=== PATIENT | female | born 1965 | race American Indian/Alaskan Native ===

== ENCOUNTER → 2017-03-18 | Outpatient (CLI) | payer BC ==
[~2017-03-18] MED LIST: ALBU2.5V4 INH; ALBU8.5HRX INH; AMLO5TAB2 PO; ASPI325T32 PO; BUPR1FIL3 PO; CLOR15TA PO; CLOR7.5T3 PO; FAMO20TA5 PO; FLUT1DIS26 IH; FOLI1TAB24 PO; LISI1TAB8 PO; MAGN400T6 PO; METO100T2 PO; MULT-166 PO; ONDA4TAB8 PO; PANT40TA PO; POLY255P PO; RANI150C4 PO; SULF-222 PO; THIA100T12 PO; TIOT18CA2 INH; TRET40CR2 TP; TRETINOIN TOP
--- NOTE | 2017-03-18 13:51 | Diagnostic Imaging Report ---
PROCEDURE: US abdomen complete. TECHNIQUE: Multiple real-time grayscale images were obtained over the abdomen in various projections. INDICATION: Pelvic and peroneal pain. Constipation. FINDINGS: The pancreas is obscured by bowel gas. The liver is hyperechoic and is enlarged measuring approximately 27 cm in craniocaudal/diagonal dimension. There is hepatopetal flow in the portal vein demonstrated. No focal hepatic mass. The gallbladder demonstrates no stones or wall thickening. No pericholecystic fluid. The sonographic Webb sign is reportedly negative. The CBD is obscured. The spleen is 9.5 cm in length. The right kidney is 11.2 and the left kidney is 10.8 cm in length. No hydronephrosis or focal lesion. No fluid collection is seen. The IVC is obscured. IMPRESSION: Hepatomegaly. The increased echogenicity in the liver could correlate with fatty infiltration or hepatitis. Correlate clinically. Dictated by: Dictated on workstation # [id number]
== END ==
LOC: RAD 09:17
PROVIDERS: ATTEND Nurse Practitioner Family
DX: R10.2 Pelvic and perineal pain (principal); K59.00 Constipation, unspecified; R14.0 Abdominal distension (gaseous); R10.11 Right upper quadrant pain; R10.12 Left upper quadrant pain; R16.0 Hepatomegaly, not elsewhere classified
CPT/HCPCS: 76700

== ENCOUNTER → 2017-03-19 | Outpatient (CLI) | payer BC ==
--- NOTE | 2017-03-19 17:56 | Diagnostic Imaging Report ---
Transabdominal and transvaginal percent. Indication bloating. Pelvic pain. History of hysterectomy Findings: There urinary bladder appears unremarkable. There is a no solid mass or focal lesion identified. No free fluid seen. The ovaries are reportedly surgically removed. Impression: No definite abnormality. Dictated by: Dictated on workstation # [id number]
== END ==
LOC: RAD 10:59
PROVIDERS: ATTEND Nurse Practitioner Family
DX: R10.2 Pelvic and perineal pain (principal); K59.00 Constipation, unspecified; R14.0 Abdominal distension (gaseous); R10.11 Right upper quadrant pain; R10.12 Left upper quadrant pain
CPT/HCPCS: 76830; 76856

== ENCOUNTER → 2017-12-15 | Outpatient (CLI) | payer BC ==
[~2017-12-15] MED LIST changes: +CATHETER FLUSH 10 ML SYR IV PRN; +IOHEXOL 350 MG/ML 100 ML (OMNIPAQUE 350) VIAL IV ONE; +NS 100 ML (IVPB) BAG IV ONE
[2017-12-15 13:51] LABS: BUN/CREATININE RATIO 13; CREATININE SERUM 0.79 MG/DL (0.60-1.30); GFR ESTIMATED > 60
--- NOTE | 2017-12-15 15:52 | Diagnostic Imaging Report ---
PROCEDURE: CT abdomen with contrast only. TECHNIQUE: Multiple contiguous axial images were obtained through the abdomen after the administration of intravenous contrast. INDICATION: Left upper quadrant pain, abdominal bloating, tenderness, and nausea. COMPARISON: 06/24/2016. FINDINGS: The lung bases are clear. Fatty hepatomegaly is an unchanged finding without biliary dilatation or visualized stone. The nonfocal spleen is unremarkable. The stomach is nondilated. There is some air within the abdominal small and large bowel without significant luminal dilatation. There is no ascites, abscess, hematoma, pneumatosis, or free air. The unobstructed kidneys are nonacute. The adrenals and pancreas are negative. The atherosclerotic aorta is nonaneurysmal. IMPRESSION: Fatty liver at the upper limits of size. Stable negative spleen. No bowel obstruction, ascites, or fluid collection. No free air. Negative unobstructed kidneys. Dictated by: Dictated on workstation # [id number]
--- NOTE | 2017-12-15 18:57 | Diagnostic Imaging Report ---
PROCEDURE: US right lower extremity venous. TECHNIQUE: Multiple real-time grayscale images were obtained over the right lower extremity in various projections. Additional duplex Doppler and color Doppler images were also obtained. INDICATION: Leg pain. COMPARISON: There are no prior studies available for comparison. FINDINGS: There is generally good blood flow and compressibility at all levels. There is no evidence for deep venous thrombosis. IMPRESSION: There is no evidence for deep venous thrombosis of the right lower extremity. Dictated by: Dictated on workstation # [id number]
== END ==
LOC: RAD 13:08
PROVIDERS: ATTEND Nurse Practitioner Family
DX: K76.0 Fatty (change of) liver, not elsewhere classified (principal); R14.0 Abdominal distension (gaseous); R11.0 Nausea
CPT/HCPCS: 36415; 74160; 82565; 84520

== ENCOUNTER → 2018-02-11 | Outpatient (CLI) | payer BC ==
[~2018-02-11] MED LIST changes: -CATHETER FLUSH 10 ML SYR IV PRN; -IOHEXOL 350 MG/ML 100 ML (OMNIPAQUE 350) VIAL IV ONE; -NS 100 ML (IVPB) BAG IV ONE
--- NOTE | 2018-02-11 13:24 | Diagnostic Imaging Report ---
INDICATION: Left lower chest pain. EXAMINATION: PA and lateral chest. FINDINGS: Heart size and pulmonary vascularity are normal. Lungs are clear. There are no effusions or pneumothoraces. IMPRESSION: Negative chest. Dictated by: Dictated on workstation # [id number]
--- NOTE | 2018-02-11 13:59 | Diagnostic Imaging Report ---
INDICATION: Back pain. Thoracic spine. FINDINGS: AP and lateral views of the thoracic spine show normal vertebral body height and alignment. Disc spaces are well maintained. Pedicles appear normal. IMPRESSION: Negative thoracic spine. Dictated by: Dictated on workstation # [id number]
== END ==
LOC: RAD 12:56
PROVIDERS: ATTEND Nurse Practitioner Family
DX: R07.89 Other chest pain (principal); M47.24 Other spondylosis with radiculopathy, thoracic region
CPT/HCPCS: 71046; 72072

== ENCOUNTER 2018-09-07 12:38 | Day surgery (SDC) | payer BC ==
[2018-09-07] VITALS (10 sets, daily range): BP systolic 113–176; BP diastolic 66–99
[~2018-09-07] VITALS: Ht 165.1 cm; Wt 98.9 kg
[~2018-09-07 12:38] MED LIST changes: -AMLO5TAB2 PO; +AMLO5TAB7 PO
--- OUTSIDE RECORDS SUMMARY | 2018-09-07 12:42 | XMS REPORT | Continuity of Care Document ---
Author Author [facility] Address Unknown Phone Unavailable Allergies Active Description Code Type Severity Reaction Onset Reported/Identified Relationship to Patient Clinical Status Yes doxycycline Drug Allergy 11/28/2009 Yes NKANo Known Allergies NKA Miscellaneous Allergy Unknown N/A 06/05/2015 Medications There is no data. Problems Date Dx Coded Attending Type Code Diagnosis Diagnosed By 04/13/2008 REYES GODINEZ DO 296.90 UNSPECIFIED EPISODIC MOOD DISORDER 10/11/2008 REYES GODINEZ DO 729.1 MYALGIA AND MYOSITIS UNSPECIFIED 11/13/2008 REYES GODINEZ DO 338.4 PAIN CHRONIC SYNDROME 11/13/2008 REYES GODINEZ DO 465.9 UPPER RESPIRATORY INFECTION 05/09/2009 REYES GODINEZ DO 716.90 ARTHRITIS/ ARTHROPATHY, UNSPECIFIED 06/27/2009 REYES GODINEZ DO 842.00 SPRAIN/STRAIN WRIST 11/28/2009 REYES GODINEZ DO 466.0 ACUTE BRONCHITIS 03/01/2010 REYES GODINEZ DO 535.50 GASTRITIS UNSPEC 03/01/2010 REYES GODINEZ DO 729.5 PAIN IN LIMB 10/02/2012 REYES GODINEZ DO V65.42 COUNSELING - SMOKING CESSATION 04/19/2015 TARA GARY MD Ot 305.1 TOBACCO USE DISORDER 04/19/2015 TARA GARY MD Ot 401.9 HYPERTENSION NOS 04/19/2015 TARA GARY MD Ot 496 CHR AIRWAY OBSTRUCT NEC 04/19/2015 TARA GARY MD Ot 518.0 PULMONARY COLLAPSE 04/19/2015 TARA GARY MD Ot 786.50 CHEST PAIN NOS 04/19/2015 TARA GARY MD Ot 790.29 OTHER ABNORMAL GLUCOSE 04/19/2015 TARA GARY MD Ot V03.82 PROPHYLACTIC VACC AGAINST STREPTOCOCCUS 04/19/2015 TARA GARY MD Ot 305.1 04/19/2015 TARA GARY MD Ot 401.9 04/19/2015 COOKIE SUERO, TARA Cerda Ot 496 04/19/2015 COOKIE SUERO, TARA Cerda Ot 518.0 04/19/2015 COOKIE SUERO, TARA Cerda Ot 786.50 04/19/2015 COOKIE SUERO, TARA Cerda Ot 790.29 04/19/2015 TARA GARY MD Ot V03.82 06/01/2015 CUBA COSTAE A SAP MOBILITY ARCHITECT Ot 397.0 06/01/2015 CUBA COSTAE A SAP MOBILITY ARCHITECT Ot 424.0 06/01/2015 IGOR MEICHELLE A SAP MOBILITY ARCHITECT Ot 785.1 06/01/2015 LANE OCSTACHELLE A SAP MOBILITY ARCHITECT Ot 786.05 06/05/2015 CUBA COSTAE A SAP MOBILITY ARCHITECT Ot 397.0 06/05/2015 CUBA COSTAE A SAP MOBILITY ARCHITECT Ot 424.0 06/05/2015 CUBA COSTAE A SAP MOBILITY ARCHITECT Ot 785.1 06/05/2015 IGOR CUBAE A SAP MOBILITY ARCHITECT Ot 786.05 06/05/2015 TARA GARY MD Ot V72.84 06/05/2015 TARA GARY MD Ot 305.1 TOBACCO USE DISORDER 06/05/2015 TARA GARY MD Ot 535.51 UNSPEC GASTRITIS GASTRODUODENITIS, W/ 06/05/2015 TARA GARY MD Ot 553.3 DIAPHRAGMATIC HERNIA 06/05/2015 TARA GARY MD Ot E935.3 ADV EFF SALICYLATES 06/05/2015 TARA GARY MD Ot V76.51 SCREEN MAL NEOP-COLON 06/18/2015 IGOR CUBAE A SAP MOBILITY ARCHITECT Ot 397.0 06/18/2015 IGOR CUBAE A SAP MOBILITY ARCHITECT Ot 424.0 06/18/2015 IGOR CUBAE A SAP MOBILITY ARCHITECT Ot 785.1 06/18/2015 IGOR CUBAE A SAP MOBILITY ARCHITECT Ot 786.05 06/18/2015 TARA GARY MD Ot V72.84 07/30/2015 LISSET BUSBY Ot F10.239 ALCOHOL DEPENDENCE WITH WITHDRAWAL, UNSP 07/30/2015 LISSET BUSBY Ot F17.210 NICOTINE DEPENDENCE, CIGARETTES, UNCOMPL 07/30/2015 LISSET BUSBY Ot F41.0 PANIC DISORDER WITHOUT AGORAPHOBIA 07/30/2015 LISSET BUSBY Ot I10 ESSENTIAL (PRIMARY) HYPERTENSION 07/30/2015 LISSET BUSBY Ot R00.2 PALPITATIONS 07/30/2015 LISSET BUSBY Ot Z91.14 PATIENT'S OTHER NONCOMPLIANCE WITH MEDIC 06/23/2016 IGORSHANTELL SAP MOBILITY ARCHITECT Ot 397.0 TRICUSPID VALVE DISEASE 06/23/2016 SHANTELL COSTA SAP MOBILITY ARCHITECT Ot 424.0 MITRAL VALVE DISORDER 06/23/2016 IGORSHANTELL SAP MOBILITY ARCHITECT Ot 785.1 PALPITATIONS 06/23/2016 IGORSHANTELL SAP MOBILITY ARCHITECT Ot 786.05 SHORTNESS OF BREATH 06/23/2016 COOKIE SUERO, TARA Cerda Ot V72.84 EXAM PRE-OPERATIVE NOS 06/25/2016 AR DOBROOKE Ot R14.0 ABDOMINAL DISTENSION (GASEOUS) 06/25/2016 BROOKE JOYNER DO Ot Z12.31 ENCNTR SCREEN MAMMOGRAM FOR MALIGNANT NE 07/02/2016 BROOKE JOYNER DO Ot R14.0 ABDOMINAL DISTENSION (GASEOUS) 07/02/2016 BROOKE JOYNER DO Ot Z12.31 ENCNTR SCREEN MAMMOGRAM FOR MALIGNANT NE 07/02/2016 BROOKE JOYNER DO D Ot J98.11 ATELECTASIS 07/02/2016 AR DO BROOKE D Ot R14.0 ABDOMINAL DISTENSION (GASEOUS) 07/23/2016 AR DO BROOKE D Ot R92.8 OTH ABN AND INCONCLUSIVE FINDINGS ON DX 07/24/2016 AR DO BROOKE D Ot R92.8 OTH ABN AND INCONCLUSIVE FINDINGS ON DX 08/06/2016 PRAFULBERGER DO BROOKE D Ot R92.8 OTH ABN AND INCONCLUSIVE FINDINGS ON DX 03/17/2017 BROOKE JOYNER DO D Ot R14.0 ABDOMINAL DISTENSION (GASEOUS) 03/17/2017 BROOKE JOYNER DO Ot Z12.31 ENCNTR SCREEN MAMMOGRAM FOR MALIGNANT NE 03/17/2017 BROOKE JOYNER DO D Ot R92.8 OTH ABN AND INCONCLUSIVE FINDINGS ON DX 03/19/2017 HEIDI HARTLEY HIDE WORKER Ot K59.00 CONSTIPATION, UNSPECIFIED 03/19/2017 NAEEM, HEIDI N HIDE WORKER Ot R10.11 RIGHT UPPER QUADRANT PAIN 03/19/2017 NAEEM, HEIDI N HIDE WORKER Ot R10.12 LEFT UPPER QUADRANT PAIN 03/19/2017 NAEEM, HEIDI N HIDE WORKER Ot R10.2 PELVIC AND PERINEAL PAIN 03/19/2017 NAEEM, HEIDI N HIDE WORKER Ot R14.0 ABDOMINAL DISTENSION (GASEOUS) 03/19/2017 NAEEM, HEIDI N HIDE WORKER Ot R16.0 HEPATOMEGALY, NOT ELSEWHERE CLASSIFIED 03/21/2017 NAEEM, HEIDI N HIDE WORKER Ot K59.00 CONSTIPATION, UNSPECIFIED 03/21/2017 NAEEM, HEIDI N HIDE WORKER Ot R10.11 RIGHT UPPER QUADRANT PAIN 03/21/2017 NAEEM, HEIDI N HIDE WORKER Ot R10.12 LEFT UPPER QUADRANT PAIN 03/21/2017 NAEEM, HEIDI N HIDE WORKER Ot R10.2 PELVIC AND PERINEAL PAIN 03/21/2017 NAEEM, HEIDI N HIDE WORKER Ot R14.0 ABDOMINAL DISTENSION (GASEOUS) 03/25/2017 NAEEM, HEIDI N HIDE WORKER Ot K59.00 CONSTIPATION, UNSPECIFIED 03/25/2017 NAEEM, HEIDI N HIDE WORKER Ot R10.11 RIGHT UPPER QUADRANT PAIN 03/25/2017 NAEEM, HEIDI N HIDE WORKER Ot R10.12 LEFT UPPER QUADRANT PAIN 03/25/2017 NAEEM, HEIDI N HIDE WORKER Ot R10.2 PELVIC AND PERINEAL PAIN 03/25/2017 NAEEM, HEIDI N HIDE WORKER Ot R14.0 ABDOMINAL DISTENSION (GASEOUS) 03/25/2017 NAEEM, HEIDI N HIDE WORKER Ot R16.0 HEPATOMEGALY, NOT ELSEWHERE CLASSIFIED 03/25/2017 ANEEM, HEIDI N HIDE WORKER Ot K59.00 CONSTIPATION, UNSPECIFIED 03/25/2017 NAEEM, HEIDI N HIDE WORKER Ot R10.11 RIGHT UPPER QUADRANT PAIN 03/25/2017 NAEEM, HEIDI N HIDE WORKER Ot R10.12 LEFT UPPER QUADRANT PAIN 03/25/2017 NAEEM, HEIDI N HIDE WORKER Ot R10.2 PELVIC AND PERINEAL PAIN 03/25/2017 NAEEM, HEIDI N HIDE WORKER Ot R14.0 ABDOMINAL DISTENSION (GASEOUS) 03/25/2017 NAEEM, HEIDI N HIDE WORKER Ot K59.00 CONSTIPATION, UNSPECIFIED 03/25/2017 NAEEM, HEIDI N HIDE WORKER Ot R10.11 RIGHT UPPER QUADRANT PAIN 03/25/2017 NAEEM, HEIDI N HIDE WORKER Ot R10.12 LEFT UPPER QUADRANT PAIN 03/25/2017 NAEEM, HEIDI N HIDE WORKER Ot R10.2 PELVIC AND PERINEAL PAIN 03/25/2017 HEIDI HARTLEY Yuan HIDE WORKER Ot R14.0 ABDOMINAL DISTENSION (GASEOUS) 03/25/2017 NAEEM HEIDI Bolden HIDE WORKER Ot R16.0 HEPATOMEGALY, NOT ELSEWHERE CLASSIFIED 03/25/2017 HEIDI HARTLEY Yuan HIDE WORKER Ot K59.00 CONSTIPATION, UNSPECIFIED 03/25/2017 HEIDI HARTLEY Yuan HIDE WORKER Ot R10.11 RIGHT UPPER QUADRANT PAIN 03/25/2017 NAEEM HEIDI Bolden HIDE WORKER Ot R10.12 LEFT UPPER QUADRANT PAIN 03/25/2017 NAEEM HEIDI Bolden HIDE WORKER Ot R10.2 PELVIC AND PERINEAL PAIN 03/25/2017 NAEEM HEIDI Bolden HIDE WORKER Ot R14.0 ABDOMINAL DISTENSION (GASEOUS) 04/01/2017 HEIDI HARTLEY HIDE WORKER Ot K59.00 CONSTIPATION, UNSPECIFIED 04/01/2017 NAEEMHEIDI HIDE WORKER Ot R10.11 RIGHT UPPER QUADRANT PAIN 04/01/2017 NAEEM HEIDI Bolden HIDE WORKER Ot R10.12 LEFT UPPER QUADRANT PAIN 04/01/2017 HEIDI HARTLEY HIDE WORKER Ot R10.2 PELVIC AND PERINEAL PAIN 04/01/2017 NAEEMHEIDI HIDE WORKER Ot R14.0 ABDOMINAL DISTENSION (GASEOUS) 04/01/2017 HEIDI HARTLEY Yuan HIDE WORKER Ot R16.0 HEPATOMEGALY, NOT ELSEWHERE CLASSIFIED 04/01/2017 NAEEM HEIDI Bolden HIDE WORKER Ot K59.00 CONSTIPATION, UNSPECIFIED 04/01/2017 NAEEM HEIDI Yuan HIDE WORKER Ot R10.11 RIGHT UPPER QUADRANT PAIN 04/01/2017 HEIDI HARTLEY Yuan HIDE WORKER Ot R10.12 LEFT UPPER QUADRANT PAIN 04/01/2017 HEIDI HARTLEY HIDE WORKER Ot R10.2 PELVIC AND PERINEAL PAIN 04/01/2017 HEIDI HARTLEY HIDE WORKER Ot R14.0 ABDOMINAL DISTENSION (GASEOUS) 12/07/2017 BROOKE JOYNER DO Ot R14.0 ABDOMINAL DISTENSION (GASEOUS) 12/07/2017 BROOKE JOYNER DO Ot Z12.31 ENCNTR SCREEN MAMMOGRAM FOR MALIGNANT NE 12/07/2017 BROOKE JOYNER DO Ot R92.8 OTH ABN AND INCONCLUSIVE FINDINGS ON DX 12/07/2017 HEIDI HARTLEY HIDE WORKER Ot K59.00 CONSTIPATION, UNSPECIFIED 12/07/2017 HEIDI HARTLEY HIDE WORKER Ot R10.11 RIGHT UPPER QUADRANT PAIN 12/07/2017 NAEEM, HEIDI N HIDE WORKER Ot R10.12 LEFT UPPER QUADRANT PAIN 12/07/2017 NAEEM, HEIDI N HIDE WORKER Ot R10.2 PELVIC AND PERINEAL PAIN 12/07/2017 NAEEM, HEIDI N HIDE WORKER Ot R14.0 ABDOMINAL DISTENSION (GASEOUS) 12/07/2017 HEIDI HARTLEY N HIDE WORKER Ot R16.0 HEPATOMEGALY, NOT ELSEWHERE CLASSIFIED 12/07/2017 HEIDI HARTLEY N HIDE WORKER Ot K59.00 CONSTIPATION, UNSPECIFIED 12/07/2017 HEIDI HARTLEY N HIDE WORKER Ot R10.11 RIGHT UPPER QUADRANT PAIN 12/07/2017 HEIDI HARTLEY N HIDE WORKER Ot R10.12 LEFT UPPER QUADRANT PAIN 12/07/2017 NAEEM, HEIDI N HIDE WORKER Ot R10.2 PELVIC AND PERINEAL PAIN 12/07/2017 NAEEM HEIDI N HIDE WORKER Ot R14.0 ABDOMINAL DISTENSION (GASEOUS) 12/09/2017 BROOKE JOYNER DO Ot R14.0 ABDOMINAL DISTENSION (GASEOUS) 12/09/2017 BROOKE JOYNER DO Ot Z12.31 ENCNTR SCREEN MAMMOGRAM FOR MALIGNANT NE 12/09/2017 BROOKE JOYNER DO Ot R92.8 OTH ABN AND INCONCLUSIVE FINDINGS ON DX 12/09/2017 HEIDI HARTLEY Yuan HIDE WORKER Ot K59.00 CONSTIPATION, UNSPECIFIED 12/09/2017 HEIDI HARTLEY N HIDE WORKER Ot R10.11 RIGHT UPPER QUADRANT PAIN 12/09/2017 HEIDI HARTLEY N HIDE WORKER Ot R10.12 LEFT UPPER QUADRANT PAIN 12/09/2017 HEIDI HARTLEY Yuan HIDE WORKER Ot R10.2 PELVIC AND PERINEAL PAIN 12/09/2017 NAEEM HEIDI Yuan HIDE WORKER Ot R14.0 ABDOMINAL DISTENSION (GASEOUS) 12/09/2017 HEIDI HARTLEY Yuan HIDE WORKER Ot R16.0 HEPATOMEGALY, NOT ELSEWHERE CLASSIFIED 12/09/2017 HEIDI HARTLEY N HIDE WORKER Ot K59.00 CONSTIPATION, UNSPECIFIED 12/09/2017 HEIDI HARTLEY N HIDE WORKER Ot R10.11 RIGHT UPPER QUADRANT PAIN 12/09/2017 HEIDI HARTLEY N HIDE WORKER Ot R10.12 LEFT UPPER QUADRANT PAIN 12/09/2017 NAEEM, HEIDI N HIDE WORKER Ot R10.2 PELVIC AND PERINEAL PAIN 12/09/2017 HEIDI HARTLEY N HIDE WORKER Ot R14.0 ABDOMINAL DISTENSION (GASEOUS) 12/16/2017 NAEEM HEIDI N HIDE WORKER Ot K76.0 FATTY (CHANGE OF) LIVER, NOT ELSEWHERE C 12/16/2017 HEIDI HARTLEY Yuan HIDE WORKER Ot R11.0 NAUSEA 12/16/2017 HEIDI HARTLEY N HIDE WORKER Ot R14.0 ABDOMINAL DISTENSION (GASEOUS) 12/30/2017 HEIDI HARTLEY Yuan HIDE WORKER Ot K76.0 FATTY (CHANGE OF) LIVER, NOT ELSEWHERE C 12/30/2017 HEIDI HARTLEY N HIDE WORKER Ot R11.0 NAUSEA 12/30/2017 HEIDI HARTLEY Yuan HIDE WORKER Ot R14.0 ABDOMINAL DISTENSION (GASEOUS) 02/25/2018 HEIDI HARTLEY N HIDE WORKER Ot 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, TH 02/25/2018 HEIDI HARTLEY N HIDE WORKER Ot R07.89 OTHER CHEST PAIN 05/31/2018 BROOKE JOYNER DO Ot R14.0 ABDOMINAL DISTENSION (GASEOUS) 05/31/2018 BROOKE JOYNER DO Ot Z12.31 ENCNTR SCREEN MAMMOGRAM FOR MALIGNANT NE 05/31/2018 BROOKE JOYNER DO Ot R92.8 OTH ABN AND INCONCLUSIVE FINDINGS ON DX 05/31/2018 HEIDI HARTLEY Yuan HIDE WORKER Ot K59.00 CONSTIPATION, UNSPECIFIED 05/31/2018 HEIDI HARTLEY N HIDE WORKER Ot R10.11 RIGHT UPPER QUADRANT PAIN 05/31/2018 NAEEM HEIDI N HIDE WORKER Ot R10.12 LEFT UPPER QUADRANT PAIN 05/31/2018 NAEEM HEIDI N HIDE WORKER Ot R10.2 PELVIC AND PERINEAL PAIN 05/31/2018 HEIDI HARTLEY N HIDE WORKER Ot R14.0 ABDOMINAL DISTENSION (GASEOUS) 05/31/2018 NAEEM HEIDI Yuan HIDE WORKER Ot R16.0 HEPATOMEGALY, NOT ELSEWHERE CLASSIFIED 05/31/2018 HEIDI HARTLEY Yuan HIDE WORKER Ot K59.00 CONSTIPATION, UNSPECIFIED 05/31/2018 NAEEM HEIDI N HIDE WORKER Ot R10.11 RIGHT UPPER QUADRANT PAIN 05/31/2018 NAEEM HEIDI N HIDE WORKER Ot R10.12 LEFT UPPER QUADRANT PAIN 05/31/2018 NAEEM HEIDI N HIDE WORKER Ot R10.2 PELVIC AND PERINEAL PAIN 05/31/2018 NAEEM, HEIDI N HIDE WORKER Ot R14.0 ABDOMINAL DISTENSION (GASEOUS) 05/31/2018 HEIDI HARTLEY Yuan HIDE WORKER Ot K76.0 FATTY (CHANGE OF) LIVER, NOT ELSEWHERE C 05/31/2018 HEIDI HARTLEY N HIDE WORKER Ot R11.0 NAUSEA 05/31/2018 NAEEM HEIDI Bolden HIDE WORKER Ot R14.0 ABDOMINAL DISTENSION (GASEOUS) 05/31/2018 NAEEM HEIDI Bolden HIDE WORKER Ot 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, TH 05/31/2018 NAEEM HEIDI Bolden HIDE WORKER Ot R07.89 OTHER CHEST PAIN 06/04/2018 DEFFENBAUGH DO, KONG D Ot K57.30 DVRTCLOS OF LG INT W/O PERFORATION OR AB 06/04/2018 DEFFENBAUGH DO, OKNG D Ot K76.0 FATTY (CHANGE OF) LIVER, NOT ELSEWHERE C 06/04/2018 DEFFENBAUGH DO, KONG D Ot R14.0 ABDOMINAL DISTENSION (GASEOUS) 06/04/2018 DEFFENBAUGH DO, KONG D Ot R19.7 DIARRHEA, UNSPECIFIED 06/16/2018 DEFFENBAUGH DO, KONG D Ot D64.9 ANEMIA, UNSPECIFIED 06/16/2018 DEFFENBAUGH DO, KONG D Ot K76.9 LIVER DISEASE, UNSPECIFIED 06/16/2018 DEFFENBAUGH DO, KONG D Ot R16.0 HEPATOMEGALY, NOT ELSEWHERE CLASSIFIED 06/16/2018 DEFFENBAUGH DO, KONG D Ot R53.83 OTHER FATIGUE 06/16/2018 DEFFENBAUGH DO, KONG D Ot R68.2 DRY MOUTH, UNSPECIFIED 06/16/2018 DEFFENBAUGH DO, KONG D Ot R79.9 ABNORMAL FINDING OF BLOOD CHEMISTRY, UNS 06/16/2018 DEFFENBAUGH DO, KONG D Ot K57.30 DVRTCLOS OF LG INT W/O PERFORATION OR AB 06/16/2018 DEFFENBAUGH DO, KONG D Ot K76.0 FATTY (CHANGE OF) LIVER, NOT ELSEWHERE C 06/16/2018 DEFFENBAUGH DO, KONG D Ot R14.0 ABDOMINAL DISTENSION (GASEOUS) 06/16/2018 DEFFENBAUGH DO, KONG D Ot R19.7 DIARRHEA, UNSPECIFIED Procedures There is no data. Results Test Result Range [id number] - 06/24/16 11:05 Serum or plasma urea nitrogen measurement (mass/volume) 9 mg/dL 7-18 Serum or plasma creatinine measurement (mass/volume) 0.99 mg/dL 0.60-1.30 Serum or plasma urea nitrogen/creatinine mass ratio 9 NRG Serum or plasma creatinine measurement with calculation of estimated glomerular filtration rate 59 NRG [id number] - 12/15/17 13:26 Serum or plasma urea nitrogen measurement (mass/volume) 10 mg/dL 7-18 Serum or plasma creatinine measurement (mass/volume) 0.79 mg/dL 0.60-1.30 Serum or plasma urea nitrogen/creatinine mass ratio 13 NRG Serum or plasma creatinine measurement with calculation of estimated glomerular filtration rate > NRG Complete blood count (CBC) with automated white blood cell (WBC) differential - 05/31/18 16:20 Blood leukocytes automated count (number/volume) 7.2 10*3/uL 4.3-11.0 Blood erythrocytes automated count (number/volume) 4.45 10*6/uL 4.35-5.85 Venous blood hemoglobin measurement (mass/volume) 14.7 g/dL 11.5-16.0 Blood hematocrit (volume fraction) 44 % 35-52 Automated erythrocyte mean corpuscular volume 99 [foz_us] 80-99 Automated erythrocyte mean corpuscular hemoglobin (mass per erythrocyte) 33 pg 25-34 Automated erythrocyte mean corpuscular hemoglobin concentration measurement ( mass/volume) 34 g/dL 32-36 Automated erythrocyte distribution width ratio 13.5 % 10.0-14.5 Automated blood platelet count (count/volume) 247 10*3/uL 130-400 Automated blood platelet mean volume measurement 9.2 [foz_us] 7.4-10.4 Automated blood neutrophils/100 leukocytes 70 % 42-75 Automated blood lymphocytes/100 leukocytes 23 % 12-44 Blood monocytes/100 leukocytes 5 % 0-12 Automated blood eosinophils/100 leukocytes 2 % 0-10 Automated blood basophils/100 leukocytes 0 % 0-10 Blood neutrophils automated count (number/volume) 5.0 10*3 1.8-7.8 Blood lymphocytes automated count (number/volume) 1.6 10*3 1.0-4.0 Blood monocytes automated count (number/volume) 0.4 10*3 0.0-1.0 Automated eosinophil count 0.1 10*3/uL 0.0-0.3 Automated blood basophil count (count/volume) 0.0 10*3/uL 0.0-0.1 Comprehensive metabolic panel - 05/31/18 16:20 Serum or plasma sodium measurement (moles/volume) 139 mmol/L 135-145 Serum or plasma potassium measurement (moles/volume) 3.7 mmol/L 3.6-5.0 Serum or plasma chloride measurement (moles/volume) 97 mmol/L 98-107 Carbon dioxide 32 mmol/L 21-32 Serum or plasma anion gap determination (moles/volume) 10 mmol/L 5-14 Serum or plasma urea nitrogen measurement (mass/volume) 7 mg/dL 7-18 Serum or plasma creatinine measurement (mass/volume) 0.79 mg/dL 0.60-1.30 Serum or plasma urea nitrogen/creatinine mass ratio 9 NRG Serum or plasma creatinine measurement with calculation of estimated glomerular filtration rate > NRG Serum or plasma glucose measurement (mass/volume) 123 mg/dL 70-105 Serum or plasma calcium measurement (mass/volume) 9.6 mg/dL 8.5-10.1 Serum or plasma total bilirubin measurement (mass/volume) 0.7 mg/dL 0.1-1.0 Serum or plasma alkaline phosphatase measurement (enzymatic activity/volume) 126 U/L 40-136 Serum or plasma aspartate aminotransferase measurement (enzymatic activity/ volume) 81 U/L 5-34 Serum or plasma alanine aminotransferase measurement (enzymatic activity/volume ) 57 U/L 0-55 Serum or plasma protein measurement (mass/volume) 6.6 g/dL 6.4-8.2 Serum or plasma albumin measurement (mass/volume) 4.0 g/dL 3.2-4.5 CALCIUM CORRECTED 9.6 mg/dL 8.5-10.1 Serum or plasma C reactive protein measurement (mass/volume) - 05/31/18 16:20 Serum or plasma C reactive protein measurement (mass/volume) 2.33 mg /dL 0.00-0.50 Erythrocyte sedimentation rate by westergren method - 05/31/18 16:20 Erythrocyte sedimentation rate by westergren method 6 mm 0-30 Acute hepatitis panel - 05/31/18 16:20 Confirmatory quantitative serum or plasma hepatitis B virus surface antigen measurement Non-Reactive Non-Reactive Hepatitis A virus IgM antibody assay Non-Reactive Non- Reactive Hepatitis B virus core IgM antibody assay Non-Reactive Non-Reactive Serum hepatitis C virus antibody detection Non-Reactive Non-Reactive Scl-70 antibody assay - 05/31/18 16:20 [id number] Negative Negative Scl-70 ab < % 0.0-19.9 Serum or plasma porphyrins measurement (mass/volume) - 05/31/18 16:20 PORPHYRINS TOTAL SERUM <10 0-15 Interpretation of serum or plasma porphyrins measurement Negative NRG Encounters ACCT No. Visit Date/Time Discharge Status Pt. Type Provider Facility Loc./Unit Complaint [id number] 10/02/2012 09:30:00 10/02/2012 23:59:59 CLS Outpatient REYES GODINEZ DO [id number] 06/05/2015 08:36:13 ACT Document Registration [id number] 06/03/2018 08:59:00 06/03/2018 23:59:59 CLS Outpatient DEFFENBAKONG FERRELL DO [facility] RAD LEFT UPPER QUAD PAIN, LARGE LIVER,DIARRHEA [id number] 05/31/2018 15:51:00 05/31/2018 23:59:59 CLS Outpatient DEFFENKONG LANCE DO [facility] LAB LEFT UPPER QUADRANT PAIN [id number] 02/11/2018 12:56:00 02/11/2018 23:59:59 CLS Outpatient HEIDI HARTLEY HIDE WORKER [facility] RAD SPONDYLOSIS WITH RIDICULOPATHY [id number] 12/15/2017 13:08:00 12/15/2017 23:59:59 CLS Outpatient HEIDI HARTLEY HIDE WORKER [facility] RAD R10.12 LUQ PAIN [id number] 08/31/2017 08:29:00 08/31/2017 23:59:59 CLS Preadmit HEIDI HARTLEY HIDE WORKER [facility] RAD ACUTE EMBOLISM [id number] 07/23/2017 07:41:00 07/23/2017 23:59:59 CLS Preadmit HEIDI HARTLEY HIDE WORKER [facility] RAD SCREENING [id number] 03/19/2017 10:59:00 03/19/2017 23:59:59 CLS Outpatient HEIDI HARTLEY HIDE WORKER [facility] RAD PELVIC AND PERINEAL PAIN , CONSTIPATION [id number] 03/18/2017 09:17:00 03/18/2017 23:59:59 CLS Outpatient HEIDI HARTLEY HIDE WORKER [facility] RAD PELVIC AND PERINEAL PAIN , CONSTIPATION [id number] 07/23/2016 13:43:00 07/23/2016 23:59:59 CLS Outpatient BROOKE JOYNER DO Prashant [facility] RAD OTHER ABNORMAL FINDINGS ON DX [id number] 06/24/2016 11:02:00 06/24/2016 23:59:59 CLS Outpatient BROOKE JOYNER DO Prashant [facility] RAD ABDOMINAL DISTENSION [id number] 06/24/2016 10:52:00 06/24/2016 23:59:59 CLS Outpatient BROOKE JOYNER DO Prashant [facility] RAD SCREENING [id number] 07/30/2015 16:08:00 07/30/2015 19:46:00 DIS Emergency LISSET BUSBY [facility] ER HIGH BP/ALCOHOL WITHDRAWL [id number] 06/05/2015 08:35:00 06/05/2015 11:45:00 DIS Outpatient TARA GARY MD [facility] SDC SCREENING;GERD [id number] 06/01/2015 05:49:00 06/01/2015 23:59:59 CLS Outpatient TARA GARY MD [facility] PREOP SCREENING;GERD [id number] 04/18/2015 23:05:00 04/19/2015 17:45:00 DIS Inpatient TARA GARY MD [facility] CSD CHEST PAIN [id number] 12/27/2013 09:01:00 12/27/2013 23:59:59 CLS Outpatient SHANTELL COSTA [facility] CARD PALPITATIONS,SOB [id number] 06/18/2015 13:48:00 Document Registration [id number] 06/18/2015 13:48:00 Document Registration [id number] 06/18/2015 13:48:00 Document Registration
[2018-09-07] MEDS ORDERED: LIDOCAINE 1% INJ 20 ML 20 ML VIAL ONE (12:58)
[2018-09-07] MEDS ORDERED: NS IV 1000 ML 1,000 ML ONE (12:58)
[2018-09-07] MEDS ORDERED: HEParin (CATH LAB) 2,000 ML IV ONE (12:58)
[2018-09-07] MEDS ORDERED: NS IV 1000 ML 1,000 ML IV SCH ×2 (13:10→14:52)
[2018-09-07 13:23] LABS: HEMOGLOBIN 15.7 G/DL (11.5-16.0); MEAN PLATELET VOLUME 9.4 FL (7.4-10.4); RED BLOOD COUNT 4.76 10^6/uL (4.35-5.85); RED CELL DISTRIBUTION WIDTH 13.5 % (10.0-14.5); WHITE BLOOD COUNT 8.2 10^3/uL (4.3-11.0)
[2018-09-07] MEDS ORDERED: METO100T12 PO (13:38)
[2018-09-07 13:39] LABS: INR 0.9 (0.8-1.4); PROTHROMBIN TIME PATIENT 12.6 SEC (12.2-14.7)
[2018-09-07] MEDS ORDERED: LISI1TAB8 PO (13:39)
[2018-09-07] MEDS ORDERED: CLOR3.755 PO (13:40)
[2018-09-07 13:43] LABS: ALANINE AMINOTRANSFERASE 55 U/L (0-55); ALBUMIN 4.4 GM/DL (3.2-4.5); ALKALINE PHOSPHATASE 117 U/L (40-136); BILIRUBIN,TOTAL 1.1 MG/DL (0.1-1.0); BUN/CREATININE RATIO 11; CALCIUM 9.9 MG/DL (8.5-10.1); CARBON DIOXIDE 30 MMOL/L (21-32); CHLORIDE 96 MMOL/L (98-107); CHOLESTEROL 199 MG/DL (< 200); GFR ESTIMATED > 60; GLUCOSE 137 MG/DL (70-105); HDL CHOLESTEROL 42 MG/DL (40-60); POTASSIUM 3.7 MMOL/L (3.6-5.0); SODIUM 140 MMOL/L (135-145); TOTAL PROTEIN 7.3 GM/DL (6.4-8.2); TRIGLYCERIDES 267 MG/DL (<150); VLDL CHOLESTEROL 53 MG/DL (5-40)
[2018-09-07] MEDS ORDERED: FLU QUADRIvalent (5+ YOA) 2018-2019 (AFLURIA) 0.5 ML IM ONE (13:45)
[2018-09-07] MEDS ORDERED: fentaNYL INJECTION 100 MCG/2 ML AMP ONE (13:52)
[2018-09-07] MEDS ORDERED: MIDAZOLAM 5 MG/5 ML (VERSED) VIAL ONE (13:52)
--- NOTE | 2018-09-07 14:23 | Cardiac Procedure Note-CS/ASA ---
Pre-Procedure Note Pre-Op Procedure Note H&P Reviewed The H&P was reviewed, patient examined and no changes noted. Date H&P Reviewed: Sep 07, 2018 Time H&P Reviewed: 14:23 Conscious Sedation Pre-Proced Time 14:23 ASA Score 3 For ASA 3 and 4: Consider anesthesia and medical clearance. Also, for patients with a history of failed moderate sedation consider anesthesia. Airway Lungs Heart ASA score ASA 1: a normal healthy patient ASA 2: a patient with a mild systemic disease (mid diabetes, controlled hypertension, obesity ASA 3: a patient with a severe systemic disease that limits activity (angina , COPD, prior Myocardial infarction) ASA 4: a patient with an incapacitating disease that is a constant threat to life (CHF, renal failure) ASA 5: a moribund patient not expected to survive 24 hrs. (ruptured aneurysm) ASA 6: a declared brain patient whose organs are being harvested. For emergent operations, add the letter E after the classification Mallampati Classification Grade 2 Sedation Plan Analgesia, Amnesia, Plan communicated to team members, Discussed options with patient/fam, Discussed risks with patient/fam The patient is an appropriate candidate to undergo the planned procedure, sedation, and anesthesia. The patient immediately re-assessed prior to indication. JESS CONLEY MD FACP FAC CCDS Sep 07, 2018 14:23
[2018-09-07] MEDS ORDERED: ASPI-999 PO (14:56)
[2018-09-07] MEDS ORDERED: POTA-53 PO (14:56)
[2018-09-07] MEDS ORDERED: FURO40TA4 PO (14:56)
--- NOTE | 2018-09-07 14:56 | Discharge Inst-Cardiology ---
Discharge Inst-Cardiac Discharge Medications New Medications: Aspirin (Aspirin) 81 Mg Tab.chew 81 MG PO DAILY, #90 TAB 3 Refills Furosemide (Furosemide) 40 Mg Tablet 40 MG PO DAILY, #30 TAB 5 Refills Potassium Chloride (K-Tab ER) 20 Meq Tablet.er 20 MEQ PO DAILY, #30 TAB 5 Refills Continued Medications: Albuterol Sulfate (Rx-Proair) 8 Gm Hfa.aer.ad 1 PUFF INH BID PRN for SHORTNESS OF BREATH Buprenorphine Hcl/Naloxone Hcl (Suboxone 8 Mg-2 Mg Sl Film) 1 Each Film 1 FILM PO TID PRN for PAIN Clorazepate Dipotassium (Clorazepate Dipotassium) 3.75 Mg Tablet 3.75 MG PO TID PRN for AGITATION, TAB Fluticasone/Salmeterol (Advair 250 Mcg/50 Mcg 60's) 1 Disk Inhp 1 IH BID Lisinopril/Hydrochlorothiazide (Lisinopril-Hctz 20-12.5 mg Tab) 1 Each Tablet 1 EACH PO BID, TAB Magnesium Oxide (Magnesium Oxide) 400 Mg Tablet 400 MG PO BID, #6 TAB 0 Refills Metoprolol Tartrate (Metoprolol Tartrate) 100 Mg Tablet 150 MG PO BID, TAB Ondansetron (Zofran Odt) 4 Mg Tab.rapdis 4 MG PO Q4H PRN for NAUSEA/VOMITING, #10 TAB 1 Refill Tiotropium [place] (Spiriva) 1 Inh Aerp 1 CAP INH DAILY Orders-Post D/C & Referrals Pneu Vac Indicated: Yes JESS CONLEY MD FACP FAC CCDS Sep 07, 2018 14:56
--- NOTE | 2018-09-07 14:57 | Discharge Inst-Post CATH ---
Discharge Inst-CATH Post Cardiac Cath D/C Inst Follow Up/Plan F/u with Dr Aggarwal in 2 weeks CARDIAC CATH DISCHARGE INSTRUCTIONS *Hold Metformin for 48 hours post heart cath. ACTIVITY * Go Home directly and rest. * Limit activity of the leg (or wrist if it was used) for 7 days including aerobics, swimming, jogging, bicycling, etc. * Restrict stair-climbing for 7 days if possible, if not, climb up with your non -cath leg, then bring together on the same step. * Avoid lifting, pushing, pulling or excessive movement of the affected extremity for 7 days. * Customary sexual activity may be resumed after 2 days-use caution not to use a position that strains or causes pain to the affected extremity. * No driving for 24 hours. * NO SMOKING. * Avoid straining for bowel movements for 7 days. * Gentle walking on level ground is allowed. * Returning to work will depend on the type of procedure and the results. Your doctor will discuss this with you. CALL YOUR DOCTOR FOR ANY OF THE FOLLOWING: *If bleeding from the puncture site occurs- Apply gentle pressure to site with clean cloth and call your doctor or EMS. * If a knot or lump forms under the skin, increases in size, or causes pain. * If bruising appears to be worsening or moving further down your leg instead of disappearing. * Temperature above 101 F. CARE OF YOUR GROIN INCISION; * Bruising or purple discoloration of the skin near the puncture site is common. * You may shower only, no bathtub bathing for 5 days. Be careful to avoid slipping as your leg may feel stiff. * If a closure device was used on your femoral artery, please see the attached guide regarding care of the device and your leg. * Leave the dressing on, until removed by office staff. CARE OF YOUR WRIST INCISION; * Bruising or purple discoloration of the skin near the puncture site is common. * You may shower. * DO NOT submerge wrist. * Leave dressing on, until removed by office staff.. JESS AGGARWAL MD [facility] Sep 07, 2018 14:57
[2018-09-07] MEDS ORDERED: PATIENT MAY USE OWN MEDS, ALL PO SCH (15:00)
--- NOTE | 2018-09-07 18:02 | CARDIAC CATHETERIZATION ---
DATE OF SERVICE: 09/07/2018 CARDIAC CATHETERIZATION REPORT The patient is a 53-year-old lady with multiple coronary artery disease risk factors, who has been experiencing symptoms of chest discomfort and shortness of breath that are consistent with exertional angina. She also has palpitations. Cardiac catheterization was carried out today after having obtained an informed consent. PROCEDURE IN DETAIL: She was brought to the cardiac catheterization laboratory in a fasting state. Right groin was prepared and draped in the usual sterile fashion. Lidocaine 1% was used for local anesthesia. Modified Seldinger technique was used to advance a 5-Bengali sheath in the right femoral artery, a 5-Bengali JL4 catheter for left coronary angiography and 5-Bengali JR4 catheter for right coronary angiography and a 5-Bengali pigtail catheter was used for left heart catheterization and left ventricular angiography. Pigtail was pulled back to the aortic arch and the aortic arch angiography was performed. Pigtail was removed. Angiography of the right femoral artery had been carried out through the sheath at the time of sheath insertion. At the end of the procedure, Mynx was used to achieve hemostasis following sheath removal. She tolerated the procedure well. HEMODYNAMICS: Left ventricular end-diastolic pressure following coronary angiography was 32 mmHg. There is no significant pressure gradient on pullback across the aortic valve. Ascending aortic pressure was 148/90 with a mean of 114 mmHg. CORONARY ANGIOGRAPHY: Left main coronary artery is free of significant disease. Left anterior descending artery is free of significant disease. Left circumflex artery is free of significant disease. Right coronary artery has mild plaques, but no significant obstructive disease. Right coronary artery is dominant. LEFT VENTRICULAR ANGIOGRAPHY: Left ventricular angiography was carried out in the right anterior oblique projection. Global left ventricular systolic function is hyperdynamic. Left ventricular ejection fraction is approximately 70 to 75%. No significant mitral regurgitation is seen. AORTIC ARCH ANGIOGRAPHY: Aortic arch angiography did not indicate any significant thoracic aortic aneurysm or dissection. Neck arteries, to the extent seen, do not exhibit significant stenoses. CONCLUSIONS: 1. Angiographically minimal coronary artery disease. 2. Normal to hyperdynamic left ventricular systolic function with an ejection fraction of 70 to 75%. 3. Elevated left ventricular end-diastolic pressure. DISCUSSION AND RECOMMENDATIONS: Based on results of the study, it appears appropriate to continue a conservative approach. She has elevated left ventricular end-diastolic pressure that is consistent with diastolic dysfunction of left ventricle. We are initiating therapy with furosemide and supplemental potassium. Outpatient followup is advised. We have advised sleep study for evaluation of sleep apnea as a reason for diastolic dysfunction of the left ventricle. Risk factor modification has been reviewed. Job ID: [id number] DocumentID: [id number] Dictated Date: 09/07/2018 14:46:29 Patient Placement Coordinator Date: 09/07/2018 18:02:04 Dictated By: JESS CONLEY MD, MA, FACP, FACC, MTDD
== END 2018-09-07 18:15 | disposition home or self-care (01) ==
LOC: CATH 12:38 → SDC 15:04 → CATH 18:15
PROVIDERS: ATTEND Internal Medicine Cardiovascular Disease
DX: R07.9 Chest pain, unspecified (principal); I10 Essential (primary) hypertension; E78.5 Hyperlipidemia, unspecified; E78.1 Pure hyperglyceridemia; Z79.899 Other long term (current) drug therapy
CPT/HCPCS: 36221; 36415; 80053; 80061; 85027; 85610; 85730; 87081; 93458

== ENCOUNTER → 2019-04-28 | Outpatient (CLI) | payer BC ==
[~2019-04-28] MED LIST changes: -AMLO5TAB7 PO; +AMLO5TAB9 PO; +ASPI-999 PO; +BUPR1FIL3 SL; +CLOR3.755 PO; +FURO40TA4 PO; +METO100T12 PO; +POTA-53 PO; +RT-ALBUINH INH; +TIOT18CA2 IH
== END | disposition home or self-care (01) ==
LOC: PREOP 05:47
PROVIDERS: ATTEND Specialist
DX: Z01.818 Encounter for other preprocedural examination (principal)

== ENCOUNTER 2019-04-29 10:07 | Day surgery (SDC) | payer BC ==
[~2019-04-29] VITALS: Ht 165.1 cm; Wt 98.9 kg
[~2019-04-29 10:07] MED LIST changes: +PHENYLEPHRINE 10% OPHTH (NEO-SYN) 5 ML BTL ONE
[2019-04-29 10:15] VITALS: BP 112/65
[2019-04-29] MEDS ORDERED: LIDOCAINE PF 1% 2 ML AMP IR PRN (10:15)
[2019-04-29] MEDS ORDERED: POVIDONE (BETADINE) OPHTH SOLN 5% 30 ML OP ONE (10:15)
[2019-04-29] MEDS ORDERED: MOXIFLOXACIN OPHTH SOLN 5 MG/ML 0.3 ML SYRINGE OP ONE (10:15)
[2019-04-29] MEDS ORDERED: TIMOLOL MALEATE 0.5% 5 ML (TIMOPTIC) BTL OU PRN (10:15)
[2019-04-29] MEDS: TETRACAINE 0.5% OPHTH SOLN 4 ML BTL (SINGLE DOSE ONLY) OU PRN ×4 (10:23→10:47)
[2019-04-29] MEDS ORDERED: MIDAZOLAM 2 MG/2 ML (VERSED) VIAL ONE (10:25)
[2019-04-29] MEDS: CYCLOPENTOLATE 1% (CYCLOGYL) 2 ML DROPS OP SCH ×3 (10:33→10:47)
[2019-04-29] MEDS: PHENYLEPHRINE 10% OPHTH (NEO-SYN) 5 ML BTL OU SCH ×3 (10:34→10:47)
--- NOTE | 2019-04-29 11:07 | Ophthalmologist Pre-Op Note ---
Pre-Operative Progress Note H&P Reviewed The H&P was reviewed, patient examined and no changes noted. Date H&P Reviewed: Apr 29, 2019 Time H&P Reviewed: 11:06 Pre-Op Dx Cataract, Left Eye KRISTIE LLOYD MD Apr 29, 2019 11:07
[2019-04-29] MEDS ORDERED: acetaZOLAMIDE ER 500 MG CAP (DIAMOX SEQUELS) PO ONE (11:30)
--- NOTE | 2019-04-29 11:30 | Ophthalmology Operative Report ---
Cataract removal/placement IOL PREOPERATIVE DIAGNOSIS: Cataract Left Eye POSTOPERATIVE DIAGNOSIS: Cataract Left Eye PROCEDURE: Cataract removal and placement of posterior chamber implant, left eye SURGEON: Jd Lloyd ANESTHESIA: Topical with sedation COMPLICATIONS: None ESTIMATED BLOOD LOSS: Minimal DESCRIPTION OF PROCEDURE: After proper informed consent was obtained, the patient, a 54 female, was taken to the Operating Room and the left eye was anesthetized with tetracaine. The left eye was then prepped and draped in the usual manner. A wire lid speculum was placed. A paracentesis was made at the left hand position. Preservative free lidocaine was injected into the anterior chamber followed by viscoelastic. A clear corneal incision was made in the temporal position. A capsulorrhexis was preformed and the central nuclear and cortical material were removed. The posterior capsule was polished and an Prabhakar 22.5 AU00T0 was placed into the capsular bag. The residual viscoelastic was aspirated and balanced saline solution was injected into the anterior chamber. Moxifloxacin was injected into the anterior chamber. The wound was checked and found to be water tight. The patient tolerated the procedure well without complications. JD LLOYD MD Apr 29, 2019 11:30
[2019-04-29 11:39] VITALS: BP 111/66
== END 2019-04-29 11:40 | disposition home or self-care (01) ==
LOC: SDC 10:07
PROVIDERS: ATTEND Specialist
DX: H25.12 Age-related nuclear cataract, left eye (principal); I10 Essential (primary) hypertension; J44.9 Chronic obstructive pulmonary disease, unspecified; F17.210 Nicotine dependence, cigarettes, uncomplicated; Z79.899 Other long term (current) drug therapy; Z79.82 Long term (current) use of aspirin

== ENCOUNTER 2019-05-04 05:37 | Outpatient (CLI) | payer BC ==
[~2019-05-04] VITALS: Ht 165.1 cm; Wt 98.9 kg
[~2019-05-04 05:37] MED LIST changes: -PHENYLEPHRINE 10% OPHTH (NEO-SYN) 5 ML BTL ONE
== END 2019-05-04 13:54 | disposition home or self-care (01) ==
LOC: PREOP 05:37
PROVIDERS: ATTEND Specialist
DX: Z01.818 Encounter for other preprocedural examination (principal)

== ENCOUNTER 2019-05-06 10:21 | Day surgery (SDC) | payer BC ==
[~2019-05-06] VITALS: Ht 165.1 cm; Wt 98.9 kg
[2019-05-06 10:21] VITALS: BP 140/81
[2019-05-06] MEDS ORDERED: LIDOCAINE PF 1% 2 ML AMP IR PRN (10:30)
[2019-05-06] MEDS ORDERED: MOXIFLOXACIN OPHTH SOLN 5 MG/ML 0.3 ML SYRINGE OP ONE (10:30)
[2019-05-06] MEDS ORDERED: POVIDONE (BETADINE) OPHTH SOLN 5% 30 ML OP ONE (10:30)
[2019-05-06] MEDS ORDERED: TIMOLOL MALEATE 0.5% 5 ML (TIMOPTIC) BTL OU PRN (10:30)
[2019-05-06] MEDS: TETRACAINE 0.5% OPHTH SOLN 4 ML BTL (SINGLE DOSE ONLY) OU PRN ×4 (10:38→10:58)
[2019-05-06] MEDS: CYCLOPENTOLATE 1% (CYCLOGYL) 2 ML DROPS OP SCH ×3 (10:47→10:58)
[2019-05-06] MEDS: PHENYLEPHRINE 10% OPHTH (NEO-SYN) 5 ML BTL OU SCH ×3 (10:48→10:58)
--- NOTE | 2019-05-06 10:53 | Ophthalmologist Pre-Op Note ---
Pre-Operative Progress Note H&P Reviewed The H&P was reviewed, patient examined and no changes noted. Date H&P Reviewed: May 06, 2019 Time H&P Reviewed: 10:53 Pre-Op Dx Cataract, Right Eye KRISTIE LLOYD MD May 06, 2019 10:53
[2019-05-06] MEDS ORDERED: MIDAZOLAM 2 MG/2 ML (VERSED) VIAL ONE (11:19)
--- NOTE | 2019-05-06 11:43 | Ophthalmology Operative Report ---
Cataract removal/placement IOL PREOPERATIVE DIAGNOSIS: Cataract Right Eye POSTOPERATIVE DIAGNOSIS: Cataract Right Eye PROCEDURE: Cataract removal and placement of posterior chamber implant, right eye SURGEON: Jd Lloyd ANESTHESIA: Topical with sedation COMPLICATIONS: None ESTIMATED BLOOD LOSS: Minimal DESCRIPTION OF PROCEDURE: After proper informed consent was obtained, the patient, a 54 female, was taken to the Operating Room and the right eye was anesthetized with tetracaine. The right eye was then prepped and draped in the usual manner. A wire lid speculum was placed. A paracentesis was made at the left hand position. Preservative free lidocaine was injected into the anterior chamber followed by viscoelastic. A clear corneal incision was made in the temporal position. A capsulorrhexis was preformed and the central nuclear and cortical material were removed. The posterior capsule was polished and Prabhakar 23.0 AU00T0 IOL was placed into the capsular bag. The residual viscoelastic was aspirated and balanced saline solution was injected into the anterior chamber. Moxifloxacin was injected into the anterior chamber. The wound was checked and found to be water tight. The patient tolerated the procedure well without complications. JD LLOYD MD May 06, 2019 11:43
[2019-05-06 12:00] VITALS: BP 126/77
[2019-05-06] MEDS ORDERED: acetaZOLAMIDE ER 500 MG CAP (DIAMOX SEQUELS) PO ONE (12:00)
--- NOTE | 2019-05-06 13:53 | Anesthesia-General Post-Op ---
MAC Patient Condition Mental Status/LOC: Same as Preop Cardiovascular: Satisfactory Nausea/Vomiting: Absent Respiratory: Satisfactory Pain: Controlled Complications: Absent Post Op Complications Complications None Follow Up Care/Instructions Patient Instructions None needed. Anesthesiology Discharge Order Discharge Order Patient was seen after the procedure and she was doing well, no complaints, stable vital signs, no apparent adverse anesthesia problems. YISEL DAN DO May 06, 2019 13:53
== END 2019-05-06 12:00 | disposition home or self-care (01) ==
LOC: SDC 10:21
PROVIDERS: ATTEND Specialist
DX: H25.11 Age-related nuclear cataract, right eye (principal); F17.210 Nicotine dependence, cigarettes, uncomplicated; J44.9 Chronic obstructive pulmonary disease, unspecified; F10.21 Alcohol dependence, in remission; Z79.82 Long term (current) use of aspirin; Z79.899 Other long term (current) drug therapy; Z90.710 Acquired absence of both cervix and uterus; Z83.511 Family history of glaucoma; Z83.3 Family history of diabetes mellitus; Z82.49 Family history of ischemic heart disease and other diseases of the circulatory system; Z80.43 Family history of malignant neoplasm of testis

== ENCOUNTER 2019-09-19 14:47 | Inpatient (IN) | payer BC ==
[~2019-09-19] VITALS: Ht 162.6 cm; Wt 82.0 kg
[2019-09-19] VITALS (9 sets, daily range): BP systolic 95–124; BP diastolic 59–69
[~2019-09-19 14:47] MED LIST changes: +LIDOCAINE PF 1% 2 ML VIAL IJ ONE; +LISI1TAB25 PO; -MAGN400T6 PO; +MAGN400T8 PO
[2019-09-19] MEDS ORDERED: LACTATED RINGERS 1,000 ML IV ONE ×3 (15:04→16:35)
[2019-09-19 15:19] LABS: ABG BASE EXCESS 10.4 MMOL/L (-2.5-2.5); ABG OXYGEN SATURATION 89 % (94-100); ABG PCO2 57 MMHG (35-45); ABG PH 7.41 (7.37-7.43); ABG PO2 60 MMHG (79-93); ABG TCO2 37.1 MMOL/L (21.0-31.0); ALLENS TEST POSITIVE; INSPIRED O2 100%; PATIENT TEMP 38; VENTILATOR NO
--- NOTE | 2019-09-19 15:21 | ED General ---
General Chief Complaint: Altered Mental Status Stated Complaint: ALTERED MENTAL STATE Source of Information: Patient Exam Limitations: Physical Impairments History of Present Illness Date Seen by Provider: Sep 19, 2019 Time Seen by Provider: 14:58 Initial Comments Here by EMS with report of altered mental status. Apparently she was at home and there is concerns that she was drinking and so family left her home to rest. 2 days later she was found nearly unresponsive and smelled of foul-smelling urine. There is concern about potentially her taking narcotics although she has not prescribe those. Apparently her had and there were some narcotics left over from that. She does admit to smoking 3 packs of cigarettes a day. She has been incontinent of urine. Does arrive with a fever and hypoxic. Unsure she is normally on oxygen but is certainly requiring oxygen now and despite high flow O2 and she is only in the upper 80s. Patient does answer simple questions and follows simple commands but is not able to give any significant history. Timing/Duration: 2-3 Days, Getting Worse Severity: Severe Associated Systoms: Cough, Fever/Chills, Shortness of Air, Weakness Allergies and Home Medications Allergies Coded Allergies: No Known Drug Allergies (Unverified , 04/29/19) Home Medications Albuterol Sulfate 1 Puff Puff, 2 PUFF INH DAILY, (Reported) 1 PUFF = 90 MCG Aspirin 81 Mg Tab.chew, 81 MG PO DAILY Prescribed by: JESS AGGARWAL on 09/07/18 145 Buprenorphine HCl/Naloxone HCl 1 Each Film, 1 EACH SL TID, (Reported) Fluticasone/Salmeterol 1 Each Blst.w.dev, 2 EACH IH DAILY, (Reported) Furosemide 40 Mg Tablet, 40 MG PO DAILY Prescribed by: JESS AGGARWAL on 09/07/18 145 Lisinopril/Hydrochlorothiazide 1 Each Tablet, 1 EACH PO BID, (Reported) Metoprolol Tartrate 100 Mg Tablet, 150 MG PO BID, (Reported) Potassium Chloride 20 Meq Tablet.er, 20 MEQ PO DAILY Prescribed by: JESS AGGARWAL on 09/07/18 145 Tiotropium [place] 1 Inh Aerp, 2 INH IH DAILY, (Reported) Patient Home Medication List Home Medication List Reviewed: Yes Review of Systems Review of Systems Constitutional: see HPI, fever, weakness Respiratory: cough, short of breath Cardiovascular: No chest pain; edema Gastrointestinal: No abdominal pain, No nausea, No vomiting Genitourinary: incontinence Skin: change in color Psychiatric/Neurological: Weakness Unable to complete review of systems due to altered mental status Past Hhsxgmf-Oeqndy-Fnxikv Hx Past Med/Social Hx: Reviewed Nursing Past Med/Soc Hx Patient Social History Alcohol Use: Occasionally Uses Smoking Status: Current Everyday Smoker Type Used: Cigarettes Immunizations Up To Date Tetanus Booster (TDap): Unknown Past Medical History Surgeries: Yes Hysterectomy Respiratory: Yes Pneumonia, Chronic Bronchitis, COPD Cardiac: Yes Hypertension 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 Disorders: Yes Female 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 Disorders: Denies Sexually Transmitted Disease: No HIV/AIDS: No Gastrointestinal: Yes Gastroesophageal Reflux Psychosocial: Yes Bipolar Adverse Reaction/Blood Tranf: No Family Medical History Reviewed Nursing Family Hx Cerebrovascular accident (CVA) 19 FATHER, Onset:60 years & older FH: testicular cancer G8 BROTHER, Onset:30's - 40 Hypertension 19 FATHER, Onset:Unknown 19 MOTHER, Onset:Unknown G8 BROTHER, Onset:Unknown G8 BROTHER, Onset:Unknown Myocardial infarction 19 FATHER, Onset:40's - 50 Heart Disease, Hypertension Physical Exam-Suspected Sepsis Physical Exam Vital Signs Vital Signs - First Documented 09/19/19 09/19/19 14:49 14:53 Temp 38.0 Pulse 162 Resp 40 B/P (MAP) 117/75 (89) Pulse Ox 85 O2 Delivery OxyMask O2 Flow Rate 15.00 FiO2 100 Capillary Refill : Height, Weight, BMI Height: 5'5.00" Weight: 218lbs. 0.0oz. [id number]; 36.3 BMI Method:Stated General Appearance: WD/WN, Moderate Distress, Obese HEENT: PERRL/EOMI, Other (dry mucous membranes) Neck: Non Tender, Supple Respiratory: No Accessory Muscle Use, Decreased Breath Sounds Cardiovascular: No Murmur, Tachycardia Gastrointestinal: Non Tender, Soft Back: Normal Inspection, No CVA Tenderness, No Vertebral Tenderness Extremity: Other (edema right greater than left with erythema of both lower extremities) Neurologic/Psychiatric: Other (awake still verbal and answers a few simple questions. Follows some simple commands.) Skin: warm/dry, other (erythema noted to the right lower extremity anterior lesser extent the left lower extremity from the mid tibia to the foot.) Focused Exam Lactate Level 09/19/19 15:45: Lactic Acid Level 2.05*H 09/19/19 17:48: Lactic Acid Level 1.04 Lactic Acid Level Laboratory Tests Test 09/19/19 17:48 Lactic Acid Level 1.04 MMOL/L (0.50-2.00) Procedures/Interventions Lumen: triple Central Line Procedure: betadine prep, sterile drapes applied, sterile dressing applied Position: internal jugular (R) Post Position: sutured, good blood return, position confirmed w/ CXR Central line placed times one stick via ultrasound guidance to the right IJ without complications. Good flush and return. Tolerated procedure well with no complications. Position confirmed on chest x-ray without pneumothorax. Date of ETT Placement: Sep 19, 2019 Time of ETT Placement: 18:28 Intubation Method: orotracheal Tube Size: 7.5 Medications: Etomidate, Succinylcholine Positive End Tide CO2: Yes Breath Sounds after Intubation: bilateral-equal Intubation Complications: no complications Post Intubation Xray: Yes ET tube in good position Placed via video scope times one attempt without complications to 23 cm at the lip. No significant desaturation. Confirmed with end tidal CO2, bilateral breath sounds and chest x-ray. Progress/Results/Core Measures Suspected Sepsis SIRS Temperature: Pulse: Respiratory Rate: Laboratory Tests 09/19/19 15:00: White Blood Count 12.4H Blood Pressure / Mean: 09/19/19 15:45: Lactic Acid Level 2.05*H 09/19/19 17:48: Lactic Acid Level 1.04 Laboratory Tests 09/19/19 15:00: INR Comment 1.1, Platelet Count 213 09/19/19 15:45: Creatinine 1.53H, Total Bilirubin 0.8 Results/Orders Lab Results Laboratory Tests Test 09/19/19 15:00 09/19/19 15:04 09/19/19 15:07 09/19/19 15:45 Range/Units White Blood Count 12.4 H 4.3-11.0 10^3/uL Red Blood Count 3.89 L 4.35-5.85 10^6/uL Hemoglobin 12.5 11.5-16.0 G/DL Hematocrit 40 35-52 % Mean Corpuscular Volume 102 H 80-99 FL Mean Corpuscular Hemoglobin 32 25-34 PG Mean Corpuscular Hemoglobin Concent 32 32-36 G/DL Red Cell Distribution Width 15.5 H 10.0-14.5 % Platelet Count 213 130-400 10^3/uL Mean Platelet Volume 10.9 H 7.4-10.4 FL Neutrophils (%) (Auto) 83 H 42-75 % Lymphocytes (%) (Auto) 7 L 12-44 % Monocytes (%) (Auto) 9 0-12 % Eosinophils (%) (Auto) 0 0-10 % Basophils (%) (Auto) 0 0-10 % Neutrophils # (Auto) 10.3 H 1.8-7.8 X 10^3 Lymphocytes # (Auto) 0.9 L 1.0-4.0 X 10^3 Monocytes # (Auto) 1.2 H 0.0-1.0 X 10^3 Eosinophils # (Auto) 0.0 0.0-0.3 10^3/uL Basophils # (Auto) 0.0 0.0-0.1 10^3/uL Neutrophils % (Manual) 56 % Lymphocytes % (Manual) 16 % Monocytes % (Manual) 16 % Band Neutrophils 12 % Toxic Granulation 1+ Dohle Bodies SLIGHT Prothrombin Time 14.3 12.2-14.7 SEC INR Comment 1.1 0.8-1.4 Activated Partial Thromboplast Time 30 24-35 SEC Blood Gas Puncture Site RIGHT RADIAL Blood Gas Patient Temperature 38 Arterial Blood pH 7.41 7.37-7.43 Arterial Blood Partial Pressure CO2 57 H 35-45 MMHG Arterial Blood Partial Pressure O2 60 L 79-93 MMHG Arterial Blood HCO3 35 H 23-27 MMOL/L Arterial Blood Total CO2 37.1 H 21.0-31.0 MMOL/L Arterial Blood Oxygen Saturation 89 L 94-100 % Arterial Blood Base Excess 10.4 H -2.5-2.5 MMOL/L Jame Test POSITIVE Blood Gas Ventilator Setting NO Blood Gas Inspired Oxygen 100% Urine Color SANDRA H Urine Clarity SL CLOUDY Urine pH 5.5 5-9 Urine Specific [place] >=1.030 1.016-1.022 Urine Protein 2+ H NEGATIVE Urine Glucose (UA) NEGATIVE NEGATIVE Urine Ketones NEGATIVE NEGATIVE Urine Nitrite NEGATIVE NEGATIVE Urine Bilirubin 2+ H NEGATIVE Urine Urobilinogen 1.0 < = 1.0 MG/DL Urine Leukocyte Esterase NEGATIVE NEGATIVE Urine RBC (Auto) TRACE-I NEGATIVE Urine RBC NONE /HPF Urine WBC RARE /HPF Urine Crystals NONE /LPF Urine Bacteria LARGE H /HPF Urine Casts NONE /LPF Urine Mucus LARGE H /LPF Urine Culture Indicated NO Urine Opiates Screen NEGATIVE NEGATIVE Urine Oxycodone Screen NEGATIVE NEGATIVE Urine Methadone Screen NEGATIVE NEGATIVE Urine Propoxyphene Screen NEGATIVE NEGATIVE Urine Barbiturates Screen NEGATIVE NEGATIVE Ur Tricyclic Antidepressants Screen NEGATIVE NEGATIVE Urine Phencyclidine Screen NEGATIVE NEGATIVE Urine Amphetamines Screen NEGATIVE NEGATIVE Urine Methamphetamines Screen NEGATIVE NEGATIVE Urine Benzodiazepines Screen POSITIVE H NEGATIVE Urine Cocaine Screen NEGATIVE NEGATIVE Urine Cannabinoids Screen NEGATIVE NEGATIVE Sodium Level 139 135-145 MMOL/L Potassium Level 4.3 3.6-5.0 MMOL/L Chloride Level 94 L 98-107 MMOL/L Carbon Dioxide Level 33 H 21-32 MMOL/L Anion Gap 12 5-14 MMOL/L Blood Urea Nitrogen 46 H 7-18 MG/DL Creatinine 1.53 H 0.60-1.30 MG/DL Estimat Glomerular Filtration Rate 35 BUN/Creatinine Ratio 30 Glucose Level 217 H 70-105 MG/DL Lactic Acid Level 2.05 *H 0.50-2.00 MMOL/L Calcium Level 9.3 8.5-10.1 MG/DL Corrected Calcium 10.2 H 8.5-10.1 MG/DL Total Bilirubin 0.8 0.1-1.0 MG/DL Aspartate Amino Transf (AST/SGOT) 39 H 5-34 U/L Alanine Aminotransferase (ALT/SGPT) 30 0-55 U/L Alkaline Phosphatase 88 40-136 U/L Troponin I 0.252 H <0.028 NG/ML Total Protein 5.6 L 6.4-8.2 GM/DL Albumin 2.9 L 3.2-4.5 GM/DL Salicylates Level < 5.0 L 5.0-20.0 MG/DL Acetaminophen Level < 10 L 10-30 UG/ML Serum Alcohol < 10 <10 MG/DL Test 09/19/19 17:48 Range/Units Lactic Acid Level 1.04 0.50-2.00 MMOL/L Micro Results Microbiology 09/19/19 Influenza Types A,B Antigen (DEISY) - Final, Complete My Orders Orders - GENA ANGULO MD Ed Iv/Invasive Line Start (09/19/19 15:04) Lactated Ringers (Lr 1000 Ml Iv Solution (09/19/19 15:04) Cbc With Automated Diff (09/19/19 15:04) Comprehensive Metabolic Panel (09/19/19 15:04) Blood Culture (09/19/19 15:04) Sputum Culture (09/19/19 15:04) Urinalysis (09/19/19 15:04) Urine Culture (09/19/19 15:04) Protime With Inr (09/19/19 15:04) Partial Thromboplastin Time (09/19/19 15:04) Chest 1 View, Ap/Pa Only (09/19/19 15:04) Ed Iv/Invasive Line Start (09/19/19 15:04) Ed Iv/Invasive Line Start (09/19/19 15:04) Ekg Tracing (09/19/19 15:04) Vital Signs Adult Sepsis Patie Q15M (09/19/19 15:04) O2 (09/19/19 15:04) Remove Rings In Anticipation O (09/19/19 15:04) Lactic Acid Analyzer (09/19/19 15:04) Influenza A And B Antigens (09/19/19 15:04) Lactated Ringers (Lr 1000 Ml Iv Solution (09/19/19 15:04) Acetaminophen (09/19/19 15:10) Alcohol (09/19/19 15:10) Drug Screen Stat (Urine) (09/19/19 15:10) Salicylate (09/19/19 15:10) Arterial Blood Gas (09/19/19 15:14) Manual Differential (09/19/19 15:00) Troponin I (09/19/19 15:40) Ns (Ivpb) (Sodium C... W/Diltiazem Iv Fo (09/19/19 16:30) Diltiazem Injection (Cardizem Injection) (09/19/19 16:30) Ed Iv/Invasive Line Start (09/19/19 16:35) Lactated Ringers (Lr 1000 Ml Iv Solution (09/19/19 16:35) Digoxin Injection (Lanoxin Injection) (09/19/19 16:45) Piperacillin Sodium/Tazobactam (Zosyn Vi (09/19/19 17:15) Norepinephrine (Levophed) (09/19/19 18:14) Ns (Ivpb) (Sodium Chloride 0.9%) (09/19/19 18:15) Norepinephrine (Levophed) (09/19/19 18:15) Digoxin Injection (Lanoxin Injection) (12/16/19 18:45) Norepinephrine (Levophed) (09/19/19 18:45) Chest 1 View, Ap/Pa Only (09/19/19 19:00) Ns (Ivpb) (Sodium C... W/Midazolam Injec (09/19/19 19:15) Ns (Ivpb) (Sodium C... W/Fentanyl Injec (09/19/19 19:15) Midazolam Injection (Versed Injection) (09/19/19 19:30) Midazolam Injection (Versed Injection) (09/19/19 19:14) Pantoprazole Injection (Protonix Injecti (09/19/19 19:45) Albuterol/Ipra Inhalation Soln (Duoneb I (09/19/19 19:45) Svn Small Volume Nebulizer (09/19/19 19:36) Digoxin Injection (Lanoxin Injection) (09/19/19 19:45) Medications Given in ED Current Medications Medications Dose Ordered Sig/Chery Route Start Time Stop Time Status Last Admin Dose Admin Digoxin 0.25 mg ONCE ONCE IV 09/19/19 16:45 09/19/19 16:46 DC 09/19/19 16:45 0.25 MG Lactated Ringer's 1,000 ml @ 0 mls/hr Q0M ONCE IV 09/19/19 15:04 09/19/19 15:06 DC 09/19/19 15:16 0 MLS/HR Lactated Ringer's 1,000 ml @ 0 mls/hr Q0M ONCE IV 09/19/19 15:04 09/19/19 15:06 DC 09/19/19 15:23 0 MLS/HR Lactated Ringer's 1,000 ml @ 0 mls/hr Q0M ONCE IV 09/19/19 16:35 09/19/19 16:36 DC 09/19/19 16:45 0 MLS/HR Midazolam HCl 5 mg ONCE ONCE IVP 09/19/19 19:30 09/19/19 19:31 DC 09/19/19 19:21 5 MG Piperacillin Sod/ Tazobactam Sod 4.5 gm/Sodium Chloride 100 ml @ 200 mls/hr ONCE ONCE IV 09/19/19 17:15 09/19/19 17:44 DC 09/19/19 17:36 200 MLS/HR Vital Signs/I&O 09/19/19 09/19/19 09/19/19 09/19/19 14:49 14:53 15:03 15:27 Temp 38.0 Pulse 162 Resp 40 B/P (MAP) 117/75 (89) Pulse Ox 85 80 93 95 O2 Delivery OxyMask OxyMask Vapotherm Vapotherm O2 Flow Rate 15.00 40.00 40.00 FiO2 100 100 60 09/19/19 09/19/19 09/19/19 09/19/19 16:52 19:30 19:46 19:54 Pulse 160 120 116 Resp 18 B/P (MAP) 116/73 Pulse Ox 90 95 FiO2 90 100 Capillary Refill : Progress Note : Progress Note Seen and evaluated on arrival by EMS. EMS has an S1 liter bolus running currently and that will be completed. Second IV established. LR 2 L ordered. Sepsis workup initiated including labs, UA, UCG, chest x-ray, blood cultures and lactic acid. We will get drug screen as well as alcohol, Tylenol and salicylates. Patient initiated on Vapotherm to see if this would help with oxygenation. ABG has been ordered and is in progress. Monitor patient. 1730: I discussed the case with Dr. Chopra and she will except patient for admission. Patient has bilateral lower lobe pneumonia. Zosyn 4.5 g IV initiated. Patient does have slightly elevated lactic acid. She does have elevated heart rate and is in atrial fibrillation. We have initiated Cardizem drip. We are trying to decrease heart rate while keeping blood pressure elevated. Patient is on the low and abnormal for blood pressure and I hesitate to initiate norepinephrine due to it causing elevated heart rate. We will initiate third liter of LR at 250 mL an hour to help with blood pressure. 1828: Patient having increasing desaturation despite Vapotherm and intubation was elected and performed. She tolerated this procedure without difficulty. The patient was not tolerating Cardizem drip without significant drop in blood pressure and also had desaturations. Central line will be placed. Patient has much improved oxygen saturation saturations after intubation. 1900: Central line was placed without difficulty via ultrasoun d guidance. Repeat digoxin 0.125 mg IV was given. The patient had dose of rocuronium for paralysis as well as Versed 5 mg IV 2 and fentanyl 100 g IV. We have initiated norepinephrine drip at 0.1 mcg/kg/m with estimated weight of 80 kg. She has improved blood pressure and heart rate is now in the low 100s. Cardizem drip continues at 10 mg per hour. 1944: I have rediscussed the case with Dr. Escobar and he agrees with all of the above. We will initiate Precedex in the ICU if needed for continued sedation and will use Versed and fentanyl drip for postintubation sedation due to her current alcoholism. Family now reports the patient is on Suboxone. I do not believe she has had that for the last few days as she has been mostly unresponsive at home per family report. OG tube was placed and does show bloody return. We have considered anticoagulation in this patient but we will hold that for now due to concerns for upper GI bleed. Protonix 40 mg IV given. We will also hold DVT prophylaxis with anticoagulant for the same reason. This was discussed with Dr. Aggarwal who agrees. This can be reconsidered in the future. Patient's blood pressure is i mproved to the 110's systolic and heart rate 100-120 depending on sedation. Still an atrial fibrillation. Versed drip initiated at 7.5 mg/h and fentanyl 50 g per hour to be titrated for sedation. All findings and concerns were discussed with the patient's family who agree with plan. Admit ICU, critical condition. 2000: I attest a focused exam at this time ECG Initial ECG Impression Date: Sep 19, 2019 Initial ECG Impression Time: 15:25 Initial ECG Rate: 165 Initial ECG Rhythm: A Fib/Flutter Initial ECG Impression: Atrial Fibrillation w/RVR Comment Atrial flutter with rapid ventricular response. Rightward axis. No evidence of ST elevation OK. Discussed with caseworker protective services. Interpreted by me. Diagnostic Imaging Diagonstic Imaging: Xray Plain Films/CT/US/NM/MRI: chest Comments [facility]. POS [place], [place] POS NAME: ZEKE MEDELLIN [facility] REC#: [id number] PT STATUS: REG ER : 1965 PHYSICIAN: GENA ANGULO MD ADMIT DATE: 09/19/19/ER Signed POSDate of Exam:09/19/19 CHEST 1 VIEW, AP/PA ONLY INDICATION: Shortness of air. COMPARISON: February 11, 2018. TECHNIQUE: Single radiograph of the chest dated September 19, 2019. FINDINGS: The cardiac silhouette is mildly enlarged. Mild central pulmonary vascular congestion. Interval development of bibasilar pulmonary infiltrates, left greater than right. Trace pleural effusions are suspected. No pneumothorax. No acute osseous abnormality. IMPRESSION: Development of bibasilar infiltrate/atelectasis. Mild cardiomegaly with mild central pulmonary vascular congestion. Dictated by: Dictated on workstation # [id number] Dict: 09/19/19 1526 Trans: 09/19/19 1637 [id number] Interpreted by: ARMEN VEGAS MD Electronically signed by: ARMEN VEGAS MD 09/19/19 [id number] Diagonstic Imaging: Xray Plain Films/CT/US/NM/MRI: chest Comments [facility], [facility]. POS [place], [place] POS NAME: ZEKE MEDELLIN [facility] REC#: [id number] PT STATUS: REG ER : 1965 PHYSICIAN: GENA ANGULO MD ADMIT DATE: 09/19/19/ER Signed POSDate of Exam:09/19/19 CHEST 1 VIEW, AP/PA ONLY HISTORY: Central line placement. ET tube and OG tube. COMPARISON: 09/19/2019 TECHNIQUE: Single frontal view of the chest FINDINGS: Endotracheal tube is 3.8 cm from the jhon. An enteric tube projects over the stomach. The tip of the right central line projects over the low SVC. Lung volumes are mildly low. There are bibasilar airspace opacities which appears stable since the prior exam. There is cardiomegaly with central vascular congestion. There may be small bilateral pleural effusions. IMPRESSION: 1. Tubes and line in position as described above. 2. Cardiomegaly with central vascular congestion. 3. Stable bibasilar airspace opacities, possibly small bilateral pleural effusions. Dictated by: Dictated on workstation # [id number] Dict: 09/19/19 192 Trans: 09/19/19 1936 [facility] [id number] Interpreted by: SHAY MURRIETA MD Electronically signed by: SHAY MURRIETA MD 09/19/19 1936 Critical Care Note Critical Care Start Time: 14:58 Stop Time: 20:00 Total Time (minutes) 60 Departure Impression Primary Impression: Bilateral pneumonia Qualified Codes: J18.1 - Lobar pneumonia, unspecified organism Additional Impressions: Acute respiratory failure Qualified Codes: J96.01 - Acute respiratory failure with hypoxia Atrial fibrillation with rapid ventricular response Septic shock Disposition: ADMITTED INPATIENT Condition: Critical Departure-Patient Inst. Referrals: BROOKE JOYNER DO (PCP) Primary Care Physician HEIDI HARTLEY APRN (Family) Primary Care Physician GENA ANGULO MD Sep 19, 2019 15:21 POS
[2019-09-19 15:24] LABS: BASOPHILS % (AUTO) 0 % (0-10); EOSINOPHILS % (AUTO) 0 % (0-10); HEMATOCRIT 40 % (35-52); HEMOGLOBIN 12.5 G/DL (11.5-16.0); LYMPHOCYTES # (AUTO) 0.9 X 10^3 (1.0-4.0); LYMPHOCYTES % (AUTO) 7 % (12-44); MEAN CORPUSCULAR HEMOGLOBIN 32 PG (25-34); MEAN CORPUSCULAR HGB CONC 32 G/DL (32-36); MEAN CORPUSCULAR VOLUME 102 FL (80-99); MEAN PLATELET VOLUME 10.9 FL (7.4-10.4); MONOCYTES # (AUTO) 1.2 X 10^3 (0.0-1.0); MONOCYTES % (AUTO) 9 % (0-12); NEUTROPHILS # (AUTO) 10.3 X 10^3 (1.8-7.8); NEUTROPHILS % (AUTO) 83 % (42-75); PLATELET COUNT 213 10^3/uL (130-400); RED CELL DISTRIBUTION WIDTH 15.5 % (10.0-14.5); WHITE BLOOD COUNT 12.4 10^3/uL (4.3-11.0)
--- NOTE | 2019-09-19 15:29 | Diagnostic Imaging Report ---
INDICATION: Shortness of air. COMPARISON: February 11, 2018. TECHNIQUE: Single radiograph of the chest dated September 19, 2019. FINDINGS: The cardiac silhouette is mildly enlarged. Mild central pulmonary vascular congestion. Interval development of bibasilar pulmonary infiltrates, left greater than right. Trace pleural effusions are suspected. No pneumothorax. No acute osseous abnormality. IMPRESSION: Development of bibasilar infiltrate/atelectasis. Mild cardiomegaly with mild central pulmonary vascular congestion. Dictated by: Dictated on workstation # [id number]
[2019-09-19 15:36] LABS: BILIRUBIN,URINE 2+ (NEGATIVE); CLARITY,URINE SL CLOUDY; COLOR,URINE AMBER; GLUCOSE, URINE (UA) NEGATIVE (NEGATIVE); KETONES,URINE NEGATIVE (NEGATIVE); LEUKOCYTE ESTERASE ,URINE NEGATIVE (NEGATIVE); NITRITE,URINE NEGATIVE (NEGATIVE); PH,URINE 5.5 (5-9); PROTEIN,URINE 2+ (NEGATIVE)
[2019-09-19 15:40] LABS: INR 1.1 (0.8-1.4); PROTHROMBIN TIME PATIENT 14.3 SEC (12.2-14.7)
[2019-09-19 15:55] LABS: AMPHETAMINE SCREEN, URINE NEGATIVE (NEGATIVE); BARBITURATE SCREEN URINE NEGATIVE (NEGATIVE); BENZODIAZEPINES SCREEN URINE POSITIVE (NEGATIVE); CANNABINOID SCREEN, URINE NEGATIVE (NEGATIVE); COCAINE SCREEN URINE NEGATIVE (NEGATIVE); METHADONE STAT NEGATIVE (NEGATIVE); METHAMPHETAMINE SCREEN URINE S NEGATIVE (NEGATIVE); OPIATE SCREEN URINE NEGATIVE (NEGATIVE); OXYCODONE STAT NEGATIVE (NEGATIVE); PROPOXYPHENE STAT NEGATIVE (NEGATIVE); TRICYCLIC ANTIDEPRESSANTS SCRE NEGATIVE (NEGATIVE)
[2019-09-19 16:00] LABS: BACTERIA,URINE LARGE /HPF; WBC,URINE RARE /HPF
--- NOTE | 2019-09-19 16:00 | NUR ---
NS bolus initiated by CC ems, PROGRAM MANAGER complete (1000ml intake).
[2019-09-19 16:15] LABS: ALANINE AMINOTRANSFERASE 30 U/L (0-55); ALBUMIN 2.9 GM/DL (3.2-4.5); ALKALINE PHOSPHATASE 88 U/L (40-136); BILIRUBIN,TOTAL 0.8 MG/DL (0.1-1.0); BUN/CREATININE RATIO 30; CALCIUM 9.3 MG/DL (8.5-10.1); CARBON DIOXIDE 33 MMOL/L (21-32); CHLORIDE 94 MMOL/L (98-107); CREATININE SERUM 1.53 MG/DL (0.60-1.30); GFR ESTIMATED 35; GLUCOSE 217 MG/DL (70-105); POTASSIUM 4.3 MMOL/L (3.6-5.0); SALICYLATE < 5.0 MG/DL (5.0-20.0); SODIUM 139 MMOL/L (135-145); TOTAL PROTEIN 5.6 GM/DL (6.4-8.2)
[2019-09-19 16:16] LABS: ACETAMINOPHEN < 10 UG/ML (10-30)
[2019-09-19 16:17] LABS: BAND NEUTROPHILS 12 %; LYMPHOCYTES % (MANUAL) 16 %; MONOCYTES % (MANUAL) 16 %; NEUTROPHILS % (MANUAL) 56 %; TOXIC GRANULATION/VACUOLAZATIO 1+
[2019-09-19] MEDS ORDERED: DILTIAZEM IV FOR DRIP 125 MG in NS (IVPB) 100 ML IV SCH (16:30)
[2019-09-19] MEDS ORDERED: DILTIAZEM 25 MG/5 ML INJ (CARDIZEM) VIAL IVP ONE (16:30)
[2019-09-19] MEDS ORDERED: DIGOXIN 0.25 MG/ML (LANOXIN) 2 ML AMP IV ONE ×2 (16:45→19:45)
[2019-09-19] MEDS ORDERED: PIPERACILLIN SODIUM/TAZOBACTAM 4.5 GM in NS (IVPB) 100 ML IV ONE (17:15)
[2019-09-19] MEDS ORDERED: NOREPINEPHRINE 4 MG/4 ML (LEVOPHED) AMP IV ONE ×2 (18:14→18:15)
[2019-09-19] MEDS ORDERED: NS (IVPB) 250 ML ONE (18:15)
[2019-09-19] MEDS: NOREPINEPHRINE 4 MG in NS (IVPB) 250 ML IV SCH (18:44)
[2019-09-19] MEDS ORDERED: DIGOXIN 0.25 MG/ML (LANOXIN) 2 ML AMP IV SCH (18:45)
[2019-09-19] MEDS ORDERED: MIDAZOLAM 5 MG/5 ML (VERSED) VIAL ONE (19:14)
[2019-09-19] MEDS ORDERED: MIDAZOLAM INJECTION FOR DRIPS 50 MG in NS (IVPB) 90 ML IV SCH (19:15)
[2019-09-19] MEDS ORDERED: fentaNYL INJECTION 1,250 MCG in NS (IVPB) 250 ML IV SCH (19:15)
--- NOTE | 2019-09-19 19:29 | Diagnostic Imaging Report ---
HISTORY: Central line placement. ET tube and OG tube. COMPARISON: 09/19/2019 TECHNIQUE: Single frontal view of the chest FINDINGS: Endotracheal tube is 3.8 cm from the jhon. An enteric tube projects over the stomach. The tip of the right central line projects over the low SVC. Lung volumes are mildly low. There are bibasilar airspace opacities which appears stable since the prior exam. There is cardiomegaly with central vascular congestion. There may be small bilateral pleural effusions. IMPRESSION: 1. Tubes and line in position as described above. 2. Cardiomegaly with central vascular congestion. 3. Stable bibasilar airspace opacities, possibly small bilateral pleural effusions. Dictated by: Dictated on workstation # [id number]
[2019-09-19] MEDS ORDERED: MIDAZOLAM 5 MG/5 ML (VERSED) VIAL IVP ONE (19:30)
--- NOTE | 2019-09-19 19:38 | NUR ---
1825: 20mg etomidate 1826: 100 succinylcholine 1828: Intubated complete. + color change. 7.5 ET tube. 23 Lip. 1830: 16Fr OG (bloody drainage) 183: 50mcg fentanyl 5mg versed 1838: 50 Rocuronium 1838: Time out (central venous line to Rt IJ) 1840: 5mg versed 184: 50mcg fentanyl 1844: Levophed drip initiated (0.1mcg/kg/hr) 1900: Central line accessed to Rt IJ 1900: Levophed increased (0.13mcg/kg/hr) 1938: 50 Rocuronium
[2019-09-19] MEDS ORDERED: PANTOPRAZOLE 40 MG (PROTONIX) VIAL IV ONE (19:45)
[2019-09-19] MEDS ORDERED: RT-ALBUTEROL/IPRATROPIUM 3 ML (DUONEB) VIAL INH ONE (19:45)
[2019-09-19] MEDS ORDERED: ROCURONIUM 10 MG/ML 5 ML SYRINGE IV ONE (19:59)
[2019-09-19] MEDS ORDERED: ETOMIDATE IV SOLN 20 MG/10 ML VIAL IV ONE (19:59)
[2019-09-19] MEDS ORDERED: fentaNYL INJECTION 100 MCG/2 ML AMP INJ ONE (19:59)
[2019-09-19] MEDS ORDERED: MIDAZOLAM 5 MG/5 ML (VERSED) VIAL INJ ONE (19:59)
[2019-09-19] MEDS ORDERED: SUCCINYLCHOLINE INJ 100 MG/5 ML SYR INJ ONE (19:59)
[2019-09-19] MEDS: MIDAZOLAM DRIP 50 MG/NS 90 ML IV SCH ×2 (20:30)
[2019-09-19] MEDS: DILTIAZEM 125 MG/NS 100 ML IV SCH ×2 (20:30)
[2019-09-19] MEDS ORDERED: NS (IVPB) 50 ML ONE (20:54)
[2019-09-19 21:23] LABS: ABG OXYGEN SATURATION 96 % (94-100); ABG PCO2 65 MMHG (35-45); ABG PH 7.35 (7.37-7.43); ABG PO2 82 MMHG (79-93); ABG TCO2 36.9 MMOL/L (21.0-31.0); ALLENS TEST YES-POS; INSPIRED O2 100%; PATIENT TEMP 36.5; VENTILATOR YES
[2019-09-19] MEDS ORDERED: VANCOMYCIN 1500 MG/NS 500 ML IVPB IV ONE ×2 (21:45)
[2019-09-19] MEDS ORDERED: EPINEPHrine 1 MG INJECTION 2 MG in NS (IVPB) 250 ML IV SCH (21:45)
--- NOTE | 2019-09-19 21:50 | NUR ---
PEEP TO 10 PER ORDER Addendum: 09/19/19 at 2151 by MERVIN STAFFORD RT Amended: Links added.
[2019-09-19] MEDS: LACTATED RINGERS 1,000 ML IV SCH (22:15)
[2019-09-19] MEDS: VASOPRESSIN INJECTION 20 UNIT in NORMAL SALINE 100 ML IV SCH (22:41)
[2019-09-19] MEDS ORDERED: VANCOMYCIN 500 MG/VIAL IV ONE (22:42)
[2019-09-19] MEDS ORDERED: VANCOMYCIN 1000 MG/VIAL ONE (22:42)
[2019-09-19] MEDS ORDERED: NS IV 500 ML 500 ML ONE (22:45)
[2019-09-20] VITALS (29 sets, daily range): BP systolic 75–178; BP diastolic 42–95
[2019-09-20] MEDS ORDERED: NOREPINEPHRINE 4 MG in NS (IVPB) 250 ML IV SCH ×2
[2019-09-20 00:56] LABS: ABG BASE EXCESS 8.9 MMOL/L (-2.5-2.5); ABG OXYGEN SATURATION 93 % (94-100); ABG PCO2 55 MMHG (35-45); ABG PO2 68 MMHG (79-93); ABG TCO2 35.6 MMOL/L (21.0-31.0)
[2019-09-20 00:59] LABS: ALLENS TEST YES-POS; INSPIRED O2 100%; PATIENT TEMP 36.4; VENTILATOR YES
[2019-09-20] MEDS: inSUlin ASPART (NovoLOG) 1 UNIT/0.01 ML (CHARGE PER UNIT) SC SCH ×5 (01:14→23:20)
[2019-09-20] MEDS ORDERED: PIPERACILLIN/TAZO 4.5 GM VIAL (ZOSYN) IV ONE (01:25)
[2019-09-20] MEDS ORDERED: NS (IVPB) 100 ML ONE (01:26)
[2019-09-20] MEDS: PIPERACILLIN/TAZOBACTAM (BULK) 4.5 GM in NS (IVPB) 100 ML IV SCH ×4 (01:30→23:20)
[2019-09-20] MEDS ORDERED: NS 100 ML (IVPB) BAG IV ONE (02:00)
[2019-09-20] MEDS ORDERED: HOLD METFORMIN - RECEIVED CONTRAST 20 ML VIAL IV SCH (02:00)
[2019-09-20] MEDS ORDERED: RT-ALBUTEROL/IPRATROPIUM 3 ML (DUONEB) VIAL INH PRN (02:00)
[2019-09-20] MEDS ORDERED: IOHEXOL 350 MG/ML 100 ML (OMNIPAQUE 350) VIAL IV ONE (02:00)
[2019-09-20 02:02] LABS: BASOPHILS % (AUTO) 0 % (0-10); EOSINOPHILS % (AUTO) 0 % (0-10); HEMATOCRIT 38 % (35-52); HEMOGLOBIN 12.2 G/DL (11.5-16.0); LYMPHOCYTES # (AUTO) 1.2 X 10^3 (1.0-4.0); LYMPHOCYTES % (AUTO) 11 % (12-44); MEAN CORPUSCULAR HEMOGLOBIN 32 PG (25-34); MEAN CORPUSCULAR HGB CONC 32 G/DL (32-36); MEAN CORPUSCULAR VOLUME 100 FL (80-99); MEAN PLATELET VOLUME 10.3 FL (7.4-10.4); MONOCYTES # (AUTO) 0.5 X 10^3 (0.0-1.0); MONOCYTES % (AUTO) 5 % (0-12); NEUTROPHILS # (AUTO) 9.2 X 10^3 (1.8-7.8); NEUTROPHILS % (AUTO) 84 % (42-75); PLATELET COUNT 224 10^3/uL (130-400); RED CELL DISTRIBUTION WIDTH 15.8 % (10.0-14.5); WHITE BLOOD COUNT 10.9 10^3/uL (4.3-11.0)
[2019-09-20] MEDS: NOREPINEPHRINE 4 MG in NS (IVPB) 250 ML IV SCH (02:03)
[2019-09-20 02:21] LABS: ALBUMIN 2.6 GM/DL (3.2-4.5); BILIRUBIN,TOTAL 0.7 MG/DL (0.1-1.0); CALCIUM 8.8 MG/DL (8.5-10.1); CREATININE SERUM 1.17 MG/DL (0.60-1.30); MAGNESIUM 1.8 MG/DL (1.6-2.4); PHOSPHORUS 2.5 MG/DL (2.3-4.7); POTASSIUM 4.1 MMOL/L (3.6-5.0); TOTAL PROTEIN 5.1 GM/DL (6.4-8.2)
--- NOTE | 2019-09-20 02:47 | NUR ---
PATIENT TO CT WITH PORTABLE VENT, [id number] Addendum: 09/20/19 at 0247 by MERVIN STAFFORD RT Amended: Links added.
[2019-09-20] MEDS ORDERED: PROPOFOL DRIP (ICU) 100 ML IV ONE (03:44)
--- NOTE | 2019-09-20 04:10 | Pulmonary Consultation ---
History of Present Illness History of Present Illness Date Seen by Provider: Sep 20, 2019 Time Seen by Provider: 04:04 Date of Admission History of Present Illness 54yo with hx of chronic pain presented to ED secondary to MS changes she was dx with acute PNA with respiratory failure in the ED. While in the ED she continue to have progressive respiratory failure and was intubated. Through the night she has continued to have worsening respiratory failure and is now on high PEEP and FI02. I discussed with EICU doctor through the night. I am consulted for pulmonary/CC management. Allergies and Home Medications Allergies Coded Allergies: No Known Drug Allergies (Unverified , 04/29/19) Home Medications Albuterol Sulfate 1 Puff Puff, 2 PUFF INH DAILY, (Reported) 1 PUFF = 90 MCG Aspirin 81 Mg Tab.chew, 81 MG PO DAILY Prescribed by: JESS CONLEY on 09/07/18 145 Buprenorphine HCl/Naloxone HCl 1 Each Film, 1 EACH SL TID, (Reported) Fluticasone/Salmeterol 1 Each Blst.w.dev, 2 EACH IH DAILY, (Reported) Furosemide 40 Mg Tablet, 40 MG PO DAILY Prescribed by: JESS CONLEY on 09/07/18 145 Lisinopril/Hydrochlorothiazide 1 Each Tablet, 1 EACH PO BID, (Reported) Metoprolol Tartrate 100 Mg Tablet, 150 MG PO BID, (Reported) Potassium Chloride 20 Meq Tablet.er, 20 MEQ PO DAILY Prescribed by: JESS CONLEY on 09/07/18 145 Tiotropium [place] 1 Inh Aerp, 2 INH IH DAILY, (Reported) Past Hqgxohu-Lfmyqm-Qasgps Hx Past Med/Social Hx: Reviewed Nursing Past Med/Soc Hx Patient Social History Alcohol Use: Regular Use Number of Drinks Today: 0 Alcohol Beverage of Choice: Whiskey Recreational Drug Use: No Smoking Status: Current Everyday Smoker Type Used: Cigarettes 2nd Hand Smoke Exposure: Yes Recent Foreign Travel: No Contact w/Someone Who Travel: No Recent Infectious Disease Expo: No Recent Hopitalizations: Yes (PLANTAR FASCITIS) Physical Abuse: No Sexual Abuse: No Immunizations Up To Date Tetanus Booster (TDap): Unknown Past Medical History Surgeries: Yes Hysterectomy Respiratory: Yes Pneumonia, Chronic Bronchitis, COPD Cardiac: Yes Hypertension Neurological: No 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 Disorders: Yes Female 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 Disorders: Denies Sexually Transmitted Disease: No HIV/AIDS: No Gastrointestinal: Yes Gastroesophageal Reflux Musculoskeletal: No Endocrine: No Cancer: No Psychosocial: Yes Bipolar, Depression Blood Disorders: No Adverse Reaction/Blood Tranf: No Family Medical History Reviewed Nursing Family Hx Cerebrovascular accident (CVA) 19 FATHER, Onset:60 years & older FH: testicular cancer G8 BROTHER, Onset:30's - 40 Hypertension 19 FATHER, Onset:Unknown 19 MOTHER, Onset:Unknown G8 BROTHER, Onset:Unknown G8 BROTHER, Onset:Unknown Myocardial infarction 19 FATHER, Onset:40's - 50 Heart Disease, Hypertension Review of Systems Time Seen by Provider: 04:30 Sepsis Event Evaluation Height, Weight, BMI Height: 5'5.00" Weight: 218lbs. 0.0oz. 98.516225hr; 34.07 BMI Method:Stated Exam Exam Vital Signs Date Time Temp Pulse Resp B/P (MAP) Pulse Ox O2 Delivery O2 Flow Rate FiO2 09/20/19 02:58 89 18 91 100 09/20/19 02:00 90 90/67 (75) 84 Mechanical Ventilator 100.00 09/20/19 01:00 84 22 134/86 (102) 87 Mechanical Ventilator 100.00 09/20/19 01:00 88 09/20/19 00:00 87 127/76 (93) 88 Mechanical Ventilator 100.00 09/19/19 23:00 87 27 104/64 (77) 86 Mechanical Ventilator 100.00 09/19/19 22:00 87 17 96/62 (73) 88 Mechanical Ventilator 100.00 09/19/19 21:45 86 17 95/59 (71) 89 Mechanical Ventilator 100.00 09/19/19 21:30 96 17 110/62 (78) 90 Mechanical Ventilator 100.00 09/19/19 21:19 128 18 91 100 09/19/19 21:15 142 96/59 (71) 92 Mechanical Ventilator 100.00 09/19/19 21:00 128 112/65 (81) 94 Mechanical Ventilator 100.00 09/19/19 20:45 131 17 118/69 (85) 94 Mechanical Ventilator 100.00 09/19/19 20:31 134 09/19/19 20:30 130 09/19/19 20:30 130 09/19/19 20:30 133 124/66 (85) Mechanical Ventilator 100.00 09/19/19 20:15 37.7 138 18 100/65 92 Mechanical Ventilator 09/19/19 19:54 100 09/19/19 19:46 116 116/73 09/19/19 19:30 120 18 95 90 09/19/19 16:52 160 90 09/19/19 15:27 95 Vapotherm 40.00 60 09/19/19 15:03 93 Vapotherm 40.00 100 09/19/19 14:53 80 OxyMask 15.00 100 09/19/19 14:49 38.0 162 40 117/75 (89) 85 OxyMask I & O 09/20/19 07:00 Intake Total 3700 ml Balance 3700 ml Height & Weight Height: 5'5.00" Weight: 218lbs. 0.0oz. 98.850250mf; 34.07 BMI Method:Stated General Appearance: WD/WN, Obese, Other (sedated on vent) HEENT: PERRL/EOMI, Other (dry mucous membranes) Neck: Non Tender, Supple Respiratory: No Accessory Muscle Use, Decreased Breath Sounds Cardiovascular: No Murmur, Tachycardia Capillary Refill: Less Than 3 Seconds Extremity: Other (edema right greater than left with erythema of both lower extremities) Neurologic/Psychiatric: Other (awake still verbal and answers a few simple questions. Follows some simple commands.) Results Lab Laboratory Tests 09/19/19 15:00 09/19/19 15:45 09/20/19 01:54 Assessment/Plan Assessment/Plan Acute on chronic respiratory failure -Continue vent -Propofol, Fentanyl, Versed, propofol, precedex -Check bilateral dopplers Bilateral PNA - probable aspiration -will do bronchoscopy this AM -Continue Vanco/Zosyn -Influenza is negative -Thakkar cultures pending ARDS - Pa02/Fi02 =68 COPDAE -Duoneb -Steroids Septic shock -Currently on Levophed -Start SoluCortef Afib/Flutter RVR -Cardizem gtt -Cardiology following JACLYN SAVAGE DO Sep 20, 2019 04:09 POS
[2019-09-20] MEDS ORDERED: SODIUM PHOSPHATE INJ 15 MM in D5W 100 ML IVPB 100 ML IV ONE (04:30)
[2019-09-20] MEDS ORDERED: MAGNESIUM 1 GM/100 ML IVPB 100 ML IV ONE (04:30)
[2019-09-20] MEDS ORDERED: PROPOFOL DRIP IV SCH (04:30)
[2019-09-20] MEDS ORDERED: ENOXAPARIN 40 MG/0.4 ML (LOVENOX) SYR SC SCH (04:30)
[2019-09-20] MEDS: LACTATED RINGERS 1,000 ML IV SCH ×6 (05:10→18:53)
[2019-09-20] MEDS: MIDAZOLAM DRIP 50 MG/NS 90 ML IV SCH ×6 (05:11→23:46)
[2019-09-20] MEDS: VASOPRESSIN INJECTION 20 UNIT in NORMAL SALINE 100 ML IV SCH ×3 (05:59→21:56)
[2019-09-20 06:00] LABS: AMMONIA 31 UMOL/L (11-32); AMYLASE 46 U/L (25-125); LIPASE 54 U/L (8-78)
[2019-09-20] MEDS ORDERED: RT-ALBUTEROL/IPRATROPIUM 3 ML (DUONEB) VIAL INH SCH (06:00)
[2019-09-20] MEDS: MAGNESIUM 1 GM/100 ML IVPB 100 ML IV SCH (06:05)
[2019-09-20] MEDS: POTASSIUM CL 10MEQ/50ML IVPB 50 ML IV SCH (06:05)
[2019-09-20] MEDS: KCL 20 MEQ TAB (K-DUR) PO SCH (06:06)
[2019-09-20] MEDS: HYDROCORTISONE 100 MG/2 ML (Solu-CORTEF) VIAL IV SCH ×3 (06:36→22:18)
[2019-09-20] MEDS ORDERED: fentaNYL INJECTION 100 MCG/2 ML AMP ONE (06:43)
[2019-09-20] MEDS ORDERED: MIDAZOLAM 5 MG/5 ML (VERSED) VIAL ONE (06:43)
[2019-09-20] MEDS ORDERED: fentaNYL INJECTION 100 MCG/2 ML AMP IVP ONE (07:15)
[2019-09-20] MEDS ORDERED: MIDAZOLAM 5 MG/5 ML (VERSED) VIAL IVP ONE (07:15)
--- NOTE | 2019-09-20 07:26 | Pulmonary Procedures ---
Pulmonary Procedures Date of Procedure Date of Service: Sep 20, 2019 Bronch Bronchoscopy with bilateral bronchial washes. Preop DX respiratory failure aspiration pneumonia Postop DX: copious amounts of thick yellow sputum (pic taken) Complications: none After informed consent obtained and formal time out pt was sedated using Fentanyl propofol, and Versed. Bronchoscope was advanced through the nare and vocal cords. An anatomical tour was undertaken down to the segmental bronchi bilaterally. No endobronchial lesions noted. Bronchoscopy with bilateral bronchial washes were obtained. Pt tolerated procedure well. No complications noted. Stat CXR is pending. JACLYN SAVAGE DO Sep 20, 2019 07:26 POS
--- NOTE | 2019-09-20 07:49 | Consultation-Cardiology ---
HPI-Cardiology Cardiology Consultation: Date of Consultation 09/20/19 Time Seen by a Provider: 08:25 Date of Admission 09-19-19 Attending Physician Deepa Chopra MD Admitting Physician García Hicks DO Consulting Physician DELROY MUNOZ HPI: Chief Complaint: A-fib/flutter Ms. Medellin is a 54 year old female admitted to ICU 9 from the ED. She is currently intubated and sedated. Per review of ED reports she was found at home by family with AMS, concerns of heavy ETOH abuse and possible narcotic use following the passing of her spouse. She was brought to the ED and found to be hypoxic. She was also found to be in a-fib with uncontrolled rate. She was intubated. OG tube was placed with bloody return. No family is available at this time. Review of Systems-Cardiology Review of Systems Other comments D/t intubation and sedation no ROS was able to be obtained. Information per chart review is as per HPI AQO-Hkiglh-Qwrwlu Hx Patient Social History Alcohol Use: Regular Use Recreational Drug Use: No Smoking Status: Current Everyday Smoker Type Used: Cigarettes 2nd Hand Smoke Exposure: Yes Recent Foreign Travel: No Recent Infectious Disease Expo: No Hospitalization with Isolation: Denies Immunizations Up To Date Tetanus Booster (TDap): Unknown Past Medical History PMH As described under Assessment. Family Medical History Family Medical History: Unable to provide any h/o d/t intubation and sedation. Review of chart shows father had an [place], CVA and HTN. Mother with h/o HTN. Family History: Cerebrovascular accident (CVA) 19 FATHER, Onset:60 years & older FH: testicular cancer G8 BROTHER, Onset:30's - 40 Hypertension 19 FATHER, Onset:Unknown 19 MOTHER, Onset:Unknown G8 BROTHER, Onset:Unknown G8 BROTHER, Onset:Unknown Myocardial infarction 19 FATHER, Onset:40's - 50 Allergies and Home Medications Allergies Coded Allergies: No Known Drug Allergies (Unverified , 04/29/19) Home Medications Albuterol Sulfate 18 Gm Hfa.aer.ad, 2 PUFF INH Q4H PRN for SHORTNESS OF BREATH, (Reported) Aspirin 81 Mg Tab.chew, 81 MG PO DAILY, (Reported) LAST FILLED #36 07-29-19 Atorvastatin Calcium 40 Mg Tablet, 40 MG PO HS, (Reported) Buprenorphine HCl/Naloxone HCl 1 Each Film, 1 FILM SL TID, (Reported) Clorazepate Dipotassium 3.75 Mg Tablet, 3.75 MG PO TID PRN for ANXIETY, (Reported) Fluoxetine HCl 10 Mg Tablet, 10 MG PO DAILY, (Reported) LAST FILLED #30 07-18-19 Fluticasone/Salmeterol 1 Each Blst.w.dev, 1 PUFF IH BID, (Reported) LAST FILLED 07-30-19 #60 Furosemide 40 Mg Tablet, 40 MG PO DAILY, (Reported) LAST FILLED #30 04-29-19 Gabapentin 600 Mg Tablet, 600 MG PO TID, (Reported) Ipratropium/Albuterol Sulfate 3 Ml Ampul.neb, 3 ML NEB QID PRN for SHORTNESS OF BREATH, (Reported) Lisinopril/Hydrochlorothiazide 1 Each Tablet, 1 TAB PO BID, (Reported) LAST FILLED #60 07-08-19 Metolazone 2.5 Mg Tablet, 2.5 MG PO MoTh PRN for SWELLING, (Reported) Metoprolol Tartrate 100 Mg Tablet, 150 MG PO BID, (Reported) LAST FILLED #90 08-05-19 Ondansetron 4 Mg Tab.rapdis, 4 MG PO Q4H PRN for NAUSEA/VOMITING-1ST LINE, (Reported) Potassium Chloride 20 Meq Tablet.er, 20 MEQ PO DAILY, (Reported) Pregabalin 150 Mg Capsule, 150 MG PO BID, (Reported) Tiotropium [place] 4 Gm Mist.inhal, 1-2 PUFF INH DAILY, (Reported) Physical Exam-Cardiology Physical Exam Vital Signs/I&O 09/20/19 09/20/19 09/20/19 09/20/19 05:00 05:11 06:00 06:46 Pulse 91 89 93 91 Resp 18 17 B/P (MAP) 75/42 (53) 103/73 (83) Pulse Ox 80 88 O2 Delivery Mechanical Ventilator Mechanical Ventilator O2 Flow Rate 100.00 100.00 09/20/19 09/20/19 09/20/19 09/20/19 07:00 07:45 08:00 08:00 Temp 37.3 Pulse 92 Resp 20 20 B/P (MAP) 100/64 (76) 89/59 (69) Pulse Ox 90 95 O2 Delivery Mechanical Ventilator Mechanical Ventilator Mechanical Ventilator O2 Flow Rate 100.00 100.00 FiO2 100 12/17/19 12/17/19 12/17/19 12/17/19 08:59 09:00 09:29 10:00 Pulse 90 130 121 Resp 18 19 17 B/P (MAP) 132/82 (99) 138/76 125/75 (92) Pulse Ox 95 97 96 O2 Delivery Mechanical Ventilator Mechanical Ventilator O2 Flow Rate 100.00 100.00 FiO2 100 09/20/19 09/20/19 09/20/19 09/20/19 10:35 10:51 11:48 11:54 Pulse 120 161 Resp 18 B/P (MAP) 129/66 Pulse Ox 96 88 O2 Delivery Mechanical Ventilator O2 Flow Rate 80.00 FiO2 100 100 09/20/19 09/20/19 09/20/19 09/20/19 11:55 12:00 12:00 12:49 Temp 38.6 Pulse 126 Pulse Ox 92 O2 Delivery Mechanical Ventilator Mechanical Ventilator O2 Flow Rate 100.00 FiO2 100 09/20/19 09/20/19 14:39 14:47 Pulse 125 Resp 24 B/P (MAP) 117/75 Pulse Ox 96 FiO2 100 09/20/19 00:00 Intake Total 4300 ml Output Total 350 ml Balance 3950 ml Capillary Refill : Less Than 3 Seconds Constitutional: well-developed, well-nourished, other (intubated and sedated) Neck: No carotid bruit; carotid pulses are 2 + bilaterally Respiratory: No accessory muscle use, No respiratory distress; chest expansion is symmetric, other (fair air entry; intubated) Cardiovascular: irregularly irregular; No JVD; S1 and S2 Gastrointestinal: audible bowel sounds Extremities: other (mod bilat LE swelling) Skin: warm/dry Data Review Labs Laboratory Tests 09/19/19 17:48: Lactic Acid Level 1.04 09/19/19 21:07: Blood Gas Puncture Site RIGHT RADIAL, Blood Gas Patient Temperature 36.5, Arterial Blood pH 7.35L, Arterial Blood Partial Pressure CO2 65H, Arterial Blood Partial Pressure O2 82, Arterial Blood HCO3 35H, Arterial Blood Total CO2 36.9H, Arterial Blood Oxygen Saturation 96, Arterial Blood Base Excess 9.0H, Jame Test YES-POS, Blood Gas Ventilator Setting YES, Blood Gas Inspired Oxygen 100% 09/20/19 00:22: Glucometer 226H 09/20/19 00:50: Blood Gas Puncture Site LEFT RADIAL, Blood Gas Patient Temperature 36.4, Arterial Blood pH 7.40, Arterial Blood Partial Pressure CO2 55H, Arterial Blood Partial Pressure O2 68L, Arterial Blood HCO3 34H, Arterial Blood Total CO2 35.6H , Arterial Blood Oxygen Saturation 93L, Arterial Blood Base Excess 8.9H, Jame Test YES-POS, Blood Gas Ventilator Setting YES, Blood Gas Inspired Oxygen 100% 09/20/19 01:54: White Blood Count 10.9, Red Blood Count 3.80L, Hemoglobin 12.2, Hematocrit 38, Mean Corpuscular Volume 100H, Mean Corpuscular Hemoglobin 32, Mean Corpuscular Hemoglobin Concent 32, Red Cell Distribution Width 15.8H, Platelet Count 224, Mean Platelet Volume 10.3, Neutrophils (%) (Auto) 84H, Lymphocytes (%) (Auto) 11L, Monocytes (%) (Auto) 5, Eosinophils (%) (Auto) 0, Basophils (%) (Auto) 0, Neutrophils # (Auto) 9.2H, Lymphocytes # (Auto) 1.2, Monocytes # (Auto) 0.5, Eosinophils # (Auto) 0.0, Basophils # (Auto) 0.0, Sodium Level 140, Potassium Level 4.1, Chloride Level 98, Carbon Dioxide Level 29, Anion Gap 13, Blood Urea Nitrogen 43H, Creatinine 1.17, Estimat Glomerular Filtration Rate 48, BUN/Creatinine Ratio 37, Glucose Level 194H, Calcium Level 8.8, Corrected Calcium 9.9, Phosphorus Level 2.5, Magnesium Level 1.8, Total Bilirubin 0.7, Aspartate Amino Transf (AST/SGOT) 29, Alanine Aminotransferase (ALT/SGPT) 27, Alkaline Phosphatase 84, Total Protein 5.1L, Albumin 2.6L 09/20/19 05:31: Ammonia 31, Troponin I 0.130H, Amylase Level 46, Lipase 54 09/20/19 11:55: Glucometer 208H 09/20/19 15:39: Blood Gas Puncture Site LEFT RADIAL, Blood Gas Patient Temperature 38.1, Arterial Blood pH 7.23*L, Arterial Blood Partial Pressure CO2 78*H, Arterial Blood Partial Pressure O2 125H, Arterial Blood HCO3 31H, Arterial Blood Total CO2 33.0H, Arterial Blood Oxygen Saturation 98, Arterial Blood Base Excess 3.9H, Jame Test POSITIVE, Blood Gas Ventilator Setting YES, Blood Gas Inspired Oxygen 100% Microbiology 09/19/19 Gram Stain, Resulted Pending 09/19/19 Sputum Culture - Preliminary, Resulted Gram Negative [facility] NAME: ZEKE MEDELLIN [facility] REC#: [id number] PT STATUS: ADM IN : 1965 PHYSICIAN: SAMANTHA BUENO MD ADMIT DATE: 09/19/19/ICU Draft Date of Exam:09/20/19 CT ANGIO CHEST W PROCEDURE: CT angiography of the chest with contrast. TECHNIQUE: Multiple contiguous axial images were obtained through the chest after uneventful bolus administration of intravenous contrast. 3D reconstructed CTA MIP acquisitions were also performed. Auto Exposure Controls were utilized during the CT exam to meet ALARA standards for radiation dose reduction. DATE: September 20, 2019. COMPARISON: Chest September 20, 2019. INDICATION: 54-year-old female, decreasing oxygen saturations. Concern for pulmonary embolus. FINDINGS: There is a somewhat spiculated appearing right upper lobe pulmonary nodule measuring 10.5 mm in size on axial image 57. There is a wedge-shaped area of consolidation in the right middle lobe without homogeneous enhancement. There is some associated volume loss. There is extensive airspace consolidation in the right lower lobe which does not homogeneously enhance without prominent components of volume loss. There is additional tree-in-bud nodularity in the right lower lobe. There is nonspecific airspace consolidation in the inferior aspect of the left lower lobe and more extensive airspace consolidation which does not homogeneously enhance in the left lower lobe. There is no pneumothorax. There is no sizable pleural effusion. The endotracheal tube is below the thoracic inlet and above the jhon. There is no identified pulmonary embolus. The main pulmonary artery diameter is abnormally dilated at 3.5 cm which is suggestive of pulmonary artery hypertension. The heart is not enlarged. There is no pericardial effusion. There are AP window lymph nodes on axial image 47 measuring up to 11 mm in short axis. There is a precarinal lymph node which measures 10 mm in short axis. There is a trace amount of ascites. There is nonspecific bilateral perinephric stranding. There is an enteric tube present within the stomach. There are atherosclerotic calcifications. There is no identified acute bony abnormality. IMPRESSION: CT CHEST. 1. No identified pulmonary embolus. Dilated main pulmonary artery diameter suggesting pulmonary artery hypertension. 2. Extensive airspace consolidation in the right middle lobe, right lower lobe, left lower lobe, and left upper lobe which may relate to aspiration, pneumonia, or other alveolar consolidative process. The tree-in-bud nodularity in the right lower lobe is suggestive of a process spreading via endobronchial gisselle likely aspiration or an infectious bronchiolitis. 3. Somewhat spiculated appearing right upper lobe pulmonary nodule measuring 10.5 mm in size may relate to the alveolar consolidative process although this is not certain. Recommend short-term follow-up CT chest in one to 2 months to evaluate for potential resolution following treatment. 4. Trace amount of ascites. Dictated on workstation # [id number] Dict: 09/20/19 0623 Trans: 09/20/19 0825 [facility] [id number] Interpreted by: JUAN MIGUEL RIVERA MD Electronically signed by: A/P-Cardiology Assessment/Admission Diagnosis Acute resp failure requiring intubation Aspiration pneumonia PAF/flutter with uncontrolled rate Hypotension Suspected UGI bleed Elevated troponin - likely type 2 [place] d/t hypoxia Card cath of 09/07/18: minimal CAD, LVEF 70-75%, elevated LVEDP Echo of 01/05/19: LVEF 65-70%, mild to mod conc LVH. (Vague h/o MVP diagnosed when she was in her 20s. None seen on recent echo) Hypertension H/o opiate addiction ETOH abuse Chronic tobacco use Fam h/o early CAD Hyperlipidemia Borderline DM II (fasting blood glucose on 09/07/18) Carotid u/s on 01/05/19: no significant dz Discussion and Recomendations Complex management Currently in a-fib/flutter with uncontrolled rate - however, d/t hypotension she is unable to tyra CCB At time of OG tube placement bloody return, suspected UGI bleed - therefore anticoagulation had been held; Lovenox, low dose is being given; H/H is stable Management of pneumonia is per pulmonary services Give IV Dig to help control HR, which will not have an effect on blood pressure Monitor lab closely Further recs will be based on her hospital course Clinical Quality Measures DVT/VTE Risk/Contraindication: Risk Factor Score Per Nursin RFS Level Per Nursing on Admit: 4+=Very High DELROY TURNER Sep 20, 2019 07:49 POS
[2019-09-20] MEDS ORDERED: FLU QUADRIvalent (5+ YOA) 2019-2020 (AFLURIA) 0.5 ML IM ONE (08:00)
[2019-09-20] MEDS: RT-ALBUTEROL/IPRATROPIUM 3 ML (DUONEB) VIAL INH SCH ×5 (08:16→21:46)
--- NOTE | 2019-09-20 08:25 | Diagnostic Imaging Report ---
PROCEDURE: CT angiography of the chest with contrast. TECHNIQUE: Multiple contiguous axial images were obtained through the chest after uneventful bolus administration of intravenous contrast. 3D reconstructed CTA MIP acquisitions were also performed. Auto Exposure Controls were utilized during the CT exam to meet ALARA standards for radiation dose reduction. DATE: September 20, 2019. COMPARISON: Chest September 20, 2019. INDICATION: 54-year-old female, decreasing oxygen saturations. Concern for pulmonary embolus. FINDINGS: There is a somewhat spiculated appearing right upper lobe pulmonary nodule measuring 10.5 mm in size on axial image 57. There is a wedge-shaped area of consolidation in the right middle lobe without homogeneous enhancement. There is some associated volume loss. There is extensive airspace consolidation in the right lower lobe which does not homogeneously enhance without prominent components of volume loss. There is additional tree-in-bud nodularity in the right lower lobe. There is nonspecific airspace consolidation in the inferior aspect of the left lower lobe and more extensive airspace consolidation which does not homogeneously enhance in the left lower lobe. There is no pneumothorax. There is no sizable pleural effusion. The endotracheal tube is below the thoracic inlet and above the jhon. There is no identified pulmonary embolus. The main pulmonary artery diameter is abnormally dilated at 3.5 cm which is suggestive of pulmonary artery hypertension. The heart is not enlarged. There is no pericardial effusion. There are AP window lymph nodes on axial image 47 measuring up to 11 mm in short axis. There is a precarinal lymph node which measures 10 mm in short axis. There is a trace amount of ascites. There is nonspecific bilateral perinephric stranding. There is an enteric tube present within the stomach. There are atherosclerotic calcifications. There is no identified acute bony abnormality. IMPRESSION: CT CHEST. 1. No identified pulmonary embolus. Dilated main pulmonary artery diameter suggesting pulmonary artery hypertension. 2. Extensive airspace consolidation in the right middle lobe, right lower lobe, left lower lobe, and left upper lobe which may relate to aspiration, pneumonia, or other alveolar consolidative process. The tree-in-bud nodularity in the right lower lobe is suggestive of a process spreading via endobronchial gisselle likely aspiration or an infectious bronchiolitis. 3. Somewhat spiculated appearing right upper lobe pulmonary nodule measuring 10.5 mm in size may relate to the alveolar consolidative process although this is not certain. Recommend short-term follow-up CT chest in one to 2 months to evaluate for potential resolution following treatment. 4. Trace amount of ascites. Dictated by: Dictated on workstation # [id number]
--- NOTE | 2019-09-20 08:26 | Diagnostic Imaging Report ---
EXAMINATION: Chest radiograph, portable AP view. DATE: 09/20/2019 1:08 AM hours. INDICATION: 54-year-old female, decreasing oxygen saturations. COMPARISON: September 19, 2019. FINDINGS: The endotracheal tube is approximately 5.3 cm above the jhon. The nasogastric tube extends to the inferior margin of the field of view. Right internal jugular central venous line overlies the mid SVC. Heart size and mediastinal contours are unchanged. There is no identified pneumothorax. There is nonspecific bibasilar airspace consolidation. IMPRESSION: 1. Unchanged nonspecific bibasilar airspace consolidation with probable bilateral pleural effusions. 2. Support lines and tubes as above. Dictated by: Dictated on workstation # [id number]
--- NOTE | 2019-09-20 08:50 | Diagnostic Imaging Report ---
EXAMINATION: Chest radiograph, portable AP view. DATE: 09/20/2019 7:51 AM. INDICATION: 54-year-old female, status post bronchoscopy. COMPARISON: September 20, 2019. FINDINGS: The endotracheal tube is approximately 5.5 cm above the jhon. The nasogastric tube extends below the field of view. The right internal jugular central venous line overlies the mid SVC. Stable overall appearance of the cardiomediastinal silhouette. There is no identified pneumothorax. There is mid and lower lung zone consolidation bilaterally which is unchanged. IMPRESSION: 1. Unchanged mid and lower lung zone consolidation bilaterally with potential bilateral pleural effusions. 2. Support lines and tubes as above. Dictated by: Dictated on workstation # [id number]
[2019-09-20] MEDS ORDERED: DIGOXIN 0.25 MG/ML (LANOXIN) 2 ML AMP IV NR (09:00)
[2019-09-20] MEDS: fentaNYL 1,250 MCG/NS 250 ML DRIP IV SCH ×4 (09:28→14:11)
[2019-09-20] MEDS: DEXMEDETOMIDINE 1,000 MCG/NS 250 ML IV SCH ×4 (09:30→16:02)
[2019-09-20] MEDS: THIAMINE INJECTION 100 MG, FOLIC ACID INJECTION 1 MG, VITAMIN MULTI INJECTION 10 ML, MA... IV SCH ×5 (10:08)
[2019-09-20] MEDS: DIGOXIN 0.25 MG/ML (LANOXIN) 2 ML AMP IV SCH (10:08)
--- NOTE | 2019-09-20 10:13 | Physical Therapy Progress Note ---
Therapy Progress Note Patient is currently sedated and intubated. PT will continue to monitor patient medical status and begin when medically stable and able to actively participate with skilled therapy. MERVIN PETERSON PT Sep 20, 2019 10:13 POS
[2019-09-20] MEDS ORDERED: TIOT4MIS2 INH (10:26)
[2019-09-20] MEDS ORDERED: POTA-51 PO (10:26)
[2019-09-20] MEDS ORDERED: ONDA4TAB11 PO (10:26)
[2019-09-20] MEDS ORDERED: ALBU18HF2 INH (10:26)
[2019-09-20] MEDS ORDERED: GBPN600T PO (10:26)
[2019-09-20] MEDS ORDERED: CLOR3.755 PO (10:26)
[2019-09-20] MEDS ORDERED: METO2.5T PO (10:26)
[2019-09-20] MEDS ORDERED: IPRA3AMP31 NEB (10:26)
[2019-09-20] MEDS ORDERED: ATOR40TA70 PO (10:26)
[2019-09-20] MEDS ORDERED: PREG150C PO (10:26)
--- NOTE | 2019-09-20 10:44 | Diagnostic Imaging Report ---
Clinical indication: Patient with bilateral lower extremity edema. Comparison: None Procedure: Real-time bilateral lower extremity venous Doppler duplex evaluation is performed from the inguinal region through the popliteal fossa. The calf venous structures are also evaluated. Findings: The left lower extremity demonstrates normal compressibility and spontaneous Doppler flow and is augmentable with no evidence of deep venous thrombosis. The right lower extremity shows no compressibility of the proximal right superficial femoral vein. There is occlusive intravascular thrombus seen from the proximal right superficial femoral vein extending all the way through to the popliteal vein. There is no Doppler flow in the area of the peroneal vein and posterior tibial vein also concerning for occlusion. Impression: 1: There is the deep venous thrombosis involving the right lower extremity beginning in the proximal superficial femoral vein extending all the way through the calf veins, as described above. 2: There is no deep venous thrombosis involving the left lower extremity. Results of this report were discussed with Dr. Nathanael Escobar via the telephone on 09/20/2019 at 1035 hours. Dictated by: Dictated on workstation # [id number]
[2019-09-20] MEDS: VANCOMYCIN INJECTION 1,250 MG in NS (IVPB) 250 ML IV SCH ×2 (10:45→22:18)
--- NOTE | 2019-09-20 11:00 | NUR ---
Daughter Florinda and mother Doris took patient personal belongings including purse with them at this time.
--- NOTE | 2019-09-20 11:05 | Occ Therapy Progress Note ---
Therapy Progress Note Order received for OT eval and treat. Chart review completed. Patient is currently sedated and intubated. Will continue to monitor and initiate when pt able to actively participate with skilled therapy. YOKASTA PECK OT Sep 20, 2019 11:05 POS
[2019-09-20] MEDS ORDERED: FLUO10TA PO (11:11)
[2019-09-20] MEDS ORDERED: ASPI-999 PO (11:13)
[2019-09-20] MEDS ORDERED: FURO40TA4 PO (11:13)
--- NOTE | 2019-09-20 11:19 | NUR ---
UNABLE TO SPEAK WITH THE PATIENT ABOUT HER MEDICATIONS. FAMILY STATES SHE HANDLES HER OWN MEDS AT HOME AND ALL THEY KNOW IS SHE GOES TO [facility] AND SEES DR. JOYNER. I HAD A LIST FAXED OVER FROM DR. JOYNER'S OFFICE AND COMPARED IT WITH THE EXT MED HX SHOWING WHAT [facility] HAS FILLED. SOME OF THE MEDICATIONS ARE PAST DUE FOR REFILL, I NOTED THE DATES ON THE MED REC. THEY ARE FOLLOWS: 08-05-19 METOPROLOL TARTRATE 100MG 1 & 1/2 TAB BID #90 07-30-19 ADVAIR 250-50 1 PUFF BID #60 07-29-19 ASPIRIN 81MG CHEW DAILY #36 07-18-19 FLUOXETINE 10MG DAILY #30 07-08-19 LISINOPRIL HCTZ 20-12.5MG BID #60 04-29-19 FUROSEMIDE 40MG DAILY #30 IN ADDITION TO THE LIST FROM DR. JOYNER'S OFFICE SHE HAS FILLED POTASSIUM, ATORVASTATIN, AND ASPIRIN THAT ARE PRESCRIBED BY DR. CONLEY. I ADDED THEM TO THE MED REC NOW. THE LASIX PRESCRIBED BY DR. CONLEY IS ON THE LIST FROM DR. JOYNER'S OFFICE HOWEVER IT IS SIGNIFICANTLY PAST DUE.
--- NOTE | 2019-09-20 11:25 | NUR ---
Pastoral care visit, pt on vent, father at bedside. I sat with father for sometime and he shared much pf pts story, loss of her a year ago and some difficult dynamics involving pts children.
[2019-09-20] MEDS ORDERED: meTOprolol 5 MG/5 ML (LOPRESSOR) VIAL ONE (11:46)
[2019-09-20] MEDS ORDERED: meTOprolol 5 MG/5 ML (LOPRESSOR) VIAL IV ONE (12:00)
--- NOTE | 2019-09-20 12:13 | Consultation-Cardiology ---
HPI-Cardiology Cardiology Consultation: Date of Consultation 09/20/19 Time Seen by a Provider: 10:00 Date of Admission Attending Physician Deepa Chopra MD Admitting Physician García Hicks DO Consulting Physician JESS CONLEY MD, MA, FACP, FACC, FSCAI, CCDS HPI: Chief Complaint: Reason for consultation: A-fib/flutter HPI Ms. Hicks is a 54 year old female admitted to ICU 9 from the ED. She is currently intubated and sedated. Per review of ED reports she was found at home by family with AMS, concerns of heavy ETOH abuse and possible narcotic use following the passing of her spouse. She was brought to the ED and found to be hypoxic. She was also found to be in a-fib with uncontrolled rate. She was intubated. OG tube was placed with bloody return. No family is available at this time. Review of Systems-Cardiology Review of Systems Constitutional: other (she is intubated and on mech vent and not able to provide history ) YCU-Pygjia-Urksvw Hx Patient Social History Alcohol Use: Regular Use Recreational Drug Use: No Smoking Status: Current Everyday Smoker Type Used: Cigarettes 2nd Hand Smoke Exposure: Yes Recent Foreign Travel: No Recent Infectious Disease Expo: No Hospitalization with Isolation: Denies Immunizations Up To Date Tetanus Booster (TDap): Unknown Past Medical History PMH As described under Assessment. Family Medical History Family Medical History: Unable to provide any h/o d/t intubation and sedation. Review of chart shows father had an NH, CVA and HTN. Mother with h/o HTN. Family History: Cerebrovascular accident (CVA) 19 FATHER, Onset:60 years & older FH: testicular cancer G8 BROTHER, Onset:30's - 40 Hypertension 19 FATHER, Onset:Unknown 19 MOTHER, Onset:Unknown G8 BROTHER, Onset:Unknown G8 BROTHER, Onset:Unknown Myocardial infarction 19 FATHER, Onset:40's - 50 Allergies and Home Medications Allergies Coded Allergies: No Known Drug Allergies (Unverified , 04/29/19) Home Medications Albuterol Sulfate 18 Gm Hfa.aer.ad, 2 PUFF INH Q4H PRN for SHORTNESS OF BREATH, (Reported) Aspirin 81 Mg Tab.chew, 81 MG PO DAILY, (Reported) LAST FILLED #36 07-29-19 Atorvastatin Calcium 40 Mg Tablet, 40 MG PO HS, (Reported) Buprenorphine HCl/Naloxone HCl 1 Each Film, 1 FILM SL TID, (Reported) Clorazepate Dipotassium 3.75 Mg Tablet, 3.75 MG PO TID PRN for ANXIETY, (Reported) Fluoxetine HCl 10 Mg Tablet, 10 MG PO DAILY, (Reported) LAST FILLED #30 07-18-19 Fluticasone/Salmeterol 1 Each Blst.w.dev, 1 PUFF IH BID, (Reported) LAST FILLED 07-30-19 #60 Furosemide 40 Mg Tablet, 40 MG PO DAILY, (Reported) LAST FILLED #30 04-29-19 Gabapentin 600 Mg Tablet, 600 MG PO TID, (Reported) Ipratropium/Albuterol Sulfate 3 Ml Ampul.neb, 3 ML NEB QID PRN for SHORTNESS OF BREATH, (Reported) Lisinopril/Hydrochlorothiazide 1 Each Tablet, 1 TAB PO BID, (Reported) LAST FILLED #60 07-08-19 Metolazone 2.5 Mg Tablet, 2.5 MG PO MoTh PRN for SWELLING, (Reported) Metoprolol Tartrate 100 Mg Tablet, 150 MG PO BID, (Reported) LAST FILLED #90 08-05-19 Ondansetron 4 Mg Tab.rapdis, 4 MG PO Q4H PRN for NAUSEA/VOMITING-1ST LINE, (Reported) Potassium Chloride 20 Meq Tablet.er, 20 MEQ PO DAILY, (Reported) Pregabalin 150 Mg Capsule, 150 MG PO BID, (Reported) Tiotropium Renner 4 Gm Mist.inhal, 1-2 PUFF INH DAILY, (Reported) Patient Home Medication List Home Medication List Reviewed: Yes Physical Exam-Cardiology Physical Exam Vital Signs/I&O 09/20/19 09/20/19 09/20/19 09/20/19 01:00 01:00 02:00 02:58 Pulse 88 84 90 89 Resp 22 18 B/P (MAP) 134/86 (102) 90/67 (75) Pulse Ox 87 84 91 O2 Delivery Mechanical Ventilator Mechanical Ventilator O2 Flow Rate 100.00 100.00 FiO2 100 09/20/19 09/20/19 09/20/19 09/20/19 03:00 04:00 04:00 04:00 Temp 35.9 Pulse 89 83 Resp 17 20 B/P (MAP) 118/78 (91) 106/66 (79) Pulse Ox 91 85 O2 Delivery Mechanical Ventilator Mechanical Ventilator Mechanical Ventilator O2 Flow Rate 100.00 100.00 FiO2 100 09/20/19 09/20/19 09/20/19 09/20/19 05:00 05:11 06:00 07:45 Pulse 91 89 93 Resp 18 17 B/P (MAP) 75/42 (53) 103/73 (83) Pulse Ox 80 88 O2 Delivery Mechanical Ventilator Mechanical Ventilator Mechanical Ventilator O2 Flow Rate 100.00 100.00 FiO2 100 09/20/19 09/20/19 09/20/19 09/20/19 08:00 08:59 09:29 10:35 Temp 37.3 Pulse 90 Resp 18 B/P (MAP) 138/76 Pulse Ox 95 O2 Delivery Mechanical Ventilator O2 Flow Rate 80.00 FiO2 100 09/20/19 09/20/19 09/20/19 09/20/19 10:51 11:48 11:54 11:55 Pulse 120 161 Resp 18 B/P (MAP) 129/66 Pulse Ox 96 88 O2 Delivery Mechanical Ventilator O2 Flow Rate 100.00 FiO2 100 100 09/20/19 12:00 Pulse Ox 92 O2 Delivery Mechanical Ventilator FiO2 100 09/19/19 23:59 Intake Total 4300 ml Output Total 350 ml Balance 3950 ml Capillary Refill : Less Than 3 Seconds Constitutional: well-developed, well-nourished, other (intubated and sedated) Neck: No carotid bruit; carotid pulses are 2 + bilaterally Respiratory: No accessory muscle use, No respiratory distress; chest expansion is symmetric, other (fair air entry; intubated) Cardiovascular: irregularly irregular; No JVD; S1 and S2 Gastrointestinal: audible bowel sounds Extremities: other (mod bilat LE swelling) Skin: warm/dry Data Review Labs Laboratory Tests 09/19/19 15:00: White Blood Count 12.4H, Red Blood Count 3.89L, Hemoglobin 12.5, Hematocrit 40, Mean Corpuscular Volume 102H, Mean Corpuscular Hemoglobin 32, Mean Corpuscular Hemoglobin Concent 32, Red Cell Distribution Width 15.5H, Platelet Count 213, Mean Platelet Volume 10.9H, Neutrophils (%) (Auto) 83H, Lymphocytes (%) (Auto) 7L, Monocytes (%) (Auto) 9, Eosinophils (%) (Auto) 0, Basophils (%) (Auto) 0, Neutrophils # (Auto) 10.3H, Lymphocytes # (Auto) 0.9L, Monocytes # (Auto) 1.2H, Eosinophils # (Auto) 0.0, Basophils # (Auto) 0.0, Neutrophils % (Manual) 56, Lymphocytes % (Manual) 16, Monocytes % (Manual) 16, Band Neutrophils 12, Toxic Granulation 1+, Dohle Bodies SLIGHT, Prothrombin Time 14.3, INR Comment 1.1, Activated Partial Thromboplast Time 30 09/19/19 15:04: Blood Gas Puncture Site RIGHT RADIAL, Blood Gas Patient Temperature 38, Arterial Blood pH 7.41, Arterial Blood Partial Pressure CO2 57H, Arterial Blood Partial Pressure O2 60L, Arterial Blood HCO3 35H, Arterial Blood Total CO2 37.1H, Arterial Blood Oxygen Saturation 89L, Arterial Blood Base Excess 10.4H, Jame Test POSITIVE, Blood Gas Ventilator Setting NO, Blood Gas Inspired Oxygen 100% 09/19/19 15:07: Urine Color AMBERH, Urine Clarity SL CLOUDY, Urine pH 5.5, Urine Specific [place] >=1.030, Urine Protein 2+H, Urine Glucose (UA) NEGATIVE, Urine Ketones NEGATIVE, Urine Nitrite NEGATIVE, Urine Bilirubin 2+H, Urine Urobilinogen 1.0, Urine Leukocyte Esterase NEGATIVE, Urine RBC (Auto) TRACE-I, Urine RBC NONE, U rine WBC RARE, Urine Crystals NONE, Urine Bacteria LARGEH, Urine Casts NONE, Urine Mucus LARGEH, Urine Culture Indicated NO, Urine Opiates Screen NEGATIVE, Urine Oxycodone Screen NEGATIVE, Urine Methadone Screen NEGATIVE, Urine Propoxyphene Screen NEGATIVE, Urine Barbiturates Screen NEGATIVE, Ur Tricyclic Antidepressants Screen NEGATIVE, Urine Phencyclidine Screen NEGATIVE, Urine Amphetamines Screen NEGATIVE, Urine Methamphetamines Screen NEGATIVE, Urine Benzodiazepines Screen POSITIVEH, Urine Cocaine Screen NEGATIVE, Urine Cannabinoids Screen NEGATIVE 09/19/19 15:45: Sodium Level 139, Potassium Level 4.3, Chloride Level 94L, Carbon Dioxide Level 33H, Anion Gap 12, Blood Urea Nitrogen 46H, Creatinine 1.53H, Estimat Glomerular Filtration Rate 35, BUN/Creatinine Ratio 30, Glucose Level 217H, Lactic Acid Level 2.05*H, Calcium Level 9.3, Corrected Calcium 10.2H, Total Bilirubin 0.8, Aspartate Amino Transf (AST/SGOT) 39H, Alanine Aminotransferase (ALT/SGPT) 30, Alkaline Phosphatase 88, Troponin I 0.252H, Total Protein 5.6L, Albumin 2.9L, Salicylates Level < 5.0L, Acetaminophen Level < 10L, Serum Alcohol < 10 09/19/19 17:48: Lactic Acid Level 1.04 09/19/19 21:07: Blood Gas Puncture Site RIGHT RADIAL, Blood Gas Patient Temperature 36.5, Ar terial Blood pH 7.35L, Arterial Blood Partial Pressure CO2 65H, Arterial Blood Partial Pressure O2 82, Arterial Blood HCO3 35H, Arterial Blood Total CO2 36.9H, Arterial Blood Oxygen Saturation 96, Arterial Blood Base Excess 9.0H, Jame Test YES-POS, Blood Gas Ventilator Setting YES, Blood Gas Inspired Oxygen 100% 09/20/19 00:22: Glucometer 226H 09/20/19 00:50: Blood Gas Puncture Site LEFT RADIAL, Blood Gas Patient Temperature 36.4, Arterial Blood pH 7.40, Arterial Blood Partial Pressure CO2 55H, Arterial Blood Partial Pressure O2 68L, Arterial Blood HCO3 34H, Arterial Blood Total CO2 35.6H , Arterial Blood Oxygen Saturation 93L, Arterial Blood Base Excess 8.9H, Jame Test YES-POS, Blood Gas Ventilator Setting YES, Blood Gas Inspired Oxygen 100% 09/20/19 01:54: White Blood Count 10.9, Red Blood Count 3.80L, Hemoglobin 12.2, Hematocrit 38, Mean Corpuscular Volume 100H, Mean Corpuscular Hemoglobin 32, Mean Corpuscular Hemoglobin Concent 32, Red Cell Distribution Width 15.8H, Platelet Count 224, Mean Platelet Volume 10.3, Neutrophils (%) (Auto) 84H, Lymphocytes (%) (Auto) 11L, Monocytes (%) (Auto) 5, Eosinophils (%) (Auto) 0, Basophils (%) (Auto) 0, Neutrophils # (Auto) 9.2H, Lymphocytes # (Auto) 1.2, Monocytes # (Auto) 0.5, Eosinophils # (Auto) 0.0, Basophils # (Auto) 0.0, Sodium Level 140, Potassium Level 4.1, Chloride Level 98, Carbon Dioxide Level 29, Anion Gap 13, Blood Urea Nitrogen 43H, Creatinine 1.17, Estimat Glomerular Filtration Rate 48, BUN/Creatinine Ratio 37, Glucose Level 194H, Calcium Level 8.8, Corrected Calcium 9.9, Phosphorus Level 2.5, Magnesium Level 1.8, Total Bilirubin 0.7, Aspartate Amino Transf (AST/SGOT) 29, Alanine Aminotransferase (ALT/SGPT) 27, Alkaline Phosphatase 84, Total Protein 5.1L, Albumin 2.6L 09/20/19 05:31: Ammonia 31, Amylase Level 46, Lipase 54 09/20/19 11:55: Glucometer 208H Microbiology 09/19/19 Gram Stain, Resulted Pending 09/19/19 Sputum Culture - Preliminary, Resulted A/P-Cardiology Assessment/Admission Diagnosis Acute resp failure requiring intubation Aspiration pneumonia PAF/flutter with uncontrolled rate Hypotension Suspected UGI bleed Elevated troponin - likely type 2 NH d/t hypoxia Card cath of 09/07/18: minimal CAD, LVEF 70-75%, elevated LVEDP Echo of 01/05/19: LVEF 65-70%, mild to mod conc LVH. (Vague h/o MVP diagnosed when she was in her 20s. None seen on recent echo) Hypertension H/o opiate addiction ETOH abuse Chronic tobacco use Fam h/o early CAD Hyperlipidemia Borderline DM II (fasting blood glucose on 09/07/18) Carotid u/s on 01/05/19: no significant dz Discussion and Recomendations Complex management Currently in a-fib/flutter with uncontrolled rate - however, d/t hypotension she is unable to tolerate CCB At time of OG tube placement bloody return, suspected UGI bleed - therefore anticoagulation had been held; Lovenox, low dose is being given; H/H is stable Management of pneumonia is per pulmonary services Give IV Dig to help control HR, which will not have an effect on blood pressure Monitor lab closely Further recs will be based on her hospital course Clinical Quality Measures DVT/VTE Risk/Contraindication: Risk Factor Score Per Nursin RFS Level Per Nursing on Admit: 4+=Very High JESS CONLEY MD FACP FAC CCDS Sep 20, 2019 12:13 POS
--- NOTE | 2019-09-20 13:00 | NUR ---
Pastoral care visit with pts father and mother and daughters, had prayer at bedside.
--- NOTE | 2019-09-20 13:18 | History & Physical-Hospitalist ---
ANSELMO DE LA CRUZ [facility] 09/20/19 1318: History of Present Illness HPI/Chief Complaint Helene is a 54 y/o female that presented to via [facility] due to altered mental status. The following information was obtained from ER chart. Patient is currently intubated and sedated and has no family at the bedside at this time. She was brought in via EMS and was reportedly found at home after two days of no contact. She was unresponsive and was sitting in urine. There is concern of alcohol and narcotic use. She currently smokes 3 packs of cigarettes a day. She arrived to the ER with a fever and was hypoxic. The patient is requiring intubation and FiO2 of 100%. She received both chest CT and X-ray. Chest CT is showing extensive airspace consolidation with the right middle lobe, right lower lobe, left lower lobe possibly related to aspiration, pneumonia, or other alveolar consolidative processes.Chest X-ray showed nonspecific bibasilar airspace consolidation with probable bilateral pleural effusions. Date Seen 09/20/19 Attending Physician [place] Chopra MD, Ricky D DO Referring Physician Date of Admission Sep 19, 2019 at 19:36 Home Medications & Allergies Home Medications Reviewed patient Home Medication Reconciliation performed by pharmacy medication reconciliations senior qc technician and/or nursing. Patients Allergies have been reviewed. Allergies Allergies Coded Allergies No Known Drug Allergies (Unverified04/29/19) Past Jgblrfd-Yecyai-Tifcgk Hx Past Med/Social Hx: Reviewed Nursing Past Med/Soc Hx Patient Social History Alcohol Use: Regular Use Number of Drinks Today: 0 Alcohol Beverage of Choice: Whiskey Recreational Drug Use: No Smoking Status: Current Everyday Smoker Type Used: Cigarettes 2nd Hand Smoke Exposure: Yes Recent Foreign Travel: No Contact w/other who traveled: No Recent Hopitalizations: Yes ([employer] FASCITIS) Recent Infectious Disease Expo: No Immunizations Up To Date Tetanus Booster (TDap): Unknown Past Medical History Surgeries: Hysterectomy Cardiac: Hypertension 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: Yes Sexually Transmitted Disease: No HIV/AIDS: No Female 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 Disorders: Denies Gastrointestinal: Gastroesophageal Reflux Psychosocial: Bipolar, Depression History of Blood Disorders: No Adverse Reaction to Blood Andre: No Family History Reviewed Nursing Family Hx Cerebrovascular accident (CVA) 19 FATHER, Onset:60 years & older FH: testicular cancer G8 BROTHER, Onset:30's - 40 Hypertension 19 FATHER, Onset:Unknown 19 MOTHER, Onset:Unknown G8 BROTHER, Onset:Unknown G8 BROTHER, Onset:Unknown Myocardial infarction 19 FATHER, Onset:40's - 50 Heart Disease, Hypertension Review of Systems ROS-Unable to Obtain: Patient is intubated and sedated Physical Exam Physical Exam Vital Signs Vital Signs - First Documented 09/19/19 09/19/19 14:49 14:53 Temp 38.0 Pulse 162 Resp 40 B/P (MAP) 117/75 (89) Pulse Ox 85 O2 Delivery OxyMask O2 Flow Rate 15.00 FiO2 100 Capillary Refill : Less Than 3 Seconds Height, Weight, BMI Height: 5'5.00" Weight: 218lbs. 0.0oz. 98.464187na; 34.07 BMI Method:Stated General Appearance: Chronically ill Eyes: Bilateral Eye PERRL HEENT: Other (could only check pupillary response patient is intubated and sedated. ) Respiratory: No Accessory Muscle Use, Wheezing Cardiovascular: Regular Rate, Rhythm, Tachycardia Gastrointestinal: Soft, Distended Extremity: Normal Capillary Refill, Pedal Edema Neurologic/Psychiatric: No Alert, No Oriented x3, No Normal Mood/Affect, No water treatment operator II-XII Norm as Tested (could not complete ) Skin: Normal Color Lymphatic: No Adenopathy Results Results/Procedures Labs Laboratory Tests 09/19/19 15:00 09/19/19 15:45 09/20/19 01:54 Patient resulted labs reviewed. Assessment/Plan Admission Diagnosis Septic Shock - continue vasopressor and IV Fluids - Continue ABX regimen - Cultures pending Acute on Chronic Respiratory failure with potential ARDS - Ventilated - Continue pulmonary care - Bronchoscopy performed today - Influenza test negative COPD acute exacerbation - Continue Albuterol/Ipratropium and steroid regimen AFIB/Flutter with RVR - continue anticoagulation - cardio consulted - ECHO scheduled - F/U troponin DVT - SCDs - continue anticoagulation GIOVANNI - improving, continue to monitor - continue to monitor urinary output Alcohol abuse - continue withdrawal regimen with midazolam - will alcoholic counselor when appropriate Clinical Quality Measures DVT/VTE Risk/Contraindication: Risk Factor Score Per Nursin RFS Level Per Nursing on Admit: 4+=Very High BROOKLYN CHOPRA MD 09/20/19 6058: History of Present Illness Time Seen by a Provider: 07:15 Past Exulwxk-Niydbf-Dcelti Hx Family History Cerebrovascular accident (CVA) 19 FATHER, Onset:60 years & older FH: testicular cancer G8 BROTHER, Onset:30's - 40 Hypertension 19 FATHER, Onset:Unknown 19 MOTHER, Onset:Unknown G8 BROTHER, Onset:Unknown G8 BROTHER, Onset:Unknown Myocardial infarction 19 FATHER, Onset:40's - 50 Review of Systems Constitutional: see HPI Physical Exam Physical Exam HEENT: Other (could only check pupillary response patient is intubated and sedated. ) Results Results/Procedures Imaging: Reviewed Imaging Report Assessment/Plan Admission Diagnosis Pt was admitted with septic shock due to aspiration pneumonia. She progressed to respiratory failure in the ER and needed intubation. She has also required pressors overnight as well. She underwent bronchoscopy this morning with Dr Escobar. Bronch cultures and blood cultures are pending. We will continue on IV abx. Profoundly hypoxic and progressing towards ARDS. Will attempt to keep net negative I/Os as BP tolerates. Continues to be in a-fib with RVR but not tolerating cardizem gtt at this time. Cardiology consulted. Appreciate recs. Digoxin ordered. Patient on therapeutic lovenox for A-fib and right leg DVT. CTA negative for PE. Patient critically ill at this time and prognosis is guarded. Admission Status: Inpatient Order (span 2 midnights) Reason for Inpatient Admission: on vent and pressors Diagnosis/Problems Diagnosis/Problems (1) Atrial fibrillation with rapid ventricular response Status: Acute (2) Bilateral pneumonia Status: Acute Qualifiers: Pneumonia type: due to unspecified organism Lung location: lower lobe of lung Qualified Codes: J18.1 - Lobar pneumonia, unspecified organism (3) Septic shock Status: Acute (4) Acute respiratory failure Status: Acute Qualifiers: Respiratory failure complication: hypoxia Qualified Codes: J96.01 - Acute respiratory failure with hypoxia (5) Alcohol use Status: Acute Supervisory-Addendum Brief Verification & Attestation Participated in pt care: history, MDM, physical Personally performed: exam, history, MDM, supervision of care Care discussed with: Medical Student Procedures: n/a Results interpretation: Verified all documentation Verification and Attestation of Medical Student E/M Service A medical student performed and documented this service in my presence. I review ed and verified all information documented by the medical student and made modifications to such information, when appropriate. I personally performed the physical exam and medical decision making. [place] Chopra, Sep 21, 2019,14:36 ANSELMO DE LA CRUZ [facility] Sep 20, 2019 13:18 BROOKLYN CHOPRA MD Sep 20, 2019 16:28
--- NOTE | 2019-09-20 13:34 | NUR ---
"RD ASSESSMENT PMHx: COPD; HTN; GERD PT INTERACTION: Note pt is intubated and sedated at this time. Per RN, they may start weaning her off sometime 09/21 or 09/22. ABNORMAL NUTRITION-RELATED LAB VALUES LOW: Pro 5.1; alb 2.6 HIGH: BUN 43; glu 194 Est. kcal needs: 7384-4449 kcal | 15-20 kcal/kg Est. Pro needs: 74-93 g Pro | 0.8-1.0 g Pro/kg PES STATEMENT: Inadequate oral intake (NI-2.1) related to NPO status as evidenced by pt current intubated/sedated INTERVENTION: Pt may require enteral nutrition if intubated for longer than 3d. Would recommend the following TF: Glucerna 1.5 at goal rate of 40 ml/hr. Begin at 10 ml/hr and increase by 10 ml q6h as tolerated. At goal rate, provides 1440 kcal (16 kcal/kg); 79 g Pro (0.9 g Pro/kg); and 729 ml free water. Flush with 100 ml H2O q4h for hydration status. With flushes, provides 1329 ml free water. Will continue to follow and reassess as pt needs and status change. MONITOR/EVALUATE: PO Intake; Plan of Care; Hydration Status; Weight Status; Lab Values Pancho Rodriguez MS, RD, LD"
[2019-09-20 15:46] LABS: ABG BASE EXCESS 3.9 MMOL/L (-2.5-2.5); ABG OXYGEN SATURATION 98 % (94-100); ABG PO2 125 MMHG (79-93)
[2019-09-20 15:52] LABS: ABG PCO2 78 MMHG (35-45); ABG PH 7.23 (7.37-7.43); ALLENS TEST POSITIVE; INSPIRED O2 100%; PATIENT TEMP 38.1; VENTILATOR YES
[2019-09-20] MEDS: ENOXAPARIN 100 MG/1 ML (LOVENOX) SYR SC SCH (18:28)
[2019-09-20] MEDS: NOREPINEPHRINE 4 MG/NS 250 ML DRIP IV SCH ×2 (21:38)
[2019-09-20] MEDS: DILTIAZEM 125 MG/NS 100 ML IV SCH ×2 (21:56)
[2019-09-21] VITALS (30 sets, daily range): BP systolic 81–137; BP diastolic 49–91
[2019-09-21] MEDS: DEXMEDETOMIDINE 1,000 MCG/NS 250 ML IV SCH ×8 (00:01→22:50)
[2019-09-21] MEDS: DILTIAZEM 125 MG/NS 100 ML IV SCH ×2 (00:02)
[2019-09-21] MEDS: LACTATED RINGERS 1,000 ML IV SCH ×2 (01:02→14:51)
[2019-09-21] MEDS ORDERED: DIGOXIN 0.25 MG/ML (LANOXIN) 2 ML AMP IV ONE (01:55)
[2019-09-21] MEDS ORDERED: AMIODARONE (OMNICELL DRIP KIT) 150 MG/3 ML IV ONE ×3 (02:32→04:21)
[2019-09-21] MEDS ORDERED: D5W 100 ML IVPB 100 ML IV ONE (02:32)
[2019-09-21] MEDS ORDERED: AMIODARONE FOR BOLUS 150 MG in D5W 100 ML IVPB 100 ML IV ONE ×2 (02:40→04:27)
[2019-09-21] MEDS ORDERED: AMIODARONE 450 MG/9 ML (CORDARONE) VIAL IV ONE (02:41)
[2019-09-21] MEDS ORDERED: D5W IV SOLUTION (EXCEL) 250 ML IV ONE (02:42)
[2019-09-21] MEDS: AMIODARONE 450 MG/250 ML D5W EXCEL IV SCH ×4 (02:58→10:38)
[2019-09-21] MEDS ORDERED: VASOPRESSIN INJECTION 20 UNIT/ML VIAL ONE (04:23)
[2019-09-21] MEDS ORDERED: NS (IVPB) 100 ML ONE (04:23)
[2019-09-21] MEDS: VASOPRESSIN INJECTION 20 UNIT in NORMAL SALINE 100 ML IV SCH (04:33)
[2019-09-21 05:34] LABS: CALCIUM 8.5 MG/DL (8.5-10.1); CREATININE SERUM 1.53 MG/DL (0.60-1.30); MAGNESIUM 2.5 MG/DL (1.6-2.4); POTASSIUM 5.2 MMOL/L (3.6-5.0)
[2019-09-21 05:45] LABS: BASOPHILS % (AUTO) 0 % (0-10); EOSINOPHILS % (AUTO) 0 % (0-10); HEMATOCRIT 41 % (35-52); LYMPHOCYTES # (AUTO) 0.9 X 10^3 (1.0-4.0); LYMPHOCYTES % (AUTO) 8 % (12-44); MEAN CORPUSCULAR HEMOGLOBIN 32 PG (25-34); MEAN CORPUSCULAR HGB CONC 31 G/DL (32-36); MEAN CORPUSCULAR VOLUME 102 FL (80-99); MEAN PLATELET VOLUME 10.8 FL (7.4-10.4); MONOCYTES # (AUTO) 0.3 X 10^3 (0.0-1.0); MONOCYTES % (AUTO) 2 % (0-12); NEUTROPHILS # (AUTO) 10.4 X 10^3 (1.8-7.8); NEUTROPHILS % (AUTO) 90 % (42-75); PLATELET COUNT 282 10^3/uL (130-400); RED CELL DISTRIBUTION WIDTH 15.4 % (10.0-14.5); WHITE BLOOD COUNT 11.6 10^3/uL (4.3-11.0)
[2019-09-21 05:59] LABS: ABG BASE EXCESS 2.2 MMOL/L (-2.5-2.5); ABG OXYGEN SATURATION 94 % (94-100); ABG PCO2 58 MMHG (35-45); ABG PO2 75 MMHG (79-93); ABG TCO2 29.8 MMOL/L (21.0-31.0)
[2019-09-21 06:02] LABS: ALLENS TEST YES-POS; INSPIRED O2 70%; PATIENT TEMP 36.9; VENTILATOR YES
[2019-09-21] MEDS: ENOXAPARIN 100 MG/1 ML (LOVENOX) SYR SC SCH ×2 (06:09→17:08)
[2019-09-21] MEDS: HYDROCORTISONE 100 MG/2 ML (Solu-CORTEF) VIAL IV SCH ×3 (06:09→21:14)
[2019-09-21] MEDS: inSUlin ASPART (NovoLOG) 1 UNIT/0.01 ML (CHARGE PER UNIT) SC SCH ×4 (06:27→23:55)
--- NOTE | 2019-09-21 07:03 | Pulmonary Progress Note ---
Subjective Time Seen by a Provider: 08:04 Subjective/Events-last exam Sedated on vent Sepsis Event Evaluation Height, Weight, BMI Height: 5'5.00" Weight: 218lbs. 0.0oz. 98.002243ui; 34.07 BMI Method:Stated Focused Exam Lactate Level 09/19/19 15:45: Lactic Acid Level 2.05*H 09/19/19 17:48: Lactic Acid Level 1.04 Exam Exam Vital Signs Date Time Temp Pulse Resp B/P (MAP) Pulse Ox O2 Delivery O2 Flow Rate FiO2 09/21/19 06:00 98 28 137/72 (93) 93 Mechanical Ventilator 70.00 09/21/19 05:00 101 28 118/67 (84) 96 Mechanical Ventilator 70.00 09/21/19 04:00 135 27 97/66 (76) 92 Mechanical Ventilator 70.00 09/21/19 03:00 142 27 92/68 (76) 93 Mechanical Ventilator 70.00 09/21/19 02:15 147 27 98/69 (79) 95 Mechanical Ventilator 70.00 09/21/19 02:00 147 27 104/70 (81) 96 Mechanical Ventilator 85.00 09/21/19 01:15 36.9 09/21/19 01:00 134 09/21/19 01:00 144 27 101/62 (75) 95 Mechanical Ventilator 85.00 09/21/19 00:02 104/60 09/21/19 00:00 144 27 100/68 (79) 94 Mechanical Ventilator 85.00 09/21/19 00:00 94 09/21/19 00:00 95 Mechanical Ventilator 85 09/20/19 23:46 104/68 09/20/19 23:19 36.6 09/20/19 23:00 144 27 109/62 (78) 94 Mechanical Ventilator 85.00 09/20/19 22:00 135 27 101/68 (79) 99 Mechanical Ventilator 85.00 09/20/19 21:57 Mechanical Ventilator 85.00 09/20/19 21:46 121 28 100 100 09/20/19 21:00 128 27 116/68 (84) 100 Mechanical Ventilator 100.00 09/20/19 20:45 37.1 09/20/19 20:00 Mechanical Ventilator 100 09/20/19 20:00 141 27 109/68 (82) 99 Mechanical Ventilator 100.00 09/20/19 20:00 38.4 09/20/19 19:40 112/72 09/20/19 19:00 128 09/20/19 19:00 128 28 105/70 (82) 99 Mechanical Ventilator 100.00 09/20/19 18:00 129 28 98/69 (79) 98 Mechanical Ventilator 100.00 09/20/19 17:00 129 27 136/87 (103) 99 Mechanical Ventilator 100.00 09/20/19 16:07 124/73 09/20/19 16:00 116 24 124/73 (90) 96 Mechanical Ventilator 100.00 09/20/19 16:00 95 Mechanical Ventilator 100 09/20/19 16:00 38.4 09/20/19 15:00 122 24 122/72 (89) 96 Mechanical Ventilator 100.00 09/20/19 14:47 125 24 96 100 09/20/19 14:39 117/75 09/20/19 14:00 126 23 117/70 (86) 97 Mechanical Ventilator 100.00 09/20/19 13:00 133 24 114/68 (83) 96 Mechanical Ventilator 100.00 09/20/19 12:49 126 09/20/19 12:00 110 23 117/73 (88) 91 Mechanical Ventilator 100.00 09/20/19 12:00 92 Mechanical Ventilator 100 09/20/19 12:00 38.6 09/20/19 11:55 Mechanical Ventilator 100.00 09/20/19 11:54 129/66 09/20/19 11:48 161 88 100 09/20/19 11:00 118 18 130/84 (99) 95 Mechanical Ventilator 80.00 09/20/19 10:51 120 18 96 100 09/20/19 10:35 Mechanical Ventilator 80.00 09/20/19 10:00 121 17 125/75 (92) 96 Mechanical Ventilator 100.00 09/20/19 09:29 138/76 09/20/19 09:00 130 19 132/82 (99) 97 Mechanical Ventilator 100.00 09/20/19 08:59 90 18 95 100 09/20/19 08:00 92 20 89/59 (69) 95 Mechanical Ventilator 100.00 09/20/19 08:00 37.3 09/20/19 07:45 Mechanical Ventilator 100 09/20/19 07:00 20 100/64 (76) 90 Mechanical Ventilator 100.00 I & O 09/21/19 07:00 Intake Total 1075 ml Output Total 725 ml Balance 350 ml Height & Weight Height: 5'5.00" Weight: 218lbs. 0.0oz. 98.070239pk; 34.07 BMI Method:Stated General Appearance: Chronically ill HEENT: Other (could only check pupillary response patient is intubated and sedated. ) Neck: Non Tender, Supple Respiratory: No Accessory Muscle Use, Wheezing Cardiovascular: Regular Rate, Rhythm, Tachycardia Capillary Refill: Less Than 3 Seconds Extremity: Normal Capillary Refill, Pedal Edema Neurologic/Psychiatric: No Alert, No Oriented x3, No Normal Mood/Affect, No police patrol lieutenant II-XII Norm as Tested (could not complete ) Skin: Normal Color Lymphatic: No Adenopathy Results Lab Laboratory Tests 09/19/19 15:00 09/19/19 15:45 09/20/19 01:54 09/21/19 03:19 Assessment/Plan Assessment/Plan Acute on chronic respiratory failure -- ARDS - Pa02/Fi02 =107 -Continue vent -Propofol, Fentanyl, Versed, propofol, precedex -Check bilateral dopplers Aflutter -Cardizem gtt has been on hold secondary to hypotension -PT is on Ammio gtt -150mg IV bolus of Ammio ordered secondary to HR 150-160 Bilateral PNA - Sputum is showing Pseudomonus -- sensitivities are pending -will do bronchoscopy this AM -Continue Vanco/Zosyn -- Add Levaquin and wait for cultures -Influenza is negative -Thakkar cultures pending Hypotension -Add Vasopressin -Currently on Levophed COPDAE -Duoneb -Steroids Septic shock -Currently on Levophed -Start SoluCortef Afib/Flutter RVR -Cardizem gtt -Cardiology following JACLYN SAVAGE DO Sep 21, 2019 07:03
[2019-09-21] MEDS: POTASSIUM CL 10MEQ/50ML IVPB 50 ML IV SCH (07:49)
[2019-09-21] MEDS: MAGNESIUM 1 GM/100 ML IVPB 100 ML IV SCH (07:49)
[2019-09-21] MEDS: KCL 20 MEQ TAB (K-DUR) PO SCH (07:49)
[2019-09-21] MEDS: RT-ALBUTEROL/IPRATROPIUM 3 ML (DUONEB) VIAL INH SCH ×5 (07:56→23:46)
--- NOTE | 2019-09-21 08:03 | Diagnostic Imaging Report ---
Indication: Pneumonia, respiratory failure. Findings: Bilateral lower lobe airspace infiltrates presumed pneumonia have improved. Background COPD chronic. ET tube and remaining support apparatus stable. Impression: Improvements in bilateral lower lobe pneumonia, no adverse development. Dictated by: Dictated on workstation # [id number]
[2019-09-21] MEDS: PIPERACILLIN/TAZOBACTAM (BULK) 4.5 GM in NS (IVPB) 100 ML IV SCH ×3 (08:06→23:59)
--- NOTE | 2019-09-21 08:34 | Physical Therapy Progress Note ---
Therapy Progress Note Spoke with nursing this date. Pt remains sedated and on a ventilator. Will continue to follow patient. TY GRECO PT Sep 21, 2019 08:34
[2019-09-21] MEDS: NOREPINEPHRINE 4 MG/NS 250 ML DRIP IV SCH ×4 (08:52→21:16)
[2019-09-21] MEDS: DIGOXIN 0.25 MG/ML (LANOXIN) 2 ML AMP IV SCH (08:53)
[2019-09-21] MEDS ORDERED: LEVOFLOXACIN 750 MG/150 ML IV 150 ML IV SCH (09:00)
[2019-09-21] MEDS: THIAMINE INJECTION 100 MG, FOLIC ACID INJECTION 1 MG, VITAMIN MULTI INJECTION 10 ML, MA... IV SCH ×5 (09:20)
--- NOTE | 2019-09-21 09:35 | Progress Note - Cardiology ---
Cardiology SOAP Progress Note Subjective: Intubated and on mech vent, unable to provide any history Mother and a daughter by beside Objective: I&O/Vital Signs 09/20/19 09/20/19 09/20/19 09/20/19 21:46 21:57 22:00 23:00 Pulse 121 135 144 Resp 27 B/P (MAP) 101/68 (79) 109/62 (78) Pulse Ox 100 99 94 O2 Delivery Mechanical Ventilator Mechanical Ventilator Mechanical Ventilator O2 Flow Rate 85.00 85.00 85.00 FiO2 100 09/20/19 09/20/19 09/21/19 09/21/19 23:19 23:46 00:00 00:00 Temp 36.6 B/P (MAP) 104/68 Pulse Ox 95 94 O2 Delivery Mechanical Ventilator FiO2 85 09/21/19 09/21/19 09/21/19 09/21/19 00:00 00:02 01:00 01:00 Pulse 144 144 134 Resp B/P (MAP) 100/68 (79) 104/60 101/62 (75) Pulse Ox 94 95 O2 Delivery Mechanical Ventilator Mechanical Ventilator O2 Flow Rate 85.00 85.00 09/21/19 09/21/19 09/21/19 09/21/19 01:15 02:00 02:15 03:00 Temp 36.9 Pulse 147 147 142 Resp 27 B/P (MAP) 104/70 (81) 98/69 (79) 92/68 (76) Pulse Ox 96 95 93 O2 Delivery Mechanical Ventilator Mechanical Ventilator Mechanical Ventilator O2 Flow Rate 85.00 70.00 70.00 09/21/19 09/21/19 09/21/19 09/21/19 04:00 04:00 04:33 05:00 Pulse 135 84 101 Resp 28 B/P (MAP) 97/66 (76) 118/67 (84) Pulse Ox 95 92 96 O2 Delivery Mechanical Ventilator Mechanical Ventilator Mechanical Ventilator O2 Flow Rate 70.00 70.00 FiO2 85 09/21/19 09/21/19 09/21/19 09/21/19 06:00 07:15 07:18 08:00 Pulse 98 82 Resp 28 B/P (MAP) 137/72 (93) Pulse Ox 93 100 95 O2 Delivery Mechanical Ventilator Mechanical Ventilator Mechanical Ventilator O2 Flow Rate 70.00 80.00 FiO2 100 85 09/20/19 23:59 Intake Total 725 ml Output Total 550 ml Balance 175 ml Weight (Pounds): 218 Weight (Ounces): 0.0 Weight (Calculated Kilograms): 98.720615 Constitutional: well-developed, well-nourished, other (intubated and sedated) Respiratory: No accessory muscle use, No respiratory distress; chest expansion is symmetric, other (fair air entry; intubated) Cardiovascular: irregularly irregular; No JVD; S1 and S2 Gastrointestional: audible bowel sounds Extremities: other (mod bilat LE swelling) Skin: warm/dry Results/Procedures: Labs Laboratory Tests 09/20/19 11:55: Glucometer 208H 09/20/19 15:39: Blood Gas Puncture Site LEFT RADIAL, Blood Gas Patient Temperature 38.1, Arterial Blood pH 7.23*L, Arterial Blood Partial Pressure CO2 78*H, Arterial Blood Partial Pressure O2 125H, Arterial Blood HCO3 31H, Arterial Blood Total CO2 33.0H, Arterial Blood Oxygen Saturation 98, Arterial Blood Base Excess 3.9H, Jame Test POSITIVE, Blood Gas Ventilator Setting YES, Blood Gas Inspired Oxygen 100% 09/20/19 17:51: Glucometer 285H 09/20/19 23:13: Glucometer 242H 09/21/19 03:19: White Blood Count 11.6H, Red Blood Count 4.05L, Hemoglobin 13.0, Hematocrit 41, Mean Corpuscular Volume 102H, Mean Corpuscular Hemoglobin 32, Mean Corpuscular Hemoglobin Concent 31L, Red Cell Distribution Width 15.4H, Platelet Count 282, Mean Platelet Volume 10.8H, Neutrophils (%) (Auto) 90H, Lymphocytes (%) (Auto) 8L, Monocytes (%) (Auto) 2, Eosinophils (%) (Auto) 0, Basophils (%) (Auto) 0, Neutrophils # (Auto) 10.4H, Lymphocytes # (Auto) 0.9L, Monocytes # (Auto) 0.3, Eosinophils # (Auto) 0.0, Basophils # (Auto) 0.0, Sodium Level 140, Potassium Level 5.2H, Chloride Level 104, Carbon Dioxide Level 25, Anion Gap 11, Blood Urea Nitrogen 40H, Creatinine 1.53H, Estimat Glomerular Filtration Rate 35, BUN/Creatinine Ratio 26, Glucose Level 272H, Calcium Level 8.5, Phosphorus Level 3.0, Magnesium Level 2.5H, Digoxin Level 2.60*H 09/21/19 03:25: Blood Gas Puncture Site RIGHT RADIAL, Blood Gas Patient Temperature 36.9, Arterial Blood pH 7.30*L, Arterial Blood Partial Pressure CO2 58H, Arterial Blood Partial Pressure O2 75L, Arterial Blood HCO3 28H, Arterial Blood Total CO2 29.8, Arterial Blood Oxygen Saturation 94, Arterial Blood Base Excess 2.2, Jame Test YES-POS, Blood Gas Ventilator Setting YES, Blood Gas Inspired Oxygen 70% Microbiology 09/20/19 Gram Stain - Final, Resulted 09/20/19 Bronchial Culture - Preliminary, Resulted Gram Negative Leon 09/20/19 Fungal Culture 1 - Preliminary, Resulted Culture In Progress 09/19/19 Blood Culture - Preliminary, Resulted Probable Coag Negative Staph See Comments Laboratory Tests 09/19/19 15:00 09/19/19 15:45 09/20/19 01:54 09/21/19 03:19 A/P: Assessment: Acute resp failure, likely due to COPD exacerbated by aspiration pneumonia GIOVANNI - 2, likely ATN due to hypotension due to sepsis PAF/flutter, currently NSR Hypotension due to sepsis and propofol (post-intubation) Elevated troponin - likely type 2 MA d/t hypoxia Card cath of 09/07/18: minimal CAD, LVEF 70-75%, elevated LVEDP Echo of 09/20/19: LVEF 50-55%, RVSP 35 mmHg H/o opiate addiction ETOH abuse Chronic tobacco use Fam h/o early CAD Hyperlipidemia Borderline DM II (fasting blood glucose on 09/07/18) Carotid u/s on 01/05/19: no significant dz Plan: * Complex management due to multiple comorbidities * Started on iv amiodarone by EICU last night. Currently in NSR * Hold dig (level supra-therapeutic) * Management of ac resp failure and sepsis is with the Med and ICU services * Monitor lab closely * I spoke with her mother and a daughter and answered CV-related questions JESS CONLEY MD FACP [facility] Sep 21, 2019 09:35
[2019-09-21] MEDS: MIDAZOLAM DRIP 50 MG/NS 90 ML IV SCH ×4 (10:09→21:35)
--- NOTE | 2019-09-21 10:25 | Occ Therapy Progress Note ---
Therapy Progress Note Pt remains intubated and sedated. Will continue to monitor and initiate therapy when pt able to actively participate. YOKASTA PECK OT Sep 21, 2019 10:25
[2019-09-21] MEDS: VANCOMYCIN INJECTION 1,250 MG in NS (IVPB) 250 ML IV SCH ×2 (10:38→21:14)
[2019-09-21] MEDS: fentaNYL 1,250 MCG/NS 250 ML DRIP IV SCH ×2 (10:52)
--- NOTE | 2019-09-21 11:32 | Progress Note - Hospitalist ---
ANSELMO [facility] 09/21/19 1132: Subjective HPI/CC On Admission Date Seen by Provider: Sep 21, 2019 Time Seen by Provider: 09:50 Helene is a 54 y/o female that presented to via [facility] due to altered mental status. The following information was obtained from ER chart. Patient is currently intubated and sedated and has no family at the bedside at this time. She was brought in via EMS and was reportedly found at home after two days of no contact. She was unresponsive and was sitting in urine. There is concern of alcohol and narcotic use. She currently smokes 3 packs of cigarettes a day. She arrived to the ER with a fever and was hypoxic. The patient is requiring intubation and FiO2 of 100%. She received both chest CT and X-ray. Chest CT is showing extensive airspace consolidation with the right middle lobe, right lower lobe, left lower lobe possibly related to aspiration, pneumonia, or other alveo lar consolidative processes.Chest X-ray showed nonspecific bibasilar airspace consolidation with probable bilateral pleural effusions. Subjective/Events-last exam Patient is intubated and sedated. Family at bedside Unable to obtain ROS Spoke to the nurse and the patient has been improving. No longer in afib/aflutter and is keeping a sinus rhythm with a normal rate. Overall patient is improving and is at an FiO2 at 80 and stating >90%. Focused Exam Lactate Level 09/19/19 15:45: Lactic Acid Level 2.05*H 09/19/19 17:48: Lactic Acid Level 1.04 Objective Exam Vital Signs Vital Signs Date Time Temp Pulse Resp B/P (MAP) Pulse Ox O2 Delivery O2 Flow Rate FiO2 09/21/19 10:38 105/62 09/21/19 10:02 90 28 100 80 09/21/19 08:00 Mechanical Ventilator 09/21/19 07:18 80.00 09/21/19 01:15 36.9 Capillary Refill : Less Than 3 Seconds General Appearance: No Apparent Distress, Chronically ill Respiratory: Chest Non Tender, No Accessory Muscle Use, No Respiratory Distress, Other (Improved lung sounds) Cardiovascular: Regular Rate, Rhythm; No Friction Rub; Other (LE edema ) Gastrointestinal: Normal Bowel Sounds, Soft, Distended; No Rebound Extremity: Pedal Edema Neurologic/Psychiatric: No Alert, No Oriented x3 Skin: Normal Color, Warm/Dry Lymphatic: No Adenopathy Results/Procedures Lab Laboratory Tests 09/21/19 03:19 Patient resulted labs reviewed. Assessment/Plan Assessment and Plan Assess & Plan/Chief Complaint Septic Shock - continue vasopressor and IV Fluids - Continue ABX regimen, waiting for cultures and sensitivity. - BP is stable Acute on Chronic Respiratory failure with potential ARDS - Ventilated. Patient is currently at FiO2 of 80 and is stating >90%. Will co ntinue to work with pulmonary care. - Bronchoscopy performed - Influenza test negative - x-ray this morning is showing improvement of bilateral lower lobe pneumonia - Patient was positive for pseudomonas and sensitive to all abx. Currently receiving vancomycin at 1.25g, levofloxacin at 150ml at 100mls/hr and Pip/Tazo 4.5g. COPD acute exacerbation - Continue Albuterol/Ipratropium and steroid regimen AFIB/Flutter with RVR - continue anticoagulation - spoke to cardiology and the patient has improved from a cardio standpoint. ECHO showed 50-55% EF - Currently on amiodarone, afib/aflutter resolved patient is currently in sinus rhythm with normal rate Hyperkalemia - will continue to monitor DVT - SCDs - continue anticoagulation of Enoxaparin of 90mcg BID GIOVANNI - improving, continue to monitor - continue to monitor urinary output was .53ml/kg per hour Alcohol abuse - continue withdrawal regimen with midazolam - will school counselor when appropriate Constipation - will continue to monitor patient is yet to have a bowel movement Clinical Quality Measures DVT/VTE Risk/Contraindication: Risk Factor Score Per Nursin RFS Level Per Nursing on Admit: 4+=Very High BROOKLYN CHOPRA MD 09/21/19 1450: Assessment/Plan Assessment and Plan Assess & Plan/Chief Complaint Pt remains intubated and sedated. Will continue on current antibiotics having broaden spectrum for pseudomonas for dual converge until sensitivities are back. Was given amiodarone bolus this AM and now in sinus rhythm. Continue to monitor UOP as is marginal and goal is to keep on the dry side. She remains critically ill and prognosis is guarded. Diagnosis/Problems Diagnosis/Problems (1) Septic shock Status: Acute (2) Acute respiratory failure Status: Acute Qualifiers: Qualified Codes: J96.01 - Acute respiratory failure with hypoxia (3) Bilateral pneumonia Status: Acute Qualifiers: Qualified Codes: J18.1 - Lobar pneumonia, unspecified organism (4) Atrial fibrillation with rapid ventricular response Status: Acute (5) Alcohol use Status: Acute Supervisory-Addendum Brief Verification & Attestation Participated in pt care: history, MDM, physical Personally performed: exam, history, MDM, supervision of care Care discussed with: Medical Student Procedures: n/a Results interpretation: Verified all documentation Verification and Attestation of Medical Student E/M Service A medical student performed and documented this service in my presence. I reviewed and verified all information documented by the medical student and made modifications to such information, when appropriate. I personally performed the physical exam and medical decision making. Brooklyn Chopra, Sep 21, 2019,14:45 [facility]SEL[facility] Sep 21, 2019 11:32 BROOKLYN CHOPRA MD Sep 21, 2019 14:50
[2019-09-21] MEDS: VASOPRESSIN 20 UNITS/NS 100 ML DRIP IV SCH ×4 (14:52→22:32)
[2019-09-21] MEDS: FAMOTIDINE 20 MG (PEPCID) TABLET GT SCH (21:14)
[2019-09-22] VITALS (30 sets, daily range): BP systolic 85–128; BP diastolic 41–67
[2019-09-22 03:31] LABS: ABG BASE EXCESS -2.7 MMOL/L (-2.5-2.5); ABG OXYGEN SATURATION 99 % (94-100); ABG PCO2 57 MMHG (35-45); ABG PO2 171 MMHG (79-93); ABG TCO2 25.5 MMOL/L (21.0-31.0); BASOPHILS % (AUTO) 0 % (0-10); EOSINOPHILS % (AUTO) 0 % (0-10); HEMATOCRIT 37 % (35-52); HEMOGLOBIN 11.7 G/DL (11.5-16.0); LYMPHOCYTES # (AUTO) 1.2 X 10^3 (1.0-4.0); LYMPHOCYTES % (AUTO) 9 % (12-44); MEAN CORPUSCULAR HEMOGLOBIN 32 PG (25-34); MEAN CORPUSCULAR HGB CONC 32 G/DL (32-36); MEAN CORPUSCULAR VOLUME 100 FL (80-99); MEAN PLATELET VOLUME 10.9 FL (7.4-10.4); MONOCYTES # (AUTO) 0.5 X 10^3 (0.0-1.0); MONOCYTES % (AUTO) 4 % (0-12); NEUTROPHILS # (AUTO) 10.8 X 10^3 (1.8-7.8); NEUTROPHILS % (AUTO) 87 % (42-75); PLATELET COUNT 248 10^3/uL (130-400); RED CELL DISTRIBUTION WIDTH 15.2 % (10.0-14.5); WHITE BLOOD COUNT 12.5 10^3/uL (4.3-11.0)
[2019-09-22 03:32] LABS: ABG PH 7.24 (7.37-7.43); ALLENS TEST YES-POS
[2019-09-22 03:33] LABS: INSPIRED O2 90%; PATIENT TEMP 36.8; VENTILATOR YES
[2019-09-22] MEDS: RT-ALBUTEROL/IPRATROPIUM 3 ML (DUONEB) VIAL INH SCH ×6 (03:36→22:14)
[2019-09-22 03:48] LABS: CALCIUM 7.9 MG/DL (8.5-10.1); CREATININE SERUM 2.4 MG/DL (0.60-1.30); MAGNESIUM 2.6 MG/DL (1.6-2.4); PHOSPHORUS 5.4 MG/DL (2.3-4.7); POTASSIUM 5.3 MMOL/L (3.6-5.0)
[2019-09-22] MEDS: LACTATED RINGERS 1,000 ML IV SCH ×3 (04:19→23:49)
--- NOTE | 2019-09-22 05:28 | Pulmonary Progress Note ---
Subjective Time Seen by a Provider: 05:35 Subjective/Events-last exam Pt is still requiring 100% oxygen and 18 of PEEP Sepsis Event Evaluation Height, Weight, BMI Height: 5'5.00" Weight: 218lbs. 0.0oz. 98.420193qw; 34.07 BMI Method:Stated Focused Exam Lactate Level 09/19/19 15:45: Lactic Acid Level 2.05*H 09/19/19 17:48: Lactic Acid Level 1.04 Exam Exam Vital Signs Date Time Temp Pulse Resp B/P (MAP) Pulse Ox O2 Delivery O2 Flow Rate FiO2 09/22/19 04:23 Mechanical Ventilator 100.00 09/22/19 04:00 94 Mechanical Ventilator 100 09/22/19 03:49 Mechanical Ventilator 60.00 09/22/19 03:36 82 28 97 90 09/22/19 03:00 83 28 108/60 (76) 98 Mechanical Ventilator 90.00 09/22/19 02:00 84 27 102/59 (73) 95 Mechanical Ventilator 90.00 09/22/19 01:00 87 28 107/60 (76) 95 Mechanical Ventilator 90.00 09/22/19 01:00 90 09/22/19 00:55 107/62 09/22/19 00:00 96 Mechanical Ventilator 100 09/22/19 00:00 86 27 110/60 (77) 96 Mechanical Ventilator 90.00 09/21/19 23:56 36.6 09/21/19 23:50 Mechanical Ventilator 90.00 09/21/19 23:46 87 28 96 95 09/21/19 23:00 87 26 111/65 (80) 97 Mechanical Ventilator 100.00 09/21/19 22:00 98 28 100/55 (70) 97 Mechanical Ventilator 100.00 09/21/19 21:35 108/59 09/21/19 21:00 90 27 130/66 (87) 97 Mechanical Ventilator 100.00 09/21/19 20:00 95 27 123/66 (85) 98 Mechanical Ventilator 100.00 09/21/19 20:00 36.6 09/21/19 20:00 96 Mechanical Ventilator 100 09/21/19 19:22 81 28 89 100 09/21/19 19:00 90 09/21/19 19:00 86 27 125/64 (84) 90 Mechanical Ventilator 100.00 09/21/19 18:00 82 28 115/63 (80) 90 Mechanical Ventilator 100.00 09/21/19 17:13 112/58 09/21/19 17:00 87 28 112/58 (76) 92 Mechanical Ventilator 100.00 09/21/19 16:00 37.9 09/21/19 16:00 92 27 116/58 (77) 89 Mechanical Ventilator 100.00 09/21/19 16:00 93 Mechanical Ventilator 65 09/21/19 15:45 Mechanical Ventilator 100.00 09/21/19 15:00 96 27 92/50 (64) 94 Mechanical Ventilator 60.00 09/21/19 14:26 Mechanical Ventilator 60.00 09/21/19 14:22 96 28 98 80 09/21/19 14:00 96 28 92/51 (65) 99 Mechanical Ventilator 80.00 09/21/19 13:00 90 27 90/49 (63) 99 Mechanical Ventilator 80.00 09/21/19 12:46 90 09/21/19 12:00 36.9 09/21/19 12:00 89 28 108/61 (77) 97 Mechanical Ventilator 80.00 09/21/19 12:00 95 Mechanical Ventilator 85 09/21/19 11:00 89 27 101/64 (76) 100 Mechanical Ventilator 80.00 09/21/19 10:38 105/62 09/21/19 10:09 106/61 09/21/19 10:02 90 28 100 80 09/21/19 10:00 90 28 106/61 (76) 100 Mechanical Ventilator 80.00 09/21/19 09:00 91 27 101/59 (73) 95 Mechanical Ventilator 80.00 09/21/19 08:00 91 28 90/55 (67) 96 Mechanical Ventilator 80.00 09/21/19 08:00 95 Mechanical Ventilator 85 09/21/19 07:18 Mechanical Ventilator 80.00 09/21/19 07:15 82 28 100 100 09/21/19 07:00 89 28 101/59 (73) 100 Mechanical Ventilator 70.00 09/21/19 06:44 90 09/21/19 06:00 98 28 137/72 (93) 93 Mechanical Ventilator 70.00 I & O 09/22/19 07:00 Intake Total 1304.2 ml Output Total 745 ml Balance 559.2 ml Height & Weight Height: 5'5.00" Weight: 218lbs. 0.0oz. 98.795160ck; 34.07 BMI Method:Stated General Appearance: No Apparent Distress, Chronically ill HEENT: Other (could only check pupillary response patient is intubated and sedated. ) Neck: Non Tender, Supple Respiratory: Chest Non Tender, No Accessory Muscle Use, No Respiratory Distress, Other (Improved lung sounds) Cardiovascular: Regular Rate, Rhythm; No Friction Rub; Other (LE edema ) Capillary Refill: Less Than 3 Seconds Extremity: Pedal Edema Neurologic/Psychiatric: No Alert, No Oriented x3 Skin: Normal Color, Warm/Dry Lymphatic: No Adenopathy Results Lab Laboratory Tests 09/21/19 03:19 09/22/19 03:21 Assessment/Plan Assessment/Plan Acute on chronic respiratory failure -- ARDS - Pa02/Fi02 =107 -Continue vent -Propofol, Fentanyl, Versed, propofol, precedex -Check bilateral dopplers Aflutter - Ammio per cardiology Bilateral PNA - Sputum is showing Pseudomonus -- sensitivities are pending -Zosyn D/C Levaquin -D/C Vanco -Influenza is negative -Thakkar cultures pending Hypotension -Add Vasopressin -Currently on Levophed COPDAE -Duoneb -Steroids Septic shock -Currently on Levophed -SoluCortef Afib/Flutter RVR -Cardiology following Consider landmark transfer JACLYN SAVAGE DO Sep 22, 2019 05:28
[2019-09-22] MEDS ORDERED: SODIUM BICARB 8.4% 50 MEQ/50 ML VIAL IV ONE (05:30)
[2019-09-22] MEDS: POTASSIUM CL 10MEQ/50ML IVPB 50 ML IV SCH (06:08)
[2019-09-22] MEDS: KCL 20 MEQ TAB (K-DUR) PO SCH (06:09)
[2019-09-22] MEDS: MAGNESIUM 1 GM/100 ML IVPB 100 ML IV SCH (06:09)
[2019-09-22] MEDS: HYDROCORTISONE 100 MG/2 ML (Solu-CORTEF) VIAL IV SCH ×3 (06:09→21:23)
[2019-09-22] MEDS: inSUlin ASPART (NovoLOG) 1 UNIT/0.01 ML (CHARGE PER UNIT) SC SCH ×4 (06:09→23:21)
[2019-09-22] MEDS: ENOXAPARIN 100 MG/1 ML (LOVENOX) SYR SC SCH (06:10)
[2019-09-22] MEDS: DEXMEDETOMIDINE 1,000 MCG/NS 250 ML IV SCH ×2 (06:25)
[2019-09-22] MEDS: VASOPRESSIN 20 UNITS/NS 100 ML DRIP IV SCH ×4 (07:55→15:57)
--- NOTE | 2019-09-22 07:56 | Diagnostic Imaging Report ---
CLINICAL INDICATION: Patient with bilateral lower lobe pneumonia and respiratory failure and septic shock. EXAM: Portable chest x-ray upright view. COMPARISON: Chest X-ray dated 09/21/2019. FINDINGS: There is interval slight improved aeration of the left lung base region with mild residual infiltrate in the left lung base. There is interval development of mild right basilar atelectasis. The remainder of the lungs are clear. ET tube, right IJ central line and feeding tube are again seen in good position. Bones show no significant interval abnormality. IMPRESSION: 1: There is slight improved aeration of the left lung base with small amount of residual left lung base infiltrate. 2: There is interval development of mild right lung base atelectasis. 3: Lines and tubes are in good position, as described above. Dictated by: Dictated on workstation # [id number]
--- NOTE | 2019-09-22 08:07 | Physical Therapy Progress Note ---
Therapy Progress Note Patient is currently sedated and intubated. PT will continue to monitor patient medical status and initiate treatment when patient is able to actively participate with skilled therapy. MERVIN PETERSON PT Sep 22, 2019 08:07
--- NOTE | 2019-09-22 08:31 | Progress Note - Cardiology ---
Cardiology SOAP Progress Note Subjective: Remains intubated and sedated Objective: I&O/Vital Signs 09/25/19 09/25/19 09/25/19 09/25/19 21:00 22:00 22:57 23:00 Pulse 95 96 95 94 Resp 19 19 28 14 B/P (MAP) 145/79 (101) 152/83 (106) 134/75 (94) Pulse Ox 94 95 96 96 O2 Delivery Mechanical Ventilator Mechanical Ventilator Mechanical Ventilator O2 Flow Rate 70.00 70.00 70.00 FiO2 70 09/25/19 09/26/19 09/26/19 09/26/19 23:08 00:00 00:00 00:00 Temp 36.2 Pulse 90 Resp 15 B/P (MAP) 134/75 122/68 (86) Pulse Ox 96 96 O2 Delivery Mechanical Ventilator Mechanical Ventilator O2 Flow Rate 70.00 FiO2 70 09/26/19 09/26/19 09/26/19 09/26/19 01:00 01:00 01:18 01:42 Pulse 121 121 Resp 15 B/P (MAP) 120/73 (89) Pulse Ox 90 O2 Delivery Mechanical Ventilator Mechanical Ventilator Mechanical Ventilator O2 Flow Rate 70.00 75.00 80.00 09/26/19 09/26/19 09/26/19 09/26/19 02:00 02:02 02:42 03:00 Pulse 100 105 112 Resp 21 28 13 B/P (MAP) 122/67 (85) 122/67 158/82 (107) Pulse Ox 91 94 96 O2 Delivery Mechanical Ventilator Mechanical Ventilator O2 Flow Rate 80.00 80.00 FiO2 80 09/26/19 09/26/19 09/26/19 09/26/19 04:00 04:00 04:00 04:26 Temp 36.5 Pulse 108 Resp 23 B/P (MAP) 126/70 (88) Pulse Ox 96 94 O2 Delivery Mechanical Ventilator Mechanical Ventilator Mechanical Ventilator O2 Flow Rate 80.00 75.00 FiO2 80 09/26/19 09/26/19 09/26/19 09/26/19 04:53 05:00 06:00 07:00 Pulse 101 105 100 Resp 21 27 B/P (MAP) 122/65 134/72 (92) 164/81 (108) Pulse Ox 93 94 O2 Delivery Mechanical Ventilator Mechanical Ventilator O2 Flow Rate 75.00 75.00 09/26/19 09/26/19 09/26/19 09/26/19 07:00 07:04 07:13 07:35 Temp 36.2 Pulse 98 99 104 Resp 27 29 B/P (MAP) 129/71 (90) Pulse Ox 94 94 O2 Delivery Mechanical Ventilator O2 Flow Rate 75.00 FiO2 75 09/26/19 08:00 Pulse 100 Resp 28 B/P (MAP) 154/77 (102) Pulse Ox 94 O2 Delivery Mechanical Ventilator O2 Flow Rate 75.00 09/26/19 00:00 Intake Total 890 ml Output Total 2750 ml Balance -1860 ml Weight (Pounds): 218 Weight (Ounces): 0.0 Weight (Calculated Kilograms): 98.970206 Constitutional: well-developed, well-nourished, other (intubated and sedated) Respiratory: No accessory muscle use, No respiratory distress; chest expansion is symmetric, other (fair air entry; intubated) Cardiovascular: irregularly irregular; No JVD; S1 and S2 Gastrointestional: audible bowel sounds Extremities: other (mod bilat LE swelling) Skin: warm/dry Results/Procedures: Labs Laboratory Tests 09/25/19 11:19: Glucometer 180H 09/25/19 17:54: Glucometer 130H 09/26/19 00:45: Glucometer 133H 09/26/19 01:40: Blood Gas Puncture Site RIGHT RADIAL, Blood Gas Patient Temperature 36.5, Arterial Blood pH 7.40, Arterial Blood Partial Pressure CO2 46H, Arterial Blood Partial Pressure O2 63L, Arterial Blood HCO3 28H, Arterial Blood Total CO2 29.7, Arterial Blood Oxygen Saturation 90L, Arterial Blood Base Excess 3.7H, Jame Test POSITIVE, Blood Gas Ventilator Setting YES, Blood Gas Inspired Oxygen 80% 09/26/19 03:02: White Blood Count 16.5H, Red Blood Count 3.79L, Hemoglobin 12.0, Hematocrit 37, Mean Corpuscular Volume 98, Mean Corpuscular Hemoglobin 32, Mean Corpuscular Hemoglobin Concent 32, Red Cell Distribution Width 15.9H, Platelet Count 248, Mean Platelet Volume 10.3, Neutrophils (%) (Auto) 94H, Lymphocytes (%) (Auto) 4L , Monocytes (%) (Auto) 2, Eosinophils (%) (Auto) 0, Basophils (%) (Auto) 0, Neutrophils # (Auto) 15.5H, Lymphocytes # (Auto) 0.6L, Monocytes # (Auto) 0.3, Eosinophils # (Auto) 0.1, Basophils # (Auto) 0.0, Sodium Level 142, Potassium Level 3.8, Chloride Level 105, Carbon Dioxide Level 25, Anion Gap 12, Blood Urea Nitrogen 54H, Creatinine 1.79H, Estimat Glomerular Filtration Rate 30, BUN/Creatinine Ratio 30, Glucose Level 132H, Calcium Level 8.8, Phosphorus Level 4.6, Magnesium Level 2.1 09/26/19 05:45: White Blood Count 15.9H, Red Blood Count 3.66L, Hemoglobin 11.6, Hematocrit 36, Mean Corpuscular Volume 97, Mean Corpuscular Hemoglobin 32, Mean Corpuscular Hemoglobin Concent 33, Red Cell Distribution Width 15.8H, Platelet Count 228, Mean Platelet Volume 10.2, Neutrophils (%) (Auto) 93H, Lymphocytes (%) (Auto) 4L , Monocytes (%) (Auto) 2, Eosinophils (%) (Auto) 0, Basophils (%) (Auto) 0, Neutrophils # (Auto) 14.9H, Lymphocytes # (Auto) 0.7L, Monocytes # (Auto) 0.3, Eosinophils # (Auto) 0.1, Basophils # (Auto) 0.0, Neutrophils % (Manual) 93, Lymphocytes % (Manual) 2, Monocytes % (Manual) 3, Eosinophils % (Manual) 2, Lactic Acid Level 0.92 Microbiology 09/20/19 Mycobacterial Culture - Preliminary, Resulted 09/19/19 Blood Culture - Final, Complete Staphylococcus epidermidis Staphylococcus hominis Procedures NAME: ZEKE MEDELLIN [facility] REC#: [id number] PT STATUS: ADM IN : 1965 PHYSICIAN: JACLYN SAVAGE DO ADMIT DATE: 09/19/19/ICU Draft Date of Exam:09/22/19 CHEST 1 VIEW, AP/PA ONLY CLINICAL INDICATION: Patient with bilateral lower lobe pneumonia and respiratory failure and septic shock. EXAM: Portable chest x-ray upright view. COMPARISON: Chest X-ray dated 09/21/2019. FINDINGS: There is interval slight improved aeration of the left lung base region with mild residual infiltrate in the left lung base. There is interval development of mild right basilar atelectasis. The remainder of the lungs are clear. ET tube, right IJ central line and feeding tube are again seen in good position. Bones show no significant interval abnormality. IMPRESSION: 1: There is slight improved aeration of the left lung base with small amount of residual left lung base infiltrate. 2: There is interval development of mild right lung base atelectasis. 3: Lines and tubes are in good position, as described above. Dictated on workstation # [id number] Dict: 09/22/19 0729 Trans: 09/22/19 0756 QING [id number] Interpreted by: NATHALY MELENDEZ MD Electronically signed by: A/P: Assessment: Acute resp failure, likely due to COPD exacerbated by aspiration pneumonia GIOVANNI - 2, likely ATN due to hypotension due to sepsis - worsening Cr Hyperkalemia/hypermag likely secondary to renal insufficiency PAF/flutter, currently NSR Hypotension due to sepsis and propofol (post-intubation) Elevated troponin - likely type 2 [place] d/t hypoxia Card cath of 09/07/18: minimal CAD, LVEF 70-75%, elevated LVEDP Echo of 09/20/19: LVEF 50-55%, RVSP 35 mmHg H/o opiate addiction ETOH abuse Chronic tobacco use Fam h/o early CAD Hyperlipidemia Borderline DM II (fasting blood glucose on 09/07/18) Carotid u/s on 01/05/19: no significant dz Plan: * Complex management due to multiple comorbidities * Received IV Amiodarone - Currently in NSR * Continue to Hold dig (level supra-therapeutic) - repeat level in the morning * Worsening renal function * Management of ac resp failure and sepsis is with the Med and ICU services * Monitor lab closely DELROY TURNER Sep 22, 2019 08:31
--- NOTE | 2019-09-22 09:56 | Occ Therapy Progress Note ---
Therapy Progress Note Pt. continues on ventilator support. Will continue to monitor and address OT needs when extubated. [id number] YURI JOHNSON OT Sep 22, 2019 09:56
--- NOTE | 2019-09-22 10:26 | Progress Note - Hospitalist ---
ANSELMO DE LA CRUZ [facility] 09/22/19 1026: Subjective HPI/CC On Admission Date Seen by Provider: Sep 22, 2019 Time Seen by Provider: 08:00 Helene is a 54 y/o female that presented to via [facility], [place] due to altered mental status. The following information was obtained from ER chart. Patient is currently intubated and sedated and has no family at the bedside at this time. She was brought in via EMS and was reportedly found at home after two days of no contact. She was unresponsive and was sitting in urine. There is concern of alcohol and narcotic use. She currently smokes 3 packs of cigarettes a day. She arrived to the ER with a fever and was hypoxic. The patient is requiring intubation and FiO2 of 100%. She received both chest CT and X-ray. Chest CT is showing extensive airspace consolidation with the right middle lobe, right lower lobe, left lower lobe possibly related to aspiration, pneumonia, or other alveo lar consolidative processes.Chest X-ray showed nonspecific bibasilar airspace consolidation with probable bilateral pleural effusions. Subjective/Events-last exam Pt is not alert and family is at bedside Unable to obtain ROS Patient is back to requiring an FiO2 of 100% Osorio catheter in place and pt has not had a recorded bowel movement. Focused Exam Lactate Level 09/19/19 15:45: Lactic Acid Level 2.05*H 09/19/19 17:48: Lactic Acid Level 1.04 Objective Exam Vital Signs Vital Signs Date Time Temp Pulse Resp B/P (MAP) Pulse Ox O2 Delivery O2 Flow Rate FiO2 09/22/19 10:00 112 27 103/57 (72) 93 Mechanical Ventilator 100.00 09/22/19 07:01 90 09/21/19 23:56 36.6 Capillary Refill : Less Than 3 Seconds General Appearance: No Apparent Distress, Chronically ill Respiratory: Chest Non Tender, No Accessory Muscle Use, Other (lung sounds improving ) Cardiovascular: Regular Rate, Rhythm, Normal Peripheral Pulses (Radial 2/4 and Dorsal pedal 1/4 due to lower extremity edema) Gastrointestinal: Soft, Distended; No Guarding Extremity: Pedal Edema Neurologic/Psychiatric: No Alert, No Oriented x3 Results/Procedures Lab Laboratory Tests 09/22/19 03:21 Patient resulted labs reviewed. Imaging: Reviewed Imaging Report Assessment/Plan Assessment and Plan Assess & Plan/Chief Complaint Septic Shock - continue vasopressor and IV Fluids - Continue ABX regimen, blood cultures came back as pseudomonas and is sensitive to all abx. - BP is stable - order vanc troph Acute on Chronic Respiratory failure with potential ARDS - Ventilated. Patient is currently at FiO2 of 80 and is stating >90%. Will continue to work with pulmonary care. - Bronchoscopy performed - Influenza test negative - Patient was positive for pseudomonas and sensitive to all abx. Currently receiving vancomycin at 1.25g, levofloxacin at 150ml at 100mls/hr and Pip/Tazo 4.5g. COPD acute exacerbation - Continue Albuterol/Ipratropium and steroid regimen AFIB/Flutter with RVR - continue anticoagulation - spoke to cardiology and the patient has improved from a cardio standpoint. ECHO showed 50-55% EF - Currently on amiodarone, afib/aflutter resolved patient is currently in sinus rhythm. Rate has become tachy. Hyperkalemia - will continue to monitor DVT - SCDs - continue anticoagulation of Enoxaparin of 90mcg BID, will review if we need to change due to renal function. GIOVANNI - creatinine has risen to 2.4, will continue fluids - continue to monitor urinary output Alcohol abuse - continue withdrawal regimen with midazolam - will assistant counsel when appropriate Constipation - will continue to monitor patient is yet to have a bowel movement Spoke with the family about transferring patient to o a more suitable place for her respiratory issues. Clinical Quality Measures DVT/VTE Risk/Contraindication: Risk Factor Score Per Nursin RFS Level Per Nursing on Admit: 4+=Very High BROOKLYN CHOPRA MD 09/22/19 1437: Assessment/Plan Assessment and Plan Assess & Plan/Chief Complaint Patient remains critically ill. She remains on pressors but this is likely due to cardizem gtt and need for rate control but BP dropping with it. Discussed with Dr Aggarwal this morning. Unable to wean oxygen much this morning and PEEP remains at 18. Discussed with Dr Escobar and she will likely need residential vent with weaning and could benefit from LTACH. I will discuss with [facility] regarding transfer. I did discuss this with family who was agreeable to plan. Will continue antibiotics and all supportive measures. Diagnosis/Problems Diagnosis/Problems (1) Atrial fibrillation with rapid ventricular response Status: Acute (2) Bilateral pneumonia Status: Acute Qualifiers: Qualified Codes: J18.1 - Lobar pneumonia, unspecified organism (3) Septic shock Status: Acute (4) Acute respiratory failure Status: Acute Qualifiers: Qualified Codes: J96.01 - Acute respiratory failure with hypoxia (5) Alcohol use Status: Acute Supervisory-Addendum Brief Verification & Attestation Participated in pt care: history, MDM, physical Personally performed: exam, history, MDM, supervision of care Care discussed with: Medical Student Procedures: n/a Results interpretation: Verified all documentation Verification and Attestation of Medical Student E/M Service A medical student performed and documented this service in my presence. I reviewed and verified all information documented by the medical student and made modifications to such information, when appropriate. I personally performed the physical exam and medical decision making. Brooklyn Chopra, Sep 22, 2019,14:27 ANSELMO DE LA CRUZ [facility] Sep 22, 2019 10:26 BROOKLYN CHOPRA MD Sep 22, 2019 14:37
[2019-09-22] MEDS: PIPERACILLIN/TAZOBACTAM (BULK) 4.5 GM in NS (IVPB) 100 ML IV SCH ×3 (10:35→23:21)
[2019-09-22] MEDS: THIAMINE INJECTION 100 MG, FOLIC ACID INJECTION 1 MG, VITAMIN MULTI INJECTION 10 ML, MA... IV SCH ×5 (10:35)
--- NOTE | 2019-09-22 11:40 | NUR ---
Pastoral care visit.
--- NOTE | 2019-09-22 17:28 | Progress Note - Cardiology ---
Cardiology SOAP Progress Note Subjective: Intubated and on [facility] vent Unable to provide any history Objective: I&O/Vital Signs 09/22/19 09/22/19 09/22/19 09/22/19 06:00 07:00 07:00 07:01 Pulse 105 107 112 108 Resp 28 B/P (MAP) 122/67 (85) 108/60 (76) Pulse Ox 96 94 94 O2 Delivery Mechanical Ventilator Mechanical Ventilator O2 Flow Rate 100.00 100.00 FiO2 90 09/22/19 09/22/19 09/22/19 09/22/19 07:43 08:00 09:00 10:00 Temp 36.6 Pulse 114 111 112 Resp B/P (MAP) 112/61 (78) 100/52 (68) 103/57 (72) Pulse Ox 95 93 93 O2 Delivery Mechanical Ventilator Mechanical Ventilator Mechanical Ventilator O2 Flow Rate 100.00 100.00 100.00 09/22/19 09/22/19 09/22/19 09/22/19 10:46 11:00 12:00 12:08 Temp 36.4 Pulse 106 110 109 Resp 12 B/P (MAP) 120/57 (78) 102/52 (69) Pulse Ox 94 94 94 O2 Delivery Mechanical Ventilator Mechanical Ventilator O2 Flow Rate 100.00 100.00 FiO2 90 09/22/19 09/22/19 09/22/19 09/22/19 12:33 13:00 14:00 15:00 Pulse 111 106 101 105 Resp 15 B/P (MAP) 108/55 (72) 114/55 (74) 126/58 (80) Pulse Ox 94 95 94 O2 Delivery Mechanical Ventilator Mechanical Ventilator Mechanical Ventilator O2 Flow Rate 100.00 100.00 100.00 09/22/19 09/22/19 09/22/19 09/22/19 15:02 16:00 16:00 17:00 Temp 36.2 Pulse 106 108 103 Resp 28 B/P (MAP) 117/57 (77) 128/59 (82) Pulse Ox 94 94 95 O2 Delivery Mechanical Ventilator Mechanical Ventilator O2 Flow Rate 100.00 100.00 FiO2 90 09/22/19 00:00 Intake Total 1045.2 ml Output Total 425 ml Balance 620.2 ml Weight (Pounds): 218 Weight (Ounces): 0.0 Weight (Calculated Kilograms): 98.913326 Constitutional: well-developed, well-nourished, other (intubated and sedated) Respiratory: No accessory muscle use, No respiratory distress; chest expansion is symmetric, other (fair air entry; intubated) Cardiovascular: irregularly irregular; No JVD; S1 and S2 Gastrointestional: audible bowel sounds Extremities: other (mod bilat LE swelling) Skin: warm/dry Results/Procedures: Labs Laboratory Tests 09/21/19 17:35: Glucometer 367H 09/21/19 23:49: Glucometer 383H 09/22/19 03:21: White Blood Count 12.5H, Red Blood Count 3.68L, Hemoglobin 11.7, Hematocrit 37, Mean Corpuscular Volume 100H, Mean Corpuscular Hemoglobin 32, Mean Corpuscular Hemoglobin Concent 32, Red Cell Distribution Width 15.2H, Platelet Count 248, Mean Platelet Volume 10.9H, Neutrophils (%) (Auto) 87H, Lymphocytes (%) (Auto) 9L, Monocytes (%) (Auto) 4, Eosinophils (%) (Auto) 0, Basophils (%) (Auto) 0, Neutrophils # (Auto) 10.8H, Lymphocytes # (Auto) 1.2, Monocytes # (Auto) 0.5, Eosinophils # (Auto) 0.0, Basophils # (Auto) 0.0, Blood Gas Puncture Site LT RADIAL, Blood Gas Patient Temperature 36.8, Arterial Blood pH 7.24*L, Arterial Blood Partial Pressure CO2 57H, Arterial Blood Partial Pressure O2 171H, Arterial Blood HCO3 24, Arterial Blood Total CO2 25.5, Arterial Blood Oxygen Saturation 99, Arterial Blood Base Excess -2.7L, Jame Test YES-POS, Blood Gas Ventilator Setting YES, Blood Gas Inspired Oxygen 90%, Sodium Level 137, Potassi um Level 5.3H, Chloride Level 105, Carbon Dioxide Level 20L, Anion Gap 12, Blood Urea Nitrogen 53H, Creatinine 2.40H, Estimat Glomerular Filtration Rate 21, BUN/Creatinine Ratio 22, Glucose Level 365H, Calcium Level 7.9L, Phosphorus Level 5.4H, Magnesium Level 2.6H 09/22/19 12:56: Glucometer 368H Microbiology 09/20/19 Mycobacterial Culture - Preliminary, Resulted 09/19/19 Blood Culture - Preliminary, Resulted Staphylococcus epidermidis Staphylococcus hominis See Comments Laboratory Tests 09/21/19 03:19 09/22/19 03:21 A/P: Assessment: Acute resp failure, likely due to COPD exacerbated by aspiration pneumonia Acute renal failure, likely ATN due to hypotension due to sepsis - worsening Cr Hyperkalemia/hypermag likely secondary to renal failure PAF/flutter, currently NSR Hypotension due to sepsis and propofol (post-intubation) Elevated troponin - likely type 2 [place] d/t hypoxia Card cath of 09/07/18: minimal CAD, LVEF 70-75%, elevated LVEDP Echo of 09/20/19: LVEF 50-55%, RVSP 35 mmHg H/o opiate addiction ETOH abuse Chronic tobacco use Fam h/o early CAD Hyperlipidemia Borderline DM II (fasting blood glucose on 09/07/18) Carotid u/s on 01/05/19: no significant dz Plan: * Complex management due to multiple comorbidities * Prognosis guarded * Change amiodarone to via NGT * Continue to Hold dig (level supra-therapeutic) - repeat level in the morning * Management of ac resp failure and ac renal failure and sepsis is with the Med and ICU services * Consider transfer to tertiary care facility if renal function continues to wo rsen * Monitor lab closely * I discussed her case with her hospitalist Dr Chopra this am JESS CONLEY MD FACP FAC CCDS Sep 22, 2019 17:28
[2019-09-22] MEDS: FAMOTIDINE 20 MG (PEPCID) TABLET GT SCH (21:22)
[2019-09-22] MEDS: AMIODARONE 200 MG (CORDARONE) TAB NG SCH (21:23)
[2019-09-22] MEDS: fentaNYL 1,250 MCG/NS 250 ML DRIP IV SCH ×2 (22:15)
[2019-09-22] MEDS: DILTIAZEM 125 MG/NS 100 ML IV SCH ×2 (22:16)
[2019-09-22] MEDS: MIDAZOLAM DRIP 50 MG/NS 90 ML IV SCH ×2 (22:16)
[2019-09-23] VITALS (30 sets, daily range): BP systolic 94–170; BP diastolic 47–79
[2019-09-23] MEDS: RT-ALBUTEROL/IPRATROPIUM 3 ML (DUONEB) VIAL INH SCH ×6 (01:45→22:38)
[2019-09-23 03:15] LABS: ABG BASE EXCESS -0.1 MMOL/L (-2.5-2.5); ABG OXYGEN SATURATION 97 % (94-100); ABG PCO2 48 MMHG (35-45); ABG PO2 94 MMHG (79-93); ABG TCO2 26.8 MMOL/L (21.0-31.0); BASOPHILS % (AUTO) 0 % (0-10); EOSINOPHILS % (AUTO) 0 % (0-10); HEMATOCRIT 34 % (35-52); HEMOGLOBIN 10.9 G/DL (11.5-16.0); LYMPHOCYTES # (AUTO) 0.6 X 10^3 (1.0-4.0); LYMPHOCYTES % (AUTO) 7 % (12-44); MEAN CORPUSCULAR HEMOGLOBIN 32 PG (25-34); MEAN CORPUSCULAR HGB CONC 32 G/DL (32-36); MEAN CORPUSCULAR VOLUME 99 FL (80-99); MEAN PLATELET VOLUME 11.2 FL (7.4-10.4); MONOCYTES # (AUTO) 0.3 X 10^3 (0.0-1.0); MONOCYTES % (AUTO) 3 % (0-12); NEUTROPHILS # (AUTO) 7.9 X 10^3 (1.8-7.8); NEUTROPHILS % (AUTO) 90 % (42-75); PLATELET COUNT 207 10^3/uL (130-400); RED CELL DISTRIBUTION WIDTH 15.2 % (10.0-14.5); WHITE BLOOD COUNT 8.8 10^3/uL (4.3-11.0)
[2019-09-23 03:19] LABS: ABG PH 7.33 (7.37-7.43); ALLENS TEST POSITIVE; INSPIRED O2 90%; PATIENT TEMP 36.1; VENTILATOR NO
[2019-09-23 03:35] LABS: CALCIUM 8.6 MG/DL (8.5-10.1); CREATININE SERUM 2.38 MG/DL (0.60-1.30); PHOSPHORUS 4.9 MG/DL (2.3-4.7); POTASSIUM 4.5 MMOL/L (3.6-5.0)
[2019-09-23] MEDS: KCL 20 MEQ TAB (K-DUR) PO SCH (03:59)
[2019-09-23] MEDS: MAGNESIUM 1 GM/100 ML IVPB 100 ML IV SCH (03:59)
[2019-09-23] MEDS: POTASSIUM CL 10MEQ/50ML IVPB 50 ML IV SCH (03:59)
--- NOTE | 2019-09-23 05:26 | Pulmonary Progress Note ---
Subjective Time Seen by a Provider: 08:03 Subjective/Events-last exam sedated on vent Sepsis Event Evaluation Height, Weight, BMI Height: 5'5.00" Weight: 218lbs. 0.0oz. 98.405190va; 34.07 BMI Method:Stated Exam Exam Vital Signs Date Time Temp Pulse Resp B/P (MAP) Pulse Ox O2 Delivery O2 Flow Rate FiO2 09/23/19 04:00 36.1 09/23/19 04:00 94 Mechanical Ventilator 90 09/23/19 03:00 86 27 112/52 (72) 96 Mechanical Ventilator 90.00 09/23/19 02:00 86 28 127/58 (81) 95 Mechanical Ventilator 90.00 09/23/19 01:45 92 28 95 90 09/23/19 01:00 84 09/23/19 01:00 84 27 112/50 (70) 96 Mechanical Ventilator 90.00 09/23/19 00:00 87 27 143/62 (89) 96 Mechanical Ventilator 90.00 09/23/19 00:00 94 Mechanical Ventilator 90 09/22/19 23:00 107 27 85/41 (56) 94 Mechanical Ventilator 90.00 09/22/19 22:14 115 28 93 90 09/22/19 22:00 101 27 92/59 (70) 95 Mechanical Ventilator 90.00 09/22/19 21:00 110 27 110/59 (76) 95 Mechanical Ventilator 90.00 09/22/19 20:00 112 28 116/54 (74) 96 Mechanical Ventilator 90.00 09/22/19 20:00 36.2 09/22/19 20:00 94 Mechanical Ventilator 90 09/22/19 20:00 Mechanical Ventilator 90.00 09/22/19 19:00 111 09/22/19 19:00 111 27 110/55 (73) 95 Mechanical Ventilator 100.00 09/22/19 18:46 111 28 95 90 09/22/19 18:00 116 28 116/55 (75) 95 Mechanical Ventilator 100.00 09/22/19 17:00 103 28 128/59 (82) 95 Mechanical Ventilator 100.00 09/22/19 16:00 36.2 09/22/19 16:00 108 27 117/57 (77) 94 Mechanical Ventilator 100.00 09/22/19 15:50 94 Mechanical Ventilator 90 09/22/19 15:02 106 28 94 90 12/19/19 15:00 105 15 126/58 (80) 94 Mechanical Ventilator 100.00 09/22/19 14:00 101 27 114/55 (74) 95 Mechanical Ventilator 100.00 09/22/19 13:00 106 28 108/55 (72) 94 Mechanical Ventilator 100.00 09/22/19 12:33 111 09/22/19 12:08 36.4 09/22/19 12:00 109 12 102/52 (69) 94 Mechanical Ventilator 100.00 09/22/19 11:50 94 Mechanical Ventilator 90 09/22/19 11:00 110 33 120/57 (78) 94 Mechanical Ventilator 100.00 09/22/19 10:46 106 28 94 90 09/22/19 10:00 112 27 103/57 (72) 93 Mechanical Ventilator 100.00 09/22/19 09:00 111 27 100/52 (68) 93 Mechanical Ventilator 100.00 09/22/19 08:00 114 28 112/61 (78) 95 Mechanical Ventilator 100.00 09/22/19 07:45 94 Mechanical Ventilator 90 09/22/19 07:43 36.6 09/22/19 07:01 108 28 94 90 09/22/19 07:00 112 09/22/19 07:00 107 27 108/60 (76) 94 Mechanical Ventilator 100.00 09/22/19 06:00 105 27 122/67 (85) 96 Mechanical Ventilator 100.00 I & O 09/23/19 07:00 Intake Total 0 ml Output Total 620 ml Balance -620 ml Height & Weight Height: 5'5.00" Weight: 218lbs. 0.0oz. 98.288389ik; 34.07 BMI Method:Stated General Appearance: No Apparent Distress, Chronically ill HEENT: Other (could only check pupillary response patient is intubated and sedated. ) Neck: Non Tender, Supple Respiratory: Chest Non Tender, No Accessory Muscle Use, Other (lung sounds improving ) Cardiovascular: Regular Rate, Rhythm, Normal Peripheral Pulses (Radial 2/4 and Dorsal pedal 1/4 due to lower extremity edema) Capillary Refill: Less Than 3 Seconds Extremity: Pedal Edema Neurologic/Psychiatric: No Alert, No Oriented x3 Skin: Normal Color, Warm/Dry Lymphatic: No Adenopathy Results Lab Laboratory Tests 09/22/19 03:21 09/23/19 03:05 Assessment/Plan Assessment/Plan Acute on chronic respiratory failure -- ARDS - Pa02/Fi02 =104.4 -Continue vent -Sedation has been off since yesterday. Pt is waking up. I am going to restart Precedex and propofol RLL DVT -CTA was negative for PE -Lovenox therapeutic dosing Aflutter - Ammio per cardiology Bilateral PNA - Sputum is showing Pseudomonus -- sensitivities are pending -Zosyn D/C Levaquin -D/C Vanco -Influenza is negative -Thakkar cultures pending Hypotension -Vasopressin - is still going -Currently off Levophed COPDAE -Duoneb -Steroids Septic shock -Currently on Levophed -SoluCortef Afib/Flutter RVR -Cardiology following Consider [facility] transfer JACLYN SAVAGE DO Sep 23, 2019 05:26
[2019-09-23] MEDS: LACTATED RINGERS 1,000 ML IV SCH ×5 (05:49→23:30)
[2019-09-23] MEDS: HYDROCORTISONE 100 MG/2 ML (Solu-CORTEF) VIAL IV SCH ×3 (05:55→22:19)
[2019-09-23] MEDS: inSUlin ASPART (NovoLOG) 1 UNIT/0.01 ML (CHARGE PER UNIT) SC SCH ×3 (05:56→18:24)
[2019-09-23] MEDS: ENOXAPARIN 100 MG/1 ML (LOVENOX) SYR SC SCH (05:56)
--- NOTE | 2019-09-23 07:40 | Diagnostic Imaging Report ---
EXAMINATION: Portable erect AP chest at 331h. INDICATION: Respiratory distress The appearance of the chest has improved somewhat since the prior exam as the right lung base does seem better aerated. There is still a small amount of residual atelectasis/infiltrate and fluid present. The left lower lobe atelectasis/infiltrate and fluid seen previously is essentially no different. The upper lungs are clear. The heart is stable. The mediastinum is not widened. The osseous structures are intact. The supportive tubes and lines are unchanged in position. IMPRESSION: The appearance of the chest has improved as the right lung base does seem better aerated. There is still residual atelectasis/infiltrate and fluid involving both lower lobes. Dictated by: Dictated on workstation # [id number]
--- NOTE | 2019-09-23 07:59 | Physical Therapy Progress Note ---
Therapy Progress Note Patient currently sedated and on mechanical ventilator. PT will continue to monitor patient status and initiate PT when patient is medically stable and able to actively participate with skilled therapy. MERVIN PETERSON PT Sep 23, 2019 07:59
--- NOTE | 2019-09-23 08:00 | Progress Note - Cardiology ---
Cardiology SOAP Progress Note Subjective: [facility] Unable to provide any history Objective: I&O/Vital Signs 09/22/19 09/22/19 09/22/19 09/22/19 20:00 20:00 20:00 20:00 Temp 36.2 Pulse 112 Resp 28 B/P (MAP) 116/54 (74) Pulse Ox 94 96 O2 Delivery Mechanical Ventilator Mechanical Ventilator Mechanical Ventilator O2 Flow Rate 90.00 90.00 FiO2 90 09/22/19 09/22/19 09/22/19 09/22/19 21:00 22:00 22:14 23:00 Pulse 110 101 115 107 Resp 27 27 28 27 B/P (MAP) 110/59 (76) 92/59 (70) 85/41 (56) Pulse Ox 95 95 93 94 O2 Delivery Mechanical Ventilator Mechanical Ventilator Mechanical Ventilator O2 Flow Rate 90.00 90.00 90.00 FiO2 90 09/23/19 09/23/19 09/23/19 09/23/19 00:00 00:00 01:00 01:00 Pulse 87 84 84 Resp 27 27 B/P (MAP) 143/62 (89) 112/50 (70) Pulse Ox 94 96 96 O2 Delivery Mechanical Ventilator Mechanical Ventilator Mechanical Ventilator O2 Flow Rate 90.00 90.00 FiO2 90 09/23/19 09/23/19 09/23/19 09/23/19 01:45 02:00 03:00 04:00 Pulse 92 86 86 103 Resp 28 28 28 B/P (MAP) 127/58 (81) 112/52 (72) 103/59 (74) Pulse Ox 95 95 96 95 O2 Delivery Mechanical Ventilator Mechanical Ventilator Mechanical Ventilator O2 Flow Rate 90.00 90.00 90.00 FiO2 90 09/23/19 09/23/19 09/23/19 09/23/19 04:00 04:00 05:00 05:26 Temp 36.1 Pulse 100 98 Resp 28 B/P (MAP) 94/64 (74) 94/64 Pulse Ox 94 95 O2 Delivery Mechanical Ventilator Mechanical Ventilator O2 Flow Rate 90.00 FiO2 90 09/23/19 09/23/19 09/23/19 09/23/19 06:00 06:41 06:55 07:00 Pulse 86 86 87 Resp 28 B/P (MAP) 164/72 (102) Pulse Ox 98 98 O2 Delivery Mechanical Ventilator Mechanical Ventilator O2 Flow Rate 90.00 80.00 FiO2 80 09/23/19 07:00 Pulse 86 Resp 28 B/P (MAP) 148/66 (93) Pulse Ox 96 O2 Delivery Mechanical Ventilator O2 Flow Rate 80.00 09/23/19 00:00 Intake Total 0 ml Output Total 350 ml Balance -350 ml Weight (Pounds): 218 Weight (Ounces): 0.0 Weight (Calculated Kilograms): 98.430101 Constitutional: well-developed, well-nourished, other (intubated and sedated) Respiratory: No accessory muscle use, No respiratory distress; chest expansion is symmetric, other (fair air entry; intubated) Cardiovascular: irregularly irregular; No JVD; S1 and S2 Gastrointestional: audible bowel sounds Extremities: other (mod bilat LE swelling) Skin: warm/dry Results/Procedures: Labs Laboratory Tests 09/22/19 12:56: Glucometer 368H 09/22/19 18:14: Glucometer 366H 09/22/19 23:17: Glucometer 299H 09/23/19 03:05: White Blood Count 8.8, Red Blood Count 3.41L, Hemoglobin 10.9L, Hematocrit 34L, Mean Corpuscular Volume 99, Mean Corpuscular Hemoglobin 32, Mean Corpuscular Hemoglobin Concent 32, Red Cell Distribution Width 15.2H, Platelet Count 207, Mean Platelet Volume 11.2H, Neutrophils (%) (Auto) 90H, Lymphocytes (%) (Auto) 7L, Monocytes (%) (Auto) 3, Eosinophils (%) (Auto) 0, Basophils (%) (Auto) 0, Neutrophils # (Auto) 7.9H, Lymphocytes # (Auto) 0.6L, Monocytes # (Auto) 0.3, Eosinophils # (Auto) 0.0, Basophils # (Auto) 0.0, Blood Gas Puncture Site LEFT RADIAL, Blood Gas Patient Temperature 36.1, Arterial Blood pH 7.33*L, Arterial Blood Partial Pressure CO2 48H, Arterial Blood Partial Pressure O2 94H, Arterial Blood HCO3 25, Arterial Blood Total CO2 26.8, Arterial Blood Oxygen Saturation 97, Arterial Blood Base Excess -0.1, Jame Test POSITIVE, Blood Gas Ventilator Setting NO, Blood Gas Inspired Oxygen 90%, Sodium Level 138, Potassium Level 4.5, Chloride Level 105, Carbon Dioxide Level 22, Anion Gap 11, Blood Urea Nitrogen 62H, Creatinine 2.38H, Estimat Glomerular Filtration Rate 21, BUN/Creatinine Ratio 26, Glucose Level 284H, Calcium Level 8.6, Phosphorus Level 4.9H, Magnesium Level 3.0H 09/23/19 05:30: Ammonia 24 Microbiology 09/20/19 Mycobacterial Culture - Preliminary, Resulted 09/19/19 Blood Culture - Preliminary, Resulted Staphylococcus epidermidis Staphylococcus hominis See Comments Laboratory Tests 09/22/19 03:21 09/23/19 03:05 A/P: Assessment: Acute resp failure, likely due to COPD exacerbated by aspiration pneumonia Acute renal failure, likely ATN due to hypotension due to sepsis Hyperkalemia/hypermag likely secondary to renal failure PAF/flutter, currently NSR Hypotension due to sepsis and propofol (post-intubation) Elevated troponin - likely type 2 OR d/t hypoxia Card cath of 09/07/18: minimal CAD, LVEF 70-75%, elevated LVEDP Echo of 09/20/19: LVEF 50-55%, RVSP 35 mmHg H/o opiate addiction ETOH abuse Chronic tobacco use Fam h/o early CAD Hyperlipidemia Borderline DM II (fasting blood glucose on 09/07/18) Carotid u/s on 01/05/19: no significant dz Plan: * Prognosis guarded * D/c dig, continue amiodarone via NGT * Monitor lab closely JESS CONLEY MD FACP FAC CCDS Sep 23, 2019 08:00
--- NOTE | 2019-09-23 08:27 | NUR ---
TF Recommendations: Note pt has been NPO x4d. For pt to meet kcal needs, would recommend initiation of the following TF: Glucerna 1.5 at goal rate of 40 ml/hr. Begin at 10 ml/hr and increase by 10 ml q6h as tolerated. At goal rate, provides 1440 kcal (16 kcal/kg); 79 g Pro (0.9 g Pro/kg); and 729 ml free water. Flush with 100 ml H2O q4h for hydration status. With flushes, provides 1329 ml free water. Will continue to follow and reassess as pt needs and status change. Pancho Rodriguez, MS, RD, LD
[2019-09-23] MEDS: DEXMEDETOMIDINE 1,000 MCG/NS 250 ML IV SCH ×6 (08:28→18:26)
[2019-09-23] MEDS: PIPERACILLIN/TAZOBACTAM (BULK) 4.5 GM in NS (IVPB) 100 ML IV SCH ×2 (08:57→16:41)
[2019-09-23] MEDS: THIAMINE INJECTION 100 MG, FOLIC ACID INJECTION 1 MG, VITAMIN MULTI INJECTION 10 ML, MA... IV SCH ×5 (08:57)
[2019-09-23] MEDS: CALCIUM ACETATE 667 MG CAP (PHOSLO) PO SCH ×3 (08:57→18:23)
[2019-09-23] MEDS: AMIODARONE 200 MG (CORDARONE) TAB NG SCH ×2 (08:58→22:19)
--- NOTE | 2019-09-23 10:22 | Occ Therapy Progress Note ---
Therapy Progress Note Patient currently sedated and on mechanical ventilator. Will continue to monitor patient status and initiate OT when patient is medically stable and able to actively participate with skilled therapy YOKASTA PECK OT Sep 23, 2019 10:22
--- NOTE | 2019-09-23 11:42 | Progress Note - Hospitalist ---
ANSELMO DE LA CRUZ [facility] 09/23/19 1141: Subjective HPI/CC On Admission Date Seen by Provider: Sep 23, 2019 Time Seen by Provider: 11:30 Helene is a 54 y/o female that presented to via [facility] due to altered mental status. The following information was obtained from ER chart. Patient is currently intubated and sedated and has no family at the bedside at this time. She was brought in via EMS and was reportedly found at home after two days of no contact. She was unresponsive and was sitting in urine. There is concern of alcohol and narcotic use. She currently smokes 3 packs of cigarettes a day. She arrived to the ER with a fever and was hypoxic. The patient is requiring intubation and FiO2 of 100%. She received both chest CT and X-ray. Chest CT is showing extensive airspace consolidation with the right middle lobe, right lower lobe, left lower lobe possibly related to aspiration, pneumonia, or other alveo lar consolidative processes.Chest X-ray showed nonspecific bibasilar airspace consolidation with probable bilateral pleural effusions. Subjective/Events-last exam Pt is intubated and sedated. No family at bedside Unable to obtain ROS Osorio Catheter in place No bowel movement Sinus Rhythm with normal rate Objective Exam Vital Signs Vital Signs Date Time Temp Pulse Resp B/P (MAP) Pulse Ox O2 Delivery O2 Flow Rate FiO2 09/23/19 12:34 85 09/23/19 12:00 29 165/75 (105) 94 Mechanical Ventilator 80.00 09/23/19 09:47 80 09/23/19 08:00 36.2 Capillary Refill : Less Than 3 Seconds General Appearance: No Apparent Distress, Chronically ill Respiratory: No Accessory Muscle Use, No Respiratory Distress, Wheezing (Improved ) Cardiovascular: Regular Rate, Rhythm, Other (Anasarca Right leg>left) Gastrointestinal: Soft, Distended Extremity: Normal Capillary Refill, Pedal Edema Neurologic/Psychiatric: No Alert, No Oriented x3 Skin: Normal Color, Warm/Dry Lymphatic: No Adenopathy Results/Procedures Lab Laboratory Tests 09/23/19 03:05 Patient resulted labs reviewed. Imaging: Reviewed Imaging Report Assessment/Plan Assessment and Plan Assess & Plan/Chief Complaint Septic Shock - continue vasopressor and started on lactate ringer - Continue ABX regimen, blood cultures came back as pseudomonas and is sensitive to all abx. - BP is stable Acute on Chronic Respiratory failure with potential ARDS - Ventilated. Patient is currently at FiO2 of 80 and is stating >90%. Will continue to work with pulmonary care. Blood gases have improved. - Bronchoscopy performed - Influenza test negative - Patient was positive for pseudomonas and sensitive to all abx. Currently receiving Pip/Tazo 4.5g. D/C vancomycin at 1.25g, levofloxacin at 150ml at 100mls/hr and COPD acute exacerbation - Continue Albuterol/Ipratropium and steroid regimen AFIB/Flutter with RVR - continue anticoagulation, receiving 90mg QD, dose decreased due to renal function - spoke to cardiology and the patient has improved from a cardio standpoint. ECHO showed 50-55% EF - Currently on amiodarone, afib/aflutter resolved patient is currently in sinus rhythm. Hyperkalemia - resolved DVT - SCDs - continue anticoagulation of Enoxaparin of 90mg QD GIOVANNI - creatinine has risen to 2.38, will continue fluids - continue to monitor urinary output Alcohol abuse - continue withdrawal regimen with midazolam - will dormitory counselor when appropriate Constipation - will continue to monitor patient is yet to have a bowel movement Nutrition - will start nutrition supplementation through NG/OG tube Spoke with the family about transferring patient to o a more suitable place for her respiratory issues. Clinical Quality Measures DVT/VTE Risk/Contraindication: Risk Factor Score Per Nursin RFS Level Per Nursing on Admit: 4+=Very High BROOKLYN DUNLAP MD 09/23/19 0804: Assessment/Plan Assessment and Plan Assess & Plan/Chief Complaint Pt is relatively stable but remains critically ill. Will continue on abx and extend length at least over the weekend for pseudomonas. No family at bedside today but continue to pursue [place] transfer for vent weaning given severe ARDS. Lovenox dose decreased due to renal function and creatinine clearance. She is hyperglycemic without known history of DM. Will DC Banana Bag and monitor. If remains elevated may need Levemir or insulin gtt. Will start tube feeds as well for nutrition. Diagnosis/Problems Diagnosis/Problems (1) ARDS (adult respiratory distress syndrome) (2) Septic shock Status: Acute (3) Acute respiratory failure Status: Acute Qualifiers: Qualified Codes: J96.01 - Acute respiratory failure with hypoxia (4) Bilateral pneumonia Status: Acute Qualifiers: Qualified Codes: J18.1 - Lobar pneumonia, unspecified organism (5) Atrial fibrillation with rapid ventricular response Status: Acute (6) Alcohol use Status: Acute Supervisory-Addendum Brief Verification & Attestation Participated in pt care: history, MDM, physical Personally performed: exam, history, MDM, supervision of care Care discussed with: Medical Student Procedures: n/a Results interpretation: Verified all documentation Verification and Attestation of Medical Student E/M Service A medical student performed and documented this service in my presence. I reviewed and verified all information documented by the medical student and made modifications to such information, when appropriate. I personally performed the physical exam and medical decision making. Brooklyn Dunlap, Sep 23, 2019,14:32 [address] [facility] Sep 23, 2019 11:41 BROOKLYN DUNLAP MD Sep 23, 2019 14:44
[2019-09-23] MEDS: fentaNYL 1,250 MCG/NS 250 ML DRIP IV SCH ×2 (22:02)
[2019-09-23] MEDS: DILTIAZEM 125 MG/NS 100 ML IV SCH ×2 (22:02)
[2019-09-23] MEDS: MIDAZOLAM DRIP 50 MG/NS 90 ML IV SCH ×2 (22:02)
[2019-09-23] MEDS: FAMOTIDINE 20 MG (PEPCID) TABLET GT SCH (22:19)
[2019-09-24] VITALS (29 sets, daily range): BP systolic 144–190; BP diastolic 68–91
[2019-09-24] MEDS: inSUlin ASPART (NovoLOG) 1 UNIT/0.01 ML (CHARGE PER UNIT) SC SCH ×4 (00:20→17:42)
[2019-09-24] MEDS: PIPERACILLIN/TAZOBACTAM (BULK) 4.5 GM in NS (IVPB) 100 ML IV SCH ×3 (00:22→16:00)
[2019-09-24] MEDS: DEXMEDETOMIDINE 1,000 MCG/NS 250 ML IV SCH ×6 (01:58→16:01)
[2019-09-24] MEDS: RT-ALBUTEROL/IPRATROPIUM 3 ML (DUONEB) VIAL INH SCH ×6 (02:48→21:35)
[2019-09-24 03:13] LABS: ABG BASE EXCESS 0.6 MMOL/L (-2.5-2.5); ABG OXYGEN SATURATION 94 % (94-100); ABG PCO2 43 MMHG (35-45); ABG PH 7.38 (7.37-7.43); ABG PO2 67 MMHG (79-93); ABG TCO2 26.7 MMOL/L (21.0-31.0)
[2019-09-24 03:21] LABS: ALLENS TEST POSITIVE; INSPIRED O2 80%; PATIENT TEMP 35.7; VENTILATOR YES
[2019-09-24 03:22] LABS: BASOPHILS % (AUTO) 0 % (0-10); EOSINOPHILS % (AUTO) 0 % (0-10); HEMATOCRIT 36 % (35-52); HEMOGLOBIN 11.5 G/DL (11.5-16.0); LYMPHOCYTES # (AUTO) 0.3 X 10^3 (1.0-4.0); LYMPHOCYTES % (AUTO) 3 % (12-44); MEAN CORPUSCULAR HEMOGLOBIN 31 PG (25-34); MEAN CORPUSCULAR HGB CONC 32 G/DL (32-36); MEAN CORPUSCULAR VOLUME 97 FL (80-99); MEAN PLATELET VOLUME 11.1 FL (7.4-10.4); MONOCYTES # (AUTO) 0.3 X 10^3 (0.0-1.0); MONOCYTES % (AUTO) 3 % (0-12); NEUTROPHILS # (AUTO) 9.1 X 10^3 (1.8-7.8); NEUTROPHILS % (AUTO) 94 % (42-75); PLATELET COUNT 229 10^3/uL (130-400); RED CELL DISTRIBUTION WIDTH 15.4 % (10.0-14.5); WHITE BLOOD COUNT 9.7 10^3/uL (4.3-11.0)
[2019-09-24 03:43] LABS: CALCIUM 8.9 MG/DL (8.5-10.1); CREATININE SERUM 2.02 MG/DL (0.60-1.30); MAGNESIUM 3.1 MG/DL (1.6-2.4); PHOSPHORUS 4.1 MG/DL (2.3-4.7); POTASSIUM 4.6 MMOL/L (3.6-5.0)
[2019-09-24] MEDS ORDERED: BUMETANIDE 1 MG/4 ML (BUMEX) VIAL IV ONE (05:30)
--- NOTE | 2019-09-24 05:30 | Pulmonary Progress Note ---
Subjective Time Seen by a Provider: 05:30 Subjective/Events-last exam Sedated on vent Sepsis Event Evaluation Height, Weight, BMI Height: 5'5.00" Weight: 218lbs. 0.0oz. 98.278298uu; 34.07 BMI Method:Stated Exam Exam Vital Signs Date Time Temp Pulse Resp B/P (MAP) Pulse Ox O2 Delivery O2 Flow Rate FiO2 09/24/19 04:00 94 Mechanical Ventilator 80 09/24/19 04:00 35.0 09/24/19 04:00 95 18 156/80 (105) 94 Mechanical Ventilator 80.00 09/24/19 03:54 156/80 09/24/19 03:00 91 27 159/71 (100) 94 Mechanical Ventilator 80.00 09/24/19 02:48 72 27 95 80 09/24/19 02:00 75 27 162/72 (102) 93 Mechanical Ventilator 80.00 09/24/19 01:00 77 27 166/74 (104) 93 Mechanical Ventilator 80.00 09/24/19 01:00 77 09/24/19 00:00 79 27 169/74 (105) 94 Mechanical Ventilator 80.00 09/24/19 00:00 94 Mechanical Ventilator 80 09/24/19 00:00 35.8 09/23/19 23:00 80 28 156/71 (99) 94 Mechanical Ventilator 80.00 09/23/19 22:58 147/67 09/23/19 22:39 86 28 94 80 09/23/19 22:00 86 27 160/75 (103) 93 Mechanical Ventilator 80.00 09/23/19 21:00 82 27 166/77 (106) 92 Mechanical Ventilator 80.00 09/23/19 20:00 36.1 09/23/19 20:00 94 Mechanical Ventilator 80 09/23/19 20:00 88 27 163/75 (104) 90 Mechanical Ventilator 80.00 09/23/19 19:00 93 09/23/19 19:00 93 28 167/75 (105) 92 Mechanical Ventilator 80.00 09/23/19 18:44 76 27 95 80 09/23/19 18:26 77 170/89 09/23/19 18:00 78 28 170/69 (102) 95 Mechanical Ventilator 80.00 09/23/19 17:00 82 28 155/70 (98) 94 Mechanical Ventilator 80.00 09/23/19 16:00 36.3 09/23/19 16:00 84 27 154/73 (100) 95 Mechanical Ventilator 80.00 09/23/19 15:30 94 Mechanical Ventilator 80 09/23/19 15:25 89 28 94 80 09/23/19 15:00 89 27 156/72 (100) 93 Mechanical Ventilator 80.00 09/23/19 14:00 80 11 166/78 (107) 93 Mechanical Ventilator 80.00 09/23/19 13:00 81 29 169/77 (107) 94 Mechanical Ventilator 80.00 09/23/19 12:34 85 09/23/19 12:00 82 29 165/75 (105) 94 Mechanical Ventilator 80.00 09/23/19 12:00 36.0 09/23/19 11:30 94 Mechanical Ventilator 80 09/23/19 11:00 86 27 157/71 (99) 95 Mechanical Ventilator 80.00 09/23/19 10:26 89 165/77 09/23/19 10:00 95 27 166/76 (106) 95 Mechanical Ventilator 80.00 09/23/19 09:47 85 28 95 80 09/23/19 09:00 87 28 161/75 (103) 94 Mechanical Ventilator 80.00 09/23/19 08:00 92 148/66 (93) 97 Mechanical Ventilator 80.00 09/23/19 08:00 36.2 09/23/19 07:30 94 Mechanical Ventilator 80 09/23/19 07:00 86 28 148/66 (93) 96 Mechanical Ventilator 80.00 09/23/19 07:00 87 09/23/19 06:55 Mechanical Ventilator 80.00 09/23/19 06:41 86 28 98 80 09/23/19 06:00 86 28 164/72 (102) 98 Mechanical Ventilator 90.00 I & O 09/24/19 07:00 Intake Total 0 ml Output Total 950 ml Balance -950 ml Height & Weight Height: 5'5.00" Weight: 218lbs. 0.0oz. 98.666889zo; 34.07 BMI Method:Stated General Appearance: No Apparent Distress, Chronically ill HEENT: Other (could only check pupillary response patient is intubated and sedated. ) Neck: Non Tender, Supple Respiratory: No Accessory Muscle Use, No Respiratory Distress, Wheezing (Improved ) Cardiovascular: Regular Rate, Rhythm, Other (Anasarca Right leg>left) Capillary Refill: Less Than 3 Seconds Extremity: Normal Capillary Refill, Pedal Edema Neurologic/Psychiatric: No Alert, No Oriented x3 Skin: Normal Color, Warm/Dry Lymphatic: No Adenopathy Results Lab Laboratory Tests 09/23/19 03:05 09/24/19 02:56 Assessment/Plan Assessment/Plan Acute on chronic respiratory failure -- ARDS - Pa02/Fi02 =104.4 -Continue vent -Propofol, and precedex -Give 2mg of bumex x 1 Atelectasis -Monitor RLL DVT -CTA was negative for PE -Lovenox therapeutic dosing Aflutter - Ammio per cardiology Bilateral PNA - Sputum is showing Pseudomonus -- -Zosyn -Influenza is negative -Thakkar cultures pending Hypotension -Vasopressin - is still going -Currently off Levophed COPDAE -Duoneb -Steroids Septic shock -Currently on Levophed -SoluCortef Afib/Flutter RVR -Cardiology following Consider [facility] transfer JACLYN SAVAGE DO Sep 24, 2019 05:30
[2019-09-24] MEDS: ENOXAPARIN 100 MG/1 ML (LOVENOX) SYR SC SCH (06:51)
[2019-09-24] MEDS: HYDROCORTISONE 100 MG/2 ML (Solu-CORTEF) VIAL IV SCH ×3 (06:51→22:56)
[2019-09-24] MEDS: LACTATED RINGERS 1,000 ML IV SCH ×3 (06:58→23:25)
--- NOTE | 2019-09-24 07:17 | Diagnostic Imaging Report ---
INDICATION: Dyspnea, follow-up pneumonia. COMPARISON: 09/23/2019. DISCUSSION: Single portable upright view of the chest was obtained. Stable support lines and catheter. Stable normal heart size. Patchy consolidation within the lung bases is increased, likely worsening atelectasis and/or pneumonia. No pleural fluid or pneumothorax. No osseous abnormality. IMPRESSION: 1. Worsening bibasilar consolidation. Dictated by: Dictated on workstation # [id number]
[2019-09-24] MEDS: MAGNESIUM 1 GM/100 ML IVPB 100 ML IV SCH (07:38)
[2019-09-24] MEDS: KCL 20 MEQ TAB (K-DUR) PO SCH (07:38)
[2019-09-24] MEDS: POTASSIUM CL 10MEQ/50ML IVPB 50 ML IV SCH (07:38)
[2019-09-24] MEDS: AMIODARONE 200 MG (CORDARONE) TAB NG SCH ×2 (07:39→22:22)
[2019-09-24] MEDS: CALCIUM ACETATE 667 MG CAP (PHOSLO) PO SCH ×3 (07:39→17:42)
--- NOTE | 2019-09-24 09:44 | Progress Note - Hospitalist ---
ANSELMO DE LA CRUZ [facility] 09/24/19 9:44am: Subjective HPI/CC On Admission Date Seen by Provider: Sep 24, 2019 Time Seen by Provider: 09:35 Helene is a 54 y/o female that presented to via [facility] due to altered mental s tatus. The following information was obtained from ER chart. Patient is currently intubated and sedated and has no family at the bedside at this time. She was brought in via EMS and was reportedly found at home after two days of no contact. She was unresponsive and was sitting in urine. There is concern of alcohol and narcotic use. She currently smokes 3 packs of cigarettes a day. She arrived to the ER with a fever and was hypoxic. The patient is requiring intubation and FiO2 of 100%. She received both chest CT and X-ray. Chest CT is showing extensive airspace consolidation with the right middle lobe, right lower lobe, left lower lobe possibly related to aspiration, pneumonia, or other unique eolar consolidative processes.Chest X-ray showed nonspecific bibasilar airspace consolidation with probable bilateral pleural effusions. Subjective/Events-last exam Pt is intubated and sedated. Family at bedside Unable to obtain ROS Objective Exam Vital Signs Vital Signs Date Time Temp Pulse Resp B/P (MAP) Pulse Ox O2 Delivery O2 Flow Rate FiO2 09/24/19 11:04 73 186/83 09/24/19 11:00 27 92 Mechanical Ventilator 70.00 09/24/19 10:48 70 09/24/19 07:40 37.0 Capillary Refill : Less Than 3 Seconds General Appearance: Chronically ill Respiratory: No Accessory Muscle Use, No Respiratory Distress Cardiovascular: Regular Rate, Rhythm, Other (Radial pulse 2/4, LE edema in the right leg >left. Bilateral UE edema) Gastrointestinal: Distended; No Guarding Extremity: Pedal Edema Neurologic/Psychiatric: No Alert, No Oriented x3 Skin: Warm/Dry Lymphatic: No Adenopathy Results/Procedures Lab Laboratory Tests 09/24/19 02:56 Patient resulted labs reviewed. Imaging: Reviewed Imaging Report Assessment/Plan Assessment and Plan Assess & Plan/Chief Complaint Septic Shock - continue vasopressor and started on lactate ringer - Continue ABX regimen, blood cultures came back as pseudomonas and is sensitive to all abx. - BP is stable Acute on Chronic Respiratory failure with potential ARDS - Ventilated. Patient is currently at FiO2 of 70 and is stating >90%. Will continue to work with pulmonary care. Blood gases have improved. - Bronchoscopy performed - Influenza test negative - Patient was positive for pseudomonas and sensitive to all abx. Currently receiving Pip/Tazo 4.5g. D/C vancomycin at 1.25g, levofloxacin at 150ml at 100mls/hr - Dr. Escobar ordered one time dose of diuretic - blood gases have improved COPD acute exacerbation - Continue Albuterol/Ipratropium and steroid regimen AFIB/Flutter with RVR - continue anticoagulation, receiving 90mg QD, dose decreased due to renal function - spoke to cardiology and the patient has improved from a cardio standpoint. ECHO showed 50-55% EF - Currently on amiodarone, afib/aflutter resolved patient is currently in sinus rhythm with a normal rate - BNP 147.6 Hyperkalemia - resolved DVT - SCDs - continue anticoagulation of Enoxaparin of 90mg QD GIOVANNI - creatinine has come down from 2.38 to 2.02, will continue fluids - continue to monitor urinary output stable at .39ml/kg/hr Alcohol abuse - continue withdrawal regimen with midazolam - will high school guidance counselor when appropriate Constipation - will continue to monitor patient is yet to have a bowel movement. - still has not had a bowel movement, just started NG feedings will give s ometime to see if this gets things moving and will consider stool softeners. Nutrition - will start nutrition supplementation through NG/OG tube Hyperglycemic - started on 10units Levemir Spoke with the family about transferring patient to o a more suitable place for her respiratory issues. Clinical Quality Measures DVT/VTE Risk/Contraindication: Risk Factor Score Per Nursin RFS Level Per Nursing on Admit: 4+=Very High BROOKLYN CHOPRA MD 09/24/19 4:31pm: Assessment/Plan Assessment and Plan Assess & Plan/Chief Complaint Patient relatively stable. Will continue current regimen and await return call from [facility] for acceptance as she ramins on 18 PEEP and 70% FiO2. BS have been consistently elevated without dextrose running anymore so will add evening Levemir. Diagnosis/Problems Diagnosis/Problems (1) Alcohol use Status: Acute (2) ARDS (adult respiratory distress syndrome) (3) Atrial fibrillation with rapid ventricular response Status: Acute (4) Bilateral pneumonia Status: Acute Qualifiers: Qualified Codes: J18.1 - Lobar pneumonia, unspecified organism (5) Septic shock Status: Acute (6) Acute respiratory failure Status: Acute Qualifiers: Qualified Codes: J96.01 - Acute respiratory failure with hypoxia Supervisory-Addendum Brief Verification & Attestation Participated in pt care: history, MDM, physical Personally performed: exam, history, MDM, supervision of care Care discussed with: Medical Student Procedures: n/a Results interpretation: Verified all documentation Verification and Attestation of Medical Student E/M Service A medical student performed and documented this service in my presence. I reviewed and verified all information documented by the medical student and made modifications to such information, when appropriate. I personally performed the physical exam and medical decision making. Brooklyn Chopra, Sep 24, 2019,16:28 ANSELMO DE LA CRUZ [facility] Sep 24, 2019 9:44 am BROOKLYN CHOPRA MD Sep 24, 2019 4:31 pm
--- NOTE | 2019-09-24 10:24 | Physical Therapy Progress Note ---
Therapy Progress Note Pt remains on the ventilator at this time. Will continue to follow. TY GRECO PT Sep 24, 2019 10:24
[2019-09-24] MEDS ORDERED: amLODIPine 5 MG (NORVASC) TAB ONE (13:49)
[2019-09-24] MEDS ORDERED: amLODIPine 5 MG (NORVASC) TAB PO ONE (14:00)
--- NOTE | 2019-09-24 16:09 | Cardiology Progress Note ---
Cardiology SOAP Progress Note Subjective: On mechanical ventilation. Objective: I&O/Vital Signs 09/24/19 09/24/19 09/24/19 09/24/19 05:00 06:00 06:57 07:00 Pulse 78 79 93 Resp B/P (MAP) 156/77 (103) 162/75 (104) Pulse Ox 94 93 O2 Delivery Mechanical Ventilator Mechanical Ventilator Mechanical Ventilator O2 Flow Rate 80.00 80.00 70.00 09/24/19 09/24/19 09/24/19 09/24/19 07:00 07:12 07:40 07:40 Temp 37.0 Pulse 92 92 Resp B/P (MAP) 150/71 (97) Pulse Ox 94 94 94 O2 Delivery Mechanical Ventilator Mechanical Ventilator O2 Flow Rate 70.00 FiO2 70 70 09/24/19 09/24/19 09/24/19 09/24/19 08:00 08:29 09:00 10:00 Pulse 79 75 78 74 Resp B/P (MAP) 158/74 (102) 159/78 162/72 (102) 188/91 (123) Pulse Ox 95 92 91 O2 Delivery Mechanical Ventilator Mechanical Ventilator Mechanical Ventilator O2 Flow Rate 70.00 70.00 70.00 09/24/19 09/24/19 09/24/19 09/24/19 10:48 11:00 11:04 12:00 Pulse 92 73 73 74 Resp B/P (MAP) 186/83 (117) 186/83 186/79 (114) Pulse Ox 92 92 91 O2 Delivery Mechanical Ventilator Mechanical Ventilator O2 Flow Rate 70.00 70.00 FiO2 70 09/24/19 09/24/19 09/24/19 09/24/19 12:00 12:07 12:15 13:00 Temp 35.6 Pulse 73 Resp B/P (MAP) 190/83 (118) Pulse Ox 94 93 O2 Delivery Mechanical Ventilator Mechanical Ventilator Mechanical Ventilator O2 Flow Rate 75.00 75.00 FiO2 75 09/24/19 09/24/19 09/24/19 09/24/19 13:00 14:00 14:38 14:44 Pulse 74 76 90 94 Resp B/P (MAP) 183/82 (115) 152/72 Pulse Ox 94 94 O2 Delivery Mechanical Ventilator O2 Flow Rate 75.00 FiO2 75 09/24/19 09/24/19 15:00 16:01 Pulse 75 71 Resp 21 B/P (MAP) 153/72 (99) 158/74 Pulse Ox 94 O2 Delivery Mechanical Ventilator O2 Flow Rate 75.00 09/24/19 00:00 Intake Total 100 ml Output Total 650 ml Balance -550 ml Weight (Pounds): 218 Weight (Ounces): 0.0 Weight (Calculated Kilograms): 98.296997 Constitutional: well-developed, well-nourished, other (intubated and sedated) Respiratory: No accessory muscle use, No respiratory distress; chest expansion is symmetric, other (fair air entry; intubated) Cardiovascular: irregularly irregular; No JVD; S1 and S2 Gastrointestional: audible bowel sounds Extremities: other (mod bilat LE swelling) Neurologic/Psychiatric: other (intubated/ventilated) Skin: warm/dry Results/Procedures: Labs Laboratory Tests 09/23/19 18:04: Glucometer 285H 09/23/19 23:59: Glucometer 246H 09/24/19 02:56: White Blood Count 9.7, Red Blood Count 3.66L, Hemoglobin 11.5, Hematocrit 36, Mean Corpuscular Volume 97, Mean Corpuscular Hemoglobin 31, Mean Corpuscular Hemoglobin Concent 32, Red Cell Distribution Width 15.4H, Platelet Count 229, M vinod Platelet Volume 11.1H, Neutrophils (%) (Auto) 94H, Lymphocytes (%) (Auto) 3L , Monocytes (%) (Auto) 3, Eosinophils (%) (Auto) 0, Basophils (%) (Auto) 0, Neutrophils # (Auto) 9.1H, Lymphocytes # (Auto) 0.3L, Monocytes # (Auto) 0.3, Eosinophils # (Auto) 0.0, Basophils # (Auto) 0.0, Sodium Level 137, Potassium Level 4.6, Chloride Level 105, Carbon Dioxide Level 21, Anion Gap 11, Blood Urea Nitrogen 55H, Creatinine 2.02H, Estimat Glomerular Filtration Rate 26, BUN/Creatinine Ratio 27, Glucose Level 265H, Calcium Level 8.9, Phosphorus Level 4.1, Magnesium Level 3.1H, B-Type Natriuretic Peptide 147.6H 09/24/19 03:07: Blood Gas Puncture Site LEFT RADIAL, Blood Gas Patient Temperature 35.7, A rterial Blood pH 7.38, Arterial Blood Partial Pressure CO2 43, Arterial Blood Partial Pressure O2 67L, Arterial Blood HCO3 25, Arterial Blood Total CO2 26.7, Arterial Blood Oxygen Saturation 94, Arterial Blood Base Excess 0.6, Jame Test POSITIVE, Blood Gas Ventilator Setting YES, Blood Gas Inspired Oxygen 80% 09/24/19 05:50: Glucometer 248H 09/24/19 11:54: Glucometer 283H Microbiology 09/20/19 Mycobacterial Culture - Preliminary, Resulted 09/19/19 Blood Culture - Final, Complete Staphylococcus epidermidis Staphylococcus hominis A/P: Assessment/Dx: Acute resp failure, likely due to COPD exacerbated by aspiration pneumonia Acute renal failure, likely ATN due to hypotension due to sepsis Hyperkalemia/hypermag likely secondary to renal failure PAF/flutter, currently NSR Hypotension due to sepsis and propofol (post-intubation) Elevated troponin - likely type 2 MO d/t hypoxia Card cath of 09/07/18: minimal CAD, LVEF 70-75%, elevated LVEDP Echo of 09/20/19: LVEF 50-55%, RVSP 35 mmHg H/o opiate addiction ETOH abuse Chronic tobacco use Fam h/o early CAD Hyperlipidemia Borderline DM II (fasting blood glucose on 09/07/18) Carotid u/s on 01/05/19: no significant dz Plan: Plan: * Prognosis guarded * D/c dig, continue amiodarone via NGT * Monitor lab closely * Start blood pressure medication amlodipine 5 mg via OG tube. Thank you for your consultation. Please call me if you have any questions. Taz Velazco MD, FACP, FACC, FSCAI, FHRS, CCDS Interventional Cardiology Cardiac Electrophysiology Vascular Medicine and Endovascular Interventions Graciela VELAZCO MD Sep 24, 2019 16:09
[2019-09-24] MEDS: FAMOTIDINE 20 MG (PEPCID) TABLET GT SCH (22:21)
[2019-09-24] MEDS: DILTIAZEM 125 MG/NS 100 ML IV SCH ×2 (23:31)
[2019-09-24] MEDS: MIDAZOLAM DRIP 50 MG/NS 90 ML IV SCH ×2 (23:32)
[2019-09-24] MEDS: fentaNYL 1,250 MCG/NS 250 ML DRIP IV SCH ×2 (23:32)
[2019-09-25] VITALS (30 sets, daily range): BP systolic 134–179; BP diastolic 3–89
[2019-09-25] MEDS: PIPERACILLIN/TAZOBACTAM (BULK) 4.5 GM in NS (IVPB) 100 ML IV SCH ×3 (00:14→16:37)
[2019-09-25] MEDS: inSUlin ASPART (NovoLOG) 1 UNIT/0.01 ML (CHARGE PER UNIT) SC SCH ×4 (00:20→17:59)
[2019-09-25] MEDS: DEXMEDETOMIDINE 1,000 MCG/NS 250 ML IV SCH ×8 (01:19→20:07)
[2019-09-25] MEDS: RT-ALBUTEROL/IPRATROPIUM 3 ML (DUONEB) VIAL INH SCH ×6 (02:20→22:57)
[2019-09-25 03:51] LABS: ABG BASE EXCESS 0.8 MMOL/L (-2.5-2.5); ABG OXYGEN SATURATION 95 % (94-100); ABG PCO2 44 MMHG (35-45); ABG PH 7.37 (7.37-7.43); ABG PO2 79 MMHG (79-93); ABG TCO2 27.1 MMOL/L (21.0-31.0); BASOPHILS % (AUTO) 0 % (0-10); EOSINOPHILS % (AUTO) 0 % (0-10); HEMATOCRIT 36 % (35-52); HEMOGLOBIN 11.7 G/DL (11.5-16.0); LYMPHOCYTES # (AUTO) 0.3 X 10^3 (1.0-4.0); LYMPHOCYTES % (AUTO) 2 % (12-44); MEAN CORPUSCULAR HEMOGLOBIN 32 PG (25-34); MEAN CORPUSCULAR HGB CONC 33 G/DL (32-36); MEAN CORPUSCULAR VOLUME 98 FL (80-99); MEAN PLATELET VOLUME 10.9 FL (7.4-10.4); MONOCYTES # (AUTO) 0.3 X 10^3 (0.0-1.0); MONOCYTES % (AUTO) 2 % (0-12); NEUTROPHILS # (AUTO) 13.4 X 10^3 (1.8-7.8); NEUTROPHILS % (AUTO) 95 % (42-75); PLATELET COUNT 241 10^3/uL (130-400); RED CELL DISTRIBUTION WIDTH 15.4 % (10.0-14.5)
[2019-09-25 03:54] LABS: ALLENS TEST POSITIVE; INSPIRED O2 75%; PATIENT TEMP 35.7; VENTILATOR YES
[2019-09-25 04:10] LABS: CALCIUM 8.9 MG/DL (8.5-10.1); CREATININE SERUM 1.81 MG/DL (0.60-1.30); MAGNESIUM 2.6 MG/DL (1.6-2.4); PHOSPHORUS 4.4 MG/DL (2.3-4.7); POTASSIUM 4.4 MMOL/L (3.6-5.0)
[2019-09-25 05:33] LABS: LYMPHOCYTES % (MANUAL) 3 %; MONOCYTES % (MANUAL) 1 %; NEUTROPHILS % (MANUAL) 96 %
--- NOTE | 2019-09-25 06:20 | Pulmonary Progress Note ---
Subjective Time Seen by a Provider: 05:31 Subjective/Events-last exam Pt is sedated on vent. Sepsis Event Evaluation Height, Weight, BMI Height: 5'5.00" Weight: 218lbs. 0.0oz. 98.323219oj; 34.07 BMI Method:Stated Exam Exam Vital Signs Date Time Temp Pulse Resp B/P (MAP) Pulse Ox O2 Delivery O2 Flow Rate FiO2 09/25/19 06:00 73 22 170/85 (113) 96 Mechanical Ventilator 75.00 09/25/19 05:00 80 15 152/78 (102) 95 Mechanical Ventilator 75.00 09/25/19 04:51 163/84 09/25/19 04:00 81 22 152/78 (102) 94 Mechanical Ventilator 75.00 09/25/19 03:00 82 22 158/75 (102) 96 Mechanical Ventilator 75.00 09/25/19 02:20 70 28 95 75 09/25/19 02:00 66 16 170/76 (107) 94 Mechanical Ventilator 75.00 09/25/19 01:20 168/79 09/25/19 01:00 68 09/25/19 01:00 69 16 159/75 (103) 94 Mechanical Ventilator 75.00 09/25/19 00:00 35.8 09/25/19 00:00 76 19 154/71 (98) 96 Mechanical Ventilator 75.00 09/25/19 00:00 94 Mechanical Ventilator 75 09/24/19 22:22 156/68 09/24/19 22:00 71 18 156/68 (97) 94 Mechanical Ventilator 75.00 09/24/19 21:35 70 28 95 75 09/24/19 21:00 70 15 149/69 (95) 94 Mechanical Ventilator 75.00 09/24/19 20:00 94 Mechanical Ventilator 75 09/24/19 20:00 35.8 09/24/19 20:00 75 18 144/70 (94) 95 Mechanical Ventilator 75.00 09/24/19 19:33 89 159/76 09/24/19 19:00 68 09/24/19 19:00 68 25 171/80 (110) 95 Mechanical Ventilator 75.00 09/24/19 18:20 71 28 94 75 09/24/19 18:00 67 37 168/82 (110) 94 Mechanical Ventilator 75.00 09/24/19 17:00 77 39 165/79 (107) 94 Mechanical Ventilator 75.00 09/24/19 16:11 94 Mechanical Ventilator 75 09/24/19 16:01 71 158/74 09/24/19 16:00 71 27 158/74 (102) 93 Mechanical Ventilator 75.00 09/24/19 16:00 35.8 09/24/19 15:00 75 21 153/72 (99) 94 Mechanical Ventilator 75.00 09/24/19 14:44 94 28 94 75 09/24/19 14:38 90 152/72 09/24/19 14:00 76 27 183/82 (115) 94 Mechanical Ventilator 75.00 09/24/19 13:00 74 09/24/19 13:00 73 28 190/83 (118) 93 Mechanical Ventilator 75.00 09/24/19 12:15 94 Mechanical Ventilator 75 09/24/19 12:07 Mechanical Ventilator 75.00 09/24/19 12:00 35.6 09/24/19 12:00 74 28 186/79 (114) 91 Mechanical Ventilator 70.00 09/24/19 11:04 73 186/83 09/24/19 11:00 73 27 186/83 (117) 92 Mechanical Ventilator 70.00 09/24/19 10:48 92 28 92 70 09/24/19 10:00 74 12 188/91 (123) 91 Mechanical Ventilator 70.00 09/24/19 09:00 78 27 162/72 (102) 92 Mechanical Ventilator 70.00 09/24/19 08:29 75 159/78 09/24/19 08:00 79 27 158/74 (102) 95 Mechanical Ventilator 70.00 09/24/19 07:40 37.0 09/24/19 07:40 94 Mechanical Ventilator 70 09/24/19 07:12 92 28 94 70 09/24/19 07:00 92 23 150/71 (97) 94 Mechanical Ventilator 70.00 09/24/19 07:00 93 09/24/19 06:57 Mechanical Ventilator 70.00 I & O 09/25/19 07:00 Intake Total 3200 ml Output Total 2025 ml Balance 1175 ml Height & Weight Height: 5'5.00" Weight: 218lbs. 0.0oz. 98.356641eu; 34.07 BMI Method:Stated General Appearance: Chronically ill HEENT: Other (could only check pupillary response patient is intubated and sedated. ) Neck: Non Tender, Supple Respiratory: No Accessory Muscle Use, No Respiratory Distress Cardiovascular: Regular Rate, Rhythm, Other (Radial pulse 2/4, LE edema in the right leg >left. Bilateral UE edema) Capillary Refill: Less Than 3 Seconds Extremity: Pedal Edema Neurologic/Psychiatric: No Alert, No Oriented x3 Skin: Warm/Dry Lymphatic: No Adenopathy Results Lab Laboratory Tests 09/24/19 02:56 09/25/19 03:40 Assessment/Plan Assessment/Plan Acute on chronic respiratory failure -- ARDS - Pa02/Fi02 =78 -Intubated on 09/19 -Will attempt to transfer to [facility]. I will be out of town after today. -Pt does not tolerate turning secondary to desaturations. -WBC is going up. Solucortef was d/c'd yesterday -Repeat CBC - if WBC still higher then yesterday will add vancomycin -Repeat haddad cultures -Continue vent -Propofol, and precedex -Tolerating TF - -Continue Bumex -Continue to titrate Fi02 as tolerated Leukocytosis -Possibly secondary to steroids -d/c solucortef Atelectasis -Monitor RLL DVT -CTA was negative for PE -Lovenox therapeutic dosing Aflutter - Ammio per cardiology Bilateral PNA - Sputum is showing Pseudomonus -- -Zosyn -Influenza is negative Hypotension -- Now hypertensive -D/C Solucortef 09/25 COPDAE -Duoneb -Steroids Afib/Flutter RVR -Cardiology following JACLYN SAVAGE DO Sep 25, 2019 06:20
[2019-09-25] MEDS ORDERED: BUMETANIDE 1 MG/4 ML (BUMEX) VIAL IV ONE (06:30)
--- NOTE | 2019-09-25 06:39 | Diagnostic Imaging Report ---
Portable erect AP chest at 3:26. Indication: Respiratory distress. The heart size is within normal limits and stable when compared to 09/24/2019. Both lung bases do seem better aerated when compared to the prior study. There is still some residual atelectasis/infiltrate and fluid present however. The upper lungs remain clear. The mediastinum is not widened. The osseous structures are intact. The supportive tubes and lines are still in good position. Impression: The appearance of the chest has improved as both lung bases do seem better aerated. A followup study would be recommended for continued evaluation. Dictated by: Dictated on workstation # [id number]
[2019-09-25] MEDS: MAGNESIUM 1 GM/100 ML IVPB 100 ML IV SCH (06:50)
[2019-09-25] MEDS: KCL 20 MEQ TAB (K-DUR) PO SCH (06:50)
[2019-09-25] MEDS: POTASSIUM CL 10MEQ/50ML IVPB 50 ML IV SCH (06:50)
[2019-09-25] MEDS: BUMETANIDE 1 MG/4 ML (BUMEX) VIAL IV SCH ×3 (06:55→20:19)
[2019-09-25] MEDS: ENOXAPARIN 100 MG/1 ML (LOVENOX) SYR SC SCH (06:55)
[2019-09-25] MEDS: AMIODARONE 200 MG (CORDARONE) TAB NG SCH ×2 (08:20→20:07)
[2019-09-25] MEDS: CALCIUM ACETATE 667 MG CAP (PHOSLO) PO SCH ×3 (08:20→16:39)
--- NOTE | 2019-09-25 09:04 | Progress Note - Hospitalist ---
Subjective HPI/CC On Admission Date Seen by Provider: Sep 25, 2019 Time Seen by Provider: 08:56 Helene is a 54 y/o female that presented to via [facility] due to altered mental status. The following information was obtained from ER chart. Patient is currently intubated and sedated and has no family at the bedside at this time. She was brought in via EMS and was reportedly found at home after two days of no contact. She was unresponsive and was sitting in urine. There is concern of alcohol and narcotic use. She currently smokes 3 packs of cigarettes a day. She arrived to the ER with a fever and was hypoxic. The patient is requiring intubation and FiO2 of 100%. She received both chest CT and X-ray. Chest CT is showing extensive airspace consolidation with the right middle lobe, right lower lobe, left lower lobe possibly related to aspiration, pneumonia, or other alveolar consolidative processes.Chest X-ray showed nonspecific bibasilar airspace consolidation with probable bilateral pleural effusions. Subjective/Events-last exam Pt remains intubated and sedated. No ROS possible. Parents at bedside. All questions answered. Still hopeful to transfer to [facility] for vent weaning. Objective Exam Vital Signs Vital Signs Date Time Temp Pulse Resp B/P (MAP) Pulse Ox O2 Delivery O2 Flow Rate FiO2 09/25/19 08:20 100 146/81 09/25/19 07:07 28 93 70 09/25/19 06:00 Mechanical Ventilator 75.00 09/25/19 00:00 35.8 Capillary Refill : Less Than 3 Seconds General Appearance: Chronically ill, Obese, Other (intubated/sedated) HEENT: Other (OG in place, tube feeds running) Respiratory: Decreased Breath Sounds, Rhonci, Other (on vent- PEEP 18, FiO2 70%) Cardiovascular: Regular Rate, Rhythm, No Murmur Gastrointestinal: Normal Bowel Sounds, Soft Genital/Rectal: Other (zavala in place) Neurologic/Psychiatric: Other (sedated, appears comfortable, arouses to name) Results/Procedures Lab Laboratory Tests 09/25/19 03:40 Patient resulted labs reviewed. Imaging: Reviewed Imaging Report Assessment/Plan Assessment and Plan Assess & Plan/Chief Complaint Septic Shock - off pressors, - BP well controlled - Contnue Zosyn for pseudomonas Acute on Chronic Respiratory failure with ARDS - Pulm consulted appreciate recs - Attempt to maintain net negative I/Os, continue Bumex -s/p bronch, fluids sent grew pseudomonas - Influenza negative - [place] referral placed for vent weaning COPD acute exacerbation - Continue Albuterol/Ipratropium and steroid regimen AFIB/Flutter with RVR - Continue renally dosed Lovenox - Continue on amiodarone - Cardiology consulted, appreciate recs RLE DVT - Lovenox as above GIOVANNI - Improving, continue to monitor UOP, up yesterday - Balance fluids with need to be net negative for ARDS Alcohol abuse - continue withdrawal regimen with midazolam - will eap counselor when appropriate Nutrition - Tolerating tube feeds well Hyperglycemic - Continue Levemir, no known diagnosis of DM - SSI Critical Care Critically Ill Patient Diagnosis/Problems Diagnosis/Problems (1) Alcohol use Status: Acute (2) ARDS (adult respiratory distress syndrome) (3) Atrial fibrillation with rapid ventricular response Status: Acute (4) Bilateral pneumonia Status: Acute Qualifiers: Pneumonia type: due to unspecified organism Lung location: lower lobe of lung Qualified Codes: J18.1 - Lobar pneumonia, unspecified organism (5) Septic shock Status: Acute (6) Acute respiratory failure Status: Acute Qualifiers: Respiratory failure complication: hypoxia Qualified Codes: J96.01 - Acute respiratory failure with hypoxia Clinical Quality Measures DVT/VTE Risk/Contraindication: Risk Factor Score Per Nursin RFS Level Per Nursing on Admit: 4+=Very High BROOKLYN DUNLAP MD Sep 25, 2019 09:04
--- NOTE | 2019-09-25 11:16 | Cardiology Progress Note ---
Cardiology SOAP Progress Note Subjective: Intubated/ventilated Objective: I&O/Vital Signs 09/25/19 09/25/19 09/25/19 09/25/19 00:00 00:00 00:00 01:00 Temp 35.8 Pulse 76 69 Resp 19 16 B/P (MAP) 154/71 (98) 159/75 (103) Pulse Ox 94 96 94 O2 Delivery Mechanical Ventilator Mechanical Ventilator Mechanical Ventilator O2 Flow Rate 75.00 75.00 FiO2 75 09/25/19 09/25/19 09/25/19 09/25/19 01:00 01:20 02:00 02:20 Pulse 68 66 70 Resp 16 28 B/P (MAP) 168/79 170/76 (107) Pulse Ox 94 95 O2 Delivery Mechanical Ventilator O2 Flow Rate 75.00 FiO2 75 09/25/19 09/25/19 09/25/19 09/25/19 03:00 04:00 04:00 04:51 Pulse 82 81 Resp 22 B/P (MAP) 158/75 (102) 152/78 (102) 163/84 Pulse Ox 96 94 94 O2 Delivery Mechanical Ventilator Mechanical Ventilator Mechanical Ventilator O2 Flow Rate 75.00 75.00 FiO2 75 09/25/19 09/25/19 09/25/19 09/25/19 05:00 06:00 07:00 07:00 Pulse 80 73 80 80 Resp 15 22 28 B/P (MAP) 152/78 (102) 170/85 (113) 179/89 (119) Pulse Ox 95 96 97 O2 Delivery Mechanical Ventilator Mechanical Ventilator Mechanical Ventilator O2 Flow Rate 75.00 75.00 75.00 09/25/19 09/25/19 09/25/19 09/25/19 07:07 08:00 08:00 08:20 Pulse 84 99 100 Resp 28 17 B/P (MAP) 146/81 (102) 146/81 Pulse Ox 93 92 95 O2 Delivery Mechanical Ventilator Mechanical Ventilator O2 Flow Rate 75.00 FiO2 70 75 09/25/19 09/25/19 09/25/19 09:00 10:00 10:21 Pulse 94 87 87 Resp 13 15 30 B/P (MAP) 150/77 (101) 136/72 (93) Pulse Ox 93 94 94 O2 Delivery Mechanical Ventilator Mechanical Ventilator O2 Flow Rate 75.00 75.00 FiO2 70 09/25/19 00:00 Intake Total 2310 ml Output Total 850 ml Balance 1460 ml Weight (Pounds): 218 Weight (Ounces): 0.0 Weight (Calculated Kilograms): 98.517140 Constitutional: well-developed, well-nourished, other (intubated and sedated) Respiratory: No accessory muscle use, No respiratory distress; chest expansion is symmetric, other (fair air entry; intubated) Cardiovascular: irregularly irregular; No JVD; S1 and S2 Gastrointestional: audible bowel sounds Extremities: other (mod bilat LE swelling) Neurologic/Psychiatric: other (intubated/ventilated) Skin: warm/dry Results/Procedures: Labs Laboratory Tests 09/24/19 11:54: Glucometer 283H 09/24/19 17:29: Glucometer 279H 09/25/19 00:18: Glucometer 272H 09/25/19 03:40: White Blood Count 14.0H, Red Blood Count 3.65L, Hemoglobin 11.7, Hematocrit 36, Mean Corpuscular Volume 98, Mean Corpuscular Hemoglobin 32, Mean Corpuscular Hemoglobin Concent 33, Red Cell Distribution Width 15.4H, Platelet Count 241, Mean Platelet Volume 10.9H, Neutrophils (%) (Auto) 95H, Lymphocytes (%) (Auto) 2L, Monocytes (%) (Auto) 2, Eosinophils (%) (Auto) 0, Basophils (%) (Auto) 0, Neutrophils # (Auto) 13.4H, Lymphocytes # (Auto) 0.3L, Monocytes # (Auto) 0.3, Eosinophils # (Auto) 0.0, Basophils # (Auto) 0.0, Neutrophils % (Manual) 96, Lymphocytes % (Manual) 3, Monocytes % (Manual) 1, Blood Gas Puncture Site RIGHT RADIAL, Blood Gas Patient Temperature 35.7, Arterial Blood pH 7.37, Arterial Blood Partial Pressure CO2 44, Arterial Blood Partial Pressure O2 79, Arterial Blood HCO3 26, Arterial Blood Total CO2 27.1, Arterial Blood Oxygen Saturation 95, Arterial Blood Base Excess 0.8, Jame Test POSITIVE, Blood Gas Ventilator Setting YES, Blood Gas Inspired Oxygen 75%, Sodium Level 139, Potassium Level 4.4, Chloride Level 105, Carbon Dioxide Level 23, Anion Gap 11, Blood Urea Nitrogen 54H, Creatinine 1.81H, Estimat Glomerular Filtration Rate 29, BUN/Creatinine Ratio 30, Glucose Level 229H, Calcium Level 8.9, Phosphorus Level 4.4, Magnesium Level 2.6H 09/25/19 06:48: Glucometer 200H Microbiology 09/20/19 Mycobacterial Culture - Preliminary, Resulted 09/19/19 Blood Culture - Final, Complete Staphylococcus epidermidis Staphylococcus hominis A/P: Assessment/Dx: Acute resp failure, likely due to COPD exacerbated by aspiration pneumonia Acute renal failure, likely ATN due to hypotension due to sepsis Hyperkalemia/hypermag likely secondary to renal failure PAF/flutter, currently NSR Hypotension due to sepsis and propofol (post-intubation) Elevated troponin - likely type 2 [place] d/t hypoxia Card cath of 09/07/18: minimal CAD, LVEF 70-75%, elevated LVEDP Echo of 09/20/19: LVEF 50-55%, RVSP 35 mmHg H/o opiate addiction ETOH abuse Chronic tobacco use Fam h/o early CAD Hyperlipidemia Borderline DM II (fasting blood glucose on 09/07/18) Carotid u/s on 01/05/19: no significant dz Plan: Plan: * Prognosis guarded * D/c dig, continue amiodarone via NGT * Monitor lab closely * Start blood pressure medication amlodipine 5 mg via OG tube. Thank you for your consultation. Please call me if you have any questions. Taz Velazco MD, FACP, FACC, FSCAI, FHRS, CCDS Interventional Cardiology Cardiac Electrophysiology Vascular Medicine and Endovascular Interventions Graciela VELAZCO MD Sep 25, 2019 11:16
[2019-09-25] MEDS: FAMOTIDINE 20 MG (PEPCID) TABLET GT SCH (20:06)
[2019-09-25] MEDS: DILTIAZEM 125 MG/NS 100 ML IV SCH ×2 (22:56)
[2019-09-25] MEDS: MIDAZOLAM DRIP 50 MG/NS 90 ML IV SCH ×2 (23:00)
[2019-09-25] MEDS: fentaNYL 1,250 MCG/NS 250 ML DRIP IV SCH ×2 (23:00)
[2019-09-26] VITALS (30 sets, daily range): BP systolic 108–164; BP diastolic 61–82
[2019-09-26] MEDS: inSUlin ASPART (NovoLOG) 1 UNIT/0.01 ML (CHARGE PER UNIT) SC SCH ×4 (00:48→17:55)
[2019-09-26] MEDS: PIPERACILLIN/TAZOBACTAM (BULK) 4.5 GM in NS (IVPB) 100 ML IV SCH ×3 (00:53→16:23)
[2019-09-26 01:45] LABS: ABG BASE EXCESS 3.7 MMOL/L (-2.5-2.5); ABG OXYGEN SATURATION 90 % (94-100); ABG PCO2 46 MMHG (35-45); ABG PO2 63 MMHG (79-93); ABG TCO2 29.7 MMOL/L (21.0-31.0)
[2019-09-26 01:47] LABS: ALLENS TEST POSITIVE; INSPIRED O2 80%; PATIENT TEMP 36.5; VENTILATOR YES
[2019-09-26] MEDS ORDERED: NS (IVPB) 50 ML ONE (01:53)
[2019-09-26] MEDS: DEXMEDETOMIDINE 1,000 MCG/NS 250 ML IV SCH ×10 (02:02→22:26)
[2019-09-26] MEDS: RT-ALBUTEROL/IPRATROPIUM 3 ML (DUONEB) VIAL INH SCH ×6 (02:42→21:26)
[2019-09-26 03:12] LABS: BASOPHILS % (AUTO) 0 % (0-10); EOSINOPHILS # (AUTO) 0.1 10^3/uL (0.0-0.3); EOSINOPHILS % (AUTO) 0 % (0-10); HEMATOCRIT 37 % (35-52); LYMPHOCYTES # (AUTO) 0.6 X 10^3 (1.0-4.0); LYMPHOCYTES % (AUTO) 4 % (12-44); MEAN CORPUSCULAR HEMOGLOBIN 32 PG (25-34); MEAN CORPUSCULAR HGB CONC 32 G/DL (32-36); MEAN CORPUSCULAR VOLUME 98 FL (80-99); MEAN PLATELET VOLUME 10.3 FL (7.4-10.4); MONOCYTES # (AUTO) 0.3 X 10^3 (0.0-1.0); MONOCYTES % (AUTO) 2 % (0-12); NEUTROPHILS # (AUTO) 15.5 X 10^3 (1.8-7.8); NEUTROPHILS % (AUTO) 94 % (42-75); PLATELET COUNT 248 10^3/uL (130-400); RED CELL DISTRIBUTION WIDTH 15.9 % (10.0-14.5); WHITE BLOOD COUNT 16.5 10^3/uL (4.3-11.0)
[2019-09-26 03:28] LABS: CALCIUM 8.8 MG/DL (8.5-10.1); CREATININE SERUM 1.79 MG/DL (0.60-1.30); MAGNESIUM 2.1 MG/DL (1.6-2.4); PHOSPHORUS 4.6 MG/DL (2.3-4.7); POTASSIUM 3.8 MMOL/L (3.6-5.0)
[2019-09-26 05:56] LABS: BASOPHILS % (AUTO) 0 % (0-10); EOSINOPHILS # (AUTO) 0.1 10^3/uL (0.0-0.3); EOSINOPHILS % (AUTO) 0 % (0-10); HEMATOCRIT 36 % (35-52); HEMOGLOBIN 11.6 G/DL (11.5-16.0); LYMPHOCYTES # (AUTO) 0.7 X 10^3 (1.0-4.0); LYMPHOCYTES % (AUTO) 4 % (12-44); MEAN CORPUSCULAR HEMOGLOBIN 32 PG (25-34); MEAN CORPUSCULAR HGB CONC 33 G/DL (32-36); MEAN CORPUSCULAR VOLUME 97 FL (80-99); MEAN PLATELET VOLUME 10.2 FL (7.4-10.4); MONOCYTES # (AUTO) 0.3 X 10^3 (0.0-1.0); MONOCYTES % (AUTO) 2 % (0-12); NEUTROPHILS # (AUTO) 14.9 X 10^3 (1.8-7.8); NEUTROPHILS % (AUTO) 93 % (42-75); PLATELET COUNT 228 10^3/uL (130-400); RED CELL DISTRIBUTION WIDTH 15.8 % (10.0-14.5); WHITE BLOOD COUNT 15.9 10^3/uL (4.3-11.0)
[2019-09-26] MEDS: POTASSIUM CL 10MEQ/50ML IVPB 50 ML IV SCH (06:26)
[2019-09-26] MEDS: MAGNESIUM 1 GM/100 ML IVPB 100 ML IV SCH (06:26)
[2019-09-26] MEDS: KCL 20 MEQ TAB (K-DUR) PO SCH (06:26)
[2019-09-26] MEDS ORDERED: VANCOMYCIN INJECTION 0.1 MG in NS (IVPB) 250 ML IV SCH (06:30)
[2019-09-26] MEDS: ENOXAPARIN 100 MG/1 ML (LOVENOX) SYR SC SCH ×2 (06:35→17:48)
[2019-09-26 06:47] LABS: EOSINOPHILS % (MANUAL) 2 %; LYMPHOCYTES % (MANUAL) 2 %; MONOCYTES % (MANUAL) 3 %; NEUTROPHILS % (MANUAL) 93 %
[2019-09-26] MEDS ORDERED: VANCOMYCIN INJECTION 2,250 MG in NS IV 500 ML 500 ML IV NR (07:00)
--- NOTE | 2019-09-26 07:09 | NUR ---
VANCOMYCIN DOSING SCR 1.79; CRCL ~ 44; BOLUS VANC 20 MG/KG X 114 KG ~ 2250 MG THEN VANC 15 MG/KG ~ 1750 MG Q24H CHECK TROUGH 09/28 0600 HOLD DOSE AND CONTACT PHARMACY IF LEVEL IS GREATER THAN 20
[2019-09-26] MEDS: BUMETANIDE 1 MG/4 ML (BUMEX) VIAL IV SCH ×2 (07:36→20:18)
[2019-09-26] MEDS: AMIODARONE 200 MG (CORDARONE) TAB NG SCH ×2 (07:36→20:18)
[2019-09-26] MEDS: CALCIUM ACETATE 667 MG CAP (PHOSLO) PO SCH ×3 (07:36→17:48)
--- NOTE | 2019-09-26 07:59 | Diagnostic Imaging Report ---
INDICATION: Septic shock, pneumonia. COMPARISON: 09/25/2019 TECHNIQUE: Frontal view of the chest. FINDINGS: Airspace opacities in the lung bases appear increased, right greater than left. The cardiac silhouette is stable in size. The right-sided jugular line tip projects over the low SVC. The endotracheal tube appears to be in stable position. The enteric tube is not well seen distally. No significant pleural effusion is seen. IMPRESSION: 1. Airspace opacities in the lung bases, mildly increased since the prior study. Dictated by: Dictated on workstation # [id number]
--- NOTE | 2019-09-26 08:05 | Physical Therapy Progress Note ---
Therapy Progress Note Patient is currently sedated and intubated. PT will continue to monitor patient medical status and begin when medically stable and able to actively participate with skilled therapy. MERVIN PETERSON PT Sep 26, 2019 08:05
--- NOTE | 2019-09-26 08:27 | Occ Therapy Progress Note ---
Therapy Progress Note OT monitoring pt. Pt. continues on ventilator support and with sedation. Please send new orders when pt. is medically stable and ready for skilled OT treatment. [id number] YURI JOHNSON OT Sep 26, 2019 08:27
--- NOTE | 2019-09-26 10:30 | NUR ---
Pastoral care visit.
[2019-09-26 11:00] LABS: BILIRUBIN,URINE NEGATIVE (NEGATIVE); CLARITY,URINE CLEAR; COLOR,URINE YELLOW; GLUCOSE, URINE (UA) NEGATIVE (NEGATIVE); KETONES,URINE NEGATIVE (NEGATIVE); LEUKOCYTE ESTERASE ,URINE NEGATIVE (NEGATIVE); NITRITE,URINE NEGATIVE (NEGATIVE); PH,URINE 5.5 (5-9); PROTEIN,URINE NEGATIVE (NEGATIVE)
[2019-09-26 11:07] LABS: BACTERIA,URINE NEGATIVE /HPF
[2019-09-26 11:08] LABS: YEAST,URINE MODERATE /HPF
--- NOTE | 2019-09-26 20:08 | Cardiology Progress Note ---
Cardiology SOAP Progress Note Subjective: Intubated/ventilated Objective: I&O/Vital Signs 09/26/19 09/26/19 09/26/19 09/26/19 09:00 10:00 10:21 10:51 Pulse 92 89 100 99 Resp 29 28 B/P (MAP) 134/65 (88) 135/64 (87) Pulse Ox 93 94 94 O2 Delivery Mechanical Ventilator Mechanical Ventilator O2 Flow Rate 75.00 75.00 FiO2 65 09/26/19 09/26/19 09/26/19 09/26/19 10:55 11:00 11:29 12:00 Temp 36.8 Pulse 98 91 Resp B/P (MAP) 135/70 (91) 128/65 (86) Pulse Ox 93 92 O2 Delivery Mechanical Ventilator Mechanical Ventilator Mechanical Ventilator O2 Flow Rate 65.00 65.00 65.00 09/26/19 09/26/19 09/26/19 09/26/19 12:00 12:41 12:49 13:00 Pulse 91 91 90 Resp B/P (MAP) 135/66 (89) Pulse Ox 96 94 O2 Delivery Mechanical Ventilator Mechanical Ventilator O2 Flow Rate 65.00 FiO2 65 09/26/19 09/26/19 09/26/19 09/26/19 14:00 14:52 14:59 15:00 Pulse 87 90 90 90 Resp B/P (MAP) 135/63 (87) 125/61 (82) Pulse Ox 94 92 92 O2 Delivery Mechanical Ventilator Mechanical Ventilator O2 Flow Rate 65.00 65.00 FiO2 65 09/26/19 09/26/19 09/26/19 09/26/19 15:45 16:00 17:00 17:48 Temp 37.1 Pulse 98 90 98 Resp B/P (MAP) 145/73 (97) 133/65 (87) Pulse Ox 92 91 O2 Delivery Mechanical Ventilator Mechanical Ventilator O2 Flow Rate 65.00 65.00 09/26/19 09/26/19 18:00 18:32 Pulse 96 91 Resp B/P (MAP) 145/73 (97) Pulse Ox 92 92 O2 Delivery Mechanical Ventilator O2 Flow Rate 65.00 FiO2 65 09/26/19 00:00 Intake Total 890 ml Output Total 2750 ml Balance -1860 ml Weight (Pounds): 218 Weight (Ounces): 0.0 Weight (Calculated Kilograms): 98.899136 Constitutional: well-developed, well-nourished, other (intubated and sedated) Respiratory: No accessory muscle use, No respiratory distress; chest expansion is symmetric, other (fair air entry; intubated) Cardiovascular: regular rate-rhythm; No JVD; S1 and S2 Gastrointestional: audible bowel sounds Extremities: other (mod bilat LE swelling) Neurologic/Psychiatric: other (intubated/ventilated) Skin: warm/dry Results/Procedures: Labs Laboratory Tests 09/26/19 00:45: Glucometer 133H 09/26/19 01:40: Blood Gas Puncture Site RIGHT RADIAL, Blood Gas Patient Temperature 36.5, Arterial Blood pH 7.40, Arterial Blood Partial Pressure CO2 46H, Arterial Blood Partial Pressure O2 63L, Arterial Blood HCO3 28H, Arterial Blood Total CO2 29.7, Arterial Blood Oxygen Saturation 90L, Arterial Blood Base Excess 3.7H, Jame Test POSITIVE, Blood Gas Ventilator Setting YES, Blood Gas Inspired Oxygen 80% 09/26/19 03:02: White Blood Count 16.5H, Red Blood Count 3.79L, Hemoglobin 12.0, Hematocrit 37, Mean Corpuscular Volume 98, Mean Corpuscular Hemoglobin 32, Mean Corpuscular Hemoglobin Concent 32, Red Cell Distribution Width 15.9H, Platelet Count 248, Mean Platelet Volume 10.3, Neutrophils (%) (Auto) 94H, Lymphocytes (%) (Auto) 4L , Monocytes (%) (Auto) 2, Eosinophils (%) (Auto) 0, Basophils (%) (Auto) 0, Neutrophils # (Auto) 15.5H, Lymphocytes # (Auto) 0.6L, Monocytes # (Auto) 0.3, Eosinophils # (Auto) 0.1, Basophils # (Auto) 0.0, Sodium Level 142, Potassium Level 3.8, Chloride Level 105, Carbon Dioxide Level 25, Anion Gap 12, Blood Urea Nitrogen 54H, Creatinine 1.79H, Estimat Glomerular Filtration Rate 30, BUN/Creatinine Ratio 30, Glucose Level 132H, Calcium Level 8.8, Phosphorus Level 4.6, Magnesium Level 2.1 09/26/19 05:45: White Blood Count 15.9H, Red Blood Count 3.66L, Hemoglobin 11.6, Hematocrit 36, Mean Corpuscular Volume 97, Mean Corpuscular Hemoglobin 32, Mean Corpuscular Hemoglobin Concent 33, Red Cell Distribution Width 15.8H, Platelet Count 228, Mean Platelet Volume 10.2, Neutrophils (%) (Auto) 93H, Lymphocytes (%) (Auto) 4L , Monocytes (%) (Auto) 2, Eosinophils (%) (Auto) 0, Basophils (%) (Auto) 0, Neutrophils # (Auto) 14.9H, Lymphocytes # (Auto) 0.7L, Monocytes # (Auto) 0.3, Eosinophils # (Auto) 0.1, Basophils # (Auto) 0.0, Neutrophils % (Manual) 93, Lymphocytes % (Manual) 2, Monocytes % (Manual) 3, Eosinophils % (Manual) 2, Lactic Acid Level 0.92 09/26/19 09:55: Urine Color YELLOW, Urine Clarity CLEAR, Urine pH 5.5, Urine Specific [place] 1.020, Urine Protein NEGATIVE, Urine Glucose (UA) NEGATIVE, Urine Ketones NEGATIVE, Urine Nitrite NEGATIVE, Urine Bilirubin NEGATIVE, Urine Urobilinogen 0.2, Urine Leukocyte Esterase NEGATIVE, Urine RBC (Auto) NEGATIVE, Urine RBC 2- 5H, Urine WBC NONE, Urine Squamous Epithelial Cells NONE, Urine Crystals NONE, Urine Bacteria NEGATIVE, Urine Casts NONE, Urine Mucus NEGATIVE, Urine Yeast MODERATEH, Urine Culture Indicated NO 09/26/19 11:29: Glucometer 123H 09/26/19 17:52: Glucometer 133H Microbiology 09/20/19 Mycobacterial Culture - Preliminary, Resulted 09/19/19 Blood Culture - Final, Complete Staphylococcus epidermidis Staphylococcus hominis A/P: Assessment/Dx: Acute resp failure, likely due to COPD exacerbated by aspiration pneumonia Acute renal failure, likely ATN due to hypotension due to sepsis Hyperkalemia/hypermag likely secondary to renal failure PAF/flutter, currently NSR Hypotension due to sepsis and propofol (post-intubation) Elevated troponin - likely type 2 [place] d/t hypoxia Card cath of 09/07/18: minimal CAD, LVEF 70-75%, elevated LVEDP Echo of 09/20/19: LVEF 50-55%, RVSP 35 mmHg H/o opiate addiction ETOH abuse Chronic tobacco use Fam h/o early CAD Hyperlipidemia Borderline DM II (fasting blood glucose on 09/07/18) Carotid u/s on 01/05/19: no significant dz Plan: Plan: * Prognosis guarded * D/c dig, continue amiodarone via NGT * Monitor lab closely * Start blood pressure medication amlodipine 5 mg via OG tube. Thank you for your consultation. Please call me if you have any questions. Taz Velazco MD, FACP, FACC, FSCAI, FHRS, CCDS Interventional Cardiology Cardiac Electrophysiology Vascular Medicine and Endovascular Interventions Focused Exam Lactate Level 09/26/19 05:45: Lactic Acid Level 0.92 Graciela VELAZCO MD Sep 26, 2019 20:07
[2019-09-26] MEDS: FAMOTIDINE 20 MG (PEPCID) TABLET GT SCH (20:18)
[2019-09-26] MEDS: fentaNYL 1,250 MCG/NS 250 ML DRIP IV SCH ×2 (23:35)
[2019-09-26] MEDS: MIDAZOLAM DRIP 50 MG/NS 90 ML IV SCH ×2 (23:35)
[2019-09-26] MEDS: DILTIAZEM 125 MG/NS 100 ML IV SCH ×2 (23:35)
[2019-09-27] VITALS (31 sets, daily range): BP systolic 128–166; BP diastolic 61–83
[2019-09-27] MEDS: PIPERACILLIN/TAZOBACTAM (BULK) 4.5 GM in NS (IVPB) 100 ML IV SCH (00:29)
[2019-09-27] MEDS: inSUlin ASPART (NovoLOG) 1 UNIT/0.01 ML (CHARGE PER UNIT) SC SCH ×4 (00:30→17:20)
[2019-09-27] MEDS: RT-ALBUTEROL/IPRATROPIUM 3 ML (DUONEB) VIAL INH SCH ×6 (01:37→21:16)
[2019-09-27 03:31] LABS: ABG BASE EXCESS 4.2 MMOL/L (-2.5-2.5); ABG OXYGEN SATURATION 91 % (94-100); ABG PCO2 47 MMHG (35-45); ABG PO2 68 MMHG (79-93); ABG TCO2 30.2 MMOL/L (21.0-31.0); BASOPHILS % (AUTO) 0 % (0-10); EOSINOPHILS # (AUTO) 0.1 10^3/uL (0.0-0.3); EOSINOPHILS % (AUTO) 1 % (0-10); HEMATOCRIT 33 % (35-52); HEMOGLOBIN 10.9 G/DL (11.5-16.0); LYMPHOCYTES % (AUTO) 7 % (12-44); MEAN CORPUSCULAR HEMOGLOBIN 32 PG (25-34); MEAN CORPUSCULAR HGB CONC 33 G/DL (32-36); MEAN CORPUSCULAR VOLUME 98 FL (80-99); MEAN PLATELET VOLUME 10.3 FL (7.4-10.4); MONOCYTES # (AUTO) 0.4 X 10^3 (0.0-1.0); MONOCYTES % (AUTO) 2 % (0-12); NEUTROPHILS # (AUTO) 13.5 X 10^3 (1.8-7.8); NEUTROPHILS % (AUTO) 90 % (42-75); PLATELET COUNT 195 10^3/uL (130-400); RED CELL DISTRIBUTION WIDTH 15.8 % (10.0-14.5); WHITE BLOOD COUNT 14.9 10^3/uL (4.3-11.0)
[2019-09-27 03:41] LABS: ALLENS TEST POSITIVE; INSPIRED O2 60%; PATIENT TEMP 36.7; VENTILATOR YES
[2019-09-27 03:49] LABS: CREATININE SERUM 1.64 MG/DL (0.60-1.30); MAGNESIUM 2.1 MG/DL (1.6-2.4); PHOSPHORUS 4.2 MG/DL (2.3-4.7); POTASSIUM 3.6 MMOL/L (3.6-5.0)
[2019-09-27] MEDS: DEXMEDETOMIDINE 1,000 MCG/NS 250 ML IV SCH ×6 (05:28→23:00)
[2019-09-27] MEDS: ENOXAPARIN 100 MG/1 ML (LOVENOX) SYR SC SCH ×2 (06:42→17:20)
[2019-09-27] MEDS: KCL 20 MEQ TAB (K-DUR) PO SCH (06:51)
[2019-09-27] MEDS: POTASSIUM CL 10MEQ/50ML IVPB 50 ML IV SCH (06:51)
[2019-09-27] MEDS: MAGNESIUM 1 GM/100 ML IVPB 100 ML IV SCH ×3 (06:51→23:30)
--- NOTE | 2019-09-27 07:32 | Physical Therapy Progress Note ---
Therapy Progress Note Patient remains sedated and intubated. PT will continue to monitor patient's status. MERVIN PETERSON PT Sep 27, 2019 07:32
[2019-09-27] MEDS: CALCIUM ACETATE 667 MG CAP (PHOSLO) PO SCH ×3 (07:43→17:20)
[2019-09-27] MEDS: BUMETANIDE 1 MG/4 ML (BUMEX) VIAL IV SCH ×2 (07:43→22:35)
[2019-09-27] MEDS: AMIODARONE 200 MG (CORDARONE) TAB NG SCH ×2 (07:43→22:37)
[2019-09-27] MEDS: VANCOMYCIN 1,750 MG/NS 500 ML IVPB IV SCH ×2 (07:44)
--- NOTE | 2019-09-27 09:19 | Diagnostic Imaging Report ---
INDICATION: Pneumonia, septic shock COMPARISON: 09/26/2019 FINDINGS: Single view chest demonstrates cardiac enlargement with stable central vascular congestion. Small effusions are present bilaterally left greater than right. There is no pneumothorax. Support lines are stable. IMPRESSION: 1. Stable cardiac enlargement with central vascular congestion. 2. Stable small effusions. 3. Well positioned support lines. Dictated by: Dictated on workstation # [id number]
--- NOTE | 2019-09-27 09:23 | Progress Note - Hospitalist ---
Subjective HPI/CC On Admission Date Seen by Provider: Sep 27, 2019 Time Seen by Provider: 09:30 Helene is a 54 y/o female that presented to via [facility] due to altered mental status. The following information was obtained from ER chart. Patient is currently intubated and sedated and has no family at the bedside at this time. She was brought in via EMS and was reportedly found at home after two days of no contact. She was unresponsive and was sitting in urine. There is concern of alcohol and narcotic use. She currently smokes 3 packs of cigarettes a day. She arrived to the ER with a fever and was hypoxic. The patient is requiring intubation and FiO2 of 100%. She received both chest CT and X-ray. Chest CT is showing extensive airspace consolidation with the right middle lobe, right lower lobe, left lower lobe possibly related to aspiration, pneumonia, or other alveolar consolidative processes.Chest X-ray showed nonspecific bibasilar airspace consolidation with probable bilateral pleural effusions. Subjective/Events-last exam Patient remains on vent [facility] declined the patient transfer Reviewed case Poor prognosis Focused Exam Lactate Level 09/26/19 05:45: Lactic Acid Level 0.92 Objective Exam Vital Signs Vital Signs Date Time Temp Pulse Resp B/P (MAP) Pulse Ox O2 Delivery O2 Flow Rate FiO2 09/27/19 12:44 91 09/27/19 12:00 27 154/74 (100) 94 Mechanical Ventilator 60.00 09/27/19 12:00 60 09/27/19 07:45 36.6 Capillary Refill : Less Than 3 Seconds General Appearance: No Apparent Distress, WD/WN, Chronically ill, Other (sedated, intubated) Respiratory: Decreased Breath Sounds, Other (on vent) Results/Procedures Lab Laboratory Tests 09/27/19 03:23 Patient resulted labs reviewed. Imaging: Reviewed Imaging Report Assessment/Plan Assessment and Plan Assess & Plan/Chief Complaint Assessment: VDRF s/p Septic Shock with Pseudomonas on Cx on Zosyn Acute on Chronic Respiratory failure with ARDS COPD acute exacerbation AFIB/Flutter with RVR RLE DVT GIOVANNI Alcohol abuse Hyperglycemia Plan: [facility] declined to take the patient VDRF remains Poor prognosis Critical Care Critically Ill Patient Diagnosis/Problems Diagnosis/Problems (1) ARDS (adult respiratory distress syndrome) (2) Atrial fibrillation with rapid ventricular response Status: Acute (3) Bilateral pneumonia Status: Acute Qualifiers: Pneumonia type: due to unspecified organism Lung location: lower lobe of lung Qualified Codes: J18.1 - Lobar pneumonia, unspecified organism (4) Septic shock Status: Acute (5) Acute respiratory failure Status: Acute Qualifiers: Respiratory failure complication: hypoxia Qualified Codes: J96.01 - Acute respiratory failure with hypoxia (6) Alcohol use Status: Acute Clinical Quality Measures DVT/VTE Risk/Contraindication: Risk Factor Score Per Nursin RFS Level Per Nursing on Admit: 4+=Very High TAL YANEZ DO Sep 27, 2019 09:23
--- NOTE | 2019-09-27 13:37 | NUR ---
PTD VANCOMYCIN LABS: SCr 1.64, CrCl 49.3, VANCOMYCIN LEVEL 13 09/27 @1100 PRIOR TO THIRD DOSE PLAN: CONTINUE CURRENT DOSE OF VANCOMYCIN, CONTINUE TO MONITOR RENAL FUNCTION AND ADJUST DOSE IF RENAL FUNCTION CHANGES Addendum: 09/27/19 at 1339 by BALBINA MCCALL [facility] ENTERED ON WRONG PATIENT
--- NOTE | 2019-09-27 15:36 | Cardiology Progress Note ---
Cardiology SOAP Progress Note Subjective: Intubated/ventilated Objective: I&O/Vital Signs 09/27/19 09/27/19 09/27/19 09/27/19 03:39 03:58 04:00 04:00 Temp 36.7 Pulse 99 Resp B/P (MAP) 155/78 128/63 (84) Pulse Ox 91 91 O2 Delivery Mechanical Ventilator Mechanical Ventilator O2 Flow Rate 60.00 FiO2 60 09/27/19 09/27/19 09/27/19 09/27/19 05:00 06:00 06:56 07:00 Pulse 90 89 90 90 Resp 28 24 B/P (MAP) 141/72 (95) 154/75 (101) 148/74 (98) Pulse Ox 92 94 91 92 O2 Delivery Mechanical Ventilator Mechanical Ventilator Mechanical Ventilator O2 Flow Rate 60.00 60.00 60.00 FiO2 60 09/27/19 09/27/19 09/27/19 09/27/19 07:43 07:45 07:51 08:00 Temp 36.6 Pulse 98 88 97 Resp B/P (MAP) 160/82 (108) Pulse Ox 92 O2 Delivery Mechanical Ventilator O2 Flow Rate 60.00 09/27/19 09/27/19 09/27/19 09/27/19 08:00 09:00 10:00 11:00 Pulse 90 87 85 Resp 28 B/P (MAP) 161/80 (107) 156/74 (101) 154/75 (101) Pulse Ox 91 92 94 94 O2 Delivery Mechanical Ventilator Mechanical Ventilator Mechanical Ventilator Mechanical Ventilator O2 Flow Rate 60.00 60.00 60.00 FiO2 60 09/27/19 09/27/19 09/27/19 09/27/19 11:03 11:30 12:00 12:00 Temp 36.4 Pulse 85 89 Resp 27 B/P (MAP) 154/74 (100) Pulse Ox 94 91 94 O2 Delivery Mechanical Ventilator Mechanical Ventilator O2 Flow Rate 60.00 FiO2 60 60 09/27/19 09/27/19 09/27/19 09/27/19 12:44 13:00 13:00 14:00 Pulse 91 90 90 87 Resp B/P (MAP) 153/77 (102) 159/80 (106) Pulse Ox 94 94 O2 Delivery Mechanical Ventilator Mechanical Ventilator O2 Flow Rate 50.00 50.00 09/27/19 09/27/19 14:17 15:00 Pulse 89 86 Resp 28 28 B/P (MAP) 160/78 (105) Pulse Ox 95 94 O2 Delivery Mechanical Ventilator O2 Flow Rate 50.00 FiO2 60 09/27/19 00:00 Intake Total 1360 ml Output Total 1500 ml Balance -140 ml Weight (Pounds): 218 Weight (Ounces): 0.0 Weight (Calculated Kilograms): 98.464306 Constitutional: well-developed, well-nourished, other (intubated and sedated) Respiratory: No accessory muscle use, No respiratory distress; chest expansion is symmetric, other (fair air entry; intubated) Cardiovascular: regular rate-rhythm; No JVD; S1 and S2 Gastrointestional: audible bowel sounds Extremities: other (mod bilat LE swelling) Neurologic/Psychiatric: other (intubated/ventilated) Skin: warm/dry Results/Procedures: Labs Laboratory Tests 09/26/19 17:52: Glucometer 133H 09/27/19 00:21: Glucometer 100 09/27/19 03:23: White Blood Count 14.9H, Red Blood Count 3.40L, Hemoglobin 10.9L, Hematocrit 33L , Mean Corpuscular Volume 98, Mean Corpuscular Hemoglobin 32, Mean Corpuscular Hemoglobin Concent 33, Red Cell Distribution Width 15.8H, Platelet Count 195, Mean Platelet Volume 10.3, Neutrophils (%) (Auto) 90H, Lymphocytes (%) (Auto) 7L , Monocytes (%) (Auto) 2, Eosinophils (%) (Auto) 1, Basophils (%) (Auto) 0, Neutrophils # (Auto) 13.5H, Lymphocytes # (Auto) 1.0, Monocytes # (Auto) 0.4, Eosinophils # (Auto) 0.1, Basophils # (Auto) 0.0, Blood Gas Puncture Site RIGHT RADIAL, Blood Gas Patient Temperature 36.7, Arterial Blood pH 7.40, Arterial Blood Partial Pressure CO2 47H, Arterial Blood Partial Pressure O2 68L, Arterial Blood HCO3 29H, Arterial Blood Total CO2 30.2, Arterial Blood Oxygen Saturation 91L, Arterial Blood Base Excess 4.2H, Jame Test POSITIVE, Blood Gas Ventilator Setting YES, Blood Gas Inspired Oxygen 60%, Sodium Level 142, Potassium Level 3.6, Chloride Level 105, Carbon Dioxide Level 25, Anion Gap 12, Blood Urea Nitrogen 47H, Creatinine 1.64H, Estimat Glomerular Filtration Rate 33, BUN/Creatinine Ratio 29, Glucose Level 80, Calcium Level 9.0, Phosphorus Level 4.2, Magnesium Level 2.1 09/27/19 11:35: Glucometer 74 Microbiology 09/26/19 Blood Culture - Preliminary, Resulted No growth 09/20/19 Mycobacterial Culture - Preliminary, Resulted A/P: Assessment/Dx: Acute resp failure, likely due to COPD exacerbated by aspiration pneumonia Acute renal failure, likely ATN due to hypotension due to sepsis Hyperkalemia/hypermag likely secondary to renal failure PAF/flutter, currently NSR Hypotension due to sepsis and propofol (post-intubation) Elevated troponin - likely type 2 [place] d/t hypoxia Card cath of 09/07/18: minimal CAD, LVEF 70-75%, elevated LVEDP Echo of 09/20/19: LVEF 50-55%, RVSP 35 mmHg H/o opiate addiction ETOH abuse Chronic tobacco use Fam h/o early CAD Hyperlipidemia Borderline DM II (fasting blood glucose on 09/07/18) Carotid u/s on 01/05/19: no significant dz Plan: Plan: * Prognosis guarded * D/c dig, continue amiodarone via NGT * Monitor lab closely * Start blood pressure medication amlodipine 5 mg via OG tube. Thank you for your consultation. Please call me if you have any questions. Taz Velazco MD, FACP, FACC, FSCAI, FHRS, CCDS Interventional Cardiology Cardiac Electrophysiology Vascular Medicine and Endovascular Interventions Focused Exam Lactate Level 09/26/19 05:45: Lactic Acid Level 0.92 Graciela VELAZCO MD Sep 27, 2019 15:36
[2019-09-27] MEDS ORDERED: fentaNYL INJECTION 100 MCG/2 ML AMP ONE (17:13)
[2019-09-27] MEDS: fentaNYL INJECTION 100 MCG/2 ML AMP IVP PRN ×3 (17:19→22:36)
--- NOTE | 2019-09-27 20:28 | NUR ---
This RN called [facility] pt has 1mg Bumex due at 2100. Morning labs showed decrease in potassium. New orders received at this time for stat BMP and magnesium labs to be drawn.
[2019-09-27 21:37] LABS: CALCIUM 8.8 MG/DL (8.5-10.1); CREATININE SERUM 1.57 MG/DL (0.60-1.30); MAGNESIUM 1.9 MG/DL (1.6-2.4); POTASSIUM 3.5 MMOL/L (3.6-5.0)
[2019-09-27] MEDS ORDERED: KCL 20 MEQ POWDER FOR ORAL SOLUTION ONE (22:20)
[2019-09-27] MEDS ORDERED: KCL 20 MEQ POWDER FOR ORAL SOLUTION PO ONE (22:30)
[2019-09-27] MEDS: FAMOTIDINE 20 MG (PEPCID) TABLET GT SCH (22:37)
[2019-09-27] MEDS: fentaNYL 1,250 MCG/NS 250 ML DRIP IV SCH ×2 (23:07)
[2019-09-27] MEDS: DILTIAZEM 125 MG/NS 100 ML IV SCH ×2 (23:07)
[2019-09-27] MEDS: MIDAZOLAM DRIP 50 MG/NS 90 ML IV SCH ×2 (23:08)
[2019-09-28] VITALS (31 sets, daily range): BP systolic 132–194; BP diastolic 65–103
[2019-09-28] MEDS: inSUlin ASPART (NovoLOG) 1 UNIT/0.01 ML (CHARGE PER UNIT) SC SCH ×4 (00:40→18:12)
[2019-09-28] MEDS: RT-ALBUTEROL/IPRATROPIUM 3 ML (DUONEB) VIAL INH SCH ×6 (01:44→22:29)
[2019-09-28 02:25] LABS: ABG BASE EXCESS 4.7 MMOL/L (-2.5-2.5); ABG OXYGEN SATURATION 92 % (94-100); ABG PCO2 46 MMHG (35-45); ABG PH 7.41 (7.37-7.43); ABG PO2 68 MMHG (79-93); ABG TCO2 30.6 MMOL/L (21.0-31.0); ALLENS TEST POSITIVE; PATIENT TEMP 36.5; VENTILATOR YES
--- NOTE | 2019-09-28 03:00 | NUR ---
This RN called EICU to report audible adventitious breath sounds, Dr. Mc on bedside camera to assess. New orders received at this time.
[2019-09-28 03:17] LABS: BASOPHILS % (AUTO) 0 % (0-10); EOSINOPHILS # (AUTO) 0.1 10^3/uL (0.0-0.3); EOSINOPHILS % (AUTO) 1 % (0-10); HEMATOCRIT 34 % (35-52); HEMOGLOBIN 10.9 G/DL (11.5-16.0); LYMPHOCYTES # (AUTO) 0.9 X 10^3 (1.0-4.0); LYMPHOCYTES % (AUTO) 8 % (12-44); MEAN CORPUSCULAR HEMOGLOBIN 31 PG (25-34); MEAN CORPUSCULAR HGB CONC 32 G/DL (32-36); MEAN CORPUSCULAR VOLUME 98 FL (80-99); MEAN PLATELET VOLUME 10.4 FL (7.4-10.4); MONOCYTES # (AUTO) 0.4 X 10^3 (0.0-1.0); MONOCYTES % (AUTO) 3 % (0-12); NEUTROPHILS # (AUTO) 10.4 X 10^3 (1.8-7.8); NEUTROPHILS % (AUTO) 88 % (42-75); PLATELET COUNT 266 10^3/uL (130-400); RED CELL DISTRIBUTION WIDTH 15.9 % (10.0-14.5); WHITE BLOOD COUNT 11.9 10^3/uL (4.3-11.0)
[2019-09-28] MEDS ORDERED: RT-ALBUTEROL SULF 2.5 MG/3 ML PRE-MIX VIAL ONE (03:21)
[2019-09-28] MEDS: fentaNYL INJECTION 100 MCG/2 ML AMP IVP PRN ×4 (03:24→22:55)
[2019-09-28 03:34] LABS: CALCIUM 9.2 MG/DL (8.5-10.1); CREATININE SERUM 1.5 MG/DL (0.60-1.30); MAGNESIUM 2.2 MG/DL (1.6-2.4); PHOSPHORUS 3.9 MG/DL (2.3-4.7); POTASSIUM 3.7 MMOL/L (3.6-5.0)
[2019-09-28] MEDS: MAGNESIUM 1 GM/100 ML IVPB 100 ML IV SCH (04:44)
[2019-09-28] MEDS: POTASSIUM CL 10MEQ/50ML IVPB 50 ML IV SCH (04:44)
[2019-09-28] MEDS: KCL 20 MEQ TAB (K-DUR) PO SCH (04:44)
[2019-09-28 04:45] LABS: ABG BASE EXCESS 5.2 MMOL/L (-2.5-2.5); ABG OXYGEN SATURATION 92 % (94-100); ABG PCO2 45 MMHG (35-45); ABG PH 7.43 (7.37-7.43); ABG PO2 66 MMHG (79-93); ABG TCO2 30.9 MMOL/L (21.0-31.0); ALLENS TEST POSITIVE
[2019-09-28 04:46] LABS: INSPIRED O2 60%; PATIENT TEMP 36.4; VENTILATOR YES
[2019-09-28] MEDS ORDERED: TROUGH ORDER-PHARMACY XX NR (06:00)
--- NOTE | 2019-09-28 06:00 | NUR ---
This RN reported pt's elevated SBP, new orders received at this time.
[2019-09-28] MEDS: DEXMEDETOMIDINE 1,000 MCG/NS 250 ML IV SCH ×6 (06:08→20:02)
[2019-09-28] MEDS ORDERED: KCL 20 MEQ POWDER FOR ORAL SOLUTION PO ONE (06:15)
[2019-09-28] MEDS: ENOXAPARIN 100 MG/1 ML (LOVENOX) SYR SC SCH ×2 (06:18→18:12)
[2019-09-28] MEDS: CALCIUM ACETATE 667 MG CAP (PHOSLO) PO SCH ×3 (06:23→18:11)
[2019-09-28] MEDS: VANCOMYCIN 1,750 MG/NS 500 ML IVPB IV SCH ×2 (07:07)
--- NOTE | 2019-09-28 07:30 | Diagnostic Imaging Report ---
Indication: Dyspnea. Comparison: 09/27/2019. Discussion: Single portable upright view of the chest was obtained. Endotracheal tube, enteric tube, and right IJ central venous catheter is stable. Mild cardiomegaly stable. Possible infiltrate or effusion within the left lung base is stable. No new consolidation. No pneumothorax or osseous abnormality. Impression: 1. Stable chest. Dictated by: Dictated on workstation # [id number]
--- NOTE | 2019-09-28 07:45 | NUR ---
REPORT RECEIVED AND PT ASSESSED. PT REPOSITIONED IN BED. FAMILY ARRIVES AT BEDSIDE. NO CONCERNS AT THIS TIME. ORAL CARE PROVIDED. RESIDUAL FROM OGT IS 160, WILL MAINTAIN AT 20ML /HR UNTIL NEXT CHECK AND INCREASE IF RESIDUALS DOWN AT THAT TIME. WILL CONTINUE TO MONITOR CLOSELY.
[2019-09-28] MEDS: BUMETANIDE 1 MG/4 ML (BUMEX) VIAL IV SCH ×2 (08:57→20:03)
[2019-09-28] MEDS: AMIODARONE 200 MG (CORDARONE) TAB NG SCH ×2 (08:57→20:02)
[2019-09-28] MEDS ORDERED: PIPERACILLIN/TAZOBACTAM (BULK) 4.5 GM in NS (IVPB) 100 ML IV NR (10:00)
[2019-09-28 10:39] LABS: ABG BASE EXCESS 4.8 MMOL/L (-2.5-2.5); ABG OXYGEN SATURATION 95 % (94-100); ABG PCO2 41 MMHG (35-45); ABG PH 7.45 (7.37-7.43); ABG PO2 75 MMHG (79-93); ABG TCO2 30.2 MMOL/L (21.0-31.0)
[2019-09-28 10:40] LABS: ALLENS TEST YES-POS; INSPIRED O2 60%; VENTILATOR YES
--- NOTE | 2019-09-28 11:25 | NUR ---
PT REPOSITIONED AT 1045. PT HAD MEDIUM AMOUNT OF DARK BROWN STOOL. ALL LINENS CHANGED. PT DID NOT TOLERATE POSITION CHANGES WELL. SHE HAD DESATURATION OF 88-89% THAT DID NOT RETURN TO BASELINE POST REPOSITION. FIO2 INCREASED TO 70%. ALLEVYN REPLACED DUE TO SOILING. PT HAS THREE OPEN AREAS ON BUTTOCK. THESE ARE NOT RELATED TO A PRESSURE AREA. THEY APPEAR TO THIS RN TO BE FROM BROKEN BLISTERS/SHEAR INJURY.
[2019-09-28] MEDS: hydrALAZINE (APESOLINE) 20 MG/ML VIAL IV PRN ×2 (12:47→20:28)
[2019-09-28 12:49] LABS: CALCIUM 8.9 MG/DL (8.5-10.1); CREATININE SERUM 1.41 MG/DL (0.60-1.30); POTASSIUM 3.9 MMOL/L (3.6-5.0)
--- NOTE | 2019-09-28 13:24 | Progress Note - Hospitalist ---
Subjective HPI/CC On Admission Date Seen by Provider: Sep 28, 2019 Time Seen by Provider: 09:00 Helene is a 54 y/o female that presented to via [facility] due to altered mental status. The following information was obtained from ER chart. Patient is currently intubated and sedated and has no family at the bedside at this time. She was brought in via EMS and was reportedly found at home after two days of no contact. She was unresponsive and was sitting in urine. There is concern of alcohol and narcotic use. She currently smokes 3 packs of cigarettes a day. She arrived to the ER with a fever and was hypoxic. The patient is requiring intubation and FiO2 of 100%. She received both chest CT and X-ray. Chest CT is showing extensive airspace consolidation with the right middle lobe, right lower lobe, left lower lobe possibly related to aspiration, pneumonia, or other alveolar consolidative processes.Chest X-ray showed nonspecific bibasilar airspace consolidation with probable bilateral pleural effusions. Subjective/Events-last exam Patient the same Intubated Family at bedside Focused Exam Lactate Level 09/26/19 05:45: Lactic Acid Level 0.92 Objective Exam Vital Signs Vital Signs Date Time Temp Pulse Resp B/P (MAP) Pulse Ox O2 Delivery O2 Flow Rate FiO2 09/28/19 17:00 77 21 161/74 (103) 93 Mechanical Ventilator 70.00 09/28/19 16:02 70 09/28/19 16:00 36.0 Capillary Refill : Less Than 3 Seconds General Appearance: No Apparent Distress, WD/WN, Chronically ill, Other (sedated) Respiratory: Decreased Breath Sounds, Other (intubated) Results/Procedures Lab Laboratory Tests 09/27/19 21:10 09/28/19 03:10 09/28/19 12:25 Patient resulted labs reviewed. Imaging: Reviewed Imaging Report Assessment/Plan Assessment and Plan Assess & Plan/Chief Complaint Assessment: VDRF s/p Septic Shock with Pseudomonas on Cx on Zosyn Acute on Chronic Respiratory failure with ARDS COPD acute exacerbation AFIB/Flutter with RVR RLE DVT GIOVANNI Alcohol abuse Hyperglycemia Plan: [facility] declined to take the patient VDRF remains Poor prognosis Critical Care Critically Ill Patient Diagnosis/Problems Diagnosis/Problems (1) ARDS (adult respiratory distress syndrome) (2) Atrial fibrillation with rapid ventricular response Status: Acute (3) Bilateral pneumonia Status: Acute Qualifiers: Pneumonia type: due to unspecified organism Lung location: lower lobe of lung Qualified Codes: J18.1 - Lobar pneumonia, unspecified organism (4) Septic shock Status: Acute (5) Acute respiratory failure Status: Acute Qualifiers: Respiratory failure complication: hypoxia Qualified Codes: J96.01 - Acute respiratory failure with hypoxia (6) Alcohol use Status: Acute Clinical Quality Measures DVT/VTE Risk/Contraindication: Risk Factor Score Per Nursin RFS Level Per Nursing on Admit: 4+=Very High TAL YANEZ DO Sep 28, 2019 13:24
--- NOTE | 2019-09-28 14:00 | NUR ---
OGT RESIDUAL 140. TF INCREASED TO 30 ML/HR. WILL RECHECK IN 6 HRS.
--- NOTE | 2019-09-28 14:20 | Cardiology Progress Note ---
Cardiology SOAP Progress Note Subjective: Intubated/ventilated. Objective: I&O/Vital Signs 09/28/19 09/28/19 09/28/19 09/28/19 03:00 03:24 03:24 04:00 Pulse 103 105 Resp B/P (MAP) 194/100 (131) 192/101 Pulse Ox 91 92 92 O2 Delivery Mechanical Ventilator Mechanical Ventilator O2 Flow Rate 55.00 FiO2 60 45 09/28/19 09/28/19 09/28/19 09/28/19 04:00 05:00 06:00 06:07 Pulse 96 89 84 Resp 23 26 27 B/P (MAP) 191/103 (132) 175/92 (119) 162/87 (112) 162/87 Pulse Ox 91 91 92 O2 Delivery Mechanical Ventilator Mechanical Ventilator Mechanical Ventilator O2 Flow Rate 55.00 55.00 55.00 09/28/19 09/28/19 09/28/19 09/28/19 06:15 07:00 07:00 07:40 Pulse 82 82 81 Resp B/P (MAP) 160/89 (112) Pulse Ox 93 92 92 O2 Delivery Mechanical Ventilator Mechanical Ventilator O2 Flow Rate 55.00 FiO2 65 60 09/28/19 09/28/19 09/28/19 09/28/19 08:00 08:00 08:58 09:00 Temp 36.4 Pulse 81 78 78 Resp B/P (MAP) 167/92 (117) 130/69 132/68 (89) Pulse Ox 92 94 O2 Delivery Mechanical Ventilator Mechanical Ventilator O2 Flow Rate 55.00 55.00 09/28/19 09/28/19 09/28/19 09/28/19 10:00 10:16 11:00 11:16 Pulse 75 74 75 Resp 23 24 19 B/P (MAP) 143/72 (95) 149/80 (103) Pulse Ox 93 93 90 O2 Delivery Mechanical Ventilator Mechanical Ventilator Mechanical Ventilator O2 Flow Rate 55.00 55.00 70.00 FiO2 65 09/28/19 09/28/19 09/28/19 09/28/19 11:34 12:00 12:00 12:10 Temp 36.0 Pulse 79 75 Resp 23 B/P (MAP) 148/73 158/82 (107) Pulse Ox 93 92 O2 Delivery Mechanical Ventilator Mechanical Ventilator O2 Flow Rate 70.00 FiO2 70 09/28/19 09/28/19 09/28/19 13:00 14:05 14:07 Pulse 81 79 80 Resp 24 B/P (MAP) 160/77 Pulse Ox 91 FiO2 65 09/28/19 00:00 Intake Total 1540 ml Output Total 1500 ml Balance 40 ml Weight (Pounds): 218 Weight (Ounces): 0.0 Weight (Calculated Kilograms): 98.261696 Constitutional: well-developed, well-nourished, other (intubated and sedated) Respiratory: No accessory muscle use, No respiratory distress; chest expansion is symmetric, other (fair air entry; intubated) Cardiovascular: regular rate-rhythm; No JVD; S1 and S2 Gastrointestional: audible bowel sounds Extremities: other (mod bilat LE swelling) Neurologic/Psychiatric: other (intubated/ventilated) Skin: warm/dry Results/Procedures: Labs Laboratory Tests 09/27/19 17:17: Glucometer 83 09/27/19 21:10: Sodium Level 141, Potassium Level 3.5L, Chloride Level 104, Carbon Dioxide Level 23, Anion Gap 14, Blood Urea Nitrogen 42H, Creatinine 1.57H, Estimat Glomerular Filtration Rate 34, BUN/Creatinine Ratio 27, Glucose Level 89, Calcium Level 8.8, Magnesium Level 1.9 09/28/19 00:39: Glucometer 116H 09/28/19 02:15: Blood Gas Puncture Site RIGHT RADIAL, Blood Gas Patient Temperature 36.5, Arteri al Blood pH 7.41, Arterial Blood Partial Pressure CO2 46H, Arterial Blood Partial Pressure O2 68L, Arterial Blood HCO3 29H, Arterial Blood Total CO2 30.6, Arterial Blood Oxygen Saturation 92L, Arterial Blood Base Excess 4.7H, Jame Test POSITIVE, Blood Gas Ventilator Setting YES, Blood Gas Inspired Oxygen 55% 09/28/19 03:10: White Blood Count 11.9H, Red Blood Count 3.47L, Hemoglobin 10.9L, Hematocrit 34L , Mean Corpuscular Volume 98, Mean Corpuscular Hemoglobin 31, Mean Corpuscular Hemoglobin Concent 32, Red Cell Distribution Width 15.9H, Platelet Count 266, Mean Platelet Volume 10.4, Neutrophils (%) (Auto) 88H, Lymphocytes (%) (Auto) 8L , Monocytes (%) (Auto) 3, Eosinophils (%) (Auto) 1, Basophils (%) (Auto) 0, Neutrophils # (Auto) 10.4H, Lymphocytes # (Auto) 0.9L, Monocytes # (Auto) 0.4, Eosinophils # (Auto) 0.1, Basophils # (Auto) 0.0, Sodium Level 140, Potassium Level 3.7, Chloride Level 102, Carbon Dioxide Level 24, Anion Gap 14, Blood Urea Nitrogen 40H, Creatinine 1.50H, Estimat Glomerular Filtration Rate 36, BUN/Creatinine Ratio 27, Glucose Level 89, Calcium Level 9.2, Phosphorus Level 3.9, Magnesium Level 2.2 09/28/19 04:35: Blood Gas Puncture Site RIGHT RADIAL, Blood Gas Patient Temperature 36.4, Arterial Blood pH 7.43, Arterial Blood Partial Pressure CO2 45, Arterial Blood Partial Pressure O2 66L, Arterial Blood HCO3 30H, Arterial Blood Total CO2 30.9, Arterial Blood Oxygen Saturation 92L, Arterial Blood Base Excess 5.2H, Jame Test POSITIVE, Blood Gas Ventilator Setting YES, Blood Gas Inspired Oxygen 60% 09/28/19 06:00: Vancomycin Level Trough 27.4*H 09/28/19 10:20: Blood Gas Puncture Site RT RAD, Blood Gas Patient Temperature 36.0, Arterial Blood pH 7.45H, Arterial Blood Partial Pressure CO2 41, Arterial Blood Partial Pressure O2 75L, Arterial Blood HCO3 29H, Arterial Blood Total CO2 30.2, Arterial Blood Oxygen Saturation 95, Arterial Blood Base Excess 4.8H, Jame Test YES-POS, Blood Gas Ventilator Setting YES, Blood Gas Inspired Oxygen 60% 09/28/19 11:40: Glucometer 90 09/28/19 12:25: Sodium Level 141, Potassium Level 3.9, Chloride Level 102, Carbon Dioxide Level 25, Anion Gap 14, Blood Urea Nitrogen 38H, Creatinine 1.41H, Estimat Glomerular Filtration Rate 39, BUN/Creatinine Ratio 27, Glucose Level 74, Calcium Level 8.9 Microbiology 09/26/19 Blood Culture - Preliminary, Resulted No growth 09/20/19 Mycobacterial Culture - Preliminary, Resulted A/P: Assessment/Dx: Acute resp failure, ARDS, likely due to COPD exacerbated by aspiration pneumonia Acute renal failure, likely ATN due to hypotension due to sepsis Hyperkalemia/hypermag likely secondary to renal failure PAF/flutter, currently NSR Hypotension due to sepsis and propofol (post-intubation) Elevated troponin - likely type 2 MD d/t hypoxia Card cath of 09/07/18: minimal CAD, LVEF 70-75%, elevated LVEDP Echo of 09/20/19: LVEF 50-55%, RVSP 35 mmHg H/o opiate addiction ETOH abuse Chronic tobacco use Fam h/o early CAD Hyperlipidemia Borderline DM II (fasting blood glucose on 09/07/18) Carotid u/s on 01/05/19: no significant dz Plan: Plan: * Prognosis guarded * ARDS, requiring high PEEP and FiO2. * D/c dig, continue amiodarone via NGT * Monitor lab closely * amlodipine 5 mg via OG tube. Thank you for your consultation. Please call me if you have any questions. Taz Velazco MD, FACP, FACC, FSCAI, FHRS, CCDS Interventional Cardiology Cardiac Electrophysiology Vascular Medicine and Endovascular Interventions Focused Exam Lactate Level 09/26/19 05:45: Lactic Acid Level 0.92 Graciela VELAZCO MD Sep 28, 2019 14:19
[2019-09-28] MEDS: PIPERACILLIN/TAZOBACTAM (BULK) 4.5 GM in NS (IVPB) 100 ML IV SCH (15:43)
[2019-09-28 17:26] LABS: ABG BASE EXCESS 4.9 MMOL/L (-2.5-2.5); ABG OXYGEN SATURATION 95 % (94-100); ABG PCO2 42 MMHG (35-45); ABG PH 7.45 (7.37-7.43); ABG PO2 73 MMHG (79-93); ABG TCO2 30.3 MMOL/L (21.0-31.0)
[2019-09-28 17:27] LABS: ALLENS TEST POS
[2019-09-28 17:28] LABS: INSPIRED O2 70%; PATIENT TEMP 36; VENTILATOR YES
[2019-09-28] MEDS: methylPREDNISolone 125 MG (Solu-MEDROL) VIAL IV SCH (18:13)
[2019-09-28] MEDS: FAMOTIDINE 20 MG (PEPCID) TABLET GT SCH (20:03)
[2019-09-29] VITALS (30 sets, daily range): BP systolic 151–186; BP diastolic 63–88
[2019-09-29] MEDS: PIPERACILLIN/TAZOBACTAM (BULK) 4.5 GM in NS (IVPB) 100 ML IV SCH ×3 (00:45→16:37)
[2019-09-29] MEDS: RT-ALBUTEROL/IPRATROPIUM 3 ML (DUONEB) VIAL INH SCH ×6 (01:42→22:03)
[2019-09-29 03:58] LABS: BASOPHILS % (AUTO) 0 % (0-10); EOSINOPHILS % (AUTO) 0 % (0-10); HEMATOCRIT 33 % (35-52); HEMOGLOBIN 10.7 G/DL (11.5-16.0); LYMPHOCYTES # (AUTO) 0.3 X 10^3 (1.0-4.0); LYMPHOCYTES % (AUTO) 3 % (12-44); MEAN CORPUSCULAR HEMOGLOBIN 32 PG (25-34); MEAN CORPUSCULAR HGB CONC 32 G/DL (32-36); MEAN CORPUSCULAR VOLUME 98 FL (80-99); MONOCYTES # (AUTO) 0.1 X 10^3 (0.0-1.0); MONOCYTES % (AUTO) 1 % (0-12); NEUTROPHILS # (AUTO) 8.6 X 10^3 (1.8-7.8); NEUTROPHILS % (AUTO) 95 % (42-75); PLATELET COUNT 298 10^3/uL (130-400); RED CELL DISTRIBUTION WIDTH 15.3 % (10.0-14.5)
[2019-09-29 04:24] LABS: CALCIUM 9.3 MG/DL (8.5-10.1); CREATININE SERUM 1.39 MG/DL (0.60-1.30); PHOSPHORUS 5.1 MG/DL (2.3-4.7); POTASSIUM 4.5 MMOL/L (3.6-5.0)
[2019-09-29 04:38] LABS: ABG BASE EXCESS 4.6 MMOL/L (-2.5-2.5); ABG OXYGEN SATURATION 94 % (94-100); ABG PCO2 41 MMHG (35-45); ABG PH 7.45 (7.37-7.43); ABG PO2 69 MMHG (79-93)
[2019-09-29 04:41] LABS: ALLENS TEST YES-POS; INSPIRED O2 85%; PATIENT TEMP 36.1; VENTILATOR YES
[2019-09-29] MEDS: fentaNYL INJECTION 100 MCG/2 ML AMP IVP PRN (05:03)
[2019-09-29] MEDS: hydrALAZINE (APESOLINE) 20 MG/ML VIAL IV PRN ×2 (05:03→08:35)
[2019-09-29] MEDS: DILTIAZEM 125 MG/NS 100 ML IV SCH ×4 (05:05→21:27)
[2019-09-29] MEDS: inSUlin ASPART (NovoLOG) 1 UNIT/0.01 ML (CHARGE PER UNIT) SC SCH ×4 (05:06→19:29)
[2019-09-29] MEDS: fentaNYL 1,250 MCG/NS 250 ML DRIP IV SCH ×4 (05:06→21:27)
[2019-09-29] MEDS: MIDAZOLAM DRIP 50 MG/NS 90 ML IV SCH ×4 (05:06→21:31)
[2019-09-29] MEDS ORDERED: TROUGH ORDER-PHARMACY XX NR (06:00)
[2019-09-29] MEDS: ENOXAPARIN 100 MG/1 ML (LOVENOX) SYR SC SCH ×2 (06:32→18:59)
[2019-09-29] MEDS: POTASSIUM CL 10MEQ/50ML IVPB 50 ML IV SCH (06:34)
[2019-09-29] MEDS: KCL 20 MEQ TAB (K-DUR) PO SCH (06:34)
[2019-09-29] MEDS: MAGNESIUM 1 GM/100 ML IVPB 100 ML IV SCH (06:34)
--- NOTE | 2019-09-29 06:50 | Diagnostic Imaging Report ---
INDICATION: Respiratory failure Portable chest 3:33 AM There is an ET tube projecting over the trachea. NG tube enters the stomach. Right IJ central line tip projects over the SVC. There is some left perihilar and left basilar consolidation. Right lung is clear. IMPRESSION: Left lower lung consolidation suspicious for pneumonia. This is increased compared to the previous day. Dictated by: Dictated on workstation # [id number]
[2019-09-29] MEDS: CALCIUM ACETATE 667 MG CAP (PHOSLO) PO SCH ×3 (08:04→16:37)
[2019-09-29] MEDS: BUMETANIDE 1 MG/4 ML (BUMEX) VIAL IV SCH ×2 (09:10→21:00)
[2019-09-29] MEDS: AMIODARONE 200 MG (CORDARONE) TAB NG SCH ×2 (09:10→21:01)
--- NOTE | 2019-09-29 09:42 | Physical Therapy Progress Note ---
Therapy Progress Note Pt remains sedated and on a ventilator. Will continue to follow. TY GRECO PT Sep 29, 2019 09:42
[2019-09-29] MEDS: DEXMEDETOMIDINE 1,000 MCG/NS 250 ML IV SCH ×4 (09:51→16:37)
--- NOTE | 2019-09-29 10:34 | NUR ---
PALLIATIVE CARE RN in to see patient. Mother and father at bedside. Spoke with them briefly bout her illness and critical state of health. Will continue to follow and offer assist as needed.
--- NOTE | 2019-09-29 11:46 | NUR ---
PTD VANCOMYCIN LABS SCr 1.4, CrCl 57.7, VANCOMYCIN LEVEL 09/28 @0600 27.4, 09/29 @0349 18.3 PHARMACOKINETIC CALCULATIONS Kd ~ 0.0183, T 1/2 ~ 37.8 HR ASSESSMENT/PLAN - CHANGED VANCOMYCIN FREQUENCY TO Q48H STARTING 09/30 @ 1000
--- NOTE | 2019-09-29 13:33 | NUR ---
RECEIVED CALL FROM E-ICU PHYSICIAN AND ORDERS GIVEN TO TURN FI02 DOWN TO 70%. O2 SATS 88% WITHIN MINUTES. FI02 INCREASED TO 75% WITHOUT INCREASE IN SATS. INCREASED TO 80% AND NOW O2 SATS ARE 90%.
--- NOTE | 2019-09-29 13:43 | Progress Note - Hospitalist ---
Subjective HPI/CC On Admission Date Seen by Provider: Sep 29, 2019 Time Seen by Provider: 07:50 Helene is a 54 y/o female that presented to via [facility], [place] due to altered mental status. The following information was obtained from ER chart. Patient is currently intubated and sedated and has no family at the bedside at this time. She was brought in via EMS and was reportedly found at home after two days of no contact. She was unresponsive and was sitting in urine. There is concern of alcohol and narcotic use. She currently smokes 3 packs of cigarettes a day. She arrived to the ER with a fever and was hypoxic. The patient is requiring intubation and FiO2 of 100%. She received both chest CT and X-ray. Chest CT is showing extensive airspace consolidation with the right middle lobe, right lower lobe, left lower lobe possibly related to aspiration, pneumonia, or other alveolar consolidative processes.Chest X-ray showed nonspecific bibasilar airspace consolidation with probable bilateral pleural effusions. Subjective/Events-last exam She is intubated and sedated. There is no family at the bedside. Objective Exam Vital Signs Vital Signs Date Time Temp Pulse Resp B/P (MAP) Pulse Ox O2 Delivery O2 Flow Rate FiO2 09/29/19 12:06 86 168/74 09/29/19 12:00 36.0 09/29/19 11:00 20 90 Mechanical Ventilator 85.00 09/29/19 09:39 85 Capillary Refill : Less Than 3 Seconds General Appearance: No Apparent Distress, WD/WN, Other (Intubated and sedated) Neck: Normal Inspection, Supple Respiratory: No Respiratory Distress, Other (Coarse breath sounds, mechanically ventilated) Cardiovascular: Regular Rate, Rhythm, No Murmur Gastrointestinal: Normal Bowel Sounds, Soft Extremity: Normal Inspection, Non Tender, Pedal Edema Neurologic/Psychiatric: Other (Sedated) Skin: Normal Color, Warm/Dry Results/Procedures Lab Laboratory Tests 09/29/19 03:49 Patient resulted labs reviewed. Imaging: Reviewed Imaging Report Assessment/Plan Assessment and Plan Assess & Plan/Chief Complaint ARDS Acute respiratory failure with hypoxia Endotracheally intubated COPD with acute exacerbation EICU managing vent Attempted to transfer patient to [place] and , both declined Continue Bumex Broch culture grew Pseudomonas Continue Zosyn Continue steroids AFIB/Flutter with RVR Continue Lovenox, pharmacy dosing Continue amiodarone Cardiology consulted, appreciate recs RLE DVT Lovenox GIOVANNI Improved, continue to monitor Steroid-induced hyperglycemia - Continue Levemir, no known diagnosis of DM - SSI Alcohol abuse Clinically significant, in no acute management needs Critical Care Critically Ill Patient Diagnosis/Problems Diagnosis/Problems (1) ARDS (adult respiratory distress syndrome) Status: Acute Clinical Quality Measures DVT/VTE Risk/Contraindication: Risk Factor Score Per Nursin RFS Level Per Nursing on Admit: 4+=Very High ACE DIAMOND MD Sep 29, 2019 13:43
--- NOTE | 2019-09-29 15:01 | NUR ---
PT CENTRAL LINE TO RIGHT IJ HAS BEEN BLEEDING THIS SHIFT. PRESSURE HELD MULTIPLE TIMES WITHOUT RESOLUTION OF BLEEDING. BROWN PORT SLUGGISH TO FLUSH BUT OTHERWISE PATENT. GOOD BLOOD RETURN. DRESSING REMOVED AND REAPPLIED WITH STERILE 4X4 FOR PRESSURE. ICE PACK APPLIED AND BLEEDING HAS NOW RESOLVED. MONITORING IT CLOSELY.
--- NOTE | 2019-09-29 15:02 | NUR ---
"RD ASSESSMENT PMHx: COPD; HTN; GERD PT INTERACTION: Pt is currently intubated and sedated. Pt currently at goal rate for enteral nutrition. RN states pt is tolerating formula at goal rate. ABNORMAL NUTRITION-RELATED LAB VALUES LOW: HIGH: BUN 37; cr 1.39; glu 140; phos 5.1 Est. kcal needs: 4115-6617 kcal | 25-30 kcal/kg IBW Est. Pro needs: 55-65 g Pro | 1.0-1.2 g Pro/kg IBW PES STATEMENT: Inadequate oral intake (NI-2.1) related to NPO status as evidenced by pt intubated and sedated INTERVENTION: Continue with current TF recommendations - Glucerna 1.5 at goal rate of 40 ml/hr. At goal rate, provides 1440 kcal (26 kcal/kg IBW); 79 g Pro (1.4 g Pro/kg IBW); and 729 ml free water. Flush with 100 ml H2O q4h for hydration. With flushes, provides 1329 ml free water. Will continue to follow and reassess as pt needs and status change. MONITOR/EVALUATE: PO Intake; Plan of Care; Hydration Status; Weight Status; Lab Values Pancho Rodriguez, MS, RD, LD"
[2019-09-29] MEDS: methylPREDNISolone 125 MG (Solu-MEDROL) VIAL IV SCH (16:36)
[2019-09-29] MEDS: hydrALAZINE (APRESOLINE) 25 MG TAB PO SCH ×2 (16:37→21:01)
--- NOTE | 2019-09-29 17:09 | Cardiology Progress Note ---
Cardiology SOAP Progress Note Subjective: Intubated/ventilated. Objective: I&O/Vital Signs 09/29/19 09/29/19 09/29/19 09/29/19 06:00 06:23 06:32 07:00 Pulse 133 130 110 Resp 21 25 B/P (MAP) 185/87 (119) 185/89 Pulse Ox 91 91 O2 Delivery Mechanical Ventilator O2 Flow Rate 85.00 FiO2 90 09/29/19 09/29/19 09/29/19 09/29/19 07:00 08:00 08:00 09:00 Pulse 110 89 91 Resp 23 16 15 B/P (MAP) 162/70 (100) 179/78 (111) 151/63 (92) Pulse Ox 90 91 91 91 O2 Delivery Mechanical Ventilator Mechanical Ventilator Mechanical Ventilator Mechanical Ventilator O2 Flow Rate 85.00 85.00 85.00 FiO2 85 09/29/19 09/29/19 09/29/19 09/29/19 09:17 09:39 10:00 11:00 Pulse 101 101 99 109 Resp 24 19 20 B/P (MAP) 168/71 161/70 (100) 164/76 (105) Pulse Ox 91 90 90 O2 Delivery Mechanical Ventilator Mechanical Ventilator O2 Flow Rate 85.00 85.00 FiO2 85 09/29/19 09/29/19 09/29/19 09/29/19 12:00 12:00 12:00 12:06 Temp 36.0 Pulse 87 86 Resp 23 B/P (MAP) 168/74 (105) 168/74 Pulse Ox 90 91 O2 Delivery Mechanical Ventilator Mechanical Ventilator O2 Flow Rate 85.00 FiO2 85 09/29/19 09/29/19 09/29/19 09/29/19 13:00 13:00 14:00 14:34 Pulse 84 85 82 84 Resp 19 21 21 B/P (MAP) 172/78 (109) 168/76 (106) Pulse Ox 91 90 90 O2 Delivery Mechanical Ventilator Mechanical Ventilator O2 Flow Rate 85.00 70.00 FiO2 85 09/29/19 09/29/19 09/29/19 09/29/19 14:38 15:00 16:00 16:36 Pulse 83 82 81 80 Resp 23 22 B/P (MAP) 163/76 157/72 (100) 159/68 (98) 164/71 Pulse Ox 90 91 O2 Delivery Mechanical Ventilator Mechanical Ventilator O2 Flow Rate 70.00 70.00 09/29/19 00:00 Intake Total 970 ml Output Total 4000 ml Balance -3030 ml Weight (Pounds): 218 Weight (Ounces): 0.0 Weight (Calculated Kilograms): 98.919004 Constitutional: well-developed, well-nourished, other (intubated and sedated) Respiratory: No accessory muscle use, No respiratory distress; chest expansion is symmetric, other (fair air entry; intubated) Cardiovascular: regular rate-rhythm; No JVD; S1 and S2 Gastrointestional: audible bowel sounds Extremities: other (mod bilat LE swelling) Neurologic/Psychiatric: other (intubated/ventilated) Skin: warm/dry Results/Procedures: Labs Laboratory Tests 09/28/19 17:38: Glucometer 91 09/29/19 01:01: Glucometer 142H 09/29/19 03:49: White Blood Count 9.0, Red Blood Count 3.38L, Hemoglobin 10.7L, Hematocrit 33L, Mean Corpuscular Volume 98, Mean Corpuscular Hemoglobin 32, Mean Corpuscular Hemoglobin Concent 32, Red Cell Distribution Width 15.3H, Platelet Count 298, Mean Platelet Volume 10.0, Neutrophils (%) (Auto) 95H, Lymphocytes (%) (Auto) 3L , Monocytes (%) (Auto) 1, Eosinophils (%) (Auto) 0, Basophils (%) (Auto) 0, Neutrophils # (Auto) 8.6H, Lymphocytes # (Auto) 0.3L, Monocytes # (Auto) 0.1, Eosinophils # (Auto) 0.0, Basophils # (Auto) 0.0, Sodium Level 142, Potassium Level 4.5, Chloride Level 102, Carbon Dioxide Level 24, Anion Gap 16H, Blood Urea Nitrogen 37H, Creatinine 1.39H, Estimat Glomerular Filtration Rate 40, BUN/Creatinine Ratio 27, Glucose Level 140H, Calcium Level 9.3, Phosphorus Level 5.1H, Magnesium Level 2.0, Vancomycin Level Trough 18.3 09/29/19 04:33: Blood Gas Puncture Site R RAD, Blood Gas Patient Temperature 36.1, Arterial Blood pH 7.45H, Arterial Blood Partial Pressure CO2 41, Arterial Blood Partial Pressure O2 69L, Arterial Blood HCO3 29H, Arterial Blood Total CO2 30.0, Arterial Blood Oxygen Saturation 94, Arterial Blood Base Excess 4.6H, Jame Test YES-POS, Blood Gas Ventilator Setting YES, Blood Gas Inspired Oxygen 85% 09/29/19 11:32: Glucometer 176H Microbiology 09/26/19 Blood Culture - Preliminary, Resulted No growth 09/20/19 Mycobacterial Culture - Preliminary, Resulted A/P: Assessment/Dx: Acute resp failure, ARDS, likely due to COPD exacerbated by aspiration pneumonia Acute renal failure, likely ATN due to hypotension due to sepsis Hyperkalemia/hypermag likely secondary to renal failure PAF/flutter, currently NSR Hypotension due to sepsis and propofol (post-intubation) Elevated troponin - likely type 2 CT d/t hypoxia Card cath of 09/07/18: minimal CAD, LVEF 70-75%, elevated LVEDP Echo of 09/20/19: LVEF 50-55%, RVSP 35 mmHg H/o opiate addiction ETOH abuse Chronic tobacco use Fam h/o early CAD Hyperlipidemia Borderline DM II (fasting blood glucose on 09/07/18) Carotid u/s on 01/05/19: no significant dz Plan: Plan: * Prognosis guarded * ARDS, requiring high PEEP and FiO2. PEEP today 8 but FiO2 85%. * D/c dig, continue amiodarone via NGT * Monitor lab closely * amlodipine 5 mg via OG tube. Thank you for your consultation. Please call me if you have any questions. Taz Velazco MD, FACP, FACC, FSCAI, FHRS, CCDS Interventional Cardiology Cardiac Electrophysiology Vascular Medicine and Endovascular Interventions Graciela VELAZCO MD Sep 29, 2019 17:09
--- NOTE | 2019-09-29 18:00 | NUR ---
ATTEMPTS TO TITRATE DOWN OXYGEN MADE. PT NOW 70%. GOAL TO KEEP SATS ABOVE 88%, MONITORING CLOSELY. PT CENTRAL LINE BLEEDING AFTER THIS WAS STOPPED FOR SOME TIME. E-ICU NOTIFIED AND ORDER TO GIVE LOVENOX AND APPLY THROMBIN SPRAY RECEIVED.
[2019-09-29] MEDS ORDERED: THROMBIN 5,000 UNIT (RECOTHROM) VIAL TOP NR (19:30)
[2019-09-29] MEDS: FAMOTIDINE 20 MG (PEPCID) TABLET GT SCH (21:01)
[2019-09-30] VITALS (30 sets, daily range): BP systolic 130–169; BP diastolic 60–84
--- NOTE | 2019-09-30 00:06 | NUR ---
Patient's central line continues to bleed, dressing changed once so far. EICU notified and orders received. Will continue to monitor and change dressing as needed.
[2019-09-30] MEDS ORDERED: NS (IVPB) 100 ML ONE (00:26)
[2019-09-30] MEDS ORDERED: DESMOPRESSIN 4 MCG INJ ONE ×2 (00:26→00:43)
[2019-09-30 00:42] LABS: BASOPHILS % (AUTO) 0 % (0-10); EOSINOPHILS % (AUTO) 0 % (0-10); HEMATOCRIT 33 % (35-52); HEMOGLOBIN 10.7 G/DL (11.5-16.0); LYMPHOCYTES # (AUTO) 0.4 X 10^3 (1.0-4.0); LYMPHOCYTES % (AUTO) 5 % (12-44); MEAN CORPUSCULAR HEMOGLOBIN 32 PG (25-34); MEAN CORPUSCULAR HGB CONC 33 G/DL (32-36); MEAN CORPUSCULAR VOLUME 98 FL (80-99); MEAN PLATELET VOLUME 9.8 FL (7.4-10.4); MONOCYTES # (AUTO) 0.2 X 10^3 (0.0-1.0); MONOCYTES % (AUTO) 2 % (0-12); NEUTROPHILS % (AUTO) 93 % (42-75); PLATELET COUNT 355 10^3/uL (130-400); RED CELL DISTRIBUTION WIDTH 15.6 % (10.0-14.5); WHITE BLOOD COUNT 8.7 10^3/uL (4.3-11.0)
[2019-09-30] MEDS ORDERED: NS (IVPB) 50 ML ONE (00:44)
[2019-09-30] MEDS ORDERED: [UNRECOGNIZED DRUG - REMARK] IV ONE (00:45)
[2019-09-30] MEDS: PIPERACILLIN/TAZOBACTAM (BULK) 4.5 GM in NS (IVPB) 100 ML IV SCH ×3 (00:59→15:30)
[2019-09-30] MEDS ORDERED: [UNRECOGNIZED DRUG - REMARK] IV ONE (01:00)
[2019-09-30 01:06] LABS: ALBUMIN 2.6 GM/DL (3.2-4.5); BILIRUBIN,TOTAL 0.2 MG/DL (0.1-1.0); CALCIUM 9.4 MG/DL (8.5-10.1); CREATININE SERUM 1.35 MG/DL (0.60-1.30); POTASSIUM 4.2 MMOL/L (3.6-5.0); TOTAL PROTEIN 5.8 GM/DL (6.4-8.2)
[2019-09-30] MEDS: hydrALAZINE (APRESOLINE) 25 MG TAB PO SCH ×6 (01:16→21:39)
[2019-09-30] MEDS: inSUlin ASPART (NovoLOG) 1 UNIT/0.01 ML (CHARGE PER UNIT) SC SCH ×4 (01:19→18:47)
[2019-09-30 01:33] LABS: PARTIAL THROMBOPLASTIN TIME 41 SEC (24-35); PROTHROMBIN TIME PATIENT 13.5 SEC (12.2-14.7)
[2019-09-30 01:35] LABS: FIBRINOGEN > 1200 MG/DL (221-496)
[2019-09-30] MEDS: RT-ALBUTEROL/IPRATROPIUM 3 ML (DUONEB) VIAL INH SCH ×6 (02:02→22:52)
[2019-09-30 03:36] LABS: PHOSPHORUS 4.2 MG/DL (2.3-4.7)
[2019-09-30 04:36] LABS: ABG BASE EXCESS 6.5 MMOL/L (-2.5-2.5); ABG OXYGEN SATURATION 91 % (94-100); ABG PCO2 39 MMHG (35-45); ABG PO2 62 MMHG (79-93); ABG TCO2 31.4 MMOL/L (21.0-31.0)
[2019-09-30 04:37] LABS: ALLENS TEST YES-POS; VENTILATOR YES
--- NOTE | 2019-09-30 05:00 | NUR ---
Discussed various options with EICU on stopping the bleeding of central line. Placed surgifoam dressing on central line cite to help curb the bleeding. Will continue to monitor.
[2019-09-30] MEDS: DEXMEDETOMIDINE 1,000 MCG/NS 250 ML IV SCH ×6 (05:28→19:25)
[2019-09-30] MEDS: POTASSIUM CL 10MEQ/50ML IVPB 50 ML IV SCH (06:09)
[2019-09-30] MEDS: MAGNESIUM 1 GM/100 ML IVPB 100 ML IV SCH (06:10)
[2019-09-30] MEDS: KCL 20 MEQ TAB (K-DUR) PO SCH (06:10)
[2019-09-30] MEDS: ENOXAPARIN 100 MG/1 ML (LOVENOX) SYR SC SCH ×2 (06:29→17:14)
[2019-09-30] MEDS ORDERED: FUROSEMIDE 40 MG/4 ML INJ (LASIX) ONE (06:56)
[2019-09-30] MEDS ORDERED: FUROSEMIDE 40 MG/4 ML INJ (LASIX) IV ONE (07:30)
--- NOTE | 2019-09-30 07:39 | Diagnostic Imaging Report ---
INDICATION: Pneumonia. Comparison is made with prior examination of 09/29/2019. FINDINGS: There is cardiomegaly. There is venous congestion. There is a left basilar pneumonia. There is a small left pleural effusion. There is no pneumothorax. Lines and tubes are in satisfactory position. IMPRESSION: Left basilar infiltrate and left pleural effusion. Cardiomegaly and some central pulmonary venous congestion. Dictated by: Dictated on workstation # [id number]
[2019-09-30] MEDS: CALCIUM ACETATE 667 MG CAP (PHOSLO) PO SCH ×3 (09:14→17:14)
[2019-09-30] MEDS: AMIODARONE 200 MG (CORDARONE) TAB NG SCH ×2 (09:14→21:44)
[2019-09-30] MEDS: BUMETANIDE 1 MG/4 ML (BUMEX) VIAL IV SCH ×2 (09:14→21:39)
[2019-09-30] MEDS: aCETylcysteine 20% (MUCOMYST) 30ML SOLN VIAL INH SCH ×3 (14:46→22:52)
[2019-09-30] MEDS: guaiFENesin SYRUP 100 MG/5 ML 10 ML (ROBITUSSIN SF) PO SCH ×2 (15:30→23:29)
--- NOTE | 2019-09-30 15:58 | Physical Therapy Progress Note ---
Therapy Progress Note Patient remains sedated and on ventilator. Will continued to follow this patient and will begin skilled therapy intervention when off sedation and ready for mobility training. BRET CHERRY PT Sep 30, 2019 15:58
--- NOTE | 2019-09-30 16:44 | Progress Note - Hospitalist ---
Subjective HPI/CC On Admission Date Seen by Provider: Sep 30, 2019 Time Seen by Provider: 07:50 Helene is a 54 y/o female that presented to via [facility] due to altered mental status. The following information was obtained from ER chart. Patient is currently intubated and sedated and has no family at the bedside at this time. She was brought in via EMS and was reportedly found at home after two days of no contact. She was unresponsive and was sitting in urine. There is concern of alcohol and narcotic use. She currently smokes 3 packs of cigarettes a day. She arrived to the ER with a fever and was hypoxic. The patient is requiring intubation and FiO2 of 100%. She received both chest CT and X-ray. Chest CT is showing extensive airspace consolidation with the right middle lobe, right lower lobe, left lower lobe possibly related to aspiration, pneumonia, or other alveolar consolidative processes.Chest X-ray showed nonspecific bibasilar airspace consolidation with probable bilateral pleural effusions. Subjective/Events-last exam She is intubated and sedated. There is no family at the bedside. Focused Exam Lactate Level 09/30/19 00:34: Lactic Acid Level 0.60 Objective Exam Vital Signs Vital Signs Date Time Temp Pulse Resp B/P (MAP) Pulse Ox O2 Delivery O2 Flow Rate FiO2 09/30/19 16:00 35.4 09/30/19 15:53 Mechanical Ventilator 70 09/30/19 15:31 148/67 09/30/19 15:00 61 34 93 80.00 Capillary Refill : Less Than 3 Seconds General Appearance: No Apparent Distress, Obese, Other (Intubated and sedated) HEENT: Other Neck: Normal Inspection, Supple, Other (Bleeding at site of right IJ) Respiratory: No Accessory Muscle Use, No Respiratory Distress, Other (Coarse breath sounds) Cardiovascular: Regular Rate, Rhythm, No Edema, No Murmur Gastrointestinal: Normal Bowel Sounds, Soft; No Distended Extremity: Normal Inspection, Non Tender, Pedal Edema Neurologic/Psychiatric: Other (Sedated) Skin: Normal Color, Warm/Dry Results/Procedures Lab Laboratory Tests 09/30/19 00:34 Patient resulted labs reviewed. Imaging: Reviewed Imaging Report Assessment/Plan Assessment and Plan Assess & Plan/Chief Complaint ARDS Acute respiratory failure with hypoxia Endotracheally intubated COPD with acute exacerbation EICU managing vent Continue Bumex Broch culture grew Pseudomonas Continue Zosyn Continue steroids AFIB/Flutter with RVR Continue Lovenox, pharmacy dosing Continue amiodarone Cardiology consulted, appreciate recs RLE DVT Lovenox GIOVANNI Improved, continue to monitor Steroid-induced hyperglycemia - Continue Levemir, no known diagnosis of DM - SSI Alcohol abuse Clinically significant, in no acute management needs Morbid obesity Clinically significant, no acute management needs Critical Care Critically Ill Patient Diagnosis/Problems Diagnosis/Problems (1) ARDS (adult respiratory distress syndrome) Status: Acute Clinical Quality Measures DVT/VTE Risk/Contraindication: Risk Factor Score Per Nursin RFS Level Per Nursing on Admit: 4+=Very High ACE DIAMOND MD Sep 30, 2019 16:44
[2019-09-30] MEDS: methylPREDNISolone 125 MG (Solu-MEDROL) VIAL IV SCH (17:14)
--- NOTE | 2019-09-30 17:44 | Cardiology Progress Note ---
Cardiology SOAP Progress Note Subjective: Intubated/ventilated Objective: I&O/Vital Signs 09/30/19 09/30/19 09/30/19 09/30/19 06:00 06:07 06:09 06:39 Pulse 92 84 86 Resp 19 21 B/P (MAP) 133/67 (89) Pulse Ox 91 91 O2 Delivery Mechanical Ventilator Mechanical Ventilator O2 Flow Rate 55.00 80.00 FiO2 80 09/30/19 09/30/19 09/30/19 09/30/19 07:00 07:50 08:00 08:00 Pulse 77 73 Resp 19 21 B/P (MAP) 162/80 (107) 168/82 166/77 (106) Pulse Ox 93 93 O2 Delivery Mechanical Ventilator Mechanical Ventilator Mechanical Ventilator O2 Flow Rate 80.00 80.00 FiO2 80 09/30/19 09/30/19 09/30/19 09/30/19 09:00 10:00 10:02 10:28 Pulse 69 68 67 Resp 19 19 20 B/P (MAP) 169/83 (111) 162/78 (106) 162/78 Pulse Ox 93 93 92 O2 Delivery Mechanical Ventilator Mechanical Ventilator O2 Flow Rate 80.00 80.00 FiO2 80 09/30/19 09/30/19 09/30/19 09/30/19 10:40 11:00 12:00 12:00 Temp 35.9 Pulse 68 66 Resp 21 21 B/P (MAP) 155/77 (103) 150/72 (98) Pulse Ox 89 90 O2 Delivery Mechanical Ventilator Mechanical Ventilator Mechanical Ventilator O2 Flow Rate 70.00 80.00 80.00 09/30/19 09/30/19 09/30/19 09/30/19 12:00 12:09 12:43 13:00 Pulse 64 66 Resp 19 B/P (MAP) 150/72 166/79 (108) Pulse Ox 91 O2 Delivery Mechanical Ventilator Mechanical Ventilator O2 Flow Rate 80.00 FiO2 70 09/30/19 09/30/19 09/30/19 09/30/19 14:00 14:08 14:55 15:00 Pulse 60 61 Resp 15 18 B/P (MAP) 157/79 (105) 157/79 Pulse Ox 92 92 92 O2 Delivery Mechanical Ventilator Mechanical Ventilator O2 Flow Rate 80.00 FiO2 70 70 09/30/19 09/30/19 09/30/19 09/30/19 15:00 15:31 15:53 16:00 Temp 35.4 Pulse 61 Resp 34 B/P (MAP) 152/68 (96) 148/67 Pulse Ox 93 O2 Delivery Mechanical Ventilator Mechanical Ventilator O2 Flow Rate 80.00 FiO2 70 09/30/19 16:44 B/P (MAP) 143/68 09/30/19 00:00 Intake Total 1060 ml Output Total 3050 ml Balance -1990 ml Weight (Pounds): 218 Weight (Ounces): 0.0 Weight (Calculated Kilograms): 98.341705 Constitutional: well-developed, well-nourished, other (intubated and sedated) Respiratory: No accessory muscle use, No respiratory distress; chest expansion is symmetric, other (fair air entry; intubated) Cardiovascular: regular rate-rhythm; No JVD; S1 and S2 Gastrointestional: audible bowel sounds Extremities: other (mod bilat LE swelling) Neurologic/Psychiatric: other (intubated/ventilated) Skin: warm/dry Results/Procedures: Labs Laboratory Tests 09/29/19 19:05: Glucometer 190H 09/30/19 00:34: White Blood Count 8.7, Red Blood Count 3.33L, Hemoglobin 10.7L, Hematocrit 33L, Mean Corpuscular Volume 98, Mean Corpuscular Hemoglobin 32, Mean Corpuscular Hemoglobin Concent 33, Red Cell Distribution Width 15.6H, Platelet Count 355, Mean Platelet Volume 9.8, Neutrophils (%) (Auto) 93H, Lymphocytes (%) (Auto) 5L, Monocytes (%) (Auto) 2, Eosinophils (%) (Auto) 0, Basophils (%) (Auto) 0, Neutrophils # (Auto) 8.0H, Lymphocytes # (Auto) 0.4L, Monocytes # (Auto) 0.2, Eosinophils # (Auto) 0.0, Basophils # (Auto) 0.0, Prothrombin Time 13.5, INR Comment 1.0, Activated Partial Thromboplast Time 41H, Fibrinogen > 1200H, Sodium Level 140, Potassium Level 4.2, Chloride Level 100, Carbon Dioxide Level 23, Anion Gap 17H, Blood Urea Nitrogen 39H, Creatinine 1.35H, Estimat Glomerular Filtration Rate 41, BUN/Creatinine Ratio 29, Glucose Level 254H, Lactic Acid Level 0.60, Calcium Level 9.4, Corrected Calcium 10.5H, Phosphorus Level 4.2, Magnesium Level 2.0, Total Bilirubin 0.2, Aspartate Amino Transf (AST/SGOT) 70H, Alanine Aminotransferase (ALT/SGPT) 40, Alkaline Phosphatase 99, Troponin I 0.030H, Total Protein 5.8L, Albumin 2.6L 09/30/19 04:18: Blood Gas Puncture Site RIGHT RADIAL, Blood Gas Patient Temperature 36.0, Arteri al Blood pH 7.50H, Arterial Blood Partial Pressure CO2 39, Arterial Blood Partial Pressure O2 62L, Arterial Blood HCO3 30H, Arterial Blood Total CO2 31.4H , Arterial Blood Oxygen Saturation 91L, Arterial Blood Base Excess 6.5H, Jame Test YES-POS, Blood Gas Ventilator Setting YES, Blood Gas Inspired Oxygen 55% 09/30/19 06:28: Glucometer 220H 09/30/19 11:36: Glucometer 239H Microbiology 09/26/19 Blood Culture - Preliminary, Resulted No growth 09/20/19 Mycobacterial Culture - Preliminary, Resulted A/P: Assessment/Dx: Acute resp failure, ARDS, likely due to COPD exacerbated by aspiration pneumonia Acute renal failure, likely ATN due to hypotension due to sepsis Hyperkalemia/hypermag likely secondary to renal failure PAF/flutter, currently NSR Hypotension due to sepsis and propofol (post-intubation) Elevated troponin - likely type 2 [place] d/t hypoxia Card cath of 09/07/18: minimal CAD, LVEF 70-75%, elevated LVEDP Echo of 09/20/19: LVEF 50-55%, RVSP 35 mmHg H/o opiate addiction ETOH abuse Chronic tobacco use Fam h/o early CAD Hyperlipidemia Borderline DM II (fasting blood glucose on 09/07/18) Carotid u/s on 01/05/19: no significant dz Plan: Plan: * Prognosis guarded * ARDS, requiring high PEEP and FiO2. PEEP today 8 but FiO2 70%. * D/c dig, continue amiodarone via NGT * Monitor lab closely * amlodipine 5 mg via OG tube. Thank you for your consultation. Please call me if you have any questions. Taz Velazco MD, FACP, FACC, FSCAI, FHRS, CCDS Interventional Cardiology Cardiac Electrophysiology Vascular Medicine and Endovascular Interventions Focused Exam Lactate Level 09/30/19 00:34: Lactic Acid Level 0.60 Graciela VELAZCO MD Sep 30, 2019 17:44
[2019-09-30] MEDS ORDERED: guaiFENesin SYRUP 100 MG/5 ML 10 ML (ROBITUSSIN SF) PO SCH (21:00)
[2019-09-30] MEDS: FAMOTIDINE 20 MG (PEPCID) TABLET GT SCH (21:39)
[2019-09-30] MEDS: DILTIAZEM 125 MG/NS 100 ML IV SCH ×2 (23:29)
[2019-09-30] MEDS: MIDAZOLAM DRIP 50 MG/NS 90 ML IV SCH ×2 (23:30)
[2019-09-30] MEDS: fentaNYL 1,250 MCG/NS 250 ML DRIP IV SCH ×2 (23:30)
[2019-10-01] VITALS (30 sets, daily range): BP systolic 69–173; BP diastolic 62–86
[2019-10-01] MEDS: hydrALAZINE (APRESOLINE) 25 MG TAB PO SCH ×6 (00:43→21:12)
[2019-10-01] MEDS: PIPERACILLIN/TAZOBACTAM (BULK) 4.5 GM in NS (IVPB) 100 ML IV SCH ×3 (00:43→16:38)
[2019-10-01] MEDS: inSUlin ASPART (NovoLOG) 1 UNIT/0.01 ML (CHARGE PER UNIT) SC SCH ×4 (01:09→18:47)
[2019-10-01] MEDS: DEXMEDETOMIDINE 1,000 MCG/NS 250 ML IV SCH ×8 (01:11→21:26)
--- NOTE | 2019-10-01 03:00 | NUR ---
This RN notified EICU that patient's central line bled through pressure dressing that was applied on 09/30/19. New order received to consult surgery. Dr. Piña onsite and assessed patient's central line, which had ceased bleeding at this time. New dressing applied. Will continue to monitor.
[2019-10-01] MEDS: RT-ALBUTEROL/IPRATROPIUM 3 ML (DUONEB) VIAL INH SCH ×6 (03:10→23:03)
[2019-10-01 03:28] LABS: ABG BASE EXCESS 8.8 MMOL/L (-2.5-2.5); ABG OXYGEN SATURATION 98 % (94-100); ABG PCO2 45 MMHG (35-45); ABG PH 7.47 (7.37-7.43); ABG PO2 101 MMHG (79-93); ABG TCO2 34.4 MMOL/L (21.0-31.0)
[2019-10-01 03:28] LABS: BASOPHILS % (AUTO) 0 % (0-10); EOSINOPHILS % (AUTO) 0 % (0-10); HEMATOCRIT 29 % (35-52); HEMOGLOBIN 9.3 G/DL (11.5-16.0); LYMPHOCYTES # (AUTO) 0.5 X 10^3 (1.0-4.0); LYMPHOCYTES % (AUTO) 6 % (12-44); MEAN CORPUSCULAR HEMOGLOBIN 32 PG (25-34); MEAN CORPUSCULAR HGB CONC 33 G/DL (32-36); MEAN CORPUSCULAR VOLUME 99 FL (80-99); MEAN PLATELET VOLUME 9.7 FL (7.4-10.4); MONOCYTES # (AUTO) 0.3 X 10^3 (0.0-1.0); MONOCYTES % (AUTO) 3 % (0-12); NEUTROPHILS # (AUTO) 8.7 X 10^3 (1.8-7.8); NEUTROPHILS % (AUTO) 92 % (42-75); PLATELET COUNT 321 10^3/uL (130-400); RED CELL DISTRIBUTION WIDTH 15.2 % (10.0-14.5); WHITE BLOOD COUNT 9.5 10^3/uL (4.3-11.0)
[2019-10-01 03:36] LABS: ALLENS TEST YES-POS; INSPIRED O2 75%; PATIENT TEMP 36.2; VENTILATOR YES
[2019-10-01 03:44] LABS: CALCIUM 8.5 MG/DL (8.5-10.1); CREATININE SERUM 1.05 MG/DL (0.60-1.30); POTASSIUM 3.7 MMOL/L (3.6-5.0)
--- NOTE | 2019-10-01 03:52 | Consultation - Surgery ---
History of Present Illness History of Present Illness Patient Consulted On(rosmery/time) 10/01/19 03:46 Time Seen by Provider: 03:39 History of Present Illness Surgery asked to consult regarding bleeding around central line. HPI per IM: Helene is a 54 y/o female that presented to via [facility] due to altered mental status. The following information was obtained from ER chart. Patient is currently intubated and sedated and has no family at the bedside at this time. She was brought in via EMS and was reportedly found at home after two days of no contact. She was unresponsive and was sitting in urine. There is concern of alcohol and narcotic use. She currently smokes 3 packs of cigarettes a day. She arrived to the ER with a fever and was hypoxic. The patient is requiring intubation and FiO2 of 100%. She received both chest CT and X-ray. Chest CT is showing extensive airspace consolidation with the right middle lobe, right lower lobe, left lower lobe possibly related to aspiration, pneumonia, or other alveolar consolidative processes.Chest X-ray showed nonspecific bibasilar airspace consolidation with probable bilateral pleural effusions. Pt is intubated and sedated. According to the nurse her central line has continuously "oozed" for the past two day. They have tried pressure, bolstered with 4x4 and some type of powder to stop bleeding. The dressing held all day today, until tonight; when blood started leaking from under dressing and pooling in her neck. Allergies and Home Medications Allergies Coded Allergies: No Known Drug Allergies (Unverified , 04/29/19) Home Medications Albuterol Sulfate 18 Gm Hfa.aer.ad, 2 PUFF INH Q4H PRN for SHORTNESS OF BREATH, (Reported) Aspirin 81 Mg Tab.chew, 81 MG PO DAILY, (Reported) LAST FILLED #36 07-29-19 Atorvastatin Calcium 40 Mg Tablet, 40 MG PO HS, (Reported) Buprenorphine HCl/Naloxone HCl 1 Each Film, 1 FILM SL TID, (Reported) Clorazepate Dipotassium 3.75 Mg Tablet, 3.75 MG PO TID PRN for ANXIETY, (Reported) Fluoxetine HCl 10 Mg Tablet, 10 MG PO DAILY, (Reported) LAST FILLED #30 07-18-19 Fluticasone/Salmeterol 1 Each Blst.w.dev, 1 PUFF IH BID, (Reported) LAST FILLED 07-30-19 #60 Furosemide 40 Mg Tablet, 40 MG PO DAILY, (Reported) LAST FILLED #30 04-29-19 Gabapentin 600 Mg Tablet, 600 MG PO TID, (Reported) Ipratropium/Albuterol Sulfate 3 Ml Ampul.neb, 3 ML NEB QID PRN for SHORTNESS OF BREATH, (Reported) Lisinopril/Hydrochlorothiazide 1 Each Tablet, 1 TAB PO BID, (Reported) LAST FILLED #60 07-08-19 Metolazone 2.5 Mg Tablet, 2.5 MG PO MoTh PRN for SWELLING, (Reported) Metoprolol Tartrate 100 Mg Tablet, 150 MG PO BID, (Reported) LAST FILLED #90 08-05-19 Ondansetron 4 Mg Tab.rapdis, 4 MG PO Q4H PRN for NAUSEA/VOMITING-1ST LINE, (Reported) Potassium Chloride 20 Meq Tablet.er, 20 MEQ PO DAILY, (Reported) Pregabalin 150 Mg Capsule, 150 MG PO BID, (Reported) Tiotropium [place] 4 Gm Mist.inhal, 1-2 PUFF INH DAILY, (Reported) Patient Home Medication List Home Medication List Reviewed: Yes Past Nlijrjt-Ufjqsl-Kzoasg Hx Patient Social History Alcohol Use: Regular Use Number of Drinks Today: 0 Recreational Drug Use: No Smoking Status: Current Everyday Smoker Type Used: Cigarettes 2nd Hand Smoke Exposure: Yes Recent Foreign Travel: No Contact w/Someone Who Travel: No Recent Infectious Disease Expo: No Recent Hopitalizations: Yes (PLANTAR FASCITIS) Immunizations Up To Date Tetanus Booster (TDap): Unknown Surgeries History of Surgeries: Yes Surgeries: Hysterectomy Respiratory History of Respiratory Disorde: Yes Respiratory Disorders: Pneumonia, Chronic Bronchitis, COPD Cardiovascular History of Cardiac Disorders: Yes Cardiac Disorders: Hypertension Neurological History of Neurological Disord: No 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 System Hx 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 Disorders: Yes Sexually Transmitted Disease: No HIV/AIDS: No Female 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 Disorders: Denies Gastrointestinal History of Gastrointestinal Di: Yes Gastrointestinal Disorders: Gastroesophageal Reflux Musculoskeletal History of Musculoskeletal Dis: No Endocrine History of Endocrine Disorders: No Cancer History of Cancer: No Psychosocial History of Psychiatric Problem: Yes Behavioral Health Disorders: Bipolar, Depression Blood Transfusions History of Blood Disorders: No Adverse Reaction to a Blood Tr: No Family Medical History Significant Family History: Heart Disease, Hypertension Family Medial History: Cerebrovascular accident (CVA) 19 FATHER, Onset:60 years & older FH: testicular cancer G8 BROTHER, Onset:30's - 40 Hypertension 19 FATHER, Onset:Unknown 19 MOTHER, Onset:Unknown G8 BROTHER, Onset:Unknown G8 BROTHER, Onset:Unknown Myocardial infarction 19 FATHER, Onset:40's - 50 Review of Systems-General ROS-Unable to Obtain: pt sedated on vent Physical Exam-General Problems Physical Exam Vital Signs Vital Signs - First Documented 09/25/19 00:00 Temp 35.8 Pulse 76 Resp 19 B/P (MAP) 154/71 (98) Pulse Ox 94 O2 Delivery Mechanical Ventilator O2 Flow Rate 75.00 FiO2 75 Capillary Refill : Less Than 3 Seconds General Appearance: WD/WN HEENT: other (took down dressing and looked at central line, currently not bleeding) Respiratory: no respiratory distress, no accessory muscle use, decreased breath sounds, crackles Cardiovascular: regular rate, rhythm, no murmur Gastrointestinal: soft, no organomegaly, no pulsatile mass Skin: normal color, warm/dry Data Review Labs Laboratory Tests 09/30/19 04:18: Blood Gas Puncture Site RIGHT RADIAL, Blood Gas Patient Temperature 36.0, Arterial Blood pH 7.50H, Arterial Blood Partial Pressure CO2 39, Arterial Blood Partial Pressure O2 62L, Arterial Blood HCO3 30H, Arterial Blood Total CO2 31.4H , Arterial Blood Oxygen Saturation 91L, Arterial Blood Base Excess 6.5H, Jame Test YES-POS, Blood Gas Ventilator Setting YES, Blood Gas Inspired Oxygen 55% 09/30/19 06:28: Glucometer 220H 09/30/19 11:36: Glucometer 239H 09/30/19 18:02: Glucometer 174H 10/01/19 00:54: Glucometer 244H 10/01/19 03:15: Blood Gas Puncture Site RIGHT RADIAL, Blood Gas Patient Temperature 36.2, Arterial Blood pH 7.47H, Arterial Blood Partial Pressure CO2 45, Arterial Blood Partial Pressure O2 101H, Arterial Blood HCO3 33H, Arterial Blood Total CO2 34.4H, Arterial Blood Oxygen Saturation 98, Arterial Blood Base Excess 8.8H, Jame Test YES-POS, Blood Gas Ventilator Setting YES, Blood Gas Inspired Oxygen 75% 10/01/19 03:20: White Blood Count 9.5, Red Blood Count 2.89L, Hemoglobin 9.3L, Hematocrit 29L, Mean Corpuscular Volume 99, Mean Corpuscular Hemoglobin 32, Mean Corpuscular Hemoglobin Concent 33, Red Cell Distribution Width 15.2H, Platelet Count 321, Mean Platelet Volume 9.7, Neutrophils (%) (Auto) 92H, Lymphocytes (%) (Auto) 6L, Monocytes (%) (Auto) 3, Eosinophils (%) (Auto) 0, Basophils (%) (Auto) 0, Neutrophils # (Auto) 8.7H, Lymphocytes # (Auto) 0.5L, Monocytes # (Auto) 0.3, Eosinophils # (Auto) 0.0, Basophils # (Auto) 0.0, Sodium Level 141, Potassium Level 3.7, Chloride Level 100, Carbon Dioxide Level 26, Anion Gap 15H, Blood Urea Nitrogen 34H, Creatinine 1.05, Estimat Glomerular Filtration Rate 55, BUN/Creatinine Ratio 32, Glucose Level 216H, Calcium Level 8.5 Microbiology 09/26/19 Blood Culture - Preliminary, Resulted No growth 09/20/19 Mycobacterial Culture - Preliminary, Resulted Assessment/Plan Assessment/Plan Assessment/Plan Bleeding Central Line Respiratory Failure I was asked to look at central line, because it has not stopped bleeding for past 2 days. However, it was not bleeding when I took dressing down. I suggest pressure (manual and not sandbag) if it bleeds again; could also try suture if need be. Thank you for this consult. I can reconsult if anything changes. Clinical Quality Measures DVT/VTE Risk/Contraindication: Risk Factor Score Per Nursin RFS Level Per Nursing on Admit: 4+=Very High CARINE MARTIN DO Oct 01, 2019 03:52
[2019-10-01] MEDS: guaiFENesin SYRUP 100 MG/5 ML 10 ML (ROBITUSSIN SF) PO SCH ×3 (06:10→22:39)
[2019-10-01] MEDS ORDERED: KCL 20 MEQ POWDER FOR ORAL SOLUTION ONE (06:25)
[2019-10-01] MEDS: CALCIUM ACETATE 667 MG CAP (PHOSLO) PO SCH ×3 (06:32→16:38)
[2019-10-01] MEDS: ENOXAPARIN 100 MG/1 ML (LOVENOX) SYR SC SCH ×2 (06:33→18:47)
[2019-10-01] MEDS: POTASSIUM CL 10MEQ/50ML IVPB 50 ML IV SCH (06:34)
[2019-10-01] MEDS: MAGNESIUM 1 GM/100 ML IVPB 100 ML IV SCH ×3 (06:35→18:42)
[2019-10-01] MEDS: KCL 20 MEQ TAB (K-DUR) PO SCH (06:35)
[2019-10-01] MEDS: aCETylcysteine 20% (MUCOMYST) 30ML SOLN VIAL INH SCH ×5 (06:40→23:04)
[2019-10-01] MEDS ORDERED: KCL 20 MEQ POWDER FOR ORAL SOLUTION NG ONE (06:45)
--- NOTE | 2019-10-01 06:45 | NUR ---
This RN notified Dr. Piña that patient's central line dressing had saturated current dressing. Manual pressure applied for 5 minutes, per Dr. Piña. New pressure dressing applied. Will continue to monitor.
--- NOTE | 2019-10-01 07:30 | Diagnostic Imaging Report ---
EXAMINATION: Chest radiograph, portable AP view. DATE: 10/01/2019 1:58 AM hours. INDICATION: 54-year-old female, dyspnea. COMPARISON: September 30, 2019. FINDINGS: The endotracheal tube is approximately 4.4 cm above the jhon. The nasogastric tube overlies the stomach. Right internal jugular central venous line overlies the mid SVC. Stable overall appearance of the cardiomediastinal silhouette. There is no identified pneumothorax. There is unchanged predominantly mid and lower lung zone consolidation bilaterally. IMPRESSION: 1. Unchanged predominantly mid and lower lung zone consolidation bilaterally with possible bilateral pleural effusions. 2. Support lines and tubes as above. Dictated by: Dictated on workstation # [id number]
--- NOTE | 2019-10-01 08:25 | Physical Therapy Progress Note ---
Therapy Progress Note Pt remains intubated and sedated. PT will monitor and eval when indicated. YOSI SIMS DPPrabhakar Oct 01, 2019 08:25
[2019-10-01] MEDS: AMIODARONE 200 MG (CORDARONE) TAB NG SCH ×2 (09:23→21:12)
[2019-10-01] MEDS: BUMETANIDE 1 MG/4 ML (BUMEX) VIAL IV SCH ×2 (09:23→21:12)
[2019-10-01] MEDS ORDERED: VANCOMYCIN 1,750 MG/NS 500 ML IVPB IV SCH ×2 (10:00)
--- NOTE | 2019-10-01 12:35 | Progress Note - Hospitalist ---
Subjective HPI/CC On Admission Date Seen by Provider: Oct 01, 2019 Time Seen by Provider: 07:45 Helene is a 54 y/o female that presented to via [facility] due to altered mental status. The following information was obtained from ER chart. Patient is currently intubated and sedated and has no family at the bedside at this time. She was brought in via EMS and was reportedly found at home after two days of no contact. She was unresponsive and was sitting in urine. There is concern of alcohol and narcotic use. She currently smokes 3 packs of cigarettes a day. She arrived to the ER with a fever and was hypoxic. The patient is requiring intubation and FiO2 of 100%. She received both chest CT and X-ray. Chest CT is showing extensive airspace consolidation with the right middle lobe, right lower lobe, left lower lobe possibly related to aspiration, pneumonia, or other alveolar consolidative processes.Chest X-ray showed nonspecific bibasilar airspace consolidation with probable bilateral pleural effusions. Subjective/Events-last exam she remains intubated and sedated. There is no family at the bedside. Focused Exam Lactate Level 09/30/19 00:34: Lactic Acid Level 0.60 Objective Exam Vital Signs Vital Signs Date Time Temp Pulse Resp B/P (MAP) Pulse Ox O2 Delivery O2 Flow Rate FiO2 10/01/19 12:30 68 10/01/19 12:00 36.2 10/01/19 11:59 Mechanical Ventilator 70 10/01/19 11:36 18 95 10/01/19 11:00 160/72 (101) 75.00 Capillary Refill : Less Than 3 Seconds General Appearance: No Apparent Distress, WD/WN, Obese, Other (intubated and sedated) Respiratory: No Respiratory Distress, Other (coarse breath sounds, mechanically ventilated) Cardiovascular: Regular Rate, Rhythm, No Murmur Gastrointestinal: Normal Bowel Sounds, Soft; No Distended Extremity: Normal Inspection, Pedal Edema, Swelling Neurologic/Psychiatric: Other (sedated) Skin: Normal Color, Warm/Dry Results/Procedures Lab Laboratory Tests 10/01/19 03:20 Patient resulted labs reviewed. Imaging: Reviewed Imaging Report Assessment/Plan Assessment and Plan Assess & Plan/Chief Complaint ARDS Acute respiratory failure with hypoxia Endotracheally intubated COPD with acute exacerbation Poor prognosis EICU managing vent Continue Bumex Broch culture grew Pseudomonas Continue Zosyn Continue steroids AFIB/Flutter with RVR Continue Lovenox, pharmacy dosing Continue amiodarone Cardiology consulted, appreciate recs RLE DVT Lovenox GIOVANNI Improved, continue to monitor Steroid-induced hyperglycemia - Continue Levemir, no known diagnosis of DM - SSI Alcohol abuse Clinically significant, in no acute management needs Morbid obesity Clinically significant, no acute management needs Critical Care Critically Ill Patient Diagnosis/Problems Diagnosis/Problems (1) ARDS (adult respiratory distress syndrome) Status: Acute (2) Poor prognosis Status: Acute Clinical Quality Measures DVT/VTE Risk/Contraindication: Risk Factor Score Per Nursin RFS Level Per Nursing on Admit: 4+=Very High ACE DIAMOND MD Oct 01, 2019 12:35
--- NOTE | 2019-10-01 13:49 | Cardiology Progress Note ---
Cardiology SOAP Progress Note Subjective: Intubated/ventilated Objective: I&O/Vital Signs 10/01/19 10/01/19 10/01/19 10/01/19 02:00 03:00 03:11 03:14 Pulse 90 82 78 Resp 19 B/P (MAP) 143/62 (89) 150/69 (96) 150/69 Pulse Ox 95 96 97 O2 Delivery Mechanical Ventilator Mechanical Ventilator O2 Flow Rate 75.00 75.00 FiO2 75 10/01/19 10/01/19 10/01/19 10/01/19 04:00 04:00 04:00 05:00 Temp 36.2 Pulse 79 76 Resp 18 18 B/P (MAP) 155/74 (101) 158/78 (104) Pulse Ox 93 95 O2 Delivery Mechanical Ventilator Mechanical Ventilator Mechanical Ventilator O2 Flow Rate 75.00 75.00 FiO2 70 10/01/19 10/01/19 10/01/19 10/01/19 05:36 06:00 06:49 07:00 Pulse 70 64 65 Resp 14 18 B/P (MAP) 163/79 165/79 (107) Pulse Ox 96 95 O2 Delivery Mechanical Ventilator O2 Flow Rate 75.00 FiO2 70 10/01/19 10/01/19 10/01/19 10/01/19 07:00 08:00 08:00 09:00 Pulse 66 72 68 Resp 17 17 25 B/P (MAP) 165/75 (105) 161/82 (108) 159/80 (106) Pulse Ox 94 96 97 O2 Delivery Mechanical Ventilator Mechanical Ventilator Mechanical Ventilator Mechanical Ventilator O2 Flow Rate 75.00 75.00 75.00 FiO2 70 10/01/19 10/01/19 10/01/19 10/01/19 09:23 10:00 10:53 11:00 Pulse 69 65 Resp 34 B/P (MAP) 155/73 155/76 (102) 157/75 160/72 (101) Pulse Ox 95 94 O2 Delivery Mechanical Ventilator Mechanical Ventilator O2 Flow Rate 75.00 75.00 10/01/19 10/01/19 10/01/19 10/01/19 11:36 11:59 12:00 12:00 Temp 36.2 Pulse 67 69 Resp 18 B/P (MAP) 163/73 (103) Pulse Ox 95 94 O2 Delivery Mechanical Ventilator Mechanical Ventilator O2 Flow Rate 75.00 FiO2 70 70 10/01/19 10/01/19 10/01/19 12:30 13:00 13:31 Pulse 68 85 Resp 35 B/P (MAP) 153/69 (97) 153/70 Pulse Ox 93 O2 Delivery Mechanical Ventilator O2 Flow Rate 75.00 09/30/19 23:59 Intake Total 1350 ml Output Total 1550 ml Balance -200 ml Weight (Pounds): 218 Weight (Ounces): 0.0 Weight (Calculated Kilograms): 98.552726 Constitutional: well-developed, well-nourished, other (intubated and sedated) Respiratory: No accessory muscle use, No respiratory distress; chest expansion is symmetric, other (fair air entry; intubated) Cardiovascular: regular rate-rhythm; No JVD; S1 and S2 Gastrointestional: audible bowel sounds Extremities: other (mod bilat LE swelling) Neurologic/Psychiatric: other (intubated/ventilated) Skin: warm/dry Results/Procedures: Labs Laboratory Tests 09/30/19 18:02: Glucometer 174H 10/01/19 00:54: Glucometer 244H 10/01/19 03:15: Blood Gas Puncture Site RIGHT RADIAL, Blood Gas Patient Temperature 36.2, Arterial Blood pH 7.47H, Arterial Blood Partial Pressure CO2 45, Arterial Blood Partial Pressure O2 101H, Arterial Blood HCO3 33H, Arterial Blood Total CO2 34.4H, Arterial Blood Oxygen Saturation 98, Arterial Blood Base Excess 8.8H, Jame Test YES-POS, Blood Gas Ventilator Setting YES, Blood Gas Inspired Oxygen 75% 10/01/19 03:20: White Blood Count 9.5, Red Blood Count 2.89L, Hemoglobin 9.3L, Hematocrit 29L, Mean Corpuscular Volume 99, Mean Corpuscular Hemoglobin 32, Mean Corpuscular Hemoglobin Concent 33, Red Cell Distribution Width 15.2H, Platelet Count 321, Mean Platelet Volume 9.7, Neutrophils (%) (Auto) 92H, Lymphocytes (%) (Auto) 6L, Monocytes (%) (Auto) 3, Eosinophils (%) (Auto) 0, Basophils (%) (Auto) 0, Neutrophils # (Auto) 8.7H, Lymphocytes # (Auto) 0.5L, Monocytes # (Auto) 0.3, Eosinophils # (Auto) 0.0, Basophils # (Auto) 0.0, Sodium Level 141, Potassium Level 3.7, Chloride Level 100, Carbon Dioxide Level 26, Anion Gap 15H, Blood Urea Nitrogen 34H, Creatinine 1.05, Estimat Glomerular Filtration Rate 55, BUN/Creatinine Ratio 32, Glucose Level 216H, Calcium Level 8.5, Magnesium Level 1.8 10/01/19 11:32: Glucometer 131H Microbiology 09/30/19 Gram Stain - Final, Resulted 09/30/19 Sputum Culture - Preliminary, Resulted Pseudomonas aeruginosa 09/26/19 Blood Culture - Preliminary, Resulted No growth A/P: Assessment/Dx: Acute resp failure, ARDS, likely due to COPD exacerbated by aspiration pneumonia Acute renal failure, likely ATN due to hypotension due to sepsis Hyperkalemia/hypermag likely secondary to renal failure PAF/flutter, currently NSR Hypotension due to sepsis and propofol (post-intubation) Elevated troponin - likely type 2 [place] d/t hypoxia Card cath of 09/07/18: minimal CAD, LVEF 70-75%, elevated LVEDP Echo of 09/20/19: LVEF 50-55%, RVSP 35 mmHg H/o opiate addiction ETOH abuse Chronic tobacco use Fam h/o early CAD Hyperlipidemia Borderline DM II (fasting blood glucose on 09/07/18) Carotid u/s on 01/05/19: no significant dz Plan: Plan: * Prognosis guarded * ARDS, requiring high PEEP and FiO2. PEEP today 8 but FiO2 70%. * D/c dig, continue amiodarone via NGT * Monitor lab closely * amlodipine 5 mg via OG tube. Thank you for your consultation. Please call me if you have any questions. Taz Velazco MD, FACP, FACC, FSCAI, FHRS, CCDS Interventional Cardiology Cardiac Electrophysiology Vascular Medicine and Endovascular Interventions Focused Exam Lactate Level 09/30/19 00:34: Lactic Acid Level 0.60 Graciela VELAZCO MD Oct 01, 2019 13:49
[2019-10-01] MEDS ORDERED: MAGNESIUM 1 GM/100 ML IVPB 100 ML IV ONE (17:30)
[2019-10-01] MEDS: methylPREDNISolone 125 MG (Solu-MEDROL) VIAL IV SCH (17:41)
[2019-10-01] MEDS: FAMOTIDINE 20 MG (PEPCID) TABLET GT SCH (21:12)
[2019-10-01] MEDS: fentaNYL INJECTION 100 MCG/2 ML AMP IVP PRN (22:39)
[2019-10-02] VITALS (28 sets, daily range): BP systolic 134–180; BP diastolic 60–88
[2019-10-02] MEDS: hydrALAZINE (APRESOLINE) 25 MG TAB PO SCH ×6 (00:25→20:49)
[2019-10-02] MEDS: PIPERACILLIN/TAZOBACTAM (BULK) 4.5 GM in NS (IVPB) 100 ML IV SCH ×3 (00:26→15:48)
[2019-10-02] MEDS: inSUlin ASPART (NovoLOG) 1 UNIT/0.01 ML (CHARGE PER UNIT) SC SCH ×4 (00:26→18:25)
[2019-10-02] MEDS: RT-ALBUTEROL/IPRATROPIUM 3 ML (DUONEB) VIAL INH SCH ×6 (02:36→21:21)
[2019-10-02] MEDS: aCETylcysteine 20% (MUCOMYST) 30ML SOLN VIAL INH SCH ×6 (02:36→21:21)
[2019-10-02 03:47] LABS: ABG BASE EXCESS 8.8 MMOL/L (-2.5-2.5); ABG OXYGEN SATURATION 97 % (94-100); ABG PCO2 45 MMHG (35-45); ABG PH 7.48 (7.37-7.43); ABG PO2 85 MMHG (79-93); ABG TCO2 34.3 MMOL/L (21.0-31.0); ALLENS TEST YES-POS; INSPIRED O2 60%; VENTILATOR YES
[2019-10-02] MEDS: DEXMEDETOMIDINE 1,000 MCG/NS 250 ML IV SCH ×8 (03:47→22:08)
[2019-10-02 03:48] LABS: BASOPHILS % (AUTO) 0 % (0-10); EOSINOPHILS % (AUTO) 0 % (0-10); HEMATOCRIT 28 % (35-52); HEMOGLOBIN 9.1 G/DL (11.5-16.0); LYMPHOCYTES # (AUTO) 0.5 X 10^3 (1.0-4.0); LYMPHOCYTES % (AUTO) 5 % (12-44); MEAN CORPUSCULAR HEMOGLOBIN 32 PG (25-34); MEAN CORPUSCULAR HGB CONC 33 G/DL (32-36); MEAN CORPUSCULAR VOLUME 97 FL (80-99); MEAN PLATELET VOLUME 9.3 FL (7.4-10.4); MONOCYTES # (AUTO) 0.2 X 10^3 (0.0-1.0); MONOCYTES % (AUTO) 2 % (0-12); NEUTROPHILS % (AUTO) 93 % (42-75); PATIENT TEMP 36.4; PLATELET COUNT 338 10^3/uL (130-400); RED CELL DISTRIBUTION WIDTH 14.9 % (10.0-14.5); WHITE BLOOD COUNT 10.7 10^3/uL (4.3-11.0)
[2019-10-02 03:52] LABS: INR 0.9 (0.8-1.4); PROTHROMBIN TIME PATIENT 12.9 SEC (12.2-14.7)
[2019-10-02 04:02] LABS: CALCIUM 9.2 MG/DL (8.5-10.1); CREATININE SERUM 1.04 MG/DL (0.60-1.30); MAGNESIUM 2.2 MG/DL (1.6-2.4); PHOSPHORUS 4.6 MG/DL (2.3-4.7)
[2019-10-02] MEDS: KCL 20 MEQ TAB (K-DUR) PO SCH (04:54)
[2019-10-02] MEDS: POTASSIUM CL 10MEQ/50ML IVPB 50 ML IV SCH (04:54)
[2019-10-02] MEDS: guaiFENesin SYRUP 100 MG/5 ML 10 ML (ROBITUSSIN SF) PO SCH ×3 (05:15→20:40)
[2019-10-02] MEDS: ENOXAPARIN 100 MG/1 ML (LOVENOX) SYR SC SCH ×2 (05:30→18:06)
[2019-10-02] MEDS: CALCIUM ACETATE 667 MG CAP (PHOSLO) PO SCH ×3 (05:30→16:35)
--- NOTE | 2019-10-02 08:07 | Diagnostic Imaging Report ---
INDICATION: Dyspnea. Time of exam: 3:42 AM Correlation is made with prior chest from 1 day earlier. ET tube has tip above the jhon. NG tube passes below the diaphragm. There continues to be some consolidation in both bases, left greater. There appear to be bilateral effusions. There is central congestion. No pneumothorax is seen. IMPRESSION: Stable chest since one day earlier. Dictated by: Dictated on workstation # [id number]
[2019-10-02] MEDS: BUMETANIDE 1 MG/4 ML (BUMEX) VIAL IV SCH ×2 (09:02→20:49)
[2019-10-02] MEDS: AMIODARONE 200 MG (CORDARONE) TAB NG SCH ×2 (09:03→20:49)
--- NOTE | 2019-10-02 11:05 | Progress Note - Hospitalist ---
Subjective HPI/CC On Admission Date Seen by Provider: Oct 02, 2019 Time Seen by Provider: 07:00 Helene is a 54 y/o female that presented to via [facility] due to altered mental status. The following information was obtained from ER chart. Patient is currently intubated and sedated and has no family at the bedside at this time. She was brought in via EMS and was reportedly found at home after two days of no contact. She was unresponsive and was sitting in urine. There is concern of alcohol and narcotic use. She currently smokes 3 packs of cigarettes a day. She arrived to the ER with a fever and was hypoxic. The patient is requiring intubation and FiO2 of 100%. She received both chest CT and X-ray. Chest CT is showing extensive airspace consolidation with the right middle lobe, right lower lobe, left lower lobe possibly related to aspiration, pneumonia, or other alveolar consolidative processes.Chest X-ray showed nonspecific bibasilar airspace consolidation with probable bilateral pleural effusions. Subjective/Events-last exam She remains intubated and sedated. There is no family at bedside. Focused Exam Lactate Level 09/30/19 00:34: Lactic Acid Level 0.60 Objective Exam Vital Signs Vital Signs Date Time Temp Pulse Resp B/P (MAP) Pulse Ox O2 Delivery O2 Flow Rate FiO2 10/02/19 10:41 81 18 96 60 10/02/19 10:00 172/77 (108) Mechanical Ventilator 65.00 10/02/19 07:16 36.9 Capillary Refill : Less Than 3 Seconds General Appearance: No Apparent Distress, Other (Intubated and sedated) Respiratory: No Respiratory Distress, Other (Coarse breath sounds, mechanically ventilated) Cardiovascular: Regular Rate, Rhythm, No Murmur Gastrointestinal: Normal Bowel Sounds, Non Tender, Soft Extremity: Normal Inspection, Swelling Neurologic/Psychiatric: Other (And sedated) Skin: Warm/Dry, Pallor Results/Procedures Lab Laboratory Tests 10/02/19 03:24 Patient resulted labs reviewed. Imaging: Reviewed Imaging Report Assessment/Plan Assessment and Plan Assess & Plan/Chief Complaint ARDS Acute respiratory failure with hypoxia Endotracheally intubated COPD with acute exacerbation Poor prognosis EICU managing vent, weaning oxygen as able Continue Bumex Broch culture grew Pseudomonas Continue Zosyn Continue steroids AFIB/Flutter with RVR Continue Lovenox, pharmacy dosing Continue amiodarone Cardiology consulted, appreciate recs RLE DVT Lovenox Steroid-induced hyperglycemia Increase Levemir SSI Alcohol abuse Clinically significant, in no acute management needs Morbid obesity Clinically significant, no acute management needs GIOVANNI, resolved Critical Care Critically Ill Patient Diagnosis/Problems Diagnosis/Problems (1) ARDS (adult respiratory distress syndrome) Status: Acute (2) Poor prognosis Status: Acute Clinical Quality Measures DVT/VTE Risk/Contraindication: Risk Factor Score Per Nursin RFS Level Per Nursing on Admit: 4+=Very High ACE DIAMOND MD Oct 02, 2019 11:05
--- NOTE | 2019-10-02 13:18 | Progress Note - Surgery ---
Subjective Time Seen by a Provider: 12:24 Subjective/Events-last exam Pt seen and examined, sedated on vent. Review of Systems unable to obtain Focused Exam Lactate Level 09/30/19 00:34: Lactic Acid Level 0.60 Objective Exam Vital Signs Date Time Temp Pulse Resp B/P (MAP) Pulse Ox O2 Delivery O2 Flow Rate FiO2 10/02/19 12:10 93 10/02/19 12:00 88 21 168/78 (108) 95 Mechanical Ventilator 65.00 10/02/19 11:38 36.2 10/02/19 11:09 162/71 10/02/19 11:00 88 18 162/71 (101) 93 Mechanical Ventilator 65.00 10/02/19 10:41 81 18 96 60 10/02/19 10:00 81 18 172/77 (108) 96 Mechanical Ventilator 65.00 10/02/19 09:02 172/80 10/02/19 09:00 76 17 172/80 (110) 96 Mechanical Ventilator 65.00 10/02/19 08:00 77 35 173/78 (109) 95 Mechanical Ventilator 65.00 10/02/19 07:57 Mechanical Ventilator 60 10/02/19 07:16 36.9 10/02/19 07:00 77 173/79 (110) 95 Mechanical Ventilator 65.00 10/02/19 07:00 81 10/02/19 06:49 74 27 96 60 10/02/19 06:00 74 170/77 (108) 96 Mechanical Ventilator 65.00 10/02/19 05:15 160/74 10/02/19 05:00 76 17 160/74 (102) 96 Mechanical Ventilator 65.00 10/02/19 04:00 Mechanical Ventilator 60 10/02/19 04:00 86 19 155/73 (100) 93 Mechanical Ventilator 65.00 10/02/19 03:00 91 17 167/80 (109) 94 Mechanical Ventilator 65.00 10/02/19 02:57 166/79 10/02/19 02:36 89 18 95 60 10/02/19 02:00 90 18 167/78 (107) 95 Mechanical Ventilator 65.00 10/02/19 01:00 86 10/02/19 01:00 85 20 167/79 (108) 94 Mechanical Ventilator 65.00 10/02/19 00:25 36.2 10/02/19 00:21 166/79 10/02/19 00:00 87 17 164/78 (106) 95 Mechanical Ventilator 65.00 10/02/19 00:00 Mechanical Ventilator 65 10/01/19 23:18 Mechanical Ventilator 65.00 10/01/19 23:03 79 18 94 65 10/01/19 23:00 81 15 159/76 (103) 95 Mechanical Ventilator 70.00 10/01/19 22:00 87 18 166/84 (111) 93 Mechanical Ventilator 70.00 10/01/19 21:34 182/92 10/01/19 21:00 85 20 173/83 (113) 92 Mechanical Ventilator 70.00 10/01/19 20:00 87 23 171/82 (111) 91 Mechanical Ventilator 70.00 10/01/19 20:00 35.8 10/01/19 20:00 Mechanical Ventilator 70 10/01/19 19:00 80 27 159/73 (101) 92 Mechanical Ventilator 70.00 10/01/19 19:00 80 10/01/19 19:00 84 10/01/19 18:24 73 19 93 70 10/01/19 18:00 72 159/74 (102) 93 Mechanical Ventilator 75.00 10/01/19 17:00 80 25 152/72 (98) 93 Mechanical Ventilator 75.00 10/01/19 16:38 151/68 10/01/19 16:24 Mechanical Ventilator 70 10/01/19 16:00 89 18 142/63 (89) 90 Mechanical Ventilator 75.00 10/01/19 16:00 36.2 10/01/19 15:00 86 157/72 (100) 92 Mechanical Ventilator 75.00 10/01/19 14:39 78 19 92 70 10/01/19 14:00 80 33 152/71 (98) 92 Mechanical Ventilator 75.00 10/01/19 13:31 153/70 I & O 10/02/19 07:00 Intake Total 2450 ml Output Total 3600 ml Balance -1150 ml Capillary Refill : Less Than 3 Seconds General Appearance: No Apparent Distress, Other (Intubated and sedated) HEENT: Other Neck: Supple, Other (Bleeding at site of right IJ, very slow ooze) Respiratory: No Respiratory Distress, Other (Coarse breath sounds, mechanically ventilated) Cardiovascular: Regular Rate, Rhythm, No Murmur Gastrointestinal: soft, no organomegaly, no pulsatile mass Extremity: Swelling Neurologic/Psychiatric: Other (And sedated) Skin: Warm/Dry, Pallor Results Lab Laboratory Tests 10/01/19 17:16: Glucometer 153H 10/01/19 20:35: Glucometer 192H 10/01/19 23:40: Glucometer 218H 10/02/19 03:24: White Blood Count 10.7, Red Blood Count 2.88L, Hemoglobin 9.1L, Hematocrit 28L, Mean Corpuscular Volume 97, Mean Corpuscular Hemoglobin 32, Mean Corpuscular Hemoglobin Concent 33, Red Cell Distribution Width 14.9H, Platelet Count 338, Mean Platelet Volume 9.3, Neutrophils (%) (Auto) 93H, Lymphocytes (%) (Auto) 5L, Monocytes (%) (Auto) 2, Eosinophils (%) (Auto) 0, Basophils (%) (Auto) 0, Neutrophils # (Auto) 10.0H, Lymphocytes # (Auto) 0.5L, Monocytes # (Auto) 0.2, Eosinophils # (Auto) 0.0, Basophils # (Auto) 0.0, Prothrombin Time 12.9, INR Comment 0.9, Activated Partial Thromboplast Time 35, Blood Gas Puncture Site RIGHT RADIAL, Blood Gas Patient Temperature 36.4, Arterial Blood pH 7.48H, Arterial Blood Partial Pressure CO2 45, Arterial Blood Partial Pressure O2 85, Arterial Blood HCO3 33H, Arterial Blood Total CO2 34.3H, Arterial Blood Oxygen Saturation 97, Arterial Blood Base Excess 8.8H, Jame Test YES-POS, Blood Gas Ve ntilator Setting YES, Blood Gas Inspired Oxygen 60%, Sodium Level 135, Potassium Level 4.0, Chloride Level 94L, Carbon Dioxide Level 27, Anion Gap 14, Blood Urea Nitrogen 31H, Creatinine 1.04, Estimat Glomerular Filtration Rate 55, BUN/Creatinine Ratio 30, Glucose Level 157H, Calcium Level 9.2, Phosphorus Level 4.6, Magnesium Level 2.2, Triglycerides Level 629H 10/02/19 11:38: Glucometer 167H Microbiology 09/30/19 Gram Stain - Final, Resulted 09/30/19 Sputum Culture - Preliminary, Resulted Pseudomonas aeruginosa 09/26/19 Blood Culture - Final, Complete No growth Assessment/Plan Assessment/Plan Assessment/Plan Bleeding Central Line Respiratory Failure Central line continues to ooze a very small amount; helped with pressure dressing. Most likely this is because of her being on Lovenox; would continue to manage with pressure bandages. Clinical Quality Measures DVT/VTE Risk/Contraindication: Risk Factor Score Per Nursin RFS Level Per Nursing on Admit: 4+=Very High CARINE MARTIN DO Oct 02, 2019 13:18
[2019-10-02] MEDS: hydrALAZINE (APESOLINE) 20 MG/ML VIAL IV PRN ×2 (13:45→22:13)
[2019-10-02] MEDS: methylPREDNISolone 125 MG (Solu-MEDROL) VIAL IV SCH (16:36)
--- NOTE | 2019-10-02 17:35 | Cardiology Progress Note ---
Cardiology SOAP Progress Note Subjective: Intubated, ventilated Objective: I&O/Vital Signs 10/02/19 10/02/19 10/02/19 10/02/19 06:00 06:49 07:00 07:00 Pulse 74 74 81 77 Resp 27 B/P (MAP) 170/77 (108) 173/79 (110) Pulse Ox 96 96 95 O2 Delivery Mechanical Ventilator Mechanical Ventilator O2 Flow Rate 65.00 65.00 FiO2 60 10/02/19 10/02/19 10/02/19 10/02/19 07:16 07:57 08:00 09:00 Temp 36.9 Pulse 77 76 Resp 35 17 B/P (MAP) 173/78 (109) 172/80 (110) Pulse Ox 95 96 O2 Delivery Mechanical Ventilator Mechanical Ventilator Mechanical Ventilator O2 Flow Rate 65.00 65.00 FiO2 60 10/02/19 10/02/19 10/02/19 10/02/19 09:02 10:00 10:41 11:00 Pulse 81 81 88 Resp 18 18 18 B/P (MAP) 172/80 172/77 (108) 162/71 (101) Pulse Ox 96 96 93 O2 Delivery Mechanical Ventilator Mechanical Ventilator O2 Flow Rate 65.00 65.00 FiO2 60 10/02/19 10/02/19 10/02/19 10/02/19 11:09 11:38 12:00 12:10 Temp 36.2 Pulse 88 93 Resp 21 B/P (MAP) 162/71 168/78 (108) Pulse Ox 95 O2 Delivery Mechanical Ventilator O2 Flow Rate 65.00 10/02/19 10/02/19 10/02/19 10/02/19 13:00 13:42 14:00 15:00 Pulse 77 89 83 Resp 23 29 20 B/P (MAP) 167/77 (107) 167/76 140/64 (89) 139/60 (86) Pulse Ox 95 95 94 O2 Delivery Mechanical Ventilator Mechanical Ventilator Mechanical Ventilator O2 Flow Rate 65.00 65.00 65.00 10/02/19 10/02/19 10/02/19 10/02/19 15:24 16:00 16:33 16:36 Temp 35.7 Pulse 82 102 Resp 20 18 B/P (MAP) 134/71 (92) 135/65 Pulse Ox 94 92 O2 Delivery Mechanical Ventilator Mechanical Ventilator O2 Flow Rate 65.00 60.00 FiO2 60 10/02/19 00:00 Intake Total 1350 ml Output Total 1500 ml Balance -150 ml Weight (Pounds): 218 Weight (Ounces): 0.0 Weight (Calculated Kilograms): 98.835138 Constitutional: well-developed, well-nourished, other (intubated and sedated) Respiratory: No accessory muscle use, No respiratory distress; chest expansion is symmetric, other (fair air entry; intubated) Cardiovascular: regular rate-rhythm; No JVD; S1 and S2 Gastrointestional: audible bowel sounds Extremities: other (mod bilat LE swelling) Neurologic/Psychiatric: other (intubated/ventilated) Skin: warm/dry Results/Procedures: Labs Laboratory Tests 10/01/19 20:35: Glucometer 192H 10/01/19 23:40: Glucometer 218H 10/02/19 03:24: White Blood Count 10.7, Red Blood Count 2.88L, Hemoglobin 9.1L, Hematocrit 28L, Mean Corpuscular Volume 97, Mean Corpuscular Hemoglobin 32, Mean Corpuscular Hemoglobin Concent 33, Red Cell Distribution Width 14.9H, Platelet Count 338, Mean Platelet Volume 9.3, Neutrophils (%) (Auto) 93H, Lymphocytes (%) (Auto) 5L, Monocytes (%) (Auto) 2, Eosinophils (%) (Auto) 0, Basophils (%) (Auto) 0, Neutrophils # (Auto) 10.0H, Lymphocytes # (Auto) 0.5L, Monocytes # (Auto) 0.2, Eosinophils # (Auto) 0.0, Basophils # (Auto) 0.0, Prothrombin Time 12.9, INR Comment 0.9, Activated Partial Thromboplast Time 35, Blood Gas Puncture Site RIGHT RADIAL, Blood Gas Patient Temperature 36.4, Arterial Blood pH 7.48H, Arterial Blood Partial Pressure CO2 45, Arterial Blood Partial Pressure O2 85, Arterial Blood HCO3 33H, Arterial Blood Total CO2 34.3H, Arterial Blood Oxygen Saturation 97, Arterial Blood Base Excess 8.8H, Jame Test YES-POS, Blood Gas Ventilator Setting YES, Blood Gas Inspired Oxygen 60%, Sodium Level 135, Potassium Level 4.0, Chloride Level 94L, Carbon Dioxide Level 27, Anion Gap 14, Blood Urea Nitrogen 31H, Creatinine 1.04, Estimat Glomerular Filtration Rate 55, BUN/Creatinine Ratio 30, Glucose Level 157H, Calcium Level 9.2, Phosphorus Level 4.6, Magnesium Level 2.2, Triglycerides Level 629H 10/02/19 11:38: Glucometer 167H Microbiology 09/30/19 Gram Stain - Final, Resulted 09/30/19 Sputum Culture - Preliminary, Resulted Pseudomonas aeruginosa 09/26/19 Blood Culture - Final, Complete No growth A/P: Assessment/Dx: Acute resp failure, ARDS, likely due to COPD exacerbated by aspiration pneumonia Acute renal failure, likely ATN due to hypotension due to sepsis Hyperkalemia/hypermag likely secondary to renal failure PAF/flutter, currently NSR Hypotension due to sepsis and propofol (post-intubation) Elevated troponin - likely type 2 NM d/t hypoxia Card cath of 09/07/18: minimal CAD, LVEF 70-75%, elevated LVEDP Echo of 09/20/19: LVEF 50-55%, RVSP 35 mmHg H/o opiate addiction ETOH abuse Chronic tobacco use Fam h/o early CAD Hyperlipidemia Borderline DM II (fasting blood glucose on 09/07/18) Carotid u/s on 01/05/19: no significant dz Plan: Plan: * Prognosis guarded * ARDS, requiring high PEEP and FiO2. PEEP today 8 but FiO2 70%. * D/c dig, continue amiodarone via NGT * Monitor lab closely * amlodipine 5 mg via OG tube. Thank you for your consultation. Please call me if you have any questions. Taz Velazco MD, FACP, FACC, FSCAI, FHRS, CCDS Interventional Cardiology Cardiac Electrophysiology Vascular Medicine and Endovascular Interventions Focused Exam Lactate Level 09/30/19 00:34: Lactic Acid Level 0.60 Graciela VELAZCO MD Oct 02, 2019 17:35
[2019-10-02] MEDS: FAMOTIDINE 20 MG (PEPCID) TABLET GT SCH (20:49)
[2019-10-02] MEDS: fentaNYL INJECTION 100 MCG/2 ML AMP IVP PRN (22:04)
[2019-10-03] VITALS (29 sets, daily range): BP systolic 107–174; BP diastolic 57–85
[2019-10-03] MEDS: PIPERACILLIN/TAZOBACTAM (BULK) 4.5 GM in NS (IVPB) 100 ML IV SCH ×4 (00:50→23:35)
[2019-10-03] MEDS: hydrALAZINE (APRESOLINE) 25 MG TAB PO SCH ×7 (00:50→23:37)
[2019-10-03] MEDS: RT-ALBUTEROL/IPRATROPIUM 3 ML (DUONEB) VIAL INH SCH ×6 (01:41→21:22)
[2019-10-03] MEDS: aCETylcysteine 20% (MUCOMYST) 30ML SOLN VIAL INH SCH ×5 (01:42→21:22)
[2019-10-03] MEDS: inSUlin ASPART (NovoLOG) 1 UNIT/0.01 ML (CHARGE PER UNIT) SC SCH ×5 (03:00→23:30)
[2019-10-03 03:18] LABS: BASOPHILS % (AUTO) 0 % (0-10); EOSINOPHILS % (AUTO) 0 % (0-10); HEMATOCRIT 28 % (35-52); HEMOGLOBIN 9.3 G/DL (11.5-16.0); LYMPHOCYTES # (AUTO) 0.6 X 10^3 (1.0-4.0); LYMPHOCYTES % (AUTO) 5 % (12-44); MEAN CORPUSCULAR HEMOGLOBIN 32 PG (25-34); MEAN CORPUSCULAR HGB CONC 33 G/DL (32-36); MEAN CORPUSCULAR VOLUME 96 FL (80-99); MEAN PLATELET VOLUME 9.2 FL (7.4-10.4); MONOCYTES # (AUTO) 0.2 X 10^3 (0.0-1.0); MONOCYTES % (AUTO) 2 % (0-12); NEUTROPHILS # (AUTO) 10.4 X 10^3 (1.8-7.8); NEUTROPHILS % (AUTO) 93 % (42-75); PLATELET COUNT 352 10^3/uL (130-400); RED CELL DISTRIBUTION WIDTH 14.9 % (10.0-14.5); WHITE BLOOD COUNT 11.3 10^3/uL (4.3-11.0)
[2019-10-03 03:48] LABS: CREATININE SERUM 0.99 MG/DL (0.60-1.30); POTASSIUM 3.6 MMOL/L (3.6-5.0)
[2019-10-03 03:49] LABS: CALCIUM 8.8 MG/DL (8.5-10.1); PHOSPHORUS 3.7 MG/DL (2.3-4.7)
[2019-10-03 03:50] LABS: ABG BASE EXCESS 8.6 MMOL/L (-2.5-2.5); ABG OXYGEN SATURATION 95 % (94-100); ABG PCO2 42 MMHG (35-45); ABG PO2 75 MMHG (79-93); ABG TCO2 33.7 MMOL/L (21.0-31.0)
[2019-10-03 03:52] LABS: ALLENS TEST YES-POS; INSPIRED O2 40%; PATIENT TEMP 36.6; VENTILATOR YES
[2019-10-03] MEDS: hydrALAZINE (APESOLINE) 20 MG/ML VIAL IV PRN (03:57)
[2019-10-03] MEDS: DEXMEDETOMIDINE 1,000 MCG/NS 250 ML IV SCH ×8 (05:29→23:30)
[2019-10-03] MEDS: fentaNYL INJECTION 100 MCG/2 ML AMP IVP PRN ×4 (05:29→23:32)
[2019-10-03] MEDS: POTASSIUM CL 10MEQ/50ML IVPB 50 ML IV SCH (06:19)
[2019-10-03] MEDS: MAGNESIUM 1 GM/100 ML IVPB 100 ML IV SCH (06:19)
[2019-10-03] MEDS: KCL 20 MEQ TAB (K-DUR) PO SCH (06:20)
[2019-10-03] MEDS: ENOXAPARIN 100 MG/1 ML (LOVENOX) SYR SC SCH ×2 (06:36→17:48)
[2019-10-03] MEDS: guaiFENesin SYRUP 100 MG/5 ML 10 ML (ROBITUSSIN SF) PO SCH ×3 (06:36→23:31)
[2019-10-03] MEDS: CALCIUM ACETATE 667 MG CAP (PHOSLO) PO SCH ×3 (06:37→17:48)
--- NOTE | 2019-10-03 07:00 | Diagnostic Imaging Report ---
INDICATION: Dyspnea Semi-upright portable AP view of chest is obtained with comparison made to study of one day earlier. There is suboptimal inspiration. There is continued blunting of both costophrenic sulci. Basilar density may represent pneumonitis or pneumonia. Support tubes are in stable position. Monitoring leads overlie the chest. IMPRESSION: Continued basilar pneumonitis or pneumonia and mild to moderate bilateral pleural effusions. Dictated by: Dictated on workstation # [id number]
--- NOTE | 2019-10-03 08:18 | Physical Therapy Progress Note ---
Therapy Progress Note Patient remains sedated and intubated. PT will require new orders when patient is able to actively participate with skilled therapy. MERVIN PETERSON PT Oct 03, 2019 08:18
[2019-10-03] MEDS: BUMETANIDE 1 MG/4 ML (BUMEX) VIAL IV SCH ×2 (08:53→20:17)
[2019-10-03] MEDS: AMIODARONE 200 MG (CORDARONE) TAB NG SCH ×2 (08:54→20:16)
--- NOTE | 2019-10-03 09:35 | Progress Note - Hospitalist ---
[facility] 10/03/19 0935: Subjective HPI/CC On Admission Date Seen by Provider: Oct 03, 2019 Time Seen by Provider: 07:30 Helene is a 54 y/o female that presented to via [facility] due to altered mental status. The following information was obtained from ER chart. Patient is currently intubated and sedated and has no family at the bedside at this time. She was brought in via EMS and was reportedly found at home after two days of no contact. She was unresponsive and was sitting in urine. There is concern of alcohol and narcotic use. She currently smokes 3 packs of cigarettes a day. She arrived to the ER with a fever and was hypoxic. The patient is requiring intubation and FiO2 of 100%. She received both chest CT and X-ray. Chest CT is showing extensive airspace consolidation with the right middle lobe, right lower lobe, left lower lobe possibly related to aspiration, pneumonia, or other alveo lar consolidative processes.Chest X-ray showed nonspecific bibasilar airspace consolidation with probable bilateral pleural effusions. Subjective/Events-last exam Patient is intubated and sedated She is in no acute distress No family at bedside Unable to obtain ROS Osorio catheter in place and is draining without issue. Objective Exam Vital Signs Vital Signs Date Time Temp Pulse Resp B/P (MAP) Pulse Ox O2 Delivery O2 Flow Rate FiO2 10/03/19 08:53 98 140/69 10/03/19 08:10 97 Mechanical Ventilator 40 10/03/19 07:06 19 10/03/19 06:36 36.79946 40.00 Capillary Refill : Less Than 3 Seconds General Appearance: No Apparent Distress, Chronically ill Respiratory: Lungs Clear, No Accessory Muscle Use, No Respiratory Distress Cardiovascular: Tachycardia, Other (2/4 radial pulse, difficult to feal dorsal pedal pulse due to LE edema 1/4) Gastrointestinal: Normal Bowel Sounds, Distended; No Guarding Extremity: Pedal Edema, Other (Right calf increased in size compared to the left ) Neurologic/Psychiatric: No Alert, No Oriented x3 Skin: Normal Color, Warm/Dry Lymphatic: No Adenopathy Results/Procedures Lab Laboratory Tests 10/03/19 03:00 Patient resulted labs reviewed. Imaging: Reviewed Imaging Report Assessment/Plan Assessment and Plan Assess & Plan/Chief Complaint Acute on Chronic Respiratory failure with ARDS - Ventilated. Patient is currently at FiO2 of 40 and is stating >90%. Will continue to work with pulmonary care. Blood gases have improved. - Bronchoscopy performed - Influenza test negative - Patient was positive for pseudomonas and sensitive to all abx. Currently receiving Pip/Tazo 4.5g. COPD acute exacerbation - Continue Albuterol/Ipratropium and steroid regimen AFIB/Flutter with RVR - continue anticoagulation, receiving 90mg BID - spoke to cardiology and the patient has improved from a cardio standpoint. ECHO showed 50-55% EF - Currently on amiodarone, afib/aflutter resolved patient is currently in sinus rhythm but is tachycardic Hyperkalemia - resolved DVT - SCDs - continue anticoagulation of Enoxaparin of 90mg BID GIOVANNI - resolved Alcohol abuse - no medical management at this moment. Constipation - will continue to monitor, has been ahving bowel movments Nutrition - will start nutrition supplementation through NG/OG tube Hyperglycemic - started on 15units Levemir - steroid induced Clinical Quality Measures DVT/VTE Risk/Contraindication: Risk Factor Score Per Nursin RFS Level Per Nursing on Admit: 4+=Very High BROOKLYN DUNLAP MD 10/03/19 1638: Assessment/Plan Assessment and Plan Assess & Plan/Chief Complaint Patient remains on ventilator, managed by eICU. Much less oxygen needs and PEEP down to 5 which is markedly improved from the last time I saw patient. Discussed with family regarding long course ahead still as she will be quite debility still once off the ventilator. Continue current abx and await sensitivities on pseudomonas. Diagnosis/Problems Diagnosis/Problems (1) ARDS (adult respiratory distress syndrome) Status: Acute (2) Alcohol use Status: Acute (3) Atrial fibrillation with rapid ventricular response Status: Acute (4) Bilateral pneumonia Status: Acute Qualifiers: Qualified Codes: J18.1 - Lobar pneumonia, unspecified organism (5) Acute respiratory failure Status: Acute Qualifiers: Qualified Codes: J96.01 - Acute respiratory failure with hypoxia Supervisory-Addendum Brief Verification & Attestation Participated in pt care: history, MDM, physical Personally performed: exam, history, MDM, supervision of care Care discussed with: Medical Student Procedures: n/a Results interpretation: Verified all documentation Verification and Attestation of Medical Student E/M Service A medical student performed and documented this service in my presence. I reviewed and verified all information documented by the medical student and made modifications to such information, when appropriate. I personally performed the physical exam and medical decision making. Brooklyn Dunlap, Oct 03, 2019,16:36 [facility] Oct 03, 2019 09:35 BROOKLYN DUNLAP MD Oct 03, 2019 16:38
--- NOTE | 2019-10-03 10:15 | NUR ---
Pastoral care visit.
--- NOTE | 2019-10-03 12:48 | NUR ---
ORDER RECIEVED FROM E-ICU PHYSICIAN, DR. REHMAN TO DECREASE SEDATION, UNTIL ALERT THEN, PS 5 PEEP 5 X30 MINUTES, ABG AT THE END. CALL PROVIDER WITH RESULTS. PROPOFOL WAS TITRATED DOWN AND PATIENT AWOKE AND FOLLOWED SIMPLE COMMANDS. SHE IS EXTREMELY WEAK AND WAS ONLY ABLE TO HOLD ONE FINGER OUT, ATTEMPTED TO HOLD HEAD OFF OF BED. PT HR CLIMBED TO 146 AT HIGHEST WITH SEDATION OFF. NOTIFIED E-ICU AT 1453 AND ORDER RECIEVED TO TURN ON SEDATION AND WEANING ATTEMPTS WILL BE MADE TOMORROW. VENT SETTINGS HAD NOT BEEN CHANGED, NO ABG DRAWN.
--- NOTE | 2019-10-03 16:17 | NUR ---
NON ADMIN OF 1600 HYDRALAZINE DUE TO HOLDING TUBE FEEDS FOR POSSIBLE EXTUBATION. ATTEMPTS WERE NOT SUCCESSFUL SO TF RESUMED AND 1200 HYDRALAZINE ADMINISTERED.
[2019-10-03] MEDS: methylPREDNISolone 125 MG (Solu-MEDROL) VIAL IV SCH (17:48)
--- NOTE | 2019-10-03 18:07 | Cardiology Progress Note ---
Cardiology SOAP Progress Note Subjective: Intubated/ventilated Objective: I&O/Vital Signs 10/03/19 10/03/19 10/03/19 10/03/19 06:36 07:00 07:00 07:06 Temp 36.81648 Pulse 124 116 116 112 Resp 18 21 19 B/P (MAP) 139/77 144/76 (98) Pulse Ox 95 98 97 O2 Delivery Mechanical Ventilator Mechanical Ventilator O2 Flow Rate 40.00 40.00 FiO2 40 10/03/19 10/03/19 10/03/19 10/03/19 08:00 08:10 08:53 09:00 Pulse 121 98 98 Resp 19 32 B/P (MAP) 145/71 (95) 140/69 107/57 (74) Pulse Ox 98 97 94 O2 Delivery Mechanical Ventilator Mechanical Ventilator Mechanical Ventilator O2 Flow Rate 40.00 40.00 FiO2 40 10/03/19 10/03/19 10/03/19 10/03/19 09:58 10:00 10:23 11:00 Pulse 93 86 86 Resp 19 18 18 B/P (MAP) 127/60 (82) 136/62 (86) Pulse Ox 98 97 97 O2 Delivery Mechanical Ventilator Mechanical Ventilator Mechanical Ventilator O2 Flow Rate 35.00 35.00 35.00 FiO2 35 10/03/19 10/03/19 10/03/19 10/03/19 12:00 12:00 12:15 12:20 Temp 36.1 Pulse 137 128 Resp 18 B/P (MAP) 162/83 (109) Pulse Ox 95 94 O2 Delivery Mechanical Ventilator Mechanical Ventilator O2 Flow Rate 35.00 FiO2 35 10/03/19 10/03/19 10/03/19 10/03/19 13:00 13:00 14:00 14:32 Pulse 115 116 111 125 Resp 18 18 22 B/P (MAP) 145/69 (94) 148/75 (99) Pulse Ox 94 96 95 O2 Delivery Mechanical Ventilator Mechanical Ventilator O2 Flow Rate 35.00 35.00 FiO2 35 10/03/19 10/03/19 10/03/19 10/03/19 15:00 15:11 16:00 16:00 Temp 37.0 Pulse 140 133 125 Resp 22 23 22 B/P (MAP) 149/77 (101) 149/77 129/71 (90) Pulse Ox 95 94 O2 Delivery Mechanical Ventilator Mechanical Ventilator O2 Flow Rate 35.00 35.00 10/03/19 10/03/19 10/03/19 16:09 17:00 17:49 Pulse 121 118 Resp 22 B/P (MAP) 134/69 (90) Pulse Ox 94 96 O2 Delivery Mechanical Ventilator Mechanical Ventilator O2 Flow Rate 35.00 FiO2 35 10/03/19 00:00 Intake Total 1530 ml Output Total 2225 ml Balance -695 ml Weight (Pounds): 218 Weight (Ounces): 0.0 Weight (Calculated Kilograms): 98.182327 Constitutional: well-developed, well-nourished, other (intubated and sedated) Respiratory: No accessory muscle use, No respiratory distress; chest expansion is symmetric, other (fair air entry; intubated) Cardiovascular: regular rate-rhythm; No JVD; tachycardia, S1 and S2 Gastrointestional: audible bowel sounds Extremities: other (mod bilat LE swelling) Neurologic/Psychiatric: other (intubated/ventilated) Skin: warm/dry Results/Procedures: Labs Laboratory Tests 10/02/19 18:12: Glucometer 204H 10/02/19 20:45: Glucometer 193H 10/03/19 03:00: White Blood Count 11.3H, Red Blood Count 2.90L, Hemoglobin 9.3L, Hematocrit 28L, Mean Corpuscular Volume 96, Mean Corpuscular Hemoglobin 32, Mean Corpuscular Hemoglobin Concent 33, Red Cell Distribution Width 14.9H, Platelet Count 352, Mean Platelet Volume 9.2, Neutrophils (%) (Auto) 93H, Lymphocytes (%) (Auto) 5L, Monocytes (%) (Auto) 2, Eosinophils (%) (Auto) 0, Basophils (%) (Auto) 0, Neutrophils # (Auto) 10.4H, Lymphocytes # (Auto) 0.6L, Monocytes # (Auto) 0.2, Eosinophils # (Auto) 0.0, Basophils # (Auto) 0.0, Sodium Level 135, Potassium Level 3.6, Chloride Level 94L, Carbon Dioxide Level 25, Anion Gap 16H, Blood Urea Nitrogen 29H, Creatinine 0.99, Estimat Glomerular Filtration Rate 58, BUN/Creatinine Ratio 29, Glucose Level 196H, Calcium Level 8.8, Phosphorus Level 3.7, Magnesium Level 2.0 10/03/19 03:30: Blood Gas Puncture Site RIGHT RADIAL, Blood Gas Patient Temperature 36.6, Arterial Blood pH 7.50H, Arterial Blood Partial Pressure CO2 42, Arterial Blood Partial Pressure O2 75L, Arterial Blood HCO3 32H, Arterial Blood Total CO2 33.7H , Arterial Blood Oxygen Saturation 95, Arterial Blood Base Excess 8.6H, Jame Test YES-POS, Blood Gas Ventilator Setting YES, Blood Gas Inspired Oxygen 40% 10/03/19 11:14: Glucometer 153H 10/03/19 17:29: Glucometer 167H Microbiology 09/30/19 Gram Stain - Final, Complete 09/30/19 Sputum Culture - Final, Complete Pseudomonas aeruginosa Pseudomonas aeruginosa#2 09/26/19 Blood Culture - Final, Complete No growth A/P: Assessment/Dx: Acute resp failure, ARDS, likely due to COPD exacerbated by aspiration pneumonia Acute renal failure, likely ATN due to hypotension due to sepsis Hyperkalemia/hypermag likely secondary to renal failure PAF/flutter, currently sinus tachycardia. Hypotension due to sepsis and propofol (post-intubation) Elevated troponin - likely type 2 [place] d/t hypoxia Card cath of 09/07/18: minimal CAD, LVEF 70-75%, elevated LVEDP Echo of 09/20/19: LVEF 50-55%, RVSP 35 mmHg H/o opiate addiction ETOH abuse Chronic tobacco use Fam h/o early CAD Hyperlipidemia Borderline DM II (fasting blood glucose on 09/07/18) Carotid u/s on 01/05/19: no significant dz Plan: Plan: * Prognosis guarded * ARDS, better oxygen requirement today. * D/c dig, continue amiodarone via NGT * Monitor lab closely * amlodipine 5 mg via OG tube. Thank you for your consultation. Please call me if you have any questions. Taz Velazco MD, FACP, FACC, FSCAI, FHRS, CCDS Interventional Cardiology Cardiac Electrophysiology Vascular Medicine and Endovascular Interventions Graciela VELAZCO MD Oct 03, 2019 18:07
--- NOTE | 2019-10-03 18:58 | NUR ---
CONSULTED E-ICU REGARDING HR 120'S DESPITE INCREASE IN SEDATION AND FENTANYL POST WEANING TRIAL. NO NEW ORDERS RECEIVED AT THIS TIME.
[2019-10-03] MEDS: FAMOTIDINE 20 MG (PEPCID) TABLET GT SCH (20:16)
[2019-10-04] VITALS (28 sets, daily range): BP systolic 123–183; BP diastolic 56–108
[2019-10-04] MEDS: RT-ALBUTEROL/IPRATROPIUM 3 ML (DUONEB) VIAL INH SCH ×6 (01:44→23:23)
[2019-10-04] MEDS: fentaNYL INJECTION 100 MCG/2 ML AMP IVP PRN (03:26)
[2019-10-04 03:40] LABS: BASOPHILS % (AUTO) 0 % (0-10); EOSINOPHILS % (AUTO) 0 % (0-10); HEMATOCRIT 26 % (35-52); HEMOGLOBIN 8.5 G/DL (11.5-16.0); LYMPHOCYTES # (AUTO) 0.5 X 10^3 (1.0-4.0); LYMPHOCYTES % (AUTO) 4 % (12-44); MEAN CORPUSCULAR HEMOGLOBIN 31 PG (25-34); MEAN CORPUSCULAR HGB CONC 33 G/DL (32-36); MEAN CORPUSCULAR VOLUME 96 FL (80-99); MONOCYTES # (AUTO) 0.2 X 10^3 (0.0-1.0); MONOCYTES % (AUTO) 2 % (0-12); NEUTROPHILS # (AUTO) 12.1 X 10^3 (1.8-7.8); NEUTROPHILS % (AUTO) 94 % (42-75); PLATELET COUNT 381 10^3/uL (130-400); RED CELL DISTRIBUTION WIDTH 14.9 % (10.0-14.5); WHITE BLOOD COUNT 12.8 10^3/uL (4.3-11.0)
[2019-10-04 03:42] LABS: ABG BASE EXCESS 8.7 MMOL/L (-2.5-2.5); ABG OXYGEN SATURATION 94 % (94-100); ABG PCO2 42 MMHG (35-45); ABG PO2 67 MMHG (79-93); ABG TCO2 33.8 MMOL/L (21.0-31.0)
[2019-10-04 03:48] LABS: ALLENS TEST YES-POS; INSPIRED O2 35%; VENTILATOR YES
[2019-10-04 03:49] LABS: PATIENT TEMP 36.2
[2019-10-04 04:01] LABS: BUN/CREATININE RATIO 29; CALCIUM 8.6 MG/DL (8.5-10.1); CARBON DIOXIDE 25 MMOL/L (21-32); CHLORIDE 93 MMOL/L (98-107); CREATININE SERUM 0.91 MG/DL (0.60-1.30); GFR ESTIMATED > 60; GLUCOSE 186 MG/DL (70-105); PHOSPHORUS 3.9 MG/DL (2.3-4.7); POTASSIUM 3.6 MMOL/L (3.6-5.0); SODIUM 134 MMOL/L (135-145)
[2019-10-04 04:04] LABS: BAND NEUTROPHILS 5 %; LYMPHOCYTES % (MANUAL) 4 %; MONOCYTES % (MANUAL) 2 %; NEUTROPHILS % (MANUAL) 89 %; RBC MORPH NORMAL
[2019-10-04] MEDS: hydrALAZINE (APRESOLINE) 25 MG TAB PO SCH ×5 (04:17→22:28)
[2019-10-04] MEDS: POTASSIUM CL 10MEQ/50ML IVPB 50 ML IV SCH ×2 (04:21→04:34)
[2019-10-04] MEDS: MAGNESIUM 1 GM/100 ML IVPB 100 ML IV SCH (04:22)
[2019-10-04] MEDS: KCL 20 MEQ TAB (K-DUR) PO SCH (04:22)
[2019-10-04] MEDS: CALCIUM ACETATE 667 MG CAP (PHOSLO) PO SCH ×3 (06:16→17:05)
[2019-10-04] MEDS: ENOXAPARIN 100 MG/1 ML (LOVENOX) SYR SC SCH ×2 (06:16→17:40)
[2019-10-04] MEDS: inSUlin ASPART (NovoLOG) 1 UNIT/0.01 ML (CHARGE PER UNIT) SC SCH ×3 (06:16→18:08)
[2019-10-04] MEDS: guaiFENesin SYRUP 100 MG/5 ML 10 ML (ROBITUSSIN SF) PO SCH ×3 (06:16→22:27)
[2019-10-04] MEDS: aCETylcysteine 20% (MUCOMYST) 30ML SOLN VIAL INH SCH ×5 (06:55→23:23)
--- NOTE | 2019-10-04 08:20 | Diagnostic Imaging Report ---
Indication: Dyspnea. Comparison made with prior examination from 10/03/2019. FINDINGS: There are bibasilar infiltrates and small bilateral pleural effusions. There is cardiomegaly and venous congestion. Lines and tubes are in satisfactory position. There is no pneumothorax. IMPRESSION: Bibasal infiltrates and bilateral pleural effusions. Cardiomegaly and some central pulmonary venous congestion. Dictated by: Dictated on workstation # [id number]
[2019-10-04] MEDS: PIPERACILLIN/TAZOBACTAM (BULK) 4.5 GM in NS (IVPB) 100 ML IV SCH (09:02)
[2019-10-04] MEDS: AMIODARONE 200 MG (CORDARONE) TAB NG SCH ×2 (09:03→22:27)
[2019-10-04] MEDS: BUMETANIDE 1 MG/4 ML (BUMEX) VIAL IV SCH ×2 (09:03→21:27)
--- NOTE | 2019-10-04 10:22 | Progress Note - Hospitalist ---
[facility]MO [facility] 10/04/19 1022: Subjective HPI/CC On Admission Date Seen by Provider: Oct 04, 2019 Time Seen by Provider: 09:30 Helene is a 54 y/o female that presented to via [facility] due to altered mental status. The following information was obtained from ER chart. Patient is currently intubated and sedated and has no family at the bedside at this time. She was brought in via EMS and was reportedly found at home after two days of no contact. She was unresponsive and was sitting in urine. There is concern of alcohol and narcotic use. She currently smokes 3 packs of cigarettes a day. She arrived to the ER with a fever and was hypoxic. The patient is requiring intubation and FiO2 of 100%. She received both chest CT and X-ray. Chest CT is showing extensive airspace consolidation with the right middle lobe, right lower lobe, left lower lobe possibly related to aspiration, pneumonia, or other alveo lar consolidative processes.Chest X-ray showed nonspecific bibasilar airspace consolidation with probable bilateral pleural effusions. Subjective/Events-last exam Pt is intubated and sedated. Family at bedside There was two attempts to wean patient off of the vent yesterday and were unsuccessful. Unable to obtain ROS Osorio catheter in place and draining. Urine output is 1.01ml/kg/hr Receiving feedings via OG tubes Objective Exam Vital Signs Vital Signs Date Time Temp Pulse Resp B/P (MAP) Pulse Ox O2 Delivery O2 Flow Rate FiO2 10/04/19 09:23 155/74 10/04/19 08:00 36.4 10/04/19 07:00 85 10/04/19 06:55 19 97 35 10/04/19 06:00 Mechanical Ventilator 35.00 Capillary Refill : Less Than 3 Seconds General Appearance: No Apparent Distress, Chronically ill Respiratory: Lungs Clear, No Accessory Muscle Use, No Respiratory Distress Cardiovascular: Regular Rate, Rhythm, Other (Peripheral edema is improving) Gastrointestinal: Normal Bowel Sounds, Soft, Distended; No Guarding Extremity: Pedal Edema (R>L ) Neurologic/Psychiatric: No Alert, No Oriented x3 Skin: Warm/Dry Lymphatic: No Adenopathy Results/Procedures Lab Laboratory Tests 10/04/19 03:24 Patient resulted labs reviewed. Imaging: Reviewed Imaging Report Assessment/Plan Assessment and Plan Assess & Plan/Chief Complaint Acute on Chronic Respiratory failure with ARDS - Ventilated. Patient is currently at FiO2 of 35 and is stating >90%. Will continue to work with pulmonary care. Blood gases have improved. - Bronchoscopy performed - Influenza test negative - Patient has retested positive for pseudomonas and Organism 1 is sensitive to everything except Aztreonam and Organism 2 is sensitive to all abx. for sensitive to all abx. Currently receiving Pip/Tazo 4.5g. - continue to wean patient off of ventilation - Bumetanide 1mg BID COPD acute exacerbation - Continue Albuterol/Ipratropium and steroid regimen AFIB/Flutter with RVR - continue anticoagulation, receiving 90mg BID - spoke to cardiology and the patient has improved from a cardio standpoint. ECHO showed 50-55% EF - Currently on amiodarone 400mg BID, afib/aflutter resolved patient is currently in sinus rhythm Hyperkalemia - resolved DVT - SCDs - continue anticoagulation of Enoxaparin of 90mg BID GIOVANNI - resolved Alcohol abuse - no medical management at this moment. Constipation - will continue to monitor, has been having bowel movements Nutrition - will start nutrition supplementation through NG/OG tube Hyperglycemic - started on 15units Levemir - steroid induced Position change: patient should have position changes at least every two hours. Inspection for bed wounds. Clinical Quality Measures DVT/VTE Risk/Contraindication: Risk Factor Score Per Nursin RFS Level Per Nursing on Admit: 4+=Very High BROOKLYN DUNLAP MD 10/04/19 1519: Assessment/Plan Assessment and Plan Assess & Plan/Chief Complaint Patient remains quite ill. eICU managing vent. Hopeful for extuabtion soon as has had significant decrease in vent settings and tolerated well. Continue Levemir. Continue SSI. Diagnosis/Problems Diagnosis/Problems (1) ARDS (adult respiratory distress syndrome) Status: Acute (2) Alcohol use Status: Acute (3) Atrial fibrillation with rapid ventricular response Status: Acute (4) Bilateral pneumonia Status: Acute Qualifiers: Qualified Codes: J18.1 - Lobar pneumonia, unspecified organism (5) Acute respiratory failure Status: Acute Qualifiers: Qualified Codes: J96.01 - Acute respiratory failure with hypoxia Supervisory-Addendum Brief Verification & Attestation Participated in pt care: history, MDM, physical Personally performed: exam, history, MDM, supervision of care Care discussed with: Medical Student Procedures: n/a Results interpretation: Verified all documentation Verification and Attestation of Medical Student E/M Service A medical student performed and documented this service in my presence. I reviewed and verified all information documented by the medical student and made modifications to such information, when appropriate. I personally performed the physical exam and medical decision making. Brooklyn Dunlap, Oct 04, 2019,15:16 [facility] Oct 04, 2019 10:22 BROOKLYN DUNLAP MD Oct 04, 2019 15:19
[2019-10-04] MEDS: DEXMEDETOMIDINE 1,000 MCG/NS 250 ML IV SCH ×4 (12:23→18:30)
[2019-10-04 15:46] LABS: ABG BASE EXCESS 8.7 MMOL/L (-2.5-2.5); ABG OXYGEN SATURATION 91 % (94-100); ABG PCO2 42 MMHG (35-45); ABG PO2 58 MMHG (79-93); ABG TCO2 33.7 MMOL/L (21.0-31.0)
[2019-10-04 15:47] LABS: ALLENS TEST YES-POS; INSPIRED O2 35%; PATIENT TEMP 36.8; VENTILATOR YES
--- NOTE | 2019-10-04 16:07 | Cardiology Progress Note ---
Cardiology SOAP Progress Note Subjective: Intubated/ventilated. Objective: I&O/Vital Signs 10/04/19 10/04/19 10/04/19 10/04/19 04:13 04:18 05:00 06:00 Temp 36.2 Pulse 96 88 Resp 23 16 B/P (MAP) 128/64 141/69 (93) 156/76 (102) Pulse Ox 93 98 O2 Delivery Mechanical Ventilator Mechanical Ventilator O2 Flow Rate 35.00 35.00 10/04/19 10/04/19 10/04/19 10/04/19 06:51 06:55 07:00 07:00 Pulse 84 85 85 Resp 19 12 B/P (MAP) 154/79 Pulse Ox 97 97 O2 Delivery Mechanical Ventilator O2 Flow Rate 35.00 FiO2 35 10/04/19 10/04/19 10/04/19 10/04/19 08:00 08:00 08:00 09:00 Temp 36.4 Pulse 91 90 Resp 12 17 B/P (MAP) 156/75 (102) 155/74 (101) Pulse Ox 97 97 98 O2 Delivery Mechanical Ventilator Mechanical Ventilator Mechanical Ventilator O2 Flow Rate 35.00 35.00 FiO2 35 10/04/19 10/04/19 10/04/19 10/04/19 09:23 10:00 10:40 11:00 Pulse 90 84 95 Resp 18 19 17 B/P (MAP) 155/74 142/71 (94) 133/64 (87) Pulse Ox 96 94 94 O2 Delivery Mechanical Ventilator Mechanical Ventilator O2 Flow Rate 35.00 35.00 FiO2 35 10/04/19 10/04/19 10/04/19 10/04/19 12:00 12:00 12:24 13:00 Temp 36.1 Pulse 96 81 Resp 15 B/P (MAP) 125/59 (81) 125/59 Pulse Ox 94 O2 Delivery Mechanical Ventilator O2 Flow Rate 35.00 10/04/19 10/04/19 10/04/19 10/04/19 13:00 13:05 14:00 15:00 Pulse 88 86 82 98 Resp 17 19 17 17 B/P (MAP) 123/56 (78) 124/58 (80) 128/59 (82) Pulse Ox 98 98 98 97 O2 Delivery Mechanical Ventilator Mechanical Ventilator Mechanical Ventilator O2 Flow Rate 35.00 35.00 35.00 FiO2 35 10/04/19 15:04 Pulse 108 Resp 19 Pulse Ox 96 FiO2 35 10/04/19 00:00 Intake Total 1950 ml Output Total 1950 ml Balance 0 ml Weight (Pounds): 218 Weight (Ounces): 0.0 Weight (Calculated Kilograms): 98.426342 Constitutional: well-developed, well-nourished, other (intubated and sedated) Respiratory: No accessory muscle use, No respiratory distress; chest expansion is symmetric, other (fair air entry; intubated) Cardiovascular: regular rate-rhythm; No JVD; S1 and S2 Gastrointestional: audible bowel sounds Extremities: other (mod bilat LE swelling) Neurologic/Psychiatric: other (intubated/ventilated) Skin: warm/dry Results/Procedures: Labs Laboratory Tests 10/03/19 17:29: Glucometer 167H 10/03/19 19:56: Glucometer 193H 10/03/19 23:25: Glucometer 239H 10/04/19 03:24: White Blood Count 12.8H, Red Blood Count 2.71L, Hemoglobin 8.5L, Hematocrit 26L, Mean Corpuscular Volume 96, Mean Corpuscular Hemoglobin 31, Mean Corpuscular Hemoglobin Concent 33, Red Cell Distribution Width 14.9H, Platelet Count 381, Mean Platelet Volume 9.0, Neutrophils (%) (Auto) 94H, Lymphocytes (%) (Auto) 4L, Monocytes (%) (Auto) 2, Eosinophils (%) (Auto) 0, Basophils (%) (Auto) 0, Neutrophils # (Auto) 12.1H, Lymphocytes # (Auto) 0.5L, Monocytes # (Auto) 0.2, Eosinophils # (Auto) 0.0, Basophils # (Auto) 0.0, Neutrophils % (Manual) 89, Lymphocytes % (Manual) 4, Monocytes % (Manual) 2, Band Neutrophils 5, Blood Morphology Comment NORMAL, Sodium Level 134L, Potassium Level 3.6, Chloride Le debra 93L, Carbon Dioxide Level 25, Anion Gap 16H, Blood Urea Nitrogen 26H, Cr eatinine 0.91, Estimat Glomerular Filtration Rate > 60, BUN/Creatinine Ratio 29, Glucose Level 186H, Calcium Level 8.6, Phosphorus Level 3.9, Magnesium Level 2.0, Triglycerides Level 614H 10/04/19 03:32: Blood Gas Puncture Site RIGHT RADIAL, Blood Gas Patient Temperature 36.2, Arterial Blood pH 7.50H, Arterial Blood Partial Pressure CO2 42, Arterial Blood Partial Pressure O2 67L, Arterial Blood HCO3 33H, Arterial Blood Total CO2 33.8H , Arterial Blood Oxygen Saturation 94, Arterial Blood Base Excess 8.7H, Jame Test YES-POS, Blood Gas Ventilator Setting YES, Blood Gas Inspired Oxygen 35% 10/04/19 12:11: Glucometer 156H 10/04/19 15:35: Blood Gas Puncture Site L RAD, Blood Gas Patient Temperature 36.8, Arterial Blood pH 7.50H, Arterial Blood Partial Pressure CO2 42, Arterial Blood Partial Pressure O2 58L, Arterial Blood HCO3 32H, Arterial Blood Total CO2 33.7H, Arterial Blood Oxygen Saturation 91L, Arterial Blood Base Excess 8.7H, Jame Test YES-POS, Blood Gas Ventilator Setting YES, Blood Gas Inspired Oxygen 35% Microbiology 09/30/19 Gram Stain - Final, Complete 09/30/19 Sputum Culture - Final, Complete Pseudomonas aeruginosa Pseudomonas aeruginosa#2 09/26/19 Blood Culture - Final, Complete No growth A/P: Assessment/Dx: Acute resp failure, ARDS, likely due to COPD exacerbated by aspiration pneumonia Acute renal failure, likely ATN due to hypotension due to sepsis Hyperkalemia/hypermag likely secondary to renal failure PAF/flutter, currently sinus tachycardia. Hypotension due to sepsis and propofol (post-intubation) Elevated troponin - likely type 2 [place] d/t hypoxia Card cath of 09/07/18: minimal CAD, LVEF 70-75%, elevated LVEDP Echo of 09/20/19: LVEF 50-55%, RVSP 35 mmHg H/o opiate addiction ETOH abuse Chronic tobacco use Fam h/o early CAD Hyperlipidemia Borderline DM II (fasting blood glucose on 09/07/18) Carotid u/s on 01/05/19: no significant dz Plan: Plan: * Prognosis guarded * ARDS, better oxygen requirement today. FiO2 35 percent, PEEP 5 * Monitor lab closely * amlodipine 5 mg via OG tube. Thank you for your consultation. Please call me if you have any questions. Taz Velazco MD, FACP, FACC, FSCAI, FHRS, CCDS Interventional Cardiology Cardiac Electrophysiology Vascular Medicine and Endovascular Interventions Graciela VELAZCO MD Oct 04, 2019 16:07
[2019-10-04] MEDS: methylPREDNISolone 125 MG (Solu-MEDROL) VIAL IV SCH (17:39)
[2019-10-04] MEDS: hydrALAZINE (APESOLINE) 20 MG/ML VIAL IV PRN (18:57)
[2019-10-04] MEDS: FAMOTIDINE 20 MG (PEPCID) TABLET GT SCH (22:13)
[2019-10-04] MEDS: FAMOTIDINE 20MG/2ML IV (PEPCID) IVP SCH (22:28)
[2019-10-04] MEDS ORDERED: D5W IV SOLUTION (EXCEL) 250 ML IV ONE (22:34)
[2019-10-04] MEDS ORDERED: AMIODARONE 450 MG/9 ML (CORDARONE) VIAL IV ONE (22:35)
[2019-10-04] MEDS ORDERED: AMIODARONE INJECTION 450 MG in D5W IV SOLUTION (EXCEL) 250 ML IV SCH (22:45)
[2019-10-05] VITALS (24 sets, daily range): BP systolic 152–195; BP diastolic 84–118
[2019-10-05] MEDS ORDERED: hydrALAZINE (APESOLINE) 20 MG/ML VIAL IV SCH
[2019-10-05] MEDS ORDERED: meTOprolol 5 MG/5 ML (LOPRESSOR) VIAL IV ONE (00:15)
[2019-10-05] MEDS: hydrALAZINE (APRESOLINE) 25 MG TAB PO SCH ×8 (00:44→22:27)
[2019-10-05] MEDS: inSUlin ASPART (NovoLOG) 1 UNIT/0.01 ML (CHARGE PER UNIT) SC SCH ×4 (00:57→18:03)
[2019-10-05] MEDS: hydrALAZINE (APESOLINE) 20 MG/ML VIAL IV PRN ×2 (00:58→18:46)
[2019-10-05] MEDS: hydrALAZINE (APESOLINE) 20 MG/ML VIAL IV SCH ×6 (00:59→20:23)
[2019-10-05 03:55] LABS: BASOPHILS % (AUTO) 0 % (0-10); EOSINOPHILS % (AUTO) 0 % (0-10); HEMATOCRIT 34 % (35-52); HEMOGLOBIN 11.1 G/DL (11.5-16.0); LYMPHOCYTES # (AUTO) 0.6 X 10^3 (1.0-4.0); LYMPHOCYTES % (AUTO) 3 % (12-44); MEAN CORPUSCULAR HEMOGLOBIN 31 PG (25-34); MEAN CORPUSCULAR HGB CONC 33 G/DL (32-36); MEAN CORPUSCULAR VOLUME 94 FL (80-99); MEAN PLATELET VOLUME 9.1 FL (7.4-10.4); MONOCYTES # (AUTO) 0.2 X 10^3 (0.0-1.0); MONOCYTES % (AUTO) 2 % (0-12); NEUTROPHILS # (AUTO) 15.4 X 10^3 (1.8-7.8); NEUTROPHILS % (AUTO) 95 % (42-75); PLATELET COUNT 405 10^3/uL (130-400); RED CELL DISTRIBUTION WIDTH 14.9 % (10.0-14.5); WHITE BLOOD COUNT 16.2 10^3/uL (4.3-11.0)
[2019-10-05] MEDS: aCETylcysteine 20% (MUCOMYST) 30ML SOLN VIAL INH SCH ×6 (04:13→21:29)
[2019-10-05] MEDS: RT-ALBUTEROL/IPRATROPIUM 3 ML (DUONEB) VIAL INH SCH ×6 (04:13→21:29)
[2019-10-05 04:17] LABS: BUN/CREATININE RATIO 27; CALCIUM 9.2 MG/DL (8.5-10.1); CARBON DIOXIDE 25 MMOL/L (21-32); CHLORIDE 95 MMOL/L (98-107); CREATININE SERUM 0.82 MG/DL (0.60-1.30); GFR ESTIMATED > 60; GLUCOSE 175 MG/DL (70-105); MAGNESIUM 1.9 MG/DL (1.6-2.4); PHOSPHORUS 3.3 MG/DL (2.3-4.7); POTASSIUM 3.1 MMOL/L (3.6-5.0); SODIUM 137 MMOL/L (135-145)
[2019-10-05] MEDS: KCL 20 MEQ TAB (K-DUR) PO SCH (04:42)
[2019-10-05] MEDS: POTASSIUM CL 10MEQ/50ML IVPB 50 ML IV SCH ×5 (04:42→07:37)
[2019-10-05] MEDS: guaiFENesin SYRUP 100 MG/5 ML 10 ML (ROBITUSSIN SF) PO SCH ×3 (04:42→22:27)
[2019-10-05] MEDS: MAGNESIUM 1 GM/100 ML IVPB 100 ML IV SCH (04:43)
[2019-10-05] MEDS: meTOprolol 5 MG/5 ML (LOPRESSOR) VIAL IV SCH ×3 (05:01→17:38)
[2019-10-05] MEDS: ENOXAPARIN 100 MG/1 ML (LOVENOX) SYR SC SCH ×2 (05:30→17:38)
[2019-10-05] MEDS: CALCIUM ACETATE 667 MG CAP (PHOSLO) PO SCH ×3 (05:31→16:32)
[2019-10-05] MEDS: DEXMEDETOMIDINE 1,000 MCG/NS 250 ML IV SCH ×4 (07:30→13:52)
[2019-10-05] MEDS: FAMOTIDINE 20MG/2ML IV (PEPCID) IVP SCH ×2 (08:07→20:24)
[2019-10-05] MEDS: BUMETANIDE 1 MG/4 ML (BUMEX) VIAL IV SCH ×2 (08:07→20:25)
--- NOTE | 2019-10-05 08:15 | Diagnostic Imaging Report ---
INDICATION: Dyspnea. TECHNIQUE: Single view chest 3:30 AM. CORRELATION STUDY: 10/04/2019 FINDINGS: Interval extubation and removal of gastric tube. Right IJ line remain in place. Combination of effusion with consolidation of both lung bases persist and overall slightly increased on the right, stable to slightly improved on the left. Heart size, mediastinum, and vasculature demonstrate overall less vascular congestion. IMPRESSION: 1. Combination of effusion along with infiltrate at both lung bases persisting, slightly increased on the right and perhaps slightly improved on the left. 2. Interval extubation. Dictated by: Dictated on workstation # [id number]
[2019-10-05] MEDS ORDERED: FAMOTIDINE 20MG/2ML IV (PEPCID) IVP SCH ×2 (09:00)
[2019-10-05] MEDS: AMIODARONE 200 MG (CORDARONE) TAB NG SCH ×2 (09:00→20:26)
--- NOTE | 2019-10-05 09:27 | Progress Note - Hospitalist ---
Subjective HPI/CC On Admission Date Seen by Provider: Oct 05, 2019 Time Seen by Provider: 09:23 Helene is a 54 y/o female that presented to via [facility] due to altered mental status. The following information was obtained from ER chart. Patient is currently intubated and sedated and has no family at the bedside at this time. She was brought in via EMS and was reportedly found at home after two days of no contact. She was unresponsive and was sitting in urine. There is concern of alcohol and narcotic use. She currently smokes 3 packs of cigarettes a day. She arrived to the ER with a fever and was hypoxic. The patient is requiring intubation and FiO2 of 100%. She received both chest CT and X-ray. Chest CT is showing extensive airspace consolidation with the right middle lobe, right lower lobe, left lower lobe possibly related to aspiration, pneumonia, or other alveolar consolidative processes.Chest X-ray showed nonspecific bibasilar airspace consolidation with probable bilateral pleural effusions. Subjective/Events-last exam Pt is now extubated. No complaints. Would like to eat. Somewhat groggy still. Objective Exam Vital Signs Vital Signs Date Time Temp Pulse Resp B/P (MAP) Pulse Ox O2 Delivery O2 Flow Rate FiO2 10/05/19 08:00 98 Nasal Cannula 3.00 10/05/19 07:14 37.1 10/05/19 07:00 121 10/05/19 06:00 16 164/93 (116) 10/05/19 04:00 35 Capillary Refill : Less Than 3 Seconds General Appearance: No Apparent Distress, Chronically ill Respiratory: Lungs Clear, No Respiratory Distress Cardiovascular: No Murmur, Tachycardia Gastrointestinal: Normal Bowel Sounds, Non Tender, Soft Neurologic/Psychiatric: Alert, Oriented x3 Results/Procedures Lab Laboratory Tests 10/05/19 03:36 Patient resulted labs reviewed. Imaging: Reviewed Imaging Report Assessment/Plan Assessment and Plan Assess & Plan/Chief Complaint ARDS Acute respiratory failure with hypoxia Endotracheally intubated COPD with acute exacerbation - Extubated 10/04 Continue Bumex Continue Zosyn per sensitivities for pseudomonas Continue steroids - Will need speech therapy evaluation prior to oral intake AFIB/Flutter with RVR Continue Lovenox, pharmacy dosing for renal function Continue amiodarone gtt Cardiology consulted, appreciate recs RLE DVT Lovenox Steroid-induced hyperglycemia Continue Levemir SSI Alcohol abuse Morbid obesity Critical Care Critically Ill Patient Diagnosis/Problems Diagnosis/Problems (1) ARDS (adult respiratory distress syndrome) Status: Acute (2) Alcohol use Status: Acute (3) Atrial fibrillation with rapid ventricular response Status: Acute (4) Bilateral pneumonia Status: Acute Qualifiers: Pneumonia type: due to unspecified organism Lung location: lower lobe of lung Qualified Codes: J18.1 - Lobar pneumonia, unspecified organism (5) Acute respiratory failure Status: Acute Qualifiers: Respiratory failure complication: hypoxia Qualified Codes: J96.01 - Acute respiratory failure with hypoxia Clinical Quality Measures DVT/VTE Risk/Contraindication: Risk Factor Score Per Nursin RFS Level Per Nursing on Admit: 4+=Very High BROOKLYN DUNLAP MD Oct 05, 2019 09:27
--- NOTE | 2019-10-05 10:44 | Physical Therapy Evaluation ---
PT Evaluation-General Medical Diagnosis Admission Date Sep 19, 2019 at 19:36 Medical Diagnosis: Acute respiratory failure with hypoxia Onset Date: Oct 20, 2019 Therapy Diagnosis Therapy Diagnosis: impaired mobility, strength, endurance Height/Weight Height (Feet): 5 Height (Inches): 5.00 Weight (Pounds): 218 Weight (Ounces): 0.0 Precautions Precautions/Isolations: Fall Prevention, Standard Precautions Weight Bear Status Right Lower Extremity: Right Weight Bearing/Tolerated Left Lower Extremity: Left Weight Bearing/Tolerated Referral Physician: Nav Reason for Referral: Evaluation/Treatment Medical History Additional Medical History Past Medical History Surgeries: Yes Hysterectomy Respiratory: Yes Pneumonia, Chronic Bronchitis, COPD Cardiac: Yes Hypertension 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 Disorders: Yes Female 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 Disorders: Denies Sexually Transmitted Disease: No HIV/AIDS: No Gastrointestinal: Yes Gastroesophageal Reflux Psychosocial: Yes Bipolar Social History unknown, patient mumbles and you cannot understand her Prior Prior Level of Function SCALE: Activities may be completed with or without assistive devices. 4-Grhwodwvtm-sqwdqps completes the activity by him/herself with no assistance from a helper. 5-Set-up or Clean-up Assistance-helper sets up or cleans up; patient completes activity. [place] assists only prior to or following the activity. 4-Supervision or Touching Assistance-helper provides verbal cues and/or touching/steadying and/or contact guard assistance as patient completes activity. Assistance may be provided throughout the activity or intermittently. 3-Partial/Moderate Assistance-helper does LESS THAN HALF the effort. [place] lifts, holds or supports trunk or limbs, but provides less than half the effort. 2-Substantial/Maximal Assistance-helper does MORE THAN HALF the effort. [place] lifts or holds trunk or limbs and provides more than half the effort. 9-Fcyjmuabv-zarezm does ALL the effort. Patient does none of the effort to complete the activity. Or, the assistance of 2 or more helpers is required for the patient to complete the activity. If activity was not attempted, code reason: 7-Patient Refused. 9-Not Applicable-not attempted and the patient did not perform the activity before the current illness, exacerbation or injury. 10-Not Attempted due to Environmental Limitations-(lack of equipment, weather restraints, etc.). 88-Not Attempted due to Medical Conditions or Safety Concerns. unknown PT Evaluation-Current Subjective Patient in bed pre tx, agrees to PT, has no complaints of pain. Nurse states she can participate in therapy in bed but doesn't want her to sit up or get out of bed yet, patient was extubated yesterday. Pt/Family Goals none stated Objective Patient Orientation: Person, Unable to Assess Attachments: SCD's (only on left side), Oxygen, Osorio Catheter, IV ROM/Strength ROM Lower Extremities limited generally due to BLE edema Strength Lower Extremities 1/5 gross BLE Sensory Hearing: Functional Sensation Right Lower Extremit: Intact Sensation Left Lower Extremity: Intact Treatment APx10 each side, PROM to BLE in all planes. Patient has severe edema in both legs that limits her ROM, she doesn't seem to be able to perform any LE exercises other than ankle pumps. Assessment/Needs Patient has severe edema in both legs that limits her ROM, she doesn't seem to be able to perform any LE exercises other than ankle pumps. Rehab Potential: Guarded PT Snf Goals Almond Blancher Hand Goals PT Almond Blancher Hand Goals Time Frame: Oct 12, 2019 Roll Left & Right (QC): 2 Sit to Lying (QC): 2 Lying-Sitting on Side/Bed(QC): 2 PT Plan Problem List Problem List: Activity Tolerance, Functional Strength, Safety, Balance, Gait, Transfer, Bed Mobility, ROM Treatment/Plan Treatment Plan: Continue Plan of Care Treatment Plan: Bed Mobility, Concurrent Therapy, Education, Functional Activity Lyn, Functional Strength, Gait, Safety, Therapeutic Exercise, Transfers Treatment Duration: Oct 12, 2019 Frequency: 6 times per week Estimated Hrs Per Day: .25 hour per day Patient and/or Family Agrees t: Yes Safety Risks/Education Patient Education: Correct Positioning, Safety Issues Teaching Recipient: Patient Teaching Methods: Demonstration, Discussion Response to Teaching: Reinforcement Needed Discharge Recommendations Plan Patient will perform bed mobility and transfer training, balance and endurance training, functional strengthening, gait training, and education, to improve functional mobility and independence at home. Therapy Discharge Recommendati: Other, See Comments (NH) Time/GCodes Time In: 1022 Time Out: 1032 Total Billed Treatment Time: 10 Total Billed Treatment 1 visit [facility] GLENNA CUMMINS PT Oct 05, 2019 10:44
[2019-10-05] MEDS: AMIODARONE 450 MG/250 ML D5W EXCEL IV SCH ×2 (12:04)
--- NOTE | 2019-10-05 13:09 | Occupational Therapy Eval ---
OT Evaluation-General/PLF Medical Diagnosis Admission Date Sep 19, 2019 at 19:36 Medical Diagnosis: Acute respiratory failure with hypoxia Onset Date: Oct 20, 2019 Therapy Diagnosis Therapy Diagnosis: impaired strength/self care skills Height/Weight Height (Feet): 5 Height (Inches): 5.00 Weight (Pounds): 218 Weight (Ounces): 0.0 Precautions Precautions/Isolations: Fall Prevention, Standard Precautions Safety Interventions: None Referral Physician: Nav Medical History Pertinent Medical History: GERD, HTN Additional Medical History Bipolar, depression, COPD Current History Pt presented to hospital with AMS. Pt had respiratory failure and was intubated. Pt was extubated yesterday. Reviewed History: Yes ADL-Prior Level of Function SCALE: Activities may be completed with or without assistive devices. 2-Vfqkfauaww-qsqktqu completes the activity by him/herself with no assistance from a helper. 5-Set-up or Clean-up Assistance-helper sets up or cleans up; patient completes activity. [place] assists only prior to or following the activity. 4-Supervision or Touching Assistance-helper provides verbal cues and/or touching/steadying and/or contact guard assistance as patient completes activity. Assistance may be provided throughout the activity or intermittently. 3-Partial/Moderate Assistance-helper does LESS THAN HALF the effort. [place] lifts, holds or supports trunk or limbs, but provides less than half the effort. 2-Substantial/Maximal Assistance-helper does MORE THAN HALF the effort. [place] lifts or holds trunk or limbs and provides more than half the effort. 4-Fsqmouxot-pguovm does ALL the effort. Patient does none of the effort to complete the activity. Or, the assistance of 2 or more helpers is required for the patient to complete the activity. If activity was not attempted, code reason: 7-Patient Refused. 9-Not Applicable-not attempted and the patient did not perform the activity before the current illness, exacerbation or injury. 10-Not Attempted due to Environmental Limitations-(lack of equipment, weather restraints, etc.). 88-Not Attempted due to Medical Conditions or Safety Concerns. ADL PLOF Comments Pt unable to provide information regarding PLOF OT Current Status Subjective Spoke with RN who reports pt is okay to participate in therapy as tolerated. Pt resting in bed, agrees to therapy. No reports of pain. Mental Status/Objective Patient Orientation: Person Attachments: Osorio Catheter, IV, Oxygen Current Hand Dominance: Left Upper Extremity ROM Pt has impaired AROM bilateral UE. Pt able to tolerate PROM without c/o pain. Upper Extremity Coordination impaired bilaterally Upper Extremity Strength impaired bilaterally Edema: Pt has edema in bilateral UE ADL-Treatment ADL-Current Pt dependent for ADL tasks at this time secondary to weakness and edema in bilateral UE. Education OT Patient Education: Rehab process Teaching Recipient: Patient Teaching Methods: Discussion Response to Teaching: Reinforcement Needed OT Telephone Exchange Operator Goals Telephone Exchange Operator Goals Time Frame: Oct 19, 2019 Eating (QC): 3 (when cleared for oral intake) Oral Hygiene (QC): 3 Shower/Bathe Self (QC): 2 Upper Body Dressing (QC): 2 Additional Goals: 1-Demonstrate ADL Tasks, 2-Verbalize Understanding, 3- ImproveStrength/Lyn 1=Demonstrate adherence to instructed precautions during ADL tasks. 2=Patient will verbalize/demonstrate understanding of assistive d evices/modifications for ADL. 3=Patient will improve strength/tolerance for activity to enable patient to perform ADL's. OT Education/Plan Problem List/Assessment Assessment: Decreased Activ Tolerance, Decreased UE Strength, Dependent Transfers, Edema, Impaired Bed Mobility, Impaired Coordination, Impaired Funct Balance, Impaired I ADL's, Impaired Self-Care Skills, Restricted Funct UE ROM Pt currently demonstrates impaired strength, mobility, and ADL functioning. Pt to benefit from skilled OT intervention for ADL training, strengthening, and mobility to increase level of independence and allow safe discharge plan. Discharge Recommendations Plan/Recommendations: Continue POC Treatment Plan/Plan of Care Treatment,Training & Education: Yes Patient would benefit from OT for education, treatment and training to promote independence in ADL's, mobility, safety and/or upper extremity function for ADL's. Plan of Care: ADL Retraining, Functional Mobility, UE Funct Exercise/Act Treatment Duration: Oct 19, 2019 Frequency: 5 times per week Estimated Hrs Per Day: .25 hour per day Rehab Potential: Guarded Time/GCodes Start Time: 12:41 Stop Time: 12:53 Total Time Billed (hr/min): 12 Billed Treatment Time 1 visit, EV(12minutes) YOKASTA PECK OT Oct 05, 2019 13:09
--- NOTE | 2019-10-05 15:55 | Cardiology Progress Note ---
Cardiology SOAP Progress Note Subjective: Extubated on 10/05/2019. Objective: I&O/Vital Signs 10/05/19 10/05/19 10/05/19 10/05/19 04:00 04:00 05:00 06:00 Pulse 134 116 120 Resp 20 18 16 B/P (MAP) 180/107 (131) 169/100 (123) 164/93 (116) Pulse Ox 100 97 100 100 O2 Delivery High Flow N/C Mechanical Ventilator High Flow N/C High Flow N/C O2 Flow Rate 3.00 3.00 3.00 FiO2 35 10/05/19 10/05/19 10/05/19 10/05/19 06:55 07:00 07:00 07:14 Temp 37.1 Pulse 120 121 Resp 15 B/P (MAP) 155/93 (113) Pulse Ox 98 100 O2 Delivery High Flow N/C High Flow N/C O2 Flow Rate 2.50 3.00 10/05/19 10/05/19 10/05/19 10/05/19 08:00 08:00 09:00 10:00 Pulse 129 126 131 Resp 18 17 18 B/P (MAP) 176/110 (132) 175/107 (129) 188/118 (141) Pulse Ox 98 100 100 98 O2 Delivery Nasal Cannula High Flow N/C High Flow N/C High Flow N/C O2 Flow Rate 3.00 3.00 3.00 3.00 10/05/19 10/05/19 10/05/19 10/05/19 10:09 11:00 11:26 12:00 Temp 36.2 Pulse 109 104 Resp 16 15 B/P (MAP) 152/88 (109) 158/84 (108) Pulse Ox 98 100 100 O2 Delivery High Flow N/C High Flow N/C High Flow N/C O2 Flow Rate 2.50 3.00 3.00 10/05/19 10/05/19 10/05/19 10/05/19 12:35 13:00 13:00 14:00 Pulse 111 111 115 Resp 19 17 B/P (MAP) 167/87 (113) 173/91 (118) Pulse Ox 98 100 97 O2 Delivery Nasal Cannula High Flow N/C High Flow N/C O2 Flow Rate 3.00 3.00 3.00 10/05/19 10/05/19 14:05 15:00 Pulse 112 Resp 14 B/P (MAP) 169/95 (119) Pulse Ox 98 98 O2 Delivery High Flow N/C High Flow N/C O2 Flow Rate 2.50 3.00 10/05/19 00:00 Intake Total 500 ml Output Total 1600 ml Balance -1100 ml Weight (Pounds): 218 Weight (Ounces): 0.0 Weight (Calculated Kilograms): 98.187368 Constitutional: well-developed, well-nourished Respiratory: No accessory muscle use, No respiratory distress; chest expansion is symmetric, lungs clear to auscultation Cardiovascular: regular rate-rhythm; No JVD; S1 and S2 Gastrointestional: audible bowel sounds Extremities: other (mod bilat LE swelling) Neurologic/Psychiatric: no motor/sensory deficits, alert, normal mood/affect Skin: warm/dry Results/Procedures: Labs Laboratory Tests 10/04/19 17:29: Glucometer 169H 10/04/19 20:54: Glucometer 195H 10/05/19 00:54: Glucometer 206H 10/05/19 03:36: White Blood Count 16.2H, Red Blood Count 3.56L, Hemoglobin 11.1#L, Hematocrit 34L, Mean Corpuscular Volume 94, Mean Corpuscular Hemoglobin 31, Mean Corpuscular Hemoglobin Concent 33, Red Cell Distribution Width 14.9H, Platelet Count 405H, Mean Platelet Volume 9.1, Neutrophils (%) (Auto) 95H, Lymphocytes (%) (Auto) 3L, Monocytes (%) (Auto) 2, Eosinophils (%) (Auto) 0, Basophils (%) (Auto) 0, Neutrophils # (Auto) 15.4H, Lymphocytes # (Auto) 0.6L, Monocytes # (Auto) 0.2, Eosinophils # (Auto) 0.0, Basophils # (Auto) 0.0, Sodium Level 137, Potassium Level 3.1L, Chloride Level 95L, Carbon Dioxide Level 25, Anion Gap 17H , Blood Urea Nitrogen 22H, Creatinine 0.82, Estimat Glomerular Filtration Rate > 60, BUN/Creatinine Ratio 27, Glucose Level 175H, Calcium Level 9.2, Phosphorus Level 3.3, Magnesium Level 1.9 10/05/19 05:26: Glucometer 174H 10/05/19 11:28: Glucometer 147H Microbiology 12/27/19 Gram Stain - Final, Complete 09/30/19 Sputum Culture - Final, Complete Pseudomonas aeruginosa Pseudomonas aeruginosa#2 09/26/19 Blood Culture - Final, Complete No growth A/P: Assessment/Dx: Acute resp failure, ARDS, likely due to COPD exacerbated by aspiration pneumonia Acute renal failure, likely ATN due to hypotension due to sepsis Hyperkalemia/hypermag likely secondary to renal failure PAF/flutter, currently sinus tachycardia. Hypotension due to sepsis and propofol (post-intubation) Elevated troponin - likely type 2 SC d/t hypoxia Card cath of 09/07/18: minimal CAD, LVEF 70-75%, elevated LVEDP Echo of 09/20/19: LVEF 50-55%, RVSP 35 mmHg H/o opiate addiction ETOH abuse Chronic tobacco use Fam h/o early CAD Hyperlipidemia Borderline DM II (fasting blood glucose on 09/07/18) Carotid u/s on 01/05/19: no significant dz Plan: Plan: * Prognosis guarded * ARDS, extubated today. * Monitor lab closely * IV hydralazine for blood pressure control. Thank you for your consultation. Please call me if you have any questions. Taz Velazco MD, FACP, FACC, FSCAI, FHRS, CCDS Interventional Cardiology Cardiac Electrophysiology Vascular Medicine and Endovascular Interventions Graciela VELAZCO MD Oct 05, 2019 15:55
[2019-10-05] MEDS: methylPREDNISolone 125 MG (Solu-MEDROL) VIAL IV SCH (16:32)
[2019-10-05] MEDS: PIPERACILLIN/TAZOBACTAM (BULK) 4.5 GM in NS (IVPB) 100 ML IV SCH (16:38)
--- NOTE | 2019-10-05 17:05 | NUR ---
PT C/O OF " UPSET STOMACH" PT REQUESTING NAUSEA MEDICATION. DR DUNLAP NOTIFIED AND NEW ORDERS RECEIVED FOR ZOFRAN 4MG IV EVERY 4 HRS PRN.
[2019-10-05] MEDS: ONDANSETRON 4 MG/2 ML (SDV) Z0FRAN IVP PRN (17:38)
--- NOTE | 2019-10-05 19:50 | NUR ---
FAMILY NOTIFIED THIS RN OF PT HAVING A SEIZURE. SEIZURE BEGAN AT 1944 AND LASTED UNTIL 1947 WITH NO APPARENT INJURIES OCCURRING. DR. DUNLAP NOTIFIED AND GAVE NEW ORDERS AT THIS TIME FOR 500 MG KEPPRA IV BID AND 2MG IV ATIVAN PRN SEIZURE ACTIVITY.
[2019-10-05] MEDS ORDERED: LEVETIRACETAM 500 MG/5 ML (KEPPRA) VIAL IV ONE (20:04)
[2019-10-05] MEDS ORDERED: NS (IVPB) 100 ML ONE (20:14)
[2019-10-05] MEDS ORDERED: LORazepam INJ 2 MG/ML (ATIVAN) VIAL IVP PRN (20:15)
[2019-10-05] MEDS: FAMOTIDINE 20 MG (PEPCID) TABLET GT SCH (20:25)
[2019-10-05] MEDS: LEVETIRACETAM INJECTION 500 MG in NS (IVPB) 100 ML IV SCH (20:25)
[2019-10-06] VITALS (27 sets, daily range): BP systolic 121–179; BP diastolic 67–104
[2019-10-06] MEDS: hydrALAZINE (APESOLINE) 20 MG/ML VIAL IV SCH ×6 (00:23→20:50)
[2019-10-06] MEDS: meTOprolol 5 MG/5 ML (LOPRESSOR) VIAL IV SCH ×4 (00:24→18:09)
[2019-10-06] MEDS: PIPERACILLIN/TAZOBACTAM (BULK) 4.5 GM in NS (IVPB) 100 ML IV SCH ×3 (00:24→15:48)
[2019-10-06] MEDS: RT-ALBUTEROL/IPRATROPIUM 3 ML (DUONEB) VIAL INH SCH ×7 (01:11→22:57)
[2019-10-06] MEDS: aCETylcysteine 20% (MUCOMYST) 30ML SOLN VIAL INH SCH ×7 (01:11→22:57)
--- NOTE | 2019-10-06 01:13 | NUR ---
PT DE-SATING IN HIGH 80'S ON HIGH-FLOW NC AT 5L. LUNGS SOUNDS ARE COURSE AND WET. RT NOTIFIED FOR BREATHING TX AND E-ICU NOTIFIED OF CHANGE IN PT's OXYGEN STATUS. ORDER RECEIVED AT THIS TIME FOR BIPAP.
--- NOTE | 2019-10-06 01:16 | NUR ---
RECEIVED ORDERS FROM DR. YUNG FOR METOPROLOL 10 MG IV ONCE NOW AND HYDRALAZINE 20 MG IV ONCE NOW. THIS RN CALLED E-ICU TO CLARIFY THIS ORDER TOPROL AND HYDRALAZINE WERE ADMINISTERED AT APPROX 0045. THIS RN WILL HOLD THESE ORDERS AND CONTINUE TO MONITOR PT's BLOOD PRESSURE AND NOTIFY E-ICU IN 30 MINS FOR FURTHER ORDERS REQUESTED BY E-ICU.
[2019-10-06] MEDS: inSUlin ASPART (NovoLOG) 1 UNIT/0.01 ML (CHARGE PER UNIT) SC SCH ×4 (01:23→18:10)
--- NOTE | 2019-10-06 01:35 | NUR ---
E-ICU NOTIFIED OF CONTINUED HYPERTENSION- 160's SYSTOLIC. METOPROLOL AND HYDRALAZINE GIVEN PER DR. YUNG's ORDER
[2019-10-06] MEDS ORDERED: hydrALAZINE (APESOLINE) 20 MG/ML VIAL IV ONE (01:45)
[2019-10-06] MEDS ORDERED: meTOprolol 5 MG/5 ML (LOPRESSOR) VIAL IV ONE (01:45)
[2019-10-06] MEDS: DEXMEDETOMIDINE 1,000 MCG/NS 250 ML IV SCH ×4 (01:48→18:13)
[2019-10-06 03:15] LABS: BASOPHILS % (AUTO) 0 % (0-10); EOSINOPHILS % (AUTO) 0 % (0-10); HEMATOCRIT 30 % (35-52); HEMOGLOBIN 9.7 G/DL (11.5-16.0); LYMPHOCYTES # (AUTO) 0.5 X 10^3 (1.0-4.0); LYMPHOCYTES % (AUTO) 5 % (12-44); MEAN CORPUSCULAR HEMOGLOBIN 31 PG (25-34); MEAN CORPUSCULAR HGB CONC 33 G/DL (32-36); MEAN CORPUSCULAR VOLUME 96 FL (80-99); MEAN PLATELET VOLUME 8.7 FL (7.4-10.4); MONOCYTES # (AUTO) 0.2 X 10^3 (0.0-1.0); MONOCYTES % (AUTO) 2 % (0-12); NEUTROPHILS # (AUTO) 9.9 X 10^3 (1.8-7.8); NEUTROPHILS % (AUTO) 93 % (42-75); PLATELET COUNT 377 10^3/uL (130-400); WHITE BLOOD COUNT 10.6 10^3/uL (4.3-11.0)
[2019-10-06 03:41] LABS: ABG BASE EXCESS 9.5 MMOL/L (-2.5-2.5); ABG OXYGEN SATURATION 99 % (94-100); ABG PCO2 44 MMHG (35-45); ABG PO2 103 MMHG (79-93); ABG TCO2 34.9 MMOL/L (21.0-31.0); ALLENS TEST YES-POS; INSPIRED O2 50; VENTILATOR NO
[2019-10-06 03:42] LABS: PATIENT TEMP 36.2
[2019-10-06 04:01] LABS: BUN/CREATININE RATIO 29; CALCIUM 8.8 MG/DL (8.5-10.1); CARBON DIOXIDE 27 MMOL/L (21-32); CHLORIDE 97 MMOL/L (98-107); CREATININE SERUM 0.77 MG/DL (0.60-1.30); GFR ESTIMATED > 60; GLUCOSE 155 MG/DL (70-105); MAGNESIUM 1.8 MG/DL (1.6-2.4); PHOSPHORUS 3.7 MG/DL (2.3-4.7); SODIUM 138 MMOL/L (135-145)
[2019-10-06] MEDS: KCL 20 MEQ TAB (K-DUR) PO SCH (04:12)
[2019-10-06] MEDS: POTASSIUM CL 10MEQ/50ML IVPB 50 ML IV SCH ×11 (04:12→21:34)
[2019-10-06] MEDS: MAGNESIUM 1 GM/100 ML IVPB 100 ML IV SCH (04:12)
[2019-10-06] MEDS: hydrALAZINE (APRESOLINE) 25 MG TAB PO SCH ×5 (04:13→21:34)
[2019-10-06] MEDS: AMIODARONE 450 MG/250 ML D5W EXCEL IV SCH ×4 (04:27→21:31)
[2019-10-06] MEDS: guaiFENesin SYRUP 100 MG/5 ML 10 ML (ROBITUSSIN SF) PO SCH ×3 (04:34→22:34)
[2019-10-06] MEDS: CALCIUM ACETATE 667 MG CAP (PHOSLO) PO SCH ×3 (04:35→18:08)
[2019-10-06] MEDS: ENOXAPARIN 100 MG/1 ML (LOVENOX) SYR SC SCH ×2 (05:11→18:09)
[2019-10-06] MEDS ORDERED: POTASSIUM CL 10MEQ/50ML IVPB 50 ML IV ONE (06:00)
--- NOTE | 2019-10-06 07:13 | Pulmonary Progress Note ---
Subjective Time Seen by a Provider: 08:02 Sepsis Event Evaluation Height, Weight, BMI Height: 5'5.00" Weight: 218lbs. 0.0oz. 98.282885me; 34.07 BMI Method:Stated Exam Exam Vital Signs Date Time Temp Pulse Resp B/P (MAP) Pulse Ox O2 Delivery O2 Flow Rate FiO2 10/06/19 06:00 89 16 138/70 (92) 97 NIV Bilevel 50.00 10/06/19 05:25 NIV Bilevel 50.00 10/06/19 05:00 106 17 155/85 (108) 96 NIV Bilevel 100.00 10/06/19 04:40 NIV Bilevel 100.00 10/06/19 04:10 36.2 10/06/19 04:00 97 15 153/80 (104) 96 NIV Bilevel 50.00 10/06/19 04:00 96 NIV Bilevel 50 10/06/19 03:00 98 14 156/76 (102) 96 NIV Bilevel 50.00 10/06/19 02:00 91 13 151/77 (101) 96 NIV Bilevel 50.00 10/06/19 01:46 113 95 50.00 113 50.00 10/06/19 01:05 NIV Bilevel 50.00 10/06/19 01:01 113 95 60.00 113 50.00 10/06/19 01:00 114 19 169/89 (115) 88 NIV Bilevel 100.00 10/06/19 01:00 114 10/06/19 00:41 High Flow N/C 5.00 10/06/19 00:00 92 High Flow N/C 3.00 10/06/19 00:00 112 14 173/98 (123) 94 High Flow N/C 3.00 10/05/19 23:00 120 16 176/102 (126) 93 High Flow N/C 3.00 10/05/19 22:00 126 23 171/100 (123) 91 High Flow N/C 3.00 10/05/19 21:29 93 High Flow N/C 4.00 10/05/19 21:00 124 24 184/107 (132) 95 High Flow N/C 3.00 10/05/19 20:00 36.5 10/05/19 20:00 94 Nasal Cannula 3.00 10/05/19 20:00 112 17 187/102 (130) 92 High Flow N/C 3.00 10/05/19 19:00 120 21 195/107 (136) 90 High Flow N/C 3.00 10/05/19 19:00 120 10/05/19 18:46 94 High Flow N/C 1.50 10/05/19 18:00 106 23 176/93 (120) 97 High Flow N/C 3.00 10/05/19 17:00 125 20 175/101 (125) 93 High Flow N/C 3.00 10/05/19 16:45 98 Nasal Cannula 3.00 10/05/19 16:00 115 17 178/101 (126) 91 High Flow N/C 3.00 10/05/19 15:31 36.7 10/05/19 15:00 112 14 169/95 (119) 98 High Flow N/C 3.00 10/05/19 14:05 98 High Flow N/C 2.50 10/05/19 14:00 115 17 173/91 (118) 97 High Flow N/C 3.00 10/05/19 13:00 111 19 167/87 (113) 100 High Flow N/C 3.00 10/05/19 13:00 111 10/05/19 12:35 98 Nasal Cannula 3.00 10/05/19 12:00 104 15 158/84 (108) 100 High Flow N/C 3.00 10/05/19 11:26 36.2 10/05/19 11:00 109 16 152/88 (109) 100 High Flow N/C 3.00 10/05/19 10:09 98 High Flow N/C 2.50 10/05/19 10:00 131 18 188/118 (141) 98 High Flow N/C 3.00 10/05/19 09:00 126 17 175/107 (129) 100 High Flow N/C 3.00 10/05/19 08:00 129 18 176/110 (132) 100 High Flow N/C 3.00 10/05/19 08:00 98 Nasal Cannula 3.00 10/05/19 07:14 37.1 I & O 10/06/19 07:00 Intake Total 1275 ml Output Total 2765 ml Balance -1490 ml Height & Weight Height: 5'5.00" Weight: 218lbs. 0.0oz. 98.997235we; 34.07 BMI Method:Stated General Appearance: No Apparent Distress, Chronically ill HEENT: Other Neck: Supple, Other (Bleeding at site of right IJ, very slow ooze) Respiratory: Lungs Clear, No Respiratory Distress Cardiovascular: No Murmur, Tachycardia Capillary Refill: Less Than 3 Seconds Gastrointestinal: soft, no organomegaly, no pulsatile mass Extremity: Pedal Edema (R>L ) Neurologic/Psychiatric: Alert, Oriented x3 Skin: Warm/Dry Lymphatic: No Adenopathy Results Lab Laboratory Tests 10/05/19 03:36 10/06/19 03:05 Assessment/Plan Assessment/Plan Acute on chronic respiratory failure -- ARDS - -Intubated on 09/19 -Will attempt to transfer to [facility]. I will be out of town after today. -Pt does not tolerate turning secondary to desaturations. -WBC is going up. Solucortef was d/c'd yesterday -Repeat CBC - if WBC still higher then yesterday will add vancomycin -Repeat haddad cultures -Continue vent -Propofol, and precedex -Tolerating TF - -Continue Bumex -Continue to titrate Fi02 as tolerated Leukocytosis -Possibly secondary to steroids -d/c solucortef Atelectasis -Monitor RLL DVT -CTA was negative for PE -Lovenox therapeutic dosing Aflutter - Ammio per cardiology Bilateral PNA - Sputum is showing Pseudomonus -- -Zosyn -Influenza is negative Hypotension -- Now hypertensive -D/C Solucortef 09/25 COPDAE -Duoneb -Steroids Afib/Flutter RVR -Cardiology following JACLYN SAVAGE DO Oct 06, 2019 07:13
[2019-10-06] MEDS ORDERED: ENALAPRILAT 2.5 MG/2 ML (VASOTEC) VIAL IV PRN (07:15)
--- NOTE | 2019-10-06 07:30 | Diagnostic Imaging Report ---
INDICATION: Dyspnea. COMPARISON: 10/05/2019 FINDINGS: Single frontal radiograph view of the chest was obtained and demonstrates persistent borderline, mild cardiomegaly. Pulmonary vasculature however is within normal limits. Lungs continue to show bibasilar effusions, right greater than left. Overall, aeration is stable. There is no pneumothorax. Right internal jugular central venous catheter is present with tip in the SVC. IMPRESSION: 1. Stable exam of chest showing mild cardiomegaly and bibasilar effusions. Dictated by: Dictated on workstation # [id number]
[2019-10-06] MEDS: LEVETIRACETAM INJECTION 500 MG in NS (IVPB) 100 ML IV SCH ×2 (07:57→20:51)
[2019-10-06] MEDS: FAMOTIDINE 20MG/2ML IV (PEPCID) IVP SCH ×2 (07:57→20:50)
[2019-10-06] MEDS: BUMETANIDE 1 MG/4 ML (BUMEX) VIAL IV SCH ×2 (07:57→20:51)
[2019-10-06] MEDS: AMIODARONE 200 MG (CORDARONE) TAB NG SCH ×2 (08:04→21:34)
--- NOTE | 2019-10-06 08:16 | Progress Note - Hospitalist ---
Subjective HPI/CC On Admission Date Seen by Provider: Oct 06, 2019 Time Seen by Provider: 08:12 Helene is a 54 y/o female that presented to via [facility] due to altered mental status. The following information was obtained from ER chart. Patient is currently intubated and sedated and has no family at the bedside at this time. She was brought in via EMS and was reportedly found at home after two days of no contact. She was unresponsive and was sitting in urine. There is concern of alcohol and narcotic use. She currently smokes 3 packs of cigarettes a day. She arrived to the ER with a fever and was hypoxic. The patient is requiring intubation and FiO2 of 100%. She received both chest CT and X-ray. Chest CT is showing extensive airspace consolidation with the right middle lobe, right lower lobe, left lower lobe possibly related to aspiration, pneumonia, or other alveolar consolidative processes.Chest X-ray showed nonspecific bibasilar airspace consolidation with probable bilateral pleural effusions. Subjective/Events-last exam Pt is somewhat drowsy. Denies any complaints. Reviewed events from last night. Objective Exam Vital Signs Vital Signs Date Time Temp Pulse Resp B/P (MAP) Pulse Ox O2 Delivery O2 Flow Rate FiO2 10/06/19 08:00 98 21 172/103 (126) 95 NIV Bilevel 80.00 10/06/19 04:10 36.2 10/06/19 04:00 50 Capillary Refill : Less Than 3 Seconds General Appearance: Chronically ill, Other (drowsy) Respiratory: Decreased Breath Sounds, Other (on BiPAP) Cardiovascular: Regular Rate, Rhythm, No Murmur Gastrointestinal: Normal Bowel Sounds, Non Tender, Soft Neurologic/Psychiatric: Alert, Other (drowsy and on precedex) Results/Procedures Lab Laboratory Tests 10/06/19 03:05 Patient resulted labs reviewed. Imaging: Reviewed Imaging Report Assessment/Plan Assessment and Plan Assess & Plan/Chief Complaint ARDS Acute respiratory failure with hypoxia Endotracheally intubated COPD with acute exacerbation - Extubated 10/04 - Pulm consulted, appreciate recs Continue Bumex Continue Zosyn per sensitivities for pseudomonas - Repeat culture to make sure they have cleared Continue steroids - Will need speech therapy evaluation prior to oral intake AFIB/Flutter with RVR HTN Continue Lovenox, pharmacy dosing for renal function Continue amiodarone gtt - Metoprolol scheduled Cardiology consulted, appreciate recs - Vasotec added Seizure like activity - Continue Keppra - ?withdrawal from benzos - mag normal RLE DVT Lovenox Steroid-induced hyperglycemia Continue Levemir SSI Alcohol abuse Morbid obesity Critical Care Critically Ill Patient Diagnosis/Problems Diagnosis/Problems (1) ARDS (adult respiratory distress syndrome) Status: Acute (2) Alcohol use Status: Acute (3) Atrial fibrillation with rapid ventricular response Status: Acute (4) Bilateral pneumonia Status: Acute Qualifiers: Pneumonia type: due to unspecified organism Lung location: lower lobe of lung Qualified Codes: J18.1 - Lobar pneumonia, unspecified organism (5) Acute respiratory failure Status: Acute Qualifiers: Respiratory failure complication: hypoxia Qualified Codes: J96.01 - Acute respiratory failure with hypoxia Clinical Quality Measures DVT/VTE Risk/Contraindication: Risk Factor Score Per Nursin RFS Level Per Nursing on Admit: 4+=Very High BROOKLYN DUNLAP MD Oct 06, 2019 08:16
--- NOTE | 2019-10-06 08:21 | Speech Therapy Progress Note ---
Therapy Progress Note ST attempted to evaluate. Patient is on BiPap and resting at this time. ST to follow up later today. BRIAN CORTES Oct 06, 2019 08:21
[2019-10-06] MEDS: ENALAPRILAT 1.25 MG/1 ML (VASOTEC) 1 ML VIAL IV PRN (09:52)
--- NOTE | 2019-10-06 10:28 | Physical Therapy Daily Note ---
PT Daily Note-Current Subjective Patient in bed pre tx, has bipap on now, will open eyes occasionally but very lethargic, nurse states she had a seizure last night. Appearance Patient in bed post tx with nurse call, phone, tray, all needs met. Mental Status Patient Orientation: Unresponsive Attachments: Oxygen, Osorio Catheter, IV Transfers SCALE: Activities may be completed with or without assistive devices. 4-Gjxtlrmmdj-jhngrpf completes the activity by him/herself with no assistance from a helper. 5-Set-up or Clean-up Assistance-helper sets up or cleans up; patient completes activity. Latimer assists only prior to or following the activity. 4-Supervision or Touching Assistance-helper provides verbal cues and/or touching/steadying and/or contact guard assistance as patient completes activity. Assistance may be provided throughout the activity or intermittently. 3-Partial/Moderate Assistance-helper does LESS THAN HALF the effort. Latimer lifts, holds or supports trunk or limbs, but provides less than half the effort. 2-Substantial/Maximal Assistance-helper does MORE THAN HALF the effort. Latimer lifts or holds trunk or limbs and provides more than half the effort. 0-Prvprkkxj-kmacud does ALL the effort. Patient does none of the effort to complete the activity. Or, the assistance of 2 or more helpers is required for the patient to complete the activity. If activity was not attempted, code reason: 7-Patient Refused. 9-Not Applicable-not attempted and the patient did not perform the activity before the current illness, exacerbation or injury. 10-Not Attempted due to Environmental Limitations-(lack of equipment, weather restraints, etc.). 88-Not Attempted due to Medical Conditions or Safety Concerns. Weight Bearing Right Lower Extremity: Right Weight Bearing/Tolerated Left Lower Extremity: Left Weight Bearing/Tolerated Treatments BLE PROM in all planes, patient encouraged to participate for AAROM but she oleary sn't. Assessment Current Status: Poor Progress no patient participation PT Foreign Broadcast Specialist Goals [facility] Goals PT Foreign Broadcast Specialist Goals Time Frame: Oct 12, 2019 Roll Left & Right (QC): 2 Sit to Lying (QC): 2 Lying-Sitting on Side/Bed(QC): 2 PT Plan Problem List Problem List: Activity Tolerance, Functional Strength, Safety, Balance, Gait, Transfer, Bed Mobility, ROM Treatment/Plan Treatment Plan: Continue Plan of Care Treatment Plan: Bed Mobility, Concurrent Therapy, Education, Functional Activity Lyn, Functional Strength, Gait, Safety, Therapeutic Exercise, Transfers Treatment Duration: Oct 12, 2019 Frequency: 6 times per week Estimated Hrs Per Day: .25 hour per day Patient and/or Family Agrees t: Yes Safety Risks/Education Patient Education: Correct Positioning, Safety Issues Teaching Recipient: Patient Teaching Methods: Demonstration, Discussion Response to Teaching: Reinforcement Needed Time/GCodes Time In: 0950 Time Out: 1000 Total Billed Treatment Time: 10 Total Billed Treatment 1 visit EX GLENNA CUMMINS PT Oct 06, 2019 10:28
[2019-10-06] MEDS: hydrALAZINE (APESOLINE) 20 MG/ML VIAL IV PRN (10:38)
[2019-10-06] MEDS: fentaNYL INJECTION 100 MCG/2 ML AMP IVP PRN (11:28)
--- NOTE | 2019-10-06 12:50 | NUR ---
Pastoral care visit.
--- NOTE | 2019-10-06 12:58 | Speech Therapy Progress Note ---
Therapy Progress Note ST attempted to complete Bedside Dysphagia Evaluation, however patient is still on BiPap and is unable to participate at this time. ST to follow up tomorrow. BRIAN CORTES Oct 06, 2019 12:58
--- NOTE | 2019-10-06 13:18 | Occ Therapy Progress Note ---
Therapy Progress Note OT attempted tx at this time. Pt lethargic and has difficulty keeping eyes open. Pt opens eyes to her name but closes eyes shortly after. OT encouraged pt to participate in AAROM exercises but pt closed her eyes and did not activate any muscles for movements. OT asked pt questions and she did not verbalize a response. Pt is lethargic and unable to participate in skilled therapy on this date. OT will attempt again tomorrow. 1, visit. REECE MOISE OT Oct 06, 2019 13:18
[2019-10-06 14:57] LABS: BUN/CREATININE RATIO 28; CALCIUM 9.1 MG/DL (8.5-10.1); CARBON DIOXIDE 28 MMOL/L (21-32); CHLORIDE 98 MMOL/L (98-107); CREATININE SERUM 0.78 MG/DL (0.60-1.30); GFR ESTIMATED > 60; GLUCOSE 139 MG/DL (70-105); MAGNESIUM 1.8 MG/DL (1.6-2.4); PHOSPHORUS 3.5 MG/DL (2.3-4.7); POTASSIUM 3.2 MMOL/L (3.6-5.0); SODIUM 140 MMOL/L (135-145)
--- NOTE | 2019-10-06 15:58 | NUR ---
DR SAVAGE NOTIFIED OF LAB RESULTS NEW ORDERS RECEIVED TO GIVE 60 MEQ POTASSIUM IV. ORDERS ENTERED.
--- NOTE | 2019-10-06 16:58 | Cardiology Progress Note ---
Cardiology SOAP Progress Note Subjective: No significant cardiac complaints. Objective: I&O/Vital Signs 10/06/19 10/06/19 10/06/19 10/06/19 05:00 05:25 06:00 07:00 Pulse 106 89 94 Resp 17 16 24 B/P (MAP) 155/85 (108) 138/70 (92) 162/90 (114) Pulse Ox 96 97 97 O2 Delivery NIV Bilevel NIV Bilevel NIV Bilevel NIV Bilevel O2 Flow Rate 100.00 50.00 50.00 80.00 10/06/19 10/06/19 10/06/19 10/06/19 07:00 08:00 08:15 09:00 Pulse 96 98 104 Resp 21 24 B/P (MAP) 172/103 (126) 175/100 (125) Pulse Ox 95 95 92 O2 Delivery NIV Bilevel NIV Bilevel Vapotherm O2 Flow Rate 80.00 50.00 40.00 100.00 FiO2 60 10/06/19 10/06/19 10/06/19 10/06/19 09:06 09:48 10:00 10:48 Pulse 115 112 113 Resp 19 B/P (MAP) 179/104 (129) Pulse Ox 90 94 95 O2 Delivery Vapotherm NIV Bilevel NIV Bilevel O2 Flow Rate 40.00 80.00 80.00 100.00 FiO2 100 10/06/19 10/06/19 10/06/19 10/06/19 11:00 12:00 12:00 12:27 Temp 35.9 Pulse 115 118 Resp 18 23 B/P (MAP) 168/95 (119) 160/89 (112) Pulse Ox 94 90 95 O2 Delivery NIV Bilevel NIV Bilevel NIV Bilevel O2 Flow Rate 80.00 80.00 50.00 FiO2 60 10/06/19 10/06/19 10/06/19 10/06/19 12:29 13:00 14:00 14:20 Pulse 117 100 115 112 Resp 18 23 19 B/P (MAP) 146/88 (107) 163/97 (119) Pulse Ox 94 91 91 O2 Delivery NIV Bilevel NIV Bilevel O2 Flow Rate 80.00 80.00 100.00 10/06/19 10/06/19 10/06/19 10/06/19 15:00 16:00 16:00 16:48 Temp 35.6 Pulse 111 109 Resp 18 19 B/P (MAP) 121/71 (88) 126/67 (86) Pulse Ox 92 94 95 O2 Delivery NIV Bilevel NIV Bilevel NIV Bilevel O2 Flow Rate 80.00 80.00 50.00 FiO2 60 10/06/19 00:00 Intake Total 225 ml Output Total 1050 ml Balance -825 ml Weight (Pounds): 218 Weight (Ounces): 0.0 Weight (Calculated Kilograms): 98.669898 Constitutional: well-developed, well-nourished Respiratory: No accessory muscle use, No respiratory distress; chest expansion is symmetric, lungs clear to auscultation Cardiovascular: regular rate-rhythm; No JVD; S1 and S2 Gastrointestional: audible bowel sounds Extremities: other (mod bilat LE swelling) Neurologic/Psychiatric: no motor/sensory deficits, alert, normal mood/affect Skin: warm/dry Results/Procedures: Labs Laboratory Tests 10/05/19 17:45: Glucometer 131H 10/06/19 01:07: Glucometer 172H 10/06/19 03:05: White Blood Count 10.6, Red Blood Count 3.10L, Hemoglobin 9.7L, Hematocrit 30L, Mean Corpuscular Volume 96, Mean Corpuscular Hemoglobin 31, Mean Corpuscular Hemoglobin Concent 33, Red Cell Distribution Width 15.0H, Platelet Count 377, Mean Platelet Volume 8.7, Neutrophils (%) (Auto) 93H, Lymphocytes (%) (Auto) 5L, Monocytes (%) (Auto) 2, Eosinophils (%) (Auto) 0, Basophils (%) (Auto) 0, Neutrophils # (Auto) 9.9H, Lymphocytes # (Auto) 0.5L, Monocytes # (Auto) 0.2, Eosinophils # (Auto) 0.0, Basophils # (Auto) 0.0, Sodium Level 138, Potassium Level 3.0L, Chloride Level 97L, Carbon Dioxide Level 27, Anion Gap 14, Blood Urea Nitrogen 22H, Creatinine 0.77, Estimat Glomerular Filtration Rate > 60, BUN/Creatinine Ratio 29, Glucose Level 155H, Calcium Level 8.8, Phosphorus Level 3.7, Magnesium Level 1.8, Triglycerides Level 362H 10/06/19 03:35: Blood Gas Puncture Site R RAD, Blood Gas Patient Temperature 36.2, Arterial Blood pH 7.50H, Arterial Blood Partial Pressure CO2 44, Arterial Blood Partial Pressure O2 103H, Arterial Blood HCO3 34H, Arterial Blood Total CO2 34.9H, Arterial Blood Oxygen Saturation 99, Arterial Blood Base Excess 9.5H, Jame Test YES-POS, Blood Gas Ventilator Setting NO, Blood Gas Inspired Oxygen 50 10/06/19 11:12: Glucometer 123H 10/06/19 14:30: Sodium Level 140, Potassium Level 3.2L, Chloride Level 98, Carbon Dioxide Level 28, Anion Gap 14, Blood Urea Nitrogen 22H, Creatinine 0.78, Estimat Glomerular Filtration Rate > 60, BUN/Creatinine Ratio 28, Glucose Level 139H, Calcium Level 9.1, Phosphorus Level 3.5, Magnesium Level 1.8 Microbiology 09/30/19 Gram Stain - Final, Complete 09/30/19 Sputum Culture - Final, Complete Pseudomonas aeruginosa Pseudomonas aeruginosa#2 09/26/19 Blood Culture - Final, Complete No growth A/P: Assessment/Dx: Acute resp failure, ARDS, likely due to COPD exacerbated by aspiration pneumonia, extubated. Acute renal failure, likely ATN due to hypotension due to sepsis Hyperkalemia/hypermag likely secondary to renal failure PAF/flutter, currently sinus tachycardia. Elevated troponin - likely type 2 DC d/t hypoxia Card cath of 09/07/18: minimal CAD, LVEF 70-75%, elevated LVEDP Echo of 09/20/19: LVEF 50-55%, RVSP 35 mmHg H/o opiate addiction ETOH abuse Chronic tobacco use Fam h/o early CAD Hyperlipidemia Borderline DM II (fasting blood glucose on 09/07/18) Carotid u/s on 01/05/19: no significant dz Plan: Plan: * Prognosis reasonable. * ARDS, extubated. * Monitor lab closely * IV hydralazine for blood pressure control. Thank you for your consultation. Please call me if you have any questions. Taz Velazco MD, FACP, FACC, FSCAI, FHRS, CCDS Interventional Cardiology Cardiac Electrophysiology Vascular Medicine and Endovascular Interventions Graciela VELAZCO MD Oct 06, 2019 16:58
[2019-10-06] MEDS: methylPREDNISolone 125 MG (Solu-MEDROL) VIAL IV SCH (18:08)
--- NOTE | 2019-10-06 20:04 | NUR ---
1929 DR SAVAGE NOTIFIED OF PT'S SA02 SATURATIONS AND BIPAP SETTINGS, 1939 ORDERS RECEIVED TO OBTAIN ABG
[2019-10-06 20:09] LABS: ABG BASE EXCESS 8.7 MMOL/L (-2.5-2.5); ABG OXYGEN SATURATION 89 % (94-100); ABG PCO2 55 MMHG (35-45); ABG PO2 62 MMHG (79-93); ABG TCO2 35.4 MMOL/L (21.0-31.0)
[2019-10-06 20:10] LABS: ALLENS TEST POSITIVE; INSPIRED O2 100%; PATIENT TEMP 36.8; VENTILATOR NO
[2019-10-06 23:24] LABS: ABG OXYGEN SATURATION 84 % (94-100); ABG PCO2 56 MMHG (35-45); ABG PH 7.36 (7.37-7.43); ABG PO2 58 MMHG (79-93); ABG TCO2 33.1 MMOL/L (21.0-31.0)
[2019-10-06 23:25] LABS: ALLENS TEST POS
[2019-10-06 23:26] LABS: INSPIRED O2 80%; PATIENT TEMP 36.6; VENTILATOR NO
[2019-10-07] VITALS (31 sets, daily range): BP systolic 99–173; BP diastolic 42–96
[2019-10-07] MEDS: hydrALAZINE (APRESOLINE) 25 MG TAB PO SCH ×6 (00:03→21:32)
[2019-10-07] MEDS: inSUlin ASPART (NovoLOG) 1 UNIT/0.01 ML (CHARGE PER UNIT) SC SCH ×4 (00:03→18:27)
[2019-10-07] MEDS: hydrALAZINE (APESOLINE) 20 MG/ML VIAL IV SCH ×6 (00:08→21:32)
[2019-10-07] MEDS: meTOprolol 5 MG/5 ML (LOPRESSOR) VIAL IV SCH ×4 (00:08→18:26)
[2019-10-07] MEDS: PIPERACILLIN/TAZOBACTAM (BULK) 4.5 GM in NS (IVPB) 100 ML IV SCH ×2 (00:08→09:23)
[2019-10-07] MEDS ORDERED: NS IV 1000 ML 1,000 ML ONE (00:47)
[2019-10-07] MEDS ORDERED: NOREPINEPHRINE 4 MG/4 ML (LEVOPHED) AMP IV ONE (01:20)
[2019-10-07] MEDS: RT-ALBUTEROL/IPRATROPIUM 3 ML (DUONEB) VIAL INH SCH ×6 (01:20→22:06)
[2019-10-07] MEDS: aCETylcysteine 20% (MUCOMYST) 30ML SOLN VIAL INH SCH ×6 (01:20→22:07)
[2019-10-07] MEDS ORDERED: NS (IVPB) 250 ML ONE (01:20)
--- NOTE | 2019-10-07 01:50 | Anesthesia-Procedure Note ---
Procedures/Interventions Procedure Start/Stop/Diagnosis Date of Procedure: Oct 07, 2019 Start Time: 01:00 Stop Time: 01:45 Intubation RSI: Yes 100% pre-Ox, [id number]: Yes Intubation Method: orotracheal Videoscope used: Yes Grade View: 2 Medications: Propofol (150), Rocuronium (50), Succinylcholine (80) Mask Ventilation: positive Positive End Tide CO2: Yes Breath Sounds after Intubation: bilateral-equal ETT Securred @ (cm): 22 Intubated with ease: Yes Intubation Complications: vomited, apparent aspiration, O2 saturation decreased Post Intubation Xray-done: Yes Post Procedure vomitted bile contents noted during intubation. suctioned airway and rapidly intubated. lungs suctioned. albuterol given. post intubation bronchospasm suspected and treated with 150 mcg iv epinephrine with sats returning to 90% which was baseline. EICU managing currently. Arterial Line Arterial Line Catheter: 20G Type: Radial Location: Right Procedure: prepped, draped in sterile fashion, good wave-form was obtained, patient tolerated procedure well, no immediate complications, post procedure area cleaned, post procedure dressing applied MICAH SEPULVEDA CRNA Oct 07, 2019 01:50
[2019-10-07] MEDS ORDERED: fentaNYL INJECTION 100 MCG/2 ML AMP IV ONE (02:00)
[2019-10-07] MEDS ORDERED: SODIUM BICARB 8.4% 50 MEQ/50 ML (ABBOTT) SYR IV ONE (02:00)
[2019-10-07] MEDS ORDERED: BUMETANIDE 1 MG/4 ML (BUMEX) VIAL IV ONE (02:45)
[2019-10-07] MEDS ORDERED: NS IV 500 ML 500 ML IV SCH (02:45)
[2019-10-07] MEDS ORDERED: NOREPINEPHRINE 4 MG/NS 250 ML DRIP IV SCH ×2 (02:45)
[2019-10-07 04:03] LABS: ABG BASE EXCESS 8.5 MMOL/L (-2.5-2.5); ABG OXYGEN SATURATION 98 % (94-100); ABG PCO2 66 MMHG (35-45); ABG PO2 105 MMHG (79-93); ABG TCO2 36.7 MMOL/L (21.0-31.0)
[2019-10-07 04:04] LABS: BASOPHILS % (AUTO) 0 % (0-10); EOSINOPHILS % (AUTO) 0 % (0-10); HEMATOCRIT 31 % (35-52); HEMOGLOBIN 9.7 G/DL (11.5-16.0); LYMPHOCYTES # (AUTO) 0.2 X 10^3 (1.0-4.0); LYMPHOCYTES % (AUTO) 2 % (12-44); MEAN CORPUSCULAR HEMOGLOBIN 31 PG (25-34); MEAN CORPUSCULAR HGB CONC 32 G/DL (32-36); MEAN CORPUSCULAR VOLUME 99 FL (80-99); MEAN PLATELET VOLUME 8.7 FL (7.4-10.4); MONOCYTES # (AUTO) 0.3 X 10^3 (0.0-1.0); MONOCYTES % (AUTO) 2 % (0-12); NEUTROPHILS # (AUTO) 13.2 X 10^3 (1.8-7.8); NEUTROPHILS % (AUTO) 96 % (42-75); PLATELET COUNT 362 10^3/uL (130-400); RED CELL DISTRIBUTION WIDTH 15.2 % (10.0-14.5); WHITE BLOOD COUNT 13.7 10^3/uL (4.3-11.0)
[2019-10-07 04:20] LABS: ABG PH 7.33 (7.37-7.43); ALLENS TEST POSITIVE; INSPIRED O2 100%; VENTILATOR YES
[2019-10-07 04:33] LABS: BUN/CREATININE RATIO 31; CALCIUM 8.8 MG/DL (8.5-10.1); CARBON DIOXIDE 26 MMOL/L (21-32); CHLORIDE 99 MMOL/L (98-107); CREATININE SERUM 0.84 MG/DL (0.60-1.30); GFR ESTIMATED > 60; GLUCOSE 185 MG/DL (70-105); MAGNESIUM 1.8 MG/DL (1.6-2.4); PHOSPHORUS 4.8 MG/DL (2.3-4.7); POTASSIUM 3.7 MMOL/L (3.6-5.0); SODIUM 142 MMOL/L (135-145)
[2019-10-07] MEDS: POTASSIUM CL 10MEQ/50ML IVPB 50 ML IV SCH (05:22)
[2019-10-07] MEDS: MAGNESIUM 1 GM/100 ML IVPB 100 ML IV SCH (05:22)
[2019-10-07] MEDS: KCL 20 MEQ TAB (K-DUR) PO SCH (05:23)
[2019-10-07] MEDS: guaiFENesin SYRUP 100 MG/5 ML 10 ML (ROBITUSSIN SF) PO SCH ×3 (06:01→22:22)
[2019-10-07] MEDS: ENOXAPARIN 100 MG/1 ML (LOVENOX) SYR SC SCH ×2 (06:01→18:25)
--- NOTE | 2019-10-07 06:31 | NUR ---
TIMELINE: 1999--Pt lethargic, o2 sats upper 80's on 100% bipap 2004--ABG obtained, no critical results, E-ICU notified 2234--Pt increasingly lethargic, o2 sats declining throughout shift (mid to low 80's at this point), E-ICU notified, ABG obtained 2342--Orders received for bipap changes from E-ICU 2342--This RN attempted to contact Florinda (daughter from contact list), no answer, left message to return call 14--Pt opens eyes to deep pain, no other response at this time, multiple attempts throughout this RN's shift to reposition pt, awaken pt, etc with no success, pt's o2 sat 77% at this time 19--This RN contacted pt's mother, informed mother of situation, mother consented to have pt reintubated, if necessary, Fermín Steve, RN, as second witness 19--E-ICU contacted, updated on pt condition, orders to intubate pt 24--RT notified, at bedside, unit supervisor notified, contacted anesthesia for intubation 003--D/t decreased o2 sats, RT bagging pt, oral airway inserted r/t difficulty in bagging pt, airway suctioned, large amount of secretions noted 010--Anesthesia at bedside, 2 Versed + 150 propofol given per anesthesia 010--80 Succs given per anesthesia 010--Successful intubation by anesthesia, 8.0 ET tube, 23 @ lip, color change achieved, bilateral breath sounds auscultated, equal chest rise and fall, tube secured, E-ICU per camera, vent settings ordered 80% Fio2, PEEP 5, TV 430, RR 18 0108--Pt sats continuing to decline, upper 70's, low 80's, Fio2 increased to 100% 010--OG placed, CXR called for placement check on vent and OG 011--Pt continuing to decline in O2 sats, E-ICU contacted again 111--E-ICU dr per camera 011--Right radial artline placed per anesthesia 0114--PEEP increased to 12 0115--ROCC administered by anesthesia 0116--Propofol and Precedex initiated, see IV spreadsheet 0122--PEEP increased to 16 0126--2 amps bicarb given 0127--Pt's sats in low 40's, 150 mcg epi given per anesthesia r/t bronchospasms 0131--2 mg IV Bumex given 0200--Pt improving, see interventions 0350--Dr Escobar at bedside, o2 sats declining into upper 80's, PEEP to 18 0403--Dr Escobar changed vent settings, PEEP down to 16 0450--This RN contacted pt's mother, no answer, left message 0500--Pt's mother returned phone call, this RN updated mother on pt condition and need to intubate pt
--- NOTE | 2019-10-07 07:11 | Pulmonary Progress Note ---
Subjective Time Seen by a Provider: 08:01 Subjective/Events-last exam sedated on vent Sepsis Event Evaluation Height, Weight, BMI Height: 5'5.00" Weight: 218lbs. 0.0oz. 98.604044qp; 34.07 BMI Method:Stated Exam Exam Vital Signs Date Time Temp Pulse Resp B/P (MAP) Pulse Ox O2 Delivery O2 Flow Rate FiO2 10/07/19 06:00 106 27 115/61 (79) 100 Mechanical Ventilator 100.00 10/07/19 05:00 111 28 115/60 (78) 99 Mechanical Ventilator 100.00 10/07/19 04:00 Mechanical Ventilator 100 10/07/19 04:00 117 28 128/64 (85) 99 Mechanical Ventilator 100.00 10/07/19 03:50 36.0 10/07/19 03:00 117 18 123/61 (81) 87 Mechanical Ventilator 100.00 10/07/19 02:45 116 18 95 95 10/07/19 02:00 120 17 111/58 (75) 96 Mechanical Ventilator 100.00 10/07/19 01:20 125 18 90 100 10/07/19 01:16 Mechanical Ventilator 10/07/19 01:13 10/07/19 01:08 Mechanical Ventilator 100.00 10/07/19 01:04 Mechanical Ventilator 80.00 10/07/19 01:00 121 17 118/61 (80) 95 NIV Bilevel 100.00 10/07/19 01:00 NIV Bilevel 100.00 10/07/19 01:00 127 10/07/19 00:00 NIV Bilevel 100 10/07/19 00:00 104 29 173/96 (121) 86 NIV Bilevel 100.00 10/06/19 23:30 36.6 NIV Bilevel 100.00 10/06/19 23:00 128 25 172/97 (122) 88 NIV Bilevel 100.00 10/06/19 22:57 129 34 88 100.00 10/06/19 22:00 114 24 166/99 (121) 94 NIV Bilevel 100.00 10/06/19 21:00 118 22 172/97 (122) 91 NIV Bilevel 100.00 10/06/19 20:00 NIV Bilevel 100 10/06/19 20:00 36.8 10/06/19 20:00 115 24 163/96 (118) 92 NIV Bilevel 100.00 10/06/19 19:00 113 10/06/19 19:00 NIV Bilevel 100.00 10/06/19 19:00 113 17 166/96 (119) 90 NIV Bilevel 100.00 10/06/19 18:45 108 21 89 100.00 10/06/19 18:00 114 19 125/75 (92) 93 NIV Bilevel 80.00 10/06/19 17:00 121 23 151/88 (109) 93 NIV Bilevel 80.00 10/06/19 16:48 95 NIV Bilevel 50.00 60 10/06/19 16:00 35.6 10/06/19 16:00 109 19 126/67 (86) 94 NIV Bilevel 80.00 10/06/19 15:00 111 18 121/71 (88) 92 NIV Bilevel 80.00 10/06/19 14:20 112 19 91 100.00 10/06/19 14:00 115 23 163/97 (119) 91 NIV Bilevel 80.00 10/06/19 13:00 100 18 146/88 (107) 94 NIV Bilevel 80.00 10/06/19 12:29 117 10/06/19 12:27 95 NIV Bilevel 50.00 60 10/06/19 12:00 35.9 10/06/19 12:00 118 23 160/89 (112) 90 NIV Bilevel 80.00 10/06/19 11:00 115 18 168/95 (119) 94 NIV Bilevel 80.00 10/06/19 10:48 112 95 100.00 113 10/06/19 10:00 115 19 179/104 (129) 94 NIV Bilevel 80.00 10/06/19 09:48 NIV Bilevel 80.00 10/06/19 09:06 90 Vapotherm 40.00 100 10/06/19 09:00 104 24 175/100 (125) 92 Vapotherm 40.00 100.00 10/06/19 08:15 95 NIV Bilevel 50.00 60 10/06/19 08:00 98 21 172/103 (126) 95 NIV Bilevel 80.00 I & O 10/07/19 07:00 Intake Total 1234 ml Output Total 2675 ml Balance -1441 ml Height & Weight Height: 5'5.00" Weight: 218lbs. 0.0oz. 98.592017yu; 34.07 BMI Method:Stated General Appearance: No Apparent Distress, Chronically ill HEENT: Other Neck: Supple, Other (Bleeding at site of right IJ, very slow ooze) Respiratory: Lungs Clear, No Respiratory Distress Cardiovascular: No Murmur, Tachycardia Capillary Refill: Less Than 3 Seconds Gastrointestinal: soft, no organomegaly, no pulsatile mass Extremity: Pedal Edema (R>L ) Neurologic/Psychiatric: Alert, Oriented x3 Skin: Warm/Dry Lymphatic: No Adenopathy Results Lab Laboratory Tests 10/06/19 03:05 10/06/19 14:30 10/07/19 03:30 Assessment/Plan Assessment/Plan Acute respiratory failure with hypoxia -pt was intubated early this AM 09/06 -Pt was previously extubated 10/04 -Continue Bumex Pseudomonus PNA -Continue Zosyn -Repeat cultures pending COPDAE -Solumedrol Afib/flutter RLE DVT -Lovenox Alcohol abuse Morbid obesity JACLYN SAVAGE DO Oct 07, 2019 07:11
[2019-10-07] MEDS: CALCIUM ACETATE 667 MG CAP (PHOSLO) PO SCH ×3 (07:54→16:47)
--- NOTE | 2019-10-07 08:04 | Diagnostic Imaging Report ---
INDICATION: Dyspnea. COMPARISON: 10/06/2019. TECHNIQUE: 2 radiographs of the chest dated 10/07/2019. FINDINGS: Interval placement of an endotracheal tube with the distal tip overlying the tracheal air column above the level of the jhon. Interval placement of an enteric catheter which extends into the stomach. Stable right IJ central venous catheter. The cardiac silhouette is stable. Moderate sized right basilar pleural-parenchymal opacity is present, significantly increased since the prior examination. Slightly increasing small left basilar pleural-parenchymal opacity is also noted. No pneumothorax. Osseous structures are stable. IMPRESSION: Interval placement of endotracheal tube and enteric catheters above. Increasing moderate right and small left bibasilar pleural-parenchymal opacities, related to a combination of pleural fluid with adjacent atelectasis and/or infiltrate. Dictated by: Dictated on workstation # [id number]
--- NOTE | 2019-10-07 08:18 | Physical Therapy Progress Note ---
Therapy Progress Note Patient reintubated and sedated on this date due to declined in medical status. PT on Hold on this date due to previous statement. Will continue to monitor patient status and resume when medically stable and able to actively participate with skilled therapy. MERVIN PETERSON PT Oct 07, 2019 08:18
[2019-10-07] MEDS: BUMETANIDE 1 MG/4 ML (BUMEX) VIAL IV SCH ×2 (09:22→21:31)
[2019-10-07] MEDS: FAMOTIDINE 20MG/2ML IV (PEPCID) IVP SCH ×2 (09:23→21:31)
[2019-10-07] MEDS: LEVETIRACETAM INJECTION 500 MG in NS (IVPB) 100 ML IV SCH ×2 (09:23→21:31)
[2019-10-07] MEDS: AMIODARONE 200 MG (CORDARONE) TAB NG SCH ×2 (09:24→21:31)
[2019-10-07] MEDS: CHLORHEXIDINE 0.12% SOLN 15 ML (PERIDEX) UDC PO SCH ×2 (09:24→21:32)
--- NOTE | 2019-10-07 09:56 | Occ Therapy Progress Note ---
Therapy Progress Note Pt reintubated and sedated earlier this date due to decline in medical status. OT will continue to monitor pt status and resume when medically stable and when pt is able to actively participate in skilled therapy. OT on hold due to being intubated and sedated, and due to pt being unable to actively participate in skilled therapy at this time. REECE ROSA OT Oct 07, 2019 09:56
[2019-10-07] MEDS ORDERED: MIDAZOLAM 5 MG/5 ML (VERSED) VIAL INJ ONE (10:18)
[2019-10-07] MEDS ORDERED: SUCCINYLCHOLINE INJ 100 MG/5 ML SYR INJ ONE (10:18)
[2019-10-07] MEDS ORDERED: fentaNYL INJECTION 100 MCG/2 ML AMP INJ ONE (10:18)
[2019-10-07] MEDS ORDERED: ROCURONIUM 10 MG/ML 5 ML SYRINGE IV ONE (10:18)
[2019-10-07] MEDS ORDERED: EPINEPHrine 0.1 MG/ML 10 ML (HOSPIRA) SYR INJ ONE (10:38)
[2019-10-07] MEDS ORDERED: SODIUM BICARB 8.4% 50 MEQ/50 ML VIAL IV ONE (10:38)
--- NOTE | 2019-10-07 12:58 | Cardiology Progress Note ---
Cardiology SOAP Progress Note Subjective: Intubated/ventilated. Objective: I&O/Vital Signs 10/08/19 10/08/19 10/08/19 10/08/19 05:00 05:32 06:00 07:00 Pulse 88 87 83 Resp 16 14 B/P (MAP) 132/54 (80) 134/55 (81) Pulse Ox 97 97 O2 Delivery Mechanical Ventilator Mechanical Ventilator Mechanical Ventilator O2 Flow Rate 40.00 40.00 10/08/19 10/08/19 10/08/19 10/08/19 07:00 08:00 08:00 08:00 Temp 36.2 Pulse 83 78 Resp 14 19 B/P (MAP) 117/49 (71) 136/58 (84) Pulse Ox 94 95 O2 Delivery Mechanical Ventilator Mechanical Ventilator Mechanical Ventilator O2 Flow Rate 40.00 40.00 FiO2 40 10/08/19 10/08/19 10/08/19 10/08/19 09:00 09:32 09:44 10:00 Pulse 82 85 85 Resp 25 16 26 B/P (MAP) 120/49 (72) 130/52 134/53 (80) Pulse Ox 94 94 94 O2 Delivery Mechanical Ventilator Mechanical Ventilator O2 Flow Rate 40.00 40.00 FiO2 40 10/08/19 10/08/19 10/08/19 10/08/19 11:00 12:00 12:00 12:00 Temp 36.4 Pulse 81 80 Resp 13 13 B/P (MAP) 140/58 (85) 129/51 (77) Pulse Ox 96 96 O2 Delivery Mechanical Ventilator Mechanical Ventilator Mechanical Ventilator O2 Flow Rate 40.00 40.00 FiO2 40 10/08/19 10/08/19 10/08/19 10/08/19 13:00 13:00 13:43 14:00 Pulse 90 89 85 Resp 19 13 B/P (MAP) 125/46 (72) 132/51 128/49 (75) Pulse Ox 94 96 O2 Delivery Mechanical Ventilator Mechanical Ventilator O2 Flow Rate 40.00 40.00 10/08/19 10/08/19 10/08/19 10/08/19 15:00 15:25 16:00 16:00 Pulse 85 82 86 Resp 16 16 13 B/P (MAP) 140/54 (82) 135/52 (79) Pulse Ox 97 97 97 O2 Delivery Mechanical Ventilator Mechanical Ventilator Mechanical Ventilator O2 Flow Rate 40.00 40.00 FiO2 40 40 10/08/19 00:00 Intake Total 1055 ml Output Total 925 ml Balance 130 ml Weight (Pounds): 218 Weight (Ounces): 0.0 Weight (Calculated Kilograms): 98.719507 Constitutional: well-developed, well-nourished, other ( intubated/ventilated.) Respiratory: No accessory muscle use, No respiratory distress; chest expansion is symmetric, lungs clear to auscultation, other (intubated/ventilated.) Cardiovascular: regular rate-rhythm; No JVD; S1 and S2 Gastrointestional: audible bowel sounds Extremities: other (mod bilat LE swelling) Neurologic/Psychiatric: other (intermitted/ventilated.) Skin: warm/dry Results/Procedures: Labs Laboratory Tests 10/07/19 18:23: Glucometer 80 10/07/19 21:41: Glucometer 110 10/07/19 23:28: Stool Occult Blood Immunoassay NEGATIVE 10/08/19 03:25: White Blood Count 6.7, Red Blood Count 2.41L, Hemoglobin 7.5#L, Hematocrit 24L, Mean Corpuscular Volume 99, Mean Corpuscular Hemoglobin 31, Mean Corpuscular Hemoglobin Concent 31L, Red Cell Distribution Width 15.2H, Platelet Count 205, M vinod Platelet Volume 8.8, Neutrophils (%) (Auto) 95H, Lymphocytes (%) (Auto) 4L, Monocytes (%) (Auto) 2, Eosinophils (%) (Auto) 0, Basophils (%) (Auto) 0, Neutrophils # (Auto) 6.4, Lymphocytes # (Auto) 0.3L, Monocytes # (Auto) 0.1, Eosinophils # (Auto) 0.0, Basophils # (Auto) 0.0, Blood Gas Puncture Site RIGHT RADIAL ARTLINE, Blood Gas Patient Temperature 36.1, Arterial Blood pH 7.46H, Arterial Blood Partial Pressure CO2 49H, Arterial Blood Partial Pressure O2 114H , Arterial Blood HCO3 35H, Arterial Blood Total CO2 36.6H, Arterial Blood Oxygen Saturation 99, Arterial Blood Base Excess 10.5H, Jame Test POSITIVE, Blood Gas Ventilator Setting YES, Blood Gas Inspired Oxygen 40%, Sodium Level 144, Potassium Level 3.5L, Chloride Level 100, Carbon Dioxide Level 28, Anion Gap 16H , Blood Urea Nitrogen 24H, Creatinine 0.77, Estimat Glomerular Filtration Rate > 60, BUN/Creatinine Ratio 31, Glucose Level 138H, Calcium Level 8.7, Phosphorus Level 4.0, Magnesium Level 1.8 10/08/19 08:20: Blood Gas Puncture Site R RAD, Blood Gas Patient Temperature 36.2, Arterial Blood pH 7.46H, Arterial Blood Partial Pressure CO2 50H, Arterial Blood Partial Pressure O2 84, Arterial Blood HCO3 35H, Arterial Blood Total CO2 36.5H, Arterial Blood Oxygen Saturation 97, Arterial Blood Base Excess 10.4H, Jame Test ARTLINE, Blood Gas Ventilator Setting YES, Blood Gas Inspired Oxygen 40% 10/08/19 12:25: Glucometer 146H 10/08/19 12:45: White Blood Count 6.1, Red Blood Count 2.43L, Hemoglobin 7.6L, Hematocrit 24L, Mean Corpuscular Volume 100H, Mean Corpuscular Hemoglobin 31, Mean Corpuscular Hemoglobin Concent 31L, Red Cell Distribution Width 15.0H, Platelet Count 213, Mean Platelet Volume 9.0, Neutrophils (%) (Auto) 92H, Lymphocytes (%) (Auto) 6L, Monocytes (%) (Auto) 2, Eosinophils (%) (Auto) 0, Basophils (%) (Auto) 0, Neutrophils # (Auto) 5.6, Lymphocytes # (Auto) 0.4L, Monocytes # (Auto) 0.1, Eosinophils # (Auto) 0.0, Basophils # (Auto) 0.0 Microbiology 10/07/19 C. difficile GDH Antigen & Toxins - Final, Resulted 10/07/19 Stool Culture - Preliminary, Resulted 10/07/19 Gram Stain - Final, Resulted 10/07/19 Sputum Culture - Preliminary, Resulted Pseudomonas aeruginosa 09/26/19 Blood Culture - Final, Complete No growth A/P: Assessment/Dx: Acute resp failure, ARDS, likely due to COPD exacerbated by aspiration pneumonia, reintubated. Acute renal failure, likely ATN due to hypotension due to sepsis Hyperkalemia/hypermag likely secondary to renal failure PAF/flutter, currently sinus tachycardia. Elevated troponin - likely type 2 IA d/t hypoxia Card cath of 09/07/18: minimal CAD, LVEF 70-75%, elevated LVEDP Echo of 09/20/19: LVEF 50-55%, RVSP 35 mmHg H/o opiate addiction ETOH abuse Chronic tobacco use Fam h/o early CAD Hyperlipidemia Borderline DM II (fasting blood glucose on 09/07/18) Carotid u/s on 01/05/19: no significant dz Plan: Plan: * Prognosis reasonable. * ARDS, be intubated. Bronchoscopy today. * Monitor lab closely * IV hydralazine for blood pressure control. Thank you for your consultation. Please call me if you have any questions. Taz Velazco MD, FACP, FACC, FSCAI, FHRS, CCDS Interventional Cardiology Cardiac Electrophysiology Vascular Medicine and Endovascular Interventions Graciela VELAZCO MD Oct 07, 2019 12:58
[2019-10-07] MEDS ORDERED: NS 100 ML (IVPB) BAG IV ONE (13:00)
[2019-10-07] MEDS ORDERED: HOLD METFORMIN - RECEIVED CONTRAST 20 ML VIAL IV SCH (13:00)
[2019-10-07] MEDS ORDERED: IOHEXOL 350 MG/ML 100 ML (OMNIPAQUE 350) VIAL IV ONE (13:00)
[2019-10-07] MEDS: MEROPENEM 500 MG/SWFI 10 ML IV PUSH IV SCH ×6 (14:07→22:22)
--- NOTE | 2019-10-07 14:14 | Speech Therapy Progress Note ---
Therapy Progress Note Patient sedated and intubated due to a decline in health. Patient is unable to participate in dysphagia or speech evaluation at this time. ST will continue to monitor patient status for evaluation completion. BRIAN CORTES Oct 07, 2019 14:14
--- NOTE | 2019-10-07 14:14 | Diagnostic Imaging Report ---
PROCEDURE: CT angiography of the chest with contrast. TECHNIQUE: Multiple contiguous axial images were obtained through the chest after uneventful bolus administration of intravenous contrast. 3D reconstructed CTA MIP acquisitions were also performed. Auto Exposure Controls were utilized during the CT exam to meet ALARA standards for radiation dose reduction. INDICATION: Respiratory failure. COMPARISON: Comparison is made with prior CT chest from 09/20/2019. FINDINGS: Endotracheal tube has tip above the jhon. A nasogastric tube passes into the stomach. The pulmonary arterial system is without evidence of thromboembolism. No definite filling defect is seen within central, lobar, or segmental branches. The thoracic aorta is normal caliber. No dissection is seen. There is no pericardial fluid. There is a small right pleural effusion. There is also a small amount of left pleural fluid. Prominent lymph nodes in the prevascular and right paratracheal location appear stable. Increasing patchy airspace infiltrates in right upper lobe are noted since prior exam. These obscure the density noted near the major fissure on prior exam. There is continued significant consolidation with air bronchograms in the left lower lobe; however, the degree of consolidation has improved since prior CT. There is also significant consolidation with air bronchograms in the right lower lobe. This is similar to prior exam. There are some nodular densities in the left upper lobe which appear slightly more prominent than prior. Upper abdomen demonstrates perihepatic and perisplenic ascites. IMPRESSION: 1. No evidence of pulmonary embolism or thoracic aortic dissection. 2. Development of bilateral pleural effusions. 3. Continued extensive bilateral pulmonary infiltrates with significant consolidation in the right and left lower lobes. Degree of consolidation is slightly improved in the left lower lobe since prior. There are new airspace infiltrates in bilateral upper lobes with increasing nodularity in the left upper lobe since prior CT. Findings remain most likely on an infectious/inflammatory basis. Upper abdominal ascites. Dictated by: Dictated on workstation # [id number]
[2019-10-07] MEDS: DEXMEDETOMIDINE 1,000 MCG/NS 250 ML IV SCH ×2 (14:51)
[2019-10-07] MEDS: methylPREDNISolone 125 MG (Solu-MEDROL) VIAL IV SCH (18:25)
[2019-10-08] VITALS (28 sets, daily range): BP systolic 117–163; BP diastolic 46–95
[2019-10-08] MEDS: meTOprolol 5 MG/5 ML (LOPRESSOR) VIAL IV SCH ×4 (00:28→18:18)
[2019-10-08] MEDS: hydrALAZINE (APRESOLINE) 25 MG TAB PO SCH ×4 (00:28→13:21)
[2019-10-08] MEDS: hydrALAZINE (APESOLINE) 20 MG/ML VIAL IV SCH ×6 (00:29→19:52)
[2019-10-08] MEDS: inSUlin ASPART (NovoLOG) 1 UNIT/0.01 ML (CHARGE PER UNIT) SC SCH ×4 (00:29→18:19)
[2019-10-08] MEDS: DEXMEDETOMIDINE 1,000 MCG/NS 250 ML IV SCH ×6 (01:20→21:00)
[2019-10-08] MEDS: RT-ALBUTEROL/IPRATROPIUM 3 ML (DUONEB) VIAL INH SCH ×6 (02:32→23:52)
[2019-10-08] MEDS: aCETylcysteine 20% (MUCOMYST) 30ML SOLN VIAL INH SCH ×6 (02:33→23:53)
[2019-10-08] MEDS: MEROPENEM 500 MG/SWFI 10 ML IV PUSH IV SCH ×8 (03:16→21:14)
[2019-10-08 03:31] LABS: ABG BASE EXCESS 10.5 MMOL/L (-2.5-2.5); ABG OXYGEN SATURATION 99 % (94-100); ABG PCO2 49 MMHG (35-45); ABG PH 7.46 (7.37-7.43); ABG PO2 114 MMHG (79-93); ABG TCO2 36.6 MMOL/L (21.0-31.0); BASOPHILS % (AUTO) 0 % (0-10); EOSINOPHILS % (AUTO) 0 % (0-10); HEMATOCRIT 24 % (35-52); LYMPHOCYTES # (AUTO) 0.3 X 10^3 (1.0-4.0); LYMPHOCYTES % (AUTO) 4 % (12-44); MEAN CORPUSCULAR HEMOGLOBIN 31 PG (25-34); MEAN CORPUSCULAR HGB CONC 31 G/DL (32-36); MEAN CORPUSCULAR VOLUME 99 FL (80-99); MEAN PLATELET VOLUME 8.8 FL (7.4-10.4); MONOCYTES # (AUTO) 0.1 X 10^3 (0.0-1.0); MONOCYTES % (AUTO) 2 % (0-12); NEUTROPHILS # (AUTO) 6.4 X 10^3 (1.8-7.8); NEUTROPHILS % (AUTO) 95 % (42-75); PLATELET COUNT 205 10^3/uL (130-400); RED CELL DISTRIBUTION WIDTH 15.2 % (10.0-14.5); WHITE BLOOD COUNT 6.7 10^3/uL (4.3-11.0)
[2019-10-08 03:35] LABS: ALLENS TEST POSITIVE; INSPIRED O2 40%; PATIENT TEMP 36.1; VENTILATOR YES
[2019-10-08 03:40] LABS: HEMOGLOBIN 7.5 G/DL (11.5-16.0)
[2019-10-08 03:49] LABS: BUN/CREATININE RATIO 31; CALCIUM 8.7 MG/DL (8.5-10.1); CARBON DIOXIDE 28 MMOL/L (21-32); CHLORIDE 100 MMOL/L (98-107); CREATININE SERUM 0.77 MG/DL (0.60-1.30); GFR ESTIMATED > 60; GLUCOSE 138 MG/DL (70-105); MAGNESIUM 1.8 MG/DL (1.6-2.4); POTASSIUM 3.5 MMOL/L (3.6-5.0); SODIUM 144 MMOL/L (135-145)
--- NOTE | 2019-10-08 04:27 | Pulmonary Progress Note ---
Subjective Time Seen by a Provider: 04:42 Subjective/Events-last exam Pt is sedated on vent. Sepsis Event Evaluation Height, Weight, BMI Height: 5'5.00" Weight: 218lbs. 0.0oz. 98.455365ki; 34.07 BMI Method:Stated Exam Exam Vital Signs Date Time Temp Pulse Resp B/P (MAP) Pulse Ox O2 Delivery O2 Flow Rate FiO2 10/08/19 04:00 Mechanical Ventilator 40 10/08/19 03:15 36.1 10/08/19 03:00 92 17 135/53 (80) 96 Mechanical Ventilator 40.00 10/08/19 02:33 92 19 96 40 10/08/19 02:00 92 17 136/53 (80) 96 Mechanical Ventilator 40.00 10/08/19 01:20 Mechanical Ventilator 10/08/19 01:00 93 10/08/19 01:00 93 23 135/52 (79) 96 Mechanical Ventilator 40.00 10/08/19 00:18 36.2 10/08/19 00:00 112 18 144/56 (85) 93 Mechanical Ventilator 40.00 10/08/19 00:00 Mechanical Ventilator 40 10/07/19 23:00 101 18 134/44 (74) 94 Mechanical Ventilator 40.00 10/07/19 22:07 95 19 95 40 10/07/19 22:00 95 19 136/48 (77) 95 Mechanical Ventilator 40.00 10/07/19 21:31 Mechanical Ventilator 10/07/19 21:00 88 20 139/46 (77) 91 Mechanical Ventilator 40.00 10/07/19 20:00 Mechanical Ventilator 40 10/07/19 20:00 85 17 134/45 (74) 93 Mechanical Ventilator 40.00 10/07/19 19:00 79 18 136/46 (76) 92 Mechanical Ventilator 40.00 10/07/19 19:00 36.8 Mechanical Ventilator 40.00 10/07/19 19:00 79 10/07/19 18:22 85 19 100 40 10/07/19 18:00 89 20 141/49 (79) 100 Mechanical Ventilator 100.00 10/07/19 17:05 111/43 10/07/19 17:00 100 21 112/42 (65) 100 Mechanical Ventilator 100.00 10/07/19 16:00 Mechanical Ventilator 60 10/07/19 16:00 86 18 120/42 (68) 100 Mechanical Ventilator 100.00 10/07/19 15:00 78 17 123/45 (71) 100 Mechanical Ventilator 100.00 10/07/19 14:32 76 18 100 60 10/07/19 14:00 93 17 143/54 (83) 100 Mechanical Ventilator 100.00 10/07/19 13:00 96 21 99/51 (67) 99 Mechanical Ventilator 100.00 10/07/19 12:53 136/59 10/07/19 12:34 94 10/07/19 12:04 36.4 10/07/19 12:00 Mechanical Ventilator 60 10/07/19 12:00 92 20 119/53 (75) 99 Mechanical Ventilator 100.00 10/07/19 11:00 96 25 113/56 (75) 100 Mechanical Ventilator 100.00 10/07/19 10:25 96 19 100 100 10/07/19 10:00 98 22 115/57 (76) 100 Mechanical Ventilator 100.00 10/07/19 09:00 96 21 110/55 (73) 100 Mechanical Ventilator 100.00 10/07/19 08:00 Mechanical Ventilator 100 10/07/19 08:00 94 18 123/62 (82) 100 Mechanical Ventilator 100.00 10/07/19 07:47 96 20 100 100 10/07/19 07:15 129/60 10/07/19 07:00 89 21 118/58 (78) 100 Mechanical Ventilator 100.00 10/07/19 07:00 82 10/07/19 06:00 106 27 115/61 (79) 100 Mechanical Ventilator 100.00 10/07/19 05:00 111 28 115/60 (78) 99 Mechanical Ventilator 100.00 I & O 10/08/19 07:00 Intake Total 1255 ml Output Total 2600 ml Balance -1345 ml Height & Weight Height: 5'5.00" Weight: 218lbs. 0.0oz. 98.588185zj; 34.07 BMI Method:Stated General Appearance: No Apparent Distress, Chronically ill, Other HEENT: Other Neck: Supple, Other (Bleeding at site of right IJ, very slow ooze) Respiratory: Lungs Clear, No Respiratory Distress Cardiovascular: No Murmur, Tachycardia Capillary Refill: Less Than 3 Seconds Gastrointestinal: soft, no organomegaly, no pulsatile mass Extremity: Pedal Edema (R>L ) Neurologic/Psychiatric: Alert, Oriented x3 Skin: Warm/Dry Lymphatic: No Adenopathy Results Lab Laboratory Tests 10/06/19 14:30 10/07/19 03:30 10/08/19 03:25 Assessment/Plan Assessment/Plan Acute respiratory failure with hypoxia - reintubated probably secondary to mucous plugging vs aspiration. -pt was intubated early this AM 09/06 -Pt was previously extubated 10/04 -Will do bronchoscopy today. and start weaning vent tomorrow -Increase Solumedrol to 40 Q 6 -Continue Bumex -CT of chest reviewed Seizure prior to reintubation -Raeann. Pseudomonus PNA -Continue Merrem changed from Zosyn 10/07 -Repeat cultures pending COPDAE -Solumedrol -SVNS q 4 Afib/flutter RLE DVT -Lovenox Alcohol abuse Morbid obesity JACLYN SAVAGE DO Oct 08, 2019 04:27
[2019-10-08] MEDS ORDERED: MAGNESIUM 1 GM/100 ML IVPB 100 ML IV ONE (04:30)
[2019-10-08] MEDS: MAGNESIUM 1 GM/100 ML IVPB 100 ML IV SCH (05:29)
[2019-10-08] MEDS: POTASSIUM CL 10MEQ/50ML IVPB 50 ML IV SCH ×5 (05:29→08:09)
[2019-10-08] MEDS: KCL 20 MEQ TAB (K-DUR) PO SCH (05:30)
[2019-10-08] MEDS: methylPREDNISolone 125 MG (Solu-MEDROL) VIAL IV SCH ×2 (05:40→12:26)
[2019-10-08] MEDS ORDERED: MIDAZOLAM 5 MG/5 ML (VERSED) VIAL ONE (06:09)
[2019-10-08] MEDS: fentaNYL INJECTION 100 MCG/2 ML AMP IVP PRN ×2 (06:19→06:24)
--- NOTE | 2019-10-08 06:20 | NUR ---
Dr Escobar, RT, and this RN at bedside for bronchoscopy. Time out performed, pt tolerated well.
[2019-10-08] MEDS: ENOXAPARIN 100 MG/1 ML (LOVENOX) SYR SC SCH ×2 (06:27→18:18)
--- NOTE | 2019-10-08 06:30 | Pulmonary Procedures ---
Pulmonary Procedures Date of Procedure Date of Service: Oct 08, 2019 Bronch Bronchoscopy with bilateral bronchial washes. Preop DX bilateral PNA with mucous plugging Postop DX: same Complications: none After informed consent obtained and formal time out pt was sedated using Fentanyl and Versed. Bronchoscope was advanced through the nare and vocal cords. An anatomical tour was undertaken down to the segmental bronchi bilaterally. No endobronchial lesions noted. Bronchoscopy with bilateral bronchial washes were obtained. Pt did have bilateral mucous plugs that were levaged out. Pictures taken. Pt tolerated procedure well. No complications noted. Stat CXR is pending. JACLYN SAVAGE DO Oct 08, 2019 06:30
[2019-10-08] MEDS: guaiFENesin SYRUP 100 MG/5 ML 10 ML (ROBITUSSIN SF) PO SCH ×3 (06:38→21:13)
[2019-10-08] MEDS: KCL 20 MEQ POWDER FOR ORAL SOLUTION PO SCH ×2 (08:00→21:13)
[2019-10-08] MEDS: CALCIUM ACETATE 667 MG CAP (PHOSLO) PO SCH ×3 (08:10→15:54)
[2019-10-08 08:25] LABS: ABG BASE EXCESS 10.4 MMOL/L (-2.5-2.5); ABG OXYGEN SATURATION 97 % (94-100); ABG PCO2 50 MMHG (35-45); ABG PH 7.46 (7.37-7.43); ABG PO2 84 MMHG (79-93); ABG TCO2 36.5 MMOL/L (21.0-31.0)
[2019-10-08 08:26] LABS: ALLENS TEST ARTLINE; INSPIRED O2 40%; PATIENT TEMP 36.2; VENTILATOR YES
[2019-10-08] MEDS: AMIODARONE 200 MG (CORDARONE) TAB NG SCH ×2 (08:26→21:12)
[2019-10-08] MEDS: BUMETANIDE 1 MG/4 ML (BUMEX) VIAL IV SCH ×2 (08:26→21:13)
[2019-10-08] MEDS: CHLORHEXIDINE 0.12% SOLN 15 ML (PERIDEX) UDC PO SCH ×2 (08:26→21:14)
[2019-10-08] MEDS: FAMOTIDINE 20MG/2ML IV (PEPCID) IVP SCH ×2 (08:26→21:25)
[2019-10-08] MEDS: LEVETIRACETAM INJECTION 500 MG in NS (IVPB) 100 ML IV SCH ×2 (08:53→21:12)
--- NOTE | 2019-10-08 08:54 | Progress Note - Hospitalist ---
Subjective HPI/CC On Admission Date Seen by Provider: Oct 08, 2019 Time Seen by Provider: 08:51 Subjective/Events-last exam LATE ENTRY NOTE FOR 10/07/2019 Pt reintubated overnight. Discussed with Dr Escobar. plan for bronch tomorrow. No family at bedside. Objective Exam Vital Signs Vital Signs Date Time Temp Pulse Resp B/P (MAP) Pulse Ox O2 Delivery O2 Flow Rate FiO2 10/08/19 08:00 36.2 10/08/19 07:00 83 10/08/19 06:00 14 134/55 (81) 97 Mechanical Ventilator 40.00 10/08/19 04:00 40 Capillary Refill : Less Than 3 Seconds General Appearance: Chronically ill, Obese, Other (on vent) Respiratory: No Accessory Muscle Use, Decreased Breath Sounds, Other (on vent) Cardiovascular: Regular Rate, Rhythm, No Murmur Gastrointestinal: Normal Bowel Sounds, Non Tender, Soft Extremity: Pedal Edema, Swelling (pitting to knees bilaterally) Neurologic/Psychiatric: Other (sedated, appears comfortable) Skin: Pallor Results/Procedures Lab Laboratory Tests 10/08/19 03:25 Patient resulted labs reviewed. Imaging: Reviewed Imaging Report Assessment/Plan Assessment and Plan Assess & Plan/Chief Complaint ARDS Acute respiratory failure with hypoxia Endotracheally intubated COPD with acute exacerbation - Reintubated 10/07 due to lethargy and hypoxia - Pulm consulted, appreciate recs, plan for bronch tomorrow Continue Bumex Continue Zosyn per sensitivities for pseudomonas - Repeat culture to make sure they have cleared Continue steroids AFIB/Flutter with RVR HTN Continue Lovenox, pharmacy dosing for renal function - Metoprolol, Vasotec Cardiology consulted, appreciate recs Seizure like activity - Continue Keppra - ?withdrawal from benzos - mag normal RLE DVT Lovenox Steroid-induced hyperglycemia Continue Levemir SSI Alcohol abuse Morbid obesity Critical Care Critically Ill Patient Diagnosis/Problems Diagnosis/Problems (1) ARDS (adult respiratory distress syndrome) Status: Acute (2) Alcohol use Status: Acute (3) Atrial fibrillation with rapid ventricular response Status: Acute (4) Bilateral pneumonia Status: Acute Qualifiers: Pneumonia type: due to unspecified organism Lung location: lower lobe of lung Qualified Codes: J18.1 - Lobar pneumonia, unspecified organism (5) Acute respiratory failure Status: Acute Qualifiers: Respiratory failure complication: hypoxia Qualified Codes: J96.01 - Acute respiratory failure with hypoxia Clinical Quality Measures DVT/VTE Risk/Contraindication: Risk Factor Score Per Nursin RFS Level Per Nursing on Admit: 4+=Very High BROOKLYN DUNLAP MD Oct 08, 2019 08:54
--- NOTE | 2019-10-08 09:00 | Progress Note - Hospitalist ---
Subjective HPI/CC On Admission Date Seen by Provider: Oct 08, 2019 Time Seen by Provider: 08:57 Subjective/Events-last exam Pt remains intubated. Underwent bronch this AM. Family at bedside. All questions answered. Objective Exam Vital Signs Vital Signs Date Time Temp Pulse Resp B/P (MAP) Pulse Ox O2 Delivery O2 Flow Rate FiO2 10/08/19 08:00 36.2 10/08/19 07:00 83 10/08/19 06:00 14 134/55 (81) 97 Mechanical Ventilator 40.00 10/08/19 04:00 40 Capillary Refill : Less Than 3 Seconds General Appearance: Chronically ill, Obese, Other (on vent) Respiratory: No Accessory Muscle Use, Decreased Breath Sounds, Other (on vent) Cardiovascular: Regular Rate, Rhythm, No Murmur Gastrointestinal: Normal Bowel Sounds, Soft Genital/Rectal: Other (zavala) Neurologic/Psychiatric: Other (sedated, appears comfortable) Skin: Pallor Results/Procedures Lab Laboratory Tests 10/08/19 03:25 Patient resulted labs reviewed. Imaging: Reviewed Imaging Report Assessment/Plan Assessment and Plan Assess & Plan/Chief Complaint ARDS Acute respiratory failure with hypoxia Endotracheally intubated COPD with acute exacerbation - Reintubated 10/07 due to lethargy and hypoxia - Pulm consulted, appreciate recs - s/p bronch 10/08 that showed mucus plugging- sent for cultures Continue Bumex Continue Zosyn per sensitivities for pseudomonas- awaiting repeat sputum culture Continue steroids Indeterminant C Diff - Started on oral vanc - Await confirmatory testing AFIB/Flutter with RVR HTN Continue Lovenox, pharmacy dosing for renal function - Metoprolol, Vasotec Cardiology consulted, appreciate recs Seizure like activity - Continue Keppra - ?withdrawal from benzos - mag normal RLE DVT Lovenox Steroid-induced hyperglycemia Continue Levemir SSI Alcohol abuse Morbid obesity Critical Care Critically Ill Patient Diagnosis/Problems Diagnosis/Problems (1) ARDS (adult respiratory distress syndrome) Status: Acute (2) Alcohol use Status: Acute (3) Atrial fibrillation with rapid ventricular response Status: Acute (4) Bilateral pneumonia Status: Acute Qualifiers: Pneumonia type: due to unspecified organism Lung location: lower lobe of lung Qualified Codes: J18.1 - Lobar pneumonia, unspecified organism (5) Acute respiratory failure Status: Acute Qualifiers: Respiratory failure complication: hypoxia Qualified Codes: J96.01 - Acute respiratory failure with hypoxia Clinical Quality Measures DVT/VTE Risk/Contraindication: Risk Factor Score Per Nursin RFS Level Per Nursing on Admit: 4+=Very High BROOKLYN DUNLAP MD Oct 08, 2019 09:00
[2019-10-08] MEDS: VANCOMYCIN 50 MG/ML ORAL SOLN 150 ML PO SCH ×3 (10:31→21:10)
--- NOTE | 2019-10-08 11:12 | Diagnostic Imaging Report ---
INDICATION: Dyspnea COMPARISON: 10/07/2019 TECHNIQUE: Single radiograph of the chest dated 10/08/2019. FINDINGS: Endotracheal tube, enteric catheter, and right IJ central venous catheter are again identified and stable. The cardiac silhouette is stable. Small right basilar pleural-parenchymal opacity is present, significantly improved since the prior examination. Small left basilar pleural-parenchymal opacity is present, relatively stable from the prior examination. Upper lungs appear clear. No pneumothorax. No acute osseous abnormality. IMPRESSION: Improved though persistent small right basilar pleural-parenchymal opacity, felt related to a combination of pleural fluid with adjacent atelectasis and/or infiltrate. Persistent small left basilar pleural-parenchymal opacity. Unchanged lines and tubes. Dictated by: Dictated on workstation # [id number]
[2019-10-08 12:57] LABS: BASOPHILS % (AUTO) 0 % (0-10); EOSINOPHILS % (AUTO) 0 % (0-10); HEMATOCRIT 24 % (35-52); HEMOGLOBIN 7.6 G/DL (11.5-16.0); LYMPHOCYTES # (AUTO) 0.4 X 10^3 (1.0-4.0); LYMPHOCYTES % (AUTO) 6 % (12-44); MEAN CORPUSCULAR HEMOGLOBIN 31 PG (25-34); MEAN CORPUSCULAR HGB CONC 31 G/DL (32-36); MEAN CORPUSCULAR VOLUME 100 FL (80-99); MONOCYTES # (AUTO) 0.1 X 10^3 (0.0-1.0); MONOCYTES % (AUTO) 2 % (0-12); NEUTROPHILS # (AUTO) 5.6 X 10^3 (1.8-7.8); NEUTROPHILS % (AUTO) 92 % (42-75); PLATELET COUNT 213 10^3/uL (130-400); WHITE BLOOD COUNT 6.1 10^3/uL (4.3-11.0)
--- NOTE | 2019-10-08 13:57 | Physical Therapy Daily Note ---
PT Daily Note-Current Subjective spoke to family. Pt in and out of consciousness. Family asked for LE ROM exercises. Mental Status Patient Orientation: Unresponsive Transfers SCALE: Activities may be completed with or without assistive devices. 0-Gdbbalrcvp-frrhjun completes the activity by him/herself with no assistance from a helper. 5-Set-up or Clean-up Assistance-helper sets up or cleans up; patient completes activity. [place] assists only prior to or following the activity. 4-Supervision or Touching Assistance-helper provides verbal cues and/or touching/steadying and/or contact guard assistance as patient completes activity. Assistance may be provided throughout the activity or intermittently. 3-Partial/Moderate Assistance-helper does LESS THAN HALF the effort. [place] lifts, holds or supports trunk or limbs, but provides less than half the effort. 2-Substantial/Maximal Assistance-helper does MORE THAN HALF the effort. [place] lifts or holds trunk or limbs and provides more than half the effort. 5-Loaizljla-tashfo does ALL the effort. Patient does none of the effort to complete the activity. Or, the assistance of 2 or more helpers is required for the patient to complete the activity. If activity was not attempted, code reason: 7-Patient Refused. 9-Not Applicable-not attempted and the patient did not perform the activity before the current illness, exacerbation or injury. 10-Not Attempted due to Environmental Limitations-(lack of equipment, weather restraints, etc.). 88-Not Attempted due to Medical Conditions or Safety Concerns. Weight Bearing Right Lower Extremity: Right Weight Bearing/Tolerated Left Lower Extremity: Left Weight Bearing/Tolerated Exercises Performed (B) LE PROM for hips, knees, and ankles x 10-15 reps. Assessment Pt has LE edema. There is tension at end range of all joints. Pt will benefit from PT as she begins to awake from sedation. PT Group Home Goals Group Home Goals PT Group Home Goals Time Frame: Oct 12, 2019 Roll Left & Right (QC): 2 Sit to Lying (QC): 2 Lying-Sitting on Side/Bed(QC): 2 PT Plan Problem List Problem List: Activity Tolerance, Functional Strength Treatment/Plan Treatment Plan: Continue Plan of Care Treatment Plan: Bed Mobility, Concurrent Therapy, Education, Functional Activity Lyn, Functional Strength, Gait, Safety, Therapeutic Exercise, Transfers Treatment Duration: Oct 12, 2019 Frequency: 6 times per week Estimated Hrs Per Day: .25 hour per day Patient and/or Family Agrees t: Yes Time/GCodes Time In: 1100 Time Out: 1110 Total Billed Treatment Time: 10 Total Billed Treatment visit, ther ex 10 min BRET CHERRY PT Oct 08, 2019 13:57
--- NOTE | 2019-10-08 16:59 | Cardiology Progress Note ---
Cardiology SOAP Progress Note Subjective: Intubated/ventilated. Objective: I&O/Vital Signs 10/08/19 10/08/19 10/08/19 10/08/19 05:00 05:32 06:00 07:00 Pulse 88 87 83 Resp 16 14 B/P (MAP) 132/54 (80) 134/55 (81) Pulse Ox 97 97 O2 Delivery Mechanical Ventilator Mechanical Ventilator Mechanical Ventilator O2 Flow Rate 40.00 40.00 10/08/19 10/08/19 10/08/19 10/08/19 07:00 08:00 08:00 08:00 Temp 36.2 Pulse 83 78 Resp 14 19 B/P (MAP) 117/49 (71) 136/58 (84) Pulse Ox 94 95 O2 Delivery Mechanical Ventilator Mechanical Ventilator Mechanical Ventilator O2 Flow Rate 40.00 40.00 FiO2 40 10/08/19 10/08/19 10/08/19 10/08/19 09:00 09:32 09:44 10:00 Pulse 82 85 85 Resp 25 16 26 B/P (MAP) 120/49 (72) 130/52 134/53 (80) Pulse Ox 94 94 94 O2 Delivery Mechanical Ventilator Mechanical Ventilator O2 Flow Rate 40.00 40.00 FiO2 40 10/08/19 10/08/19 10/08/19 10/08/19 11:00 12:00 12:00 12:00 Temp 36.4 Pulse 81 80 Resp 13 13 B/P (MAP) 140/58 (85) 129/51 (77) Pulse Ox 96 96 O2 Delivery Mechanical Ventilator Mechanical Ventilator Mechanical Ventilator O2 Flow Rate 40.00 40.00 FiO2 40 10/08/19 10/08/19 10/08/19 10/08/19 13:00 13:00 13:43 14:00 Pulse 90 89 85 Resp 19 13 B/P (MAP) 125/46 (72) 132/51 128/49 (75) Pulse Ox 94 96 O2 Delivery Mechanical Ventilator Mechanical Ventilator O2 Flow Rate 40.00 40.00 10/08/19 10/08/19 10/08/19 10/08/19 15:00 15:25 16:00 16:00 Pulse 85 82 86 Resp 16 16 13 B/P (MAP) 140/54 (82) 135/52 (79) Pulse Ox 97 97 97 O2 Delivery Mechanical Ventilator Mechanical Ventilator Mechanical Ventilator O2 Flow Rate 40.00 40.00 FiO2 40 40 10/08/19 00:00 Intake Total 1055 ml Output Total 925 ml Balance 130 ml Weight (Pounds): 218 Weight (Ounces): 0.0 Weight (Calculated Kilograms): 98.339311 Constitutional: well-developed, well-nourished, other ( intubated/ventilated.) Respiratory: No accessory muscle use, No respiratory distress; chest expansion is symmetric, lungs clear to auscultation, other (intubated/ventilated.) Cardiovascular: regular rate-rhythm; No JVD; S1 and S2 Gastrointestional: audible bowel sounds Extremities: other (mod bilat LE swelling) Neurologic/Psychiatric: other (intermitted/ventilated.) Skin: warm/dry Results/Procedures: Labs Laboratory Tests 10/07/19 18:23: Glucometer 80 10/07/19 21:41: Glucometer 110 10/07/19 23:28: Stool Occult Blood Immunoassay NEGATIVE 10/08/19 03:25: White Blood Count 6.7, Red Blood Count 2.41L, Hemoglobin 7.5#L, Hematocrit 24L, Mean Corpuscular Volume 99, Mean Corpuscular Hemoglobin 31, Mean Corpuscular Hemoglobin Concent 31L, Red Cell Distribution Width 15.2H, Platelet Count 205, M vinod Platelet Volume 8.8, Neutrophils (%) (Auto) 95H, Lymphocytes (%) (Auto) 4L, Monocytes (%) (Auto) 2, Eosinophils (%) (Auto) 0, Basophils (%) (Auto) 0, Neutrophils # (Auto) 6.4, Lymphocytes # (Auto) 0.3L, Monocytes # (Auto) 0.1, Eosinophils # (Auto) 0.0, Basophils # (Auto) 0.0, Blood Gas Puncture Site RIGHT RADIAL ARTLINE, Blood Gas Patient Temperature 36.1, Arterial Blood pH 7.46H, Arterial Blood Partial Pressure CO2 49H, Arterial Blood Partial Pressure O2 114H , Arterial Blood HCO3 35H, Arterial Blood Total CO2 36.6H, Arterial Blood Oxygen Saturation 99, Arterial Blood Base Excess 10.5H, Jame Test POSITIVE, Blood Gas Ventilator Setting YES, Blood Gas Inspired Oxygen 40%, Sodium Level 144, Potassium Level 3.5L, Chloride Level 100, Carbon Dioxide Level 28, Anion Gap 16H , Blood Urea Nitrogen 24H, Creatinine 0.77, Estimat Glomerular Filtration Rate > 60, BUN/Creatinine Ratio 31, Glucose Level 138H, Calcium Level 8.7, Phosphorus Level 4.0, Magnesium Level 1.8 10/08/19 08:20: Blood Gas Puncture Site R RAD, Blood Gas Patient Temperature 36.2, Arterial Blood pH 7.46H, Arterial Blood Partial Pressure CO2 50H, Arterial Blood Partial Pressure O2 84, Arterial Blood HCO3 35H, Arterial Blood Total CO2 36.5H, Arterial Blood Oxygen Saturation 97, Arterial Blood Base Excess 10.4H, Jame Test ARTLINE, Blood Gas Ventilator Setting YES, Blood Gas Inspired Oxygen 40% 10/08/19 12:25: Glucometer 146H 10/08/19 12:45: White Blood Count 6.1, Red Blood Count 2.43L, Hemoglobin 7.6L, Hematocrit 24L, Mean Corpuscular Volume 100H, Mean Corpuscular Hemoglobin 31, Mean Corpuscular Hemoglobin Concent 31L, Red Cell Distribution Width 15.0H, Platelet Count 213, Mean Platelet Volume 9.0, Neutrophils (%) (Auto) 92H, Lymphocytes (%) (Auto) 6L, Monocytes (%) (Auto) 2, Eosinophils (%) (Auto) 0, Basophils (%) (Auto) 0, Neutrophils # (Auto) 5.6, Lymphocytes # (Auto) 0.4L, Monocytes # (Auto) 0.1, Eosinophils # (Auto) 0.0, Basophils # (Auto) 0.0 Microbiology 10/07/19 C. difficile GDH Antigen & Toxins - Final, Resulted 10/07/19 Stool Culture - Preliminary, Resulted 10/07/19 Gram Stain - Final, Resulted 10/07/19 Sputum Culture - Preliminary, Resulted Pseudomonas aeruginosa 09/26/19 Blood Culture - Final, Complete No growth A/P: Assessment/Dx: Acute resp failure, ARDS, likely due to COPD exacerbated by aspiration pneumonia, reintubated. Bronchoscopy done with significant mucous plugs removed. Acute renal failure, likely ATN due to hypotension due to sepsis. Resolved. PAF/flutter, currently sinus rhythm. Elevated troponin - likely type 2 [place] d/t hypoxia Card cath of 09/07/18: minimal CAD, LVEF 70-75%, elevated LVEDP Echo of 09/20/19: LVEF 50-55%, RVSP 35 mmHg H/o opiate addiction ETOH abuse Chronic tobacco use Fam h/o early CAD Hyperlipidemia Borderline DM II (fasting blood glucose on 09/07/18) Carotid u/s on 01/05/19: no significant dz Plan: Plan: * Prognosis reasonable. * ARDS, be intubated. Bronchoscopy today. * Monitor lab closely * IV hydralazine for blood pressure control. Thank you for your consultation. Please call me if you have any questions. Taz Velazco MD, FACP, FACC, FSCAI, FHRS, CCDS Interventional Cardiology Cardiac Electrophysiology Vascular Medicine and Endovascular Interventions Graciela VELAZCO MD Oct 08, 2019 16:59
[2019-10-08] MEDS: methylPREDNISolone 40 MG/ML (Solu-MEDROL) VIAL IV SCH (18:18)
[2019-10-09] VITALS (27 sets, daily range): BP systolic 146–170; BP diastolic 52–95
[2019-10-09] MEDS: methylPREDNISolone 40 MG/ML (Solu-MEDROL) VIAL IV SCH ×5 (00:38→23:20)
[2019-10-09] MEDS: hydrALAZINE (APESOLINE) 20 MG/ML VIAL IV SCH ×7 (00:38→23:21)
[2019-10-09] MEDS: meTOprolol 5 MG/5 ML (LOPRESSOR) VIAL IV SCH ×5 (00:38→23:21)
[2019-10-09] MEDS: inSUlin ASPART (NovoLOG) 1 UNIT/0.01 ML (CHARGE PER UNIT) SC SCH ×5 (00:39→23:21)
[2019-10-09] MEDS: RT-ALBUTEROL/IPRATROPIUM 3 ML (DUONEB) VIAL INH SCH ×6 (03:01→22:52)
[2019-10-09] MEDS: DEXMEDETOMIDINE 1,000 MCG/NS 250 ML IV SCH ×8 (03:24→22:13)
[2019-10-09 03:39] LABS: ABG BASE EXCESS 9.4 MMOL/L (-2.5-2.5); ABG OXYGEN SATURATION 99 % (94-100); ABG PCO2 50 MMHG (35-45); ABG PH 7.45 (7.37-7.43); ABG PO2 105 MMHG (79-93); ABG TCO2 35.6 MMOL/L (21.0-31.0); BASOPHILS % (AUTO) 0 % (0-10); EOSINOPHILS % (AUTO) 0 % (0-10); HEMATOCRIT 25 % (35-52); LYMPHOCYTES # (AUTO) 0.3 X 10^3 (1.0-4.0); LYMPHOCYTES % (AUTO) 6 % (12-44); MEAN CORPUSCULAR HEMOGLOBIN 32 PG (25-34); MEAN CORPUSCULAR HGB CONC 32 G/DL (32-36); MEAN CORPUSCULAR VOLUME 99 FL (80-99); MEAN PLATELET VOLUME 9.1 FL (7.4-10.4); MONOCYTES # (AUTO) 0.2 X 10^3 (0.0-1.0); MONOCYTES % (AUTO) 3 % (0-12); NEUTROPHILS # (AUTO) 4.7 X 10^3 (1.8-7.8); NEUTROPHILS % (AUTO) 91 % (42-75); PLATELET COUNT 234 10^3/uL (130-400); RED CELL DISTRIBUTION WIDTH 14.8 % (10.0-14.5); WHITE BLOOD COUNT 5.2 10^3/uL (4.3-11.0)
[2019-10-09 03:43] LABS: ALLENS TEST ARTLINE; INSPIRED O2 40%; PATIENT TEMP 36.3; VENTILATOR YES
[2019-10-09 03:57] LABS: BUN/CREATININE RATIO 31; CALCIUM 9.3 MG/DL (8.5-10.1); CARBON DIOXIDE 29 MMOL/L (21-32); CHLORIDE 101 MMOL/L (98-107); CREATININE SERUM 0.77 MG/DL (0.60-1.30); GFR ESTIMATED > 60; GLUCOSE 155 MG/DL (70-105); PHOSPHORUS 3.2 MG/DL (2.3-4.7); POTASSIUM 3.6 MMOL/L (3.6-5.0); SODIUM 144 MMOL/L (135-145)
[2019-10-09] MEDS: VANCOMYCIN 50 MG/ML ORAL SOLN 150 ML PO SCH ×4 (04:10→21:08)
[2019-10-09] MEDS: MEROPENEM 500 MG/SWFI 10 ML IV PUSH IV SCH ×8 (04:13→21:45)
--- NOTE | 2019-10-09 04:59 | Pulmonary Progress Note ---
Subjective Time Seen by a Provider: 04:58 Subjective/Events-last exam Pt is sedated on vent. Sepsis Event Evaluation Height, Weight, BMI Height: 5'5.00" Weight: 218lbs. 0.0oz. 98.122091ge; 34.07 BMI Method:Stated Exam Exam Vital Signs Date Time Temp Pulse Resp B/P (MAP) Pulse Ox O2 Delivery O2 Flow Rate FiO2 10/09/19 04:00 87 15 150/61 (90) 95 Mechanical Ventilator 40.00 10/09/19 04:00 Mechanical Ventilator 40 10/09/19 03:29 36.3 10/09/19 03:23 156/63 10/09/19 03:02 79 14 96 40 10/09/19 03:00 79 18 163/67 (99) 97 Mechanical Ventilator 40.00 10/09/19 02:00 79 13 158/66 (96) 97 Mechanical Ventilator 40.00 10/09/19 01:00 82 16 154/65 (94) 98 Mechanical Ventilator 40.00 10/09/19 01:00 85 10/09/19 00:13 152/63 10/09/19 00:00 Mechanical Ventilator 40 10/09/19 00:00 90 15 146/60 (88) 97 Mechanical Ventilator 40.00 10/09/19 00:00 36.4 10/08/19 23:00 92 15 158/64 (95) 96 Mechanical Ventilator 40.00 10/08/19 22:00 102 22 144/58 (86) 91 Mechanical Ventilator 40.00 10/08/19 21:00 96 14 149/59 (89) 94 Mechanical Ventilator 40.00 10/08/19 21:00 147/58 10/08/19 20:00 36.2 10/08/19 20:00 Mechanical Ventilator 40 10/08/19 20:00 92 19 140/54 (82) 93 Mechanical Ventilator 40.00 10/08/19 19:00 97 16 135/51 (79) 90 Mechanical Ventilator 40.00 10/08/19 19:00 95 10/08/19 18:51 82 16 91 40 10/08/19 18:00 82 16 144/57 (86) 96 Mechanical Ventilator 40.00 10/08/19 17:41 163/95 10/08/19 17:00 17 134/55 (81) 97 Mechanical Ventilator 40.00 10/08/19 16:00 Mechanical Ventilator 40 10/08/19 16:00 36.5 10/08/19 16:00 86 13 135/52 (79) 97 Mechanical Ventilator 40.00 10/08/19 15:25 82 16 97 40 10/08/19 15:00 85 16 140/54 (82) 97 Mechanical Ventilator 40.00 10/08/19 14:00 85 13 128/49 (75) 96 Mechanical Ventilator 40.00 10/08/19 13:43 132/51 10/08/19 13:00 89 19 125/46 (72) 94 Mechanical Ventilator 40.00 10/08/19 13:00 90 10/08/19 12:00 Mechanical Ventilator 40 10/08/19 12:00 36.4 10/08/19 12:00 80 13 129/51 (77) 96 Mechanical Ventilator 40.00 10/08/19 11:00 81 13 140/58 (85) 96 Mechanical Ventilator 40.00 10/08/19 10:00 85 26 134/53 (80) 94 Mechanical Ventilator 40.00 10/08/19 09:44 85 16 94 40 10/08/19 09:32 130/52 10/08/19 09:00 82 25 120/49 (72) 94 Mechanical Ventilator 40.00 10/08/19 08:00 78 19 136/58 (84) 95 Mechanical Ventilator 40.00 10/08/19 08:00 36.2 10/08/19 08:00 Mechanical Ventilator 40 10/08/19 07:00 83 14 117/49 (71) 94 Mechanical Ventilator 40.00 10/08/19 07:00 83 10/08/19 06:00 87 14 134/55 (81) 97 Mechanical Ventilator 40.00 10/08/19 05:32 Mechanical Ventilator 10/08/19 05:00 88 16 132/54 (80) 97 Mechanical Ventilator 40.00 I & O 10/09/19 07:00 Intake Total 890 ml Output Total 3000 ml Balance -2110 ml Height & Weight Height: 5'5.00" Weight: 218lbs. 0.0oz. 98.222802ts; 34.07 BMI Method:Stated General Appearance: Chronically ill, Obese, Other (on vent) HEENT: Other Neck: Supple, Other (Bleeding at site of right IJ, very slow ooze) Respiratory: No Accessory Muscle Use, Decreased Breath Sounds, Other (on vent) Cardiovascular: Regular Rate, Rhythm, No Murmur Capillary Refill: Less Than 3 Seconds Gastrointestinal: soft, no organomegaly, no pulsatile mass Extremity: Pedal Edema, Swelling (pitting to knees bilaterally) Neurologic/Psychiatric: Other (sedated, appears comfortable) Skin: Normal Color, Warm/Dry, Pallor Lymphatic: No Adenopathy Results Lab Laboratory Tests 10/08/19 03:25 10/08/19 12:45 10/09/19 03:28 Assessment/Plan Assessment/Plan Acute respiratory failure with hypoxia - reintubated probably secondary to mucous plugging vs aspiration. -s/p bronchoscopy -Will wean vent today -Solumedrol to 40 Q 6 -Continue Bumex -CT of chest reviewed Seizure prior to reintubation -Raeann. Pseudomonus PNA -Continue Merrem changed from Zosyn 10/07 -Repeat cultures pending COPDAE -Solumedrol -SVNS q 4 Afib/flutter RLE DVT -Lovenox Alcohol abuse Morbid obesity JACLYN SAVAGE DO Oct 09, 2019 04:59
[2019-10-09] MEDS ORDERED: BUMETANIDE 1 MG/4 ML (BUMEX) VIAL IV ONE (05:00)
[2019-10-09 05:31] LABS: LYMPHOCYTES % (MANUAL) 2 %; MONOCYTES % (MANUAL) 1 %; NEUTROPHILS % (MANUAL) 97 %
[2019-10-09] MEDS: MAGNESIUM 1 GM/100 ML IVPB 100 ML IV SCH (05:50)
[2019-10-09] MEDS: KCL 20 MEQ TAB (K-DUR) PO SCH (05:50)
[2019-10-09] MEDS: POTASSIUM CL 10MEQ/50ML IVPB 50 ML IV SCH ×5 (05:50→08:22)
[2019-10-09] MEDS: guaiFENesin SYRUP 100 MG/5 ML 10 ML (ROBITUSSIN SF) PO SCH ×3 (05:51→22:05)
[2019-10-09] MEDS: CALCIUM ACETATE 667 MG CAP (PHOSLO) PO SCH ×3 (05:51→17:17)
[2019-10-09] MEDS: ENOXAPARIN 100 MG/1 ML (LOVENOX) SYR SC SCH ×2 (05:57→17:42)
[2019-10-09] MEDS: aCETylcysteine 20% (MUCOMYST) 30ML SOLN VIAL INH SCH ×5 (06:13→22:52)
[2019-10-09] MEDS: BUMETANIDE 1 MG/4 ML (BUMEX) VIAL IV SCH ×2 (06:19→21:04)
--- NOTE | 2019-10-09 08:15 | Diagnostic Imaging Report ---
INDICATION: Sepsis and renal failure. Comparison made with prior examination from 10/08/19. FINDINGS: Heart size is normal. There are bibasal infiltrates. There are small bilateral pleural effusions. There is no pneumothorax. Mediastinum is unremarkable. Lines and tubes are in satisfactory position. IMPRESSION: Patchy bibasilar pulmonary infiltrates and small bilateral pleural effusions. Dictated by: Dictated on workstation # [id number]
[2019-10-09] MEDS: KCL 20 MEQ POWDER FOR ORAL SOLUTION PO SCH ×2 (08:21→21:08)
[2019-10-09] MEDS: LEVETIRACETAM INJECTION 500 MG in NS (IVPB) 100 ML IV SCH ×2 (08:21→20:42)
[2019-10-09] MEDS: AMIODARONE 200 MG (CORDARONE) TAB NG SCH ×2 (08:21→21:08)
[2019-10-09] MEDS: FAMOTIDINE 20MG/2ML IV (PEPCID) IVP SCH ×2 (08:22→20:48)
[2019-10-09] MEDS: CHLORHEXIDINE 0.12% SOLN 15 ML (PERIDEX) UDC PO SCH ×2 (08:22→20:43)
[2019-10-09 09:05] LABS: ABG BASE EXCESS 10.4 MMOL/L (-2.5-2.5); ABG OXYGEN SATURATION 95 % (94-100); ABG PCO2 44 MMHG (35-45); ABG PO2 75 MMHG (79-93); ABG TCO2 35.8 MMOL/L (21.0-31.0)
[2019-10-09 09:06] LABS: INSPIRED O2 35%; PATIENT TEMP 36.3; VENTILATOR YES
--- NOTE | 2019-10-09 09:22 | Progress Note - Hospitalist ---
Subjective HPI/CC On Admission Date Seen by Provider: Oct 09, 2019 Time Seen by Provider: 09:14 Subjective/Events-last exam Pt is currently on weaning trial. Able to open eyes and is quite alert. Nods head vigorously when told we can hopefully extubate today or tomorrow. Objective Exam Vital Signs Vital Signs Date Time Temp Pulse Resp B/P (MAP) Pulse Ox O2 Delivery O2 Flow Rate FiO2 10/09/19 08:15 Mechanical Ventilator 35.00 10/09/19 08:13 70 15 95 35 10/09/19 08:00 168/65 (99) 10/09/19 03:29 36.3 Capillary Refill : Less Than 3 Seconds General Appearance: Chronically ill, Obese Respiratory: Decreased Breath Sounds, Other (on vent) Cardiovascular: Regular Rate, Rhythm, No Murmur Gastrointestinal: Normal Bowel Sounds, Non Tender, Soft Extremity: Pedal Edema, Swelling Neurologic/Psychiatric: Alert Results/Procedures Lab Laboratory Tests 10/08/19 12:45 10/09/19 03:28 Patient resulted labs reviewed. Imaging: Reviewed Imaging Report Assessment/Plan Assessment and Plan Assess & Plan/Chief Complaint ARDS Acute respiratory failure with hypoxia Endotracheally intubated COPD with acute exacerbation - Reintubated 10/07 due to lethargy and hypoxia - Pulm consulted, appreciate recs - s/p bronch 10/08 that showed mucus plugging- sent for cultures Continue Bumex Continue Merrem per sensitivities for pseudomonas- repeat sputum again shows pseudomonas - Consider tobramycin breathing treatments is pseudomonas still on bronch cultures Continue steroids Indeterminant C Diff -Continue oral vanc - Await confirmatory testing AFIB/Flutter with RVR HTN Continue Lovenox, pharmacy dosing for renal function - Metoprolol, Vasotec Cardiology consulted, appreciate recs Seizure like activity - Continue Keppra - ?withdrawal from benzos - mag normal RLE DVT Lovenox Steroid-induced hyperglycemia Continue Levemir SSI Debility -PT/OT Alcohol abuse Morbid obesity Critical Care Critically Ill Patient Diagnosis/Problems Diagnosis/Problems (1) ARDS (adult respiratory distress syndrome) Status: Acute (2) Alcohol use Status: Acute (3) Atrial fibrillation with rapid ventricular response Status: Acute (4) Bilateral pneumonia Status: Acute Qualifiers: Pneumonia type: due to unspecified organism Lung location: lower lobe of lung Qualified Codes: J18.1 - Lobar pneumonia, unspecified organism (5) Acute respiratory failure Status: Acute Qualifiers: Respiratory failure complication: hypoxia Qualified Codes: J96.01 - Acute respiratory failure with hypoxia Clinical Quality Measures DVT/VTE Risk/Contraindication: Risk Factor Score Per Nursin RFS Level Per Nursing on Admit: 4+=Very High BROOKLYN DUNLAP MD Oct 09, 2019 09:22
--- NOTE | 2019-10-09 15:29 | Cardiology Progress Note ---
Cardiology SOAP Progress Note Subjective: No significant cardiac complaints. Objective: I&O/Vital Signs 10/09/19 10/09/19 10/09/19 10/09/19 03:29 04:00 04:00 05:00 Temp 36.3 Pulse 87 77 Resp 15 14 B/P (MAP) 150/61 (90) 161/66 (97) Pulse Ox 95 96 O2 Delivery Mechanical Ventilator Mechanical Ventilator Mechanical Ventilator O2 Flow Rate 40.00 40.00 FiO2 40 10/09/19 10/09/19 10/09/19 10/09/19 06:00 06:13 07:00 07:00 Pulse 75 71 72 71 Resp 14 14 13 B/P (MAP) 168/67 (100) 161/64 (96) Pulse Ox 97 96 94 O2 Delivery Mechanical Ventilator Mechanical Ventilator O2 Flow Rate 40.00 40.00 FiO2 40 10/09/19 10/09/19 10/09/19 10/09/19 08:00 08:00 08:00 08:13 Temp 36.6 Pulse 73 70 Resp 13 15 B/P (MAP) 168/65 (99) Pulse Ox 93 95 O2 Delivery Mechanical Ventilator Mechanical Ventilator O2 Flow Rate 40.00 FiO2 35 35 10/09/19 10/09/19 10/09/19 10/09/19 08:15 09:00 09:50 09:54 Pulse 73 Resp 12 B/P (MAP) 153/60 (91) Pulse Ox 93 93 O2 Delivery Mechanical Ventilator Mechanical Ventilator High Flow N/C High Flow N/C O2 Flow Rate 35.00 35.00 3.00 3.00 10/09/19 10/09/19 10/09/19 10/09/19 10:00 11:00 12:00 12:00 Temp 36.2 Pulse 82 81 80 Resp 13 15 15 B/P (MAP) 165/63 (97) 161/62 (95) 159/61 (93) Pulse Ox 91 94 94 O2 Delivery High Flow N/C High Flow N/C High Flow N/C O2 Flow Rate 3.00 3.00 3.00 10/09/19 10/09/19 10/09/19 10/09/19 12:05 13:00 14:14 15:08 Pulse 80 Pulse Ox 93 O2 Delivery Nasal Cannula High Flow N/C Vapotherm O2 Flow Rate 3.00 3.50 25.00 40.00 1/5/20 00:00 Intake Total 320 ml Output Total 2350 ml Balance -2030 ml Weight (Pounds): 218 Weight (Ounces): 0.0 Weight (Calculated Kilograms): 98.281016 Constitutional: well-developed, well-nourished Respiratory: No accessory muscle use, No respiratory distress; chest expansion is symmetric, lungs clear to auscultation Cardiovascular: regular rate-rhythm; No JVD; S1 and S2 Gastrointestional: audible bowel sounds Extremities: other (mod bilat LE swelling) Neurologic/Psychiatric: no motor/sensory deficits, alert, normal mood/affect, oriented x 3 Skin: warm/dry Results/Procedures: Labs Laboratory Tests 10/08/19 17:37: Glucometer 150H 10/08/19 20:03: Glucometer 182H 10/09/19 00:10: Glucometer 190H 10/09/19 03:28: White Blood Count 5.2, Red Blood Count 2.50L, Hemoglobin 8.0L, Hematocrit 25L, Mean Corpuscular Volume 99, Mean Corpuscular Hemoglobin 32, Mean Corpuscular Hemoglobin Concent 32, Red Cell Distribution Width 14.8H, Platelet Count 234, Mean Platelet Volume 9.1, Neutrophils (%) (Auto) 91H, Lymphocytes (%) (Auto) 6L, Monocytes (%) (Auto) 3, Eosinophils (%) (Auto) 0, Basophils (%) (Auto) 0, Neutrophils # (Auto) 4.7, Lymphocytes # (Auto) 0.3L, Monocytes # (Auto) 0.2, Eosinophils # (Auto) 0.0, Basophils # (Auto) 0.0, Neutrophils % (Manual) 97, Lymphocytes % (Manual) 2, Monocytes % (Manual) 1, Blood Gas Puncture Site RIGHT RADIAL ARTLINE, Blood Gas Patient Temperature 36.3, Arterial Blood pH 7.45H, Arterial Blood Partial Pressure CO2 50H, Arterial Blood Partial Pressure O2 105H , Arterial Blood HCO3 34H, Arterial Blood Total CO2 35.6H, Arterial Blood Oxygen Saturation 99, Arterial Blood Base Excess 9.4H, Jame Test ARTLINE, Blood Gas Ventilator Setting YES, Blood Gas Inspired Oxygen 40%, Sodium Level 144, Potassium Level 3.6, Chloride Level 101, Carbon Dioxide Level 29, Anion Gap 14, Blood Urea Nitrogen 24H, Creatinine 0.77, Estimat Glomerular Filtration Rate > 60, BUN/Creatinine Ratio 31, Glucose Level 155H, Calcium Level 9.3, Phosphorus Level 3.2, Magnesium Level 2.0 10/09/19 08:48: Blood Gas Puncture Site NA, Blood Gas Patient Temperature 36.3, Arterial Blood pH 7.50H, Arterial Blood Partial Pressure CO2 44, Arterial Blood Partial Pressur e O2 75L, Arterial Blood HCO3 34H, Arterial Blood Total CO2 35.8H, Arterial Blood Oxygen Saturation 95, Arterial Blood Base Excess 10.4H, Jame Test NA, Blood Gas Ventilator Setting YES, Blood Gas Inspired Oxygen 35% 10/09/19 11:26: Glucometer 153H Microbiology 10/07/19 C. difficile GDH Antigen & Toxins - Final, Resulted 10/07/19 Stool Culture - Preliminary, Resulted Presumptive Usual Martha Culture In Progress 10/07/19 Gram Stain - Final, Resulted 10/07/19 Sputum Culture - Preliminary, Resulted Pseudomonas aeruginosa 09/26/19 Blood Culture - Final, Complete No growth A/P: Assessment/Dx: Acute resp failure, ARDS, likely due to COPD exacerbated by aspiration pneumonia, extubated again. Acute renal failure, likely ATN due to hypotension due to sepsis. Resolved. PAF/flutter, currently sinus rhythm. Elevated troponin - likely type 2 [place] d/t hypoxia Card cath of 09/07/18: minimal CAD, LVEF 70-75%, elevated LVEDP Echo of 09/20/19: LVEF 50-55%, RVSP 35 mmHg H/o opiate addiction ETOH abuse Chronic tobacco use Fam h/o early CAD Hyperlipidemia Borderline DM II (fasting blood glucose on 09/07/18) Carotid u/s on 01/05/19: no significant dz Plan: Plan: * Continue blood pressure control with metoprolol and hydralazine. * Sinus rhythm with no significant tachycardia. Thank you for your consultation. Please call me if you have any questions. Taz Velazco MD, FACP, FACC, FSCAI, FHRS, CCDS Interventional Cardiology Cardiac Electrophysiology Vascular Medicine and Endovascular Interventions Graciela VELAZCO MD Oct 09, 2019 15:29
[2019-10-09] MEDS: fentaNYL INJECTION 100 MCG/2 ML AMP IVP PRN (21:05)
[2019-10-10] VITALS (28 sets, daily range): BP systolic 150–192; BP diastolic 55–86
[2019-10-10] MEDS: RT-ALBUTEROL/IPRATROPIUM 3 ML (DUONEB) VIAL INH SCH ×6 (03:01→22:14)
[2019-10-10] MEDS: aCETylcysteine 20% (MUCOMYST) 30ML SOLN VIAL INH SCH ×6 (03:02→22:15)
[2019-10-10] MEDS: hydrALAZINE (APESOLINE) 20 MG/ML VIAL IV SCH (03:25)
[2019-10-10] MEDS: VANCOMYCIN 50 MG/ML ORAL SOLN 150 ML PO SCH ×4 (03:26→20:07)
[2019-10-10] MEDS: MEROPENEM 500 MG/SWFI 10 ML IV PUSH IV SCH ×8 (03:26→21:55)
[2019-10-10 03:37] LABS: BASOPHILS % (AUTO) 0 % (0-10); EOSINOPHILS % (AUTO) 0 % (0-10); HEMATOCRIT 28 % (35-52); HEMOGLOBIN 8.7 G/DL (11.5-16.0); LYMPHOCYTES # (AUTO) 0.5 X 10^3 (1.0-4.0); LYMPHOCYTES % (AUTO) 8 % (12-44); MEAN CORPUSCULAR HEMOGLOBIN 31 PG (25-34); MEAN CORPUSCULAR HGB CONC 31 G/DL (32-36); MEAN CORPUSCULAR VOLUME 99 FL (80-99); MEAN PLATELET VOLUME 8.6 FL (7.4-10.4); MONOCYTES # (AUTO) 0.3 X 10^3 (0.0-1.0); MONOCYTES % (AUTO) 4 % (0-12); NEUTROPHILS # (AUTO) 4.9 X 10^3 (1.8-7.8); NEUTROPHILS % (AUTO) 87 % (42-75); PLATELET COUNT 294 10^3/uL (130-400); RED CELL DISTRIBUTION WIDTH 15.1 % (10.0-14.5); WHITE BLOOD COUNT 5.7 10^3/uL (4.3-11.0)
[2019-10-10] MEDS: fentaNYL INJECTION 100 MCG/2 ML AMP IVP PRN (03:43)
[2019-10-10 03:58] LABS: BUN/CREATININE RATIO 38; CALCIUM 9.3 MG/DL (8.5-10.1); CARBON DIOXIDE 29 MMOL/L (21-32); CHLORIDE 101 MMOL/L (98-107); GFR ESTIMATED > 60; GLUCOSE 148 MG/DL (70-105); PHOSPHORUS 2.9 MG/DL (2.3-4.7); POTASSIUM 3.5 MMOL/L (3.6-5.0); SODIUM 145 MMOL/L (135-145)
[2019-10-10] MEDS ORDERED: hydrALAZINE (APESOLINE) 20 MG/ML VIAL IV PRN (05:00)
[2019-10-10] MEDS: ENOXAPARIN 100 MG/1 ML (LOVENOX) SYR SC SCH ×2 (05:24→17:28)
[2019-10-10] MEDS: DEXMEDETOMIDINE 1,000 MCG/NS 250 ML IV SCH ×6 (05:25→19:12)
[2019-10-10] MEDS: POTASSIUM CL 10MEQ/50ML IVPB 50 ML IV SCH ×5 (05:53→06:58)
[2019-10-10] MEDS: methylPREDNISolone 40 MG/ML (Solu-MEDROL) VIAL IV SCH ×3 (05:54→17:28)
[2019-10-10] MEDS: MAGNESIUM 1 GM/100 ML IVPB 100 ML IV SCH (05:54)
[2019-10-10] MEDS: KCL 20 MEQ TAB (K-DUR) PO SCH (05:54)
[2019-10-10] MEDS: guaiFENesin SYRUP 100 MG/5 ML 10 ML (ROBITUSSIN SF) PO SCH ×3 (05:55→21:58)
[2019-10-10] MEDS: inSUlin ASPART (NovoLOG) 1 UNIT/0.01 ML (CHARGE PER UNIT) SC SCH ×3 (05:55→17:37)
[2019-10-10 06:45] LABS: ABG BASE EXCESS 9.6 MMOL/L (-2.5-2.5); ABG OXYGEN SATURATION 94 % (94-100); ABG PCO2 42 MMHG (35-45); ABG PH 7.51 (7.37-7.43); ABG PO2 68 MMHG (79-93); ABG TCO2 34.6 MMOL/L (21.0-31.0)
[2019-10-10 06:46] LABS: ALLENS TEST POSITIVE; INSPIRED O2 50%; PATIENT TEMP 36.8; VENTILATOR NO
[2019-10-10] MEDS ORDERED: BUMETANIDE 2.5 MG/10 ML (BUMEX) VIAL ONE (07:24)
[2019-10-10] MEDS ORDERED: BUMETANIDE 1 MG/4 ML (BUMEX) VIAL IV ONE (07:30)
[2019-10-10 07:32] LABS: ABG BASE EXCESS 9.9 MMOL/L (-2.5-2.5); ABG OXYGEN SATURATION 85 % (94-100); ABG PCO2 40 MMHG (35-45); ABG PH 7.53 (7.37-7.43); ABG PO2 51 MMHG (79-93); ABG TCO2 34.9 MMOL/L (21.0-31.0)
--- NOTE | 2019-10-10 07:33 | Diagnostic Imaging Report ---
EXAMINATION: Chest radiograph, portable AP view. DATE: 10/10/2019 4:21 AM hours. INDICATION: 54-year-old female, renal failure, sepsis. COMPARISON: October 09, 2019. FINDINGS: The right internal jugular central venous line overlies the lower SVC. There is redemonstrated nonspecific bibasilar airspace consolidation with probable bilateral pleural effusions. There is no identified pneumothorax. Stable overall appearance of the cardiomediastinal silhouette. The previously noted endotracheal tube and nasogastric tube have been removed. IMPRESSION: 1. Unchanged nonspecific bibasilar airspace consolidation with bilateral pleural effusions. 2. Interval removal of the previously noted endotracheal tube and nasogastric tube. Dictated by: Dictated on workstation # [id number]
[2019-10-10 07:34] LABS: INSPIRED O2 40 L; PATIENT TEMP 36; VENTILATOR NO
--- NOTE | 2019-10-10 08:11 | Pulmonary Progress Note ---
Subjective Time Seen by a Provider: 04:30 Subjective/Events-last exam PT is doing well off vent and currently on Vapotherm Sepsis Event Evaluation Height, Weight, BMI Height: 5'5.00" Weight: 218lbs. 0.0oz. 98.154598jw; 34.07 BMI Method:Stated Exam Exam Vital Signs Date Time Temp Pulse Resp B/P (MAP) Pulse Ox O2 Delivery O2 Flow Rate FiO2 10/10/19 06:00 120 17 165/64 (97) 91 Vapotherm 25.00 50.00 10/10/19 05:00 114 15 160/59 (92) 91 Vapotherm 25.00 50.00 10/10/19 04:00 Vapotherm 40 10/10/19 04:00 36.9 10/10/19 04:00 121 15 159/62 (94) 90 Vapotherm 25.00 50.00 10/10/19 03:02 91 Vapotherm 25.00 50 10/10/19 03:00 103 16 164/61 (95) 92 Vapotherm 25.00 50.00 10/10/19 02:00 101 15 160/59 (92) 91 Vapotherm 25.00 50.00 10/10/19 01:00 105 16 158/58 (91) 90 Vapotherm 25.00 50.00 10/10/19 00:35 107 10/10/19 00:31 Vapotherm 25.00 50.00 10/10/19 00:00 99 18 152/55 (87) 90 Vapotherm 25.00 45.00 10/10/19 00:00 Vapotherm 40 10/10/19 00:00 36.6 10/09/19 23:00 104 17 153/56 (88) 91 Vapotherm 25.00 45.00 10/09/19 22:53 91 Vapotherm 25.00 40 10/09/19 22:00 107 22 154/58 (90) 90 Vapotherm 25.00 45.00 10/09/19 21:00 97 14 152/61 (91) 91 Vapotherm 25.00 45.00 10/09/19 20:00 Vapotherm 40 10/09/19 20:00 36.6 10/09/19 20:00 91 17 150/53 (85) 90 Vapotherm 25.00 45.00 10/09/19 19:04 92 Vapotherm 25.00 40 10/09/19 19:00 81 10/09/19 19:00 81 15 151/54 (86) 92 Vapotherm 25.00 45.00 10/09/19 18:00 84 16 146/52 (83) 90 Vapotherm 25.00 45.00 10/09/19 17:00 89 16 154/54 (87) 91 Vapotherm 25.00 40.00 10/09/19 16:00 93 15 162/59 (93) 92 Vapotherm 25.00 40.00 10/09/19 16:00 Vapotherm 40 10/09/19 16:00 36.4 10/09/19 15:08 Vapotherm 25.00 40.00 10/09/19 15:05 93 Vapotherm 25.00 40 10/09/19 15:00 85 17 157/59 (91) 93 High Flow N/C 3.00 10/09/19 14:14 93 High Flow N/C 3.50 10/09/19 14:00 93 18 150/57 (88) 90 High Flow N/C 3.00 10/09/19 13:00 80 10/09/19 13:00 78 29 165/64 (97) 94 High Flow N/C 3.00 10/09/19 12:05 Nasal Cannula 3.00 10/09/19 12:00 36.2 10/09/19 12:00 80 15 159/61 (93) 94 High Flow N/C 3.00 10/09/19 11:00 81 15 161/62 (95) 94 High Flow N/C 3.00 10/09/19 10:00 82 13 165/63 (97) 91 High Flow N/C 3.00 10/09/19 09:54 93 High Flow N/C 3.00 10/09/19 09:50 High Flow N/C 3.00 10/09/19 09:00 73 12 153/60 (91) 93 Mechanical Ventilator 35.00 10/09/19 08:15 Mechanical Ventilator 35.00 10/09/19 08:13 70 15 95 35 I & O 10/10/19 07:00 Intake Total 810 ml Output Total 3550 ml Balance -2740 ml Height & Weight Height: 5'5.00" Weight: 218lbs. 0.0oz. 98.182210og; 34.07 BMI Method:Stated General Appearance: Anxious, Chronically ill, Mild Distress Neck: Non Tender, Supple Respiratory: No Accessory Muscle Use, Decreased Breath Sounds, Wheezing Cardiovascular: Regular Rate, Rhythm, Tachycardia Capillary Refill: Less Than 3 Seconds Gastrointestinal: soft, no organomegaly, no pulsatile mass Extremity: Normal Capillary Refill, Pedal Edema Neurologic/Psychiatric: Alert, Oriented x3, Normal Mood/Affect Skin: Normal Color Lymphatic: No Adenopathy Results Lab Laboratory Tests 10/08/19 12:45 10/09/19 03:28 10/10/19 03:30 Assessment/Plan Assessment/Plan Acute respiratory failure with hypoxia - reintubated probably secondary to mucous plugging vs aspiration. -s/p bronchoscopy -extubated yesterday -Solumedrol to 40 Q 6 -Continue Bumex -CT of chest reviewed Seizure prior to reintubation -Keppra. Pseudomonus PNA -Continue Merrem changed from Zosyn 10/07 -Repeat cultures pending COPDAE -Solumedrol -SVNS q 4 Afib/flutter RLE DVT -Lovenox Alcohol abuse Morbid obesity 0800 UPDATE: Called to bedside secondary to acute worsening respiratory distress. PT was increased to 100% on Vapotherm. RT is setting up BiPAP. PT states she does not want to be reintubated. Pt also states she does not want chest compressions. I called Pt's daughter and updated her on pt's current status and her wishes to be a DNR. Daughter states she will be here after work. I will place DNR order on chart since pt is A&O and clearly states her wishes of being a full DNR. total time spent with pt is 60min. Critical Care: Critically Ill Patient Time spent with patient (mins): 60 JACLYN SAVAGE DO Oct 10, 2019 08:11
[2019-10-10 08:55] LABS: ABG BASE EXCESS 9.9 MMOL/L (-2.5-2.5); ABG OXYGEN SATURATION 96 % (94-100); ABG PCO2 42 MMHG (35-45); ABG PH 7.51 (7.37-7.43); ABG PO2 74 MMHG (79-93); ABG TCO2 35.1 MMOL/L (21.0-31.0)
[2019-10-10 08:57] LABS: INSPIRED O2 50% FLOW RATE; PATIENT TEMP 36.3; VENTILATOR YES
[2019-10-10] MEDS ORDERED: meTOprolol TARTRATE 50 MG (LOPRESSOR) TAB PO SCH (09:00)
--- NOTE | 2019-10-10 09:00 | ST Dysphagia Evaluation ---
Speech Evaluation-General Medical Diagnosis Acute respiratory failure with hypoxia Onset Date: Oct 20, 2019 Therapy Diagnosis Therapy Diagnosis: Oropharyngeal Dysphagia Precautions Precautions: Aspiration Precautions/Isolations: Aspiration Referral Referring Physician: Dr. Escobar Medical History Pertinent Medical History: GERD, HTN Reviewed History: Yes Social History Current Living Status: Alone Speech PLF/Current-Dysphagia Prior Level of Function Patient lived alone and was independent for her daily needs. Subjective Patient was pleasant and cooperative with the Bedside Dysphagia Evaluation. Cognitive Status Patient Orientation: Person, Place, Situation Oral Motor Skills Dentition: Edentalous Denture Type: Full- Upper & Lower Ability to Follow Directions: Good Patient was NPO pending BDE. Oral Expression Ability: No Impairment Voice Voice Phonatory-Based Quality: Breathy Voice Pitch: Normal Voice Loudness: Mildly Soft/Quiet Face Facial Symmetry: Symmetrical Oral-Facial Assessment Oral-Facial Dentition: Normal Labial Seal Description: Normal Lingual Protrusion: Normal Lingual ROM: Normal Lingual Strength: Normal Pharynx Velopharyngeal Move.: Normal Volitional Dry Swallow: Yes Voluntary Cough: Yes Can Clear Throat Volitionally: Yes Dysphagia Evaluation Consistencies Presented: Thin Liquid, Pureed Oral phase within normal function for consistencies trialed. Dietary Recommendations: Mechanical Soft Liquid Recommendations: Thin Swallowing Precautions: Alternate Liquids/Solids, Double Swallow, Decreased Bolus 1/2 Tsp, Liquids from Straw, Liquids from Spoon, Small Bites and Sips, Sitting Upright 90 Degrees, Sitting 90 Degrees 30 Post Intake Dysphagia Evaluation Summary Patient was admitted to the hospital via ED and was intubated at that time. She was diagnosed with sepsis and has been intubated twice. She continues to be on CPaP at this time. Patient states her daughter will be bringing her dentures for oral intake. She was able to complete BDE without incident. Patient was given thin liquids via 1/2 tsp x2 and small sip via straw x2 without difficulty. Patient was presented puree via 1/2 tsp x2 and mechanical soft x2 without difficulty. No s/s of aspiration were noted. Patient is recommended for a Dysphagia II diet level with thin. Patient will receive skilled ST for dysphagia and ongoing diet assessment. Barriers to Learning Patient's medical status Speech Short Term Goals Short Term Goals Short Term Goals 1) Patient will tolerate least restrictive diet level without s/s of aspiration at 90% or greater. 2) Patient/caregiver will utilize compensatory strategies as trained at 90% or greater with minimal cues. Speech Accounting Analyst Goals Residential Goals Patient will maintain adequate nutrition/hydration via safe, effective swallow function. Speech-Plan Patient/Family Goals Patient/Family Goals: Patient's plan upon discharge is unknown at this time. Treatment Plan Speech Therapy Treatment Plan: Continue Plan of Care Patient will receive skilled ST services for dysphagia. Treatment Duration: Oct 19, 2019 Frequency: 3 times per week Estimated Hrs Per Day: .25 hour per day Rehab Potential: Guarded Barriers to Learning: Patient's medical status Pt/Family Agrees to Plan: Yes Safety Risks/Education Teaching Recipient: Patient Teaching Methods: Discussion Response to Teaching: Verbalize Understanding Education Topics Provided: Safety of oral intake and diet level Time Speech Therapy Time In: 08:10 Speech Therapy Time Out: 08:25 Total Billed Time: 15 Billed Treatment Time JUAN CARLOS White [facility] [facility] Oct 10, 2019 09:00
[2019-10-10] MEDS: FAMOTIDINE 20MG/2ML IV (PEPCID) IVP SCH ×2 (10:12→20:03)
[2019-10-10] MEDS: LEVETIRACETAM INJECTION 500 MG in NS (IVPB) 100 ML IV SCH ×2 (10:12→20:02)
[2019-10-10] MEDS: AMIODARONE 200 MG (CORDARONE) TAB NG SCH ×2 (10:12→20:02)
[2019-10-10] MEDS: lisINopril 10 MG (PRINIVIL) TABLET PO SCH (10:21)
[2019-10-10] MEDS: KCL 20 MEQ POWDER FOR ORAL SOLUTION PO SCH ×2 (10:22→20:02)
[2019-10-10] MEDS: BUMETANIDE 1 MG/4 ML (BUMEX) VIAL IV SCH ×2 (10:23→20:04)
--- NOTE | 2019-10-10 10:35 | NUR ---
PALLIATIVE CARE RN in to see patient. She has been extubated and has progressed from NC to Vapotherm and was on BiPAP upon my arrival to room. Parents and eldest daughter is present for discussion about GOALS OF CARE. Patient confirmed that she does not want to be reintubated if necessary, nor does she want chest compressions if her heart should stop. She would like to get better but understands that she may not and may need hospice once she is no longer acutely improving. Her had [facility] and this is who they would like to utilized when the time is right. She understands that she possibly will need [facility] facility or INPT REHAB to get stronger. We are not at the point of knowing which direction this hospitalization will turn. Will continue to follow as able.
--- NOTE | 2019-10-10 10:38 | Progress Note - Cardiology ---
Cardiology SOAP Progress Note Subjective: No cp or palp or syncope No shortness of breath at rest Gen weakness Notes anxiety, requests Ativan Objective: I&O/Vital Signs 10/09/19 10/09/19 10/10/19 10/10/19 22:53 23:00 00:00 00:00 Temp 36.6 Pulse 104 Resp 17 B/P (MAP) 153/56 (88) Pulse Ox 91 91 O2 Delivery Vapotherm Vapotherm Vapotherm O2 Flow Rate 25.00 25.00 45.00 FiO2 40 40 10/10/19 10/10/19 10/10/19 10/10/19 00:00 00:31 00:35 01:00 Pulse 99 107 105 Resp 18 16 B/P (MAP) 152/55 (87) 158/58 (91) Pulse Ox 90 90 O2 Delivery Vapotherm Vapotherm Vapotherm O2 Flow Rate 25.00 25.00 25.00 45.00 50.00 50.00 10/10/19 10/10/19 10/10/19 10/10/19 02:00 03:00 03:02 04:00 Pulse 101 103 121 Resp 15 16 15 B/P (MAP) 160/59 (92) 164/61 (95) 159/62 (94) Pulse Ox 91 92 91 90 O2 Delivery Vapotherm Vapotherm Vapotherm Vapotherm O2 Flow Rate 25.00 25.00 25.00 25.00 50.00 50.00 50.00 FiO2 50 10/10/19 10/10/19 10/10/19 10/10/19 04:00 04:00 05:00 06:00 Temp 36.9 Pulse 114 120 Resp 15 17 B/P (MAP) 160/59 (92) 165/64 (97) Pulse Ox 91 91 O2 Delivery Vapotherm Vapotherm Vapotherm O2 Flow Rate 25.00 25.00 50.00 50.00 FiO2 40 10/10/19 10/10/19 10/10/19 10/10/19 07:00 07:00 07:20 07:25 Temp 36.8 Pulse 116 105 105 Resp 16 42 B/P (MAP) 164/61 (95) Pulse Ox 89 95 O2 Delivery Vapotherm O2 Flow Rate 30.00 50.00 60.00 10/10/19 10/10/19 10/10/1910/10/20 07:35 07:40 08:00 09:00 Pulse 110 107 Resp 22 25 B/P (MAP) 164/61 (95) 192/86 (121) Pulse Ox 98 95 O2 Delivery NIV Bilevel NIV Bilevel NIV Bilevel NIV Bilevel O2 Flow Rate 100.00 70.00 70.00 70.00 10/10/19 10:00 Pulse 91 Resp 14 B/P (MAP) 176/78 (110) Pulse Ox 97 O2 Delivery NIV Bilevel O2 Flow Rate 70.00 10/10/19 00:00 Intake Total 810 ml Output Total 1100 ml Balance -290 ml Weight (Pounds): 218 Weight (Ounces): 0.0 Weight (Calculated Kilograms): 98.727953 Constitutional: AAO x 3, well-developed, well-nourished Respiratory: No accessory muscle use, No respiratory distress; chest expansion is symmetric, other (scattered rhonchi and coarse crackles over large airways, fair to good air entry that is diminished at the bases) Cardiovascular: regular rate-rhythm; No JVD; S1 and S2, systolic murmur (soft MARIE at card base) Gastrointestional: No tender, No soft, No guarding, No rebound; audible bowel sounds Extremities: other (mod bilat LE swelling); No clubbing, No cyanosis Neurologic/Psychiatric: oriented x 3, other (moves all limbs equally) Skin: warm/dry; No rash on exposed areas, No ulcerations on exposed areas Results/Procedures: Labs Laboratory Tests 10/09/19 11:26: Glucometer 153H 10/09/19 17:24: Glucometer 157H 10/09/19 20:21: Glucometer 166H 10/09/19 23:03: Glucometer 170H 10/10/19 03:30: White Blood Count 5.7, Red Blood Count 2.80L, Hemoglobin 8.7L, Hematocrit 28L, Mean Corpuscular Volume 99, Mean Corpuscular Hemoglobin 31, Mean Corpuscular Hemoglobin Concent 31L, Red Cell Distribution Width 15.1H, Platelet Count 294, Mean Platelet Volume 8.6, Neutrophils (%) (Auto) 87H, Lymphocytes (%) (Auto) 8L, Monocytes (%) (Auto) 4, Eosinophils (%) (Auto) 0, Basophils (%) (Auto) 0, Neutrophils # (Auto) 4.9, Lymphocytes # (Auto) 0.5L, Monocytes # (Auto) 0.3, Eosinophils # (Auto) 0.0, Basophils # (Auto) 0.0, Sodium Level 145, Potassium Level 3.5L, Chloride Level 101, Carbon Dioxide Level 29, Anion Gap 15H, Blood Urea Nitrogen 30H, Creatinine 0.80, Estimat Glomerular Filtration Rate > 60, BUN/Creatinine Ratio 38, Glucose Level 148H, Calcium Level 9.3, Phosphorus Level 2.9, Magnesium Level 2.0, B-Type Natriuretic Peptide 873.5H 10/10/19 06:30: Blood Gas Puncture Site RIGHT RADIAL ARTLINE, Blood Gas Patient Temperature 36.8, Arterial Blood pH 7.51H, Arterial Blood Partial Pressure CO2 42, Arterial Blood Partial Pressure O2 68L, Arterial Blood HCO3 33H, Arterial Blood Total CO2 34.6H, Arterial Blood Oxygen Saturation 94, Arterial Blood Base Excess 9.6H, Jame Test POSITIVE, Blood Gas Ventilator Setting NO, Blood Gas Inspired Oxygen 50% 10/10/19 07:25: Blood Gas Puncture Site RIGHT RADIAL ART DANIEL, Blood Gas Patient Temperature 36, Arterial Blood pH 7.53H, Arterial Blood Partial Pressure CO2 40, Arterial Blood Partial Pressure O2 51L, Arterial Blood HCO3 34H, Arterial Blood Total CO2 34.9H , Arterial Blood Oxygen Saturation 85L, Arterial Blood Base Excess 9.9H, Jame Test N/A, Blood Gas Ventilator Setting NO, Blood Gas Inspired Oxygen 40 L 10/10/19 08:48: Blood Gas Puncture Site UNK, Blood Gas Patient Temperature 36.3, Arterial Blood pH 7.51H, Arterial Blood Partial Pressure CO2 42, Arterial Blood Partial Press ure O2 74L, Arterial Blood HCO3 34H, Arterial Blood Total CO2 35.1H, Arterial Blood Oxygen Saturation 96, Arterial Blood Base Excess 9.9H, Jame Test UNK, Blood Gas Ventilator Setting YES, Blood Gas Inspired Oxygen 50% FLOW RATE Microbiology 10/08/19 Gram Stain, Resulted Pending 10/08/19 Bronchial Culture - Preliminary, Resulted 10/08/19 Fungal Culture 1 - Preliminary, Resulted 10/07/19 C. difficile GDH Antigen & Toxins - Final, Resulted 10/07/19 Stool Culture - Preliminary, Resulted Presumptive Usual Martha Culture In Progress 09/26/19 Blood Culture - Final, Complete No growth Laboratory Tests 10/08/19 12:45 10/09/19 03:28 10/10/19 03:30 A/P: Assessment: Acute resp failure, likely due to COPD exacerbated by aspiration pneumonia Acute renal failure, likely ATN due to hypotension due to sepsis Uncontrolled hypertension PAF/flutter, currently NSR Elevated troponin - likely type 2 LA d/t hypoxia Card cath of 09/07/18: minimal CAD, LVEF 70-75%, elevated LVEDP Echo of 09/20/19: LVEF 50-55%, RVSP 35 mmHg H/o opiate addiction ETOH abuse Chronic tobacco use Fam h/o early CAD Hyperlipidemia Borderline DM II (fasting blood glucose on 09/07/18) Carotid u/s on 01/05/19: no significant dz Plan: * I interviewed and examined her and reviewed her hosp course * Exhibiting hypertension and sinus tach: increase beta-sheba * Replenish lytes * Monitor labs * Prognosis remains guarded JESS CONLEY MD FACP FAC CCDS Oct 10, 2019 10:38
--- NOTE | 2019-10-10 10:42 | Physical Therapy Daily Note ---
PT Daily Note-Current Subjective Patient is currently on BiPap. Agrees to PT. Mother present. Pain Numeric Pain Scale: 5-Moderate Pain Location: Right, Left Location Body Site: Face Pain Description: Ache Comment: FLACC Mental Status Patient Orientation: Listless Attachments: Oxygen (BiPap), Osorio Catheter, IV Transfers SCALE: Activities may be completed with or without assistive devices. 6-Hxqyghzyrq-wpufiap completes the activity by him/herself with no assistance from a helper. 5-Set-up or Clean-up Assistance-helper sets up or cleans up; patient completes activity. [place] assists only prior to or following the activity. 4-Supervision or Touching Assistance-helper provides verbal cues and/or touching/steadying and/or contact guard assistance as patient completes activity. Assistance may be provided throughout the activity or intermittently. 3-Partial/Moderate Assistance-helper does LESS THAN HALF the effort. [place] lifts, holds or supports trunk or limbs, but provides less than half the effort. 2-Substantial/Maximal Assistance-helper does MORE THAN HALF the effort. [place] lifts or holds trunk or limbs and provides more than half the effort. 7-Wzfjjhdcz-qtcnjr does ALL the effort. Patient does none of the effort to complete the activity. Or, the assistance of 2 or more helpers is required for the patient to complete the activity. If activity was not attempted, code reason: 7-Patient Refused. 9-Not Applicable-not attempted and the patient did not perform the activity before the current illness, exacerbation or injury. 10-Not Attempted due to Environmental Limitations-(lack of equipment, weather restraints, etc.). 88-Not Attempted due to Medical Conditions or Safety Concerns. Weight Bearing Right Lower Extremity: Right Weight Bearing/Tolerated Left Lower Extremity: Left Weight Bearing/Tolerated Exercises Supine Ex: Ankle pumps, Heel Slides, Straight leg raise, Hip abd/add Supine Reps: 15 (2 sets PROM) Assessment Patient tolerates minimal activity due to severe weakness due to prolonged intubation x 3 weeks. PT to increase activity as tolerated by patient. PT [employer] Goals Prison Goals PT [employer] Goals Time Frame: Oct 12, 2019 Roll Left & Right (QC): 2 Sit to Lying (QC): 2 Lying-Sitting on Side/Bed(QC): 2 PT Plan Problem List Problem List: Activity Tolerance, Functional Strength, Safety, Transfer, Bed Mobility Treatment/Plan Treatment Plan: Continue Plan of Care Treatment Plan: Bed Mobility, Concurrent Therapy, Education, Functional Activity Lyn, Functional Strength, Gait, Safety, Therapeutic Exercise, Transf ers Treatment Duration: Oct 12, 2019 Frequency: 6 times per week Estimated Hrs Per Day: .25 hour per day Patient and/or Family Agrees t: Yes Time/GCodes Time In: 858 Time Out: 907 Total Billed Treatment Time: 9 Total Billed Treatment 1 visit EX 9 min MERVIN PETERSON PT Oct 10, 2019 10:42
--- NOTE | 2019-10-10 10:50 | NUR ---
Pastoral care visit.
--- NOTE | 2019-10-10 14:37 | Occ Therapy Progress Note ---
Therapy Progress Note New order received, chart reviewed. Attempted to see pt. twice this date. At 1030 pt. had multiple family members in room. Came back at 1405 and pt. being assessed and treated by 3 nurses. Will attempt back later in p.m. , , visit 1030, 1405 YURI JOHNSON OT Oct 10, 2019 14:37
--- NOTE | 2019-10-10 14:52 | Progress Note - Hospitalist ---
Subjective HPI/CC On Admission Date Seen by Provider: Oct 10, 2019 Time Seen by Provider: 07:10 Shortness of breath Subjective/Events-last exam She has been extubated this morning. She denies any shortness of breath. She denies any pain. She is still a bit groggy. She has no other complaints or concerns. Objective Exam Vital Signs Vital Signs Date Time Temp Pulse Resp B/P (MAP) Pulse Ox O2 Delivery O2 Flow Rate FiO2 10/10/19 14:00 86 21 179/83 (115) 98 NIV Bilevel 70.00 10/10/19 12:00 35.9 10/10/19 12:00 50 Capillary Refill : Less Than 3 Seconds General Appearance: No Apparent Distress, WD/WN, Obese HEENT: PERRL/EOMI, Pharynx Normal Neck: Normal Inspection, Supple Respiratory: No Accessory Muscle Use, No Respiratory Distress, Decreased Breath Sounds (Right-sided) Cardiovascular: No Murmur, Tachycardia (Regular rhythm) Gastrointestinal: Normal Bowel Sounds, Non Tender, Soft Extremity: Normal Inspection, Non Tender, Pedal Edema Neurologic/Psychiatric: Alert, No Motor/Sensory Deficits, Normal Mood/Affect, Disoriented Skin: Normal Color, Warm/Dry Results/Procedures Lab Laboratory Tests 10/10/19 03:30 Patient resulted labs reviewed. Imaging: Reviewed Imaging Report Assessment/Plan Assessment and Plan Assess & Plan/Chief Complaint ARDS Acute respiratory failure with hypoxia COPD with acute exacerbation - Reintubated 1 due to lethargy and hypoxia - Extubated this morning - Pulm consulted, appreciate recs - s/p bronch 10/08 that showed mucus plugging- sent for cultures - Continue Bumex - Continue Merrem - Continue steroids Indeterminant C Diff - Continue oral vanc - Await confirmatory testing AFIB/Flutter with RVR HTN - Continue Lovenox, pharmacy dosing for renal function - Metoprolol, Vasotec - Cardiology consulted, appreciate recs Seizure like activity - Continue Keppra RLE DVT - Lovenox Steroid-induced hyperglycemia - Continue Levemir - SSI Debility - PT/OT Alcohol abuse Morbid obesity - Clinically significant, no acute management needs Critical Care Critically Ill Patient Diagnosis/Problems Diagnosis/Problems (1) ARDS (adult respiratory distress syndrome) Status: Acute (2) Poor prognosis Status: Acute Clinical Quality Measures DVT/VTE Risk/Contraindication: Risk Factor Score Per Nursin RFS Level Per Nursing on Admit: 4+=Very High ACE DIAMOND MD Oct 10, 2019 14:52
--- NOTE | 2019-10-10 15:11 | Occupational Therapy Eval ---
OT Evaluation-General/PLF Medical Diagnosis Admission Date Sep 19, 2019 at 19:36 Medical Diagnosis: Acute respiratory failure with hypoxia Onset Date: Sep 19, 2019 Therapy Diagnosis Therapy Diagnosis: impaired ADLs/weakness Height/Weight Height (Feet): 5 Height (Inches): 5.00 Weight (Pounds): 218 Weight (Ounces): 0.0 Precautions Precautions/Isolations: Aspiration Safety Interventions: None Referral Physician: Nav Medical History Pertinent Medical History: GERD, HTN Additional Medical History Bipolar, depression, COPD Current History Pt presented to the hospital with AMS, she had respiratory failure and was intubated. She was extubated on 10/04/19 and then had therapy services. Pt had a decline in medical function and was reintubated on 10/07/2019, extubated yesterday. ADL-Prior Level of Function SCALE: Activities may be completed with or without assistive devices. 3-Rfwmxwrfnu-tgjlvhq completes the activity by him/herself with no assistance from a helper. 5-Set-up or Clean-up Assistance-helper sets up or cleans up; patient completes activity. [place] assists only prior to or following the activity. 4-Supervision or Touching Assistance-helper provides verbal cues and/or touching/steadying and/or contact guard assistance as patient completes activity. Assistance may be provided throughout the activity or intermittently. 3-Partial/Moderate Assistance-helper does LESS THAN HALF the effort. [place] lifts, holds or supports trunk or limbs, but provides less than half the effort. 2-Substantial/Maximal Assistance-helper does MORE THAN HALF the effort. [place] lifts or holds trunk or limbs and provides more than half the effort. 7-Qhxziuaib-izvjnp does ALL the effort. Patient does none of the effort to complete the activity. Or, the assistance of 2 or more helpers is required for the patient to complete the activity. If activity was not attempted, code reason: 7-Patient Refused. 9-Not Applicable-not attempted and the patient did not perform the activity before the current illness, exacerbation or injury. 10-Not Attempted due to Environmental Limitations-(lack of equipment, weather restraints, etc.). 88-Not Attempted due to Medical Conditions or Safety Concerns. ADL PLOF Comments Pt was unable to provide information about PLOF on this date. PLOF is currently unknown Self Care: Unknown Functional Cognition: Unknown OT Current Status Subjective Pt laying in bed with nursing and family present. Pt agreeable to OT tx. Mental Status/Objective Attachments: Osorio Catheter, IV, Oxygen (BiPAP) Current Hand Dominance: Left Upper Extremity ROM impaired AROM, she tolerated PROM on this date with slight grimacing towards end ROM Upper Extremity Coordination impaired bilaterally Upper Extremity Sensation unable to assess on this date, further testing required Upper Extremity Strength impaired strength Edema: Pt has edema in bilateral UE ADL-Treatment ADL-Current Pt currently requires total assistance with ADLs due to weakness and edema BUEs. Other Treatments Pt laying in bed, pt unable to provide information about PLOF and family did not provide any information. OT then performed PROM x10 reps at BUE wrists and elbows, pt grimaced towards end ROM. OT educated pt on the benefits of OT and the purpose of ROM. Post OT session, pt laying in bed, call light in reach and all needs met with famiily present. OT Fdc Goals Unit Clerk Goals Time Frame: Oct 28, 2019 Eating (QC): 3 Oral Hygiene (QC): 3 Shower/Bathe Self (QC): 2 Upper Body Dressing (QC): 2 Additional Goals: 1-Demonstrate ADL Tasks, 2-Verbalize Understanding, 3- ImproveStrength/Lyn 1=Demonstrate adherence to instructed precautions during ADL tasks. 2=Patient will verbalize/demonstrate understanding of assistive devices/modifications for ADL. 3=Patient will improve strength/tolerance for activity to enable patient to perform ADL's. OT Education/Plan Problem List/Assessment Assessment: Decreased Activ Tolerance, Decreased UE Strength, Dependent Transfers, Impaired Bed Mobility, Impaired Coordination, Impaired Funct Balance, Impaired I ADL's, Impaired Self-Care Skills, Restricted Funct UE ROM Pt currently demonstrates impaired strength, mobility, and ADL functioning. Pt to benefit from skilled OT intervention for ADL training, strengthening, and mobility to increase level of independence and allow safe discharge plan. Discharge Recommendations Plan/Recommendations: Continue POC Treatment Plan/Plan of Care Treatment,Training & Education: Yes Patient would benefit from OT for education, treatment and training to promote independence in ADL's, mobility, safety and/or upper extremity function for ADL's. Plan of Care: ADL Retraining, Functional Mobility, UE Funct Exercise/Act Treatment Duration: Oct 28, 2019 Frequency: 5 times per week Estimated Hrs Per Day: .25 hour per day Rehab Potential: Guarded Time/GCodes Start Time: 14:40 Stop Time: 14:50 Total Time Billed (hr/min): 10 Billed Treatment Time 1, REECE GOFF OT Oct 10, 2019 15:11
[2019-10-10] MEDS: ONDANSETRON 4 MG/2 ML (SDV) Z0FRAN IVP PRN (19:14)
[2019-10-10] MEDS: meTOprolol TARTRATE 50 MG (LOPRESSOR) TAB PO SCH (20:03)
[2019-10-10] MEDS: morphine INJ 4 MG/ML 1 ML (VIAL/SYRINGE) IVP PRN (20:04)
[2019-10-10] MEDS: ALPRAZolam 0.5 MG (XANAX) TAB PO PRN (22:01)
[2019-10-11] VITALS (23 sets, daily range): BP systolic 145–197; BP diastolic 57–104
[2019-10-11] MEDS: methylPREDNISolone 40 MG/ML (Solu-MEDROL) VIAL IV SCH ×4 (00:15→17:36)
[2019-10-11] MEDS: DEXMEDETOMIDINE 1,000 MCG/NS 250 ML IV SCH ×2 (00:15)
[2019-10-11] MEDS: inSUlin ASPART (NovoLOG) 1 UNIT/0.01 ML (CHARGE PER UNIT) SC SCH ×5 (00:18→20:27)
[2019-10-11] MEDS: RT-ALBUTEROL/IPRATROPIUM 3 ML (DUONEB) VIAL INH SCH ×6 (01:55→21:35)
[2019-10-11] MEDS: aCETylcysteine 20% (MUCOMYST) 30ML SOLN VIAL INH SCH ×6 (01:55→21:35)
[2019-10-11] MEDS: VANCOMYCIN 50 MG/ML ORAL SOLN 150 ML PO SCH ×2 (03:02→08:10)
[2019-10-11 03:40] LABS: BASOPHILS % (AUTO) 0 % (0-10); EOSINOPHILS % (AUTO) 0 % (0-10); HEMATOCRIT 26 % (35-52); HEMOGLOBIN 8.1 G/DL (11.5-16.0); LYMPHOCYTES # (AUTO) 0.4 X 10^3 (1.0-4.0); LYMPHOCYTES % (AUTO) 9 % (12-44); MEAN CORPUSCULAR HEMOGLOBIN 31 PG (25-34); MEAN CORPUSCULAR HGB CONC 31 G/DL (32-36); MEAN CORPUSCULAR VOLUME 100 FL (80-99); MONOCYTES # (AUTO) 0.3 X 10^3 (0.0-1.0); MONOCYTES % (AUTO) 6 % (0-12); NEUTROPHILS # (AUTO) 3.6 X 10^3 (1.8-7.8); NEUTROPHILS % (AUTO) 84 % (42-75); PLATELET COUNT 232 10^3/uL (130-400); RED CELL DISTRIBUTION WIDTH 14.5 % (10.0-14.5); WHITE BLOOD COUNT 4.3 10^3/uL (4.3-11.0)
[2019-10-11 03:55] LABS: ABG BASE EXCESS 12.4 MMOL/L (-2.5-2.5); ABG OXYGEN SATURATION 94 % (94-100); ABG PCO2 51 MMHG (35-45); ABG PH 7.47 (7.37-7.43); ABG PO2 70 MMHG (79-93); ABG TCO2 38.7 MMOL/L (21.0-31.0)
[2019-10-11 03:57] LABS: ALLENS TEST POSITIVE; INSPIRED O2 30%; VENTILATOR NO
[2019-10-11 03:59] LABS: BUN/CREATININE RATIO 45; CALCIUM 9.4 MG/DL (8.5-10.1); CARBON DIOXIDE 32 MMOL/L (21-32); CHLORIDE 101 MMOL/L (98-107); CREATININE SERUM 0.82 MG/DL (0.60-1.30); GFR ESTIMATED > 60; GLUCOSE 172 MG/DL (70-105); PHOSPHORUS 3.8 MG/DL (2.3-4.7); POTASSIUM 4.5 MMOL/L (3.6-5.0); SODIUM 143 MMOL/L (135-145)
[2019-10-11] MEDS: MEROPENEM 500 MG/SWFI 10 ML IV PUSH IV SCH ×8 (04:03→22:16)
--- NOTE | 2019-10-11 05:30 | Pulmonary Progress Note ---
Subjective Time Seen by a Provider: 05:29 Subjective/Events-last exam Pt is doing better today. Family at bedside. Sepsis Event Evaluation Height, Weight, BMI Height: 5'5.00" Weight: 218lbs. 0.0oz. 98.067051wo; 34.07 BMI Method:Stated Exam Exam Vital Signs Date Time Temp Pulse Resp B/P (MAP) Pulse Ox O2 Delivery O2 Flow Rate FiO2 10/11/19 04:00 36.2 10/11/19 04:00 NIV Bilevel 40 10/11/19 03:00 55 13 153/61 (91) 95 NIV Bilevel 30.00 10/11/19 02:02 NIV Bilevel 30.00 10/11/19 02:00 53 12 156/63 (94) 95 NIV Bilevel 35.00 10/11/19 01:55 51 22 96 30.00 10/11/19 01:00 56 13 152/59 (90) 96 NIV Bilevel 35.00 10/11/19 00:49 62 10/11/19 00:00 56 14 145/57 (86) 96 NIV Bilevel 35.00 10/11/19 00:00 NIV Bilevel 40 10/10/19 23:59 36.0 10/10/19 23:00 58 12 150/59 (89) 95 NIV Bilevel 35.00 10/10/19 22:14 NIV Bilevel 35.00 10/10/19 22:14 58 15 99 35.00 10/10/19 22:00 67 17 167/67 (100) 100 Vapotherm 35.00 50.00 10/10/19 21:00 79 18 161/67 (98) 96 Vapotherm 35.00 50.00 10/10/19 20:00 85 16 151/61 (91) 95 Vapotherm 35.00 50.00 10/10/19 20:00 NIV Bilevel 40 10/10/19 20:00 36.6 10/10/19 19:13 Vapotherm 35.00 50.00 10/10/19 19:00 80 14 163/63 (96) 94 NIV Bilevel 50.00 10/10/19 18:58 96 Vapotherm 40.00 50 10/10/19 18:38 84 10/10/19 18:00 91 22 155/63 (93) 95 NIV Bilevel 50.00 10/10/19 17:00 80 17 154/61 (92) 96 NIV Bilevel 50.00 10/10/19 16:00 74 20 151/60 (90) 100 NIV Bilevel 50.00 10/10/19 16:00 35.9 10/10/19 16:00 NIV Bilevel 40 10/10/19 15:30 NIV Bilevel 50.00 10/10/19 15:00 74 20 163/66 (98) 100 NIV Bilevel 70.00 10/10/19 14:57 78 18 98 50.00 10/10/19 14:00 86 21 179/83 (115) 98 NIV Bilevel 70.00 10/10/19 13:00 93 21 177/78 (111) 96 NIV Bilevel 70.00 10/10/19 12:28 100 10/10/19 12:00 35.9 10/10/19 12:00 90 27 162/71 (101) 99 NIV Bilevel 70.00 10/10/19 12:00 NIV Bilevel 50 10/10/19 11:00 96 22 183/81 (115) 100 NIV Bilevel 70.00 10/10/19 10:45 95 23 100 50.00 10/10/19 10:00 91 14 176/78 (110) 97 NIV Bilevel 70.00 10/10/19 09:00 107 25 192/86 (121) 95 NIV Bilevel 70.00 10/10/19 08:00 NIV Bilevel 50 10/10/19 08:00 110 22 164/61 (95) 98 NIV Bilevel 70.00 10/10/19 07:40 NIV Bilevel 70.00 10/10/19 07:35 NIV Bilevel 100.00 10/10/19 07:25 36.8 10/10/19 07:20 105 42 95 50.00 10/10/19 07:00 105 16 164/61 (95) 89 Vapotherm 30.00 60.00 10/10/19 07:00 116 10/10/19 06:00 120 17 165/64 (97) 91 Vapotherm 25.00 50.00 I & O 10/11/19 07:00 Intake Total 1805 ml Output Total 4200 ml Balance -2395 ml Height & Weight Height: 5'5.00" Weight: 218lbs. 0.0oz. 98.905716xw; 34.07 BMI Method:Stated General Appearance: No Apparent Distress, WD/WN, Obese HEENT: PERRL/EOMI, Pharynx Normal Neck: Normal Inspection, Supple Respiratory: No Accessory Muscle Use, No Respiratory Distress, Decreased Breath Sounds (Right-sided) Cardiovascular: No Murmur, Tachycardia (Regular rhythm) Capillary Refill: Less Than 3 Seconds Gastrointestinal: soft, no organomegaly, no pulsatile mass Extremity: Normal Inspection, Non Tender, Pedal Edema Neurologic/Psychiatric: Alert, No Motor/Sensory Deficits, Normal Mood/Affect, Disoriented Skin: Normal Color, Warm/Dry Lymphatic: No Adenopathy Results Lab Laboratory Tests 10/10/19 03:30 10/11/19 03:30 Assessment/Plan Assessment/Plan Acute respiratory failure with hypoxia - reintubated probably secondary to mucous plugging vs aspiration. -s/p bronchoscopy -Currently on BiPAP will trial to NC. Continue BiPAP QHS -Solumedrol to 40 Q 6 -Continue Bumex -CT of chest reviewed Seizure prior to reintubation -Raeann. Pseudomonus PNA -Continue Merrem changed from Zosyn 10/07 -Repeat cultures pending COPDAE -Solumedrol -SVNS q 4 Afib/flutter RLE DVT -Lovenox Alcohol abuse Morbid obesity JACLYN SAVAGE DO Oct 11, 2019 05:30
[2019-10-11] MEDS: POTASSIUM CL 10MEQ/50ML IVPB 50 ML IV SCH (05:52)
[2019-10-11] MEDS: MAGNESIUM 1 GM/100 ML IVPB 100 ML IV SCH (05:53)
[2019-10-11] MEDS: KCL 20 MEQ TAB (K-DUR) PO SCH (05:53)
[2019-10-11] MEDS: guaiFENesin SYRUP 100 MG/5 ML 10 ML (ROBITUSSIN SF) PO SCH ×4 (06:02→22:38)
[2019-10-11] MEDS: ENOXAPARIN 100 MG/1 ML (LOVENOX) SYR SC SCH (06:03)
--- NOTE | 2019-10-11 07:55 | Diagnostic Imaging Report ---
CHEST 1 VIEW, AP/PA ONLY Indication: Respiratory failure, pneumonia Comparison: 10/10/2019 Findings: Stable right IJ central venous catheter. Unchanged small bilateral pleural effusions and associated basilar pulmonary opacities. Stable cardiomediastinal silhouette. No pneumothorax. Impression: 1. Stable support devices. 2. No adverse development or interval improvement. Dictated by: Dictated on workstation # [id number]
[2019-10-11] MEDS: FAMOTIDINE 20MG/2ML IV (PEPCID) IVP SCH (08:09)
[2019-10-11] MEDS: meTOprolol TARTRATE 50 MG (LOPRESSOR) TAB PO SCH ×2 (08:09→20:27)
[2019-10-11] MEDS: LEVETIRACETAM INJECTION 500 MG in NS (IVPB) 100 ML IV SCH (08:09)
[2019-10-11] MEDS: BUMETANIDE 1 MG/4 ML (BUMEX) VIAL IV SCH ×2 (08:09→20:26)
[2019-10-11] MEDS: lisINopril 10 MG (PRINIVIL) TABLET PO SCH (08:09)
[2019-10-11] MEDS: KCL 20 MEQ POWDER FOR ORAL SOLUTION PO SCH ×2 (08:10→20:27)
[2019-10-11] MEDS: AMIODARONE 200 MG (CORDARONE) TAB NG SCH (08:10)
--- NOTE | 2019-10-11 08:49 | Occupational Ther Daily Note ---
OT Current Status-Daily Note Subjective Nursing okayed pt to be seen by OT this date. Pt laying in bed at start of session with daughter present. Pt agreeable to OT tx, when given the option of arm exercises or a sponge bath pt chose arm exercises. ADL-Treatment Therapy Code Descriptions/Definitions Functional [place] Measure: 0=Not Assessed/NA 4=Minimal Assistance 1=Total Assistance 5=Supervision or Setup 2=Maximal Assistance 6=Modified [place] 3=Moderate Assistance 7=Complete IndependenceSCALE: Activities may be completed with or without assistive devices. 8-Lhdxlxljmq-wuaypur completes the activity by him/herself with no assistance from a helper. 5-Set-up or Clean-up Assistance-helper sets up or cleans up; patient completes activity. [place] assists only prior to or following the activity. 4-Supervision or Touching Assistance-helper provides verbal cues and/or touching/steadying and/or contact guard assistance as patient completes activity. Assistance may be provided throughout the activity or intermittently. 3-Partial/Moderate Assistance-helper does LESS THAN HALF the effort. [place] lifts, holds or supports trunk or limbs, but provides less than half the effort. 2-Substantial/Maximal Assistance-helper does MORE THAN HALF the effort. [place] lifts or holds trunk or limbs and provides more than half the effort. 5-Pyqrqlynb-ozgmfe does ALL the effort. Patient does none of the effort to complete the activity. Or, the assistance of 2 or more helpers is required for the patient to complete the activity. If activity was not attempted, code reason: 7-Patient Refused. 9-Not Applicable-not attempted and the patient did not perform the activity before the current illness, exacerbation or injury. 10-Not Attempted due to Environmental Limitations-(lack of equipment, weather restraints, etc.). 88-Not Attempted due to Medical Conditions or Safety Concerns. Eating (QC): 1 (Per pt report, she is unable to lift her arms requiring total assist for eating. Her daughter helped her eat applesauce and oatmeal this AM.) Other Treatment Pt laying in bed, talking with daughter. Pt reports she lives at home with 2 of her children. Pt told OT that her daughter helped her eat breakfast this morning, pt unable to do task herself due to weakness BUEs. Pt agreable to BUE exercises, in order to increase BUE ROM and decrease edema, OT performed x10 reps each PROM finger flexion/extension, wrist flexion/extension, and elbow flexion extension. Pt demo'd ability to shrug shoulders, OT educated pt to complete reps throughout the day in order to increase muscle strength. Post OT session, pt laying in bed with call light in reach and needs met. Education OT Patient Education: Correct positioning, Energy conservation, Exercise program, Progress toward Goal/Update tx plan, Purpose of tx/functional activities Teaching Recipient: Patient Teaching Methods: Discussion Response to Teaching: Verbalize Understanding OT Nursing Home Goals Party Planner Goals Time Frame: Oct 28, 2019 Eating (QC): 3 Oral Hygiene (QC): 3 Shower/Bathe Self (QC): 2 Upper Body Dressing (QC): 2 Additional Goals: 1-Demonstrate ADL Tasks, 2-Verbalize Understanding, 3- ImproveStrength/Lyn 1=Demonstrate adherence to instructed precautions during ADL tasks. 2=Patient will verbalize/demonstrate understanding of assistive devices/modifications for ADL. 3=Patient will improve strength/tolerance for activity to enable patient to perform ADL's. OT Education/Plan Problem List/Assessment Assessment: Decreased Activ Tolerance, Decreased UE Strength, Edema, Impaired I ADL's, Impaired Self-Care Skills, Restricted Funct UE ROM Pt currently demonstrates impaired strength, mobility, and ADL functioning. Pt to benefit from skilled OT intervention for ADL training, strengthening, and mobility to increase level of independence and allow safe discharge plan. Discharge Recommendations Plan/Recommendations: Continue POC Treatment Plan/Plan of Care Treatment,Training & Education: Yes Patient would benefit from OT for education, treatment and training to promote independence in ADL's, mobility, safety and/or upper extremity function for ADL's. Plan of Care: ADL Retraining, Functional Mobility, UE Funct Exercise/Act Treatment Duration: Oct 28, 2019 Frequency: 5 times per week Estimated Hrs Per Day: .25 hour per day Rehab Potential: Guarded Time/GCodes Start Time: 08:20 Stop Time: 08:38 Total Time Billed (hr/min): 18 Billed Treatment Time 1, ADL REECE ROSA OT Oct 11, 2019 08:49
--- NOTE | 2019-10-11 09:27 | Progress Note - Cardiology ---
Cardiology SOAP Progress Note Objective: I&O/Vital Signs 10/11/19 10/11/19 10/11/19 10/11/19 01:55 02:00 02:02 03:00 Pulse 51 53 55 Resp 22 12 13 B/P (MAP) 156/63 (94) 153/61 (91) Pulse Ox 96 95 95 O2 Delivery NIV Bilevel NIV Bilevel NIV Bilevel O2 Flow Rate 30.00 35.00 30.00 30.00 10/11/19 10/11/19 10/11/19 10/11/19 04:00 04:00 04:00 05:00 Temp 36.2 Pulse 56 49 Resp 12 13 B/P (MAP) 152/61 (91) 149/60 (89) Pulse Ox 96 96 O2 Delivery NIV Bilevel NIV Bilevel NIV Bilevel O2 Flow Rate 30.00 30.00 FiO2 40 10/11/19 10/11/19 10/11/19 10/11/19 06:00 07:00 07:00 07:28 Pulse 51 68 61 Resp 18 19 B/P (MAP) 147/58 (87) 161/63 (95) Pulse Ox 94 94 97 O2 Delivery NIV Bilevel NIV Bilevel Nasal Cannula O2 Flow Rate 30.00 30.00 5.00 10/11/19 10/11/19 10/11/19 10/11/19 07:33 08:00 08:00 09:00 Temp 35.6 Pulse 82 98 Resp 16 21 B/P (MAP) 179/75 (109) 172/71 (104) Pulse Ox 93 95 93 O2 Delivery NIV Bilevel NIV Bilevel NIV Bilevel O2 Flow Rate 5.00 30.00 30.00 10/11/19 10/11/19 10/11/19 10/11/19 10:00 11:00 11:07 12:00 Temp 36.5 Pulse 78 77 Resp 23 23 B/P (MAP) 186/88 (120) 179/79 (112) Pulse Ox 97 96 96 O2 Delivery NIV Bilevel NIV Bilevel Nasal Cannula O2 Flow Rate 30.00 30.00 5.00 10/11/19 10/11/19 10/11/19 12:00 12:54 13:00 Pulse 86 77 81 Resp 19 16 B/P (MAP) 197/92 (127) 184/75 (111) Pulse Ox 97 93 O2 Delivery NIV Bilevel NIV Bilevel O2 Flow Rate 30.00 30.00 10/11/19 00:00 Intake Total 1355 ml Output Total 1850 ml Balance -495 ml Weight (Pounds): 218 Weight (Ounces): 0.0 Weight (Calculated Kilograms): 98.732951 Constitutional: AAO x 3, well-developed, well-nourished Respiratory: No accessory muscle use, No respiratory distress; chest expansion is symmetric, other (scattered rhonchi and coarse crackles over large airways, fair to good air entry that is diminished at the bases) Cardiovascular: regular rate-rhythm; No JVD; S1 and S2, systolic murmur (soft MARIE at card base) Gastrointestional: No tender, No soft, No guarding, No rebound; audible bowel sounds Extremities: other (mod bilat LE swelling); No clubbing, No cyanosis Neurologic/Psychiatric: oriented x 3, other (moves all limbs equally) Skin: warm/dry; No rash on exposed areas, No ulcerations on exposed areas Results/Procedures: Labs Laboratory Tests 10/10/19 17:27: Glucometer 200H 10/10/19 20:30: Glucometer 230H 10/10/19 22:52: Glucometer 230H 10/11/19 03:30: White Blood Count 4.3, Red Blood Count 2.59L, Hemoglobin 8.1L, Hematocrit 26L, Mean Corpuscular Volume 100H, Mean Corpuscular Hemoglobin 31, Mean Corpuscular Hemoglobin Concent 31L, Red Cell Distribution Width 14.5, Platelet Count 232, Mean Platelet Volume 9.0, Neutrophils (%) (Auto) 84H, Lymphocytes (%) (Auto) 9L, Monocytes (%) (Auto) 6, Eosinophils (%) (Auto) 0, Basophils (%) (Auto) 0, Neutr ophils # (Auto) 3.6, Lymphocytes # (Auto) 0.4L, Monocytes # (Auto) 0.3, Eosinophils # (Auto) 0.0, Basophils # (Auto) 0.0, Sodium Level 143, Potassium Level 4.5, Chloride Level 101, Carbon Dioxide Level 32, Anion Gap 10, Blood Urea Nitrogen 37H, Creatinine 0.82, Estimat Glomerular Filtration Rate > 60, BUN/Creatinine Ratio 45, Glucose Level 172H, Calcium Level 9.4, Phosphorus Level 3.8, Magnesium Level 2.0 10/11/19 03:45: Blood Gas Puncture Site RIGHT RADIAL ARTLINE, Blood Gas Patient Temperature 36.0, Arterial Blood pH 7.47H, Arterial Blood Partial Pressure CO2 51H, Arterial Blood Partial Pressure O2 70L, Arterial Blood HCO3 37H, Arterial Blood Total CO2 38.7H, Arterial Blood Oxygen Saturation 94, Arterial Blood Base Excess 12.4H, Jame Test POSITIVE, Blood Gas Ventilator Setting NO, Blood Gas Inspired Oxygen 30% 10/11/19 11:04: Glucometer 183H Microbiology 10/08/19 Gram Stain - Final, Resulted 10/08/19 Bronchial Culture - Preliminary, Resulted Probable Pseudomonas 10/08/19 Fungal Culture 1 - Preliminary, Resulted 10/07/19 C. difficile DNA Amplification - Final, Complete 09/26/19 Blood Culture - Final, Complete No growth Procedures NAME: EZKE MEDELLIN [facility] REC#: [id number] PT STATUS: ADM IN : 1965 PHYSICIAN: JACLYN SAVAGE DO ADMIT DATE: 09/19/19/ICU Signed Date of Exam:10/11/19 CHEST 1 VIEW, AP/PA ONLY CHEST 1 VIEW, AP/PA ONLY Indication: Respiratory failure, pneumonia Comparison: 10/10/2019 Findings: Stable right IJ central venous catheter. Unchanged small bilateral pleural effusions and associated basilar pulmonary opacities. Stable cardiomediastinal silhouette. No pneumothorax. Impression: 1. Stable support devices. 2. No adverse development or interval improvement. Dictated by: Dictated on workstation # [id number] Dict: 10/11/19 0745 Trans: 10/11/1903 [facility] [id number] Interpreted by: CHIKI GARCIA MD Electronically signed by: CHIKI GARCIA MD 10/11/19 0903 A/P: Assessment: Acute resp failure, likely due to COPD exacerbated by aspiration pneumonia Acute renal failure, likely ATN due to hypotension due to sepsis Uncontrolled hypertension PAF/flutter, currently NSR Elevated troponin - likely type 2 [place] d/t hypoxia Card cath of 09/07/18: minimal CAD, LVEF 70-75%, elevated LVEDP Echo of 09/20/19: LVEF 50-55%, RVSP 35 mmHg H/o opiate addiction ETOH abuse Chronic tobacco use Fam h/o early CAD Hyperlipidemia Borderline DM II (fasting blood glucose on 09/07/18) Carotid u/s on 01/05/19: no significant dz Plan: * BP and HR improved with increased dose of BB * BP not ideal - add Norvasc * Has been on Amiodarone 400mg BID since 09-22-19 - consider decreasing dose to 400mg daily * Replenish lytes * Monitor labs * Prognosis remains guarded DELROY TURNER Oct 11, 2019 09:27
[2019-10-11] MEDS ORDERED: amLODIPine 5 MG (NORVASC) TAB PO ONE (09:45)
--- NOTE | 2019-10-11 10:09 | Physical Therapy Daily Note ---
PT Daily Note-Current Subjective Patient more alert and on vapotherm. Patient is actively participating with all care. Mental Status Patient Orientation: Confused Attachments: SCD's, Oxygen, Osorio Catheter, IV Transfers SCALE: Activities may be completed with or without assistive devices. 1-Cgutjaisyn-edazkip completes the activity by him/herself with no assistance from a helper. 5-Set-up or Clean-up Assistance-helper sets up or cleans up; patient completes activity. [place] assists only prior to or following the activity. 4-Supervision or Touching Assistance-helper provides verbal cues and/or touching/steadying and/or contact guard assistance as patient completes activity. Assistance may be provided throughout the activity or intermittently. 3-Partial/Moderate Assistance-helper does LESS THAN HALF the effort. [place] lifts, holds or supports trunk or limbs, but provides less than half the effort. 2-Substantial/Maximal Assistance-helper does MORE THAN HALF the effort. [place] lifts or holds trunk or limbs and provides more than half the effort. 6-Ewesygnny-gqlltm does ALL the effort. Patient does none of the effort to complete the activity. Or, the assistance of 2 or more helpers is required for the patient to complete the activity. If activity was not attempted, code reason: 7-Patient Refused. 9-Not Applicable-not attempted and the patient did not perform the activity befo re the current illness, exacerbation or injury. 10-Not Attempted due to Environmental Limitations-(lack of equipment, weather re straints, etc.). 88-Not Attempted due to Medical Conditions or Safety Concerns. Roll Left & Right (QC): 1 Sit to Lying (QC): 1 Lying to Sitting/Side of Bed(Q: 1 patient sat EOB x 9 min with mod assist to maintain EOB with patient performing bilateral LE exercises and cervical rotation Weight Bearing Right Lower Extremity: Right Weight Bearing/Tolerated Left Lower Extremity: Left Weight Bearing/Tolerated Exercises Supine Ex: Ankle pumps, Heel Slides Supine Reps: 10 (PROM to AAROM bilaterally) Assessment Patient fatigues with minimal activity, however, is slowly improving with treatment plan. Patient SAO2 maintained >90% with activity on this date. Patient is severely deconditioned. From a PT standpoint, patient may benefit from ARU when able to tolerated intensive therapies. PT Stamp Analyst Goals Stamp Analyst Goals PT Stamp Analyst Goals Time Frame: Oct 12, 2019 Roll Left & Right (QC): 2 Sit to Lying (QC): 2 Lying-Sitting on Side/Bed(QC): 2 PT Plan Treatment/Plan Treatment Plan: Continue Plan of Care Treatment Plan: Bed Mobility, Concurrent Therapy, Education, Functional Activity Lyn, Functional Strength, Gait, Safety, Therapeutic Exercise, Andre sfers Treatment Duration: Oct 12, 2019 Frequency: 6 times per week Estimated Hrs Per Day: .25 hour per day Patient and/or Family Agrees t: Yes Time/GCodes Time In: 855 Time Out: 910 Total Billed Treatment Time: 15 Total Billed Treatment 1 visit FA 15 min MERVIN PETERSON PT Oct 11, 2019 10:09
[2019-10-11] MEDS: ALPRAZolam 0.5 MG (XANAX) TAB PO PRN (11:03)
[2019-10-11] MEDS: morphine INJ 4 MG/ML 1 ML (VIAL/SYRINGE) IVP PRN (11:03)
--- NOTE | 2019-10-11 11:43 | Progress Note - Cardiology ---
Cardiology SOAP Progress Note Subjective: No new symptoms Tires with minimal activity Short of breath with mild activity No cp No palp or syncope Objective: I&O/Vital Signs 10/10/19 10/11/19 10/11/19 10/11/19 23:59 00:00 00:00 00:49 Temp 36.0 Pulse 56 62 Resp 14 B/P (MAP) 145/57 (86) Pulse Ox 96 O2 Delivery NIV Bilevel NIV Bilevel O2 Flow Rate 35.00 FiO2 40 10/11/19 10/11/19 10/11/19 10/11/19 01:00 01:55 02:00 02:02 Pulse 56 51 53 Resp 13 22 12 B/P (MAP) 152/59 (90) 156/63 (94) Pulse Ox 96 96 95 O2 Delivery NIV Bilevel NIV Bilevel NIV Bilevel O2 Flow Rate 35.00 30.00 35.00 30.00 10/11/19 10/11/19 10/11/19 10/11/19 03:00 04:00 04:00 04:00 Temp 36.2 Pulse 55 56 Resp 13 12 B/P (MAP) 153/61 (91) 152/61 (91) Pulse Ox 95 96 O2 Delivery NIV Bilevel NIV Bilevel NIV Bilevel O2 Flow Rate 30.00 30.00 FiO2 40 10/11/19 10/11/19 10/11/19 10/11/19 05:00 06:00 07:00 07:00 Pulse 49 51 68 61 Resp 13 18 19 B/P (MAP) 149/60 (89) 147/58 (87) 161/63 (95) Pulse Ox 96 94 94 O2 Delivery NIV Bilevel NIV Bilevel NIV Bilevel O2 Flow Rate 30.00 30.00 30.00 10/11/19 10/11/19 10/11/19 10/11/19 07:28 07:33 08:00 08:00 Temp 35.6 Pulse 82 Resp 16 B/P (MAP) 179/75 (109) Pulse Ox 97 93 95 O2 Delivery Nasal Cannula NIV Bilevel NIV Bilevel O2 Flow Rate 5.00 5.00 30.00 10/11/19 10/11/19 10/11/19 10/11/19 09:00 10:00 11:00 11:07 Pulse 98 78 77 Resp 21 23 23 B/P (MAP) 172/71 (104) 186/88 (120) 179/79 (112) Pulse Ox 93 97 96 96 O2 Delivery NIV Bilevel NIV Bilevel NIV Bilevel Nasal Cannula O2 Flow Rate 30.00 30.00 30.00 5.00 10/10/19 23:59 Intake Total 1355 ml Output Total 1850 ml Balance -495 ml Weight (Pounds): 218 Weight (Ounces): 0.0 Weight (Calculated Kilograms): 98.453123 Constitutional: AAO x 3, well-developed, well-nourished Respiratory: No accessory muscle use, No respiratory distress; chest expansion is symmetric, other (scattered rhonchi and coarse crackles over large airways, fair to good air entry that is diminished at the bases) Cardiovascular: regular rate-rhythm; No JVD; S1 and S2, systolic murmur (soft MARIE at card base) Gastrointestional: No tender, No soft, No guarding, No rebound; audible bowel sounds Extremities: other (mod bilat LE swelling); No clubbing, No cyanosis Neurologic/Psychiatric: oriented x 3, other (moves all limbs equally) Skin: warm/dry; No rash on exposed areas, No ulcerations on exposed areas Results/Procedures: Labs Laboratory Tests 10/10/19 17:27: Glucometer 200H 10/10/19 20:30: Glucometer 230H 10/10/19 22:52: Glucometer 230H 10/11/19 03:30: White Blood Count 4.3, Red Blood Count 2.59L, Hemoglobin 8.1L, Hematocrit 26L, Mean Corpuscular Volume 100H, Mean Corpuscular Hemoglobin 31, Mean Corpuscular Hemoglobin Concent 31L, Red Cell Distribution Width 14.5, Platelet Count 232, Me an Platelet Volume 9.0, Neutrophils (%) (Auto) 84H, Lymphocytes (%) (Auto) 9L, Monocytes (%) (Auto) 6, Eosinophils (%) (Auto) 0, Basophils (%) (Auto) 0, Neutr ophils # (Auto) 3.6, Lymphocytes # (Auto) 0.4L, Monocytes # (Auto) 0.3, Eosinop hils # (Auto) 0.0, Basophils # (Auto) 0.0, Sodium Level 143, Potassium Level 4.5, Chloride Level 101, Carbon Dioxide Level 32, Anion Gap 10, Blood Urea Nitrogen 37H, Creatinine 0.82, Estimat Glomerular Filtration Rate > 60, BUN/Creatinine Ratio 45, Glucose Level 172H, Calcium Level 9.4, Phosphorus Level 3.8, Magnesium Level 2.0 10/11/19 03:45: Blood Gas Puncture Site RIGHT RADIAL ARTLINE, Blood Gas Patient Temperature 36.0, Arterial Blood pH 7.47H, Arterial Blood Partial Pressure CO2 51H, Arterial Blood Partial Pressure O2 70L, Arterial Blood HCO3 37H, Arterial Blood Total CO2 38.7H, Arterial Blood Oxygen Saturation 94, Arterial Blood Base Excess 12.4H, Jame Test POSITIVE, Blood Gas Ventilator Setting NO, Blood Gas Inspired Oxygen 30% 10/11/19 11:04: Glucometer 183H Microbiology 10/08/19 Gram Stain - Final, Resulted 10/08/19 Bronchial Culture - Preliminary, Resulted Probable Pseudomonas 10/08/19 Fungal Culture 1 - Preliminary, Resulted 10/07/19 C. difficile DNA Amplification - Final, Complete 09/26/19 Blood Culture - Final, Complete No growth Laboratory Tests 10/10/19 03:30 10/11/19 03:30 A/P: Assessment: Acute resp failure, likely due to COPD exacerbated by aspiration pneumonia Acute renal failure, likely ATN due to hypotension due to sepsis, resolved Uncontrolled hypertension PAF/flutter, currently NSR Elevated troponin - likely type 2 [place] d/t hypoxia Card cath of 09/07/18: minimal CAD, LVEF 70-75%, elevated LVEDP Echo of 09/20/19: LVEF 50-55%, RVSP 35 mmHg H/o opiate addiction ETOH abuse Chronic tobacco use Fam h/o early CAD Hyperlipidemia Borderline DM II (fasting blood glucose on 09/07/18) Carotid u/s on 01/05/19: no significant dz Plan: * Complex management due to multiple comorbidities that are outlined above * BP not ideal - add Norvasc * Has been on Amiodarone 400mg BID since 09-22-19 - reduce to 400mg daily * Replenish lytes as needed * Monitor labs * I spoke with her and her mother and answered CV-related questions JESS CONLEY MD FACP FAC CCDS Oct 11, 2019 11:43
--- NOTE | 2019-10-11 13:56 | Progress Note - Hospitalist ---
Subjective HPI/CC On Admission Date Seen by Provider: Oct 11, 2019 Time Seen by Provider: 07:25 Shortness of breath Subjective/Events-last exam She is awake and alert. She denies any trouble breathing. She denies fevers or chills. She denies chest pain. She denies abdominal pain, nausea, or vomiting. Objective Exam Vital Signs Vital Signs Date Time Temp Pulse Resp B/P (MAP) Pulse Ox O2 Delivery O2 Flow Rate FiO2 10/11/19 13:00 81 16 184/75 (111) 93 NIV Bilevel 30.00 10/11/19 12:00 36.5 10/11/19 04:00 40 Capillary Refill : Less Than 3 Seconds General Appearance: No Apparent Distress, Obese HEENT: PERRL/EOMI, Pharynx Normal Neck: Normal Inspection, Supple Respiratory: Lungs Clear, Normal Breath Sounds, No Respiratory Distress Cardiovascular: Regular Rate, Rhythm, No Edema, No Murmur Gastrointestinal: Normal Bowel Sounds, Non Tender, Soft Extremity: Normal Inspection, Non Tender, Pedal Edema Neurologic/Psychiatric: Alert, No Motor/Sensory Deficits, Normal Mood/Affect Skin: Normal Color, Warm/Dry Results/Procedures Lab Laboratory Tests 10/11/19 03:30 Patient resulted labs reviewed. Imaging: Reviewed Imaging Report Assessment/Plan Assessment and Plan Assess & Plan/Chief Complaint ARDS Acute respiratory failure with hypoxia COPD with acute exacerbation - Prolonged intubation, including reintubation, now extubated - Pulm consulted, appreciate recs - s/p bronch 10/08 with cultures growing Pseudomonas - Continue Bumex - Continue Merrem - Continue steroids Indeterminant C Diff - Confirmatory testing negative - Stop oral vancomycin AFIB/Flutter with RVR HTN - Metoprolol, Vasotec - Cardiology consulted, appreciate recs - Transition to Xarelto Seizure like activity - Continue Keppra RLE DVT - Transition to Xarelto Steroid-induced hyperglycemia - Continue Levemir - SSI Debility - PT/OT Alcohol abuse Morbid obesity - Clinically significant, no acute management needs Critical Care Critically Ill Patient Diagnosis/Problems Diagnosis/Problems (1) ARDS (adult respiratory distress syndrome) Status: Acute (2) Pseudomonas infection (3) VAP (ventilator-associated pneumonia) Status: Acute Clinical Quality Measures DVT/VTE Risk/Contraindication: Risk Factor Score Per Nursin RFS Level Per Nursing on Admit: 4+=Very High ACE DIAMOND MD Oct 11, 2019 13:56
[2019-10-11] MEDS: RIVAROXABAN 20 MG TABLET (XARELTO) PO SCH (16:29)
[2019-10-11] MEDS: ENALAPRILAT 1.25 MG/1 ML (VASOTEC) 1 ML VIAL IV PRN (18:41)
[2019-10-11] MEDS: FAMOTIDINE 20 MG (PEPCID) TABLET PO SCH (20:26)
[2019-10-11] MEDS: AMIODARONE 200 MG (CORDARONE) TAB PO SCH (20:26)
[2019-10-11] MEDS: LEVETIRACETAM 500 MG (KEPPRA) TAB PO SCH (20:27)
[2019-10-12] VITALS (26 sets, daily range): BP systolic 144–177; BP diastolic 74–99
[2019-10-12] MEDS: methylPREDNISolone 40 MG/ML (Solu-MEDROL) VIAL IV SCH ×2 (00:12→17:05)
[2019-10-12] MEDS: RT-ALBUTEROL/IPRATROPIUM 3 ML (DUONEB) VIAL INH SCH ×6 (01:31→21:19)
[2019-10-12 03:04] LABS: BASOPHILS % (AUTO) 0 % (0-10); EOSINOPHILS % (AUTO) 0 % (0-10); HEMATOCRIT 30 % (35-52); HEMOGLOBIN 9.5 G/DL (11.5-16.0); LYMPHOCYTES # (AUTO) 0.6 X 10^3 (1.0-4.0); LYMPHOCYTES % (AUTO) 6 % (12-44); MEAN CORPUSCULAR HEMOGLOBIN 31 PG (25-34); MEAN CORPUSCULAR HGB CONC 32 G/DL (32-36); MEAN CORPUSCULAR VOLUME 98 FL (80-99); MEAN PLATELET VOLUME 8.5 FL (7.4-10.4); MONOCYTES # (AUTO) 0.6 X 10^3 (0.0-1.0); MONOCYTES % (AUTO) 6 % (0-12); NEUTROPHILS # (AUTO) 8.8 X 10^3 (1.8-7.8); NEUTROPHILS % (AUTO) 87 % (42-75); PLATELET COUNT 396 10^3/uL (130-400); RED CELL DISTRIBUTION WIDTH 14.7 % (10.0-14.5); WHITE BLOOD COUNT 10.1 10^3/uL (4.3-11.0)
[2019-10-12 03:25] LABS: BUN/CREATININE RATIO 49; CALCIUM 9.6 MG/DL (8.5-10.1); CARBON DIOXIDE 31 MMOL/L (21-32); CHLORIDE 99 MMOL/L (98-107); CREATININE SERUM 0.81 MG/DL (0.60-1.30); GFR ESTIMATED > 60; GLUCOSE 122 MG/DL (70-105); PHOSPHORUS 3.3 MG/DL (2.3-4.7); POTASSIUM 3.9 MMOL/L (3.6-5.0); SODIUM 145 MMOL/L (135-145)
[2019-10-12 03:35] LABS: LYMPHOCYTES % (MANUAL) 5 %; MONOCYTES % (MANUAL) 6 %; NEUTROPHILS % (MANUAL) 89 %
[2019-10-12] MEDS: MEROPENEM 500 MG/SWFI 10 ML IV PUSH IV SCH ×8 (04:40→22:05)
[2019-10-12] MEDS: POTASSIUM CL 10MEQ/50ML IVPB 50 ML IV SCH (04:53)
[2019-10-12] MEDS: MAGNESIUM 1 GM/100 ML IVPB 100 ML IV SCH (04:54)
[2019-10-12] MEDS: KCL 20 MEQ TAB (K-DUR) PO SCH (04:54)
[2019-10-12] MEDS: guaiFENesin SYRUP 100 MG/5 ML 10 ML (ROBITUSSIN SF) PO SCH ×3 (06:05→20:44)
[2019-10-12] MEDS: inSUlin ASPART (NovoLOG) 1 UNIT/0.01 ML (CHARGE PER UNIT) SC SCH ×3 (06:05→18:44)
[2019-10-12] MEDS ORDERED: predniSONE 20 MG TAB PO SCH (07:00)
[2019-10-12] MEDS: aCETylcysteine 20% (MUCOMYST) 30ML SOLN VIAL INH SCH ×4 (07:18→21:19)
--- NOTE | 2019-10-12 07:48 | Pulmonary Progress Note ---
Subjective Time Seen by a Provider: 10:37 Subjective/Events-last exam Currently on BiPAP. Sepsis Event Evaluation Height, Weight, BMI Height: 5'5.00" Weight: 218lbs. 0.0oz. [id number]; 34.07 BMI Method:Stated Exam Exam Vital Signs Date Time Temp Pulse Resp B/P (MAP) Pulse Ox O2 Delivery O2 Flow Rate FiO2 10/12/19 07:18 93 Vapotherm 7.00 10/12/19 07:00 110 10/12/19 06:38 NIV Bilevel 80.00 10/12/19 06:20 Nasal Cannula 6.00 10/12/19 06:00 98 17 158/91 (113) 93 NIV Bilevel 50.00 10/12/19 05:00 101 26 151/90 (110) 93 NIV Bilevel 50.00 10/12/19 04:00 98 18 156/86 (109) 92 NIV Bilevel 50.00 10/12/19 04:00 37.2 10/12/19 03:28 NIV Bilevel 50 10/12/19 03:00 89 14 155/84 (107) 93 NIV Bilevel 50.00 10/12/19 02:00 93 16 153/81 (105) 93 NIV Bilevel 50.00 10/12/19 01:34 NIV Bilevel 50.00 10/12/19 01:32 88 19 95 50.00 10/12/19 01:00 94 20 156/83 (107) 95 NIV Bilevel 70.00 10/12/19 01:00 93 10/12/19 00:57 NIV Bilevel 70.00 10/12/19 00:38 Nasal Cannula 5.00 10/12/19 00:00 87 15 149/82 (104) 94 Nasal Cannula 6.00 10/11/19 23:59 37.0 10/11/19 23:00 85 18 161/84 (109) 94 Nasal Cannula 6.00 10/11/19 22:00 87 21 154/90 (111) 93 Nasal Cannula 6.00 10/11/19 21:36 93 Nasal Cannula 7.00 10/11/19 21:00 89 13 156/104 (121) 96 Nasal Cannula 6.00 10/11/19 20:00 Nasal Cannula 5.00 10/11/19 20:00 105 14 171/98 (122) 90 Nasal Cannula 6.00 10/11/19 20:00 36.7 10/11/19 19:00 102 10/11/19 19:00 102 13 170/94 (119) 90 Nasal Cannula 6.00 10/11/19 18:28 91 Nasal Cannula 7.00 10/11/19 18:00 100 13 169/91 (117) 91 Nasal Cannula 6.00 10/11/19 17:00 99 15 92 Nasal Cannula 6.00 10/11/19 16:35 93 Nasal Cannula 5.00 10/11/19 16:00 36.3 10/11/19 16:00 78 11 170/103 (125) Nasal Cannula 6.00 10/11/19 15:00 80 20 Nasal Cannula 6.00 10/11/19 14:48 90 Nasal Cannula 7.00 10/11/19 14:14 Nasal Cannula 6.00 10/11/19 14:00 82 12 190/78 (115) Nasal Cannula 5.00 10/11/19 13:00 81 16 184/75 (111) 93 Nasal Cannula 5.00 10/11/19 12:54 77 10/11/19 12:35 94 Nasal Cannula 5.00 10/11/19 12:00 86 19 197/92 (127) 97 Nasal Cannula 5.00 10/11/19 12:00 36.5 10/11/19 11:07 96 Nasal Cannula 5.00 10/11/19 11:00 77 23 179/79 (112) 96 Nasal Cannula 5.00 10/11/19 10:00 78 23 186/88 (120) 97 Nasal Cannula 5.00 10/11/19 09:00 98 21 172/71 (104) 93 Nasal Cannula 5.00 10/11/19 08:00 82 16 179/75 (109) 95 Nasal Cannula 5.00 10/11/19 08:00 93 NIV Bilevel 5.00 I & O 10/12/19 07:00 Intake Total 1600 ml Output Total 2075 ml Balance -475 ml Height & Weight Height: 5'5.00" Weight: 218lbs. 0.0oz. 98.114412jd; 34.07 BMI Method:Stated General Appearance: Mild Distress, Obese HEENT: PERRL/EOMI, Pharynx Normal Neck: Normal Inspection, Supple Respiratory: Lungs Clear, Normal Breath Sounds, No Respiratory Distress Cardiovascular: Regular Rate, Rhythm, No Edema, No Murmur Capillary Refill: Less Than 3 Seconds Gastrointestinal: soft, no organomegaly, no pulsatile mass Extremity: Normal Inspection, Non Tender, Pedal Edema Neurologic/Psychiatric: Alert, No Motor/Sensory Deficits, Normal Mood/Affect Skin: Normal Color, Warm/Dry Lymphatic: No Adenopathy Results Lab Laboratory Tests 10/11/19 03:30 10/12/19 02:57 Assessment/Plan Assessment/Plan Acute respiratory failure with hypoxia - reintubated probably secondary to muc ous plugging vs aspiration. -s/p bronchoscopy -Currently on BiPAP will trial back to [place]. Continue BiPAP QHS -PT is DNR now -Solumedrol to 40 Q 6 -- change to prednisone - Bumex -CT of chest reviewed Seizures -Raeann. Pseudomonus PNA -Continue Merrem changed from Zosyn 10/07 -Repeat cultures pending -Add Levaquin secondary to resistant pseudomonus and worsening respiratory status and leukocytosis -Will d/w pharmacy about stating Deniz SVNs COPDAE -solumedrol -SVNS q 4 Afib/flutter RLE DVT -Lovenox Alcohol abuse Morbid obesity JACLYN SAVAGE DO Oct 12, 2019 07:48
--- NOTE | 2019-10-12 08:47 | Diagnostic Imaging Report ---
EXAMINATION: Chest 1 view HISTORY: Renal failure and sepsis, pneumonia COMPARISON: 10/11/2019 FINDINGS: Right internal jugular central venous catheter tip terminates in the superior vena cava. Bibasilar airspace opacities concerning for pneumonia and appears similar to prior exam. There are small bilateral pleural effusions. No pneumothorax. No edema. Heart size is normal. IMPRESSION: 1. Stable bibasilar airspace opacities concerning for pneumonia with small bilateral pleural effusions. Dictated by: Dictated on workstation # [id number]
[2019-10-12] MEDS: BUMETANIDE 1 MG/4 ML (BUMEX) VIAL IV SCH ×2 (09:04→20:05)
[2019-10-12] MEDS: KCL 20 MEQ POWDER FOR ORAL SOLUTION PO SCH ×2 (09:05→20:44)
[2019-10-12] MEDS: LEVETIRACETAM 500 MG (KEPPRA) TAB PO SCH ×2 (09:05→20:43)
[2019-10-12] MEDS: lisINopril 10 MG (PRINIVIL) TABLET PO SCH (09:05)
[2019-10-12] MEDS: AMIODARONE 200 MG (CORDARONE) TAB PO SCH ×2 (09:05→20:44)
[2019-10-12] MEDS: meTOprolol TARTRATE 50 MG (LOPRESSOR) TAB PO SCH ×2 (09:05→20:43)
[2019-10-12] MEDS: FAMOTIDINE 20 MG (PEPCID) TABLET PO SCH ×2 (09:05→20:44)
--- NOTE | 2019-10-12 09:30 | NUR ---
Patients family is at bedside. Patient took morning medications well and sat up to side of bed with PT with x2 assist. Patient has been on vapotherm since around 709 and has gradually been advanced from 40% o2 on vapotherm to 100% o2 on vapotherm d/t decreased o2 sat, RT and this nurse monitoring pt closely. 929 Patient lethargic, left pupil is 5mm and non-reactive, right pupil 3mm reactive, placed on bipap by RT d/t o2 sat in mid to upper 80%'s. This nurse and and Annamaria RT at bedside, Deysi BALTAZAR, [place] captain, at bedside as well. This nurse notified , he came to bedside immediately. Orders received for an ABG and STAT head CT scan and to transfer patient to ICU status. Zavala catheter inserted by this nurse, sterile technique used. Maricel BALTAZAR assisting with zavala catheter insertion. 1115 This nurse updated of patients change in status. 1130 Orders received from to change mucomyst to Q4H, CPT, mucinex 600mg BID, and to give 1mg bumex now and 125mg solumedrol now. This nurse notified RT of mucomyst schedule changes and of CPT order. Will continue to closely monitor patient.
--- NOTE | 2019-10-12 09:34 | Physical Therapy Daily Note ---
PT Daily Note-Current Subjective Patient in bed pre tx, agrees to PT, voices no complaints of pain, patient seems very lethargic, has a hard time communicating. Appearance Patient in bed post tx with nurse call, phone, tray, laying on left side with pillow support. Mental Status Patient Orientation: Person, Confused Attachments: Oxygen, Osorio Catheter (purewick), IV Transfers SCALE: Activities may be completed with or without assistive devices. 7-[place]-ibronew completes the activity by him/herself with no assistance from a helper. 5-Set-up or Clean-up Assistance-helper sets up or cleans up; patient completes activity. [place] assists only prior to or following the activity. 4-Supervision or Touching Assistance-helper provides verbal cues and/or touching/steadying and/or contact guard assistance as patient completes activity. Assistance may be provided throughout the activity or intermittently. 3-Partial/Moderate Assistance-helper does LESS THAN HALF the effort. [place] lifts, holds or supports trunk or limbs, but provides less than half the effort. 2-Substantial/Maximal Assistance-helper does MORE THAN HALF the effort. [place] lifts or holds trunk or limbs and provides more than half the effort. 0-Yzcvtfxgc-pitzsn does ALL the effort. Patient does none of the effort to complete the activity. Or, the assistance of 2 or more helpers is required for the patient to complete the activity. If activity was not attempted, code reason: 7-Patient Refused. 9-Not Applicable-not attempted and the patient did not perform the activity before the current illness, exacerbation or injury. 10-Not Attempted due to Environmental Limitations-(lack of equipment, weather restraints, etc.). 88-Not Attempted due to Medical Conditions or Safety Concerns. Roll Left & Right (QC): 1 Sit to Lying (QC): 1 Lying to Sitting/Side of Bed(Q: 1 Patient sat on the side of the bed, dependent, for about 10 min, performed LE exercises, O2 stated at 92%, HR was about 130bpm. Weight Bearing Right Lower Extremity: Right Weight Bearing/Tolerated Left Lower Extremity: Left Weight Bearing/Tolerated Exercises Seated Therapy Exercises: Ankle pumps, Long arc quads Seated Reps: 15 (AAROM) Treatments sitting, bed mobility, LE exercise Assessment Current Status: Poor Progress Patient very weak, cannot participate much, lethargic, has a lot of LE edema PT Care Home Goals Care Home Goals PT It Infrastructure Architect Goals Time Frame: Oct 12, 2019 Roll Left & Right (QC): 2 Sit to Lying (QC): 2 Lying-Sitting on Side/Bed(QC): 2 PT Plan Problem List Problem List: Activity Tolerance, Functional Strength, Safety, Balance, Gait, Transfer, Bed Mobility, ROM Treatment/Plan Treatment Plan: Continue Plan of Care Treatment Plan: Bed Mobility, Concurrent Therapy, Education, Functional Activity Lyn, Functional Strength, Gait, Safety, Therapeutic Exercise, Transfers Treatment Duration: Oct 12, 2019 Frequency: 6 times per week Estimated Hrs Per Day: .25 hour per day Patient and/or Family Agrees t: Yes Safety Risks/Education Patient Education: Correct Positioning, Safety Issues Teaching Recipient: Patient Teaching Methods: Demonstration, Discussion Response to Teaching: Reinforcement Needed Time/GCodes Time In: 904 Time Out: 924 Total Billed Treatment Time: 20 Total Billed Treatment 1 visit FA 20' GLENNA PRADHAN PT Oct 12, 2019 09:34
[2019-10-12 09:55] LABS: ABG BASE EXCESS 12.7 MMOL/L (-2.5-2.5); ABG OXYGEN SATURATION 96 % (94-100); ABG PCO2 53 MMHG (35-45); ABG PH 7.46 (7.37-7.43); ABG PO2 86 MMHG (79-93); ABG TCO2 38.8 MMOL/L (21.0-31.0)
[2019-10-12 09:57] LABS: ALLENS TEST POSITIVE; INSPIRED O2 60%; PATIENT TEMP 37.4; VENTILATOR NO
--- NOTE | 2019-10-12 10:48 | Diagnostic Imaging Report ---
INDICATION: Nonreactive left pupil. Noncontrast brain CT is performed and compared to 06/11/2007. TECHNIQUE: Multiple contiguous axial images were obtained through the brain without the use of intravenous contrast. Auto Exposure Controls were utilized during the CT exam to meet ALARA standards for radiation dose reduction. FINDINGS: There are no extra-axial fluid collections. No acute intracranial hemorrhage. No mass effect or midline shift. There is mild ventricular prominence which has increased compared to the prior study. This may be secondary to volume loss. Calvarial windows appear normal. There is no intraorbital lesion. IMPRESSION: No acute intracranial hemorrhage, mass effect, or focal intraparenchymal abnormality. There is slightly increased prominence of the lateral ventricles compared to the prior study which may be due to volume loss. There is no other abnormal finding. Dictated by: Dictated on workstation # [id number]
[2019-10-12] MEDS ORDERED: methylPREDNISolone 125 MG (Solu-MEDROL) VIAL IVP NR (11:45)
[2019-10-12] MEDS ORDERED: BUMETANIDE 1 MG/4 ML (BUMEX) VIAL IV NR ×2 (11:50→20:30)
--- NOTE | 2019-10-12 11:54 | Occupational Ther Daily Note ---
OT Current Status-Daily Note Subjective Spoke with RN and RT prior to treatment. Both state pt is okay for UE activity, but no OOB activity at this time. Pt resting in bed with eyes open, nods in response to therapist ADL-Treatment Therapy Code Descriptions/Definitions Functional [place] Measure: 0=Not Assessed/NA 4=Minimal Assistance 1=Total Assistance 5=Supervision or Setup 2=Maximal Assistance 6=Modified [place] 3=Moderate Assistance 7=Complete IndependenceSCALE: Activities may be completed with or without assistive devices. 7-Jkvalnamfm-udolxxw completes the activity by him/herself with no assistance f rom a helper. 5-Set-up or Clean-up Assistance-helper sets up or cleans up; patient completes activity. [place] assists only prior to or following the activity. 4-Supervision or Touching Assistance-helper provides verbal cues and/or touching/steadying and/or contact guard assistance as patient completes activity. Assistance may be provided throughout the activity or intermittently. 3-Partial/Moderate Assistance-helper does LESS THAN HALF the effort. [place] lifts, holds or supports trunk or limbs, but provides less than half the effort. 2-Substantial/Maximal Assistance-helper does MORE THAN HALF the effort. [place] lifts or holds trunk or limbs and provides more than half the effort. 2-Arlnruvaa-zsxhbo does ALL the effort. Patient does none of the effort to complete the activity. Or, the assistance of 2 or more helpers is required for the patient to complete the activity. If activity was not attempted, code reason: 7-Patient Refused. 9-Not Applicable-not attempted and the patient did not perform the activity before the current illness, exacerbation or injury. 10-Not Attempted due to Environmental Limitations-(lack of equipment, weather restraints, etc.). 88-Not Attempted due to Medical Conditions or Safety Concerns. Other Treatment PROM was completed bilateral UE x10 reps. No indication of pain during ROM. Pt demonstrated ability to perform shoulder shrug and able to assist minimally with elbow ROM. Pt on Bi-pap with sats 96% throughout treatment. Pt resting in bed with family present after session. OT Usp Goals Usp Goals Time Frame: Oct 28, 2019 Eating (QC): 3 Oral Hygiene (QC): 3 Shower/Bathe Self (QC): 2 Upper Body Dressing (QC): 2 Additional Goals: 1-Demonstrate ADL Tasks, 2-Verbalize Understanding, 3- ImproveStrength/Lyn 1=Demonstrate adherence to instructed precautions during ADL tasks. 2=Patient will verbalize/demonstrate understanding of assistive devices/modifications for ADL. 3=Patient will improve strength/tolerance for activity to enable patient to perform ADL's. OT Education/Plan Problem List/Assessment Pt currently demonstrates impaired strength, mobility, and ADL functioning. Pt to benefit from skilled OT intervention for ADL training, strengthening, and mobility to increase level of independence and allow safe discharge plan. Discharge Recommendations Plan/Recommendations: Continue POC Treatment Plan/Plan of Care Patient would benefit from OT for education, treatment and training to promote independence in ADL's, mobility, safety and/or upper extremity function for ADL's. Plan of Care: ADL Retraining, Functional Mobility, UE Funct Exercise/Act Treatment Duration: Oct 28, 2019 Frequency: 5 times per week Estimated Hrs Per Day: .25 hour per day Rehab Potential: Guarded Time/GCodes Start Time: 11:30 Stop Time: 11:40 Total Time Billed (hr/min): 10 Billed Treatment Time 1 visit, EX(10minutes) YOKASTA PECK OT Oct 12, 2019 11:54
--- NOTE | 2019-10-12 11:55 | Diagnostic Imaging Report ---
INDICATION: Shortness of breath. Frontal chest obtained at 11:45 a.m. and compared to same day at 3:45 a.m. FINDINGS: Right IJ catheter is unchanged with tip overlying the upper SVC. The heart is mildly enlarged. There is no change in bilateral basilar infiltrates and bilateral pleural effusions. There is no pneumothorax. IMPRESSION: No change in bilateral basilar infiltrates and bilateral pleural effusions with underlying cardiomegaly. There is no new finding compared with earlier today. Dictated by: Dictated on workstation # [id number]
[2019-10-12] MEDS ORDERED: aCETylcysteine 20% (MUCOMYST) 30ML SOLN VIAL INH SCH (12:00)
[2019-10-12] MEDS ORDERED: methylPREDNISolone 125 MG (Solu-MEDROL) VIAL IVP ONE (12:00)
[2019-10-12] MEDS: amLODIPine 5 MG (NORVASC) TAB PO SCH (12:07)
--- NOTE | 2019-10-12 13:12 | Progress Note - Cardiology ---
Cardiology SOAP Progress Note Subjective: Notes gen malaise and weakness, worse than yesterday No cp Short of breath with mild activity No palp or syncope Objective: I&O/Vital Signs 10/12/19 10/12/19 10/12/19 10/12/19 01:32 01:34 02:00 03:00 Pulse 88 93 89 Resp 19 16 14 B/P (MAP) 153/81 (105) 155/84 (107) Pulse Ox 95 93 93 O2 Delivery NIV Bilevel NIV Bilevel NIV Bilevel O2 Flow Rate 50.00 50.00 50.00 50.00 10/12/19 10/12/19 10/12/19 10/12/19 03:28 04:00 04:00 05:00 Temp 37.2 Pulse 98 101 Resp 18 26 B/P (MAP) 156/86 (109) 151/90 (110) Pulse Ox 92 93 O2 Delivery NIV Bilevel NIV Bilevel NIV Bilevel O2 Flow Rate 50.00 50.00 FiO2 50 10/12/19 10/12/19 10/12/19 10/12/19 06:00 06:20 06:38 07:00 Pulse 98 110 Resp 17 B/P (MAP) 158/91 (113) Pulse Ox 93 O2 Delivery NIV Bilevel Nasal Cannula NIV Bilevel O2 Flow Rate 50.00 6.00 80.00 10/12/19 10/12/19 10/12/19 10/12/19 07:00 07:18 07:30 08:00 Pulse 106 115 Resp 18 B/P (MAP) 161/94 (116) 161/91 (114) Pulse Ox 96 93 88 O2 Delivery NIV Bilevel Vapotherm Vapotherm Vapotherm O2 Flow Rate 80.00 7.00 40.00 40.00 50.00 60.00 10/12/19 10/12/19 10/12/19 10/12/19 08:00 08:00 09:00 09:30 Pulse 113 Resp 10 B/P (MAP) 163/93 (116) Pulse Ox 90 O2 Delivery Vapotherm Vapotherm Vapotherm NIV Bilevel O2 Flow Rate 40.00 40.00 80.00 60.00 60.00 FiO2 90 10/12/19 10/12/19 10/12/19 10/12/19 10:00 11:00 11:03 11:34 Pulse 89 85 88 Resp 24 19 45 B/P (MAP) 164/93 (116) Pulse Ox 96 95 86 O2 Delivery NIV Bilevel NIV Bilevel NIV Bilevel O2 Flow Rate 80.00 80.00 60.00 90.00 10/12/19 10/12/19 10/12/19 10/12/19 12:00 12:00 12:25 12:38 Temp 36.4 Pulse 90 Resp 20 B/P (MAP) Pulse Ox 96 O2 Delivery NIV Bilevel NIV Bilevel NIV Bilevel O2 Flow Rate 90.00 80.00 FiO2 90 10/12/19 00:00 Intake Total 725 ml Output Total 1350 ml Balance -625 ml Weight (Pounds): 218 Weight (Ounces): 0.0 Weight (Calculated Kilograms): 98.669192 Constitutional: AAO x 3, well-developed, well-nourished Respiratory: No accessory muscle use, No respiratory distress; chest expansion is symmetric, other (scattered rhonchi and coarse crackles over large airways, fair to good air entry that is diminished at the bases) Cardiovascular: regular rate-rhythm; No JVD; S1 and S2, systolic murmur (soft MARIE at card base) Gastrointestional: No tender, No soft, No guarding, No rebound; audible bowel sounds Extremities: other (mod bilat LE swelling); No clubbing, No cyanosis Neurologic/Psychiatric: oriented x 3, other (moves all limbs equally) Skin: warm/dry; No rash on exposed areas, No ulcerations on exposed areas Results/Procedures: Labs Laboratory Tests 10/11/19 15:32: Glucometer 170H 10/11/19 20:01: Glucometer 209H 10/12/19 00:35: Glucometer 120H 10/12/19 02:57: White Blood Count 10.1, Red Blood Count 3.02L, Hemoglobin 9.5L, Hematocrit 30L, Mean Corpuscular Volume 98, Mean Corpuscular Hemoglobin 31, Mean Corpuscular Hemoglobin Concent 32, Red Cell Distribution Width 14.7H, Platelet Count 396, Mean Platelet Volume 8.5, Neutrophils (%) (Auto) 87H, Lymphocytes (%) (Auto) 6L, Monocytes (%) (Auto) 6, Eosinophils (%) (Auto) 0, Basophils (%) (Auto) 0, Neutrophils # (Auto) 8.8H, Lymphocytes # (Auto) 0.6L, Monocytes # (Auto) 0.6, Eosinophils # (Auto) 0.0, Basophils # (Auto) 0.0, Neutrophils % (Manual) 89, Lymphocytes % (Manual) 5, Monocytes % (Manual) 6, Sodium Level 145, Potassium Level 3.9, Chloride Level 99, Carbon Dioxide Level 31, Anion Gap 15H, Blood Urea Nitrogen 40H, Creatinine 0.81, Estimat Glomerular Filtration Rate > 60, BUN/Creatinine Ratio 49, Glucose Level 122H, Calcium Level 9.6, Phosphorus Level 3.3, Magnesium Level 2.0 10/12/19 09:45: Blood Gas Puncture Site LEFT RADIAL, Blood Gas Patient Temperature 37.4, Arterial Blood pH 7.46H, Arterial Blood Partial Pressure CO2 53H, Arterial Blood Partial Pressure O2 86, Arterial Blood HCO3 37H, Arterial Blood Total CO2 38.8H, Arterial Blood Oxygen Saturation 96, Arterial Blood Base Excess 12.7H, Jame Test POSITIVE, Blood Gas Ventilator Setting NO, Blood Gas Inspired Oxygen 60% 10/12/19 12:24: Glucometer 152H Microbiology 10/08/19 Mycobacterial Culture - Preliminary, Resulted 10/07/19 C. difficile DNA Amplification - Final, Complete 09/26/19 Blood Culture - Final, Complete No growth A/P: Assessment: Acute resp failure, likely due to COPD exacerbated by aspiration pneumonia Acute renal failure, likely ATN due to hypotension due to sepsis, resolved Uncontrolled hypertension PAF/flutter, currently NSR Elevated troponin - likely type 2 [place] d/t hypoxia Card cath of 09/07/18: minimal CAD, LVEF 70-75%, elevated LVEDP Echo of 09/20/19: LVEF 50-55%, RVSP 35 mmHg H/o opiate addiction ETOH abuse Chronic tobacco use Fam h/o early CAD Hyperlipidemia Borderline DM II (fasting blood glucose on 09/07/18) Carotid u/s on 01/05/19: no significant dz Plan: * Complex management due to multiple comorbidities that are outlined above * Replenish lytes as needed * Monitor labs JESS CONLEY MD FACP FAC CCDS Oct 12, 2019 13:12
--- NOTE | 2019-10-12 14:40 | NUR ---
1432 Pt back on vapotherm, 30L at 80%, VSS. O2 sat 92%. Pt tolerating. Patient is not responding verbally but nods her head to questions occasionally. Pupils remain unequal, left pupil is 5mm and is slightly reactive but is sluggish, right is 3mm and reactive. updated on above at 1436. EICU called this nurse at 1440, this nurse updated EICU on patients status. No new orders received
--- NOTE | 2019-10-12 15:49 | NUR ---
"RD ASSESSMENT PMHx: COPD; GERD; HTN PT INTERACTION: Pt was awake and pleasant during nutrition assessment. Note pt was wearing BiPAP during assessment and pt father present at bedside. Father stated pt's current appetite was pretty poor. Note avg PO intake of 66% x2d, per chart review. Father states pt has been having episodes of nausea recently. Note last BM on 10/10, and pt not currently on bowel regimen per chart review. Note unable to determine recent wt hx, per chart review. ABNORMAL NUTRITION-RELATED LAB VALUES LOW: HIGH: BUN 40; glu 122 Est. kcal needs: 3863-4308 kcal | 15-20 kcal/kg Est. Pro needs: 77-97 g Pro | 0.8-1.0 g Pro/kg PES STATEMENT: Inadequate oral intake (NI-2.1) related to loss of appetite | nausea as evidenced by pt (father) interview | avg PO intake 66% x2d INTERVENTION: Continue with current diet order of DYS2 Mechanically Altered diet. Pt may benefit from nutrition supplementation if PO intake declines. Will continue to follow and reassess as pt needs and status change. MONITOR/EVALUATE: PO Intake; Plan of Care; Hydration Status; Weight Status; Lab Values Pancho Rodriguez, MS, RD, LD"
--- NOTE | 2019-10-12 16:16 | Progress Note - Hospitalist ---
Subjective HPI/CC On Admission Date Seen by Provider: Oct 12, 2019 Time Seen by Provider: 08:25 Shortness of breath Subjective/Events-last exam She is awake. She is wearing BiPAP. She is lethargic. She does follow commands when asked to wiggle her toes. Objective Exam Vital Signs Vital Signs Date Time Temp Pulse Resp B/P (MAP) Pulse Ox O2 Delivery O2 Flow Rate FiO2 10/12/19 15:00 102 20 153/87 (109) 91 NIV Bilevel 80.00 10/12/19 14:30 80 10/12/19 12:25 36.4 Capillary Refill : Less Than 3 Seconds General Appearance: Moderate Distress, Obese HEENT: Other (Left pupil nonreactive, right pupil round and reactive to light) Neck: Normal Inspection, Supple Respiratory: Respiratory Distress, Other (Wearing BiPAP, coarse breath sounds) Cardiovascular: No Murmur, Tachycardia (Regular rhythm) Gastrointestinal: Normal Bowel Sounds, Soft Extremity: Pedal Edema, Swelling Neurologic/Psychiatric: Motor Weakness, Other (Lethargic) Skin: Normal Color, Warm/Dry Results/Procedures Lab Laboratory Tests 10/12/19 02:57 Patient resulted labs reviewed. Imaging: Reviewed Imaging Report Assessment/Plan Assessment and Plan Assess & Plan/Chief Complaint ARDS Acute respiratory failure with hypoxia COPD with acute exacerbation - Prolonged intubation, including reintubation, now extubated - Pulm consulted, appreciate recs - s/p bronch 10/08 with cultures growing Pseudomonas - Continue Bumex - Continue Merrem - Continue steroids - Currently on BiPAP Anisocoria - CT head without abnormality AFIB/Flutter with RVR HTN - Metoprolol, Vasotec - Cardiology consulted, appreciate recs - Continue Xarelto Seizure like activity - Continue Keppra RLE DVT - Continue Xarelto Steroid-induced hyperglycemia - Continue Levemir - SSI Debility - PT/OT Alcohol abuse Morbid obesity - Clinically significant, no acute management needs Critical Care Critically Ill Patient Diagnosis/Problems Diagnosis/Problems (1) ARDS (adult respiratory distress syndrome) Status: Acute (2) Pseudomonas infection Status: Acute (3) VAP (ventilator-associated pneumonia) Status: Acute Clinical Quality Measures DVT/VTE Risk/Contraindication: Risk Factor Score Per Nursin RFS Level Per Nursing on Admit: 4+=Very High ACE DIAMOND MD Oct 12, 2019 16:16
[2019-10-12] MEDS: RIVAROXABAN 20 MG TABLET (XARELTO) PO SCH (17:05)
[2019-10-12] MEDS: morphine INJ 4 MG/ML 1 ML (VIAL/SYRINGE) IVP PRN (17:11)
[2019-10-12 19:57] LABS: ABG BASE EXCESS 13.4 MMOL/L (-2.5-2.5); ABG OXYGEN SATURATION 77 % (94-100); ABG PCO2 56 MMHG (35-45); ABG PH 7.44 (7.37-7.43); ABG PO2 48 MMHG (79-93); ABG TCO2 40.2 MMOL/L (21.0-31.0); ALLENS TEST YES-POS; INSPIRED O2 75%; PATIENT TEMP 36.2; VENTILATOR NO
[2019-10-12] MEDS ORDERED: meTOprolol 5 MG/5 ML (LOPRESSOR) VIAL ONE (20:09)
[2019-10-12] MEDS ORDERED: hydrALAZINE (APESOLINE) 20 MG/ML VIAL IV NR (20:30)
[2019-10-12] MEDS ORDERED: BUMETANIDE 1 MG/4 ML (BUMEX) VIAL IV ONE (20:30)
[2019-10-12] MEDS ORDERED: hydrALAZINE (APESOLINE) 20 MG/ML VIAL IV ONE (20:30)
[2019-10-12] MEDS ORDERED: meTOprolol 5 MG/5 ML (LOPRESSOR) VIAL IV ONE (20:30)
[2019-10-12] MEDS ORDERED: meTOprolol 5 MG/5 ML (LOPRESSOR) VIAL IV NR (20:30)
[2019-10-12] MEDS: guaiFENesin (MUCINEX) 600 MG TAB PO SCH (20:55)
[2019-10-12] MEDS ORDERED: guaiFENesin (MUCINEX) 600 MG TAB PO SCH (21:00)
[2019-10-13] VITALS (30 sets, daily range): BP systolic 111–177; BP diastolic 74–97
[2019-10-13] MEDS: methylPREDNISolone 40 MG/ML (Solu-MEDROL) VIAL IV SCH ×4 (00:09→17:45)
[2019-10-13] MEDS: inSUlin ASPART (NovoLOG) 1 UNIT/0.01 ML (CHARGE PER UNIT) SC SCH ×4 (00:09→17:45)
[2019-10-13] MEDS: aCETylcysteine 20% (MUCOMYST) 30ML SOLN VIAL INH SCH ×6 (01:54→22:01)
[2019-10-13] MEDS: RT-ALBUTEROL/IPRATROPIUM 3 ML (DUONEB) VIAL INH SCH ×6 (01:54→22:00)
[2019-10-13 04:06] LABS: BASOPHILS % (AUTO) 0 % (0-10); EOSINOPHILS % (AUTO) 0 % (0-10); HEMATOCRIT 33 % (35-52); HEMOGLOBIN 10.3 G/DL (11.5-16.0); LYMPHOCYTES # (AUTO) 0.5 X 10^3 (1.0-4.0); LYMPHOCYTES % (AUTO) 4 % (12-44); MEAN CORPUSCULAR HEMOGLOBIN 31 PG (25-34); MEAN CORPUSCULAR HGB CONC 32 G/DL (32-36); MEAN CORPUSCULAR VOLUME 99 FL (80-99); MONOCYTES # (AUTO) 0.7 X 10^3 (0.0-1.0); MONOCYTES % (AUTO) 5 % (0-12); NEUTROPHILS # (AUTO) 13.2 X 10^3 (1.8-7.8); NEUTROPHILS % (AUTO) 92 % (42-75); PLATELET COUNT 297 10^3/uL (130-400); RED CELL DISTRIBUTION WIDTH 14.9 % (10.0-14.5); WHITE BLOOD COUNT 14.4 10^3/uL (4.3-11.0)
[2019-10-13 04:28] LABS: BUN/CREATININE RATIO 49; CALCIUM 9.8 MG/DL (8.5-10.1); CARBON DIOXIDE 33 MMOL/L (21-32); CHLORIDE 97 MMOL/L (98-107); CREATININE SERUM 0.86 MG/DL (0.60-1.30); GFR ESTIMATED > 60; GLUCOSE 176 MG/DL (70-105); PHOSPHORUS 3.8 MG/DL (2.3-4.7); POTASSIUM 4.1 MMOL/L (3.6-5.0); SODIUM 145 MMOL/L (135-145)
[2019-10-13 04:44] LABS: ABG BASE EXCESS 14.9 MMOL/L (-2.5-2.5); ABG OXYGEN SATURATION 99 % (94-100); ABG PCO2 50 MMHG (35-45); ABG PO2 122 MMHG (79-93)
[2019-10-13 04:46] LABS: ALLENS TEST YES-POS; INSPIRED O2 80%; PATIENT TEMP 36.6; VENTILATOR YES
[2019-10-13] MEDS: MEROPENEM 500 MG/SWFI 10 ML IV PUSH IV SCH ×8 (05:35→23:27)
[2019-10-13] MEDS: guaiFENesin SYRUP 100 MG/5 ML 10 ML (ROBITUSSIN SF) PO SCH ×3 (05:35→22:23)
--- NOTE | 2019-10-13 07:23 | NUR ---
REPORT RECEIVED. PATIENT CONFUSED BUT FOLLOWS COMMANDS. FAMILY AT THE BEDSIDE. VSS. AFEBRILE. ON BIPAP THE WHOLE NIGHT SAT>95% ALL QUESTIONS ANSWERED. DENIES NEEDS. REPORT GIVEN TO INCOMING RN.
[2019-10-13] MEDS: BUMETANIDE 1 MG/4 ML (BUMEX) VIAL IV SCH ×2 (08:13→20:45)
[2019-10-13] MEDS: LEVOFLOXACIN 750 MG/150 ML IV 150 ML IV SCH (08:14)
[2019-10-13] MEDS: AMIODARONE 200 MG (CORDARONE) TAB PO SCH ×2 (08:14→20:46)
[2019-10-13] MEDS: lisINopril 10 MG (PRINIVIL) TABLET PO SCH (08:15)
[2019-10-13] MEDS: meTOprolol TARTRATE 50 MG (LOPRESSOR) TAB PO SCH ×2 (08:15→20:46)
[2019-10-13] MEDS: amLODIPine 5 MG (NORVASC) TAB PO SCH (08:15)
[2019-10-13] MEDS: LEVETIRACETAM 500 MG (KEPPRA) TAB PO SCH ×2 (08:15→20:46)
[2019-10-13] MEDS: guaiFENesin (MUCINEX) 600 MG TAB PO SCH ×2 (08:15→20:47)
[2019-10-13] MEDS: ACETAMINOPHEN 325 MG TABLET PO PRN ×2 (08:16→20:46)
[2019-10-13] MEDS: KCL 20 MEQ POWDER FOR ORAL SOLUTION PO SCH ×2 (08:17→20:46)
[2019-10-13] MEDS: FAMOTIDINE 20 MG (PEPCID) TABLET PO SCH ×2 (08:17→20:46)
--- NOTE | 2019-10-13 08:51 | Progress Note - Cardiology ---
Cardiology SOAP Progress Note Objective: I&O/Vital Signs 10/16/19 10/16/19 10/17/19 10/17/19 22:32 22:38 00:00 00:35 Temp 36.7 Pulse 78 76 Resp 18 B/P (MAP) 133/65 (87) Pulse Ox 97 95 95 O2 Delivery Vapotherm Vapotherm Vapotherm O2 Flow Rate 25.00 20.00 25.00 40.00 FiO2 40 40 10/17/19 10/17/19 10/17/19 02:29 04:00 07:00 Temp 36.9 Pulse 83 83 Resp 20 B/P (MAP) 136/70 (92) Pulse Ox 95 92 O2 Delivery Vapotherm Vapotherm O2 Flow Rate 20.00 25.00 40.00 FiO2 40 10/17/19 00:00 Intake Total 1155 ml Output Total 1975 ml Balance -820 ml Weight (Pounds): 218 Weight (Ounces): 0.0 Weight (Calculated Kilograms): 98.068719 Constitutional: AAO x 3, well-developed, well-nourished Respiratory: No accessory muscle use, No respiratory distress; chest expansion is symmetric, other (scattered rhonchi and coarse crackles over large airways, fair to good air entry that is diminished at the bases) Cardiovascular: regular rate-rhythm; No JVD; S1 and S2, systolic murmur (soft MARIE at card base) Gastrointestional: No tender, No soft, No guarding, No rebound; audible bowel sounds Extremities: other (mod bilat LE swelling); No clubbing, No cyanosis Neurologic/Psychiatric: oriented x 3, other (moves all limbs equally) Skin: warm/dry; No rash on exposed areas, No ulcerations on exposed areas Results/Procedures: Labs Laboratory Tests 10/16/19 11:45: Glucometer 219H 10/16/19 15:58: Glucometer 127H 10/16/19 16:34: Glucometer 141H 10/16/19 16:48: Blood Gas Puncture Site LEFT RADIAL, Blood Gas Patient Temperature 36.8, Evi rial Blood pH 7.55H, Arterial Blood Partial Pressure CO2 43, Arterial Blood Partial Pressure O2 69L, Arterial Blood HCO3 37H, Arterial Blood Total CO2 38.4H , Arterial Blood Oxygen Saturation 95, Arterial Blood Base Excess 13.2H, Jame Test POSITIVE, Blood Gas Ventilator Setting NO, Blood Gas Inspired Oxygen 40% 25L 10/16/19 20:00: Glucometer 209H 10/17/19 05:15: White Blood Count 10.8, Red Blood Count 2.80L, Hemoglobin 8.7L, Hematocrit 27L, Mean Corpuscular Volume 98, Mean Corpuscular Hemoglobin 31, Mean Corpuscular Hemoglobin Concent 32, Red Cell Distribution Width 14.0, Platelet Count 236, Mean Platelet Volume 9.9, Neutrophils (%) (Auto) 94H, Lymphocytes (%) (Auto) 3L, Monocytes (%) (Auto) 3, Eosinophils (%) (Auto) 0, Basophils (%) (Auto) 0, Neutrophils # (Auto) 10.1H, Lymphocytes # (Auto) 0.3L, Monocytes # (Auto) 0.3, Eosinophils # (Auto) 0.0, Basophils # (Auto) 0.0, Sodium Level 147H, Potassium Level 3.6, Chloride Level 103, Carbon Dioxide Level 31, Anion Gap 13, Blood Urea Nitrogen 39H, Creatinine 0.74, Estimat Glomerular Filtration Rate > 60, BUN/Creatinine Ratio 53, Glucose Level 104, Calcium Level 9.6, Phosphorus Level 3.0, Magnesium Level 2.1 10/17/19 05:45: Glucometer 121H Microbiology 10/08/19 Mycobacterial Culture - Preliminary, Resulted 10/07/19 C. difficile DNA Amplification - Final, Complete 09/26/19 Blood Culture - Final, Complete No growth A/P: Assessment: Acute resp failure, likely due to COPD exacerbated by aspiration pneumonia Acute renal failure, likely ATN due to hypotension due to sepsis, resolved Uncontrolled hypertension PAF/flutter, currently NSR Elevated troponin - likely type 2 [place] d/t hypoxia Card cath of 09/07/18: minimal CAD, LVEF 70-75%, elevated LVEDP Echo of 09/20/19: LVEF 50-55%, RVSP 35 mmHg H/o opiate addiction ETOH abuse Chronic tobacco use Fam h/o early CAD Hyperlipidemia Borderline DM II (fasting blood glucose on 09/07/18) Carotid u/s on 01/05/19: no significant dz Plan: * Complex management due to multiple comorbidities that are outlined above * Replenish lytes as needed * Monitor labs DELROY TURNER Oct 13, 2019 08:51
--- NOTE | 2019-10-13 09:44 | Diagnostic Imaging Report ---
INDICATION: Pneumonia COMPARISON: 05/05/2020 FINDINGS: Single view chest demonstrates increasing basilar atelectasis, effusion or infiltrate on the right. There is increasing volume loss of right hemithorax. There is some improvement in aeration of the left lung base. The heart is prominent with slight central vascular congestion. There is no pneumothorax. The right IJ catheter is stable. IMPRESSION: Increasing atelectasis, effusion and infiltrate right base. Follow-up recommended. Dictated by: Dictated on workstation # [id number]
--- NOTE | 2019-10-13 10:02 | Physical Therapy Daily Note ---
PT Daily Note-Current Subjective Patient is lethargic and unable to communicate. Mental Status Patient Orientation: Eyes Open Attachments: Oxygen, Osorio Catheter Transfers SCALE: Activities may be completed with or without assistive devices. 7-Uopqumglyi-kyudkrt completes the activity by him/herself with no assistance from a helper. 5-Set-up or Clean-up Assistance-helper sets up or cleans up; patient completes activity. [place] assists only prior to or following the activity. 4-Supervision or Touching Assistance-helper provides verbal cues and/or touching/steadying and/or contact guard assistance as patient completes activity. Assistance may be provided throughout the activity or intermittently. 3-Partial/Moderate Assistance-helper does LESS THAN HALF the effort. [place] lifts, holds or supports trunk or limbs, but provides less than half the effort. 2-Substantial/Maximal Assistance-helper does MORE THAN HALF the effort. [place] lifts or holds trunk or limbs and provides more than half the effort. 8-Pblwidhvz-rcgpoj does ALL the effort. Patient does none of the effort to complete the activity. Or, the assistance of 2 or more helpers is required for the patient to complete the activity. If activity was not attempted, code reason: 7-Patient Refused. 9-Not Applicable-not attempted and the patient did not perform the activity before the current illness, exacerbation or injury. 10-Not Attempted due to Environmental Limitations-(lack of equipment, weather restraints, etc.). 88-Not Attempted due to Medical Conditions or Safety Concerns. Weight Bearing Right Lower Extremity: Right Weight Bearing/Tolerated Left Lower Extremity: Left Weight Bearing/Tolerated Gait Training Does the Patient Walk?: No and Walking Goal NOT indicated Exercises Supine Ex: Ankle pumps (PROM bilateral), Heel Slides (PROM bilateral), Knee to chest (PROM bilateral) Treatments PROM Assessment Patient was unable to communicate but had eyes open and appeared to understand what was being said to her at times. PROM was performed on knees, hips, and feet. PT Care Home Goals Oracle Fusion Consultant Goals PT Oracle Fusion Consultant Goals Time Frame: Oct 12, 2019 Roll Left & Right (QC): 2 Sit to Lying (QC): 2 Lying-Sitting on Side/Bed(QC): 2 PT Plan Problem List Problem List: Activity Tolerance, Functional Strength, Safety, Balance, Gait, Transfer, Bed Mobility, ROM Treatment/Plan Treatment Plan: Continue Plan of Care Treatment Plan: Bed Mobility, Concurrent Therapy, Education, Functional Activity Lyn, Functional Strength, Gait, Safety, Therapeutic Exercise, Transfers Treatment Duration: Oct 12, 2019 Frequency: 6 times per week Estimated Hrs Per Day: .25 hour per day Patient and/or Family Agrees t: Yes Time/GCodes Time In: 840 Time Out: 850 Total Billed Treatment Time: 10 Total Billed Treatment 1 visit EX (10 minutes) MERVIN PETERSON PT Oct 13, 2019 10:01
--- NOTE | 2019-10-13 10:44 | Progress Note - Cardiology ---
Cardiology SOAP Progress Note Subjective: On BiPAP Does not report cp or palp Breathing better after transfer back to ICU status and intensive breathing treatments Gen malaise and weakness Parents by bedside Objective: I&O/Vital Signs 10/12/19 10/13/19 10/13/19 10/13/19 23:00 00:00 00:00 00:00 Temp 36.2 Pulse 116 116 Resp 23 23 B/P (MAP) 158/90 (112) 143/91 (108) Pulse Ox 94 94 O2 Delivery NIV Bilevel NIV Bilevel NIV Bilevel O2 Flow Rate 100.00 100.00 FiO2 90 10/13/19 10/13/19 10/13/19 10/13/19 01:00 01:00 01:56 02:00 Pulse 109 108 88 114 Resp 20 45 24 B/P (MAP) 128/77 (94) 150/87 (108) Pulse Ox 94 86 95 O2 Delivery NIV Bilevel NIV Bilevel O2 Flow Rate 100.00 100.00 100.00 10/13/19 10/13/19 10/13/19 10/13/19 03:00 04:00 04:00 04:00 Temp 36.6 Pulse 118 116 Resp 20 23 B/P (MAP) 154/85 (108) 135/84 (101) Pulse Ox 94 96 O2 Delivery NIV Bilevel NIV Bilevel NIV Bilevel O2 Flow Rate 100.00 100.00 FiO2 90 10/13/19 10/13/19 10/13/19 10/13/19 05:00 06:00 07:00 07:00 Pulse 113 113 112 112 Resp 23 21 21 B/P (MAP) 152/93 (112) 162/93 (116) 161/97 (118) Pulse Ox 96 95 95 O2 Delivery NIV Bilevel NIV Bilevel NIV Bilevel O2 Flow Rate 100.00 100.00 100.00 10/13/19 10/13/19 10/13/19 10/13/19 07:12 07:12 08:00 08:13 Temp 37.8 Pulse 112 115 Resp 26 20 B/P (MAP) 160/94 (116) Pulse Ox 95 94 O2 Delivery NIV Bilevel NIV Bilevel O2 Flow Rate 70.00 80.00 70.00 10/13/19 10/13/19 10/13/19 10/13/19 08:15 08:16 08:50 09:00 Temp 37.8 37.4 Pulse 112 Resp 21 B/P (MAP) 143/92 (109) Pulse Ox 95 95 O2 Delivery NIV Bilevel NIV Bilevel O2 Flow Rate 30.00 70.00 FiO2 60 10/13/19 00:00 Intake Total 100 ml Output Total 2750 ml Balance -2650 ml Weight (Pounds): 218 Weight (Ounces): 0.0 Weight (Calculated Kilograms): 98.953857 Constitutional: AAO x 3, well-developed, well-nourished Respiratory: No accessory muscle use, No respiratory distress; chest expansion is symmetric, other (scattered rhonchi and coarse crackles over large airways, f air to good air entry that is diminished at the bases) Cardiovascular: regular rate-rhythm; No JVD; S1 and S2, systolic murmur (soft MARIE at card base) Gastrointestional: No tender, No soft, No guarding, No rebound; audible bowel sounds Extremities: other (mod bilat LE swelling); No clubbing, No cyanosis Neurologic/Psychiatric: oriented x 3, other (moves all limbs equally) Skin: warm/dry; No rash on exposed areas, No ulcerations on exposed areas Results/Procedures: Labs Laboratory Tests 10/12/19 12:24: Glucometer 152H 10/12/19 19:50: Blood Gas Puncture Site LEFT RADIAL, Blood Gas Patient Temperature 36.2, Arterial Blood pH 7.44H, Arterial Blood Partial Pressure CO2 56H, Arterial Blood Partial Pressure O2 48L, Arterial Blood HCO3 38H, Arterial Blood Total CO2 40.2H , Arterial Blood Oxygen Saturation 77L, Arterial Blood Base Excess 13.4H, Jame Test YES-POS, Blood Gas Ventilator Setting NO, Blood Gas Inspired Oxygen 75% 10/13/19 00:03: Glucometer 174H 10/13/19 03:45: White Blood Count 14.4H, Red Blood Count 3.31L, Hemoglobin 10.3L, Hematocrit 33L , Mean Corpuscular Volume 99, Mean Corpuscular Hemoglobin 31, Mean Corpuscular Hemoglobin Concent 32, Red Cell Distribution Width 14.9H, Platelet Count 297, Mean Platelet Volume 9.0, Neutrophils (%) (Auto) 92H, Lymphocytes (%) (Auto) 4L, Monocytes (%) (Auto) 5, Eosinophils (%) (Auto) 0, Basophils (%) (Auto) 0, Neutrophils # (Auto) 13.2H, Lymphocytes # (Auto) 0.5L, Monocytes # (Auto) 0.7, Eosinophils # (Auto) 0.0, Basophils # (Auto) 0.0, Sodium Level 145, Potassium Level 4.1, Chloride Level 97L, Carbon Dioxide Level 33H, Anion Gap 15H, Blood Urea Nitrogen 42H, Creatinine 0.86, Estimat Glomerular Filtration Rate > 60, BUN/Creatinine Ratio 49, Glucose Level 176H, Calcium Level 9.8, Phosphorus Level 3.8, Magnesium Level 2.0 10/13/19 04:00: Blood Gas Puncture Site R RAD, Blood Gas Patient Temperature 36.6, Arterial Blood pH 7.50H, Arterial Blood Partial Pressure CO2 50H, Arterial Blood Partial Pressure O2 122H, Arterial Blood HCO3 39H, Arterial Blood Total CO2 41.0H, Arterial Blood Oxygen Saturation 99, Arterial Blood Base Excess 14.9H, Jame Test YES-POS, Blood Gas Ventilator Setting YES, Blood Gas Inspired Oxygen 80% Microbiology 10/08/19 Mycobacterial Culture - Preliminary, Resulted 10/07/19 C. difficile DNA Amplification - Final, Complete 09/26/19 Blood Culture - Final, Complete No growth Laboratory Tests 10/12/19 02:57 10/13/19 03:45 A/P: Assessment: Acute resp failure, likely due to COPD exacerbated by aspiration pneumonia Acute renal failure, likely ATN due to hypotension due to sepsis, resolved. Now appears to have some degree of pre-renal azotemia Uncontrolled hypertension PAF/flutter, currently NSR Elevated troponin at presentation - likely type 2 [place] d/t hypoxia Card cath of 09/07/18: minimal CAD, LVEF 70-75%, elevated LVEDP Echo of 09/20/19: LVEF 50-55%, RVSP 35 mmHg H/o opiate addiction ETOH abuse Chronic tobacco use Fam h/o early CAD Hyperlipidemia Borderline DM II (fasting blood glucose on 09/07/18) Carotid u/s on 01/05/19: no significant dz Plan: * Complex management due to multiple comorbidities that are outlined above * Replenish lytes as needed * Monitor labs * Dr Piper covering me until Thursday JESS CONLEY MD FACP FAC CCDS Oct 13, 2019 10:44
--- NOTE | 2019-10-13 11:00 | Progress Note - Hospitalist ---
Subjective HPI/CC On Admission Date Seen by Provider: Oct 13, 2019 Time Seen by Provider: 08:00 Shortness of breath Subjective/Events-last exam She is wearing BiPAP this morning. She is lethargic. She is able to respond to questions. She denies being in any pain. She denies having any trouble breathing. She has no complaints. Objective Exam Vital Signs Vital Signs Date Time Temp Pulse Resp B/P (MAP) Pulse Ox O2 Delivery O2 Flow Rate FiO2 10/13/19 10:00 95 13 139/92 (108) 96 NIV Bilevel 70.00 10/13/19 08:50 37.4 10/13/19 08:15 60 Capillary Refill : Less Than 3 Seconds General Appearance: Mild Distress, Obese HEENT: PERRL/EOMI, Other (wearing BiPAP) Neck: Normal Inspection, Supple Respiratory: Other (coarse breath sounds, wearing BiPAP) Cardiovascular: Tachycardia (regular rhythm) Gastrointestinal: Non Tender, Soft, Abnormal Bowel Sounds (hypoactive) Extremity: Normal Inspection, Non Tender, Pedal Edema, Swelling Neurologic/Psychiatric: Other (lethargic, following commands) Skin: Normal Color, Warm/Dry Results/Procedures Lab Laboratory Tests 10/13/19 03:45 Patient resulted labs reviewed. Imaging: Reviewed Imaging Report Assessment/Plan Assessment and Plan Assess & Plan/Chief Complaint ARDS Acute respiratory failure with hypoxia COPD with acute exacerbation VAP - Prolonged intubation, including reintubation, now extubated - Pulm consulted, appreciate recs - Sputum and bronchial cultures consistently growing Pseudomonas - chest x-ray with increasing right base infiltrate - Continue Bumex - Continue Merrem - Levaquin added today - Consider adding MRSA coverage - Continue steroids - Currently on BiPAP Anisocoria - CT head without abnormality AFIB/Flutter with RVR HTN - Metoprolol, Vasotec - Cardiology consulted, appreciate recs - Continue Xarelto Seizure like activity - Continue Keppra RLE DVT - Continue Xarelto Steroid-induced hyperglycemia - Continue Levemir - SSI Debility - PT/OT Alcohol abuse Morbid obesity - Clinically significant, no acute management needs Critical Care Critically Ill Patient Diagnosis/Problems Diagnosis/Problems (1) ARDS (adult respiratory distress syndrome) Status: Acute (2) Pseudomonas infection Status: Acute (3) VAP (ventilator-associated pneumonia) Status: Acute Clinical Quality Measures DVT/VTE Risk/Contraindication: Risk Factor Score Per Nursin RFS Level Per Nursing on Admit: 4+=Very High ACE DIAMOND MD Oct 13, 2019 11:00
--- NOTE | 2019-10-13 11:45 | Occupational Ther Daily Note ---
OT Current Status-Daily Note Subjective Pt lethargic, lying in bed. Pt opened eyes when name spoken then immediately closed eyes. Pt did not verbally respond to questions though would look at KING's face. Respiratory in room also adjusting vapotherm and giving breathing treatment. Mental Status/Objective Patient Orientation: Person, Place, Time, Situation Attachments: Osorio Catheter, IV, Oxygen, Telemetry ADL-Treatment Therapy Code Descriptions/Definitions Functional [place] Measure: 0=Not Assessed/NA 4=Minimal Assistance 1=Total Assistance 5=Supervision or Setup 2=Maximal Assistance 6=Modified [place] 3=Moderate Assistance 7=Complete IndependenceSCALE: Activities may be completed with or without assistive devices. 8-Yqskhiqjmv-wrxdmua completes the activity by him/herself with no assistance from a helper. 5-Set-up or Clean-up Assistance-helper sets up or cleans up; patient completes activity. [place] assists only prior to or following the activity. 4-Supervision or Touching Assistance-helper provides verbal cues and/or touching/steadying and/or contact guard assistance as patient completes activity. Assistance may be provided throughout the activity or intermittently. 3-Partial/Moderate Assistance-helper does LESS THAN HALF the effort. [place] lifts, holds or supports trunk or limbs, but provides less than half the effort. 2-Substantial/Maximal Assistance-helper does MORE THAN HALF the effort. [place] lifts or holds trunk or limbs and provides more than half the effort. 4-Rhufiwxta-wdlliz does ALL the effort. Patient does none of the effort to complete the activity. Or, the assistance of 2 or more helpers is required for the patient to complete the activity. If activity was not attempted, code reason: 7-Patient Refused. 9-Not Applicable-not attempted and the patient did not perform the activity before the current illness, exacerbation or injury. 10-Not Attempted due to Environmental Limitations-(lack of equipment, weather restraints, etc.). 88-Not Attempted due to Medical Conditions or Safety Concerns. Other Treatment Completed PROM in all planes to B UE's. Attempted to get pt to interact and move UE's, no interaction or attempting to move UE's. Edema noted in hands, edema massage and movement to decrease. After therapy, pt lying in bed with call light/phone in reach. Respiratory in room. All needs met in room. OT Halfway Goals Filtrose Crusher Goals Time Frame: Oct 28, 2019 Eating (QC): 3 Oral Hygiene (QC): 3 Shower/Bathe Self (QC): 2 Upper Body Dressing (QC): 2 Additional Goals: 1-Demonstrate ADL Tasks, 2-Verbalize Understanding, 3- ImproveStrength/Lyn 1=Demonstrate adherence to instructed precautions during ADL tasks. 2=Patient will verbalize/demonstrate understanding of assistive devices/modifications for ADL. 3=Patient will improve strength/tolerance for activity to enable patient to perform ADL's. OT Education/Plan Problem List/Assessment Assessment: Decreased Activ Tolerance, Decreased Safety Aware, Decreased UE Strength, Dependent Transfers, Edema, Impaired Bed Mobility, Impaired Cognition, Impaired Coordination, Impaired Funct Balance, Impaired I ADL's, Impaired Self- Care Skills, Restricted Funct UE ROM Pt currently demonstrates impaired strength, mobility, and ADL functioning. Pt to benefit from skilled OT intervention for ADL training, strengthening, and mobility to increase level of independence and allow safe discharge plan. Discharge Recommendations Plan/Recommendations: Continue POC Treatment Plan/Plan of Care Patient would benefit from OT for education, treatment and training to promote independence in ADL's, mobility, safety and/or upper extremity function for ADL's. Plan of Care: ADL Retraining, Functional Mobility, UE Funct Exercise/Act Treatment Duration: Oct 28, 2019 Frequency: 5 times per week Estimated Hrs Per Day: .25 hour per day Rehab Potential: Guarded Time/GCodes Start Time: 11:22 Stop Time: 11:34 Total Time Billed (hr/min): 12 Billed Treatment Time 1 visit-EX 1 (12 min) TY REAGAN Oct 13, 2019 11:44
[2019-10-13] MEDS: RIVAROXABAN 20 MG TABLET (XARELTO) PO SCH (17:08)
--- NOTE | 2019-10-13 22:11 | NUR ---
DECREASED FIO2 TO 45%, LION WITH RN Addendum: 10/13/19 at 2212 by MERVIN STAFFORD RT Amended: Links added.
[2019-10-14] VITALS (16 sets, daily range): BP systolic 124–152; BP diastolic 67–92
[2019-10-14] MEDS: inSUlin ASPART (NovoLOG) 1 UNIT/0.01 ML (CHARGE PER UNIT) SC SCH ×5 (01:02→23:42)
[2019-10-14] MEDS: methylPREDNISolone 40 MG/ML (Solu-MEDROL) VIAL IV SCH ×5 (01:02→23:41)
[2019-10-14] MEDS: RT-ALBUTEROL/IPRATROPIUM 3 ML (DUONEB) VIAL INH SCH ×6 (02:02→21:16)
[2019-10-14] MEDS: aCETylcysteine 20% (MUCOMYST) 30ML SOLN VIAL INH SCH ×6 (02:02→21:16)
[2019-10-14 03:27] LABS: BASOPHILS % (AUTO) 0 % (0-10); EOSINOPHILS % (AUTO) 0 % (0-10); HEMATOCRIT 29 % (35-52); HEMOGLOBIN 8.9 G/DL (11.5-16.0); LYMPHOCYTES # (AUTO) 0.5 X 10^3 (1.0-4.0); LYMPHOCYTES % (AUTO) 5 % (12-44); MEAN CORPUSCULAR HEMOGLOBIN 30 PG (25-34); MEAN CORPUSCULAR HGB CONC 31 G/DL (32-36); MEAN CORPUSCULAR VOLUME 99 FL (80-99); MEAN PLATELET VOLUME 9.1 FL (7.4-10.4); MONOCYTES # (AUTO) 0.3 X 10^3 (0.0-1.0); MONOCYTES % (AUTO) 3 % (0-12); NEUTROPHILS # (AUTO) 9.3 X 10^3 (1.8-7.8); NEUTROPHILS % (AUTO) 92 % (42-75); PLATELET COUNT 248 10^3/uL (130-400); RED CELL DISTRIBUTION WIDTH 14.6 % (10.0-14.5)
[2019-10-14 03:46] LABS: BUN/CREATININE RATIO 52; CALCIUM 9.9 MG/DL (8.5-10.1); CARBON DIOXIDE 34 MMOL/L (21-32); CHLORIDE 97 MMOL/L (98-107); CREATININE SERUM 0.83 MG/DL (0.60-1.30); GFR ESTIMATED > 60; GLUCOSE 151 MG/DL (70-105); MAGNESIUM 2.1 MG/DL (1.6-2.4); PHOSPHORUS 3.2 MG/DL (2.3-4.7); POTASSIUM 3.6 MMOL/L (3.6-5.0); SODIUM 146 MMOL/L (135-145)
--- NOTE | 2019-10-14 04:38 | Pulmonary Progress Note ---
Subjective Time Seen by a Provider: 04:34 Subjective/Events-last exam Pt is still requiring BiPAP . Sepsis Event Evaluation Height, Weight, BMI Height: 5'5.00" Weight: 218lbs. 0.0oz. 98.386685qp; 34.07 BMI Method:Stated Exam Exam Vital Signs Date Time Temp Pulse Resp B/P (MAP) Pulse Ox O2 Delivery O2 Flow Rate FiO2 10/14/19 03:00 99 26 146/89 (108) 95 NIV Bilevel 50.00 10/14/19 02:04 93 31 96 40.00 10/14/19 02:00 92 19 124/73 (90) 97 NIV Bilevel 50.00 10/14/19 01:23 36.6 10/14/19 01:00 97 18 143/89 (107) 96 NIV Bilevel 50.00 10/14/19 01:00 100 10/14/19 00:00 98 19 148/92 (110) 96 NIV Bilevel 50.00 10/14/19 00:00 95 NIV Bilevel 50 10/13/19 23:00 100 19 138/85 (102) 96 NIV Bilevel 50.00 10/13/19 22:01 98 16 96 50.00 10/13/19 22:00 99 13 128/79 (95) 96 NIV Bilevel 50.00 10/13/19 21:00 114 22 150/95 (113) 95 NIV Bilevel 50.00 10/13/19 20:00 96 NIV Bilevel 50 10/13/19 20:00 112 17 155/92 (113) 96 NIV Bilevel 50.00 10/13/19 19:35 36.0 10/13/19 19:00 111 20 151/95 (113) 97 NIV Bilevel 50.00 10/13/19 19:00 111 10/13/19 18:22 111 17 95 50.00 10/13/19 18:00 106 17 144/91 (108) 96 NIV Bilevel 50.00 10/13/19 17:00 109 19 136/97 (110) 95 NIV Bilevel 50.00 10/13/19 16:30 95 NIV Bilevel 30.00 60 10/13/19 16:00 111 23 151/96 (114) 95 NIV Bilevel 50.00 10/13/19 15:00 102 18 146/92 (110) 93 NIV Bilevel 50.00 10/13/19 14:53 NIV Bilevel 50.00 10/13/19 14:53 103 20 94 60.00 10/13/19 14:00 100 17 148/92 (110) 95 NIV Bilevel 60.00 10/13/19 13:00 98 16 148/92 (110) 95 NIV Bilevel 60.00 10/13/19 13:00 97 10/13/19 12:48 95 NIV Bilevel 30.00 60 10/13/19 12:00 94 20 150/91 (110) 97 NIV Bilevel 60.00 10/13/19 11:37 36.1 10/13/19 11:37 NIV Bilevel 60.00 10/13/19 11:29 91 17 98 70.00 10/13/19 11:00 90 14 152/83 (106) 95 NIV Bilevel 70.00 10/13/19 10:00 95 13 139/92 (108) 96 NIV Bilevel 70.00 10/13/19 09:00 112 21 143/92 (109) 95 NIV Bilevel 70.00 10/13/19 08:50 37.4 10/13/19 08:16 37.8 10/13/19 08:15 95 NIV Bilevel 30.00 60 10/13/19 08:13 37.8 10/13/19 08:00 115 20 160/94 (116) 94 NIV Bilevel 70.00 10/13/19 07:12 112 26 95 80.00 10/13/19 07:12 NIV Bilevel 70.00 10/13/19 07:00 112 10/13/19 07:00 112 21 161/97 (118) 95 NIV Bilevel 100.00 10/13/19 06:00 113 21 162/93 (116) 95 NIV Bilevel 100.00 10/13/19 05:00 113 23 152/93 (112) 96 NIV Bilevel 100.00 I & O 10/14/19 07:00 Intake Total 340 ml Output Total 1825 ml Balance -1485 ml Height & Weight Height: 5'5.00" Weight: 218lbs. 0.0oz. 98.489476dz; 34.07 BMI Method:Stated General Appearance: Mild Distress, Obese HEENT: PERRL/EOMI, Other (wearing BiPAP) Neck: Normal Inspection, Supple Respiratory: Other (coarse breath sounds, wearing BiPAP) Cardiovascular: Tachycardia (regular rhythm) Capillary Refill: Less Than 3 Seconds Gastrointestinal: soft, no organomegaly, no pulsatile mass Extremity: Normal Inspection, Non Tender, Pedal Edema, Swelling Neurologic/Psychiatric: Other (lethargic, following commands) Skin: Normal Color, Warm/Dry Lymphatic: No Adenopathy Results Lab Laboratory Tests 10/13/19 03:45 10/14/19 03:15 Assessment/Plan Assessment/Plan Acute respiratory failure with hypoxia - reintubated probably secondary to mucous plugging vs aspiration. -s/p bronchoscopy -Currently on BiPAP will trial back to [place]. Continue BiPAP QHS -PT is DNR now -Solumedrol to 40 Q 6 -- change to prednisone - Bumex -CT of chest reviewed Seizures -Raeann. Pseudomonus PNA -Continue Merrem changed from Zosyn 10/07 -Repeat cultures pending -Add Levaquin secondary to resistant pseudomonus and worsening respiratory status and leukocytosis -Will d/w pharmacy about stating Deniz SVNs COPDAE -solumedrol -SVNS q 4 Afib/flutter RLE DVT -Lovenox Alcohol abuse Morbid obesity JACLYN SAVAGE DO Oct 14, 2019 04:37
[2019-10-14] MEDS: MEROPENEM 500 MG/SWFI 10 ML IV PUSH IV SCH ×2 (05:52)
[2019-10-14] MEDS: BUMETANIDE 1 MG/4 ML (BUMEX) VIAL IV SCH ×2 (05:53→06:02)
[2019-10-14] MEDS: guaiFENesin SYRUP 100 MG/5 ML 10 ML (ROBITUSSIN SF) PO SCH ×3 (06:02→21:37)
--- NOTE | 2019-10-14 08:03 | Diagnostic Imaging Report ---
CHEST 1 VIEW, AP/PA ONLY Indication: Dyspnea Comparison: 10/13/2019 Findings: Stable right IJ central venous catheter. Stable small right pleural effusion. Basilar pulmonary opacities are unchanged. No pneumothorax. Stable cardiomediastinal silhouette. Impression: 1. Stable right pleural effusion and basilar opacities, potentially due to pneumonia or atelectasis. Dictated by: Dictated on workstation # [id number]
[2019-10-14] MEDS: amLODIPine 5 MG (NORVASC) TAB PO SCH (08:29)
[2019-10-14] MEDS: LEVETIRACETAM 500 MG (KEPPRA) TAB PO SCH ×2 (08:29→19:47)
[2019-10-14] MEDS: guaiFENesin (MUCINEX) 600 MG TAB PO SCH ×2 (08:29→19:47)
[2019-10-14] MEDS: MEROPENEM 500 MG in WATER (STERILE) FOR INJECTION 10 ML IV SCH ×4 (08:29→23:41)
[2019-10-14] MEDS: LEVOFLOXACIN 750 MG/150 ML IV 150 ML IV SCH (08:29)
[2019-10-14] MEDS: meTOprolol TARTRATE 50 MG (LOPRESSOR) TAB PO SCH ×2 (08:29→19:48)
[2019-10-14] MEDS: AMIODARONE 200 MG (CORDARONE) TAB PO SCH ×2 (08:30→19:47)
[2019-10-14] MEDS: lisINopril 10 MG (PRINIVIL) TABLET PO SCH (08:30)
[2019-10-14] MEDS: FAMOTIDINE 20 MG (PEPCID) TABLET PO SCH ×2 (08:30→19:50)
[2019-10-14] MEDS: KCL 20 MEQ POWDER FOR ORAL SOLUTION PO SCH ×2 (09:04→19:48)
[2019-10-14] MEDS: morphine INJ 4 MG/ML 1 ML (VIAL/SYRINGE) IVP PRN ×2 (09:04→13:17)
--- NOTE | 2019-10-14 09:44 | Cardiology Progress Note ---
Subjective Date Seen by Provider: Oct 14, 2019 Time Seen by Provider: 09:40 Subjective/Events-last exam patient is laying down in bed, lethargic, having dyspnea. Denied any chest pain. I visited with her and her family, all questions were answered. Review of Systems General: No Chills, No Night Sweats; Fatigue, Malaise; No Appetite, No Other HEENT: No Head Aches, No Visual Changes, No Eye Pain, No Ear Pain, No Dysphasia, No Sinus Congestion, No Post Nasal Drip, No Sore Throat, No Other Pulmonary: Dyspnea; No Cough, No Pleuritic Chest Pain, No Other Cardiovascular: Edema; No: Chest Pain, Palpitations, Orthopnea, Paroxysmal Noc. Dyspnea, Lt Headedness, Other Objective-Cardiology Exam Last Set of Vital Signs Vital Signs 10/14/19 10/14/19 10/14/19 10/14/19 10/14/19 06:00 06:55 07:30 08:13 08:20 Temp 36.2 Pulse 104 Resp 17 B/P (MAP) 148/82 (104) Pulse Ox 98 O2 Delivery NIV Bilevel O2 Flow Rate 35.00 50.00 FiO2 40 Capillary Refill : Less Than 3 Seconds I&O l Intake and Output 10/14/19 00:00 Intake Total 340 ml Output Total 2225 ml Balance -1885 ml Intake Oral 170 ml IV Total 170 ml Output Urine Total 2225 ml General: Alert, Oriented X3, Cooperative, Moderate Distress HEENT: Atraumatic, PERRLA Neck: Supple, No JVD, No Thyromegaly Lungs: Normal Air Movement, Other (bilateral rhonchi) Heart: Regular Rate, Normal S1, Normal S2, No Murmurs Abdomen: Normal Bowel Sounds, Soft, No Tenderness, No Hepatosplenomegaly, No Masses Extremities: No Clubbing, No Cyanosis, Normal Pulses, No Tenderness/Swelling, Other (trace edema) Skin: No Rashes, No Breakdown, No Significant Lesion Neuro: Normal Speech, Normal Tone, Sensation Intact, Other (lethargic) Psych/Mental Status: Mental Status NL, Mood NL Results Lab Laboratory Tests 10/14/19 03:15 A/P-Cardiology Admission Diagnosis Acute respiratory failure Type II myocardial infarction Hypertension Acute renal failure Assessment/Plan Acute respiratory failure, status post recent extubation. Currently on Vapotherm, still lethargic, had an mucous plugs and appeared to be improving slowly. Managed by production sanitizer. Pneumonia, Pseudomonas, receiving coverage with antibiotics and managed by primary care team. Anemia, worsening H&H. Continue to monitor closely Acute renal failure secondary to acute tubular necrosis and hypotension. Sepsis, improving, continue to monitor output and renal function. Type II myocardial infarction, mild elevation in troponin probably due to hypoxemia and hypotension. Better at this time. Continue to monitor Mild coronary artery disease by cardiac catheterization in September 2018. Normal LV function. Continue to monitor History of paroxysmal atrial fibrillation/flutter, currently in sinus rhythm, continue to monitor History of uncontrolled hypertension, blood pressure is better controlled. Continue to monitor blood pressure Seizure disorder, maintained on Keppra History of EtOH abuse, chronic tobacco use, opiate addiction. Family history of atherosclerotic disease. Clinical Quality Measures DVT/VTE Risk/Contraindication: Risk Factor Score Per Nursin RFS Level Per Nursing on Admit: 4+=Very High KELLY DUGAN MD Oct 14, 2019 09:44
--- NOTE | 2019-10-14 09:53 | Physical Therapy Daily Note ---
PT Daily Note-Current Subjective Patient is alert today. During therapy patient was taken off Bipap and placed on vapotherm. Mental Status Patient Orientation: Eyes Open, Mumbles Attachments: Oxygen, Osorio Catheter, IV Transfers SCALE: Activities may be completed with or without assistive devices. 3-Xntvubtyws-juoshgg completes the activity by him/herself with no assistance from a helper. 5-Set-up or Clean-up Assistance-helper sets up or cleans up; patient completes activity. [place] assists only prior to or following the activity. 4-Supervision or Touching Assistance-helper provides verbal cues and/or touching/steadying and/or contact guard assistance as patient completes activity. Assistance may be provided throughout the activity or intermittently. 3-Partial/Moderate Assistance-helper does LESS THAN HALF the effort. [place] lifts, holds or supports trunk or limbs, but provides less than half the effort. 2-Substantial/Maximal Assistance-helper does MORE THAN HALF the effort. [place] lifts or holds trunk or limbs and provides more than half the effort. 3-Yauenbhdg-zptift does ALL the effort. Patient does none of the effort to co mplete the activity. Or, the assistance of 2 or more helpers is required for the patient to complete the activity. If activity was not attempted, code reason: 7-Patient Refused. 9-Not Applicable-not attempted and the patient did not perform the activity before the current illness, exacerbation or injury. 10-Not Attempted due to Environmental Limitations-(lack of equipment, weather restraints, etc.). 88-Not Attempted due to Medical Conditions or Safety Concerns. Roll Left & Right (QC): 1 Weight Bearing Right Lower Extremity: Right Weight Bearing/Tolerated Left Lower Extremity: Left Weight Bearing/Tolerated Gait Training Does the Patient Walk?: No and Walking Goal NOT indicated Wheelchair Training Does the Pt Use a Wheelchair?: No Exercises Supine Ex: Ankle pumps, Heel Slides, Knee to chest, Straight leg raise Supine Reps: 10 PROM performed on patient. Patient was able to move bilateral ankle with cueing. Treatments PROM Assessment Patient is able to communicate more today with mumbles and patient attempting to communicate. Patient is able to participate more in therapy today as she was able to move her ankle when asked. Patient stated she will try to help with moving her bilateral lower extremities but she is unable to at this time. Patient left leg is more stiff than her right lower extremity. PT Correction Goals Correction Goals PT Correction Goals Time Frame: Oct 12, 2019 Roll Left & Right (QC): 2 Sit to Lying (QC): 2 Lying-Sitting on Side/Bed(QC): 2 PT Plan Problem List Problem List: Activity Tolerance, Functional Strength, Safety, Balance, Gait, Transfer, Bed Mobility, ROM Treatment/Plan Treatment Plan: Continue Plan of Care Treatment Plan: Bed Mobility, Concurrent Therapy, Education, Functional Activity Lyn, Functional Strength, Gait, Safety, Therapeutic Exercise, Transfers Treatment Duration: Oct 12, 2019 Frequency: 6 times per week Estimated Hrs Per Day: .25 hour per day Patient and/or Family Agrees t: Yes Time/GCodes Time In: 808 Time Out: 822 Total Billed Treatment Time: 14 Total Billed Treatment 1 visit EX (14 minutes) MERVIN PETERSON PT Oct 14, 2019 09:53
--- NOTE | 2019-10-14 11:38 | NUR ---
PT'S MOM CALLED THIS RN TO ROOM PT NOTED TO HAVE A LARGE KNOT IN RIGHT UPPER ARM. PT C/O OF PAIN WITH MOVEMENT OF THAT EXTREMITY. DR DIAMOND NOTIFIED NEW ORDERS RECEIVED TO OBTAIN ULTRASOUND OF THAT EXTREMITY. OT WORKING WITH PT AND NOTIFIED.
--- NOTE | 2019-10-14 11:54 | Occupational Ther Daily Note ---
OT Current Status-Daily Note Subjective Pt alert, lying in bed. Pt's parents in room. Nrsg stated that pt has lump on R UE and will need to do an ultrasound, not to move R UE. Mental Status/Objective Patient Orientation: Person Attachments: Osorio Catheter, IV, Oxygen (vapotherm), Telemetry ADL-Treatment Therapy Code Descriptions/Definitions Functional [place] Measure: 0=Not Assessed/NA 4=Minimal Assistance 1=Total Assistance 5=Supervision or Setup 2=Maximal Assistance 6=Modified [place] 3=Moderate Assistance 7=Complete IndependenceSCALE: Activities may be completed with or without assistive devices. 2-Urzrruwcau-kwdqvnf completes the activity by him/herself with no assistance from a helper. 5-Set-up or Clean-up Assistance-helper sets up or cleans up; patient completes activity. [place] assists only prior to or following the activity. 4-Supervision or Touching Assistance-helper provides verbal cues and/or touching/steadying and/or contact guard assistance as patient completes activity. Assistance may be provided throughout the activity or intermittently. 3-Partial/Moderate Assistance-helper does LESS THAN HALF the effort. [place] lifts, holds or supports trunk or limbs, but provides less than half the effort. 2-Substantial/Maximal Assistance-helper does MORE THAN HALF the effort. [place] lifts or holds trunk or limbs and provides more than half the effort. 4-Iyssqloex-wkjkpx does ALL the effort. Patient does none of the effort to complete the activity. Or, the assistance of 2 or more helpers is required for the patient to complete the activity. If activity was not attempted, code reason: 7-Patient Refused. 9-Not Applicable-not attempted and the patient did not perform the activity before the current illness, exacerbation or injury. 10-Not Attempted due to Environmental Limitations-(lack of equipment, weather restraints, etc.). 88-Not Attempted due to Medical Conditions or Safety Concerns. Other Treatment AAROM completed with L UE. Pt demonstrated slight movement throughout L UE. Stiffness in joint, pt verbalized pain with movement. Edema present, slightly decreased from yesterday. After therapy, pt lying in bed with call light/phone in reach. All needs met in room. OT Senior Living Goals Senior Living Goals Time Frame: Oct 28, 2019 Eating (QC): 3 Oral Hygiene (QC): 3 Shower/Bathe Self (QC): 2 Upper Body Dressing (QC): 2 Additional Goals: 1-Demonstrate ADL Tasks, 2-Verbalize Understanding, 3- ImproveStrength/Lyn 1=Demonstrate adherence to instructed precautions during ADL tasks. 2=Patient will verbalize/demonstrate understanding of assistive devices/modifications for ADL. 3=Patient will improve strength/tolerance for activity to enable patient to perform ADL's. OT Education/Plan Problem List/Assessment Assessment: Decreased Activ Tolerance, Decreased Safety Aware, Decreased UE Strength, Dependent Transfers, Edema, Impaired Bed Mobility, Impaired Cognition, Impaired Coordination, Impaired Funct Balance, Impaired I ADL's, Impaired Self- Care Skills, Restricted Funct UE ROM Pt currently demonstrates impaired strength, mobility, and ADL functioning. Pt to benefit from skilled OT intervention for ADL training, strengthening, and mobility to increase level of independence and allow safe discharge plan. Discharge Recommendations Plan/Recommendations: Continue POC Treatment Plan/Plan of Care Patient would benefit from OT for education, treatment and training to promote independence in ADL's, mobility, safety and/or upper extremity function for ADL's. Plan of Care: ADL Retraining, Functional Mobility, UE Funct Exercise/Act Treatment Duration: Oct 28, 2019 Frequency: 5 times per week Estimated Hrs Per Day: .25 hour per day Rehab Potential: Guarded Time/GCodes Start Time: 11:30 Stop Time: 11:40 Total Time Billed (hr/min): 10 Billed Treatment Time 1 visit-EX 1 (10 min) TY REAGAN Oct 14, 2019 11:54
[2019-10-14] MEDS: ACETAMINOPHEN 325 MG TABLET PO PRN (11:58)
--- NOTE | 2019-10-14 13:05 | Diagnostic Imaging Report ---
INDICATION: Right arm pain and swelling. Grayscale, color flow duplex Doppler evaluation right upper extremity deep venous system was performed. Right internal jugular vein could be evaluated due to a right IJ line with the overlying bandage. The right subclavian vein and right axillary vein are patent. The brachial vein is patent. The basilic and cephalic veins are patent. The radial vein is patent. There is thrombus within the right ulnar vein throughout the forearm. No fluid collection is seen. IMPRESSION: Ulnar vein thrombosis. No other significant abnormality is seen. Dictated by: Dictated on workstation # [id number]
--- NOTE | 2019-10-14 13:23 | Progress Note - Hospitalist ---
Subjective HPI/CC On Admission Date Seen by Provider: Oct 14, 2019 Time Seen by Provider: 08:10 Shortness of breath Subjective/Events-last exam She is awake and alert. She is off of her BiPAP. She is wearing nasal cannula. She has no complaints or concerns. She denies any fevers or chills. She denies any shortness of breath or cough. She denies any pain complaints. Objective Exam Vital Signs Vital Signs Date Time Temp Pulse Resp B/P (MAP) Pulse Ox O2 Delivery O2 Flow Rate FiO2 10/14/19 11:32 37.2 10/14/19 10:41 Vapotherm 25.00 50.00 10/14/19 10:28 93 50 10/14/19 06:55 104 17 10/14/19 06:00 148/82 (104) Capillary Refill : Less Than 3 Seconds General Appearance: No Apparent Distress, WD/WN Neck: Normal Inspection, Supple Respiratory: Lungs Clear, Normal Breath Sounds, No Respiratory Distress, Other (wearing nasal cannula) Cardiovascular: No Murmur, Tachycardia (regular rhythm) Gastrointestinal: Normal Bowel Sounds, Non Tender, Soft Extremity: Normal Inspection, Non Tender, No Pedal Edema Neurologic/Psychiatric: Alert, Motor Weakness Skin: Normal Color, Warm/Dry Results/Procedures Lab Laboratory Tests 10/14/19 03:15 Patient resulted labs reviewed. Imaging: Reviewed Imaging Report Assessment/Plan Assessment and Plan Assess & Plan/Chief Complaint ARDS Acute respiratory failure with hypoxia COPD with acute exacerbation VAP - Prolonged intubation, including reintubation, now extubated - Pulm consulted, appreciate recs - Sputum and bronchial cultures consistently growing Pseudomonas - chest x-ray stable - Continue Bumex - Continue Merrem and Levaquin - Continue steroids - Currently on nasal cannula AFIB/Flutter with RVR HTN - Metoprolol, Vasotec - Cardiology consulted, appreciate recs - Continue Xarelto Seizure like activity - Continue Keppra RLE DVT right upper extremity DVT - Continue Xarelto Steroid-induced hyperglycemia - Continue Levemir - SSI Debility - PT/OT Alcohol abuse Morbid obesity - Clinically significant, no acute management needs Critical Care Critically Ill Patient Diagnosis/Problems Diagnosis/Problems (1) ARDS (adult respiratory distress syndrome) Status: Acute (2) Pseudomonas infection Status: Acute (3) VAP (ventilator-associated pneumonia) Status: Acute (4) DVT (deep venous thrombosis) Status: Acute Qualifiers: DVT location: upper extremity Affected thrombotic vein of extremity: ulnar Chronicity: acute Laterality: right Qualified Codes: I82.621 - Acute embolism and thrombosis of deep veins of right upper extremity Clinical Quality Measures DVT/VTE Risk/Contraindication: Risk Factor Score Per Nursin RFS Level Per Nursing on Admit: 4+=Very High ACE DIAMOND MD Oct 14, 2019 13:23
[2019-10-14] MEDS: TOBRAMYCIN (NEBCIN) 80 MG/2 ML VIAL IH SCH ×2 (14:30→21:15)
--- NOTE | 2019-10-14 15:58 | NUR ---
Recd referral to see pt, pt expressed to me her history of drug abuse and having been "clean" for 10 years, pt shared that she was concerned how this hospital stay would affect her given all the medications. I listened and encouraged her that she would only be given what she needed and that the staff would be very careful and cognizant of this. I also encouraged her that reactions are different when there is a need for medications vs using them recreationally. I encouraged her to follow up with her nurses and Drs as needed. Pt also shared her feelings through her health crisis. I had payer with Pt. Pt expressed relief at sharing.
[2019-10-14] MEDS: RIVAROXABAN 20 MG TABLET (XARELTO) PO SCH (17:24)
[2019-10-15 01:09] VITALS: BP 138/75
[2019-10-15] MEDS: RT-ALBUTEROL/IPRATROPIUM 3 ML (DUONEB) VIAL INH SCH ×6 (01:09→21:11)
[2019-10-15] MEDS: aCETylcysteine 20% (MUCOMYST) 30ML SOLN VIAL INH SCH ×6 (01:09→21:35)
[2019-10-15 02:42] LABS: BASOPHILS % (AUTO) 0 % (0-10); EOSINOPHILS % (AUTO) 0 % (0-10); HEMATOCRIT 27 % (35-52); HEMOGLOBIN 8.4 G/DL (11.5-16.0); LYMPHOCYTES # (AUTO) 0.4 X 10^3 (1.0-4.0); LYMPHOCYTES % (AUTO) 4 % (12-44); MEAN CORPUSCULAR HEMOGLOBIN 31 PG (25-34); MEAN CORPUSCULAR HGB CONC 32 G/DL (32-36); MEAN CORPUSCULAR VOLUME 99 FL (80-99); MEAN PLATELET VOLUME 9.5 FL (7.4-10.4); MONOCYTES # (AUTO) 0.2 X 10^3 (0.0-1.0); MONOCYTES % (AUTO) 2 % (0-12); NEUTROPHILS # (AUTO) 9.1 X 10^3 (1.8-7.8); NEUTROPHILS % (AUTO) 94 % (42-75); PLATELET COUNT 208 10^3/uL (130-400); RED CELL DISTRIBUTION WIDTH 14.1 % (10.0-14.5); WHITE BLOOD COUNT 9.7 10^3/uL (4.3-11.0)
[2019-10-15 02:54] LABS: BUN/CREATININE RATIO 53; CALCIUM 9.6 MG/DL (8.5-10.1); CARBON DIOXIDE 35 MMOL/L (21-32); CHLORIDE 97 MMOL/L (98-107); CREATININE SERUM 0.81 MG/DL (0.60-1.30); GFR ESTIMATED > 60; GLUCOSE 140 MG/DL (70-105); PHOSPHORUS 2.9 MG/DL (2.3-4.7); POTASSIUM 3.5 MMOL/L (3.6-5.0); SODIUM 145 MMOL/L (135-145)
--- NOTE | 2019-10-15 05:41 | Pulmonary Progress Note ---
Subjective Time Seen by a Provider: 13:55 Subjective/Events-last exam Pt appears to be doing better. Sepsis Event Evaluation Height, Weight, BMI Height: 5'5.00" Weight: 218lbs. 0.0oz. 98.509215mj; 34.07 BMI Method:Stated Exam Exam Vital Signs Date Time Temp Pulse Resp B/P (MAP) Pulse Ox O2 Delivery O2 Flow Rate FiO2 10/15/19 03:13 35.8 10/15/19 01:09 76 15 94 40.00 10/15/19 01:00 71 10/15/19 00:00 36.0 10/14/19 21:19 Vapotherm 30.00 50.00 10/14/19 21:16 95 Vapotherm 30.00 50 10/14/19 20:00 36.8 10/14/19 20:00 98 19 137/75 (95) 92 Vapotherm 30.00 55.00 10/14/19 20:00 98 Vapotherm 55.00 30 10/14/19 19:00 100 10/14/19 18:47 92 Vapotherm 30.00 55 10/14/19 17:39 Vapotherm 30.00 55.00 10/14/19 16:05 36.4 96 20 132/67 (88) 91 Vapotherm 25.00 25.00 10/14/19 14:30 91 Vapotherm 25.00 50 10/14/19 12:41 93 10/14/19 12:00 102 20 131/74 (93) 93 Vapotherm 25.00 50.00 10/14/19 11:32 37.2 10/14/19 11:00 94 14 138/75 (96) 93 Vapotherm 25.00 50.00 10/14/19 10:41 Vapotherm 25.00 50.00 10/14/19 10:28 93 Vapotherm 35.00 50 10/14/19 10:00 96 15 149/82 (104) 92 Vapotherm 35.00 50.00 10/14/19 09:00 112 16 140/76 (97) 95 Vapotherm 35.00 50.00 10/14/19 08:20 98 NIV Bilevel 40 10/14/19 08:13 Vapotherm 35.00 50.00 10/14/19 08:00 111 19 144/80 (101) 95 NIV Bilevel 50.00 10/14/19 07:30 36.2 10/14/19 07:00 106 17 94 NIV Bilevel 50.00 10/14/19 06:55 104 17 94 40.00 10/14/19 06:46 105 10/14/19 06:00 101 17 148/82 (104) 95 NIV Bilevel 50.00 I & O 10/15/19 07:00 Intake Total 1130 ml Output Total 1925 ml Balance -795 ml Height & Weight Height: 5'5.00" Weight: 218lbs. 0.0oz. 98.210540jx; 34.07 BMI Method:Stated General Appearance: No Apparent Distress, WD/WN HEENT: PERRL/EOMI, Other (wearing BiPAP) Neck: Normal Inspection, Supple Respiratory: Lungs Clear, Normal Breath Sounds, No Respiratory Distress, Other (wearing nasal cannula) Cardiovascular: No Murmur, Tachycardia (regular rhythm) Capillary Refill: Less Than 3 Seconds Gastrointestinal: soft, no organomegaly, no pulsatile mass Extremity: Normal Inspection, Non Tender, No Pedal Edema Neurologic/Psychiatric: Alert, Motor Weakness Skin: Normal Color, Warm/Dry Lymphatic: No Adenopathy Results Lab Laboratory Tests 10/14/19 03:15 10/15/19 02:29 Assessment/Plan Assessment/Plan Acute respiratory failure with hypoxia - reintubated probably secondary to mucous plugging vs aspiration. -s/p bronchoscopy -Currently on BiPAP will trial back to [place]. Continue BiPAP QHS -PT is DNR now -Solumedrol to 40 Q 6 - Bumex -CT of chest reviewed Edgar Vickers. Pseudomonus PNA -Continue Merrem, and Deniz SVNS -- -Repeat cultures pending COPDAE -SVNS q 4 Afib/flutter RLE DVT -Lovenox Alcohol abuse Morbid obesity JACLYN SAVAGE DO Oct 15, 2019 05:41
[2019-10-15] MEDS: BUMETANIDE 1 MG/4 ML (BUMEX) VIAL IV SCH (06:19)
[2019-10-15] MEDS: MEROPENEM 500 MG in WATER (STERILE) FOR INJECTION 10 ML IV SCH ×4 (06:19→23:39)
[2019-10-15] MEDS: methylPREDNISolone 40 MG/ML (Solu-MEDROL) VIAL IV SCH ×4 (06:19→23:39)
[2019-10-15] MEDS: inSUlin ASPART (NovoLOG) 1 UNIT/0.01 ML (CHARGE PER UNIT) SC SCH ×4 (06:20→23:38)
[2019-10-15] MEDS: guaiFENesin SYRUP 100 MG/5 ML 10 ML (ROBITUSSIN SF) PO SCH ×3 (06:20→23:25)
[2019-10-15] MEDS: POTASSIUM CL 10MEQ/50ML IVPB 50 ML IV SCH ×2 (06:20→07:59)
[2019-10-15 08:00] VITALS: BP 148/94
[2019-10-15] MEDS: KCL 20 MEQ POWDER FOR ORAL SOLUTION PO SCH ×2 (08:15→23:24)
[2019-10-15] MEDS: LEVOFLOXACIN 750 MG/150 ML IV 150 ML IV SCH (08:16)
[2019-10-15] MEDS: amLODIPine 5 MG (NORVASC) TAB PO SCH (08:16)
[2019-10-15] MEDS: guaiFENesin (MUCINEX) 600 MG TAB PO SCH ×2 (08:16→23:23)
[2019-10-15] MEDS: AMIODARONE 200 MG (CORDARONE) TAB PO SCH ×2 (08:16→23:24)
[2019-10-15] MEDS: FAMOTIDINE 20 MG (PEPCID) TABLET PO SCH ×2 (08:17→23:25)
[2019-10-15] MEDS: lisINopril 10 MG (PRINIVIL) TABLET PO SCH (08:17)
[2019-10-15] MEDS: LEVETIRACETAM 500 MG (KEPPRA) TAB PO SCH ×2 (08:17→23:23)
[2019-10-15] MEDS: meTOprolol TARTRATE 50 MG (LOPRESSOR) TAB PO SCH ×2 (08:17→23:25)
--- NOTE | 2019-10-15 08:33 | Diagnostic Imaging Report ---
INDICATION: Shortness of breath. Portable chest 4:53 AM FINDINGS: Right IJ central line tip projects over the SVC. There are small bilateral pleural effusions. IMPRESSION: Small pleural effusions with probable associated basilar atelectasis. No appreciable change compared to the previous day. Dictated by: Dictated on workstation # [id number]
[2019-10-15] MEDS: morphine INJ 4 MG/ML 1 ML (VIAL/SYRINGE) IVP PRN ×3 (08:44→23:39)
--- NOTE | 2019-10-15 09:55 | Progress Note - Hospitalist ---
Subjective HPI/CC On Admission Date Seen by Provider: Oct 15, 2019 Time Seen by Provider: 09:53 Shortness of breath Subjective/Events-last exam Pt reports doing well. Having some pain in her arm. Would like another warm pack. Family at bedside. Objective Exam Vital Signs Vital Signs Date Time Temp Pulse Resp B/P (MAP) Pulse Ox O2 Delivery O2 Flow Rate FiO2 10/15/19 08:00 35.7 93 20 148/94 (112) 93 Vapotherm 30.00 50.00 10/15/19 08:00 50 Capillary Refill : Less Than 3 Seconds General Appearance: No Apparent Distress, Chronically ill Respiratory: Lungs Clear, Other (on vapotherm) Cardiovascular: Regular Rate, Rhythm, No Murmur Gastrointestinal: Normal Bowel Sounds, Non Tender, Soft Extremity: Swelling Neurologic/Psychiatric: Alert, Oriented x3 Results/Procedures Lab Laboratory Tests 10/15/19 02:29 Patient resulted labs reviewed. Imaging: Reviewed Imaging Report Assessment/Plan Assessment and Plan Assess & Plan/Chief Complaint ARDS Acute respiratory failure with hypoxia COPD with acute exacerbation VAP - Prolonged intubation, including reintubation, now extubated on Vapotherm - Pulm consulted, appreciate recs - Sputum and bronchial cultures consistently growing Pseudomonas - Continue Bumex - Continue Merrem and Levaquin - Continue steroids - Currently on nasal cannula AFIB/Flutter with RVR HTN - Metoprolol, Vasotec - Cardiology consulted, appreciate recs - Continue Xarelto Seizure like activity - Continue Keppra RLE DVT right upper extremity DVT - Continue Xarelto Steroid-induced hyperglycemia - Continue Levemir - SSI Debility - PT/OT Alcohol abuse Morbid obesity - Clinically significant, no acute management needs Critical Care Critically Ill Patient Diagnosis/Problems Diagnosis/Problems (1) ARDS (adult respiratory distress syndrome) Status: Acute (2) Alcohol use Status: Acute (3) Atrial fibrillation with rapid ventricular response Status: Acute (4) Bilateral pneumonia Status: Acute Qualifiers: Pneumonia type: due to unspecified organism Lung location: lower lobe of lung Qualified Codes: J18.1 - Lobar pneumonia, unspecified organism (5) Acute respiratory failure Status: Acute Qualifiers: Respiratory failure complication: hypoxia Qualified Codes: J96.01 - Acute respiratory failure with hypoxia Clinical Quality Measures DVT/VTE Risk/Contraindication: Risk Factor Score Per Nursin RFS Level Per Nursing on Admit: 4+=Very High BROOKLYN DUNLAP MD Oct 15, 2019 09:55
--- NOTE | 2019-10-15 10:48 | Cardiology Progress Note ---
Subjective Date Seen by Provider: Oct 15, 2019 Time Seen by Provider: 10:47 Subjective/Events-last exam Patient is laying down in bed, feeling better. No new complaint Review of Systems General: No Chills, No Night Sweats, No Fatigue, No Malaise, No Appetite, No Other HEENT: No Head Aches, No Visual Changes, No Eye Pain, No Ear Pain, No Dysphasia, No Sinus Congestion, No Post Nasal Drip, No Sore Throat, No Other Pulmonary: Dyspnea; No Cough, No Pleuritic Chest Pain, No Other Cardiovascular: No: Chest Pain, Palpitations, Orthopnea, Paroxysmal Noc. Dyspnea, Edema, Lt Headedness, Other Objective-Cardiology Exam Last Set of Vital Signs Vital Signs 10/15/19 08:00 Temp 35.7 Pulse 93 Resp 20 B/P (MAP) 148/94 (112) Pulse Ox 93 O2 Delivery Vapotherm O2 Flow Rate 30.00 50.00 FiO2 50 Capillary Refill : Less Than 3 Seconds I&O Intake and Output 10/15/19 00:00 Intake Total 1130 ml Output Total 2225 ml Balance -1095 ml Intake Oral 960 ml IV Total 170 ml Output Urine Total 2225 ml General: Alert, Oriented X3, Cooperative, Moderate Distress HEENT: Atraumatic, PERRLA Neck: Supple, No JVD, No Thyromegaly Lungs: Normal Air Movement, Other (bilateral rhonchi) Heart: Regular Rate, Normal S1, Normal S2, No Murmurs Abdomen: Normal Bowel Sounds, Soft, No Tenderness, No Hepatosplenomegaly, No Masses Extremities: No Clubbing, No Cyanosis, Normal Pulses, No Tenderness/Swelling, Other (trace edema) Skin: No Rashes, No Breakdown, No Significant Lesion Neuro: Normal Speech, Normal Tone, Sensation Intact, Other (lethargic) Psych/Mental Status: Mental Status NL, Mood NL Results Lab Laboratory Tests 10/15/19 02:29 A/P-Cardiology Admission Diagnosis Acute respiratory failure Type II myocardial infarction Hypertension Acute renal failure Assessment/Plan Acute respiratory failure, status post recent extubation. Currently on Vapotherm, still lethargic, had an mucous plugs and appeared to be improving slowly. Managed by soda room operator. Pneumonia, Pseudomonas, receiving coverage with antibiotics and managed by primary care team. Anemia, worsening H&H. Followed and managed by primary care physician Acute renal failure secondary to acute tubular necrosis and hypotension. Sepsis, improving, continue to monitor output and renal function. Type II myocardial infarction, mild elevation in troponin probably due to hypoxemia and hypotension. Better at this time. Continue to monitor Mild coronary artery disease by cardiac catheterization in September 2018. Normal LV function. Continue to monitor History of paroxysmal atrial fibrillation/flutter, currently in sinus rhythm, continue to monitor History of uncontrolled hypertension, blood pressure is better controlled. Continue to monitor blood pressure Seizure disorder, maintained on Keppra History of EtOH abuse, chronic tobacco use, opiate addiction. Family history of atherosclerotic disease. Clinical Quality Measures DVT/VTE Risk/Contraindication: Risk Factor Score Per Nursin RFS Level Per Nursing on Admit: 4+=Very High KELLY DUGAN MD Oct 15, 2019 10:48
[2019-10-15 12:00] VITALS: BP 145/87
--- NOTE | 2019-10-15 13:24 | NUR ---
THIS RN ASSUMING CARE AFTER RECEIVING REPORT FROM MIKE BALTAZAR SECONDARY TO STAFFING. PT DENIES ANY NEEDS AT THIS TIME.
[2019-10-15 16:00] VITALS: BP 133/79
[2019-10-15] MEDS: RIVAROXABAN 20 MG TABLET (XARELTO) PO SCH (18:58)
[2019-10-15 20:00] VITALS: BP 129/79
[2019-10-15] MEDS: TOBRAMYCIN (NEBCIN) 80 MG/2 ML VIAL IH SCH (22:10)
[2019-10-16] VITALS (7 sets, daily range): BP systolic 130–165; BP diastolic 60–91
[2019-10-16] MEDS: RT-ALBUTEROL/IPRATROPIUM 3 ML (DUONEB) VIAL INH SCH ×6 (02:17→22:26)
[2019-10-16] MEDS: aCETylcysteine 20% (MUCOMYST) 30ML SOLN VIAL INH SCH (02:20)
[2019-10-16 03:45] LABS: BASOPHILS % (AUTO) 0 % (0-10); EOSINOPHILS % (AUTO) 0 % (0-10); HEMATOCRIT 26 % (35-52); HEMOGLOBIN 8.3 G/DL (11.5-16.0); LYMPHOCYTES # (AUTO) 0.3 X 10^3 (1.0-4.0); LYMPHOCYTES % (AUTO) 2 % (12-44); MEAN CORPUSCULAR HEMOGLOBIN 32 PG (25-34); MEAN CORPUSCULAR HGB CONC 32 G/DL (32-36); MEAN CORPUSCULAR VOLUME 99 FL (80-99); MEAN PLATELET VOLUME 9.5 FL (7.4-10.4); MONOCYTES # (AUTO) 0.4 X 10^3 (0.0-1.0); MONOCYTES % (AUTO) 4 % (0-12); NEUTROPHILS # (AUTO) 10.6 X 10^3 (1.8-7.8); NEUTROPHILS % (AUTO) 94 % (42-75); PLATELET COUNT 219 10^3/uL (130-400); RED CELL DISTRIBUTION WIDTH 14.2 % (10.0-14.5); WHITE BLOOD COUNT 11.3 10^3/uL (4.3-11.0)
[2019-10-16 04:01] LABS: BUN/CREATININE RATIO 50; CALCIUM 9.7 MG/DL (8.5-10.1); CARBON DIOXIDE 31 MMOL/L (21-32); CHLORIDE 102 MMOL/L (98-107); CREATININE SERUM 0.78 MG/DL (0.60-1.30); GFR ESTIMATED > 60; GLUCOSE 162 MG/DL (70-105); MAGNESIUM 2.1 MG/DL (1.6-2.4); PHOSPHORUS 2.7 MG/DL (2.3-4.7); SODIUM 147 MMOL/L (135-145)
[2019-10-16] MEDS: inSUlin ASPART (NovoLOG) 1 UNIT/0.01 ML (CHARGE PER UNIT) SC SCH ×4 (05:28→22:13)
[2019-10-16] MEDS: BUMETANIDE 1 MG/4 ML (BUMEX) VIAL IV SCH (06:10)
[2019-10-16] MEDS: guaiFENesin SYRUP 100 MG/5 ML 10 ML (ROBITUSSIN SF) PO SCH ×3 (06:10→22:14)
[2019-10-16] MEDS: MEROPENEM 500 MG in WATER (STERILE) FOR INJECTION 10 ML IV SCH ×6 (06:10→23:42)
[2019-10-16] MEDS: methylPREDNISolone 40 MG/ML (Solu-MEDROL) VIAL IV SCH ×4 (06:10→23:42)
--- NOTE | 2019-10-16 07:55 | Diagnostic Imaging Report ---
INDICATION: Dyspnea. TECHNIQUE: Single view chest 2:56 AM. CORRELATION STUDY: 10/15/2019 FINDINGS: Bilateral pleural effusions are present, generally stable. Likely associated atelectasis or infiltrate both lung bases. Heart size somewhat obscured but appears generally stable. Vasculature appears to be within normal limits. Right IJ central line tip over the low SVC, stable. IMPRESSION: 1. Generally stable appearance but small to moderate bilateral pleural effusions associated consolidation at the lung bases. Dictated by: Dictated on workstation # [id number]
[2019-10-16] MEDS: meTOprolol TARTRATE 50 MG (LOPRESSOR) TAB PO SCH ×2 (09:05→20:02)
[2019-10-16] MEDS: amLODIPine 5 MG (NORVASC) TAB PO SCH (09:05)
[2019-10-16] MEDS: FAMOTIDINE 20 MG (PEPCID) TABLET PO SCH ×2 (09:06→20:01)
[2019-10-16] MEDS: LEVETIRACETAM 500 MG (KEPPRA) TAB PO SCH ×2 (09:06→20:01)
[2019-10-16] MEDS: guaiFENesin (MUCINEX) 600 MG TAB PO SCH ×2 (09:06→20:01)
[2019-10-16] MEDS: lisINopril 10 MG (PRINIVIL) TABLET PO SCH (09:06)
[2019-10-16] MEDS: KCL 20 MEQ POWDER FOR ORAL SOLUTION PO SCH ×2 (09:06→20:02)
--- NOTE | 2019-10-16 09:06 | Progress Note - Hospitalist ---
Subjective HPI/CC On Admission Date Seen by Provider: Oct 16, 2019 Time Seen by Provider: 09:04 Shortness of breath Subjective/Events-last exam Pt reports feeling well. Family at bedside. No complaints or concerns. Plan to transfer to 4th floor today. Objective Exam Vital Signs Vital Signs Date Time Temp Pulse Resp B/P (MAP) Pulse Ox O2 Delivery O2 Flow Rate FiO2 10/16/19 08:00 98 18 144/86 (105) 94 Vapotherm 30.00 50.00 10/16/19 04:00 36.2 10/16/19 03:02 50 Capillary Refill : Less Than 3 Seconds General Appearance: No Apparent Distress, Chronically ill Respiratory: Lungs Clear, No Accessory Muscle Use, No Respiratory Distress Cardiovascular: Regular Rate, Rhythm, No Murmur Gastrointestinal: Normal Bowel Sounds, Non Tender, Soft Neurologic/Psychiatric: Alert, Oriented x3 Results/Procedures Lab Laboratory Tests 10/16/19 03:29 Patient resulted labs reviewed. Imaging: Reviewed Imaging Report Assessment/Plan Assessment and Plan Assess & Plan/Chief Complaint ARDS Acute respiratory failure with hypoxia COPD with acute exacerbation VAP - Prolonged intubation, including reintubation, now extubated on Vapotherm - Pulm consulted, appreciate recs - Sputum and bronchial cultures consistently growing Pseudomonas - Repeat sputum as has had persistent growth despite abx - Continue Bumex - Continue Merrem and Levaquin - Continue steroids AFIB/Flutter with RVR HTN - Metoprolol, Vasotec - Cardiology consulted, appreciate recs - Continue Xarelto Seizure like activity - Continue Keppra RLE DVT right upper extremity DVT - Continue Xarelto Steroid-induced hyperglycemia - Continue Levemir - SSI Debility - PT/OT - IRU consult Alcohol abuse Morbid obesity - Clinically significant, no acute management needs Critical Care Critically Ill Patient Diagnosis/Problems Diagnosis/Problems (1) ARDS (adult respiratory distress syndrome) Status: Acute (2) Alcohol use Status: Acute (3) Atrial fibrillation with rapid ventricular response Status: Acute (4) Bilateral pneumonia Status: Acute Qualifiers: Pneumonia type: due to unspecified organism Lung location: lower lobe of lung Qualified Codes: J18.1 - Lobar pneumonia, unspecified organism (5) Acute respiratory failure Status: Acute Qualifiers: Respiratory failure complication: hypoxia Qualified Codes: J96.01 - Acute respiratory failure with hypoxia Clinical Quality Measures DVT/VTE Risk/Contraindication: Risk Factor Score Per Nursin RFS Level Per Nursing on Admit: 4+=Very High BROOKLYN DUNLAP MD Oct 16, 2019 09:06
[2019-10-16] MEDS: LEVOFLOXACIN 750 MG/150 ML IV 150 ML IV SCH (09:07)
--- NOTE | 2019-10-16 09:23 | Cardiology Progress Note ---
Subjective Date Seen by Provider: Oct 16, 2019 Time Seen by Provider: 09:22 Subjective/Events-last exam Patient is laying down in bed, still on Vapotherm. Feeling better. Review of Systems General: No Chills, No Night Sweats; Fatigue, Malaise; No Appetite, No Other HEENT: No Head Aches, No Visual Changes, No Eye Pain, No Ear Pain, No Dysphasia, No Sinus Congestion, No Post Nasal Drip, No Sore Throat, No Other Pulmonary: Dyspnea; No Cough, No Pleuritic Chest Pain, No Other Cardiovascular: No: Chest Pain, Palpitations, Orthopnea, Paroxysmal Noc. Dyspnea, Edema, Lt Headedness, Other Objective-Cardiology Exam Last Set of Vital Signs Vital Signs 10/16/19 10/16/19 10/16/19 03:02 04:00 08:00 Temp 36.2 Pulse 98 Resp 18 B/P (MAP) 144/86 (105) Pulse Ox 94 O2 Delivery Vapotherm O2 Flow Rate 30.00 50.00 FiO2 50 Capillary Refill : Less Than 3 Seconds I&O Intake and Output 10/16/19 00:00 Intake Total 860 ml Output Total 2025 ml Balance -1165 ml Intake Oral 860 ml Output Urine Total 2025 ml General: Alert, Oriented X3, Cooperative, Moderate Distress HEENT: Atraumatic, PERRLA Neck: Supple, No JVD, No Thyromegaly Lungs: Normal Air Movement, Other (bilateral rhonchi) Heart: Regular Rate, Normal S1, Normal S2, No Murmurs Abdomen: Normal Bowel Sounds, Soft, No Tenderness, No Hepatosplenomegaly, No Masses Extremities: No Clubbing, No Cyanosis, Normal Pulses, No Tenderness/Swelling, Other (trace edema) Skin: No Rashes, No Breakdown, No Significant Lesion Neuro: Normal Speech, Normal Tone, Sensation Intact, Other (lethargic) Psych/Mental Status: Mental Status NL, Mood NL Results Lab Laboratory Tests 10/16/19 03:29 A/P-Cardiology Admission Diagnosis Acute respiratory failure Type II myocardial infarction Hypertension Acute renal failure Assessment/Plan Acute respiratory failure, status post recent extubation. Currently on Vapotherm, still lethargic, had an mucous plugs and appeared to be improving slowly. Managed by environmental studies professor. Pneumonia, Pseudomonas, receiving coverage with antibiotics and managed by primary care team. Anemia, worsening H&H. Followed and managed by primary care physician Acute renal failure secondary to acute tubular necrosis and hypotension. Sepsis, improving, continue to monitor output and renal function. Type II myocardial infarction, mild elevation in troponin probably due to hypoxemia and hypotension. Better at this time. Continue to monitor Mild coronary artery disease by cardiac catheterization in September 2018. Normal LV function. Continue to monitor History of paroxysmal atrial fibrillation/flutter, currently in sinus rhythm, continue to monitor History of uncontrolled hypertension, blood pressure is better controlled. Continue to monitor blood pressure Seizure disorder, maintained on Keppra History of EtOH abuse, chronic tobacco use, opiate addiction. Family history of atherosclerotic disease. Clinical Quality Measures DVT/VTE Risk/Contraindication: Risk Factor Score Per Nursin RFS Level Per Nursing on Admit: 4+=Very High KELLY DUGAN MD Oct 16, 2019 09:23
[2019-10-16] MEDS: TOBRAMYCIN (NEBCIN) 80 MG/2 ML VIAL IH SCH ×2 (09:39→22:27)
--- NOTE | 2019-10-16 09:55 | NUR ---
REPORT GIVEN TO GIOVANNY MASTERS AND PT TRANSPORTED TO ROOM 421. PT TRANSPORTED WITH OXYMASK AT 10LPM WITH SATS MAINTAINING 95%. RT SET UP WITH VAPOTHERM AND BIPAP IN ROOM 421. ALL PERSONAL BELONGINGS TAKEN WITH PATIENT. FAMILY MEMBERS X2 PRESENT DURING TRANSFER. PT VOICES NO COMPLAINTS AND TRANSFERRED WITHOUT COMPLICATIONS VIA BED.
[2019-10-16] MEDS: AMIODARONE 200 MG (CORDARONE) TAB PO SCH ×2 (14:06→20:01)
[2019-10-16 16:55] LABS: ABG BASE EXCESS 13.2 MMOL/L (-2.5-2.5); ABG OXYGEN SATURATION 95 % (94-100); ABG PCO2 43 MMHG (35-45); ABG PH 7.55 (7.37-7.43); ABG PO2 69 MMHG (79-93); ABG TCO2 38.4 MMOL/L (21.0-31.0)
[2019-10-16 16:59] LABS: ALLENS TEST POSITIVE; INSPIRED O2 40% 25L; PATIENT TEMP 36.8; VENTILATOR NO
[2019-10-16] MEDS: RIVAROXABAN 20 MG TABLET (XARELTO) PO SCH (18:01)
--- NOTE | 2019-10-16 18:11 | Diagnostic Imaging Report ---
INDICATION: Altered mental status. Confusion. TECHNIQUE: Routine non contrast-enhanced axial images were obtained from the skull base to the vertex. Auto Exposure Controls were utilized during the CT exam to meet ALARA standards for radiation dose reduction COMPARISON: None. FINDINGS: The ventricles and cortical sulci are diffusely prominent, compatible with age-related volume loss. There are confluent areas of abnormal, low attenuation in the periventricular white matter. This is consistent with chronic small vessel ischemic changes. There is no midline shift or mass-effect. No acute intra-axial hemorrhage is seen. There are no abnormal areas of increased or decreased density to suggest acute hemorrhage or edema. No extra-axial masses or collections are present. The bony calvarium is intact. The visualized paranasal sinuses are unremarkable. The mastoid air cells are partially opacified on the left. IMPRESSION: 1. No acute intracranial abnormality. No CT evidence of mass, acute infarct or intracranial hemorrhage. 2. Chronic small vessel ischemic changes in the deep white matter. Report was called to patient's nurse in the [place] [facility] at 6:01 p.m., by pebbles. Dictated by: Dictated on workstation # [id number]
--- NOTE | 2019-10-16 18:50 | NUR ---
At approximately 1625, Patient was reported to have AMS to this nurse by RT. Patient is unable to tell where she is at and is unable to recall daughters name. Patient stares off into space, then will re-focus and say "whoo" or "wee". Dr. Chopra notified. ABG's and blood sugar orders. Lab results reported to Dr. Chopra. Stat CT w/o contrast to rule out stroke ordered. Results sent to Dr. Chopra. After patient returns from CT, seems to be able to recall details better, but still having a hard time finding words at times. No further orders at this time, will continue to monitor.
[2019-10-17] VITALS: BP 133/65
[2019-10-17] MEDS: RT-ALBUTEROL/IPRATROPIUM 3 ML (DUONEB) VIAL INH SCH ×6 (02:26→21:49)
[2019-10-17 04:00] VITALS: BP 136/70
[2019-10-17] MEDS: BUMETANIDE 1 MG/4 ML (BUMEX) VIAL IV SCH (05:07)
[2019-10-17] MEDS: MEROPENEM 500 MG in WATER (STERILE) FOR INJECTION 10 ML IV SCH ×4 (05:07→23:57)
[2019-10-17] MEDS: methylPREDNISolone 40 MG/ML (Solu-MEDROL) VIAL IV SCH (05:07)
[2019-10-17] MEDS: guaiFENesin SYRUP 100 MG/5 ML 10 ML (ROBITUSSIN SF) PO SCH ×3 (05:20→21:51)
[2019-10-17 05:35] LABS: BASOPHILS % (AUTO) 0 % (0-10); EOSINOPHILS % (AUTO) 0 % (0-10); HEMATOCRIT 27 % (35-52); HEMOGLOBIN 8.7 G/DL (11.5-16.0); LYMPHOCYTES # (AUTO) 0.3 X 10^3 (1.0-4.0); LYMPHOCYTES % (AUTO) 3 % (12-44); MEAN CORPUSCULAR HEMOGLOBIN 31 PG (25-34); MEAN CORPUSCULAR HGB CONC 32 G/DL (32-36); MEAN CORPUSCULAR VOLUME 98 FL (80-99); MEAN PLATELET VOLUME 9.9 FL (7.4-10.4); MONOCYTES # (AUTO) 0.3 X 10^3 (0.0-1.0); MONOCYTES % (AUTO) 3 % (0-12); NEUTROPHILS # (AUTO) 10.1 X 10^3 (1.8-7.8); NEUTROPHILS % (AUTO) 94 % (42-75); PLATELET COUNT 236 10^3/uL (130-400); WHITE BLOOD COUNT 10.8 10^3/uL (4.3-11.0)
[2019-10-17 05:57] LABS: BUN/CREATININE RATIO 53; CALCIUM 9.6 MG/DL (8.5-10.1); CARBON DIOXIDE 31 MMOL/L (21-32); CHLORIDE 103 MMOL/L (98-107); CREATININE SERUM 0.74 MG/DL (0.60-1.30); GFR ESTIMATED > 60; GLUCOSE 104 MG/DL (70-105); MAGNESIUM 2.1 MG/DL (1.6-2.4); POTASSIUM 3.6 MMOL/L (3.6-5.0); SODIUM 147 MMOL/L (135-145)
[2019-10-17] MEDS: inSUlin ASPART (NovoLOG) 1 UNIT/0.01 ML (CHARGE PER UNIT) SC SCH ×4 (06:23→21:52)
--- NOTE | 2019-10-17 07:56 | Diagnostic Imaging Report ---
INDICATION: Dyspnea. Upright portable AP view of the chest is obtained with comparison made study of 10/16/2019. FINDINGS: There is blunting of both costophrenic sulci compatible with mild bilateral pleural fluid. There is also mild bilateral basilar atelectasis. No pneumothorax or consolidation is identified. Right jugular central venous catheter remains in place with tip projecting over the mid superior vena cava. IMPRESSION: Stable mild bilateral basilar atelectasis and pleural fluid. Dictated by: Dictated on workstation # [id number]
[2019-10-17 08:00] VITALS: BP 132/64
[2019-10-17] MEDS: lisINopril 10 MG (PRINIVIL) TABLET PO SCH (08:31)
[2019-10-17] MEDS: FAMOTIDINE 20 MG (PEPCID) TABLET PO SCH ×2 (08:31→21:52)
[2019-10-17] MEDS: meTOprolol TARTRATE 50 MG (LOPRESSOR) TAB PO SCH ×2 (08:31→21:52)
[2019-10-17] MEDS: KCL 20 MEQ POWDER FOR ORAL SOLUTION PO SCH ×2 (08:31→21:52)
[2019-10-17] MEDS: LEVOFLOXACIN 750 MG/150 ML IV 150 ML IV SCH (08:31)
[2019-10-17] MEDS: guaiFENesin (MUCINEX) 600 MG TAB PO SCH ×2 (08:31→21:52)
[2019-10-17] MEDS: amLODIPine 5 MG (NORVASC) TAB PO SCH (08:31)
[2019-10-17] MEDS: AMIODARONE 200 MG (CORDARONE) TAB PO SCH ×2 (08:31→21:52)
[2019-10-17] MEDS: LEVETIRACETAM 500 MG (KEPPRA) TAB PO SCH ×2 (08:37→21:52)
--- NOTE | 2019-10-17 08:45 | Progress Note - Cardiology ---
Cardiology SOAP Progress Note Objective: I&O/Vital Signs 10/18/19 10/18/19 10/18/19 10/18/19 00:05 00:56 01:41 04:15 Temp 37.2 36.8 Pulse 87 90 97 Resp 16 16 B/P (MAP) 127/61 (83) 132/63 (86) Pulse Ox 92 92 92 O2 Delivery Vapotherm Vapotherm Vapotherm O2 Flow Rate 18.00 18.00 18.00 40.00 40.00 FiO2 40 10/18/19 10/18/19 10/18/19 07:00 08:00 08:00 Temp 37.1 Pulse 96 103 Resp 18 B/P (MAP) 149/78 (101) Pulse Ox 94 94 O2 Delivery Vapotherm Vapotherm O2 Flow Rate 18.00 18.00 40.00 FiO2 40 10/18/19 00:00 Intake Total 760 ml Output Total 1350 ml Balance -590 ml Weight (Pounds): 218 Weight (Ounces): 0.0 Weight (Calculated Kilograms): 98.034536 Constitutional: AAO x 3, well-developed, well-nourished Respiratory: No accessory muscle use, No respiratory distress; chest expansion is symmetric, chest is bilaterally symmetric (good air entry), other Cardiovascular: regular rate-rhythm; No JVD; S1 and S2, systolic murmur (soft MARIE at card base) Gastrointestional: No tender, No soft, No guarding, No rebound; audible bowel sounds Extremities: other (mod bilat LE swelling); No clubbing, No cyanosis Neurologic/Psychiatric: oriented x 3, other (moves all limbs equally) Skin: warm/dry; No rash on exposed areas, No ulcerations on exposed areas Results/Procedures: Labs Laboratory Tests 10/17/19 11:34: Glucometer 213H 10/17/19 16:07: Glucometer 136H 10/17/19 20:26: Glucometer 183H 10/18/19 05:18: White Blood Count 11.6H, Red Blood Count 2.88L, Hemoglobin 8.9L, Hematocrit 28L, Mean Corpuscular Volume 98, Mean Corpuscular Hemoglobin 31, Mean Corpuscular Hemoglobin Concent 31L, Red Cell Distribution Width 14.3, Platelet Count 248, Mean Platelet Volume 9.7, Neutrophils (%) (Auto) 94H, Lymphocytes (%) (Auto) 3L, Monocytes (%) (Auto) 3, Eosinophils (%) (Auto) 0, Basophils (%) (Auto) 0, Neutrophils # (Auto) 10.9H, Lymphocytes # (Auto) 0.3L, Monocytes # (Auto) 0.4, Eosinophils # (Auto) 0.0, Basophils # (Auto) 0.0, Sodium Level 143, Potassium Level 4.3, Chloride Level 102, Carbon Dioxide Level 29, Anion Gap 12, Blood Urea Nitrogen 35H, Creatinine 0.72, Estimat Glomerular Filtration Rate > 60, BUN/Creatinine Ratio 49, Glucose Level 171H, Calcium Level 9.6, Phosphorus Level 2.9, Magnesium Level 2.1 Microbiology 10/08/19 Mycobacterial Culture - Preliminary, Resulted 10/07/19 C. difficile DNA Amplification - Final, Complete 09/26/19 Blood Culture - Final, Complete No growth Procedures NAME: ZE[facility] REC#: [id number] PT STATUS: ADM IN : 1965 PHYSICIAN: JACLYN SAVAGE DO ADMIT DATE: 09/19/19 Signed Date of Exam:10/17/19 CHEST 1 VIEW, AP/PA ONLY INDICATION: Dyspnea. Upright portable AP view of the chest is obtained with comparison made study of 10/16/2019. FINDINGS: There is blunting of both costophrenic sulci compatible with mild bilateral pleural fluid. There is also mild bilateral basilar atelectasis. No pneumothorax or consolidation is identified. Right jugular central venous catheter remains in place with tip projecting over the mid superior vena cava. IMPRESSION: Stable mild bilateral basilar atelectasis and pleural fluid. Dictated by: Dictated on workstation # [id number] Dict: 10/17/19 0753 Trans: 10/17/19 0757 [id number] Interpreted by: TOBY MARTIN MD Electronically signed by: TOBY MARTIN MD 10/17/19 0757 A/P: Assessment: Acute resp failure, likely due to COPD exacerbated by aspiration pneumonia Acute renal failure, likely ATN due to hypotension due to sepsis, resolved. Now appears to have some degree of pre-renal azotemia HTN - improved PAF/flutter, currently NSR Elevated troponin at presentation - likely type 2 MA d/t hypoxia Card cath of 09/07/18: minimal CAD, LVEF 70-75%, elevated LVEDP Echo of 09/20/19: LVEF 50-55%, RVSP 35 mmHg H/o opiate addiction ETOH abuse Chronic tobacco use Fam h/o early CAD Hyperlipidemia Borderline DM II (fasting blood glucose on 09/07/18) Carotid u/s on 01/05/19: no significant dz Plan: * Complex management due to multiple comorbidities that are outlined above * Replenish lytes as needed * Monitor labs * BP improved - continue current regimen * Mild anemia - management per medical services DELROY TURNER Oct 17, 2019 08:45
--- NOTE | 2019-10-17 08:49 | Physical Therapy Daily Note ---
PT Daily Note-Current Subjective Pt agreeable to PT session. States she is afraid of being an invalid for the rest of her life as she has been so Independent and active most of her life. Pain Numeric Pain Scale: 10-Worst Possible Pain Location: Right Location Body Site: Arm Comment: RUE constant, joints with movement, nsg aware and giving pain meds Appearance Pt in bed awake and alert upon arrival and at end of session, call light, phone and bedside table within reach, nurse present Mental Status Patient Orientation: Person, Place, Time (required cuing as pt thought it was evening), Eyes Open, Situation Attachments: SCD's, Oxygen (vapotherm), Osorio Catheter, IV Transfers SCALE: Activities may be completed with or without assistive devices. 8-Vxokyuoxes-slulnyk completes the activity by him/herself with no assistance from a helper. 5-Set-up or Clean-up Assistance-helper sets up or cleans up; patient completes activity. [place] assists only prior to or following the activity. 4-Supervision or Touching Assistance-helper provides verbal cues and/or touching/steadying and/or contact guard assistance as patient completes ac tivity. Assistance may be provided throughout the activity or intermittently. 3-Partial/Moderate Assistance-helper does LESS THAN HALF the effort. [place] lifts, holds or supports trunk or limbs, but provides less than half the effort. 2-Substantial/Maximal Assistance-helper does MORE THAN HALF the effort. [place] lifts or holds trunk or limbs and provides more than half the effort. 9-Cnujzpvtz-qfzwtn does ALL the effort. Patient does none of the effort to complete the activity. Or, the assistance of 2 or more helpers is required for the patient to complete the activity. If activity was not attempted, code reason: 7-Patient Refused. 9-Not Applicable-not attempted and the patient did not perform the activity before the current illness, exacerbation or injury. 10-Not Attempted due to Environmental Limitations-(lack of equipment, weather restraints, etc.). 88-Not Attempted due to Medical Conditions or Safety Concerns. Weight Bearing Right Lower Extremity: Right Weight Bearing/Tolerated Left Lower Extremity: Left Weight Bearing/Tolerated Exercises Supine Ex: Ankle pumps (and toe curls), Quad Set, Glut sets, Heel Slides, Resisted flex/ext, Straight leg raise, Hip abd/add Supine Reps: 10 (PROM to AAROM) Treatments education, safety, ROM, strength, activity tolerance Assessment Pain in joints and mm's in LE's with all movements, constant in RUE PT Cabinet Worker Goals Mcc Goals PT Cabinet Worker Goals Time Frame: Oct 12, 2019 Roll Left & Right (QC): 2 Sit to Lying (QC): 2 Lying-Sitting on Side/Bed(QC): 2 PT Plan Treatment/Plan Treatment Plan: Continue Plan of Care Treatment Plan: Bed Mobility, Concurrent Therapy, Education, Functional Activity Lyn, Functional Strength, Gait, Safety, Therapeutic Exercise, Transfers Treatment Duration: Oct 12, 2019 Frequency: 6 times per week Estimated Hrs Per Day: .25 hour per day Patient and/or Family Agrees t: Yes Safety Risks/Education Patient Education: Safety Issues Teaching Recipient: Patient Teaching Methods: Discussion Response to Teaching: Verbalize Understanding inst in performing LE ex's, even if LE's don't move, just getting mm contractions, throughout the day Time/GCodes Time In: 829 Time Out: 851 Total Billed Treatment Time: 22 Total Billed Treatment 1 visit, EX x22 min KARI PERRY BODY PRESSER Oct 17, 2019 08:48
[2019-10-17] MEDS: TOBRAMYCIN (NEBCIN) 80 MG/2 ML VIAL IH SCH (09:27)
--- NOTE | 2019-10-17 11:35 | Occupational Ther Daily Note ---
OT Current Status-Daily Note Subjective Pt is alert, lying in bed. Daughter in room. Pt agrees to therapy. No c/o pain lying still, with PROM of UE's increased pain. Mental Status/Objective Patient Orientation: Person, Place, Time, Situation Attachments: Osorio Catheter, IV, Oxygen ADL-Treatment Therapy Code Descriptions/Definitions Functional [place] Measure: 0=Not Assessed/NA 4=Minimal Assistance 1=Total Assistance 5=Supervision or Setup 2=Maximal Assistance 6=Modified [place] 3=Moderate Assistance 7=Complete IndependenceSCALE: Activities may be completed with or without assistive devices. 1-Kxeivczems-obteqbm completes the activity by him/herself with no assistance from a helper. 5-Set-up or Clean-up Assistance-helper sets up or cleans up; patient completes activity. [place] assists only prior to or following the activity. 4-Supervision or Touching Assistance-helper provides verbal cues and/or touching/steadying and/or contact guard assistance as patient completes activity. Assistance may be provided throughout the activity or intermittently. 3-Partial/Moderate Assistance-helper does LESS THAN HALF the effort. [place] lifts, holds or supports trunk or limbs, but provides less than half the effort. 2-Substantial/Maximal Assistance-helper does MORE THAN HALF the effort. [place] lifts or holds trunk or limbs and provides more than half the effort. 1-Mpzvjleyb-vimhom does ALL the effort. Patient does none of the effort to complete the activity. Or, the assistance of 2 or more helpers is required for the patient to complete the activity. If activity was not attempted, code reason: 7-Patient Refused. 9-Not Applicable-not attempted and the patient did not perform the activity before the current illness, exacerbation or injury. 10-Not Attempted due to Environmental Limitations-(lack of equipment, weather restraints, etc.). 88-Not Attempted due to Medical Conditions or Safety Concerns. Other Treatment Edema still present in hands, PROM and retrograde message to decrease swelling. When attempting to get pt to move UE's, pt will try then start talking about how she can't move them. Encouragement to stay focused on moving UE's. Pt is demonstrating trace muscle contractions for moving B hands and wrists. APROM with elbow flexion and AAROM for elbow extension. PROM for B shldr movement. Pt able to complete shldr elevation without difficulty. Pt states that she is being fed, pt unable to grasp or bring items to mouth. After therapy, pt lying in bed with call light/phone in reach. All needs met in room. OT Chief Dietitian Goals Usp Goals Time Frame: Oct 28, 2019 Eating (QC): 3 Oral Hygiene (QC): 3 Shower/Bathe Self (QC): 2 Upper Body Dressing (QC): 2 Additional Goals: 1-Demonstrate ADL Tasks, 2-Verbalize Understanding, 3- ImproveStrength/Lyn 1=Demonstrate adherence to instructed precautions during ADL tasks. 2=Patient will verbalize/demonstrate understanding of assistive devices/modifications for ADL. 3=Patient will improve strength/tolerance for activity to enable patient to perform ADL's. OT Education/Plan Problem List/Assessment Assessment: Decreased Activ Tolerance, Decreased UE Strength, Dependent Transfers, Edema, Impaired Bed Mobility, Impaired Cognition, Impaired Coordination, Impaired Funct Balance, Impaired I ADL's, Impaired Self-Care Skills, Restricted Funct UE ROM Pt currently demonstrates impaired strength, mobility, and ADL functioning. Pt to benefit from skilled OT intervention for ADL training, strengthening, and mobility to increase level of independence and allow safe discharge plan. Discharge Recommendations Plan/Recommendations: Continue POC Treatment Plan/Plan of Care Patient would benefit from OT for education, treatment and training to promote independence in ADL's, mobility, safety and/or upper extremity function for ADL's. Plan of Care: ADL Retraining, Functional Mobility, UE Funct Exercise/Act Treatment Duration: Oct 28, 2019 Frequency: 5 times per week Estimated Hrs Per Day: .25 hour per day Rehab Potential: Guarded Time/GCodes Start Time: 10:45 Stop Time: 11:09 Total Time Billed (hr/min): 24 Billed Treatment Time 1 visit-NM 2 (24 min) TY REAGAN Oct 17, 2019 11:35
--- NOTE | 2019-10-17 11:58 | Progress Note - Hospitalist ---
Subjective HPI/CC On Admission Date Seen by Provider: Oct 17, 2019 Time Seen by Provider: 11:53 Shortness of breath Subjective/Events-last exam Pt reports feeling well. No complaints today. Reviewed events from last night. Objective Exam Vital Signs Vital Signs Date Time Temp Pulse Resp B/P (MAP) Pulse Ox O2 Delivery O2 Flow Rate FiO2 10/17/19 09:15 90 Vapotherm 18.00 40 10/17/19 08:00 36.7 92 16 132/64 (86) Capillary Refill : Less Than 3 Seconds General Appearance: No Apparent Distress, WD/WN, Chronically ill Cardiovascular: Regular Rate, Rhythm, No JVD Neurologic/Psychiatric: Alert, Oriented x3 Results/Procedures Lab Laboratory Tests 10/17/19 05:15 Patient resulted labs reviewed. Imaging: Reviewed Imaging Report Assessment/Plan Assessment and Plan Assess & Plan/Chief Complaint ARDS Acute respiratory failure with hypoxia COPD with acute exacerbation VAP - Prolonged intubation, including reintubation, now extubated on Vapotherm - Pulm consulted, appreciate recs - Sputum and bronchial cultures consistently growing Pseudomonas - Repeat sputum as has had persistent growth despite abx-awaiting results - Continue Bumex - Continue Merrem and Levaquin - Continue steroids AFIB/Flutter with RVR HTN - Metoprolol, Vasotec - Cardiology consulted, appreciate recs - Continue Xarelto Seizure like activity - Continue Raeann Had episode of confusion yesterday and staff concerned about postictal period- disucssed with patient and seems more like delirium RLE DVT right upper extremity DVT - Continue Xarelto Steroid-induced hyperglycemia - Continue Levemir - SSI Debility - PT/OT - IRU consult Alcohol abuse Morbid obesity - Clinically significant, no acute management needs Critical Care Critically Ill Patient Diagnosis/Problems Diagnosis/Problems (1) ARDS (adult respiratory distress syndrome) Status: Acute (2) Alcohol use Status: Acute (3) Atrial fibrillation with rapid ventricular response Status: Acute (4) Bilateral pneumonia Status: Acute Qualifiers: Pneumonia type: due to unspecified organism Lung location: lower lobe of lung Qualified Codes: J18.1 - Lobar pneumonia, unspecified organism (5) Acute respiratory failure Status: Acute Qualifiers: Respiratory failure complication: hypoxia Qualified Codes: J96.01 - Acute respiratory failure with hypoxia Clinical Quality Measures DVT/VTE Risk/Contraindication: Risk Factor Score Per Nursin RFS Level Per Nursing on Admit: 4+=Very High BROOKLYN DUNLAP MD Oct 17, 2019 11:58
[2019-10-17 12:00] VITALS: BP 129/65
--- NOTE | 2019-10-17 13:04 | Progress Note - Cardiology ---
Cardiology SOAP Progress Note Subjective: Gen weakness and poor stamina Exertional shortness of breath present No cp or palp or syncope Objective: I&O/Vital Signs 10/17/19 10/17/19 10/17/19 10/17/19 02:29 04:00 07:00 08:00 Temp 36.9 Pulse 83 83 Resp 20 B/P (MAP) 136/70 (92) Pulse Ox 95 92 O2 Delivery Vapotherm Vapotherm Vapotherm O2 Flow Rate 20.00 25.00 18.00 40.00 FiO2 40 40 10/17/19 10/17/19 10/17/19 10/17/19 08:00 09:11 09:15 12:00 Temp 36.7 36.8 Pulse 92 80 Resp 16 18 B/P (MAP) 132/64 (86) 129/65 (86) Pulse Ox 90 89 90 92 O2 Delivery Vapotherm Vapotherm Vapotherm Vapotherm O2 Flow Rate 18.00 18.00 18.00 18.00 40.00 40.00 FiO2 40 40 10/17/19 00:00 Intake Total 1155 ml Output Total 1975 ml Balance -820 ml Weight (Pounds): 218 Weight (Ounces): 0.0 Weight (Calculated Kilograms): 98.359021 Constitutional: AAO x 3, well-developed, well-nourished Respiratory: No accessory muscle use, No respiratory distress; chest expansion is symmetric, chest is bilaterally symmetric (good air entry), other Cardiovascular: regular rate-rhythm; No JVD; S1 and S2, systolic murmur (soft MARIE at card base) Gastrointestional: No tender, No soft, No guarding, No rebound; audible bowel sounds Extremities: other (mod bilat LE swelling); No clubbing, No cyanosis Neurologic/Psychiatric: oriented x 3, other (moves all limbs equally) Skin: warm/dry; No rash on exposed areas, No ulcerations on exposed areas Results/Procedures: Labs Laboratory Tests 10/16/19 15:58: Glucometer 127H 10/16/19 16:34: Glucometer 141H 10/16/19 16:48: Blood Gas Puncture Site LEFT RADIAL, Blood Gas Patient Temperature 36.8, Arterial Blood pH 7.55H, Arterial Blood Partial Pressure CO2 43, Arterial Blood Partial Pressure O2 69L, Arterial Blood HCO3 37H, Arterial Blood Total CO2 38.4H , Arterial Blood Oxygen Saturation 95, Arterial Blood Base Excess 13.2H, Jame Test POSITIVE, Blood Gas Ventilator Setting NO, Blood Gas Inspired Oxygen 40% 25L 10/16/19 20:00: Glucometer 209H 10/17/19 05:15: White Blood Count 10.8, Red Blood Count 2.80L, Hemoglobin 8.7L, Hematocrit 27L, Mean Corpuscular Volume 98, Mean Corpuscular Hemoglobin 31, Mean Corpuscular Hemoglobin Concent 32, Red Cell Distribution Width 14.0, Platelet Count 236, Mean Platelet Volume 9.9, Neutrophils (%) (Auto) 94H, Lymphocytes (%) (Auto) 3L, Monocytes (%) (Auto) 3, Eosinophils (%) (Auto) 0, Basophils (%) (Auto) 0, Neutrophils # (Auto) 10.1H, Lymphocytes # (Auto) 0.3L, Monocytes # (Auto) 0.3, Eosinophils # (Auto) 0.0, Basophils # (Auto) 0.0, Sodium Level 147H, Potassium Level 3.6, Chloride Level 103, Carbon Dioxide Level 31, Anion Gap 13, Blood Urea Nitrogen 39H, Creatinine 0.74, Estimat Glomerular Filtration Rate > 60, BUN/Creatinine Ratio 53, Glucose Level 104, Calcium Level 9.6, Phosphorus Level 3.0, Magnesium Level 2.1 10/17/19 05:45: Glucometer 121H 10/17/19 11:34: Glucometer 213H Microbiology 10/08/19 Mycobacterial Culture - Preliminary, Resulted 10/07/19 C. difficile DNA Amplification - Final, Complete 09/26/19 Blood Culture - Final, Complete No growth Laboratory Tests 10/16/19 03:29 10/17/19 05:15 A/P: Assessment: Acute resp failure, likely due to COPD exacerbated by aspiration pneumonia Acute renal failure, likely ATN due to hypotension due to sepsis, resolved. Now appears to have some degree of pre-renal azotemia HTN - improved PAF/flutter, currently NSR Elevated troponin at presentation - likely type 2 [place] d/t hypoxia Card cath of 09/07/18: minimal CAD, LVEF 70-75%, elevated LVEDP Echo of 09/20/19: LVEF 50-55%, RVSP 35 mmHg H/o opiate addiction ETOH abuse Chronic tobacco use Fam h/o early CAD Hyperlipidemia Borderline DM II (fasting blood glucose on 09/07/18) Carotid u/s on 01/05/19: no significant dz Plan: * Complex management due to multiple comorbidities that are outlined above * Replenish lytes as needed * Monitor labs * BP improved - continue current regimen * Mild anemia - management per Medical Services * I spoke with her and her daughter and answered CV-related questions JESS CONLEY MD FACP FACC CCDS Oct 17, 2019 13:04
[2019-10-17 16:00] VITALS: BP 127/70
[2019-10-17] MEDS: ONDANSETRON 4 MG/2 ML (SDV) Z0FRAN IVP PRN (18:13)
[2019-10-17] MEDS: RIVAROXABAN 20 MG TABLET (XARELTO) PO SCH (18:13)
[2019-10-17 19:52] VITALS: BP 130/58
[2019-10-17] MEDS ORDERED: methylPREDNISolone 40 MG/ML (Solu-MEDROL) VIAL IV SCH (21:00)
[2019-10-18] VITALS (7 sets, daily range): BP systolic 127–149; BP diastolic 61–81
[2019-10-18] MEDS: guaiFENesin SYRUP 100 MG/5 ML 10 ML (ROBITUSSIN SF) PO SCH ×4 (00:08→22:39)
[2019-10-18] MEDS: TOBRAMYCIN (NEBCIN) 80 MG/2 ML VIAL IH SCH ×3 (01:06→18:10)
[2019-10-18] MEDS: RT-ALBUTEROL/IPRATROPIUM 3 ML (DUONEB) VIAL INH SCH ×6 (01:41→21:37)
[2019-10-18 05:36] LABS: BASOPHILS % (AUTO) 0 % (0-10); EOSINOPHILS % (AUTO) 0 % (0-10); HEMATOCRIT 28 % (35-52); HEMOGLOBIN 8.9 G/DL (11.5-16.0); LYMPHOCYTES # (AUTO) 0.3 X 10^3 (1.0-4.0); LYMPHOCYTES % (AUTO) 3 % (12-44); MEAN CORPUSCULAR HEMOGLOBIN 31 PG (25-34); MEAN CORPUSCULAR HGB CONC 31 G/DL (32-36); MEAN CORPUSCULAR VOLUME 98 FL (80-99); MEAN PLATELET VOLUME 9.7 FL (7.4-10.4); MONOCYTES # (AUTO) 0.4 X 10^3 (0.0-1.0); MONOCYTES % (AUTO) 3 % (0-12); NEUTROPHILS # (AUTO) 10.9 X 10^3 (1.8-7.8); NEUTROPHILS % (AUTO) 94 % (42-75); PLATELET COUNT 248 10^3/uL (130-400); RED CELL DISTRIBUTION WIDTH 14.3 % (10.0-14.5); WHITE BLOOD COUNT 11.6 10^3/uL (4.3-11.0)
[2019-10-18] MEDS: MEROPENEM 500 MG in WATER (STERILE) FOR INJECTION 10 ML IV SCH ×3 (05:43→18:03)
[2019-10-18] MEDS: BUMETANIDE 1 MG/4 ML (BUMEX) VIAL IV SCH (05:43)
[2019-10-18 05:56] LABS: BUN/CREATININE RATIO 49; CALCIUM 9.6 MG/DL (8.5-10.1); CARBON DIOXIDE 29 MMOL/L (21-32); CHLORIDE 102 MMOL/L (98-107); CREATININE SERUM 0.72 MG/DL (0.60-1.30); GFR ESTIMATED > 60; GLUCOSE 171 MG/DL (70-105); MAGNESIUM 2.1 MG/DL (1.6-2.4); PHOSPHORUS 2.9 MG/DL (2.3-4.7); POTASSIUM 4.3 MMOL/L (3.6-5.0); SODIUM 143 MMOL/L (135-145)
[2019-10-18] MEDS: inSUlin ASPART (NovoLOG) 1 UNIT/0.01 ML (CHARGE PER UNIT) SC SCH ×4 (06:01→21:28)
[2019-10-18] MEDS: predniSONE 20 MG TAB PO SCH (06:06)
--- NOTE | 2019-10-18 08:26 | Diagnostic Imaging Report ---
CHEST 1 VIEW, AP/PA ONLY Indication: Dyspnea Comparison: 10/17/2019 Findings: Stable right IJ central venous catheter. Small bilateral pleural effusions are unchanged. Basilar pulmonary opacities are similar. No pneumothorax. Stable cardiac silhouette. Impression: 1. Stable exam without adverse development or improvement. Dictated by: Dictated on workstation # [id number]
[2019-10-18] MEDS: LEVETIRACETAM 500 MG (KEPPRA) TAB PO SCH ×2 (08:43→22:39)
[2019-10-18] MEDS: KCL 20 MEQ POWDER FOR ORAL SOLUTION PO SCH ×2 (08:43→22:39)
[2019-10-18] MEDS: guaiFENesin (MUCINEX) 600 MG TAB PO SCH ×2 (08:43→22:38)
[2019-10-18] MEDS: meTOprolol TARTRATE 50 MG (LOPRESSOR) TAB PO SCH ×2 (08:43→22:39)
[2019-10-18] MEDS: AMIODARONE 200 MG (CORDARONE) TAB PO SCH ×2 (08:43→22:39)
[2019-10-18] MEDS: amLODIPine 5 MG (NORVASC) TAB PO SCH (08:44)
[2019-10-18] MEDS: lisINopril 10 MG (PRINIVIL) TABLET PO SCH (08:44)
[2019-10-18] MEDS: FAMOTIDINE 20 MG (PEPCID) TABLET PO SCH ×2 (08:44→22:38)
[2019-10-18] MEDS: ONDANSETRON 4 MG/2 ML (SDV) Z0FRAN IVP PRN ×2 (09:20→18:03)
--- NOTE | 2019-10-18 10:27 | NUR ---
Palliative Care RN in to see patient. Have not seen her in 1 week and she had made remarkable gain in this time. She is alert and oriented. SHe indicated feeling well. She is currently on Vapotherm at 12 L but will transition to NC 10 L today. She is being evaluated for INPT Rehab at this time. Patient has crusty lips, offered her a warm wash cloth and was able to remove some dried on debris...then applied [place] wax. She is appreciative and has not voiced needs at end of visit.
--- NOTE | 2019-10-18 10:29 | Progress Note - Cardiology ---
Cardiology SOAP Progress Note Subjective: C/O generalized weakness. No c/o CP. Feels SOB is improving. Objective: I&O/Vital Signs 10/19/19 10/19/19 10/20/19 10/20/19 22:40 23:30 01:00 02:58 Temp 36.2 Pulse 77 80 Resp 20 B/P (MAP) 108/68 (81) Pulse Ox 96 96 96 O2 Delivery Nasal Cannula High Flow N/C Nasal Cannula O2 Flow Rate 1.00 2.00 1.00 10/20/19 10/20/19 10/20/19 04:20 05:00 07:00 Temp 35.6 36.3 Pulse 77 84 Resp 16 B/P (MAP) 118/75 (89) Pulse Ox 93 O2 Delivery High Flow N/C O2 Flow Rate 0.50 10/20/19 00:00 Intake Total 1440 ml Output Total 1600 ml Balance -160 ml Weight (Pounds): 218 Weight (Ounces): 0.0 Weight (Calculated Kilograms): 98.460704 Constitutional: AAO x 3, well-developed, well-nourished Respiratory: No accessory muscle use, No respiratory distress; chest expansion is symmetric, chest is bilaterally symmetric (good air entry) Cardiovascular: regular rate-rhythm; No JVD; S1 and S2, systolic murmur (soft MARIE at card base) Gastrointestional: No tender, No soft, No guarding, No rebound; audible bowel sounds Extremities: other (mod bilat LE swelling); No clubbing, No cyanosis Neurologic/Psychiatric: oriented x 3, other (moves all limbs equally) Skin: warm/dry; No rash on exposed areas, No ulcerations on exposed areas Results/Procedures: Labs Laboratory Tests 10/19/19 11:06: Glucometer 150H 10/19/19 15:54: Glucometer 171H 10/19/19 20:46: Glucometer 172H 10/20/19 06:07: Glucometer 143H 10/20/19 06:35: White Blood Count 10.1, Red Blood Count 3.00L, Hemoglobin 9.5L, Hematocrit 30L, Mean Corpuscular Volume 98, Mean Corpuscular Hemoglobin 32, Mean Corpuscular Hemoglobin Concent 32, Red Cell Distribution Width 14.6H, Platelet Count 258, Mean Platelet Volume 9.8, Neutrophils (%) (Auto) 89H, Lymphocytes (%) (Auto) 7L, Monocytes (%) (Auto) 4, Eosinophils (%) (Auto) 0, Basophils (%) (Auto) 0, Neutrophils # (Auto) 8.9H, Lymphocytes # (Auto) 0.7L, Monocytes # (Auto) 0.4, Eosinophils # (Auto) 0.0, Basophils # (Auto) 0.0, Neutrophils % (Manual) 94, Lymphocytes % (Manual) 3, Monocytes % (Manual) 2, Eosinophils % (Manual) 0, Basophils % (Manual) 0, Band Neutrophils 1, Toxic Granulation 1+, Anisocytosis SLIGHT, Sodium Level 144, Potassium Level 3.5L, Chloride Level 103, Carbon Dioxide Level 29, Anion Gap 12, Blood Urea Nitrogen 33H, Creatinine 0.67, Estimat Glomerular Filtration Rate > 60, BUN/Creatinine Ratio 49, Glucose Level 135H, Calcium Level 9.3, Phosphorus Level 2.5, Magnesium Level 2.0 Microbiology 10/08/19 Mycobacterial Culture - Preliminary, Resulted 10/07/19 C. difficile DNA Amplification - Final, Complete 09/26/19 Blood Culture - Final, Complete No growth A/P: Assessment: Acute resp failure, likely due to COPD exacerbated by aspiration pneumonia Acute renal failure, likely ATN due to hypotension due to sepsis, resolved HTN - improved PAF/flutter, currently NSR Elevated troponin at presentation - likely type 2 [place] d/t hypoxia Card cath of 09/07/18: minimal CAD, LVEF 70-75%, elevated LVEDP Echo of 09/20/19: LVEF 50-55%, RVSP 35 mmHg H/o opiate addiction ETOH abuse Chronic tobacco use Fam h/o early CAD Hyperlipidemia Borderline DM II (fasting blood glucose on 09/07/18) Carotid u/s on 01/05/19: no significant dz Plan: * Complex management due to multiple comorbidities that are outlined above * Replenish lytes as needed * Monitor labs * Change IV diuretic over to oral * Mild anemia - management per Medical Services * I spoke with her and her daughter and answered CV-related questions DELROY TURNER Oct 18, 2019 10:29
--- NOTE | 2019-10-18 11:20 | Occupational Ther Daily Note ---
OT Current Status-Daily Note Subjective Pt awake though eyes closed, lying in bed. Pt agrees to therapy. Pt's daughter present in room. No c/o pain except with movement of joints. Mental Status/Objective Patient Orientation: Person, Place, Time, Situation Attachments: Central Line, Osorio Catheter, Oxygen (vapotherm 40%), Telemetry ADL-Treatment Therapy Code Descriptions/Definitions Functional [place] Measure: 0=Not Assessed/NA 4=Minimal Assistance 1=Total Assistance 5=Supervision or Setup 2=Maximal Assistance 6=Modified [place] 3=Moderate Assistance 7=Complete IndependenceSCALE: Activities may be completed with or without assistive devices. 6-Ncshdrpyqd-aisjhpo completes the activity by him/herself with no assistance from a helper. 5-Set-up or Clean-up Assistance-helper sets up or cleans up; patient completes activity. [place] assists only prior to or following the activity. 4-Supervision or Touching Assistance-helper provides verbal cues and/or touching/steadying and/or contact guard assistance as patient completes activity. Assistance may be provided throughout the activity or intermittently. 3-Partial/Moderate Assistance-helper does LESS THAN HALF the effort. [place] lifts, holds or supports trunk or limbs, but provides less than half the effort. 2-Substantial/Maximal Assistance-helper does MORE THAN HALF the effort. [place] lifts or holds trunk or limbs and provides more than half the effort. 6-Xlzhcposs-dlmbln does ALL the effort. Patient does none of the effort to complete the activity. Or, the assistance of 2 or more helpers is required for the patient to complete the activity. If activity was not attempted, code reason: 7-Patient Refused. 9-Not Applicable-not attempted and the patient did not perform the activity before the current illness, exacerbation or injury. 10-Not Attempted due to Environmental Limitations-(lack of equipment, weather restraints, etc.). 88-Not Attempted due to Medical Conditions or Safety Concerns. Other Treatment Co-treat with [id number], individual [id number]. Skills of 2 clinicians required due to pt's immobility, decreased activity tolerance, pt's decreased ability to follow directions. Pt requires verbal/physical cues for any movement. Assist x3 for bed mobility. Jacob lift transfer from bed to recliner. Pt demonstrated initial movement in shldrs with shldr flexion then to complete full flexion requires APROM. Trace movement noted in tricep and poor muscle tone during bicep. No trace movement for wrist or fingers noted. Swelling has decreased. DVT L upper arm being treated. After therapy, pt sitting in recliner with feet elevated. Daughter present in room. Call light/phone in reach. All needs met in room. OT Lead Furnace Operator Goals Lead Furnace Operator Goals Time Frame: Oct 28, 2019 Eating (QC): 3 Oral Hygiene (QC): 3 Shower/Bathe Self (QC): 2 Upper Body Dressing (QC): 2 Additional Goals: 1-Demonstrate ADL Tasks, 2-Verbalize Understanding, 3- ImproveStrength/Lyn 1=Demonstrate adherence to instructed precautions during ADL tasks. 2=Patient will verbalize/demonstrate understanding of assistive devices/modifications for ADL. 3=Patient will improve strength/tolerance for activity to enable patient to perform ADL's. OT Education/Plan Problem List/Assessment Assessment: Decreased Activ Tolerance, Decreased Safety Aware, Decreased UE Strength, Dependent Transfers, Impaired Bed Mobility, Impaired Cognition, Impaired Coordination, Impaired Funct Balance, Impaired I ADL's, Impaired Self- Care Skills, Restricted Funct UE ROM Pt currently demonstrates impaired strength, mobility, and ADL functioning. Pt to benefit from skilled OT intervention for ADL training, strengthening, and mobility to increase level of independence and allow safe discharge plan. Discharge Recommendations Plan/Recommendations: Continue POC Treatment Plan/Plan of Care Patient would benefit from OT for education, treatment and training to promote independence in ADL's, mobility, safety and/or upper extremity function for ADL's. Plan of Care: ADL Retraining, Functional Mobility, UE Funct Exercise/Act Treatment Duration: Oct 28, 2019 Frequency: 5 times per week Estimated Hrs Per Day: .25 hour per day Rehab Potential: Guarded Time/GCodes Start Time: 10:38 Stop Time: 11:01 Total Time Billed (hr/min): 23 Billed Treatment Time 1 visit-FA 1 (10 min) NM 1 (13 min) TY REAGAN Oct 18, 2019 11:20
--- NOTE | 2019-10-18 11:22 | Physical Therapy Daily Note ---
PT Daily Note-Current Subjective Patient and family agreeable to therapy. Patient family states that she has been talking about getting up in recliner all morning. Mental Status Patient Orientation: Confused Attachments: Oxygen (vapotherm), Osorio Catheter Transfers SCALE: Activities may be completed with or without assistive devices. 7-Rwoxtqgiuv-bmkqazp completes the activity by him/herself with no assistance from a helper. 5-Set-up or Clean-up Assistance-helper sets up or cleans up; patient completes activity. [place] assists only prior to or following the activity. 4-Supervision or Touching Assistance-helper provides verbal cues and/or touching/steadying and/or contact guard assistance as patient completes activity. Assistance may be provided throughout the activity or intermittently. 3-Partial/Moderate Assistance-helper does LESS THAN HALF the effort. [place] lifts, holds or supports trunk or limbs, but provides less than half the effort. 2-Substantial/Maximal Assistance-helper does MORE THAN HALF the effort. [place] lifts or holds trunk or limbs and provides more than half the effort. 8-Npccmmcds-pzvqfn does ALL the effort. Patient does none of the effort to complete the activity. Or, the assistance of 2 or more helpers is required for the patient to complete the activity. If activity was not attempted, code reason: 7-Patient Refused. 9-Not Applicable-not attempted and the patient did not perform the activity before the current illness, exacerbation or injury. 10-Not Attempted due to Environmental Limitations-(lack of equipment, weather restraints, etc.). 88-Not Attempted due to Medical Conditions or Safety Concerns. Roll Left & Right (QC): 1 Lying to Sitting/Side of Bed(Q: 1 Chair/Cbn-ir-Xlrnf Xfer(QC): 1 (in-room ajay lift used to transfer bed to chair) Weight Bearing Right Lower Extremity: Right Weight Bearing/Tolerated Left Lower Extremity: Left Weight Bearing/Tolerated Gait Training Does the Patient Walk?: No and Walking Goal NOT indicated Wheelchair Training Does the Pt Use a Wheelchair?: No Exercises Seated Therapy Exercises: Ankle pumps, Long arc quads, Hip flexion Seated Reps: 10 BLE exercises were PROM to AAROM. Patient has little self activation of muscles. Assessment PT and OT cotreat due to patient inability to tolerate extensive therapy on an independent status. PT addressed bed mobility, bilateral LE exercises and positioning while OT address ADL's and bilateral UE exercises. Patient is able to move her ankle a little and she is also able to move her knee in a limited mo tion IND bilaterally. To get full range of motion patient needs assistance. Patient currently tolerates minimal activity due to severely deconditioned. PT Bridge Rigger Goals Correction Goals PT Correction Goals Time Frame: Oct 29, 2019 Roll Left & Right (QC): 2 Sit to Lying (QC): 2 Lying-Sitting on Side/Bed(QC): 2 PT Plan Problem List Problem List: Activity Tolerance, Functional Strength, Safety, Balance, Gait, Transfer, Bed Mobility, ROM Treatment/Plan Treatment Plan: Continue Plan of Care Treatment Plan: Bed Mobility, Concurrent Therapy, Education, Functional Activity Lyn, Functional Strength, Gait, Safety, Therapeutic Exercise, Transfers Treatment Duration: Oct 29, 2019 Frequency: 6 times per week Estimated Hrs Per Day: .25 hour per day (to .5) Patient and/or Family Agrees t: Yes Time/GCodes Time In: 1038 Time Out: 1053 Total Billed Treatment Time: 15 Total Billed Treatment 1 visit FA (15 minutes) EX 8 min MERVIN PETERSON PT Oct 18, 2019 11:22
--- NOTE | 2019-10-18 12:50 | Progress Note - Cardiology ---
Cardiology SOAP Progress Note Subjective: Gen weakness and malaise Shortness of breath with mild activity No palp or syncope Objective: I&O/Vital Signs 10/18/19 10/18/19 10/18/19 10/18/19 00:56 01:41 04:15 07:00 Temp 36.8 Pulse 90 97 96 Resp 16 B/P (MAP) 132/63 (86) Pulse Ox 92 92 O2 Delivery Vapotherm Vapotherm O2 Flow Rate 18.00 18.00 40.00 FiO2 40 10/18/19 10/18/19 10/18/19 10/18/19 08:00 08:00 08:00 11:34 Temp 37.1 Pulse 103 Resp 18 B/P (MAP) 149/78 (101) Pulse Ox 94 94 98 O2 Delivery Vapotherm Vapotherm Vapotherm Vapotherm O2 Flow Rate 18.00 18.00 18.00 12.00 40.00 FiO2 40 40 40 10/18/19 00:00 Intake Total 760 ml Output Total 1350 ml Balance -590 ml Weight (Pounds): 218 Weight (Ounces): 0.0 Weight (Calculated Kilograms): 98.655508 Constitutional: AAO x 3, well-developed, well-nourished Respiratory: No accessory muscle use, No respiratory distress; chest expansion is symmetric, chest is bilaterally symmetric (good air entry) Cardiovascular: regular rate-rhythm; No JVD; S1 and S2, systolic murmur (soft MARIE at card base) Gastrointestional: No tender, No soft, No guarding, No rebound; audible bowel sounds Extremities: other (mod bilat LE swelling); No clubbing, No cyanosis Neurologic/Psychiatric: oriented x 3, other (moves all limbs equally) Skin: warm/dry; No rash on exposed areas, No ulcerations on exposed areas Results/Procedures: Labs Laboratory Tests 10/17/19 16:07: Glucometer 136H 10/17/19 20:26: Glucometer 183H 10/18/19 05:18: White Blood Count 11.6H, Red Blood Count 2.88L, Hemoglobin 8.9L, Hematocrit 28L, Mean Corpuscular Volume 98, Mean Corpuscular Hemoglobin 31, Mean Corpuscular Hemoglobin Concent 31L, Red Cell Distribution Width 14.3, Platelet Count 248, Mean Platelet Volume 9.7, Neutrophils (%) (Auto) 94H, Lymphocytes (%) (Auto) 3L, Monocytes (%) (Auto) 3, Eosinophils (%) (Auto) 0, Basophils (%) (Auto) 0, Neutrophils # (Auto) 10.9H, Lymphocytes # (Auto) 0.3L, Monocytes # (Auto) 0.4, Eosinophils # (Auto) 0.0, Basophils # (Auto) 0.0, Sodium Level 143, Potassium Level 4.3, Chloride Level 102, Carbon Dioxide Level 29, Anion Gap 12, Blood Urea Nitrogen 35H, Creatinine 0.72, Estimat Glomerular Filtration Rate > 60, BUN/Creatinine Ratio 49, Glucose Level 171H, Calcium Level 9.6, Phosphorus Level 2.9, Magnesium Level 2.1 10/18/19 11:11: Glucometer 210H Microbiology 10/08/19 Mycobacterial Culture - Preliminary, Resulted 10/07/19 C. difficile DNA Amplification - Final, Complete 09/26/19 Blood Culture - Final, Complete No growth Laboratory Tests 10/17/19 05:15 10/18/19 05:18 A/P: Assessment: Acute resp failure, likely due to COPD exacerbated by aspiration pneumonia Acute renal failure, likely ATN due to hypotension due to sepsis, resolved HTN - improved PAF/flutter, currently NSR Elevated troponin at presentation - likely type 2 [place] d/t hypoxia Card cath of 09/07/18: minimal CAD, LVEF 70-75%, elevated LVEDP Echo of 09/20/19: LVEF 50-55%, RVSP 35 mmHg H/o opiate addiction ETOH abuse Chronic tobacco use Fam h/o early CAD Hyperlipidemia Borderline DM II (fasting blood glucose on 09/07/18) Carotid u/s on 01/05/19: no significant dz Plan: * Complex management due to multiple comorbidities that are outlined above * Diuretics changed to oral * Replenish lytes as needed * Monitor labs * Mild anemia - management per Medical Services JESS CONLEY MD FACP FAC CCDS Oct 18, 2019 12:50
--- NOTE | 2019-10-18 14:13 | NUR ---
IRF Evaluation Order received to evaluate patient for the ARU. Chart review complete and findings discussed with Dr. Virk - patient denied. This denial is due to patient being severely deconditioned and unable to tolerate intensive therapies. CM/SS notified. Thank you for this referral.
--- NOTE | 2019-10-18 16:39 | Progress Note - Hospitalist ---
Subjective HPI/CC On Admission Date Seen by Provider: Oct 18, 2019 Time Seen by Provider: 11:45 Shortness of breath Subjective/Events-last exam Pt up in chair. No complaints. Reports doing well. Just worked with PT. Objective Exam Vital Signs Vital Signs Date Time Temp Pulse Resp B/P (MAP) Pulse Ox O2 Delivery O2 Flow Rate FiO2 10/18/19 15:01 96 Nasal Cannula 6.00 10/18/19 13:00 89 10/18/19 12:00 37.1 18 129/75 (93) 10/18/19 11:34 40 Capillary Refill : Less Than 3 Seconds General Appearance: No Apparent Distress, Chronically ill Respiratory: Lungs Clear, No Accessory Muscle Use, No Respiratory Distress Cardiovascular: Regular Rate, Rhythm, No Murmur Results/Procedures Lab Laboratory Tests 10/18/19 05:18 Patient resulted labs reviewed. Imaging: Reviewed Imaging Report Assessment/Plan Assessment and Plan Assess & Plan/Chief Complaint ARDS Acute respiratory failure with hypoxia COPD with acute exacerbation VAP - Prolonged intubation, including reintubation, now extubated on Vapotherm - Pulm consulted, appreciate recs - Sputum and bronchial cultures consistently growing Pseudomonas - Repeat sputum as has had persistent growth despite abx-awaiting results still - Continue Bumex - Continue Merrem and Levaquin - Continue steroids AFIB/Flutter with RVR HTN - Metoprolol, Vasotec - Cardiology consulted, appreciate recs - Continue Xarelto Seizure like activity - Continue Keppra RLE DVT right upper extremity DVT - Continue Xarelto Steroid-induced hyperglycemia - Continue Levemir - SSI Debility - PT/OT - IRU consult, currently denied but they want to watch progress Alcohol abuse Morbid obesity - Clinically significant, no acute management needs Critical Care Critically Ill Patient Diagnosis/Problems Diagnosis/Problems (1) ARDS (adult respiratory distress syndrome) Status: Acute (2) Alcohol use Status: Acute (3) Atrial fibrillation with rapid ventricular response Status: Acute (4) Bilateral pneumonia Status: Acute Qualifiers: Pneumonia type: due to unspecified organism Lung location: lower lobe of lung Qualified Codes: J18.1 - Lobar pneumonia, unspecified organism (5) Acute respiratory failure Status: Acute Qualifiers: Respiratory failure complication: hypoxia Qualified Codes: J96.01 - Acute respiratory failure with hypoxia Clinical Quality Measures DVT/VTE Risk/Contraindication: Risk Factor Score Per Nursin RFS Level Per Nursing on Admit: 4+=Very High BROOKLYN DUNLAP MD Oct 18, 2019 16:39
[2019-10-18] MEDS: RIVAROXABAN 20 MG TABLET (XARELTO) PO SCH (18:03)
[2019-10-19] VITALS (7 sets, daily range): BP systolic 108–141; BP diastolic 58–76
[2019-10-19] MEDS: MEROPENEM 500 MG in WATER (STERILE) FOR INJECTION 10 ML IV SCH ×2 (00:56→06:46)
[2019-10-19] MEDS: RT-ALBUTEROL/IPRATROPIUM 3 ML (DUONEB) VIAL INH SCH ×6 (02:00→22:40)
[2019-10-19 02:27] LABS: BASOPHILS % (AUTO) 0 % (0-10); EOSINOPHILS % (AUTO) 0 % (0-10); HEMATOCRIT 30 % (35-52); HEMOGLOBIN 9.7 G/DL (11.5-16.0); LYMPHOCYTES # (AUTO) 0.6 X 10^3 (1.0-4.0); LYMPHOCYTES % (AUTO) 6 % (12-44); MEAN CORPUSCULAR HEMOGLOBIN 31 PG (25-34); MEAN CORPUSCULAR HGB CONC 32 G/DL (32-36); MEAN CORPUSCULAR VOLUME 97 FL (80-99); MEAN PLATELET VOLUME 9.7 FL (7.4-10.4); MONOCYTES # (AUTO) 0.7 X 10^3 (0.0-1.0); MONOCYTES % (AUTO) 7 % (0-12); NEUTROPHILS # (AUTO) 8.4 X 10^3 (1.8-7.8); NEUTROPHILS % (AUTO) 86 % (42-75); PLATELET COUNT 251 10^3/uL (130-400); RED CELL DISTRIBUTION WIDTH 14.4 % (10.0-14.5); WHITE BLOOD COUNT 9.7 10^3/uL (4.3-11.0)
[2019-10-19 02:46] LABS: ALANINE AMINOTRANSFERASE 32 U/L (0-55); ALBUMIN 3.2 GM/DL (3.2-4.5); ALKALINE PHOSPHATASE 104 U/L (40-136); BILIRUBIN,TOTAL 0.9 MG/DL (0.1-1.0); BUN/CREATININE RATIO 47; CALCIUM 9.3 MG/DL (8.5-10.1); CARBON DIOXIDE 31 MMOL/L (21-32); CHLORIDE 103 MMOL/L (98-107); GFR ESTIMATED > 60; GLUCOSE 92 MG/DL (70-105); MAGNESIUM 2.1 MG/DL (1.6-2.4); PHOSPHORUS 2.6 MG/DL (2.3-4.7); POTASSIUM 3.5 MMOL/L (3.6-5.0); SODIUM 145 MMOL/L (135-145); TOTAL PROTEIN 5.3 GM/DL (6.4-8.2)
[2019-10-19] MEDS: morphine INJ 4 MG/ML 1 ML (VIAL/SYRINGE) IVP PRN (04:27)
[2019-10-19] MEDS: inSUlin ASPART (NovoLOG) 1 UNIT/0.01 ML (CHARGE PER UNIT) SC SCH ×4 (06:20→20:47)
[2019-10-19] MEDS: guaiFENesin SYRUP 100 MG/5 ML 10 ML (ROBITUSSIN SF) PO SCH ×3 (06:46→22:54)
[2019-10-19] MEDS: predniSONE 20 MG TAB PO SCH (06:46)
[2019-10-19] MEDS: TOBRAMYCIN (NEBCIN) 80 MG/2 ML VIAL IH SCH ×2 (07:20→19:11)
--- NOTE | 2019-10-19 07:20 | Diagnostic Imaging Report ---
CT ABDOMEN/PELVIS W PROCEDURE: CT abdomen and pelvis with contrast. TECHNIQUE: Multiple contiguous axial images were obtained through the abdomen and pelvis after administration of intravenous contrast. INDICATION: Increasing abdominal distention and pain Comparison is made to study of 06/03/2018. There has been development of atelectasis and possible consolidation in the lower lobes, bilaterally. There is mild low-density in the liver which is improved when compared to previous study. Several small low-density foci are seen within the right hepatic lobe which may represent hepatic cysts. No gallbladder, pancreatic or splenic lesion is detected. There is no evidence of adrenal gland abnormality. 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 There is no evidence of hydronephrosis or hydroureter. Mild pelvic free fluid is noted. The bladder is decompressed around a Osorio catheter balloon. There is diffuse gaseous distention of stomach, small bowel and colon with moderate amount of colonic fluid present as well. No organized fluid collection is identified. There is mild presacral edema and/or inflammation. IMPRESSION: Distention of bowel with gas and fluid could be related to diffuse ileus. No site of obstruction is identified. Basilar atelectasis and possible pneumonitis versus developing pneumonia and clinical correlation would be useful. Dictated by: Dictated on workstation # [id number]
--- NOTE | 2019-10-19 07:38 | NUR ---
0057-PT VOICE ABD PAIN UPON THIS RN EXAMINING PT, PT ABD APPEARED TO BE INCREASING IN SIZE & FIRMNESS PRN PAIN MEDICATION GIVEN TO PT 0150-THIS RN CALLED DR. BREEN TO INFORM HER OF PT CONDITION ORDERS RECEIVED 0240-DR. BREEN CALLED THIS RN TO CHECK ON PT 0600-DR. BREEN CALLED TO CHECK ON THIS PT, THIS RN READ THE CT REPORT TO HER, NO NEW ORDERS AT THIS TIME.
--- NOTE | 2019-10-19 07:58 | Diagnostic Imaging Report ---
INDICATION: Dyspnea. FINDINGS: Semiupright portable AP view of the chest is obtained. Since the examination of one day earlier, there is continued bilateral basilar atelectasis. There is no evidence of pneumothorax or focal consolidation. Right jugular central venous catheter is in stable position. IMPRESSION: Continued mild bilateral basilar atelectasis and/or pneumonitis without other evidence of acute abnormality. Dictated by: Dictated on workstation # [id number]
--- NOTE | 2019-10-19 08:25 | NUR ---
DR. DUNLAP NOTIFIED OF CENTRAL LINE INSERTION SITE BEING PINK
--- NOTE | 2019-10-19 08:26 | Progress Note ---
Progress Note Called overnight by nurse; patient c/o increased abdominal pain. Vital were normal but nurse noted diffusely tender abdomen with increasing abdominal girth and bruising. Pt. reportedly had bowel sounds but hypoactive. Pt. had a large BM earlier in the day. Recently transitioned to Xarelto for DVT. Labs obtained were largely unremarkable. CT abd/pelvis showed stool with large amount of gas in a non-obstructive pattern. No change in management done. Pain improved with Morph ine shot. Communicated to Dr. Blackwell this am. CYRUS BREEN MD Oct 19, 2019 08:26
[2019-10-19] MEDS: LEVETIRACETAM 500 MG (KEPPRA) TAB PO SCH ×2 (08:30→20:44)
[2019-10-19] MEDS: guaiFENesin (MUCINEX) 600 MG TAB PO SCH ×2 (08:30→20:44)
[2019-10-19] MEDS: amLODIPine 5 MG (NORVASC) TAB PO SCH (08:30)
[2019-10-19] MEDS: BUMETANIDE 1 MG (BUMEX) TAB PO SCH (08:30)
[2019-10-19] MEDS: FAMOTIDINE 20 MG (PEPCID) TABLET PO SCH ×2 (08:30→20:43)
--- NOTE | 2019-10-19 08:30 | NUR ---
this RN attempted to give patient morning medication. patient successfully took a few medications but was very lethargic and kept falling asleep during administration. this RN made patient spit out remaining medication. due to patient not wanting to swallow. Nurses aide had trouble with feeding patient this morning as well. patient kept stuffing food in her cheeks, refusing to swallow. this RN told the ASSISTANT EXECUTIVE HOUSEKEEPER it was okay to stop trying to feed the patient for right now
[2019-10-19] MEDS: AMIODARONE 200 MG (CORDARONE) TAB PO SCH ×2 (08:31→20:43)
[2019-10-19] MEDS: KCL 20 MEQ POWDER FOR ORAL SOLUTION PO SCH ×2 (08:31→20:44)
[2019-10-19] MEDS: lisINopril 10 MG (PRINIVIL) TABLET PO SCH (08:31)
[2019-10-19] MEDS: meTOprolol TARTRATE 50 MG (LOPRESSOR) TAB PO SCH ×2 (08:31→20:44)
--- NOTE | 2019-10-19 11:50 | Progress Note - Hospitalist ---
Subjective HPI/CC On Admission Date Seen by Provider: Oct 19, 2019 Time Seen by Provider: 11:47 Shortness of breath Subjective/Events-last exam Pt reports feeling well. States she has already worked [facility] PT. No complaints or concerns. Reviewed events from last night. Now no abd pain. Objective Exam Vital Signs Vital Signs Date Time Temp Pulse Resp B/P (MAP) Pulse Ox O2 Delivery O2 Flow Rate FiO2 10/19/19 08:00 37.3 96 16 116/58 (77) 94 High Flow N/C 4.00 10/18/19 11:34 40 Capillary Refill : Less Than 3 SecondsLess Than 3 Seconds General Appearance: No Apparent Distress, Chronically ill Respiratory: Lungs Clear Cardiovascular: Regular Rate, Rhythm Gastrointestinal: Normal Bowel Sounds, Non Tender, Soft Neurologic/Psychiatric: Alert, Oriented x3 Results/Procedures Lab Laboratory Tests 10/19/19 02:18 Patient resulted labs reviewed. Imaging: Reviewed Imaging Report Assessment/Plan Assessment and Plan Assess & Plan/Chief Complaint ARDS Acute respiratory failure with hypoxia COPD with acute exacerbation VAP - Prolonged intubation, including reintubation, now extubated on Vapotherm - Pulm consulted, appreciate recs - Sputum and bronchial cultures consistently growing Pseudomonas - Repeat sputum as has had persistent growth despite abx-awaiting collection - Continue Bumex - Abx completed today - Contain Inhaler Tobramycin - Continue steroids orally now AFIB/Flutter with RVR HTN - Metoprolol, Vasotec - Cardiology consulted, appreciate recs - Continue Xarelto Seizure like activity - Continue Keppra RLE DVT right upper extremity DVT - Continue Xarelto Steroid-induced hyperglycemia - Continue Levemir - SSI Debility - PT/OT - IRU consult, currently denied but they want to watch progress with therapy Alcohol abuse Morbid obesity - Clinically significant, no acute management needs Critical Care Critically Ill Patient Diagnosis/Problems Diagnosis/Problems (1) ARDS (adult respiratory distress syndrome) Status: Acute (2) Alcohol use Status: Acute (3) Atrial fibrillation with rapid ventricular response Status: Acute (4) Bilateral pneumonia Status: Acute Qualifiers: Pneumonia type: due to unspecified organism Lung location: lower lobe of lung Qualified Codes: J18.1 - Lobar pneumonia, unspecified organism (5) Acute respiratory failure Status: Acute Qualifiers: Respiratory failure complication: hypoxia Qualified Codes: J96.01 - Acute respiratory failure with hypoxia Clinical Quality Measures DVT/VTE Risk/Contraindication: Risk Factor Score Per Nursin RFS Level Per Nursing on Admit: 4+=Very High BROOKLYN DUNLAP MD Oct 19, 2019 11:50
--- NOTE | 2019-10-19 11:59 | Occupational Ther Daily Note ---
OT Current Status-Daily Note Subjective Pt lying in bed with eyes closed. Attempted to get pt to wake, would open eyes for a few seconds then fall back to sleep. Nrsg came in and took vital signs and blood sugar, all WNL. Mental Status/Objective Patient Orientation: Person (opened eyes to name) Attachments: Central Line, Osorio Catheter, Oxygen ADL-Treatment Therapy Code Descriptions/Definitions Functional [place] Measure: 0=Not Assessed/NA 4=Minimal Assistance 1=Total Assistance 5=Supervision or Setup 2=Maximal Assistance 6=Modified [place] 3=Moderate Assistance 7=Complete IndependenceSCALE: Activities may be completed with or without assistive devices. 4-Czvbdysgve-htlrnfc completes the activity by him/herself with no assistance from a helper. 5-Set-up or Clean-up Assistance-helper sets up or cleans up; patient completes activity. [place] assists only prior to or following the activity. 4-Supervision or Touching Assistance-helper provides verbal cues and/or touching/steadying and/or contact guard assistance as patient completes activity. Assistance may be provided throughout the activity or intermittently. 3-Partial/Moderate Assistance-helper does LESS THAN HALF the effort. [place] lifts, holds or supports trunk or limbs, but provides less than half the effort. 2-Substantial/Maximal Assistance-helper does MORE THAN HALF the effort. [place] lifts or holds trunk or limbs and provides more than half the effort. 0-Ttgofxzsr-vyncfn does ALL the effort. Patient does none of the effort to complete the activity. Or, the assistance of 2 or more helpers is required for the patient to complete the activity. If activity was not attempted, code reason: 7-Patient Refused. 9-Not Applicable-not attempted and the patient did not perform the activity before the current illness, exacerbation or injury. 10-Not Attempted due to Environmental Limitations-(lack of equipment, weather restraints, etc.). 88-Not Attempted due to Medical Conditions or Safety Concerns. Upper Body Dressing (QC): 2 Toileting Hygiene (QC): 1 Other Treatment Pt dependent with rolling side to side. Pt opened eyes then fell back asleep. Dependent for cleansing self. Pt transferred with ajay lift to recliner. PROM B UE due to pt's lethargy. Pt not as alert as yesterday. After therapy, pt in recliner with feet elevated and call light in reach. Reported to nrsg pt up in chair. All needs met in room. OT Assisted Goals Assisted Goals Time Frame: Oct 28, 2019 Eating (QC): 3 Oral Hygiene (QC): 3 Shower/Bathe Self (QC): 2 Upper Body Dressing (QC): 2 Additional Goals: 1-Demonstrate ADL Tasks, 2-Verbalize Understanding, 3-I mproveStrength/Lyn 1=Demonstrate adherence to instructed precautions during ADL tasks. 2=Patient will verbalize/demonstrate understanding of assistive devices/modifications for ADL. 3=Patient will improve strength/tolerance for activity to enable patient to perform ADL's. OT Education/Plan Problem List/Assessment Assessment: Decreased Activ Tolerance, Decreased Safety Aware, Decreased UE Strength, Dependent Transfers, Edema, Impaired Bed Mobility, Impaired Cognition, Impaired Coordination, Impaired Funct Balance, Impaired I ADL's, Impaired Self- Care Skills, Restricted Funct UE ROM Pt currently demonstrates impaired strength, mobility, and ADL functioning. Pt to benefit from skilled OT intervention for ADL training, strengthening, and mobility to increase level of independence and allow safe discharge plan. Discharge Recommendations Plan/Recommendations: Continue POC Treatment Plan/Plan of Care Patient would benefit from OT for education, treatment and training to promote independence in ADL's, mobility, safety and/or upper extremity function for ADL's. Plan of Care: ADL Retraining, Functional Mobility, UE Funct Exercise/Act Treatment Duration: Oct 28, 2019 Frequency: 5 times per week Estimated Hrs Per Day: .25 hour per day Rehab Potential: Guarded Time/GCodes Start Time: 11:00 Stop Time: 11:30 Total Time Billed (hr/min): 30 Billed Treatment Time 1 visit-FA 2 (30 min) TY REAGAN Oct 19, 2019 11:59
--- NOTE | 2019-10-19 13:08 | Progress Note - Cardiology ---
Cardiology SOAP Progress Note Subjective: Marked gen weakness Short of breath with activity No cp or palp or syncope Objective: I&O/Vital Signs 10/19/19 10/19/19 10/19/19 10/19/19 02:00 04:11 06:42 07:21 Temp 37.0 Pulse 85 105 Resp 18 B/P (MAP) 127/61 (83) Pulse Ox 96 95 96 O2 Delivery Nasal Cannula High Flow N/C Nasal Cannula O2 Flow Rate 4.00 4.00 4.00 10/19/19 10/19/19 10/19/19 07:26 08:00 11:58 Temp 37.3 Pulse 96 Resp 16 B/P (MAP) 116/58 (77) Pulse Ox 97 94 95 O2 Delivery Nasal Cannula High Flow N/C Nasal Cannula O2 Flow Rate 4.00 4.00 3.00 10/19/19 00:00 Intake Total 10 ml Output Total 1750 ml Balance -1740 ml Weight (Pounds): 218 Weight (Ounces): 0.0 Weight (Calculated Kilograms): 98.486616 Constitutional: AAO x 3, well-developed, well-nourished Respiratory: No accessory muscle use, No respiratory distress; chest expansion is symmetric, chest is bilaterally symmetric (good air entry) Cardiovascular: regular rate-rhythm; No JVD; S1 and S2, systolic murmur (soft MARIE at card base) Gastrointestional: No tender, No soft, No guarding, No rebound; audible bowel sounds Extremities: other (mod bilat LE swelling); No clubbing, No cyanosis Neurologic/Psychiatric: oriented x 3, other (moves all limbs equally) Skin: warm/dry; No rash on exposed areas, No ulcerations on exposed areas Results/Procedures: Labs Laboratory Tests 10/18/19 16:16: Glucometer 133H 10/18/19 20:12: Glucometer 158H 10/19/19 02:18: White Blood Count 9.7, Red Blood Count 3.11L, Hemoglobin 9.7L, Hematocrit 30L, Mean Corpuscular Volume 97, Mean Corpuscular Hemoglobin 31, Mean Corpuscular Hemoglobin Concent 32, Red Cell Distribution Width 14.4, Platelet Count 251, Mean Platelet Volume 9.7, Neutrophils (%) (Auto) 86H, Lymphocytes (%) (Auto) 6L, Monocytes (%) (Auto) 7, Eosinophils (%) (Auto) 0, Basophils (%) (Auto) 0, Neutrophils # (Auto) 8.4H, Lymphocytes # (Auto) 0.6L, Monocytes # (Auto) 0.7, Eosinophils # (Auto) 0.0, Basophils # (Auto) 0.0, Sodium Level 145, Potassium Level 3.5L, Chloride Level 103, Carbon Dioxide Level 31, Anion Gap 11, Blood Urea Nitrogen 33H, Creatinine 0.70, Estimat Glomerular Filtration Rate > 60, BUN/Creatinine Ratio 47, Glucose Level 92, Calcium Level 9.3, Corrected Calcium 9.9, Phosphorus Level 2.6, Magnesium Level 2.1, Total Bilirubin 0.9, Aspartate Amino Transf (AST/SGOT) 25, Alanine Aminotransferase (ALT/SGPT) 32, Alkaline Phosphatase 104, Total Protein 5.3L, Albumin 3.2 10/19/19 05:37: Glucometer 98 10/19/19 11:06: Glucometer 150H Microbiology 10/08/19 Mycobacterial Culture - Preliminary, Resulted 10/07/19 C. difficile DNA Amplification - Final, Complete 09/26/19 Blood Culture - Final, Complete No growth Laboratory Tests 10/18/19 05:18 10/19/19 02:18 A/P: Assessment: Acute resp failure, likely due to COPD exacerbated by aspiration pneumonia Acute renal failure, likely ATN due to hypotension due to sepsis, resolved HTN - improved PAF/flutter, currently NSR Elevated troponin at presentation - likely type 2 [place] d/t hypoxia Card cath of 09/07/18: minimal CAD, LVEF 70-75%, elevated LVEDP Echo of 09/20/19: LVEF 50-55%, RVSP 35 mmHg H/o opiate addiction ETOH abuse Chronic tobacco use Fam h/o early CAD Hyperlipidemia Borderline DM II (fasting blood glucose on 09/07/18) Carotid u/s on 01/05/19: no significant dz Plan: * Complex management due to multiple comorbidities that are outlined above * Replenish lytes * Monitor labs JESS CONLEY MD FACP FAC CCDS Oct 19, 2019 13:08
--- NOTE | 2019-10-19 14:01 | NUR ---
Attempted to see pt twice today for follow-up, but pt was very asleep at each attempt. Will attempt to follow-up tomorrow. Pancho Rodriguez, MS, RD, LD
--- NOTE | 2019-10-19 15:09 | Physical Therapy Daily Note ---
PT Daily Note-Current Subjective Pt. up in recliner wit lift sling under her. Pt. is difficult to awaken, responds occas by opening eyes and speaks very low volume single words. Pt. moans when right leg is moved but does not rate or expound on pain Appearance eyes closed , no volitional movement, very warm to touch Mental Status Patient Orientation: [place], Listless Attachments: Oxygen, Osorio Catheter Transfers SCALE: Activities may be completed with or without assistive devices. 6-Lsifucykmi-khrkkxx completes the activity by him/herself with no assistance from a helper. 5-Set-up or Clean-up Assistance-helper sets up or cleans up; patient completes activity. [place] assists only prior to or following the activity. 4-Supervision or Touching Assistance-helper provides verbal cues and/or touching/steadying and/or contact guard assistance as patient completes act ivity. Assistance may be provided throughout the activity or intermittently. 3-Partial/Moderate Assistance-helper does LESS THAN HALF the effort. [place] lifts, holds or supports trunk or limbs, but provides less than half the effort. 2-Substantial/Maximal Assistance-helper does MORE THAN HALF the effort. [place] lifts or holds trunk or limbs and provides more than half the effort. 2-Hxxuzrloh-femikj does ALL the effort. Patient does none of the effort to complete the activity. Or, the assistance of 2 or more helpers is required for the patient to complete the activity. If activity was not attempted, code reason: 7-Patient Refused. 9-Not Applicable-not attempted and the patient did not perform the activity before the current illness, exacerbation or injury. 10-Not Attempted due to Environmental Limitations-(lack of equipment, weather restraints, etc.). 88-Not Attempted due to Medical Conditions or Safety Concerns. TRF Jacob sling overhead room dual lift system requiring assist of 2 for safety and coordination of lift components Weight Bearing Right Lower Extremity: Right Weight Bearing/Tolerated Left Lower Extremity: Left Weight Bearing/Tolerated Exercises Supine Ex: Ankle pumps, Heel Slides, Hip abd/add Supine Reps: 20 Treatments rolling in bed to doff sling required max assist of 2, Assessment Current Status: Poor Progress dependent for all , listless, unable to utilize nurse wall controls, warm and dry to touch, very debilitated status PT Verify Rep Goals Verify Rep Goals PT Prison Goals Time Frame: Oct 29, 2019 Roll Left & Right (QC): 2 Sit to Lying (QC): 2 Lying-Sitting on Side/Bed(QC): 2 PT Plan Treatment/Plan Treatment Plan: Continue Plan of Care Treatment Plan: Bed Mobility, Concurrent Therapy, Education, Functional Activity Lyn, Functional Strength, Gait, Safety, Therapeutic Exercise, Transfers Treatment Duration: Oct 29, 2019 Frequency: 6 times per week Estimated Hrs Per Day: .25 hour per day (to .5) Patient and/or Family Agrees t: Yes Safety Risks/Education Patient Education: Transfer Techniques, Disease Process, Safety Issues (skin protction) Teaching Recipient: Patient Response to Teaching: Unable to Return Demonstration, Unable to Comprehend Time/GCodes Time In: 1437 Time Out: 1500 Total Billed Treatment Time: 23 Total Billed Treatment 1,FA12m,EX11m KEVIN LEWIS FINISHING WIRE SAWYER Oct 19, 2019 15:09
--- NOTE | 2019-10-19 15:26 | Pulmonary Progress Note ---
Subjective Time Seen by a Provider: 15:24 Sepsis Event Evaluation Height, Weight, BMI Height: 5'5.00" Weight: 218lbs. 0.0oz. 98.761943iw; 34.07 BMI Method:Stated Exam Exam Vital Signs Date Time Temp Pulse Resp B/P (MAP) Pulse Ox O2 Delivery O2 Flow Rate FiO2 10/19/19 15:05 94 Nasal Cannula 2.00 10/19/19 12:00 37.4 88 16 124/60 (81) 95 High Flow N/C 4.00 10/19/19 11:58 95 Nasal Cannula 3.00 10/19/19 08:00 37.3 96 16 116/58 (77) 94 High Flow N/C 4.00 10/19/19 07:26 97 Nasal Cannula 4.00 10/19/19 07:21 96 Nasal Cannula 4.00 10/19/19 06:42 105 10/19/19 04:11 37.0 85 18 127/61 (83) 95 High Flow N/C 4.00 10/19/19 02:00 96 Nasal Cannula 4.00 10/19/19 01:00 100 10/19/19 00:47 37.0 97 18 141/76 (97) 99 High Flow N/C 4.00 10/18/19 22:44 96 136/68 (90) 10/18/19 21:37 100 Nasal Cannula 4.00 10/18/19 20:30 37.0 97 18 149/72 (97) 96 High Flow N/C 4.00 10/18/19 20:00 High Flow N/C 4.00 10/18/19 19:00 100 10/18/19 18:11 97 Nasal Cannula 4.00 10/18/19 16:00 36.8 91 18 148/81 (103) 97 High Flow N/C 4.00 I & O 10/19/19 07:00 Intake Total 80 ml Output Total 2100 ml Balance -2020 ml Height & Weight Height: 5'5.00" Weight: 218lbs. 0.0oz. 98.677867zd; 34.07 BMI Method:Stated General Appearance: No Apparent Distress, Chronically ill HEENT: PERRL/EOMI, Other (wearing BiPAP) Neck: Normal Inspection, Supple Respiratory: Lungs Clear Cardiovascular: Regular Rate, Rhythm Capillary Refill: Less Than 3 Seconds Gastrointestinal: soft, no organomegaly, no pulsatile mass Extremity: Normal Inspection, Non Tender, No Pedal Edema Neurologic/Psychiatric: Alert, Oriented x3 Skin: Normal Color, Warm/Dry Lymphatic: No Adenopathy Results Lab Laboratory Tests 10/18/19 05:18 10/19/19 02:18 Assessment/Plan Assessment/Plan Acute respiratory failure with hypoxia - reintubated probably secondary to mucous plugging vs aspiration. -s/p bronchoscopy -Currently on BiPAP will trial back to [place]. Continue BiPAP QHS Seizures -Keppra. Pseudomonus PNA -Continue Merrem, and Deniz SVNS -- -Repeat cultures pending Anemia -Monitor COPDAE -SVNS q 4 -Prednisone Afib/flutter RLE DVT -Lovenox Alcohol abuse Morbid obesity JACLYN SAVAGE DO Oct 19, 2019 15:26
[2019-10-19] MEDS: RIVAROXABAN 20 MG TABLET (XARELTO) PO SCH (16:56)
[2019-10-20] MEDS: RT-ALBUTEROL/IPRATROPIUM 3 ML (DUONEB) VIAL INH SCH ×4 (02:58→23:10)
--- NOTE | 2019-10-20 03:33 | NUR ---
pt oxygen sat 89-90% on RA pt was placed back on 1L nc-sating 92%
[2019-10-20 04:20] VITALS: BP 118/75
[2019-10-20] MEDS: inSUlin ASPART (NovoLOG) 1 UNIT/0.01 ML (CHARGE PER UNIT) SC SCH ×4 (06:18→21:42)
[2019-10-20] MEDS: predniSONE 20 MG TAB PO SCH (06:20)
[2019-10-20] MEDS: ACETAMINOPHEN 325 MG TABLET PO PRN ×2 (06:21→17:10)
[2019-10-20] MEDS: guaiFENesin SYRUP 100 MG/5 ML 10 ML (ROBITUSSIN SF) PO SCH ×4 (06:21→21:51)
[2019-10-20] MEDS: ONDANSETRON 4 MG/2 ML (SDV) Z0FRAN IVP PRN (06:29)
--- NOTE | 2019-10-20 06:29 | NUR ---
pt reports abd pain & nausea pt requested prn tylenol & zofran-medications given see mar
[2019-10-20 06:45] LABS: BASOPHILS % (AUTO) 0 % (0-10); EOSINOPHILS % (AUTO) 0 % (0-10); HEMATOCRIT 30 % (35-52); HEMOGLOBIN 9.5 G/DL (11.5-16.0); LYMPHOCYTES # (AUTO) 0.7 X 10^3 (1.0-4.0); LYMPHOCYTES % (AUTO) 7 % (12-44); MEAN CORPUSCULAR HEMOGLOBIN 32 PG (25-34); MEAN CORPUSCULAR HGB CONC 32 G/DL (32-36); MEAN CORPUSCULAR VOLUME 98 FL (80-99); MEAN PLATELET VOLUME 9.8 FL (7.4-10.4); MONOCYTES # (AUTO) 0.4 X 10^3 (0.0-1.0); MONOCYTES % (AUTO) 4 % (0-12); NEUTROPHILS # (AUTO) 8.9 X 10^3 (1.8-7.8); NEUTROPHILS % (AUTO) 89 % (42-75); PLATELET COUNT 258 10^3/uL (130-400); RED CELL DISTRIBUTION WIDTH 14.6 % (10.0-14.5); WHITE BLOOD COUNT 10.1 10^3/uL (4.3-11.0)
--- NOTE | 2019-10-20 06:48 | Diagnostic Imaging Report ---
INDICATION: Shortness of breath, pleural effusion. COMPARISON: 10/19/2019. FINDINGS: Single view of the chest demonstrates stable basilar atelectasis and infiltrate. Trace effusions are present. The heart is slightly enlarged without pulmonary edema. There is no pneumothorax. The right IJ catheter is stable. IMPRESSION: Unchanged aeration lungs. Dictated by: Dictated on workstation # [id number]
[2019-10-20 06:58] LABS: BAND NEUTROPHILS 1 %; BASOPHILS % (MANUAL) 0 %; EOSINOPHILS % (MANUAL) 0 %; LYMPHOCYTES % (MANUAL) 3 %; MONOCYTES % (MANUAL) 2 %; NEUTROPHILS % (MANUAL) 94 %
[2019-10-20 06:59] LABS: ANISOCYTOSIS SLIGHT; TOXIC GRANULATION/VACUOLAZATIO 1+
[2019-10-20 07:20] LABS: BUN/CREATININE RATIO 49; CALCIUM 9.3 MG/DL (8.5-10.1); CARBON DIOXIDE 29 MMOL/L (21-32); CHLORIDE 103 MMOL/L (98-107); CREATININE SERUM 0.67 MG/DL (0.60-1.30); GFR ESTIMATED > 60; GLUCOSE 135 MG/DL (70-105); PHOSPHORUS 2.5 MG/DL (2.3-4.7); POTASSIUM 3.5 MMOL/L (3.6-5.0); SODIUM 144 MMOL/L (135-145)
[2019-10-20] MEDS: KCL 20 MEQ POWDER FOR ORAL SOLUTION PO SCH ×2 (08:32→21:42)
[2019-10-20] MEDS: amLODIPine 5 MG (NORVASC) TAB PO SCH (08:32)
[2019-10-20] MEDS: BUMETANIDE 1 MG (BUMEX) TAB PO SCH (08:32)
[2019-10-20] MEDS: LEVETIRACETAM 500 MG (KEPPRA) TAB PO SCH ×2 (08:32→21:41)
[2019-10-20] MEDS: AMIODARONE 200 MG (CORDARONE) TAB PO SCH ×2 (08:32→21:41)
[2019-10-20] MEDS: lisINopril 10 MG (PRINIVIL) TABLET PO SCH (08:32)
[2019-10-20] MEDS: guaiFENesin (MUCINEX) 600 MG TAB PO SCH ×2 (08:32→21:41)
[2019-10-20] MEDS: meTOprolol TARTRATE 50 MG (LOPRESSOR) TAB PO SCH ×2 (08:33→21:43)
[2019-10-20] MEDS: FAMOTIDINE 20 MG (PEPCID) TABLET PO SCH ×2 (08:33→21:41)
[2019-10-20 08:50] VITALS: BP 113/67
--- NOTE | 2019-10-20 08:58 | Progress Note - Cardiology ---
Cardiology SOAP Progress Note Objective: I&O/Vital Signs 10/20/19 10/21/19 10/21/19 10/21/19 20:33 00:35 01:00 02:09 Temp 35.4 Pulse 81 66 76 Resp 16 B/P (MAP) 108/67 (81) Pulse Ox 93 90 O2 Delivery Room Air Room Air 10/21/19 10/21/19 10/21/19 10/21/19 03:40 07:00 07:28 07:29 Temp 35.8 Pulse 73 78 Resp 18 B/P (MAP) 108/68 (81) Pulse Ox 94 91 91 O2 Delivery Room Air Room Air Room Air 10/21/19 00:00 Intake Total 1590 ml Output Total 1300 ml Balance 290 ml Weight (Pounds): 218 Weight (Ounces): 0.0 Weight (Calculated Kilograms): 98.004839 Constitutional: AAO x 3, well-developed, well-nourished Respiratory: No accessory muscle use, No respiratory distress; chest expansion is symmetric, chest is bilaterally symmetric (good air entry) Cardiovascular: regular rate-rhythm; No JVD; S1 and S2, systolic murmur (soft MARIE at card base) Gastrointestional: No tender, No soft, No guarding, No rebound; audible bowel sounds Extremities: other (mod bilat LE swelling); No clubbing, No cyanosis Neurologic/Psychiatric: oriented x 3, other (moves all limbs equally) Skin: warm/dry; No rash on exposed areas, No ulcerations on exposed areas Results/Procedures: Labs Laboratory Tests 10/20/19 11:29: Glucometer 170H 10/20/19 16:17: Glucometer 208H 10/20/19 21:12: Glucometer 110 10/20/19 23:42: Glucometer 88 10/21/19 05:19: White Blood Count 10.4, Red Blood Count 2.85L, Hemoglobin 8.9L, Hematocrit 27L, Mean Corpuscular Volume 96, Mean Corpuscular Hemoglobin 31, Mean Corpuscular Hemoglobin Concent 33, Red Cell Distribution Width 14.4, Platelet Count 242, Mean Platelet Volume 9.7, Neutrophils (%) (Auto) 89H, Lymphocytes (%) (Auto) 6L, Monocytes (%) (Auto) 4, Eosinophils (%) (Auto) 0, Basophils (%) (Auto) 0, Neutrophils # (Auto) 9.3H, Lymphocytes # (Auto) 0.7L, Monocytes # (Auto) 0.4, Eosinophils # (Auto) 0.0, Basophils # (Auto) 0.0, Sodium Level 141, Potassium Level 3.2L, Chloride Level 101, Carbon Dioxide Level 30, Anion Gap 10, Blood Urea Nitrogen 29H, Creatinine 0.60, Estimat Glomerular Filtration Rate > 60, BUN/Creatinine Ratio 48, Glucose Level 88, Calcium Level 8.9, Phosphorus Level 2.3, Magnesium Level 2.0 10/21/19 05:29: Glucometer 110 Microbiology 10/08/19 Mycobacterial Culture - Preliminary, Resulted 10/07/19 C. difficile DNA Amplification - Final, Complete 09/26/19 Blood Culture - Final, Complete No growth Procedures NAME: [facility] REC#: [id number] PT STATUS: ADM IN : 1965 PHYSICIAN: JACLYN SAVAGE DO ADMIT DATE: 09/19/19 Signed Date of Exam:10/20/19 CHEST 1 VIEW, AP/PA ONLY INDICATION: Shortness of breath, pleural effusion. COMPARISON: 10/19/2019. FINDINGS: Single view of the chest demonstrates stable basilar atelectasis and infiltrate. Trace effusions are present. The heart is slightly enlarged without pulmonary edema. There is no pneumothorax. The right IJ catheter is stable. IMPRESSION: Unchanged aeration lungs. Dictated by: Dictated on workstation # [id number] Dict: 10/20/19 0634 Trans: 10/20/1938 [id number] Interpreted by: KATELYN BARRERA Electronically signed by: KATELYN BARRERA 10/20/19 0838 A/P: Assessment: Acute resp failure, likely due to COPD exacerbated by aspiration pneumonia Acute renal failure, likely ATN due to hypotension due to sepsis, resolved HTN - improved PAF/flutter, currently NSR Elevated troponin at presentation - likely type 2 [place] d/t hypoxia Card cath of 09/07/18: minimal CAD, LVEF 70-75%, elevated LVEDP Echo of 09/20/19: LVEF 50-55%, RVSP 35 mmHg H/o opiate addiction ETOH abuse Chronic tobacco use Fam h/o early CAD Hyperlipidemia Borderline DM II (fasting blood glucose on 09/07/18) Carotid u/s on 01/05/19: no significant dz Plan: * Complex management due to multiple comorbidities that are outlined above * Replenish lytes * Monitor labs DELROY TURNER Oct 20, 2019 08:58
--- NOTE | 2019-10-20 09:25 | Occupational Ther Daily Note ---
OT Current Status-Daily Note Subjective Pt lying in bed, eyes open and daughter in room when OT/PT walked into room. Pt would answer with one word. Pt would moan or cuss when moved. Mental Status/Objective Patient Orientation: Person Attachments: Central Line, Osorio Catheter, Telemetry ADL-Treatment Therapy Code Descriptions/Definitions Functional [place] Measure: 0=Not Assessed/NA 4=Minimal Assistance 1=Total Assistance 5=Supervision or Setup 2=Maximal Assistance 6=Modified [place] 3=Moderate Assistance 7=Complete IndependenceSCALE: Activities may be completed with or without assistive devices. 9-Rjipzxupbk-cckfkiu completes the activity by him/herself with no assistance fr om a helper. 5-Set-up or Clean-up Assistance-helper sets up or cleans up; patient completes activity. [place] assists only prior to or following the activity. 4-Supervision or Touching Assistance-helper provides verbal cues and/or touching/steadying and/or contact guard assistance as patient completes activity. Assistance may be provided throughout the activity or intermittently. 3-Partial/Moderate Assistance-helper does LESS THAN HALF the effort. Canby lifts, holds or supports trunk or limbs, but provides less than half the effort. 2-Substantial/Maximal Assistance-helper does MORE THAN HALF the effort. [place] lifts or holds trunk or limbs and provides more than half the effort. 4-Brinprhmi-anfbrg does ALL the effort. Patient does none of the effort to complete the activity. Or, the assistance of 2 or more helpers is required for the patient to complete the activity. If activity was not attempted, code reason: 7-Patient Refused. 9-Not Applicable-not attempted and the patient did not perform the activity before the current illness, exacerbation or injury. 10-Not Attempted due to Environmental Limitations-(lack of equipment, weather restraints, etc.). 88-Not Attempted due to Medical Conditions or Safety Concerns. Eating (QC): 1 Oral Hygiene (QC): 1 Shower/Bathe Self (QC): 1 Upper Body Dressing (QC): 1 Lower Body Dressing (QC): 1 On/Off Footwear: 1 Toileting Hygiene (QC): 1 Toilet Transfer (QC): 1 Other Treatment Co-treat with PT [id number]. Skills of 2 clinicians required due to pt's immobility, decreased activity tolerance, pt's decreased ability to follow directions. Pt requires verbal/physical cues for any movement. Assist x2 for bed mobility. Jacob lift transfer from bed to recliner. Pt demonstrated initial movement in shldrs with shldr flexion then to complete full flexion requires APROM. Trace movement noted in tricep and poor muscle tone during bicep. No trace movement for wrist or fingers noted. Swelling has decreased. DVT L upper arm being treated. Pt is more alert than yesterday. Pt answers with one word and eyes stay open longer. When asked to complete a movement, pt would start shaking head no before attempting then when attempting pt would do 2-3 and then stop. After therapy, pt sitting in recliner with feet elevated. Daughter present in room. Call light/phone in reach. All needs met in room. OT [facility] Goals [facility] Goals Time Frame: Oct 28, 2019 Eating (QC): 3 Oral Hygiene (QC): 3 Shower/Bathe Self (QC): 2 Upper Body Dressing (QC): 2 Additional Goals: 1-Demonstrate ADL Tasks, 2-Verbalize Understanding, 3- ImproveStrength/Lyn 1=Demonstrate adherence to instructed precautions during ADL tasks. 2=Patient will verbalize/demonstrate understanding of assistive devices/modifications for ADL. 3=Patient will improve strength/tolerance for activity to enable patient to perform ADL's. OT Education/Plan Problem List/Assessment Assessment: Decreased Activ Tolerance, Decreased Safety Aware, Decreased UE Strength, Dependent Transfers, Edema, Impaired Bed Mobility, Impaired Cognition, Impaired Coordination, Impaired Funct Balance, Impaired I ADL's, Impaired Self- Care Skills, Restricted Funct UE ROM Pt currently demonstrates impaired strength, mobility, and ADL functioning. Pt to benefit from skilled OT intervention for ADL training, strengthening, and mobility to increase level of independence and allow safe discharge plan. Discharge Recommendations Plan/Recommendations: Continue POC Treatment Plan/Plan of Care Patient would benefit from OT for education, treatment and training to promote independence in ADL's, mobility, safety and/or upper extremity function for ADL's. Plan of Care: ADL Retraining, Functional Mobility, UE Funct Exercise/Act Treatment Duration: Oct 28, 2019 Frequency: 5 times per week Estimated Hrs Per Day: .25 hour per day Rehab Potential: Guarded Time/GCodes Start Time: 09:02 Stop Time: 09:19 Total Time Billed (hr/min): 17 Billed Treatment Time 1 visit-FA 1 (17 min) TY REAGAN Oct 20, 2019 09:25
--- NOTE | 2019-10-20 09:26 | Physical Therapy Daily Note ---
PT Daily Note-Current Subjective Patient in bed pre tx, agrees to PT, will be co-treating with OT due to poor patient mobility, strength, endurance, poor sitting balance, the inability to move on her own, the need to coordinate UE and LE during activity. Appearance Patient in recliner post tx with nurse call, tray, legs elevated and arms on pillow support, family in the room. Mental Status Patient Orientation: Person, [place] Attachments: Oxygen, Osorio Catheter Transfers SCALE: Activities may be completed with or without assistive devices. 8-Aiscdraaxm-uiyhdll completes the activity by him/herself with no assistance from a helper. 5-Set-up or Clean-up Assistance-helper sets up or cleans up; patient completes activity. [place] assists only prior to or following the activity. 4-Supervision or Touching Assistance-helper provides verbal cues and/or touching/steadying and/or contact guard assistance as patient completes activity. Assistance may be provided throughout the activity or intermittently. 3-Partial/Moderate Assistance-helper does LESS THAN HALF the effort. Butler lifts, holds or supports trunk or limbs, but provides less than half the effort. 2-Substantial/Maximal Assistance-helper does MORE THAN HALF the effort. Butler lifts or holds trunk or limbs and provides more than half the effort. 1-Jfvhiwfvs-teuosf does ALL the effort. Patient does none of the effort to complete the activity. Or, the assistance of 2 or more helpers is required for the patient to complete the activity. If activity was not attempted, code reason: 7-Patient Refused. 9-Not Applicable-not attempted and the patient did not perform the activity before the current illness, exacerbation or injury. 10-Not Attempted due to Environmental Limitations-(lack of equipment, weather restraints, etc.). 88-Not Attempted due to Medical Conditions or Safety Concerns. Roll Left & Right (QC): 1 Chair/Avu-ve-Yhsoe Xfer(QC): 1 Patient rolled several times to get cream on bottom and ajay sling under her and transferred to recliner via ajay. Patient did not participate in rolling, it was dependent. Weight Bearing Right Lower Extremity: Right Weight Bearing/Tolerated Left Lower Extremity: Left Weight Bearing/Tolerated Exercises Supine Ex: Ankle pumps, Quad Set, Glut sets Patient performed the exercises reclined, she performed the ankle pumps with AAROM but only performed a few QS and GS before saying that was enough and not participating anymore. Treatments rolling, transfer, LE exercise Assessment Current Status: Poor Progress poor motivation and strength PT Skilled Nursing Goals Personal Computer Specialist Goals PT Personal Computer Specialist Goals Time Frame: Oct 29, 2019 Roll Left & Right (QC): 2 Sit to Lying (QC): 2 Lying-Sitting on Side/Bed(QC): 2 PT Plan Problem List Problem List: Activity Tolerance, Functional Strength, Safety, Balance, Gait, Transfer, Bed Mobility, ROM Treatment/Plan Treatment Plan: Continue Plan of Care Treatment Plan: Bed Mobility, Concurrent Therapy, Education, Functional Activity Lyn, Functional Strength, Gait, Safety, Therapeutic Exercise, Transfers Treatment Duration: Oct 29, 2019 Frequency: 6 times per week Estimated Hrs Per Day: .25 hour per day (to .5) Patient and/or Family Agrees t: Yes Safety Risks/Education Patient Education: Transfer Techniques, Correct Positioning, Safety Issues Teaching Recipient: Patient Teaching Methods: Demonstration, Discussion Response to Teaching: Reinforcement Needed Time/GCodes Time In: 901 Time Out: 917 Total Billed Treatment Time: 16 Total Billed Treatment 1 visit FA GLENNA VILLATORO PT Oct 20, 2019 09:26
--- NOTE | 2019-10-20 11:05 | NUR ---
PALLIATIVE CARE RN in to see patient at the request o . Patient is sitting up in the chair head hanging forward and teeth falling out of her mouth. She awakens to verbal stimuli and corrects her teeth. When engaged she does communicated verbally and with head shakes. We discussed her extreme weakness, she voices fear of having another seizure and her desire to have a bowel movement. Patient assisted with eating a popsicle...she is unable to move her fingers b/l. I discussed hospice either at the SNF or her home with her daughters. She indicates that she would like to talk to her parents first. Will continue to assist as needed.
[2019-10-20] MEDS ORDERED: FLEET ENEMA ADULT 1 EA BTL PR PRN (11:15)
[2019-10-20] MEDS ORDERED: SENNA W/DOCUSATE (SENOKOT S) TABLET PO PRN (11:15)
[2019-10-20 11:26] VITALS: BP 103/67
[2019-10-20] MEDS ORDERED: FLEET ENEMA ADULT 1 EA BTL PR NR (11:33)
--- NOTE | 2019-10-20 12:03 | Progress Note - Hospitalist ---
Subjective HPI/CC On Admission Date Seen by Provider: Oct 20, 2019 Time Seen by Provider: 10:30 Shortness of breath Subjective/Events-last exam Pt is sitting up in chair. Seems more lethargic today. Denies any pain or needs. Objective Exam Vital Signs Vital Signs Date Time Temp Pulse Resp B/P (MAP) Pulse Ox O2 Delivery O2 Flow Rate FiO2 10/20/19 11:26 35.9 64 16 103/67 (79) 97 High Flow N/C 1.00 10/20/19 08:00 60 Capillary Refill : Less Than 3 SecondsLess Than 3 Seconds General Appearance: Chronically ill, Obese, Other (lethargic) Respiratory: Lungs Clear, No Respiratory Distress Cardiovascular: Regular Rate, Rhythm, No Murmur Gastrointestinal: Normal Bowel Sounds, Soft Extremity: Swelling Results/Procedures Lab Laboratory Tests 10/20/19 06:35 Patient resulted labs reviewed. Imaging: Reviewed Imaging Report Assessment/Plan Assessment and Plan Assess & Plan/Chief Complaint ARDS Acute respiratory failure with hypoxia COPD with acute exacerbation VAP - Prolonged intubation, including reintubation, now extubated on Vapotherm - Pulm consulted, appreciate recs - Sputum and bronchial cultures consistently growing Pseudomonas - Continue Bumex - Abx completed today - Contain Inhaled Tobramycin - Continue steroids orally now - Will need slow taper AFIB/Flutter with RVR HTN - Metoprolol, Vasotec - Cardiology consulted, appreciate recs - Continue Xarelto Seizure like activity - Continue Keppra RLE DVT right upper extremity DVT - Continue Xarelto Steroid-induced hyperglycemia - Continue Levemir - SSI Debility - PT/OT - IRU consult, currently denied - 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 - Consider hospice care with placement even, palliative care consulted, appreciate recs Alcohol abuse Morbid obesity - Clinically significant, no acute management needs Critical Care Critically Ill Patient Diagnosis/Problems Diagnosis/Problems (1) ARDS (adult respiratory distress syndrome) Status: Acute (2) Alcohol use Status: Acute (3) Atrial fibrillation with rapid ventricular response Status: Acute (4) Bilateral pneumonia Status: Acute Qualifiers: Pneumonia type: due to unspecified organism Lung location: lower lobe of lung Qualified Codes: J18.1 - Lobar pneumonia, unspecified organism (5) Acute respiratory failure Status: Acute Qualifiers: Respiratory failure complication: hypoxia Qualified Codes: J96.01 - Acute respiratory failure with hypoxia Clinical Quality Measures DVT/VTE Risk/Contraindication: Risk Factor Score Per Nursin RFS Level Per Nursing on Admit: 4+=Very High BROOKLYN DUNLAP MD Oct 20, 2019 12:03
--- NOTE | 2019-10-20 12:56 | Progress Note - Cardiology ---
Cardiology SOAP Progress Note Subjective: Gen weakness and malaise Poor appetite. No N/V No cp or palp or syncope Short of breath with mild exertion Objective: I&O/Vital Signs 10/20/19 10/20/19 10/20/19 10/20/19 01:00 02:58 04:20 05:00 Temp 35.6 36.3 Pulse 80 77 Resp 16 B/P (MAP) 118/75 (89) Pulse Ox 96 93 O2 Delivery Nasal Cannula High Flow N/C O2 Flow Rate 1.00 0.50 10/20/19 10/20/19 10/20/19 10/20/19 07:00 08:00 08:50 11:26 Temp 36.4 35.9 Pulse 84 67 64 Resp 16 16 B/P (MAP) 113/67 (82) 103/67 (79) Pulse Ox 93 93 97 O2 Delivery High Flow N/C High Flow N/C High Flow N/C O2 Flow Rate 1.00 1.00 1.00 FiO2 60 10/20/19 00:00 Intake Total 1440 ml Output Total 1600 ml Balance -160 ml Weight (Pounds): 218 Weight (Ounces): 0.0 Weight (Calculated Kilograms): 98.884203 Constitutional: AAO x 3, well-developed, well-nourished Respiratory: No accessory muscle use, No respiratory distress; chest expansion is symmetric, chest is bilaterally symmetric (good air entry) Cardiovascular: regular rate-rhythm; No JVD; S1 and S2, systolic murmur (soft MARIE at card base) Gastrointestional: No tender, No soft, No guarding, No rebound; audible bowel sounds Extremities: other (mod bilat LE swelling); No clubbing, No cyanosis Neurologic/Psychiatric: oriented x 3, other (moves all limbs equally) Skin: warm/dry; No rash on exposed areas, No ulcerations on exposed areas Results/Procedures: Labs Laboratory Tests 10/19/19 15:54: Glucometer 171H 10/19/19 20:46: Glucometer 172H 10/20/19 06:07: Glucometer 143H 10/20/19 06:35: White Blood Count 10.1, Red Blood Count 3.00L, Hemoglobin 9.5L, Hematocrit 30L, Mean Corpuscular Volume 98, Mean Corpuscular Hemoglobin 32, Mean Corpuscular Hemoglobin Concent 32, Red Cell Distribution Width 14.6H, Platelet Count 258, Mean Platelet Volume 9.8, Neutrophils (%) (Auto) 89H, Lymphocytes (%) (Auto) 7L, Monocytes (%) (Auto) 4, Eosinophils (%) (Auto) 0, Basophils (%) (Auto) 0, Neutrophils # (Auto) 8.9H, Lymphocytes # (Auto) 0.7L, Monocytes # (Auto) 0.4, Eosinophils # (Auto) 0.0, Basophils # (Auto) 0.0, Neutrophils % (Manual) 94, Lymphocytes % (Manual) 3, Monocytes % (Manual) 2, Eosinophils % (Manual) 0, Basophils % (Manual) 0, Band Neutrophils 1, Toxic Granulation 1+, Anisocytosis SLIGHT, Sodium Level 144, Potassium Level 3.5L, Chloride Level 103, Carbon Dioxide Level 29, Anion Gap 12, Blood Urea Nitrogen 33H, Creatinine 0.67, Estimat Glomerular Filtration Rate > 60, BUN/Creatinine Ratio 49, Glucose Level 135H, Calcium Level 9.3, Phosphorus Level 2.5, Magnesium Level 2.0 10/20/19 11:29: Glucometer 170H Microbiology 10/08/19 Mycobacterial Culture - Preliminary, Resulted 10/07/19 C. difficile DNA Amplification - Final, Complete 09/26/19 Blood Culture - Final, Complete No growth Laboratory Tests 10/19/19 02:18 10/20/19 06:35 A/P: Assessment: Gen weakness after long illness Acute resp failure, likely due to COPD exacerbated by aspiration pneumonia Acute renal failure, likely ATN due to hypotension due to sepsis, resolved HTN - improved PAF/flutter, currently NSR Elevated troponin at presentation - likely type 2 [place] d/t hypoxia Card cath of 09/07/18: minimal CAD, LVEF 70-75%, elevated LVEDP Echo of 09/20/19: LVEF 50-55%, RVSP 35 mmHg H/o opiate addiction ETOH abuse Chronic tobacco use Fam h/o early CAD Hyperlipidemia Borderline DM II (fasting blood glucose on 09/07/18) Carotid u/s on 01/05/19: no significant dz Plan: * Complex management due to multiple comorbidities that are outlined above * Replenish lytes * Monitor labs JESS CONLEY MD FACP FAC CCDS Oct 20, 2019 12:56
--- NOTE | 2019-10-20 14:29 | NUR ---
"RD ASSESSMENT PMHx: COPD; GERD; HTN; hx of ETOH use/abuse PT INTERACTION: Pt was semi-awake and pleasant during nutrition follow-up. Note family present at bedside. Pt states current appetite is poor and has been for some time. Note avg PO intake <25% x4d, per chart review. Family states recent episodes of n/v/c since last assessment. Note last BM was 10/18 and pt not currently on bowel regimen, per chart review. Family states pt is not tolerating her current diet order of DYS2 Mechanically Altered diet, stating she will look at the food and say she isn't going to eat it. Note recent 16# wt loss x1mon per chart review. This wt lost appears to be fluid loss as pt has had recent avg urine output of 2L/d, per chart review. ABNORMAL NUTRITION-RELATED LAB VALUES LOW: K 3.5 HIGH: BUN 33; glu 135 Est. kcal needs: 9128-0206 kcal | 15-20 kcal/kg Est. Pro needs: 66-83 g Pro | 0.8-1.0 g Pro/kg PES STATEMENT: Inadequate oral intake (NI-2.1) related to loss of appetite | nausea | vomiting | constipation as evidenced by pt (family) interview | avg PO intake <25% x4d INTERVENTION: Continue with current diet order of DYS2 Mechanically Altered diet. Pt may benefit from swallow evaluation to advance diet for tolerance. Add Ensure Enlive (vary) to meals TID for increased kcal intake. Provides 350 kcal and 13 g Pro per serving. Will continue to follow and reassess as pt needs and status change. MONITOR/EVALUATE: PO Intake; Plan of Care; Hydration Status; Weight Status; Lab Values Pancho Rodriguez, MS, RD, LD"
--- NOTE | 2019-10-20 15:31 | NUR ---
SPOKE WITH RESPIRATORY ABOUT ART GAS DRAW AND TOBAMYCIN NOT DONE YET. SALOMÓN SAID SHE WOULD CHECK AND GET BACK TO ME
[2019-10-20 16:00] VITALS: BP 111/66
[2019-10-20] MEDS: RIVAROXABAN 20 MG TABLET (XARELTO) PO SCH (17:09)
[2019-10-20] MEDS: TOBRAMYCIN (NEBCIN) 80 MG/2 ML VIAL IH SCH ×2 (19:00→23:07)
[2019-10-20 19:34] VITALS: BP 105/63
[2019-10-21 00:35] VITALS: BP 108/67
[2019-10-21] MEDS: RT-ALBUTEROL/IPRATROPIUM 3 ML (DUONEB) VIAL INH SCH ×6 (02:09→21:50)
[2019-10-21] MEDS: ACETAMINOPHEN 325 MG TABLET PO PRN ×2 (02:37→16:56)
[2019-10-21 03:40] VITALS: BP 108/68
[2019-10-21 05:25] LABS: BASOPHILS % (AUTO) 0 % (0-10); EOSINOPHILS % (AUTO) 0 % (0-10); HEMATOCRIT 27 % (35-52); HEMOGLOBIN 8.9 G/DL (11.5-16.0); LYMPHOCYTES # (AUTO) 0.7 X 10^3 (1.0-4.0); LYMPHOCYTES % (AUTO) 6 % (12-44); MEAN CORPUSCULAR HEMOGLOBIN 31 PG (25-34); MEAN CORPUSCULAR HGB CONC 33 G/DL (32-36); MEAN CORPUSCULAR VOLUME 96 FL (80-99); MEAN PLATELET VOLUME 9.7 FL (7.4-10.4); MONOCYTES # (AUTO) 0.4 X 10^3 (0.0-1.0); MONOCYTES % (AUTO) 4 % (0-12); NEUTROPHILS # (AUTO) 9.3 X 10^3 (1.8-7.8); NEUTROPHILS % (AUTO) 89 % (42-75); PLATELET COUNT 242 10^3/uL (130-400); RED CELL DISTRIBUTION WIDTH 14.4 % (10.0-14.5); WHITE BLOOD COUNT 10.4 10^3/uL (4.3-11.0)
[2019-10-21 05:42] LABS: BUN/CREATININE RATIO 48; CALCIUM 8.9 MG/DL (8.5-10.1); CARBON DIOXIDE 30 MMOL/L (21-32); CHLORIDE 101 MMOL/L (98-107); GFR ESTIMATED > 60; GLUCOSE 88 MG/DL (70-105); PHOSPHORUS 2.3 MG/DL (2.3-4.7); POTASSIUM 3.2 MMOL/L (3.6-5.0); SODIUM 141 MMOL/L (135-145)
[2019-10-21] MEDS: inSUlin ASPART (NovoLOG) 1 UNIT/0.01 ML (CHARGE PER UNIT) SC SCH ×4 (06:11→20:48)
[2019-10-21] MEDS: predniSONE 20 MG TAB PO SCH (06:12)
[2019-10-21] MEDS: guaiFENesin SYRUP 100 MG/5 ML 10 ML (ROBITUSSIN SF) PO SCH ×4 (06:12→21:32)
--- NOTE | 2019-10-21 06:38 | Diagnostic Imaging Report ---
INDICATION: Shortness of breath Portable chest 3:57 AM Right IJ central line tip projects over the SVC. There is minimal basilar atelectasis. There are no effusions or pneumothoraces. IMPRESSION: Minimal basilar atelectasis is unchanged from the previous day. Dictated by: Dictated on workstation # [id number]
[2019-10-21] MEDS: TOBRAMYCIN (NEBCIN) 80 MG/2 ML VIAL IH SCH ×2 (07:27→18:54)
[2019-10-21 08:00] VITALS: BP 109/63
--- NOTE | 2019-10-21 08:26 | Progress Note - Cardiology ---
Cardiology SOAP Progress Note Subjective: Generalized weakness. States she is feeling better today. Feels breathing is much better. No c/o CP or palpitations. Objective: I&O/Vital Signs 10/25/19 00:00 Intake Total 600 ml Balance 600 ml Weight (Pounds): 218 Weight (Ounces): 0.0 Weight (Calculated Kilograms): 98.412030 Constitutional: AAO x 3, well-developed, well-nourished Respiratory: No accessory muscle use, No respiratory distress; chest expansion is symmetric, chest is bilaterally symmetric (good air entry) Cardiovascular: regular rate-rhythm; No JVD; S1 and S2, systolic murmur (soft MARIE at card base) Gastrointestional: No tender, No soft, No guarding, No rebound; audible bowel sounds Extremities: other (mod bilat LE swelling); No clubbing, No cyanosis Neurologic/Psychiatric: oriented x 3, other (moves all limbs equally) Skin: warm/dry; No rash on exposed areas, No ulcerations on exposed areas Results/Procedures: Labs Laboratory Tests 10/24/19 11:14: Glucometer 168H Microbiology 10/08/19 Mycobacterial Culture - Preliminary, Resulted 10/07/19 C. difficile DNA Amplification - Final, Complete 09/26/19 Blood Culture - Final, Complete No growth Procedures NAME: ZEKE MEDELLIN [facility] REC#: [id number] PT STATUS: ADM IN : 1965 PHYSICIAN: JACLYN SAVAGE DO ADMIT DATE: 09/19/19 Draft Date of Exam:10/21/19 CHEST 1 VIEW, AP/PA ONLY INDICATION: Shortness of breath Portable chest 3:57 AM Right IJ central line tip projects over the SVC. There is minimal basilar atelectasis. There are no effusions or pneumothoraces. IMPRESSION: Minimal basilar atelectasis is unchanged from the previous day. Dictated on workstation # [id number] Dict: 10/21/19 0635 Trans: 10/21/19 0638 JOHN [id number] Interpreted by: GENA POWELL MD Electronically signed by: A/P: Assessment: Gen weakness after long illness Acute resp failure, likely due to COPD exacerbated by aspiration pneumonia Acute renal failure, likely ATN due to hypotension due to sepsis, resolved HTN - improved PAF/flutter, currently NSR Elevated troponin at presentation - likely type 2 DC d/t hypoxia Card cath of 09/07/18: minimal CAD, LVEF 70-75%, elevated LVEDP Echo of 09/20/19: LVEF 50-55%, RVSP 35 mmHg H/o opiate addiction ETOH abuse Chronic tobacco use Fam h/o early CAD Hyperlipidemia Borderline DM II (fasting blood glucose on 09/07/18) Carotid u/s on 01/05/19: no significant dz Plan: * Complex management due to multiple comorbidities that are outlined above * Replenish lytes * Monitor labs DELROY TURNER Oct 21, 2019 08:26
[2019-10-21] MEDS ORDERED: KCL 20 MEQ TAB (K-DUR) PO NR ×2 (08:30→12:00)
--- NOTE | 2019-10-21 08:41 | Pulmonary Progress Note ---
Subjective Time Seen by a Provider: 08:40 Sepsis Event Evaluation Height, Weight, BMI Height: 5'5.00" Weight: 218lbs. 0.0oz. 98.654391sj; 34.07 BMI Method:Stated Exam Exam Vital Signs Date Time Temp Pulse Resp B/P (MAP) Pulse Ox O2 Delivery O2 Flow Rate FiO2 10/21/19 07:29 91 Room Air 10/21/19 07:28 91 Room Air 10/21/19 07:00 78 10/21/19 03:40 35.8 73 18 108/68 (81) 94 Room Air 10/21/19 02:09 90 Room Air 10/21/19 01:00 76 10/21/19 00:35 35.4 66 16 108/67 (81) 93 Room Air 10/20/19 20:33 81 10/20/19 20:00 Room Air 10/20/19 19:34 36.0 78 20 105/63 (77) 93 Room Air 10/20/19 18:51 98 Nasal Cannula 1.00 10/20/19 16:00 35.8 81 20 111/66 (81) 94 High Flow N/C 1.00 10/20/19 14:50 96 Nasal Cannula 1.00 10/20/19 11:26 35.9 64 16 103/67 (79) 97 High Flow N/C 1.00 10/20/19 08:50 36.4 67 16 113/67 (82) 93 High Flow N/C 1.00 I & O 10/21/19 07:00 Intake Total 2790 ml Output Total 1575 ml Balance 1215 ml Height & Weight Height: 5'5.00" Weight: 218lbs. 0.0oz. 98.611838le; 34.07 BMI Method:Stated General Appearance: Chronically ill, Obese HEENT: PERRL/EOMI Neck: Normal Inspection, Supple Respiratory: No Respiratory Distress, Crackles, Decreased Breath Sounds Cardiovascular: Regular Rate, Rhythm, No Murmur Capillary Refill: Less Than 3 Seconds Gastrointestinal: soft, no organomegaly, no pulsatile mass Extremity: Swelling Neurologic/Psychiatric: Alert, Oriented x3 Skin: Normal Color, Warm/Dry Lymphatic: No Adenopathy Results Lab Laboratory Tests 10/20/19 06:35 10/21/19 05:19 Assessment/Plan Assessment/Plan Pseudomonus PNA -S/p Merrem, -ContinueTobi SVNS -- -CXR reviewed Atelectasis -Increase activity -IS Seizures -Keppra. Anemia -Monitor COPDAE -SVNS q 4 -Prednisone Afib/flutter RLE DVT -Lovenox Alcohol abuse Morbid obesity JACLYN SAVAGE DO Oct 21, 2019 08:41
--- NOTE | 2019-10-21 08:41 | Progress Note - Hospitalist ---
Subjective HPI/CC On Admission Date Seen by Provider: Oct 21, 2019 Time Seen by Provider: 08:39 Shortness of breath Subjective/Events-last exam Pt looks much better today. more alert. no complaints. Off oxygen. Objective Exam Vital Signs Vital Signs Date Time Temp Pulse Resp B/P (MAP) Pulse Ox O2 Delivery O2 Flow Rate FiO2 10/21/19 07:29 91 Room Air 10/21/19 07:00 78 10/21/19 03:40 35.8 18 108/68 (81) 10/20/19 18:51 1.00 10/20/19 08:00 60 Capillary Refill : Less Than 3 SecondsLess Than 3 Seconds General Appearance: No Apparent Distress, Chronically ill Respiratory: Lungs Clear, No Respiratory Distress Cardiovascular: Regular Rate, Rhythm, No Murmur Neurologic/Psychiatric: Alert, Oriented x3 Results/Procedures Lab Laboratory Tests 10/21/19 05:19 Patient resulted labs reviewed. Imaging: Reviewed Imaging Report Assessment/Plan Assessment and Plan Assess & Plan/Chief Complaint ARDS Acute respiratory failure with hypoxia COPD with acute exacerbation VAP - Prolonged intubation, including reintubation, now extubated on room air - Pulm consulted, appreciate recs - Sputum and bronchial cultures consistently growing Pseudomonas - Continue Bumex - Abx completed today - Continue Inhaled Tobramycin - Continue steroids orally now - Will need slow taper AFIB/Flutter with RVR HTN - Metoprolol, Vasotec - Cardiology consulted, appreciate recs - Continue Xarelto Seizure like activity - Continue Keppra RLE DVT right upper extremity DVT - Continue Xarelto Steroid-induced hyperglycemia - Continue Levemir - SSI Debility - PT/OT - IRU consult, currently denied - Will likely need NH placement for fci care- patient agreeable to NH placement - Consider hospice care with placement even, palliative care consulted, appreciate recs Alcohol abuse Morbid obesity - Clinically significant, no acute management needs Critical Care Critically Ill Patient Diagnosis/Problems Diagnosis/Problems (1) ARDS (adult respiratory distress syndrome) Status: Acute (2) Alcohol use Status: Acute (3) Atrial fibrillation with rapid ventricular response Status: Acute (4) Bilateral pneumonia Status: Acute Qualifiers: Pneumonia type: due to unspecified organism Lung location: lower lobe of lung Qualified Codes: J18.1 - Lobar pneumonia, unspecified organism (5) Acute respiratory failure Status: Acute Qualifiers: Respiratory failure complication: hypoxia Qualified Codes: J96.01 - Acute respiratory failure with hypoxia Clinical Quality Measures DVT/VTE Risk/Contraindication: Risk Factor Score Per Nursin RFS Level Per Nursing on Admit: 4+=Very High BROOKLYN DUNLAP MD Oct 21, 2019 08:41
[2019-10-21] MEDS: FAMOTIDINE 20 MG (PEPCID) TABLET PO SCH ×2 (09:36→20:58)
--- NOTE | 2019-10-21 09:36 | Occupational Ther Daily Note ---
OT Current Status-Daily Note Subjective Pt more alert, today. Pt agrees to therapy. Pt talking more. Pt on room air, sat level 90%. Mental Status/Objective Patient Orientation: Person, Place, Time, Situation Attachments: Central Line, Osorio Catheter ADL-Treatment Pt dependent for bed mobility, transfers and ADLs. PT/OT co-treat [id number]. Skills of 2 clinicians required due to pt's dependent mobility, functional movement and transfers. Assist x2 for cleansing after incontinent BM in bed. Assist x2 for bed mobility. Assist x2 to transfer with ajay lift. Pt did demonstrate trace movement in L thumb and AAROM in B elbow and B shldr. Edema still present in B hands. After therapy, pt sitting in recliner with call light/phone in reach. All needs met in room. Therapy Code Descriptions/Definitions Functional Eddy Measure: 0=Not Assessed/NA 4=Minimal Assistance 1=Total Assistance 5=Supervision or Setup 2=Maximal Assistance 6=Modified Eddy 3=Moderate Assistance 7=Complete IndependenceSCALE: Activities may be completed with or without assistive devices. 9-Sizfxxaahi-uxhtvkd completes the activity by him/herself with no assistance from a helper. 5-Set-up or Clean-up Assistance-helper sets up or cleans up; patient completes activity. [place] assists only prior to or following the activity. 4-Supervision or Touching Assistance-helper provides verbal cues and/or touching/steadying and/or contact guard assistance as patient completes activity. Assistance may be provided throughout the activity or intermittently. 3-Partial/Moderate Assistance-helper does LESS THAN HALF the effort. [place] lifts, holds or supports trunk or limbs, but provides less than half the effort. 2-Substantial/Maximal Assistance-helper does MORE THAN HALF the effort. [place] lifts or holds trunk or limbs and provides more than half the effort. 5-Hfclmagau-xsytzz does ALL the effort. Patient does none of the effort to complete the activity. Or, the assistance of 2 or more helpers is required for the patient to complete the activity. If activity was not attempted, code reason: 7-Patient Refused. 9-Not Applicable-not attempted and the patient did not perform the activity before the current illness, exacerbation or injury. 10-Not Attempted due to Environmental Limitations-(lack of equipment, weather restraints, etc.). 88-Not Attempted due to Medical Conditions or Safety Concerns. Toileting Hygiene (QC): 1 Toilet Transfer (QC): 1 OT Floor Coverer Goals [facility] Goals Time Frame: Oct 28, 2019 Eating (QC): 3 Oral Hygiene (QC): 3 Shower/Bathe Self (QC): 2 Upper Body Dressing (QC): 2 Additional Goals: 1-Demonstrate ADL Tasks, 2-Verbalize Understanding, 3- ImproveStrength/Lyn 1=Demonstrate adherence to instructed precautions during ADL tasks. 2=Patient will verbalize/demonstrate understanding of assistive devices/modifications for ADL. 3=Patient will improve strength/tolerance for activity to enable patient to perform ADL's. OT Education/Plan Problem List/Assessment Assessment: Decreased Activ Tolerance, Decreased Safety Aware, Decreased UE Strength, Dependent Transfers, Edema, Impaired Bed Mobility, Impaired Cognition, Impaired Coordination, Impaired Funct Balance, Impaired I ADL's, Impaired Self- Care Skills, Restricted Funct UE ROM Pt currently demonstrates impaired strength, mobility, and ADL functioning. Pt to benefit from skilled OT intervention for ADL training, strengthening, and mobility to increase level of independence and allow safe discharge plan. Discharge Recommendations Plan/Recommendations: Continue POC Treatment Plan/Plan of Care Patient would benefit from OT for education, treatment and training to promote independence in ADL's, mobility, safety and/or upper extremity function for ADL's. Plan of Care: ADL Retraining, Functional Mobility, UE Funct Exercise/Act Treatment Duration: Oct 28, 2019 Frequency: 5 times per week Estimated Hrs Per Day: .25 hour per day Rehab Potential: Guarded Time/GCodes Start Time: 09:07 Stop Time: 09:30 Total Time Billed (hr/min): 23 Billed Treatment Time 1 visit-ADL 1 (13 min) NM 1 (10 min) TY REAGAN Oct 21, 2019 09:36
[2019-10-21] MEDS: guaiFENesin (MUCINEX) 600 MG TAB PO SCH ×2 (09:37→20:58)
[2019-10-21] MEDS: lisINopril 10 MG (PRINIVIL) TABLET PO SCH (09:37)
[2019-10-21] MEDS: KCL 20 MEQ POWDER FOR ORAL SOLUTION PO SCH (09:37)
[2019-10-21] MEDS: amLODIPine 5 MG (NORVASC) TAB PO SCH (09:37)
[2019-10-21] MEDS: BUMETANIDE 1 MG (BUMEX) TAB PO SCH (09:37)
[2019-10-21] MEDS: AMIODARONE 200 MG (CORDARONE) TAB PO SCH ×2 (09:37→20:58)
[2019-10-21] MEDS: meTOprolol TARTRATE 50 MG (LOPRESSOR) TAB PO SCH ×2 (09:37→21:02)
[2019-10-21] MEDS: LEVETIRACETAM 500 MG (KEPPRA) TAB PO SCH ×2 (09:38→20:58)
--- NOTE | 2019-10-21 09:38 | NUR ---
CM DISCHARGE PLANNING: Referral sent to [facility] yesterday for skilled therapies. It appears that the patient does not have any skilled benefit coverage under her insurance however [facility] is partnering with [facility] of [place] to see if there will be any covered days for this patient. [facility] will also not have a bed available until sometime next week so we did discuss going to their sister facility of [facility] until a bed becomes available at [facility]. This was all discussed with Helene et she is in agreement with this POC. Helene is also aware that she likely does not have coverage for skilled under her insurance et there will be an out of pocket cost. If the patient does not have any coverage for skilled then the approximate amount per day will be $170.00 that will be the patients responsibility. When this is confirmed I will discuss with the patient.
--- NOTE | 2019-10-21 09:57 | Physical Therapy Daily Note ---
PT Daily Note-Current Subjective Patient in bed pre tx, agrees to PT, will be co-treating with OT due to poor patient mobility, strength, endurance, sitting balance, inability to move extremities, the need to coordinate UE and LE during activity. Patient is less lethargic, more talkative, more interactive. Appearance Patient in recliner post tx with legs elevated and on pillow, arms with pillow support, has nurse call, tray, all needs met. Mental Status Patient Orientation: Person, Place, Situation Attachments: Osorio Catheter Transfers SCALE: Activities may be completed with or without assistive devices. 7-Avqddggswt-oyerjsx completes the activity by him/herself with no assistance from a helper. 5-Set-up or Clean-up Assistance-helper sets up or cleans up; patient completes activity. [place] assists only prior to or following the activity. 4-Supervision or Touching Assistance-helper provides verbal cues and/or touching/steadying and/or contact guard assistance as patient completes activi ty. Assistance may be provided throughout the activity or intermittently. 3-Partial/Moderate Assistance-helper does LESS THAN HALF the effort. [place] lifts, holds or supports trunk or limbs, but provides less than half the effort. 2-Substantial/Maximal Assistance-helper does MORE THAN HALF the effort. [place] lifts or holds trunk or limbs and provides more than half the effort. 5-Dqigyapsl-kbyggt does ALL the effort. Patient does none of the effort to complete the activity. Or, the assistance of 2 or more helpers is required for the patient to complete the activity. If activity was not attempted, code reason: 7-Patient Refused. 9-Not Applicable-not attempted and the patient did not perform the activity before the current illness, exacerbation or injury. 10-Not Attempted due to Environmental Limitations-(lack of equipment, weather restraints, etc.). 88-Not Attempted due to Medical Conditions or Safety Concerns. Roll Left & Right (QC): 1 Chair/Huv-by-Mlujd Xfer(QC): 1 Patient had to try to assist to roll several times for cleaning a BM and getting ajay sling under her, dependent for this. Patient hoyered to recliner. Weight Bearing Right Lower Extremity: Right Weight Bearing/Tolerated Left Lower Extremity: Left Weight Bearing/Tolerated Exercises Supine Ex: Ankle pumps (AAROM), Quad Set, Glut sets Supine Reps: 10 supine exercises performed in recliner with legs elevated Treatments transfers, LE exercise Assessment Current Status: Poor Progress no improvement in mobility PT Catering Service Manager Goals Mcfp Goals PT Catering Service Manager Goals Time Frame: Oct 29, 2019 Roll Left & Right (QC): 2 Sit to Lying (QC): 2 Lying-Sitting on Side/Bed(QC): 2 PT Plan Problem List Problem List: Activity Tolerance, Functional Strength, Safety, Balance, Gait, Transfer, Bed Mobility, ROM Treatment/Plan Treatment Plan: Continue Plan of Care Treatment Plan: Bed Mobility, Concurrent Therapy, Education, Functional Activity Lyn, Functional Strength, Gait, Safety, Therapeutic Exercise, Transfers Treatment Duration: Oct 29, 2019 Frequency: 6 times per week Estimated Hrs Per Day: .25 hour per day (to .5) Patient and/or Family Agrees t: Yes Safety Risks/Education Patient Education: Correct Positioning, Safety Issues Teaching Recipient: Patient Teaching Methods: Demonstration, Discussion Response to Teaching: Reinforcement Needed Time/GCodes Time In: 0907 Time Out: 0930 Total Billed Treatment Time: 23 Total Billed Treatment 1 visit FA 23' GLENNA PRADHAN PT Oct 21, 2019 09:57
[2019-10-21 11:49] VITALS: BP 110/64
--- NOTE | 2019-10-21 15:38 | NUR ---
CM DISCHARGE PLANNING: [facility] Ela contacted this nurse to let me know that the patient does not have insurance coverage for skilled et that room et board would be her responsibility. Ela reports that the cost would be $200.00 per day. Patient is in agreement to pay what she needs to pay to receive the rehabilitation that she needs. Communicated this to Ela et she asked that I send the referral to [facility] so that they can take the patient. Faxed referral to [facility]. I contacted [facility] et spoke with Erika as [facility] are out of the building. Erika indicates that they will be able to review on Thursday to see if they can accept the patient. Updated primary care physician et she reports agreement with this plan of discharging on Thursday if patient is medically stable for discharge and we have an accepting facility.
--- NOTE | 2019-10-21 16:00 | NUR ---
REPORT RECEIVED FROM GIOVANNY MACHADO. ASSUMED CARE OF THE PATIENT AT THIS TIME. PATIENT IS RESTING COMFORTABLY IN BED WATCHING TELEVISION. WILL CONTINUE TO MONITOR.
[2019-10-21 16:14] VITALS: BP 110/70
[2019-10-21] MEDS: RIVAROXABAN 20 MG TABLET (XARELTO) PO SCH (16:57)
[2019-10-21 19:25] VITALS: BP 111/72
--- NOTE | 2019-10-21 20:41 | NUR ---
PT REQUESTED TO HAVE POTASSIUM POWDER SWITCHED TO "PILL FORM BECAUSE THE TASTE IS SO NASTY." THIS RN CONTACTED DR. DUNLAP. NEW ORDERS OBTAINED, SEE ORDER HX.
[2019-10-21] MEDS: ALPRAZolam 0.5 MG (XANAX) TAB PO PRN (20:58)
[2019-10-21] MEDS: KCL 20 MEQ TAB (K-DUR) PO SCH (21:31)
--- NOTE | 2019-10-21 22:51 | NUR ---
THIS RN NOTIFIED DR. DUNLAP OF PT FLAGGING A SEPSIS RISK. NO ORDERS OBTAINED AT THIS TIME.
[2019-10-22] VITALS: BP 106/67
[2019-10-22] MEDS: RT-ALBUTEROL/IPRATROPIUM 3 ML (DUONEB) VIAL INH SCH ×6 (02:39→21:52)
[2019-10-22 04:07] VITALS: BP 110/60
[2019-10-22 05:24] LABS: BASOPHILS % (AUTO) 0 % (0-10); EOSINOPHILS % (AUTO) 0 % (0-10); HEMATOCRIT 27 % (35-52); HEMOGLOBIN 8.9 G/DL (11.5-16.0); LYMPHOCYTES # (AUTO) 0.8 X 10^3 (1.0-4.0); LYMPHOCYTES % (AUTO) 7 % (12-44); MEAN CORPUSCULAR HEMOGLOBIN 31 PG (25-34); MEAN CORPUSCULAR HGB CONC 33 G/DL (32-36); MEAN CORPUSCULAR VOLUME 97 FL (80-99); MEAN PLATELET VOLUME 9.6 FL (7.4-10.4); MONOCYTES # (AUTO) 0.5 X 10^3 (0.0-1.0); MONOCYTES % (AUTO) 4 % (0-12); NEUTROPHILS # (AUTO) 10.8 X 10^3 (1.8-7.8); NEUTROPHILS % (AUTO) 89 % (42-75); PLATELET COUNT 280 10^3/uL (130-400); RED CELL DISTRIBUTION WIDTH 14.8 % (10.0-14.5); WHITE BLOOD COUNT 12.2 10^3/uL (4.3-11.0)
[2019-10-22 05:44] LABS: BUN/CREATININE RATIO 43; CALCIUM 8.8 MG/DL (8.5-10.1); CARBON DIOXIDE 28 MMOL/L (21-32); CHLORIDE 103 MMOL/L (98-107); CREATININE SERUM 0.61 MG/DL (0.60-1.30); GFR ESTIMATED > 60; MAGNESIUM 1.8 MG/DL (1.6-2.4); POTASSIUM 3.8 MMOL/L (3.6-5.0); SODIUM 142 MMOL/L (135-145)
[2019-10-22] MEDS: guaiFENesin SYRUP 100 MG/5 ML 10 ML (ROBITUSSIN SF) PO SCH ×3 (05:51→20:58)
[2019-10-22 05:55] LABS: GLUCOSE 55 MG/DL (70-105)
[2019-10-22] MEDS: inSUlin ASPART (NovoLOG) 1 UNIT/0.01 ML (CHARGE PER UNIT) SC SCH ×4 (06:10→21:00)
[2019-10-22] MEDS: TOBRAMYCIN (NEBCIN) 80 MG/2 ML VIAL IH SCH ×2 (06:18→18:24)
--- NOTE | 2019-10-22 06:18 | NUR ---
TIMELINE NOTE BELOW: 10/22/2019 AT 0555: THIS RN NOTIFIED BY CARIE IN LAB OF CRITICAL GLUCOSE OF 55. 10/22/2019 AT 0602: ORANGE JUICE WITH EXTRA SUGAR PACKETS AND CHOCOLATE MILK GIVEN TO PT. 10/22/2019 AT 0618: FINGERSTICK BLOOD SUGAR TAKEN - 117. WILL CONTINUE TO MONITOR.
[2019-10-22] MEDS: predniSONE 20 MG TAB PO SCH (06:32)
--- NOTE | 2019-10-22 07:13 | Diagnostic Imaging Report ---
INDICATION: Pleural effusion Portable upright AP view of chest is obtained. Comparison is made with study one day earlier. Right jugular central venous catheter is in stable position. There is mild bilateral basilar atelectasis. There is also mild bilateral pleural fluid. There is no evidence of pneumothorax or new infiltrates. IMPRESSION: Mild basilar atelectasis and small amount of bilateral pleural fluid without evidence of significant change. Dictated by: Dictated on workstation # [id number]
--- NOTE | 2019-10-22 07:21 | Pulmonary Progress Note ---
Subjective Time Seen by a Provider: 07:20 Sepsis Event Evaluation Height, Weight, BMI Height: 5'5.00" Weight: 218lbs. 0.0oz. 98.598554of; 34.07 BMI Method:Stated Exam Exam Vital Signs Date Time Temp Pulse Resp B/P (MAP) Pulse Ox O2 Delivery O2 Flow Rate FiO2 10/22/19 06:18 92 Room Air 10/22/19 04:07 37.0 78 21 110/60 (77) 97 Room Air 10/22/19 01:00 88 10/22/19 00:00 37.2 88 20 106/67 (80) 94 Room Air 10/21/19 20:00 Nasal Cannula 10/21/19 19:25 35.8 92 16 111/72 (85) 94 Room Air 10/21/19 19:00 92 10/21/19 18:55 94 Room Air 10/21/19 16:14 36.3 88 16 110/70 (83) 93 Room Air 10/21/19 15:01 94 Room Air 10/21/19 12:19 78 10/21/19 11:49 36.8 74 16 110/64 (79) 94 Room Air 10/21/19 10:53 93 Room Air 10/21/19 08:00 95 Room Air 10/21/19 08:00 35.6 80 20 109/63 (78) 95 Room Air 10/21/19 07:29 91 Room Air 10/21/19 07:28 91 Room Air I & O 10/22/19 07:00 Intake Total 4000 ml Output Total 2025 ml Balance 1975 ml Height & Weight Height: 5'5.00" Weight: 218lbs. 0.0oz. 98.747797vz; 34.07 BMI Method:Stated General Appearance: Chronically ill, Obese HEENT: PERRL/EOMI Neck: Normal Inspection, Supple Respiratory: No Respiratory Distress, Crackles, Decreased Breath Sounds Cardiovascular: Regular Rate, Rhythm, No Murmur Capillary Refill: Less Than 3 Seconds Gastrointestinal: soft, no organomegaly, no pulsatile mass Extremity: Swelling Neurologic/Psychiatric: Alert, Oriented x3 Skin: Normal Color, Warm/Dry Lymphatic: No Adenopathy Results Lab Laboratory Tests 10/21/19 05:19 10/22/19 05:15 Assessment/Plan Assessment/Plan Pseudomonus PNA -S/p Merrem, -ContinueTobi SVNS -- -CXR reviewed -Pt is currently on RA Atelectasis -Increase activity -IS Seizures -Keppra. Anemia -Monitor COPDAE -SVNS q 4 -Prednisone Afib/flutter RLE DVT -Lovenox Alcohol abuse Morbid obesity JACLYN SAVAGE DO Oct 22, 2019 07:21
[2019-10-22 08:00] VITALS: BP 96/53
[2019-10-22] MEDS: guaiFENesin (MUCINEX) 600 MG TAB PO SCH ×2 (09:21→21:00)
[2019-10-22] MEDS: KCL 20 MEQ TAB (K-DUR) PO SCH ×2 (09:21→21:00)
[2019-10-22] MEDS: LEVETIRACETAM 500 MG (KEPPRA) TAB PO SCH ×2 (09:21→20:59)
[2019-10-22] MEDS: BUMETANIDE 1 MG (BUMEX) TAB PO SCH (09:21)
[2019-10-22] MEDS: meTOprolol TARTRATE 50 MG (LOPRESSOR) TAB PO SCH ×2 (09:22→21:00)
[2019-10-22] MEDS: FAMOTIDINE 20 MG (PEPCID) TABLET PO SCH ×2 (09:22→21:00)
[2019-10-22] MEDS: amLODIPine 5 MG (NORVASC) TAB PO SCH (09:22)
[2019-10-22] MEDS: lisINopril 10 MG (PRINIVIL) TABLET PO SCH (09:22)
[2019-10-22] MEDS: AMIODARONE 200 MG (CORDARONE) TAB PO SCH ×2 (09:22→20:59)
[2019-10-22 12:00] VITALS: BP 104/64
--- NOTE | 2019-10-22 12:15 | Progress Note - Hospitalist ---
Subjective HPI/CC On Admission Date Seen by Provider: Oct 22, 2019 Time Seen by Provider: 10:00 Shortness of breath Subjective/Events-last exam she has no complaints or concerns this morning. She says that she is breathing well. She denies any fevers or chills. She has some pain when they move her. She feels like she is getting a bit stronger. Objective Exam Vital Signs Vital Signs Date Time Temp Pulse Resp B/P (MAP) Pulse Ox O2 Delivery O2 Flow Rate FiO2 10/22/19 08:00 92 Room Air 1.00 60 10/22/19 07:00 86 10/22/19 04:07 37.0 21 110/60 (77) Capillary Refill : Less Than 3 SecondsLess Than 3 Seconds General Appearance: No Apparent Distress, WD/WN HEENT: PERRL/EOMI, Pharynx Normal Neck: Normal Inspection, Supple Respiratory: Lungs Clear, Normal Breath Sounds, No Respiratory Distress Cardiovascular: Regular Rate, Rhythm, No Edema, No Murmur Gastrointestinal: Normal Bowel Sounds, Non Tender, Soft Extremity: Normal Inspection, Non Tender, Pedal Edema Neurologic/Psychiatric: Alert, Oriented x3, Normal Mood/Affect, Motor Weakness Skin: Normal Color, Warm/Dry Results/Procedures Lab Laboratory Tests 10/22/19 05:15 Patient resulted labs reviewed. Imaging: Reviewed Imaging Report Assessment/Plan Assessment and Plan Assess & Plan/Chief Complaint ARDS Acute respiratory failure with hypoxia COPD with acute exacerbation VAP - Prolonged intubation, including reintubation, now extubated on room air - Pulm consulted, appreciate recs - Sputum and bronchial cultures consistently growing Pseudomonas - Continue Bumex - Abx completed - Continue Inhaled Tobramycin - Continue steroids orally now, tapering AFIB/Flutter with RVR HTN - Metoprolol, Vasotec - Cardiology consulted, appreciate recs - Continue Xarelto Seizure like activity - Continue Keppra RLE DVT RUE DVT - Continue Xarelto Steroid-induced hyperglycemia - Continue Levemir - SSI Debility - PT/OT - IRF consult, currently denied - Will likely need NH placement for termite exterminator helper care, patient agreeable - Consider hospice care with placement, palliative care consulted, appreciate recs Alcohol abuse Morbid obesity - Clinically significant, no acute management needs Critical Care Critically Ill Patient Diagnosis/Problems Diagnosis/Problems (1) ARDS (adult respiratory distress syndrome) Status: Acute (2) Pseudomonas infection Status: Acute (3) VAP (ventilator-associated pneumonia) Status: Acute (4) DVT (deep venous thrombosis) Status: Acute Qualifiers: DVT location: upper extremity Affected thrombotic vein of extremity: ulnar Chronicity: acute Laterality: right Qualified Codes: I82.621 - Acute embolism and thrombosis of deep veins of right upper extremity Clinical Quality Measures DVT/VTE Risk/Contraindication: Risk Factor Score Per Nursin RFS Level Per Nursing on Admit: 4+=Very High ACE DIAMOND MD Oct 22, 2019 12:15
[2019-10-22] MEDS: ALPRAZolam 0.5 MG (XANAX) TAB PO PRN ×2 (13:37→21:00)
[2019-10-22 15:48] VITALS: BP 108/66
--- NOTE | 2019-10-22 16:17 | Cardiology Progress Note ---
Cardiology SOAP Progress Note Subjective: No cardiac complaints. Objective: I&O/Vital Signs 10/22/19 10/22/19 10/22/19 10/22/19 06:18 07:00 08:00 08:00 Temp 36.5 Pulse 86 79 Resp 16 B/P (MAP) 96/53 (67) Pulse Ox 92 92 92 O2 Delivery Room Air Room Air Room Air O2 Flow Rate 1.00 FiO2 60 10/22/19 10/22/19 10/22/19 12:00 13:00 13:39 Temp 36.0 Pulse 72 79 Resp 18 B/P (MAP) 104/64 (77) Pulse Ox 95 94 O2 Delivery Room Air Room Air 10/22/19 00:00 Intake Total 2050 ml Output Total 1775 ml Balance 275 ml Weight (Pounds): 218 Weight (Ounces): 0.0 Weight (Calculated Kilograms): 98.517854 Constitutional: AAO x 3, well-developed, well-nourished Respiratory: No accessory muscle use, No respiratory distress; chest expansion is symmetric, chest is bilaterally symmetric (good air entry) Cardiovascular: regular rate-rhythm; No JVD; S1 and S2, systolic murmur (soft MARIE at card base) Gastrointestional: No tender, No soft, No guarding, No rebound; audible bowel sounds Extremities: other (mod bilat LE swelling); No clubbing, No cyanosis Neurologic/Psychiatric: oriented x 3, other (moves all limbs equally) Skin: warm/dry; No rash on exposed areas, No ulcerations on exposed areas Results/Procedures: Labs Laboratory Tests 10/21/19 20:40: Glucometer 169H 10/22/19 05:15: White Blood Count 12.2H, Red Blood Count 2.84L, Hemoglobin 8.9L, Hematocrit 27L, Mean Corpuscular Volume 97, Mean Corpuscular Hemoglobin 31, Mean Corpuscular Hemoglobin Concent 33, Red Cell Distribution Width 14.8H, Platelet Count 280, Mean Platelet Volume 9.6, Neutrophils (%) (Auto) 89H, Lymphocytes (%) (Auto) 7L, Monocytes (%) (Auto) 4, Eosinophils (%) (Auto) 0, Basophils (%) (Auto) 0, Neutrophils # (Auto) 10.8H, Lymphocytes # (Auto) 0.8L, Monocytes # (Auto) 0.5, Eosinophils # (Auto) 0.0, Basophils # (Auto) 0.0, Sodium Level 142, Potassium Level 3.8, Chloride Level 103, Carbon Dioxide Level 28, Anion Gap 11, Blood Urea Nitrogen 26H, Creatinine 0.61, Estimat Glomerular Filtration Rate > 60, BUN/Creatinine Ratio 43, Glucose Level 55*L, Calcium Level 8.8, Phosphorus Level 2.0L, Magnesium Level 1.8 10/22/19 06:18: Glucometer 117H 10/22/19 11:21: Glucometer 144H 10/22/19 15:50: Glucometer 206H Microbiology 10/08/19 Mycobacterial Culture - Preliminary, Resulted 10/07/19 C. difficile DNA Amplification - Final, Complete 09/26/19 Blood Culture - Final, Complete No growth A/P: Assessment/Dx: Gen weakness after long illness Acute resp failure, likely due to COPD exacerbated by aspiration pneumonia Acute renal failure, likely ATN due to hypotension due to sepsis, resolved HTN - improved PAF/flutter, currently NSR Elevated troponin at presentation - likely type 2 [place] d/t hypoxia Card cath of 09/07/18: minimal CAD, LVEF 70-75%, elevated LVEDP Echo of 09/20/19: LVEF 50-55%, RVSP 35 mmHg H/o opiate addiction ETOH abuse Chronic tobacco use Fam h/o early CAD Hyperlipidemia Borderline DM II (fasting blood glucose on 09/07/18) Carotid u/s on 01/05/19: no significant dz Plan: Plan: * Complex management due to multiple comorbidities that are outlined above * Replenish lytes * Monitor labs Thank you for your consultation. Please call me if you have any questions. Taz Velazco MD, FACP, FACC, FSCAI, FHRS, CCDS Interventional Cardiology Cardiac Electrophysiology Vascular Medicine and Endovascular Interventions Graciela VELAZCO MD Oct 22, 2019 16:17
[2019-10-22] MEDS: RIVAROXABAN 20 MG TABLET (XARELTO) PO SCH (16:38)
[2019-10-22] MEDS: morphine INJ 4 MG/ML 1 ML (VIAL/SYRINGE) IVP PRN (17:45)
[2019-10-22 19:19] VITALS: BP 106/63
[2019-10-23] VITALS: BP 94/48
[2019-10-23] MEDS: RT-ALBUTEROL/IPRATROPIUM 3 ML (DUONEB) VIAL INH SCH ×6 (02:27→22:53)
[2019-10-23 04:00] VITALS: BP 99/58
[2019-10-23] MEDS: guaiFENesin SYRUP 100 MG/5 ML 10 ML (ROBITUSSIN SF) PO SCH ×3 (05:17→20:29)
[2019-10-23] MEDS: predniSONE 20 MG TAB PO SCH (05:17)
[2019-10-23] MEDS: inSUlin ASPART (NovoLOG) 1 UNIT/0.01 ML (CHARGE PER UNIT) SC SCH ×4 (05:18→20:29)
[2019-10-23 05:39] LABS: BASOPHILS % (AUTO) 0 % (0-10); EOSINOPHILS % (AUTO) 0 % (0-10); HEMATOCRIT 26 % (35-52); HEMOGLOBIN 8.3 G/DL (11.5-16.0); LYMPHOCYTES # (AUTO) 0.9 X 10^3 (1.0-4.0); LYMPHOCYTES % (AUTO) 10 % (12-44); MEAN CORPUSCULAR HEMOGLOBIN 31 PG (25-34); MEAN CORPUSCULAR HGB CONC 32 G/DL (32-36); MEAN CORPUSCULAR VOLUME 97 FL (80-99); MONOCYTES # (AUTO) 0.5 X 10^3 (0.0-1.0); MONOCYTES % (AUTO) 5 % (0-12); NEUTROPHILS # (AUTO) 8.3 X 10^3 (1.8-7.8); NEUTROPHILS % (AUTO) 85 % (42-75); PLATELET COUNT 250 10^3/uL (130-400); RED CELL DISTRIBUTION WIDTH 14.9 % (10.0-14.5); WHITE BLOOD COUNT 9.7 10^3/uL (4.3-11.0)
[2019-10-23 05:54] LABS: BUN/CREATININE RATIO 39; CALCIUM 8.5 MG/DL (8.5-10.1); CARBON DIOXIDE 28 MMOL/L (21-32); CHLORIDE 105 MMOL/L (98-107); CREATININE SERUM 0.57 MG/DL (0.60-1.30); GFR ESTIMATED > 60; MAGNESIUM 1.8 MG/DL (1.6-2.4); PHOSPHORUS 2.2 MG/DL (2.3-4.7); POTASSIUM 4.1 MMOL/L (3.6-5.0); SODIUM 141 MMOL/L (135-145)
[2019-10-23 05:55] LABS: GLUCOSE 56 MG/DL (70-105)
--- NOTE | 2019-10-23 07:41 | Diagnostic Imaging Report ---
Indication: Dyspnea. Comparison: 10/22/2019. Discussion: Single portable upright view of the chest was obtained. Small bilateral pleural effusions are stable. Stable normal heart size. Right IJ central venous catheter is stable. No pneumothorax or osseous abnormality. Impression: 1. Stable small bilateral pleural effusions. Dictated by: Dictated on workstation # [id number]
[2019-10-23 08:00] VITALS: BP 101/61
[2019-10-23] MEDS: guaiFENesin (MUCINEX) 600 MG TAB PO SCH ×2 (08:07→20:25)
[2019-10-23] MEDS: LEVETIRACETAM 500 MG (KEPPRA) TAB PO SCH ×2 (08:07→20:24)
[2019-10-23] MEDS: FAMOTIDINE 20 MG (PEPCID) TABLET PO SCH ×2 (08:07→20:26)
[2019-10-23] MEDS: BUMETANIDE 1 MG (BUMEX) TAB PO SCH (08:07)
[2019-10-23] MEDS: meTOprolol TARTRATE 50 MG (LOPRESSOR) TAB PO SCH ×2 (08:07→20:26)
[2019-10-23] MEDS: lisINopril 10 MG (PRINIVIL) TABLET PO SCH (08:07)
[2019-10-23] MEDS: AMIODARONE 200 MG (CORDARONE) TAB PO SCH ×2 (08:07→20:24)
[2019-10-23] MEDS: KCL 20 MEQ TAB (K-DUR) PO SCH ×2 (08:07→20:23)
[2019-10-23] MEDS: amLODIPine 5 MG (NORVASC) TAB PO SCH (08:08)
[2019-10-23] MEDS: TOBRAMYCIN (NEBCIN) 80 MG/2 ML VIAL IH SCH ×2 (10:01→18:46)
--- NOTE | 2019-10-23 10:15 | Progress Note - Hospitalist ---
Subjective HPI/CC On Admission Date Seen by Provider: Oct 23, 2019 Time Seen by Provider: 09:25 Shortness of breath Subjective/Events-last exam She is very talkative this morning. She is saying that her brother wants to buy her tickets to a concert with the [employer] and [employer]. She is craving barbecue and talks about [employer] in [place]. She has no complaints or concerns today. She denies any trouble breathing or chest pain. She denies any abdominal pain, nausea, vomiting, or diarrhea. Objective Exam Vital Signs Vital Signs Date Time Temp Pulse Resp B/P (MAP) Pulse Ox O2 Delivery O2 Flow Rate FiO2 10/23/19 08:00 99 Room Air 1.00 60 10/23/19 08:00 35.9 74 16 101/61 (74) Capillary Refill : Less Than 3 SecondsLess Than 3 Seconds General Appearance: No Apparent Distress, WD/WN HEENT: PERRL/EOMI, Pharynx Normal Neck: Normal Inspection, Supple Respiratory: Lungs Clear, Normal Breath Sounds, No Respiratory Distress Cardiovascular: Regular Rate, Rhythm, No Murmur Gastrointestinal: Normal Bowel Sounds, Non Tender, Soft Extremity: Normal Inspection, Non Tender, Pedal Edema Neurologic/Psychiatric: Alert, Oriented x3, Normal Mood/Affect, Motor Weakness Skin: Normal Color, Warm/Dry Results/Procedures Lab Laboratory Tests 10/23/19 05:20 Patient resulted labs reviewed. Imaging: Reviewed Imaging Report Assessment/Plan Assessment and Plan Assess & Plan/Chief Complaint ARDS Acute respiratory failure with hypoxia COPD with acute exacerbation VAP - Prolonged intubation, including reintubation, now extubated on room air - Pulm consulted, appreciate assistance - Sputum and bronchial cultures consistently growing Pseudomonas - Continue Bumex - Abx completed - Continue Inhaled Tobramycin - Continue steroids orally now, tapering AFIB/Flutter with RVR HTN - Metoprolol, Vasotec - Cardiology consulted, appreciate recs - Continue Xarelto Seizure like activity - Continue Keppra RLE DVT RUE DVT - Continue Xarelto Steroid-induced hyperglycemia - Continue Levemir, decrease - SSI Debility - PT/OT - IRF consult, currently denied - Will likely need NH placement for half-way care, patient agreeable - Consider hospice care with placement, palliative care consulted, appreciate recs Alcohol abuse Morbid obesity - Clinically significant, no acute management needs Diagnosis/Problems Diagnosis/Problems (1) ARDS (adult respiratory distress syndrome) Status: Resolved Resolution Date/Time: 10/23/19 @ 10:15 (2) Pseudomonas infection Status: Acute (3) VAP (ventilator-associated pneumonia) Status: Resolved Resolution Date/Time: 10/23/19 @ 10:15 (4) DVT (deep venous thrombosis) Status: Acute Qualifiers: DVT location: upper extremity Affected thrombotic vein of extremity: ulnar Chronicity: acute Laterality: right Qualified Codes: I82.621 - Acute embolism and thrombosis of deep veins of right upper extremity Clinical Quality Measures DVT/VTE Risk/Contraindication: Risk Factor Score Per Nursin RFS Level Per Nursing on Admit: 4+=Very High ACE DIAMOND MD Oct 23, 2019 10:15
[2019-10-23 12:00] VITALS: BP 103/61
--- NOTE | 2019-10-23 13:54 | Cardiology Progress Note ---
Cardiology SOAP Progress Note Subjective: No cardiac complaint. Feeling much better. Objective: I&O/Vital Signs 10/23/19 10/23/19 10/23/19 10/23/19 02:28 04:00 05:18 05:57 Temp 35.8 35.9 35.9 Pulse 76 Resp 18 B/P (MAP) 99/58 (72) Pulse Ox 83 95 O2 Delivery Room Air Room Air 10/23/19 10/23/19 10/23/19 10/23/19 07:00 08:00 08:00 10:28 Temp 35.9 Pulse 75 74 Resp 16 B/P (MAP) 101/61 (74) Pulse Ox 99 99 93 O2 Delivery Room Air Room Air Room Air O2 Flow Rate 1.00 FiO2 60 10/23/19 10/23/19 10/23/19 10:37 12:00 13:00 Temp 35.6 Pulse 72 82 Resp 18 B/P (MAP) 103/61 (75) Pulse Ox 93 96 O2 Delivery Room Air Room Air 10/23/19 00:00 Intake Total 1960 ml Output Total 1350 ml Balance 610 ml Weight (Pounds): 218 Weight (Ounces): 0.0 Weight (Calculated Kilograms): 98.396949 Constitutional: AAO x 3, well-developed, well-nourished Respiratory: No accessory muscle use, No respiratory distress; chest expansion is symmetric, chest is bilaterally symmetric (good air entry) Cardiovascular: regular rate-rhythm; No JVD; S1 and S2, systolic murmur (soft MARIE at card base) Gastrointestional: No tender, No soft, No guarding, No rebound; audible bowel sounds Extremities: other (mod bilat LE swelling); No clubbing, No cyanosis Neurologic/Psychiatric: oriented x 3, other (moves all limbs equally) Skin: warm/dry; No rash on exposed areas, No ulcerations on exposed areas Results/Procedures: Labs Laboratory Tests 10/22/19 15:50: Glucometer 206H 10/22/19 20:42: Glucometer 151H 10/23/19 05:09: Glucometer 74 10/23/19 05:20: White Blood Count 9.7, Red Blood Count 2.70L, Hemoglobin 8.3L, Hematocrit 26L, Mean Corpuscular Volume 97, Mean Corpuscular Hemoglobin 31, Mean Corpuscular Hemoglobin Concent 32, Red Cell Distribution Width 14.9H, Platelet Count 250, Mean Platelet Volume 10.0, Neutrophils (%) (Auto) 85H, Lymphocytes (%) (Auto) 10L, Monocytes (%) (Auto) 5, Eosinophils (%) (Auto) 0, Basophils (%) (Auto) 0, Neutrophils # (Auto) 8.3H, Lymphocytes # (Auto) 0.9L, Monocytes # (Auto) 0.5, Eosinophils # (Auto) 0.0, Basophils # (Auto) 0.0, Sodium Level 141, Potassium Level 4.1, Chloride Level 105, Carbon Dioxide Level 28, Anion Gap 8, Blood Urea Nitrogen 22H, Creatinine 0.57L, Estimat Glomerular Filtration Rate > 60, BUN/Creatinine Ratio 39, Glucose Level 56*L, Calcium Level 8.5, Phosphorus Level 2.2L, Magnesium Level 1.8 10/23/19 11:17: Glucometer 169H Microbiology 10/08/19 Mycobacterial Culture - Preliminary, Resulted 10/07/19 C. difficile DNA Amplification - Final, Complete 09/26/19 Blood Culture - Final, Complete No growth A/P: Assessment/Dx: Gen weakness after long illness Acute resp failure, likely due to COPD exacerbated by aspiration pneumonia Acute renal failure, likely ATN due to hypotension due to sepsis, resolved HTN - improved PAF/flutter, currently NSR Elevated troponin at presentation - likely type 2 [place] d/t hypoxia Card cath of 09/07/18: minimal CAD, LVEF 70-75%, elevated LVEDP Echo of 09/20/19: LVEF 50-55%, RVSP 35 mmHg H/o opiate addiction ETOH abuse Chronic tobacco use Fam h/o early CAD Hyperlipidemia Borderline DM II (fasting blood glucose on 09/07/18) Carotid u/s on 01/05/19: no significant dz Plan: Plan: * Complex management due to multiple comorbidities that are outlined above * Patient has improved significantly during a prolonged hospitalization course. * Replenish lytes * Monitor labs Thank you for your consultation. Please call me if you have any questions. Taz Velazco MD, FACP, FACC, FSCAI, FHRS, CCDS Interventional Cardiology Cardiac Electrophysiology Vascular Medicine and Endovascular Interventions Graciela VELAZCO MD Oct 23, 2019 13:54
[2019-10-23 16:34] VITALS: BP 106/61
[2019-10-23] MEDS: RIVAROXABAN 20 MG TABLET (XARELTO) PO SCH (16:37)
[2019-10-23] MEDS: ALPRAZolam 0.5 MG (XANAX) TAB PO PRN (20:24)
[2019-10-23 20:56] VITALS: BP 99/52
[2019-10-24] VITALS: BP 104/52
[2019-10-24] MEDS: RT-ALBUTEROL/IPRATROPIUM 3 ML (DUONEB) VIAL INH SCH ×3 (03:10→10:20)
[2019-10-24 04:00] VITALS: BP 103/57
[2019-10-24] MEDS: guaiFENesin SYRUP 100 MG/5 ML 10 ML (ROBITUSSIN SF) PO SCH (06:28)
[2019-10-24] MEDS: predniSONE 20 MG TAB PO SCH (06:29)
[2019-10-24] MEDS: inSUlin ASPART (NovoLOG) 1 UNIT/0.01 ML (CHARGE PER UNIT) SC SCH ×2 (06:29→11:27)
[2019-10-24] MEDS: TOBRAMYCIN (NEBCIN) 80 MG/2 ML VIAL IH SCH (07:02)
[2019-10-24 08:00] VITALS: BP 100/58
--- NOTE | 2019-10-24 08:11 | Progress Note - Cardiology ---
Cardiology SOAP Progress Note Objective: I&O/Vital Signs 10/25/19 00:00 Intake Total 600 ml Balance 600 ml Weight (Pounds): 218 Weight (Ounces): 0.0 Weight (Calculated Kilograms): 98.966477 Constitutional: AAO x 3, well-developed, well-nourished Respiratory: No accessory muscle use, No respiratory distress; chest expansion is symmetric, chest is bilaterally symmetric (good air entry) Cardiovascular: regular rate-rhythm; No JVD; S1 and S2, systolic murmur (soft MARIE at card base) Gastrointestional: No tender, No soft, No guarding, No rebound; audible bowel sounds Extremities: other (mod bilat LE swelling); No clubbing, No cyanosis Neurologic/Psychiatric: oriented x 3, other (moves all limbs equally) Skin: warm/dry; No rash on exposed areas, No ulcerations on exposed areas Results/Procedures: Labs Laboratory Tests 10/24/19 11:14: Glucometer 168H Microbiology 10/08/19 Mycobacterial Culture - Preliminary, Resulted 10/07/19 C. difficile DNA Amplification - Final, Complete 09/26/19 Blood Culture - Final, Complete No growth Procedures NAME: ZEKE MEDELLIN [facility] REC#: [id number] PT STATUS: ADM IN : 1965 PHYSICIAN: JACLYN SAVAGE DO ADMIT DATE: 09/19/19 Signed Date of Exam:10/23/19 CHEST 1 VIEW, AP/PA ONLY Indication: Dyspnea. Comparison: 10/22/2019. Discussion: Single portable upright view of the chest was obtained. Small bilateral pleural effusions are stable. Stable normal heart size. Right IJ central venous catheter is stable. No pneumothorax or osseous abnormality. Impression: 1. Stable small bilateral pleural effusions. Dictated by: Dictated on workstation # [id number] Dict: 10/23/19 0736 Trans: 10/23/19 140 [facility] [id number] Interpreted by: MARYCRUZ BARRETT MD Electronically signed by: MARYCRUZ BARRETT MD 10/23/19 1404 A/P: Assessment: Gen weakness after long illness Acute resp failure, likely due to COPD exacerbated by aspiration pneumonia Acute renal failure, likely ATN due to hypotension due to sepsis, resolved HTN - improved PAF/flutter, currently NSR Elevated troponin at presentation - likely type 2 [place] d/t hypoxia Card cath of 09/07/18: minimal CAD, LVEF 70-75%, elevated LVEDP Echo of 09/20/19: LVEF 50-55%, RVSP 35 mmHg H/o opiate addiction ETOH abuse Chronic tobacco use Fam h/o early CAD Hyperlipidemia Borderline DM II (fasting blood glucose on 09/07/18) Carotid u/s on 01/05/19: no significant dz Plan: * Complex management due to multiple comorbidities that are outlined above * Replenish lytes * Monitor labs DELROY TURNER Oct 24, 2019 08:11
[2019-10-24] MEDS: FAMOTIDINE 20 MG (PEPCID) TABLET PO SCH (09:16)
[2019-10-24] MEDS: BUMETANIDE 1 MG (BUMEX) TAB PO SCH (09:16)
[2019-10-24] MEDS: AMIODARONE 200 MG (CORDARONE) TAB PO SCH (09:16)
[2019-10-24] MEDS: LEVETIRACETAM 500 MG (KEPPRA) TAB PO SCH (09:16)
[2019-10-24] MEDS: KCL 20 MEQ TAB (K-DUR) PO SCH (09:16)
[2019-10-24] MEDS: guaiFENesin (MUCINEX) 600 MG TAB PO SCH (09:16)
[2019-10-24] MEDS: meTOprolol TARTRATE 50 MG (LOPRESSOR) TAB PO SCH (09:16)
[2019-10-24] MEDS: amLODIPine 5 MG (NORVASC) TAB PO SCH (09:17)
[2019-10-24] MEDS: lisINopril 10 MG (PRINIVIL) TABLET PO SCH (09:17)
[2019-10-24] MEDS ORDERED: LISI10TA2 PO (10:35)
[2019-10-24] MEDS ORDERED: METO50TA15 PO (10:35)
[2019-10-24] MEDS ORDERED: SENN-20 PO (10:35)
[2019-10-24] MEDS ORDERED: RIVA20TA2 PO (10:35)
[2019-10-24] MEDS ORDERED: LEVE500T6 PO (10:35)
[2019-10-24] MEDS ORDERED: FAMO20TA5 PO (10:35)
[2019-10-24] MEDS ORDERED: INSU100V5 SQ (10:35)
[2019-10-24] MEDS ORDERED: AMIO200T4 PO (10:35)
[2019-10-24] MEDS ORDERED: PRED10TA22 PO (10:35)
--- NOTE | 2019-10-24 10:36 | Discharge Inst-Skilled Nursing ---
Discharge Inst-Skilled NF Reconcile Patient Problems Problems Reviewed?: Yes Consult/Follow Up/Orders Follow Up Appt.: next long-term rounds Skilled NF Admit to: [facility] Certification (SNF) I certify that SNF services are required to be given on an inpatient basis because of the above named patient's need for care home care on a continuing basis for the conditions(s) for which he/she was receiving inpatient hospital services prior to his/her transfer to the SNF. [facility] Facility Order: Nursing Services, Statement Clerks Supervisor-Evaluate & Treat, Physical Therapy-Evaluate & Treat Oxygen Delivery Method: Room Air Discharge Diet: No Restrictions Daily Activity as Tolerated: Yes Resuscitation Status: Do Not Resuscitate New & Resume Previous Orders Sapphire Diamond Oct 24, 2019 10:35 SAPPHIRE DIAMOND MD Oct 24, 2019 10:36
--- NOTE | 2019-10-24 11:25 | Physical Therapy Daily Note ---
PT Daily Note-Current Subjective Patient to transfer to alf on this date. PT to assess transport need. Pain Numeric Pain Scale: 10-Worst Possible Pain Location: Soft Tissue Location Body Site: Generalized Pain Description: Ache Mental Status Patient Orientation: Confused Attachments: Oxygen, Osorio Catheter Transfers SCALE: Activities may be completed with or without assistive devices. 6-Ztacywwdri-dcijkbt completes the activity by him/herself with no assistance from a helper. 5-Set-up or Clean-up Assistance-helper sets up or cleans up; patient completes activity. Chandler assists only prior to or following the activity. 4-Supervision or Touching Assistance-helper provides verbal cues and/or touching/steadying and/or contact guard assistance as patient completes activity. Assistance may be provided throughout the activity or intermittently. 3-Partial/Moderate Assistance-helper does LESS THAN HALF the effort. Chandler lifts, holds or supports trunk or limbs, but provides less than half the effort. 2-Substantial/Maximal Assistance-helper does MORE THAN HALF the effort. Chandler lifts or holds trunk or limbs and provides more than half the effort. 8-Qfgqdvhqe-soksev does ALL the effort. Patient does none of the effort to complete the activity. Or, the assistance of 2 or more helpers is required for the patient to complete the activity. If activity was not attempted, code reason: 7-Patient Refused. 9-Not Applicable-not attempted and the patient did not perform the activity before the current illness, exacerbation or injury. 10-Not Attempted due to Environmental Limitations-(lack of equipment, weather restraints, etc.). 88-Not Attempted due to Medical Conditions or Safety Concerns. Roll Left & Right (QC): 1 Sit to Lying (QC): 1 Lying to Sitting/Side of Bed(Q: 1 patient required dependent assist x 2 with all mobility and is unable to maintain sitting EOB without assistance. Noted no core strength. Weight Bearing Right Lower Extremity: Right Weight Bearing/Tolerated Left Lower Extremity: Left Weight Bearing/Tolerated Assessment Patient will require EMS transport due to inability to maintain seated position due to no core strength or safety awareness. SS notified. PT Group Home Goals Group Home Goals PT Group Home Goals Time Frame: Oct 29, 2019 Roll Left & Right (QC): 2 Sit to Lying (QC): 2 Lying-Sitting on Side/Bed(QC): 2 PT Plan Treatment/Plan Treatment Plan: Continue Plan of Care Treatment Plan: Bed Mobility, Concurrent Therapy, Education, Functional Activity Lyn, Functional Strength, Gait, Safety, Therapeutic Exercise, Transfers Treatment Duration: Oct 29, 2019 Frequency: 6 times per week Estimated Hrs Per Day: .25 hour per day (to .5) Patient and/or Family Agrees t: Yes Time/GCodes Time In: 1058 Time Out: 1108 Total Billed Treatment Time: 10 Total Billed Treatment 1 visit FA 10 min MERVIN PETERSON PT Oct 24, 2019 11:25
--- NOTE | 2019-10-24 11:59 | NUR ---
CM FINALIZED DISCHARGE PLAN: Patient is dismissing to [facility] today for skilled therapies. She does not have skilled coverage under her BCBS insurance plan et so this will be a private pay situation. Patient is agreeable to this plan et will work with the facility for payment. She currently can not hold herself upright to transport in a wheel chair d/t significant weakness. She will need EMS transport et this has been faxed to [facility]. EMS will be called at 1p.m. by [employer] [facility] for non-emergent transport; confirmed with [facility] staff et primary care nurse Malka to set up for EMS/time. Patient Helene et parents in room given update on time to call for transport et they voice agreement with this plan.
[2019-10-24 12:00] VITALS: BP 102/62
--- NOTE | 2019-10-24 13:00 | Progress Note - Cardiology ---
Cardiology SOAP Progress Note Subjective: Feels stronger than before Tires easily Moderate exertional shortness of breath No cp No palp or syncope Does not report N/V/D Wishes to go home Objective: I&O/Vital Signs 10/24/19 10/24/19 10/24/19 10/24/19 03:10 04:00 07:00 07:02 Temp 36.0 Pulse 93 76 Resp 20 B/P (MAP) 103/57 (72) Pulse Ox 90 78 90 O2 Delivery Room Air Room Air Room Air 10/24/19 10/24/19 10/24/19 10/24/19 08:00 10:20 12:00 12:15 Temp 35.6 36.0 Pulse 86 84 68 Resp 18 18 B/P (MAP) 100/58 (72) 102/62 (75) Pulse Ox 90 90 91 O2 Delivery Room Air Room Air Room Air 10/24/19 00:00 Intake Total 3380 ml Output Total 1575 ml Balance 1805 ml Weight (Pounds): 218 Weight (Ounces): 0.0 Weight (Calculated Kilograms): 98.703193 Constitutional: AAO x 3, well-developed, well-nourished Respiratory: No accessory muscle use, No respiratory distress; chest expansion is symmetric, chest is bilaterally symmetric (good air entry) Cardiovascular: regular rate-rhythm; No JVD; S1 and S2, systolic murmur (soft MARIE at card base) Gastrointestional: No tender, No soft, No guarding, No rebound; audible bowel sounds Extremities: other (mod bilat LE swelling); No clubbing, No cyanosis Neurologic/Psychiatric: oriented x 3, other (moves all limbs equally) Skin: warm/dry; No rash on exposed areas, No ulcerations on exposed areas Results/Procedures: Labs Laboratory Tests 10/23/19 15:57: Glucometer 302H 10/23/19 19:48: Glucometer 170H 10/24/19 05:57: Glucometer 77 10/24/19 11:14: Glucometer 168H Microbiology 10/08/19 Mycobacterial Culture - Preliminary, Resulted 10/07/19 C. difficile DNA Amplification - Final, Complete 09/26/19 Blood Culture - Final, Complete No growth Laboratory Tests 10/23/19 05:20 A/P: Assessment: Gen weakness after long illness Acute resp failure, likely due to COPD exacerbated by aspiration pneumonia Acute renal failure, likely ATN due to hypotension due to sepsis, resolved HTN - improved PAF/flutter, currently NSR Elevated troponin at presentation - likely type 2 [place] d/t hypoxia Card cath of 09/07/18: minimal CAD, LVEF 70-75%, elevated LVEDP Echo of 09/20/19: LVEF 50-55%, RVSP 35 mmHg H/o opiate addiction ETOH abuse Chronic tobacco use Fam h/o early CAD Hyperlipidemia Borderline DM II (fasting blood glucose on 09/07/18) Carotid u/s on 01/05/19: no significant dz Plan: * Complex management due to multiple comorbidities that are outlined above * Monitor labs * Oupt cardiac f/u advised JESS CONLEY MD FACP FAC CCDS Oct 24, 2019 13:00
[2019-10-24] MEDS ORDERED: FLU QUADRIvalent (5+ YOA) 2019-2020 (AFLURIA) 0.5 ML IM ONE (14:13)
--- NOTE | 2019-10-24 15:43 | Discharge Summary ---
Discharge Summary Hospital Course Was the Problem List Reviewed?: Yes Problems/Dx: (1) ARDS (adult respiratory distress syndrome) Status: Resolved (2) Pseudomonas infection Status: Resolved (3) VAP (ventilator-associated pneumonia) Status: Resolved (4) DVT (deep venous thrombosis) Status: Acute Qualifiers: Qualified Codes: I82.621 - Acute embolism and thrombosis of deep veins of right upper extremity Hospital Course Date of Admission: Sep 19, 2019 at 19:36 Admission Diagnosis : acute respiratory failure with hypoxia Family Physician/Provider: Pedro Yap Security Officer Date of Discharge: 10/24/19 Discharge Diagnosis: acute respiratory failure with hypoxia, ARDS Hospital Course: Helene Hicks is a 54-year-old female who presented after being found down with acute hypoxic respiratory failure. She was presumed to have had an aspiration event involving some combination of drugs and alcohol. She was intubated for respiratory failure. She had a very complicated hospital course. Her respiratory status declined and she went into adult respiratory distress syndrome. She was eventually able to be weaned off the ventilator. She was also treated for exacerbation of COPD with steroids and she will be on an ongoing steroid taper as an outpatient. She was also treated for a ventilator associated pneumonia. She received a prolonged course of antibiotics. Her cultures persistently grew Pseudomonas. She he was also found to have both an upper and lower right extremity DVT. She was started on anticoagulation and will be continued on Xarelto. 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 She will require ongoing therapies and was thus discharged to [facility] and rehabilitation. Labs and Pending Lab Test: Laboratory Tests 10/23/19 15:57: Glucometer 302H 10/23/19 19:48: Glucometer 170H 10/24/19 05:57: Glucometer 77 10/24/19 11:14: Glucometer 168H Microbiology 10/08/19 Mycobacterial Culture - Preliminary, Resulted 10/07/19 C. difficile DNA Amplification - Final, Complete 09/26/19 Blood Culture - Final, Complete No growth Home Meds Active Prednisone 10 Mg Tab.ds.pk 10 Mg PO DAILY Take 6 tabs(60mg)daily,decrease by 1 tab(10mg)every other day. Senna-Time S Tablet (Sennosides/Docusate Sodium) 1 Each Tablet 1 Ea PO BID PRN 30 Days Famotidine 20 Mg Tablet 20 Mg PO BID 30 Days Levemir (Insulin Determir) 1,000 Units/10 Ml Soln 5 Unit SQ HS 30 Days Levetiracetam 500 Mg Tablet 500 Mg PO BID 90 Days Metoprolol Tartrate 50 Mg Tablet 100 Mg PO BID 90 Days Lisinopril 10 Mg Tablet 20 Mg PO DAILY 90 Days Amiodarone HCl 200 Mg Tablet 200 Mg PO DAILY 30 Days Xarelto Tablet (Rivaroxaban) 20 Mg Tablet 20 Mg PO DAILY@1700 90 Days Reported Furosemide 40 Mg Tablet 40 Mg PO DAILY LAST FILLED #30 04-29-19 Fluoxetine HCl 10 Mg Tablet 10 Mg PO DAILY LAST FILLED #30 07-18-19 Ondansetron Odt (Ondansetron) 4 Mg Tab.rapdis 4 Mg PO Q4H PRN Iprat-Albut 0.5-3(2.5) mg/3 ml (Ipratropium/Albuterol Sulfate) 3 Ml Ampul.neb 3 Ml NEB QID PRN Potassium Chloride 20 Meq Tablet.er 20 Meq PO DAILY Spiriva Respimat 2.5MCG/ACTUATION (Tiotropium Paulina) 4 Gm Mist.inhal 1-2 Puff INH DAILY Ventolin Hfa (Albuterol Sulfate) 18 Gm Hfa.aer.ad 2 Puff INH Q4H PRN Atorvastatin Calcium 40 Mg Tablet 40 Mg PO HS Advair 250-50 Diskus (Fluticasone/Salmeterol) 1 Each Blst.w.dev 1 Puff IH BID LAST FILLED 07-30-19 #60 Suboxone 8 mg-2 mg Sl Film (Buprenorphine HCl/Naloxone HCl) 1 Each Film 1 Film SL TID Assessment/Pt Instructions Take medications as prescribed. Follow up on next [facility] rounds. Return with worsening shortness of breath, fevers, or if you feel like you're getting worse. Discharge Planning: >30 minutes discharge planning Discharge Instructions Discharge Diet: No Restrictions Activity as Tolerated: Yes Consultations cardiology, pulmonology Discharge Physical Examination Vital Signs Vital Signs Date Time Temp Pulse Resp B/P (MAP) Pulse Ox O2 Delivery O2 Flow Rate FiO2 10/24/19 14:15 10/24/19 12:15 68 10/24/19 12:00 36.0 18 91 Room Air 10/24/19 08:00 1.00 60 General Appearance: No Apparent Distress, WD/WN HEENT: PERRL/EOMI, Pharynx Normal Respiratory: Lungs Clear, Normal Breath Sounds, No Respiratory Distress Cardiovascular: Regular Rate, Rhythm, No Murmur Gastrointestinal: Normal Bowel Sounds, Non Tender, Soft Extremity: Normal Inspection, Non Tender, Pedal Edema Skin: Normal Color, Warm/Dry Neurologic/Psychiatric: Alert, Oriented x3, Normal Mood/Affect, Motor Weakness Allergies: Coded Allergies: No Known Drug Allergies (Unverified , 04/29/19) Discharge Summary Date of Admission Sep 19, 2019 at 19:36 Date of Discharge Discharge Date: Oct 24, 2019 Discharge Time: 12:00 Admission Diagnosis acute respiratory failure with hypoxia Consults/Procedures Consulations pulmonology, cardiology Discharge Diagnosis Acute respiratory failure with hypoxia, ARDS, COPD with acute exacerbation, VAP (1) ARDS (adult respiratory distress syndrome) Status: Resolved (2) Pseudomonas infection Status: Resolved (3) VAP (ventilator-associated pneumonia) Status: Resolved (4) DVT (deep venous thrombosis) Status: Acute Qualifiers: Qualified Codes: I82.621 - Acute embolism and thrombosis of deep veins of right upper extremity Clinical Quality Measures DVT/VTE Risk/Contraindication: Risk Factor Score Per Nursin RFS Level Per Nursing on Admit: 4+=Very High ACE DIAMOND MD Oct 24, 2019 15:43
== END 2019-10-24 15:00 | DRG 870 ==
LOC: EDUNIT# 14:47 → ER 14:49 → ICU 19:36 → 4TH 10-16 10:00
PROVIDERS: ADMIT Family Medicine; ATTEND Family Medicine
PROC: 5A1955Z Respiratory Ventilation, Greater than 96 Consecutive Hours (ICD-10-PCS; principal; 2019-09-19)
PROC: 0BH17EZ Insertion of Endotracheal Airway into Trachea, Via Natural or Artificial Opening (ICD-10-PCS; 2019-09-19)
PROC: 0B938ZX Drainage of Right Main Bronchus, Via Natural or Artificial Opening Endoscopic, Diagnostic (ICD-10-PCS; 2019-09-20)
PROC: 0B978ZX Drainage of Left Main Bronchus, Via Natural or Artificial Opening Endoscopic, Diagnostic (ICD-10-PCS; 2019-09-20)
PROC: 5A1945Z Respiratory Ventilation, 24-96 Consecutive Hours (ICD-10-PCS; 2019-10-07)
PROC: 0BC38ZZ Extirpation of Matter from Right Main Bronchus, Via Natural or Artificial Opening Endoscopic (ICD-10-PCS; 2019-10-08)
PROC: 0BC78ZZ Extirpation of Matter from Left Main Bronchus, Via Natural or Artificial Opening Endoscopic (ICD-10-PCS; 2019-10-08)
DX: A41.9 Sepsis, unspecified organism (principal); R65.21 Severe sepsis with septic shock; J96.01 Acute respiratory failure with hypoxia; J69.0 Pneumonitis due to inhalation of food and vomit; J15.1 Pneumonia due to Pseudomonas; J80 Acute respiratory distress syndrome; I21.A1 Myocardial infarction type 2; N17.0 Acute kidney failure with tubular necrosis; Z66 Do not resuscitate; I48.92 Unspecified atrial flutter; J95.851 Ventilator associated pneumonia; J44.1 Chronic obstructive pulmonary disease with (acute) exacerbation; K92.2 Gastrointestinal hemorrhage, unspecified; I82.621 Acute embolism and thrombosis of deep veins of right upper extremity; I82.4Z1 Acute embolism and thrombosis of unspecified deep veins of right distal lower extremity; G72.81 Critical illness myopathy; T17.990A Other foreign object in respiratory tract, part unspecified in causing asphyxiation, initial encounter; I48.0 Paroxysmal atrial fibrillation; I25.10 Atherosclerotic heart disease of native coronary artery without angina pectoris; I10 Essential (primary) hypertension; F17.210 Nicotine dependence, cigarettes, uncomplicated; I95.9 Hypotension, unspecified; F10.10 Alcohol abuse, uncomplicated; R73.03 Prediabetes; K21.9 Gastro-esophageal reflux disease without esophagitis; F31.9 Bipolar disorder, unspecified; E66.2 Morbid (severe) obesity with alveolar hypoventilation; R32 Unspecified urinary incontinence; K59.00 Constipation, unspecified; Z23 Encounter for immunization
CPT/HCPCS: 31500; 36415; 36600; 51702; 70450; 71045; 71275; 74177; 80048; 80053; 80162; 80202; 80306; 80320; 80329; 81000; 82140; 82150; 82274; 82805; 82962; 83605; 83690; 83735; 83880; 84100; 84478; 84484; 85007; 85025; 85027; 85384; 85610; 85730; 87015; 87040; 87045; 87046; 87070; 87077; 87081; 87101; 87106; 87116; 87186; 87205; 87206; 87324; 87449; 87493; 87804; 87899; 93005; 93306; 93970; 94002; 94003; 94640; 94660; 94664; 94668; 94760; 94799; 96361; 96365; 96367; 96375; 96376; 99291; 99292

== ENCOUNTER → 2019-11-15 | Emergency (ER) | payer BC ==
[~2019-11-15] VITALS: Ht 165.1 cm; Wt 97.7 kg
[~2019-11-15] MED LIST changes: +ALBU18HF2 INH; +AMIO200T4 PO; +ATOR40TA70 PO; +FLUO10TA PO; +GBPN600T PO; +INSU100V5 SQ; +IPRA3AMP31 NEB; +LEVE500T6 PO; -LIDOCAINE PF 1% 2 ML VIAL IJ ONE; +LISI10TA2 PO; +METO2.5T PO; +METO50TA15 PO; +ONDA4TAB11 PO; +POTA-51 PO; +PRED10TA22 PO; +PREG150C PO; +RIVA20TA2 PO; +SENN-20 PO; +TIOT4MIS2 INH
--- NOTE | 2019-11-15 19:34 | ED Back Pain ---
General Chief Complaint: Back Problems Stated Complaint: BACK PAIN Nursing Triage Note: Pt to ED by EMS. Pt reports being in ajay lift at home on Thursday and heard a loud pop in back. Pt reports constant pain since then. Pt denies fall. Pt reports history of blood clot in R arm. Nursing Sepsis Screen: No Definite Risk Source of Information: Patient, Family Exam Limitations: No Limitations (ALMA JUNG [email or web address]) History of Present Illness Date Seen by Provider: Nov 15, 2019 Time Seen by Provider: 18:30 Initial Comments This is a 54 y/o WF who presents to the ED w/ lower back pain x4days. Pain onset Last Thursday (11/12/2019) while she was being lifted in her ajay lift. Her three adult daughters were helping her off the bed and on to the ajay lift but underestimated her weight and how weak she is, so they buckled and rolled on to the floor instead, pt denies being dropped. States once they managed to secure her on the lift and she began being moved she heard a "loud pop" and started having "crushing pain" in her low back that went down to her bilat LE. Pt denies new pain anywhere else in her body, or any other trauma. Denies fall from ajay lift. Pt had a complicated lengthy stay at the ICU back in 10/20/2019 with AMS and respiratory failure. Pt has had diffuse weakness, decreased sensation, and paresthesias to her bilat UE and LE. Pt denies any new neurologic sx, sensation deficits, or weakness since the fall. Denies bowel or bladder incontinence. Pt has hx of hysterectomy with salpingo-oophorectomy back in her 40s, denies hormone replacement or vitamin D supplement. Location: Lumbar Spine Timing/Duration: 3-4 Days Severity: Moderate Pain/Injury Location: None Method of Injury: Other (muscle strain while on ajay lift) Modifying Factors: Improves With Immobilization; Worse With Movement Associated Symptoms: denies symptoms; No loss of bladder control, No loss of bowel control (ALMA JUNG [email or web address]) Allergies and Home Medications Allergies Coded Allergies: No Known Drug Allergies (Unverified , 04/29/19) Home Medications Albuterol Sulfate 18 Gm Hfa.aer.ad, 2 PUFF INH Q4H PRN for SHORTNESS OF BREATH, (Reported) Amiodarone HCl 200 Mg Tablet, 200 MG PO DAILY Prescribed by: ACE DIAMOND on 10/24/19 1035 Atorvastatin Calcium 40 Mg Tablet, 40 MG PO HS, (Reported) Buprenorphine HCl/Naloxone HCl 1 Each Film, 1 FILM SL TID, (Reported) Famotidine 20 Mg Tablet, 20 MG PO BID Prescribed by: ACE DIAMOND on 10/24/19 103 Fluoxetine HCl 10 Mg Tablet, 10 MG PO DAILY, (Reported) LAST FILLED #30 07-18-19 Fluticasone/Salmeterol 1 Each Blst.w.dev, 1 PUFF IH BID, (Reported) LAST FILLED 07-30-19 #60 Furosemide 40 Mg Tablet, 40 MG PO DAILY, (Reported) LAST FILLED #30 04-29-19 Insulin Determir 1,000 Units/10 Ml Soln, 5 UNIT SQ HS Prescribed by: ACE DIAMOND on 10/24/19 103 Ipratropium/Albuterol Sulfate 3 Ml Ampul.neb, 3 ML NEB QID PRN for SHORTNESS OF BREATH, (Reported) Levetiracetam 500 Mg Tablet, 500 MG PO BID Prescribed by: ACE DIAMOND on 10/24/19 103 Lisinopril 10 Mg Tablet, 20 MG PO DAILY Prescribed by: ACE DIAMOND on 10/24/19 103 Metoprolol Tartrate 50 Mg Tablet, 100 MG PO BID Prescribed by: ACE DIAMOND on 10/24/19 103 Ondansetron 4 Mg Tab.rapdis, 4 MG PO Q4H PRN for NAUSEA/VOMITING-1ST LINE, (Reported) Potassium Chloride 20 Meq Tablet.er, 20 MEQ PO DAILY, (Reported) Prednisone 10 Mg Tab.ds.pk, 10 MG PO DAILY Take 6 tabs(60mg)daily,decrease by 1 tab(10mg)every other day. Prescribed by: ACE DIAMOND on 10/24/19 103 Rivaroxaban 20 Mg Tablet, 20 MG PO DAILY@1700 Prescribed by: ACE DIAMOND on 10/24/19 1035 Sennosides/Docusate Sodium 1 Each Tablet, 1 EA PO BID PRN for CONSTIPATION-1ST LINE Prescribed by: ACE DIAMOND on 10/24/19 1035 Tiotropium Par[place]lee 4 Gm Mist.inhal, 1-2 PUFF INH DAILY, (Reported) Patient Home Medication List Home Medication List Reviewed: Yes (GENA ANGULO MD) Review of Systems Constitutional: No fever; weakness (chronic); No weight loss EENTM: no symptoms reported Respiratory: no symptoms reported Cardiovascular: no symptoms reported Gastrointestinal: No abdominal pain; constipation; No nausea, No vomiting Genitourinary: No dysuria, No incontinence Musculoskeletal: back pain, muscle weakness (chronic) Skin: no symptoms reported Psychiatric/Neurological: Numbness (chronic), Paresthesia (chronic ), Tingling (chronic), Weakness (chronic) (ALMA JUNG) Skin: change in color, lesions (GENA ANGULO MD) All Other Systems Reviewed Negative Unless Noted: Yes (GENA ANGULO MD) Past Blwmhar-Qiqtyq-Zlykef Hx Past Med/Social Hx: Reviewed Nursing Past Med/Soc Hx (GENA ANGULO MD) Patient Social History Alcohol Use: Past History Number of Drinks Today: GG Alcohol Beverage of Choice: Whiskey Recreational Drug Use: No Smoking Status: Former Smoker Type Used: Cigarettes 2nd Hand Smoke Exposure: Yes Recent Foreign Travel: No Contact w/Someone Who Travel: No Recent Infectious Disease Expo: No Recent Hopitalizations: No (ALMA JUNG [facility]) Immunizations Up To Date Tetanus Booster (TDap): Unknown (ALMA JUNG [facility]) Past Medical History Surgeries: Yes Hysterectomy Respiratory: Yes Pneumonia, Chronic Bronchitis, COPD Cardiac: Yes Hypertension Neurological: No 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 Disorders: Yes Female 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 Disorders: Denies Sexually Transmitted Disease: No HIV/AIDS: No Gastrointestinal: Yes Gastroesophageal Reflux Musculoskeletal: Yes (pt reports being a quad) Endocrine: No Cancer: No Psychosocial: Yes Bipolar, Depression Blood Disorders: No Adverse Reaction/Blood Tranf: No (ALMA JUNG [facility]) Family Medical History Reviewed Nursing Family Hx (GENA ANGULO MD) Cerebrovascular accident (CVA) 19 FATHER, Onset:60 years & older FH: testicular cancer G8 BROTHER, Onset:30's - 40 Hypertension 19 FATHER, Onset:Unknown 19 MOTHER, Onset:Unknown G8 BROTHER, Onset:Unknown G8 BROTHER, Onset:Unknown Myocardial infarction 19 FATHER, Onset:40's - 50 Heart Disease, Hypertension (ALMA JUNG [facility]) Physical Exam Vital Signs Vital Signs - First Documented 11/15/19 17:49 Temp 37.2 Pulse 98 Resp 23 B/P (MAP) 126/85 (99) Pulse Ox 95 O2 Delivery Room Air (GENA ANGULO MD) Vital Signs Capillary Refill : Less Than 3 Seconds (ALMA JUNG [facility]) Height, Weight, BMI Height: 5'5.00" Weight: 218lbs. 0.0oz. 98.724487wn; 35.00 BMI Method:Stated General Appearance: No Apparent Distress, WD/WN HEENT: PERRL/EOMI, TMs Normal Neck: Full Range of Motion, Normal Inspection, Non Tender, Supple Cardiovascular: Regular Rate, Rhythm, No Edema, No Gallop, No JVD, No Murmur, Normal Peripheral Pulses Respiratory: Chest Non Tender, Lungs Clear, Normal Breath Sounds, No Accessory Muscle Use, No Respiratory Distress Gastrointestinal: No Organomegaly, No Pulsatile Mass, Non Tender, Soft; No Distended, No Guarding; Other (increased bowel sounds) Genital/Rectal: Other (several superficial lesions to bilat buttocks and around vulvar region, likely 2/2 pressure from prolonged immobilization) Back: Normal Inspection, No CVA Tenderness, No Vertebral Tenderness Extremity: Normal Capillary Refill, No Pedal Edema, Other (muscular atrophy to bilat LE and UE) Neurologic/Psychiatric: Alert, Oriented x3, Normal Mood/Affect, Motor Weakness (chronic since ICE stay, LLE worse than RLE, equally to bilat UE; ), Sensory Deficit (2 point discrimination and dermatomal sensation decreased bilaterally but worse on LLE than RLE) Skin: Normal Color, Warm/Dry Lymphatic: No Adenopathy (ALMA JUNG [facility]) Cardiovascular: Regular Rate, Rhythm, No Murmur Respiratory: Lungs Clear, No Respiratory Distress Gastrointestinal: Non Tender, Soft, Abnormal Bowel Sounds (active to hyperactive bowel sounds) Neurologic/Psychiatric: Alert, Oriented x3 Skin: Warm/Dry, Other (does have mild skin breakdown to the area of the buttocks left greater than right near the angela-area. This is currently under therapy.) (GENA ANGULO MD) Procedures/Interventions Date of ETT Placement: Oct 07, 2019 Time of ETT Placement: 010 (ALMA JUNG [facility]) Progress/Results/Core Measures Results/Orders My Orders Orders - GENA ANGULO MD Ct Lumbar Spine Wo (11/15/19 19:01) (GENA ANGULO MD) Vital Signs/I&O 11/15/19 17:49 Temp 37.2 Pulse 98 Resp 23 B/P (MAP) 126/85 (99) Pulse Ox 95 O2 Delivery Room Air (GENA ANGULO MD) Blood Pressure Mean: 99 Progress Progress Note : Time: 18:30 Progress Note Seen and evaluated. Presentation concerning for muscle strain and lumbar fracture. will order lumbar CT scan. @193: CT of lumbar shows questionable L2 compression fracture. CT of abd and pelvis shows considerable fecal matter in large bowel and moderate amount of gas. Will perform lymphatic Osteopathic manipulative treatment to help with her constipation. Will also do paraspinal inhibition to decrease sympathetic facilitation to the region, will perform sacral rocking to increase parasympathetic stimulation to help with BM. ([facility]MA JUNG [facility]) Progress Note : Progress Note I have seen and evaluated the patient and agree with above except as indicated. I have directed the plan of care. Patient is here with report of low back pain. This occurred after injury while lifting the patient and her bed with hydraulic lift. She states that she felt a pop. Pain has occurred since. She has global weakness and DVT in the right upper and lower leg after having severe illness requiring ventilation. She was discharged to assisted but ultimately is at home now with physical therapy and home health nursing. She is concerned about significant fracture or other injury and wanted to be checked out. Plan is for CT lumbar spine as well as CT abdomen and pelvis due to report of left sided abdominal pain. 2031: Discussed results of CT with the patient and family. Question of mild L2 compression fracture and certainly the constipation. OMT performed by med students. Patient states that actually feels better. She will be transported home by EMS as she has no other way to get home currently. Discharged home with return precautions. Patient and family verbalize understanding instructions and agreement with plan. (GENA ANGULO MD) Diagnostic Imaging Comments [facility] [place], [place] NAME: ZEKE MEDELLIN [facility] REC#: [id number] PT STATUS: REG ER : 1965 PHYSICIAN: GENA ANGULO MD ADMIT DATE: 11/15/19/ER Date of Exam:11/15/19 CT LUMBAR SPINE WO PROCEDURE: CT lumbar spine without contrast. TECHNIQUE: Multiple contiguous axial images were obtained through the lumbar spine without the use of intravenous contrast. Sagittal and coronal reformations were then performed. Auto Exposure Controls were utilized during the CT exam to meet ALARA standards for radiation dose reduction. INDICATION: Back injury with pain Comparison is made to previous CT scan of the abdomen and pelvis dated 10/19/2019 Lumbar spinal curvature and alignment are unremarkable. There is slight concavity to the superior endplate of L1. This does represent a change when compared to previous study and could represent minimal compression fracture. No significant paraspinous hematoma is identified. No other fracture or malalignment is seen. IMPRESSION: Slight concavity to the superior endplate of L2 may represent minimal compression fracture deformity. MRI may be of value for marrow assessment. Dictated on workstation # [id number] Dict: 11/15/191935 Trans: 11/15/19 1940 JOHN [id number] Interpreted by: TOBY MARTIN MD Electronically signed by: [facility] [place], [place] NAME: ZEKE MEDELLIN [facility] REC#: [id number] PT STATUS: REG ER : 1965 PHYSICIAN: SAL BONILLA APRN ADMIT DATE: 11/15/19/ER Draft Date of Exam:11/15/19 CT ABDOMEN/PELVIS WO PROCEDURE: CT abdomen and pelvis without contrast. TECHNIQUE: Multiple contiguous axial images were obtained through the abdomen and pelvis without the use of intravenous contrast. Auto Exposure Controls were utilized during the CT exam to meet ALARA standards for radiation dose reduction. INDICATION: Left abdominal pain. COMPARISON is made to study of 10/19/2019 There has been mild further increase in basilar atelectasis and probable pneumonitis, greater in the right lower lobe. There are several low-density foci in the right lobe of the liver, likely representing hepatic cysts. Otherwise, unenhanced images of the liver, gallbladder, pancreas, adrenal glands and spleen are unremarkable. Tiny fat containing nodule in the anterior left kidney is stable. There is a nonobstructing punctate calcification in the lower pole of the right kidney. There is no evidence of ureteric stone or dilatation. There is a large amount of stool within the rectum with mild to moderate amounts of stool and gas throughout the colon elsewhere. There is no evidence of free fluid within the abdomen or pelvis. No organized fluid collection is identified. There is mild aortoiliac atherosclerotic calcification. IMPRESSION: There has been an increase in stool at the level of the rectum. The possibility of fecal impaction is not excluded. Mild increase in basilar atelectasis and/or pneumonitis, greater on the right. Dictated on workstation # [id number] Dict: 11/15/191928 Trans: 11/15/191938 [facility] [id number] Interpreted by: TOBY MARTIN MD Electronically signed by: (ALMA JUNG [facility]) Departure Impression Primary Impression: Compression fracture of L2 Qualified Codes: S32.020A - Wedge compression fracture of second lumbar vertebra, initial encounter for closed fracture Additional Impression: Constipation Qualified Codes: K59.00 - Constipation, unspecified Disposition: 01 HOME, SELF-CARE Condition: Stable Departure-Patient Inst. Decision time for Depature: 20:39 (GENA ANGULO MD) Referrals: BROOKE JOYNER DO (PCP) Primary Care Physician HEIDI HARTLEY APRN (Family) Primary Care Physician Patient Instructions: Constipation, Adult (DC), Vertebral Compression Fracture (DC) Add. Discharge Instructions: All discharge instructions reviewed with patient and/or family. Voiced understanding. You may use Tylenol and/or ibuprofen for pain per package directions. Follow up your doctor for recheck and further evaluation and for consideration of lumbar spine MRI to further evaluate the possibility of compression fracture. For the constipation, you may take MiraLAX or the generic, one capful twice daily for the next 3 days and then one half capful twice daily thereafter as needed to keep stools soft. You may increase or decrease to keep stools in normal range. You may try a Dulcolax suppository to assist with the first bowel movement if needed. Drink plenty of fluids. Return for worse pain, weakness, breathing problems, fever or other concerns as needed. ALMA JUNG MED STUD Nov 15, 2019 19:34 GENA ANGULO MD Nov 15, 2019 20:15
--- NOTE | 2019-11-15 19:39 | Diagnostic Imaging Report ---
PROCEDURE: CT abdomen and pelvis without contrast. TECHNIQUE: Multiple contiguous axial images were obtained through the abdomen and pelvis without the use of intravenous contrast. Auto Exposure Controls were utilized during the CT exam to meet ALARA standards for radiation dose reduction. INDICATION: Left abdominal pain. COMPARISON is made to study of 10/19/2019 There has been mild further increase in basilar atelectasis and probable pneumonitis, greater in the right lower lobe. There are several low-density foci in the right lobe of the liver, likely representing hepatic cysts. Otherwise, unenhanced images of the liver, gallbladder, pancreas, adrenal glands and spleen are unremarkable. Tiny fat containing nodule in the anterior left kidney is stable. There is a nonobstructing punctate calcification in the lower pole of the right kidney. There is no evidence of ureteric stone or dilatation. There is a large amount of stool within the rectum with mild to moderate amounts of stool and gas throughout the colon elsewhere. There is no evidence of free fluid within the abdomen or pelvis. No organized fluid collection is identified. There is mild aortoiliac atherosclerotic calcification. IMPRESSION: There has been an increase in stool at the level of the rectum. The possibility of fecal impaction is not excluded. Mild increase in basilar atelectasis and/or pneumonitis, greater on the right. Dictated by: Dictated on workstation # [id number]
--- NOTE | 2019-11-15 19:41 | Diagnostic Imaging Report ---
PROCEDURE: CT lumbar spine without contrast. TECHNIQUE: Multiple contiguous axial images were obtained through the lumbar spine without the use of intravenous contrast. Sagittal and coronal reformations were then performed. Auto Exposure Controls were utilized during the CT exam to meet ALARA standards for radiation dose reduction. INDICATION: Back injury with pain Comparison is made to previous CT scan of the abdomen and pelvis dated 10/19/2019 Lumbar spinal curvature and alignment are unremarkable. There is slight concavity to the superior endplate of L1. This does represent a change when compared to previous study and could represent minimal compression fracture. No significant paraspinous hematoma is identified. No other fracture or malalignment is seen. IMPRESSION: Slight concavity to the superior endplate of L2 may represent minimal compression fracture deformity. MRI may be of value for marrow assessment. Dictated by: Dictated on workstation # [id number]
--- NOTE | 2019-11-15 20:43 | NUR ---
Dispatch called for EMS transport back to pt's home per Dr. Molina.
[2019-11-15 21:20] VITALS: BP 126/85
--- OUTSIDE RECORDS SUMMARY | 2019-11-25 15:43 | XMS REPORT ---
Author Author Helene Solomon Doctor Organization [facility] Address Unknown Phone Unavailable Care Team Providers Care Carton Forming Machine Tender Name Role Phone Migration, Doctor Unavailable Unavailable PROBLEMS Type Condition ICD9-CM Code [id number] Code Onset Dates Condition S tatus SNOMED Code Problem Counseling on substance use and abuse V65.42 Active [id number] ALLERGIES No Information ENCOUNTERS Encounter Location Date Diagnosis [facility] [address] [id number] [address] [place] [phone] Jan, [facility] [address] [id number] [address] [place] [phone] Jan, [facility] [address] [id number] [address] [place] [phone] Jan, [facility] [address] [id number] [address] [place] [phone] Sep, [facility] [address] [id number] [address] [place] [phone] Sep, [facility] [address] [facility] [id number] [address] [place] [phone] Sep, [facility] [address] [id number] [address] [place] [phone] Aug, [facility] [address] [id number] [address] [place] [phone] Aug, [facility] [address] [id number] [address] [place] [phone] Aug, [facility] [address] [facility] [id number] [address] [place] [phone] Dec, [facility] [address] [facility] [id number] [address] [place] [phone] Sep, [facility] [address] [facility] [id number] [address] [address] Sep, [facility] [address] [facility] [id number] [address] [place] [phone] Aug, [facility] [address] [facility] [id number] [address] [place] [phone] Jul, IMMUNIZATIONS No Known Immunizations SOCIAL HISTORY Never Assessed [place] V[place]IT [place] [place] VITAL SIGNS MEDICATIONS Unknown Medications RESULTS No Results PROCEDURES No Known procedures INSTRUCTIONS MEDICATIONS ADMINISTERED No Known Medications
--- OUTSIDE RECORDS SUMMARY | 2019-11-25 15:43 | XMS REPORT ---
Author Author Helene Solomon Doctor Organization [facility] Address Unknown Phone Unavailable Care Team Providers Care Hand Rigger Name Role Phone Migration, Doctor Unavailable Unavailable PROBLEMS Type Condition ICD9-CM Code [id number] Code Onset Dates Condition S tatus SNOMED Code Problem Counseling on substance use and abuse V65.42 Active [id number] ALLERGIES No Information ENCOUNTERS Encounter Location Date Diagnosis [facility] [address] [id number] [address] [place] [phone] Jan, [facility] [address] [id number] [address] [place] [phone] Jan, [facility] [address] [id number] [address] [place] [phone] Jan, [facility] [address] [id number] [address] [place] [phone] Sep, [facility] [address] [id number] [address] [place] [phone] Sep, [facility] [address] [facility] [id number] [address] [place] [phone] Sep, [facility] [address] [id number] [address] [place] [phone] Aug, [facility] [address] [id number] [address] [place] [phone] Aug, [facility] [address] [id number] [address] [place] [phone] Aug, [facility] [address] [facility] [id number] [address] [place] [phone] Dec, [facility] [address] [facility] [id number] [address] [place] [phone] Sep, [facility] [address] [facility] [id number] [address] [place] [address] Sep, [facility] [address] [facility] [id number] [address] [place] [phone] Aug, [facility] [address] [facility] [id number] [address] [place] [phone] Jul, IMMUNIZATIONS No Known Immunizations SOCIAL HISTORY Never Assessed [place] FOR [place]IT [place] [place] VITAL SIGNS MEDICATIONS Medication Instructions Dosage Frequency Start Date End Date Duration S tatus MethylPREDNISolone 4 mg 4 mg by Oral rou te 1 time per dayas directed; february sub 5mg prednisone for cost Sep, Acti ve Albuterol Sulfate 90 mcg/actuation 2 puf fs by Inhalation route every 4-6 hours as neededPRNcough or wheezing Sep, Active Symbicort by Inhalation route Sep, Active Lisinopril-Hydrochlorothiazide by Oral route20/12.5mg daily Sep, Active Zithromax Z-Waqas 250 mg 2 tablet by Oral route 1 time per dayon day 1 then take 1 tab daily on days 2-5 Sep, Acti ve RESULTS No Results PROCEDURES No Known procedures INSTRUCTIONS MEDICATIONS ADMINISTERED No Known Medications
== END ==
LOC: ER 17:49 → EDUNIT# 17:49
DX: S32.020A Wedge compression fracture of second lumbar vertebra, initial encounter for closed fracture (principal); K59.00 Constipation, unspecified; J44.9 Chronic obstructive pulmonary disease, unspecified; I10 Essential (primary) hypertension; K21.9 Gastro-esophageal reflux disease without esophagitis; F31.9 Bipolar disorder, unspecified; Z79.51 Long term (current) use of inhaled steroids; Z79.4 Long term (current) use of insulin; Z77.22 Contact with and (suspected) exposure to environmental tobacco smoke (acute) (chronic); Z87.891 Personal history of nicotine dependence; Z82.49 Family history of ischemic heart disease and other diseases of the circulatory system; Z80.43 Family history of malignant neoplasm of testis; X50.1XXA Overexertion from prolonged static or awkward postures, initial encounter
CPT/HCPCS: 72131; 74176

== ENCOUNTER → 2020-01-17 | Outpatient (CLI) | payer BC ==
--- NOTE | 2020-01-17 13:42 | Diagnostic Imaging Report ---
PROCEDURE: MR imaging of the brain without contrast. TECHNIQUE: Multiplanar, multisequence MR imaging of the brain was performed without contrast. INDICATION: Right hand numbness and foot drop. No prior MRI brain studies available for comparison. Ventricular size and sulcal pattern are normal. There is fairly significant periventricular and subcortical white matter signal abnormality. This is much more prominent than typical for a patient this age. This likely on the basis of chronic microvascular ischemia. The normal expected flow-voids within the carotid siphons are seen. No diffusion restriction is identified to suggest acute ischemia. No acute intra-axial or extra-axial hemorrhage is detected. Corpus callosum is unremarkable. The sella and parasellar structures are unremarkable. IMPRESSION: Changes of chronic microvascular ischemia, much more prominent than typical for a patient of this age. No acute intracranial process is detected. Dictated by: Dictated on workstation # [id number]
== END ==
LOC: RAD 11:57
PROVIDERS: ATTEND Emergency Medicine
DX: G82.50 Quadriplegia, unspecified (principal)
CPT/HCPCS: 70551

== ENCOUNTER 2020-01-22 05:57 | Inpatient (IN) | payer BC ==
[~2020-01-22] VITALS: Ht 165 cm; Wt 88.5 kg
[2020-01-22] VITALS (27 sets, daily range): BP systolic 106–167; BP diastolic 60–115
--- OUTSIDE RECORDS SUMMARY | 2020-01-22 06:03 | XMS REPORT ---
Author Author Helene Solomon Doctor Organization [facility] Address Unknown Phone Unavailable Care Team Providers Care Rn Corrections Name Role Phone Migration, Doctor Unavailable Unavailable PROBLEMS Type Condition ICD9-CM Code MHF49-GM Code Onset Dates Condition S tatus SNOMED Code Problem Counseling on substance use and abuse V65.42 Active [id number] ALLERGIES No Information ENCOUNTERS Encounter Location Date Diagnosis [facility] [address] [id number] [address] [place] [phone] Jan, [facility] [address] [id number] [address] [place] [phone] Jan, [facility] [address] [id number] [address] [place] [phone] Jan, [facility] [address] [id number] [address] [place] [phone] Sep, [facility] [address] [id number] [address] [place] [phone] Sep, [facility] [address] [id number] [address] [place] [phone] Sep, [facility] [address] [id number] [address] [place] [phone] Aug, [facility] [address] [id number] [address] [place] [phone] Aug, [facility] [address] [id number] [address] [place] [phone] Aug, [facility] [address] [id number] [address] [place] [phone] Dec, [facility] [address] [id number] [address] [place] [phone] Sep, [facility] [address] [facility] [id number] [address] [place] [phone] Sep, [facility] [address] [facility] [id number] [address] [place] [phone] Aug, [facility] [address] [facility] [id number] [address] [place] [phone] Jul, IMMUNIZATIONS No Known Immunizations SOCIAL HISTORY Never Assessed REASON FOR VISIT PLAN OF CARE VITAL SIGNS MEDICATIONS Unknown Medications RESULTS No Results PROCEDURES No Known procedures INSTRUCTIONS MEDICATIONS ADMINISTERED No Known Medications
--- OUTSIDE RECORDS SUMMARY | 2020-01-22 06:03 | XMS REPORT ---
Author Author [employer]. Organization [facility] Address [address] [address] Care Team Providers Care Hotel Front Desk Agent Name Role Phone BROOKE JOYNER Unavailable BROOKE JOYNER DO Unavailable Unavailable HEIDI HARTLEY PLANOGRAMMER Unavailable Unavailable BROOKE JOYNER Unavailable Migration, Doctor Unavailable Unavailable Migration, Doctor Unavailable Unavailable PREMA SUERO, KRISTIE Stark Unavailable Unavailable HEIDI HARTLEY PLANOGRAMMER Unavailable Unavailable BROOKE JOYNER DO Unavailable Unavailable KEV SUERO, GENA Cerda Unavailable Unavailable FABI SUERO, BROOKLYN Owens Unavailable Unavailable FABI SUERO, BROOKLYN Owens Unavailable Unavailable KONG ARTEAGA DO Unavailable Unavailable JASEN SUERO FACC, JESS FACP CCDS Unavailable Unavailguero HUNG MD, WU Aaron Unavailable Unavailable Migration, Doctor Unavailable Unavailable Allergies Normalized Allergy Reported Date of Reaction(s) Care Provider Facility Allergy Type classification allergen Allergy Onset MA (14 Unclassified NKANo Known 06-05-2015 - no information KANE CKY Not Available sources.) Allergies [place] (61561) DO DA (7 Unclassified No Known Drug 04-29-2019 - no information [facility] Via sources.) Allergies AR [facility] (59231) Medications Current Medications Medication Ingredient Drug Dose Dates Status Sig Sig Care Class(es) (Normalized) (Original) Provid er albuterol Albuterol / Anticholine Active no Ipratropiu m/ no 0.833 mg/ml Ipratropium rgic, information Albuterol name / beta2-Adren Sulfate (no ipratropium ergic Active 3 NOT phone) bromide Agonist APPLICABLE 0.167 mg/ml Four Times inhalant Daily as solution (2 needed for sources.) Shortness Of Breath amiodarone Amiodarone Antiarrhyth 10-24-19 Active no Amiodar one no hydrochlori karime 20 information Hcl Active name de 200 mg 200 ORAL (no oral tablet Daily 30 30 phone) (2 October sources.) 2019 10:35am atorvastati atorvastati HMG-CoA Active no Atorvastatin no n 40 mg n Reductase information Calcium name oral tablet Inhibitor Active 40 (no (2 ORAL Bedtime phone) sources.) docusate Docusate / no 10-24-19 Active no Sennosides/D n o sodium 50 sennosides, information 20 information ocusate name mg / PRISON Sodium (no sennosides, Active 1 phone) long term 8.6 mg ORAL Twice A oral tablet Day as (2 needed for sources.) Constipation -1ST Line 30 October 24, 2019 10:35am FLUoxetine FLUoxetine Serotonin Active no Fluoxetine no 10 mg oral Reuptake information Hcl Active name tablet (2 Inhibitor 10 ORAL (no sources.) Daily LAST phone) FILLED #30 07-18-19 60 actuat fluticasone Corticoster 04-28-20 Active no Flutica sone/ no fluticasone / oid, 19 information Salmeterol n dave propionate salmeterol beta2-Adren Active 1 (no 0.25 ergic RESPIRATORY phone) mg/actuat / Agonist (INHALATION) salmeterol Twice A Day 0.05 LAST FILLED mg/actuat 07-30-19 #60 dry powder inhaler (4 sources.) insulin insulin Insulin 10-24-19 Active no Insulin no detemir 100 detemir Analog 20 information Determir nam e unt/ml Active 5 (no injectable SUBCUTANEOUS phone) solution (2 Bedtime 3 30 sources.) October 24, 2019 10:35am levETIRAcet levETIRAcet no 10-24-19 Active no Levetiracet a no am 500 mg am information 20 information m Active 50 0 name oral tablet ORAL Twice A (no (2 Day 180 90 phone) sources.) October 24, 2019 10:35am lisinopril Lisinopril Angiotensin 10-24-19 Active no Lisinop ril no 10 mg oral Converting 20 information Active 20 name tablet (2 Enzyme ORAL Daily (no sources.) Inhibitor 90 90 phone) October 24, 2019 10:35am Prednisone predniSONE no 10-24-19 Active take 6 Prednisone n o (2 information 20 tablets by Active 10 name sources.) mouth once ORAL Daily (no daily, then October phone) take 1 2019 tablet by 10:35am Take mouth every 6 other day tabs(60mg)da carloz,decrease by 1 tab(10mg)ozzie ry other day. rivaroxaban rivaroxaban Factor Xa 10-24-19 Active no Rivarox aban no 20 mg oral Inhibitor 20 information Active 20 name tablet (2 ORAL (no sources.) Daily@1700 phone) 90 90 October 24, 2019 10:35am Completed/Discontinued Medications Medication Ingredient Drug Dose Dates Status Sig Sig Care Class(es) (Normalized) (Original) Provid er no Albuterol no 1 Complete take 1 Albuterol (no information Sulfate information puff(s d puff(s) by Sulfate phone) (1 source.) (Rx-Proair) ) inhalation (Rx-Proair) 8 Gm twice daily 8 Gm Hfa.aer.ad as needed Hfa.aer.ad 1 Puff RESPIRATORY (INHALATION) Twice A Day as needed for Shortness Of Breath furosemide Furosemide Loop 40 mg 09-07-20 Complete take 1 Fur osemide Ali 40 mg oral Diuretic 18 d tablet by 40 Mg Tablet Facp tablet (3 mouth once 40 Mg ORAL Ccds sources.) daily Daily 30 Tab Jasen 09/07/18 (no phone) gabapentin gabapentin Anti-epilep 10-24-19 Complete no Gabap entin no 600 mg oral tic Agent 20 d information Discontinu ed name tablet (2 600 ORAL (no sources.) Three Times phone) A Day October 24, 2019 metOLazone metOLazone Thiazide-li 10-24-19 Complete no Metol azone no 2.5 mg oral ke Diuretic 20 d information Disconti nued name tablet (2 2.5 ORAL (no sources.) Every Thursday phone) And as needed for Swelling October 24, 2019 no Multivitami no 07-30-20 Complete no Multivitamin no information n With information 15 - d information With name (2 Minerals 09-07-20 Minerals (no sources.) 18 Discontinued phone) 1 ORAL Daily July 30, 2015 7:30pm September 07, 2018 no Multivitami no 07-30-20 Complete no Multivitamin Gretch information n With information 15 - d information With en L (1 source.) Minerals 09-07-20 Minerals Seth (Multivitam 18 (Multivitami (no ins With ns With phone) Minerals) 1 Minerals) 1 Each Each Tablet, Tablet, 1 1 Each Oral Each Oral Daily 07/30/15 Discontinued no Pantoprazol no 40 mg 07-30-20 Complete take 1 Pantop razole (no information e Sodium 40 information 15 d tablet by Sodgus um 40 Mg phone) (1 source.) Mg mouth once Tablet.dr, Tablet.dr, daily, then 40 Mg Oral 40 Mg Oral take 1 Daily tablet by Discontinued mouth potassium Potassium no 20 mEq 09-07-20 Complete take 1 Potas sium Ali chloride 20 Chloride information 18 d tablet by Chlorid e Facp meq Translation mouth once (K-Tab Er) Ccds extended s: [ daily, then 20 Meq Jasen release Potassium take 20 Tablet.er 20 (no oral tablet Chloride] tablets by Meq ORAL phone) (3 mouth Daily 30 Tab sources.) 09/07/18 pregabalin pregabalin no 10-24-19 Complete no Pregabalin no 150 mg oral information 20 d information Disconti nued name capsule (2 150 ORAL (no sources.) Twice A Day phone) October 24, 2019 no Salmeterol no Complete no Salmeterol (no information Xinafoate/F information d information Xinaf oate/Fl phone) (1 source.) luticasone uticasone (Advair 250 (Advair 250 Mcg/50 Mcg Mcg/50 Mcg 60's) 1 60's) 1 Disk Disk Inhp Inhp 1 RESPIRATORY (INHALATION) Twice A Day no Tretinoin/E no 06-05-20 Complete no Tretinoin/Em no information mollient information 15 d information allen nt name (2 Discontinued (no sources.) TOPICAL phone) Daily June 05, 2015 no Tretinoin/E no 06-05-20 Complete no Tretinoin/Em (no information mollient information 15 d information allen nt phone) (1 source.) (Tretinoin (Tretinoin 0.05% 0.05% Emollient Emollient Crm) 40 Gm Crm) 40 Gm Cream.gm., Cream.gm., Topical Topical Daily Discontinued no Trimethopri no 06-05-20 Complete no Trimethoprim no information m/Sulfameth information 15 d information /S ulfamethox name (2 oxazole azole (no sources.) Discontinued phone) 1 ORAL Twice A Day 20 Falguni 1st, 2015 Problems Active Problems Problem Normalized Date of Normalized Normalized Provider Fac ility Classification Problem(s) Problem Problem Problem Sta tus Onset/Resoluti Duration on Other Abdominal Episodic Active BROOKE Not Availabl e gastrointestin distension [place] , (80819) al disorders (gaseous) DO (21 sources.) Residual Acquired Episodic Active KRISTIE ANLIKER [facility] Via codes; absence of , MD [facility] unclassified both cervix Hospital - (2 sources.) and uterus [place] ([address]112) Respiratory Acute and Chronic Active BROOKLYN DUNLAP [facility] V ia failure; chronic MD [facility] insufficiency; respiratory Hospital - arrest (adult) failure with [place] (20 sources.) hypoxia (61363) Phlebitis; Acute embolism Episodic Active [facility] DUNLAP [facility] Via thrombophlebit and thrombosis MD [facility] is and of deep veins Hospital - thromboembolis of right upper [facility] ([place] (10 extremity (40582) sources.) Translations: [ AC EMBLSM AND THOMBOS UNSP DEEP VEINS OF, Deep vein thrombosis (DVT)] Acute and Acute kidney Episodic Active [facility] DUNLAP [facility] Via unspecified failure with MD [facility] renal failure tubular Hospital - (20 sources.) necrosis [place] (28567) Respiratory Acute Episodic Active [facility] DUNLAP [facility] Vi a failure; respiratory MD [facility] insufficiency; distress Hospital - arrest (adult) syndrome [place] (20 sources.) Translations: (33496) [ ACUTE RESPIRATORY FAILURE WITH HYPOXIA, Acute respiratory distress syndrome in adult, Acute respiratory failure] Cataract (7 Age-related Chronic Active KRISTIE ANLIKER [facility] Via sources.) nuclear , MD [facility] cataract, left Hospital - eye [place] Translations: (87352) [ AGE-RELATED NUCLEAR CATARACT, RIGHT EYE, Age-related cataract] Deficiency and Anemia, Episodic Active KONG [facility] Via other anemia unspecified Petra ARTEAGA (2 sources.) DO Hospital [facility] (76839) Coronary Atheroscleroti Chronic Active [facility]N DUNLAP [facility] Via atherosclerosi c heart MD Petra mosley and other disease of Hospital - heart disease [place] (20 sources.) coronary (15863) artery without angina pectoris Bacterial Bacterial Episodic Active no name [place] [facility] a infection; infection due Pet[place] unspecified to Pseudomonas Hospital site (2 (17462) sources.) Mood disorders Bipolar 02-17-2020 - Chronic Active BROOK[facility]N ROSARIO , [facility] Via (20 sources.) disorder, MD [facility] unspecified Hospital - [place] (85289) Other Body mass Chronic Active BROOKLYN DUNLAP , [facility] Via nutritional; index (BMI) MD [facility] endocrine; and 36.0-36.9, Hospital - metabolic adult [place] disorders (20 (46351) sources.) Phlebitis; Chronic Chronic Active [facility] DUNLAP [facility] Via thrombophlebit embolism and MD [facility] is and thrombosis of Hospital - thromboembolis unspecified [place] m (20 deep veins of (83785) sources.) right distal lower extremity Chronic Chronic 11-21-2019 - Chronic Active KRISTIE LENNYNICOLASA [facility] Via obstructive obstructive , MD [facility] pulmonary pulmonary Hospital - disease and disease, [place] bronchiectasis unspecified (59834) (25 sources.) Translations: [ CHRONIC OBSTRUCTIVE PULMONARY DISEASE W ] Other Compression Episodic Active no name [place] Via fractures (1 fracture of L2 [facility] source.) Hospital (51026) Other Constipation Episodic Active no name [place] [facility] gastrointestin Petra al disorders Hospital (1 source.) (37738) Other Constipation, 11-21-2019 - Episodic Active HEIDI NAEEM Not Available gastrointestin unspecified (49423) al disorders (36 sources.) Residual Contact with 11-21-2019 - Episodic Active GENA [facility] Via codes; and MD [place] ANGULO unclassified (suspected) Hospital - (6 sources.) exposure to [place] environmental (24691) tobacco smoke (acute) (chronic) Other nervous Critical Chronic Active [facility] DUNL[facility] Via system illness MD [facility] disorders (4 myopathy Hospital - sources.) [place] (95281) Residual Current Episodic Active no name [place] Via codes; drinker Petra unclassified Hospital (2 sources.) (87348) Diverticulosis Diverticulosis Chronic Active KONG [facility] Via and of large [place]ra ARTEAGA diverticulitis intestine DO Hospital - (3 sources.) without [place] perforation or (35800) abscess without bleeding Residual Do not Episodic Active [facility] DUNLAP [facility] Via codes; resuscitate MD [facility] unclassified Hospital - (4 sources.) [place] (81341) Diseases of Dry mouth, Episodic Active KONG [facility] Via mouth; unspecified [place] ARTEAGA excluding DO Hospital - dental (2 [place] sources.) (10840) Other lower Dyspnea Episodic Active no name [place] [facility] ia respiratory [place] disease (2 Hospital sources.) (49125) Immunizations Encounter for Episodic Active [facility]N FABI , [facility] Via and screening immunization MD [facility] for infectious Hospital - disease (4 [place] sources.) (96805) Essential Essential 11-21-2019 - Chronic Active KRISTIE ANLIKER [facility] Via hypertension (primary) , MD [facility] (24 sources.) hypertension Hospital - [place] (63487) Residual Family history Episodic Active KRISTIE ANLIKER [facility] Via codes; of diabetes , MD [facility] unclassified mellitus Hospital - (2 sources.) [place] (36512) Residual Family history Episodic Active KRISTIE ANLIKER [facility] Via codes; of glaucoma , MD [facility] unclassaletha Hospital - (2 sources.) [place] (12952) Residual Family history 11-21-2019 - Episodic Active KRISTIE ANL EMERITA [facility] Via codes; of ischemic , MD [facility] unclassified heart disease Hospital - (22 sources.) and other [place] diseases of (99841) the circulatory system Residual Family history 11-21-2019 - Episodic Active KRISTIE ANL EMERITA [facility] Via codes; of malignant , MD [facility] unclassified neoplasm of Hospital - (8 sources.) testis [place] (48229) Other liver Fatty (change Chronic Active HEIDI NAEEM [facility] V ia diseases (7 of) liver, not Petra sources.) elsewhere Hospital - classified [place] (24691) Esophageal Gastro-esophag 11-21-2019 - Chronic Active BROOKLYN FABI , [facility] Via disorders (20 eal reflux MD [facility] sources.) disease Hospital - without [place] esophagitis (56585) Gastrointestin Gastrointestin Episodic Active [facility]N FABI , [facility] Via al hemorrhage al hemorrhage, MD [facility] (20 sources.) unspecified Hospital - [place] (49466) Other liver Hepatomegaly, Episodic Active HEIDI NAEEM Not A vailable diseases (10 not elsewhere (69606) sources.) classified Fluid and Hyperkalemia Episodic Active BR[facility]N FABI , [facility] Via electrolyte MD [facility] disorders (20 Hospital - sources.) [place] (41531) Disorders of Hyperlipidemia Chronic Active ALI JASEN , [facility] Via lipid , unspecified MD YAHIR [facility] metabolism (3 Translations: Hospital - sources.) [ PURE [place] HYPERGLYCERIDE (64010) BRO, PURE HYPERGLYCERIDE BRO] Other Hypotension, Episodic Active BROOKLYN DUNLAP , [facility] Via circulatory unspecified MD [facility] disease (20 Hospital - sources.) [place] (52754) Other liver Liver disease, Chronic Active KONG [facility] V ia diseases (2 unspecified Pet[place] ARTEAGA sources.) DO Hospital - [place] (12299) Other senior care Episodic Active KRISTIE ANLIKER [facility] Via aftercare (5 (current) use , MD [place] sources.) of aspirin [facility] (73354) Other intermediate designer 11-21-2019 - Episodic Active GENA [facility] Via aftercare (6 (current) use MD Petra ANGULO sources.) of inhaled [facility] steroids [place] (14286) Other senior care 11-21-2019 - Episodic Active GENA [facility] Via aftercare (6 (current) use MD [place] ANGULO sources.) of insulin [facility] (74135) Spondylosis; Low back pain 11-21-2019 - Episodic Active TIMOTH Y [facility] Via intervertebral MD [place] ANGULO disc Hospital - disorders; [place] other back (00221) problems (6 sources.) Other Morbid Chronic Active [facility] DUNLAP [facility] Via nutritional; (severe) MD [place] endocrine; and obesity with Hospital - metabolic alveolar [place] disorders (4 hypoventilatio (55875) sources.) n Acute Myocardial Chronic Active [facility] DUNLAP [facility] Vi a myocardial infarction MD [facility] infarction (20 type 2 Hospital - sources.) [place] () Substance-rela Nicotine Chronic Active KRISTIE ANLIKER [facility] Via vivian disorders dependence, , MD [facility] (25 sources.) cigarettes, Hospital - uncomplicated [place] (84506) Other Obesity, Chronic Active BROOKLYN DUNLAP , [facility] Via nutritional; unspecified MD [facility] endocrine; and Hospital - metabolic [place] disorders (20 (70728) sources.) Other Other abnormal Episodic Active [facility]KE [facility] Via screening for and Petra JOYNER suspected inconclusive DO Hospital - conditions findings on [place] (not mental diagnostic (18174) disorders or imaging of infectious breast disease) (12 Translations: sources.) [ ENCNTR SCREEN MAMMOGRAM FOR MALIGNANT NE, ABNORMAL FINDING OF BLOOD CHEMISTRY, UNS] Malaise and Other fatigue Episodic Active KONG [facility] Vi a fatigue (2 DEFFENBAPetra FERRELL sources.) DO Hospital - [place] () Other injuries Other foreign Episodic Active [facility] DUNLAP [facility] Via and conditions object in MD [facility] due to respiratory Hospital - external tract, part [place] causes (4 unspecified in (12896) sources.) causing asphyxiation, initial encounter Other Other long Episodic Active JESS CONLEY [facility] Via aftercare (7 term (current) MD YAHIR [facility] sources.) drug therapy [facility] (23906) Spondylosis; Other Chronic Active HEIDI NAEEM [facility] Via intervertebral spondylosis [place] disc with Hospital - disorders; radiculopathy, [place] other back thoracic () problems (3 region sources.) External cause Overexertion 11-21-2019 - Episodic Active CINDYOT HY [facility] Via codes: from prolonged MD Petra ANGULO Natural/enviro static or Hospital - nment (6 awkward [place] sources.) postures, (23077) initial encounter Abdominal pain Pelvic and Episodic Active HEIDI HARTLEY Not A vailable (30 sources.) perineal pain (45502) Translations: [ RIGHT UPPER QUADRANT PAIN, LEFT UPPER QUADRANT PAIN, RIGHT UPPER QUADRANT PAIN, LEFT UPPER QUADRANT PAIN] Screening and Personal 11-21-2019 - Episodic Active GENA [facility] Via history of history of MD Petra ANGULO mental health nicotine Hospital - and substance dependence [place] abuse codes (6 (15528) sources.) Pneumonia Pneumonia due Episodic Active HERON LINTON Via (except that to Pseudomonas MD [facility] caused by Translations: Hospital - tuberculosis [ Bilateral [place] or sexually pneumonia] (64221) transmitted disease) (6 sources.) Aspiration Pneumonitis Episodic Active HERON LINTON Via pneumonitis; due to MD [facility] food/vomitus inhalation of Hospital - (20 sources.) food and vomit [place] (42650) Diabetes Prediabetes Episodic Active HERON LINTON V ia mellitus MD [facility] without Hospital - complication [place] (20 sources.) (89295) Unclassified Prognosis bad no information Active no name [place] Via (2 sources.) [facility] (78280) Septicemia Sepsis, Episodic Active BROOKLYN FABI , [facility] Via (except in unspecified MD [facility] labor) (20 organism Hospital - sources.) [place] (89767) Shock (20 Severe sepsis Episodic Active BR[facility]LYN DUNLAP , [facility] Via sources.) with septic [facility] shock Hospital - Translations: [place] [ Septic (24270) shock] Other lower Shortness of Episodic Active [facility] respiratory breath [place] [facility] disease (1 33061 Hospital source.) (16353) Cardiac Unspecified Chronic Active [facility] DUNLAP [facility] V ia dysrhythmias atrial flutter MD [facility] (20 sources.) Translations: Hospital - [ PAROXYSMAL [place] ATRIAL (30495) FIBRILLATION, Atrial fibrillation with rapid ventricular response] Genitourinary Unspecified Chronic Active BROOKLYN DUNLAP , [facility] Via symptoms and urinary MD [facility] ill-defined incontinence Hospital - conditions (20 [place] sources.) (97931) Complications Ventilator Episodic Active BR[facility]N DUNLAP , [facility] Via of surgical associated MD [facility] procedures or pneumonia Hospital - medical care Translations: [place] (6 sources.) [ (03623) Ventilator-acq uired pneumonia] Other Wedge 11-21-2019 - Episodic Active GENA [facility] V ia fractures (6 compression [place] , MD [facility] sources.) fracture of Hospital - second lumbar [place] vertebra, (42413) initial encounter for closed fracture Past or Other Problems Problem Normalized Date of Normalized Normalized Provider Fac ility Classification Problem(s) Problem Problem Problem Sta tus Onset/Resoluti Duration on Other Diarrhea, Episodic Completed KONG [facility] Via gastrointestin unspecified Petra ARTEAGA al disorders DO Hospital - (3 sources.) [place] (19557) Nausea and Nausea Episodic Completed HEIDI HARTLEY [facility] Via vomiting (4 Petra sources.) [facility] (60638) Procedures Procedure Normalized Procedure Procedure Result Performer Facility Date 09-20-2019 DRAINAGE OF LEFT MAIN no information no name (no ph one) [facility] Via [place] BRONCHUS, ENDO, DI [facility] ([id number]) 09-20-2019 DRAINAGE OF RIGHT MAIN no information no name (no p mellissa) [facility] Via [place] BRONCHUS, ENDO, D [facility] (47399) 10-08-2019 EXTIRPATION OF MATTER no information no name (no ph one) [facility] Via Pet[place] FROM LEFT MAIN BRO [facility] (28298) 10-08-2019 EXTIRPATION OF MATTER no information no name (no ph one) [facility] Via [place] FROM RIGHT MAIN BR [facility] (30592) 09-19-2019 INSERTION OF no information no name (no phone) [facility] Via [place] ENDOTRACHEAL AIRWAY [facility] INTO TR (12109) 10-07-2019 RESPIRATORY no information no name (no phone) [facility] Via [place] VENTILATION, [facility] CONSECUTI (02364) 09-19-2019 RESPIRATORY no information no name (no phone) [facility] Via [place] VENTILATION, [address] [facility] CONSECUTI (44269) 09-19-2019 RESPIRATORY no information no name (no phone) [facility] Via [place] VENTILATION, [facility] THAN (43288) Immunizations Normalized Immunization Date Notes Care Provider Facili ty Immunization influenza, 10-24-2019 - no information no name [facility] Via Ch risti injectable,quadrival 10-24-2019 [facility] urg ent, preservative (23544) free, pediatric vaccine no information BROOKE JOYNER [place] V ia Translations: [ [address] [facility] vaccine] (95702) Results Test Name Value Interpretation Reference Range Date Time Fa cility (Normalized) (Normalized) (Medline Reference) venous blood hemoglobin measurement (mass/volume) on 2018-09-07 Hemoglobin mass 15.7 g/dL (no code) 12.1 - 17.2 g/dL [facility] (Bld[facility] (84718) serum or plasma urea nitrogen/creatin ine mass ratio on 2018-09-07 Urea 11 mg/mg (no code) 6 - 22 mg/mg [place] Vi a nitrogen/Creatin [facility] ine mass ratio (12469) serum or plasma urea nitrogen measurement (mass/volume) on 2018-09-07 Urea nitrogen 9 mg/dL (no code) 7 - 20 mg/dL [place] Via mass [facility] (34057) serum or plasma triglyceride measurement (mass/volume) on 2018-09-07 Triglyceride 267 mg/dL (H) 0 - 150 mg/dL [place] Via [facility] (41157) serum or plasma total bilirubin measurement (mass/volume) on 2018-09-07 Bilirubin mass 1.1 mg/dL (H) 0.1 - 1.2 mg/dL [facility] (75183) serum or plasma sodium measurement (moles/volume) on 2018-09-07 Sodium molar 140 mmol/L (no code) 135 - 145 mmol/L [facility] (24615) serum or plasma protein measurement (mass/volume) on 2018-09-07 Protein mass 7.3 g/dL (no code) 6.4 - 8.3 g/dL [place] Via [facility] (24917) serum or plasma potassium measurement (moles/volume) on 2018-09-07 Potassium molar 3.7 mmol/L (no code) 3.7 - 5.2 mmol/L [facility] (26093) serum or plasma glucose measurement (mass/volume) on 2018-09-07 Glucose mass 137 mg/dL (H) 60 - 125 mg/dL [place] Via [facility] (58070) serum or plasma creatinine measurement with calculation of estimated glomerular filtration rate on 2018-09-07 GFR/1.73 sq M no information (no code) [place] Via [facility] non-blacks MDRD (81469) vol rate/area (S/P/Bld) serum or plasma creatinine measurement (mass/volume) on 2018-09-07 Creatinine mass 0.80 mg/dL (no code) [place] Via [facility] (01716) serum or plasma cholesterol measurement (mass/volume) on 2018-09-07 Cholesterol mass 199 mg/dL (no code) 180 - 200 mg/dL [facility] (31751) serum or plasma cholesterol in vldl measurement (mass/volume) on 2018-09-07 Cholesterol in 53 mg/dL (H) [place] Via VLDL mass [facility] (85674) serum or plasma cholesterol in hdl measurement (mass/volume) on 2018-09-07 Cholesterol in 42 mg/dL (no code) [place] [facility] HDL mass [facility] ([id number]) serum or plasma chloride measurement (moles/volume) on 2018-09-07 Chloride molar 96 mmol/L (L) 95 - 106 mmol/L [facility] ([id number]) serum or plasma calcium measurement (mass/volume) on 2018-09-07 Calcium mass 9.9 mg/dL (no code) 8.5 - 10.2 mg/dL [facility] ([id number]) serum or plasma aspartate aminotransferase measurement (enzymatic activity/volume) on 2018-09-07 AST enzyme 68 U/L (H) 10 - 34 U/L [place] [facility] ([id number]) serum or plasma anion gap determination (moles/volume) on 2018-09-07 Anion gap 3 14 mmol/L (no code) 3 - 11 mmol/L [place] [facility] molar [facility] ([id number]) serum or plasma alkaline phosphatase measurement (enzymatic activity/volume) on 2018-09-07 ALP enzyme 117 U/L (no code) 44 - 147 U/L [place] [facility] ([id number]) serum or plasma albumin measurement (mass/volume) on 2018-09-07 Albumin mass 4.4 g/dL (no code) 3.4 - 5.4 g/dL [place] [facility] ([id number]) serum or plasma alanine aminotransferase measurement (enzymatic activity/volume) on 2018-09-07 ALT enzyme 55 U/L (no code) 4 - 40 U/L [place] [facility] ([id number]) prothrombin time (pt) in platelet poor plasma by coagulation assay on 2018-09-07 Prothrombin time 12.6 s (no code) 9.4 - 12.5 s [facility] (PT) Coag time [facility] (PPP) ([id number]) inr in platelet poor plasma or blood by coagulation assay on 2018-09-07 INR Coag RelTime 0.9 (no code) [place] [facility] (Platelet poor [facility] plasma or blood) ([id number]) cholesterol in ldl [mass/volume] in serum or plasma by direct assay on 2018-09-07 Cholesterol in 123 mg/dL (no code) 0 - 100 mg/dL [facility] LDL mass [facility] ([id number]) carbon dioxide on 2018-09-07 CO2 molar conc 30 mmol/L (no code) 23 - 29 mmol/L [facility] ([id number]) calcium measurement corrected for albumin on 2018-09-07 Albumin mass 9.6 g/dL (no code) 3.4 - 5.4 g/dL [place] [facility] ([id number]) blood leukocytes automated count (number/volume) on 2018-09-07 WBC Auto #/vol 8.2 10*3/uL (no code) 3.5 - 10.5 [place] [facility] (Bld) 10*3/uL [facility] ([id number]) blood hematocrit (volume fraction) on 2018-09-07 Hematocrit Auto 47 % (no code) 36.1 - 50.3 % [facility] Volume Fraction [facility] (d) ([id number]) blood erythrocytes automated count (number/volume) on 2018-09-07 RBC Auto #/vol 4.76 10*6/uL (no code) 4.2 - 6.1 [place] [facility] (Bld) 10*6/uL [facility] ([id number]) automated erythrocyte mean corpuscular volume on 2018-09-07 MCV Auto Entitic 98 fL (no code) 80 - 100 fL [facility] volume (RBC) [facility] ([id number]) automated erythrocyte mean corpuscular hemoglobin concentration measurement (mass/volume) on 2018-09-07 MCHC Auto mass 34 g/dL (no code) 32 - 36 g/dL [place] [facility] conc (RBC) [facility] ([id number]) automated erythrocyte mean corpuscular hemoglobin (mass per erythrocyte) on 2018-09-07 MCH Auto Entitic 33 pg (no code) 27 - 31 pg [place] [facility] mass (RBC) [facility] ([id number]) automated erythrocyte distribution width ratio on 2018-09-07 Erythrocyte 13.5 % (no code) 11.6 - 14.6 % [place] [facility] distribution [facility] width Auto Ratio ([id number]) (RBC) automated blood platelet mean volume measurement on 2018-09-07 Platelet mean 9.4 fL (no code) 7.2 - 11.7 fL [place] [facility] volume Auto [facility] Entitic volume ([id number]) (Bld) automated blood platelet count (count/volume) on 2018-09-07 Platelets Auto 260 10*3/uL (no code) 150 - 450 [place] [facility] #/vol (Bld) 10*3/uL [facility] ([id number]) activated partial thromboplastin time (aptt) in platelet poor plasma bycoagulation assay on 2018-09-07 aPTT Coag time 28 s (no code) 25 - 35 s [place] [facility] (Bld) [facility] ([id number]) Vital Signs The data below is from unstructured sources Vital Response Date/Time Temperature (Fahrenheit) 98.2 degree s F (97.6 - 99.5) 07/30/2015 4:30pm Temperature (Calculated Celsius) 36. 05665 degrees C (36.4 - 37.5) 07/30/2015 4:30pm Temperature Source Temporal 07/30/2015 4:30pm Pulse Rate (adult) 81 bpm (60 - 90) 07/30/2015 4:30pm Respiratory Rate 18 bpm (12 - 24) 07/30/2015 4:30pm O2 Sat by Pulse Oximetry 94 % (88 - 100) 07/30/2015 4:30pm Blood Pressure 189/111 mm Hg 07/30/2015 4:30pm Blood Pressure Mean 137 mm Hg 07/30/2015 4:30pm Pain Pain Intensity 9 2014 6:33pm Height (Feet) 5 feet 4:30pm Height (Inches) 5 inches 07/30/2015 4:30pm Height (Calculated Centimeters) 165. 503634 cm 07/30/2015 4:30pm Weight (Pounds) 192 pounds 07/30/2015 4:30pm Weight (Calculated Kilograms) 87.089 736 kilograms 07/30/2015 4:30pm Calculated BMI 31.95 4:30pm Vital Response Date/Time Temperature (Fahrenheit) 97.0 degree s F (97.6 - 99.5) 06/05/2015 11:45am Temperature (Calculated Celsius) 36. 27181 degrees C (36.4 - 37.5) 06/05/2015 11:45am Temperature Source Tympanic 06/05/2015 11:45am Pulse Rate (adult) 75 bpm (60 - 90) 06/05/2015 11:45am Respiratory Rate 16 bpm (12 - 24) 06/05/2015 11:45am O2 Sat by Pulse Oximetry 90 % (88 - 100) 06/05/2015 11:45am Blood Pressure 140/87 mm Hg 06/05/2015 11:45am Pain Pain Intensity 0 2014 11:45am Height (Feet) 5 feet 10/2014 8:45am Height (Inches) 5.00 inches 06/05/2015 8:45am Height (Calculated Centimeters) 165. 273886 cm 06/05/2015 8:45am Weight (Pounds) 184 pounds 06/05/2015 8:45am Weight (Ounces) 2.0 oz 0 06/05/2015 8:45am Weight (Calculated Grams) 90139.997 gm 06/05/2015 8:45am Weight (Calculated Kilograms) 83.460 997 kilograms 06/05/2015 8:45am Calculated BMI 30.62 10/2014 8:45am Vital Response Date/Time Temperature (Fahrenheit) 97.8 degree s F (97.6 - 99.5) 09/07/2018 6:15pm Temperature (Calculated Celsius) 36. 97241 degrees C (36.4 - 37.5) 09/07/2018 3:14pm Temperature Source Temporal 09/07/2018 6:15pm Pulse Rate (adult) 97 bpm (60 - 90) 09/07/2018 6:15pm Respiratory Rate 18 bpm (12 - 24) 09/07/2018 6:15pm O2 Sat by Pulse Oximetry 90 % (88 - 100) 09/07/2018 6:15pm Blood Pressure 117/99 mm Hg 09/07/2018 6:15pm Blood Pressure Mean 105 mm Hg (65 - 110) 09/07/2018 6:00pm Pain Numeric Pain Scale 0-No Pain 09/07/2018 6:15pm Height (Feet) 5 feet 01/2018 1:12pm Height (Inches) 5.00 inches 09/07/2018 1:12pm Height (Calculated Centimeters) 165. 909797 cm 09/07/2018 1:12pm Weight (Pounds) 218 pounds 09/07/2018 1:12pm Weight (Ounces) 0.0 oz 1 11/08/2017 1:12pm Weight (Calculated Grams) 46422.14 gm 09/07/2018 1:12pm Weight (Calculated Kilograms) 98.883 138 kilograms 09/07/2018 1:12pm Calculated BMI 36.3 01/2018 1:12pm Capillary Refill Capillary Refill Less Than 3 Seconds 09/07/2018 6:00pm No vital signs result information available. Interventions No Information Plan of Treatment Normalized Care Care Detail Care Activity Date Care Provider F acility Activity Bacteria identified no information no information no name [place] [facility] Cx Nom (Sput) [facility] ([id number]) Bacteria identified no information no information no name [place] [facility] Cx Nom (U) [facility] ([id number]) Microscopic no information no information no name [facility] observation Gram [facility] stain Nom (Sput) ([id number]) Microscopic no information no information no name [facility] observation Gram [facility] stain Nom (Unsp ([id number]) spec) Patient Education no information no information no name [facility] ([id number]) Patient referral no information no information no name [facility] ([id number]) Goals Patient Goal Desired Goal no information no information Social History Normalized Code Original Code Date Value Tobacco smoking status Tobacco smoking status no information Smokes tobacco daily [facility] (finding) no information no information 07-30-2015 Occasionally Us es no information no information 07-30-2015 N - PREVIOUS HX PRESCRIPTION DRUG ABUSE no information no information 01-15-2007 No no information no information 09-19-2019 Denies no information no information 09-19-2019 Current Everyda y Smoker no information no information 09-19-2019 Cigarettes no information no information 09-19-2019 Y - [employer] F[employer] [place] Sex Assigned At Sex Assigned At 1965 - Female Tobacco smoking status Tobacco smoking status no information Ex-smoker (finding) [facility] no information no information 11-15-2019 Former Smoker Functional Status The data below is from unstructured sourcesNo functional status results.No functional status results.No functional status results.No functional status results.No functional status results.No functional status information available.No functional status information available.No Functional Status information availableNo Functional Status information availableNo Fu nctional Status information availableNo Functional Status information available Mental Status The data below is from unstructured sourcesNo Mental Status Information AvailableNo Mental Status Information AvailableNo Mental Status Information Available Encounters Encounter Normalized Encounter Encounter Diagnosis Care Provi sujit Organization Date Type 09-07-2018 Admission to day no information [facility]I FACP [facility]S H[facility] D no organization name - surgery Work Phone: (no phone) 09-07-2018 11-15-2019 Emergency department no information WU HUNG MD (no [facility] patient visit phone) GENA Cerda [facility] KEV SUERO (no phone) (no phone) GENA ANGULO MD (no phone) GENA ANGULO MD (no phone) 09-19-2019 Emergency department no information no name (no pilar ne) no organization name patient visit (no phone) 09-19-2019 Evaluation and no information no name (no phone) n o organization name - management of (no phone) 10-24-2019 inpatient 06-03-2018 Patient encounter no information no name (no phone) no organization name (no phone) 05-31-2018 Patient encounter no information no name (no phone) no organization name (no phone) 02-11-2018 Patient encounter no information no name (no phone) no organization name (no phone) 12-15-2017 Patient encounter no information no name (no phone) no organization name (no phone) 03-19-2017 Patient encounter no information no name (no phone) no organization name (no phone) 03-18-2017 Patient encounter no information no name (no phone) no organization name (no phone) 07-23-2016 Patient encounter no information no name (no phone) no organization name (no phone) 06-24-2016 Patient encounter no information no name (no phone) no organization name (no phone) 11-15-2019 Patient encounter no information GENA ANGULO MD [facility] procedure (no phone) [facility] (no phone) 09-19-2019 Patient encounter no information no name (no phone) no organization name - procedure (no phone) 10-24-2019 05-06-2019 Patient encounter no information no name (no phone) no organization name procedure (no phone) 05-06-2019 Patient encounter no information no name (no phone) no organization name - procedure (no phone) 05-06-2019 05-04-2019 Patient encounter no information no name (no phone) no organization name procedure (no phone) 05-04-2019 Patient encounter no information no name (no phone) no organization name - procedure (no phone) 05-04-2019 04-29-2019 Patient encounter no information no name (no phone) no organization name - procedure (no phone) 04-29-2019 04-29-2019 Patient encounter no information no name (no phone) no organization name - procedure (no phone) 04-29-2019 04-28-2019 Patient encounter no information no name (no phone) no organization name procedure (no phone) 04-28-2019 Patient encounter no information no name (no phone) no organization name procedure (no phone) 09-07-2018 Patient encounter no information no name (no phone) no organization name - procedure (no phone) 09-07-2018 09-07-2018 Patient encounter no information no name (no phone) no organization name - procedure (no phone) 09-07-2018 06-03-2018 Patient encounter no information no name (no phone) no organization name procedure (no phone) 05-31-2018 Patient encounter no information no name (no phone) no organization name procedure (no phone) 02-11-2018 Patient encounter no information no name (no phone) no organization name procedure (no phone) 12-15-2017 Patient encounter no information no name (no phone) no organization name procedure (no phone) 06-24-2016 Patient encounter no information no name (no phone) no organization name procedure (no phone) Patient encounter no information no name (no phone) no organ ization name procedure (no phone) no information Encounter for other no name (no phone) no org anization name preprocedural (no phone) examination Medical Equipment The data below is from unstructured sourcesNo Medical Equipment Information availableNo Medical Equipment Information availableNo Medical Equipment Information available Payers Normalized Payer Value [facility] [id number] ([id number]) [facility] no information ([id number]) Evaluation note Note Type Note Facility Evaluation No Assessments Information Available [facility] ([id number]) Advance Directives Directive Response Recor ded Date/Time Advance Directives No 4:30pm Health Care Power of Gastroenterology Nurse No 07/30/15 4:30pm Organ Donor No 07/30/15 4:30pm Resuscitation Status Full Code 07/30/15 4:30pm Directive Response Recor ded Date/Time Advance Directives No 8:45am Health Care Power of Gastroenterology Nurse No 06/05/15 8:45am Organ Donor No 06/05/15 8:45am Resuscitation Status Full Code 06/05/15 8:45am Directive Response Recor ded Date/Time Advance Directives No 1:02pm Health Care Power of Gastroenterology Nurse No 09/07/18 1:02pm Organ Donor No 09/07/18 1:02pm Resuscitation Status Full Code 09/07/18 1:02pm Advance Directive Response Recorded Date/Time Advance Directives No Zamoraber 2018 3:45pm Health Care Power of Gastroenterology Nurse No September 19, 2019 3:45pm Organ Donor No September 19, 2019 3:45pm Resuscitation Status Full Code September 19, 2019 3:45pm Resuscitation Status Do Not Resuscitate October 24, 2019 10:36am Advance Directive Response Recorded Date/Time Advance Directives No Tracie mae 2019 5:49pm Health Care Power of Gastroenterology Nurse No November 15, 2019 5:49pm Organ Donor No November 15, 2019 5:49pm Resuscitation Status Full Code November 15, 2019 5:49pm Discharge Instructions No hospital discharge instructions.No hospital discharge instructions.No hospital discharge instructions.No hospital discharge instruction information available. Additional Source Comments This clinical document has been generated using [employer] software that has been certified by the Office of the National Coordinator for Health Information Technology (ONC 15.99.04.3023.Diam.31.00.0.355612) and the National Committee for [employer] (NCQA, as an eMeasure certified technology). FOR RECORDS PERTAINING TO PATIENTS WHO ARE OR HAVE BEEN ENROLLED IN A CHEMICAL D EPENDENCY/SUBSTANCE ABUSE PROGRAM, SOME INFORMATION MAY BE OMITTED. This clinica l summary was aggregated from multiple sources. Caution should be exercised in using it in the provision of clinical care. This summary normalizes information from multiple sources, and as a consequence, information in this document may ma terially change the coding, format and clinical context of patient data. In lulu tion, data may be omitted in some cases. CLINICAL DECISIONS SHOULD BE BASED ON T HE PRIMARY CLINICAL RECORDS. [employer] provides no warranty or guara ntee of the accuracy or completeness of information in this document.The followi ng information is based on time limited clinical information UNRECOGNIZED CONTENT PROVIDED BELOW FOR UNRECOGNIZED SECTION REASON FOR VISIT [id number]
[2020-01-22] MEDS ORDERED: RT-ALBUTEROL SULF 2.5 MG/3 ML PRE-MIX VIAL INH STA (06:17)
[2020-01-22] MEDS ORDERED: methylPREDNISolone 125 MG (Solu-MEDROL) VIAL IVP ONE (06:30)
[2020-01-22] MEDS ORDERED: RT-ALBUTEROL/IPRATROPIUM 3 ML (DUONEB) VIAL INH ONE ×2 (06:30→12:15)
[2020-01-22 06:42] LABS: BASOPHILS % (AUTO) 0 % (0-10); EOSINOPHILS # (AUTO) 0.2 10^3/uL (0.0-0.3); EOSINOPHILS % (AUTO) 3 % (0-10); HEMATOCRIT 31 % (35-52); HEMOGLOBIN 9.6 G/DL (11.5-16.0); LYMPHOCYTES # (AUTO) 1.9 X 10^3 (1.0-4.0); LYMPHOCYTES % (AUTO) 27 % (12-44); MEAN CORPUSCULAR HEMOGLOBIN 31 PG (25-34); MEAN CORPUSCULAR HGB CONC 31 G/DL (32-36); MEAN CORPUSCULAR VOLUME 100 FL (80-99); MEAN PLATELET VOLUME 9.2 FL (7.4-10.4); MONOCYTES # (AUTO) 0.4 X 10^3 (0.0-1.0); MONOCYTES % (AUTO) 6 % (0-12); NEUTROPHILS # (AUTO) 4.4 X 10^3 (1.8-7.8); NEUTROPHILS % (AUTO) 64 % (42-75); PLATELET COUNT 271 10^3/uL (130-400); RED CELL DISTRIBUTION WIDTH 13.5 % (10.0-14.5); WHITE BLOOD COUNT 6.9 10^3/uL (4.3-11.0)
[2020-01-22 06:52] LABS: ALBUMIN 3.5 GM/DL (3.2-4.5); POTASSIUM 4.5 MMOL/L (3.6-5.0)
--- NOTE | 2020-01-22 06:52 | ED Respiratory ---
General Chief Complaint: Respiratory Problems Stated Complaint: SOB Nursing Triage Note: [facility] Source: patient, EMS, old records Exam Limitations: no limitations History of Present Illness Date Seen by Provider: Jan 22, 2020 Time Seen by Provider: 06:00 Initial Comments This 54-year-old woman presents to the emergency room with shortness of breath, hypoxia, and wheezing. She arrives via EMS from her home. She reports gathering with friends yesterday and resuming smoking despite the [id number] orders and having significant COPD. She had previously quit smoking after being discharged from the hospital in September when she was intubated for respiratory failure and pneumonia. She reports her oxygen saturation at home this morning was 79 percent. Saturation on arrival was 85 percent on 6 L nasal cannula. She was still diffusely wheezing despite DuoNeb treatment by EMS. She denies any chest pain, fever, new cough, travel, or exposure to COVID or individuals under investigation for COVID. Review of her chart notes a cardiac catheterization in 2017 demonstrating normal coronary arteries and normal ejection fraction. She is in sinus rhythm on the monitors. Patient reports she does not use oxygen continuously at home but does have it for use as needed. Allergies and Home Medications Allergies Coded Allergies: No Known Drug Allergies (Unverified , 04/29/19) Home Medications Albuterol Sulfate 18 Gm Hfa.aer.ad, 2 PUFF INH Q4H PRN for SHORTNESS OF BREATH, (Reported) Amiodarone HCl 200 Mg Tablet, 200 MG PO DAILY Prescribed by: ACE DIAMOND on 10/24/19 1035 Atorvastatin Calcium 40 Mg Tablet, 40 MG PO HS, (Reported) Buprenorphine HCl/Naloxone HCl 1 Each Film, 1 FILM SL TID, (Reported) Famotidine 20 Mg Tablet, 20 MG PO BID Prescribed by: ACE DIAMOND on 10/24/19 1035 Fluoxetine HCl 10 Mg Tablet, 10 MG PO DAILY, (Reported) LAST FILLED #30 07-18-19 Fluticasone/Salmeterol 1 Each Blst.w.dev, 1 PUFF IH BID, (Reported) LAST FILLED 07-30-19 #60 Furosemide 40 Mg Tablet, 40 MG PO DAILY, (Reported) LAST FILLED #30 04-29-19 Insulin Determir 1,000 Units/10 Ml Soln, 5 UNIT SQ HS Prescribed by: ACE DIAMOND on 10/24/19 1035 Ipratropium/Albuterol Sulfate 3 Ml Ampul.neb, 3 ML NEB QID PRN for SHORTNESS OF BREATH, (Reported) Levetiracetam 500 Mg Tablet, 500 MG PO BID Prescribed by: ACE DIAMOND on 10/24/19 1035 Lisinopril 10 Mg Tablet, 20 MG PO DAILY Prescribed by: ACE DIAMOND on 10/24/19 1035 Metoprolol Tartrate 50 Mg Tablet, 100 MG PO BID Prescribed by: ACE DIAMOND on 10/24/19 1035 Ondansetron 4 Mg Tab.rapdis, 4 MG PO Q4H PRN for NAUSEA/VOMITING-1ST LINE, (Reported) Potassium Chloride 20 Meq Tablet.er, 20 MEQ PO DAILY, (Reported) Prednisone 10 Mg Tab.ds.pk, 10 MG PO DAILY Take 6 tabs(60mg)daily,decrease by 1 tab(10mg)every other day. Prescribed by: ACE DIAMOND on 10/24/19 103 Rivaroxaban 20 Mg Tablet, 20 MG PO DAILY@1700 Prescribed by: ACE DIAMOND on 10/24/19 1035 Sennosides/Docusate Sodium 1 Each Tablet, 1 EA PO BID PRN for CONSTIPATION-1ST LINE Prescribed by: ACE DIAMOND on 10/24/19 1035 Tiotropium [place] 4 Gm Mist.inhal, 1-2 PUFF INH DAILY, (Reported) Patient Home Medication List Home Medication List Reviewed: Yes Review of Systems Review of Systems Constitutional: no symptoms reported EENTM: no symptoms reported Respiratory: see HPI Cardiovascular: no symptoms reported Gastrointestinal: no symptoms reported Genitourinary: no symptoms reported : No Musculoskeletal: no symptoms reported Skin: no symptoms reported Psychiatric/Neurological: No Symptoms Reported Hematologic/Lymphatic: No Symptoms Reported Immunological/Allergic: no symptoms reported Past Ybwhsel-Eaibkt-Qqchdt Hx Past Med/Social Hx: Reviewed Nursing Past Med/Soc Hx Patient Social History Alcohol Use: Denies Use Number of Drinks Today: GG Alcohol Beverage of Choice: Whiskey Recreational Drug Use: No Smoking Status: Current Someday Smoker Type Used: Cigarettes 2nd Hand Smoke Exposure: Yes Recent Foreign Travel: No Contact w/Someone Who Travel: No Recent Infectious Disease Expo: No Recent Hopitalizations: No Physical Abuse: No Sexual Abuse: No Mistreated: No Fear: No Immunizations Up To Date Tetanus Booster (TDap): Unknown Seasonal Allergies Seasonal Allergies: Yes Past Medical History Surgeries: Yes Hysterectomy Respiratory: Yes Pneumonia, Chronic Bronchitis, COPD Cardiac: Yes Atrial Fibrillation, Hypertension Neurological: Yes Paralysis (Partial paraplegia after intubation September 2019 with right arm weakness and left foot drop) : No 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 Disorders: Yes 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 FINANCIAL History: Menopausal Sexually Transmitted Disease: No HIV/AIDS: No Genitourinary: Yes UTI-Chronic Gastrointestinal: Yes Gastroesophageal Reflux Musculoskeletal: Yes Endocrine: Yes Diabetes, Insulin dep HEENT: No Cancer: No Psychosocial: Yes Bipolar, Depression Integumentary: No Blood Disorders: No Adverse Reaction/Blood Tranf: No Family Medical History Reviewed Nursing Family Hx Cerebrovascular accident (CVA) 19 FATHER, Onset:60 years & older FH: testicular cancer G8 BROTHER, Onset:30's - 40 Hypertension 19 FATHER, Onset:Unknown 19 MOTHER, Onset:Unknown G8 BROTHER, Onset:Unknown G8 BROTHER, Onset:Unknown Myocardial infarction 19 FATHER, Onset:40's - 50 Heart Disease, Hypertension Physical Exam Vital Signs - First Documented Capillary Refill : Less Than 3 Seconds Height: 5'5.00" Weight: 218lbs. 0.0oz. 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, alert, normal mood/affect, oriented x 3, motor weakness (Chronic weakness of the left lower extremity and right upper extremity) Skin: normal color, warm/dry Focused Exam Lactate Level 01/22/20 06:20: Lactic Acid Level 0.78 Lactic Acid Level Laboratory Tests Test 01/22/20 06:20 Lactic Acid Level 0.78 MMOL/L (0.50-2.00) Procedures/Interventions Date of ETT Placement: Oct 07, 2019 Time of ETT Placement: 0100 Progress/Results/Core Measures Suspected Sepsis Recent Fever Within 48 Hours: No Infection Criteria Present: None New/Unexplained Altered Menta: No Sepsis Screen: No Definite Risk SIRS Temperature: Pulse: 97 Respiratory Rate: 27 Laboratory Tests 01/22/20 06:20: White Blood Count 6.9 Blood Pressure 191 /105 Mean: 133 01/22/20 06:20: Lactic Acid Level 0.78 Laboratory Tests 01/22/20 06:20: Creatinine 0.97, INR Comment 1.9H, Platelet Count 271, Total Bilirubin 0.3 Results/Orders Lab Results Laboratory Tests Test 01/22/20 06:20 01/22/20 07:15 Range/Units White Blood Count 6.9 4.3-11.0 10^3/uL Red Blood Count 3.09 L 4.35-5.85 10^6/uL Hemoglobin 9.6 L 11.5-16.0 G/DL Hematocrit 31 L 35-52 % Mean Corpuscular Volume 100 H 80-99 FL Mean Corpuscular Hemoglobin 31 25-34 PG Mean Corpuscular Hemoglobin Concent 31 L 32-36 G/DL Red Cell Distribution Width 13.5 10.0-14.5 % Platelet Count 271 130-400 10^3/uL Mean Platelet Volume 9.2 7.4-10.4 FL Neutrophils (%) (Auto) 64 42-75 % Lymphocytes (%) (Auto) 27 12-44 % Monocytes (%) (Auto) 6 0-12 % Eosinophils (%) (Auto) 3 0-10 % Basophils (%) (Auto) 0 0-10 % Neutrophils # (Auto) 4.4 1.8-7.8 X 10^3 Lymphocytes # (Auto) 1.9 1.0-4.0 X 10^3 Monocytes # (Auto) 0.4 0.0-1.0 X 10^3 Eosinophils # (Auto) 0.2 0.0-0.3 10^3/uL Basophils # (Auto) 0.0 0.0-0.1 10^3/uL Erythrocyte Sedimentation Rate 67 H 0-30 MM/HR Prothrombin Time 22.7 H 12.2-14.7 SEC INR Comment 1.9 H 0.8-1.4 Activated Partial Thromboplast Time 49 H 24-35 SEC D-Dimer 0.62 H 0.00-0.49 UG/ML Sodium Level 143 135-145 MMOL/L Potassium Level 4.5 3.6-5.0 MMOL/L Chloride Level 105 98-107 MMOL/L Carbon Dioxide Level 27 21-32 MMOL/L Anion Gap 11 5-14 MMOL/L Blood Urea Nitrogen 12 7-18 MG/DL Creatinine 0.97 0.60-1.30 MG/DL Estimat Glomerular Filtration Rate 60 BUN/Creatinine Ratio 12 Glucose Level 120 H 70-105 MG/DL Lactic Acid Level 0.78 0.50-2.00 MMOL/L Calcium Level 9.3 8.5-10.1 MG/DL Corrected Calcium 9.7 8.5-10.1 MG/DL Magnesium Level 2.0 1.6-2.4 MG/DL Total Bilirubin 0.3 0.1-1.0 MG/DL Aspartate Amino Transf (AST/SGOT) 57 H 5-34 U/L Alanine Aminotransferase (ALT/SGPT) 25 0-55 U/L Alkaline Phosphatase 95 40-136 U/L Lactate Dehydrogenase 300 H 125-220 U/L C-Reactive Protein High Sensitivity 1.26 H 0.00-0.50 MG/DL B-Type Natriuretic Peptide 950.3 H <100.0 PG/ML Total Protein 6.3 L 6.4-8.2 GM/DL Albumin 3.5 3.2-4.5 GM/DL Procalcitonin 0.06 <0.10 NG/ML Micro Results Microbiology 01/22/20 Influenza Types A,B Antigen (DEISY) - Final, Complete My Orders Orders - HOUSTON ALMAZAN MD Cbc With Automated Diff (01/22/20 06:17) Comprehensive Metabolic Panel (01/22/20 06:17) Blood Culture (01/22/20 06:17) Sputum Culture (01/22/20 06:17) Urinalysis (01/22/20 06:17) Urine Culture (01/22/20 06:17) Protime With Inr (01/22/20 06:17) Partial Thromboplastin Time (01/22/20 06:17) Chest 1 View, Ap/Pa Only (01/22/20 06:17) Ed Iv/Invasive Line Start (01/22/20 06:17) Ed Iv/Invasive Line Start (01/22/20 06:17) Vital Signs Adult Sepsis Patie Q15M (01/22/20 06:17) O2 (01/22/20 06:17) Remove Rings In Anticipation O (01/22/20 06:17) Lactic Acid Analyzer (01/22/20 06:17) Influenza A And B Antigens (01/22/20 06:17) BNP (01/22/20 06:17) Hs C Reactive Protein (01/22/20 06:17) Magnesium (01/22/20 06:17) Fibrin Degradation Products (01/22/20 06:17) Procalcitonin (Pct) (01/22/20 06:17) Erythrocyte Sedimentation Rate (01/22/20 06:17) LDH (01/22/20 06:17) Methylprednisolone Sod Succ (Solu-Medrol (01/22/20 06:30) Albuterol Pre-Mix Nebs (Rt) (Proventil (01/22/20 06:17) Albuterol/Ipra Inhalation Soln (Duoneb I (01/22/20 06:30) Svn Small Volume Nebulizer (01/22/20 06:17) Svn Small Volume Nebulizer (01/22/20 06:17) Piperacillin Sodium/Tazobactam (Zosyn Vi (01/22/20 07:30) Piperacillin Sodium/Tazobactam (Zosyn Vi (01/22/20 07:17) Medications Given in ED Current Medications Medications Dose Ordered Sig/Chery Route Start Time Stop Time Status Last Admin Dose Admin Albuterol/ Ipratropium 3 ml ONCE ONCE INH 01/22/20 06:30 01/22/20 06:31 DC 01/22/20 06:20 3 ML Methylprednisolone Sodium Succinate 125 mg ONCE ONCE IVP 01/22/20 06:30 01/22/20 06:31 DC 01/22/20 06:35 125 MG Piperacillin Sod/ Tazobactam Sod 4.5 gm/Sodium Chloride 100 ml @ 200 mls/hr ONCE ONCE IV 01/22/20 07:30 01/22/20 08:00 DC 01/22/20 07:34 200 MLS/HR Vital Signs/I&O 01/22/20 01/22/20 01/22/20 01/22/20 06:05 06:05 06:15 06:30 Temp 36.9 Pulse 97 97 91 Resp 27 26 18 B/P (MAP) 191/105 (133) 166/115 (132) 166/87 (113) Pulse Ox 89 89 89 90 O2 Delivery Nasal Cannula Nasal Cannula Nasal Cannula Nasal Cannula O2 Flow Rate 6.00 6.00 6.00 6.00 01/22/20 01/22/20 01/22/20 01/22/20 06:45 06:51 07:00 07:15 Pulse 86 86 93 Resp 13 14 14 B/P (MAP) 149/91 (110) 154/82 (106) 167/86 (113) Pulse Ox 89 84 90 90 O2 Delivery Nasal Cannula Nasal Cannula Nasal Cannula Nasal Cannula O2 Flow Rate 6.00 7.00 6.00 6.00 01/22/20 07:30 Pulse 105 Resp 14 B/P (MAP) 153/95 (114) Pulse Ox 94 O2 Delivery Non Rebreather O2 Flow Rate 9.00 Capillary Refill : Less Than 3 Seconds Blood Pressure Mean: 133 Progress Note #1: Time: 06:53 Progress Note Patient was seen and examined and the respiratory ER upon arrival. She was hypoxic with oxygen saturations at 85 percent on 6 L nasal cannula. She was still tight and wheezy with decreased air movement despite using MDI at home and receiving a DuoNeb treatment by EMS. She is now receiving an hour-long nebuliz er treatment. Septic workup is underway. She has received Solu-Medrol 125 mg IV. Progress Note #2: Time: 07:40 Progress Note Patient is nearly complete with an hour-long nebulizer treatment. Despite steroids and nebulizer therapies, she became hypoxic on 6 L nasal cannula with oxygen saturations in the mid 80s. Oxygen therapy was changed to the nebulizer mask and a flow of 10 L/m. Oxygen saturation improved to the lower 90s. X-ray revealed bilateral lower lobe infiltrates. This was discussed with Dr. Escobar. Labs were also reviewed. Given the results of workup and her clinical presentation, he requested she be screened for COVID. The COVID panel was sent after collection. Based on normal lactic acid, normal WBC, low CRP, and lack of fever, patient was not felt to be septic from bacterial infection. Her hypoxia is rather due to COPD exacerbation. Given her risk factors and recent discharge from the hospital 3 months ago, Dr. Escobar would like her started on broad- spectrum antibiotics including Zosyn and azithromycin which I agree with completely. Heart rate and blood pressure are stable at this time. We will therefore keep her dryer, especially with the mildly elevated BNP. Maintenance fluids were ordered but no boluses were given. Patient will be admitted to the ICU. Diagnostic Imaging Diagonstic Imaging: Xray Plain Films/CT/US/NM/MRI: chest Comments Chest x-ray viewed by me. Report not yet available. New bilateral lower lobe infiltrates when compared with prior Departure Communication (Admissions) Time/Spoke to Admitting Phy: 07:30 Dr. Diamond Time/Spoke to Consulting Phy: 07:10 Dr. Escobar Impression Primary Impression: Respiratory failure Qualified Codes: J96.01 - Acute respiratory failure with hypoxia Additional Impressions: COPD with exacerbation Bilateral pulmonary infiltrates on chest x-ray Disposition: ADMITTED INPATIENT Condition: Stable Admissions Decision to Admit Reason: Admit from ER (General) Decision to Admit/Date: Jan 22, 2020 Time/Decision to Admit Time: 06:15 Departure-Patient Inst. Referrals: BROOKE JOYNER DO (PCP/Family) Primary Care Physician HOUSTON ALMAZAN MD Jan 22, 2020 06:52
[2020-01-22 06:53] LABS: CALCIUM 9.3 MG/DL (8.5-10.1)
[2020-01-22 06:55] LABS: FIBRIN DEGRADATION PRODUCTS 0.62 UG/ML (0.00-0.49); INR 1.9 (0.8-1.4); PROTHROMBIN TIME PATIENT 22.7 SEC (12.2-14.7); TOTAL PROTEIN 6.3 GM/DL (6.4-8.2)
[2020-01-22 06:56] LABS: BILIRUBIN,TOTAL 0.3 MG/DL (0.1-1.0)
[2020-01-22 06:58] LABS: CREATININE SERUM 0.97 MG/DL (0.60-1.30)
[2020-01-22 07:15] LABS: ERYTHROCYTE SEDIMENTATION RATE 67 MM/HR (0-30)
[2020-01-22] MEDS ORDERED: PIPERACILLIN/TAZO 4.5 GM VIAL (ZOSYN) IV ONE (07:17)
[2020-01-22] MEDS ORDERED: PIPERACILLIN SODIUM/TAZOBACTAM 4.5 GM in NS (IVPB) 100 ML IV ONE (07:30)
--- OUTSIDE RECORDS SUMMARY | 2020-01-22 08:02 | XMS REPORT ---
Author Author [employer]. Organization [facility] Address [address] [address] Care Team Providers Care Auxiliary Equipment Tender Name Role Phone BROOKE JOYNER Unavailable BROOKE JOYNER DO Unavailable Unavailable HEIDI HARTLEY PROCESS ENGINEERING TECHNICIAN Unavailable Unavailable BROOKE JOYNER Unavailable Migration, Doctor Unavailable Unavailable Migration, Doctor Unavailable Unavailable PREMA SUERO, KRISTIE Stark Unavailable Unavailable HEIDI HARTLEY PROCESS ENGINEERING TECHNICIAN Unavailable Unavailable BROOKE JOYNER DO Unavailable Unavailable [...] KANE CKY Not Available sources.) Allergies AR (53581) DO DA (7 Unclassified No Known Drug 04-29-2019 - no information BROOKE [facility] Via sources.) Allergies AR [facility] (40704) Medications Current Medications Medication Ingredient Drug Dose [...] information 20 information ocusate name mg / NURSING HOME Sodium (no sennosides, Active 1 phone) residential 8.6 mg ORAL Twice A oral tablet [...] phone) 1 ORAL Twice A Day 20 [place] 1st, 2015 Problems Active Problems Problem Normalized Date of Normalized Normalized Provider Fac ility Classification Problem(s) Problem Problem Problem Sta tus Onset/Resoluti Duration on Other Abdominal Episodic Active BROOKE Not Availabl e gastrointestin distension AR , (17183) al disorders (gaseous) DO (21 sources.) Residual Acquired Episodic Active KRISTIE ANLIKER [facility] Via codes; absence of , MD [place] unclassified both cervix Hospital - (2 sources.) and uterus [place] (40594) Respiratory Acute and Chronic Active BROOKLYN DUNLAP [facility] V ia failure; chronic MD [facility] insufficiency; respiratory Hospital - arrest (adult) failure with [place] (20 sources.) hypoxia (08413) Phlebitis; Acute embolism Episodic Active [facility]N DUNLAP [facility] Via thrombophlebit and thrombosis MD [facility] is and of deep veins Hospital - thromboembolis of right upper [facility], operated by [facility] (10 extremity (69952) sources.) Translations: [ AC EMBLSM AND THOMBOS UNSP DEEP VEINS OF, Deep vein thrombosis (DVT)] Acute and Acute kidney Episodic Active [facility] DUNLAP [facility] Via unspecified failure with MD [facility] renal failure tubular Hospital - (20 sources.) necrosis [place] (79322) Respiratory Acute Episodic Active [facility]N DUNLAP [facility] Vi a failure; respiratory MD [facility] insufficiency; distress Hospital - arrest (adult) syndrome [place] (20 sources.) Translations: (74328) [ ACUTE RESPIRATORY FAILURE WITH HYPOXIA, Acute respiratory distress syndrome in adult, Acute respiratory failure] Cataract (7 Age-related Chronic Active KRISTIE ANLIKER [facility] Via sources.) nuclear , MD [facility] cataract, left Hospital - eye [place] Translations: (30404) [ AGE-RELATED NUCLEAR CATARACT, RIGHT EYE, Age-related cataract] Deficiency and Anemia, Episodic Active KONG [facility] Via other anemia unspecified Petra ARTEAGA (2 sources.) DO Hospital [facility] (03195) Coronary Atheroscleroti Chronic Active [facility]N DUNLAP [facility] Via atherosclerosi c heart MD Petra mosley and other disease of Hospital - heart disease [place] (20 sources.) coronary (77411) artery without angina pectoris Bacterial Bacterial Episodic Active no name [place] Vi a infection; infection due [place]ra unspecified to Pseudomonas Hospital site (2 (10825) sources.) Mood disorders Bipolar 02-17-2020 - Chronic Active BROOK[facility]N ROSARIO , [facility] Via (20 sources.) disorder, MD [facility] unspecified Hospital - [place] (57877) Other Body mass Chronic Active BROOKLYN DUNLAP , [facility] Via nutritional; index (BMI) MD [facility] endocrine; and 36.0-36.9, Hospital - metabolic adult [place] disorders (20 (03702) sources.) Phlebitis; Chronic Chronic Active [facility] DUNLAP [facility] Via thrombophlebit embolism and MD [facility] is and thrombosis of Hospital - thromboembolis unspecified [place] m (20 deep veins of (91338) sources.) right distal lower extremity Chronic Chronic 11-21-2019 - Chronic Active KRISTIE LENNYNICOLASA [facility] Via obstructive obstructive , MD [facility] pulmonary pulmonary Hospital - disease and disease, [place] bronchiectasis unspecified (55191) (25 sources.) Translations: [ CHRONIC OBSTRUCTIVE PULMONARY DISEASE W ] Other Compression Episodic Active no name [place] Via fractures (1 fracture of L2 [facility] source.) Hospital (49825) Other Constipation Episodic Active no name [place] Via gastrointestin Petra al disorders Hospital (1 source.) (75970) Other Constipation, 11-21-2019 - Episodic Active HEIDI NAEEM Not Available gastrointestin unspecified (07946) al disorders (36 sources.) Residual Contact with 11-21-2019 - Episodic Active GENA [facility] Via codes; and MD Petra ANGULO unclassified (suspected) Hospital - (6 sources.) exposure to [place] environmental (21032) tobacco smoke (acute) (chronic) Other nervous Critical Chronic Active [facility] DUNLAP [facility] Via system illness MD [facility] disorders (4 myopathy Hospital - sources.) [place] (71064) Residual Current Episodic Active no name [place] Via codes; drinker Petra unclassified Hospital (2 sources.) (62521) Diverticulosis Diverticulosis Chronic Active KONG [facility] Via and of large Petra ARTEAGA diverticulitis intestine DO Hospital - (3 sources.) without [place] perforation or (53056) abscess without bleeding Residual Do not Episodic Active [facility] DUNLAP [facility] Via codes; resuscitate MD [facility] unclassified Hospital - (4 sources.) [place] (12768) Diseases of Dry mouth, Episodic Active KONG [facility] Via mouth; unspecified Ptera ARTEAGA excluding DO Hospital - dental (2 [place] sources.) (44317) Other lower Dyspnea Episodic Active no name [place] V ia respiratory [place] disease (2 Hospital sources.) (90287) Immunizations Encounter for Episodic Active BROOK[facility]N FABI , [facility] Via and screening immunization MD [facility] for infectious Hospital - disease (4 [place] sources.) (78327) Essential Essential 11-21-2019 - Chronic Active KRISTIE ANLIKER [facility] Via hypertension (primary) , MD [facility] (24 sources.) hypertension Hospital - [place] (90458) Residual Family history Episodic Active KRISTIE ANLIKER [facility] Via codes; of diabetes , MD [facility] unclassified mellitus Hospital - (2 sources.) [place] (23104) Residual Family history Episodic Active KRISTIE ANLIKER [facility] Via codes; of glaucoma , MD [facility] unclassaletha Hospital - (2 sources.) [place] (21510) Residual Family history 11-21-2019 - Episodic Active KRISTIE ANL EMERITA [facility] Via codes; of ischemic , MD [facility] unclassified heart disease Hospital - (22 sources.) and other [place] diseases of (82466) the circulatory system Residual Family history 11-21-2019 - Episodic Active KRISTIE ANL EMERITA [facility] Via codes; of malignant , MD [facility] unclassified neoplasm of Hospital - (8 sources.) testis [place] (99962) Other liver Fatty (change Chronic Active HEIDI NAEEM [facility] V ia diseases (7 of) liver, not Petra sources.) elsewhere Hospital - classified [place] (06730) Esophageal Gastro-esophag 11-21-2019 - Chronic Active BROOKLYN FABI , [facility] Via disorders (20 eal reflux MD [facility] sources.) disease Hospital - without [place] esophagitis (09752) Gastrointestin Gastrointestin Episodic Active BR[facility]N FABI , [facility] Via al hemorrhage al hemorrhage, MD [facility] (20 sources.) unspecified Hospital - [place] (70595) Other liver Hepatomegaly, Episodic Active HEIDI NAEEM Not A vailable diseases (10 not elsewhere (87683) sources.) classified Fluid and Hyperkalemia Episodic Active BR[facility]N FABI , [facility] Via electrolyte MD [facility] disorders (20 Hospital - sources.) [place] (01341) Disorders of Hyperlipidemia Chronic Active ALI JASEN , [facility] Via lipid , unspecified MD YAHIR [facility] metabolism (3 Translations: Hospital - sources.) [ PURE [place] HYPERGLYCERIDE (24599) BRO, PURE HYPERGLYCERIDE BRO] Other Hypotension, Episodic Active BROOK[facility]N DUNLAP , [facility] Via circulatory unspecified MD [facility] disease (20 Hospital - sources.) [place] (81237) Other liver Liver disease, Chronic Active KONG [facility] V ia diseases (2 unspecified Petra ARTEAGA sources.) DO Hospital - [place] (49775) Other CHCF Episodic Active KRISTIE ANLIKER [facility] Via aftercare (5 (current) use , MD [place] sources.) of aspirin [facility] (30197) 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 11-21-2019 - Episodic Active GENA [facility] Via aftercare (6 (current) use MD Petra ANGULO sources.) of inhaled [facility] steroids [place] (62041) Other [facility] 11-21-2019 - Episodic Active GENA [facility] Via aftercare (6 (current) use MD Petra ANGULO sources.) of insulin [facility] (91999) Spondylosis; Low back pain 11-21-2019 - Episodic Active TIMOTH Y [facility] Via intervertebral MD Petra ANGULO disc Hospital - disorders; [place] other back (21868) problems (6 sources.) Other Morbid Chronic Active [facility] DUNLAP [facility] Via nutritional; (severe) MD [place] endocrine; and obesity with Hospital - metabolic alveolar [place] disorders (4 hypoventilatio (94588) sources.) n Acute Myocardial Chronic Active [facility] DUNLAP [facility] Vi a myocardial infarction MD [facility] infarction (20 type 2 Hospital - sources.) [place] () Substance-rela Nicotine Chronic Active KRISTIE ANLIKER [facility] Via vivian disorders dependence, , MD [facility] (25 sources.) cigarettes, Hospital - uncomplicated [place] (95207) Other Obesity, Chronic Active BROOK[facility]N DUNLAP , [facility] Via nutritional; unspecified MD [facility] endocrine; and Hospital - metabolic [place] disorders (20 (41502) sources.) Other Other abnormal Episodic Active BROOKE [facility] Via screening for and Petra JOYNER suspected inconclusive DO Hospital - conditions findings on [place] (not mental diagnostic (79533) disorders or imaging of infectious breast disease) (12 Translations: sources.) [ ENCNTR SCREEN MAMMOGRAM FOR MALIGNANT NE, ABNORMAL FINDING OF BLOOD CHEMISTRY, UNS] Malaise and Other fatigue Episodic Active KONG [facility] Vi a fatigue (2 DEFFENBAPetra FERRELL sources.) DO Hospital - [place] () Other injuries Other foreign Episodic Active [facility]N DUNLAP [facility] Via and conditions object in MD [facility] due to respiratory Hospital - external tract, part [place] causes (4 unspecified in (44845) sources.) causing asphyxiation, initial encounter Other Other long Episodic Active JESS CONLEY [facility] Via aftercare (7 term (current) MD YAHIR [facility] sources.) drug therapy [facility] (66254) Spondylosis; Other Chronic Active HEIDI NAEEM [facility] Via intervertebral spondylosis Petra disc with Hospital - disorders; radiculopathy, [place] other back thoracic () problems (3 region sources.) External cause Overexertion 11-21-2019 - Episodic Active CINDYOT HY [facility] Via codes: from prolonged MD Petra ANGULO Natural/enviro static or Hospital - nment (6 awkward [place] sources.) postures, (90881) initial encounter Abdominal pain Pelvic and Episodic Active HEIDI HARTLEY Not A vailable (30 sources.) perineal pain (73667) Translations: [ RIGHT UPPER QUADRANT PAIN, LEFT UPPER QUADRANT PAIN, RIGHT UPPER QUADRANT PAIN, LEFT UPPER QUADRANT PAIN] Screening and Personal 11-21-2019 - Episodic Active GENA [facility] Via history of history of MD Petra ANGULO mental health nicotine Hospital - and substance dependence [place] abuse codes (6 (04770) sources.) Pneumonia Pneumonia due Episodic Active HERON LINTON Via (except that to Pseudomonas MD [facility] caused by Translations: Hospital - tuberculosis [ Bilateral [place] or sexually pneumonia] (54101) transmitted disease) (6 sources.) Aspiration Pneumonitis Episodic Active HERON LINTON Via pneumonitis; due to MD [facility] food/vomitus inhalation of Hospital - (20 sources.) food and vomit [place] (73539) Diabetes Prediabetes Episodic Active HERON LINTON V ia mellitus MD [facility] without Hospital - complication [place] (20 sources.) (71948) Unclassified Prognosis bad no information Active no name [place] Via (2 sources.) [facility] (24919) Septicemia Sepsis, Episodic Active BROOKLYN FABI , [facility] Via (except in unspecified MD [facility] labor) (20 organism Hospital - sources.) [place] (97512) Shock (20 Severe sepsis Episodic Active BR[facility]N DUNLAP , [facility] Via sources.) with septic MD [facility] shock Hospital - Translations: [place] [ Septic (36205) shock] Other lower Shortness of Episodic Active [facility] respiratory breath AR [facility] disease (1 61455 Hospital source.) (07681) Cardiac Unspecified Chronic Active [facility] DUNLAP [facility] V ia dysrhythmias atrial flutter MD [facility] (20 sources.) Translations: Hospital - [ PAROXYSMAL [place] ATRIAL (41562) FIBRILLATION, Atrial fibrillation with rapid ventricular response] Genitourinary Unspecified Chronic Active BROOKLYN DUNLAP , [facility] Via symptoms and urinary MD [facility] ill-defined incontinence Hospital - conditions (20 [place] sources.) (63246) Complications Ventilator Episodic Active BR[facility]LYN DUNLAP , [facility] Via of surgical associated MD [facility] procedures or pneumonia Hospital - medical care Translations: [place] (6 sources.) [ (90572) Ventilator-acq uired pneumonia] Other Wedge 11-21-2019 - Episodic Active GENA [facility] V ia fractures (6 compression [place] , MD [facility] sources.) fracture of Hospital - second lumbar [place] vertebra, (38582) initial encounter for closed fracture Past or Other Problems Problem Normalized Date of Normalized Normalized Provider Fac ility Classification Problem(s) Problem Problem Problem Sta tus Onset/Resoluti Duration on Other Diarrhea, Episodic Completed KONG [facility] Via gastrointestin unspecified Petra ARTEAGA al disorders DO Hospital - (3 sources.) [place] (23542) Nausea and Nausea Episodic Completed HEIDI HARTLEY [facility] Via vomiting (4 Petra sources.) [facility] (47951) Procedures Procedure Normalized Procedure Procedure Result Performer Facility Date 09-20-2019 DRAINAGE OF LEFT MAIN no information no name (no ph one) [facility] Via [place] BRONCHUS, ENDO, DI [facility] (14324) 09-20-2019 DRAINAGE OF RIGHT MAIN no information no name (no p mellissa) [facility] Via [place] BRONCHUS, ENDO, D [facility] (67725) 10-08-2019 EXTIRPATION OF MATTER no information no name (no ph one) [facility] Via Petra FROM LEFT MAIN BRO [facility] (57864) 10-08-2019 EXTIRPATION OF MATTER no information no name (no ph one) [facility] Via [place] FROM RIGHT MAIN BR [facility] (72666) 09-19-2019 INSERTION OF no information no name (no phone) [facility] Via [place] ENDOTRACHEAL AIRWAY [facility] INTO TR (37426) 10-07-2019 RESPIRATORY no information no name (no phone) [facility] Via [place] VENTILATION, [facility] CONSECUTI (04058) 09-19-2019 RESPIRATORY no information no name (no phone) [facility] Via [place] VENTILATION, [address] [facility] CONSECUTI (57762) 09-19-2019 RESPIRATORY no information no name (no phone) [facility] Via [place] VENTILATION, [facility] THAN (74822) Immunizations Normalized Immunization Date Notes Care Provider Facili ty Immunization influenza, 10-24-2019 - no information no name [facility] Via Ch risti injectable,quadrival 10-24-2019 [facility] urg ent, preservative (41439) free, pediatric vaccine no information BROOKE JOYNER [place] V ia Translations: [ 63439 [facility] vaccine] (46888) Results Test Name Value Interpretation Reference Range Date Time Fa cility (Normalized) (Normalized) (Medline Reference) venous blood hemoglobin measurement (mass/volume) on 2018-09-07 Hemoglobin mass 15.7 g/dL (no code) 12.1 - 17.2 g/dL Asce nsion Via [facility] (Bld) [facility] (00926) serum or plasma urea nitrogen/creatin ine mass ratio on 2018-09-07 Urea 11 mg/mg (no code) 6 - 22 mg/mg [place] Vi a nitrogen/Creatin [facility] ine mass ratio (72367) serum or plasma urea nitrogen measurement (mass/volume) on 2018-09-07 Urea nitrogen 9 mg/dL (no code) 7 - 20 mg/dL [place] Via mass [facility] (93637) serum or plasma triglyceride measurement (mass/volume) on 2018-09-07 Triglyceride 267 mg/dL (H) 0 - 150 mg/dL [place] Via [facility] (94151) serum or plasma total bilirubin measurement (mass/volume) on 2018-09-07 Bilirubin mass 1.1 mg/dL (H) 0.1 - 1.2 mg/dL [facility] (80346) serum or plasma sodium measurement (moles/volume) on 2018-09-07 Sodium molar 140 mmol/L (no code) 135 - 145 mmol/L [facility] (76457) serum or plasma protein measurement (mass/volume) on 2018-09-07 Protein mass 7.3 g/dL (no code) 6.4 - 8.3 g/dL [place] Via [facility] (57381) serum or plasma potassium measurement (moles/volume) on 2018-09-07 Potassium molar 3.7 mmol/L (no code) 3.7 - 5.2 mmol/L [facility] Via [facility] (83806) serum or plasma glucose measurement (mass/volume) on 2018-09-07 Glucose mass 137 mg/dL (H) 60 - 125 mg/dL [place] Via [facility] (54415) serum or plasma creatinine measurement with calculation of estimated glomerular filtration rate on 2018-09-07 GFR/1.73 sq M no information (no code) [place] Via [facility] non-blacks MDRD (55735) vol rate/area (S/P/Bld) serum or plasma creatinine measurement (mass/volume) on 2018-09-07 Creatinine mass 0.80 mg/dL (no code) [place] Via [facility] (84211) serum or plasma cholesterol measurement (mass/volume) on 2018-09-07 Cholesterol mass 199 mg/dL (no code) 180 - 200 mg/dL [facility] Via [facility] (20986) serum or plasma cholesterol in vldl measurement (mass/volume) on 2018-09-07 Cholesterol in 53 mg/dL (H) [place] Via VLDL mass [facility] (25380) serum or plasma cholesterol in hdl measurement (mass/volume) on 2018-09-07 Cholesterol in 42 mg/dL (no code) [place] Via HDL mass [facility] (17411) serum or plasma chloride measurement (moles/volume) on 2018-09-07 Chloride molar 96 mmol/L (L) 95 - 106 mmol/L [facility] (76473) serum or plasma calcium measurement (mass/volume) on 2018-09-07 Calcium mass 9.9 mg/dL (no code) 8.5 - 10.2 mg/dL [facility] (37298) serum or plasma aspartate aminotransferase measurement (enzymatic activity/volume) on 2018-09-07 AST enzyme 68 U/L (H) 10 - 34 U/L [place] Via [facility] (26965) serum or plasma anion gap determination (moles/volume) on 2018-09-07 Anion gap 3 14 mmol/L (no code) 3 - 11 mmol/L [place] V ia molar [facility] (99920) serum or plasma alkaline phosphatase measurement (enzymatic activity/volume) on 2018-09-07 ALP enzyme 117 U/L (no code) 44 - 147 U/L [place] Vi a [facility] (87319) serum or plasma albumin measurement (mass/volume) on 2018-09-07 Albumin mass 4.4 g/dL (no code) 3.4 - 5.4 g/dL [place] Via [facility] (50052) serum or plasma alanine aminotransferase measurement (enzymatic activity/volume) on 2018-09-07 ALT enzyme 55 U/L (no code) 4 - 40 U/L [place] Via [facility] (68961) prothrombin time (pt) in platelet poor plasma by coagulation assay on 2018-09-07 Prothrombin time 12.6 s (no code) 9.4 - 12.5 s [facility] (PT) Coag time [facility] (PPP) (96864) inr in platelet poor plasma or blood by coagulation assay on 2018-09-07 INR Coag RelTime 0.9 (no code) [place] Via (Platelet poor [facility] plasma or blood) (89510) cholesterol in ldl [mass/volume] in serum or plasma by direct assay on 2018-09-07 Cholesterol in 123 mg/dL (no code) 0 - 100 mg/dL [facility] LDL mass [facility] (90027) carbon dioxide on 2018-09-07 CO2 molar conc 30 mmol/L (no code) 23 - 29 mmol/L [facility] (47171) calcium measurement corrected for albumin on 2018-09-07 Albumin mass 9.6 g/dL (no code) 3.4 - 5.4 g/dL [place] Via [facility] (78552) blood leukocytes automated count (number/volume) on 2018-09-07 WBC Auto #/vol 8.2 10*3/uL (no code) 3.5 - 10.5 [place] V ia (Bld) 10*3/uL [facility] (86927) blood hematocrit (volume fraction) on 2018-09-07 Hematocrit Auto 47 % (no code) 36.1 - 50.3 % [facility] Volume Fraction [facility] (d) (13199) blood erythrocytes automated count (number/volume) on 2018-09-07 RBC Auto #/vol 4.76 10*6/uL (no code) 4.2 - 6.1 [place] Via (Bld) 10*6/uL [facility] (24353) automated erythrocyte mean corpuscular volume on 2018-09-07 MCV Auto Entitic 98 fL (no code) 80 - 100 fL [facility] volume (RBC) [facility] (81209) automated erythrocyte mean corpuscular hemoglobin concentration measurement (mass/volume) on 2018-09-07 MCHC Auto mass 34 g/dL (no code) 32 - 36 g/dL [place] Via conc (RBC) [facility] (80245) automated erythrocyte mean corpuscular hemoglobin (mass per erythrocyte) on 2018-09-07 MCH Auto Entitic 33 pg (no code) 27 - 31 pg [place] Via mass (RBC) [facility] (54218) automated erythrocyte distribution width ratio on 2018-09-07 Erythrocyte 13.5 % (no code) 11.6 - 14.6 % [place] V ia distribution [facility] width Auto Ratio (36587) (RBC) automated blood platelet mean volume measurement on 2018-09-07 Platelet mean 9.4 fL (no code) 7.2 - 11.7 fL [place] Via volume Auto [facility] Entitic volume (36444) (Bld) automated blood platelet count (count/volume) on 2018-09-07 Platelets Auto 260 10*3/uL (no code) 150 - 450 [place] V ia #/vol (Bld) 10*3/uL [facility] (31146) activated partial thromboplastin time (aptt) in platelet poor plasma bycoagulation assay on 2018-09-07 aPTT Coag time 28 s (no code) 25 - 35 s [place] V ia (Bld) [facility] (01719) Vital Signs The data below is from unstructured sources Vital Response Date/Time Temperature (Fahrenheit) 98.2 degree s F (97.6 - 99.5) 07/30/2015 4:30pm Temperature (Calculated Celsius) 36. 97020 degrees C (36.4 - 37.5) 07/30/2015 4:30pm [...] inches 07/30/2015 4:30pm Height (Calculated Centimeters) 165. 237606 cm 07/30/2015 4:30pm Weight (Pounds) 192 pounds 07/30/2015 4:30pm Weight (Calculated Kilograms) 87.089 736 kilograms 07/30/2015 4:30pm Calculated BMI 31.95 4:30pm Vital Response Date/Time Temperature (Fahrenheit) 97.0 degree s F (97.6 - 99.5) 06/05/2015 11:45am Temperature (Calculated Celsius) 36. 60418 degrees C (36.4 - 37.5) 06/05/2015 11:45am [...] inches 06/05/2015 8:45am Height (Calculated Centimeters) 165. 712358 cm 06/05/2015 8:45am Weight (Pounds) 184 pounds 06/05/2015 8:45am Weight (Ounces) 2.0 oz 0 06/05/2015 8:45am Weight (Calculated Grams) 49329.997 gm 06/05/2015 8:45am Weight (Calculated Kilograms) 83.460 997 kilograms 06/05/2015 8:45am Calculated BMI 30.62 10/2014 8:45am Vital Response Date/Time Temperature (Fahrenheit) 97.8 degree s F (97.6 - 99.5) 09/07/2018 6:15pm Temperature (Calculated Celsius) 36. 82428 degrees C (36.4 - 37.5) 09/07/2018 3:14pm [...] inches 09/07/2018 1:12pm Height (Calculated Centimeters) 165. 441835 cm 09/07/2018 1:12pm Weight (Pounds) 218 pounds 09/07/2018 1:12pm Weight (Ounces) 0.0 oz 1 11/08/2017 1:12pm Weight (Calculated Grams) 77235.14 gm 09/07/2018 1:12pm Weight (Calculated Kilograms) 98.883 138 kilograms 09/07/2018 1:12pm Calculated BMI 36.3 01/2018 1:12pm Capillary Refill Capillary Refill Less Than 3 Seconds 09/07/2018 6:00pm No vital signs result information available. Interventions No Information Plan of Treatment Normalized Care Care Detail Care Activity Date Care Provider F acility Activity Bacteria identified no information no information no name [place] Via Cx Nom (Sput) [facility] (40197) Bacteria identified no information no information no name [place] Via Cx Nom (U) [facility] (92080) Microscopic no information no information no name [facility] stain Nom (Sput) ([id number]) Microscopic no information no information no name [facility] stain Nom (Unsp ([id number]) spec) Patient Education no information no information no name [facility] ([id number]) Patient referral no information no information no name [facility] ([id number]) Goals Patient Goal Desired Goal no information no information Social History Normalized Code Original Code Date Value Tobacco smoking status Tobacco smoking status no information Smokes tobacco daily [facility] (finding) no information no information [...] Tobacco smoking status no information Ex-smoker (finding) [facility] no information no information 11-15-2019 [...] [facility] patient visit phone) GENA Cerda [facility] KEV SUERO (no phone) (no phone) GENA [...] MD VC [facility] procedure (no phone) [facility] (no phone) 09-19-2019 Patient encounter no information [...] Equipment Information available Payers Normalized Payer Value [facility] [id number] ([id number]) [facility] no information ([id number]) Evaluation note Note Type Note Facility Evaluation No Assessments Information Available A scension note [facility] ([id number]) Advance Directives Directive Response Recor ded Date/Time Advance Directives No 4:30pm Health Care Power of Glass Driller No 07/30/15 4:30pm Organ Donor No 07/30/15 4:30pm Resuscitation Status Full Code 07/30/15 4:30pm Directive Response Recor ded Date/Time Advance Directives No 8:45am Health Care Power of Glass Driller No 06/05/15 8:45am Organ Donor No 06/05/15 8:45am Resuscitation Status Full Code 06/05/15 8:45am Directive Response Recor ded Date/Time Advance Directives No 1:02pm Health Care Power of Glass Driller No 09/07/18 1:02pm Organ Donor No 09/07/18 1:02pm Resuscitation Status Full Code 09/07/18 1:02pm Advance Directive Response Recorded Date/Time Advance Directives No Zamoraber 2018 3:45pm Health Care Power of Glass Driller No September 19, 2019 3:45pm Organ Donor No September 19, 2019 3:45pm Resuscitation Status Full Code September 19, 2019 3:45pm Resuscitation Status Do Not Resuscitate October 24, 2019 10:36am Advance Directive Response Recorded Date/Time Advance Directives No Tracie mae 2019 5:49pm Health Care Power of Glass Driller No November 15, 2019 5:49pm Organ Donor No November 15, 2019 5:49pm Resuscitation Status Full Code November 15, 2019 5:49pm Discharge Instructions No hospital discharge instructions.No hospital discharge instructions.No hospital discharge instructions.No hospital discharge instruction information available. Additional Source Comments This clinical document has been generated using Moz software that has been certified by the Office of the National Coordinator for Health Information Technology (ONC 15.99.04.3023.Diam.31.00.0.220297) and the National Committee for Physical Education Professor (NCQA, as an eMeasure certified technology). FOR [...] BASED ON T HE PRIMARY CLINICAL RECORDS. [employer]. provides no warranty or guara ntee of the accuracy or completeness of information in this document.The followi ng information is based on time limited clinical information UNRECOGNIZED CONTENT PROVIDED BELOW FOR UNRECOGNIZED SECTION REASON FOR VISIT [id number]
--- NOTE | 2020-01-22 08:23 | Diagnostic Imaging Report ---
INDICATION: Shortness of air. Time of exam 6:54 AM Correlation is made with prior chest from 10/23/2019. Heart size is stable. There are infiltrates or atelectasis in both bases. Interstitial markings are prominent throughout both lungs. No effusion or pneumothorax is seen. IMPRESSION: Bilateral interstitial infiltrates as well as bibasilar infiltrates or atelectasis. Dictated by: Dictated on workstation # [id number]
[2020-01-22] MEDS ORDERED: LACTATED RINGERS 1,000 ML IV SCH (08:30)
[2020-01-22] MEDS: AZITHROMYCIN 500 MG/NS 250 ML IVPB IV SCH ×2 (10:18)
[2020-01-22] MEDS ORDERED: ONDANSETRON 4 MG (ZOFRAN) ORAL DISSOLVE TAB PO PRN (11:15)
[2020-01-22] MEDS ORDERED: MELATONIN 3 MG TABLET PO PRN (11:15)
[2020-01-22] MEDS ORDERED: CALCIUM CARBONATE 500 MG (TUMS) TAB.CHEW PO PRN (11:15)
[2020-01-22] MEDS ORDERED: polyethylene glycoL POWDER 17 GM (MIRALAX) PACK PO PRN (11:15)
[2020-01-22] MEDS ORDERED: ONDANSETRON 4 MG/2 ML (SDV) Z0FRAN IV PRN (11:15)
[2020-01-22] MEDS ORDERED: diphenhydrAMINE 25 MG TAB (BENADRYL) PO PRN (11:15)
[2020-01-22 11:21] LABS: ABG BASE EXCESS 2.1 MMOL/L (-2.5-2.5); ABG OXYGEN SATURATION 93 % (94-100); ABG PCO2 53 MMHG (35-45); ABG PO2 66 MMHG (79-93)
[2020-01-22 11:23] LABS: ABG PH 7.33 (7.37-7.43); ALLENS TEST YES-POS; INSPIRED O2 6; PATIENT TEMP 36.8; VENTILATOR NO
--- NOTE | 2020-01-22 11:29 | History & Physical-Hospitalist ---
History of Present Illness HPI/Chief Complaint Helene Hicks is a 54-year-old female with past medical history of hypertension, COPD, atrial fibrillation on Xarelto, DVT, who presented with shortness of breath. She had a prolonged hospitalization in September requiring intubation for acute respiratory distress syndrome. She was discharged to a rehabilitation facility and has since gone home. Since that time she says she has been doing well and not requiring any oxygen. Yesterday she was with her daughters and decided to try smoking cigarettes again. After that she became very short of breath. There were also having a cookout and she had a lot salty foods. She reports having a headache. She denies any neck stiffness. She denies having any cough or sputum production. She denies any fevers or chills. She denies any chest pain. She denies any abdominal pain, nausea, vomiting, or diarrhea. She has not had any sick contacts. She has had no recent travel. She denies any alcohol use. She denies any illicit drug use. Source: patient Exam Limitations: no limitations Date Seen 01/22/20 Time Seen by a Provider: 10:15 Attending Physician Sapphire Diamond MD PCP García Hicks DO Referring Physician Date of Admission Jan 22, 2020 at 07:30 Home Medications & Allergies Home Medications Reviewed patient Home Medication Reconciliation performed by pharmacy medication reconciliations costume technician and/or nursing. Patients Allergies have been reviewed. Allergies Allergies Coded Allergies No Known Drug Allergies (Unverified04/29/19) Past Yttqzyg-Sehirm-Wjrnvv Hx Past Med/Social Hx: Reviewed Nursing Past Med/Soc Hx Patient Social History Alcohol Use: Denies Use Number of Drinks Today: GG Alcohol Beverage of Choice: Whiskey Recreational Drug Use: No Smoking Status: Current Someday Smoker Type Used: Cigarettes 2nd Hand Smoke Exposure: Yes Recent Foreign Travel: No Contact w/other who traveled: No Recent Hopitalizations: No Recent Infectious Disease Expo: No Immunizations Up To Date Tetanus Booster (TDap): Unknown Seasonal Allergies Seasonal Allergies: Yes Past Medical History Surgeries: Hysterectomy Cardiac: Atrial Fibrillation, Hypertension Neurological: Paralysis (Partial paraplegia after intubation September 2019 with right arm weakness and left foot drop) : No 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: Yes Sexually Transmitted Disease: No HIV/AIDS: No Female 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 Disorders: Denies Menopausal Genitourinary: UTI-Chronic Gastrointestinal: Gastroesophageal Reflux Endocrine: Diabetes, Insulin dep Psychosocial: Bipolar, Depression History of Blood Disorders: No Adverse Reaction to Blood Andre: No Family History Reviewed Nursing Family Hx Cerebrovascular accident (CVA) 19 FATHER, Onset:60 years & older FH: testicular cancer G8 BROTHER, Onset:30's - 40 Hypertension 19 FATHER, Onset:Unknown 19 MOTHER, Onset:Unknown G8 BROTHER, Onset:Unknown G8 BROTHER, Onset:Unknown Myocardial infarction 19 FATHER, Onset:40's - 50 Heart Disease, Hypertension Review of Systems Constitutional: no symptoms reported EENTM: no symptoms reported Respiratory: short of breath Cardiovascular: no symptoms reported Gastrointestinal: no symptoms reported Genitourinary: no symptoms reported Musculoskeletal: no symptoms reported Skin: no symptoms reported Psychiatric/Neurological: No Symptoms Reported Physical Exam Physical Exam Vital Signs Vital Signs - First Documented Capillary Refill : Less Than 3 Seconds Height, Weight, BMI Height: 5'5.00" Weight: 218lbs. 0.0oz. 98.398206xq; 35.00 BMI Method:Stated General Appearance: No Apparent Distress, Chronically ill, Obese HEENT: PERRL/EOMI, Pharynx Normal Neck: Normal Inspection, Supple Respiratory: Lungs Clear, Normal Breath Sounds, No Respiratory Distress, Other (Wearing 6 L nasal cannula) Cardiovascular: Regular Rate, Rhythm, No Edema, No Murmur Gastrointestinal: Normal Bowel Sounds, Non Tender, Soft Extremity: Normal Inspection, Non Tender, No Pedal Edema Neurologic/Psychiatric: Alert, Oriented x3, No Motor/Sensory Deficits, Normal Mood/Affect Skin: Normal Color, Warm/Dry Results Results/Procedures Labs Laboratory Tests 01/22/20 06:20 Patient resulted labs reviewed. Imaging: Reviewed Imaging Report Assessment/Plan Admission Diagnosis Acute respiratory failure with hypoxemia and hypercapnia Admission Status: Inpatient Order (span 2 midnights) Reason for Inpatient Admission: Respiratory failure requiring further evaluation and treatment Assessment and Plan Acute respiratory failure with hypoxemia and hypercapnia COPD exacerbation Pneumonia Possible CHF exacerbation Not sepsis Not using any oxygen at home Requiring 6 L at this time ABG with pH 7.33 and CO2 54 BiPAP for acute hypercapnia Solu-Medrol ordered Chest x-ray with bibasilar infiltrates and diffuse interstitial markings Procalcitonin normal BNP elevated at 900 Give one dose of Lasix and reassess Started on Zosyn and azithromycin for pneumonia Flu negative Respiratory viral panel pending COVID pending UA and UDS pending Check troponin Obtain echocardiogram Consult cardiology Consult pulmonology Consult TeleICU Essential hypertension Paroxysmal atrial fibrillation Continue metoprolol and Xarelto DVT prophylaxis: Already receiving therapeutic anticoagulation Diagnosis/Problems Diagnosis/Problems (1) Acute respiratory failure with hypoxia and hypercapnia Status: Acute (2) Pneumonia Status: Acute (3) CHF (congestive heart failure) Status: Acute Qualifiers: Heart failure type: unspecified Heart failure chronicity: unspecified Qualified Codes: I50.9 - Heart failure, unspecified (4) HTN (hypertension) Status: Chronic Qualifiers: Hypertension type: essential hypertension Qualified Codes: I10 - Essential (primary) hypertension (5) Paroxysmal A-fib Status: Chronic (6) COPD with exacerbation Status: Acute (7) DVT (deep venous thrombosis) Status: Chronic (8) Tobacco abuse Status: Chronic SAPPHIRE DIAMOND MD Jan 22, 2020 11:29
[2020-01-22] MEDS ORDERED: FUROSEMIDE 40 MG/4 ML INJ (LASIX) IVP ONE (11:30)
[2020-01-22] MEDS ORDERED: meTOprolol TARTRATE 50 MG (LOPRESSOR) TAB PO ONE (11:45)
[2020-01-22] MEDS: SENNOSIDES 8.6 MG (SENOKOT) TAB PO SCH ×2 (12:45→21:06)
[2020-01-22] MEDS: DOCUSATE SODIUM 100 MG (COLACE) CAP PO SCH ×2 (12:45→21:06)
[2020-01-22] MEDS: PIPERACILLIN/TAZO 4.5 GM/NS 100 ML IV SCH ×4 (13:00→21:53)
[2020-01-22] MEDS: methylPREDNISolone 40 MG/ML (Solu-MEDROL) VIAL IV SCH ×3 (13:01→23:16)
[2020-01-22] MEDS: RT-ALBUTEROL/IPRATROPIUM 3 ML (DUONEB) VIAL INH SCH (14:12)
[2020-01-22 14:45] LABS: BILIRUBIN,URINE NEGATIVE (NEGATIVE); CLARITY,URINE CLEAR; COLOR,URINE YELLOW; GLUCOSE, URINE (UA) NEGATIVE (NEGATIVE); KETONES,URINE NEGATIVE (NEGATIVE); LEUKOCYTE ESTERASE ,URINE NEGATIVE (NEGATIVE); NITRITE,URINE POSITIVE (NEGATIVE); PROTEIN,URINE NEGATIVE (NEGATIVE)
[2020-01-22 14:57] LABS: AMPHETAMINE SCREEN, URINE NEGATIVE (NEGATIVE); BACTERIA,URINE MODERATE /HPF; BARBITURATE SCREEN URINE NEGATIVE (NEGATIVE); BENZODIAZEPINES SCREEN URINE POSITIVE (NEGATIVE); CANNABINOID SCREEN, URINE NEGATIVE (NEGATIVE); COCAINE SCREEN URINE NEGATIVE (NEGATIVE); METHADONE STAT NEGATIVE (NEGATIVE); METHAMPHETAMINE SCREEN URINE S NEGATIVE (NEGATIVE); OPIATE SCREEN URINE NEGATIVE (NEGATIVE); OXYCODONE STAT NEGATIVE (NEGATIVE); PROPOXYPHENE STAT NEGATIVE (NEGATIVE); TRICYCLIC ANTIDEPRESSANTS SCRE NEGATIVE (NEGATIVE); WBC,URINE 0-2 /HPF
[2020-01-22 14:58] LABS: AMORPHOUS SEDIMENT,UR MOD AMOR URATES /LPF; URIC ACID CRYSTALS,URINE MODERATE /LPF
[2020-01-22] MEDS: inSUlin ASPART (NovoLOG) 1 UNIT/0.01 ML (CHARGE PER UNIT) SC SCH ×2 (16:56→21:06)
[2020-01-22] MEDS: RIVAROXABAN 20 MG TABLET (XARELTO) PO SCH (16:56)
[2020-01-22] MEDS ORDERED: RT-ALBUTEROL/IPRATROPIUM 3 ML (DUONEB) VIAL IH SCH (19:00)
[2020-01-22] MEDS: meTOprolol TARTRATE 50 MG (LOPRESSOR) TAB PO SCH (21:04)
[2020-01-23] VITALS (15 sets, daily range): BP systolic 129–165; BP diastolic 71–81
--- NOTE | 2020-01-23 00:20 | NUR ---
AGRICULTURAL LOAN OFFICER, HARITHA, VERIFIED WITH LAB THAT PATIENT'S COVID RESULTS WERE NEGATIVE. PATIENT REMOVED FROM DROPLET AND CONTACT PRECAUTIONS
[2020-01-23] MEDS: RT-ALBUTEROL/IPRATROPIUM 3 ML (DUONEB) VIAL INH SCH ×7 (02:25→21:05)
[2020-01-23 03:37] LABS: BASOPHILS % (AUTO) 0 % (0-10); EOSINOPHILS % (AUTO) 0 % (0-10); HEMATOCRIT 28 % (35-52); HEMOGLOBIN 8.7 G/DL (11.5-16.0); LYMPHOCYTES # (AUTO) 0.9 X 10^3 (1.0-4.0); LYMPHOCYTES % (AUTO) 16 % (12-44); MEAN CORPUSCULAR HEMOGLOBIN 31 PG (25-34); MEAN CORPUSCULAR HGB CONC 31 G/DL (32-36); MEAN CORPUSCULAR VOLUME 99 FL (80-99); MEAN PLATELET VOLUME 9.6 FL (7.4-10.4); MONOCYTES # (AUTO) 0.1 X 10^3 (0.0-1.0); MONOCYTES % (AUTO) 2 % (0-12); NEUTROPHILS # (AUTO) 4.5 X 10^3 (1.8-7.8); NEUTROPHILS % (AUTO) 83 % (42-75); PLATELET COUNT 239 10^3/uL (130-400); WHITE BLOOD COUNT 5.5 10^3/uL (4.3-11.0)
[2020-01-23 04:02] LABS: BUN/CREATININE RATIO 15; CARBON DIOXIDE 29 MMOL/L (21-32); CHLORIDE 99 MMOL/L (98-107); CREATININE SERUM 0.89 MG/DL (0.60-1.30); GFR ESTIMATED > 60; GLUCOSE 207 MG/DL (70-105); MAGNESIUM 1.8 MG/DL (1.6-2.4); PHOSPHORUS 3.7 MG/DL (2.3-4.7); POTASSIUM 3.8 MMOL/L (3.6-5.0); SODIUM 139 MMOL/L (135-145)
[2020-01-23] MEDS: PIPERACILLIN/TAZO 4.5 GM/NS 100 ML IV SCH ×6 (05:05→21:25)
[2020-01-23] MEDS: inSUlin ASPART (NovoLOG) 1 UNIT/0.01 ML (CHARGE PER UNIT) SC SCH ×4 (05:06→20:45)
[2020-01-23] MEDS: methylPREDNISolone 40 MG/ML (Solu-MEDROL) VIAL IV SCH (05:06)
[2020-01-23] MEDS ORDERED: MAGNESIUM 1 GM/100 ML IVPB 100 ML IV SCH (06:00)
[2020-01-23] MEDS ORDERED: POTASSIUM CL 10MEQ/50ML IVPB 50 ML IV SCH (06:00)
[2020-01-23] MEDS ORDERED: KCL 20 MEQ TAB (K-DUR) PO SCH (06:00)
--- NOTE | 2020-01-23 06:32 | Pulmonary Consultation ---
History of Present Illness History of Present Illness Date Seen by Provider: Jan 23, 2020 Time Seen by Provider: 06:28 Date of Admission Allergies and Home Medications Allergies Coded Allergies: No Known Drug Allergies (Unverified , 04/29/19) Home Medications Albuterol Sulfate 18 Gm Hfa.aer.ad, 2 PUFF INH Q4H PRN for SHORTNESS OF BREATH, (Reported) Amiodarone HCl 200 Mg Tablet, 200 MG PO DAILY Prescribed by: ACE DIAMOND on 10/24/19 1035 Atorvastatin Calcium 40 Mg Tablet, 40 MG PO HS, (Reported) Buprenorphine HCl/Naloxone HCl 1 Each Film, 1 FILM SL TID, (Reported) Famotidine 20 Mg Tablet, 20 MG PO BID Prescribed by: ACE DIAMOND on 10/24/19 1035 Fluoxetine HCl 10 Mg Tablet, 10 MG PO DAILY, (Reported) LAST FILLED #30 07-18-19 Fluticasone/Salmeterol 1 Each Blst.w.dev, 1 PUFF IH BID, (Reported) LAST FILLED 07-30-19 #60 Furosemide 40 Mg Tablet, 40 MG PO DAILY, (Reported) LAST FILLED #30 04-29-19 Insulin Determir 1,000 Units/10 Ml Soln, 5 UNIT SQ HS Prescribed by: ACE DIAMOND on 10/24/19 1035 Ipratropium/Albuterol Sulfate 3 Ml Ampul.neb, 3 ML NEB QID PRN for SHORTNESS OF BREATH, (Reported) Levetiracetam 500 Mg Tablet, 500 MG PO BID Prescribed by: ACE DIAMOND on 10/24/19 1035 Lisinopril 10 Mg Tablet, 20 MG PO DAILY Prescribed by: ACE DIAMOND on 10/24/19 1035 Metoprolol Tartrate 50 Mg Tablet, 100 MG PO BID Prescribed by: ACE DIAMOND on 10/24/19 1035 Ondansetron 4 Mg Tab.rapdis, 4 MG PO Q4H PRN for NAUSEA/VOMITING-1ST LINE, (Reported) Potassium Chloride 20 Meq Tablet.er, 20 MEQ PO DAILY, (Reported) Prednisone 10 Mg Tab.ds.pk, 10 MG PO DAILY Take 6 tabs(60mg)daily,decrease by 1 tab(10mg)every other day. Prescribed by: ACE DIAMOND on 10/24/19 1035 Rivaroxaban 20 Mg Tablet, 20 MG PO DAILY@1700 Prescribed by: ACE DIAMOND on 10/24/19 1035 Sennosides/Docusate Sodium 1 Each Tablet, 1 EA PO BID PRN for CONSTIPATION-1ST LINE Prescribed by: ACE DIAMOND on 10/24/19 1035 Tiotropium Alexander 4 Gm Mist.inhal, 1-2 PUFF INH DAILY, (Reported) Past Tbkegik-Trrbuu-Wzimya Hx Past Med/Social Hx: Reviewed Nursing Past Med/Soc Hx Patient Social History Alcohol Use: Denies Use Number of Drinks Today: GG Alcohol Beverage of Choice: Whiskey Recreational Drug Use: No Smoking Status: Current Someday Smoker Type Used: Cigarettes 2nd Hand Smoke Exposure: Yes Recent Foreign Travel: No Contact w/Someone Who Travel: No Recent Infectious Disease Expo: No Recent Hopitalizations: No Physical Abuse: No Sexual Abuse: No Mistreated: No Fear: No Immunizations Up To Date Tetanus Booster (TDap): Unknown Seasonal Allergies Seasonal Allergies: Yes Past Medical History Surgeries: Yes Hysterectomy Respiratory: Yes Pneumonia, Chronic Bronchitis, COPD Cardiac: Yes Atrial Fibrillation, Hypertension Neurological: Yes Paralysis (Partial paraplegia after intubation September 2019 with right arm weakness and left foot drop) : No 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 Disorders: Yes Female 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 Disorders: Denies 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 Sexually Transmitted Disease: No HIV/AIDS: No Genitourinary: Yes UTI-Chronic Gastrointestinal: Yes Gastroesophageal Reflux Musculoskeletal: Yes Endocrine: Yes Diabetes, Insulin dep HEENT: No Cancer: No Psychosocial: Yes Bipolar, Depression Integumentary: No Blood Disorders: No Adverse Reaction/Blood Tranf: No Family Medical History Reviewed Nursing Family Hx Cerebrovascular accident (CVA) 19 FATHER, Onset:60 years & older FH: testicular cancer G8 BROTHER, Onset:30's - 40 Hypertension 19 FATHER, Onset:Unknown 19 MOTHER, Onset:Unknown G8 BROTHER, Onset:Unknown G8 BROTHER, Onset:Unknown Myocardial infarction 19 FATHER, Onset:40's - 50 Heart Disease, Hypertension Sepsis Event Evaluation Height, Weight, BMI Height: 5'5.00" Weight: 218lbs. 0.0oz. 98.689522oz; 35.00 BMI Method:Stated Exam Exam Vital Signs Date Time Temp Pulse Resp B/P (MAP) Pulse Ox O2 Delivery O2 Flow Rate FiO2 01/23/20 06:00 78 14 142/73 (96) 95 Nasal Cannula 1.00 01/23/20 05:00 70 9 139/76 (97) 96 Nasal Cannula 1.00 01/23/20 04:00 37.1 01/23/20 04:00 84 11 133/74 (93) 95 Nasal Cannula 1.00 01/23/20 04:00 96 Nasal Cannula 1.00 01/23/20 03:00 85 10 134/71 (92) 91 Nasal Cannula 1.00 01/23/20 02:25 96 Nasal Cannula 1.00 01/23/20 02:00 73 12 138/81 (100) 95 Nasal Cannula 1.00 01/23/20 01:00 75 12 135/74 (94) 95 Nasal Cannula 1.00 01/23/20 01:00 78 01/23/20 00:00 94 Nasal Cannula 1.00 01/23/20 00:00 79 24 129/74 (92) 94 Nasal Cannula 1.00 01/23/20 00:00 36.7 01/22/20 23:00 86 18 130/72 (91) 96 Nasal Cannula 1.00 01/22/20 22:59 Nasal Cannula 1.00 01/22/20 22:53 98 Nasal Cannula 1.00 01/22/20 22:00 86 12 128/72 (90) 97 Nasal Cannula 2.00 01/22/20 21:00 87 13 133/70 (91) 99 Nasal Cannula 2.00 01/22/20 20:00 89 14 139/66 (90) 99 Nasal Cannula 2.00 01/22/20 20:00 95 Nasal Cannula 2.00 01/22/20 19:00 90 01/22/20 19:00 90 9 126/63 (84) 99 Nasal Cannula 2.00 01/22/20 18:33 99 High Flow N/C 3.00 01/22/20 18:00 96 11 136/71 (92) 99 OxyMask 6.00 01/22/20 17:00 91 10 130/84 (99) 93 OxyMask 6.00 01/22/20 16:24 NIV Bilevel 01/22/20 16:00 36.8 01/22/20 16:00 92 11 106/61 (76) 92 OxyMask 6.00 01/22/20 15:00 94 12 109/60 (76) 91 OxyMask 6.00 01/22/20 14:12 93 90 35.00 01/22/20 14:00 92 13 117/61 (79) 91 OxyMask 6.00 01/22/20 13:00 96 12 119/65 (83) 93 OxyMask 6.00 01/22/20 12:22 84 01/22/20 12:19 92 93 35.00 01/22/20 12:00 36.6 01/22/20 12:00 OxyMask 01/22/20 12:00 93 12 121/62 (81) 92 OxyMask 6.00 01/22/20 11:52 36.9 101 91 01/22/20 11:00 101 22 127/91 (103) 91 OxyMask 6.00 01/22/20 10:13 OxyMask 6.00 01/22/20 10:00 95 10 126/68 (87) 89 Nasal Cannula 6.00 01/22/20 09:00 98 8 149/76 (100) 91 Nasal Cannula 6.00 01/22/20 09:00 OxyMask 01/22/20 08:50 36.7 01/22/20 08:45 104 154/85 (108) 96 Nasal Cannula 6.00 01/22/20 08:45 104 01/22/20 08:30 36.9 100 18 142/89 95 Non Rebreather 9.00 01/22/20 08:00 100 16 148/81 (103) 95 Non Rebreather 9.00 01/22/20 07:45 101 14 141/81 (101) 94 Non Rebreather 9.00 01/22/20 07:30 105 14 153/95 (114) 94 Non Rebreather 9.00 01/22/20 07:15 93 14 167/86 (113) 90 Nasal Cannula 6.00 01/22/20 07:00 86 14 154/82 (106) 90 Nasal Cannula 6.00 01/22/20 06:51 84 Nasal Cannula 7.00 01/22/20 06:45 86 13 149/91 (110) 89 Nasal Cannula 6.00 01/22/20 06:30 91 18 166/87 (113) 90 Nasal Cannula 6.00 I & O 01/23/20 07:00 Intake Total 1540 ml Output Total 3450 ml Balance -1910 ml Height & Weight Height: 5'5.00" Weight: 218lbs. 0.0oz. 98.169651po; 35.00 BMI Method:Stated General Appearance: No Apparent Distress, Chronically ill, Obese HEENT: PERRL/EOMI, Pharynx Normal Neck: Normal Inspection, Supple Respiratory: Lungs Clear, Normal Breath Sounds, No Respiratory Distress, Other (Wearing 6 L nasal cannula) Cardiovascular: Regular Rate, Rhythm, No Edema, No Murmur Capillary Refill: Less Than 3 Seconds Gastrointestinal: non tender, soft Extremity: Normal Inspection, Non Tender, No Pedal Edema Neurologic/Psychiatric: Alert, Oriented x3, No Motor/Sensory Deficits, Normal Mood/Affect Skin: Normal Color, Warm/Dry Results Lab Laboratory Tests 01/22/20 06:20 01/23/20 03:12 Assessment/Plan Assessment/Plan Acute respiratory failure - improved -BiPAP PRN CHF AE -Improving with lasix COPDAE -SVNS -Solumedrol PNA -Continue azithromycin and Zosyn for now -Thakkar cultures pending -COVID is negative JACLYN SAVAGE DO Jan 23, 2020 06:32
--- NOTE | 2020-01-23 06:49 | Diagnostic Imaging Report ---
CHEST 1 VIEW, AP/PA ONLY Indication: Shortness of breath Comparison: 01/22/2020 Findings: Right basilar opacities have slightly improved but persist. Stable left basilar subsegmental atelectasis. No pleural effusion or pneumothorax. Stable cardiomediastinal silhouette. Impression: 1. Improving but persistent bibasilar opacities, likely on the basis of resolving pneumonia and/or atelectasis. Dictated by: Dictated on workstation # [id number]
[2020-01-23] MEDS: AZITHROMYCIN 500 MG/NS 250 ML IVPB IV SCH ×2 (08:49)
[2020-01-23] MEDS: meTOprolol TARTRATE 50 MG (LOPRESSOR) TAB PO SCH ×2 (08:49→20:25)
[2020-01-23] MEDS: DOCUSATE SODIUM 100 MG (COLACE) CAP PO SCH ×2 (08:49→20:25)
[2020-01-23] MEDS: SENNOSIDES 8.6 MG (SENOKOT) TAB PO SCH ×2 (08:49→20:25)
--- NOTE | 2020-01-23 08:56 | Progress Note - Hospitalist ---
Subjective HPI/CC On Admission Date Seen by Provider: Jan 23, 2020 Time Seen by Provider: 08:51 Helene Hicks is a 54-year-old female with past medical history of hypertension, COPD, atrial fibrillation on Xarelto, DVT, who presented with shortness of breath. She had a prolonged hospitalization in September requiring intubation for acute respiratory distress syndrome. She was discharged to a rehabilitation facility and has since gone home. Since that time she says she has been doing well and not requiring any oxygen. Yesterday she was with her daughters and decided to try smoking cigarettes again. After that she became very short of breath. There were also having a cookout and she had a lot salty foods. She reports having a headache. She denies any neck stiffness. She denies having any cough or sputum production. She denies any fevers or chills. She denies any chest pain. She denies any abdominal pain, nausea, vomiting, or diarrhea. She has not had any sick contacts. She has had no recent travel. She denies any alcohol use. She denies any illicit drug use. Subjective/Events-last exam Pt reports doing well. Breathing improved. Down to one liter of oxygen. Focused Exam Lactate Level 01/22/20 06:20: Lactic Acid Level 0.78 Objective Exam Vital Signs Vital Signs Date Time Temp Pulse Resp B/P (MAP) Pulse Ox O2 Delivery O2 Flow Rate FiO2 01/23/20 08:00 37.0 79 14 138/74 (95) 97 Nasal Cannula 1.00 Capillary Refill : Less Than 3 Seconds General Appearance: No Apparent Distress, Chronically ill Respiratory: Lungs Clear, No Respiratory Distress Cardiovascular: Regular Rate, Rhythm, No Murmur Gastrointestinal: Normal Bowel Sounds, Non Tender, Soft Neurologic/Psychiatric: Alert, Oriented x3 Results/Procedures Lab Laboratory Tests 01/23/20 03:12 Patient resulted labs reviewed. Imaging: Reviewed Imaging Report Assessment/Plan Assessment and Plan Assess & Plan/Chief Complaint Acute respiratory failure with hypoxemia and hypercapnia COPD exacerbation Pneumonia Possible CHF exacerbation Not using any oxygen at home Down to 1lpm NC currently- will need home oxygen study Transition to oral steroids Chest x-ray with bibasilar infiltrates and diffuse interstitial markings Procalcitonin normal BNP elevated at 900, received Lasix yesterday Continue Zosyn and azithromycin for pneumonia Flu negative Respiratory viral panel pending COVID negative Negative troponin Echocardiogram ordered Consult cardiology Consult pulmonology - Transfer to the 4th floor Essential hypertension Paroxysmal atrial fibrillation Continue metoprolol and Xarelto - Rate controlled Hyperglycemia - Likely due to steroids - Continue SSI DVT prophylaxis: Already receiving therapeutic anticoagulation Diagnosis/Problems Diagnosis/Problems (1) Acute respiratory failure with hypoxia and hypercapnia Status: Acute (2) Paroxysmal A-fib Status: Chronic (3) HTN (hypertension) Status: Chronic Qualifiers: Hypertension type: essential hypertension Qualified Codes: I10 - Essential (primary) hypertension (4) Tobacco abuse Status: Chronic (5) COPD with exacerbation Status: Acute Clinical Quality Measures DVT/VTE Risk/Contraindication: Risk Factor Score Per Nursin RFS Level Per Nursing on Admit: 2=Moderate BROOKLYN DUNLAP MD Jan 23, 2020 08:56
[2020-01-23] MEDS ORDERED: ACETAMINOPHEN 325 MG TABLET PO ONE (09:15)
[2020-01-23] MEDS: MUPIROCIN 2% OINT 22 GM (BACTROBAN) TUBE TOP SCH ×2 (09:59→20:45)
[2020-01-23] MEDS: ADVAIR HFA 115/21 MCG INHALER 8 GM IH SCH ×2 (10:51→18:07)
--- NOTE | 2020-01-23 11:05 | NUR ---
Pastoral care visit.
[2020-01-23] MEDS ORDERED: GBPN600T PO (11:14)
[2020-01-23] MEDS ORDERED: RIVA20TA2 PO (11:14)
[2020-01-23] MEDS ORDERED: BUPR1TAB45 SL (11:14)
[2020-01-23] MEDS ORDERED: METO100T12 PO (11:26)
--- NOTE | 2020-01-23 11:30 | NUR ---
SBAR report called to Malka 4th floor RN. Patient going to room 406. Patient transferred via bed, telemetry is on. [place] GRAY transferring patient to room.
[2020-01-23] MEDS ORDERED: LISI10TA2 PO (11:31)
--- NOTE | 2020-01-23 11:31 | NUR ---
Report received from GIOVANNY Andujar. I agree with previous RN's assessment and care of patient assumed at this time.
--- NOTE | 2020-01-23 11:33 | Physical Therapy Evaluation ---
PT Evaluation-General Medical Diagnosis Admission Date Jan 22, 2020 at 07:30 Medical Diagnosis: respiratory failure/COPD exacerbation Onset Date: Jan 22, 2020 Therapy Diagnosis Therapy Diagnosis: debility Height/Weight Height (Feet): 5 Height (Inches): 5.00 Weight (Pounds): 218 Weight (Ounces): 0.0 Precautions Precautions/Isolations: Fall Prevention, Standard Precautions Weight Bear Status Right Lower Extremity: Right Weight Bearing/Tolerated Left Lower Extremity: Left Weight Bearing/Tolerated Referral Physician: Nav Reason for Referral: Evaluation/Treatment Medical History Pertinent Medical History: Atrial Fib, COPD, GERD, Heart Failure, HTN, Smoking Additional Medical History partial paraplegia after intubation in September 2019 with right UE weakness and left foot drop with AFO Current History EMS secondary to SOA Reviewed History: Yes Social History Home: Single Level Current Living Status: Other Family Entry Into Home: Ramp Prior Prior Level of Function SCALE: Activities may be completed with or without assistive devices. 3-Zbnnlyexoz-bddrnpu completes the activity by him/herself with no assistance from a helper. 5-Set-up or Clean-up Assistance-helper sets up or cleans up; patient completes activity. [place] assists only prior to or following the activity. 4-Supervision or Touching Assistance-helper provides verbal cues and/or touching/steadying and/or contact guard assistance as patient completes activity. Assistance may be provided throughout the activity or intermittently. 3-Partial/Moderate Assistance-helper does LESS THAN HALF the effort. [place] lifts, holds or supports trunk or limbs, but provides less than half the effort. 2-Substantial/Maximal Assistance-helper does MORE THAN HALF the effort. [place] lifts or holds trunk or limbs and provides more than half the effort. 2-Vfjlkwira-wqphdr does ALL the effort. Patient does none of the effort to complete the activity. Or, the assistance of 2 or more helpers is required for the patient to complete the activity. If activity was not attempted, code reason: 7-Patient Refused. 9-Not Applicable-not attempted and the patient did not perform the activity before the current illness, exacerbation or injury. 10-Not Attempted due to Environmental Limitations-(lack of equipment, weather restraints, etc.). 88-Not Attempted due to Medical Conditions or Safety Concerns. Bed Mobility: 5 Transfers (B,C,W/C): 5 Gait: 5 Indoor Mobility (Ambulation): Independent Stairs: Not Applicalbe Prior Devices Use: Walker PT Evaluation-Current Subjective Patient agrees to PT. Pain Numeric Pain Scale: 0-No Pain Location: No Pain Reported Objective Patient Orientation: Normal For Age Attachments: Osorio Catheter ROM/Strength ROM Lower Extremities bilateral LE WFL Strength Lower Extremities left LE 4/5 with left drop foot with AFO/right LE 4/5 grossly Integumentary/Posture Integumentary refer to nursing notes Bowel Incontinence: No Bladder Incontinence: Osorio Cath Posture WFL Neuromuscular (Tone, Coordination, Reflexes) left drop foot Sensory Vision: Functional Hearing: Functional Sensation Right Lower Extremit: Impaired Sensation Left Lower Extremity: Impaired Transfers Roll Left to Right (QC): 5 Lying to Sitting/Side of Bed(Q: 5 Sit to Stand (QC): 5 Gait Does the Patient Walk?: Yes Mode of Locomotion: Walk Anticipated Mode of Locomotion: Walk Walk 10 feet (QC): 4 Walk 50 ft with 2 Turns(QC): 4 Walk 150 ft (QC): 4 Distance: 225' Gait Assistive Device: FWW Comments/Gait Description safe and functional Balance Sitting Static: Normal Sitting Dynamic: Normal Standing Static: Normal Standing Dynamic: Normal Assessment/Needs 54 y.o. female, will be seen short term by skilled PT to address functional mobility to ensure safe return to home with parents at maximum LOF. Rehab Potential: Fair Post Rehab Potential-Barriers: compliance PT It Business Analyst Goals It Business Analyst Goals PT Correction Goals Time Frame: Jan 28, 2020 Roll Left & Right (QC): 5 Sit to Lying (QC): 5 Lying-Sitting on Side/Bed(QC): 5 Sit to Stand (QC): 5 Chair/Jku-ff-Dorlj Xfer(QC): 5 Toilet Transfer (QC): 5 Does the Patient Walk: Yes Walk 10 feet (QC): 5 Walk 50ft with 2 Turns (QC): 5 Walk 150 ft (QC): 5 PT Plan Treatment/Plan Treatment Plan: Continue Plan of Care Treatment Plan: Bed Mobility, Education, Functional Activity Lyn, Functional Strength, Gait, Safety, Therapeutic Exercise, Transfers Treatment Duration: Jan 28, 2020 Frequency: 5 times per week Estimated Hrs Per Day: .25 hour per day Patient and/or Family Agrees t: Yes Discharge Recommendations Therapy Discharge Recommendati: Post Acute PT (outpatient continued) Time/GCodes Time In: 1100 Time Out: 1123 Total Billed Treatment Time: 23 Total Billed Treatment 1 visit EVModC 23 min MERVIN PETERSON PT Jan 23, 2020 11:33
--- NOTE | 2020-01-23 11:34 | NUR ---
SPOKE WITH THE PT, WENT THRU THE EXT MED HISTORY AND CALLED CHAPIN AND HER PARENTS (THEY HELP PT W/ HER MEDS) TO COMPLETE THE MED REC GABAPENTIN 600MG: THE DIRECTIONS ARE 1 TAB TID HOWEVER THE PT SAYS SHE TAKES 2 TABS HS LISINOPRIL 10MG: DIRECTIONS SHOW 2 TABS DAILY HOWEVER THE PT IS TAKING 1 TAB BID 01-06-2020 METOPROLOL TART 100MG 1 & TABS BID (THIS IS NOT SHOWING ON THE EXT MED HISTORY- CHAPIN GAVE #45 BUT WHEN I WAS ON THE PHONE WITH THE [facility] HE REALIZED IT WAS DISPENSED/ BILLED INCORRECTLY AND HE WAS GOING TO FIX IT)
--- NOTE | 2020-01-23 14:22 | Occupational Therapy Eval ---
OT Evaluation-General/PLF Medical Diagnosis Admission Date Jan 22, 2020 at 07:30 Medical Diagnosis: respiratory failure/COPD exacerbation Onset Date: Jan 22, 2020 Therapy Diagnosis Therapy Diagnosis: Decreased ADL status Height/Weight Height (Feet): 5 Height (Inches): 5.00 Weight (Pounds): 218 Weight (Ounces): 0.0 Precautions Precautions/Isolations: Fall Prevention, Standard Precautions Safety Interventions: Reorient-PRN Weight Bear Status Weight Bearing Restriction: Weight Bearing/Tolerated Referral Physician: Nav Referral Reason: Activity Tolerance, Self Care, Evaluation/Treatment, Strengthening/ROM Medical History Pertinent Medical History: Atrial Fib, COPD, GERD, Heart Failure, HTN, Smoking Social History Home: Single Level Current Living Status: Other Family Entry Into Home: Ramp ADL-Prior Level of Function SCALE: Activities may be completed with or without assistive devices. 1-Rkqeitsogo-exiwvhp completes the activity by him/herself with no assistance from a helper. 5-Set-up or Clean-up Assistance-helper sets up or cleans up; patient completes activity. [place] assists only prior to or following the activity. 4-Supervision or Touching Assistance-helper provides verbal cues and/or touching/steadying and/or contact guard assistance as patient completes activity. Assistance may be provided throughout the activity or intermittently. 3-Partial/Moderate Assistance-helper does LESS THAN HALF the effort. [place] lifts, holds or supports trunk or limbs, but provides less than half the effort. 2-Substantial/Maximal Assistance-helper does MORE THAN HALF the effort. [place] lifts or holds trunk or limbs and provides more than half the effort. 8-Pwuyiosqj-igtypy does ALL the effort. Patient does none of the effort to complete the activity. Or, the assistance of 2 or more helpers is required for the patient to complete the activity. If activity was not attempted, code reason: 7-Patient Refused. 9-Not Applicable-not attempted and the patient did not perform the activity before the current illness, exacerbation or injury. 10-Not Attempted due to Environmental Limitations-(lack of equipment, weather restraints, etc.). 88-Not Attempted due to Medical Conditions or Safety Concerns. ADL PLOF Comments Pt states requires min A with ADLs since previous intubation in Sep 2019. Pt experienced R UE and LLE weakness post-intubation. Self Care: Needed Some Help Functional Cognition: Independent DME/Equipment: Bath Chair, Bedside Commode, Grab Bars, Shower DME/Equipment Comments walker, w/c Occupation: unemployed Drive Self: No OT Current Status Subjective Pt seen in bed, eating lunch. Pt agreeable to OT eval/ treat. Pt states no pain at this time. Mental Status/Objective Patient Orientation: Person, Place, Situation, Normal For Age Attachments: Osorio Catheter Current Glasses/Contacts: Yes Hearing Aids: No Dentures/Partials: No Hand Dominance: Left Upper Extremity ROM WFL LUE Decreased RUE Upper Extremity Coordination WFL LUE Decreased RUE- inability to oppose Upper Extremity Strength WFL LUE Decreased RUE (4-/5 shoulder flexion, 3+/5 elbow flexion, 3/5 wrist flexion) Edema: noted R UE (hand) ADL-Treatment Eating (QC): 6 Oral Hygiene (QC): 6 (per pt.) Pt states mom assists with LB dressing/ UB dressing at times, pt requires assist with sock donning has shoe horn for shoe donning. Other Treatments Pt completes bed mob with SBA, completes AROM/ MMT EOB. Pt's R hand edematous, educated pt on UE movement and stretches for edema management. Pt educated on brain plasticity, pt educated on movement of all joints and forced movement for brain rewiring. Pt sit to stand from EOB to walker with CGA. Pt adjusts back of shirt with L hand, pt requires CGA during this task. Pt sits on commode with SBA, sit to stand from commode with CGA. pt sits in recliner chair, all needs met, call light in reach. Pt expresses desire to continue therapy with OT for UE strength and ADL tasks/ AE. Education OT Patient Education: Correct positioning, Home exercise program, Purpose of tx/functional activities, Safety issues Teaching Recipient: Patient Teaching Methods: Demonstration, Discussion Response to Teaching: Verbalize Understanding, Return Demonstration OT Halfway Goals Halfway Goals Time Frame: Jan 30, 2020 Oral Hygiene (QC): 6 Toileting Hygiene (QC): 6 Shower/Bathe Self (QC): 5 Upper Body Dressing (QC): 6 Lower Body Dressing (QC): 5 On/Off Footwear (QC): 5 Additional Goals: 1-Demonstrate ADL Tasks, 2-Verbalize Understanding, 3- ImproveStrength/Lyn 1=Demonstrate adherence to instructed precautions during ADL tasks. 2=Patient will verbalize/demonstrate understanding of assistive devices/modifications for ADL. 3=Patient will improve strength/tolerance for activity to enable patient to perform ADL's. OT Education/Plan Problem List/Assessment Assessment: Decreased Activ Tolerance, Decreased UE Strength, Edema, Impaired Coordination, Impaired Funct Balance, Impaired I ADL's, Impaired Self-Care Skills Discharge Recommendations Plan/Recommendations: Continue POC Therapy Discharge Recommendati: Home & Family, Post Acute OT Equpiment Recommendations-D/C: Sock Aide Treatment Plan/Plan of Care Treatment,Training & Education: Yes Patient would benefit from OT for education, treatment and training to promote independence in ADL's, mobility, safety and/or upper extremity function for ADL's. Plan of Care: ADL Retraining, Functional Mobility, UE Funct Exercise/Act, UE Neuromus Re-Ed/Coord Treatment Duration: Jan 30, 2020 Frequency: 5 times per week Estimated Hrs Per Day: .25 hour per day Agreement: Yes Rehab Potential: Fair Time/GCodes Start Time: 12:55 Stop Time: 13:20 Total Time Billed (hr/min): 25 Billed Treatment Time 1, EVL, ADL (25) MICHEL TRIMBLE OTR Jan 23, 2020 14:22
[2020-01-23] MEDS: ACETAMINOPHEN 325 MG TABLET PO PRN ×2 (14:27→20:44)
--- NOTE | 2020-01-23 14:32 | NUR ---
"RD ASSESSMENT PMHx: afib; HTN; chronic UTI; DM; COPD PT INTERACTION: Pt was awake and pleasant during nutrition assessment. Pt states current appetite is pretty good. Note avg PO intake 75% x2meal, per chart review. Pt states trying to follow a low-Na diet at home, and has no issues with chewing/swallowing food. Pt states no recent issues with n/v/c/d at this time, and that her last BM was 01/19. Note pt currently on bowel regimen of Colace BID; and Senna BID, per chart review. Pt states no recent wt changes and that her UBW is 194#. Note recent 20# wt loss (-10%) x2mon, per chart review. Pt states current DM management is pretty good. Note unable to determine recent HbA1c, per chart review. Pt did have questions regarding ketogenic diet and DM. ABNORMAL NUTRITION-RELATED LAB VALUES LOW: HIGH: glu 207 Est. kcal needs: 7764-7684 kcal | 15-20 kcal/kg Est. Pro needs: 71-88 g Pro | 0.8-1.0 g Pro/kg PES STATEMENT: Food- and nutrition-related knowledge deficit (NB-1.1) related to prior exposure to incorrect information (ketogenic diet) as evidenced by verbalizes inaccurate information INTERVENTION: Continue with current diet order of CHO 60g/m 1snack diet. Discussed with pt an overview of the ketogenic diet and negative health concerns that may result from DM patients following the diet. Pt verbalized understanding of the diet and its effects. Discussed with pt consistent CHO diet and balanced food options for DM patients. Discussed smartphone applications and how they can assist in CHO counting throughout the day. Provided contact information should pt have any questions upon discharge. Will continue to follow and reassess as pt needs, intake, and status change. MONITOR/EVALUATE: PO Intake; Plan of Care; Hydration Status; Weight Status; Lab Values Pancho Rodriguez, MS, RD, LD"
[2020-01-23 16:20] LABS: RSV PCR TEST Not Detected (Not Detected)
[2020-01-23] MEDS: RIVAROXABAN 20 MG TABLET (XARELTO) PO SCH (16:48)
--- NOTE | 2020-01-23 17:45 | Consultation-Cardiology ---
HPI-Cardiology Cardiology Consultation: Date of Consultation 01/23/20 Date of Admission Attending Physician Ace Diamond MD Admitting Physician García Hicks DO Consulting Physician Graciela BOX MD HPI: Time Seen by a Provider: 17:00 Chief Complaint: Shortness of breath This is a 54-year-old lady who presented to the ER with shortness of breath and hypoxia. She has history of significant COPD, atrial fibrillation, DVT. She had recent hospitalization in September 2019 for acute respiratory failure and pneumonia. She is an active smoker. She had coronary angiography in 2018 which showed normal coronary arteries and normal ejection fraction. No pertinent family history. She was hypoxic in the ER and diffusely wheezing. Review of Systems-Cardiology Review of Systems Constitutional: As described under HPI; No As described under HPI, No no symptoms reported, No chills, No fever, No lightheadedness Eyes: No As described under HPI, No no symptoms reported, No blindness, No blurred vision, No contact lenses, No drainage, No decreased acuity, No foreign body sensation, No pain, No vision change Ears/Nose/Throat: No As described under HPI, No no symptoms reported, No chronic hearing loss, No ear discharge, No ear pain, No nasal drainage, No u lcerations Respiratory: No no symptoms reported; As described under HPI; No As described under HPI, No cough, No orthopnea; shortness of breath; No SOB with excertion Cardiovascular: No no symptoms reported; As described under HPI; No As described under HPI, No chest pain, No edema, No irregular heart rate, No lightheadedness, No palpitations Gastrointestinal: No no symptoms reported, No As described under HPI, No abdomen distended, No abdominal pain, No blood streaked bowels, No constipation, No diarrhea, No nausea, No vomiting, No stool coloration changes Genitourinary: No As described under HPI, No burning, No dysuria, No discharge, No frequency, No flank pain, No hematuria, No urgency : No Skin: No rash, No skin related problems, No ulcerations Psychiatric/Neurological: No anxiety, No depression, No seizure, No focal weakness, No syncope Hematologic: No bleeding abnormalities WYQ-Jajxdi-Ocjnvc Hx Patient Social History Alcohol Use: Denies Use Recreational Drug Use: No Smoking Status: Current Someday Smoker Type Used: Cigarettes 2nd Hand Smoke Exposure: Yes Recent Foreign Travel: No Recent Infectious Disease Expo: No Hospitalization with Isolation: Denies Immunizations Up To Date Tetanus Booster (TDap): Unknown Past Medical History PMH As described under Assessment. Family Medical History Family Medical History: Unable to provide any h/o d/t intubation and sedation. Review of chart shows father had an AL, CVA and HTN. Mother with h/o HTN. Family History: Cerebrovascular accident (CVA) 19 FATHER, Onset:60 years & older FH: testicular cancer G8 BROTHER, Onset:30's - 40 Hypertension 19 FATHER, Onset:Unknown 19 MOTHER, Onset:Unknown G8 BROTHER, Onset:Unknown G8 BROTHER, Onset:Unknown Myocardial infarction 19 FATHER, Onset:40's - 50 Allergies and Home Medications Allergies Coded Allergies: No Known Drug Allergies (Unverified , 04/29/19) Home Medications Albuterol Sulfate 18 Gm Hfa.aer.ad, 2 PUFF INH Q4H PRN for SHORTNESS OF BREATH, (Reported) Amoxicillin/Potassium Clav 1 Each Tablet, 1 EACH PO BID Prescribed by: BROOKLYN DUNLAP on 01/24/20 1056 Atorvastatin Calcium 40 Mg Tablet, 40 MG PO HS, (Reported) Azithromycin 250 Mg Tablet, 250 MG PO DAILY Prescribed by: BROOKLYN DUNLAP on 01/24/20 1056 Buprenorphine HCl/Naloxone HCl 1 Each Tab.subl, 1 EACH SL BID, (Reported) Fluoxetine HCl 10 Mg Tablet, 10 MG PO DAILY, (Reported) Fluticasone/Salmeterol 12 Gm Hfa.aer.ad, 0 PUFF IH RTBID Prescribed by: BROOKLYN DUNLAP on 01/24/20 1056 Furosemide 40 Mg Tablet, 40 MG PO DAILY, (Reported) Gabapentin 600 Mg Tablet, 1,200 MG PO HS, (Reported) Insulin Determir 1,000 Units/10 Ml Soln, 5 UNIT SQ HS Prescribed by: ACE DIAMOND on 10/24/19 1035 Ipratropium/Albuterol Sulfate 3 Ml Ampul.neb, 3 ML NEB QID PRN for SHORTNESS OF BREATH, (Reported) Lisinopril 10 Mg Tablet, 10 MG PO BID, (Reported) Metoprolol Tartrate 100 Mg Tablet, 150 MG PO BID, (Reported) TAKES 1 & (100MG)TABS TWICE DAILY Ondansetron 4 Mg Tab.rapdis, 4 MG PO Q4H PRN for NAUSEA/VOMITING-1ST LINE, (Reported) Potassium Chloride 20 Meq Tablet.er, 20 MEQ PO DAILY, (Reported) Prednisone 20 Mg Tab, 40 MG PO DAILY@0700 Prescribed by: BROOKLYN DUNLAP on 01/24/20 1056 Rivaroxaban 20 Mg Tablet, 20 MG PO HS, (Reported) Sennosides/Docusate Sodium 1 Each Tablet, 1 EA PO BID PRN for CONSTIPATION-1ST LINE Prescribed by: ACE DIAMOND on 10/24/19 1035 Tiotropium [place] 4 Gm Mist.inhal, 1-2 PUFF INH DAILY, (Reported) Patient Home Medication List Home Medication List Reviewed: Yes Physical Exam-Cardiology Physical Exam Vital Signs/I&O 01/24/20 01/24/20 01/24/20 01/24/20 01:40 04:00 07:00 07:17 Temp 36.6 Pulse 68 68 Resp 21 B/P (MAP) 158/71 (100) Pulse Ox 92 92 92 O2 Delivery Room Air Room Air Room Air 01/24/20 01/24/20 01/24/20 01/24/20 08:00 09:00 10:38 11:17 Temp 37.1 Pulse 97 Resp 18 B/P (MAP) 120/78 (92) Pulse Ox 93 93 92 92 O2 Delivery Room Air Room Air Nasal Cannula O2 Flow Rate 1.00 1.00 1.00 01/24/20 00:00 Intake Total 610 ml Output Total 550 ml Balance 60 ml Capillary Refill : Less Than 3 Seconds Constitutional: appears stated age; No apparent distress; well-developed, well- nourished HEENT: PERRL; No discharge; hearing is well preserved, oral hygience is good; No ulceration, No xanthelasmas are seen Neck: No carotid bruit; carotid pulses are 2 + bilaterally Respiratory: chest is bilaterally symmetric, lungs clear to auscultation, wheezing Cardiovascular: regular rate-rhythm, S1 and S2 Gastrointestinal: soft, audible bowel sounds; No spleenomegaly Rectal: deferred Extremities: normal range of motion, non-tender, normal inspection, pedal edema; No clubbing, No cyanosis, No significant edema Neurologic/Psychiatric: no motor/sensory deficits, alert, normal mood/affect, oriented x 3, power is 5/5 both on sides Skin: normal color; No rash, No ulcerations Data Review Labs Laboratory Tests 01/23/20 15:33: Glucometer 217H 01/23/20 20:26: Glucometer 273H 01/24/20 04:22: White Blood Count 8.3, Red Blood Count 2.84L, Hemoglobin 8.6L, Hematocrit 28L, Mean Corpuscular Volume 100H, Mean Corpuscular Hemoglobin 30, Mean Corpuscular Hemoglobin Concent 30L, Red Cell Distribution Width 13.4, Platelet Count 280, Mean Platelet Volume 9.5, Neutrophils (%) (Auto) 77H, Lymphocytes (%) (Auto) 17, Monocytes (%) (Auto) 6, Eosinophils (%) (Auto) 0, Basophils (%) (Auto) 0, Neutrophils # (Auto) 6.4, Lymphocytes # (Auto) 1.4, Monocytes # (Auto) 0.5, Eosinophils # (Auto) 0.0, Basophils # (Auto) 0.0, Sodium Level 138, Potassium Level 3.2L, Chloride Level 100, Carbon Dioxide Level 27, Anion Gap 11, Blood Urea Nitrogen 18, Creatinine 0.94, Estimat Glomerular Filtration Rate > 60, BUN/Creatinine Ratio 19, Glucose Level 143H, Calcium Level 9.0, Phosphorus Level 2.8, Magnesium Level 1.9 01/24/20 05:52: Glucometer 158H 01/24/20 10:11: Glucometer 173H Microbiology 01/22/20 Urine Culture - Final, Complete Escherichia coli 01/22/20 MRSA Screen - Final, Complete 01/22/20 Blood Culture - Preliminary, Resulted No growth A/P-Cardiology Assessment/Admission Diagnosis COPD exacerbation, Acute respiratory failure, Acute on chronic diastolic congestive heart failure, Active smoking, Atrial fibrillation, History of DVT, On oral anticoagulation Plan COPD exacerbation, acute respiratory failure, defer to the primary team. Likely multifactorial including contribution from congestive heart failure. Acute on chronic diastolic congestive heart failure, echocardiogram done 01/23/2020 shows normal LV function with moderate diastolic dysfunction. Significant improvement with Lasix. BNP significantly elevated on admission. Active smoking, strongly recommended to quit. Atrial fibrillation, continue oral anticoagulation. History of DVT, on Xarelto. On oral anticoagulation Thank you for your consultation. Please call me if you have any questions. Taz Box MD, FACP, FACC, FSCAI, FHRS, CCDS Interventional Cardiology Cardiac Electrophysiology Vascular Medicine and Endovascular Interventions Clinical Quality Measures DVT/VTE Risk/Contraindication: Risk Factor Score Per Nursin RFS Level Per Nursing on Admit: 2=Moderate Graciela BOX MD Jan 23, 2020 17:45
[2020-01-24 00:18] VITALS: BP 156/78
[2020-01-24] MEDS: RT-ALBUTEROL/IPRATROPIUM 3 ML (DUONEB) VIAL INH SCH ×4 (01:40→14:19)
[2020-01-24 04:00] VITALS: BP 158/71
[2020-01-24 05:02] LABS: BASOPHILS % (AUTO) 0 % (0-10); EOSINOPHILS % (AUTO) 0 % (0-10); HEMATOCRIT 28 % (35-52); HEMOGLOBIN 8.6 G/DL (11.5-16.0); LYMPHOCYTES # (AUTO) 1.4 X 10^3 (1.0-4.0); LYMPHOCYTES % (AUTO) 17 % (12-44); MEAN CORPUSCULAR HEMOGLOBIN 30 PG (25-34); MEAN CORPUSCULAR HGB CONC 30 G/DL (32-36); MEAN CORPUSCULAR VOLUME 100 FL (80-99); MEAN PLATELET VOLUME 9.5 FL (7.4-10.4); MONOCYTES # (AUTO) 0.5 X 10^3 (0.0-1.0); MONOCYTES % (AUTO) 6 % (0-12); NEUTROPHILS # (AUTO) 6.4 X 10^3 (1.8-7.8); NEUTROPHILS % (AUTO) 77 % (42-75); PLATELET COUNT 280 10^3/uL (130-400); RED CELL DISTRIBUTION WIDTH 13.4 % (10.0-14.5); WHITE BLOOD COUNT 8.3 10^3/uL (4.3-11.0)
[2020-01-24 05:13] LABS: CHLORIDE 100 MMOL/L (98-107); POTASSIUM 3.2 MMOL/L (3.6-5.0); SODIUM 138 MMOL/L (135-145)
[2020-01-24 05:14] LABS: GLUCOSE 143 MG/DL (70-105)
[2020-01-24 05:16] LABS: CARBON DIOXIDE 27 MMOL/L (21-32)
[2020-01-24 05:18] LABS: CREATININE SERUM 0.94 MG/DL (0.60-1.30); GFR ESTIMATED > 60; PHOSPHORUS 2.8 MG/DL (2.3-4.7)
[2020-01-24 05:19] LABS: BUN/CREATININE RATIO 19
[2020-01-24 05:21] LABS: MAGNESIUM 1.9 MG/DL (1.6-2.4)
[2020-01-24] MEDS: inSUlin ASPART (NovoLOG) 1 UNIT/0.01 ML (CHARGE PER UNIT) SC SCH ×2 (06:41→10:31)
[2020-01-24] MEDS ORDERED: predniSONE 20 MG TAB PO SCH (07:00)
[2020-01-24] MEDS: PIPERACILLIN/TAZO 4.5 GM/NS 100 ML IV SCH ×2 (07:05)
[2020-01-24] MEDS: ADVAIR HFA 115/21 MCG INHALER 8 GM IH SCH (07:13)
[2020-01-24 08:00] VITALS: BP 120/78
[2020-01-24] MEDS: DOCUSATE SODIUM 100 MG (COLACE) CAP PO SCH (08:05)
[2020-01-24] MEDS: SENNOSIDES 8.6 MG (SENOKOT) TAB PO SCH (08:05)
[2020-01-24] MEDS: meTOprolol TARTRATE 50 MG (LOPRESSOR) TAB PO SCH (08:06)
[2020-01-24] MEDS: MUPIROCIN 2% OINT 22 GM (BACTROBAN) TUBE TOP SCH (08:06)
--- NOTE | 2020-01-24 09:10 | Discharge Summary ---
Diagnosis/Chief Complaint Date of Admission Jan 22, 2020 at 07:30 Date of Discharge Admission Diagnosis Acute respiratory failure with hypoxemia and hypercapnia Primary Care García Hicks DO Discharge Diagnosis (1) Acute respiratory failure with hypoxia and hypercapnia Status: Acute (2) Paroxysmal A-fib Status: Chronic (3) HTN (hypertension) Status: Chronic (4) Tobacco abuse Status: Chronic (5) COPD with exacerbation Status: Acute Discharge Summary Discharge Physical Exam Allergies: Coded Allergies: No Known Drug Allergies (Unverified , 04/29/19) Vitals & I&Os Vital Signs Date Time Temp Pulse Resp B/P (MAP) Pulse Ox O2 Delivery O2 Flow Rate FiO2 01/24/20 08:00 37.1 97 18 120/78 (92) 93 Room Air 01/23/20 11:00 1.00 Hospital Course Labs (last 24 hrs) Laboratory Tests 01/23/20 10:49: Glucometer 241H 01/23/20 15:33: Glucometer 217H 01/23/20 20:26: Glucometer 273H 01/24/20 04:22: White Blood Count 8.3, Red Blood Count 2.84L, Hemoglobin 8.6L, Hematocrit 28L, Mean Corpuscular Volume 100H, Mean Corpuscular Hemoglobin 30, Mean Corpuscular Hemoglobin Concent 30L, Red Cell Distribution Width 13.4, Platelet Count 280, Mean Platelet Volume 9.5, Neutrophils (%) (Auto) 77H, Lymphocytes (%) (Auto) 17, Monocytes (%) (Auto) 6, Eosinophils (%) (Auto) 0, Basophils (%) (Auto) 0, Neutrophils # (Auto) 6.4, Lymphocytes # (Auto) 1.4, Monocytes # (Auto) 0.5, Eosinophils # (Auto) 0.0, Basophils # (Auto) 0.0, Sodium Level 138, Potassium Level 3.2L, Chloride Level 100, Carbon Dioxide Level 27, Anion Gap 11, Blood Urea Nitrogen 18, Creatinine 0.94, Estimat Glomerular Filtration Rate > 60, BUN/Creatinine Ratio 19, Glucose Level 143H, Calcium Level 9.0, Phosphorus Level 2.8, Magnesium Level 1.9 01/24/20 05:52: Glucometer 158H Microbiology 01/22/20 Urine Culture - Preliminary, Resulted Escherichia coli 01/22/20 MRSA Screen - Final, Complete 01/22/20 Blood Culture - Preliminary, Resulted No growth Patient resulted labs reviewed. Pending Labs Laboratory Tests 01/24/20 04:22: White Blood Count 8.3, Red Blood Count 2.84, Hemoglobin 8.6, Hematocrit 28, Mean Corpuscular Volume 100, Mean Corpuscular Hemoglobin 30, Mean Corpuscular Hemoglobin Concent 30, Red Cell Distribution Width 13.4, Platelet Count 280, Mean Platelet Volume 9.5, Neutrophils (%) (Auto) 77, Lymphocytes (%) (Auto) 17, Monocytes (%) (Auto) 6, Eosinophils (%) (Auto) 0, Basophils (%) (Auto) 0, Neut rophils # (Auto) 6.4, Lymphocytes # (Auto) 1.4, Monocytes # (Auto) 0.5, Eosinophils # (Auto) 0.0, Basophils # (Auto) 0.0, Sodium Level 138, Potassium Level 3.2, Chloride Level 100, Carbon Dioxide Level 27, Anion Gap 11, Blood Urea Nitrogen 18, Creatinine 0.94, Estimat Glomerular Filtration Rate > 60, BUN/Creatinine Ratio 19, Glucose Level 143, Calcium Level 9.0, Phosphorus Level 2.8, Magnesium Level 1.9 01/24/20 05:52: Glucometer 158 Imaging: Reviewed Imaging Report Discharge Home Medications: Active Scripts Active Senna-Time S Tablet (Sennosides/Docusate Sodium) 1 Each Tablet 1 Ea PO BID PRN 30 Days Levemir (Insulin Determir) 1,000 Units/10 Ml Soln 5 Unit SQ HS 30 Days Reported Lisinopril 10 Mg Tablet 10 Mg PO BID Metoprolol Tartrate 100 Mg Tablet 150 Mg PO BID TAKES 1 & (100MG)TABS TWICE DAILY Buprenorphin-Naloxon 8-2 mg Sl (Buprenorphine HCl/Naloxone HCl) 1 Each Tab.subl 1 Each SL BID Gabapentin 600 Mg Tablet 1,200 Mg PO HS Xarelto Tablet (Rivaroxaban) 20 Mg Tablet 20 Mg PO HS Furosemide 40 Mg Tablet 40 Mg PO DAILY Fluoxetine HCl 10 Mg Tablet 10 Mg PO DAILY Ondansetron Odt (Ondansetron) 4 Mg Tab.rapdis 4 Mg PO Q4H PRN Iprat-Albut 0.5-3(2.5) mg/3 ml (Ipratropium/Albuterol Sulfate) 3 Ml Ampul.neb 3 Ml NEB QID PRN Potassium Chloride 20 Meq Tablet.er 20 Meq PO DAILY Spiriva Respimat 2.5MCG/ACTUATION (Tiotropium [place]) 4 Gm Mist.inhal 1-2 Puff INH DAILY Ventolin Hfa (Albuterol Sulfate) 18 Gm Hfa.aer.ad 2 Puff INH Q4H PRN Atorvastatin Calcium 40 Mg Tablet 40 Mg PO HS Instructions to patient/family Please see electronic discharge instructions given to patient. Clinical Quality Measures DVT/VTE Risk/Contraindication: Risk Factor Score Per Nursin RFS Level Per Nursing on Admit: 2=Moderate Problem Qualifiers (1) HTN (hypertension): Hypertension type: essential hypertension Qualified Codes: I10 - Essential (primary) hypertension BROOKLYN DUNLAP MD Jan 24, 2020 09:10
--- NOTE | 2020-01-24 09:20 | Physical Therapy Daily Note ---
PT Daily Note-Current Subjective Patient agrees to PT. Patient reports she desires to go home today. Pain Numeric Pain Scale: 0-No Pain Location: No Pain Reported Mental Status Patient Orientation: Normal For Age Attachments: IV Transfers SCALE: Activities may be completed with or without assistive devices. 5-Kfidpgbgxi-evbhtpq completes the activity by him/herself with no assistance from a helper. 5-Set-up or Clean-up Assistance-helper sets up or cleans up; patient completes activity. [place] assists only prior to or following the activity. 4-Supervision or Touching Assistance-helper provides verbal cues and/or touching/steadying and/or contact guard assistance as patient completes ac tivity. Assistance may be provided throughout the activity or intermittently. 3-Partial/Moderate Assistance-helper does LESS THAN HALF the effort. [place] lifts, holds or supports trunk or limbs, but provides less than half the effort. 2-Substantial/Maximal Assistance-helper does MORE THAN HALF the effort. [place] lifts or holds trunk or limbs and provides more than half the effort. 6-Mpggqbbrd-rrveaw does ALL the effort. Patient does none of the effort to complete the activity. Or, the assistance of 2 or more helpers is required for the patient to complete the activity. If activity was not attempted, code reason: 7-Patient Refused. 9-Not Applicable-not attempted and the patient did not perform the activity before the current illness, exacerbation or injury. 10-Not Attempted due to Environmental Limitations-(lack of equipment, weather restraints, etc.). 88-Not Attempted due to Medical Conditions or Safety Concerns. Roll Left & Right (QC): 6 Lying to Sitting/Side of Bed(Q: 6 Sit to Stand (QC): 5 Chair/Vaa-ce-Givlz Xfer(QC): 5 Toilet Transfer (QC): 5 Weight Bearing Right Lower Extremity: Right Weight Bearing/Tolerated Left Lower Extremity: Left Weight Bearing/Tolerated Gait Training Does the Patient Walk?: Yes Distance: 100' x 2/600' Walk 10 feet (QC): 6 Walk 50 ft with 2 Turns(QC): 6 Gait Assistive Device: FWW assist to don bilateral LEESA hose, AFO left foot and shoes/safe and functional gait sequence Treatments SAO2 RA upon arrival 89%. SAO2 decreased to 85% after 100' ambulation, O2 2L NC place with SAO2 increasing to 92% Assessment Dr. Chopra notified of SAO2 findings. Patient tolerated treatment well and is up in recliner with O2 2L NC in place. 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 Goals Assisted Goals 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 Goals Time Frame: Jan 28, 2020 Roll Left & Right (QC): 5 Sit to Lying (QC): 5 Lying-Sitting on Side/Bed(QC): 5 Sit to Stand (QC): 5 Chair/Dqg-ue-Xwoqp Xfer(QC): 5 Toilet Transfer (QC): 5 Does the Patient Walk: Yes Walk 10 feet (QC): 5 Walk 50ft with 2 Turns (QC): 5 Walk 150 ft (QC): 5 PT Plan Treatment/Plan Treatment Plan: Continue Plan of Care Treatment Plan: Bed Mobility, Education, Functional Activity Lyn, Functional Strength, Gait, Safety, Therapeutic Exercise, Transfers Treatment Duration: Jan 28, 2020 Frequency: 5 times per week Estimated Hrs Per Day: .25 hour per day Patient and/or Family Agrees t: Yes Time/GCodes Time In: 820 Time Out: 845 Total Billed Treatment Time: 25 Total Billed Treatment 1 visit FA x 2 25 min MERVIN PETERSON PT Jan 24, 2020 09:20
--- NOTE | 2020-01-24 09:30 | NUR ---
IRF Evaluation Order received to evaluate patient for the ARU. Chart review complete and it appears patient is ambulating (100x2/600ft, FWW) and completing bed mobility with independence, as well as set-up for transfers; therefore, patient does not require intensive therapies, at this time. This information was discussed with Dr. Chopra. Thank you for this referral.
[2020-01-24] MEDS: AZITHROMYCIN 500 MG/NS 250 ML IVPB IV SCH ×2 (09:50)
--- NOTE | 2020-01-24 10:38 | NUR ---
SPO2 DROPPED TO 87% ON ROOM AIR @ REST. REPLACED O2 @ 1 LPM. SPO2 INCREASED TO 91%. Addendum: 01/24/20 at 1127 by TEJAS LADD RT Amended: Links added.
[2020-01-24] MEDS ORDERED: AZIT250T12 PO (10:56)
[2020-01-24] MEDS ORDERED: PRD20T PO (10:56)
[2020-01-24] MEDS ORDERED: FLUT12AE4 IH (10:56)
[2020-01-24] MEDS ORDERED: AMOX-358 PO (10:56)
--- NOTE | 2020-01-24 10:58 | Discharge Inst-Simple/Standard ---
Discharge Inst-Standard Discharge Medications New, Converted or Re-Newed RX: Transmitted to Pharmacy Patient Instructions/Follow Up Plan of Care/Instructions/FU: Please continue to take your medications as written. Please follow up with your primary care doctor in the next week to follow up this hospital stay. Activity as Tolerated: Yes Discharge Diet: ADA Diet Return to The Hospital For: Shortness of breath, chest pain, swelling, fever, confusion, if you feel you are getting worse. BROOKLYN DUNLAP MD Jan 24, 2020 10:58
--- NOTE | 2020-01-24 11:23 | Occupational Ther Daily Note ---
OT Current Status-Daily Note Subjective Pt to discharge today, per pt. Pt agrees to therapy. No c/o pain. Mental Status/Objective Patient Orientation: Person, Place, Time, Situation Attachments: Oxygen ADL-Treatment Therapy Code Descriptions/Definitions Functional [place] Measure: 0=Not Assessed/NA 4=Minimal Assistance 1=Total Assistance 5=Supervision or Setup 2=Maximal Assistance 6=Modified [place] 3=Moderate Assistance 7=Complete IndependenceSCALE: Activities may be completed with or without assistive devices. 9-Vkcntrusnr-ktxihvp completes the activity by him/herself with no assistance from a helper. 5-Set-up or Clean-up Assistance-helper sets up or cleans up; patient completes activity. [place] assists only prior to or following the activity. 4-Supervision or Touching Assistance-helper provides verbal cues and/or touching/steadying and/or contact guard assistance as patient completes activity. Assistance may be provided throughout the activity or intermittently. 3-Partial/Moderate Assistance-helper does LESS THAN HALF the effort. [place] lifts, holds or supports trunk or limbs, but provides less than half the effort. 2-Substantial/Maximal Assistance-helper does MORE THAN HALF the effort. [place] lifts or holds trunk or limbs and provides more than half the effort. 4-Zhrzujltb-hnsryk does ALL the effort. Patient does none of the effort to complete the activity. Or, the assistance of 2 or more helpers is required for the patient to complete the activity. If activity was not attempted, code reason: 7-Patient Refused. 9-Not Applicable-not attempted and the patient did not perform the activity before the current illness, exacerbation or injury. 10-Not Attempted due to Environmental Limitations-(lack of equipment, weather restraints, etc.). 88-Not Attempted due to Medical Conditions or Safety Concerns. Other Treatment Pt voiced no concerns about going home and completing ADLs in home environment. Pt educated on retrograde massage to R fingers and hand. After session, pt sitting in recliner with call light/phone in reach. All needs met in room. Nrsg in room. Education OT Patient Education: Other (retrograde massage) Teaching Recipient: Patient Teaching Methods: Demonstration, Discussion Response to Teaching: Verbalize Understanding, Return Demonstration OT Senior Living Goals Senior Living Goals Time Frame: Jan 30, 2020 Oral Hygiene (QC): 6 Toileting Hygiene (QC): 6 Shower/Bathe Self (QC): 5 Upper Body Dressing (QC): 6 Lower Body Dressing (QC): 5 On/Off Footwear (QC): 5 Additional Goals: 1-Demonstrate ADL Tasks, 2-Verbalize Understanding, 3- ImproveStrength/Lyn 1=Demonstrate adherence to instructed precautions during ADL tasks. 2=Patient will verbalize/demonstrate understanding of assistive devices/modifications for ADL. 3=Patient will improve strength/tolerance for activity to enable patient to perform ADL's. OT Education/Plan Problem List/Assessment Assessment: Edema Discharge Recommendations Plan/Recommendations: Continue POC Treatment Plan/Plan of Care Patient would benefit from OT for education, treatment and training to promote independence in ADL's, mobility, safety and/or upper extremity function for ADL's. Plan of Care: ADL Retraining, Functional Mobility, UE Funct Exercise/Act, UE Neuromus Re-Ed/Coord Treatment Duration: Jan 30, 2020 Frequency: 5 times per week Estimated Hrs Per Day: .25 hour per day Agreement: Yes Rehab Potential: Fair Time/GCodes Start Time: 11:10 Stop Time: 11:18 Total Time Billed (hr/min): 8 Billed Treatment Time 1 visit-FA 1 (8 min) TY REAGAN Jan 24, 2020 11:23
[2020-01-24 12:00] VITALS: BP 174/88
--- NOTE | 2020-01-24 12:28 | NUR ---
CM/SS visited with the patient for oxygen needs. Plan: The patient will return home to her parents house with the address of [address] [place] [address]. The patient reports her parents will be her transportation home. DME: The patient is currently a patient of [facility] in [place]. CM/SS contacted DME and spoke with Gely about needing portable oxygen delivered to the hospital upon discharge. She verbalized understanding. CM/SS faxed the patients facesheet, H&P, O2 qualifiers (1L Continuous), and script. No other needs at this time.
--- NOTE | 2020-01-24 13:08 | Cardiology Progress Note ---
Cardiology SOAP Progress Note Subjective: Significantly improved shortness of breath. Objective: I&O/Vital Signs 01/24/20 01/24/20 01/24/20 01/24/20 01:40 04:00 07:00 07:17 Temp 36.6 Pulse 68 68 Resp 21 B/P (MAP) 158/71 (100) Pulse Ox 92 92 92 O2 Delivery Room Air Room Air Room Air 01/24/20 01/24/20 01/24/20 01/24/20 08:00 09:00 10:38 11:17 Temp 37.1 Pulse 97 Resp 18 B/P (MAP) 120/78 (92) Pulse Ox 93 93 92 92 O2 Delivery Room Air Room Air Nasal Cannula O2 Flow Rate 1.00 1.00 1.00 01/24/20 00:00 Intake Total 610 ml Output Total 550 ml Balance 60 ml Weight (Pounds): 218 Weight (Ounces): 0.0 Weight (Calculated Kilograms): 98.647152 Constitutional: appears stated age; No apparent distress; well-developed, well- nourished Respiratory: chest is bilaterally symmetric, lungs clear to auscultation, wheezing Cardiovascular: regular rate-rhythm, S1 and S2 Gastrointestional: soft, audible bowel sounds; No spleenomegaly Extremities: normal range of motion, non-tender, normal inspection, pedal edema; No clubbing, No cyanosis, No significant edema Neurologic/Psychiatric: no motor/sensory deficits, alert, normal mood/affect, oriented x 3, power is 5/5 both on sides Skin: normal color; No rash, No ulcerations Results/Procedures: Labs Laboratory Tests 01/23/20 15:33: Glucometer 217H 01/23/20 20:26: Glucometer 273H 01/24/20 04:22: White Blood Count 8.3, Red Blood Count 2.84L, Hemoglobin 8.6L, Hematocrit 28L, Mean Corpuscular Volume 100H, Mean Corpuscular Hemoglobin 30, Mean Corpuscular Hemoglobin Concent 30L, Red Cell Distribution Width 13.4, Platelet Count 280, Mean Platelet Volume 9.5, Neutrophils (%) (Auto) 77H, Lymphocytes (%) (Auto) 17, Monocytes (%) (Auto) 6, Eosinophils (%) (Auto) 0, Basophils (%) (Auto) 0, Neutrophils # (Auto) 6.4, Lymphocytes # (Auto) 1.4, Monocytes # (Auto) 0.5, Eosinophils # (Auto) 0.0, Basophils # (Auto) 0.0, Sodium Level 138, Potassium Level 3.2L, Chloride Level 100, Carbon Dioxide Level 27, Anion Gap 11, Blood Urea Nitrogen 18, Creatinine 0.94, Estimat Glomerular Filtration Rate > 60, BUN/Creatinine Ratio 19, Glucose Level 143H, Calcium Level 9.0, Phosphorus Level 2.8, Magnesium Level 1.9 01/24/20 05:52: Glucometer 158H 01/24/20 10:11: Glucometer 173H Microbiology 01/22/20 Urine Culture - Final, Complete Escherichia coli 01/22/20 MRSA Screen - Final, Complete 01/22/20 Blood Culture - Preliminary, Resulted No growth A/P: Assessment/Dx: COPD exacerbation, Acute respiratory failure, Acute on chronic diastolic congestive heart failure, Active smoking, Atrial fibrillation, History of DVT, On oral anticoagulation Plan: COPD exacerbation, acute respiratory failure, defer to the primary team. Likely multifactorial including contribution from congestive heart failure. Significantly improved shortness of breath. Acute on chronic diastolic congestive heart failure, echocardiogram done 01/23/2020 shows normal LV function with moderate diastolic dysfunction. Significant improvement with Lasix. BNP significantly elevated on admission. Active smoking, strongly recommended to quit. Atrial fibrillation, continue oral anticoagulation. History of DVT, on Xarelto. On oral anticoagulation. Patient follows with Dr. Aggarwal. Thank you for your consultation. Please call me if you have any questions. Taz Velazco MD, FACP, FACC, FSCAI, FHRS, CCDS Interventional Cardiology Cardiac Electrophysiology Vascular Medicine and Endovascular Interventions Focused Exam Lactate Level 01/22/20 06:20: Lactic Acid Level 0.78 Graciela VELAZCO MD Jan 24, 2020 13:08
== END 2020-01-24 14:48 | disposition home or self-care (01) | DRG 189 ==
LOC: EDUNIT# 05:57 → ER 05:59 → ICU 07:30 → 4TH 01-23 11:30
PROVIDERS: ADMIT Internal Medicine; ATTEND Internal Medicine
DX: J96.01 Acute respiratory failure with hypoxia (principal); J96.02 Acute respiratory failure with hypercapnia; J44.1 Chronic obstructive pulmonary disease with (acute) exacerbation; J18.9 Pneumonia, unspecified organism; J44.0 Chronic obstructive pulmonary disease with (acute) lower respiratory infection; I11.0 Hypertensive heart disease with heart failure; I50.33 Acute on chronic diastolic (congestive) heart failure; E11.65 Type 2 diabetes mellitus with hyperglycemia; T38.0X5A Adverse effect of glucocorticoids and synthetic analogues, initial encounter; I48.0 Paroxysmal atrial fibrillation; F17.210 Nicotine dependence, cigarettes, uncomplicated; E66.9 Obesity, unspecified; K21.9 Gastro-esophageal reflux disease without esophagitis; F31.9 Bipolar disorder, unspecified; G83.21 Monoplegia of upper limb affecting right dominant side; M21.372 Foot drop, left foot; Z79.4 Long term (current) use of insulin; Z86.718 Personal history of other venous thrombosis and embolism; Z79.01 Long term (current) use of anticoagulants; Z68.35 Body mass index [BMI] 35.0-35.9, adult
CPT/HCPCS: 36415; 36600; 71045; 80048; 80053; 80306; 81000; 82728; 82805; 82962; 83605; 83615; 83735; 83880; 84100; 84145; 84484; 85025; 85379; 85610; 85652; 85730; 86141; 87040; 87077; 87081; 87088; 87186; 87631; 87635; 87804; 93306; 94640; 94660; 94760; 94761

== ENCOUNTER 2020-02-29 15:07 | Outpatient (RCR) | payer BC ==
[~2020-02-29 15:07] MED LIST changes: +AMOX-358 PO; +AZIT250T12 PO; +BUPR1TAB45 SL; +FLUT12AE4 IH; +PRD20T PO
== END 2020-04-16 | disposition home or self-care (01) ==
PROVIDERS: ATTEND Emergency Medicine
DX: G82.50 Quadriplegia, unspecified (principal); E11.9 Type 2 diabetes mellitus without complications; I48.91 Unspecified atrial fibrillation; I10 Essential (primary) hypertension

== ENCOUNTER 2020-07-27 15:16 | Emergency (ER) | payer BC ==
[~2020-07-27] VITALS: Ht 165 cm; Wt 88.4 kg
[~2020-07-27 15:16] MED LIST changes: -LISI1TAB25 PO; +LISI1TAB46 PO
[2020-07-27 15:59] LABS: ABG BASE EXCESS 3.8 MMOL/L (-2.5-2.5); ABG OXYGEN SATURATION 96 % (94-100); ABG PCO2 54 MMHG (35-45); ABG PH 7.35 (7.37-7.43); ABG PO2 82 MMHG (79-93); ABG TCO2 30.5 MMOL/L (21.0-31.0); ALLENS TEST POSITIVE; PATIENT TEMP 37.6; VENTILATOR NO
[2020-07-27] MEDS ORDERED: methylPREDNISolone 125 MG (Solu-MEDROL) VIAL IV STA (16:01)
[2020-07-27] MEDS ORDERED: NS IV 1000 ML 1,000 ML IV SCH (16:01)
--- NOTE | 2020-07-27 16:13 | ED Respiratory ---
General Chief Complaint: Cough/Cold/Flu Symptoms Stated Complaint: COUGH/SOB Source: patient Exam Limitations: no limitations History of Present Illness Date Seen by Provider: Jul 27, 2020 Time Seen by Provider: 15:39 Initial Comments Patient presents to the ER by private conveyance from home with chief complaint of 5 days worsening shortness of breath cough orthopnea and sometimes phlegm. She doesn't history of COPD dependent on oxygen sleep at 2 L however recently she's been using it during the day as well sometimes upwards of 4 L/m. She's been using her DuoNeb inhaler 4 times a day as well as her Advair, Spiriva etc. She is known to Dr. JOYNER for primary care. She then denies any fever, vomiting, diarrhea, loss a since of taste or smell. She's not been on antibiotics, steroids recently. She's not had any recent hospitalization the last 90 days. The patient states she has been taking her breathing treatment with good success for about an hour or 2 and then her wheezing and shortness of air comes back. Allergies and Home Medications Allergies Coded Allergies: No Known Drug Allergies (Unverified , 04/29/19) Home Medications Albuterol Sulfate 18 Gm Hfa.aer.ad, 2 PUFF INH Q4H PRN for SHORTNESS OF BREATH, (Reported) Amoxicillin/Potassium Clav 1 Each Tablet, 1 EACH PO BID Prescribed by: BROOKLYN DUNLAP on 01/24/20 1056 Atorvastatin Calcium 40 Mg Tablet, 40 MG PO HS, (Reported) Azithromycin 250 Mg Tablet, 250 MG PO DAILY Prescribed by: BROOKLYN DUNLAP on 01/24/20 1056 Buprenorphine HCl/Naloxone HCl 1 Each Tab.subl, 1 EACH SL BID, (Reported) Fluoxetine HCl 10 Mg Tablet, 10 MG PO DAILY, (Reported) Fluticasone/Salmeterol 12 Gm Hfa.aer.ad, 0 PUFF IH RTBID Prescribed by: BROOKLYN DUNLAP on 01/24/20 1056 Furosemide 40 Mg Tablet, 40 MG PO DAILY, (Reported) Gabapentin 600 Mg Tablet, 1,200 MG PO HS, (Reported) Insulin Determir 1,000 Units/10 Ml Soln, 5 UNIT SQ HS Prescribed by: ACE DIAMOND on 10/24/19 1035 Ipratropium/Albuterol Sulfate 3 Ml Ampul.neb, 3 ML NEB QID PRN for SHORTNESS OF BREATH, (Reported) Lisinopril 10 Mg Tablet, 10 MG PO BID, (Reported) Metoprolol Tartrate 100 Mg Tablet, 150 MG PO BID, (Reported) TAKES 1 & (100MG)TABS TWICE DAILY Ondansetron 4 Mg Tab.rapdis, 4 MG PO Q4H PRN for NAUSEA/VOMITING-1ST LINE, (Reported) Potassium Chloride 20 Meq Tablet.er, 20 MEQ PO DAILY, (Reported) Prednisone 20 Mg Tab, 40 MG PO DAILY@0700 Prescribed by: BROOKLYN DUNLAP on 01/24/20 1056 Rivaroxaban 20 Mg Tablet, 20 MG PO HS, (Reported) Sennosides/Docusate Sodium 1 Each Tablet, 1 EA PO BID PRN for CONSTIPATION-1ST LINE Prescribed by: ACE DIAMOND on 10/24/19 1035 Tiotropium [place] 4 Gm Mist.inhal, 1-2 PUFF INH DAILY, (Reported) Patient Home Medication List Home Medication List Reviewed: Yes Review of Systems Review of Systems Constitutional: No chills, No fever; malaise EENTM: No ear discharge, No ear pain Respiratory: cough, phlegm, short of breath, wheezing Cardiovascular: No chest pain, No palpitations Gastrointestinal: No abdominal pain; nausea; No vomiting Genitourinary: No dysuria, No frequency Musculoskeletal: No back pain, No joint pain Skin: No pruritus, No rash Psychiatric/Neurological: Denies Anxiety, Denies Depressed, Denies Headache All Other Systems Reviewed Negative Unless Noted: Yes Past Kzwbbml-Uznrtj-Iydutb Hx Patient Social History Alcohol Use: Occasionally Uses Alcohol Beverage of Choice: Whiskey Recreational Drug Use: No Smoking Status: Current Everyday Smoker Type Used: Cigarettes 2nd Hand Smoke Exposure: Yes Recent Hopitalizations: No Immunizations Up To Date Tetanus Booster (TDap): Unknown Seasonal Allergies Seasonal Allergies: Yes Past Medical History Surgeries: Yes Hysterectomy Respiratory: Yes Pneumonia, Chronic Bronchitis, COPD Cardiac: Yes Atrial Fibrillation, Hypertension Neurological: Yes Paralysis 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 Disorders: Yes Female 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 Disorders: Denies HEALTH WORKERS History: Menopausal Sexually Transmitted Disease: No HIV/AIDS: No Genitourinary: Yes UTI-Chronic Gastrointestinal: Yes Gastroesophageal Reflux Musculoskeletal: Yes Endocrine: Yes Diabetes, Insulin dep HEENT: No Cancer: No Psychosocial: Yes Bipolar, Depression Integumentary: No Blood Disorders: No Adverse Reaction/Blood Tranf: No Family Medical History Cerebrovascular accident (CVA) 19 FATHER, Onset:60 years & older FH: testicular cancer G8 BROTHER, Onset:30's - 40 Hypertension 19 FATHER, Onset:Unknown 19 MOTHER, Onset:Unknown G8 BROTHER, Onset:Unknown G8 BROTHER, Onset:Unknown Myocardial infarction 19 FATHER, Onset:40's - 50 Heart Disease, Hypertension Physical Exam Vital Signs - First Documented 07/27/20 07/27/20 15:39 17:02 Temp 37.2 Pulse 89 Resp 20 B/P (MAP) 196/111 (139) Pulse Ox 95 O2 Delivery Nasal Cannula O2 Flow Rate 2.00 Capillary Refill : Height: 5'5.00" Weight: 218lbs. 0.0oz. 98.783588mv; 35.00 BMI Method:Stated General Appearance: WD/WN, mild distress Eyes: Bilateral Eye Normal Inspection, Bilateral Eye PERRL, Bilateral Eye EOMI HEENT: PERRL/EOMI, TMs normal, pharynx normal Neck: full range of motion, normal inspection Respiratory: no accessory muscle use, respiratory distress (mild with oxygen sats 88% on room air and she is dependent on 2 L at baseline. She was able to walk in under her own power.), wheezing Cardiovascular: normal peripheral pulses, regular rate, rhythm (88) Gastrointestinal: normal bowel sounds, non tender, soft Extremities: normal range of motion, non-tender, normal inspection, normal capillary refill Neurologic/Psychiatric: alert, normal mood/affect, oriented x 3 Skin: normal color, warm/dry Focused Exam Lactate Level 07/27/20 16:10: Lactic Acid Level 1.63 Lactic Acid Level Laboratory Tests Test 07/27/20 16:10 Lactic Acid Level 1.63 MMOL/L (0.50-2.00) Procedures/Interventions Date of ETT Placement: Oct 07, 2019 Time of ETT Placement: 0100 Progress/Results/Core Measures Suspected Sepsis SIRS Temperature: Pulse: Respiratory Rate: Laboratory Tests 07/27/20 16:10: White Blood Count 6.8 Blood Pressure / Mean: 07/27/20 16:10: Lactic Acid Level 1.63 Laboratory Tests 07/27/20 16:10: Creatinine 1.00, INR Comment 2.2H, Platelet Count 291, Total Bilirubin 0.5 Results/Orders Lab Results Laboratory Tests Test 07/27/20 15:49 07/27/20 16:02 07/27/20 16:10 Range/Units Blood Gas Puncture Site LEFT RADIAL Blood Gas Patient Temperature 37.6 Arterial Blood pH 7.35 L 7.37-7.43 Arterial Blood Partial Pressure CO2 54 H 35-45 MMHG Arterial Blood Partial Pressure O2 82 79-93 MMHG Arterial Blood HCO3 29 H 23-27 MMOL/L Arterial Blood Total CO2 30.5 21.0-31.0 MMOL/L Arterial Blood Oxygen Saturation 96 94-100 % Arterial Blood Base Excess 3.8 H -2.5-2.5 MMOL/L Jame Test POSITIVE Blood Gas Ventilator Setting NO Blood Gas Inspired Oxygen N/A Coronavirus 2018 (DHARA) Negative Negative White Blood Count 6.8 4.3-11.0 10^3/uL Red Blood Count 3.80 3.80-5.11 10^6/uL Hemoglobin 10.7 L 11.5-16.0 g/dL Hematocrit 35 35-52 % Mean Corpuscular Volume 93 80-99 fL Mean Corpuscular Hemoglobin 28 25-34 pg Mean Corpuscular Hemoglobin Concent 30 L 32-36 g/dL Red Cell Distribution Width 16.4 H 10.0-14.5 % Platelet Count 291 130-400 10^3/uL Mean Platelet Volume 9.1 9.0-12.2 fL Immature Granulocyte % (Auto) 0 % Neutrophils (%) (Auto) 68 42-75 % Lymphocytes (%) (Auto) 24 12-44 % Monocytes (%) (Auto) 5 0-12 % Eosinophils (%) (Auto) 2 0-10 % Basophils (%) (Auto) 1 0-10 % Neutrophils # (Auto) 4.7 1.8-7.8 10^3/uL Lymphocytes # (Auto) 1.6 1.0-4.0 10^3/uL Monocytes # (Auto) 0.3 0.0-1.0 10^3/uL Eosinophils # (Auto) 0.1 0.0-0.3 10^3/uL Basophils # (Auto) 0.0 0.0-0.1 10^3/uL Immature Granulocyte # (Auto) 0.0 0.0-0.1 10^3/uL Prothrombin Time 24.9 H 12.2-14.7 SEC INR Comment 2.2 H 0.8-1.4 Activated Partial Thromboplast Time 41 H 24-35 SEC Sodium Level 141 135-145 MMOL/L Potassium Level 4.1 3.6-5.0 MMOL/L Chloride Level 101 98-107 MMOL/L Carbon Dioxide Level 27 21-32 MMOL/L Anion Gap 13 5-14 MMOL/L Blood Urea Nitrogen 16 7-18 MG/DL Creatinine 1.00 0.60-1.30 MG/DL Estimat Glomerular Filtration Rate 58 BUN/Creatinine Ratio 16 Glucose Level 104 70-105 MG/DL Lactic Acid Level 1.63 0.50-2.00 MMOL/L Calcium Level 9.0 8.5-10.1 MG/DL Corrected Calcium 9.0 8.5-10.1 MG/DL Total Bilirubin 0.5 0.1-1.0 MG/DL Aspartate Amino Transf (AST/SGOT) 84 H 5-34 U/L Alanine Aminotransferase (ALT/SGPT) 46 0-55 U/L Alkaline Phosphatase 164 H 40-136 U/L C-Reactive Protein High Sensitivity 1.87 H 0.00-0.50 MG/DL B-Type Natriuretic Peptide 229.6 H <100.0 PG/ML Total Protein 7.1 6.4-8.2 GM/DL Albumin 4.0 3.2-4.5 GM/DL Micro Results Microbiology 07/27/20 Influenza Types A,B Antigen (DEISY) - Final, Complete My Orders Orders - WU HUNG Arterial Blood Gas (07/27/20 15:51) Ed Iv/Invasive Line Start (07/27/20 16:01) Ns Iv 1000 Ml (Sodium Chloride 0.9%) (07/27/20 16:01) Albuterol/Ipra Inhalation Soln (Duoneb I (07/27/20 16:15) Methylprednisolone Sod Succ (Solu-Medrol (07/27/20 16:01) Svn Small Volume Nebulizer (07/27/20 16:01) Cbc With Automated Diff (07/27/20 16:01) Comprehensive Metabolic Panel (07/27/20 16:01) Blood Culture (07/27/20 16:01) Sputum Culture (07/27/20 16:01) Urinalysis (07/27/20 16:01) Urine Culture (07/27/20 16:01) Protime With Inr (07/27/20 16:01) Partial Thromboplastin Time (07/27/20 16:01) Chest 1 View, Ap/Pa Only (07/27/20 16:01) Ed Iv/Invasive Line Start (07/27/20 16:01) Ed Iv/Invasive Line Start (07/27/20 16:01) Vital Signs Adult Sepsis Patie Q15M (07/27/20 16:01) Ondansetron Injection (Zofran Injectio (07/27/20 16:15) O2 (07/27/20 16:01) Remove Rings In Anticipation O (07/27/20 16:01) Lactic Acid Analyzer (07/27/20 16:01) Influenza A And B Antigens (07/27/20 16:01) Ceftriaxone For Iv Use (Rocephin For I (07/27/20 16:15) Azithromycin Injection (Zithromax Inject (07/27/20 16:15) Procalcitonin (Pct) (07/27/20 16:01) Hs C Reactive Protein (07/27/20 16:01) Covid 19 Inhouse Test (07/27/20 16:01) BNP (07/27/20 16:13) Medications Given in ED Current Medications Medications Dose Ordered Sig/Chery Route Start Time Stop Time Status Last Admin Dose Admin Albuterol/ Ipratropium 3 ml ONCE ONCE INH 07/27/20 16:15 07/27/20 16:16 DC 07/27/20 16:22 3 ML Ondansetron HCl 4 mg PRN PRN IV 07/27/20 16:15 07/27/20 16:31 DC 07/27/20 16:27 4 MG Vital Signs/I&O 07/27/20 07/27/20 07/27/20 15:39 17:02 17:03 Temp 37.2 37.2 Pulse 89 85 Resp 20 B/P (MAP) 196/111 (139) 169/86 Pulse Ox 95 94 94 O2 Delivery Nasal Cannula Nasal Cannula Nasal Cannula O2 Flow Rate 2.00 2.00 Capillary Refill : Progress Note : Time: 16:21 Progress Note Give her a DuoNeb and some steroids for her obvious COPD exacerbation with some mild CO2 retention of 54 and borderline acidemia on ABG. We will do some labs and nasal swabs to rule out bacterial and viral pneumonias. When cover with broad-spectrum antibiotics as she does have tachypnea K she has an elevated white count. We'll give her some steroids and Rocephin/azithromycin. She's not 100% certain she wants to stay in the hospital and if we can rule out pneumonia as it may be reasonable for her to attempt treatment at home on steroids and increased breathing treatments. She does have oxygen available to her at home. She's only requiring 2 L to stay 94-98%. Diagnostic Imaging Diagonstic Imaging: Xray Plain Films/CT/US/NM/MRI: chest Comments [facility] [place], [place] NAME: ZEKE MEDELLIN [facility] REC#: [id number] PT STATUS: REG ER : 1965 PHYSICIAN: WU HUNG MD ADMIT DATE: 07/27/20/ER Signed Date of Exam:07/27/20 CHEST 1 VIEW, AP/PA ONLY INDICATION: Cough and shortness of breath, influenza A. TECHNIQUE: Frontal chest obtained at 04:33 p.m. and compared to 01/23/2020. FINDINGS: There is cardiomegaly. There is central vascular congestion which appears chronic. There is no pneumothorax or pleural fluid. There are chronic-appearing increased basilar markings but no definite acute infiltrate. IMPRESSION: Cardiomegaly and chronic central vascular congestion. Chronic-appearing increased basilar markings with no definite acute infiltrate. Dictated by: Dictated on workstation # [id number] Dict: 07/27/201644 Trans: 07/27/201648 [id number] Interpreted by: ALLI BARRERA MD Electronically signed by: ALLI BARRERA MD 07/27/209 Reviewed: Reviewed by Me Departure Impression Primary Impression: Influenza A Additional Impression: COPD with exacerbation Disposition: HOME, SELF-CARE Condition: Improved Departure-Patient Inst. Decision time for Depature: 17:00 Referrals: BROOKE JOYNER DO (PCP/Family) Primary Care Physician Patient Instructions: Exacerbation of COPD, Flu, Adult (DC) Add. Discharge Instructions: You're outside of the window for Tamiflu to be very helpful. Influenza A usually last 1-2 weeks. Steroids 20 mg daily starting tomorrow for the next 5 days. Azithromycin if your symptoms worsen 2 tablets on the first day followed by one tablet daily for 5 days. Ondansetron one tablet under the tongue every 6 hours as necessary for nausea or vomiting. Return to the nearest ER promptly if you experience shortness of air, chest pain or other worrisome symptoms. Follow-up with your primary care team in the next 2-4 weeks. Tylenol 1000 mg every 8 hours as necessary for fever and/or body aches. All discharge instructions reviewed with patient and/or family. Voiced understanding. Scripts Azithromycin (Azithromycin) 250 Mg Tablet 250 MG PO UD, #6 TAB 0 Refills TAKE 2 TABLETS ON DAY ONE THEN TAKE 1 TABLET DAILY FOR FOUR MORE DAYS Prov: WU HUNG 07/27/20 Ondansetron (Ondansetron Odt) 4 Mg Tab.rapdis 4 MG PO Q6H PRN for NAUSEA/VOMITING, #8 TAB 0 Refills Prov: WU HUNG 07/27/20 Prednisone (Prednisone) 20 Mg Tab 40 MG PO DAILY for 5 Days, #10 TAB 0 Refills Prov: WU HUNG 07/27/20 WU HUNG Jul 27, 2020 16:13
[2020-07-27] MEDS ORDERED: AZITHROMYCIN INJECTION 500 MG in NS (IVPB) 250 ML IV ONE (16:15)
[2020-07-27] MEDS ORDERED: cefTRIAXone FOR IV USE 1,000 MG in WATER (STERILE) FOR INJECTION 10 ML IV ONE (16:15)
[2020-07-27] MEDS ORDERED: RT-ALBUTEROL/IPRATROPIUM 3 ML (DUONEB) VIAL INH ONE (16:15)
[2020-07-27] MEDS ORDERED: ONDANSETRON 4 MG/2 ML (SDV) Z0FRAN IV PRN (16:15)
[2020-07-27 16:30] LABS: BASOPHILS % (AUTO) 1 % (0-10); EOSINOPHILS # (AUTO) 0.1 10^3/uL (0.0-0.3); EOSINOPHILS % (AUTO) 2 % (0-10); HEMATOCRIT 35 % (35-52); HEMOGLOBIN 10.7 g/dL (11.5-16.0); LYMPHOCYTES # (AUTO) 1.6 10^3/uL (1.0-4.0); LYMPHOCYTES % (AUTO) 24 % (12-44); MEAN CORPUSCULAR HEMOGLOBIN 28 pg (25-34); MEAN CORPUSCULAR HGB CONC 30 g/dL (32-36); MEAN CORPUSCULAR VOLUME 93 fL (80-99); MEAN PLATELET VOLUME 9.1 fL (9.0-12.2); MONOCYTES # (AUTO) 0.3 10^3/uL (0.0-1.0); MONOCYTES % (AUTO) 5 % (0-12); NEUTROPHILS # (AUTO) 4.7 10^3/uL (1.8-7.8); NEUTROPHILS % (AUTO) 68 % (42-75); PLATELET COUNT 291 10^3/uL (130-400); WHITE BLOOD COUNT 6.8 10^3/uL (4.3-11.0)
[2020-07-27 16:40] LABS: POTASSIUM 4.1 MMOL/L (3.6-5.0)
[2020-07-27 16:43] LABS: TOTAL PROTEIN 7.1 GM/DL (6.4-8.2)
[2020-07-27 16:44] LABS: BILIRUBIN,TOTAL 0.5 MG/DL (0.1-1.0)
--- NOTE | 2020-07-27 16:48 | Diagnostic Imaging Report ---
INDICATION: Cough and shortness of breath, influenza A. TECHNIQUE: Frontal chest obtained at 04:33 p.m. and compared to 01/23/2020. FINDINGS: There is cardiomegaly. There is central vascular congestion which appears chronic. There is no pneumothorax or pleural fluid. There are chronic-appearing increased basilar markings but no definite acute infiltrate. IMPRESSION: Cardiomegaly and chronic central vascular congestion. Chronic-appearing increased basilar markings with no definite acute infiltrate. Dictated by: Dictated on workstation # [id number]
[2020-07-27 17:02] LABS: PROTHROMBIN TIME PATIENT 24.9 SEC (12.2-14.7)
[2020-07-27 17:03] LABS: INR 2.2 (0.8-1.4)
[2020-07-27] MEDS ORDERED: PRD20T PO (17:20)
[2020-07-27] MEDS ORDERED: ONDA4TAB11 PO (17:20)
[2020-07-27] MEDS ORDERED: AZIT250T12 PO (17:20)
[2020-07-27 17:37] VITALS: BP 170/92
== END 2020-07-27 17:37 | disposition home or self-care (01) ==
LOC: EDUNIT# 15:16 → ER 15:17
DX: J10.1 Influenza due to other identified influenza virus with other respiratory manifestations (principal); J44.1 Chronic obstructive pulmonary disease with (acute) exacerbation; I10 Essential (primary) hypertension; F32.9 Major depressive disorder, single episode, unspecified; E11.9 Type 2 diabetes mellitus without complications; Z20.828 Contact with and (suspected) exposure to other viral communicable diseases; Z82.49 Family history of ischemic heart disease and other diseases of the circulatory system; Z80.43 Family history of malignant neoplasm of testis; F17.210 Nicotine dependence, cigarettes, uncomplicated; Z79.52 Long term (current) use of systemic steroids; Z79.4 Long term (current) use of insulin; Z79.01 Long term (current) use of anticoagulants
CPT/HCPCS: 71045; 80053; 82805; 83605; 83880; 84145; 85025; 85610; 85730; 86141; 87040; 87804; 99285; U0002; 36415; 87635

== ENCOUNTER 2020-08-29 20:44 | Emergency (ER) | payer BC ==
[~2020-08-29] VITALS: Ht 165 cm; Wt 98.8 kg
[~2020-08-29 20:44] MED LIST changes: -AMIO200T4 PO; +AMIO200T6 PO; +AMLO-250 PO; -AMLO5TAB9 PO
[2020-08-29 21:27] LABS: BASOPHILS % (AUTO) 0 % (0-10); EOSINOPHILS # (AUTO) 0.1 10^3/uL (0.0-0.3); EOSINOPHILS % (AUTO) 1 % (0-10); HEMATOCRIT 37 % (35-52); HEMOGLOBIN 10.1 g/dL (11.5-16.0); LYMPHOCYTES # (AUTO) 2.1 10^3/uL (1.0-4.0); LYMPHOCYTES % (AUTO) 19 % (12-44); MEAN CORPUSCULAR HEMOGLOBIN 26 pg (25-34); MEAN CORPUSCULAR HGB CONC 28 g/dL (32-36); MEAN CORPUSCULAR VOLUME 96 fL (80-99); MEAN PLATELET VOLUME 9.6 fL (9.0-12.2); MONOCYTES # (AUTO) 0.6 10^3/uL (0.0-1.0); MONOCYTES % (AUTO) 6 % (0-12); NEUTROPHILS # (AUTO) 8.4 10^3/uL (1.8-7.8); NEUTROPHILS % (AUTO) 74 % (42-75); PLATELET COUNT 319 10^3/uL (130-400); WHITE BLOOD COUNT 11.3 10^3/uL (4.3-11.0)
--- NOTE | 2020-08-29 21:32 | ED Respiratory ---
General Chief Complaint: Respiratory Problems Stated Complaint: HEADACHE/BODYACHES/SOA/FEVER Source: patient Exam Limitations: no limitations History of Present Illness Date Seen by Provider: Aug 29, 2020 Time Seen by Provider: 21:31 Initial Comments To ER with headache and body aches. This been ongoing since she had influenza A back in July. She comes in tonight because of some swelling of both lower extremity that has caused the right lower extremity to weep. She is on Eliquis. She is dependent on supplemental oxygen at 2 L per nasal cannula at home [id number]. Timing/Duration: just prior to arrival Severity: moderate Associated Symptoms: cough, shortness of breath, wheezing Allergies and Home Medications Allergies Coded Allergies: No Known Drug Allergies (Unverified , 04/29/19) Home Medications Albuterol Sulfate 18 Gm Hfa.aer.ad, 2 PUFF INH Q4H PRN for SHORTNESS OF BREATH, (Reported) Amoxicillin/Potassium Clav 1 Each Tablet, 1 EACH PO BID Prescribed by: BROOKLYN DUNLAP on 01/24/20 1056 Atorvastatin Calcium 40 Mg Tablet, 40 MG PO HS, (Reported) Azithromycin 250 Mg Tablet, 250 MG PO DAILY Prescribed by: BROOKLYN DUNLAP on 01/24/20 1056 Azithromycin 250 Mg Tablet, 250 MG PO UD TAKE 2 TABLETS ON DAY ONE THEN TAKE 1 TABLET DAILY FOR FOUR MORE DAYS Prescribed by: WU HUNG on 07/27/20 1720 Buprenorphine HCl/Naloxone HCl 1 Each Tab.subl, 1 EACH SL BID, (Reported) Fluoxetine HCl 10 Mg Tablet, 10 MG PO DAILY, (Reported) Fluticasone/Salmeterol 12 Gm Hfa.aer.ad, 0 PUFF IH RTBID Prescribed by: BROOKLYN DUNLAP on 01/24/20 1056 Furosemide 40 Mg Tablet, 40 MG PO DAILY, (Reported) Gabapentin 600 Mg Tablet, 1,200 MG PO HS, (Reported) Insulin Determir 1,000 Units/10 Ml Soln, 5 UNIT SQ HS Prescribed by: ACE DIAMOND on 10/24/19 1035 Ipratropium/Albuterol Sulfate 3 Ml Ampul.neb, 3 ML NEB QID PRN for SHORTNESS OF BREATH, (Reported) Lisinopril 10 Mg Tablet, 10 MG PO BID, (Reported) Metoprolol Tartrate 100 Mg Tablet, 150 MG PO BID, (Reported) TAKES 1 & (100MG)TABS TWICE DAILY Ondansetron 4 Mg Tab.rapdis, 4 MG PO Q4H PRN for NAUSEA/VOMITING-1ST LINE, (Reported) Ondansetron 4 Mg Tab.rapdis, 4 MG PO Q6H PRN for NAUSEA/VOMITING Prescribed by: WU HUNG on 07/27/20 1720 Potassium Chloride 20 Meq Tablet.er, 20 MEQ PO DAILY, (Reported) Prednisone 20 Mg Tab, 40 MG PO DAILY@0700 Prescribed by: BROOKLYN DUNLAP on 01/24/20 1056 Prednisone 20 Mg Tab, 40 MG PO DAILY Prescribed by: WU HUNG on 07/27/20 1720 Rivaroxaban 20 Mg Tablet, 20 MG PO HS, (Reported) Sennosides/Docusate Sodium 1 Each Tablet, 1 EA PO BID PRN for CONSTIPATION-1ST LINE Prescribed by: ACE DIAMOND on 10/24/19 1035 Tiotropium [place] 4 Gm Mist.inhal, 1-2 PUFF INH DAILY, (Reported) Patient Home Medication List Home Medication List Reviewed: Yes Review of Systems Review of Systems Constitutional: see HPI; No chills, No fever EENTM: see HPI Respiratory: no symptoms reported, see HPI, cough Cardiovascular: no symptoms reported Genitourinary: no symptoms reported Musculoskeletal: no symptoms reported Skin: no symptoms reported Psychiatric/Neurological: No Symptoms Reported Hematologic/Lymphatic: No Symptoms Reported Past Tqpytxi-Kiyxzr-Rnodss Hx Patient Social History Alcohol Beverage of Choice: Whiskey Type Used: Cigarettes 2nd Hand Smoke Exposure: Yes Recent Foreign Travel: No Contact w/Someone Who Travel: No Recent Hopitalizations: No Immunizations Up To Date Tetanus Booster (TDap): Unknown Seasonal Allergies Seasonal Allergies: Yes Past Medical History Surgeries: Yes Hysterectomy Respiratory: Yes Pneumonia, Chronic Bronchitis, COPD Cardiac: Yes Atrial Fibrillation, Hypertension Neurological: Yes Paralysis 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 Disorders: Yes Female 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 Sexually Transmitted Disease: No HIV/AIDS: No Genitourinary: Yes UTI-Chronic Gastrointestinal: Yes Gastroesophageal Reflux Musculoskeletal: Yes Endocrine: Yes Diabetes, Insulin dep HEENT: No Cancer: No Psychosocial: Yes Bipolar, Depression Integumentary: No Blood Disorders: No Adverse Reaction/Blood Tranf: No Family Medical History Cerebrovascular accident (CVA) 19 FATHER, Onset:60 years & older FH: testicular cancer G8 BROTHER, Onset:30's - 40 Hypertension 19 FATHER, Onset:Unknown 19 MOTHER, Onset:Unknown G8 BROTHER, Onset:Unknown G8 BROTHER, Onset:Unknown Myocardial infarction 19 FATHER, Onset:40's - 50 Heart Disease, Hypertension Physical Exam Capillary Refill : Height: 5'5.00" Weight: 218lbs. 0.0oz. 98.423321cf; 32.00 BMI Method:Stated General Appearance: WD/WN, no apparent distress, other (91% on her baseline 2 L.) Eyes: Bilateral Eye Normal Inspection, Bilateral Eye PERRL, Bilateral Eye EOMI HEENT: PERRL/EOMI, normal ENT inspection Neck: non-tender, full range of motion Respiratory: lungs clear, normal breath sounds, no respiratory distress, no accessory muscle use Cardiovascular: regular rate, rhythm, no murmur Gastrointestinal: normal bowel sounds, non tender, soft Extremities: normal range of motion Neurologic/Psychiatric: alert, normal mood/affect, oriented x 3 Skin: normal color, warm/dry Procedures/Interventions Date of ETT Placement: Oct 07, 2019 Time of ETT Placement: 99 Progress/Results/Core Measures Suspected Sepsis SIRS Temperature: Pulse: Respiratory Rate: Laboratory Tests 08/29/20 21:18: White Blood Count 11.3H Blood Pressure / Mean: Laboratory Tests 08/29/20 21:18: Creatinine 0.94, Platelet Count 319, Total Bilirubin 0.6 Results/Orders Lab Results Laboratory Tests Test 08/29/20 21:18 08/29/20 21:24 Range/Units White Blood Count 11.3 H 4.3-11.0 10^3/uL Red Blood Count 3.83 3.80-5.11 10^6/uL Hemoglobin 10.1 L 11.5-16.0 g/dL Hematocrit 37 35-52 % Mean Corpuscular Volume 96 80-99 fL Mean Corpuscular Hemoglobin 26 25-34 pg Mean Corpuscular Hemoglobin Concent 28 L 32-36 g/dL Red Cell Distribution Width 18.2 H 10.0-14.5 % Platelet Count 319 130-400 10^3/uL Mean Platelet Volume 9.6 9.0-12.2 fL Immature Granulocyte % (Auto) 1 % Neutrophils (%) (Auto) 74 42-75 % Lymphocytes (%) (Auto) 19 12-44 % Monocytes (%) (Auto) 6 0-12 % Eosinophils (%) (Auto) 1 0-10 % Basophils (%) (Auto) 0 0-10 % Neutrophils # (Auto) 8.4 H 1.8-7.8 10^3/uL Lymphocytes # (Auto) 2.1 1.0-4.0 10^3/uL Monocytes # (Auto) 0.6 0.0-1.0 10^3/uL Eosinophils # (Auto) 0.1 0.0-0.3 10^3/uL Basophils # (Auto) 0.0 0.0-0.1 10^3/uL Immature Granulocyte # (Auto) 0.1 0.0-0.1 10^3/uL Sodium Level 140 135-145 MMOL/L Potassium Level 3.3 L 3.6-5.0 MMOL/L Chloride Level 102 98-107 MMOL/L Carbon Dioxide Level 23 21-32 MMOL/L Anion Gap 15 H 5-14 MMOL/L Blood Urea Nitrogen 12 7-18 MG/DL Creatinine 0.94 0.60-1.30 MG/DL Estimat Glomerular Filtration Rate > 60 BUN/Creatinine Ratio 13 Glucose Level 124 H 70-105 MG/DL Calcium Level 9.0 8.5-10.1 MG/DL Corrected Calcium 9.1 8.5-10.1 MG/DL Total Bilirubin 0.6 0.1-1.0 MG/DL Aspartate Amino Transf (AST/SGOT) 34 5-34 U/L Alanine Aminotransferase (ALT/SGPT) 63 H 0-55 U/L Alkaline Phosphatase 177 H 40-136 U/L C-Reactive Protein High Sensitivity 3.32 H 0.00-0.50 MG/DL B-Type Natriuretic Peptide 434.1 H <100.0 PG/ML Total Protein 6.9 6.4-8.2 GM/DL Albumin 3.9 3.2-4.5 GM/DL Blood Gas Puncture Site RGHT RAD Blood Gas Patient Temperature 97.6 Arterial Blood pH 7.37 7.37-7.43 Arterial Blood Partial Pressure CO2 47 H 35-45 MMHG Arterial Blood Partial Pressure O2 54 L 79-93 MMHG Arterial Blood HCO3 27 23-27 MMOL/L Arterial Blood Total CO2 28.1 21.0-31.0 MMOL/L Arterial Blood Oxygen Saturation 87 L 94-100 % Arterial Blood Base Excess 1.7 -2.5-2.5 MMOL/L Jame Test POS Blood Gas Ventilator Setting NO Blood Gas Inspired Oxygen 2L My Orders Orders - SAL BONILLA APRN Cbc With Automated Diff (08/29/20 20:55) Comprehensive Metabolic Panel (08/29/20 20:55) Hs C Reactive Protein (08/29/20 20:55) Ed Iv/Invasive Line Start (08/29/20 20:55) Procalcitonin (Pct) (08/29/20 20:55) Chest 1 View, Ap/Pa Only (08/29/20 20:55) BNP (08/29/20 21:21) Thyroid Stimulating Hormone (08/29/20 21:21) Free T4 (Free Thyroxine) (08/29/20 21:21) Ekg Tracing (08/29/20 21:21) Covid 19 Inhouse Test (08/29/20 21:21) Arterial Blood Gas (08/29/20 21:24) Potassium Chloride (Tablet) (Klor Con Ta (08/29/20 22:45) Rocephin 1 Gm Iv (1x Dose) (08/29/20 22:45) Vital Signs/I&O Capillary Refill : Diagnostic Imaging Diagonstic Imaging: Xray Plain Films/CT/US/NM/MRI: chest Comments NAME: ZEKE MEDELLIN [facility] REC#: [id number] PT STATUS: REG ER : 1965 PHYSICIAN: SAL BONILLA APRN ADMIT DATE: 08/29/20/ER Draft Date of Exam:08/29/20 CHEST 1 VIEW, AP/PA ONLY INDICATION: Cough. EXAMINATION: Portable erect AP chest at 9:22 p.m. FINDINGS: The cardiomegaly and the coarse perihilar markings, seen on the prior exam of 07/27/2020, are again evident and not significantly changed. There is still no new area of increased density to suggest acute pneumonia. There is no evidence for acute pulmonary edema either. The mediastinum is not widened. The osseous structures are intact. IMPRESSION: There is cardiomegaly and chronic pulmonary disease but there is no acute cardiopulmonary abnormality identified. Dictated on workstation # [id number] Dict: 08/29/[id number] Trans: 08/29/202201 [facility] [id number] Interpreted by: EMY BUI MD Electronically signed by: Departure Communication (Admissions) Because of the slight erythema of both lower committees I will add an antibiotic as well as something that will cover for COPD exacerbation. Treatment with some steroids, discharged home, follow-up next week. Impression Primary Impression: COPD with exacerbation Disposition: HOME, SELF-CARE Condition: Stable Departure-Patient Inst. Decision time for Depature: 22:33 Referrals: BROOKE JOYNER DO (PCP/Family) Primary Care Physician Patient Instructions: Exacerbation of COPD Add. Discharge Instructions: 1. Take an extra dose of your Lasix when you get home. 40 mg. Take the steroid and antibiotics as directed. Return to ER for any worsening. Follow-up with your doctor next week for recheck. All discharge instructions reviewed with patient and/or family. Voiced under standing. Scripts Prednisone (Prednisone) 20 Mg Tab 40 MG PO DAILY, #6 TAB 0 Refills Prov: SAL BONILLA APRN 08/29/20 Amoxicillin/Potassium Clav (Augmentin 875-125 Tablet) 1 Each Tablet 1 EACH PO BID, #14 TAB 0 Refills Prov: SAL BONILLA APRN 08/29/20 SAL BONILLA APRN Aug 29, 2020 21:32
[2020-08-29 21:45] LABS: ABG BASE EXCESS 1.7 MMOL/L (-2.5-2.5); ABG OXYGEN SATURATION 87 % (94-100); ABG PCO2 47 MMHG (35-45); ABG PH 7.37 (7.37-7.43); ABG PO2 54 MMHG (79-93); ABG TCO2 28.1 MMOL/L (21.0-31.0)
--- NOTE | 2020-08-29 22:02 | Diagnostic Imaging Report ---
INDICATION: Cough. EXAMINATION: Portable erect AP chest at 9:22 p.m. FINDINGS: The cardiomegaly and the coarse perihilar markings, seen on the prior exam of 07/27/2020, are again evident and not significantly changed. There is still no new area of increased density to suggest acute pneumonia. There is no evidence for acute pulmonary edema either. The mediastinum is not widened. The osseous structures are intact. IMPRESSION: There is cardiomegaly and chronic pulmonary disease but there is no acute cardiopulmonary abnormality identified. Dictated by: Dictated on workstation # [id number]
[2020-08-29 22:06] LABS: ALLENS TEST POS; INSPIRED O2 2L; PATIENT TEMP 97.6; VENTILATOR NO
[2020-08-29 22:21] LABS: ALANINE AMINOTRANSFERASE 63 U/L (0-55); ALBUMIN 3.9 GM/DL (3.2-4.5); ALKALINE PHOSPHATASE 177 U/L (40-136); BILIRUBIN,TOTAL 0.6 MG/DL (0.1-1.0); BUN/CREATININE RATIO 13; CARBON DIOXIDE 23 MMOL/L (21-32); CHLORIDE 102 MMOL/L (98-107); CREATININE SERUM 0.94 MG/DL (0.60-1.30); GFR ESTIMATED > 60; GLUCOSE 124 MG/DL (70-105); POTASSIUM 3.3 MMOL/L (3.6-5.0); SODIUM 140 MMOL/L (135-145); TOTAL PROTEIN 6.9 GM/DL (6.4-8.2)
[2020-08-29] MEDS ORDERED: PRD20T PO (22:35)
[2020-08-29] MEDS ORDERED: AMOX-358 PO (22:35)
[2020-08-29 22:44] LABS: FREE T4 (FREE THYROXINE) 1.33 NG/DL (0.70-1.48)
[2020-08-29] MEDS ORDERED: KCL 10 MEQ TAB (MICRO K) PO ONE (22:45)
[2020-08-29] MEDS ORDERED: predniSONE 20 MG TAB PO ONE (22:45)
[2020-08-29] MEDS ORDERED: cefTRIAXone FOR IV USE 1,000 MG in WATER (STERILE) FOR INJECTION 10 ML IV ONE ×4 (22:45)
[2020-08-29 23:17] VITALS: BP 113/96
== END 2020-08-29 23:17 | disposition home or self-care (01) ==
LOC: EDUNIT# 20:44 → ER 20:46
DX: J44.1 Chronic obstructive pulmonary disease with (acute) exacerbation (principal); I48.91 Unspecified atrial fibrillation; E11.9 Type 2 diabetes mellitus without complications; I10 Essential (primary) hypertension; F32.9 Major depressive disorder, single episode, unspecified; Z20.828 Contact with and (suspected) exposure to other viral communicable diseases; Z82.49 Family history of ischemic heart disease and other diseases of the circulatory system; Z80.43 Family history of malignant neoplasm of testis; Z77.22 Contact with and (suspected) exposure to environmental tobacco smoke (acute) (chronic); Z79.01 Long term (current) use of anticoagulants; Z79.52 Long term (current) use of systemic steroids; Z79.4 Long term (current) use of insulin
CPT/HCPCS: 71045; 80053; 82805; 83880; 84145; 84439; 84443; 85025; 86141; 99285; U0002; 36415; 87635

== ENCOUNTER 2020-09-14 19:44 | Emergency (ER) | payer BC ==
[~2020-09-14] VITALS: Ht 165 cm; Wt 98.8 kg
[2020-09-14 20:15] LABS: BASOPHILS # (AUTO) 0.1 10^3/uL (0.0-0.1); BASOPHILS % (AUTO) 0 % (0-10); EOSINOPHILS # (AUTO) 0.2 10^3/uL (0.0-0.3); EOSINOPHILS % (AUTO) 2 % (0-10); HEMATOCRIT 35 % (35-52); HEMOGLOBIN 9.9 g/dL (11.5-16.0); LYMPHOCYTES # (AUTO) 2.6 10^3/uL (1.0-4.0); LYMPHOCYTES % (AUTO) 23 % (12-44); MEAN CORPUSCULAR HEMOGLOBIN 25 pg (25-34); MEAN CORPUSCULAR HGB CONC 28 g/dL (32-36); MEAN CORPUSCULAR VOLUME 89 fL (80-99); MEAN PLATELET VOLUME 9.8 fL (9.0-12.2); MONOCYTES # (AUTO) 0.6 10^3/uL (0.0-1.0); MONOCYTES % (AUTO) 5 % (0-12); NEUTROPHILS # (AUTO) 8.1 10^3/uL (1.8-7.8); NEUTROPHILS % (AUTO) 70 % (42-75); PLATELET COUNT 424 10^3/uL (130-400); WHITE BLOOD COUNT 11.6 10^3/uL (4.3-11.0)
--- NOTE | 2020-09-14 20:21 | ED Lower Extremity ---
General Chief Complaint: Lower Extremity Stated Complaint: BI LAT LEG SWOLLEN, LEAKING FLUID Nursing Triage Note: bilateral leg swelling/redness/weeping x2 weeks. worse x1 week. Nursing Sepsis Screen: No Definite Risk Source: patient Exam Limitations: no limitations History of Present Illness Date Seen by Provider: Sep 14, 2020 Time Seen by Provider: 20:18 Initial Comments To ER with bilateral lower extremity redness swelling and edema as well as leakage of fluids for 3 weeks. No fevers or chills. She is on Xarelto, metolazone, Lasix. She wears oxygen at 2 L per nasal cannula at home Onset: other Severity: moderate Pain/Injury Location: bilateral leg Modifying Factors: Worse With Movement Allergies and Home Medications Allergies Coded Allergies: No Known Drug Allergies (Unverified , 04/29/19) Home Medications Albuterol Sulfate 18 Gm Hfa.aer.ad, 2 PUFF INH Q4H PRN for SHORTNESS OF BREATH, (Reported) Amoxicillin/Potassium Clav 1 Each Tablet, 1 EACH PO BID Prescribed by: BROOKLYN DUNLAP on 01/24/20 1056 Amoxicillin/Potassium Clav 1 Each Tablet, 1 EACH PO BID Prescribed by: SAL BONILLA on 08/29/20 2235 Atorvastatin Calcium 40 Mg Tablet, 40 MG PO HS, (Reported) Azithromycin 250 Mg Tablet, 250 MG PO DAILY Prescribed by: BROOKLYN DUNLAP on 01/24/20 1056 Azithromycin 250 Mg Tablet, 250 MG PO UD TAKE 2 TABLETS ON DAY ONE THEN TAKE 1 TABLET DAILY FOR FOUR MORE DAYS Prescribed by: WU HUNG on 07/27/20 1720 Buprenorphine HCl/Naloxone HCl 1 Each Tab.subl, 1 EACH SL BID, (Reported) Fluoxetine HCl 10 Mg Tablet, 10 MG PO DAILY, (Reported) Fluticasone/Salmeterol 12 Gm Hfa.aer.ad, 0 PUFF IH RTBID Prescribed by: BROOKLYN DUNLAP on 01/24/20 1056 Furosemide 40 Mg Tablet, 40 MG PO DAILY, (Reported) Gabapentin 600 Mg Tablet, 1,200 MG PO HS, (Reported) Insulin Determir 1,000 Units/10 Ml Soln, 5 UNIT SQ HS Prescribed by: ACE DIAMOND on 10/24/19 1035 Ipratropium/Albuterol Sulfate 3 Ml Ampul.neb, 3 ML NEB QID PRN for SHORTNESS OF BREATH, (Reported) Lisinopril 10 Mg Tablet, 10 MG PO BID, (Reported) Metoprolol Tartrate 100 Mg Tablet, 150 MG PO BID, (Reported) TAKES 1 & (100MG)TABS TWICE DAILY Ondansetron 4 Mg Tab.rapdis, 4 MG PO Q4H PRN for NAUSEA/VOMITING-1ST LINE, (Reported) Ondansetron 4 Mg Tab.rapdis, 4 MG PO Q6H PRN for NAUSEA/VOMITING Prescribed by: WU HUNG on 07/27/20 1720 Potassium Chloride 20 Meq Tablet.er, 20 MEQ PO DAILY, (Reported) Prednisone 20 Mg Tab, 40 MG PO DAILY@0700 Prescribed by: BROOKLYN DUNLAP on 01/24/20 1056 Prednisone 20 Mg Tab, 40 MG PO DAILY Prescribed by: WU HUNG on 07/27/20 1720 Prednisone 20 Mg Tab, 40 MG PO DAILY Prescribed by: SAL BONILLA on 08/29/20 2235 Rivaroxaban 20 Mg Tablet, 20 MG PO HS, (Reported) Sennosides/Docusate Sodium 1 Each Tablet, 1 EA PO BID PRN for CONSTIPATION-1ST LINE Prescribed by: ACE DIAMOND on 10/24/19 1035 Tiotropium [place] 4 Gm Mist.inhal, 1-2 PUFF INH DAILY, (Reported) Patient Home Medication List Home Medication List Reviewed: Yes Review of Systems Constitutional: see HPI EENTM: see HPI Respiratory: no symptoms reported Cardiovascular: no symptoms reported Musculoskeletal: no symptoms reported Skin: no symptoms reported Psychiatric/Neurological: No Symptoms Reported Past Ksxgzhs-Vxggdc-Hudosy Hx Patient Social History Alcohol Use: Denies Use Number of Drinks Today: GG Alcohol Beverage of Choice: Whiskey Recreational Drug Use: No Smoking Status: Current Everyday Smoker Type Used: Cigarettes 2nd Hand Smoke Exposure: Yes Recent Foreign Travel: No Contact w/Someone Who Travel: No Recent Infectious Disease Expo: No Recent Hopitalizations: No Immunizations Up To Date Tetanus Booster (TDap): Unknown Seasonal Allergies Seasonal Allergies: Yes Past Medical History Surgeries: Yes Hysterectomy Respiratory: Yes Pneumonia, Chronic Bronchitis, COPD Cardiac: Yes Atrial Fibrillation, Hypertension Neurological: Yes Paralysis : No 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 Disorders: Yes Female 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 Disorders: 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 Sexually Transmitted Disease: No HIV/AIDS: No Genitourinary: Yes UTI-Chronic Gastrointestinal: Yes Gastroesophageal Reflux Musculoskeletal: Yes Endocrine: Yes Diabetes, Insulin dep HEENT: No Cancer: No Psychosocial: Yes Bipolar, Depression Integumentary: No Blood Disorders: No Adverse Reaction/Blood Tranf: No Family Medical History Cerebrovascular accident (CVA) 19 FATHER, Onset:60 years & older FH: testicular cancer G8 BROTHER, Onset:30's - 40 Hypertension 19 FATHER, Onset:Unknown 19 MOTHER, Onset:Unknown G8 BROTHER, Onset:Unknown G8 BROTHER, Onset:Unknown Myocardial infarction 19 FATHER, Onset:40's - 50 Heart Disease, Hypertension Physical Exam Vital Signs Vital Signs - First Documented 09/14/20 19:51 Temp 36.3 Pulse 93 Resp 18 B/P (MAP) 123/82 (96) Pulse Ox 96 O2 Delivery Nasal Cannula O2 Flow Rate 2.00 Capillary Refill : Less Than 3 Seconds Height, Weight, BMI Height: 5'5.00" Weight: 218lbs. 0.0oz. 98.680998pe; 36.00 BMI Method:Stated General Appearance: WD/WN, no apparent distress, other ( oxygen saturation 72% with good waveform on arrival on room air but mentating well.) Neck: non-tender, full range of motion Respiratory: no respiratory distress, no accessory muscle use Hips: bilateral hip non-tender, bilateral hip normal inspection, bilateral hip normal range of motion Legs: bilateral leg pain, bilateral leg soft tissue tenderness, bilateral leg swelling, bilateral leg other (Circumferential erythema and swelling to both lower extremities. Both lower extremities are swollen 4+ up to the knee. There is some weeping of serous fluid from the right lower extremity.) Knees: bilateral knee non-tender, bilateral knee normal inspection, bilateral knee normal range of motion Ankles: bilateral ankle pain, bilateral ankle swelling Feet: bilateral foot pain, bilateral foot swelling Neurologic/Psychiatric: alert Procedures/Interventions Date of ETT Placement: Oct 07, 2019 Time of ETT Placement: 0100 Progress/Results/Core Measures Results/Orders Lab Results Laboratory Tests Test 09/14/20 20:00 09/14/20 20:25 Range/Units White Blood Count 11.6 H 4.3-11.0 10^3/uL Red Blood Count 3.97 3.80-5.11 10^6/uL Hemoglobin 9.9 L 11.5-16.0 g/dL Hematocrit 35 35-52 % Mean Corpuscular Volume 89 80-99 fL Mean Corpuscular Hemoglobin 25 25-34 pg Mean Corpuscular Hemoglobin Concent 28 L 32-36 g/dL Red Cell Distribution Width 18.3 H 10.0-14.5 % Platelet Count 424 H 130-400 10^3/uL Mean Platelet Volume 9.8 9.0-12.2 fL Immature Granulocyte % (Auto) 0 % Neutrophils (%) (Auto) 70 42-75 % Lymphocytes (%) (Auto) 23 12-44 % Monocytes (%) (Auto) 5 0-12 % Eosinophils (%) (Auto) 2 0-10 % Basophils (%) (Auto) 0 0-10 % Neutrophils # (Auto) 8.1 H 1.8-7.8 10^3/uL Lymphocytes # (Auto) 2.6 1.0-4.0 10^3/uL Monocytes # (Auto) 0.6 0.0-1.0 10^3/uL Eosinophils # (Auto) 0.2 0.0-0.3 10^3/uL Basophils # (Auto) 0.1 0.0-0.1 10^3/uL Immature Granulocyte # (Auto) 0.1 0.0-0.1 10^3/uL Sodium Level 139 135-145 MMOL/L Potassium Level 3.0 L 3.6-5.0 MMOL/L Chloride Level 95 L 98-107 MMOL/L Carbon Dioxide Level 29 21-32 MMOL/L Anion Gap 15 H 5-14 MMOL/L Blood Urea Nitrogen 17 7-18 MG/DL Creatinine 1.27 0.60-1.30 MG/DL Estimat Glomerular Filtration Rate 44 BUN/Creatinine Ratio 13 Glucose Level 176 H 70-105 MG/DL Lactic Acid Level 4.07 *H 0.50-2.00 MMOL/L Calcium Level 9.1 8.5-10.1 MG/DL Corrected Calcium 9.0 8.5-10.1 MG/DL Total Bilirubin 0.8 0.1-1.0 MG/DL Aspartate Amino Transf (AST/SGOT) 15 5-34 U/L Alanine Aminotransferase (ALT/SGPT) 18 0-55 U/L Alkaline Phosphatase 122 40-136 U/L B-Type Natriuretic Peptide 585.6 H <100.0 PG/ML Total Protein 7.0 6.4-8.2 GM/DL Albumin 4.1 3.2-4.5 GM/DL Serum Alcohol 148 H <10 MG/DL Blood Gas Puncture Site LEFT RADIAL Blood Gas Patient Temperature 36.3 Arterial Blood pH 7.37 7.37-7.43 Arterial Blood Partial Pressure CO2 55 H 35-45 MMHG Arterial Blood Partial Pressure O2 61 L 79-93 MMHG Arterial Blood HCO3 32 H 23-27 MMOL/L Arterial Blood Total CO2 33.5 H 21.0-31.0 MMOL/L Arterial Blood Oxygen Saturation 90 L 94-100 % Arterial Blood Base Excess 6.5 H -2.5-2.5 MMOL/L Jame Test POSITIVE Blood Gas Ventilator Setting NO Blood Gas Inspired Oxygen 2 My Orders Orders - SAL BONILLA APRN Cbc With Automated Diff (09/14/20 19:58) Comprehensive Metabolic Panel (09/14/20 19:58) Ed Iv/Invasive Line Start (09/14/20 19:58) Blood Culture (09/14/20 19:58) Lactic Acid Analyzer (09/14/20 19:58) Albuterol Inhaler (Ventolin Hfa) (09/14/20 22:00) Chest 1 View, Ap/Pa Only (09/14/20 20:22) BNP (09/14/20 20:22) Arterial Blood Gas (09/14/20 20:23) Alcohol (09/14/20 20:35) Potassium Chloride (Tablet) (Klor Con Ta (09/14/20 21:15) Vital Signs/I&O 09/14/20 19:51 Temp 36.3 Pulse 93 Resp 18 B/P (MAP) 123/82 (96) Pulse Ox 96 O2 Delivery Nasal Cannula O2 Flow Rate 2.00 Blood Pressure Mean: 96 Diagnostic Imaging Diagonstic Imaging: Xray Comments NAME: ZEKE MEDELLIN [facility] REC#: [id number] PT STATUS: REG ER : 1965 PHYSICIAN: SAL BONILLA APRN ADMIT DATE: 09/14/20/ER Draft Date of Exam:09/14/20 CHEST 1 VIEW, AP/PA ONLY INDICATION: DYSPNEA COMPARISON: 08/29/2020 FINDINGS: Single frontal view of the chest demonstrates stable mild cardiomegaly. Pulmonary vasculature is within normal limits. The lungs are well aerated and clear. No large pleural effusion or pneumothorax is seen. The visualized osseous structures show no acute abnormalities. IMPRESSION: 1. Mild cardiomegaly, but no evidence of failure or focal infiltrate. Dictated on workstation # [id number] Dict: 09/14/[id number] Trans: 09/14/202052 JOHN [id number] Interpreted by: AYUSH BAILEY MD Electronically signed by: Departure Communication (Admissions) The bilateral pedal edema is most likely from venous stasis dermatitis rather than infection or cellulitis because it is bilateral and symmetrical. Her white count is unimpressive, her lactic acid is elevated likely from her chronic alcoholism. She is without tachycardia. Impression Primary Impression: Venous stasis dermatitis of both lower extremities Additional Impressions: Pedal edema Alcohol intoxication Disposition: 01 HOME, SELF-CARE Condition: Stable Departure-Patient Inst. Decision time for Depature: 21:11 Referrals: BROOKE JOYNER DO (PCP/Family) Primary Care Physician Patient Instructions: Alcohol Intoxication ED, Dependent Edema (DC) Add. Discharge Instructions: You absolutely must elevate your legs. This will help significantly with reducing the swelling. Follow-up with your doctor next week. Return to ER for any concerns. Take the antibiotics as directed. All discharge instructions reviewed with patient and/or family. Voiced understanding. Scripts Cephalexin (Keflex) 500 Mg Capsule 500 MG PO TID, #21 CAP Prov: SAL BONILLA APRN 09/14/20 Copy Copies To 1: BROOKE JONYER PETER J APRN Sep 14, 2020 20:21
[2020-09-14 20:25] LABS: ALBUMIN 4.1 GM/DL (3.2-4.5)
[2020-09-14 20:27] LABS: CALCIUM 9.1 MG/DL (8.5-10.1)
[2020-09-14 20:30] LABS: BILIRUBIN,TOTAL 0.8 MG/DL (0.1-1.0)
[2020-09-14 20:31] LABS: ABG BASE EXCESS 6.5 MMOL/L (-2.5-2.5); ABG OXYGEN SATURATION 90 % (94-100); ABG PCO2 55 MMHG (35-45); ABG PH 7.37 (7.37-7.43); ABG PO2 61 MMHG (79-93); ABG TCO2 33.5 MMOL/L (21.0-31.0)
[2020-09-14 20:32] LABS: CREATININE SERUM 1.27 MG/DL (0.60-1.30)
[2020-09-14 20:34] LABS: ALLENS TEST POSITIVE; INSPIRED O2 2; PATIENT TEMP 36.3; VENTILATOR NO
--- NOTE | 2020-09-14 20:53 | Diagnostic Imaging Report ---
INDICATION: DYSPNEA COMPARISON: 08/29/2020 FINDINGS: Single frontal view of the chest demonstrates stable mild cardiomegaly. Pulmonary vasculature is within normal limits. The lungs are well aerated and clear. No large pleural effusion or pneumothorax is seen. The visualized osseous structures show no acute abnormalities. IMPRESSION: 1. Mild cardiomegaly, but no evidence of failure or focal infiltrate. Dictated by: Dictated on workstation # [id number]
[2020-09-14] MEDS ORDERED: KCL 10 MEQ TAB (MICRO K) PO ONE (21:15)
[2020-09-14] MEDS ORDERED: CEPH-507 PO (21:15)
[2020-09-14 21:28] VITALS: BP 112/71
[2020-09-14] MEDS ORDERED: cefTRIAXone FOR IV USE 1,000 MG in WATER (STERILE) FOR INJECTION 10 ML IV ONE (21:30)
[2020-09-14] MEDS ORDERED: RT-ALBUTEROL INHALER HFA (VENTOLIN HFA) 18 GM IH SCH (22:00)
== END 2020-09-14 21:32 | disposition home or self-care (01) ==
LOC: EDUNIT# 19:44 → ER 19:46
DX: I83.12 Varicose veins of left lower extremity with inflammation (principal); I83.11 Varicose veins of right lower extremity with inflammation; R60.0 Localized edema; J44.9 Chronic obstructive pulmonary disease, unspecified; I48.91 Unspecified atrial fibrillation; E11.9 Type 2 diabetes mellitus without complications; I10 Essential (primary) hypertension; F32.9 Major depressive disorder, single episode, unspecified; F10.129 Alcohol abuse with intoxication, unspecified; F17.210 Nicotine dependence, cigarettes, uncomplicated; Z82.49 Family history of ischemic heart disease and other diseases of the circulatory system; Z80.43 Family history of malignant neoplasm of testis; Z79.52 Long term (current) use of systemic steroids; Z79.01 Long term (current) use of anticoagulants; Z79.4 Long term (current) use of insulin
CPT/HCPCS: 71045; 80053; 82805; 83605; 83880; 85025; 87040; 99285; G0480; 36415; 80320

== ENCOUNTER → 2020-10-08 | Outpatient (CLI) | payer BC ==
[~2020-10-08] MED LIST changes: +CEPH-507 PO
[2020-10-08 15:04] LABS: CALCIUM 10.1 MG/DL (8.5-10.1); CREATININE SERUM 2.07 MG/DL (0.60-1.30); MAGNESIUM 2.3 MG/DL (1.6-2.4); POTASSIUM 5.7 MMOL/L (3.6-5.0)
== END ==
LOC: CARD 14:30
PROVIDERS: ATTEND Nurse Practitioner Family
DX: I50.33 Acute on chronic diastolic (congestive) heart failure (principal); I48.0 Paroxysmal atrial fibrillation
CPT/HCPCS: 36415; 80048; 83735; 93225; 93226

== ENCOUNTER → 2020-10-23 | Outpatient (CLI) | payer BC ==
[~2020-10-23] MED LIST changes: -FOLI1TAB24 PO; +FOLI1TAB33 PO
[2020-10-23 15:06] LABS: CALCIUM 9.6 MG/DL (8.5-10.1); CREATININE SERUM 2.35 MG/DL (0.60-1.30); POTASSIUM 3.6 MMOL/L (3.6-5.0)
== END ==
LOC: LAB 14:26
PROVIDERS: ATTEND Internal Medicine Cardiovascular Disease
DX: I50.33 Acute on chronic diastolic (congestive) heart failure (principal)
CPT/HCPCS: 36415; 80048

== ENCOUNTER 2020-12-14 20:37 | Emergency (ER) | payer BC ==
[~2020-12-14] VITALS: Ht 165.1 cm; Wt 88.5 kg
[~2020-12-14 20:37] MED LIST changes: -LISI10TA2 PO; +LISI10TA25 PO
[2020-12-14 21:08] LABS: BASOPHILS # (AUTO) 0.1 10^3/uL (0.0-0.1); BASOPHILS % (AUTO) 0 % (0-10); EOSINOPHILS # (AUTO) 0.1 10^3/uL (0.0-0.3); EOSINOPHILS % (AUTO) 1 % (0-10); HEMATOCRIT 37 % (35-52); HEMOGLOBIN 11.1 g/dL (11.5-16.0); LYMPHOCYTES # (AUTO) 0.8 10^3/uL (1.0-4.0); LYMPHOCYTES % (AUTO) 6 % (12-44); MEAN CORPUSCULAR HEMOGLOBIN 25 pg (25-34); MEAN CORPUSCULAR HGB CONC 30 g/dL (32-36); MEAN CORPUSCULAR VOLUME 82 fL (80-99); MEAN PLATELET VOLUME 9.3 fL (9.0-12.2); MONOCYTES # (AUTO) 0.7 10^3/uL (0.0-1.0); MONOCYTES % (AUTO) 5 % (0-12); NEUTROPHILS # (AUTO) 12.5 10^3/uL (1.8-7.8); NEUTROPHILS % (AUTO) 88 % (42-75); PLATELET COUNT 554 10^3/uL (130-400); WHITE BLOOD COUNT 14.2 10^3/uL (4.3-11.0)
[2020-12-14 21:13] LABS: INR 1.1 (0.8-1.4); PROTHROMBIN TIME PATIENT 14.4 SEC (12.2-14.7)
[2020-12-14 21:29] LABS: ANISOCYTOSIS MODERATE; BAND NEUTROPHILS 1 %; BASOPHILS % (MANUAL) 0 %; ELLIPT/OVALOCYTES SLIGHT; EOSINOPHILS % (MANUAL) 0 %; HYPOCHROMASIA SLIGHT; LYMPHOCYTES % (MANUAL) 4 %; MICROCYTOSIS SLIGHT; MONOCYTES % (MANUAL) 3 %; NEUTROPHILS % (MANUAL) 92 %; ROULEAUX SLIGHT
[2020-12-14 21:32] LABS: ALBUMIN 3.9 GM/DL (3.2-4.5); BILIRUBIN,TOTAL 0.3 MG/DL (0.1-1.0); CALCIUM 9.8 MG/DL (8.5-10.1); CREATININE SERUM 8.01 MG/DL (0.60-1.30); MAGNESIUM 2.8 MG/DL (1.6-2.4); TOTAL PROTEIN 7.7 GM/DL (6.4-8.2)
--- NOTE | 2020-12-14 21:32 | ED Cardiac General ---
History of Present Illness General Chief Complaint: Chest Pain Stated Complaint: EDEMA / CP Nursing Triage Note: PRESENTS VIA [facility] CART FROM HOME WITH C/O INTERMITTENT CHEST DISCOMFORT ET PERIPHERAL EDEMA. PRIOR TO ARRIVAL EMS ACCESSED 20G IV TO L AC ET ADM. 324MG ASA. REPORTS ON THE EVENING OF 12/13/20 SHE BEGAN TO EXPEREINCE L SIDED CHEST DISCOMFORT RADIATING TO HER L JAW. REPORTS SINCE ONSET, SHE HAS EXPERIENCED INTERMITTENT EPISODES LASTING APPROX X1 MINUTE EACH. CURRENT DENIES CHEST PAIN OR DISCOMFORT AT THIS TIME. ARRIVES WITH DRSG TO BILAT LOWER EXTREMITIES. REPORTS BILAT LOWER EXTREMITY EDEMA BEGINNING AUGUST 2020. A&OX4. Source: patient Exam Limitations: no limitations (ROCHELLE BANEGAS,MED STUDENT) History of Present Illness Date Seen by Provider: Dec 14, 2020 Time Seen by Provider: 20:56 Initial Comments Patient in ED via EMS from home with complaint of intermittent chest pain and increased lower extremity swelling. Chest pain began 2 days ago and is intermittent lasting 1 min each episode. It is left sided and "squeezing" in nature, pain radiates to left jaw. She was given 324mg ASA by EMS. Last chest pain episode was while being transported via EMS and resolved after 1 min. She denies SOA , fever, chills at this time. Bilateral lower extremity swelling has increased in the last 3-4 days with weeping and increase in pain. She has been wrapping them applying nystatin powder and bactroban. Currently anticoagulated with xarelto. Recent hospital admissions in Jul and Aug for COPD exacerbations. History of severe COPD, on 2L O2 at baseline, atrial fibrillation, DVT. Hospitalization and intubation for 1 month in Sep 2019 for bilateral pneumonia and ARDS. She is a current smoker 1 PPD. Echo in 2014 showed EF of 65% Cardiac catheterization 2018 demonstrated normal coronary arteries and normal EF. PCP Dr. 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 (324MG ASA ([facility] )) (ROCHELLE BANEGAS,MED STUDENT) Allergies and Home Medications Allergies Coded Allergies: No Known Drug Allergies (Unverified , 04/29/19) Home Medications Albuterol Sulfate 18 Gm Hfa.aer.ad, 2 PUFF INH Q4H PRN for SHORTNESS OF BREATH, (Reported) Amoxicillin/Potassium Clav 1 Each Tablet, 1 EACH PO BID Prescribed by: BROOKLYN DUNLAP on 01/24/20 1056 Amoxicillin/Potassium Clav 1 Each Tablet, 1 EACH PO BID Prescribed by: SAL BONILLA on 08/29/202234 Atorvastatin Calcium 40 Mg Tablet, 40 MG PO HS, (Reported) Azithromycin 250 Mg Tablet, 250 MG PO DAILY Prescribed by: BROOKLYN DUNLAP on 01/24/20 105 Azithromycin 250 Mg Tablet, 250 MG PO UD TAKE 2 TABLETS ON DAY ONE THEN TAKE 1 TABLET DAILY FOR FOUR MORE DAYS Prescribed by: WU HUNG on 07/27/20 172 Buprenorphine HCl/Naloxone HCl 1 Each Tab.subl, 1 EACH SL BID, (Reported) Cephalexin 500 Mg Capsule, 500 MG PO TID Prescribed by: SAL BONILLA on 09/14/202114 Fluoxetine HCl 10 Mg Tablet, 10 MG PO DAILY, (Reported) Fluticasone/Salmeterol 12 Gm Hfa.aer.ad, 0 PUFF IH RTBID Prescribed by: BROOKLYN DUNLAP on 01/24/20 105 Furosemide 40 Mg Tablet, 40 MG PO DAILY, (Reported) Gabapentin 600 Mg Tablet, 1,200 MG PO HS, (Reported) Insulin Determir 1,000 Units/10 Ml Soln, 5 UNIT SQ HS Prescribed by: ACE DIAMOND on 10/24/19 1035 Ipratropium/Albuterol Sulfate 3 Ml Ampul.neb, 3 ML NEB QID PRN for SHORTNESS OF BREATH, (Reported) Lisinopril 10 Mg Tablet, 10 MG PO BID, (Reported) Metoprolol Tartrate 100 Mg Tablet, 150 MG PO BID, (Reported) TAKES 1 & (100MG)TABS TWICE DAILY Ondansetron 4 Mg Tab.rapdis, 4 MG PO Q4H PRN for NAUSEA/VOMITING-1ST LINE, (Reported) Ondansetron 4 Mg Tab.rapdis, 4 MG PO Q6H PRN for NAUSEA/VOMITING Prescribed by: WU HUNG on 07/27/201719 Potassium Chloride 20 Meq Tablet.er, 20 MEQ PO DAILY, (Reported) Prednisone 20 Mg Tab, 40 MG PO DAILY@0700 Prescribed by: BROOKLYN DUNLAP on 01/24/20 105 Prednisone 20 Mg Tab, 40 MG PO DAILY Prescribed by: WU HUNG on 07/27/201719 Prednisone 20 Mg Tab, 40 MG PO DAILY Prescribed by: SAL BONILLA on 11/25/20 2235 Rivaroxaban 20 Mg Tablet, 20 MG PO HS, (Reported) Sennosides/Docusate Sodium 1 Each Tablet, 1 EA PO BID PRN for CONSTIPATION-1ST LINE Prescribed by: ACE DIAMOND on 10/24/19 1035 Tiotropium Brandon 4 Gm Mist.inhal, 1-2 PUFF INH DAILY, (Reported) Patient Home Medication List Home Medication List Reviewed: Yes (ROCHELLE BANEGAS MED STUDENT) Review of Systems Review of Systems Constitutional: No chills, No fever EENTM: No Blurred Vision Respiratory: Cough (chronic, productive); Denies Shortness of Air Cardiovascular: Chest Pain; Denies Palpitations Gastrointestinal: Abdominal Pain (mild RUQ); Denies Constipated, Denies Diarrhea, Denies Nausea Genitourinary: No Symptoms Reported Skin: other (Bilateral LE swelling) Psychiatric/Neurological: Denies Headache; Weakness (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) (ROCHELLE BANEGAS MED STUDENT) Past Bazjjmc-Mnszaz-Mlbkbl Hx Patient Social History Alcohol Use: Denies Use Number of Drinks Today: GG Alcohol Beverage of Choice: Whiskey Smoking Status: Current Everyday Smoker Type Used: Cigarettes 2nd Hand Smoke Exposure: Yes Recent Infectious Disease Expo: No Recent Hopitalizations: No (ROCHELLE BANEGAS MED STUDENT) Immunizations Up To Date Tetanus Booster (TDap): Unknown (ROCHELLE BANEAGS MED STUDENT) Seasonal Allergies Seasonal Allergies: Yes (ROCHELLE BANEGAS MED STUDENT) Past Medical History Surgeries: Yes Hysterectomy Respiratory: Yes Pneumonia, Chronic Bronchitis, COPD Cardiac: Yes Atrial Fibrillation, Hypertension Neurological: Yes Paralysis 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 Disorders: Yes Female 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 Disorders: Denies 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 History: Menopausal Sexually Transmitted Disease: No HIV/AIDS: No Genitourinary: Yes UTI-Chronic Gastrointestinal: Yes Gastroesophageal Reflux Musculoskeletal: Yes Endocrine: Yes Diabetes, Insulin dep HEENT: No Cancer: No Psychosocial: Yes Bipolar, Depression Integumentary: No Blood Disorders: No Adverse Reaction/Blood Tranf: No (ROCHELLE BANEGAS MED STUDENT) Family Medical History Cerebrovascular accident (CVA) 19 FATHER, Onset:60 years & older FH: testicular cancer G8 BROTHER, Onset:30's - 40 Hypertension 19 FATHER, Onset:Unknown 19 MOTHER, Onset:Unknown G8 BROTHER, Onset:Unknown G8 BROTHER, Onset:Unknown Myocardial infarction 19 FATHER, Onset:40's - 50 Heart Disease, Hypertension (ROCHELLE BANEGAS,LAURA STUDENT) Physical Exam Vital Signs Vital Signs - First Documented 12/14/20 20:39 Temp 36.3 Pulse 106 Resp 22 B/P (MAP) 98/61 (73) Pulse Ox 98 O2 Delivery Nasal Cannula O2 Flow Rate 2.0 (HOUSTON ALMAZAN MD) Vital Signs Capillary Refill : Greater Than 3 Seconds (ROCHELLE BANEGAS,LAURA STUDENT) Height, Weight, BMI Height: 5'5.00" Weight: 218lbs. 0.0oz. [id number]; 32.00 BMI Method:Stated General Appearance: No Apparent Distress, WD/WN, Obese Neck: Non Tender, Supple Respiratory: Chest Non Tender, No Accessory Muscle Use, No Respiratory Distress, Crackles (bilateral bases) Cardiovascular: No Murmur, Tachycardia Gastrointestinal: Soft; No Abnormal Bowel Sounds, No Distended, No Guarding; T enderness (moderate RUQ) Neurologic/Psychiatric: Alert, Oriented x3, Normal Mood/Affect, Motor Weakness (chronic LLE and RUE weakness) Skin: Rash (punctate rash to anterior thighs and forearms with excoriations ), Other (2+ LE edema bilaterally, erythema to proximal tibia, skin sloughing) (ROCHELLE BANEGAS,LAURA STUDENT) Focused Exam Lactate Level 12/14/20 20:43: Lactic Acid Level 0.86 (HOUSTON ALMAZAN MD) Lactic Acid Level Laboratory Tests Test 12/14/20 20:43 Lactic Acid Level 0.86 MMOL/L (0.50-2.00) (HOUSTON ALMAZAN MD) Procedures/Interventions Date of ETT Placement: Oct 07, 2019 Time of ETT Placement: 010 (ROCHELLE BANEGAS,MED STUDENT) Progress/Results/Core Measures Results/Orders Lab Results Laboratory Tests Test 12/14/20 20:43 12/14/20 22:43 12/15/20 00:28 12/15/20 01:56 Range/Units White Blood Count 14.2 H 4.3-11.0 10^3/uL Red Blood Count 4.46 3.80-5.11 10^6/uL Hemoglobin 11.1 L 11.5-16.0 g/dL Hematocrit 37 35-52 % Mean Corpuscular Volume 82 80-99 fL Mean Corpuscular Hemoglobin 25 25-34 pg Mean Corpuscular Hemoglobin Concent 30 L 32-36 g/dL Red Cell Distribution Width 18.4 H 10.0-14.5 % Platelet Count 554 H 130-400 10^3/uL Mean Platelet Volume 9.3 9.0-12.2 fL Immature Granulocyte % (Auto) 0 % Neutrophils (%) (Auto) 88 H 42-75 % Lymphocytes (%) (Auto) 6 L 12-44 % Monocytes (%) (Auto) 5 0-12 % Eosinophils (%) (Auto) 1 0-10 % Basophils (%) (Auto) 0 0-10 % Neutrophils # (Auto) 12.5 H 1.8-7.8 10^3/uL Lymphocytes # (Auto) 0.8 L 1.0-4.0 10^3/uL Monocytes # (Auto) 0.7 0.0-1.0 10^3/uL Eosinophils # (Auto) 0.1 0.0-0.3 10^3/uL Basophils # (Auto) 0.1 0.0-0.1 10^3/uL Immature Granulocyte # (Auto) 0.1 0.0-0.1 10^3/uL Neutrophils % (Manual) 92 % Lymphocytes % (Manual) 4 % Monocytes % (Manual) 3 % Eosinophils % (Manual) 0 % Basophils % (Manual) 0 % Band Neutrophils 1 % Hypochromasia SLIGHT Anisocytosis MODERATE Microcytosis SLIGHT Macrocytosis SLIGHT Elliptocytes SLIGHT Rouleau SLIGHT Prothrombin Time 14.4 12.2-14.7 SEC INR Comment 1.1 0.8-1.4 Activated Partial Thromboplast Time 39 H 24-35 SEC Sodium Level 129 L 135-145 MMOL/L Potassium Level 7.3 *H 3.6-5.0 MMOL/L Chloride Level 92 L 98-107 MMOL/L Carbon Dioxide Level 15 L 21-32 MMOL/L Anion Gap 22 H 5-14 MMOL/L Blood Urea Nitrogen 130 *H 7-18 MG/DL Creatinine 8.01 H 0.60-1.30 MG/DL Estimat Glomerular Filtration Rate 5 BUN/Creatinine Ratio 16 Glucose Level 89 70-105 MG/DL Lactic Acid Level 0.86 0.50-2.00 MMOL/L Calcium Level 9.8 8.5-10.1 MG/DL Corrected Calcium 9.9 8.5-10.1 MG/DL Magnesium Level 2.8 H 1.6-2.4 MG/DL Total Bilirubin 0.3 0.1-1.0 MG/DL Aspartate Amino Transf (AST/SGOT) 15 5-34 U/L Alanine Aminotransferase (ALT/SGPT) 11 0-55 U/L Alkaline Phosphatase 142 H 40-136 U/L Myoglobin 186.0 H 10.0-92.0 NG/ML Troponin I < 0.028 <0.028 NG/ML C-Reactive Protein High Sensitivity 25.35 H 0.00-0.50 MG/DL B-Type Natriuretic Peptide 10.1 <100.0 PG/ML Total Protein 7.7 6.4-8.2 GM/DL Albumin 3.9 3.2-4.5 GM/DL Triglycerides Level 154 H <150 MG/DL Cholesterol Level 169 < 200 MG/DL LDL Cholesterol Direct 96 1-129 MG/DL VLDL Cholesterol 31 5-40 MG/DL HDL Cholesterol 48 40-60 MG/DL Coronavirus 2019 (DHARA) Negative Negative Glucometer 70 96 70-110 MG/DL Test 12/15/20 02:11 Range/Units Urine Color YELLOW Urine Clarity CLEAR Urine pH 5.0 5-9 Urine Specific Butler 1.020 1.016-1.022 Urine Protein NEGATIVE NEGATIVE Urine Glucose (UA) NEGATIVE NEGATIVE Urine Ketones NEGATIVE NEGATIVE Urine Nitrite NEGATIVE NEGATIVE Urine Bilirubin NEGATIVE NEGATIVE Urine Urobilinogen 0.2 < = 1.0 MG/DL Urine Leukocyte Esterase NEGATIVE NEGATIVE Urine RBC (Auto) NEGATIVE NEGATIVE Urine RBC NONE /HPF Urine WBC NONE /HPF Urine Squamous Epithelial Cells NONE /HPF Urine Crystals NONE /LPF Urine Amorphous Sediment FEW FORTINO URATES H /LPF Urine Bacteria NEGATIVE /HPF Urine Casts NONE /LPF Urine Mucus NEGATIVE /LPF Urine Culture Indicated CULTURE PENDING (HOUSTON ALMAZAN MD) My Orders Orders - HOUSTON ALMAZAN MD Cbc With Automated Diff (12/14/20 21:01) Magnesium (12/14/20 21:01) Chest 1 View, Ap/Pa Only (12/14/20 21:01) Ekg Tracing (12/14/20 21:01) Comprehensive Metabolic Panel (12/14/20 21:) Myoglobin Serum (12/14/20 21:) Protime With Inr (12/14/20:) Partial Thromboplastin Time (12/14/20:) O2 (12/14/20:) Monitor-Rhythm Ecg Trace Only (12/14/20:) Lipid Panel (12/15/20 06:00) Ed Iv/Invasive Line Start (12/14/20 21:) Troponin I (12/14/20:) BNP (12/14/20 21:03) Hs C Reactive Protein (12/14/20 21:06) Manual Differential (12/14/20 20:43) Blood Culture (12/14/20 22:13) Sputum Culture (12/14/20:) Urinalysis (12/14/20:) Urine Culture (12/14/20:) Vital Signs Adult Sepsis Patie Q15M (12/14/20 22:13) Remove Rings In Anticipation O (12/14/20:13) Lactic Acid Analyzer (12/14/20:13) Ceftriaxone For Iv Use (Rocephin For I (12/14/20 22:15) Hydrocodone/Apap 5/325 Tablet (Lortab 5 (12/14/20 22:15) Diphenhydramine Tablet (Benadryl Tablet) (12/14/20 22:15) Ns Iv 1000 Ml (Sodium Chloride 0.9%) (12/14/20 22:15) Ns Iv 1000 Ml (Sodium Chloride 0.9%) (12/14/20 22:30) Insulin (Regular) Human (Novolin R (Per (12/14/20 22:30) Calcium Gluconate 10% Inj (Calcium Glu (12/14/20 22:30) D50w (Emergency) Syringe (Dextrose 50% 5 (12/14/20 22:30) Sodium Polystyrene Sulfonate (Kayexalate (12/14/20 22:30) Covid 19 Inhouse Test (12/14/20 22:37) Fentanyl Injection (Sublimaze Injection (12/15/20 00:00) Accucheck Stat ONCE (12/15/20 00:26) Accucheck Stat ONCE (12/15/20 00:27) D50w (Emergency) Syringe (Dextrose 50% 5 (12/15/20 00:45) Sodium Bicarbonate 8.4% Vial (Sodium Bic (12/15/20 01:15) Norepinephrine 8 Mg/250 Ml (Norepinephri (12/15/20 01:15) Norepinephrine 8 Mg/250 Ml (Norepinephri (12/15/20 01:11) Ekg Tracing (12/15/20 01:49) (HOUSTON ALMAZAN MD) Medications Given in ED Current Medications Medications Dose Ordered Sig/Chery Route Start Time Stop Time Status Last Admin Dose Admin Acetaminophen/ Hydrocodone Bitart 1 ea ONCE ONCE PO 12/14/20 22:15 12/14/20 22:17 DC 12/14/20 22:40 1 EA Calcium Gluconate 4.65 meq ONCE ONCE IV 12/14/20 22:30 12/14/20 22:31 DC 12/14/20 23:37 4.65 MEQ Ceftriaxone Sodium 1000 mg/ Sterile Water 10 ml @ 200 mls/hr ONCE ONCE IV 12/14/20 22:15 12/14/20 22:17 DC 12/14/20 22:39 200 MLS/HR Dextrose 25 ml ONCE ONCE IV 12/14/20 22:30 12/14/20 22:31 DC 12/14/20 23:32 25 ML Dextrose 50 ml ONCE ONCE IV 12/15/20 00:45 12/15/20 00:46 DC 12/15/20 00:44 50 ML Diphenhydramine HCl 50 mg ONCE ONCE PO 12/14/20 22:15 12/14/20 22:17 DC 12/14/20 22:40 50 MG Fentanyl Citrate 50 mcg ONCE ONCE IVP 12/15/20 00:00 12/15/20 00:02 DC 12/15/20 00:12 50 MCG Insulin Human Regular 5 unit ONCE ONCE IV 12/14/20 22:30 12/14/20 22:31 DC 12/14/20 23:37 5 UNIT Sodium Polystyrene Sulfonate 15 gm ONCE ONCE PO 12/14/20 22:30 12/14/20 22:31 DC 12/14/20 23:53 15 GM Sodium Bicarbonate 50 meq ONCE ONCE IV 12/15/20 01:15 12/15/20 01:16 DC 12/15/20 01:50 50 MEQ (HOUSTON ALMAZAN MD) Vital Signs/I&O 12/14/20 12/14/20 12/14/20 12/15/20 20:39 20:39 20:39 01:20 Temp 36.3 Pulse 106 97 Resp 22 B/P (MAP) 98/61 (73) 74/58 Pulse Ox 98 98 O2 Delivery Nasal Cannula Room Air Room Air O2 Flow Rate 2.0 2.00 12/15/20 12/15/20 12/15/20 01:43 01:44 02:45 Temp 36.6 Pulse 97 98 93 Resp 20 B/P (MAP) 74/58 74/54 102/62 (61) Pulse Ox 94 O2 Delivery Nasal Cannula O2 Flow Rate 2.00 (HOUSTON ALMAZAN MD) Blood Pressure Mean: 73 Progress Progress Note #1: Time: 22:03 Progress Note Patient meets sepsis criteria with tachycardia and leukocytosis. Plan to admit for IV abx. Discussed outpatient would care with wound center after admission. Progress Note #2: Time: 22:23 Progress Note Reviewed lab results and discussed transfer with patient due to kidney function. She admits to urinating today although states it is slightly decreased. (ROCHELLE BANEGAS,MED STUDENT) Progress Note #1: Time: 00:05 Progress Note I have seen and examined this patient personally. Patient was found to be in severe acute kidney failure. I discussed the case with Dr. Woodson (hospitalist) and Dr. Morgan (stave grader) at [facility]. I have received tentative acceptance but Dr. Morgan was hesitant because she could not receive dialysis there until about 08:00. He recommended trying alternative locations to expedite dialysis. [facility] did not believe they could accomplish dialysis any faster. I am checking with [facility] and am awaiting a call back. Unfortunately, whether is prohibiting flying by helicopter and fixed wing will take too long based on report from [employer] and [employer]. In the meantime, we are treating her hyperkalemia with 2 L IV normal saline bolus, Kayexalate, insulin with D50, and calcium gluconate. Rocephin was given for treatment of the cellulitis after blood cultures and lactic acid were drawn. We are treating pain with hydrocodone and fentanyl. Progress Note #2: Time: 01:32 Progress Note Patient has been persistently hypotensive for about the past hour. She has now completed 2 L of IV fluids. Levophed drip is being initiated. Patient now seems to be developing septic shock. Placement continues to be a problem. Helicopter flight is not possible due to weather. Ground transportation is problematic due to time. [facility] is on general diversion and [facility] is now on dialysis diversion. I discussed the situation with them multiple times. It seems now the best opportunity is [facility] since they seem to be the closest facility. I have discussed with the nurse practitioner for the ICU again. He is excepting the patient on behalf of the attending Dr. Santana Diego. Last fingerstick blood sugar was 70. An amp of D50 was administered. Patient also has been given an amp of sodium bicarb. Progress Note #3: Time: 01:58 Progress Note Fingerstick blood sugar is now 96. Vital signs are improved after starting Levophed drip. Heart rate is 91. Blood pressure is 113/53. Dispatch has been notified of emergent transfer. Progress Note #4: Progress Note Levophed was titrated to response. Patient was treated with fentanyl for better control of her pain before transfer. (HOUSTON ALMAZAN MD) Initial ECG Impression Date: Dec 14, 2020 Initial ECG Impression Time: 20:42 Initial ECG Rate: 108 Initial ECG Rhythm: S.Tach Comment Sinus tachycardia with no ST elevation or depression. Subtle T wave narrowing. No abnormal intervals or axis deviation. EKG : EKG Time: 01:52 Rate: 93 Rhythm: S.Tach Intervals: [place] (Prolonged) ECG Impression: Normal Comment Normal sinus rhythm with no ST elevation or depression. Subtle peaking of T waves has improved. (HOUSTON ALMAZAN MD) Diagnostic Imaging Diagonstic Imaging: Xray Plain Films/CT/US/NM/MRI: chest Comments NAME: ZEKE MEDELLIN MED REC#: [id number] PT STATUS: REG ER : 1965 PHYSICIAN: HOUSTON ALMAZAN MD ADMIT DATE: 12/14/20/ER Draft Date of Exam:12/14/20 CHEST 1 VIEW, AP/PA ONLY EXAMINATION: Chest radiograph, portable AP view. DATE: 12/14/2020 9:26 PM INDICATION: 55-year-old female, chest pain. COMPARISON: September 14, 2020. FINDINGS: Heart size and mediastinal contours are unchanged. There is no identified pneumothorax. There is no large pleural effusion. There is no identified interval focal airspace consolidation. IMPRESSION: No identified acute cardiopulmonary abnormality. Dictated on workstation # [id number] Dict: 12/14/202126 Trans: 12/14/202129 [facility] [id number] Interpreted by: JUAN MIGUEL RIVERA MD Electronically signed by: (ROCHELLE BANEGAS,LAURA STUDENT) Critical Care Note Critical Care Start Time: 01:05 Stop Time: 02:40 (HOUSTON ALMAZAN MD) Departure Impression Primary Impression: Septic shock Additional Impressions: Acute kidney failure Qualified Codes: N17.9 - Acute kidney failure, unspecified Hyperkalemia Lower extremity cellulitis Qualified Codes: L03.119 - Cellulitis of unspecified part of limb Disposition: 02 XFER SHT-TRM HOSP Condition: Stable Transfer Transfer Reason: Exceeds level of care Time Spoke to Accepting Phy: 01:25 Transfer Progress Notes Patient was accepted to the service of Dr. Santana Diego to the ICU at [facility]. Transfer Facility: [facility] Method of Transfer: EMS (HOUSTON ALMAZAN MD) Departure-Patient Inst. Referrals: BROOKE HICKS DO (PCP/Family) Primary Care Physician Medical Student Attestation and Attending Note: I have personally interviewed and examined this patient along with Rochelle Banegas, MS 4. I have reviewed student documentation including history, physical, and assessments. I agree with the documentation except where otherwise noted. Exam: General: Alert, oriented, no acute distress, well developed HEENT: Normocephalic and atraumatic, mucous membranes somewhat dry Heart: Tachycardic with rhythm without murmur Lungs: Clear to auscultation bilaterally with normal effort Abdomen: Soft, nontender, nondistended, normal bowel sounds Neuropsych: Alert, oriented, no focal deficits Extremities: Lower extremities with moist erythema below the knees bilaterally with scattered excoriations. Tender to the touch. Normal capillary refill. (HOUSTON ALMAZAN MD) Copy Copies To 1: BROOKE HICKS [place],MED STUDENT Dec 14, 2020 21:32 HOUSTON ALMAZAN MD Dec 15, 2020 00:12
[2020-12-14 22:06] LABS: POTASSIUM 7.3 MMOL/L (3.6-5.0)
[2020-12-14] MEDS ORDERED: cefTRIAXone FOR IV USE 1,000 MG in WATER (STERILE) FOR INJECTION 10 ML IV ONE (22:15)
[2020-12-14] MEDS ORDERED: HYDROcodone/APAP 5 MG/325 MG (LORTAB) TAB PO ONE (22:15)
[2020-12-14] MEDS ORDERED: diphenhydrAMINE 25 MG TAB (BENADRYL) PO ONE (22:15)
[2020-12-14] MEDS ORDERED: NS IV 1000 ML 1,000 ML IV SCH ×2 (22:15→22:30)
[2020-12-14] MEDS ORDERED: CALCIUM GLUC. 10% 4.65 MEQ/10 ML VIAL IV ONE (22:30)
[2020-12-14] MEDS ORDERED: DEXTROSE 50% 50 ML (IMS) SYR IV ONE (22:30)
[2020-12-14] MEDS ORDERED: SOD POLYSTERENE 15 GM/60 ML (KAYEXALATE) UNIT DOSE PO ONE (22:30)
[2020-12-14] MEDS ORDERED: inSUlin (REGULAR) HUMAN 1 UNIT/0.01 ML (CHARGE PER UNIT) IV ONE (22:30)
[2020-12-15] MEDS ORDERED: fentaNYL INJECTION 100 MCG/2 ML AMP IVP ONE
[2020-12-15 00:40] LABS: TRIGLYCERIDES 154 MG/DL (<150); VLDL CHOLESTEROL 31 MG/DL (5-40)
[2020-12-15 00:45] LABS: CHOLESTEROL 169 MG/DL (< 200)
[2020-12-15] MEDS ORDERED: DEXTROSE 50% 50 ML (IMS) SYR IV ONE (00:45)
[2020-12-15 00:46] LABS: HDL CHOLESTEROL 48 MG/DL (40-60)
[2020-12-15] MEDS ORDERED: NOREPINEPHRINE 8 MG/250 ML 250 ML IV ONE (01:11)
[2020-12-15] MEDS ORDERED: SODIUM BICARB 8.4% 50 MEQ/50 ML VIAL IV ONE (01:15)
[2020-12-15] MEDS ORDERED: NOREPINEPHRINE 8 MG/250 ML 250 ML IV SCH (01:15)
[2020-12-15 02:34] LABS: BILIRUBIN,URINE NEGATIVE (NEGATIVE); CLARITY,URINE CLEAR; COLOR,URINE YELLOW; GLUCOSE, URINE (UA) NEGATIVE (NEGATIVE); KETONES,URINE NEGATIVE (NEGATIVE); LEUKOCYTE ESTERASE ,URINE NEGATIVE (NEGATIVE); NITRITE,URINE NEGATIVE (NEGATIVE); PROTEIN,URINE NEGATIVE (NEGATIVE)
[2020-12-15 02:40] LABS: BACTERIA,URINE NEGATIVE /HPF
[2020-12-15 02:41] LABS: AMORPHOUS SEDIMENT,UR FEW AMOR URATES /LPF
[2020-12-15 02:45] VITALS: BP 102/62
[2020-12-15] MEDS ORDERED: NS IV 1000 ML 1,000 ML ONE (05:59)
== END 2020-12-15 02:40 | disposition short-term general hospital (02) ==
LOC: EDUNIT# 20:37 → ER 20:39
DX: N17.9 Acute kidney failure, unspecified (principal); R65.21 Severe sepsis with septic shock; E87.5 Hyperkalemia; L03.116 Cellulitis of left lower limb; L03.115 Cellulitis of right lower limb; E66.9 Obesity, unspecified; J44.9 Chronic obstructive pulmonary disease, unspecified; I10 Essential (primary) hypertension; I48.91 Unspecified atrial fibrillation; E11.9 Type 2 diabetes mellitus without complications; F32.9 Major depressive disorder, single episode, unspecified; Z68.32 Body mass index [BMI] 32.0-32.9, adult; Z80.43 Family history of malignant neoplasm of testis; F17.210 Nicotine dependence, cigarettes, uncomplicated; Z20.822 Contact with and (suspected) exposure to COVID-19; Z79.01 Long term (current) use of anticoagulants; Z79.52 Long term (current) use of systemic steroids; Z79.4 Long term (current) use of insulin
CPT/HCPCS: 51702; 71045; 80053; 80061; 81000; 82962; 83605; 83735; 83874; 83880; 84484; 85007; 85027; 85610; 85730; 86141; 87040; 87088; 99285; U0002; 36415; 87635; 93005

== ENCOUNTER 2021-02-03 06:12 | Emergency (ER) | payer BC ==
[~2021-02-03] VITALS: Ht 165.1 cm; Wt 79.8 kg
[2021-02-03 07:39] LABS: BASOPHILS % (AUTO) 0 % (0-10); EOSINOPHILS # (AUTO) 0.2 10^3/uL (0.0-0.3); EOSINOPHILS % (AUTO) 2 % (0-10); HEMATOCRIT 30 % (35-52); HEMOGLOBIN 8.7 g/dL (11.5-16.0); LYMPHOCYTES # (AUTO) 1.1 10^3/uL (1.0-4.0); LYMPHOCYTES % (AUTO) 9 % (12-44); MEAN CORPUSCULAR HEMOGLOBIN 25 pg (25-34); MEAN CORPUSCULAR HGB CONC 29 g/dL (32-36); MEAN CORPUSCULAR VOLUME 87 fL (80-99); MEAN PLATELET VOLUME 8.7 fL (9.0-12.2); MONOCYTES # (AUTO) 0.5 10^3/uL (0.0-1.0); MONOCYTES % (AUTO) 4 % (0-12); NEUTROPHILS # (AUTO) 10.3 10^3/uL (1.8-7.8); NEUTROPHILS % (AUTO) 84 % (42-75); PLATELET COUNT 554 10^3/uL (130-400); WHITE BLOOD COUNT 12.3 10^3/uL (4.3-11.0)
[2021-02-03 07:46] LABS: ALBUMIN 3.2 GM/DL (3.2-4.5); POTASSIUM 5.7 MMOL/L (3.6-5.0)
[2021-02-03 07:47] LABS: CALCIUM 8.7 MG/DL (8.5-10.1)
[2021-02-03 07:48] LABS: PROTHROMBIN TIME PATIENT 13.5 SEC (12.2-14.7)
[2021-02-03 07:49] LABS: TOTAL PROTEIN 6.5 GM/DL (6.4-8.2)
--- NOTE | 2021-02-03 07:49 | Diagnostic Imaging Report ---
INDICATION: sepsis COMPARISON: 12/14/2020 FINDINGS: Single frontal view of the chest demonstrates normal heart size and pulmonary vascularity. The lungs are well aerated and clear. No large pleural effusion or pneumothorax is seen. The visualized osseous structures show no acute abnormalities. IMPRESSION: 1. No acute cardiopulmonary process. Dictated by: Dictated on workstation # [id number]
[2021-02-03 07:50] LABS: BILIRUBIN,TOTAL 0.4 MG/DL (0.1-1.0)
[2021-02-03 07:52] LABS: CREATININE SERUM 6.05 MG/DL (0.60-1.30)
--- NOTE | 2021-02-03 07:52 | ED General ---
General Chief Complaint: General Problems/Pain Stated Complaint: NOT FEELING WELL, OPEN WOUNDS Nursing Triage Note: PATIENT STATES THAT SHE WAS DISCHARGED FROM [facility] IN DECEMBER. SHE CONTINUED TO TAKE HER ANTIBIOTICS UNTIL THEY WERE FINISHED A COUPLE OF WEEKS AGO. SHE HAD BEEN TREATED FOR SEPSIS AT THE TIME. SHE STATES THAT SHE "FEELS THAT WAY NOW AGAIN". SHE ALSO HAS BILAT LOWER EXTREM WRAPS AND WOUNDS. Nursing Sepsis Screen: No Definite Risk Source of Information: Patient Exam Limitations: No Limitations History of Present Illness Date Seen by Provider: February 03, 2021 Time Seen by Provider: 06:15 Initial Comments This 55-year-old woman presents to the emergency room via EMS with primary complaints of bilateral lower extremity edema and erythema. She also feels chilled and weak. She is a bit shaky. She also complains of generalized itching. She has recent history of septic shock and severe acute kidney injury for which she was transferred to [facility]. She reports completing antibiotics that were prescribed on discharge. At the time of transfer she was thought to need emergent dialysis. However, patient reports that her labs had improved by the time she arrived and need for dialysis was averted. Patient is afebrile at present. She is however tachycardic. Allergies and Home Medications Allergies Coded Allergies: No Known Drug Allergies (Unverified , 04/29/19) Home Medications Albuterol Sulfate 18 Gm Hfa.aer.ad, 2 PUFF INH Q4H PRN for SHORTNESS OF BREATH, (Reported) Amoxicillin/Potassium Clav 1 Each Tablet, 1 EACH PO BID Prescribed by: BROOKLYN DUNLAP on 01/24/20 1056 Amoxicillin/Potassium Clav 1 Each Tablet, 1 EACH PO BID Prescribed by: SAL BONILLA on 08/29/20 2235 Atorvastatin Calcium 40 Mg Tablet, 40 MG PO HS, (Reported) Azithromycin 250 Mg Tablet, 250 MG PO DAILY Prescribed by: BROOKLYN DUNLAP on 01/24/20 1056 Azithromycin 250 Mg Tablet, 250 MG PO UD TAKE 2 TABLETS ON DAY ONE THEN TAKE 1 TABLET DAILY FOR FOUR MORE DAYS Prescribed by: WU HUNG on 07/27/20 1720 Buprenorphine HCl/Naloxone HCl 1 Each Tab.subl, 1 EACH SL BID, (Reported) Cephalexin 500 Mg Capsule, 500 MG PO TID Prescribed by: SAL BONILLA on 09/14/20 2115 Fluoxetine HCl 10 Mg Tablet, 10 MG PO DAILY, (Reported) Fluticasone/Salmeterol 12 Gm Hfa.aer.ad, 0 PUFF IH RTBID Prescribed by: BROOKLYN DUNLAP on 01/24/20 1056 Furosemide 40 Mg Tablet, 40 MG PO DAILY, (Reported) Gabapentin 600 Mg Tablet, 1,200 MG PO HS, (Reported) Insulin Determir 1,000 Units/10 Ml Soln, 5 UNIT SQ HS Prescribed by: ACE DIAMOND on 10/24/19 1035 Ipratropium/Albuterol Sulfate 3 Ml Ampul.neb, 3 ML NEB QID PRN for SHORTNESS OF BREATH, (Reported) Lisinopril 10 Mg Tablet, 10 MG PO BID, (Reported) Metoprolol Tartrate 100 Mg Tablet, 150 MG PO BID, (Reported) TAKES 1 & (100MG)TABS TWICE DAILY Ondansetron 4 Mg Tab.rapdis, 4 MG PO Q4H PRN for NAUSEA/VOMITING-1ST LINE, (Reported) Ondansetron 4 Mg Tab.rapdis, 4 MG PO Q6H PRN for NAUSEA/VOMITING Prescribed by: WU HUNG on 07/27/20 1720 Potassium Chloride 20 Meq Tablet.er, 20 MEQ PO DAILY, (Reported) Prednisone 20 Mg Tab, 40 MG PO DAILY@0700 Prescribed by: BROOKLYN DUNLAP on 01/24/20 1056 Prednisone 20 Mg Tab, 40 MG PO DAILY Prescribed by: WU HUNG on 07/27/20 1720 Prednisone 20 Mg Tab, 40 MG PO DAILY Prescribed by: SAL BONILLA on 08/29/20 2235 Rivaroxaban 20 Mg Tablet, 20 MG PO HS, (Reported) Sennosides/Docusate Sodium 1 Each Tablet, 1 EA PO BID PRN for CONSTIPATION-1ST LINE Prescribed by: ACE DIAMOND on 10/24/19 1035 Tiotropium Mcdonough 4 Gm Mist.inhal, 1-2 PUFF INH DAILY, (Reported) Patient Home Medication List Home Medication List Reviewed: Yes Review of Systems Review of Systems Constitutional: see HPI EENTM: no symptoms reported Respiratory: no symptoms reported Cardiovascular: see HPI Gastrointestinal: no symptoms reported Genitourinary: no symptoms reported : No Musculoskeletal: see HPI Skin: see HPI Psychiatric/Neurological: No Symptoms Reported Hematologic/Lymphatic: No Symptoms Reported Immunological/Allergic: no symptoms reported Past Qsrxlon-Gxjlqi-Ghvlmg Hx Past Med/Social Hx: Reviewed Nursing Past Med/Soc Hx Patient Social History Alcohol Use: Occasionally Uses Number of Drinks Today: 0 Alcohol Beverage of Choice: Whiskey Smoking Status: Current Everyday Smoker Type Used: Cigarettes 2nd Hand Smoke Exposure: Yes Recent Infectious Disease Expo: No Recent Hopitalizations: No Immunizations Up To Date Tetanus Booster (TDap): Unknown Seasonal Allergies Seasonal Allergies: Yes Past Medical History Surgeries: Yes Hysterectomy Respiratory: Yes Pneumonia, Chronic Bronchitis, COPD Cardiac: Yes Atrial Fibrillation, Hypertension Neurological: Yes Paralysis 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 Disorders: Yes Female 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 Disorders: 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 Sexually Transmitted Disease: No HIV/AIDS: No Genitourinary: Yes Renal Failure, UTI-Chronic Gastrointestinal: Yes Gastroesophageal Reflux Musculoskeletal: Yes Endocrine: Yes Diabetes, Insulin dep HEENT: No Cancer: No Psychosocial: Yes Bipolar, Depression Integumentary: No Blood Disorders: No Adverse Reaction/Blood Tranf: No Family Medical History Cerebrovascular accident (CVA) 19 FATHER, Onset:60 years & older FH: testicular cancer G8 BROTHER, Onset:30's - 40 Hypertension 19 FATHER, Onset:Unknown 19 MOTHER, Onset:Unknown G8 BROTHER, Onset:Unknown G8 BROTHER, Onset:Unknown Myocardial infarction 19 FATHER, Onset:40's - 50 Heart Disease, Hypertension Physical Exam Vital Signs Vital Signs - First Documented 02/03/21 06:15 Temp 36.1 Pulse 127 Resp 20 B/P (MAP) 107/52 (70) Pulse Ox 92 O2 Delivery Nasal Cannula O2 Flow Rate 3.00 Capillary Refill : Less Than 3 Seconds Height, Weight, BMI Height: 5'5.00" Weight: 218lbs. 0.0oz. 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 Skin: Normal Color, Warm/Dry Focused Exam Lactate Level 02/03/21 07:23: Lactic Acid Level 1.36 Lactic Acid Level Laboratory Tests Test 02/03/21 07:23 Lactic Acid Level 1.36 MMOL/L (0.50-2.00) Procedures/Interventions Date of ETT Placement: Oct 07, 2019 Time of ETT Placement: 0100 Progress/Results/Core Measures Suspected Sepsis Recent Fever Within 48 Hours: No Infection Criteria Present: Suspected New Infection New/Unexplained Altered Menta: No Sepsis Screen: No Definite Risk SIRS Temperature: Pulse: 127 Respiratory Rate: 20 Laboratory Tests 02/03/21 07:23: White Blood Count 12.3H Blood Pressure 107 /52 Mean: 70 02/03/21 07:23: Lactic Acid Level 1.36 Laboratory Tests 02/03/21 07:23: Creatinine 6.05H, INR Comment 1.0, Platelet Count 554H, Total Bilirubin 0.4 Results/Orders Lab Results Laboratory Tests Test 02/03/21 07:23 02/03/21 07:49 Range/Units White Blood Count 12.3 H 4.3-11.0 10^3/uL Red Blood Count 3.50 L 3.80-5.11 10^6/uL Hemoglobin 8.7 L 11.5-16.0 g/dL Hematocrit 30 L 35-52 % Mean Corpuscular Volume 87 80-99 fL Mean Corpuscular Hemoglobin 25 25-34 pg Mean Corpuscular Hemoglobin Concent 29 L 32-36 g/dL Red Cell Distribution Width 19.6 H 10.0-14.5 % Platelet Count 554 H 130-400 10^3/uL Mean Platelet Volume 8.7 L 9.0-12.2 fL Immature Granulocyte % (Auto) 0 % Neutrophils (%) (Auto) 84 H 42-75 % Lymphocytes (%) (Auto) 9 L 12-44 % Monocytes (%) (Auto) 4 0-12 % Eosinophils (%) (Auto) 2 0-10 % Basophils (%) (Auto) 0 0-10 % Neutrophils # (Auto) 10.3 H 1.8-7.8 10^3/uL Lymphocytes # (Auto) 1.1 1.0-4.0 10^3/uL Monocytes # (Auto) 0.5 0.0-1.0 10^3/uL Eosinophils # (Auto) 0.2 0.0-0.3 10^3/uL Basophils # (Auto) 0.0 0.0-0.1 10^3/uL Immature Granulocyte # (Auto) 0.1 0.0-0.1 10^3/uL Prothrombin Time 13.5 12.2-14.7 SEC INR Comment 1.0 0.8-1.4 Activated Partial Thromboplast Time 29 24-35 SEC Sodium Level 132 L 135-145 MMOL/L Potassium Level 5.7 H 3.6-5.0 MMOL/L Chloride Level 101 98-107 MMOL/L Carbon Dioxide Level 15 L 21-32 MMOL/L Anion Gap 16 H 5-14 MMOL/L Blood Urea Nitrogen 78 H 7-18 MG/DL Creatinine 6.05 H 0.60-1.30 MG/DL Estimat Glomerular Filtration Rate 7 BUN/Creatinine Ratio 13 Glucose Level 97 70-105 MG/DL Lactic Acid Level 1.36 0.50-2.00 MMOL/L Calcium Level 8.7 8.5-10.1 MG/DL Corrected Calcium 9.3 8.5-10.1 MG/DL Total Bilirubin 0.4 0.1-1.0 MG/DL Aspartate Amino Transf (AST/SGOT) 9 5-34 U/L Alanine Aminotransferase (ALT/SGPT) 7 0-55 U/L Alkaline Phosphatase 156 H 40-136 U/L C-Reactive Protein High Sensitivity 6.83 H 0.00-0.50 MG/DL B-Type Natriuretic Peptide 10.2 <100.0 PG/ML Total Protein 6.5 6.4-8.2 GM/DL Albumin 3.2 3.2-4.5 GM/DL Urine Color YELLOW Urine Clarity CLEAR Urine pH 5.0 5-9 Urine Specific [place] >=1.030 1.016-1.022 Urine Protein NEGATIVE NEGATIVE Urine Glucose (UA) NEGATIVE NEGATIVE Urine Ketones NEGATIVE NEGATIVE Urine Nitrite NEGATIVE NEGATIVE Urine Bilirubin NEGATIVE NEGATIVE Urine Urobilinogen 0.2 < = 1.0 MG/DL Urine Leukocyte Esterase NEGATIVE NEGATIVE Urine RBC (Auto) NEGATIVE NEGATIVE Urine RBC NONE /HPF Urine WBC 0-2 /HPF Urine Squamous Epithelial Cells 5-10 /HPF Urine Crystals NONE /LPF Urine Bacteria TRACE /HPF Urine Casts NONE /LPF Urine Mucus NEGATIVE /LPF Urine Yeast MODERATE H /HPF Urine Culture Indicated YES My Orders Orders - HOUSTON ALMAZAN MD Cbc With Automated Diff (02/03/21 06:30) Comprehensive Metabolic Panel (02/03/21 06:30) Blood Culture (02/03/21 06:30) Sputum Culture (02/03/21 06:30) Urinalysis (02/03/21 06:30) Urine Culture (02/03/21 06:30) Protime With Inr (02/03/21 06:30) Partial Thromboplastin Time (02/03/21 06:30) Chest 1 View, Ap/Pa Only (02/03/21 06:30) Ed Iv/Invasive Line Start (02/03/21 06:30) Ed Iv/Invasive Line Start (02/03/21 06:30) Vital Signs Adult Sepsis Patie Q15M (02/03/21 06:30) O2 (02/03/21 06:30) Remove Rings In Anticipation O (02/03/21 06:30) Lactic Acid Analyzer (02/03/21 06:30) BNP (02/03/21 06:30) Hs C Reactive Protein (02/03/21 06:30) Ns Iv 1000 Ml (Sodium Chloride 0.9%) (02/03/21 08:00) Cefepime Injection (Maxipime Injection) (02/03/21 08:30) Ns Iv 1000 Ml (Sodium Chloride 0.9%) (02/03/21 09:45) Medications Given in ED Current Medications Medications Dose Ordered Sig/Chery Route Start Time Stop Time Status Last Admin Dose Admin Cefepime HCl 2000 mg/Sterile Water 20 ml @ 240 mls/hr ONCE ONCE IV 02/03/21 08:30 02/03/21 08:34 DC 02/03/21 08:34 240 MLS/HR Vital Signs/I&O 02/03/21 02/03/21 06:15 07:20 Temp 36.1 Pulse 127 Resp 20 B/P (MAP) 107/52 (70) Pulse Ox 92 94 O2 Delivery Nasal Cannula Nasal Cannula O2 Flow Rate 3.00 2.00 Capillary Refill : Less Than 3 Seconds Blood Pressure Mean: 70 Progress Note #1: Time: 08:15 Progress Note Patient was seen and examined upon arrival. Septic work-up is underway. IV fluids are infusing. IV access has been problematic the 2 small bore IVs have been established. Progress Note #2: Time: 08:37 Progress Note Patient meets septic criteria with leukocytosis and tachycardia with lower extremity cellulitis as the source. Patient will need admission at a facility with nephrology and dialysis services due to GFR of 7 and a prior history of more severe renal failure. Electrolytes are stable at this time. Initial antibiotic therapy is being started with cefepime 2 g IV. Transfer to [facility] has been accepted by Dr. Woodson. Progress Note #3: Time: 09:41 Progress Note Patient is being transferred at this time. A second liter of IV fluid is being started to infuse in route. Diagnostic Imaging Diagonstic Imaging: Xray Plain Films/CT/US/NM/MRI: chest Comments Chest x-ray viewed by me and report reviewed. See report below: NAME: ZEKE MEDELLIN [facility] REC#: [id number] PT STATUS: REG ER : 1965 PHYSICIAN: HOUSTON ALMAZAN MD ADMIT DATE: 02/03/21/ER Draft Date of Exam:02/03/21 CHEST 1 VIEW, AP/PA ONLY INDICATION: sepsis COMPARISON: 12/14/2020 FINDINGS: Single frontal view of the chest demonstrates normal heart size and pulmonary vascularity. The lungs are well aerated and clear. No large pleural effusion or pneumothorax is seen. The visualized osseous structures show no acute abnormalities. IMPRESSION: 1. No acute cardiopulmonary process. Dictated on workstation # [id number] Dict: 02/03/21 0746 Trans: 02/03/21 0749 [facility] [id number] Interpreted by: AYUSH BAILEY MD Departure Impression Primary Impression: Sepsis Qualified Codes: A41.9 - Sepsis, unspecified organism Additional Impressions: Renal failure Qualified Codes: N17.9 - Acute kidney failure, unspecified; N18.9 - Chronic kidney disease, unspecified Cellulitis of lower leg Disposition: XFER SHT-TRM HOSP Condition: Stable Transfer Transfer Reason: Exceeds level of care Time Spoke to Accepting Phy: 08:25 Transfer Progress Notes Transfer accepted by Dr. Woodson at [facility] in [place]. Transfer Time: 09:34 Transfer Facility: [facility] Method of Transfer: EMS Departure-Patient Inst. Referrals: BROOKE JOYNER DO (PCP/Family) Primary Care Physician Copy Copies To 1: BROOKE JOYNER JOSHUA T MD February 03, 2021 07:52
[2021-02-03 08:00] LABS: BILIRUBIN,URINE NEGATIVE (NEGATIVE); CLARITY,URINE CLEAR; COLOR,URINE YELLOW; GLUCOSE, URINE (UA) NEGATIVE (NEGATIVE); KETONES,URINE NEGATIVE (NEGATIVE); LEUKOCYTE ESTERASE ,URINE NEGATIVE (NEGATIVE); NITRITE,URINE NEGATIVE (NEGATIVE); PROTEIN,URINE NEGATIVE (NEGATIVE)
[2021-02-03] MEDS ORDERED: NS IV 1000 ML 1,000 ML IV SCH ×2 (08:00→09:45)
[2021-02-03 08:09] LABS: BACTERIA,URINE TRACE /HPF; WBC,URINE 0-2 /HPF
[2021-02-03 08:10] LABS: YEAST,URINE MODERATE /HPF
[2021-02-03] MEDS ORDERED: CEFEPIME INJECTION 2,000 MG in WATER (STERILE) FOR INJECTION 20 ML IV ONE (08:30)
[2021-02-03 09:39] VITALS: BP 102/73
== END 2021-02-03 09:40 | disposition short-term general hospital (02) ==
LOC: EDUNIT# 06:12 → ER 06:13
DX: A41.9 Sepsis, unspecified organism (principal); N19 Unspecified kidney failure; L03.116 Cellulitis of left lower limb; L03.115 Cellulitis of right lower limb; J44.9 Chronic obstructive pulmonary disease, unspecified; I48.91 Unspecified atrial fibrillation; I10 Essential (primary) hypertension; F32.9 Major depressive disorder, single episode, unspecified; E11.9 Type 2 diabetes mellitus without complications; F17.210 Nicotine dependence, cigarettes, uncomplicated; Z79.01 Long term (current) use of anticoagulants; Z79.52 Long term (current) use of systemic steroids; Z79.4 Long term (current) use of insulin; Z79.899 Other long term (current) drug therapy
CPT/HCPCS: 36415; 71045; 80053; 81000; 83605; 83880; 85025; 85610; 85730; 86141; 87040; 87088

== ENCOUNTER 2021-03-11 04:00 | Inpatient (IN) | payer BC ==
[~2021-03-11] VITALS: Ht 165.1 cm; Wt 86.6 kg
[2021-03-11] MEDS ORDERED: ASPIRIN 81 MG CHEW (CHILDREN'S ASA) PO ONE (04:30)
[2021-03-11 04:31] LABS: BASOPHILS % (AUTO) 0 % (0-10); EOSINOPHILS # (AUTO) 0.4 10^3/uL (0.0-0.3); EOSINOPHILS % (AUTO) 3 % (0-10); HEMATOCRIT 32 % (35-52); HEMOGLOBIN 9.7 g/dL (11.5-16.0); LYMPHOCYTES # (AUTO) 1.1 10^3/uL (1.0-4.0); LYMPHOCYTES % (AUTO) 10 % (12-44); MEAN CORPUSCULAR HEMOGLOBIN 27 pg (25-34); MEAN CORPUSCULAR HGB CONC 31 g/dL (32-36); MEAN CORPUSCULAR VOLUME 89 fL (80-99); MEAN PLATELET VOLUME 9.1 fL (9.0-12.2); MONOCYTES # (AUTO) 0.6 10^3/uL (0.0-1.0); MONOCYTES % (AUTO) 6 % (0-12); NEUTROPHILS # (AUTO) 8.7 10^3/uL (1.8-7.8); NEUTROPHILS % (AUTO) 80 % (42-75); PLATELET COUNT 248 10^3/uL (130-400); WHITE BLOOD COUNT 10.9 10^3/uL (4.3-11.0)
[2021-03-11 04:40] LABS: ALBUMIN 3.7 GM/DL (3.2-4.5); CHLORIDE 91 MMOL/L (98-107); POTASSIUM 6.1 MMOL/L (3.6-5.0); SODIUM 134 MMOL/L (135-145)
[2021-03-11 04:42] LABS: CALCIUM 9.3 MG/DL (8.5-10.1)
[2021-03-11 04:43] LABS: GLUCOSE 119 MG/DL (70-105); TOTAL PROTEIN 7.6 GM/DL (6.4-8.2)
[2021-03-11 04:44] LABS: CARBON DIOXIDE 29 MMOL/L (21-32)
[2021-03-11 04:45] LABS: BILIRUBIN,TOTAL 0.6 MG/DL (0.1-1.0)
[2021-03-11 04:46] LABS: ALKALINE PHOSPHATASE 164 U/L (40-136)
[2021-03-11 04:47] LABS: CREATININE SERUM 1.34 MG/DL (0.60-1.30); GFR ESTIMATED 41
[2021-03-11 04:48] LABS: BUN/CREATININE RATIO 14
[2021-03-11 04:49] LABS: ALANINE AMINOTRANSFERASE 10 U/L (0-55); MAGNESIUM 1.7 MG/DL (1.6-2.4)
[2021-03-11] MEDS ORDERED: SOD POLYSTERENE 15 GM/60 ML (KAYEXALATE) UNIT DOSE PO ONE (05:00)
[2021-03-11] MEDS ORDERED: inSUlin (REGULAR) HUMAN 1 UNIT/0.01 ML (CHARGE PER UNIT) IV ONE (05:00)
[2021-03-11] MEDS ORDERED: DEXTROSE 50% 50 ML (IMS) SYR IV ONE (05:00)
[2021-03-11] MEDS ORDERED: CALCIUM GLUC. 10% 4.65 MEQ/10 ML VIAL IV ONE (05:00)
[2021-03-11 05:07] LABS: PROTHROMBIN TIME PATIENT 13.2 SEC (12.2-14.7)
[2021-03-11 05:15] LABS: BILIRUBIN,URINE NEGATIVE (NEGATIVE); CLARITY,URINE CLEAR; COLOR,URINE YELLOW; GLUCOSE, URINE (UA) NEGATIVE (NEGATIVE); KETONES,URINE NEGATIVE (NEGATIVE); LEUKOCYTE ESTERASE ,URINE NEGATIVE (NEGATIVE); NITRITE,URINE NEGATIVE (NEGATIVE); PROTEIN,URINE NEGATIVE (NEGATIVE)
--- NOTE | 2021-03-11 05:26 | ED General ---
General Stated Complaint: CP Source of Information: Patient, Old Records History of Present Illness Date Seen by Provider: Mar 11, 2021 Time Seen by Provider: 04:01 Initial Comments PT ARRIVES VIA EMS FROM HOME PT STATES SHE HAD CHEST PAIN AROUND 2200 TONIGHT--STATES IT LASTED ABOUT A MINUTE AND WAS "SQUEEZING" TYPE PAIN AND HER HEART WAS RACING STATES "I WASN'T TOO WORRIED ABOUT IT" "IT REALLY DIDN'T BOTHER ME" NO SHORTNESS OF BREATH NO FEVER NO COUGH OR URI SYMPTOMS NO HEADACHE OR BODY ACHES HAS NOT RECEIVED COVID-19 VACCINE--STATES "THEY TOLD ME AT [place] THAT I HAD COVID ANTIBODIES IN BY BLOOD" AND THAT SHE MUST HAVE HAD COVID-19 INFECTION AT SOME TIME, BUT PT WAS NEVER ILL AND WAS UNAWARE THAT SHE HAD IT. STATES SHE CALLED EMS TONIGHT, "BECAUSE I GOT TO WORRYING ABOUT MY KIDNEYS" PT STATES SHE HAS NOT URINATED SINCE 0815 YESTERDAY MORNING. STATES NORMALLY SHE URINATES 4-5 TIMES A DAY, AND NORMALLY DRINKS ALOT OF WATER EVERY DAY, BUT STATES SHE HAS NOT HAD ANYTHING TO DRINK TODAY BECAUSE SHE "JUST WASN'T THIRSTY" PT HAS BEEN UP ALL NIGHT WATCHING MOVIES ON THE COMPUTER PT WAS HERE 12/14/20 AND DX WITH SEPTIC SHOCK AND RENAL FAILURE ( BUN 120, CR 8 ) AND TRANSFERRED TO [facility]. SHE DID NOT HAVE DIALYSIS PT HERE ON 02/03/21 AND DX WITH SEPSIS AND RENAL FAILURE ( CR 7 AT THAT TIME) AND TRANSFERRED TO [place]. SHE DID NOT HAVE DIALYSIS AT THAT ADMIT EITHER BOTH OF THOSE ADMITS WERE DUE TO INFECTION IN HER LEGS PT WITH CHRONIC LEG EDEMA AND CHRONIC OPEN/ WEEPING WOUNDS TO HER LEGS PT STATES HER LEGS ARE NOT ANY DIFFERENT THAN NORMAL PT'S PCP IS DR. JOYNER IN [place] STATES SHE HAS NOT SEEN HIM SINCE LAST ADMIT. PT HAS NEVER BEEN TO WOUND CARE FOR HER CHRONIC LEG WOUNDS' PT HAS NEVER SEEN A UX SPECIALIST--HAS COPD PT HAS NEVER SEEN A COMMUNITY PLANNING TECHNICIAN--HAS HISTORY OF ATRIAL FIBRILLATION AND DVT'S IN ARM AND LEG AND IS ON COUMADIN PT STATES SHE HAS SEEN SPECIALISTS WHEN SHE HAS BEEN HOSPITALIZED, BUT STATES SHE HAS NEVER SEEN ONE IN OFFICE FOR FOLLOW UP APPOINTMENTS PT STATES SHE WAS SWITCHED FROM XAREL[facility] TO COUMADIN A COUPLE OF MONTHS AGO BECAUSE SHE CANNOT AFFORD IT SHE ALSO STATES SHE HAS STOPPED TAKING MANY/ MOST OF HER PREVIOUS MEDICATIONS BECAUSE SHE CANNOT AFFORD THEM PT LISTS THE FOLLOWING THE ONLY MEDICATIONS SHE IS TAKING NOW: -METOPROLOL 100 MG BID -LISINOPRIL 10 MG 1 BID -KCL EXTENDED RELEASE 10 MEQ 1 DAILY -FUROSEMIDE 40 MG 1 DAILY -COUMADIN 10 MG DAILY -BREZTRI INHALER ONCE DAILY -PULMICORT INHALER TWICE A DAY -ALBUTEROL/IPRATROPIUM NEBULIZER TREATMENTS EVERY 4-6 HOURS DAILY PT IS ON HOME O2 AT 2L/NC CONTINOUSLY PT CONTINUES TO SMOKE 2 PPD PCP: DANIEL GREEN Allergies and Home Medications Allergies Coded Allergies: No Known Drug Allergies (Unverified , 04/29/19) Home Medications Albuterol Sulfate 18 Gm Hfa.aer.ad, 2 PUFF INH Q4H PRN for SHORTNESS OF BREATH, (Reported) Amoxicillin/Potassium Clav 1 Each Tablet, 1 EACH PO BID Prescribed by: BROOKLYN DUNLAP on 01/24/20 1056 Amoxicillin/Potassium Clav 1 Each Tablet, 1 EACH PO BID Prescribed by: SAL BONILLA on 08/29/20 2235 Atorvastatin Calcium 40 Mg Tablet, 40 MG PO HS, (Reported) Azithromycin 250 Mg Tablet, 250 MG PO DAILY Prescribed by: BROOKLYN DUNLAP on 01/24/20 1056 Azithromycin 250 Mg Tablet, 250 MG PO UD TAKE 2 TABLETS ON DAY ONE THEN TAKE 1 TABLET DAILY FOR FOUR MORE DAYS Prescribed by: WU HUNG on 07/27/20 1720 Buprenorphine HCl/Naloxone HCl 1 Each Tab.subl, 1 EACH SL BID, (Reported) Cephalexin 500 Mg Capsule, 500 MG PO TID Prescribed by: SAL BONILLA on 09/14/20 2115 Fluoxetine HCl 10 Mg Tablet, 10 MG PO DAILY, (Reported) Fluticasone/Salmeterol 12 Gm Hfa.aer.ad, 0 PUFF IH RTBID Prescribed by: BROOKLYN DUNLAP on 01/24/20 1056 Furosemide 40 Mg Tablet, 40 MG PO DAILY, (Reported) Gabapentin 600 Mg Tablet, 1,200 MG PO HS, (Reported) Insulin Determir 1,000 Units/10 Ml Soln, 5 UNIT SQ HS Prescribed by: ACE DIAMOND on 10/24/19 1035 Ipratropium/Albuterol Sulfate 3 Ml Ampul.neb, 3 ML NEB QID PRN for SHORTNESS OF BREATH, (Reported) Lisinopril 10 Mg Tablet, 10 MG PO BID, (Reported) Metoprolol Tartrate 100 Mg Tablet, 150 MG PO BID, (Reported) TAKES 1 & (100MG)TABS TWICE DAILY Ondansetron 4 Mg Tab.rapdis, 4 MG PO Q4H PRN for NAUSEA/VOMITING-1ST LINE, (Reported) Ondansetron 4 Mg Tab.rapdis, 4 MG PO Q6H PRN for NAUSEA/VOMITING Prescribed by: WU HUNG on 07/27/20 1720 Potassium Chloride 20 Meq Tablet.er, 20 MEQ PO DAILY, (Reported) Prednisone 20 Mg Tab, 40 MG PO DAILY@0700 Prescribed by: BROOKLYN DUNLAP on 01/24/20 1056 Prednisone 20 Mg Tab, 40 MG PO DAILY Prescribed by: WU HUNG on 07/27/20 1720 Prednisone 20 Mg Tab, 40 MG PO DAILY Prescribed by: SAL BONILLA on 08/29/20 2235 Rivaroxaban 20 Mg Tablet, 20 MG PO HS, (Reported) Sennosides/Docusate Sodium 1 Each Tablet, 1 EA PO BID PRN for CONSTIPATION-1ST LINE Prescribed by: ACE DIAMOND on 10/24/19 1035 Tiotropium [place] 4 Gm Mist.inhal, 1-2 PUFF INH DAILY, (Reported) Patient Home Medication List Home Medication List Reviewed: Yes Review of Systems Review of Systems Constitutional: no symptoms reported; No fever EENTM: no symptoms reported Respiratory: no symptoms reported; No cough, No short of breath Cardiovascular: see HPI, chest pain, edema Gastrointestinal: no symptoms reported; No abdominal pain, No constipation, No nausea, No vomiting Genitourinary: see HPI, decreased output Musculoskeletal: see HPI, other (LEG EDEMA) Skin: see HPI, other Psychiatric/Neurological: No Symptoms Reported Hematologic/Lymphatic: No Symptoms Reported Immunological/Allergic: no symptoms reported Past Fwmovhv-Owoxlj-Owntjt Hx Past Med/Social Hx: Reviewed and Corrections made Patient Social History Alcohol Use: Regular Use Alcohol Beverage of Choice: Whiskey Drug of Choice: OPIATE ABUSE Smoking Status: Current Everyday Smoker (2 PPD) Type Used: Cigarettes 2nd Hand Smoke Exposure: Yes Recent Hopitalizations: No Substance type: Opiates/Opioids Immunizations Up To Date Tetanus Booster (TDap): Unknown Seasonal Allergies Seasonal Allergies: Yes Past Medical History Surgeries: Yes (CARDIAC CATH 2018) Hysterectomy Respiratory: Yes (O2 AT 2L/NC CONTINUOUS;INTUBATED WITH ARDS/PNEUMONIAL 09/2019) Pneumonia, Chronic Bronchitis, COPD Cardiac: Yes (DVT ARM AND LEG; CARDIAC CATH 2018-NORMAL) Atrial Fibrillation, Deep Vein Thrombosis, High Cholesterol, Hypertension Neurological: Yes Paralysis 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 Disorders: Yes Female 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 Disorders: Denies 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 MANAGER History: Menopausal Sexually Transmitted Disease: No HIV/AIDS: No Genitourinary: Yes (NO DIALYSIS) Renal Failure, UTI-Chronic Gastrointestinal: Yes Gastroesophageal Reflux Musculoskeletal: Yes (CHRONIC GENERALIZED PAIN ) Endocrine: Yes (HAS BEEN ON INSULIN WHEN SHE HAS HAD STEROIDS-STATES SHE IS NOT DIABETIC) HEENT: No Cancer: No Psychosocial: Yes (OPIATE ABUSE, ALCOHOL ABUSE) Bipolar, Depression Integumentary: Yes (CHRONIC LEG WOUNDS/CELLULITIS) Blood Disorders: No Adverse Reaction/Blood Tranf: No Family Medical History Cerebrovascular accident (CVA) 19 FATHER, Onset:60 years & older FH: testicular cancer G8 BROTHER, Onset:30's - 40 Hypertension 19 FATHER, Onset:Unknown 19 MOTHER, Onset:Unknown G8 BROTHER, Onset:Unknown G8 BROTHER, Onset:Unknown Myocardial infarction 19 FATHER, Onset:40's - 50 Heart Disease, Hypertension SOCIAL HISTORY: -ETOH --ABUSE/REGULAR USE -DRUGS--LONG HISTORY OF OPIATE ABUSE -SMOKES 2 PPD ADDITIONAL PMH: -12/14/2020-TRANSFERRED TO [facility] FOR SEPTIC SHOCK WITH ACUTE RENAL FAILURE DUE TO CELLULITIS OF LEGS. -02/03/21-TRANSFERRED TO [place] FOR SEPSIS WITH ACUTE RENAL FAILURE, ALSO DUE TO CELLULITIS OF LEGS. -ADMITTED AND INTUBATED X 1 MONTH IN SEPTEMBER 2019 FOR BILATERAL PNEUMONIA AND ARDS. HISTORY OF OPIATE ABUSE/ADDICTION--HAS BEEN ON SUBOXONE, BUT STATES SHE CANNOT AFFORD IT AND IS NO LONGER TAKING IT OF 03/11/21 Physical Exam Vital Signs Vital Signs - First Documented Capillary Refill : Height, Weight, BMI Height: 5'5.00" Weight: 218lbs. 0.0oz. [id number]; 29.00 BMI Method:Stated General Appearance: No Apparent Distress, WD/WN, Other (REEKS OF CIGARETTES, DESPITE WEARING N95 + REGULAR MASK. PT DOES NOT APPEAR ILL OR TO BE IN ANY DISCOMFORT OR DISTRESS) Neck: Normal Inspection Respiratory: Normal Breath Sounds, No Accessory Muscle Use, No Respiratory Distress Cardiovascular: Regular Rate, Rhythm, No JVD, No Murmur Gastrointestinal: Soft, Tenderness (MILD SUPRAPUBIC TENDERNESS) Back: No CVA Tenderness Extremity: Pedal Edema (4+ EDEMA TO LOWER LEGS BILATERALLY, WITH MULTIPLE OPEN WOUNDS AND WEEPING, AND DIFFUSE ERYTHEMA TO BILATERAL LOWER LEGS, AND CHRONIC VENOUS STASIS CHANGES BILATERALLY. LEGS WRAPPED LOOSELY WITH DRESSINGS, WHICH HAVE AREAS THAT ARE SOAKED THROUGH WITH DRAINAGE. ) Neurologic/Psychiatric: Alert, Oriented x3, No Motor/Sensory Deficits, Normal Mood/Affect, clinical rn manager II-XII Norm as Tested Skin: Normal Color, Warm/Dry, Other (LEGS NOTED ABOVE. EXTENSIVE SCARS TO CHEST, ARMS, UPPER BACK--APPEARANCE OF SCARS FROM PREVIOUS "PICKING". ALSO WITH MULTIPLE EXCORIATIONS TO BILATERAL FOREARMS. ) Procedures/Interventions Date of ETT Placement: Oct 07, 2019 Time of ETT Placement: 0100 Progress/Results/Core Measures Suspected Sepsis SIRS Temperature: Pulse: Respiratory Rate: Laboratory Tests 03/11/21 04:25: White Blood Count 10.9 Blood Pressure / Mean: Laboratory Tests 03/11/21 04:25: Creatinine 1.34H, Platelet Count 248, Total Bilirubin 0.6 03/11/21 04:46: INR Comment 1.0 Results/Orders Lab Results Laboratory Tests Test 03/11/21 04:25 03/11/21 04:46 03/11/21 05:07 Range/Units White Blood Count 10.9 4.3-11.0 10^3/uL Red Blood Count 3.58 L 3.80-5.11 10^6/uL Hemoglobin 9.7 L 11.5-16.0 g/dL Hematocrit 32 L 35-52 % Mean Corpuscular Volume 89 80-99 fL Mean Corpuscular Hemoglobin 27 25-34 pg Mean Corpuscular Hemoglobin Concent 31 L 32-36 g/dL Red Cell Distribution Width 20.5 H 10.0-14.5 % Platelet Count 248 130-400 10^3/uL Mean Platelet Volume 9.1 9.0-12.2 fL Immature Granulocyte % (Auto) 1 % Neutrophils (%) (Auto) 80 H 42-75 % Lymphocytes (%) (Auto) 10 L 12-44 % Monocytes (%) (Auto) 6 0-12 % Eosinophils (%) (Auto) 3 0-10 % Basophils (%) (Auto) 0 0-10 % Neutrophils # (Auto) 8.7 H 1.8-7.8 10^3/uL Lymphocytes # (Auto) 1.1 1.0-4.0 10^3/uL Monocytes # (Auto) 0.6 0.0-1.0 10^3/uL Eosinophils # (Auto) 0.4 H 0.0-0.3 10^3/uL Basophils # (Auto) 0.0 0.0-0.1 10^3/uL Immature Granulocyte # (Auto) 0.1 0.0-0.1 10^3/uL Sodium Level 134 L 135-145 MMOL/L Potassium Level 6.1 H 3.6-5.0 MMOL/L Chloride Level 91 L 98-107 MMOL/L Carbon Dioxide Level 29 21-32 MMOL/L Anion Gap 14 5-14 MMOL/L Blood Urea Nitrogen 19 H 7-18 MG/DL Creatinine 1.34 H 0.60-1.30 MG/DL Estimat Glomerular Filtration Rate 41 BUN/Creatinine Ratio 14 Glucose Level 119 H 70-105 MG/DL Calcium Level 9.3 8.5-10.1 MG/DL Corrected Calcium 9.5 8.5-10.1 MG/DL Magnesium Level 1.7 1.6-2.4 MG/DL Total Bilirubin 0.6 0.1-1.0 MG/DL Aspartate Amino Transf (AST/SGOT) 35 H 5-34 U/L Alanine Aminotransferase (ALT/SGPT) 10 0-55 U/L Alkaline Phosphatase 164 H 40-136 U/L Troponin I < 0.028 <0.028 NG/ML B-Type Natriuretic Peptide 85.3 <100.0 PG/ML Total Protein 7.6 6.4-8.2 GM/DL Albumin 3.7 3.2-4.5 GM/DL Serum Alcohol < 10 <10 MG/DL Prothrombin Time 13.2 12.2-14.7 SEC INR Comment 1.0 0.8-1.4 Activated Partial Thromboplast Time 25 24-35 SEC Urine Color YELLOW Urine Clarity CLEAR Urine pH 6.0 5-9 Urine Specific [place] 1.010 L 1.016-1.022 Urine Protein NEGATIVE NEGATIVE Urine Glucose (UA) NEGATIVE NEGATIVE Urine Ketones NEGATIVE NEGATIVE Urine Nitrite NEGATIVE NEGATIVE Urine Bilirubin NEGATIVE NEGATIVE Urine Urobilinogen 0.2 < = 1.0 MG/DL Urine Leukocyte Esterase NEGATIVE NEGATIVE Urine RBC (Auto) NEGATIVE NEGATIVE Urine RBC NONE /HPF Urine WBC RARE /HPF Urine Squamous Epithelial Cells 0-2 /HPF Urine Crystals NONE /LPF Urine Bacteria NEGATIVE /HPF Urine Casts NONE /LPF Urine Mucus NEGATIVE /LPF Urine Culture Indicated NO Urine Opiates Screen POSITIVE H NEGATIVE Urine Oxycodone Screen NEGATIVE NEGATIVE Urine Methadone Screen NEGATIVE NEGATIVE Urine Propoxyphene Screen NEGATIVE NEGATIVE Urine Barbiturates Screen NEGATIVE NEGATIVE Ur Tricyclic Antidepressants Screen NEGATIVE NEGATIVE Urine Phencyclidine Screen NEGATIVE NEGATIVE Urine Amphetamines Screen NEGATIVE NEGATIVE Urine Methamphetamines Screen NEGATIVE NEGATIVE Urine Benzodiazepines Screen NEGATIVE NEGATIVE Urine Cocaine Screen NEGATIVE NEGATIVE Urine Cannabinoids Screen NEGATIVE NEGATIVE My Orders Orders - ERENDIRA NUNEZ DO Ed Iv/Invasive Line Start (03/11/21 04:06) Ekg Tracing (03/11/21 04:06) O2 (03/11/21 04:06) Monitor-Rhythm Ecg Trace Only (03/11/21 04:06) Cbc With Automated Diff (03/11/21 04:06) Comprehensive Metabolic Panel (03/11/21 04:06) Magnesium (03/11/21 04:06) Troponin I (03/11/21 04:06) Chest 1 View, Ap/Pa Only (03/11/21 04:06) Aspirin Chewable Tablet (Baby Aspirin Ch (03/11/21 04:30) Protime With Inr (03/11/21 04:29) Partial Thromboplastin Time (03/11/21 04:29) Catheter(Urinary) Insert & Ass 03,15 (03/11/21 04:29) Sodium Polystyrene Sulfonate (Kayexalate (03/11/21 05:00) Calcium Gluconate 10% Inj (Calcium Glu (03/11/21 05:00) D50w (Emergency) Syringe (Dextrose 50% 5 (03/11/21 05:00) Insulin (Regular) Human (Novolin R (Per (03/11/21 05:00) Drug Screen Stat (Urine) (03/11/21 05:00) Ua Culture If Indicated (03/11/21 05:00) Alcohol (03/11/21 05:07) BNP (03/11/21 05:27) Furosemide Injection (Lasix Injection) (03/11/21 06:00) Medications Given in ED Current Medications Medications Dose Ordered Sig/Chery Route Start Time Stop Time Status Last Admin Dose Admin Aspirin 324 mg ONCE ONCE PO 03/11/21 04:30 03/11/21 04:31 DC 03/11/21 04:38 324 MG Calcium Gluconate 4.65 meq ONCE ONCE IV 03/11/21 05:00 03/11/21 05:01 DC 03/11/21 05:21 4.65 MEQ Dextrose 50 ml ONCE ONCE IV 03/11/21 05:00 03/11/21 05:01 DC 03/11/21 05:20 50 ML Insulin Human Regular 10 unit ONCE ONCE IV 03/11/21 05:00 03/11/21 05:01 DC 03/11/21 05:21 10 UNIT Sodium Polystyrene Sulfonate 15 gm ONCE ONCE PO 03/11/21 05:00 03/11/21 05:01 DC 03/11/21 05:21 15 GM Vital Signs/I&O 03/11/21 03/11/21 04:00 04:00 Temp 36.1 Pulse 101 Resp 20 B/P (MAP) 149/82 (104) Pulse Ox 94 94 O2 Delivery Nasal Cannula Nasal Cannula O2 Flow Rate 2.00 2.00 Capillary Refill : Progress Note : Progress Note PT HAS NO COMPLAINTS OF ANY KIND FOR ENTIRE ER STAY 0455--PT ADVISED THAT SHE WOULD NEED A CATHETER TO MONITOR URINE OUTPUT, SHE DECLINES AND NOW SUDDENLY NEEDS TO URINATE. PT VOIDED 110 ML DENIES OPIATE USE, BUT UDS IS + FOR OPIATES--LONG HX OF OPIATE ABUSE ECG Initial ECG Impression Date: Mar 11, 2021 Initial ECG Impression Time: 04:09 Initial ECG Rate: 97 Initial ECG Rhythm: Normal Sinus Diagnostic Imaging Comments CXR--NO ACUTE PROCESS, PENDING RADIOLOGIST REVIEW Reviewed: Reviewed by Me Departure Communication (Admissions) [id number]--SPOKE WITH DR. DUNLAP, ACCEPTS PT FOR ADMIT Impression Primary Impression: Chest pain Additional Impressions: CHRONIC LEG EDEMA CHRONIC WOUNDS OF LOWER LEGS CHRONIC CELLULITIS OF LOWER LEGS Hyperkalemia COPD (chronic obstructive pulmonary disease) Very heavy cigarette smoker (40 or more per day) Chronic renal insufficiency Chronic anemia OPIATE ABUSE Disposition: ADMITTED INPATIENT Condition: Stable Admissions Decision to Admit Reason: Admit from ER (General) Decision to Admit/Date: Mar 11, 2021 Time/Decision to Admit Time: 05:40 Departure-Patient Inst. Referrals: BROOKE JOYNER DO (PCP/Family) Primary Care Physician ERENDIRA NUNEZ DO Mar 11, 2021 05:25
[2021-03-11 05:28] LABS: AMPHETAMINE SCREEN, URINE NEGATIVE (NEGATIVE); BARBITURATE SCREEN URINE NEGATIVE (NEGATIVE); BENZODIAZEPINES SCREEN URINE NEGATIVE (NEGATIVE); CANNABINOID SCREEN, URINE NEGATIVE (NEGATIVE); COCAINE SCREEN URINE NEGATIVE (NEGATIVE); METHADONE STAT NEGATIVE (NEGATIVE); METHAMPHETAMINE SCREEN URINE S NEGATIVE (NEGATIVE); OPIATE SCREEN URINE POSITIVE (NEGATIVE); OXYCODONE STAT NEGATIVE (NEGATIVE); PROPOXYPHENE STAT NEGATIVE (NEGATIVE); TRICYCLIC ANTIDEPRESSANTS SCRE NEGATIVE (NEGATIVE)
[2021-03-11 05:37] LABS: BACTERIA,URINE NEGATIVE /HPF; SQUAMOUS EPITHELIAL CELL,UR 0-2 /HPF; WBC,URINE RARE /HPF
[2021-03-11] MEDS ORDERED: FUROSEMIDE 40 MG/4 ML INJ (LASIX) IVP ONE (06:00)
[2021-03-11 06:54] VITALS: BP 127/69
[2021-03-11 07:00] VITALS: BP 127/69
[2021-03-11] MEDS ORDERED: ONDANSETRON 4 MG/2 ML (SDV) Z0FRAN IVP PRN (07:00)
[2021-03-11] MEDS ORDERED: NITROGLYCERIN 0.4 MG SL TABS BTL 25'S SL PRN (07:00)
--- NOTE | 2021-03-11 07:25 | Diagnostic Imaging Report ---
EXAM: CHEST 1 VIEW, AP/PA ONLY INDICATION: Chest pain. COMPARISON: Chest radiograph 02/03/2021. FINDINGS: Normal heart size and central pulmonary vascularity. No focal pulmonary opacity, pleural effusion or pneumothorax. No acute osseous findings. No significant change. IMPRESSION: No acute cardiopulmonary findings. Dictated by: Dictated on workstation # [id number]
[2021-03-11] MEDS: ASPIRIN E.C. 81 MG (ECOTRIN) TAB PO SCH (08:11)
[2021-03-11 10:21] LABS: CALCIUM 9.8 MG/DL (8.5-10.1); CREATININE SERUM 1.3 MG/DL (0.60-1.30); POTASSIUM 4.4 MMOL/L (3.6-5.0)
--- NOTE | 2021-03-11 13:06 | Consultation-Cardiology ---
HPI-Cardiology Cardiology Consultation: Date of Consultation 03/11/21 Time Seen by a Provider: 13:10 Date of Admission 03-10-21 Attending Physician Deepa Chopra MD Admitting Physician García Hicks DO Consulting Physician Delphine Aggarwal MD HPI: Chief Complaint: CHF Ms. Medellin is a 56 yr old female admitted to [facility] from the ED with c/o LE swelling, SOB and hyperkalemia. She is sitting on the bedside. She reports she has had bilat LE swelling which has progressively been getting worse. She reports redness, blistering and open wounds to her legs bilat which she has been seeing her PCP, but has not seen him recently. She reports she was transferred in December 2020 to [place] d/t renal failure, but did not receive dialysis. She reports she was transferred to [facility] last month again for renal failure, but did not receive dialysis. She states she has not been compliant with her medications d/t not being able to afford them. She reports she was previously taking Xarelto, but stopped it d/t cost. She states she was started on warfarin by her PCP, but has not started it yet. She reports she noticed her HR has been high and blood pressure has been fluctuating a lot at home. She states she has been taking Metoprolol and Lisinopril, which had been stopped, to treat her HR. She does not report any c/o CP, syncope or near syncope. No c/o n/v/d. No c/o fever or chills. Review of Systems-Cardiology Review of Systems Constitutional: No chills, No fever; malaise Eyes: No vision change Ears/Nose/Throat: epistaxis; No recent hearing loss Respiratory: As described under HPI Cardiovascular: As described under HPI Gastrointestinal: No constipation, No diarrhea, No nausea, No vomiting Genitourinary: No dysuria, No hematuria Musculoskeletal: no symptoms reported Skin: other, skin related problems, ulcerations Psychiatric/Neurological: anxiety; No depression, No seizure, No focal weakness, No syncope Hematologic: No bleeding abnormalities AXW-Ehhgfi-Xqwqfh Hx Patient Social History Smoking Status: Current Everyday Smoker 2nd Hand Smoke Exposure: Yes Have you traveled recently?: No Alcohol Use?: Yes Substance type: Opiates/Opioids, Misuse of prescript meds Pt feels they are or have been: No Tobacco type used: Cigarettes Immunizations Up To Date Tetanus Booster (TDap): Unknown Date of Influenza Vaccine: Jul 11, 2020 Past Medical History PMH As described under Assessment. Family Medical History Family Medical History: Reproted h/o father had an [place], CVA and HTN. Mother with h/o HTN. Family History: Cerebrovascular accident (CVA) 19 FATHER, Onset:60 years & older FH: testicular cancer G8 BROTHER, Onset:30's - 40 Hypertension 19 FATHER, Onset:Unknown 19 MOTHER, Onset:Unknown G8 BROTHER, Onset:Unknown G8 BROTHER, Onset:Unknown Myocardial infarction 19 FATHER, Onset:40's - 50 Allergies and Home Medications Allergies Coded Allergies: No Known Drug Allergies (Unverified , 04/29/19) Home Medications Aspirin 81 Mg Tab.chew, 81 MG PO DAILY, (Reported) Last Action: Reviewed Bumetanide 1 Mg Tablet, 1 MG PO 0800,1500, (Reported) Last Action: Held Fluoxetine HCl 10 Mg Tablet, 10 MG PO DAILY, (Reported) LAST FILLED 12-31-2020 #30/30 DAY SUPPLY Last Action: Continued Gabapentin 600 Mg Tablet, 600 MG PO TID, (Reported) Last Action: Continued Potassium Chloride 10 Meq Tablet.er, 10 MEQ PO DAILY, (Reported) Last Action: Held Triamcinolone Acet 15 Gm Cr, 1 APPLIC TOP BID PRN for RASH, (Reported) Last Action: Held Warfarin Sodium 2 Mg Tablet, 2 MG PO DAILY, (Reported) Last Action: Held Physical Exam-Cardiology Physical Exam Vital Signs/I&O 03/11/21 03/11/21 03/12/21 03/12/21 20:37 23:00 00:04 01:00 Temp 36.2 Pulse 110 101 Resp 18 B/P (MAP) 116/56 (76) Pulse Ox 91 91 O2 Delivery Nasal Cannula Nasal Cannula Nasal Cannula O2 Flow Rate 2.00 2.00 2.00 03/12/21 03/12/21 03/12/21 02:26 04:45 07:23 Temp 36.4 36.5 Pulse 102 95 Resp 16 20 B/P (MAP) 131/75 (93) 127/75 (92) Pulse Ox 93 92 91 O2 Delivery Nasal Cannula Nasal Cannula Nasal Cannula O2 Flow Rate 2.00 2.00 3.00 03/12/21 00:00 Intake Total 1940 ml Balance 1940 ml Capillary Refill : Less Than 3 Seconds Constitutional: AAO x 3, well-developed, well-nourished HEENT: PERRL, hearing is well preserved; No oral hygience is good Neck: No carotid bruit; carotid pulses are 2 + bilaterally Respiratory: No accessory muscle use, No respiratory distress; chest expansion is symmetric, chest is bilaterally symmetric, rhonchi (scattered), other (diminished lower lobes bilat) Cardiovascular: No JVD; tachycardia, S1 and S2 Gastrointestinal: No tender; soft, audible bowel sounds Extremities: other (bilat LE pitting edema ) Neurologic/Psychiatric: grossly intact (moves all extremities) Skin: other (dressings in place to LE bilat; D&I; redness noted to the upper calves bilat that can be visualized) Data Review Labs Laboratory Tests 03/11/21 09:50: Sodium Level 138, Potassium Level 4.4, Chloride Level 93L, Carbon Dioxide Level 34H, Anion Gap 11, Blood Urea Nitrogen 18, Creatinine 1.30, Estimat Glomerular Filtration Rate 42, BUN/Creatinine Ratio 14, Glucose Level 114H, Calcium Level 9.8 03/12/21 05:15: Sodium Level 142, Potassium Level 3.7, Chloride Level 98, Carbon Dioxide Level 34H, Anion Gap 10, Blood Urea Nitrogen 20H, Creatinine 1.30, Estimat Glomerular Filtration Rate 42, BUN/Creatinine Ratio 15, Glucose Level 124H, Calcium Level 9.1, White Blood Count 6.5, Red Blood Count 3.20L, Hemoglobin 8.6L, Hematocrit 29L, Mean Corpuscular Volume 92, Mean Corpuscular Hemoglobin 27, Mean Corpuscular Hemoglobin Concent 29L, Red Cell Distribution Width 20.5H, Platelet Count 273, Mean Platelet Volume 8.8L, Immature Granulocyte % (Auto) 1, Neutrophils (%) (Auto) 66, Lymphocytes (%) (Auto) 22, Monocytes (%) (Auto) 7, Eosinophils (%) (Auto) 4, Basophils (%) (Auto) 0, Neutrophils # (Auto) 4.2, Lymphocytes # (Auto) 1.4, Monocytes # (Auto) 0.5, Eosinophils # (Auto) 0.3, Basophils # (Auto) 0.0, Immature Granulocyte # (Auto) 0.1, Corrected Calcium 9.7, Total Bilirubin 0.3, Aspartate Amino Transf (AST/SGOT) 16, Alanine Aminotransferase (ALT/SGPT) 9, Alkaline Phosphatase 132, Total Protein 5.7L, Albumin 3.2 Radiology NAME: ZEKE MEDELLIN [facility] REC#: [id number] PT STATUS: ADM IN : 1965 PHYSICIAN: ERENDIRA NUNEZ DO ADMIT DATE: 03/11/21/[facility] Signed Date of Exam:03/11/21 CHEST 1 VIEW, AP/PA ONLY EXAM: CHEST 1 VIEW, AP/PA ONLY INDICATION: Chest pain. COMPARISON: Chest radiograph 02/03/2021. FINDINGS: Normal heart size and central pulmonary vascularity. No focal pulmonary opacity, pleural effusion or pneumothorax. No acute osseous findings. No significant change. IMPRESSION: No acute cardiopulmonary findings. Dictated by: Dictated on workstation # [id number] Dict: 03/11/21 0722 Trans: 03/11/21 1055 CVB [id number] Interpreted by: YEYO AMBRIZ MD Electronically signed by: YEYO AMBRIZ MD 03/11/21 1055 ECG Impression ECG Initial ECG Rhythm: Normal Sinus A/P-Cardiology Assessment/Admission Diagnosis Chronic diastolic CHF - clinically compensated Bilateral leg swelling: likely secondary to venous insufficiency with probable cellulitis PAF, first diagnosed on a hospitalization of Sep 2019 during hospitalization with acute respiratory failure and pneumonia - currently SR per EKG of Jul 26, 2020 - Previously on OAC with Xarelto, stopped because she could not afford - changed to warfarin by her PCP, but has not been taking it COPD Chest discomfort, chronic, non-cardiac (based on card cath of 09/17/18). No chest discomfort currently - Card cath of 09/07/18: minimal CAD, LVEF 70-75%, elevated LVEDP Echo of 01/23/20 (Dr Velazco): LVEF 55-65%, grade 2 quesada dysfunction, mild to mod left atrial enlargement. PASP 35-40 mmHg H/o hypertension H/o opiate addiction; clean for several years Chronic tobacco use - cessation advised Fam h/o early CAD Hyperlipidemia Borderline DM II (fasting blood glucose on 09/07/18) Carotid u/s on 01/05/19: no significant dz H/o L leg and R arm DVT in late 2017 / early 2018, treated with rivaroxaban Non-compliance with medications, follow up and instructions Discussion and Recomendations Complex management with multiple co-morbidities as noted above Acute hyperkalemia likely secondary to BLANCA (-), has improved following cessation and kayexalate Bilat LE wounds and swelling suspected cellulitis - management per medical services Chronic diastolic CHF - clinically compensated (normal BNP) Change diuretics to oral Start OAC wtih Xarelto d/t known h/o PAF Start BB tx Monitor lab closely Further recs will be based on her hospital course We would like to thank medical services for this consult Social service consult Advise consult to Dr. Bejarano for wound care DELROY TURNER Mar 11, 2021 13:06
[2021-03-11 13:16] VITALS: BP 125/73
[2021-03-11] MEDS ORDERED: WARF-47 PO (14:05)
[2021-03-11] MEDS ORDERED: TR1C15 TOP (14:05)
[2021-03-11] MEDS ORDERED: POTA10TA6 PO (14:05)
[2021-03-11] MEDS ORDERED: ASPI-999 PO (14:05)
[2021-03-11] MEDS ORDERED: BUME1TAB8 PO (14:05)
--- NOTE | 2021-03-11 15:39 | History & Physical-Hospitalist ---
History of Present Illness Date Seen 03/11/21 Attending Physician Deepa Chopra MD PCP García Hicks DO Referring Physician Date of Admission Mar 11, 2021 at 05:40 Home Medications & Allergies Home Medications Reviewed patient Home Medication Reconciliation performed by pharmacy medication reconciliations hazardous materials waste technician and/or nursing. Patients Allergies have been reviewed. Allergies Allergies Coded Allergies No Known Drug Allergies (Unverified04/29/19) Past Ejqvwci-Weffio-Ygamqt Hx Patient Social History Tobacco Use?: Yes Tobacco type used: Cigarettes Smoking Status: Current Everyday Smoker Smokeless Tobacco Frequency: Never a User Use of E-Cig and/or Vaping dev: Yes E-Cig or Vaping type used: Nicotine Use of E-Cig and/or Vaping Salvatore: Light User Substance use?: No Substance type: Opiates/Opioids, Misuse of prescript meds Additional substance use comme: stated use was 10+ years ago Substance frequency: Rarely Alcohol Use?: Yes Alcohol type: Hard Liquor Alcohol Frequency: Once in a while Pt feels they are or have been: No Immunizations Up To Date Date of Influenza Vaccine: Jul 11, 2020 Tetanus Booster (TDap): Unknown Seasonal Allergies Seasonal Allergies: Yes Current Status status: No status: No Advance Directives: No Communicates: Verbally Primary Language: Kittitian Preferred Spoken Language: Kittitian Is interpretation needed?: No Sensory deficits: Vision impairment Implanted or Applied Medical D: None Past Medical History Surgeries: Hysterectomy Pneumonia, Chronic Bronchitis, COPD Atrial Fibrillation, Deep Vein Thrombosis, High Cholesterol, Hypertension Paralysis 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 Sexually Transmitted Disease: No HIV/AIDS: No Renal Failure, UTI-Chronic Gastroesophageal Reflux Bipolar, Depression Blood Disorders: No Adverse Reaction/Blood Tranf: No Family Medical History Cerebrovascular accident (CVA) 19 FATHER, Onset:60 years & older FH: testicular cancer G8 BROTHER, Onset:30's - 40 Hypertension 19 FATHER, Onset:Unknown 19 MOTHER, Onset:Unknown G8 BROTHER, Onset:Unknown G8 BROTHER, Onset:Unknown Myocardial infarction 19 FATHER, Onset:40's - 50 Heart Disease, Hypertension SOCIAL HISTORY: -ETOH --ABUSE/REGULAR USE -DRUGS--LONG HISTORY OF OPIATE ABUSE -SMOKES 2 PPD ADDITIONAL PMH: -12/14/2020-TRANSFERRED TO [facility] FOR SEPTIC SHOCK WITH ACUTE RENAL FAILURE DUE TO CELLULITIS OF LEGS. -02/03/21-TRANSFERRED TO [place] FOR SEPSIS WITH ACUTE RENAL FAILURE, ALSO DUE TO CELLULITIS OF LEGS. -ADMITTED AND INTUBATED X 1 MONTH IN SEPTEMBER 2019 FOR BILATERAL PNEUMONIA AND ARDS. HISTORY OF OPIATE ABUSE/ADDICTION--HAS BEEN ON SUBOXONE, BUT STATES SHE CANNOT AFFORD IT AND IS NO LONGER TAKING IT OF 03/11/21 Physical Exam Physical Exam Vital Signs Vital Signs - First Documented Capillary Refill : Less Than 3 Seconds Height, Weight, BMI Height: 5'5.00" Weight: 218lbs. 0.0oz. 98.288440sv; 31.22 BMI Method:Stated Results Results/Procedures Labs Laboratory Tests 03/11/21 04:25 03/11/21 09:50 Patient resulted labs reviewed. ACE DIAMOND MD Mar 11, 2021 15:39
[2021-03-11 16:00] VITALS: BP 102/76
[2021-03-11] MEDS ORDERED: RIVAROXABAN 20 MG TABLET (XARELTO) PO SCH (17:00)
--- NOTE | 2021-03-11 17:08 | Consultation-Cardiology ---
HPI-Cardiology Cardiology Consultation: Date of Consultation 03/11/21 Time Seen by a Provider: 17:00 Date of Admission Attending Physician Sapphire Tolliver MD Admitting Physician García Hicks DO Consulting Physician JESS CONLEY MD, MA, FACP, FACC, FSCAI, CCDS HPI: Chief Complaint: Reason for consultation: Chest discomfort, palpitations, chest discomfort, swelling and redness of legs HPI Ms. Hicks is a 56 yr old female admitted to [facility] from the ED with c/o LE swelling, SOB and hyperkalemia. She is sitting on the bedside. She reports she has had bilat LE swelling which has progressively been getting worse. She reports redness, blistering and open wounds to her legs bilat which she has been seeing her PCP, but has not seen him recently. She reports she was transferred in December 2020 to [place] d/t renal failure, but did not receive dialysis. She reports she was transferred to [facility] last month again for renal failure, but did not receive dialysis. She states she has not been compliant with her medications d/t not being able to afford them. She reports she was previously taking Xarelto, but stopped it d/t cost. She states she was started on warfarin by her PCP, but has not started it yet. She reports she noticed her HR has been high and blood pressure has been fluctuating a lot at home. She states she has been taking Metoprolol and Lisinopril, which had been stopped, to treat her HR. She does not report any c/o CP, syncope or near syncope. No c/o n/v/d. No c/o fever or chills. Review of Systems-Cardiology Review of Systems Constitutional: No chills, No fever; malaise Eyes: No vision change Ears/Nose/Throat: epistaxis; No recent hearing loss Respiratory: As described under HPI Cardiovascular: As described under HPI Gastrointestinal: No constipation, No diarrhea, No nausea, No vomiting Genitourinary: No dysuria, No hematuria Musculoskeletal: no symptoms reported Skin: other (swelling and redness of skin of lower legs), skin related problems, ulcerations Psychiatric/Neurological: anxiety; No depression, No seizure, No focal weakness, No syncope Hematologic: No bleeding abnormalities RZQ-Myxonk-Ofbokv Hx Patient Social History Smoking Status: Current Everyday Smoker 2nd Hand Smoke Exposure: Yes Have you traveled recently?: No Alcohol Use?: Yes Substance type: Opiates/Opioids, Misuse of prescript meds Pt feels they are or have been: No Tobacco type used: Cigarettes Immunizations Up To Date Tetanus Booster (TDap): Unknown Date of Influenza Vaccine: Jul 11, 2020 Past Medical History PMH As described under Assessment. Family Medical History Family Medical History: Reproted h/o father had an [place], CVA and HTN. Mother with h/o HTN. Family History: Cerebrovascular accident (CVA) 19 FATHER, Onset:60 years & older FH: testicular cancer G8 BROTHER, Onset:30's - 40 Hypertension 19 FATHER, Onset:Unknown 19 MOTHER, Onset:Unknown G8 BROTHER, Onset:Unknown G8 BROTHER, Onset:Unknown Myocardial infarction 19 FATHER, Onset:40's - 50 Allergies and Home Medications Allergies Coded Allergies: No Known Drug Allergies (Unverified , 04/29/19) Home Medications Aspirin 81 Mg Tab.chew, 81 MG PO DAILY, (Reported) Last Action: Reviewed Bumetanide 1 Mg Tablet, 1 MG PO 0800,1500, (Reported) Last Action: Reviewed Fluoxetine HCl 10 Mg Tablet, 10 MG PO DAILY, (Reported) LAST FILLED 12-31-2020 #30 DAY SUPPLY Last Action: Reviewed Gabapentin 600 Mg Tablet, 600 MG PO TID, (Reported) Last Action: Reviewed Potassium Chloride 10 Meq Tablet.er, 10 MEQ PO DAILY, (Reported) Last Action: Reviewed Triamcinolone Acet 15 Gm Cr, 1 APPLIC TOP BID PRN for RASH, (Reported) Last Action: Reviewed Warfarin Sodium 2 Mg Tablet, 2 MG PO DAILY, (Reported) Last Action: Reviewed Patient Home Medication List Home Medication List Reviewed: Yes Physical Exam-Cardiology Physical Exam Vital Signs/I&O 03/11/21 03/11/21 03/11/21 03/11/21 06:38 06:54 06:58 07:00 Temp 35.2 35.14374 Pulse 93 88 93 88 Resp 18 20 20 B/P (MAP) 110/59 127/69 (88) 127/69 Pulse Ox 95 92 92 O2 Delivery Nasal Cannula Nasal Cannula O2 Flow Rate 2.00 2.00 2.00 03/11/21 03/11/21 03/11/21 03/11/21 07:59 08:00 12:00 12:43 Pulse 114 O2 Delivery Nasal Cannula Nasal Cannula Nasal Cannula O2 Flow Rate 2.00 3.00 3.00 03/11/21 03/11/21 03/11/21 13:16 16:00 16:00 Temp 37.0 37.6 Pulse 107 93 Resp 20 18 B/P (MAP) 125/73 (90) 102/76 (85) Pulse Ox 93 91 O2 Delivery Nasal Cannula Nasal Cannula Nasal Cannula O2 Flow Rate 2.00 3.00 2.00 Capillary Refill : Less Than 3 Seconds Constitutional: AAO x 3, well-developed, well-nourished HEENT: PERRL, hearing is well preserved; No oral hygience is good Neck: No carotid bruit; carotid pulses are 2 + bilaterally Respiratory: No accessory muscle use, No respiratory distress; chest expansion is symmetric, chest is bilaterally symmetric, rhonchi (scattered), other (diminished lower lobes bilat) Cardiovascular: No JVD; tachycardia, S1 and S2 Gastrointestinal: No tender; soft, audible bowel sounds Extremities: other (bilat LE pitting edema; redness and elevated temp of skin of the legs) Neurologic/Psychiatric: grossly intact (moves all extremities) Skin: other (dressings in place to LE bilat; D&I; redness noted to the upper calves bilat that can be visualized) Data Review Labs Laboratory Tests 03/11/21 04:25: White Blood Count 10.9, Red Blood Count 3.58L, Hemoglobin 9.7L, Hematocrit 32L, Mean Corpuscular Volume 89, Mean Corpuscular Hemoglobin 27, Mean Corpuscular Hemoglobin Concent 31L, Red Cell Distribution Width 20.5H, Platelet Count 248, Mean Platelet Volume 9.1, Immature Granulocyte % (Auto) 1, Neutrophils (%) (Auto) 80H, Lymphocytes (%) (Auto) 10L, Monocytes (%) (Auto) 6, Eosinophils (%) (Auto) 3, Basophils (%) (Auto) 0, Neutrophils # (Auto) 8.7H, Lymphocytes # (Auto) 1.1, Monocytes # (Auto) 0.6, Eosinophils # (Auto) 0.4H, Basophils # (Auto) 0.0, Immature Granulocyte # (Auto) 0.1, Sodium Level 134L, Potassium Level 6.1H, Chloride Level 91L, Carbon Dioxide Level 29, Anion Gap 14, Blood Urea Nitrogen 19H, Creatinine 1.34H, Estimat Glomerular Filtration Rate 41, BUN/Creatinine Ratio 14, Glucose Level 119H, Calcium Level 9.3, Corrected Calcium 9.5, Magnesium Level 1.7, Total Bilirubin 0.6, Aspartate Amino Transf (AST/SGOT) 35H, Alanine Aminotransferase (ALT/SGPT) 10, Alkaline Phosphatase 164H, Troponin I < 0.028, B-Type Natriuretic Peptide 85.3, Total Protein 7.6, Albumin 3.7, Serum Alcohol < 10 03/11/21 04:46: Prothrombin Time 13.2, INR Comment 1.0, Activated Partial Thromboplast Time 25 03/11/21 05:07: Urine Color YELLOW, Urine Clarity CLEAR, Urine pH 6.0, Urine Specific [place] 1.010L, Urine Protein NEGATIVE, Urine Glucose (UA) NEGATIVE, Urine Ketones NEGATIVE, Urine Nitrite NEGATIVE, Urine Bilirubin NEGATIVE, Urine Urobilinogen 0.2, Urine Leukocyte Esterase NEGATIVE, Urine RBC (Auto) NEGATIVE, Urine RBC NONE, Urine WBC RARE, Urine Squamous Epithelial Cells 0-2, Urine Crystals NONE, Urine Bacteria NEGATIVE, Urine Casts NONE, Urine Mucus NEGATIVE, Urine Culture Indicated NO, Urine Opiates Screen POSITIVEH, Urine Oxycodone Screen NEGATIVE, Urine Methadone Screen NEGATIVE, Urine Propoxyphene Screen NEGATIVE, Urine B arbiturates Screen NEGATIVE, Ur Tricyclic Antidepressants Screen NEGATIVE, Urine Phencyclidine Screen NEGATIVE, Urine Amphetamines Screen NEGATIVE, Urine Methamphetamines Screen NEGATIVE, Urine Benzodiazepines Screen NEGATIVE, Urine Cocaine Screen NEGATIVE, Urine Cannabinoids Screen NEGATIVE 03/11/21 09:50: Sodium Level 138, Potassium Level 4.4, Chloride Level 93L, Carbon Dioxide Level 34H, Anion Gap 11, Blood Urea Nitrogen 18, Creatinine 1.30, Estimat Glomerular Filtration Rate 42, BUN/Creatinine Ratio 14, Glucose Level 114H, Calcium Level 9.8 Laboratory Tests 03/11/21 04:25 03/11/21 09:50 A/P-Cardiology Assessment/Admission Diagnosis Bilateral leg cellulitis and venous insufficiency CKD-4 H/o chronic diastolic CHF - clinically compensated (normal BNP) PAF, first diagnosed on a hospitalization of Sep 2019 during hospitalization with acute respiratory failure and pneumonia - currently SR per EKG of Jul 26, 2020 - Previously on OAC with Xarelto, stopped because she could not afford - changed to warfarin by her PCP, but has not been taking it COPD Chest discomfort, chronic, non-cardiac (based on card cath of 09/17/18). No chest discomfort currently - Card cath of 09/07/18: minimal CAD, LVEF 70-75%, elevated LVEDP Echo of 01/23/20 (Dr Velazco): LVEF 55-65%, grade 2 quesada dysfunction, mild to mod left atrial enlargement. PASP 35-40 mmHg H/o hypertension H/o opiate addiction; clean for several years Chronic tobacco use - cessation advised Fam h/o early CAD Hyperlipidemia Borderline DM II (fasting blood glucose on 09/07/18) Carotid u/s on 01/05/19: no significant dz H/o L leg and R arm DVT in late 2017 / early 2018, treated with rivaroxaban Non-compliance with medications, follow up and instructions Discussion and Recomendations Treat cellulitis, management is by the Hospitalist svce Wound care consult recommended Acute hyperkalemia likely secondary to BLANCA (-), has improved following cessation and kayexalate Bilat LE wounds and swelling suspected cellulitis - management per medical services Chronic diastolic CHF - clinically compensated (normal BNP) Change diuretics to oral Start OAC wtih Xarelto d/t known h/o PAF Start BB tx Monitor lab closely Further recs will be based on her hospital course Social service consult JESS CONLEY MD FACP FAC CCDS Mar 11, 2021 17:08
[2021-03-11] MEDS ORDERED: MELATONIN 3 MG TABLET PO PRN (19:00)
[2021-03-11] MEDS ORDERED: polyethylene glycoL POWDER 17 GM (MIRALAX) PACK PO PRN (19:00)
[2021-03-11] MEDS ORDERED: ACETAMINOPHEN 325 MG TABLET PO PRN (19:00)
[2021-03-11] MEDS ORDERED: ANTACID SUSP 30 ML UDC (MYLANTA) PO PRN (19:00)
[2021-03-11] MEDS ORDERED: diphenhydrAMINE 25 MG TAB (BENADRYL) PO PRN (19:00)
[2021-03-11 19:51] VITALS: BP 123/73
[2021-03-11] MEDS: DOCUSATE SODIUM 100 MG (COLACE) CAP PO SCH (20:32)
[2021-03-11] MEDS: SENNOSIDES 8.6 MG (SENOKOT) TAB PO SCH (20:32)
[2021-03-11] MEDS: GABAPENTIN 600 MG (NEURONTIN) TAB PO SCH (20:37)
[2021-03-12 00:04] VITALS: BP 116/56
[2021-03-12 04:45] VITALS: BP 131/75
[2021-03-12 05:31] LABS: BASOPHILS % (AUTO) 0 % (0-10); EOSINOPHILS # (AUTO) 0.3 10^3/uL (0.0-0.3); EOSINOPHILS % (AUTO) 4 % (0-10); HEMATOCRIT 29 % (35-52); HEMOGLOBIN 8.6 g/dL (11.5-16.0); LYMPHOCYTES # (AUTO) 1.4 10^3/uL (1.0-4.0); LYMPHOCYTES % (AUTO) 22 % (12-44); MEAN CORPUSCULAR HEMOGLOBIN 27 pg (25-34); MEAN CORPUSCULAR HGB CONC 29 g/dL (32-36); MEAN CORPUSCULAR VOLUME 92 fL (80-99); MEAN PLATELET VOLUME 8.8 fL (9.0-12.2); MONOCYTES # (AUTO) 0.5 10^3/uL (0.0-1.0); MONOCYTES % (AUTO) 7 % (0-12); NEUTROPHILS # (AUTO) 4.2 10^3/uL (1.8-7.8); NEUTROPHILS % (AUTO) 66 % (42-75); PLATELET COUNT 273 10^3/uL (130-400); WHITE BLOOD COUNT 6.5 10^3/uL (4.3-11.0)
[2021-03-12 05:47] LABS: ALBUMIN 3.2 GM/DL (3.2-4.5); BILIRUBIN,TOTAL 0.3 MG/DL (0.1-1.0); CALCIUM 9.1 MG/DL (8.5-10.1); CREATININE SERUM 1.3 MG/DL (0.60-1.30); POTASSIUM 3.7 MMOL/L (3.6-5.0); TOTAL PROTEIN 5.7 GM/DL (6.4-8.2)
[2021-03-12 07:23] VITALS: BP 127/75
[2021-03-12] MEDS: GABAPENTIN 600 MG (NEURONTIN) TAB PO SCH (08:18)
[2021-03-12] MEDS: ASPIRIN E.C. 81 MG (ECOTRIN) TAB PO SCH (08:18)
[2021-03-12] MEDS: DOCUSATE SODIUM 100 MG (COLACE) CAP PO SCH (08:19)
[2021-03-12] MEDS: SENNOSIDES 8.6 MG (SENOKOT) TAB PO SCH (08:19)
--- NOTE | 2021-03-12 08:43 | Progress Note - Cardiology ---
Cardiology SOAP Progress Note Subjective: Sitting up in bed States she feels good this morning No c/o SOB or CP LE swelling has improved Dressings in place Objective: I&O/Vital Signs 03/11/21 03/11/21 03/12/21 03/12/21 20:37 23:00 00:04 01:00 Temp 36.2 Pulse 110 101 Resp 18 B/P (MAP) 116/56 (76) Pulse Ox 91 91 O2 Delivery Nasal Cannula Nasal Cannula Nasal Cannula O2 Flow Rate 2.00 2.00 2.00 03/12/21 03/12/21 03/12/21 02:26 04:45 07:23 Temp 36.4 36.5 Pulse 102 95 Resp 16 20 B/P (MAP) 131/75 (93) 127/75 (92) Pulse Ox 93 92 91 O2 Delivery Nasal Cannula Nasal Cannula Nasal Cannula O2 Flow Rate 2.00 2.00 3.00 03/12/21 00:00 Intake Total 1940 ml Balance 1940 ml Weight (Pounds): 218 Weight (Ounces): 0.0 Weight (Calculated Kilograms): 98.473586 Constitutional: AAO x 3, well-developed, well-nourished Respiratory: No accessory muscle use, No respiratory distress; chest expansion is symmetric, chest is bilaterally symmetric, rhonchi (scattered), other (diminished lower lobes bilat) Cardiovascular: No JVD; tachycardia, S1 and S2 Gastrointestional: No tender; soft, audible bowel sounds Extremities: other (bilat LE pitting edema; redness and elevated temp of skin of the legs) Neurologic/Psychiatric: grossly intact (moves all extremities) Skin: other (dressings in place to LE bilat; D&I; redness noted to the upper calves bilat that can be visualized) Results/Procedures: Labs Laboratory Tests 03/11/21 09:50: Sodium Level 138, Potassium Level 4.4, Chloride Level 93L, Carbon Dioxide Level 34H, Anion Gap 11, Blood Urea Nitrogen 18, Creatinine 1.30, Estimat Glomerular Filtration Rate 42, BUN/Creatinine Ratio 14, Glucose Level 114H, Calcium Level 9.8 03/12/21 05:15: Sodium Level 142, Potassium Level 3.7, Chloride Level 98, Carbon Dioxide Level 34H, Anion Gap 10, Blood Urea Nitrogen 20H, Creatinine 1.30, Estimat Glomerular Filtration Rate 42, BUN/Creatinine Ratio 15, Glucose Level 124H, Calcium Level 9.1, White Blood Count 6.5, Red Blood Count 3.20L, Hemoglobin 8.6L, Hematocrit 29L, Mean Corpuscular Volume 92, Mean Corpuscular Hemoglobin 27, Mean Corpuscular Hemoglobin Concent 29L, Red Cell Distribution Width 20.5H, Platelet Count 273, Mean Platelet Volume 8.8L, Immature Granulocyte % (Auto) 1, Neutrophils (%) (Auto) 66, Lymphocytes (%) (Auto) 22, Monocytes (%) (Auto) 7, Eosinophils (%) (Auto) 4, Basophils (%) (Auto) 0, Neutrophils # (Auto) 4.2, Lymphocytes # (Auto) 1.4, Monocytes # (Auto) 0.5, Eosinophils # (Auto) 0.3, Basophils # (Auto) 0.0, Immature Granulocyte # (Auto) 0.1, Corrected Calcium 9.7, Total Bilirubin 0.3, Aspartate Amino Transf (AST/SGOT) 16, Alanine Aminotransferase (ALT/SGPT) 9, Alkaline Phosphatase 132, Total Protein 5.7L, Albumin 3.2 Laboratory Tests 03/11/21 04:25 03/11/21 09:50 03/12/21 05:15 A/P: Assessment: Bilateral leg cellulitis and venous insufficiency CKD-4 H/o chronic diastolic CHF - clinically compensated (normal BNP) PAF, first diagnosed on a hospitalization of Sep 2019 during hospitalization with acute respiratory failure and pneumonia - currently SR per EKG of Jul 26, 2020 - Previously on OAC with Xarelto, stopped because she could not afford - changed to warfarin by her PCP, but has not been taking it COPD Chest discomfort, chronic, non-cardiac (based on card cath of 09/17/18). No chest discomfort currently - Card cath of 09/07/18: minimal CAD, LVEF 70-75%, elevated LVEDP Echo of 01/23/20 (Dr Velazco): LVEF 55-65%, grade 2 quesada dysfunction, mild to mod left atrial enlargement. PASP 35-40 mmHg Anemia of undetermined etiology - medical services managing H/o hypertension H/o opiate addiction; clean for several years Chronic tobacco use - cessation advised Fam h/o early CAD Hyperlipidemia Borderline DM II (fasting blood glucose on 09/07/18) Carotid u/s on 01/05/19: no significant dz H/o L leg and R arm DVT in late 2017 / early 2018, treated with rivaroxaban Non-compliance with medications, follow up and instructions Plan: Treat cellulitis, management is by the Hospitalist svce Wound care consult recommended Chronic diastolic CHF - clinically compensated (normal BNP) Start OAC wtih Xarelto d/t known h/o PAF Continue current medication regimen Management of anemia per medical services Social service consult DELROY TURNER Mar 12, 2021 08:43
[2021-03-12] MEDS ORDERED: FUROSEMIDE 40 MG (LASIX) TAB PO SCH (09:00)
[2021-03-12] MEDS ORDERED: FLUoxetine HCL 10 MG (PROzac) CAPSULE/TABLET PO SCH (09:00)
[2021-03-12] MEDS ORDERED: RIVA20TA2 PO (09:56)
[2021-03-12] MEDS ORDERED: CEPH500T PO (09:57)
[2021-03-12] MEDS ORDERED: CEPHALEXIN 250 MG (KEFLEX) CAP PO ONE (10:00)
--- NOTE | 2021-03-12 10:46 | Discharge Summary ---
Discharge Summary Reconcile Patient Problems Problems Reviewed?: Yes Instructions for Patient Via [facility], Assessment/Instructions Take medications as prescribed. Complete your course of antibiotics even if you are feeling better. Follow-up with your primary care physician. Return with worsening symptoms. Physician to follow Patient: Rositajeannie Discharge Diet for Home: Low Sodium Diet Hospital Course Date of Admission: Mar 11, 2021 at 05:40 Admission Diagnosis : Chest pain Family Physician/Provider: García Hicks DO Date of Discharge: 03/12/21 Discharge Diagnosis: Bilateral lower extremity cellulitis, non-cardiac chest pain Hospital Course: Helene Hicks is a 86-year-old female who presented with chest pain and was admitted with bilateral lower extremity cellulitis. Cardiology was consulted and assisted with her care. They did not believe that her chest pain was cardiac in origin. Wound care was consulted and assisted with her lower extremity cellulitis. She was started on Keflex. She will complete a course of antibiotics as an outpatient. She was set up with home health care on discharge. She was discharged home in stable condition. She is to follow-up with her primary care physician in about a week. Labs and Pending Lab Test: Laboratory Tests 03/12/21 05:15: White Blood Count 6.5, Red Blood Count 3.20L, Hemoglobin 8.6L, Hematocrit 29L, Mean Corpuscular Volume 92, Mean Corpuscular Hemoglobin 27, Mean Corpuscular Hemoglobin Concent 29L, Red Cell Distribution Width 20.5H, Platelet Count 273, Mean Platelet Volume 8.8L, Immature Granulocyte % (Auto) 1, Neutrophils (%) (Auto) 66, Lymphocytes (%) (Auto) 22, Monocytes (%) (Auto) 7, Eosinophils (%) (Auto) 4, Basophils (%) (Auto) 0, Neutrophils # (Auto) 4.2, Lymphocytes # (Auto) 1.4, Monocytes # (Auto) 0.5, Eosinophils # (Auto) 0.3, Basophils # (Auto) 0.0, Immature Granulocyte # (Auto) 0.1, Sodium Level 142, Potassium Level 3.7, Chloride Level 98, Carbon Dioxide Level 34H, Anion Gap 10, Blood Urea Nitrogen 20H, Creatinine 1.30, Estimat Glomerular Filtration Rate 42, BUN/Creatinine Ratio 15, Glucose Level 124H, Calcium Level 9.1, Corrected Calcium 9.7, Total Bilirubin 0.3, Aspartate Amino Transf (AST/SGOT) 16, Alanine Aminotransferase (ALT/SGPT) 9, Alkaline Phosphatase 132, Total Protein 5.7L, Albumin 3.2 Home Meds Active Cephalexin 500 Mg Tablet 500 Mg PO TID 14 Days Xarelto Tablet (Rivaroxaban) 20 Mg Tablet 20 Mg PO DAILY@1700 30 Days Reported Aspirin 81 Mg Tab.chew 81 Mg PO DAILY Warfarin Sodium 2 Mg Tablet 2 Mg PO DAILY Klor-Con 10 (Potassium Chloride) 10 Meq Tablet.er 10 Meq PO DAILY Bumetanide 1 Mg Tablet 1 Mg PO 0800,1500 Triamcinolone Acetonide 0.1% Cream (Triamcinolone Acet) 15 Gm Cr 1 Applic TOP BID PRN Gabapentin 600 Mg Tablet 600 Mg PO TID Fluoxetine HCl 10 Mg Tablet 10 Mg PO DAILY LAST FILLED 12-31-2020 #30 DAY SUPPLY Patient Allergies: Coded Allergies: No Known Drug Allergies (Unverified , 04/29/19) Height (Feet): 5 Height (Inches): 5.00 Weight (Pounds): 218 Weight (Ounces): 0.0 Home Health Need/Face to Face Date of Face to Face: Mar 12, 2021 Clinical Findings: Generalized weakness and fatigue, Muscle weakness, Unsteady gait, Wound infection I have seen Pt [id number]: Yes Discharged To: Home Diagnosis/Conditions: Chronic leg wounds Cellulitis AFib Debility Problems/Diagnosis/Condition: (1) Debility (2) Lower extremity cellulitis (3) HTN (hypertension) (4) Paroxysmal A-fib Patient is Homebound due to: Emmett fall risk due to instabilty, Muscle weakness Homebound Status Due to the above stated illness, injury or surgical procedure (medical condition or diagnosis) and associated clinical findings, the patient is homebound because of his/her inability to leave home except with aid of a supportive device and/or person AND leaving the home requires a considerable and taxing effort or is medically contraindicated. Pt req the following assistanc: Aid of another person Home Health Nursing Orders Home Health Services Order: Nursing Services, Feather Stitcher-Evaluate & Treat, Physical Therapy-Evaluate & Treat, Wound Care-Eval/Treat Monitor lower extremity wounds Home Health Infusion Therapy Line Start Date: Mar 11, 2021 Therapy Orders Therapy Orders: OT (must have SN or PT order), Physical Therapy Therapy Specific Orders: Eval assistive deivces, Teach enviro modifications/safety, Gait training, Increase strength/endurance Certify Stmt I certify that this patient is under my care and that I, a nurse practitioner or a physician; a campaign assistant working with me, had a face to face encounter that - meets the physician face to face encounter requirements with this patient as dated. Discharge Physical Exam General: Alert, Oriented X3, Cooperative, No Acute Distress HEENT: Atraumatic, EOMI, Mucous Memb Moist/[place] Lungs: Clear to Auscultation, Normal Air Movement Heart: Regular Rate, Normal S1, Normal S2, No Murmurs Abdomen: Normal Bowel Sounds, Soft, No Tenderness Skin: Other (bilateral lower extremity swelling, erythema, warmth) Neuro: Normal Speech Psych/Mental Status: Mental Status NL, Mood NL ACE DIAMOND MD Mar 12, 2021 10:46
[2021-03-12 11:33] VITALS: BP 129/74
[2021-03-12] MEDS ORDERED: CEPHALEXIN 250 MG (KEFLEX) CAP PO SCH (13:00)
[2021-03-12 13:15] VITALS: BP 129/74
== END 2021-03-12 13:16 | disposition home health service (06) | DRG 603 ==
LOC: EDUNIT# 04:00 → ER 04:02 → CSD 05:40 → 4TH 19:28
PROVIDERS: ADMIT Family Medicine; ATTEND Internal Medicine
DX: L03.116 Cellulitis of left lower limb (principal); I13.0 Hypertensive heart and chronic kidney disease with heart failure and stage 1 through stage 4 chronic kidney disease, or unspecified chronic kidney disease; N18.4 Chronic kidney disease, stage 4 (severe); I50.32 Chronic diastolic (congestive) heart failure; L03.115 Cellulitis of right lower limb; I87.2 Venous insufficiency (chronic) (peripheral); E87.5 Hyperkalemia; J44.9 Chronic obstructive pulmonary disease, unspecified; I48.0 Paroxysmal atrial fibrillation; F17.210 Nicotine dependence, cigarettes, uncomplicated; E78.00 Pure hypercholesterolemia, unspecified; E78.5 Hyperlipidemia, unspecified; K21.9 Gastro-esophageal reflux disease without esophagitis; D64.9 Anemia, unspecified; F31.9 Bipolar disorder, unspecified; F11.10 Opioid abuse, uncomplicated; R73.03 Prediabetes; R07.89 Other chest pain; Z91.14 Patient's other noncompliance with medication regimen; Z86.718 Personal history of other venous thrombosis and embolism; Z79.01 Long term (current) use of anticoagulants; Z79.2 Long term (current) use of antibiotics; Z82.49 Family history of ischemic heart disease and other diseases of the circulatory system
CPT/HCPCS: 36415; 71045; 80048; 80053; 80306; 80320; 81000; 83735; 83880; 84484; 85025; 85610; 85730; 93005; 93041; 94760

== ENCOUNTER → 2021-03-27 | Outpatient (CLI) | payer BC ==
[~2021-03-27] MED LIST changes: +BUME1TAB8 PO; +CEPH500T PO; +POTA10TA6 PO; +TR1C15 TOP; +WARF-47 PO
== END ==
LOC: WOUNDCARE 13:56
PROVIDERS: ATTEND Surgery
DX: I89.0 Lymphedema, not elsewhere classified (principal); L03.115 Cellulitis of right lower limb; L03.116 Cellulitis of left lower limb; I50.9 Heart failure, unspecified; E66.9 Obesity, unspecified; I70.203 Unspecified atherosclerosis of native arteries of extremities, bilateral legs; Z68.32 Body mass index [BMI] 32.0-32.9, adult
CPT/HCPCS: 99213

== ENCOUNTER → 2021-04-03 | Outpatient (CLI) | payer BC ==
[~2021-04-03] MED LIST changes: +ALBU1.25 INH; +BUDE10.7 INH; +BUDE1AMP2 INH; +BUPR1FIL19 PO; +DILT120C53 PO; +FLUO10CA29 PO; +FURO80TA3 PO; +ONDA-105 PO; +RIVA20TA PO
== END ==
LOC: WOUNDCARE 13:33
PROVIDERS: ATTEND Surgery
DX: B35.3 Tinea pedis (principal); I89.0 Lymphedema, not elsewhere classified; L03.115 Cellulitis of right lower limb; L03.116 Cellulitis of left lower limb; I50.9 Heart failure, unspecified; E66.9 Obesity, unspecified; I70.203 Unspecified atherosclerosis of native arteries of extremities, bilateral legs
CPT/HCPCS: 99212

== ENCOUNTER 2021-04-06 15:46 | Inpatient (IN) | payer BC ==
[~2021-04-06] VITALS: Ht 165.1 cm; Wt 96.7 kg
[~2021-04-06 15:46] MED LIST changes: -ALBU1.25 INH; -BUDE10.7 INH; -BUDE1AMP2 INH; -BUPR1FIL19 PO; -DILT120C53 PO; -FLUO10CA29 PO; -FURO80TA3 PO; -ONDA-105 PO; -RIVA20TA PO
[2021-04-06] MEDS ORDERED: ACETAMINOPHEN 500 MG TAB (TYLENOL) PO ONE (16:30)
[2021-04-06 16:35] LABS: ALBUMIN 3.4 GM/DL (3.2-4.5); POTASSIUM 5.8 MMOL/L (3.6-5.0)
[2021-04-06 16:36] LABS: CALCIUM 8.8 MG/DL (8.5-10.1)
[2021-04-06 16:37] LABS: TOTAL PROTEIN 6.9 GM/DL (6.4-8.2)
[2021-04-06 16:38] LABS: INR 1.5 (0.8-1.4); PROTHROMBIN TIME PATIENT 18.1 SEC (12.2-14.7)
[2021-04-06 16:39] LABS: BILIRUBIN,TOTAL 0.6 MG/DL (0.1-1.0)
[2021-04-06 16:41] LABS: CREATININE SERUM 2.5 MG/DL (0.60-1.30)
[2021-04-06 16:42] LABS: BASOPHILS # (AUTO) 0.1 10^3/uL (0.0-0.1); BASOPHILS % (AUTO) 0 % (0-10); EOSINOPHILS # (AUTO) 0.1 10^3/uL (0.0-0.3); EOSINOPHILS % (AUTO) 1 % (0-10); HEMATOCRIT 35 % (35-52); HEMOGLOBIN 10.3 g/dL (11.5-16.0); LYMPHOCYTES # (AUTO) 0.8 10^3/uL (1.0-4.0); LYMPHOCYTES % (AUTO) 6 % (12-44); MEAN CORPUSCULAR HEMOGLOBIN 27 pg (25-34); MEAN CORPUSCULAR HGB CONC 30 g/dL (32-36); MEAN CORPUSCULAR VOLUME 91 fL (80-99); MEAN PLATELET VOLUME 8.5 fL (9.0-12.2); MONOCYTES # (AUTO) 0.8 10^3/uL (0.0-1.0); MONOCYTES % (AUTO) 7 % (0-12); NEUTROPHILS # (AUTO) 10.3 10^3/uL (1.8-7.8); NEUTROPHILS % (AUTO) 85 % (42-75); PLATELET COUNT 323 10^3/uL (130-400); WHITE BLOOD COUNT 12.1 10^3/uL (4.3-11.0)
--- NOTE | 2021-04-06 16:55 | Diagnostic Imaging Report ---
INDICATION: Sepsis. EXAMINATION: Portable erect AP chest at 4:30 p.m. FINDINGS: The heart size is within normal limits and the heart does seem less prominent than noted on the prior exam of 03/11/2021. There are mild chronic changes involving the lung bases. They seem similar to the prior exam. There is still no evidence for failure, pneumonia or a pleural effusion. The mediastinum is not widened. The osseous structures are intact. IMPRESSION: There is no evidence for active disease. Dictated by: Dictated on workstation # [id number]
[2021-04-06 17:08] LABS: BAND NEUTROPHILS 5 %; LYMPHOCYTES % (MANUAL) 5 %; MONOCYTES % (MANUAL) 4 %; NEUTROPHILS % (MANUAL) 86 %
[2021-04-06 17:09] LABS: RBC MORPH NORMAL
[2021-04-06 17:16] LABS: BILIRUBIN,URINE NEGATIVE (NEGATIVE); CLARITY,URINE SL CLOUDY; COLOR,URINE YELLOW; GLUCOSE, URINE (UA) NEGATIVE (NEGATIVE); KETONES,URINE TRACE (NEGATIVE); LEUKOCYTE ESTERASE ,URINE NEGATIVE (NEGATIVE); NITRITE,URINE NEGATIVE (NEGATIVE); PROTEIN,URINE TRACE (NEGATIVE)
[2021-04-06 17:36] LABS: BACTERIA,URINE FEW /HPF
[2021-04-06 17:37] LABS: YEAST,URINE MODERATE /HPF
--- NOTE | 2021-04-06 18:12 | ED General ---
General Chief Complaint: Cough/Cold/Flu Symptoms Stated Complaint: WEAKNESS/SOA Nursing Triage Note: PT PRESENTS TO THE ED C/O LOOSE STOOLS, FEVER, ABD. PAIN, SOB AND HIGH HEART RATE. PT STATES SYMPTOMS BEGAN TWO DAYS AGO, STATES SHE HAD CHILLS AND A MILD MANDEL. Source of Information: Patient, EMS Exam Limitations: No Limitations History of Present Illness Date Seen by Provider: Apr 06, 2021 Time Seen by Provider: 15:46 Initial Comments This 56-year-old woman presents to the emergency room at the direction of her home health nurse who was concerned about possible A. fib RVR and/or sepsis. She was noted to have a fever and tachycardia. Her temperature on arrival is 100.4. She has been dealing with chronic lower extremity edema with weeping, erythema, and pain for several months. She has been seeing Dr. Bejarano for wound care. She is not presently on antibiotics. She has a myriad of other health problems including history of DVT, paroxysmal A. fib, renal failure, and paralysis of the right arm that occurred after being intubated in September 2019. She is tachycardic with marginal blood pressures on arrival. She has had some nausea but denies any vomiting, watery stools, or cough. She has had some mild shortness of air, chills, and headache. She has had positive Covid antibodies in the past but no definite history of active disease. It is speculated that perhaps her illness in September 2019 was actually COVID-19. Allergies and Home Medications Allergies Coded Allergies: No Known Drug Allergies (Unverified , 04/29/19) Home Medications Aspirin 81 Mg Tab.chew, 81 MG PO DAILY, (Reported) Bumetanide 1 Mg Tablet, 1 MG PO 0800,1500, (Reported) Cephalexin 500 Mg Tablet, 500 MG PO TID Prescribed by: ACE DIAMOND on 03/12/21 0957 Fluoxetine HCl 10 Mg Tablet, 10 MG PO DAILY, (Reported) LAST FILLED 12-31-2020 #30/30 DAY SUPPLY Gabapentin 600 Mg Tablet, 600 MG PO TID, (Reported) Potassium Chloride 10 Meq Tablet.er, 10 MEQ PO DAILY, (Reported) Rivaroxaban 20 Mg Tablet, 20 MG PO DAILY@1700 Prescribed by: ACE DIAMOND on 03/12/21 0956 Triamcinolone Acet 15 Gm Cr, 1 APPLIC TOP BID PRN for RASH, (Reported) Patient Home Medication List Home Medication List Reviewed: Yes Review of Systems Review of Systems Constitutional: see HPI EENTM: no symptoms reported Respiratory: see HPI Cardiovascular: see HPI Gastrointestinal: see HPI Genitourinary: no symptoms reported : No Musculoskeletal: no symptoms reported Skin: see HPI Psychiatric/Neurological: See HPI Hematologic/Lymphatic: No Symptoms Reported Immunological/Allergic: no symptoms reported Past Lvsfdkd-Iqxqeo-Cyivxd Hx Patient Social History Tobacco Use?: Yes Tobacco type used: Cigarettes Smoking Status: Light Tobacco Smoker Substance use?: No Immunizations Up To Date Tetanus Booster (TDap): Unknown Influenza Vaccine Up-to-Date: No; Not Current Seasonal Allergies Seasonal Allergies: Yes Past Medical History Surgeries: Yes (CARDIAC CATH 2017) Hysterectomy Respiratory: Yes (O2 AT 2L/NC CONTINUOUS;INTUBATED WITH ARDS/PNEUMONIAL 09/2019) Pneumonia, Chronic Bronchitis, COPD Cardiac: Yes (DVT ARM AND LEG; CARDIAC CATH 2018-NORMAL) Atrial Fibrillation, Deep Vein Thrombosis, High Cholesterol, Hypertension Neurological: Yes Paralysis (Right upper extremity) 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 Disorders: Yes Female 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 Disorders: 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 Sexually Transmitted Disease: No HIV/AIDS: No Genitourinary: Yes (NO DIALYSIS) Renal Failure, UTI-Chronic Gastrointestinal: Yes Gastroesophageal Reflux Musculoskeletal: Yes (CHRONIC GENERALIZED PAIN ) Endocrine: Yes (HAS BEEN ON INSULIN WHEN SHE HAS HAD STEROIDS-STATES SHE IS NOT DIABETIC) HEENT: No Cancer: No Psychosocial: Yes (OPIATE ABUSE, ALCOHOL ABUSE) Bipolar, Depression Integumentary: Yes (CHRONIC LEG WOUNDS/CELLULITIS) Blood Disorders: No Adverse Reaction/Blood Tranf: No Family Medical History Cerebrovascular accident (CVA) 19 FATHER, Onset:60 years & older FH: testicular cancer G8 BROTHER, Onset:30's - 40 Hypertension 19 FATHER, Onset:Unknown 19 MOTHER, Onset:Unknown G8 BROTHER, Onset:Unknown G8 BROTHER, Onset:Unknown Myocardial infarction 19 FATHER, Onset:40's - 50 Heart Disease, Hypertension SOCIAL HISTORY: -ETOH --ABUSE/REGULAR USE -DRUGS--LONG HISTORY OF OPIATE ABUSE -SMOKES 2 PPD ADDITIONAL PMH: -12/14/2020-TRANSFERRED TO [facility] FOR SEPTIC SHOCK WITH ACUTE RENAL FAILURE DUE TO CELLULITIS OF LEGS. -02/03/21-TRANSFERRED TO [facility] FOR SEPSIS WITH ACUTE RENAL FAILURE, ALSO DUE TO CELLULITIS OF LEGS. -ADMITTED AND INTUBATED X 1 MONTH IN SEPTEMBER 2019 FOR BILATERAL PNEUMONIA AND ARDS. HISTORY OF OPIATE ABUSE/ADDICTION--HAS BEEN ON SUBOXONE, BUT STATES SHE CANNOT AFFORD IT AND IS NO LONGER TAKING IT OF 03/11/21 Physical Exam-Suspected Sepsis Physical Exam Vital Signs Vital Signs - First Documented 04/06/21 15:46 Temp 38.0 Pulse 115 Resp 22 B/P (MAP) 86/45 (59) Pulse Ox 94 O2 Delivery Nasal Cannula O2 Flow Rate 2.00 Capillary Refill : Less Than 3 Seconds Blood Pressure Mean: 59 Height, Weight, BMI Height: 5'5.00" Weight: 218lbs. 0.0oz. 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57 Laboratory Tests 04/06/21 16:04: Creatinine 2.50H, INR Comment 1.5H, Platelet Count 323, Total Bilirubin 0.6 Results/Orders Lab Results Laboratory Tests Test 04/06/21 16:04 04/06/21 17:01 Range/Units White Blood Count 12.1 H 4.3-11.0 10^3/uL Red Blood Count 3.82 3.80-5.11 10^6/uL Hemoglobin 10.3 L 11.5-16.0 g/dL Hematocrit 35 35-52 % Mean Corpuscular Volume 91 80-99 fL Mean Corpuscular Hemoglobin 27 25-34 pg Mean Corpuscular Hemoglobin Concent 30 L 32-36 g/dL Red Cell Distribution Width 19.8 H 10.0-14.5 % Platelet Count 323 130-400 10^3/uL Mean Platelet Volume 8.5 L 9.0-12.2 fL Immature Granulocyte % (Auto) 1 % Neutrophils (%) (Auto) 85 H 42-75 % Lymphocytes (%) (Auto) 6 L 12-44 % Monocytes (%) (Auto) 7 0-12 % Eosinophils (%) (Auto) 1 0-10 % Basophils (%) (Auto) 0 0-10 % Neutrophils # (Auto) 10.3 H 1.8-7.8 10^3/uL Lymphocytes # (Auto) 0.8 L 1.0-4.0 10^3/uL Monocytes # (Auto) 0.8 0.0-1.0 10^3/uL Eosinophils # (Auto) 0.1 0.0-0.3 10^3/uL Basophils # (Auto) 0.1 0.0-0.1 10^3/uL Immature Granulocyte # (Auto) 0.1 0.0-0.1 10^3/uL Neutrophils % (Manual) 86 % Lymphocytes % (Manual) 5 % Monocytes % (Manual) 4 % Band Neutrophils 5 % Blood Morphology Comment NORMAL Prothrombin Time 18.1 H 12.2-14.7 SEC INR Comment 1.5 H 0.8-1.4 Activated Partial Thromboplast Time 39 H 24-35 SEC Sodium Level 128 L 135-145 MMOL/L Potassium Level 5.8 H 3.6-5.0 MMOL/L Chloride Level 95 L 98-107 MMOL/L Carbon Dioxide Level 20 L 21-32 MMOL/L Anion Gap 13 5-14 MMOL/L Blood Urea Nitrogen 24 H 7-18 MG/DL Creatinine 2.50 H 0.60-1.30 MG/DL Estimat Glomerular Filtration Rate 20 BUN/Creatinine Ratio 10 Glucose Level 118 H 70-105 MG/DL Lactic Acid Level 1.57 0.50-2.00 MMOL/L Calcium Level 8.8 8.5-10.1 MG/DL Corrected Calcium 9.3 8.5-10.1 MG/DL Total Bilirubin 0.6 0.1-1.0 MG/DL Aspartate Amino Transf (AST/SGOT) 18 5-34 U/L Alanine Aminotransferase (ALT/SGPT) 10 0-55 U/L Alkaline Phosphatase 196 H 40-136 U/L C-Reactive Protein High Sensitivity 4.96 H 0.00-0.50 MG/DL B-Type Natriuretic Peptide 13.8 <100.0 PG/ML Total Protein 6.9 6.4-8.2 GM/DL Albumin 3.4 3.2-4.5 GM/DL Procalcitonin 1.32 H <0.10 NG/ML Influenza Type A (RT-PCR) Not Detected Not Detecte Influenza Type B (RT-PCR) Not Detected Not Detecte SARS-CoV-2 RNA (RT-PCR) Not Detected Not Detecte Urine Color YELLOW Urine Clarity SL CLOUDY Urine pH 5.0 5-9 Urine Specific [place] >=1.030 1.016-1.022 Urine Protein TRACE H NEGATIVE Urine Glucose (UA) NEGATIVE NEGATIVE Urine Ketones TRACE H NEGATIVE Urine Nitrite NEGATIVE NEGATIVE Urine Bilirubin NEGATIVE NEGATIVE Urine Urobilinogen 0.2 < = 1.0 MG/DL Urine Leukocyte Esterase NEGATIVE NEGATIVE Urine RBC (Auto) TRACE-I NEGATIVE Urine RBC NONE /HPF Urine WBC 2-5 /HPF Urine Squamous Epithelial Cells 5-10 /HPF Urine Crystals NONE /LPF Urine Bacteria FEW H /HPF Urine Casts NONE /LPF Urine Mucus NEGATIVE /LPF Urine Yeast MODERATE H /HPF Urine Culture Indicated CULTURE PENDING My Orders Orders - HOUSTON ALMAZAN MD Cbc With Automated Diff (04/06/21 15:50) Comprehensive Metabolic Panel (04/06/21 15:50) Blood Culture (04/06/21 15:50) Sputum Culture (04/06/21 15:50) Urinalysis (04/06/21 15:50) Urine Culture (04/06/21 15:50) Protime With Inr (04/06/21 15:50) Partial Thromboplastin Time (04/06/21 15:50) Chest 1 View, Ap/Pa Only (04/06/21 15:50) Ed Iv/Invasive Line Start (04/06/21 15:50) Ed Iv/Invasive Line Start (04/06/21 15:50) Vital Signs Adult Sepsis Patie Q15M (04/06/21 15:50) O2 (04/06/21 15:50) Remove Rings In Anticipation O (04/06/21 15:50) Lactic Acid Analyzer (04/06/21 15:50) BNP (04/06/21 15:50) Hs C Reactive Protein (04/06/21 15:50) Procalcitonin (Pct) (04/06/21 15:50) Covid 19 Inhouse Test (04/06/21 15:50) Influenza A And B By Pcr (04/06/21 15:50) Acetaminophen Tablet (Tylenol Tablet) (04/06/21 16:30) Manual Differential (04/06/21 16:04) Ns Iv 1000 Ml (Sodium Chloride 0.9%) (04/06/21 18:15) Ns Iv 1000 Ml (Sodium Chloride 0.9%) (04/06/21 18:30) Piperacillin/Tazobactam (Bulk) (Zosyn In (04/06/21 18:30) Vancomycin Injection (Vancomycin Injecti (04/06/21 18:30) Ns (Ivpb) (Sodium Chloride 0.9% Ivpb Bag (04/06/21 18:33) Medications Given in ED Current Medications Medications Dose Ordered Sig/Chery Route Start Time Stop Time Status Last Admin Dose Admin Acetaminophen 1,000 mg ONCE ONCE PO 04/06/21 16:30 04/06/21 16:31 DC 04/06/21 17:00 1,000 MG Vital Signs/I&O 04/06/21 04/06/21 04/06/21 04/06/21 15:46 15:59 15:59 17:00 Temp 38.0 38.0 Pulse 115 Resp 22 B/P (MAP) 86/45 (59) Pulse Ox 94 O2 Delivery Nasal Cannula Nasal Cannula Nasal Cannula O2 Flow Rate 2.00 2.00 2.00 Capillary Refill : Less Than 3 Seconds Blood Pressure Mean: 59 Progress Note : Progress Note Patient seen and examined on arrival. Covid screen was negative. Sepsis work- up was pursued. Patient had reported a prior history of heart failure so IV hydration was pursued cautiously. We will administer a 2 L normal saline bolus. I am not going to give the entire 30 mL/kg bolus (2700 mL) due to her signif icant lower extremity edema and reports of prior heart failure. Blood cultures and lactic acid were obtained. Patient was then treated with Zosyn and vancomycin. I discussed CODE STATUS with the patient and she would like to remain full code. ECG Initial ECG Impression Date: Apr 06, 2021 Initial ECG Impression Time: 15:52 Initial ECG Rate: 114 Initial ECG Rhythm: S.Tach Comment Sinus tachycardia with no ST elevation or depression. No abnormal intervals or axis deviation. Diagnostic Imaging Diagonstic Imaging: Xray Plain Films/CT/US/NM/MRI: chest Comments NAME: ZEKE MEDELLIN [facility] REC#: [id number] PT STATUS: REG ER : 1965 PHYSICIAN: HOUSTON ALMAZAN MD ADMIT DATE: 04/06/21/ER Draft Date of Exam:04/06/21 CHEST 1 VIEW, AP/PA ONLY INDICATION: Sepsis. EXAMINATION: Portable erect AP chest at 4:30 p.m. FINDINGS: The heart size is within normal limits and the heart does seem less prominent than noted on the prior exam of 03/11/2021. There are mild chronic changes involving the lung bases. They seem similar to the prior exam. There is still no evidence for failure, pneumonia or a pleural effusion. The mediastinum is not widened. The osseous structures are intact. IMPRESSION: There is no evidence for active disease. Dictated on workstation # [id number] Dict: 04/06/21 1651 Trans: 04/06/[address] [facility] [id number] Interpreted by: EMY BUI MD Departure Communication (Admissions) Time/Spoke to Admitting Phy: 18:15 Dr. Chopra Impression Primary Impression: Sepsis Qualified Codes: A41.9 - Sepsis, unspecified organism; R65.20 - Severe sepsis without septic shock; N17.9 - Acute kidney failure, unspecified Additional Impressions: Acute kidney injury Lower extremity cellulitis Qualified Codes: L03.119 - Cellulitis of unspecified part of limb Hyperkalemia Disposition: ADMITTED INPATIENT Condition: Improved Admissions Decision to Admit Reason: Admit from ER (General) Decision to Admit/Date: Apr 06, 2021 Time/Decision to Admit Time: 15:50 Departure-Patient Inst. Referrals: BROOKE JOYNER DO (PCP/Family) Primary Care Physician HOUSTON ALMAZAN MD Apr 06, 2021 18:12
[2021-04-06] MEDS ORDERED: NS IV 1000 ML 1,000 ML IV SCH ×2 (18:15→18:30)
[2021-04-06] MEDS ORDERED: PIPERACILLIN/TAZOBACTAM (BULK) 4.5 GM in NS (IVPB) 100 ML IV ONE (18:30)
[2021-04-06] MEDS ORDERED: VANCOMYCIN INJECTION 1,000 MG in NS (IVPB) 250 ML IV ONE (18:30)
[2021-04-06] MEDS ORDERED: NS (IVPB) 100 ML ONE (18:33)
--- NOTE | 2021-04-06 19:58 | Tele-ICU Consult ---
History of Present Illness History of Present Illness Date Seen by Provider: Apr 06, 2021 Time Seen by Provider: 19:53 Date of Admission History of Present Illness This is a 56-year-old woman presents to the emergency room at the direction of her home health nurse who was concerned about possible A. fib RVR and/or sepsis. She was noted to have a fever and tachycardia. Her temperature on arrival is 100.4. She has been dealing with chronic lower extremity edema with weeping, erythema, and pain for several months. She has been seeing Dr. Bejarano for wound care. She is not presently on antibiotics. She has a myriad of other health problems including history of DVT, paroxysmal A. fib, renal failure, and paralysis of the right arm that occurred after being intubated in September 2019. She is tachycardic with marginal blood pressures on arrival. She has had some nausea but denies any vomiting, watery stools, or cough. She has had some mild shortness of air, chills, and headache. She has had positive Covid antibodies in the past but no definite history of active disease. It is speculated that perhaps her illness in September 2019 was actually COVID-19. History obtained fro ED chart Allergies and Home Medications Allergies Coded Allergies: No Known Drug Allergies (Unverified , 04/29/19) Home Medications Aspirin 81 Mg Tab.chew, 81 MG PO DAILY, (Reported) Bumetanide 1 Mg Tablet, 1 MG PO 0800,1500, (Reported) Cephalexin 500 Mg Tablet, 500 MG PO TID Prescribed by: ACE DIAMOND on 03/12/21 0957 Fluoxetine HCl 10 Mg Tablet, 10 MG PO DAILY, (Reported) LAST FILLED 12-31-2020 #30/30 DAY SUPPLY Gabapentin 600 Mg Tablet, 600 MG PO TID, (Reported) Potassium Chloride 10 Meq Tablet.er, 10 MEQ PO DAILY, (Reported) Rivaroxaban 20 Mg Tablet, 20 MG PO DAILY@1700 Prescribed by: ACE DIAMOND on 03/12/21 0956 Triamcinolone Acet 15 Gm Cr, 1 APPLIC TOP BID PRN for RASH, (Reported) Past Medical/Social/Family Hx Patient Social History Tobacco Use?: Yes Tobacco type used: Cigarettes Smoking Status: Light Tobacco Smoker Substance use?: No Immunizations Up To Date Influenza Vaccine Up-to-Date: No; Not Current Tetanus Booster (TDap): Unknown TB Skin Test: None Current Status Advance Directives: Yes Primary Language: Haitian Past Medical History wound/ edema Family Medical History Family Hx: SOCIAL HISTORY: -ETOH --ABUSE/REGULAR USE -DRUGS--LONG HISTORY OF OPIATE ABUSE -SMOKES 2 PPD ADDITIONAL PMH: -12/14/2020-TRANSFERRED TO [facility] FOR SEPTIC SHOCK WITH ACUTE RENAL FAILURE DUE TO CELLULITIS OF LEGS. -02/03/21-TRANSFERRED TO [place] FOR SEPSIS WITH ACUTE RENAL FAILURE, ALSO DUE TO CELLULITIS OF LEGS. -ADMITTED AND INTUBATED X 1 MONTH IN SEPTEMBER 2019 FOR BILATERAL PNEUMONIA AND ARDS. HISTORY OF OPIATE ABUSE/ADDICTION--HAS BEEN ON SUBOXONE, BUT STATES SHE CANNOT AFFORD IT AND IS NO LONGER TAKING IT OF 03/11/21 Review of Systems Constitutional: see HPI Sepsis Event Evaluation Height, Weight, BMI Height: 5'5.00" Weight: 218lbs. 0.0oz. 98.428219sc; 33.00 BMI Method:Stated Exam Exam Patient acknowledged, consented, and participated in this virtual visit which was conducted using real time audio/video Vital Signs Date Time Temp Pulse Resp B/P (MAP) Pulse Ox O2 Delivery O2 Flow Rate FiO2 04/06/21 17:00 38.0 04/06/21 16:15 36.9 105 14 110/96 97 Nasal Cannula 2.00 04/06/21 15:59 Nasal Cannula 2.00 04/06/21 15:59 Nasal Cannula 2.00 04/06/21 15:46 38.0 115 22 86/45 (59) 94 Nasal Cannula 2.00 Height & Weight Height: 5'5.00" Weight: 218lbs. 0.0oz. 98.629440gc; 33.00 BMI Method:Stated General Appearance: No Apparent Distress, WD/WN HEENT: PERRL/EOMI, Normal ENT Inspection Neck: Normal Inspection Respiratory: Lungs Clear, Normal Breath Sounds, No Accessory Muscle Use, No Respiratory Distress, Decreased Breath Sounds (In the left base) Cardiovascular: No Murmur, Tachycardia, Other (Bilateral lower extremity edema) Capillary Refill: Less Than 3 Seconds Extremity: Other (Swelling, erythema, tenderness, and weeping of the lower extremities bilaterally) Neurologic/Psychiatric: Alert, Oriented x3, Normal Mood/Affect, radio director II-XII Norm as Tested, Other (Motor weakness of the right upper extremity) Results Lab Laboratory Tests 04/06/21 16:04 Assessment/Plan Assessment/Plan Sepsis due to possible bacteremia/ wound infection -sepsis protocol -abx empiric -panculture -FAST HUG S Tach -ekg -iv fluids LR 1l given/ 1l 0.9 NS ATUL RUIZ MD Apr 06, 2021 19:57
[2021-04-06] MEDS ORDERED: ONDANSETRON 4 MG/2 ML (SDV) Z0FRAN IVP PRN (20:30)
[2021-04-06] MEDS ORDERED: VANCOMYCIN 750 MG/NS 250 ML IVPB IV SCH ×2 (20:30)
[2021-04-06] MEDS: LACTATED RINGERS 1,000 ML IV SCH (21:36)
[2021-04-06] MEDS ORDERED: BUPR1FIL3 SL (21:39)
[2021-04-06] MEDS ORDERED: METO100T12 PO (21:42)
[2021-04-06] MEDS ORDERED: LISI10TA25 PO (21:42)
[2021-04-06] MEDS ORDERED: ACETAMINOPHEN 325 MG TABLET PO ONE (23:00)
[2021-04-07] MEDS: LACTATED RINGERS 1,000 ML IV SCH ×3 (02:04→08:03)
[2021-04-07] MEDS: PIPERACILLIN/TAZO 4.5 GM/NS 100 ML IV SCH ×6 (02:04→17:01)
[2021-04-07 04:16] LABS: CALCIUM 7.7 MG/DL (8.5-10.1)
[2021-04-07 04:20] LABS: PHOSPHORUS 3.1 MG/DL (2.3-4.7)
[2021-04-07 04:21] LABS: CREATININE SERUM 1.87 MG/DL (0.60-1.30)
[2021-04-07 04:23] LABS: BASOPHILS % (AUTO) 0 % (0-10); EOSINOPHILS # (AUTO) 0.1 10^3/uL (0.0-0.3); EOSINOPHILS % (AUTO) 1 % (0-10); HEMATOCRIT 25 % (35-52); HEMOGLOBIN 7.6 g/dL (11.5-16.0); LYMPHOCYTES # (AUTO) 0.6 10^3/uL (1.0-4.0); LYMPHOCYTES % (AUTO) 8 % (12-44); MAGNESIUM 1.6 MG/DL (1.6-2.4); MEAN CORPUSCULAR HEMOGLOBIN 28 pg (25-34); MEAN CORPUSCULAR HGB CONC 30 g/dL (32-36); MEAN CORPUSCULAR VOLUME 91 fL (80-99); MEAN PLATELET VOLUME 8.3 fL (9.0-12.2); MONOCYTES # (AUTO) 0.5 10^3/uL (0.0-1.0); MONOCYTES % (AUTO) 7 % (0-12); NEUTROPHILS % (AUTO) 82 % (42-75); PLATELET COUNT 244 10^3/uL (130-400); WHITE BLOOD COUNT 7.3 10^3/uL (4.3-11.0)
[2021-04-07] MEDS: POTASSIUM CL 10MEQ/50ML IVPB 50 ML IV SCH (05:44)
[2021-04-07] MEDS: KCL 20 MEQ TAB (K-DUR) PO SCH (05:45)
[2021-04-07] MEDS: MAGNESIUM 1 GM/100 ML IVPB 100 ML IV SCH (05:45)
[2021-04-07] MEDS ORDERED: diphenhydrAMINE 25 MG TAB (BENADRYL) PO PRN (08:45)
--- NOTE | 2021-04-07 09:02 | Tele-ICU Progress Note ---
Progress Note video rounds completed 56 y/o female admitted with cellulitis of LE's and sepsis This am she is doing much better. BP was soft yesterday, today improved Sitting in bed tolerating breakfast. P: 112 NSR BP: 137/64 O2 sat: 97% Labs: WBC 7.3 down from 12 Hgb: 7.6 down from 10.3 likley hydration related Plts: 244 Na 135 K; 5 Cl: 103 CO2 21 BUN 23 Creat: 1.87 down from 2.5 Meds: on zosyn/van Xarelto for hx of a fib IMP: sepsis due to LE cellulitis Improving Focused Exam Lactate Level 04/06/21 16:04: Lactic Acid Level 1.57 Height, Weight, BMI Height: 5'5.00" Weight: 218lbs. 0.0oz. 98.058294zv; 32.39 BMI Method:Stated YAYO OLIVARES MD Apr 07, 2021 09:02
--- NOTE | 2021-04-07 09:07 | Diagnostic Imaging Report ---
EXAMINATION: Portable erect AP chest at 8:52 AM INDICATION: Sepsis The heart is stable in size when compared to the prior exam of 04/06/2021. The chronic pulmonary changes involving the lung bases seen previously are again evident. However, in the interval since the prior study bands of atelectasis/infiltrate have developed in the right lung base and near the apex of the heart. The upper lungs are generally clear. The mediastinum is not widened. The osseous structures are intact. IMPRESSION: The appearance of the chest has worsened somewhat since the prior study as mild bibasilar atelectasis/infiltrate has developed. A follow-up study would be recommended for continued evaluation. Dictated by: Dictated on workstation # [id number]
--- NOTE | 2021-04-07 09:13 | History & Physical-Hospitalist ---
History of Present Illness HPI/Chief Complaint Pt is a 56yoCF known to me from previous admissions who presented to the hospital due to fever. She was seen by her home health nurse who noticed her heart rate was up and she was febrile. She has chronic lower extremity edema and wounds and follows with [facility]. She was found to be septic criteria from cellulitis with soft BPs so was admitted to the ICU. This morning she reports feeling much better and her only complaint is itching and pain in her legs. She denies SOB or cough. She has not had her COVID vaccine. She actually believes she already had COVID as she tested positive for antibodies in [place] after a se jason illness in 09/2019. Source: patient Date Seen 04/07/21 Time Seen by a Provider: 09:13 Attending Physician Brooklyn Chopra MD PCP García Hicks DO Referring Physician Date of Admission Apr 06, 2021 at 18:37 Home Medications & Allergies Home Medications Reviewed patient Home Medication Reconciliation performed by pharmacy medication reconciliations machine shop repair technician and/or nursing. Patients Allergies have been reviewed. Allergies Allergies Coded Allergies No Known Drug Allergies (Unverified04/29/19) Past Ppwwyzq-Kkfmzu-Tmbvat Hx Patient Social History Tobacco Use?: Yes Tobacco type used: Cigarettes Smoking Status: Current Someday Smoker Smokeless Tobacco Frequency: Never a User Use of E-Cig and/or Vaping dev: No Substance use?: No Alcohol Use?: Yes Alcohol type: Hard Liquor Alcohol Frequency: Rarely Pt feels they are or have been: No Immunizations Up To Date Date of Influenza Vaccine: Jul 11, 2020 Tetanus Booster (TDap): Unknown Seasonal Allergies Seasonal Allergies: Yes Current Status status: No Advance Directives: No Communicates: Verbally Primary Language: Dutch Implanted or Applied Medical D: None Past Medical History Surgeries: Hysterectomy Pneumonia, Chronic Bronchitis, COPD Atrial Fibrillation, Deep Vein Thrombosis, High Cholesterol, Hypertension Paralysis (Right upper extremity) 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 Sexually Transmitted Disease: No HIV/AIDS: No Renal Failure, UTI-Chronic Gastroesophageal Reflux Bipolar, Depression Blood Disorders: No Adverse Reaction/Blood Tranf: No wound/ edema Family Medical History Cerebrovascular accident (CVA) 19 FATHER, Onset:60 years & older FH: testicular cancer G8 BROTHER, Onset:30's - 40 Hypertension 19 FATHER, Onset:Unknown 19 MOTHER, Onset:Unknown G8 BROTHER, Onset:Unknown G8 BROTHER, Onset:Unknown Myocardial infarction 19 FATHER, Onset:40's - 50 Heart Disease, Hypertension SOCIAL HISTORY: -ETOH --ABUSE/REGULAR USE -DRUGS--LONG HISTORY OF OPIATE ABUSE -SMOKES 2 PPD ADDITIONAL PMH: -12/14/2020-TRANSFERRED TO [facility] FOR SEPTIC SHOCK WITH ACUTE RENAL FAILURE DUE TO CELLULITIS OF LEGS. -02/03/21-TRANSFERRED TO [place] FOR SEPSIS WITH ACUTE RENAL FAILURE, ALSO DUE TO CELLULITIS OF LEGS. -ADMITTED AND INTUBATED X 1 MONTH IN SEPTEMBER 2019 FOR BILATERAL PNEUMONIA AND ARDS. HISTORY OF OPIATE ABUSE/ADDICTION--HAS BEEN ON SUBOXONE, BUT STATES SHE CANNOT AFFORD IT AND IS NO LONGER TAKING IT OF 03/11/21 Review of Systems Constitutional: fever, malaise EENTM: no symptoms reported Respiratory: No cough, No phlegm, No short of breath Cardiovascular: No chest pain; edema; No palpitations Gastrointestinal: No abdominal pain, No nausea, No vomiting Genitourinary: no symptoms reported Musculoskeletal: see HPI Skin: see HPI Psychiatric/Neurological: No Symptoms Reported Physical Exam Physical Exam Vital Signs Vital Signs - First Documented 04/06/21 15:46 Temp 38.0 Pulse 115 Resp 22 B/P (MAP) 86/45 (59) Pulse Ox 94 O2 Delivery Nasal Cannula O2 Flow Rate 2.00 Capillary Refill : Less Than 3 Seconds Height, Weight, BMI Height: 5'5.00" Weight: 218lbs. 0.0oz. 98.106458pa; 32.39 BMI Method:Stated General Appearance: No Apparent Distress, Chronically ill, Obese HEENT: PERRL/EOMI, Moist Mucous Membranes; No Scleral Icterus (L), No Scleral Icterus (R) Neck: Normal Inspection, Supple Respiratory: Lungs Clear, No Accessory Muscle Use, No Respiratory Distress Cardiovascular: Regular Rate, Rhythm, No Murmur Gastrointestinal: Normal Bowel Sounds, Non Tender, Soft Extremity: Other (exquisitely erythematous legs with weeping, excoriations noted as well) Neurologic/Psychiatric: Alert, Oriented x3, Normal Mood/Affect; No Aphasia; Mo tor Weakness (RUE) Results Results/Procedures Labs Laboratory Tests 04/06/21 16:04 04/07/21 03:26 Patient resulted labs reviewed. Imaging: Reviewed Imaging Report [facility] [place], [place] NAME: ZEKE MEDELLIN MED REC#: [id number] PT STATUS: ADM IN : 1965 PHYSICIAN: HOUSTON ALMAZAN MD ADMIT DATE: 04/06/21/ICU Signed Date of Exam:04/06/21 CHEST 1 VIEW, AP/PA ONLY INDICATION: Sepsis. EXAMINATION: Portable erect AP chest at 4:30 p.m. FINDINGS: The heart size is within normal limits and the heart does seem less prominent than noted on the prior exam of 03/11/2021. There are mild chronic changes involving the lung bases. They seem similar to the prior exam. There is still no evidence for failure, pneumonia or a pleural effusion. The mediastinum is not widened. The osseous structures are intact. IMPRESSION: There is no evidence for active disease. Dictated by: Dictated on workstation # [id number] Dict: 04/06/211650 Trans: 04/06/212117 [facility] [id number] Interpreted by: EMY BUI MD Electronically signed by: EMY BUI MD 04/06/212117 Assessment/Plan Admission Diagnosis Severe Sepsis Admission Status: Inpatient Order (span 2 midnights) Reason for Inpatient Admission: see below Assessment and Plan Severe sepsis Febrile, leukocytosis, and tachycardia on arrival UA and CXr clear Consistent with cellulitis of lower extremities, no mucosal involvement Continue on Vanc and Zosyn Wound Care consult h/o of DVT AFib Continue Xarelto Regular rate Monitor on telemetry Continue home meds when med rec done I did resume home metorpolol and BP improved based off fill history HTN COPD Obesity Continue home meds when able based off med refill history I was able to start gabapentin and metoprolol, await confirmed med rec DVT ppx: BROOKLYN Swartz MD Apr 07, 2021 09:13
[2021-04-07] MEDS: LORATADINE (CLARITIN) 10 MG TAB PO SCH (09:53)
[2021-04-07] MEDS: HYDROcodone/APAP 5 MG/325 MG (LORTAB) TAB PO PRN (09:53)
[2021-04-07] MEDS: NS IV 1000 ML 1,000 ML IV SCH (09:54)
[2021-04-07 11:03] VITALS: BP 148/65
[2021-04-07] MEDS ORDERED: meTOproloL SUCCINATE 50 MG (TOPROL XL) TAB PO NR (12:30)
[2021-04-07 15:56] VITALS: BP 125/63
[2021-04-07] MEDS ORDERED: RIVAROXABAN 15 MG TABLET (XARELTO) PO SCH (17:00)
[2021-04-07] MEDS: VANCOMYCIN 750 MG/NS 250 ML IVPB IV SCH ×2 (18:10)
[2021-04-07 19:10] VITALS: BP 125/74
[2021-04-07] MEDS: GABAPENTIN 300 MG (NEURONTIN) CAP PO SCH (21:31)
[2021-04-07] MEDS: RT-BUDESONIDE NEBS 0.5 MG/2ML (PULMICORT) AMP INH SCH (21:34)
[2021-04-07 23:56] VITALS: BP 131/71
[2021-04-08] MEDS: PIPERACILLIN/TAZO 4.5 GM/NS 100 ML IV SCH ×6 (01:28→17:07)
[2021-04-08 03:51] VITALS: BP 143/78
[2021-04-08] MEDS: NS IV 1000 ML 1,000 ML IV SCH ×3 (05:46→13:34)
[2021-04-08 06:29] LABS: BASOPHILS % (AUTO) 0 % (0-10); EOSINOPHILS # (AUTO) 0.3 10^3/uL (0.0-0.3); EOSINOPHILS % (AUTO) 5 % (0-10); HEMATOCRIT 34 % (35-52); HEMOGLOBIN 9.6 g/dL (11.5-16.0); LYMPHOCYTES # (AUTO) 0.6 10^3/uL (1.0-4.0); LYMPHOCYTES % (AUTO) 12 % (12-44); MEAN CORPUSCULAR HEMOGLOBIN 27 pg (25-34); MEAN CORPUSCULAR HGB CONC 29 g/dL (32-36); MEAN CORPUSCULAR VOLUME 94 fL (80-99); MEAN PLATELET VOLUME 8.3 fL (9.0-12.2); MONOCYTES # (AUTO) 0.3 10^3/uL (0.0-1.0); MONOCYTES % (AUTO) 6 % (0-12); NEUTROPHILS # (AUTO) 3.7 10^3/uL (1.8-7.8); NEUTROPHILS % (AUTO) 74 % (42-75); PLATELET COUNT 283 10^3/uL (130-400)
[2021-04-08 06:52] LABS: CREATININE SERUM 1.25 MG/DL (0.60-1.30); MAGNESIUM 1.8 MG/DL (1.6-2.4); PHOSPHORUS 2.6 MG/DL (2.3-4.7); POTASSIUM 4.4 MMOL/L (3.6-5.0)
[2021-04-08] MEDS: POTASSIUM CL 10MEQ/50ML IVPB 50 ML IV SCH (07:01)
[2021-04-08] MEDS: KCL 20 MEQ TAB (K-DUR) PO SCH (07:01)
[2021-04-08] MEDS: MAGNESIUM 1 GM/100 ML IVPB 100 ML IV SCH (07:02)
[2021-04-08 08:00] VITALS: BP 126/71
[2021-04-08] MEDS: meTOproloL SUCCINATE 50 MG (TOPROL XL) TAB PO SCH (09:03)
[2021-04-08] MEDS: LORATADINE (CLARITIN) 10 MG TAB PO SCH (09:04)
[2021-04-08] MEDS: GABAPENTIN 300 MG (NEURONTIN) CAP PO SCH ×2 (09:04→20:12)
[2021-04-08] MEDS: RT-BUDESONIDE NEBS 0.5 MG/2ML (PULMICORT) AMP INH SCH ×3 (09:10→19:58)
--- NOTE | 2021-04-08 11:11 | Progress Note - Hospitalist ---
Subjective HPI/CC On Admission Date Seen by Provider: Apr 08, 2021 Time Seen by Provider: 09:25 Pt is a 56yoCF known to me from previous admissions who presented to the hospital due to fever. She was seen by her home health nurse who noticed her heart rate was up and she was febrile. She has chronic lower extremity edema and wounds and follows with Car[facility]. She was found to be septic criteria from cellulitis with soft BPs so was admitted to the ICU. This morning she reports feeling much better and her only complaint is itching and pain in her legs. She denies SOB or cough. She has not had her COVID vaccine. She actually believes she already had COVID as she tested positive for antibodies in [place] after a severe illness in 09/2019. Subjective/Events-last exam She is feeling better today. Her legs are painful, red, and warm. She says they were bleeding yesterday. She has had some shortness of breath and cough. She denies any fevers. Focused Exam Lactate Level 04/06/21 16:04: Lactic Acid Level 1.57 Objective Exam Vital Signs Vital Signs Date Time Temp Pulse Resp B/P (MAP) Pulse Ox O2 Delivery O2 Flow Rate FiO2 04/08/21 10:35 94 Nasal Cannula 2.00 04/08/21 08:00 36.8 99 18 126/71 (89) Capillary Refill : Less Than 3 Seconds General Appearance: No Apparent Distress, Obese Respiratory: Lungs Clear, Normal Breath Sounds, No Respiratory Distress Cardiovascular: Regular Rate, Rhythm, No Edema, No Murmur Gastrointestinal: Normal Bowel Sounds, Non Tender, Soft Extremity: Inflammation, Swelling Neurologic/Psychiatric: Alert, Oriented x3, No Motor/Sensory Deficits, Normal Mood/Affect Skin: Erythema Results/Procedures Lab Laboratory Tests 04/08/21 06:09 Patient resulted labs reviewed. Imaging: Reviewed Imaging Report Assessment/Plan Assessment and Plan Assess & Plan/Chief Complaint Severe sepsis due to pneumonia and cellulitis of bilateral lower extremities Acute kidney injury Chest xray with bibasilar infiltrate Procalcitonin elevated Continue on Vanc and Zosyn Wound care consult h/o of DVT AFib Continue Xarelto Monitor on telemetry Continue home meds HTN COPD Continue home meds Obesity Clinically significant, no acute management needs DVT ppx: Already receiving therapeutic anticoagulation Diagnosis/Problems Diagnosis/Problems (1) Sepsis Status: Acute Qualifiers: Sepsis type: sepsis due to unspecified organism Sepsis acute organ dysfunction status: with acute organ dysfunction Severe sepsis acute organ dysfunction type: acute renal failure Acute renal failure type: unspecified Severe sepsis shock status: without septic shock Qualified Codes: A41.9 - Sepsis, unspecified organism; R65.20 - Severe sepsis without septic shock; N17.9 - Acute kidney failure, unspecified (2) Acute kidney injury Status: Acute (3) Lower extremity cellulitis Status: Acute Qualifiers: Laterality: unspecified laterality Qualified Codes: L03.119 - Cellulitis of unspecified part of limb (4) Pneumonia Status: Acute ACE DIAMOND MD Apr 08, 2021 11:11
[2021-04-08 12:00] VITALS: BP 128/72
[2021-04-08] MEDS: HYDROcodone/APAP 5 MG/325 MG (LORTAB) TAB PO PRN (13:31)
[2021-04-08 15:05] VITALS: BP 102/55
[2021-04-08] MEDS: RIVAROXABAN 20 MG TABLET (XARELTO) PO SCH (17:07)
[2021-04-08] MEDS ORDERED: TROUGH ORDER-PHARMACY XX NR (18:00)
[2021-04-08 19:04] VITALS: BP 139/74
[2021-04-08] MEDS: VANCOMYCIN 750 MG/NS 250 ML IVPB IV SCH ×2 (20:13)
[2021-04-08 23:33] VITALS: BP 132/70
[2021-04-09] MEDS: PIPERACILLIN/TAZO 4.5 GM/NS 100 ML IV SCH ×6 (01:15→16:49)
[2021-04-09] MEDS: NS IV 1000 ML 1,000 ML IV SCH ×3 (02:04→22:45)
[2021-04-09 04:00] VITALS: BP 141/74
[2021-04-09] MEDS: HYDROcodone/APAP 5 MG/325 MG (LORTAB) TAB PO PRN (06:52)
[2021-04-09 07:10] VITALS: BP 154/85
[2021-04-09 07:37] LABS: BASOPHILS % (AUTO) 1 % (0-10); EOSINOPHILS # (AUTO) 0.3 10^3/uL (0.0-0.3); EOSINOPHILS % (AUTO) 6 % (0-10); HEMATOCRIT 28 % (35-52); LYMPHOCYTES # (AUTO) 0.9 10^3/uL (1.0-4.0); LYMPHOCYTES % (AUTO) 16 % (12-44); MEAN CORPUSCULAR HEMOGLOBIN 27 pg (25-34); MEAN CORPUSCULAR HGB CONC 29 g/dL (32-36); MEAN CORPUSCULAR VOLUME 94 fL (80-99); MEAN PLATELET VOLUME 8.3 fL (9.0-12.2); MONOCYTES # (AUTO) 0.3 10^3/uL (0.0-1.0); MONOCYTES % (AUTO) 6 % (0-12); NEUTROPHILS # (AUTO) 3.8 10^3/uL (1.8-7.8); NEUTROPHILS % (AUTO) 71 % (42-75); PLATELET COUNT 255 10^3/uL (130-400); WHITE BLOOD COUNT 5.4 10^3/uL (4.3-11.0)
[2021-04-09 07:46] LABS: POTASSIUM 4.3 MMOL/L (3.6-5.0)
[2021-04-09 07:47] LABS: CALCIUM 7.8 MG/DL (8.5-10.1)
[2021-04-09] MEDS: POTASSIUM CL 10MEQ/50ML IVPB 50 ML IV SCH (07:49)
[2021-04-09 07:51] LABS: PHOSPHORUS 2.6 MG/DL (2.3-4.7)
[2021-04-09 07:52] LABS: CREATININE SERUM 1.08 MG/DL (0.60-1.30)
[2021-04-09 07:54] LABS: MAGNESIUM 1.3 MG/DL (1.6-2.4)
[2021-04-09] MEDS: KCL 20 MEQ TAB (K-DUR) PO SCH (08:01)
[2021-04-09] MEDS: MAGNESIUM 1 GM/100 ML IVPB 100 ML IV SCH ×5 (08:02→10:39)
[2021-04-09] MEDS: meTOproloL SUCCINATE 50 MG (TOPROL XL) TAB PO SCH (08:14)
[2021-04-09] MEDS: GABAPENTIN 300 MG (NEURONTIN) CAP PO SCH ×2 (08:14→20:22)
[2021-04-09] MEDS: LORATADINE (CLARITIN) 10 MG TAB PO SCH (08:21)
[2021-04-09] MEDS: RT-BUDESONIDE NEBS 0.5 MG/2ML (PULMICORT) AMP INH SCH ×2 (08:31→21:27)
[2021-04-09] MEDS ORDERED: FURO80TA3 PO (09:59)
[2021-04-09] MEDS ORDERED: BUPR1FIL19 PO (09:59)
[2021-04-09] MEDS ORDERED: RT-ALBUINH INH (09:59)
[2021-04-09] MEDS ORDERED: RIVA20TA PO (09:59)
[2021-04-09] MEDS ORDERED: BUDE10.7 INH (09:59)
[2021-04-09] MEDS ORDERED: BUDE1AMP2 INH (09:59)
[2021-04-09] MEDS ORDERED: DILT120C53 PO (09:59)
[2021-04-09] MEDS ORDERED: FLUO10CA29 PO (09:59)
[2021-04-09] MEDS ORDERED: ALBU1.25 INH (09:59)
[2021-04-09] MEDS ORDERED: ONDA-105 PO (10:01)
[2021-04-09] MEDS: HYDROmorphone 2 MG/ML VIAL (DILAUDID) IV PRN ×4 (10:38→23:48)
[2021-04-09 11:13] VITALS: BP 139/73
--- NOTE | 2021-04-09 13:25 | Progress Note - Hospitalist ---
Subjective HPI/CC On Admission Date Seen by Provider: Apr 09, 2021 Time Seen by Provider: 09:45 Pt is a 56yoCF known to me from previous admissions who presented to the hospital due to fever. She was seen by her home health nurse who noticed her heart rate was up and she was febrile. She has chronic lower extremity edema and wounds and follows with Car[facility]. She was found to be septic criteria from cellulitis with soft BPs so was admitted to the ICU. This morning she reports feeling much better and her only complaint is itching and pain in her legs. She denies SOB or cough. She has not had her COVID vaccine. She actually believes she already had COVID as she tested positive for antibodies in [place] after a severe illness in 09/2019. Subjective/Events-last exam She is having bilateral leg pain. Her legs were just cleaned and they have been bleeding. Focused Exam Lactate Level 04/06/21 16:04: Lactic Acid Level 1.57 Objective Exam Vital Signs Vital Signs Date Time Temp Pulse Resp B/P (MAP) Pulse Ox O2 Delivery O2 Flow Rate FiO2 04/09/21 11:13 36.5 100 20 139/73 (95) 95 Nasal Cannula 2.00 Capillary Refill : Less Than 3 Seconds General Appearance: Mild Distress (uncomfortable), Obese Respiratory: Lungs Clear, Normal Breath Sounds, No Respiratory Distress Cardiovascular: Regular Rate, Rhythm, No Murmur Gastrointestinal: Normal Bowel Sounds, Non Tender, Soft Extremity: Normal Inspection, Inflammation, Pedal Edema, Swelling Neurologic/Psychiatric: Alert, Oriented x3, No Motor/Sensory Deficits, Normal Mood/Affect Skin: Normal Color, Warm/Dry Results/Procedures Lab Laboratory Tests 04/09/21 07:25 Patient resulted labs reviewed. Imaging: Reviewed Imaging Report Assessment/Plan Assessment and Plan Assess & Plan/Chief Complaint Severe sepsis due to pneumonia and cellulitis of bilateral lower extremities Chest xray with bibasilar infiltrate Procalcitonin elevated Continue Vanc and Zosyn Wound care consult Evaluate for peripheral artery disease h/o of DVT AFib Continue Xarelto Monitor on telemetry Continue home meds HTN COPD Continue home meds Obesity Clinically significant, no acute management needs DVT ppx: Already receiving therapeutic anticoagulation Acute kidney injury, resolved Diagnosis/Problems Diagnosis/Problems (1) Sepsis Status: Acute Qualifiers: Sepsis type: sepsis due to unspecified organism Sepsis acute organ dysfunction status: with acute organ dysfunction Severe sepsis acute organ dysfunction type: acute renal failure Acute renal failure type: unspecified Severe sepsis shock status: without septic shock Qualified Codes: A41.9 - Sepsis, unspecified organism; R65.20 - Severe sepsis without septic shock; N17.9 - Acute kidney failure, unspecified (2) Acute kidney injury Status: Acute (3) Lower extremity cellulitis Status: Acute Qualifiers: Laterality: unspecified laterality Qualified Codes: L03.119 - Cellulitis of unspecified part of limb (4) Pneumonia Status: Acute ACE DIAMOND MD Apr 09, 2021 13:25
[2021-04-09] MEDS ORDERED: HOLD METFORMIN - RECEIVED CONTRAST 20 ML VIAL IV SCH (13:30)
[2021-04-09] MEDS ORDERED: NS 100 ML (IVPB) BAG IV ONE (13:30)
[2021-04-09] MEDS ORDERED: CATHETER FLUSH 10 ML SYR IV PRN (13:30)
[2021-04-09] MEDS ORDERED: IOHEXOL 350 MG/ML 150 ML (OMNIPAQUE 350) VIAL IV ONE (13:30)
[2021-04-09 15:40] VITALS: BP 140/75
[2021-04-09] MEDS: RIVAROXABAN 20 MG TABLET (XARELTO) PO SCH (16:49)
--- NOTE | 2021-04-09 16:58 | Diagnostic Imaging Report ---
INDICATION: Peripheral vascular disease, bilateral leg redness and swelling and bleeding. TECHNIQUE: CTA of the lower extremities was performed from the upper pelvis to the feet with axial slices and sagittal and coronal reconstructions and MIP reconstructions. Dose reduction protocol was used. FINDINGS: Soft tissue windows demonstrate a small amount of free fluid in the pelvis. Visualized bowel loops are unremarkable. There is no hematoma or abnormal fluid collection in the extremities bilaterally. There is some diffuse edema throughout the subcutaneous fat of the lower legs on both sides. CTA images demonstrate the common iliac arteries and internal iliac arteries and external iliac artery to be patent and without stenosis or significant plaquing. The common femoral arteries are patent on both sides and appear unremarkable except for some minimal posterior plaquing on the right. The profunda femoris arteries are patent on both sides. The SFA is patent on each side and without stenosis or plaquing. Popliteal arteries are patent bilaterally. The trifurcations appear unremarkable on both sides with all three tibial vessels patent down to the distal leg. IMPRESSION: No significant arterial stenosis or occlusion of the lower extremity arterial systems. Incidentally, there is a small amount of free fluid in the pelvis. There is diffuse edema in the subcutaneous fat of the lower extremities, especially below the knee level. There is no intramuscular hematoma or abnormal fluid collection. Dictated by: Dictated on workstation # [id number]
--- NOTE | 2021-04-09 18:36 | Wound Care Assessment ---
Wound Care Assessment Date Seen by Provider: Apr 09, 2021 Time Seen by Provider: 17:30 Chief Complaint Swelling of bilateral legs. HPI The patient is a 56 year old female with refractory lymphedema, recent episode of fungal dermatitis of legs, due to leaving wet dressings in place, and now bleeding from multiple places of both legs, related to anti-coagulation. She is encouraged to elevate her ankles higher than her heart, in order to improve condition of legs. A + D dressings ordered. Pneumonia. Smoking Status: Current Someday Smoker Review of Systems Pulmonary: No Dyspnea Cardiovascular: No: Chest Pain Exam Vital Signs Date Time Temp Pulse Resp B/P (MAP) Pulse Ox O2 Delivery O2 Flow Rate FiO2 04/09/21 15:40 36.2 121 22 140/75 (96) 94 Nasal Cannula 2.00 Capillary Refill : Less Than 3 Seconds Extremities: other (Bilateral calf erythema and edema; resolving fungal dermatitis.) Results Laboratory Tests 04/09/21 07:25: White Blood Count 5.4, Red Blood Count 2.99L, Hemoglobin 8.0L, Hematocrit 28L, Mean Corpuscular Volume 94, Mean Corpuscular Hemoglobin 27, Mean Corpuscular Hemoglobin Concent 29L, Red Cell Distribution Width 19.7H, Platelet Count 255, Mean Platelet Volume 8.3L, Immature Granulocyte % (Auto) 1, Neutrophils (%) (Auto) 71, Lymphocytes (%) (Auto) 16, Monocytes (%) (Auto) 6, Eosinophils (%) (Auto) 6, Basophils (%) (Auto) 1, Neutrophils # (Auto) 3.8, Lymphocytes # (Auto) 0.9L, Monocytes # (Auto) 0.3, Eosinophils # (Auto) 0.3, Basophils # (Auto) 0.0, Immature Granulocyte # (Auto) 0.0, Sodium Level 143, Potassium Level 4.3, Chloride Level 111H, Carbon Dioxide Level 23, Anion Gap 9, Blood Urea Nitrogen 9, Creatinine 1.08, Estimat Glomerular Filtration Rate 52, BUN/Creatinine Ratio 8, Glucose Level 114H, Calcium Level 7.8L, Phosphorus Level 2.6, Magnesium Level 1.3L Microbiology 04/06/21 MRSA Screen - Final, Complete MRSA not isolated 04/06/21 Blood Culture - Preliminary, Resulted No growth 04/06/21 Urine Culture - Final, Complete Mixed Bacterial Martha Gram Negative Leon YEAST Assessment/Plan/Dx 1. Refractory lymphedema with bilateral calf cellulitis. 2. Fungal dermatitis. 3. Morbid obesity. Plan: Dressings ordered; elevation encouraged. JACINTO NEGRON MD Apr 09, 2021 18:36
[2021-04-09 20:45] VITALS: BP 156/78
[2021-04-10] VITALS (7 sets, daily range): BP systolic 124–166; BP diastolic 59–83
[2021-04-10] MEDS: PIPERACILLIN/TAZO 4.5 GM/NS 100 ML IV SCH ×6 (01:23→16:34)
[2021-04-10] MEDS: HYDROmorphone 2 MG/ML VIAL (DILAUDID) IV PRN ×3 (06:39→20:19)
[2021-04-10 07:03] LABS: POTASSIUM 4.6 MMOL/L (3.6-5.0)
[2021-04-10 07:04] LABS: BASOPHILS % (AUTO) 1 % (0-10); EOSINOPHILS # (AUTO) 0.3 10^3/uL (0.0-0.3); EOSINOPHILS % (AUTO) 5 % (0-10); HEMATOCRIT 29 % (35-52); HEMOGLOBIN 8.3 g/dL (11.5-16.0); LYMPHOCYTES # (AUTO) 1.6 10^3/uL (1.0-4.0); LYMPHOCYTES % (AUTO) 25 % (12-44); MEAN CORPUSCULAR HEMOGLOBIN 27 pg (25-34); MEAN CORPUSCULAR HGB CONC 29 g/dL (32-36); MEAN CORPUSCULAR VOLUME 94 fL (80-99); MEAN PLATELET VOLUME 8.4 fL (9.0-12.2); MONOCYTES # (AUTO) 0.4 10^3/uL (0.0-1.0); MONOCYTES % (AUTO) 6 % (0-12); NEUTROPHILS # (AUTO) 4.1 10^3/uL (1.8-7.8); NEUTROPHILS % (AUTO) 63 % (42-75); PLATELET COUNT 296 10^3/uL (130-400); WHITE BLOOD COUNT 6.5 10^3/uL (4.3-11.0)
[2021-04-10 07:05] LABS: CALCIUM 8.1 MG/DL (8.5-10.1)
[2021-04-10] MEDS: POTASSIUM CL 10MEQ/50ML IVPB 50 ML IV SCH (07:08)
[2021-04-10] MEDS: KCL 20 MEQ TAB (K-DUR) PO SCH (07:08)
[2021-04-10 07:09] LABS: CREATININE SERUM 1.04 MG/DL (0.60-1.30); PHOSPHORUS 2.7 MG/DL (2.3-4.7)
[2021-04-10 07:11] LABS: MAGNESIUM 1.7 MG/DL (1.6-2.4)
[2021-04-10] MEDS: RT-BUDESONIDE NEBS 0.5 MG/2ML (PULMICORT) AMP INH SCH ×2 (07:45→21:44)
[2021-04-10] MEDS: MAGNESIUM 1 GM/100 ML IVPB 100 ML IV SCH (08:09)
[2021-04-10] MEDS: meTOproloL SUCCINATE 50 MG (TOPROL XL) TAB PO SCH (08:40)
[2021-04-10] MEDS: LORATADINE (CLARITIN) 10 MG TAB PO SCH (08:40)
[2021-04-10] MEDS: GABAPENTIN 300 MG (NEURONTIN) CAP PO SCH ×2 (08:40→20:19)
[2021-04-10] MEDS: NS IV 1000 ML 1,000 ML IV SCH ×2 (08:41→16:28)
[2021-04-10] MEDS ORDERED: MICONAZOLE 2% POWDER (DESENEX AF) 90 GM TOP PRN (15:30)
[2021-04-10] MEDS: RIVAROXABAN 20 MG TABLET (XARELTO) PO SCH (16:34)
[2021-04-10] MEDS: A & D OINT 113 GM TUBE TOP SCH (16:48)
--- NOTE | 2021-04-10 17:25 | Progress Note - Hospitalist ---
Subjective HPI/CC On Admission Date Seen by Provider: Apr 10, 2021 Time Seen by Provider: 09:50 Pt is a 56yoCF known to me from previous admissions who presented to the hospital due to fever. She was seen by her home health nurse who noticed her heart rate was up and she was febrile. She has chronic lower extremity edema and wounds and follows with [facility]. She was found to be septic criteria from cellulitis with soft BPs so was admitted to the ICU. This morning she reports feeling much better and her only complaint is itching and pain in her legs. She denies SOB or cough. She has not had her COVID vaccine. She actually believes she already had COVID as she tested positive for antibodies in [place] after a severe illness in 09/2019. Subjective/Events-last exam Her legs are feeling a little better. They are not bleeding. She is keeping them elevated. She has no other complaints or concerns. Objective Exam Vital Signs Vital Signs Date Time Temp Pulse Resp B/P (MAP) Pulse Ox O2 Delivery O2 Flow Rate FiO2 04/10/21 15:45 36.9 105 22 165/81 (109) 95 Nasal Cannula 2.00 04/10/21 15:08 28 Capillary Refill : Less Than 3 Seconds General Appearance: No Apparent Distress, Obese Respiratory: Lungs Clear, Normal Breath Sounds, No Respiratory Distress Cardiovascular: Regular Rate, Rhythm, No Murmur Gastrointestinal: Normal Bowel Sounds, Non Tender, Soft Extremity: Inflammation, Pedal Edema, Swelling Neurologic/Psychiatric: Alert, Oriented x3, No Motor/Sensory Deficits, Normal Mood/Affect Skin: Erythema, Other (dry cracked lower extremities below knees bilaterally) Results/Procedures Lab Laboratory Tests 04/10/21 03:00 04/10/21 06:41 Patient resulted labs reviewed. Imaging: Reviewed Imaging Report Assessment/Plan Assessment and Plan Assess & Plan/Chief Complaint Cellulitis of bilateral lower extremities Lymphedema Pneumonia Continue Zosyn Wound care consulted, appreciate assistance CT showed no evidence of peripheral artery disease LTAC evaluation h/o of DVT AFib Continue Xarelto Continue home meds HTN COPD Continue home meds MAT protocol Obesity Clinically significant, no acute management needs DVT ppx: Already receiving therapeutic anticoagulation Acute kidney injury, resolved Severe sepsis, resolved Diagnosis/Problems Diagnosis/Problems (1) Sepsis Status: Acute Qualifiers: Sepsis type: sepsis due to unspecified organism Sepsis acute organ dysfunction status: with acute organ dysfunction Severe sepsis acute organ dy sfunction type: acute renal failure Acute renal failure type: unspecified Severe sepsis shock status: without septic shock Qualified Codes: A41.9 - Sepsis, unspecified organism; R65.20 - Severe sepsis without septic shock; N17.9 - Acute kidney failure, unspecified (2) Acute kidney injury Status: Acute (3) Lower extremity cellulitis Status: Acute Qualifiers: Laterality: unspecified laterality Qualified Codes: L03.119 - Cellulitis of unspecified part of limb (4) Pneumonia Status: Acute ACE DIAMOND MD Apr 10, 2021 17:25
[2021-04-10] MEDS: LOPERAMIDE 2 MG (IMODIUM) TABLET PO PRN (20:19)
[2021-04-10] MEDS: RT-ALBUTEROL/IPRATROPIUM 3 ML (DUONEB) VIAL INH SCH (21:47)
[2021-04-11] VITALS: BP 134/72
[2021-04-11] MEDS: RT-ALBUTEROL/IPRATROPIUM 3 ML (DUONEB) VIAL INH SCH ×4 (03:22→21:19)
[2021-04-11] MEDS: HYDROmorphone 2 MG/ML VIAL (DILAUDID) IV PRN ×5 (03:50→18:26)
[2021-04-11 04:03] VITALS: BP 117/65
[2021-04-11 06:01] LABS: BASOPHILS % (AUTO) 0 % (0-10); EOSINOPHILS # (AUTO) 0.5 10^3/uL (0.0-0.3); EOSINOPHILS % (AUTO) 7 % (0-10); HEMATOCRIT 28 % (35-52); HEMOGLOBIN 8.1 g/dL (11.5-16.0); LYMPHOCYTES # (AUTO) 1.6 10^3/uL (1.0-4.0); LYMPHOCYTES % (AUTO) 23 % (12-44); MEAN CORPUSCULAR HEMOGLOBIN 28 pg (25-34); MEAN CORPUSCULAR HGB CONC 29 g/dL (32-36); MEAN CORPUSCULAR VOLUME 95 fL (80-99); MEAN PLATELET VOLUME 8.5 fL (9.0-12.2); MONOCYTES # (AUTO) 0.4 10^3/uL (0.0-1.0); MONOCYTES % (AUTO) 5 % (0-12); NEUTROPHILS # (AUTO) 4.3 10^3/uL (1.8-7.8); NEUTROPHILS % (AUTO) 64 % (42-75); PLATELET COUNT 243 10^3/uL (130-400); WHITE BLOOD COUNT 6.7 10^3/uL (4.3-11.0)
[2021-04-11] MEDS: NS IV 1000 ML 1,000 ML IV SCH ×3 (06:01→23:53)
[2021-04-11 06:15] LABS: POTASSIUM 4.2 MMOL/L (3.6-5.0)
[2021-04-11 06:16] LABS: CALCIUM 8.3 MG/DL (8.5-10.1)
[2021-04-11 06:20] LABS: PHOSPHORUS 2.3 MG/DL (2.3-4.7)
[2021-04-11] MEDS: KCL 20 MEQ TAB (K-DUR) PO SCH (06:21)
[2021-04-11] MEDS: POTASSIUM CL 10MEQ/50ML IVPB 50 ML IV SCH (06:21)
[2021-04-11 06:23] LABS: MAGNESIUM 1.5 MG/DL (1.6-2.4)
[2021-04-11] MEDS: MAGNESIUM 1 GM/100 ML IVPB 100 ML IV SCH ×3 (06:28→07:58)
[2021-04-11] MEDS: GABAPENTIN 300 MG (NEURONTIN) CAP PO SCH ×2 (07:59→21:34)
[2021-04-11] MEDS: LORATADINE (CLARITIN) 10 MG TAB PO SCH (07:59)
[2021-04-11 08:00] VITALS: BP 147/79
[2021-04-11] MEDS: meTOproloL SUCCINATE 50 MG (TOPROL XL) TAB PO SCH (08:00)
[2021-04-11] MEDS: RT-BUDESONIDE NEBS 0.5 MG/2ML (PULMICORT) AMP INH SCH ×2 (08:22→21:19)
[2021-04-11] MEDS ORDERED: A & D OINT 113 GM TUBE TOP SCH (09:00)
--- NOTE | 2021-04-11 10:35 | Physical Therapy Evaluation ---
PT Evaluation-General Medical Diagnosis Admission Date Apr 06, 2021 at 18:37 Medical Diagnosis: severe sepsis Onset Date: Apr 06, 2021 Therapy Diagnosis Therapy Diagnosis: debility/weakness Height/Weight Height (Feet): 5 Height (Inches): 5.00 Weight (Pounds): 218 Weight (Ounces): 0.0 Precautions Precautions/Isolations: Fall Prevention Weight Bear Status Right Lower Extremity: Right Non Weight Bearing Left Lower Extremity: Left Non Weight Bearing Referral Physician: Unruly Reason for Referral: Evaluation/Treatment Medical History Pertinent Medical History: Atrial Fib, Alcoholism, COPD, GERD, Heart Failure, HTN, Smoking Current History ER secondary loose stools, fever, abdominal pain and elevated HR. Reviewed History: Yes Social History Home: Apartment Current Living Status: Alone Entry Into Home: Level Entry Prior Prior Level of Function SCALE: Activities may be completed with or without assistive devices. 6-Yvjmvwsxpt-axlqnxm completes the activity by him/herself with no assistance from a helper. 5-Set-up or Clean-up Assistance-helper sets up or cleans up; patient completes activity. [place] assists only prior to or following the activity. 4-Supervision or Touching Assistance-helper provides verbal cues and/or touching/steadying and/or contact guard assistance as patient completes activity. Assistance may be provided throughout the activity or intermittently. 3-Partial/Moderate Assistance-helper does LESS THAN HALF the effort. [place] lifts, holds or supports trunk or limbs, but provides less than half the effort. 2-Substantial/Maximal Assistance-helper does MORE THAN HALF the effort. [place] lifts or holds trunk or limbs and provides more than half the effort. 0-Cwadzhazm-lntbne does ALL the effort. Patient does none of the effort to complete the activity. Or, the assistance of 2 or more helpers is required for the patient to complete the activity. If activity was not attempted, code reason: 7-Patient Refused. 9-Not Applicable-not attempted and the patient did not perform the activity before the current illness, exacerbation or injury. 10-Not Attempted due to Environmental Limitations-(lack of equipment, weather restraints, etc.). 88-Not Attempted due to Medical Conditions or Safety Concerns. Bed Mobility: 5 Transfers (B,C,W/C): 5 Gait: 5 Indoor Mobility (Ambulation): Independent Prior Devices Use: Other-see list below cane PT Evaluation-Current Subjective Patient agrees to PT. Objective Patient Orientation: Normal For Age Attachments: Oxygen, IV ROM/Strength ROM Lower Extremities bilateral LE WFL (noted edema) Strength Lower Extremities 3/5 grossly bilateral LE Integumentary/Posture Integumentary refer to nursing notes Bowel Incontinence: No Bladder Incontinence: No Posture WFL Neuromuscular (Tone, Coordination, Reflexes) grossly intact Sensory Vision: Wears Glasses Hearing: Functional Transfers Lying to Sitting/Side of Bed(Q: 3 Sit to Stand (QC): 3 Chair/Oed-qw-Vtimv Xfer(QC): 3 Gait Does the Patient Walk?: Yes Mode of Locomotion: Walk Anticipated Mode of Locomotion: Walk Walk 10 feet (QC): 3 Walk 50 ft with 2 Turns(QC): 88 Walk 150 ft (QC): 88 Distance: 10' Gait Assistive Device: Cane Single Point Comments/Gait Description shuffle gait sequence Balance Sitting Static: Normal Sitting Dynamic: Normal Standing Static: Fair Standing Dynamic: Fair Assessment/Needs 56 y.o. female, will benefit from skilled PT to address functional strength and mobility to improve current LOF. Patient is limited due to bilateral distal LE wounds/bleeding. Rehab Potential: Fair PT Automatic I Threading Machine Feeder Goals Automatic I Threading Machine Feeder Goals PT Automatic I Threading Machine Feeder Goals Time Frame: Apr 20, 2021 Roll Left & Right (QC): 4 Sit to Lying (QC): 4 Lying-Sitting on Side/Bed(QC): 4 Sit to Stand (QC): 4 Chair/Okj-yq-Sijps Xfer(QC): 4 Toilet Transfer (QC): 4 Does the Patient Walk: Yes Walk 10 feet (QC): 4 Walk 50ft with 2 Turns (QC): 4 PT Plan Problem List Problem List: Activity Tolerance, Functional Strength, Safety, Balance, Gait, Transfer, Bed Mobility Treatment/Plan Treatment Plan: Continue Plan of Care Treatment Plan: Bed Mobility, Education, Functional Activity Lyn, Functional Strength, Gait, Safety, Therapeutic Exercise, Transfers Treatment Duration: Apr 20, 2021 Frequency: 6 times per week Estimated Hrs Per Day: .25 hour per day Patient and/or Family Agrees t: Yes Time/GCodes Time In: 1000 Time Out: 1010 Total Billed Treatment Time: 10 Total Billed Treatment 1 visit EVModC 10 min MERVIN PETERSON PT Apr 11, 2021 10:35
--- NOTE | 2021-04-11 11:29 | Progress Note - Hospitalist ---
JOSH JERRY MED STUDENT 04/11/21 1129: Subjective HPI/CC On Admission Date Seen by Provider: Apr 11, 2021 Time Seen by Provider: 09:00 Pt is a 56yoCF known to me from previous admissions who presented to the hospital due to fever. She was seen by her home health nurse who noticed her heart rate was up and she was febrile. She has chronic lower extremity edema and wounds and follows with [facility]. She was found to be septic criteria from cellulitis with soft BPs so was admitted to the ICU. This morning she reports feeling much better and her only complaint is itching and pain in her legs. She denies SOB or cough. She has not had her COVID vaccine. She actually believes she already had COVID as she tested positive for antibodies in [place] after a severe illness in 09/2019. Subjective/Events-last exam Pt feels that her legs are improving and is keeping them elevated. Says she feels that her heart is beating fast. No other complaints. Objective Exam Vital Signs Vital Signs Date Time Temp Pulse Resp B/P (MAP) Pulse Ox O2 Delivery O2 Flow Rate FiO2 04/11/21 08:25 92 Nasal Cannula 2.00 04/11/21 08:00 36.2 127 18 147/79 (101) 04/10/21 15:08 28 Capillary Refill : Less Than 3 Seconds General Appearance: No Apparent Distress, WD/WN HEENT: PERRL/EOMI Respiratory: No Accessory Muscle Use, No Respiratory Distress Cardiovascular: No Murmur, Tachycardia Gastrointestinal: Non Tender; No Distended Extremity: Other (bilateral LE edema, erythema, and skin flaking below the knees; tender to palpation) Neurologic/Psychiatric: Alert, Oriented x3, Normal Mood/Affect Results/Procedures Lab Laboratory Tests 04/11/21 05:40 Patient resulted labs reviewed. Imaging: Reviewed Imaging Report Assessment/Plan Assessment and Plan Assess & Plan/Chief Complaint Cellulitis of bilateral lower extremities Wound care consulted, appreciate assistance CT showed no evidence of peripheral artery disease LTAC evaluation Lymphedema Pneumonia Completed course of Zosyn h/o of DVT AFib Continue Xarelto Continue home meds Will change Toprol 50 mg daily to Lopressor 50 mg BID HTN COPD Continue home meds MAT protocol Obesity Clinically significant, no acute management needs DVT ppx: Already receiving therapeutic anticoagulation Acute kidney injury, resolved Severe sepsis, resolved ACE DIAMOND MD 04/11/21 1407: Diagnosis/Problems Diagnosis/Problems (1) Lower extremity cellulitis Status: Acute Qualifiers: Qualified Codes: L03.119 - Cellulitis of unspecified part of limb (2) Lymphedema of both lower extremities Status: Acute (3) Pneumonia Status: Acute (4) Paroxysmal A-fib Status: Chronic Supervisory-Addendum Brief Verification & Attestation Participated in pt care: history, MDM, physical Personally performed: exam, history, MDM, supervision of care Care discussed with: Medical Student Procedures: n/a Results interpretation: Verified all documentation A medical student performed and documented this service. I then reviewed and verified all information documented by the medical student and made modifi cations to such information, when appropriate. I personally performed a history, physical exam, and performed medical decision making. JOSH JERRY MED STUDENT Apr 11, 2021 11:29 ACE DIAMOND MD Apr 11, 2021 14:07
[2021-04-11] MEDS ORDERED: meTOprolol TARTRATE 50 MG (LOPRESSOR) TAB PO ONE (11:30)
--- NOTE | 2021-04-11 11:44 | Occupational Therapy Eval ---
OT Evaluation-General/PLF Medical Diagnosis Admission Date Apr 06, 2021 at 18:37 Medical Diagnosis: severe sepsis Onset Date: Apr 06, 2021 Therapy Diagnosis Therapy Diagnosis: Decreased ADL status Height/Weight Height (Feet): 5 Height (Inches): 5.00 Weight (Pounds): 218 Weight (Ounces): 0.0 Precautions Precautions/Isolations: Fall Prevention Referral Physician: Unruly Referral Reason: Activity Tolerance, Self Care, Evaluation/Treatment, Strengthening/ROM Medical History Pertinent Medical History: Atrial Fib, Alcoholism, COPD, GERD, Heart Failure, HTN, Smoking Additional Medical History a fib, COPD, DVT hx, HTN, RUE paralysis, depression, bipolar, ETOH abuse, smokes 2PPD Current History Pt admits after fever/ chronic LE edema/ wounds/ cellulitis and sepsis. Reviewed History: Yes Social History Home: Apartment Current Living Status: Children (daughter) Entry Into Home: Level Entry ADL-Prior Level of Function SCALE: Activities may be completed with or without assistive devices. 8-Jjohjpyqul-bvzfnwz completes the activity by him/herself with no assistance from a helper. 5-Set-up or Clean-up Assistance-helper sets up or cleans up; patient completes activity. [place] assists only prior to or following the activity. 4-Supervision or Touching Assistance-helper provides verbal cues and/or touching/steadying and/or contact guard assistance as patient completes activity. Assistance may be provided throughout the activity or intermittently. 3-Partial/Moderate Assistance-helper does LESS THAN HALF the effort. [place] lifts, holds or supports trunk or limbs, but provides less than half the effort. 2-Substantial/Maximal Assistance-helper does MORE THAN HALF the effort. [place] lifts or holds trunk or limbs and provides more than half the effort. 6-Uwbafifyh-ompuoz does ALL the effort. Patient does none of the effort to complete the activity. Or, the assistance of 2 or more helpers is required for the patient to complete the activity. If activity was not attempted, code reason: 7-Patient Refused. 9-Not Applicable-not attempted and the patient did not perform the activity before the current illness, exacerbation or injury. 10-Not Attempted due to Environmental Limitations-(lack of equipment, weather restraints, etc.). 88-Not Attempted due to Medical Conditions or Safety Concerns. ADL PLOF Comments Pt expresses IND with ADLs with use of SPC within home, daughter assists with IADLs. Pt expresses most difficulty with dressing/ wrapping LEs, however, has another daughter in [place] that, "Doesn't do much," so she assists in wrapping now and then. Self Care: Independent Functional Cognition: Independent DME/Equipment: Bath Chair, Shower DME/Equipment Comments cane, walker, w/c, walk in shower with sc, soon to be gbs as dad will supply Occupation: disabled. Drive Self: No OT Current Status Subjective Pt's nurse states pt just got back to bed. Pt expresses 9/10 pain in BLE. Pt agreeable to OT eval. AxO Mental Status/Objective Patient Orientation: Person, Place, Situation Current Glasses/Contacts: Yes Hearing Aids: No Hand Dominance: Left Upper Extremity ROM WFL LUE Decreased R hand mobility but WFL proximally Upper Extremity Coordination WFL L, decreased R Upper Extremity Sensation WFL Upper Extremity Strength Decreased Edema: bilateral, reddened, wounds/ weeping. ADL-Treatment Eating (QC): 5 (expresses IND other than using knife) Oral Hygiene (QC): 6 (IND) On/Off Footwear (QC): 88 (not safe to complete at this time due to severity of wounds.) Other Treatments Pt compeltes all questioning/ MMT/ ROM in bed. Pt expresses desires to get stronger in UEs and to eventually be able to don shoes. Pt expresses her weeping has decreased, however, increased bleeding through BLE during this acute stay. Pt states she follows wound care, completes wound care at home 1x daily as well and receives nursing. Pt agrees to continued OT to address functional I/ADLs and UE strength. All needs met, call light in reach, pt left in bed with nursing present. Education OT Patient Education: Correct positioning, Purpose of tx/functional activities, Safety issues Teaching Recipient: Patient Teaching Methods: Demonstration, Discussion Response to Teaching: Verbalize Understanding, Return Demonstration OT Retirement Goals Supervisor Costuming Goals Time Frame: Apr 25, 2021 Eating (QC): 6 Oral Hygiene (QC): 6 Toileting Hygiene (QC): 4 Shower/Bathe Self (QC): 4 Upper Body Dressing (QC): 5 Lower Body Dressing (QC): 4 On/Off Footwear (QC): 88 Additional Goals: 1-Demonstrate ADL Tasks, 2-Verbalize Understanding, 3- ImproveStrength/Lyn 1=Demonstrate adherence to instructed precautions during ADL tasks. 2=Patient will verbalize/demonstrate understanding of assistive devices/modifications for ADL. 3=Patient will improve strength/tolerance for activity to enable patient to perform ADL's. OT Education/Plan Problem List/Assessment Assessment: Decreased Activ Tolerance, Decreased UE Strength, Dependent Transfers, Edema, Impaired Bed Mobility, Impaired Coordination, Impaired Funct Balance, Impaired I ADL's, Impaired Self-Care Skills, Restricted Funct UE ROM Discharge Recommendations Plan/Recommendations: Continue POC Therapy Discharge Recommendati: 24 Hour Supervision, Post Acute OT Treatment Plan/Plan of Care Treatment,Training & Education: Yes Patient would benefit from OT for education, treatment and training to promote independence in ADL's, mobility, safety and/or upper extremity function for ADL's. Plan of Care: ADL Retraining, Caregiver Training, Functional Mobility, UE Funct Exercise/Act, W/C Management Training Treatment Duration: Apr 25, 2021 Frequency: 5 times per week Estimated Hrs Per Day: .5 hour per day Agreement: Yes Rehab Potential: Fair Time/GCodes Start Time: 11:12 Stop Time: 11:21 Total Time Billed (hr/min): 9 Billed Treatment Time 1AMARI (9) MICHEL TRIMBLE OTR Apr 11, 2021 11:44
[2021-04-11 12:00] VITALS: BP 154/83
[2021-04-11 16:00] VITALS: BP 162/102
[2021-04-11] MEDS: RIVAROXABAN 20 MG TABLET (XARELTO) PO SCH (17:40)
[2021-04-11] MEDS: ACETAMINOPHEN 325 MG TABLET PO PRN (18:29)
[2021-04-11 20:00] VITALS: BP 175/99
[2021-04-11] MEDS: meTOprolol TARTRATE 50 MG (LOPRESSOR) TAB PO SCH (21:34)
[2021-04-11] MEDS: LOPERAMIDE 2 MG (IMODIUM) TABLET PO PRN (21:39)
[2021-04-12] VITALS (7 sets, daily range): BP systolic 137–168; BP diastolic 56–95
[2021-04-12] MEDS: HYDROmorphone 2 MG/ML VIAL (DILAUDID) IV PRN ×4 (00:16→21:02)
[2021-04-12] MEDS: RT-ALBUTEROL/IPRATROPIUM 3 ML (DUONEB) VIAL INH SCH ×4 (02:29→20:20)
[2021-04-12 05:09] LABS: BASOPHILS % (AUTO) 0 % (0-10); EOSINOPHILS # (AUTO) 0.4 10^3/uL (0.0-0.3); EOSINOPHILS % (AUTO) 7 % (0-10); HEMATOCRIT 26 % (35-52); HEMOGLOBIN 7.6 g/dL (11.5-16.0); LYMPHOCYTES # (AUTO) 1.5 10^3/uL (1.0-4.0); LYMPHOCYTES % (AUTO) 25 % (12-44); MEAN CORPUSCULAR HEMOGLOBIN 27 pg (25-34); MEAN CORPUSCULAR HGB CONC 29 g/dL (32-36); MEAN CORPUSCULAR VOLUME 94 fL (80-99); MEAN PLATELET VOLUME 8.8 fL (9.0-12.2); MONOCYTES # (AUTO) 0.4 10^3/uL (0.0-1.0); MONOCYTES % (AUTO) 7 % (0-12); NEUTROPHILS # (AUTO) 3.8 10^3/uL (1.8-7.8); NEUTROPHILS % (AUTO) 61 % (42-75); PLATELET COUNT 237 10^3/uL (130-400); WHITE BLOOD COUNT 6.1 10^3/uL (4.3-11.0)
[2021-04-12 05:21] LABS: CHLORIDE 110 MMOL/L (98-107); POTASSIUM 3.7 MMOL/L (3.6-5.0); SODIUM 141 MMOL/L (135-145)
[2021-04-12 05:22] LABS: CALCIUM 8.2 MG/DL (8.5-10.1)
[2021-04-12 05:23] LABS: GLUCOSE 106 MG/DL (70-105)
[2021-04-12 05:24] LABS: CARBON DIOXIDE 22 MMOL/L (21-32)
[2021-04-12 05:26] LABS: PHOSPHORUS 2.5 MG/DL (2.3-4.7)
[2021-04-12 05:27] LABS: BUN/CREATININE RATIO 7; CREATININE SERUM 0.87 MG/DL (0.60-1.30); GFR ESTIMATED > 60
[2021-04-12 05:29] LABS: MAGNESIUM 1.6 MG/DL (1.6-2.4)
[2021-04-12] MEDS: MAGNESIUM 1 GM/100 ML IVPB 100 ML IV SCH (05:36)
[2021-04-12] MEDS: KCL 20 MEQ TAB (K-DUR) PO SCH (05:36)
[2021-04-12] MEDS: POTASSIUM CL 10MEQ/50ML IVPB 50 ML IV SCH (05:36)
[2021-04-12] MEDS: RT-BUDESONIDE NEBS 0.5 MG/2ML (PULMICORT) AMP INH SCH ×2 (07:29→20:19)
[2021-04-12] MEDS: GABAPENTIN 300 MG (NEURONTIN) CAP PO SCH ×2 (08:05→20:52)
[2021-04-12] MEDS: LORATADINE (CLARITIN) 10 MG TAB PO SCH (08:05)
[2021-04-12] MEDS: AUGMENTIN 875 MG TAB (AMOXICILLIN/CLAVULANATE) PO SCH ×2 (08:05→18:56)
[2021-04-12] MEDS: meTOprolol TARTRATE 50 MG (LOPRESSOR) TAB PO SCH ×2 (08:05→20:53)
[2021-04-12] MEDS: A & D OINT 113 GM TUBE TOP SCH (08:06)
--- NOTE | 2021-04-12 11:12 | Physical Therapy Progress Note ---
Therapy Progress Note Patient declined PT stating, "I don't feel like it. I can get up later. I don't want to walk because it makes my legs bleed." PT attempted to encourage bilateral LE exercises, however, patient declined and returned to watching a show on her phone. 1 ref ([id number]) MERVIN PETERSON PT Apr 12, 2021 11:12
--- NOTE | 2021-04-12 13:19 | Physical Therapy Daily Note ---
PT Daily Note-Current Subjective Patient agrees to PT. C/o 9/10 bilateral distal LE pain. Pain Numeric Pain Scale: 9 Location: Right, Left Location Body Site: Calf Pain Description: Pressure, Burning Comment: RN issuing pain medication Mental Status Patient Orientation: Normal For Age Attachments: Oxygen, IV Transfers SCALE: Activities may be completed with or without assistive devices. 5-Ruxvqlfuxj-jhayfpl completes the activity by him/herself with no assistance from a helper. 5-Set-up or Clean-up Assistance-helper sets up or cleans up; patient completes activity. [place] assists only prior to or following the activity. 4-Supervision or Touching Assistance-helper provides verbal cues and/or touching/steadying and/or contact guard assistance as patient completes activity. Assistance may be provided throughout the activity or intermittently. 3-Partial/Moderate Assistance-helper does LESS THAN HALF the effort. [place] lifts, holds or supports trunk or limbs, but provides less than half the effort. 2-Substantial/Maximal Assistance-helper does MORE THAN HALF the effort. [place] lifts or holds trunk or limbs and provides more than half the effort. 5-Totkqlbiw-uwlzfx does ALL the effort. Patient does none of the effort to complete the activity. Or, the assistance of 2 or more helpers is required for the patient to complete the activity. If activity was not attempted, code reason: 7-Patient Refused. 9-Not Applicable-not attempted and the patient did not perform the activity before the current illness, exacerbation or injury. 10-Not Attempted due to Environmental Limitations-(lack of equipment, weather restraints, etc.). 88-Not Attempted due to Medical Conditions or Safety Concerns. Lying to Sitting/Side of Bed(Q: 6 Sit to Stand (QC): 4 Chair/Chy-rs-Htzzb Xfer(QC): 4 Weight Bearing Right Lower Extremity: Right Non Weight Bearing Left Lower Extremity: Left Non Weight Bearing Exercises Seated Therapy Exercises: Ankle pumps, Long arc quads Seated Reps: 12 Assessment Patient tolerates minimal activity due to bilateral LE pain and patient's fear of her wounds bleeding. PT to increase activity as tolerated by patient. PT Care Home Goals Special Education Curriculum Specialist Goals PT Special Education Curriculum Specialist Goals Time Frame: Apr 20, 2021 Roll Left & Right (QC): 4 Sit to Lying (QC): 4 Lying-Sitting on Side/Bed(QC): 4 Sit to Stand (QC): 4 Chair/Blm-oa-Qsuym Xfer(QC): 4 Toilet Transfer (QC): 4 Does the Patient Walk: Yes Walk 10 feet (QC): 4 Walk 50ft with 2 Turns (QC): 4 PT Plan Treatment/Plan Treatment Plan: Continue Plan of Care Treatment Plan: Bed Mobility, Education, Functional Activity Lyn, Functional Strength, Gait, Safety, Therapeutic Exercise, Transfers Treatment Duration: Apr 20, 2021 Frequency: 6 times per week Estimated Hrs Per Day: .25 hour per day Patient and/or Family Agrees t: Yes Time/GCodes Time In: 1255 Time Out: 1309 Total Billed Treatment Time: 14 Total Billed Treatment 1 visit FA 14 min MERVIN PETERSON PT Apr 12, 2021 13:19
--- NOTE | 2021-04-12 13:45 | Occ Therapy Progress Note ---
Therapy Progress Note OT attempted tx, pt politely declined, stating she is too tired. OT educated pt on purpose and benefit of OT, encouraging her to participate in UE exercise or ADLs, pt still declined stating she does not want any OT services today. OT will follow up on Thursday. 1, refusal [phone] REECE ROSA OT Apr 12, 2021 13:45
[2021-04-12] MEDS: NS IV 1000 ML 1,000 ML IV SCH (14:00)
--- NOTE | 2021-04-12 14:58 | Progress Note - Hospitalist ---
Subjective HPI/CC On Admission Date Seen by Provider: Apr 12, 2021 Time Seen by Provider: 10:25 Pt is a 56yoCF known to me from previous admissions who presented to the hospital due to fever. She was seen by her home health nurse who noticed her heart rate was up and she was febrile. She has chronic lower extremity edema and wounds and follows with [facility]. She was found to be septic criteria from cellulitis with soft BPs so was admitted to the ICU. This morning she reports feeling much better and her only complaint is itching and pain in her legs. She denies SOB or cough. She has not had her COVID vaccine. She actually believes she already had COVID as she tested positive for antibodies in [place] after a severe illness in 09/2019. Subjective/Events-last exam She continues to have leg pain. She denies any other complaints or concerns. Objective Exam Vital Signs Vital Signs Date Time Temp Pulse Resp B/P (MAP) Pulse Ox O2 Delivery O2 Flow Rate FiO2 04/12/21 12:00 36.0 107 20 161/85 (110) 94 Nasal Cannula 2.00 04/10/21 15:08 28 Capillary Refill : Less Than 3 Seconds General Appearance: No Apparent Distress, Obese Respiratory: Lungs Clear, Normal Breath Sounds, No Respiratory Distress Cardiovascular: Regular Rate, Rhythm, No Murmur Gastrointestinal: Normal Bowel Sounds, Non Tender, Soft Extremity: Inflammation, Swelling Neurologic/Psychiatric: Alert, Oriented x3, No Motor/Sensory Deficits, Normal Mood/Affect Skin: Erythema Results/Procedures Lab Laboratory Tests 04/12/21 05:00 Patient resulted labs reviewed. Imaging: Reviewed Imaging Report Assessment/Plan Assessment and Plan Assess & Plan/Chief Complaint Cellulitis of bilateral lower extremities Lymphedema Pneumonia Wound care consulted, appreciate assistance CT showed no evidence of peripheral artery disease Plan to discharge home with home health Thursday Continue Augmentin h/o of DVT AFib Continue Xarelto Increase Metoprolol HTN COPD Continue home meds MAT protocol Obesity Clinically significant, no acute management needs Anemia Monitor DVT ppx: Already receiving therapeutic anticoagulation Acute kidney injury, resolved Severe sepsis, resolved Diagnosis/Problems Diagnosis/Problems (1) Lower extremity cellulitis Status: Acute Qualifiers: Laterality: unspecified laterality Qualified Codes: L03.119 - Cellulitis of unspecified part of limb (2) Lymphedema of both lower extremities Status: Acute (3) Pneumonia Status: Acute (4) Paroxysmal A-fib Status: Chronic ACE DIAMOND MD Apr 12, 2021 14:58
[2021-04-12] MEDS: ACETAMINOPHEN 325 MG TABLET PO PRN (16:08)
[2021-04-12] MEDS: RIVAROXABAN 20 MG TABLET (XARELTO) PO SCH (18:56)
[2021-04-13] MEDS: NS IV 1000 ML 1,000 ML IV SCH ×2 (00:21→05:55)
[2021-04-13] MEDS: HYDROmorphone 2 MG/ML VIAL (DILAUDID) IV PRN ×3 (02:01→17:27)
[2021-04-13] MEDS: RT-ALBUTEROL/IPRATROPIUM 3 ML (DUONEB) VIAL INH SCH ×4 (03:09→20:09)
[2021-04-13 04:13] VITALS: BP 144/82
[2021-04-13 05:55] LABS: BASOPHILS % (AUTO) 1 % (0-10); EOSINOPHILS # (AUTO) 0.4 10^3/uL (0.0-0.3); EOSINOPHILS % (AUTO) 6 % (0-10); HEMATOCRIT 26 % (35-52); HEMOGLOBIN 7.4 g/dL (11.5-16.0); LYMPHOCYTES # (AUTO) 1.4 10^3/uL (1.0-4.0); LYMPHOCYTES % (AUTO) 23 % (12-44); MEAN CORPUSCULAR HEMOGLOBIN 27 pg (25-34); MEAN CORPUSCULAR HGB CONC 29 g/dL (32-36); MEAN CORPUSCULAR VOLUME 93 fL (80-99); MEAN PLATELET VOLUME 8.5 fL (9.0-12.2); MONOCYTES # (AUTO) 0.5 10^3/uL (0.0-1.0); MONOCYTES % (AUTO) 8 % (0-12); NEUTROPHILS # (AUTO) 3.9 10^3/uL (1.8-7.8); NEUTROPHILS % (AUTO) 62 % (42-75); PLATELET COUNT 229 10^3/uL (130-400); WHITE BLOOD COUNT 6.2 10^3/uL (4.3-11.0)
[2021-04-13 06:06] LABS: CHLORIDE 111 MMOL/L (98-107); POTASSIUM 3.7 MMOL/L (3.6-5.0); SODIUM 143 MMOL/L (135-145)
[2021-04-13 06:07] LABS: CALCIUM 8.2 MG/DL (8.5-10.1)
[2021-04-13 06:08] LABS: GLUCOSE 110 MG/DL (70-105)
[2021-04-13 06:09] LABS: CARBON DIOXIDE 23 MMOL/L (21-32)
[2021-04-13 06:12] LABS: CREATININE SERUM 0.84 MG/DL (0.60-1.30); GFR ESTIMATED > 60; PHOSPHORUS 2.6 MG/DL (2.3-4.7)
[2021-04-13] MEDS: POTASSIUM CL 10MEQ/50ML IVPB 50 ML IV SCH (06:12)
[2021-04-13] MEDS: KCL 20 MEQ TAB (K-DUR) PO SCH (06:12)
[2021-04-13 06:13] LABS: BUN/CREATININE RATIO 7
[2021-04-13 06:14] LABS: MAGNESIUM 1.6 MG/DL (1.6-2.4)
[2021-04-13] MEDS: MAGNESIUM 1 GM/100 ML IVPB 100 ML IV SCH ×3 (06:21→09:29)
[2021-04-13 08:00] VITALS: BP 157/90
[2021-04-13] MEDS: RT-BUDESONIDE NEBS 0.5 MG/2ML (PULMICORT) AMP INH SCH ×2 (09:21→20:10)
[2021-04-13] MEDS: GABAPENTIN 300 MG (NEURONTIN) CAP PO SCH ×2 (09:27→19:51)
[2021-04-13] MEDS: AUGMENTIN 875 MG TAB (AMOXICILLIN/CLAVULANATE) PO SCH ×2 (09:27→17:27)
[2021-04-13] MEDS: LORATADINE (CLARITIN) 10 MG TAB PO SCH (09:27)
[2021-04-13] MEDS: A & D OINT 113 GM TUBE TOP SCH (09:28)
[2021-04-13] MEDS: meTOprolol TARTRATE 50 MG (LOPRESSOR) TAB PO SCH ×2 (09:28→19:51)
[2021-04-13] MEDS ORDERED: oxyCODONE ER 20 MG (OxyCONTIN CR) TAB PO ONE (10:45)
[2021-04-13] MEDS ORDERED: FUROSEMIDE 40 MG/4 ML INJ (LASIX) IVP ONE (10:45)
[2021-04-13 12:00] VITALS: BP 168/91
[2021-04-13] MEDS ORDERED: oxyCODONE ER 15 MG (oxyCONTIN CR) TAB PO ONE (13:00)
--- NOTE | 2021-04-13 13:26 | Physical Therapy Progress Note ---
Therapy Progress Note Pt refused therapy because she had just transferred over the the bedside chair. She noted that she had been getting up to the bathroom throughout the day. HEIDI MATA PT Apr 13, 2021 13:26
--- NOTE | 2021-04-13 13:27 | Progress Note - Hospitalist ---
Subjective HPI/CC On Admission Date Seen by Provider: Apr 13, 2021 Time Seen by Provider: 10:40 Pt is a 56yoCF known to me from previous admissions who presented to the hospital due to fever. She was seen by her home health nurse who noticed her heart rate was up and she was febrile. She has chronic lower extremity edema and wounds and follows with [facility]. She was found to be septic criteria from cellulitis with soft BPs so was admitted to the ICU. This morning she reports feeling much better and her only complaint is itching and pain in her legs. She denies SOB or cough. She has not had her COVID vaccine. She actually believes she already had COVID as she tested positive for antibodies in [place] after a severe illness in 09/2019. Subjective/Events-last exam She is still having a lot of pain in her legs. Her palpitations have resolved. She has no other complaints or concerns. Objective Exam Vital Signs Vital Signs Date Time Temp Pulse Resp B/P (MAP) Pulse Ox O2 Delivery O2 Flow Rate FiO2 04/13/21 12:00 36.8 105 20 168/91 (116) 90 Nasal Cannula 3.00 04/10/21 15:08 28 Capillary Refill : Less Than 3 Seconds General Appearance: No Apparent Distress, Obese Respiratory: Lungs Clear, Normal Breath Sounds, No Respiratory Distress Cardiovascular: Regular Rate, Rhythm, No Murmur Gastrointestinal: Normal Bowel Sounds, Non Tender, Soft Extremity: Inflammation, Swelling Neurologic/Psychiatric: Alert, Oriented x3, No Motor/Sensory Deficits, Normal Mood/Affect Skin: Erythema Results/Procedures Lab Laboratory Tests 04/13/21 05:45 Patient resulted labs reviewed. Imaging: Reviewed Imaging Report Assessment/Plan Assessment and Plan Assess & Plan/Chief Complaint Cellulitis of bilateral lower extremities Lymphedema Pneumonia Wound care consulted, appreciate assistance CT showed no evidence of peripheral artery disease Adjusting pain regimen Continue Augmentin Plan to discharge home with home health Thursday h/o of DVT AFib Continue Xarelto Continue Metoprolol HTN COPD Continue home meds MAT protocol Obesity Clinically significant, no acute management needs Anemia Labs pending Monitor DVT ppx: Already receiving therapeutic anticoagulation Acute kidney injury, resolved Severe sepsis, resolved Diagnosis/Problems Diagnosis/Problems (1) Lower extremity cellulitis Status: Acute Qualifiers: Laterality: unspecified laterality Qualified Codes: L03.119 - Cellulitis of unspecified part of limb (2) Lymphedema of both lower extremities Status: Acute (3) Pneumonia Status: Acute (4) Paroxysmal A-fib Status: Chronic ACE DIAMOND MD Apr 13, 2021 13:27
[2021-04-13] MEDS: RIVAROXABAN 20 MG TABLET (XARELTO) PO SCH (15:41)
[2021-04-13 16:00] VITALS: BP 187/107
[2021-04-13] MEDS: oxyCODONE ER 15 MG (oxyCONTIN CR) TAB PO SCH (19:58)
[2021-04-13 20:00] VITALS: BP 169/100
[2021-04-13 23:49] VITALS: BP 151/79
[2021-04-14] MEDS: RT-ALBUTEROL/IPRATROPIUM 3 ML (DUONEB) VIAL INH SCH ×4 (02:29→21:04)
[2021-04-14] MEDS ORDERED: RT-ALBUTEROL/IPRATROPIUM 3 ML (DUONEB) VIAL INH PRN (02:45)
[2021-04-14 04:09] VITALS: BP 151/80
[2021-04-14] MEDS: ACETAMINOPHEN 325 MG TABLET PO PRN (04:22)
[2021-04-14 05:54] LABS: BASOPHILS % (AUTO) 0 % (0-10); EOSINOPHILS # (AUTO) 0.4 10^3/uL (0.0-0.3); EOSINOPHILS % (AUTO) 5 % (0-10); HEMATOCRIT 24 % (35-52); LYMPHOCYTES # (AUTO) 1.5 10^3/uL (1.0-4.0); LYMPHOCYTES % (AUTO) 23 % (12-44); MEAN CORPUSCULAR HEMOGLOBIN 27 pg (25-34); MEAN CORPUSCULAR HGB CONC 29 g/dL (32-36); MEAN CORPUSCULAR VOLUME 93 fL (80-99); MEAN PLATELET VOLUME 8.6 fL (9.0-12.2); MONOCYTES # (AUTO) 0.5 10^3/uL (0.0-1.0); MONOCYTES % (AUTO) 8 % (0-12); NEUTROPHILS # (AUTO) 4.1 10^3/uL (1.8-7.8); NEUTROPHILS % (AUTO) 63 % (42-75); PLATELET COUNT 304 10^3/uL (130-400); WHITE BLOOD COUNT 6.6 10^3/uL (4.3-11.0)
[2021-04-14 06:06] LABS: CHLORIDE 108 MMOL/L (98-107); POTASSIUM 3.7 MMOL/L (3.6-5.0); SODIUM 142 MMOL/L (135-145)
[2021-04-14 06:07] LABS: CALCIUM 8.1 MG/DL (8.5-10.1)
[2021-04-14 06:08] LABS: GLUCOSE 140 MG/DL (70-105)
[2021-04-14 06:09] LABS: CARBON DIOXIDE 26 MMOL/L (21-32)
[2021-04-14] MEDS: POTASSIUM CL 10MEQ/50ML IVPB 50 ML IV SCH (06:09)
[2021-04-14] MEDS: KCL 20 MEQ TAB (K-DUR) PO SCH (06:09)
[2021-04-14 06:11] LABS: PHOSPHORUS 2.6 MG/DL (2.3-4.7)
[2021-04-14 06:12] LABS: GFR ESTIMATED > 60
[2021-04-14 06:13] LABS: BUN/CREATININE RATIO 7
[2021-04-14 06:14] LABS: MAGNESIUM 1.6 MG/DL (1.6-2.4)
[2021-04-14] MEDS: MAGNESIUM 1 GM/100 ML IVPB 100 ML IV SCH ×3 (06:40→07:53)
[2021-04-14] MEDS: HYDROmorphone 2 MG/ML VIAL (DILAUDID) IV PRN ×2 (06:44→13:59)
[2021-04-14] MEDS: AUGMENTIN 875 MG TAB (AMOXICILLIN/CLAVULANATE) PO SCH ×2 (07:53→17:22)
[2021-04-14 08:00] VITALS: BP 137/70
[2021-04-14] MEDS: RT-BUDESONIDE NEBS 0.5 MG/2ML (PULMICORT) AMP INH SCH ×2 (08:02→21:04)
[2021-04-14] MEDS: meTOprolol TARTRATE 50 MG (LOPRESSOR) TAB PO SCH ×2 (11:27→19:21)
[2021-04-14] MEDS: LORATADINE (CLARITIN) 10 MG TAB PO SCH (11:27)
[2021-04-14] MEDS: GABAPENTIN 300 MG (NEURONTIN) CAP PO SCH ×2 (11:27→19:22)
[2021-04-14] MEDS: FUROSEMIDE 40 MG/4 ML INJ (LASIX) IVP SCH (11:27)
[2021-04-14] MEDS: A & D OINT 113 GM TUBE TOP SCH (11:28)
[2021-04-14] MEDS: oxyCODONE ER 15 MG (oxyCONTIN CR) TAB PO SCH ×2 (11:28→19:22)
[2021-04-14 11:48] VITALS: BP 139/69
--- NOTE | 2021-04-14 12:21 | Progress Note - Hospitalist ---
Subjective HPI/CC On Admission Date Seen by Provider: Apr 14, 2021 Time Seen by Provider: 10:05 Pt is a 56yoCF known to me from previous admissions who presented to the hospital due to fever. She was seen by her home health nurse who noticed her heart rate was up and she was febrile. She has chronic lower extremity edema and wounds and follows with [facility]. She was found to be septic criteria from cellulitis with soft BPs so was admitted to the ICU. This morning she reports feeling much better and her only complaint is itching and pain in her legs. She denies SOB or cough. She has not had her COVID vaccine. She actually believes she already had COVID as she tested positive for antibodies in [place] after a severe illness in 09/2019. Subjective/Events-last exam She continues to have leg pain. She is having occasional palpitations. She has no other complaints or concerns. Objective Exam Vital Signs Vital Signs Date Time Temp Pulse Resp B/P (MAP) Pulse Ox O2 Delivery O2 Flow Rate FiO2 04/14/21 11:48 36.1 101 20 139/69 (92) 96 Nasal Cannula 4.00 04/10/21 15:08 28 Capillary Refill : Less Than 3 Seconds General Appearance: No Apparent Distress, Obese Respiratory: Lungs Clear, Normal Breath Sounds, No Respiratory Distress Cardiovascular: Regular Rate, Rhythm, No Murmur Gastrointestinal: Normal Bowel Sounds, Non Tender, Soft Extremity: Inflammation, Swelling Neurologic/Psychiatric: Alert, Oriented x3, No Motor/Sensory Deficits, Normal Mood/Affect Skin: Erythema Results/Procedures Lab Laboratory Tests 04/14/21 05:45 Patient resulted labs reviewed. Imaging: Reviewed Imaging Report Assessment/Plan Assessment and Plan Assess & Plan/Chief Complaint Cellulitis of bilateral lower extremities Lymphedema Pneumonia Wound care consulted, appreciate assistance Continue pain regimen Continue Augmentin Plan to discharge home with home health Thursday Wound care appointment scheduled for Thursday h/o of DVT AFib Continue Xarelto Continue Metoprolol Add Cardizem Consult Cardiology HTN COPD Continue home meds MAT protocol Obesity Clinically significant, no acute management needs Anemia Labs pending DVT ppx: Already receiving therapeutic anticoagulation Acute kidney injury, resolved Severe sepsis, resolved Diagnosis/Problems Diagnosis/Problems (1) Lower extremity cellulitis Status: Acute Qualifiers: Laterality: unspecified laterality Qualified Codes: L03.119 - Cellulitis of unspecified part of limb (2) Lymphedema of both lower extremities Status: Acute (3) Pneumonia Status: Acute (4) Paroxysmal A-fib Status: Chronic ACE DIAMOND MD Apr 14, 2021 12:21
[2021-04-14] MEDS ORDERED: dilTIAZem120 MG (CARDIZEM CD) CAP PO ONE (12:30)
[2021-04-14 15:21] VITALS: BP 139/73
[2021-04-14] MEDS: RIVAROXABAN 20 MG TABLET (XARELTO) PO SCH (17:22)
[2021-04-14 19:20] VITALS: BP 128/61
[2021-04-15 00:25] VITALS: BP 131/63
[2021-04-15] MEDS: RT-ALBUTEROL/IPRATROPIUM 3 ML (DUONEB) VIAL INH SCH ×3 (02:47→14:59)
[2021-04-15 05:45] LABS: BASOPHILS % (AUTO) 0 % (0-10); EOSINOPHILS # (AUTO) 0.4 10^3/uL (0.0-0.3); EOSINOPHILS % (AUTO) 5 % (0-10); HEMATOCRIT 25 % (35-52); HEMOGLOBIN 7.3 g/dL (11.5-16.0); LYMPHOCYTES # (AUTO) 1.6 10^3/uL (1.0-4.0); LYMPHOCYTES % (AUTO) 21 % (12-44); MEAN CORPUSCULAR HEMOGLOBIN 27 pg (25-34); MEAN CORPUSCULAR HGB CONC 29 g/dL (32-36); MEAN CORPUSCULAR VOLUME 94 fL (80-99); MEAN PLATELET VOLUME 8.8 fL (9.0-12.2); MONOCYTES # (AUTO) 0.5 10^3/uL (0.0-1.0); MONOCYTES % (AUTO) 7 % (0-12); NEUTROPHILS % (AUTO) 66 % (42-75); PLATELET COUNT 356 10^3/uL (130-400); WHITE BLOOD COUNT 7.6 10^3/uL (4.3-11.0)
[2021-04-15 06:02] LABS: CHLORIDE 104 MMOL/L (98-107); POTASSIUM 3.9 MMOL/L (3.6-5.0); SODIUM 141 MMOL/L (135-145)
[2021-04-15 06:03] LABS: CALCIUM 8.4 MG/DL (8.5-10.1); GLUCOSE 105 MG/DL (70-105)
[2021-04-15 06:05] LABS: CARBON DIOXIDE 27 MMOL/L (21-32)
[2021-04-15 06:07] LABS: GFR ESTIMATED > 60; PHOSPHORUS 3.1 MG/DL (2.3-4.7)
[2021-04-15 06:08] LABS: BUN/CREATININE RATIO 7
[2021-04-15 06:10] LABS: MAGNESIUM 1.6 MG/DL (1.6-2.4)
[2021-04-15] MEDS: POTASSIUM CL 10MEQ/50ML IVPB 50 ML IV SCH (06:13)
[2021-04-15] MEDS: KCL 20 MEQ TAB (K-DUR) PO SCH (06:14)
[2021-04-15] MEDS: MAGNESIUM 1 GM/100 ML IVPB 100 ML IV SCH ×3 (06:17→07:39)
[2021-04-15] MEDS: HYDROmorphone 2 MG/ML VIAL (DILAUDID) IV PRN (06:24)
[2021-04-15] MEDS: AUGMENTIN 875 MG TAB (AMOXICILLIN/CLAVULANATE) PO SCH (07:42)
[2021-04-15 08:00] VITALS: BP 132/65
[2021-04-15] MEDS: GABAPENTIN 300 MG (NEURONTIN) CAP PO SCH (08:25)
[2021-04-15] MEDS: oxyCODONE ER 15 MG (oxyCONTIN CR) TAB PO SCH (08:26)
[2021-04-15] MEDS: meTOprolol TARTRATE 50 MG (LOPRESSOR) TAB PO SCH (08:27)
[2021-04-15] MEDS: FUROSEMIDE 40 MG/4 ML INJ (LASIX) IVP SCH (08:27)
[2021-04-15] MEDS: LORATADINE (CLARITIN) 10 MG TAB PO SCH (08:27)
[2021-04-15] MEDS: A & D OINT 113 GM TUBE TOP SCH (08:32)
[2021-04-15] MEDS: RT-BUDESONIDE NEBS 0.5 MG/2ML (PULMICORT) AMP INH SCH (08:57)
[2021-04-15] MEDS ORDERED: dilTIAZem120 MG (CARDIZEM CD) CAP PO SCH (09:00)
--- NOTE | 2021-04-15 10:58 | D/C HH Face to Face Order ---
D/C Face to Face Orders Instructions for Patient Via [facility], Patient Instructions/FollowUp: Please continue to take your medications as written. Please follow up with your primary care doctor to follow up this hospital stay. Please consider COVID vaccination upon discharge. Physician to follow Patient: Dr Hicks Discharge Diet for Home: Cardiac Diet Patient Data-Allergies,Ht & Wt Patient Allergies: Coded Allergies: No Known Drug Allergies (Unverified , 04/29/19) Height (Feet): 5 Height (Inches): 5.00 Weight (Pounds): 218 Weight (Ounces): 0.0 Home Health Need/Face to Face Date of Face to Face: Apr 15, 2021 Clinical Findings: Generalized weakness and fatigue, Shortness of breath I have seen Pt [id number]: Yes Discharged To: Home Diagnosis/Conditions: leg wounds, venous stasis dermatitis Patient is Homebound due to: Emm[place] fall risk due to instabilty Homebound Status Due to the above stated illness, injury or surgical procedure (medical cond ition or diagnosis) and associated clinical findings, the patient is homebound because of his/her inability to leave home except with aid of a supportive device and/or person AND leaving the home requires a considerable and taxing effort or is medically contraindicated. Pt req the following assistanc: Aid of another person, Walker Home Health Nursing Orders Home Health Services Order: Nursing Services, [employer]-Evaluate & Treat, Physical Therapy-Evaluate & Treat, Wound Care-Eval/Treat Home Health Infusion Therapy Line Start Date: Apr 11, 2021 Therapy Orders Therapy Orders: OT (must have SN or PT order), Physical Therapy Therapy Specific Orders: Eval assistive deivces, Teach enviro modifications/safety, Gait training, Increase strength/endurance, Restore ROM Wound dressing per Dr Bejarano Certify Stmt I certify that this patient is under my care and that I, a nurse practitioner or a physician; a assistant reading teacher working with me, had a face to face encounter that - meets the physician face to face encounter requirements with this patient as dated. BROOKLYN DUNLAP MD Apr 15, 2021 10:57
[2021-04-15] MEDS ORDERED: AMOX1TAB12 PO (11:35)
[2021-04-15] MEDS ORDERED: LORA10TA7 PO (11:35)
[2021-04-15] MEDS ORDERED: OXYC10TA7 PO (11:35)
--- NOTE | 2021-04-15 11:38 | Discharge Summary ---
Diagnosis/Chief Complaint Date of Admission Apr 06, 2021 at 18:37 Date of Discharge Discharge Date: Apr 15, 2021 Admission Diagnosis Severe Sepsis Primary Care García Hicks DO Discharge Diagnosis (1) Lower extremity cellulitis Status: Acute (2) Lymphedema of both lower extremities Status: Acute (3) Pneumonia Status: Acute (4) Paroxysmal A-fib Status: Chronic Discharge Summary Discharge Physical Exam Allergies: Coded Allergies: No Known Drug Allergies (Unverified , 04/29/19) Vitals & I&Os Vital Signs Date Time Temp Pulse Resp B/P (MAP) Pulse Ox O2 Delivery O2 Flow Rate FiO2 04/15/21 08:58 90 Nasal Cannula 4.00 04/15/21 08:00 36.2 105 22 132/65 (87) 04/10/21 15:08 28 Hospital Course Labs (last 24 hrs) Laboratory Tests 04/15/21 05:30: White Blood Count 7.6, Red Blood Count 2.67L, Hemoglobin 7.3L, Hematocrit 25L, Mean Corpuscular Volume 94, Mean Corpuscular Hemoglobin 27, Mean Corpuscular Hemoglobin Concent 29L, Red Cell Distribution Width 19.4H, Platelet Count 356, Mean Platelet Volume 8.8L, Immature Granulocyte % (Auto) 0, Neutrophils (%) (Auto) 66, Lymphocytes (%) (Auto) 21, Monocytes (%) (Auto) 7, Eosinophils (%) (Auto) 5, Basophils (%) (Auto) 0, Neutrophils # (Auto) 5.0, Lymphocytes # (Auto) 1.6, Monocytes # (Auto) 0.5, Eosinophils # (Auto) 0.4H, Basophils # (Auto) 0.0, Immature Granulocyte # (Auto) 0.0, Sodium Level 141, Potassium Level 3.9, Chloride Level 104, Carbon Dioxide Level 27, Anion Gap 10, Blood Urea Nitrogen 6L, Creatinine 0.90, Estimat Glomerular Filtration Rate > 60, BUN/Creatinine Ratio 7, Glucose Level 105, Calcium Level 8.4L, Phosphorus Level 3.1, Magnesium Level 1.6 Microbiology 04/06/21 MRSA Screen - Final, Complete MRSA not isolated 04/06/21 Blood Culture - Final, Complete No growth 04/06/21 Urine Culture - Final, Complete Mixed Bacterial Martha Gram Negative Leon YEAST Patient resulted labs reviewed. Pending Labs Laboratory Tests 04/15/21 05:30: White Blood Count 7.6, Red Blood Count 2.67, Hemoglobin 7.3, Hematocrit 25, Mean Corpuscular Volume 94, Mean Corpuscular Hemoglobin 27, Mean Corpuscular Hemoglobin Concent 29, Red Cell Distribution Width 19.4, Platelet Count 356, Mean Platelet Volume 8.8, Immature Granulocyte % (Auto) 0, Neutrophils (%) (Auto) 66, Lymphocytes (%) (Auto) 21, Monocytes (%) (Auto) 7, Eosinophils (%) (Auto) 5, Basophils (%) (Auto) 0, Neutrophils # (Auto) 5.0, Lymphocytes # (Auto) 1.6, Monocytes # (Auto) 0.5, Eosinophils # (Auto) 0.4, Basophils # (Auto) 0.0, Immature Granulocyte # (Auto) 0.0, Sodium Level 141, Potassium Level 3.9, Chloride Level 104, Carbon Dioxide Level 27, Anion Gap 10, Blood Urea Nitrogen 6, Creatinine 0.90, Estimat Glomerular Filtration Rate > 60, BUN/Creatinine Ratio 7, Glucose Level 105, Calcium Level 8.4, Phosphorus Level 3.1, Magnesium Level 1.6 Imaging: Reviewed Imaging Report Discharge Home Medications: Active Scripts Active Oxycodone HCl 10 Mg Tablet 10 Mg PO Q4H 7 Days Loratadine 10 Mg Tablet 10 Mg PO DAILY Amox Tr-K Clv 875-125 mg Tab (Amoxicillin/Potassium Clav) 1 Each Tablet 875 Mg PO BID WITH MEALS Reported Ondansetron HCl 4 Mg Tablet 4 Mg PO Q6H PRN Xarelto (Rivaroxaban) 20 Mg Tablet 20 Mg PO DAILY Prozac (Fluoxetine HCl) 10 Mg Capsule 10 Mg PO DAILY Breztri Aerosphere Inhaler (Budesonide/Glycopyr/Formoterol) 10.7 Gm Hfa.aer.ad 2 Puff INH BID Albuterol Sulfate 1.25 Mg/3 Ml Vial.neb 3 Ml INH Q6H PRN Ventolin Hfa (Albuterol Sulfate) 1 Puff Puff 2 Puff INH Q4H PRN Cartia Xt (Diltiazem HCl) 120 Mg Cap.er.24h 120 Mg PO DAILY Budesonide 1 Mg/2 Ml Ampul.neb 2 Ml INH Q4- 6H PRN Buprenorphine-Nalox 8-2Mg Film (Buprenorphine HCl/Naloxone HCl) 1 Each Film 1 Each PO BID Furosemide 80 Mg Tablet 80 Mg PO DAILY Lisinopril 10 Mg Tablet 10 Mg PO DAILY PRN Metoprolol Tartrate 100 Mg Tablet 100 Mg PO BID DEPENDING ON REAL TIME READING PATIENT WILL TAKE BETWEEN TO 1 TABLET TWICE DAILY Aspirin 81 Mg Tab.chew 81 Mg PO DAILY Gabapentin 600 Mg Tablet 600 Mg PO TID PRN Instructions to patient/family Please see electronic discharge instructions given to patient. Problem Qualifiers (1) Lower extremity cellulitis: Laterality: unspecified laterality Qualified Codes: L03.119 - Cellulitis of unspecified part of limb BROOKLYN DUNLAP MD Apr 15, 2021 11:38
--- NOTE | 2021-04-15 11:48 | Physical Therapy Progress Note ---
Therapy Progress Note Patient declined PT stating she is up with nursing staff in her room and she doesn't do much more than that. PT to dismiss patient from services at this time with patient reporting she will continue to be up with nursing staff. 1 ref MERVIN PETERSON PT Apr 15, 2021 11:48
[2021-04-15 12:53] VITALS: BP 128/65
--- NOTE | 2021-04-15 14:24 | Physical Therapy Daily Note ---
PT Daily Note-Current Subjective Patient agrees to PT. Plans to go home today. Mental Status Patient Orientation: Normal For Age Attachments: Oxygen Transfers SCALE: Activities may be completed with or without assistive devices. 1-Ngbbrnxhrs-gnzkejc completes the activity by him/herself with no assistance from a helper. 5-Set-up or Clean-up Assistance-helper sets up or cleans up; patient completes activity. Norris assists only prior to or following the activity. 4-Supervision or Touching Assistance-helper provides verbal cues and/or touching/steadying and/or contact guard assistance as patient completes activity. Assistance may be provided throughout the activity or intermittently. 3-Partial/Moderate Assistance-helper does LESS THAN HALF the effort. Norris lifts, holds or supports trunk or limbs, but provides less than half the effort. 2-Substantial/Maximal Assistance-helper does MORE THAN HALF the effort. Norris lifts or holds trunk or limbs and provides more than half the effort. 2-Tgznxhxgm-pbmfev does ALL the effort. Patient does none of the effort to complete the activity. Or, the assistance of 2 or more helpers is required for the patient to complete the activity. If activity was not attempted, code reason: 7-Patient Refused. 9-Not Applicable-not attempted and the patient did not perform the activity before the current illness, exacerbation or injury. 10-Not Attempted due to Environmental Limitations-(lack of equipment, weather restraints, etc.). 88-Not Attempted due to Medical Conditions or Safety Concerns. Lying to Sitting/Side of Bed(Q: 6 Sit to Stand (QC): 5 Weight Bearing Right Lower Extremity: Right Non Weight Bearing Left Lower Extremity: Left Non Weight Bearing Gait Training Does the Patient Walk?: Yes Distance: 100' Walk 10 feet (QC): 5 Walk 50 ft with 2 Turns(QC): 5 Gait Assistive Device: FWW Assessment Patient is modified independent with all gross motor skills. Ambulated in room without difficulty with FWW. Has one at home to use. PT Hand I Cutter Goals Hand I Cutter Goals PT Group Home Goals Time Frame: Apr 20, 2021 Roll Left & Right (QC): 4 Sit to Lying (QC): 4 Lying-Sitting on Side/Bed(QC): 4 Sit to Stand (QC): 4 Chair/Mqr-et-Gcvys Xfer(QC): 4 Toilet Transfer (QC): 4 Does the Patient Walk: Yes Walk 10 feet (QC): 4 Walk 50ft with 2 Turns (QC): 4 PT Plan Treatment/Plan Treatment Plan: Discontinue PT Treatment Plan: Bed Mobility, Education, Functional Activity Lyn, Functional Strength, Gait, Safety, Therapeutic Exercise, Transfers Treatment Duration: Apr 20, 2021 Frequency: 6 times per week Estimated Hrs Per Day: .25 hour per day Patient and/or Family Agrees t: Yes Time/GCodes Time In: 1400 Time Out: 1413 Total Billed Treatment Time: 13 Total Billed Treatment 1 visit FA 13 min MERVIN PETERSON PT Apr 15, 2021 14:24
[2021-04-15 15:10] VITALS: BP 128/65
== END 2021-04-15 15:25 | disposition home health service (06) | DRG 871 ==
LOC: ER 15:46 → EDUNIT# 15:46 → ICU 18:37 → 4TH 04-07 10:51
PROVIDERS: ADMIT Family Medicine; ATTEND Family Medicine
DX: A41.9 Sepsis, unspecified organism (principal); J18.9 Pneumonia, unspecified organism; L03.116 Cellulitis of left lower limb; L03.115 Cellulitis of right lower limb; N17.9 Acute kidney failure, unspecified; J44.0 Chronic obstructive pulmonary disease with (acute) lower respiratory infection; R65.20 Severe sepsis without septic shock; B37.2 Candidiasis of skin and nail; I48.0 Paroxysmal atrial fibrillation; E87.5 Hyperkalemia; I10 Essential (primary) hypertension; I89.0 Lymphedema, not elsewhere classified; G83.21 Monoplegia of upper limb affecting right dominant side; F17.210 Nicotine dependence, cigarettes, uncomplicated; E66.01 Morbid (severe) obesity due to excess calories; Z68.35 Body mass index [BMI] 35.0-35.9, adult; E78.00 Pure hypercholesterolemia, unspecified; K21.9 Gastro-esophageal reflux disease without esophagitis; F31.9 Bipolar disorder, unspecified; F10.10 Alcohol abuse, uncomplicated; F11.10 Opioid abuse, uncomplicated; Z99.81 Dependence on supplemental oxygen; Z86.718 Personal history of other venous thrombosis and embolism; Z86.16 Personal history of COVID-19; Z79.2 Long term (current) use of antibiotics; Z79.82 Long term (current) use of aspirin; Z82.49 Family history of ischemic heart disease and other diseases of the circulatory system
CPT/HCPCS: 36410; 36415; 71045; 76937; 80048; 80053; 81000; 82607; 82728; 82746; 83540; 83550; 83605; 83735; 83880; 84100; 84145; 85007; 85025; 85027; 85610; 85730; 86141; 87040; 87081; 87088; 87636; 93005; 94640; 94760; 96365; 96367

== ENCOUNTER 2021-04-19 21:44 | Inpatient (IN) | payer BC, MEDICAID ==
[~2021-04-19] VITALS: Ht 165.1 cm; Wt 98.9 kg
[~2021-04-19 21:44] MED LIST changes: +ALBU1.25 INH; +AMOX1TAB12 PO; +BUDE10.7 INH; +BUDE1AMP2 INH; +BUPR1FIL19 PO; +DILT120C53 PO; +FLUO10CA29 PO; +FURO80TA3 PO; +LORA10TA7 PO; +ONDA-105 PO; +OXYC10TA7 PO; +RIVA20TA PO
[2021-04-19] MEDS ORDERED: methylPREDNISolone 125 MG (Solu-MEDROL) VIAL IV STA (21:48)
[2021-04-19] MEDS ORDERED: RT-ALBUTEROL SULF 2.5 MG/3 ML PRE-MIX VIAL INH STA (21:48)
--- NOTE | 2021-04-19 21:54 | ED Respiratory ---
General Stated Complaint: SOA/WEAKNESS Source: patient, EMS Exam Limitations: no limitations History of Present Illness Date Seen by Provider: Apr 19, 2021 Time Seen by Provider: 21:38 Initial Comments Patient to the ER by EMS from home with chief complaint of shortness of air weakness. She does go to the hospital on Thursday, 5 days ago for pneumonia. She is not having any nausea vomiting fever or chills. She is having shortness of air. She says usually she lives 2 L by nasal cannula but after the pneumonia she went up to 4 L. She typically lives around 79 to 85%. She has a history of COPD. She does continue to cough some phlegm. She is no longer on antibiotics. She took her Pulmicort and 2 albuterol inhalers and was about to take a third nebulizer when EMS arrived. They said she sounded wheezy so EMS gave her an additional DuoNeb. Her initial oxygen saturations were 42% and went up to 95% the DuoNeb. She is a smoker and takes Xarelto. Allergies and Home Medications Allergies Coded Allergies: No Known Drug Allergies (Unverified , 04/29/19) Home Medications Albuterol Sulfate 1 Puff Puff, 2 PUFF INH Q4H PRN for SHORTNESS OF BREATH, (Reported) Albuterol Sulfate 1.25 Mg/3 Ml Vial.neb, 3 ML INH Q6H PRN for SHORTNESS OF BREATH, (Reported) Amoxicillin/Potassium Clav 1 Each Tablet, 875 MG PO BID WITH MEALS Prescribed by: BROOKLYN CHOPRA on 04/15/21 1135 Aspirin 81 Mg Tab.chew, 81 MG PO DAILY, (Reported) Budesonide 1 Mg/2 Ml Ampul.neb, 2 ML INH Q4- 6H PRN for SHORTNESS OF BREATH, (Reported) Budesonide/Glycopyr/Formoterol 10.7 Gm Hfa.aer.ad, 2 PUFF INH BID, (Reported) Buprenorphine HCl/Naloxone HCl 1 Each Film, 1 EACH PO BID, (Reported) Diltiazem HCl 120 Mg Cap.er.24h, 120 MG PO DAILY, (Reported) Fluoxetine HCl 10 Mg Capsule, 10 MG PO DAILY, (Reported) Furosemide 80 Mg Tablet, 80 MG PO DAILY, (Reported) Gabapentin 600 Mg Tablet, 600 MG PO TID PRN for NERVE PAIN, (Reported) Lisinopril 10 Mg Tablet, 10 MG PO DAILY PRN for BLOOD PRESSURE, (Reported) Loratadine 10 Mg Tablet, 10 MG PO DAILY Prescribed by: BROOKLYN CHOPRA on 04/15/21 1135 Metoprolol Tartrate 100 Mg Tablet, 100 MG PO BID, (Reported) DEPENDING ON REAL TIME READING PATIENT WILL TAKE BETWEEN TO 1 TABLET TWICE DAILY Ondansetron HCl 4 Mg Tablet, 4 MG PO Q6H PRN for NAUSEA/VOMITING-1ST LINE, (Reported) Oxycodone HCl 10 Mg Tablet, 10 MG PO Q4H Prescribed by: BROOKLYN CHOPRA on 04/15/21 1136 Rivaroxaban 20 Mg Tablet, 20 MG PO DAILY, (Reported) Patient Home Medication List Home Medication List Reviewed: Yes Review of Systems Review of Systems Constitutional: No chills, No fever; malaise, weakness EENTM: No ear discharge, No ear pain Respiratory: cough, short of breath, wheezing Cardiovascular: No chest pain; edema; No palpitations Gastrointestinal: No abdominal pain, No diarrhea Genitourinary: No discharge, No dysuria Musculoskeletal: No back pain, No joint pain Skin: see HPI All Other Systems Reviewed Negative Unless Noted: Yes Past Obezrmm-Exuuer-Pjyvyf Hx Patient Social History Tobacco Use?: No Use of E-Cig and/or Vaping dev: No Substance use?: No Alcohol Use?: No Immunizations Up To Date Tetanus Booster (TDap): Unknown Seasonal Allergies Seasonal Allergies: Yes Past Medical History Surgery/Hospitalization HX: PT HAS A COPD HX. IS ON 2L VIA NC AT HOME. ALSO ON XARELTO. 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 Sexually Transmitted Disease: No HIV/AIDS: No Genitourinary: Yes (NO DIALYSIS) Renal Failure, UTI-Chronic Gastrointestinal: Yes Gastroesophageal Reflux Musculoskeletal: Yes (CHRONIC GENERALIZED PAIN ) Endocrine: Yes (HAS BEEN ON INSULIN WHEN SHE HAS HAD STEROIDS-STATES SHE IS NOT DIABETIC) HEENT: No Cancer: No Psychosocial: Yes (OPIATE ABUSE, ALCOHOL ABUSE) Bipolar, Depression Integumentary: Yes (CHRONIC LEG WOUNDS/CELLULITIS) Blood Disorders: No Adverse Reaction/Blood Tranf: No Family Medical History Cerebrovascular accident (CVA) 19 FATHER, Onset:60 years & older FH: testicular cancer G8 BROTHER, Onset:30's - 40 Hypertension 19 FATHER, Onset:Unknown 19 MOTHER, Onset:Unknown G8 BROTHER, Onset:Unknown G8 BROTHER, Onset:Unknown Myocardial infarction 19 FATHER, Onset:40's - 50 Heart Disease, Hypertension SOCIAL HISTORY: -ETOH --ABUSE/REGULAR USE -DRUGS--LONG HISTORY OF OPIATE ABUSE -SMOKES 2 PPD ADDITIONAL PMH: -12/14/2020-TRANSFERRED TO [facility] FOR SEPTIC SHOCK WITH ACUTE RENAL FAILURE DUE TO CELLULITIS OF LEGS. -02/03/21-TRANSFERRED TO [place] FOR SEPSIS WITH ACUTE RENAL FAILURE, ALSO DUE TO CELLULITIS OF LEGS. -ADMITTED AND INTUBATED X 1 MONTH IN SEPTEMBER 2019 FOR BILATERAL PNEUMONIA AND ARDS. HISTORY OF OPIATE ABUSE/ADDICTION--HAS BEEN ON SUBOXONE, BUT STATES SHE CANNOT AFFORD IT AND IS NO LONGER TAKING IT OF 03/11/21 Physical Exam Vital Signs - First Documented 04/19/21 21:44 Temp 36.9 Pulse 111 Resp 24 B/P (MAP) 127/84 (98) Pulse Ox 61 O2 Delivery Nasal Cannula O2 Flow Rate 4.00 Capillary Refill : Height: 5'5.00" Weight: 218lbs. 0.0oz. 98.547388lw; 32.39 BMI Method:Stated General Appearance: moderate distress, other (Chronically ill, obese) Eyes: Bilateral Eye Normal Inspection, Bilateral Eye PERRL, Bilateral Eye EOMI HEENT: PERRL/EOMI, pharynx normal Neck: full range of motion, normal inspection Respiratory: respiratory distress (Severe with oxygen saturations of 81% on room air on arrival), decreased breath sounds, accessory muscle use, wheezing (Expiratory), expiration (Prolonged), other (Able to speak full sentences.) Cardiovascular: normal peripheral pulses, regular rate, rhythm Gastrointestinal: normal bowel sounds, non tender, soft Neurologic/Psychiatric: alert, normal mood/affect, oriented x 3 Skin: normal color, warm/dry Focused Exam Sepsis Stage: Sepsis Possible Source: Pulmonary Lactate Level 04/19/21 21:58: Lactic Acid Level 1.12 Time of Focused Exam: 00:44 Respiratory: No Accessory Muscle Use, Decreased Breath Sounds, Respiratory Distress (mild-mod) Cardiovascular: Regular Rate, Rhythm, Normal Peripheral Pulses (70s), Other (Bilateral pulmonary edema 2+ pitting) Capillary Refill: Less Than 3 Seconds Peripheral Pulses: 2+ Radial Pulses (R), 2+ Radial Pulses (L) Skin: normal color, warm/dry, other (Bilateral lower extremities erythematous) Lactic Acid Level Laboratory Tests Test 04/19/21 21:58 Lactic Acid Level 1.12 MMOL/L (0.50-2.00) Within 3hrs of presentation: Admin fluids (Truncated fluids as she appears to be in heart failure.), Admin ABX, Blood cultures prior to ABX's, Focus exam, Lactate level Procedures/Interventions Date of ETT Placement: Oct 07, 2019 Time of ETT Placement: 010 Progress/Results/Core Measures Suspected Sepsis SIRS Temperature: Pulse: Respiratory Rate: Laboratory Tests 04/19/21 21:58: White Blood Count 9.6 Blood Pressure / Mean: 04/19/21 21:58: Lactic Acid Level 1.12 Laboratory Tests 04/19/21 21:58: Creatinine 2.00H, INR Comment 1.5H, Platelet Count 643H, Total Bilirubin 0.4 Results/Orders Lab Results Laboratory Tests Test 04/19/21 21:48 04/19/21 21:58 04/19/21 22:04 04/19/21 23:32 Range/Units Blood Gas Puncture Site RR Blood Gas Patient Temperature 37 Arterial Blood pH 7.40 7.37-7.43 Arterial Blood Partial Pressure CO2 51 H 35-45 MMHG Arterial Blood Partial Pressure O2 53 L 79-93 MMHG Arterial Blood HCO3 31 H 23-27 MMOL/L Arterial Blood Total CO2 32.1 H 21.0-31.0 MMOL/L Arterial Blood Oxygen Saturation 83 L 94-100 % Arterial Blood Base Excess 5.8 H -2.5-2.5 MMOL/L Jame Test YES-POS Blood Gas Ventilator Setting NO Blood Gas Inspired Oxygen 5L White Blood Count 9.6 4.3-11.0 10^3/uL Red Blood Count 2.92 L 3.80-5.11 10^6/uL Hemoglobin 7.7 L 11.5-16.0 g/dL Hematocrit 28 L 35-52 % Mean Corpuscular Volume 94 80-99 fL Mean Corpuscular Hemoglobin 26 25-34 pg Mean Corpuscular Hemoglobin Concent 28 L 32-36 g/dL Red Cell Distribution Width 19.8 H 10.0-14.5 % Platelet Count 643 H 130-400 10^3/uL Mean Platelet Volume 8.9 L 9.0-12.2 fL Immature Granulocyte % (Auto) 1 % Neutrophils (%) (Auto) 71 42-75 % Lymphocytes (%) (Auto) 20 12-44 % Monocytes (%) (Auto) 7 0-12 % Eosinophils (%) (Auto) 1 0-10 % Basophils (%) (Auto) 1 0-10 % Neutrophils # (Auto) 6.8 1.8-7.8 10^3/uL Lymphocytes # (Auto) 1.9 1.0-4.0 10^3/uL Monocytes # (Auto) 0.6 0.0-1.0 10^3/uL Eosinophils # (Auto) 0.1 0.0-0.3 10^3/uL Basophils # (Auto) 0.1 0.0-0.1 10^3/uL Immature Granulocyte # (Auto) 0.1 0.0-0.1 10^3/uL Percent Immature Platelet Fraction 2.1 0.0-7.6 % Prothrombin Time 18.0 H 12.2-14.7 SEC INR Comment 1.5 H 0.8-1.4 Activated Partial Thromboplast Time 42 H 24-35 SEC D-Dimer 3.66 H 0.00-0.49 UG/ML Sodium Level 143 135-145 MMOL/L Potassium Level 4.4 3.6-5.0 MMOL/L Chloride Level 101 98-107 MMOL/L Carbon Dioxide Level 29 21-32 MMOL/L Anion Gap 13 5-14 MMOL/L Blood Urea Nitrogen 15 7-18 MG/DL Creatinine 2.00 H 0.60-1.30 MG/DL Estimat Glomerular Filtration Rate 26 BUN/Creatinine Ratio 8 Glucose Level 139 H 70-105 MG/DL Lactic Acid Level 1.12 0.50-2.00 MMOL/L Calcium Level 8.2 L 8.5-10.1 MG/DL Corrected Calcium 8.9 8.5-10.1 MG/DL Total Bilirubin 0.4 0.1-1.0 MG/DL Aspartate Amino Transf (AST/SGOT) 31 5-34 U/L Alanine Aminotransferase (ALT/SGPT) 16 0-55 U/L Alkaline Phosphatase 98 40-136 U/L C-Reactive Protein High Sensitivity 3.49 H 0.00-0.50 MG/DL B-Type Natriuretic Peptide 1399.2 H <100.0 PG/ML Total Protein 6.3 L 6.4-8.2 GM/DL Albumin 3.1 L 3.2-4.5 GM/DL Procalcitonin 0.14 H <0.10 NG/ML Influenza Type A (RT-PCR) Not Detected Not Detecte Influenza Type B (RT-PCR) Not Detected Not Detecte SARS-CoV-2 RNA (RT-PCR) Not Detected Not Detecte Urine Color ORANGE Urine Clarity SL CLOUDY Urine pH 5.0 5-9 Urine Specific [place] >=1.030 1.016-1.022 Urine Protein NEGATIVE NEGATIVE Urine Glucose (UA) NEGATIVE NEGATIVE Urine Ketones NEGATIVE NEGATIVE Urine Nitrite NEGATIVE NEGATIVE Urine Bilirubin 1+ H NEGATIVE Urine Urobilinogen 0.2 < = 1.0 MG/DL Urine Leukocyte Esterase NEGATIVE NEGATIVE Urine RBC (Auto) 2+ H NEGATIVE Urine RBC 5-10 H /HPF Urine WBC 2-5 /HPF Urine Squamous Epithelial Cells 2-5 /HPF Urine Crystals NONE /LPF Urine Bacteria FEW H /HPF Urine Casts PRESENT /LPF Urine Hyaline Casts 5-10 H /LPF Urine Mucus NEGATIVE /LPF Urine Yeast FEW H /HPF Urine Culture Indicated CULTURE PENDING Micro Results Microbiology 04/19/21 Blood Culture - Preliminary, Resulted No growth 04/19/21 Blood Culture - Preliminary, Resulted No growth My Orders Orders - WU HUNG Albuterol Pre-Mix Nebs (Rt) (Proventil (04/19/21 21:48) Albuterol/Ipra Inhalation Soln (Duoneb I (04/19/21 22:00) Methylprednisolone Sod Succ (Solu-Medrol (04/19/21 21:48) Chest 1 View, Ap/Pa Only (04/19/21 21:48) Cbc With Automated Diff (04/19/21 21:48) Comprehensive Metabolic Panel (04/19/21 21:48) Blood Culture (04/19/21 21:48) Sputum Culture (04/19/21 21:48) Urinalysis (04/19/21 21:48) Urine Culture (04/19/21 21:48) Protime With Inr (04/19/21 21:48) Partial Thromboplastin Time (04/19/21 21:48) Ed Iv/Invasive Line Start (04/19/21 21:48) Ed Iv/Invasive Line Start (04/19/21 21:48) Vital Signs Adult Sepsis Patie Q15M (04/19/21 21:48) O2 (04/19/21 21:48) Remove Rings In Anticipation O (04/19/21 21:48) Lactic Acid Analyzer (04/19/21 21:48) Ns Iv 1000 Ml (Sodium Chloride 0.9%) (04/19/21 22:00) Cefepime Injection (Maxipime Injection) (04/19/21 22:00) Vancomycin Injection (Vancomycin Injecti (04/19/21 22:00) Vancomycin Injection (Vancomycin Injecti (04/19/21 23:00) Svn Small Volume Nebulizer (04/19/21 21:48) Covid 19 Inhouse Test (04/19/21 21:48) Influenza A And B By Pcr (04/19/21 21:48) Arterial Blood Gas (04/19/21 21:48) BNP (04/19/21 21:48) Fibrin Degradation Products (04/19/21 21:48) Procalcitonin (Pct) (04/19/21 21:48) Hs C Reactive Protein (04/19/21 21:48) Furosemide Injection (Lasix Injection) (04/20/21 00:30) Medications Given in ED Vital Signs/I&O 04/19/21 04/19/21 21:44 22:12 Temp 36.9 Pulse 111 Resp 24 B/P (MAP) 127/84 (98) Pulse Ox 61 88 O2 Delivery Nasal Cannula Nasal Cannula O2 Flow Rate 4.00 5.00 Capillary Refill : Progress Note : Time: 00:20 Progress Note Continue Xarelto. We will continue antibiotics and treat her for heart failure, GIOVANNI with some Lasix. We will try BiPAP overnight. Diagnostic Imaging Diagonstic Imaging: Xray Plain Films/CT/US/NM/MRI: chest Comments [facility], [place], [place] NAME: ZEKE MEDELLIN [facility] REC#: [id number] PT STATUS: ADM IN : 1965 PHYSICIAN: WU HUNG MD ADMIT DATE: 04/20/21/[facility] Signed Date of Exam:04/19/21 CHEST 1 VIEW, AP/PA ONLY EXAMINATION: Chest 1 view HISTORY: Shortness of breath. Weakness. Cough and congestion. COMPARISON: 04/07/2021. FINDINGS: Increased opacities are seen in the left perihilar and basilar regions. The right lung demonstrates improved aeration. No large pleural effusion or pneumothorax. Stable cardiac silhouette. No acute osseous abnormalities. IMPRESSION: 1. Increased opacities in the left perihilar and basilar regions with improved aeration in the right lung. Findings may represent atelectasis, infection, and/or edema. Recommend continued follow-up as indicated. Dictated by: Dictated on workstation # [id number] Dict: 04/20/21 0738 Trans: 04/20/21 0749 [facility] [id number] Interpreted by: ANGELITA PATEL DO Electronically signed by: ANGELITA PATEL DO 04/20/21 0749 Reviewed: Reviewed by Me Departure Communication (Admissions) Time/Spoke to Admitting Phy: 00:30 Discussed the case with Dr. Chopra and she like to continue antibiotics, try the Lasix and she will see the patient in the morning. Cardiac stepdown is okay Impression Primary Impression: Acute kidney injury Additional Impressions: Acute respiratory failure with hypoxemia Heart failure Qualified Codes: I50.9 - Heart failure, unspecified Pneumonia Qualified Codes: J18.9 - Pneumonia, unspecified organism Sepsis Qualified Codes: A41.9 - Sepsis, unspecified organism Disposition: ADMITTED INPATIENT Condition: Stable Admissions Decision to Admit Reason: Admit from ER (General) Decision to Admit/Date: Apr 20, 2021 Time/Decision to Admit Time: 00:25 Departure-Patient Inst. Referrals: BROOKE JOYNER DO (PCP/Family) Primary Care Physician WU HUNG Apr 19, 2021 21:54
[2021-04-19] MEDS ORDERED: VANCOMYCIN INJECTION 1,000 MG in NS (IVPB) 250 ML IV ONE (22:00)
[2021-04-19] MEDS ORDERED: NS IV 1000 ML 1,000 ML IV SCH (22:00)
[2021-04-19] MEDS ORDERED: RT-ALBUTEROL/IPRATROPIUM 3 ML (DUONEB) VIAL INH ONE (22:00)
[2021-04-19] MEDS ORDERED: CEFEPIME INJECTION 1,000 MG in WATER (STERILE) FOR INJECTION 10 ML IV ONE (22:00)
[2021-04-19 22:15] LABS: ABG BASE EXCESS 5.8 MMOL/L (-2.5-2.5); ABG OXYGEN SATURATION 83 % (94-100); ABG PCO2 51 MMHG (35-45); ABG PO2 53 MMHG (79-93); ABG TCO2 32.1 MMOL/L (21.0-31.0); ALLENS TEST YES-POS; INSPIRED O2 5L; PATIENT TEMP 37; VENTILATOR NO
[2021-04-19 22:19] LABS: BASOPHILS # (AUTO) 0.1 10^3/uL (0.0-0.1); BASOPHILS % (AUTO) 1 % (0-10); EOSINOPHILS # (AUTO) 0.1 10^3/uL (0.0-0.3); EOSINOPHILS % (AUTO) 1 % (0-10); HEMATOCRIT 28 % (35-52); HEMOGLOBIN 7.7 g/dL (11.5-16.0); LYMPHOCYTES # (AUTO) 1.9 10^3/uL (1.0-4.0); LYMPHOCYTES % (AUTO) 20 % (12-44); MEAN CORPUSCULAR HEMOGLOBIN 26 pg (25-34); MEAN CORPUSCULAR HGB CONC 28 g/dL (32-36); MEAN CORPUSCULAR VOLUME 94 fL (80-99); MEAN PLATELET VOLUME 8.9 fL (9.0-12.2); MONOCYTES # (AUTO) 0.6 10^3/uL (0.0-1.0); MONOCYTES % (AUTO) 7 % (0-12); NEUTROPHILS # (AUTO) 6.8 10^3/uL (1.8-7.8); NEUTROPHILS % (AUTO) 71 % (42-75); PLATELET COUNT 643 10^3/uL (130-400); WHITE BLOOD COUNT 9.6 10^3/uL (4.3-11.0)
[2021-04-19 22:25] LABS: ALBUMIN 3.1 GM/DL (3.2-4.5); POTASSIUM 4.4 MMOL/L (3.6-5.0)
[2021-04-19 22:26] LABS: CALCIUM 8.2 MG/DL (8.5-10.1)
[2021-04-19 22:28] LABS: FIBRIN DEGRADATION PRODUCTS 3.66 UG/ML (0.00-0.49); INR 1.5 (0.8-1.4); TOTAL PROTEIN 6.3 GM/DL (6.4-8.2)
[2021-04-19 22:29] LABS: BILIRUBIN,TOTAL 0.4 MG/DL (0.1-1.0)
[2021-04-19] MEDS ORDERED: VANCOMYCIN INJECTION 750 MG in NS (IVPB) 250 ML IV ONE (23:00)
[2021-04-19 23:38] LABS: BILIRUBIN,URINE 1+ (NEGATIVE); CLARITY,URINE SL CLOUDY; COLOR,URINE ORANGE; GLUCOSE, URINE (UA) NEGATIVE (NEGATIVE); KETONES,URINE NEGATIVE (NEGATIVE); LEUKOCYTE ESTERASE ,URINE NEGATIVE (NEGATIVE); NITRITE,URINE NEGATIVE (NEGATIVE); PROTEIN,URINE NEGATIVE (NEGATIVE)
[2021-04-19 23:52] LABS: BACTERIA,URINE FEW /HPF
[2021-04-19 23:53] LABS: YEAST,URINE FEW /HPF
[2021-04-20] MEDS ORDERED: FUROSEMIDE 40 MG/4 ML INJ (LASIX) IVP ONE (00:30)
[2021-04-20] MEDS ORDERED: ONDANSETRON 4 MG/2 ML (SDV) Z0FRAN IVP PRN (01:45)
[2021-04-20] MEDS ORDERED: ACETAMINOPHEN 325 MG TABLET PO PRN (01:45)
[2021-04-20 02:13] LABS: BASOPHILS # (AUTO) 0.1 10^3/uL (0.0-0.1); BASOPHILS % (AUTO) 1 % (0-10); EOSINOPHILS % (AUTO) 0 % (0-10); HEMATOCRIT 28 % (35-52); HEMOGLOBIN 7.7 g/dL (11.5-16.0); LYMPHOCYTES # (AUTO) 0.6 10^3/uL (1.0-4.0); LYMPHOCYTES % (AUTO) 5 % (12-44); MEAN CORPUSCULAR HEMOGLOBIN 27 pg (25-34); MEAN CORPUSCULAR HGB CONC 28 g/dL (32-36); MEAN CORPUSCULAR VOLUME 95 fL (80-99); MEAN PLATELET VOLUME 9.1 fL (9.0-12.2); MONOCYTES # (AUTO) 0.1 10^3/uL (0.0-1.0); MONOCYTES % (AUTO) 1 % (0-12); NEUTROPHILS # (AUTO) 10.5 10^3/uL (1.8-7.8); NEUTROPHILS % (AUTO) 92 % (42-75); PLATELET COUNT 518 10^3/uL (130-400); WHITE BLOOD COUNT 11.4 10^3/uL (4.3-11.0)
[2021-04-20 02:26] LABS: POTASSIUM 4.1 MMOL/L (3.6-5.0)
[2021-04-20 02:27] LABS: CALCIUM 7.9 MG/DL (8.5-10.1)
[2021-04-20] MEDS ORDERED: RT-ALBUTEROL/IPRATROPIUM 3 ML (DUONEB) VIAL INH PRN (02:30)
[2021-04-20 02:31] LABS: CREATININE SERUM 1.83 MG/DL (0.60-1.30)
[2021-04-20 02:32] LABS: BAND NEUTROPHILS 2 %; EOSINOPHILS % (MANUAL) 1 %; HYPOCHROMASIA SLIGHT; LYMPHOCYTES % (MANUAL) 3 %; MICROCYTOSIS SLIGHT; NEUTROPHILS % (MANUAL) 94 %
[2021-04-20] MEDS: RT-ALBUTEROL/IPRATROPIUM 3 ML (DUONEB) VIAL INH SCH ×5 (07:05→21:39)
--- NOTE | 2021-04-20 07:43 | Diagnostic Imaging Report ---
EXAMINATION: Chest 1 view HISTORY: Shortness of breath. Weakness. Cough and congestion. COMPARISON: 04/07/2021. FINDINGS: Increased opacities are seen in the left perihilar and basilar regions. The right lung demonstrates improved aeration. No large pleural effusion or pneumothorax. Stable cardiac silhouette. No acute osseous abnormalities. IMPRESSION: 1. Increased opacities in the left perihilar and basilar regions with improved aeration in the right lung. Findings may represent atelectasis, infection, and/or edema. Recommend continued follow-up as indicated. Dictated by: Dictated on workstation # [id number]
[2021-04-20] MEDS: CEFEPIME 1,000 MG/SWFI 10 ML IV PUSH IV SCH ×6 (08:21→23:35)
[2021-04-20] MEDS: FUROSEMIDE 40 MG/4 ML INJ (LASIX) IVP SCH (08:21)
--- NOTE | 2021-04-20 11:17 | History & Physical-Hospitalist ---
History of Present Illness HPI/Chief Complaint Pt is a 56yoCF known to me from recent admission who presented to the ER due to SOB and weakness. She was discharged from the hospital on 04/15 and had been doing well until yesterday when she started to feel weak. She was unable to get up and ambulate to the bathroom like normal. She called her home health agency to hopefully prevent coming to the hospital but they advised evaluation in the ER. She was found to be hypoxic and was placed on BiPAP and did well. Labs were consistent with heart failure and she was admitted for further evaluation. This morning she is on nasal cannula and reports feeling much better. Source: patient Date Seen 04/20/21 Time Seen by a Provider: 09:30 Attending Physician Brooklyn Chopra MD PCP García Hicks DO Referring Physician Date of Admission Apr 20, 2021 at 00:40 Home Medications & Allergies Home Medications Reviewed patient Home Medication Reconciliation performed by pharmacy medication reconciliations ophthalmology technician and/or nursing. Patients Allergies have been reviewed. Allergies Allergies Coded Allergies No Known Drug Allergies (Unverified04/29/19) Past Zrewbgw-Proclm-Fpgjzr Hx Patient Social History Tobacco Use?: Yes Tobacco type used: Cigarettes Smoking Status: Current Everyday Smoker Smokeless Tobacco Frequency: Never a User Use of E-Cig and/or Vaping dev: No Substance use?: No Alcohol Use?: No Additional Alcohol Comments: DENIES ALCOHOL USE Pt feels they are or have been: No Immunizations Up To Date Date of Influenza Vaccine: Jul 11, 2020 First/Initial COVID19 Vaccinat: N/A Second COVID19 Vaccination Reinier: N/A Tetanus Booster (TDap): Unknown Seasonal Allergies Seasonal Allergies: Yes Current Status status: No status: No Advance Directives: No Communicates: Verbally Primary Language: Iranian Preferred Spoken Language: Iranian Is interpretation needed?: No Implanted or Applied Medical D: None Past Medical History Surgeries: Hysterectomy Pneumonia, Chronic Bronchitis, COPD Atrial Fibrillation, Deep Vein Thrombosis, High Cholesterol, Hypertension Paralysis 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 Sexually Transmitted Disease: No HIV/AIDS: No Renal Failure, UTI-Chronic Gastroesophageal Reflux Bipolar, Depression Blood Disorders: No Adverse Reaction/Blood Tranf: No wound/ edema Family Medical History Reviewed Nursing Family Hx Cerebrovascular accident (CVA) 19 FATHER, Onset:60 years & older FH: testicular cancer G8 BROTHER, Onset:30's - 40 Hypertension 19 FATHER, Onset:Unknown 19 MOTHER, Onset:Unknown G8 BROTHER, Onset:Unknown G8 BROTHER, Onset:Unknown Myocardial infarction 19 FATHER, Onset:40's - 50 Heart Disease, Hypertension SOCIAL HISTORY: -ETOH --ABUSE/REGULAR USE -DRUGS--LONG HISTORY OF OPIATE ABUSE -SMOKES 2 PPD ADDITIONAL PMH: -12/14/2020-TRANSFERRED TO [facility] FOR SEPTIC SHOCK WITH ACUTE RENAL FAILURE DUE TO CELLULITIS OF LEGS. -02/03/21-TRANSFERRED TO [place] FOR SEPSIS WITH ACUTE RENAL FAILURE, ALSO DUE TO CELLULITIS OF LEGS. -ADMITTED AND INTUBATED X 1 MONTH IN SEPTEMBER 2019 FOR BILATERAL PNEUMONIA AND ARDS. HISTORY OF OPIATE ABUSE/ADDICTION--HAS BEEN ON SUBOXONE, BUT STATES SHE CANNOT AFFORD IT AND IS NO LONGER TAKING IT OF 03/11/21 Review of Systems Constitutional: No chills, No fever; weakness EENTM: no symptoms reported Respiratory: cough, dyspnea on exertion; No phlegm; short of breath Cardiovascular: No chest pain, No palpitations Gastrointestinal: no symptoms reported Genitourinary: no symptoms reported Musculoskeletal: muscle weakness Skin: dryness, rash Psychiatric/Neurological: No Symptoms Reported Physical Exam Physical Exam Vital Signs Vital Signs - First Documented 04/19/21 04/20/21 21:44 01:52 Temp 36.9 Pulse 111 Resp 24 B/P (MAP) 127/84 (98) Pulse Ox 61 O2 Delivery Nasal Cannula O2 Flow Rate 4.00 FiO2 40 Capillary Refill : Less Than 3 Seconds Height, Weight, BMI Height: 5'5.00" Weight: 218lbs. 0.0oz. 98.145434aw; 33.12 BMI Method:Stated General Appearance: No Apparent Distress, Chronically ill, Obese HEENT: PERRL/EOMI, Moist Mucous Membranes; No Scleral Icterus (L), No Scleral Icterus (R) Neck: Normal Inspection, Supple Respiratory: No Accessory Muscle Use; No Crackles; Decreased Breath Sounds, Other (on 4lpm NC) Cardiovascular: Regular Rate, Rhythm, No Murmur Gastrointestinal: Normal Bowel Sounds, Non Tender, Soft Extremity: Normal Capillary Refill, No Calf Tenderness, No Pedal Edema Neurologic/Psychiatric: Alert, Oriented x3, Normal Mood/Affect Skin: Normal Color, Warm/Dry Results Results/Procedures Labs Laboratory Tests 04/19/21 21:58 04/20/21 02:05 Patient resulted labs reviewed. Imaging: Reviewed Imaging Report Imaging [facility], [place] NAME: ZEKE MEDELLIN [facility] REC#: [id number] PT STATUS: ADM IN : 1965 PHYSICIAN: WU HUNG MD ADMIT DATE: 04/20/21/[facility] Signed Date of Exam:04/19/21 CHEST 1 VIEW, AP/PA ONLY EXAMINATION: Chest 1 view HISTORY: Shortness of breath. Weakness. Cough and congestion. COMPARISON: 04/07/2021. FINDINGS: Increased opacities are seen in the left perihilar and basilar regions. The right lung demonstrates improved aeration. No large pleural effusion or pneumothorax. Stable cardiac silhouette. No acute osseous abnormalities. IMPRESSION: 1. Increased opacities in the left perihilar and basilar regions with improved aeration in the right lung. Findings may represent atelectasis, infection, and/or edema. Recommend continued follow-up as indicated. Dictated by: Dictated on workstation # [id number] Dict: 04/20/21 0738 Trans: 04/20/21 0749 [facility] [id number] Interpreted by: ANGELITA PATEL DO Electronically signed by: ANGELITA PATEL DO 04/20/21 0749 Assessment/Plan Admission Diagnosis Acute hypoxic respiratory failure Admission Status: Inpatient Order (span 2 midnights) Reason for Inpatient Admission: see below Assessment and Plan Acute hypoxic respiratory failure Likely decompensated heart failure Continue on oxygen supplementation, now off BiPAP BNp elevated from 13 just 2 weeks ago to ~1400 Continue Lasix Continue IV abx but will check procal tomorrow and likely DC if remains essentially negative Cardiology consuulted, appreciate recs Echo ordered GIOVANNI Baseline creatinine closer to 1 Improved today with diuresis MOnitor I/O HOld lisinopril and potassium h/o of DVT AFib Continue Xarelto Regular rate Monitor on telemetry HTN COPD Obesity Continue home meds when able, I resumed what I could based off fill history DVT ppx: Xarelto Diagnosis/Problems Diagnosis/Problems (1) Acute respiratory failure with hypoxemia Status: Acute (2) Acute kidney injury Status: Acute (3) Heart failure Status: Acute Qualifiers: Heart failure type: unspecified Heart failure chronicity: acute Qualified Codes: I50.9 - Heart failure, unspecified (4) Lymphedema of both lower extremities Status: Acute (5) Paroxysmal A-fib Status: Chronic (6) HTN (hypertension) Status: Chronic (7) Debility (8) Very heavy cigarette smoker (40 or more per day) Status: Acute (9) Venous stasis dermatitis of both lower extremities Status: Acute BROOKLYN CHOPRA MD Apr 20, 2021 11:17
--- NOTE | 2021-04-20 11:20 | Physical Therapy Evaluation ---
PT Evaluation-General Medical Diagnosis Admission Date Apr 20, 2021 at 00:40 Medical Diagnosis: GIOVANNI, Acute resp, failure, pneumonia Onset Date: Apr 19, 2021 Therapy Diagnosis Therapy Diagnosis: Weakness, SOB Height/Weight Height (Feet): 5 Height (Inches): 5.00 Weight (Pounds): 218 Weight (Ounces): 0.0 Precautions Precautions/Isolations: Fall Prevention, Standard Precautions Weight Bear Status Full Weight Bearing Full Weight Bearing Referral Physician: Nav Reason for Referral: Evaluation/Treatment Medical History Pertinent Medical History: Atrial Fib, Alcoholism, COPD, GERD, Heart Failure, HTN, Smoking Current History Pt presents to ED via EMS secondary to SOB, and weakness. Pt DC from hospital 04/15 following stay with treatment for pneumonia. Social History Home: Single Level Current Living Status: Alone Entry Into Home: Stairs With Railing PT Steps Into Home: 2 Prior Prior Level of Function SCALE: Activities may be completed with or without assistive devices. 9-Srgvipkpcg-qgjcaxu completes the activity by him/herself with no assistance from a helper. 5-Set-up or Clean-up Assistance-helper sets up or cleans up; patient completes activity. [place] assists only prior to or following the activity. 4-Supervision or Touching Assistance-helper provides verbal cues and/or touching/steadying and/or contact guard assistance as patient completes activity. Assistance may be provided throughout the activity or intermittently. 3-Partial/Moderate Assistance-helper does LESS THAN HALF the effort. [place] lifts, holds or supports trunk or limbs, but provides less than half the effort. 2-Substantial/Maximal Assistance-helper does MORE THAN HALF the effort. [place] lifts or holds trunk or limbs and provides more than half the effort. 8-Qancjjtcu-vszjhm does ALL the effort. Patient does none of the effort to complete the activity. Or, the assistance of 2 or more helpers is required for the patient to complete the activity. If activity was not attempted, code reason: 7-Patient Refused. 9-Not Applicable-not attempted and the patient did not perform the activity before the current illness, exacerbation or injury. 10-Not Attempted due to Environmental Limitations-(lack of equipment, weather restraints, etc.). 88-Not Attempted due to Medical Conditions or Safety Concerns. Bed Mobility: 6 Transfers (B,C,W/C): 6 Gait: 6 Stairs: 6 Prior Devices Use: Other-see list below (SPC) PT Evaluation-Current Subjective Pt presents supine in bed, agreeable to PT evaluation. She denies any pain this time. Pt/Family Goals Following session, pt returned to supine in bed. Call light, tray and phone within reach. All needs met this time. Objective Patient Orientation: Person, Place, Situation Attachments: Oxygen (4L), Osorio Catheter (purewic) ROM/Strength ROM Lower Extremities WFL Strength Lower Extremities grossly 3+/5 with functional mobility Integumentary/Posture Integumentary refer to nursing notes. Does have sores, on bilateral feet/ankles Neuromuscular (Tone, Coordination, Reflexes) grossly intact Sensory Vision: Functional Hearing: Functional Sensation Right Lower Extremit: Intact Sensation Left Lower Extremity: Intact Transfers Roll Left to Right (QC): 5 Sit to Lying (QC): 3 Lying to Sitting/Side of Bed(Q: 3 Sit to Stand (QC): 4 Pt requiring min-mod A with bed mobility to life BLE into bed. with sit to stand pt SBA/CGA, able to take steps towards head of bed with FWW and SBA/CGA. Gait Does the Patient Walk?: Yes Mode of Locomotion: Walk Anticipated Mode of Locomotion: Walk Gait Assistive Device: FWW Balance Sitting Static: Fair Sitting Dynamic: Fair Standing Static: Fair Standing Dynamic: Fair Assessment/Needs Pt has decreased activity tolerance, strength, and functional mobility due to recent hospital stay and acute illness. Pt is at increased risk of falls, and would benefit from skilled PT while in hospital to address decreased functional mobility and increase activity tolerance. Rehab Potential: Good PT Short Term Goals Short Term Goals Time Frame: May 11, 2021 Sit to lyin Lying to sitting on side of be: 6 Sit to stand: 6 Chair/qua-dv-rxrid transfer: 6 Walk 10 feet: 6 Walk 50 feet with two turns: 6 Walk 150 feet: 6 PT Plan Problem List Problem List: Activity Tolerance, Functional Strength, Safety, Balance, Gait, Transfer, Bed Mobility, ROM Treatment/Plan Treatment Plan: Continue Plan of Care Treatment Plan: Bed Mobility, Education, Functional Activity Lyn, Functional Strength, Gait, Safety, Therapeutic Exercise, Transfers Treatment Duration: May 11, 2021 Frequency: 6 times per week Estimated Hrs Per Day: .25 hour per day Patient and/or Family Agrees t: Yes Time/GCodes Time In: 1017 Time Out: 1030 Total Billed Treatment 1 visit [facility] (20') CODY HOGAN PT Apr 20, 2021 11:20
[2021-04-20] MEDS ORDERED: ASPIRIN E.C. 325 MG (ECOTRIN) TABLET PO ONE (11:30)
--- NOTE | 2021-04-20 12:16 | Occupational Therapy Eval ---
OT Evaluation-General/PLF Medical Diagnosis Admission Date Apr 20, 2021 at 00:40 Medical Diagnosis: GIOVANNI, Acute resp, failure, pneumonia Onset Date: Apr 19, 2021 Therapy Diagnosis Therapy Diagnosis: Weakness, Decreased ADL skills Height/Weight Height (Feet): 5 Height (Inches): 5.00 Weight (Pounds): 218 Weight (Ounces): 0.0 Precautions Precautions/Isolations: Fall Prevention, Standard Precautions Weight Bear Status Weight Bearing Restriction: Weight Bearing/Tolerated Referral Physician: Nav Referral Reason: Activity Tolerance, Self Care, Evaluation/Treatment, Strengthening/ROM Medical History Pertinent Medical History: Atrial Fib, Alcoholism, COPD, GERD, Heart Failure, HTN, Smoking Additional Medical History Lengthy hospitalization in 2019 requiring ventilator for approximately 1 month due to respiratory failure. Current History Ongoing pneumonia and resp failure. Reviewed History: Yes Social History Home: Single Level Current Living Status: Alone Entry Into Home: Stairs With Railing Steps Into Home: 2 ADL-Prior Level of Function SCALE: Activities may be completed with or without assistive devices. 5-Ppwxrbbxhw-nzjzrpr completes the activity by him/herself with no assistance from a helper. 5-Set-up or Clean-up Assistance-helper sets up or cleans up; patient completes activity. [place] assists only prior to or following the activity. 4-Supervision or Touching Assistance-helper provides verbal cues and/or touching/steadying and/or contact guard assistance as patient completes activity. Assistance may be provided throughout the activity or intermittently. 3-Partial/Moderate Assistance-helper does LESS THAN HALF the effort. [place] lifts, holds or supports trunk or limbs, but provides less than half the effort. 2-Substantial/Maximal Assistance-helper does MORE THAN HALF the effort. [place] lifts or holds trunk or limbs and provides more than half the effort. 9-Uxvutauww-larood does ALL the effort. Patient does none of the effort to complete the activity. Or, the assistance of 2 or more helpers is required for the patient to complete the activity. If activity was not attempted, code reason: 7-Patient Refused. 9-Not Applicable-not attempted and the patient did not perform the activity befo re the current illness, exacerbation or injury. 10-Not Attempted due to Environmental Limitations-(lack of equipment, weather re straints, etc.). 88-Not Attempted due to Medical Conditions or Safety Concerns. ADL PLOF Comments Pt. states that her daughter assists her if needed. Otherwise, she is independent with daily skills. Self Care: Needed Some Help Functional Cognition: Independent DME/Equipment Comments Walker OT Current Status Subjective Pt. reports that her bilateral LE are uncomfortable, but does not state pain level. Mental Status/Objective Patient Orientation: Person, Place, Time, Situation Attachments: IV, Oxygen, Telemetry ADL-Treatment On/Off Footwear (QC): 2 Toileting Hygiene (QC): 2 Other Treatments Pt. seen for co-treat with PT due to need of skilled assistance x 2 from fatigue and weakness. Pt. requires min assist for supine-sit. Pt. sat EOB with good balance but unable to don slipper socks with OT encouragement. Max assist for this task. Stood with SBA at bed side and with walker. Able to stand approximately 2 minutes. Sat to rest and stood again with SBA. Transferred back sit-supine with mod assist, as pt. awaiting testing. On needs met. Pt. states that she would like to gain strength for continued functional return home. Education OT Patient Education: Correct positioning, Modified ADL techniques, Progress toward Goal/Update tx plan, Purpose of tx/functional activities, Reviewed precautions, Rehab process, Transfer techniques Teaching Recipient: Patient Teaching Methods: Demonstration, Discussion Response to Teaching: Verbalize Understanding, Return Demonstration OT Short Term Goals Short Term Goals Time Frame: Apr 27, 2021 Eatin Oral hygiene: 5 Toileting hygiene: 4 Upper body dressin Lower body dressin Putting on/taking off footwear: 3 OT Currency Counter Goals Penitentiary Goals Time Frame: May 04, 2021 Eating (QC): 6 Oral Hygiene (QC): 5 Toileting Hygiene (QC): 6 Shower/Bathe Self (QC): 4 Upper Body Dressing (QC): 5 Lower Body Dressing (QC): 4 On/Off Footwear (QC): 4 Additional Goals: 1-Demonstrate ADL Tasks, 2-Verbalize Understanding, 3- ImproveStrength/Lyn 1=Demonstrate adherence to instructed precautions during ADL tasks. 2=Patient will verbalize/demonstrate understanding of assistive devices/modifications for ADL. 3=Patient will improve strength/tolerance for activity to enable patient to perform ADL's. OT Education/Plan Problem List/Assessment Assessment: Decreased Activ Tolerance, Decreased UE Strength, Dependent Transfers, Impaired Bed Mobility, Impaired Coordination, Impaired Funct Balance, Impaired I ADL's, Impaired Self-Care Skills Discharge Recommendations Plan/Recommendations: Continue POC Therapy Discharge Recommendati: Post Acute OT Treatment Plan/Plan of Care Treatment,Training & Education: Yes Patient would benefit from OT for education, treatment and training to promote independence in ADL's, mobility, safety and/or upper extremity function for ADL's. Plan of Care: ADL Retraining, Functional Mobility, UE Funct Exercise/Act Treatment Duration: May 04, 2021 Frequency: 5 times per week Estimated Hrs Per Day: .25 hour per day Agreement: Yes Rehab Potential: Fair Time/GCodes Start Time: 10:20 Stop Time: 10:35 Total Time Billed (hr/min): 15 Billed Treatment Time 1, EVM, Co-treat with PT- Please see above note. YURI JOHNSON OT Apr 20, 2021 12:16
--- NOTE | 2021-04-20 12:49 | Diagnostic Imaging Report ---
EXAMINATION: Chest 1 view HISTORY: Hypoxia. COMPARISON: Chest radiograph on 04/19/2021. FINDINGS: The lung volumes are normal. No focal consolidation is seen. There is blunting of the bilateral costophrenic angles. No large pleural effusion or pneumothorax is seen. The cardiomediastinal silhouette is prominent. No acute osseous abnormality is seen. IMPRESSION: 1. Cardiomegaly. No overt pulmonary edema. 2. Blunting of the bilateral costophrenic angles which may represent scarring versus small pleural effusions. Dictated by: Dictated on workstation # [id number]
--- NOTE | 2021-04-20 14:44 | Consultation-Cardiology ---
HPI-Cardiology Cardiology Consultation: Date of Consultation 04/20/21 Date of Admission Attending Physician Brooklyn Chopra MD Admitting Physician García Hicks DO Consulting Physician MARYCRUZ WEEKS JR, MD HPI: Time Seen by a Provider: 14:39 Chief Complaint: Reason for consultation: Heart failure. Had the pleasure of seeing Helene in the cardiac stepdown unit this afternoon. She normally follows with one of my partners, Dr. Aggarwal. She has a history of chronic heart failure with preserved ejection fraction, paroxysmal atrial fibrillation, hypertension, chronic respiratory failure with hypoxia, stage III- IV chronic kidney disease, chronic obstructive pulmonary disease, previous deep venous thrombosis of the upper and lower extremities, chronic debility, and smoking among several other issues. She had just been here in the hospital and discharged a few days ago. She states for the first few days when she was home her breathing had felt to be about baseline. However, over the past few days, her dyspnea on exertion and lower extremity edema have increased. She also started to have erythema of both legs with some focal areas of excoriation and hemorrhaging. Because of the worsening shortness of breath and edema, she came back to the emergency room. She was felt to be in heart failure with decompensated respiratory status and was admitted to the hospital. She has been given 1 dose of IV Lasix in the emergency room last evening and her breathing is starting to improve. She denies chest discomfort, paroxysmal nocturnal dyspnea, orthopnea, palpitations, lightheadedness, or syncope. Despite her severe lung disease, she continues to smoke cigarettes. She knows she needs to quit. Certain portions of this document may have been dictated utilizing voice recognition technology. Inherent to this technology, typographical and gramma tical errors may exist. As much as I am diligent to identify and correct these mistakes, some errors may remain in the document. Review of Systems-Cardiology Review of Systems Other comments Review of 10 organ systems is as per the history of present illness, otherwise negative. All Other Systems Reviewed Negative Unless Noted: Yes [id number] Hx Patient Social History Smoking Status: Current Everyday Smoker 2nd Hand Smoke Exposure: Yes Have you traveled recently?: No Alcohol Use?: No Pt feels they are or have been: No Tobacco type used: Cigarettes Immunizations Up To Date Tetanus Booster (TDap): Unknown Date of Influenza Vaccine: Jul 11, 2020 Past Medical History PMH As described under Assessment. Family Medical History Family Medical History: Reproted h/o father had an OR, CVA and HTN. Mother with h/o HTN. Family History: Cerebrovascular accident (CVA) 19 FATHER, Onset:60 years & older FH: testicular cancer G8 BROTHER, Onset:30's - 40 Hypertension 19 FATHER, Onset:Unknown 19 MOTHER, Onset:Unknown G8 BROTHER, Onset:Unknown G8 BROTHER, Onset:Unknown Myocardial infarction 19 FATHER, Onset:40's - 50 Allergies and Home Medications Allergies Coded Allergies: No Known Drug Allergies (Unverified , 04/29/19) Home Medications Albuterol Sulfate 1 Puff Puff, 2 PUFF INH Q4H PRN for SHORTNESS OF BREATH, (Reported) Albuterol Sulfate 1.25 Mg/3 Ml Vial.neb, 3 ML INH Q6H PRN for SHORTNESS OF BREATH, (Reported) Amoxicillin/Potassium Clav 1 Each Tablet, 875 MG PO BID WITH MEALS Prescribed by: BROOKLYN CHOPRA on 04/15/21 1135 Aspirin 81 Mg Tab.chew, 81 MG PO DAILY, (Reported) Budesonide 1 Mg/2 Ml Ampul.neb, 2 ML INH Q4- 6H PRN for SHORTNESS OF BREATH, (Reported) Budesonide/Glycopyr/Formoterol 10.7 Gm Hfa.aer.ad, 2 PUFF INH BID, (Reported) Buprenorphine HCl/Naloxone HCl 1 Each Film, 1 EACH PO BID, (Reported) Diltiazem HCl 120 Mg Cap.er.24h, 120 MG PO DAILY, (Reported) Fluoxetine HCl 10 Mg Capsule, 10 MG PO DAILY, (Reported) Furosemide 80 Mg Tablet, 80 MG PO DAILY, (Reported) Gabapentin 600 Mg Tablet, 600 MG PO TID PRN for NERVE PAIN, (Reported) Lisinopril 10 Mg Tablet, 10 MG PO DAILY PRN for BLOOD PRESSURE, (Reported) Loratadine 10 Mg Tablet, 10 MG PO DAILY Prescribed by: BROOKLYN CHOPRA on 04/15/21 1135 Metoprolol Tartrate 100 Mg Tablet, 100 MG PO BID, (Reported) DEPENDING ON REAL TIME READING PATIENT WILL TAKE BETWEEN TO 1 TABLET TWICE DAILY Ondansetron HCl 4 Mg Tablet, 4 MG PO Q6H PRN for NAUSEA/VOMITING-1ST LINE, (Reported) Oxycodone HCl 10 Mg Tablet, 10 MG PO Q4H Prescribed by: BROOKLYN CHOPRA on 04/15/21 1136 Rivaroxaban 20 Mg Tablet, 20 MG PO DAILY, (Reported) Patient Home Medication List Home Medication List Reviewed: Yes Exam Vital Signs Vital Signs Date Time Temp Pulse Resp B/P (MAP) Pulse Ox O2 Delivery O2 Flow Rate FiO2 04/20/21 14:22 91 Nasal Cannula 4.00 04/20/21 13:00 106 04/20/21 11:15 36.4 20 132/70 (90) 04/20/21 05:52 40 Physical Exam General: Alert. No acute distress. Well nourished and appears older than her stated age. Eye: Extraocular movements are intact. Conjunctivae are clear. There are no xanthelasma. HENT: Normocephalic. Atraumatic. Carotid pulsations 2/2 without bruits. Neck: Jugular venous pressure does not appear elevated. No thyromegaly appreciated. Respiratory: LungsHave decreased breath sounds with some scattered wheezes. No crackles appreciated. Respirations are non-labored. Breath sounds are equal. Symmetrical chest wall expansion. Cardiovascular: Normal rate. Regular rhythm. No murmur. No gallop. Point of maximal impulse is not appear displaced. Good pulses equal in all extremities. 4+ bilateral pretibial edema with diffuse erythema. Gastrointestinal: Soft. Normal bowel sounds. Skin: Skin turgor is normal. There is no pallor. Musculoskeletal: No kyphosis or scoliosis appreciated. Neurologic: Alert and oriented to person, place, time. Cranial nerves 3-12 appear grossly intact. The patient has good motor tone strength in the upper and lower extremities bilaterally. Psychiatric: Cooperative. Appropriate mood & affect. Labs Laboratory Tests Test 04/19/21 21:48 04/19/21 21:58 04/19/21 22:04 04/19/21 23:32 Range/Units Blood Gas Puncture Site RR Blood Gas Patient Temperature 37 Arterial Blood pH 7.40 7.37-7.43 Arterial Blood Partial Pressure CO2 51 H 35-45 MMHG Arterial Blood Partial Pressure O2 53 L 79-93 MMHG Arterial Blood HCO3 31 H 23-27 MMOL/L Arterial Blood Total CO2 32.1 H 21.0-31.0 MMOL/L Arterial Blood Oxygen Saturation 83 L 94-100 % Arterial Blood Base Excess 5.8 H -2.5-2.5 MMOL/L Jame Test YES-POS Blood Gas Ventilator Setting NO Blood Gas Inspired Oxygen 5L White Blood Count 9.6 4.3-11.0 10^3/uL Red Blood Count 2.92 L 3.80-5.11 10^6/uL Hemoglobin 7.7 L 11.5-16.0 g/dL Hematocrit 28 L 35-52 % Mean Corpuscular Volume 94 80-99 fL Mean Corpuscular Hemoglobin 26 25-34 pg Mean Corpuscular Hemoglobin Concent 28 L 32-36 g/dL Red Cell Distribution Width 19.8 H 10.0-14.5 % Platelet Count 643 H 130-400 10^3/uL Mean Platelet Volume 8.9 L 9.0-12.2 fL Immature Granulocyte % (Auto) 1 % Neutrophils (%) (Auto) 71 42-75 % Lymphocytes (%) (Auto) 20 12-44 % Monocytes (%) (Auto) 7 0-12 % Eosinophils (%) (Auto) 1 0-10 % Basophils (%) (Auto) 1 0-10 % Neutrophils # (Auto) 6.8 1.8-7.8 10^3/uL Lymphocytes # (Auto) 1.9 1.0-4.0 10^3/uL Monocytes # (Auto) 0.6 0.0-1.0 10^3/uL Eosinophils # (Auto) 0.1 0.0-0.3 10^3/uL Basophils # (Auto) 0.1 0.0-0.1 10^3/uL Immature Granulocyte # (Auto) 0.1 0.0-0.1 10^3/uL Percent Immature Platelet Fraction 2.1 0.0-7.6 % Prothrombin Time 18.0 H 12.2-14.7 SEC INR Comment 1.5 H 0.8-1.4 Activated Partial Thromboplast Time 42 H 24-35 SEC D-Dimer 3.66 H 0.00-0.49 UG/ML Sodium Level 143 135-145 MMOL/L Potassium Level 4.4 3.6-5.0 MMOL/L Chloride Level 101 98-107 MMOL/L Carbon Dioxide Level 29 21-32 MMOL/L Anion Gap 13 5-14 MMOL/L Blood Urea Nitrogen 15 7-18 MG/DL Creatinine 2.00 H 0.60-1.30 MG/DL Estimat Glomerular Filtration Rate 26 BUN/Creatinine Ratio 8 Glucose Level 139 H 70-105 MG/DL Lactic Acid Level 1.12 0.50-2.00 MMOL/L Calcium Level 8.2 L 8.5-10.1 MG/DL Corrected Calcium 8.9 8.5-10.1 MG/DL Total Bilirubin 0.4 0.1-1.0 MG/DL Aspartate Amino Transf (AST/SGOT) 31 5-34 U/L Alanine Aminotransferase (ALT/SGPT) 16 0-55 U/L Alkaline Phosphatase 98 40-136 U/L C-Reactive Protein High Sensitivity 3.49 H 0.00-0.50 MG/DL B-Type Natriuretic Peptide 1399.2 H <100.0 PG/ML Total Protein 6.3 L 6.4-8.2 GM/DL Albumin 3.1 L 3.2-4.5 GM/DL Procalcitonin 0.14 H <0.10 NG/ML Influenza Type A (RT-PCR) Not Detected Not Detecte Influenza Type B (RT-PCR) Not Detected Not Detecte SARS-CoV-2 RNA (RT-PCR) Not Detected Not Detecte Urine Color ORANGE Urine Clarity SL CLOUDY Urine pH 5.0 5-9 Urine Specific [place] >=1.030 1.016-1.022 Urine Protein NEGATIVE NEGATIVE Urine Glucose (UA) NEGATIVE NEGATIVE Urine Ketones NEGATIVE NEGATIVE Urine Nitrite NEGATIVE NEGATIVE Urine Bilirubin 1+ H NEGATIVE Urine Urobilinogen 0.2 < = 1.0 MG/DL Urine Leukocyte Esterase NEGATIVE NEGATIVE Urine RBC (Auto) 2+ H NEGATIVE Urine RBC 5-10 H /HPF Urine WBC 2-5 /HPF Urine Squamous Epithelial Cells 2-5 /HPF Urine Crystals NONE /LPF Urine Bacteria FEW H /HPF Urine Casts PRESENT /LPF Urine Hyaline Casts 5-10 H /LPF Urine Mucus NEGATIVE /LPF Urine Yeast FEW H /HPF Urine Culture Indicated CULTURE PENDING Test 04/20/21 02:05 Range/Units White Blood Count 11.4 H 4.3-11.0 10^3/uL Red Blood Count 2.91 L 3.80-5.11 10^6/uL Hemoglobin 7.7 L 11.5-16.0 g/dL Hematocrit 28 L 35-52 % Mean Corpuscular Volume 95 80-99 fL Mean Corpuscular Hemoglobin 27 25-34 pg Mean Corpuscular Hemoglobin Concent 28 L 32-36 g/dL Red Cell Distribution Width 19.6 H 10.0-14.5 % Platelet Count 518 H 130-400 10^3/uL Mean Platelet Volume 9.1 9.0-12.2 fL Immature Granulocyte % (Auto) 1 % Neutrophils (%) (Auto) 92 H 42-75 % Lymphocytes (%) (Auto) 5 L 12-44 % Monocytes (%) (Auto) 1 0-12 % Eosinophils (%) (Auto) 0 0-10 % Basophils (%) (Auto) 1 0-10 % Neutrophils # (Auto) 10.5 H 1.8-7.8 10^3/uL Lymphocytes # (Auto) 0.6 L 1.0-4.0 10^3/uL Monocytes # (Auto) 0.1 0.0-1.0 10^3/uL Eosinophils # (Auto) 0.0 0.0-0.3 10^3/uL Basophils # (Auto) 0.1 0.0-0.1 10^3/uL Immature Granulocyte # (Auto) 0.1 0.0-0.1 10^3/uL Neutrophils % (Manual) 94 % Lymphocytes % (Manual) 3 % Eosinophils % (Manual) 1 % Band Neutrophils 2 % Hypochromasia SLIGHT Microcytosis SLIGHT Macrocytosis SLIGHT Sodium Level 142 135-145 MMOL/L Potassium Level 4.1 3.6-5.0 MMOL/L Chloride Level 102 98-107 MMOL/L Carbon Dioxide Level 25 21-32 MMOL/L Anion Gap 15 H 5-14 MMOL/L Blood Urea Nitrogen 14 7-18 MG/DL Creatinine 1.83 H 0.60-1.30 MG/DL Estimat Glomerular Filtration Rate 29 BUN/Creatinine Ratio 8 Glucose Level 172 H 70-105 MG/DL Lactic Acid Level 1.84 0.50-2.00 MMOL/L Calcium Level 7.9 L 8.5-10.1 MG/DL Radiology ECHOCARDIOGRAM (04/20/2021): 1. Left ventricle: The cavity size is normal. There is mild concentric hypertrophy. Systolic function is normal. The estimated ejection fraction is 60- 65%. There were no regional wall motion abnormalities identified. Doppler parameters are consistent with abnormal left ventricular relaxation (grade 1 diastolic dysfunction). 2. Left atrium: The atrium is mildly dilated measuring 4.4 cm. 3. Right atrium: The atrium is dilated. 4. Aortic root: The aortic root is mildly dilated measuring 3.5 cm. 5. Pulmonary arteries: The estimated pulmonary artery systolic pressure is 52 mmHg. Diagnosis/Problems Diagnosis/Problems (1) Acute on chronic diastolic heart failure Assessment & Plan: She carries a history of heart failure with preserved ejection fraction. I suspect her current situation is multifactorial in etiology related to both her cardiac disease as well as underlying prior primary disease on steroids and her chronic kidney disease. I suggest we continue intravenous diuretic and follow her renal function closely. (2) Acute on chronic respiratory failure with hypoxemia Assessment & Plan: As with the heart failure, this is most likely multifactorial in etiology. The hospitalist is managing the pulmonary aspect of the respiratory failure. (3) Pulmonary hypertension Assessment & Plan: As with her chronic respiratory failure, this is most likely multifactorial in etiology. She should continue with home oxygen. This will need to be followed longitudinally. (4) Paroxysmal atrial fibrillation Assessment & Plan: She is in sinus rhythm on telemetry. She has been on diltiazem and metoprolol for rate control and rivaroxaban for stroke prophylaxis. These should be continued. The diltiazem is presently on hold due to some soft blood pressures. (5) Essential hypertension Assessment & Plan: Resume outpatient antihypertensive medication. We could try to gingerly give her a low dose of spironolactone for the heart failure but we would have to watch her renal function closely. I would suggest we wait until she is optimized and then we could consider adding low-dose spironolactone. (6) Acute kidney injury superimposed on chronic kidney disease Assessment & Plan: As above, this is most likely contributing to her fluid retention. Given her diastolic heart failure, this can often be a very difficult situation to manage. (7) Cigarette smoker Assessment & Plan: Smoking cessation was strongly encouraged. She needs to quit smoking. MARYCRUZ WEEKS JR, MD Apr 20, 2021 14:44
[2021-04-20] MEDS: RIVAROXABAN 20 MG TABLET (XARELTO) PO SCH (16:37)
[2021-04-20] MEDS: oxyCODONE/APAP 10/325MG (PERCOCET 10) TABLET PO PRN (17:10)
[2021-04-20] MEDS: GABAPENTIN 600 MG (NEURONTIN) TAB PO SCH (20:09)
[2021-04-20] MEDS: meTOprolol TARTRATE 50 MG (LOPRESSOR) TAB PO SCH (20:10)
[2021-04-20] MEDS: RT-BUDESONIDE NEBS 0.5 MG/2ML (PULMICORT) AMP INH SCH (21:39)
[2021-04-20] MEDS: VANCOMYCIN 1 GM/NS 250 ML IVPB IV SCH ×2 (23:35)
[2021-04-21] MEDS: RT-ALBUTEROL/IPRATROPIUM 3 ML (DUONEB) VIAL INH SCH ×6 (02:09→21:44)
[2021-04-21 04:08] LABS: BASOPHILS % (AUTO) 0 % (0-10); EOSINOPHILS % (AUTO) 0 % (0-10); HEMATOCRIT 26 % (35-52); HEMOGLOBIN 7.2 g/dL (11.5-16.0); LYMPHOCYTES # (AUTO) 0.5 10^3/uL (1.0-4.0); LYMPHOCYTES % (AUTO) 5 % (12-44); MEAN CORPUSCULAR HEMOGLOBIN 26 pg (25-34); MEAN CORPUSCULAR HGB CONC 28 g/dL (32-36); MEAN CORPUSCULAR VOLUME 93 fL (80-99); MEAN PLATELET VOLUME 9.5 fL (9.0-12.2); MONOCYTES # (AUTO) 0.4 10^3/uL (0.0-1.0); MONOCYTES % (AUTO) 4 % (0-12); NEUTROPHILS # (AUTO) 9.3 10^3/uL (1.8-7.8); NEUTROPHILS % (AUTO) 90 % (42-75); PLATELET COUNT 404 10^3/uL (130-400); WHITE BLOOD COUNT 10.3 10^3/uL (4.3-11.0)
[2021-04-21 04:32] LABS: POTASSIUM 4.4 MMOL/L (3.6-5.0)
[2021-04-21 04:35] LABS: TOTAL PROTEIN 5.8 GM/DL (6.4-8.2)
[2021-04-21 04:36] LABS: BILIRUBIN,TOTAL 0.3 MG/DL (0.1-1.0)
[2021-04-21 04:38] LABS: CREATININE SERUM 1.47 MG/DL (0.60-1.30)
[2021-04-21] MEDS: RT-BUDESONIDE NEBS 0.5 MG/2ML (PULMICORT) AMP INH SCH ×2 (07:11→18:23)
[2021-04-21] MEDS: oxyCODONE/APAP 10/325MG (PERCOCET 10) TABLET PO PRN ×3 (08:02→23:03)
[2021-04-21] MEDS: CEFEPIME 1,000 MG/SWFI 10 ML IV PUSH IV SCH ×6 (08:52→23:03)
[2021-04-21] MEDS: FUROSEMIDE 40 MG/4 ML INJ (LASIX) IVP SCH ×2 (08:52→16:25)
[2021-04-21] MEDS: GABAPENTIN 600 MG (NEURONTIN) TAB PO SCH ×2 (08:52→20:09)
[2021-04-21] MEDS: meTOprolol TARTRATE 50 MG (LOPRESSOR) TAB PO SCH ×2 (08:52→20:09)
[2021-04-21] MEDS ORDERED: EPINEPHrine INJECTION 1 MG/ML AMP IM PRN (11:00)
[2021-04-21] MEDS ORDERED: IRON DEXTRAN INJECTION 25 MG in NS (IVPB) 5.75 ML IV ONE (11:00)
[2021-04-21] MEDS ORDERED: HYDROCORTISONE 100 MG/2 ML (Solu-CORTEF) VIAL IV PRN (11:00)
[2021-04-21] MEDS ORDERED: diphenhydrAMINE 50 MG/ML INJ (BENADRYL) IV PRN (11:00)
[2021-04-21] MEDS ORDERED: IRON DEXTRAN INJECTION 1,000 MG in NS (IVPB) 250 ML IV ONE (11:00)
[2021-04-21] MEDS ORDERED: RT-ALBUTEROL SULF 2.5 MG/3 ML PRE-MIX VIAL IH PRN (11:00)
--- NOTE | 2021-04-21 11:05 | Progress Note - Hospitalist ---
Subjective HPI/CC On Admission Date Seen by Provider: Apr 21, 2021 Time Seen by Provider: 11:03 Pt is a 56yoCF known to me from recent admission who presented to the ER due to SOB and weakness. She was discharged from the hospital on 04/15 and had been doing well until yesterday when she started to feel weak. She was unable to get up and ambulate to the bathroom like normal. She called her home health agency to hopefully prevent coming to the hospital but they advised evaluation in the ER. She was found to be hypoxic and was placed on BiPAP and did well. Labs were consistent with heart failure and she was admitted for further evaluation. This morning she is on nasal cannula and reports feeling much better. Subjective/Events-last exam Pt reports feeling well today. No complaints. Pain controlled. Focused Exam Lactate Level 04/19/21 21:58: Lactic Acid Level 1.12 04/20/21 02:05: Lactic Acid Level 1.84 Time of Focused Exam: 00:44 Objective Exam Vital Signs Vital Signs Date Time Temp Pulse Resp B/P (MAP) Pulse Ox O2 Delivery O2 Flow Rate FiO2 04/21/21 10:32 96 Nasal Cannula 4.00 04/21/21 08:35 36.7 100 16 137/79 (98) 04/20/21 05:52 40 Capillary Refill : Less Than 3 Seconds General Appearance: No Apparent Distress, Chronically ill, Obese Respiratory: Lungs Clear, No Accessory Muscle Use, No Respiratory Distress Cardiovascular: Regular Rate, Rhythm, No Murmur Gastrointestinal: Normal Bowel Sounds, Non Tender, Soft Neurologic/Psychiatric: Alert, Oriented x3 Results/Procedures Lab Laboratory Tests 04/21/21 03:27 Patient resulted labs reviewed. Imaging: Reviewed Imaging Report Assessment/Plan Assessment and Plan Assess & Plan/Chief Complaint Acute hypoxic respiratory failure Likely decompensated heart failure Continue on oxygen supplementation, wean as able BNP elevated from 13 just 2 weeks ago to ~1400 in ER Continue Lasix Continue IV abx but will check procal tomorrow and likely DC if remains essentially negative Cardiology consuulted, appreciate recs Echo with preserved EF and grade 1 diastolic dysfunction GIOVANNI Baseline creatinine closer to 1 Improved today with diuresis again today, watch closely Monitor I/O HOld lisinopril and potassium Anemia of Chronic disease Iron was low on 04/13 Will replace with Infed today h/o of DVT AFib Continue Xarelto Regular rate Monitor on telemetry HTN COPD Obesity Continue home meds DVT ppx: Xarelto Diagnosis/Problems Diagnosis/Problems (1) Acute respiratory failure with hypoxemia Status: Acute (2) Acute kidney injury Status: Acute (3) Heart failure Status: Acute Qualifiers: Heart failure type: unspecified Heart failure chronicity: acute Qualified Codes: I50.9 - Heart failure, unspecified (4) Lymphedema of both lower extremities Status: Acute (5) Paroxysmal A-fib Status: Chronic (6) HTN (hypertension) Status: Chronic (7) Debility (8) Very heavy cigarette smoker (40 or more per day) Status: Acute (9) Venous stasis dermatitis of both lower extremities Status: Acute BROOKLYN DUNLAP MD Apr 21, 2021 11:05
[2021-04-21] MEDS: NS IV 500 ML 500 ML IV SCH (11:56)
--- NOTE | 2021-04-21 13:59 | Cardiology Progress Note ---
Progress Note-Cardiology Events since last exam Date Seen by Provider: Apr 21, 2021 Time Seen by Provider: 13:54 Events since last exam We are seeing her due to heart failure. Her breathing improved overnight and her swelling is going down. She has some intermittent lightheaded spells but denies syncope. She denies chest pain or palpitations. Vitals Last set of Vitals Signs Vital Signs 04/20/21 04/21/21 05:52 12:40 Temp 36.8 Pulse 100 Resp 16 B/P (MAP) 145/76 (99) Pulse Ox 96 O2 Delivery Nasal Cannula O2 Flow Rate 4.00 FiO2 40 Labs Labs Laboratory Tests 04/21/21 03:27 Exam Vital Signs Vital Signs Date Time Temp Pulse Resp B/P (MAP) Pulse Ox O2 Delivery O2 Flow Rate FiO2 04/21/21 12:40 36.8 100 16 145/76 (99) 96 Nasal Cannula 4.00 04/20/21 05:52 40 Physical Exam General: Alert. No acute distress. Eye: No xanthelasma. HENT: Normocephalic. Neck: Jugular venous pressure does not appear elevated. Respiratory: Lungs have diffusely decreased breath sounds with scattered wheezes bilaterally. Respirations are non-labored. Breath sounds are equal. Symmetrical chest wall expansion. Cardiovascular: Normal rate. Regular rhythm. No murmur. No gallop. 3+ bilateral pretibial edema with diffuse erythema and areas of excoriation. Gastrointestinal: Soft. Normal bowel sounds. Skin: Warm. Dry. Neurologic: Alert and oriented to person, place, time. Cranial nerves 3-11 grossly intact. Psychiatric: Cooperative. Appropriate mood & affect. Labs Laboratory Tests Test 04/21/21 03:27 Range/Units White Blood Count 10.3 4.3-11.0 10^3/uL Red Blood Count 2.73 L 3.80-5.11 10^6/uL Hemoglobin 7.2 L 11.5-16.0 g/dL Hematocrit 26 L 35-52 % Mean Corpuscular Volume 93 80-99 fL Mean Corpuscular Hemoglobin 26 25-34 pg Mean Corpuscular Hemoglobin Concent 28 L 32-36 g/dL Red Cell Distribution Width 19.7 H 10.0-14.5 % Platelet Count 404 H 130-400 10^3/uL Mean Platelet Volume 9.5 9.0-12.2 fL Immature Granulocyte % (Auto) 1 % Neutrophils (%) (Auto) 90 H 42-75 % Lymphocytes (%) (Auto) 5 L 12-44 % Monocytes (%) (Auto) 4 0-12 % Eosinophils (%) (Auto) 0 0-10 % Basophils (%) (Auto) 0 0-10 % Neutrophils # (Auto) 9.3 H 1.8-7.8 10^3/uL Lymphocytes # (Auto) 0.5 L 1.0-4.0 10^3/uL Monocytes # (Auto) 0.4 0.0-1.0 10^3/uL Eosinophils # (Auto) 0.0 0.0-0.3 10^3/uL Basophils # (Auto) 0.0 0.0-0.1 10^3/uL Immature Granulocyte # (Auto) 0.1 0.0-0.1 10^3/uL Sodium Level 140 135-145 MMOL/L Potassium Level 4.4 3.6-5.0 MMOL/L Chloride Level 99 98-107 MMOL/L Carbon Dioxide Level 30 21-32 MMOL/L Anion Gap 11 5-14 MMOL/L Blood Urea Nitrogen 21 H 7-18 MG/DL Creatinine 1.47 H 0.60-1.30 MG/DL Estimat Glomerular Filtration Rate 37 BUN/Creatinine Ratio 14 Glucose Level 255 H 70-105 MG/DL Calcium Level 8.0 L 8.5-10.1 MG/DL Corrected Calcium 8.8 8.5-10.1 MG/DL Total Bilirubin 0.3 0.1-1.0 MG/DL Aspartate Amino Transf (AST/SGOT) 16 5-34 U/L Alanine Aminotransferase (ALT/SGPT) 14 0-55 U/L Alkaline Phosphatase 89 40-136 U/L Total Protein 5.8 L 6.4-8.2 GM/DL Albumin 3.0 L 3.2-4.5 GM/DL Diagnosis/Problems Diagnosis/Problems (1) Acute on chronic diastolic heart failure Assessment & Plan: She carries a history of heart failure with preserved ejection fraction. I suspect her current situation is multifactorial in etiology related to both her cardiac disease as well as underlying prior primary disease on steroids and her chronic kidney disease. Her breathing and edema are improving. Her renal function has also improved in the past 24 hours. I will increase her dose of furosemide and watch her renal function closely. If we can add spironolactone at some point, this may help prevent decompensation of the heart failure. (2) Acute on chronic respiratory failure with hypoxemia Assessment & Plan: Most likely multifactorial in etiology. The hospitalist is managing the pulmonary aspect of the respiratory failure. (3) Pulmonary hypertension Assessment & Plan: I suspect this is related to chronic heart failure coupled with her chronic pulmonary disease. She should continue with home oxygen. This will need to be followed longitudinally. (4) Paroxysmal atrial fibrillation Assessment & Plan: She is in sinus rhythm on telemetry. She has been on diltiazem and metoprolol for rate control and rivaroxaban for stroke prophylaxis. Her blood pressures are better today. I will resume the diltiazem. (5) Essential hypertension Assessment & Plan: Her blood pressures improved overnight. I will resume diltiazem. As above, if her renal function stabilizes and her blood pressure will allow, we might want to consider adding spironolactone for her heart failure with preserved ejection fraction. (6) Acute kidney injury superimposed on chronic kidney disease Assessment & Plan: Her renal function is improving despite the diuresis. We will often see this when patients are aggressively treated for heart failure. (7) Cigarette smoker Assessment & Plan: Smoking cessation was strongly encouraged. She needs to quit smoking. MARYCRUZ WEEKS JR, MD Apr 21, 2021 13:59
[2021-04-21] MEDS: dilTIAZem120 MG (CARDIZEM CD) CAP PO SCH (14:05)
[2021-04-21 14:25] VITALS: BP 150/78
[2021-04-21 14:35] LABS: TRIGLYCERIDES 182 MG/DL (<150); VLDL CHOLESTEROL 36 MG/DL (5-40)
[2021-04-21 14:40] LABS: CHOLESTEROL 112 MG/DL (< 200)
[2021-04-21 14:41] LABS: HDL CHOLESTEROL 27 MG/DL (40-60)
[2021-04-21 15:59] VITALS: BP 157/79
[2021-04-21] MEDS: RIVAROXABAN 20 MG TABLET (XARELTO) PO SCH (16:25)
[2021-04-21 19:18] VITALS: BP 146/73
[2021-04-21] MEDS: VANCOMYCIN 1 GM/NS 250 ML IVPB IV SCH ×2 (23:02)
[2021-04-21 23:55] VITALS: BP 149/73
[2021-04-22] MEDS: RT-ALBUTEROL/IPRATROPIUM 3 ML (DUONEB) VIAL INH SCH ×3 (01:52→10:47)
[2021-04-22] MEDS: NS IV 500 ML 500 ML IV SCH (03:42)
[2021-04-22 04:22] VITALS: BP 128/63
[2021-04-22 04:37] LABS: BASOPHILS % (AUTO) 0 % (0-10); EOSINOPHILS % (AUTO) 0 % (0-10); HEMATOCRIT 31 % (35-52); HEMOGLOBIN 8.6 g/dL (11.5-16.0); LYMPHOCYTES % (AUTO) 9 % (12-44); MEAN CORPUSCULAR HEMOGLOBIN 26 pg (25-34); MEAN CORPUSCULAR HGB CONC 28 g/dL (32-36); MEAN CORPUSCULAR VOLUME 94 fL (80-99); MEAN PLATELET VOLUME 9.2 fL (9.0-12.2); MONOCYTES # (AUTO) 0.5 10^3/uL (0.0-1.0); MONOCYTES % (AUTO) 4 % (0-12); NEUTROPHILS # (AUTO) 9.4 10^3/uL (1.8-7.8); NEUTROPHILS % (AUTO) 86 % (42-75); PLATELET COUNT 460 10^3/uL (130-400)
[2021-04-22 04:50] LABS: ALBUMIN 3.4 GM/DL (3.2-4.5)
[2021-04-22 04:51] LABS: POTASSIUM 3.7 MMOL/L (3.6-5.0)
[2021-04-22 04:52] LABS: CALCIUM 8.3 MG/DL (8.5-10.1)
[2021-04-22 04:53] LABS: TOTAL PROTEIN 6.5 GM/DL (6.4-8.2)
[2021-04-22 04:55] LABS: BILIRUBIN,TOTAL 0.3 MG/DL (0.1-1.0)
[2021-04-22 04:57] LABS: CREATININE SERUM 1.41 MG/DL (0.60-1.30)
[2021-04-22] MEDS: RT-BUDESONIDE NEBS 0.5 MG/2ML (PULMICORT) AMP INH SCH (06:20)
[2021-04-22] MEDS: FUROSEMIDE 40 MG/4 ML INJ (LASIX) IVP SCH (06:29)
[2021-04-22] MEDS: oxyCODONE/APAP 10/325MG (PERCOCET 10) TABLET PO PRN (06:29)
[2021-04-22 08:00] VITALS: BP 138/67
[2021-04-22] MEDS: CEFEPIME 1,000 MG/SWFI 10 ML IV PUSH IV SCH ×4 (08:16→16:09)
[2021-04-22] MEDS: GABAPENTIN 600 MG (NEURONTIN) TAB PO SCH (08:17)
[2021-04-22] MEDS: meTOprolol TARTRATE 50 MG (LOPRESSOR) TAB PO SCH (08:17)
[2021-04-22] MEDS: dilTIAZem120 MG (CARDIZEM CD) CAP PO SCH (08:17)
--- NOTE | 2021-04-22 09:22 | Occupational Ther Daily Note ---
OT Current Status-Daily Note Subjective Pt AxO, on commode upon entry. Pt agrees to tx, 8/10 pain in BLE. Pt expresses needs urination frequently 2* lasix. Mental Status/Objective Patient Orientation: Person, Place, Situation, Normal For Age Attachments: Oxygen ADL-Treatment Therapy Code Descriptions/Definitions Functional Blair Measure: 0=Not Assessed/NA 4=Minimal Assistance 1=Total Assistance 5=Supervision or Setup 2=Maximal Assistance 6=Modified Blair 3=Moderate Assistance 7=Complete IndependenceSCALE: Activities may be completed with or without assistive devices. 1-Qwypizqhrf-fhilawu completes the activity by him/herself with no assistance from a helper. 5-Set-up or Clean-up Assistance-helper sets up or cleans up; patient completes activity. [place] assists only prior to or following the activity. 4-Supervision or Touching Assistance-helper provides verbal cues and/or touching/steadying and/or contact guard assistance as patient completes activity. Assistance may be provided throughout the activity or intermittently. 3-Partial/Moderate Assistance-helper does LESS THAN HALF the effort. [place] lifts, holds or supports trunk or limbs, but provides less than half the effort. 2-Substantial/Maximal Assistance-helper does MORE THAN HALF the effort. [place] lifts or holds trunk or limbs and provides more than half the effort. 2-Zrchrzhao-lpmshm does ALL the effort. Patient does none of the effort to complete the activity. Or, the assistance of 2 or more helpers is required for the patient to complete the activity. If activity was not attempted, code reason: 7-Patient Refused. 9-Not Applicable-not attempted and the patient did not perform the activity before the current illness, exacerbation or injury. 10-Not Attempted due to Environmental Limitations-(lack of equipment, weather restraints, etc.). 88-Not Attempted due to Medical Conditions or Safety Concerns. Eating (QC): 6 Shower/Bathe Self (QC): 7 Lower Body Dressing (QC): 3 (mod A threading BLE, pt able to thread from ankles over hips in stance.) On/Off Footwear: 2 (max A BLE.) Toileting Hygiene (QC): 4 (s/u and SBA in stance.) Toilet Transfer (QC): 4 (SBA) Other Treatment Pt completes threading BLE with mod A and sock donning max A on BSC. Pt then sit to stand with SBA, use of walker. Pt pulls pants over hips and able to complete hygiene in stance. Pt ambulates through room with OT/ PT co-treat. See PT notes for ambulation distance. Pt sits in recliner. Completes 20 reps of shoulder flexion and is educated to continue UE/ LE movement in chair. Pt denies needs, call light in reach, pt's nurse present. Education OT Patient Education: Correct positioning, Exercise program, Home exercise program, Progress toward Goal/Update tx plan, Purpose of tx/functional activities, Safety issues Teaching Recipient: Patient Teaching Methods: Demonstration, Discussion Response to Teaching: Verbalize Understanding, Return Demonstration OT Short Term Goals Short Term Goals Time Frame: Apr 27, 2021 Eatin Oral hygiene: 5 Toileting hygiene: 4 Upper body dressin Lower body dressin Putting on/taking off footwear: 3 OT Halfway Goals Installation Service Representative Goals Time Frame: May 04, 2021 Eating (QC): 6 Oral Hygiene (QC): 5 Toileting Hygiene (QC): 6 Shower/Bathe Self (QC): 4 Upper Body Dressing (QC): 5 Lower Body Dressing (QC): 4 On/Off Footwear (QC): 4 Additional Goals: 1-Demonstrate ADL Tasks, 2-Verbalize Understanding, 3- ImproveStrength/Lyn 1=Demonstrate adherence to instructed precautions during ADL tasks. 2=Patient will verbalize/demonstrate understanding of assistive devices/modifications for ADL. 3=Patient will improve strength/tolerance for activity to enable patient to perform ADL's. OT Education/Plan Problem List/Assessment Assessment: Decreased Activ Tolerance, Decreased UE Strength, Edema, Impaired I ADL's, Impaired Self-Care Skills Discharge Recommendations Plan/Recommendations: Continue POC Therapy Discharge Recommendati: Home & Family, Post Acute OT Treatment Plan/Plan of Care Treatment,Training & Education: Yes Patient would benefit from OT for education, treatment and training to promote independence in ADL's, mobility, safety and/or upper extremity function for ADL's. Plan of Care: ADL Retraining, Functional Mobility, UE Funct Exercise/Act Treatment Duration: May 04, 2021 Frequency: 5 times per week Estimated Hrs Per Day: .25 hour per day Agreement: Yes Rehab Potential: Fair Time/GCodes Start Time: 08:41 Stop Time: 08:56 Total Time Billed (hr/min): 15 Billed Treatment Time 1, ADL (15) MICHEL TRIMBLE OTR Apr 22, 2021 09:22
--- NOTE | 2021-04-22 09:55 | Physical Therapy Daily Note ---
PT Daily Note-Current Subjective Patient on commode pre tx, agrees to PT, has unrated but significant pain in both legs, she has bleeding from various places on her legs, nurse is aware. Appearance Patient in recliner post tx with nurse call, phone, tray, all needs met. Mental Status Patient Orientation: Person, Place, Situation Attachments: Oxygen Transfers SCALE: Activities may be completed with or without assistive devices. 2-Vgmpysmjie-atwshoj completes the activity by him/herself with no assistance from a helper. 5-Set-up or Clean-up Assistance-helper sets up or cleans up; patient completes activity. [place] assists only prior to or following the activity. 4-Supervision or Touching Assistance-helper provides verbal cues and/or touc sigrid/steadying and/or contact guard assistance as patient completes activity. Assistance may be provided throughout the activity or intermittently. 3-Partial/Moderate Assistance-helper does LESS THAN HALF the effort. [place] lifts, holds or supports trunk or limbs, but provides less than half the effort. 2-Substantial/Maximal Assistance-helper does MORE THAN HALF the effort. [place] lifts or holds trunk or limbs and provides more than half the effort. 1-Oumcspeac-yofyex does ALL the effort. Patient does none of the effort to complete the activity. Or, the assistance of 2 or more helpers is required for the patient to complete the activity. If activity was not attempted, code reason: 7-Patient Refused. 9-Not Applicable-not attempted and the patient did not perform the activity before the current illness, exacerbation or injury. 10-Not Attempted due to Environmental Limitations-(lack of equipment, weather restraints, etc.). 88-Not Attempted due to Medical Conditions or Safety Concerns. Sit to Stand (QC): 4 Chair/Mew-kl-Ddcdw Xfer(QC): 4 Weight Bearing Full Weight Bearing Full Weight Bearing Gait Training Distance: 120' Walk 10 feet (QC): 4 Walk 50 ft with 2 Turns(QC): 4 Gait Persons Needed: 1 Gait Assistive Device: FWW CGA, some slight unsteadiness but no LOB, she ambulates back and forth in her room for a total of about 120', talking the whole time without getting SOB. Exercises Seated Therapy Exercises: Ankle pumps, Long arc quads Seated Reps: 20 Treatments transfers, ambulation, LE exercise Assessment Current Status: Fair Progress improving endurance PT Short Term Goals Short Term Goals Time Frame: May 11, 2021 Sit to lyin Lying to sitting on side of be: 6 Sit to stand: 6 Chair/ltk-rf-becgb transfer: 6 Walk 10 feet: 6 Walk 50 feet with two turns: 6 Walk 150 feet: 6 PT Plan Problem List Problem List: Activity Tolerance, Functional Strength, Safety, Balance, Gait, Transfer, Bed Mobility, ROM Treatment/Plan Treatment Plan: Continue Plan of Care Treatment Plan: Bed Mobility, Education, Functional Activity Lyn, Functional Strength, Gait, Safety, Therapeutic Exercise, Transfers Treatment Duration: May 11, 2021 Frequency: 6 times per week Estimated Hrs Per Day: .25 hour per day Patient and/or Family Agrees t: Yes Safety Risks/Education Patient Education: Gait Training, Transfer Techniques, Correct Positioning, Safety Issues Teaching Recipient: Patient Teaching Methods: Demonstration, Discussion Response to Teaching: Reinforcement Needed Time/GCodes Time In: 0842 Time Out: 0856 Total Billed Treatment Time: 14 Total Billed Treatment 1 visit FA GLENNA CA PT Apr 22, 2021 09:55
--- NOTE | 2021-04-22 10:14 | Diagnostic Imaging Report ---
Indication: Chronic heart failure. Compared: 04/20/2021 Findings: Bilateral lower lobe infiltrates greater left with small left greater than right pleural effusions all unchanged from 2 days ago. Heart is mildly enlarged, unchanged. The upper lobes clear. Impression: Bibasilar infiltrates and pleural effusions with upper limits heart size all unchanged from recent exam. Dictated by: Dictated on workstation # [id number]
[2021-04-22] MEDS ORDERED: OXYC10TA7 PO (11:37)
[2021-04-22 11:56] VITALS: BP 138/67
--- NOTE | 2021-04-22 12:02 | Discharge Summary ---
Discharge Summary Reconcile Patient Problems Problems Reviewed?: Yes Instructions for Patient Via [email or web address], Assessment/Instructions Take medications as prescribed. Begin taking Lasix 80 mg daily. Begin taking potassium 20 mEq daily. Follow-up with Dr. Aggarwal. Follow-up with Dr. Hicks. Return with worsening shortness of breath or if you feel like you are getting worse. Physician to follow Patient: Fabiola Discharge Diet for Home: Cardiac Diet Hospital Course Date of Admission: Apr 20, 2021 at 00:40 Admission Diagnosis : Acute on chronic heart failure with preserved ejection fraction Family Physician/Provider: García Hicks DO Date of Discharge: 04/22/21 Discharge Diagnosis: Acute on chronic heart failure with preserved ejection fraction Hospital Course: Helene Hicks is a 56-year-old female who was admitted with acute on chronic heart failure with preserved ejection fraction. Cardiology was consulted and assisted with her care. She was treated with IV Lasix. Her respiratory status improved. She initially required BiPAP. She returned to her baseline oxygen requirement of 4 L. Her echo showed normal ejection fraction with grade 1 diastolic dysfunction. Her home Lasix dose was increased from 40 mg every other day to 80 mg daily. Cardiology is considering beginning spironolactone. She should follow-up with her evaporator repairer, Dr. Aggarwal. She should follow-up with her primary care physician, Dr. Hicks. She was discharged home in stable condition. She should resume home health care. Labs and Pending Lab Test: Laboratory Tests 04/22/21 04:10: White Blood Count 11.0, Red Blood Count 3.27L, Hemoglobin 8.6L, Hematocrit 31L, Mean Corpuscular Volume 94, Mean Corpuscular Hemoglobin 26, Mean Corpuscular Hemoglobin Concent 28L, Red Cell Distribution Width 19.2H, Platelet Count 460H, Mean Platelet Volume 9.2, Immature Granulocyte % (Auto) 1, Neutrophils (%) (Auto) 86H, Lymphocytes (%) (Auto) 9L, Monocytes (%) (Auto) 4, Eosinophils (%) (Auto) 0, Basophils (%) (Auto) 0, Neutrophils # (Auto) 9.4H, Lymphocytes # (Auto) 1.0, Monocytes # (Auto) 0.5, Eosinophils # (Auto) 0.0, Basophils # (Auto) 0.0, Immature Granulocyte # (Auto) 0.1, Sodium Level 140, Potassium Level 3.7, Chloride Level 96L, Carbon Dioxide Level 32, Anion Gap 12, Blood Urea Nitrogen 24H, Creatinine 1.41H, Estimat Glomerular Filtration Rate 39, BUN/Creatinine Ratio 17, Glucose Level 167H, Calcium Level 8.3L, Corrected Calcium 8.8, Total Bilirubin 0.3, Aspartate Amino Transf (AST/SGOT) 18, Alanine Aminotransferase (ALT/SGPT) 15, Alkaline Phosphatase 89, Total Protein 6.5, Albumin 3.4, Procalcitonin 0.11H Microbiology 04/20/21 MRSA Screen - Final, Complete MRSA not isolated 04/19/21 Urine Culture - Final, Complete 3 or more isolates 04/19/21 Blood Culture - Preliminary, Resulted No growth Home Meds Active Oxycodone HCl 10 Mg Tablet 10 Mg PO Q4H 7 Days Loratadine 10 Mg Tablet 10 Mg PO DAILY Amox Tr-K Clv 875-125 mg Tab (Amoxicillin/Potassium Clav) 1 Each Tablet 875 Mg PO BID WITH MEALS Reported Ondansetron HCl 4 Mg Tablet 4 Mg PO Q6H PRN Xarelto (Rivaroxaban) 20 Mg Tablet 20 Mg PO DAILY Prozac (Fluoxetine HCl) 10 Mg Capsule 10 Mg PO DAILY Breztri Aerosphere Inhaler (Budesonide/Glycopyr/Formoterol) 10.7 Gm Hfa.aer.ad 2 Puff INH BID Albuterol Sulfate 1.25 Mg/3 Ml Vial.neb 3 Ml INH Q6H PRN Ventolin Hfa (Albuterol Sulfate) 1 Puff Puff 2 Puff INH Q4H PRN Cartia Xt (Diltiazem HCl) 120 Mg Cap.er.24h 120 Mg PO DAILY Budesonide 1 Mg/2 Ml Ampul.neb 2 Ml INH Q4- 6H PRN Buprenorphine-Nalox 8-2Mg Film (Buprenorphine HCl/Naloxone HCl) 1 Each Film 1 Each PO BID Furosemide 80 Mg Tablet 80 Mg PO DAILY Lisinopril 10 Mg Tablet 10 Mg PO DAILY PRN Metoprolol Tartrate 100 Mg Tablet 100 Mg PO BID DEPENDING ON REAL TIME READING PATIENT WILL TAKE BETWEEN TO 1 TABLET TWICE DAILY Aspirin 81 Mg Tab.chew 81 Mg PO DAILY Gabapentin 600 Mg Tablet 600 Mg PO TID PRN Consulations Cardiology Patient Allergies: Coded Allergies: No Known Drug Allergies (Unverified , 04/29/19) Height (Feet): 5 Height (Inches): 5.00 Weight (Pounds): 218 Weight (Ounces): 0.0 Home Health Need/Face to Face Date of Face to Face: Apr 22, 2021 Clinical Findings: Generalized weakness and fatigue, Muscle weakness, Shortness of breath, Unsteady gait I have seen Pt hqts-rg-avzc: Yes Discharged To: Home Diagnosis/Conditions: CHF COPD CKD A. fib Debility Problems/Diagnosis/Condition: (1) Acute on chronic diastolic heart failure (2) CHF (congestive heart failure) (3) COPD (chronic obstructive pulmonary disease) (4) Chronic renal insufficiency (5) Debility (6) Lymphedema of both lower extremities Patient is Homebound due to: Emmett fall risk due to instabilty, Muscle weakness, Pain w/ambulation, Shortness of breath/distress Homebound Status Due to the above stated illness, injury or surgical procedure (medical condition or diagnosis) and associated clinical findings, the patient is homebound because of his/her inability to leave home except with aid of a supportive device and/or person AND leaving the home requires a considerable and taxing effort or is medically contraindicated. Pt req the following assistanc: Aid of another person, Walker Home Health Nursing Orders Home Health Services Order: Nursing Services, Administrative Executive-Evaluate & Treat, Physical Therapy-Evaluate & Treat, Wound Care-Eval/Treat Home Health Infusion Therapy Line Start Date: Apr 19, 2021 Therapy Orders Therapy Orders: OT (must have SN or PT order), Physical Therapy Therapy Specific Orders: Eval assistive deivces, Teach enviro modifications/safety, Gait training, Increase strength/endurance Certify Stmt I certify that this patient is under my care and that I, a nurse practitioner or a physician; a child development assistant working with me, had a face to face encounter that - meets the physician face to face encounter requirements with this patient as dated. Discharge Physical Exam General: Alert, Oriented X3, Cooperative, No Acute Distress HEENT: Atraumatic, EOMI, Mucous Memb Moist/Roca Lungs: Clear to Auscultation, Normal Air Movement Heart: Regular Rate, Normal S1, Normal S2, No Murmurs Abdomen: Normal Bowel Sounds, Soft, No Tenderness Extremities: Other (Bilateral lower extremity swelling) Skin: No Rashes, No Significant Lesion Neuro: Normal Speech, Normal Tone Psych/Mental Status: Mental Status NL, Mood NL ACE DIAMOND MD Apr 22, 2021 11:48
--- NOTE | 2021-04-24 08:13 | Physician Query Clarification ---
PQ-Uncertain Diagnosis Admission/Discharge Admission Date: Apr 20, 2021 at 00:40 Discharge Date: Apr 22, 2021 at 16:13 Dr. Diamond, The medical record reflects the following clinical scenario: History/Risk Factors: HTN, CKD, acute on chronic diastolic CHF, PAF, acute on chronic respiratory failure Clinical Findings: T 36.9, P 111, R 24, WBC 9.6, Lactic acid 1.12 > 1.84 Treatment: IV Cefepime, IV Vancomycin Question: Is sepsis and pneumonia a clinically valid diagnosis? Sepsis and pneumonia was documented in the ER impression with no further documentation in the medical record. Please document a response in Progress Note or Discharge Summary. 1. Yes, sepsis and pneumonia are clinically valid, condition resolved. 2. No, sepsis and pneumonia condition ruled out. 3. Yes, sepsis valid but pneumonia ruled out 4. Yes, pneumonia valid but sepsis ruled out 5. Other, with explanation of clinical findings. 6. Undetermined, no explanation for clinical findings. PHYSICIAN RESPONSE Diagnosis clinically valid: No, conditon ruled out Please remember a lack of response to the above will prompt a phone page by CDI/Coding staff. In responding to this query, please exercise your independent professional judgm ent. The purpose of this communication is to more accurately reflect the complexity of your patients condition. The fact that a question is asked does not imply that any particular answer is desired or expected. Thank you for your timely response to this clarification. Requestors name: Shabana THIS PHYSICIAN QUERY FORM IS A PERMANENT PART OF THE MEDICAL RECORD SHABANA OLSEN Apr 24, 2021 08:13 ACE DIAMOND MD Apr 30, 2021 10:35
== END 2021-04-22 16:13 | disposition home health service (06) | DRG 291 ==
LOC: EDUNIT# 21:44 → ER 21:45 → CSD 04-20 00:40 → 4TH 04-21 14:45
PROVIDERS: ADMIT Family Medicine; ATTEND Family Medicine
PROC: 5A09357 Assistance with Respiratory Ventilation, Less than 24 Consecutive Hours, Continuous Positive Airway Pressure (ICD-10-PCS; principal; 2021-04-20)
DX: I13.0 Hypertensive heart and chronic kidney disease with heart failure and stage 1 through stage 4 chronic kidney disease, or unspecified chronic kidney disease (principal); I50.33 Acute on chronic diastolic (congestive) heart failure; J96.21 Acute and chronic respiratory failure with hypoxia; N18.4 Chronic kidney disease, stage 4 (severe); N17.9 Acute kidney failure, unspecified; J44.9 Chronic obstructive pulmonary disease, unspecified; I27.20 Pulmonary hypertension, unspecified; I48.0 Paroxysmal atrial fibrillation; E78.00 Pure hypercholesterolemia, unspecified; K21.9 Gastro-esophageal reflux disease without esophagitis; I87.2 Venous insufficiency (chronic) (peripheral); E66.9 Obesity, unspecified; Z68.36 Body mass index [BMI] 36.0-36.9, adult; F17.210 Nicotine dependence, cigarettes, uncomplicated; D63.8 Anemia in other chronic diseases classified elsewhere; F31.9 Bipolar disorder, unspecified; Z86.718 Personal history of other venous thrombosis and embolism; Z79.01 Long term (current) use of anticoagulants; Z87.01 Personal history of pneumonia (recurrent); Z20.822 Contact with and (suspected) exposure to COVID-19; Z99.81 Dependence on supplemental oxygen; Z79.82 Long term (current) use of aspirin; Z82.49 Family history of ischemic heart disease and other diseases of the circulatory system
CPT/HCPCS: 36415; 71045; 71046; 80048; 80053; 80061; 81000; 82805; 83605; 83880; 84145; 85007; 85025; 85027; 85379; 85610; 85730; 86141; 87040; 87081; 87088; 87636; 93306; 94640; 94660; 94760; 96374; 96375

== ENCOUNTER 2021-04-24 08:59 | Observation (INO) | payer BC, MEDICAID ==
[~2021-04-24] VITALS: Ht 165 cm; Wt 97.0 kg
--- NOTE | 2021-04-24 09:13 | ED Respiratory ---
General Chief Complaint: Respiratory Problems Stated Complaint: PNEUMONIA Source: patient Exam Limitations: no limitations History of Present Illness Date Seen by Provider: Apr 24, 2021 Time Seen by Provider: 08:53 Initial Comments Patient to the ER by EMS from home with chief complaint of physical ability, shortness of air weakness and inability to even get up and go to the bathroom. She says she was not sent home on antibiotics. She was discharged on Thursday, 2 days ago for pneumonia. Notes demonstrate she was here for acute heart failure and had her Lasix increased from 40 mg every other day to 80 mg daily. Plan was to follow-up with Dr. Aggarwal, cardiology to consider starting spironolactone. She feels her redness and swelling in her legs has slightly increased. She has increased her Lasix to 80 daily but has not taken today's dose. She has had no fevers or chills. No productive cough. She had multiple swabs for Covid all of which were negative while she was at the hospital including the last day she was here. She has a history of COPD and is on routinely 2 L by nasal cannula however since her latest string of hospital stays she has up that to 4 L. EMS reports her oxygen saturations were 95 to 97% on her baseline 4 L. Patient is a history of CHF, COPD, chronic kidney disease, atrial fibrillation, physical debility with lymphedema of both lower extremities. Allergies and Home Medications Allergies Coded Allergies: No Known Drug Allergies (Unverified , 04/29/19) Home Medications Albuterol Sulfate 1 Puff Puff, 2 PUFF INH Q4H PRN for SHORTNESS OF BREATH, (Reported) Albuterol Sulfate 1.25 Mg/3 Ml Vial.neb, 3 ML INH Q6H PRN for SHORTNESS OF BREATH, (Reported) Aspirin 81 Mg Tab.chew, 81 MG PO DAILY, (Reported) Budesonide 1 Mg/2 Ml Ampul.neb, 2 ML INH Q4- 6H PRN for SHORTNESS OF BREATH, (Reported) Budesonide/Glycopyr/Formoterol 10.7 Gm Hfa.aer.ad, 2 PUFF INH BID, (Reported) Buprenorphine HCl/Naloxone HCl 1 Each Film, 1 EACH PO BID, (Reported) Diltiazem HCl 120 Mg Cap.er.24h, 120 MG PO DAILY, (Reported) Fluoxetine HCl 10 Mg Capsule, 10 MG PO DAILY, (Reported) Furosemide 80 Mg Tablet, 80 MG PO DAILY, (Reported) Gabapentin 600 Mg Tablet, 600 MG PO TID PRN for NERVE PAIN, (Reported) Lisinopril 10 Mg Tablet, 10 MG PO DAILY PRN for BLOOD PRESSURE, (Reported) Loratadine 10 Mg Tablet, 10 MG PO DAILY Prescribed by: BROOKLYN DUNLAP on 04/15/21 1135 Metoprolol Tartrate 100 Mg Tablet, 100 MG PO BID, (Reported) DEPENDING ON REAL TIME READING PATIENT WILL TAKE BETWEEN TO 1 TABLET TWICE DAILY Ondansetron HCl 4 Mg Tablet, 4 MG PO Q6H PRN for NAUSEA/VOMITING-1ST LINE, (Reported) Oxycodone HCl 10 Mg Tablet, 10 MG PO Q4H Prescribed by: ACE DIAMOND on 04/22/21 1137 Rivaroxaban 20 Mg Tablet, 20 MG PO DAILY, (Reported) Patient Home Medication List Home Medication List Reviewed: Yes Review of Systems Review of Systems Constitutional: No chills, No diaphoresis, No fever EENTM: No ear discharge, No ear pain Respiratory: No cough; short of breath Cardiovascular: No chest pain, No palpitations Gastrointestinal: No abdominal pain, No nausea Genitourinary: No discharge, No dysuria Musculoskeletal: No back pain, No joint pain Skin: No pruritus; rash (Erythematous, blanchable lymphedema bilateral lower extremities) Psychiatric/Neurological: Denies Anxiety, Denies Depressed All Other Systems Reviewed Negative Unless Noted: Yes Past Onevcck-Tynoth-Pdjeis Hx Patient Social History Tobacco Use?: No Use of E-Cig and/or Vaping dev: No Substance use?: No Alcohol Use?: No Immunizations Up To Date Tetanus Booster (TDap): Unknown Seasonal Allergies Seasonal Allergies: Yes Past Medical History Surgery/Hospitalization HX: PT HAS A COPD HX. IS ON 2L VIA NC AT HOME. ALSO ON XARELTO. 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 Sexually Transmitted Disease: No HIV/AIDS: No Genitourinary: Yes (NO DIALYSIS) Renal Failure, UTI-Chronic Gastrointestinal: Yes Gastroesophageal Reflux Musculoskeletal: Yes (CHRONIC GENERALIZED PAIN ) Endocrine: Yes (HAS BEEN ON INSULIN WHEN SHE HAS HAD STEROIDS-STATES SHE IS NOT DIABETIC) HEENT: No Cancer: No Psychosocial: Yes (OPIATE ABUSE, ALCOHOL ABUSE) Bipolar, Depression Integumentary: Yes (CHRONIC LEG WOUNDS/CELLULITIS) Blood Disorders: No Adverse Reaction/Blood Tranf: No Family Medical History Cerebrovascular accident (CVA) 19 FATHER, Onset:60 years & older FH: testicular cancer G8 BROTHER, Onset:30's - 40 Hypertension 19 FATHER, Onset:Unknown 19 MOTHER, Onset:Unknown G8 BROTHER, Onset:Unknown G8 BROTHER, Onset:Unknown Myocardial infarction 19 FATHER, Onset:40's - 50 Heart Disease, Hypertension SOCIAL HISTORY: -ETOH --ABUSE/REGULAR USE -DRUGS--LONG HISTORY OF OPIATE ABUSE -SMOKES 2 PPD ADDITIONAL PMH: -12/14/2020-TRANSFERRED TO [facility] FOR SEPTIC SHOCK WITH ACUTE RENAL FAILURE DUE TO CELLULITIS OF LEGS. -02/03/21-TRANSFERRED TO [facility] FOR SEPSIS WITH ACUTE RENAL FAILURE, ALSO DUE TO CELLULITIS OF LEGS. -ADMITTED AND INTUBATED X 1 MONTH IN SEPTEMBER 2019 FOR BILATERAL PNEUMONIA AND ARDS. HISTORY OF OPIATE ABUSE/ADDICTION--HAS BEEN ON SUBOXONE, BUT STATES SHE CANNOT AFFORD IT AND IS NO LONGER TAKING IT OF 03/11/21 Physical Exam Vital Signs - First Documented 04/24/21 09:01 Temp 36.5 Pulse 90 Resp 18 B/P (MAP) 161/86 (111) O2 Delivery Room Air Capillary Refill : Height: 5'5.00" Weight: 218lbs. 0.0oz. 98.552357fq; 33.12 BMI Method:Stated General Appearance: mild distress, obese HEENT: PERRL/EOMI, TMs normal Neck: full range of motion, normal inspection Respiratory: no respiratory distress, no accessory muscle use; No rales; rhonchi; No wheezing Cardiovascular: normal peripheral pulses, regular rate, rhythm Gastrointestinal: normal bowel sounds, non tender, soft Neurologic/Psychiatric: alert, normal mood/affect, oriented x 3 Skin: normal color, warm/dry Procedures/Interventions Date of ETT Placement: Oct 07, 2019 Time of ETT Placement: 0100 Progress/Results/Core Measures Suspected Sepsis SIRS Temperature: Pulse: Respiratory Rate: Laboratory Tests 04/24/21 09:11: White Blood Count 9.3 Blood Pressure / Mean: Laboratory Tests 04/24/21 09:11: Creatinine 0.84, Platelet Count 522H, Total Bilirubin 0.5 Results/Orders Lab Results Laboratory Tests Test 04/24/21 09:11 04/24/21 09:40 04/24/21 09:50 Range/Units White Blood Count 9.3 4.3-11.0 10^3/uL Red Blood Count 3.39 L 3.80-5.11 10^6/uL Hemoglobin 9.0 L 11.5-16.0 g/dL Hematocrit 32 L 35-52 % Mean Corpuscular Volume 93 80-99 fL Mean Corpuscular Hemoglobin 27 25-34 pg Mean Corpuscular Hemoglobin Concent 29 L 32-36 g/dL Red Cell Distribution Width 19.9 H 10.0-14.5 % Platelet Count 522 H 130-400 10^3/uL Mean Platelet Volume 9.0 9.0-12.2 fL Immature Granulocyte % (Auto) 2 % Neutrophils (%) (Auto) 78 H 42-75 % Lymphocytes (%) (Auto) 12 12-44 % Monocytes (%) (Auto) 4 0-12 % Eosinophils (%) (Auto) 4 0-10 % Basophils (%) (Auto) 0 0-10 % Neutrophils # (Auto) 7.2 1.8-7.8 10^3/uL Lymphocytes # (Auto) 1.1 1.0-4.0 10^3/uL Monocytes # (Auto) 0.3 0.0-1.0 10^3/uL Eosinophils # (Auto) 0.4 H 0.0-0.3 10^3/uL Basophils # (Auto) 0.0 0.0-0.1 10^3/uL Immature Granulocyte # (Auto) 0.2 H 0.0-0.1 10^3/uL Sodium Level 145 135-145 MMOL/L Potassium Level 3.5 L 3.6-5.0 MMOL/L Chloride Level 101 98-107 MMOL/L Carbon Dioxide Level 32 21-32 MMOL/L Anion Gap 12 5-14 MMOL/L Blood Urea Nitrogen 13 7-18 MG/DL Creatinine 0.84 0.60-1.30 MG/DL Estimat Glomerular Filtration Rate > 60 BUN/Creatinine Ratio 15 Glucose Level 109 H 70-105 MG/DL Calcium Level 9.1 8.5-10.1 MG/DL Corrected Calcium 9.6 8.5-10.1 MG/DL Total Bilirubin 0.5 0.1-1.0 MG/DL Aspartate Amino Transf (AST/SGOT) 20 5-34 U/L Alanine Aminotransferase (ALT/SGPT) 17 0-55 U/L Alkaline Phosphatase 89 40-136 U/L C-Reactive Protein High Sensitivity 2.00 H 0.00-0.50 MG/DL B-Type Natriuretic Peptide 892.1 H <100.0 PG/ML Total Protein 6.2 L 6.4-8.2 GM/DL Albumin 3.4 3.2-4.5 GM/DL Urine Color YELLOW Urine Clarity CLEAR Urine pH 8.5 5-9 Urine Specific [place] 1.015 L 1.016-1.022 Urine Protein TRACE H NEGATIVE Urine Glucose (UA) NEGATIVE NEGATIVE Urine Ketones NEGATIVE NEGATIVE Urine Nitrite NEGATIVE NEGATIVE Urine Bilirubin NEGATIVE NEGATIVE Urine Urobilinogen 0.2 < = 1.0 MG/DL Urine Leukocyte Esterase NEGATIVE NEGATIVE Urine RBC (Auto) 2+ H NEGATIVE Urine RBC 25-50 H /HPF Urine WBC RARE /HPF Urine Squamous Epithelial Cells 2-5 /HPF Urine Crystals NONE /LPF Urine Bacteria NEGATIVE /HPF Urine Casts NONE /LPF Urine Mucus NEGATIVE /LPF Urine Culture Indicated NO Blood Gas Puncture Site RIGHT RADIAL Blood Gas Patient Temperature 36.5 Arterial Blood pH 7.50 H 7.37-7.43 Arterial Blood Partial Pressure CO2 43 35-45 MMHG Arterial Blood Partial Pressure O2 61 L 79-93 MMHG Arterial Blood HCO3 34 H 23-27 MMOL/L Arterial Blood Total CO2 35.0 H 21.0-31.0 MMOL/L Arterial Blood Oxygen Saturation 93 L 94-100 % Arterial Blood Base Excess 9.8 H -2.5-2.5 MMOL/L Jame Test POSITIVE Blood Gas Ventilator Setting NO Blood Gas Inspired Oxygen 4 L My Orders Orders - WU HUNG Chest 1 View, Ap/Pa Only (04/24/21 09:06) Cbc With Automated Diff (04/24/21 09:06) Comprehensive Metabolic Panel (04/24/21 09:06) Hs C Reactive Protein (04/24/21 09:06) Ua Culture If Indicated (04/24/21 09:06) Ed Iv/Invasive Line Start (04/24/21 09:06) Ns Iv 1000 Ml (Sodium Chloride 0.9%) (04/24/21 09:15) BNP (04/24/21 09:13) Arterial Blood Gas (04/24/21 09:50) Furosemide Injection (Lasix Injection) (04/24/21 11:00) Medications Given in ED Current Medications Medications Dose Ordered Sig/Chery Route Start Time Stop Time Status Last Admin Dose Admin Furosemide 80 mg ONCE ONCE IVP 04/24/21 11:00 04/24/21 11:01 DC 04/24/21 11:30 80 MG Vital Signs/I&O 04/24/21 09:01 Temp 36.5 Pulse 90 Resp 18 B/P (MAP) 161/86 (111) O2 Delivery Room Air Capillary Refill : Progress Note #1: Time: 09:20 Progress Note Suspect patient has physical debility. She does not acutely appear to be short of breath on her baseline 4 L by nasal cannula. Plan to get an ABG, chest x-ray and labs including a BNP. She has aseptic vital signs. She may benefit from extended stay in- patient acute rehab. Progress Note #2: Time: 10:55 Progress Note Patient still having some acute on chronic heart failure and respiratory failure as evidenced by her ABG and BNP and chest x-ray. Discussed the case with Dr. Diamond who recommends that we should pursue inpatient rehab. Discussed the case with Dr. Virk who would be willing to take the patient after having her screeners examine her and see if she would be able to participate. Plan to give her 80 mg IV Lasix x1 now. Diagnostic Imaging Diagonstic Imaging: Xray Plain Films/CT/US/NM/MRI: chest Comments [facility]. [place], [place] NAME: ZEKE MEDELLIN [facility] REC#: [id number] PT STATUS: REG ER : 1965 PHYSICIAN: WU HUNG MD ADMIT DATE: 04/24/21/ER Draft Date of Exam:04/24/21 CHEST 1 VIEW, AP/PA ONLY INDICATION: Shortness of air, pneumonia. COMPARISON: Exam compared to 04/22/2021. FINDINGS: Small right pleural effusion is unchanged. Some Toni Bs and interstitial opacities in the lung bases, greater left, having increased. The heart size itself is normal and there is no abnormal distention of the vascularity. IMPRESSION: 1. No substantial change in small pleural effusion however basilar interstitial opacities, greater left, have increased, edema versus pneumonia. 2. We note normal heart size and stable normal venous calibers. Dictated on workstation # [id number] Dict: 04/24/21 1006 Trans: 04/24/21 1012 AS6 [id number] Interpreted by: TOBY SON Electronically signed by: Reviewed: Reviewed by Me Departure Communication (Admissions) Time/Spoke to Admitting Phy: 11:45 Discussed the case with Dr. Diamond he agrees to observe the patient. Plan is to after we stabilize her with some Lasix send her to inpatient rehab for further therapy. Impression Primary Impression: Physical debility Additional Impressions: Acute on chronic heart failure Qualified Codes: I50.43 - Acute on chronic combined systolic (congestive) and diastolic (congestive) heart failure Acute on chronic respiratory failure with hypoxemia Disposition: ADMITTED INPATIENT Condition: Stable Admissions Decision to Admit Reason: Admit from ER (General) Decision to Admit/Date: Apr 24, 2021 Time/Decision to Admit Time: 10:45 Departure-Patient Inst. Referrals: BROOKE JOYNER DO (PCP/Family) Primary Care Physician WU HUNG Apr 24, 2021 09:13
[2021-04-24] MEDS ORDERED: NS IV 1000 ML 1,000 ML IV SCH (09:15)
[2021-04-24 09:19] LABS: BASOPHILS % (AUTO) 0 % (0-10); EOSINOPHILS # (AUTO) 0.4 10^3/uL (0.0-0.3); EOSINOPHILS % (AUTO) 4 % (0-10); HEMATOCRIT 32 % (35-52); LYMPHOCYTES # (AUTO) 1.1 10^3/uL (1.0-4.0); LYMPHOCYTES % (AUTO) 12 % (12-44); MEAN CORPUSCULAR HEMOGLOBIN 27 pg (25-34); MEAN CORPUSCULAR HGB CONC 29 g/dL (32-36); MEAN CORPUSCULAR VOLUME 93 fL (80-99); MONOCYTES # (AUTO) 0.3 10^3/uL (0.0-1.0); MONOCYTES % (AUTO) 4 % (0-12); NEUTROPHILS # (AUTO) 7.2 10^3/uL (1.8-7.8); NEUTROPHILS % (AUTO) 78 % (42-75); PLATELET COUNT 522 10^3/uL (130-400); WHITE BLOOD COUNT 9.3 10^3/uL (4.3-11.0)
[2021-04-24 09:37] LABS: ALBUMIN 3.4 GM/DL (3.2-4.5); CHLORIDE 101 MMOL/L (98-107); POTASSIUM 3.5 MMOL/L (3.6-5.0); SODIUM 145 MMOL/L (135-145)
[2021-04-24 09:38] LABS: CALCIUM 9.1 MG/DL (8.5-10.1)
[2021-04-24 09:40] LABS: GLUCOSE 109 MG/DL (70-105); TOTAL PROTEIN 6.2 GM/DL (6.4-8.2)
[2021-04-24 09:41] LABS: BILIRUBIN,TOTAL 0.5 MG/DL (0.1-1.0); CARBON DIOXIDE 32 MMOL/L (21-32)
[2021-04-24 09:43] LABS: ALKALINE PHOSPHATASE 89 U/L (40-136); CREATININE SERUM 0.84 MG/DL (0.60-1.30); GFR ESTIMATED > 60
[2021-04-24 09:44] LABS: BUN/CREATININE RATIO 15
[2021-04-24 09:46] LABS: ALANINE AMINOTRANSFERASE 17 U/L (0-55)
[2021-04-24 09:47] LABS: BILIRUBIN,URINE NEGATIVE (NEGATIVE); CLARITY,URINE CLEAR; COLOR,URINE YELLOW; GLUCOSE, URINE (UA) NEGATIVE (NEGATIVE); KETONES,URINE NEGATIVE (NEGATIVE); LEUKOCYTE ESTERASE ,URINE NEGATIVE (NEGATIVE); NITRITE,URINE NEGATIVE (NEGATIVE); PH,URINE 8.5 (5-9); PROTEIN,URINE TRACE (NEGATIVE)
[2021-04-24 09:56] LABS: BACTERIA,URINE NEGATIVE /HPF; RBC,URINE 25-50 /HPF; WBC,URINE RARE /HPF
[2021-04-24 09:57] LABS: ABG BASE EXCESS 9.8 MMOL/L (-2.5-2.5); ABG OXYGEN SATURATION 93 % (94-100); ABG PCO2 43 MMHG (35-45); ABG PO2 61 MMHG (79-93)
[2021-04-24 09:58] LABS: ALLENS TEST POSITIVE; INSPIRED O2 4 L; PATIENT TEMP 36.5; VENTILATOR NO
--- NOTE | 2021-04-24 10:13 | Diagnostic Imaging Report ---
INDICATION: Shortness of air, pneumonia. COMPARISON: Exam compared to 04/22/2021. FINDINGS: Small right pleural effusion is unchanged. Some Toni Bs and interstitial opacities in the lung bases, greater left, having increased. The heart size itself is normal and there is no abnormal distention of the vascularity. IMPRESSION: 1. No substantial change in small pleural effusion however basilar interstitial opacities, greater left, have increased, edema versus pneumonia. 2. We note normal heart size and stable normal venous calibers. Dictated by: Dictated on workstation # [id number]
[2021-04-24] MEDS ORDERED: FUROSEMIDE 40 MG/4 ML INJ (LASIX) IVP ONE (11:00)
[2021-04-24 13:01] VITALS: BP 158/91
[2021-04-24] MEDS ORDERED: ONDANSETRON 4 MG/2 ML (SDV) Z0FRAN IV PRN ×2 (14:00→18:00)
[2021-04-24] MEDS ORDERED: ACETAMINOPHEN 325 MG TABLET PO PRN ×2 (14:00→18:00)
[2021-04-24] MEDS ORDERED: ACETAMINOPHEN 650 MG SUPP (TYLENOL) PR PRN (14:00)
[2021-04-24] MEDS ORDERED: CATHETER FLUSH 10 ML SYR IV PRN (14:00)
[2021-04-24] MEDS: CATHETER FLUSH 10 ML SYR IV SCH ×2 (14:47→23:23)
[2021-04-24 15:00] VITALS: BP 158/91
[2021-04-24] MEDS ORDERED: RT-ALBUTEROL/IPRATROPIUM 3 ML (DUONEB) VIAL INH PRN (15:30)
--- NOTE | 2021-04-24 15:42 | Physical Therapy Evaluation ---
PT Evaluation-General Medical Diagnosis Admission Date Apr 24, 2021 at 12:20 Medical Diagnosis: debility Onset Date: Apr 24, 2021 Therapy Diagnosis Therapy Diagnosis: impaired mobility, strength, endurance Height/Weight Height (Feet): 5 Height (Inches): 5.00 Weight (Pounds): 218 Weight (Ounces): 0.0 Precautions Precautions/Isolations: Fall Prevention, Standard Precautions Referral Physician: Unruly Reason for Referral: Evaluation/Treatment Medical History Pertinent Medical History: Atrial Fib, Alcoholism, COPD, GERD, Heart Failure, HTN, Smoking Additional Medical History Past Medical History Surgery/Hospitalization HX: PT HAS A COPD HX. IS ON 2L VIA NC AT HOME. ALSO ON XARELTO. 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 Sexually Transmitted Disease: No HIV/AIDS: No Genitourinary: Yes (NO DIALYSIS) Renal Failure, UTI-Chronic Gastrointestinal: Yes Gastroesophageal Reflux Musculoskeletal: Yes (CHRONIC GENERALIZED PAIN ) Endocrine: Yes (HAS BEEN ON INSULIN WHEN SHE HAS HAD STEROIDS-STATES SHE IS NOT DIABETIC) HEENT: No Cancer: No Psychosocial: Yes (OPIATE ABUSE, ALCOHOL ABUSE) Bipolar, Depression Integumentary: Yes (CHRONIC LEG WOUNDS/CELLULITIS) Blood Disorders: No Reviewed History: Yes Social History Home: Single Level Current Living Status: Children Entry Into Home: Stairs Without Railing PT Steps Into Home: 2 Prior Prior Level of Function SCALE: Activities may be completed with or without assistive devices. 7-Wrgufgjgjd-jsbfovy completes the activity by him/herself with no assistance from a helper. 5-Set-up or Clean-up Assistance-helper sets up or cleans up; patient completes activity. [place] assists only prior to or following the activity. 4-Supervision or Touching Assistance-helper provides verbal cues and/or touching/steadying and/or contact guard assistance as patient completes activity. Assistance may be provided throughout the activity or intermittently. 3-Partial/Moderate Assistance-helper does LESS THAN HALF the effort. [place] lifts, holds or supports trunk or limbs, but provides less than half the effort. 2-Substantial/Maximal Assistance-helper does MORE THAN HALF the effort. [place] lifts or holds trunk or limbs and provides more than half the effort. 1-Gorvuojeo-zvadzf does ALL the effort. Patient does none of the effort to complete the activity. Or, the assistance of 2 or more helpers is required for the patient to complete the activity. If activity was not attempted, code reason: 7-Patient Refused. 9-Not Applicable-not attempted and the patient did not perform the activity before the current illness, exacerbation or injury. 10-Not Attempted due to Environmental Limitations-(lack of equipment, weather restraints, etc.). 88-Not Attempted due to Medical Conditions or Safety Concerns. Bed Mobility: 6 Transfers (B,C,W/C): 6 Gait: 6 Stairs: 6 Prior Device Use: SPC PT Evaluation-Current Subjective Patient in bed pre tx, on bedpan, agrees to PT, has 9/10 pain in her legs and feet. OT assists with rolling and cleaning from BM. Pt/Family Goals "to get stronger" Objective Patient Orientation: Person, Place, Situation Attachments: Oxygen ROM/Strength ROM Lower Extremities WNL Strength Lower Extremities unable to test due to leg pain Sensory Vision: Functional Hearing: Functional Sensation Right Lower Extremit: Impaired Sensation Left Lower Extremity: Impaired Transfers Roll Left to Right (QC): 6 Sit to Lying (QC): 4 Lying to Sitting/Side of Bed(Q: 3 Sit to Stand (QC): 4 Chair/Wfi-wa-Pynsy Xfer(QC): 4 Min assist for supine to sit, CGA for sit <-> stand and transfers Gait Does the Patient Walk?: Yes Mode of Locomotion: Walk Anticipated Mode of Locomotion: Walk Walk 10 feet (QC): 4 Walk 50 ft with 2 Turns(QC): 4 Distance: 50 Gait Assistive Device: FWW Comments/Gait Description CGA, slow but steady ambulation Balance Sitting Static: Normal Sitting Dynamic: Normal Standing Static: Fair Standing Dynamic: Fair Treatment supine BLE exercises x20 (AP, QS, HS) Assessment/Needs Patient in bed post tx with nurse call, phone, tray, all needs met. Patient has BLE weakness and impairments in functional mobility. She can stand and tra nsfers with CGA. Rehab Potential: Fair PT L Tacker Goals Mcfp Goals PT Mcfp Goals Time Frame: May 01, 2021 Roll Left & Right (QC): 6 Sit to Lying (QC): 6 Lying-Sitting on Side/Bed(QC): 6 Sit to Stand (QC): 6 Chair/Yfs-ka-Xewar Xfer(QC): 6 Walk 10 feet (QC): 5 Walk 50ft with 2 Turns (QC): 5 Walk 150 ft (QC): 5 1 Step (curb) (QC): 4 4 Steps (QC): 4 PT Plan Problem List Problem List: Activity Tolerance, Functional Strength, Safety, Balance, Gait, Transfer, Bed Mobility, ROM Treatment/Plan Treatment Plan: Continue Plan of Care Treatment Plan: Bed Mobility, Education, Functional Activity Lyn, Functional Strength, Gait, Safety, Therapeutic Exercise, Transfers Treatment Duration: May 01, 2021 Frequency: 6 times per week Estimated Hrs Per Day: .25 hour per day Patient and/or Family Agrees t: Yes Safety Risks/Education Patient Education: Gait Training, Transfer Techniques, Correct Positioning, Safety Issues Teaching Recipient: Patient Teaching Methods: Demonstration, Discussion Response to Teaching: Reinforcement Needed Discharge Recommendations Plan Patient will perform bed mobility and transfer training, balance and endurance training, functional strengthening, stair training, gait training, and education, to improve functional mobility and independence at home. Therapy Discharge Recommendati: Scheduled Assistance, Home & Family, Post Acute PT Time/GCodes Time In: 1503 Time Out: 1530 Total Billed Treatment Time: 27 Total Billed Treatment 1 visit AMARI 15' FA 12' GLENNA PRADHAN PT Apr 24, 2021 15:41
--- NOTE | 2021-04-24 15:46 | Occupational Therapy Eval ---
OT Evaluation-General/PLF Medical Diagnosis Admission Date Apr 24, 2021 at 12:20 Medical Diagnosis: Acute on chronic heart failure Onset Date: Apr 24, 2021 Therapy Diagnosis Therapy Diagnosis: Weakness Height/Weight Height (Feet): 5 Height (Inches): 5.00 Weight (Pounds): 218 Weight (Ounces): 0.0 Precautions Precautions/Isolations: Fall Prevention, Standard Precautions Weight Bear Status Weight Bearing Restriction: Weight Bearing/Tolerated Referral Physician: Dr. Tolliver Referral Reason: Activity Tolerance, Self Care, Evaluation/Treatment, Streng thening/ROM Medical History Pertinent Medical History: Atrial Fib, Alcoholism, COPD, GERD, Heart Failure, HTN, Smoking Additional Medical History CHF, Chronic kidney disease, Lymphedema, DVT Current History Pt. was in hospital recently for respiratory issues. Discharged Thursday. Pt. states that after she went home she became increasingly weaker. She fell twice yesterday, and was unable to get up. Her daughter was unable to get her up as well, and pt. had to call the police department. They got her up, and today she felt she needed to come to hospital due to severe weakness. Reviewed History: Yes Social History Home: Single Level Current Living Status: Children (Daughter) Entry Into Home: Stairs With Railing Steps Into Home: 1 ADL-Prior Level of Function SCALE: Activities may be completed with or without assistive devices. 3-Vbpdtgqrqj-ybqpxjc completes the activity by him/herself with no assistance from a helper. 5-Set-up or Clean-up Assistance-helper sets up or cleans up; patient completes activity. [place] assists only prior to or following the activity. 4-Supervision or Touching Assistance-helper provides verbal cues and/or touching/steadying and/or contact guard assistance as patient completes activity. Assistance may be provided throughout the activity or intermittently. 3-Partial/Moderate Assistance-helper does LESS THAN HALF the effort. [place] lifts, holds or supports trunk or limbs, but provides less than half the effort. 2-Substantial/Maximal Assistance-helper does MORE THAN HALF the effort. [place] lifts or holds trunk or limbs and provides more than half the effort. 7-Jgvlraaux-wjbxzw does ALL the effort. Patient does none of the effort to complete the activity. Or, the assistance of 2 or more helpers is required for the patient to complete the activity. If activity was not attempted, code reason: 7-Patient Refused. 9-Not Applicable-not attempted and the patient did not perform the activity before the current illness, exacerbation or injury. 10-Not Attempted due to Environmental Limitations-(lack of equipment, weather restraints, etc.). 88-Not Attempted due to Medical Conditions or Safety Concerns. ADL PLOF Comments Pt. states that her daughter lives with her. Her daughter assists her if needed, but she does not want to ask her daughter if she doesn't have to. Pt. uses a cane for mobility. She states that she has had difficulty with mobility, weakness, and UE mobility since a lengthy hospitalization in 2019, in which she was on a ventilator for a respiratory issue. Self Care: Needed Some Help Functional Cognition: Unknown DME/Equipment: Bath Chair, Shower DME/Equipment Comments Cane OT Current Status Subjective Pt. reports tenderness in bilateral LE. Reports 9/10 pain. Wound care nursing to assess. Appearance Pt. in bed. States that she is happy to work with therapy as she is feeling weak and is motivated to gain strength. Mental Status/Objective Patient Orientation: Person, Place, Time, Situation Current Hand Dominance: Left Upper Extremity ROM Limited in right shoulder to approximately 80 degrees. Upper Extremity Sensation Pt. reports "pins and needles" in bilateral UE. Upper Extremity Strength Approximately 2+/5 right hand/UE 3/5 Left UE ADL-Treatment On/Off Footwear (QC): 2 Toileting Hygiene (QC): 1 (Pt. using purewick, and on bedpan when therapy entered room. PT assisted with pt. rolling off bedpan and OT cleansed angela area after BM.) Other Treatments Pt. states that she is feeling very weak, but is motivated to gain strength. Agrees to work with therapy. Completed co-treatment due to fatigue, decreased ADL skills, Decreased mobility, and recurrent admissions. Pt. transferred supine-sit with min assist. Stood at bedside with CGA. Pt. ambulated in room with walker approximately 50 feet. PT facilitates transfers while OT assesses ADL skills. Pt. unable to reach feet to don slipper socks. Wound care nurse came in room to assess bottom and pt. able to maintain balance and standing with walker approximately 5 minutes. Transferred to bed with SBA. Pt. educated on importance of using BSC during the day at least for increased strength, instead of Purewick and bedpan. Pt. states that her goal is to get stronger overall and do for herself. Pt. demonstrates functional ROM in right hand, but decreased strength. Reports decreases sensation in bilateral UE. States that this has been present since hospitalization in 2019. All needs are met in room. Education OT Patient Education: Correct positioning, Modified ADL techniques, Progress toward Goal/Update tx plan, Purpose of tx/functional activities, Reviewed precautions, Rehab process, Transfer techniques Teaching Recipient: Patient Teaching Methods: Demonstration, Discussion Response to Teaching: Verbalize Understanding, Return Demonstration OT Short Term Goals Short Term Goals Time Frame: May 01, 2021 Eatin Oral hygiene: 5 Toileting hygiene: 4 Upper body dressin Lower body dressin Putting on/taking off footwear: 3 OT Farmworker Machine Goals Farmworker Machine Goals Time Frame: May 08, 2021 Eating (QC): 6 Oral Hygiene (QC): 6 Toileting Hygiene (QC): 6 Shower/Bathe Self (QC): 4 Upper Body Dressing (QC): 5 Lower Body Dressing (QC): 4 On/Off Footwear (QC): 6 Additional Goals: 1-Demonstrate ADL Tasks, 2-Verbalize Understanding, 3- ImproveStrength/Lyn 1=Demonstrate adherence to instructed precautions during ADL tasks. 2=Patient will verbalize/demonstrate understanding of assistive devices/modifications for ADL. 3=Patient will improve strength/tolerance for activity to enable patient to perform ADL's. OT Education/Plan Problem List/Assessment Assessment: Decreased Activ Tolerance, Decreased UE Strength, Dependent Transfers, Impaired Bed Mobility, Impaired I ADL's, Impaired Self-Care Skills, Restricted Funct UE ROM Discharge Recommendations Plan/Recommendations: Continue POC Therapy Discharge Recommendati: Post Acute OT Equpiment Recommendations-D/C: Hip Kit Treatment Plan/Plan of Care Treatment,Training & Education: Yes Patient would benefit from OT for education, treatment and training to promote independence in ADL's, mobility, safety and/or upper extremity function for ADL's. Plan of Care: ADL Retraining, Functional Mobility, UE Funct Exercise/Act Treatment Duration: May 08, 2021 Frequency: 5 times per week Estimated Hrs Per Day: .25 hour per day Agreement: Yes Rehab Potential: Fair Time/GCodes Start Time: 15:03 Stop Time: 15:30 Total Time Billed (hr/min): 27 Billed Treatment Time 1, EVM x 15minutes, FA x 12minutes YURI JOHNSON OT Apr 24, 2021 15:46
[2021-04-24] MEDS ORDERED: OXYC10TA7 PO (15:55)
[2021-04-24] MEDS ORDERED: LORA10TA7 PO (15:55)
[2021-04-24] MEDS ORDERED: POTA-51 PO (15:55)
[2021-04-24 16:00] VITALS: BP 149/70
[2021-04-24] MEDS: RIVAROXABAN 20 MG TABLET (XARELTO) PO SCH (17:34)
[2021-04-24] MEDS ORDERED: KCL 20 MEQ TAB (K-DUR) PO NR (18:00)
[2021-04-24] MEDS ORDERED: diphenhydrAMINE 25 MG TAB (BENADRYL) PO PRN (18:00)
[2021-04-24] MEDS ORDERED: polyethylene glycoL POWDER 17 GM (MIRALAX) PACK PO PRN (18:00)
[2021-04-24] MEDS ORDERED: BISACODYL 10 MG SUPP (DULCOLAX) PR PRN (18:00)
[2021-04-24] MEDS ORDERED: ONDANSETRON 4 MG (ZOFRAN) ORAL DISSOLVE TAB PO PRN (18:00)
[2021-04-24] MEDS ORDERED: ANTACID SUSP 30 ML UDC (MYLANTA) PO PRN (18:00)
[2021-04-24] MEDS: RT-ALBUTEROL/IPRATROPIUM 3 ML (DUONEB) VIAL INH SCH ×2 (18:20→22:00)
[2021-04-24 19:30] VITALS: BP 133/64
[2021-04-24] MEDS: GABAPENTIN 600 MG (NEURONTIN) TAB PO SCH (20:25)
[2021-04-24] MEDS: meTOprolol TARTRATE 50 MG (LOPRESSOR) TAB PO SCH (20:25)
[2021-04-24] MEDS: MICONAZOLE 2% POWDER (DESENEX AF) 90 GM TOP SCH (20:27)
[2021-04-24] MEDS ORDERED: NON-FORMULARY MEDICATION 1 EA EA (Budesonide/Glycopyr/Formoterol (Breztri Aerosphere Inhal INH SCH (21:00)
[2021-04-24] MEDS ORDERED: BUDESONIDE INH SCH (21:00)
[2021-04-24] MEDS: RT-BUDESONIDE NEBS 0.5 MG/2ML (PULMICORT) AMP INH SCH (21:53)
[2021-04-24] MEDS: RT--FLUTICASONE/SALMETEROL 232-14 (AIRDUO RespiCLICK) IH SCH (22:03)
[2021-04-25] VITALS (7 sets, daily range): BP systolic 126–158; BP diastolic 67–91
[2021-04-25] MEDS: RT-ALBUTEROL/IPRATROPIUM 3 ML (DUONEB) VIAL INH SCH ×6 (03:06→21:39)
[2021-04-25 05:21] LABS: BASOPHILS % (AUTO) 0 % (0-10); EOSINOPHILS # (AUTO) 0.6 10^3/uL (0.0-0.3); EOSINOPHILS % (AUTO) 7 % (0-10); HEMATOCRIT 27 % (35-52); HEMOGLOBIN 7.4 g/dL (11.5-16.0); LYMPHOCYTES # (AUTO) 1.4 10^3/uL (1.0-4.0); LYMPHOCYTES % (AUTO) 15 % (12-44); MEAN CORPUSCULAR HEMOGLOBIN 26 pg (25-34); MEAN CORPUSCULAR HGB CONC 28 g/dL (32-36); MEAN CORPUSCULAR VOLUME 95 fL (80-99); MEAN PLATELET VOLUME 9.2 fL (9.0-12.2); MONOCYTES # (AUTO) 0.5 10^3/uL (0.0-1.0); MONOCYTES % (AUTO) 6 % (0-12); NEUTROPHILS # (AUTO) 6.4 10^3/uL (1.8-7.8); NEUTROPHILS % (AUTO) 70 % (42-75); PLATELET COUNT 428 10^3/uL (130-400); WHITE BLOOD COUNT 9.1 10^3/uL (4.3-11.0)
[2021-04-25 05:31] LABS: POTASSIUM 3.8 MMOL/L (3.6-5.0)
[2021-04-25 05:32] LABS: CALCIUM 8.7 MG/DL (8.5-10.1)
[2021-04-25 05:36] LABS: CREATININE SERUM 1.22 MG/DL (0.60-1.30)
[2021-04-25] MEDS: CATHETER FLUSH 10 ML SYR IV SCH ×3 (05:57→23:18)
[2021-04-25] MEDS: FUROSEMIDE 40 MG/4 ML INJ (LASIX) IV SCH (06:45)
[2021-04-25] MEDS: RT-BUDESONIDE NEBS 0.5 MG/2ML (PULMICORT) AMP INH SCH ×2 (06:52→18:42)
[2021-04-25] MEDS: RT--FLUTICASONE/SALMETEROL 232-14 (AIRDUO RespiCLICK) IH SCH ×2 (06:53→21:39)
[2021-04-25] MEDS: UMECLIDINIUM BROMIDE (INCRUSE ELLIPTA) 7'S IH SCH (06:53)
[2021-04-25] MEDS: FLUoxetine HCL 10 MG (PROzac) CAPSULE/TABLET PO SCH (08:48)
[2021-04-25] MEDS: dilTIAZem120 MG (CARDIZEM CD) CAP PO SCH (08:48)
[2021-04-25] MEDS: meTOprolol TARTRATE 50 MG (LOPRESSOR) TAB PO SCH ×2 (08:48→21:08)
[2021-04-25] MEDS: MICONAZOLE 2% POWDER (DESENEX AF) 90 GM TOP SCH ×2 (08:48→21:11)
[2021-04-25] MEDS: LORATADINE (CLARITIN) 10 MG TAB PO SCH (08:48)
[2021-04-25] MEDS: ASPIRIN 81 MG CHEW (CHILDREN'S ASA) PO SCH (08:48)
[2021-04-25] MEDS: GABAPENTIN 600 MG (NEURONTIN) TAB PO SCH ×3 (08:48→21:08)
--- NOTE | 2021-04-25 09:01 | Physical Therapy Daily Note ---
PT Daily Note-Current Subjective Patient on commode pre tx, agrees to PT, has 8/10 pain in legs and feet. Patient is able to wipe herself. Appearance Patient in recliner post tx with nurse call, phone, tray, all needs met. Mental Status Patient Orientation: Person, Place, Situation Attachments: Oxygen Transfers SCALE: Activities may be completed with or without assistive devices. 2-Oqirredsug-rotlgqo completes the activity by him/herself with no assistance from a helper. 5-Set-up or Clean-up Assistance-helper sets up or cleans up; patient completes activity. [place] assists only prior to or following the activity. 4-Supervision or Touching Assistance-helper provides verbal cues and/or touching/steadying and/or contact guard assistance as patient completes activity. Assistance may be provided throughout the activity or intermittently. 3-Partial/Moderate Assistance-helper does LESS THAN HALF the effort. [place] lifts, holds or supports trunk or limbs, but provides less than half the effort. 2-Substantial/Maximal Assistance-helper does MORE THAN HALF the effort. [place] lifts or holds trunk or limbs and provides more than half the effort. 9-Nnliaanqh-cmczsj does ALL the effort. Patient does none of the effort to complete the activity. Or, the assistance of 2 or more helpers is required for the patient to complete the activity. If activity was not attempted, code reason: 7-Patient Refused. 9-Not Applicable-not attempted and the patient did not perform the activity before the current illness, exacerbation or injury. 10-Not Attempted due to Environmental Limitations-(lack of equipment, weather restraints, etc.). 88-Not Attempted due to Medical Conditions or Safety Concerns. Sit to Stand (QC): 4 Chair/Hen-ld-Qolbi Xfer(QC): 4 SBA Gait Training Distance: 180' Walk 10 feet (QC): 4 Walk 50 ft with 2 Turns(QC): 4 Walk 150 ft (QC): 4 Gait Persons Needed: 1 Gait Assistive Device: FWW SBA, slow but steady ambulation, she did have one moment of slight unsteadiness when turning but no LOB Exercises Seated Therapy Exercises: Ankle pumps, Long arc quads Seated Reps: 20 Treatments transfers, ambulation, LE strengthening Assessment Current Status: Fair Progress improving endurance, no SOB with activity PT Director Of Retention Goals Penitentiary Goals PT Director Of Retention Goals Time Frame: May 01, 2021 Roll Left & Right (QC): 6 Sit to Lying (QC): 6 Lying-Sitting on Side/Bed(QC): 6 Sit to Stand (QC): 6 Chair/Okc-lr-Vihkx Xfer(QC): 6 Walk 10 feet (QC): 5 Walk 50ft with 2 Turns (QC): 5 Walk 150 ft (QC): 5 1 Step (curb) (QC): 4 4 Steps (QC): 4 PT Plan Problem List Problem List: Activity Tolerance, Functional Strength, Safety, Balance, Gait, Transfer Treatment/Plan Treatment Plan: Continue Plan of Care Treatment Plan: Bed Mobility, Education, Functional Activity Lyn, Functional Strength, Gait, Safety, Therapeutic Exercise, Transfers Treatment Duration: May 01, 2021 Frequency: 6 times per week Estimated Hrs Per Day: .25 hour per day Patient and/or Family Agrees t: Yes Safety Risks/Education Patient Education: Gait Training, Transfer Techniques, Correct Positioning, Safety Issues Teaching Recipient: Patient Teaching Methods: Demonstration, Discussion Response to Teaching: Reinforcement Needed Time/GCodes Time In: 0834 Time Out: 0850 Total Billed Treatment Time: 16 Total Billed Treatment 1 visit FA 16' GLENNA PRADHAN PT Apr 25, 2021 09:01
--- NOTE | 2021-04-25 09:20 | Occupational Ther Daily Note ---
OT Current Status-Daily Note Subjective Pt on BSC, agreeable to OT tx. Mental Status/Objective Patient Orientation: Person, Place, Time, Situation Attachments: Oxygen ADL-Treatment Therapy Code Descriptions/Definitions Functional [place] Measure: 0=Not Assessed/NA 4=Minimal Assistance 1=Total Assistance 5=Supervision or Setup 2=Maximal Assistance 6=Modified [place] 3=Moderate Assistance 7=Complete IndependenceSCALE: Activities may be completed with or without assistive devices. 1-Asszjqdjmn-mgqsxna completes the activity by him/herself with no assistance from a helper. 5-Set-up or Clean-up Assistance-helper sets up or cleans up; patient completes activity. [place] assists only prior to or following the activity. 4-Supervision or Touching Assistance-helper provides verbal cues and/or touching/steadying and/or contact guard assistance as patient completes activity. Assistance may be provided throughout the activity or intermittently. 3-Partial/Moderate Assistance-helper does LESS THAN HALF the effort. [place] lifts, holds or supports trunk or limbs, but provides less than half the effort. 2-Substantial/Maximal Assistance-helper does MORE THAN HALF the effort. [place] lifts or holds trunk or limbs and provides more than half the effort. 6-Wqmggpvfx-wfjhhv does ALL the effort. Patient does none of the effort to complete the activity. Or, the assistance of 2 or more helpers is required for the patient to complete the activity. If activity was not attempted, code reason: 7-Patient Refused. 9-Not Applicable-not attempted and the patient did not perform the activity before the current illness, exacerbation or injury. 10-Not Attempted due to Environmental Limitations-(lack of equipment, weather restraints, etc.). 88-Not Attempted due to Medical Conditions or Safety Concerns. Eating (QC): 6 (per pt report) On/Off Footwear: 2 (Max A with donning gripper socks. Pt reports she has diff iculty with task prior to hospitalization.) Toileting Hygiene (QC): 6 (IND with hygiene) Toilet Transfer (QC): 6 (IND with toilet transfer) Other Treatment Pt seated on [facility] [place] [place], transferred from commode to EOB Independently. OT assisted pt with donning gripper socks, pt has difficulty with this task at home and avoids socks when possible. Pt used FWW to perform functional mobility around room using FWW, SBA 180'. Pt sat at recliner, OT educated pt on purpose and benefit of UE exercise, pt completed x10 reps each of the following BUES: shoulder flexion, elbow flexion, elbow extension. Pt instructed to complete throughout the day, increasing reps as tolerated, she verbalized understanding. Post tx, pt seated in recliner, call light in reach and all needs met. Education OT Patient Education: Correct positioning, Modified ADL techniques, Progress toward Goal/Update tx plan, Purpose of tx/functional activities Teaching Recipient: Patient Teaching Methods: Discussion Response to Teaching: Verbalize Understanding OT Short Term Goals Short Term Goals Time Frame: May 01, 2021 Eatin Oral hygiene: 5 Toileting hygiene: 4 Upper body dressin Lower body dressin Putting on/taking off footwear: 3 OT Pocket Flap Creasing Machine Operator Goals Pocket Flap Creasing Machine Operator Goals Time Frame: May 08, 2021 Eating (QC): 6 Oral Hygiene (QC): 6 Toileting Hygiene (QC): 6 Shower/Bathe Self (QC): 4 Upper Body Dressing (QC): 5 Lower Body Dressing (QC): 4 On/Off Footwear (QC): 6 Additional Goals: 1-Demonstrate ADL Tasks, 2-Verbalize Understanding, 3- ImproveStrength/Lyn 1=Demonstrate adherence to instructed precautions during ADL tasks. 2=Patient will verbalize/demonstrate understanding of assistive devices/modifications for ADL. 3=Patient will improve strength/tolerance for activity to enable patient to perform ADL's. OT Education/Plan Problem List/Assessment Assessment: Decreased Activ Tolerance, Decreased UE Strength, Impaired I ADL's, Impaired Self-Care Skills Discharge Recommendations Plan/Recommendations: Continue POC Treatment Plan/Plan of Care Patient would benefit from OT for education, treatment and training to promote independence in ADL's, mobility, safety and/or upper extremity function for ADL's. Plan of Care: ADL Retraining, Functional Mobility, UE Funct Exercise/Act Treatment Duration: May 08, 2021 Frequency: 5 times per week Estimated Hrs Per Day: .25 hour per day Agreement: Yes Rehab Potential: Fair Time/GCodes Start Time: 08:34 Stop Time: 08:50 Total Time Billed (hr/min): 16 Billed Treatment Time 1, ADL REECE ROSA OT Apr 25, 2021 09:20
--- NOTE | 2021-04-25 09:44 | History & Physical-Hospitalist ---
History of Present Illness HPI/Chief Complaint Helene Hicks is a 56-year-old female with past medical history of HTN, COPD, AFib, DVT, lymphedema, HFpEF, who presented with weakness. She has had multiple hospitalizations recently. She also reports having a cough. She does not feel short of breath. She denies chest pain. She denies fevers. She has been eati ng and drinking. She has been able to get up and work with physical therapy. She is currently sitting on the commode because she was given Lasix this morning. Source: patient Exam Limitations: no limitations Date Seen 04/25/21 Time Seen by a Provider: 08:30 Attending Physician Sapphire Diamond MD PCP García Hicks DO Referring Physician Date of Admission Apr 24, 2021 at 12:20 Home Medications & Allergies Home Medications Reviewed patient Home Medication Reconciliation performed by pharmacy medication reconciliations breeder service technician and/or nursing. Patients Allergies have been reviewed. Allergies Allergies Coded Allergies No Known Drug Allergies (Unverified04/29/19) Past Dutmuyu-Pfdrnt-Kikuyh Hx Patient Social History Tobacco Use?: Yes Tobacco type used: Cigarettes Smoking Status: Current Everyday Smoker Use of E-Cig and/or Vaping dev: No Substance use?: No Alcohol Use?: No Pt feels they are or have been: No Immunizations Up To Date Date of Influenza Vaccine: Jul 11, 2020 Tetanus Booster (TDap): Unknown Hepatitis A: No Hepatitis B: No Seasonal Allergies Seasonal Allergies: Yes Current Status status: No status: No Advance Directives: No Communicates: Verbally Primary Language: Malagasy Preferred Spoken Language: Malagasy Is interpretation needed?: No Sensory deficits: Vision impairment Implanted or Applied Medical D: None Past Medical History Surgeries: Hysterectomy Pneumonia, Chronic Bronchitis, COPD Atrial Fibrillation, Deep Vein Thrombosis, High Cholesterol, Hypertension Paralysis 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 Sexually Transmitted Disease: No HIV/AIDS: No Renal Failure, UTI-Chronic Gastroesophageal Reflux Bipolar, Depression Blood Disorders: No Adverse Reaction/Blood Tranf: No wound/ edema Family Medical History Cerebrovascular accident (CVA) 19 FATHER, Onset:60 years & older FH: testicular cancer G8 BROTHER, Onset:30's - 40 Hypertension 19 FATHER, Onset:Unknown 19 MOTHER, Onset:Unknown G8 BROTHER, Onset:Unknown G8 BROTHER, Onset:Unknown Myocardial infarction 19 FATHER, Onset:40's - 50 Heart Disease, Hypertension SOCIAL HISTORY: -ETOH --ABUSE/REGULAR USE -DRUGS--LONG HISTORY OF OPIATE ABUSE -SMOKES 2 PPD ADDITIONAL PMH: -12/14/2020-TRANSFERRED TO [facility] FOR [facility]PT[facility] WITH ACUTE RENAL FAILURE DUE TO CELLULITIS OF LEGS. -02/03/21-TRANSFERRED TO [facility] FOR SEPSIS WITH ACUTE RENAL FAILURE, ALSO DUE TO CELLULITIS OF LEGS. -ADMITTED AND INTUBATED X 1 MONTH IN SEPTEMBER 2019 FOR BILATERAL PNEUMONIA AND ARDS. HISTORY OF OPIATE ABUSE/ADDICTION--HAS BEEN ON SUBOXONE, BUT STATES SHE CANNOT AFFORD IT AND IS NO LONGER TAKING IT OF 03/11/21 Review of Systems Constitutional: weakness EENTM: no symptoms reported Respiratory: cough Cardiovascular: no symptoms reported Gastrointestinal: no symptoms reported Genitourinary: no symptoms reported Musculoskeletal: no symptoms reported Skin: no symptoms reported Psychiatric/Neurological: No Symptoms Reported Physical Exam Physical Exam Vital Signs Vital Signs - First Documented 04/24/21 04/24/21 04/24/21 09:01 12:51 13:01 Temp 36.5 Pulse 90 Resp 18 B/P (MAP) 161/86 (111) Pulse Ox 98 O2 Delivery Room Air O2 Flow Rate 3.50 Capillary Refill : Height, Weight, BMI Height: 5'5.00" Weight: 218lbs. 0.0oz. [id number]; 35.62 BMI Method:Stated General Appearance: No Apparent Distress, Chronically ill, Obese HEENT: PERRL/EOMI, Pharynx Normal Neck: Normal Inspection, Supple Respiratory: Lungs Clear, Normal Breath Sounds, No Respiratory Distress Cardiovascular: Regular Rate, Rhythm, No Murmur Gastrointestinal: Normal Bowel Sounds, Non Tender, Soft Extremity: Normal Inspection, Pedal Edema Neurologic/Psychiatric: Alert, Oriented x3, Normal Mood/Affect, Motor Weakness Skin: Normal Color, Warm/Dry Results Results/Procedures Labs Laboratory Tests 04/24/21 09:11 04/25/21 05:05 Patient resulted labs reviewed. Imaging: Reviewed Imaging Report Assessment/Plan Admission Diagnosis Debility Admission Status: Observation Assessment and Plan Debility Recurrent hospitalizations PT/OT IRU evaluation, awaiting insurance approval HFpEF Acute on chronic respiratory failure with hypoxia Lasix Home oxygen evaluation to reassess baseline Iron deficiency anemia Hgb 7.4 Infed infusion Needs colonoscopy outpatient AFib COPD HTN Continue home meds Obesity Clinically significant, no acute management needs DVT prophylaxis: Already receiving therapeutic anticoagulation Diagnosis/Problems Diagnosis/Problems (1) Debility Status: Acute (2) History of recent hospitalization Status: Acute (3) CHF (congestive heart failure) Status: Chronic Qualifiers: Heart failure type: diastolic Heart failure chronicity: chronic Qualified Codes: I50.32 - Chronic diastolic (congestive) heart failure (4) Lymphedema of both lower extremities Status: Chronic (5) Paroxysmal A-fib Status: Chronic SAPPHIRE DIAMOND MD Apr 25, 2021 09:44
[2021-04-25] MEDS ORDERED: NS IV 500 ML 500 ML IV SCH (09:45)
[2021-04-25] MEDS ORDERED: diphenhydrAMINE 50 MG/ML INJ (BENADRYL) IV PRN (09:45)
[2021-04-25] MEDS ORDERED: IRON DEXTRAN INJECTION 1,000 MG in NS (IVPB) 250 ML IV ONE (09:45)
[2021-04-25] MEDS ORDERED: RT-ALBUTEROL SULF 2.5 MG/3 ML PRE-MIX VIAL IH PRN (09:45)
[2021-04-25] MEDS ORDERED: HYDROCORTISONE 100 MG/2 ML (Solu-CORTEF) VIAL IV PRN (09:45)
[2021-04-25] MEDS ORDERED: EPINEPHrine INJECTION 1 MG/ML AMP IM PRN (09:45)
[2021-04-25] MEDS ORDERED: IRON DEXTRAN INJECTION 25 MG in NS (IVPB) 5.75 ML IV ONE (09:45)
[2021-04-25] MEDS: RIVAROXABAN 20 MG TABLET (XARELTO) PO SCH (17:07)
[2021-04-25] MEDS: MELATONIN 3 MG TABLET PO PRN (21:08)
[2021-04-26] VITALS (7 sets, daily range): BP systolic 107–147; BP diastolic 62–80
[2021-04-26] MEDS: CATHETER FLUSH 10 ML SYR IV SCH ×3 (06:32→22:05)
[2021-04-26] MEDS: FUROSEMIDE 40 MG/4 ML INJ (LASIX) IV SCH (06:32)
[2021-04-26] MEDS: UMECLIDINIUM BROMIDE (INCRUSE ELLIPTA) 7'S IH SCH (07:00)
[2021-04-26] MEDS: RT--FLUTICASONE/SALMETEROL 232-14 (AIRDUO RespiCLICK) IH SCH ×2 (07:02→19:55)
[2021-04-26 07:45] LABS: BASOPHILS % (AUTO) 0 % (0-10); EOSINOPHILS # (AUTO) 0.8 10^3/uL (0.0-0.3); EOSINOPHILS % (AUTO) 8 % (0-10); HEMATOCRIT 33 % (35-52); LYMPHOCYTES # (AUTO) 1.7 10^3/uL (1.0-4.0); LYMPHOCYTES % (AUTO) 17 % (12-44); MEAN CORPUSCULAR HEMOGLOBIN 27 pg (25-34); MEAN CORPUSCULAR HGB CONC 28 g/dL (32-36); MEAN CORPUSCULAR VOLUME 97 fL (80-99); MEAN PLATELET VOLUME 9.4 fL (9.0-12.2); MONOCYTES # (AUTO) 0.5 10^3/uL (0.0-1.0); MONOCYTES % (AUTO) 5 % (0-12); NEUTROPHILS # (AUTO) 6.9 10^3/uL (1.8-7.8); NEUTROPHILS % (AUTO) 69 % (42-75); PLATELET COUNT 439 10^3/uL (130-400)
[2021-04-26 07:48] LABS: POTASSIUM 3.7 MMOL/L (3.6-5.0)
[2021-04-26 07:49] LABS: CALCIUM 9.6 MG/DL (8.5-10.1)
[2021-04-26 07:53] LABS: CREATININE SERUM 1.11 MG/DL (0.60-1.30)
[2021-04-26] MEDS: dilTIAZem120 MG (CARDIZEM CD) CAP PO SCH (08:09)
[2021-04-26] MEDS: ASPIRIN 81 MG CHEW (CHILDREN'S ASA) PO SCH (08:09)
[2021-04-26] MEDS: FLUoxetine HCL 10 MG (PROzac) CAPSULE/TABLET PO SCH (08:09)
[2021-04-26] MEDS: GABAPENTIN 600 MG (NEURONTIN) TAB PO SCH ×3 (08:10→22:03)
[2021-04-26] MEDS: MICONAZOLE 2% POWDER (DESENEX AF) 90 GM TOP SCH ×2 (08:10→22:04)
[2021-04-26] MEDS: LORATADINE (CLARITIN) 10 MG TAB PO SCH (08:10)
[2021-04-26] MEDS: meTOprolol TARTRATE 50 MG (LOPRESSOR) TAB PO SCH ×2 (08:10→22:03)
[2021-04-26] MEDS: RT-ALBUTEROL/IPRATROPIUM 3 ML (DUONEB) VIAL INH SCH ×3 (09:51→18:26)
[2021-04-26] MEDS: RT-BUDESONIDE NEBS 0.5 MG/2ML (PULMICORT) AMP INH SCH ×2 (10:02→19:55)
[2021-04-26] MEDS: FUROSEMIDE 40 MG (LASIX) TAB PO SCH (10:03)
--- NOTE | 2021-04-26 10:44 | Physical Therapy Daily Note ---
PT Daily Note-Current Subjective Patient in bed pre tx, agrees to PT, has 9/10 pain in both legs. Patient has been bleeding not only from her legs but other places too, gown changed. Appearance Patient in bed post tx with nurse call, phone, tray, all needs met. Mental Status Patient Orientation: Person, Place, Situation Attachments: Oxygen Transfers SCALE: Activities may be completed with or without assistive devices. 2-Zolsdnupuz-jxyxskf completes the activity by him/herself with no assistance from a helper. 5-Set-up or Clean-up Assistance-helper sets up or cleans up; patient completes activity. [place] assists only prior to or following the activity. 4-Supervision or Touching Assistance-helper provides verbal cues and/or touching/steadying and/or contact guard assistance as patient completes activity. Assistance may be provided throughout the activity or intermittently. 3-Partial/Moderate Assistance-helper does LESS THAN HALF the effort. [place] lifts, holds or supports trunk or limbs, but provides less than half the effort. 2-Substantial/Maximal Assistance-helper does MORE THAN HALF the effort. [place] l ifts or holds trunk or limbs and provides more than half the effort. 2-Kgrjczhyt-rukoij does ALL the effort. Patient does none of the effort to complete the activity. Or, the assistance of 2 or more helpers is required for the patient to complete the activity. If activity was not attempted, code reason: 7-Patient Refused. 9-Not Applicable-not attempted and the patient did not perform the activity before the current illness, exacerbation or injury. 10-Not Attempted due to Environmental Limitations-(lack of equipment, weather restraints, etc.). 88-Not Attempted due to Medical Conditions or Safety Concerns. Roll Left & Right (QC): 6 Sit to Lying (QC): 6 Lying to Sitting/Side of Bed(Q: 6 Sit to Stand (QC): 5 Chair/Bnj-gc-Mtfgg Xfer(QC): 5 Gait Training Distance: 400' Walk 10 feet (QC): 4 Walk 50 ft with 2 Turns(QC): 4 Walk 150 ft (QC): 4 Gait Persons Needed: 1 Gait Assistive Device: FWW SBA, slow ambulation, patient did have one moment of unsteadiness but no LOB, occasionally states she feels unsteady Treatments ambulation, transfers Assessment Current Status: Fair Progress improving endurance, patient states she is tired after ambulation PT Software Qa Manager Goals Shelter Goals PT Shelter Goals Time Frame: May 01, 2021 Roll Left & Right (QC): 6 Sit to Lying (QC): 6 Lying-Sitting on Side/Bed(QC): 6 Sit to Stand (QC): 6 Chair/Ewg-le-Jduum Xfer(QC): 6 Walk 10 feet (QC): 5 Walk 50ft with 2 Turns (QC): 5 Walk 150 ft (QC): 5 1 Step (curb) (QC): 4 4 Steps (QC): 4 PT Plan Problem List Problem List: Activity Tolerance, Functional Strength, Safety, Balance, Gait, Transfer, Bed Mobility, ROM Treatment/Plan Treatment Plan: Continue Plan of Care Treatment Plan: Bed Mobility, Education, Functional Activity Lyn, Functional Strength, Gait, Safety, Therapeutic Exercise, Transfers Treatment Duration: May 01, 2021 Frequency: 6 times per week Estimated Hrs Per Day: .25 hour per day Patient and/or Family Agrees t: Yes Safety Risks/Education Patient Education: Gait Training, Transfer Techniques, Correct Positioning, Safety Issues Teaching Recipient: Patient Teaching Methods: Demonstration, Discussion Response to Teaching: Reinforcement Needed Time/GCodes Time In: 1013 Time Out: 1032 Total Billed Treatment Time: 19 Total Billed Treatment 1 visit GT 19' GLENNA PRADHAN PT Apr 26, 2021 10:43
--- NOTE | 2021-04-26 13:24 | Occupational Ther Daily Note ---
OT Current Status-Daily Note Subjective Pt seated up on EOB, agreeable to OT tx. Mental Status/Objective Patient Orientation: Person, Place, Time, Situation ADL-Treatment Therapy Code Descriptions/Definitions Functional [place] Measure: 0=Not Assessed/NA 4=Minimal Assistance 1=Total Assistance 5=Supervision or Setup 2=Maximal Assistance 6=Modified [place] 3=Moderate Assistance 7=Complete IndependenceSCALE: Activities may be completed with or without assistive devices. 0-Xtmqtnapgw-brcgffp completes the activity by him/herself with no assistance from a helper. 5-Set-up or Clean-up Assistance-helper sets up or cleans up; patient completes activity. [place] assists only prior to or following the activity. 4-Supervision or Touching Assistance-helper provides verbal cues and/or touching/steadying and/or contact guard assistance as patient completes activity. Assistance may be provided throughout the activity or intermittently. 3-Partial/Moderate Assistance-helper does LESS THAN HALF the effort. [place] lifts, holds or supports trunk or limbs, but provides less than half the effort. 2-Substantial/Maximal Assistance-helper does MORE THAN HALF the effort. [place] lifts or holds trunk or limbs and provides more than half the effort. 1-Fpjpinaqn-tcwgyq does ALL the effort. Patient does none of the effort to complete the activity. Or, the assistance of 2 or more helpers is required for the patient to complete the activity. If activity was not attempted, code reason: 7-Patient Refused. 9-Not Applicable-not attempted and the patient did not perform the activity before the current illness, exacerbation or injury. 10-Not Attempted due to Environmental Limitations-(lack of equipment, weather restraints, etc.). 88-Not Attempted due to Medical Conditions or Safety Concerns. Eating (QC): 6 (Per pt report) Oral Hygiene (QC): 6 (Per pt report.) Shower/Bathe Self (QC): 7 Toileting Hygiene (QC): 6 (IND with hygiene) Toilet Transfer (QC): 6 (IND transfer to[place]from [facility] Other Treatment Pt seated EOB, agreeable to OT tx. Pt declined ADL tx at this time, stating she had already brushed her teeth and did not need to toilet. In order to increase BUE strength and activity tolerance, OT educated pt on UE exercises using moderate resistance theraband. Pt completed 5/5 exercises, with rest breaks between, x10 reps each. Pt instructed to complete throughout the day, increasing reps as tolerated, she verbalized understanding. Post tx, pt seated at EOB, call light in reach and all needs met. Education OT Patient Education: Correct positioning, Modified ADL techniques, Progress toward Goal/Update tx plan, Purpose of tx/functional activities, Rehab process Teaching Recipient: Patient Teaching Methods: Discussion Response to Teaching: Verbalize Understanding OT Short Term Goals Short Term Goals Time Frame: May 01, 2021 Eatin Oral hygiene: 5 Toileting hygiene: 4 Upper body dressin Lower body dressin Putting on/taking off footwear: 3 OT Prison Goals Prison Goals Time Frame: May 08, 2021 Eating (QC): 6 Oral Hygiene (QC): 6 Toileting Hygiene (QC): 6 Shower/Bathe Self (QC): 4 Upper Body Dressing (QC): 5 Lower Body Dressing (QC): 4 On/Off Footwear (QC): 6 Additional Goals: 1-Demonstrate ADL Tasks, 2-Verbalize Understanding, 3-Imp roveStrength/Lyn 1=Demonstrate adherence to instructed precautions during ADL tasks. 2=Patient will verbalize/demonstrate understanding of assistive devices/modifications for ADL. 3=Patient will improve strength/tolerance for activity to enable patient to perform ADL's. OT Education/Plan Problem List/Assessment Assessment: Decreased Activ Tolerance, Decreased UE Strength, Impaired I ADL's, Impaired Self-Care Skills Discharge Recommendations Plan/Recommendations: Continue POC Treatment Plan/Plan of Care Patient would benefit from OT for education, treatment and training to promote independence in ADL's, mobility, safety and/or upper extremity function for A DL's. Plan of Care: ADL Retraining, Functional Mobility, UE Funct Exercise/Act Treatment Duration: May 08, 2021 Frequency: 5 times per week Estimated Hrs Per Day: .25 hour per day Agreement: Yes Rehab Potential: Fair Time/GCodes Start Time: 11:15 Stop Time: 11:35 Total Time Billed (hr/min): 20 Billed Treatment Time 1, EX REECE ROSA OT Apr 26, 2021 13:24
--- NOTE | 2021-04-26 13:51 | Progress Note - Hospitalist ---
Subjective HPI/CC On Admission Date Seen by Provider: Apr 26, 2021 Time Seen by Provider: 09:35 Helene Hicks is a 56-year-old female with past medical history of HTN, COPD, AFib, DVT, lymphedema, HFpEF, who presented with weakness. She has had multiple hospitalizations recently. She also reports having a cough. She does not feel short of breath. She denies chest pain. She denies fevers. She has been eating and drinking. She has been able to get up and work with physical therapy. She is currently sitting on the commode because she was given Lasix this morning. Subjective/Events-last exam She continues to feel weak. She denies any shortness of breath. She has been up and work with physical therapy. Objective Exam Vital Signs Vital Signs Date Time Temp Pulse Resp B/P (MAP) Pulse Ox O2 Delivery O2 Flow Rate FiO2 04/26/21 12:52 74 04/26/21 10:50 90 2.00 86 04/26/21 09:52 Nasal Cannula 04/26/21 08:00 36.1 18 145/72 (96) Capillary Refill : General Appearance: No Apparent Distress, Chronically ill Respiratory: Lungs Clear, Normal Breath Sounds, No Respiratory Distress Cardiovascular: Regular Rate, Rhythm, No Murmur Gastrointestinal: Normal Bowel Sounds, Non Tender, Soft Extremity: Normal Inspection, Non Tender, Pedal Edema Neurologic/Psychiatric: Alert, Oriented x3, Normal Mood/Affect, Motor Weakness Skin: Normal Color, Warm/Dry Results/Procedures Lab Laboratory Tests 04/26/21 07:35 Patient resulted labs reviewed. Imaging: Reviewed Imaging Report Assessment/Plan Assessment and Plan Assess & Plan/Chief Complaint Debility Recurrent hospitalizations PT/OT IRU accepted, transfer tomorroww HFpEF Acute on chronic respiratory failure with hypoxia Lasix Iron deficiency anemia Hgb 9 s/p Infed infusion Needs colonoscopy outpatient AFib COPD HTN Continue home meds Obesity Clinically significant, no acute management needs DVT prophylaxis: Already receiving therapeutic anticoagulation Diagnosis/Problems Diagnosis/Problems (1) Debility Status: Acute (2) History of recent hospitalization Status: Acute (3) CHF (congestive heart failure) Status: Chronic Qualifiers: Heart failure type: diastolic Heart failure chronicity: chronic Qualified Codes: I50.32 - Chronic diastolic (congestive) heart failure (4) Lymphedema of both lower extremities Status: Chronic (5) Paroxysmal A-fib Status: Chronic DARA,ACE M MD Apr 26, 2021 13:51
[2021-04-26] MEDS ORDERED: ACETAMINOPHEN 500 MG TAB (TYLENOL) ONE (14:32)
[2021-04-26] MEDS: RIVAROXABAN 20 MG TABLET (XARELTO) PO SCH (16:56)
[2021-04-26] MEDS: MELATONIN 3 MG TABLET PO PRN (22:02)
[2021-04-27 00:39] VITALS: BP 107/67
[2021-04-27 04:05] VITALS: BP 121/69
[2021-04-27] MEDS: CATHETER FLUSH 10 ML SYR IV SCH (05:22)
[2021-04-27 08:05] VITALS: BP 119/57
[2021-04-27] MEDS: RT-BUDESONIDE NEBS 0.5 MG/2ML (PULMICORT) AMP INH SCH (08:25)
[2021-04-27] MEDS: RT-ALBUTEROL/IPRATROPIUM 3 ML (DUONEB) VIAL INH SCH ×2 (08:25→11:15)
[2021-04-27] MEDS: UMECLIDINIUM BROMIDE (INCRUSE ELLIPTA) 7'S IH SCH (08:28)
[2021-04-27] MEDS: RT--FLUTICASONE/SALMETEROL 232-14 (AIRDUO RespiCLICK) IH SCH (08:29)
--- NOTE | 2021-04-27 08:40 | Discharge Summary ---
Discharge Summary Hospital Course Was the Problem List Reviewed?: Yes Problems/Dx: (1) Debility Status: Acute (2) History of recent hospitalization Status: Acute (3) CHF (congestive heart failure) Status: Chronic Qualifiers: Qualified Codes: I50.32 - Chronic diastolic (congestive) heart failure (4) Lymphedema of both lower extremities Status: Chronic (5) Paroxysmal A-fib Status: Chronic Hospital Course Date of Admission: Apr 24, 2021 at 12:20 Admission Diagnosis: Acute on chronic heart failure with preserved ejection fraction Family Physician/Provider: García Hicks DO Date of Discharge: 04/27/21 Discharge Diagnosis: Acute on chronic heart failure with preserved ejection fraction, acute on chronic respiratory failure with hypoxia, debility Hospital Course: Helene Hicks is a 56-year-old female with several recent hospitalizations who presented with weakness and shortness of breath. She was treated with IV Lasix for acute on chronic heart failure with preserved ejection fraction. Her oxygen requirement quickly returned to her baseline 2 L. She was also suffering from a debility due to her recurrent hospitalizations. She had been set up with home health on her previous discharges. She was evaluated by the inpatient rehabilitation unit and accepted. She will be transferred to the inpatient rehabilitation unit for ongoing therapy needs. She was discharged in stable condition. Labs and Pending Lab Test: Home Meds Active Reported Loratadine 10 Mg Tablet 10 Mg PO DAILY Potassium Chloride 20 Meq Tablet.er 20 Meq PO DAILY Oxycodone HCl 10 Mg Tablet 10 Mg PO Q4H PRN Xarelto (Rivaroxaban) 20 Mg Tablet 20 Mg PO DAILY LAST FILLED 03-12-2021 #30/30 [facility] Prozac (Fluoxetine HCl) 10 Mg Capsule 10 Mg PO DAILY Breztri Aerosphere Inhaler (Budesonide/Glycopyr/Formoterol) 10.7 Gm Hfa.aer.ad 2 Puff INH BID Albuterol Sulfate 1.25 Mg/3 Ml Vial.neb 3 Ml INH Q6H PRN Ventolin Hfa (Albuterol Sulfate) 1 Puff Puff 2 Puff INH Q4H PRN Cartia Xt (Diltiazem HCl) 120 Mg Cap.er.24h 120 Mg PO DAILY Budesonide 1 Mg/2 Ml Ampul.neb 2 Ml INH BID Furosemide 80 Mg Tablet 80 Mg PO DAILY Lisinopril 10 Mg Tablet 10 Mg PO DAILY PRN Metoprolol Tartrate 100 Mg Tablet 50-100 Mg PO BID DEPENDING ON REAL TIME READING PATIENT WILL TAKE BETWEEN TO 1 TABLET TWICE DAILY Aspirin 81 Mg Tab.chew 81 Mg PO DAILY Gabapentin 600 Mg Tablet 600 Mg PO TID Assessment/Pt Instructions Patient transferred to inpatient rehabilitation unit Discharge Planning: <30 minutes discharge planning Discharge Instructions Discharge Diet: Low Sodium Diet Activity as Tolerated: Yes Discharge Physical Examination Vital Signs Vital Signs Date Time Temp Pulse Resp B/P (MAP) Pulse Ox O2 Delivery O2 Flow Rate FiO2 04/27/21 08:35 96 Nasal Cannula 3.00 04/27/21 07:00 87 04/27/21 04:05 37.6 18 121/69 (86) General Appearance: No Apparent Distress, Chronically ill, Obese Respiratory: Lungs Clear, Normal Breath Sounds, No Respiratory Distress Cardiovascular: Regular Rate, Rhythm, No Murmur Gastrointestinal: Normal Bowel Sounds, Non Tender, Soft Extremity: Inflammation, Pedal Edema Skin: Normal Color, Warm/Dry Neurologic/Psychiatric: Alert, Oriented x3, Normal Mood/Affect, Motor Weakness Allergies: Coded Allergies: No Known Drug Allergies (Unverified , 04/29/19) Discharge Summary Date of Admission Apr 24, 2021 at 12:20 Date of Discharge Discharge Date: Apr 27, 2021 Discharge Time: 08:37 Admission Diagnosis Debility Discharge Diagnosis Debility Recurrent hospitalizations Acute on chronic HFpEF Acute on chronic respiratory failure with hypoxia (1) Debility Status: Acute (2) History of recent hospitalization Status: Acute (3) CHF (congestive heart failure) Status: Chronic Qualifiers: Qualified Codes: I50.32 - Chronic diastolic (congestive) heart failure (4) Lymphedema of both lower extremities Status: Chronic (5) Paroxysmal A-fib Status: Chronic ACE DIAMOND MD Apr 27, 2021 08:40
[2021-04-27 09:00] VITALS: BP 119/57
[2021-04-27] MEDS: FLUoxetine HCL 10 MG (PROzac) CAPSULE/TABLET PO SCH (09:10)
[2021-04-27] MEDS: dilTIAZem120 MG (CARDIZEM CD) CAP PO SCH (09:11)
[2021-04-27] MEDS: ASPIRIN 81 MG CHEW (CHILDREN'S ASA) PO SCH (09:11)
[2021-04-27] MEDS: FUROSEMIDE 40 MG (LASIX) TAB PO SCH (09:11)
[2021-04-27] MEDS: LORATADINE (CLARITIN) 10 MG TAB PO SCH (09:11)
[2021-04-27] MEDS: GABAPENTIN 600 MG (NEURONTIN) TAB PO SCH (09:11)
[2021-04-27] MEDS: meTOprolol TARTRATE 50 MG (LOPRESSOR) TAB PO SCH (09:11)
== END 2021-04-27 06:11 ==
LOC: ER 09:00 → EDUNIT# 09:04 → UNDOADMOB 12:20 → 4TH 12:20 → UNDODISOB 04-27 09:58
PROVIDERS: ADMIT Internal Medicine; ATTEND Internal Medicine
DX: I13.0 Hypertensive heart and chronic kidney disease with heart failure and stage 1 through stage 4 chronic kidney disease, or unspecified chronic kidney disease (principal); I50.43 Acute on chronic combined systolic (congestive) and diastolic (congestive) heart failure; N18.9 Chronic kidney disease, unspecified; I48.0 Paroxysmal atrial fibrillation; R53.81 Other malaise; I89.0 Lymphedema, not elsewhere classified; J44.9 Chronic obstructive pulmonary disease, unspecified; E78.00 Pure hypercholesterolemia, unspecified; K21.9 Gastro-esophageal reflux disease without esophagitis; F31.9 Bipolar disorder, unspecified; F17.210 Nicotine dependence, cigarettes, uncomplicated; N39.0 Urinary tract infection, site not specified; Z79.51 Long term (current) use of inhaled steroids; Z79.82 Long term (current) use of aspirin; Z79.899 Other long term (current) drug therapy
CPT/HCPCS: 71045; 80048 ×2; 80053; 81000; 82805; 83880; 85025 ×3; 86141; 94010; 94640 ×8; 94760 ×2; 94761; 96374; 97110; 97116; 97166; 97530 ×2; 97535; 99284; G0378; 36415

== ENCOUNTER 2021-04-27 10:34 | Inpatient (IN) | payer BC, MEDICAID ==
[~2021-04-27] VITALS: Ht 165.1 cm; Wt 92.4 kg
[2021-04-27 09:45] VITALS: BP 141/71
--- NOTE | 2021-04-27 10:18 | Occupational Therapy Eval ---
OT Evaluation-General/PLF Medical Diagnosis Admission Date Medical Diagnosis: debility Onset Date: Apr 24, 2021 Therapy Diagnosis Therapy Diagnosis: decreased ADL status, weakness Height/Weight Height (Feet): 5 Height (Inches): 5.00 Weight (Pounds): 218 Weight (Ounces): 0.0 Referral Physician: Sully Belle Reason: Evaluation/Treatment Medical History Pertinent Medical History: Atrial Fib, Alcoholism, COPD, GERD, Heart Failure, HTN, Smoking Additional Medical History CHF, Chronic kidney disease, Lymphedema, DVT Current History Pt recently hospitalized with respiratory issues. After returning home, she became increasingly weaker, falling twice and unable to get up. Pt's daughter was unable ot get her up, calling police department. They got her up and she felt the need to come to hospital due to severe weakness. 04/27/21 pt admitted to ARU for continued medication management and skilled therapy. Social History Home: Single Level Current Living Status: Children (daughter) Entry Into Home: Stairs With Railing Steps Into Home: 1 ADL-Prior Level of Function SCALE: Activities may be completed with or without assistive devices. 4-Qjijyzdtkk-azbactg completes the activity by him/herself with no assistance from a helper. 5-Set-up or Clean-up Assistance-helper sets up or cleans up; patient completes activity. [place] assists only prior to or following the activity. 4-Supervision or Touching Assistance-helper provides verbal cues and/or touching/steadying and/or contact guard assistance as patient completes activity. Assistance may be provided throughout the activity or intermittently. 3-Partial/Moderate Assistance-helper does LESS THAN HALF the effort. [place] lifts, holds or supports trunk or limbs, but provides less than half the effort. 2-Substantial/Maximal Assistance-helper does MORE THAN HALF the effort. [place] lifts or holds trunk or limbs and provides more than half the effort. 0-Gjddbeuga-muyfbl does ALL the effort. Patient does none of the effort to complete the activity. Or, the assistance of 2 or more helpers is required for the patient to complete the activity. If activity was not attempted, code reason: 7-Patient Refused. 9-Not Applicable-not attempted and the patient did not perform the activity before the current illness, exacerbation or injury. 10-Not Attempted due to Environmental Limitations-(lack of equipment, weather restraints, etc.). 88-Not Attempted due to Medical Conditions or Safety Concerns. ADL PLOF Comments Pt indicates IND with ADLs and functional mobility at PLOF, using cane. Her daughter is able to help if needed, but pt doesn't want to have her daughters help unless needed. Self Care: Independent Functional Cognition: Independent DME/Equipment: Bath Chair, Shower DME/Equipment Comments cane OT Current Status Subjective Pt laying in bed, agreeable to OT tx. She does not report any pain. Mental Status/Objective Patient Orientation: Person, Place, Time, Situation Attachments: Oxygen (3L) Current Glasses/Contacts: Yes Hand Dominance: Left Upper Extremity ROM WFL, BUE shoulder flexion to approx 140 degrees Upper Extremity Coordination decreased coordination R hand Upper Extremity Sensation tingling/numbness in RUE from elbow to fingers, tingling/numbness L hand Upper Extremity Strength BUE grossly 3+/5 ADL-Treatment Eating (QC): 6 (IND eating sandwich) Oral Hygiene (QC): 5 (based on clincial judgement, set up assist) Shower/Bathe Self (QC): 7 Upper Body Dressing (QC): 7 Lower Body Dressing (QC): 7 On/Off Footwear (QC): 5 (set up assist with gripper socks.) Toileting Hygiene (QC): 6 (IND with toileting, able to perform hygiene and manage clothing) Other Treatments Pt laying in bed finishing a sandwich, then transferred supine to sit EOB independently, then transferred to BSC beside bed independently. She completed toileting, then transferred to w/c. Pt able to doff/don gripper socks independently. Pt taken around ARU common area, with education provided on ARU expectations and process. Pt transferred back to bed, then supine.Post tx, pt laying in bed, call light in reach and all needs met. Education OT Patient Education: Correct positioning, Modified ADL techniques, Progress toward Goal/Update tx plan, Purpose of tx/functional activities, Rehab process, Transfer techniques Teaching Recipient: Patient Teaching Methods: Discussion Response to Teaching: Verbalize Understanding OT Short Term Goals Short Term Goals Time Frame: May 08, 2021 Shower/bathe self: 4 Upper body dressin Lower body dressin OT Centrifugal Casting Machine Tender Goals Centrifugal Casting Machine Tender Goals Time Frame: May 18, 2021 Eating (QC): 6 Oral Hygiene (QC): 6 Toileting Hygiene (QC): 6 Shower/Bathe Self (QC): 6 Upper Body Dressing (QC): 6 Lower Body Dressing (QC): 6 On/Off Footwear (QC): 6 Additional Goals: 1-Demonstrate ADL Tasks, 2-Verbalize Understanding, 3-Impr oveStrength/Lyn 1=Demonstrate adherence to instructed precautions during ADL tasks. 2=Patient will verbalize/demonstrate understanding of assistive devices/modifications for ADL. 3=Patient will improve strength/tolerance for activity to enable patient to perform ADL's. OT Education/Plan Problem List/Assessment Assessment: Decreased Activ Tolerance, Decreased UE Strength, Impaired Funct Balance, Impaired I ADL's, Impaired Self-Care Skills, Restricted Funct UE ROM Discharge Recommendations Plan/Recommendations: Continue POC Treatment Plan/Plan of Care Treatment,Training & Education: Yes Patient would benefit from OT for education, treatment and training to promote independence in ADL's, mobility, safety and/or upper extremity function for ADL's. Plan of Care: ADL Retraining, Functional Mobility, Group Exercise/Act as Ind, UE Funct Exercise/Act Treatment Duration: May 18, 2021 Frequency: At least 5 of 7 days/Wk (IRF) Estimated Hrs Per Day: 1.5 hours per day Agreement: Yes Rehab Potential: Good Time/GCodes Start Time: 09:45 Stop Time: 10:10 Total Time Billed (hr/min): 25 Billed Treatment Time 1, EVM (10'), ADL (15') REECE ROSA OT Apr 27, 2021 10:18
[~2021-04-27 10:34] MED LIST changes: +ACETAMINOPHEN 325 MG TABLET PO PRN; +BISACODYL 10 MG SUPP (DULCOLAX) PR PRN; +CALCIUM CARBONATE 500 MG (TUMS) TAB.CHEW PO PRN; +DOCUSATE SODIUM 100 MG (COLACE) CAP PO PRN; +FLEET ENEMA ADULT 1 EA BTL PR PRN; +LACTULOSE SYRUP 10GM/15ML (ENULOSE) 30ML UDC PO PRN; +LOPERAMIDE 2 MG (IMODIUM) TABLET PO PRN; +diphenhydrAMINE 25 MG TAB (BENADRYL) PO PRN; +guaiFENesin/CODEINE (ROBITUSSIN AC) 10ML UDC PO PRN
[2021-04-27] MEDS: polyethylene glycoL POWDER 17 GM (MIRALAX) PACK PO SCH ×2 (10:58→22:34)
[2021-04-27] MEDS: DOCUSATE SODIUM 100 MG (COLACE) CAP PO SCH ×2 (10:58→22:34)
[2021-04-27] MEDS: SENNA W/DOCUSATE (SENOKOT S) TABLET PO SCH ×2 (10:58→22:34)
--- NOTE | 2021-04-27 11:24 | PM&R Post Admission Assessment ---
PM&R HP Date of Visit: Apr 27, 2021 Time of Visit: 11:00 History of Present Illness CC: Debility HPI: This is a 56yoWF who has had multiple hospital stays who presented to the npatient rehab for severe debility for COPD myopathy. She currently does smoke on and off and she has become quite debilitated. Her PCP is Dr. Hicks. At this current time, Pt reports her bowels are moving pretty well, she is tolerating everything fairly well, she does have chronic lower extremity pain with venous stasis dermatitis and she cant wear shoes. Her daughter will bring her clothes to wear and she is looking forward to getting stronger in inpatient rehab. I did review all of her meds and labs. Past Elcnzra-Pphswj-Jccuvl Hx Past Med/Social Hx: Reviewed Nursing Past Med/Soc Hx, Reviewed and Corrections made Patient Social History Marrital Status: single Employed/Student: unemployed Alcohol Use: Denies Use Alcohol Beverage of Choice: Whiskey Drug of Choice: OPIATE ABUSE Smoking Status: Current Everyday Smoker Type Used: Cigarettes 2nd Hand Smoke Exposure: Yes Recent Hopitalizations: No Immunizations Up To Date Tetanus Booster (TDap): Unknown Date of Influenza Vaccine: Jul 11, 2020 Seasonal Allergies Seasonal Allergies: Yes Past Medical History Surgeries: Hysterectomy Respiratory: COPD, Pneumonia Cardiac: Atrial Fibrillation, Deep Vein Thrombosis, High Cholesterol, Hypertension Neurological: Paralysis 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: Yes Sexually Transmitted Disease: No HIV/AIDS: No Female 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 Disorders: Denies Menopausal Genitourinary: Renal Failure, UTI-Chronic Gastrointestinal: Gastroesophageal Reflux Psychosocial: Bipolar, Depression History of Blood Disorders: No Adverse Reaction to Blood Andre: No Family History Cerebrovascular accident (CVA) 19 FATHER, Onset:60 years & older FH: testicular cancer G8 BROTHER, Onset:30's - 40 Hypertension 19 FATHER, Onset:Unknown 19 MOTHER, Onset:Unknown G8 BROTHER, Onset:Unknown G8 BROTHER, Onset:Unknown Myocardial infarction 19 FATHER, Onset:40's - 50 Heart Disease, Hypertension SOCIAL HISTORY: -ETOH --ABUSE/REGULAR USE -DRUGS--LONG HISTORY OF OPIATE ABUSE -SMOKES 2 PPD ADDITIONAL PMH: -12/14/2020-TRANSFERRED TO [facility] FOR SEPTIC SHOCK WITH ACUTE RENAL FAILURE DUE TO CELLULITIS OF LEGS. -02/03/21-TRANSFERRED TO [facility] FOR SEPSIS WITH ACUTE RENAL FAILURE, ALSO DUE TO CELLULITIS OF LEGS. -ADMITTED AND INTUBATED X 1 MONTH IN SEPTEMBER 2019 FOR BILATERAL PNEUMONIA AND ARDS. HISTORY OF OPIATE ABUSE/ADDICTION--HAS BEEN ON SUBOXONE, BUT STATES SHE CANNOT AFFORD IT AND IS NO LONGER TAKING IT OF 03/11/21 Self Care: Independent Functional Cognition: Independent Occupation: disabled. Eatin (IND eating sandwich) Oral Hygiene: 5 (based on clincial judgement, set up assist) Shower/Bathe Self: 7 Upper Body Dressin Lower Body Dressin On/Off Footwear: 5 (set up assist with gripper socks.) Toileting Hygiene: 6 (IND with toileting, able to perform hygiene and manage clothing) PM&R Allergy/Meds/Data Review Allergies Coded Allergies: No Known Drug Allergies (Unverified , 04/29/19) Home Medications Scheduled Aspirin (Aspirin), 81 MG PO DAILY, (Reported) Budesonide (Budesonide), 2 ML INH BID, (Reported) Budesonide/Glycopyr/Formoterol (Breztri Aerosphere Inhaler), 2 PUFF INH BID, (Reported) Diltiazem HCl (Cartia Xt), 120 MG PO DAILY, (Reported) Fluoxetine HCl (Prozac), 10 MG PO DAILY, (Reported) Furosemide (Furosemide), 80 MG PO DAILY, (Reported) Gabapentin (Gabapentin), 600 MG PO TID, (Reported) Loratadine (Loratadine), 10 MG PO DAILY, (Reported) Metoprolol Tartrate (Metoprolol Tartrate), 50-100 MG PO BID, (Reported) Potassium Chloride (Potassium Chloride), 20 MEQ PO DAILY, (Reported) Rivaroxaban (Xarelto), 20 MG PO DAILY, (Reported) Scheduled PRN Albuterol Sulfate (Ventolin Hfa), 2 PUFF INH Q4H PRN for SHORTNESS OF BREATH, (Reported) Albuterol Sulfate (Albuterol Sulfate), 3 ML INH Q6H PRN for SHORTNESS OF BREATH, (Reported) Lisinopril (Lisinopril), 10 MG PO DAILY PRN for BLOOD PRESSURE, (Reported) Oxycodone HCl (Oxycodone HCl), 10 MG PO Q4H PRN for PAIN-SEVERE (8-10), (Reported) Discontinued Medications Amoxicillin/Potassium Clav (Amox Tr-K Clv 875-125 mg Tab), 875 MG PO BID WITH MEALS Buprenorphine HCl/Naloxone HCl (Buprenorphine-Nalox 8-2Mg Film), 1 EACH PO BID, (Reported) Discontinued Reason: No Longer Taking Loratadine (Loratadine), 10 MG PO DAILY Discontinued Reason: No Longer Taking Ondansetron HCl (Ondansetron HCl), 4 MG PO Q6H PRN for NAUSEA/VOMITING-1ST LINE, (Reported) Discontinued Reason: No Longer Taking Oxycodone HCl (Oxycodone HCl), 10 MG PO Q4H Discontinued Reason: No Longer Taking Current Medications Current Medications Reviewed Review of Systems Constitutional: see HPI, dizziness, malaise, weakness EENTM: no symptoms reported Respiratory: dyspnea on exertion, short of breath Cardiovascular: no symptoms reported Gastrointestinal: constipation, diarrhea Genitourinary: no symptoms reported Musculoskeletal: back pain, joint pain Skin: no symptoms reported Psychiatric/Neurological: No Symptoms Reported All Other Systems Reviewed Negative Unless Noted: Yes Physical Exam Physical Exam Vital Signs Vital Signs - First Documented 04/27/21 10:58 Pulse Ox 93 O2 Delivery Nasal Cannula O2 Flow Rate 3.00 Capillary Refill : Height, Weight, BMI Height: 5'5.00" Weight: 218lbs. 0.0oz. [id number]; 31.73 BMI Method:Stated General Appearance: No Apparent Distress, WD/WN, Chronically ill, Obese Eyes: Bilateral Eye Normal Inspection, Bilateral Eye PERRL HEENT: PERRL/EOMI, Normal ENT Inspection, Pharynx Normal Neck: Full Range of Motion, Normal Inspection, Non Tender, Supple, Carotid Bruit Respiratory: Chest Non Tender, Lungs Clear, No Accessory Muscle Use, No Respiratory Distress, Decreased Breath Sounds Cardiovascular: No Edema, No Gallop, No JVD, No Murmur, Normal Peripheral Pulses, Irregularly Irregular, Tachycardia Gastrointestinal: Normal Bowel Sounds, No Organomegaly, No Pulsatile Mass, Non Tender, Soft Back: Normal Inspection, No CVA Tenderness, No Vertebral Tenderness Extremity: Normal Capillary Refill, Normal Inspection, Normal Range of Motion, Non Tender, No Calf Tenderness, No Pedal Edema Neurologic/Psychiatric: Alert, Oriented x3, No Motor/Sensory Deficits, 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 Norm as Tested, Abnormal Gait, Depressed Affect, Motor Weakness (Generalized weakness all extremities) Skin: Normal Color, Warm/Dry Lymphatic: No Adenopathy PM&R Medical Assessment & Plan REHAB/MEDICAL ASSESSMENT AND PLAN: REHAB IMPAIRMENT GROUP: Debility ETIOLOGIC DIAGNOSIS: Debility The comorbidities that impact the patients function and/or functional outcome by: Severe oxygen dependent COPD, current smoking, atrial fibrillation, anemia REHAB PLAN: The patient is being admitted to our comprehensive inpatient rehabilitation facility and can tolerate the intensity of service consisting of at least: 180 minutes of therapy a day, 5 out of 7 days a week Rehab treatment will consist of: PT and OT will focus on regaining function and strength with the use of assistive devices in order to return to independent living The patient/family has a good understanding of our discharge process and will benefit from an interdisciplinary inpatient rehabilitation program. The patient has potential to make improvement and is in need of at least two of the following multidisciplinary therapies including but not limited to physical, occupational, speech, and prosthetics and orthotics. Additionally the patient will need services from respiratory, nutritional services, wound care, psychology, etc. (Customize this to each patient). Given the patients complex condition and risk of further medical complications, rehabilitation services cannot be safely or effectively provided at a lower level of care such as a fdc facility. BARRIERS TO DISCHARGE: Severe COPD oxygen dependent ESTIMATED LOS: 14 days DISPOSITION: Home RELEVANT CHANGES SINCE PREADMISSION SCREENING: I have compared the patients medical and functional status at the time of the preadmission screening and there are: no changes PROGNOSIS: Fair REHABILITATION GOALS: 1. PT and OT will focus on regaining function and strength with the use of assistive devices in order to return to independent living All the above goals were reviewed with the patient and he/she is in agreement. By signing this document, I acknowledge that I have personally performed a full physical examination on this patient within 24 hours of admission to this inpatient rehabilitation facility and have determined the patient to be able to tolerate the above course of treatment at an intensive level for a reasonable period of time. I will be completing a detailed individualized Plan of Care for this patient by day #4 of the patients stay based upon the Preadmission Screen, the Post-Admission Evaluation, and the therapy evaluations. Admission Dx/Comorbidities: (1) Debility Status: Acute ICD Codes: R53.81 - Other malaise (2) Heart failure Status: Acute ICD Codes: I50.9 - Heart failure, unspecified (3) Venous stasis dermatitis of both lower extremities Status: Acute ICD Codes: I87.2 - Venous insufficiency (chronic) (peripheral) (4) Lymphedema of both lower extremities Status: Chronic ICD Codes: I89.0 - Lymphedema, not elsewhere classified (5) Paroxysmal A-fib Status: Chronic ICD Codes: I48.0 - Paroxysmal atrial fibrillation (6) Very heavy cigarette smoker (40 or more per day) Status: Acute ICD Codes: F17.210 - Nicotine dependence, cigarettes, uncomplicated (7) HTN (hypertension) Status: Chronic ICD Codes: I10 - Essential (primary) hypertension (8) Pulmonary hypertension ICD Codes: I27.20 - Pulmonary hypertension, unspecified (9) Chronic renal insufficiency Status: Acute ICD Codes: N18.9 - Chronic kidney disease, unspecified (10) COPD (chronic obstructive pulmonary disease) Status: Acute ICD Codes: J44.9 - Chronic obstructive pulmonary disease, unspecified (11) Chronic anemia Status: Acute ICD Codes: D64.9 - Anemia, unspecified (12) Pedal edema Status: Acute ICD Codes: R60.0 - Localized edema (13) DVT (deep venous thrombosis) Status: Chronic ICD Codes: I82.409 - Acute embolism and thrombosis of unspecified deep veins of unspecified lower extremity Assessment/Plan Assessment and Plan Assess & Plan/Chief Complaint Assessment: Severe debility with multiple hospital stays Oxygen dependent COPD end-stage Smoker Atrial fibrillation Congestive heart failure Anemia Chronic kidney disease Chronic lymphedema bilateral lower extremities Venous stasis dermatitis Bipolar Anxiety Plan: Supportive care Oxygen supplementation / Monitor labs Monitor kidney function Aggressive therapy TAL YANEZ DO Apr 27, 2021 11:24
[2021-04-27] MEDS ORDERED: lisINopril 10 MG (PRINIVIL) TABLET PO PRN (11:30)
[2021-04-27] MEDS ORDERED: RT-ALBUTEROL SULF 2.5 MG/3 ML PRE-MIX VIAL INH PRN ×2 (11:30→12:15)
--- NOTE | 2021-04-27 12:37 | Physical Therapy Evaluation ---
PT Evaluation-General Medical Diagnosis Admission Date Apr 27, 2021 at 10:34 Medical Diagnosis: debility Onset Date: Apr 24, 2021 Therapy Diagnosis Therapy Diagnosis: Gait deficit Height/Weight Height (Feet): 5 Height (Inches): 5.00 Weight (Pounds): 218 Weight (Ounces): 0.0 Precautions Precautions/Isolations: Fall Prevention, Standard Precautions Referral Physician: Sully Medical History Pertinent Medical History: Atrial Fib, Alcoholism, COPD, GERD, Heart Failure, HTN, Smoking Social History Home: Single Level Current Living Status: Children (daughter) Entry Into Home: Stairs With Railing PT Steps Into Home: 1 Prior Prior Level of Function SCALE: Activities may be completed with or without assistive devices. 6-Rpoxsdhhrm-pcvqypk completes the activity by him/herself with no assistance from a helper. 5-Set-up or Clean-up Assistance-helper sets up or cleans up; patient completes activity. [place] assists only prior to or following the activity. 4-Supervision or Touching Assistance-helper provides verbal cues and/or touching/steadying and/or contact guard assistance as patient completes activity. Assistance may be provided throughout the activity or intermittently. 3-Partial/Moderate Assistance-helper does LESS THAN HALF the effort. [place] lifts, holds or supports trunk or limbs, but provides less than half the effort. 2-Substantial/Maximal Assistance-helper does MORE THAN HALF the effort. [place] lifts or holds trunk or limbs and provides more than half the effort. 3-Iudqckgfu-snmcrl does ALL the effort. Patient does none of the effort to com plete the activity. Or, the assistance of 2 or more helpers is required for the patient to complete the activity. If activity was not attempted, code reason: 7-Patient Refused. 9-Not Applicable-not attempted and the patient did not perform the activity before the current illness, exacerbation or injury. 10-Not Attempted due to Environmental Limitations-(lack of equipment, weather restraints, etc.). 88-Not Attempted due to Medical Conditions or Safety Concerns. Bed Mobility: 6 Transfers (B,C,W/C): 6 Gait: 6 Stairs: 6 Wheelchair Mobility: 6 Indoor Mobility (Ambulation): Independent Stairs: Independent Prior Devices Use: Walker PT Evaluation-Current Subjective Patient currently rates pain at 8/10 in her bilateral legs and feet. Reports she has been walking to the bathroom with the cane, but feels better ambulating with the FWW Pain Numeric Pain Scale: 8 Location: Right, Left Location Body Site: Foot Pain Description: Ache Pt/Family Goals Return home Objective Patient Orientation: Person, Place, Time, Situation Integumentary/Posture Integumentary Please see nurses note Bowel Incontinence: No Bladder Incontinence: No Neuromuscular (Tone, Coordination, Reflexes) Intact and symmetrical bilaterally. Sensory Vision: Functional Hearing: Functional Hand Dominance: Left Sensation Right Lower Extremit: Intact Sensation Left Lower Extremity: Intact Transfers Roll Left & Right (QC): 4 Sit to Lying (QC): 4 Lying to Sitting/Side of Bed(Q: 4 Sit to Stand (QC): 4 Chair/Udx-jp-Nevvf Xfer(QC): 4 Toilet Transfer (QC): 4 Car Transfer (QC): 88 Gait Does the Patient Walk?: Yes Mode of Locomotion: Walk Anticipated Mode of Locomotion: Walk Walk 10 feet (QC): 4 Walk 50 ft with 2 Turns(QC): 4 Walk 150 ft (QC): 4 Walking 10ft/uneven surface-QC: 3 Distance: 150 feet Gait Assistive Device: FWW Comments/Gait Description Patient ambulates with narrow ANDREW, shortened stride length bilaterally and tends to lose her balance to the right at times, 3 occurrences. Wheelchair Training Does the Pt Use a Wheelchair?: No Wheel 50 ft with 2 turns (QC): 88 Wheel 150 ft (QC): 88 Stairs #of Steps: 0 1 Step (curb) (QC): 88 4 Steps (QC): 88 12 Steps (QC): 88 Walking Assistive Device: Walker Balance Sitting Static: Fair Sitting Dynamic: Fair Standing Static: Fair Standing Dynamic: Fair Picking up an Object (QC): 4 Treatment Therapeutic exercises of AP, QS, Marching, hamstring curls, LAQs, hip adduction with pillow and abduction with manual resistance x 20 each. Assessment/Needs Rehab Potential: Good PT Short Term Goals Short Term Goals Time Frame: May 11, 2021 Roll Left & Right: 5 Sit to lyin Lying to sitting on side of be: 5 Sit to stand: 5 Chair/frb-gm-obrcl transfer: 5 Toilet transfer: 5 Car transfer: 5 Walk 10 feet: 5 Walk 50 feet with two turns: 5 Walk 150 feet: 5 Walking 10ft on uneven surface: 5 1 step (curb): 5 4 steps: 5 12 steps: 5 Picking up objects: 5 Does pt use a wc or scooter: No Wheel 50ft w/2 turns: 88 Wheel 150 feet: 88 Type: N/A PT Residential Goals Residential Goals PT Residential Goals Time Frame: May 25, 2021 Roll Left & Right (QC): 6 Sit to Lying (QC): 6 Lying-Sitting on Side/Bed(QC): 6 Sit to Stand (QC): 6 Chair/Fyz-ih-Oidqf Xfer(QC): 6 Toilet Transfer (QC): 6 Car Transfer (QC): 6 Does the Patient Walk: Yes Walk 10 feet (QC): 6 Walk 50ft with 2 Turns (QC): 6 Walk 150 ft (QC): 6 Walking 10ft on Uneven Surface: 6 1 Step (curb) (QC): 6 4 Steps (QC): 6 12 Steps (QC): 6 Picking up an Object (QC): 6 Does the Pt use WC or Scooter?: No Wheel 50 feet with 2 turns (QC: 88 Type: N/A Wheel 150 feet: 88 Type: N/A PT Plan Problem List Problem List: Activity Tolerance, Functional Strength, Safety, Balance, Gait, Transfer, Bed Mobility Treatment/Plan Treatment Plan: Continue Plan of Care Treatment Plan: Bed Mobility, Education, Functional Activity Lyn, Functional Strength, Group Therapy, Gait, Safety, Therapeutic Exercise, Transfers Treatment Duration: Jun 29, 2021 Frequency: At least 5 of 7 days/Wk (IRF) Estimated Hrs Per Day: 1.5 hours per day Patient and/or Family Agrees t: Yes Safety Risks/Education Patient Education: Gait Training, Transfer Techniques Teaching Recipient: Patient Teaching Methods: Demonstration, Discussion Response to Teaching: Verbalize Understanding, Return Demonstration Discharge Recommendations Equpiment Recommendations-D/C: 3 in 1 Commode, Front Wheeled Walker, Shower Chair Time/GCodes Time In: 1130 Time Out: 1200 Total Billed Treatment Time: 30 Total Billed Treatment Visit, Jules Waters JOHN A PT Apr 27, 2021 12:37
[2021-04-27] MEDS ORDERED: RT-ALBUTEROL INHALER HFA (VENTOLIN HFA) 18 GM IH PRN (13:00)
[2021-04-27] MEDS: A & D OINT 113 GM TUBE TOP SCH (13:22)
[2021-04-27] MEDS: GABAPENTIN 600 MG (NEURONTIN) TAB PO SCH ×2 (13:22→21:39)
[2021-04-27] MEDS: RIVAROXABAN 20 MG TABLET (XARELTO) PO SCH (16:18)
[2021-04-27 20:00] VITALS: BP 137/63
[2021-04-27] MEDS: RT--FLUTICASONE/SALMETEROL 232-14 (AIRDUO RespiCLICK) IH SCH (20:05)
[2021-04-27] MEDS: RT-BUDESONIDE NEBS 0.5 MG/2ML (PULMICORT) AMP INH SCH (20:06)
[2021-04-27] MEDS ORDERED: NON-FORMULARY MEDICATION 1 EA EA (Budesonide/Glycopyr/Formoterol (Breztri Aerosphere Inhal INH SCH (21:00)
[2021-04-27] MEDS: meTOprolol TARTRATE 50 MG (LOPRESSOR) TAB PO SCH (21:39)
[2021-04-28] MEDS: MELATONIN 3 MG TABLET PO PRN ×2 (00:35→20:46)
[2021-04-28] MEDS: FUROSEMIDE 40 MG (LASIX) TAB PO SCH (06:00)
[2021-04-28] MEDS: KCL 20 MEQ TAB (K-DUR) PO SCH (06:00)
[2021-04-28 06:25] LABS: BASOPHILS % (AUTO) 0 % (0-10); EOSINOPHILS # (AUTO) 0.6 10^3/uL (0.0-0.3); EOSINOPHILS % (AUTO) 9 % (0-10); HEMATOCRIT 28 % (35-52); HEMOGLOBIN 7.9 g/dL (11.5-16.0); LYMPHOCYTES # (AUTO) 1.3 10^3/uL (1.0-4.0); LYMPHOCYTES % (AUTO) 17 % (12-44); MEAN CORPUSCULAR HEMOGLOBIN 27 pg (25-34); MEAN CORPUSCULAR HGB CONC 28 g/dL (32-36); MEAN CORPUSCULAR VOLUME 97 fL (80-99); MEAN PLATELET VOLUME 9.6 fL (9.0-12.2); MONOCYTES # (AUTO) 0.6 10^3/uL (0.0-1.0); MONOCYTES % (AUTO) 7 % (0-12); NEUTROPHILS % (AUTO) 66 % (42-75); PLATELET COUNT 356 10^3/uL (130-400); WHITE BLOOD COUNT 7.6 10^3/uL (4.3-11.0)
[2021-04-28 06:41] LABS: ALBUMIN 3.3 GM/DL (3.2-4.5); POTASSIUM 3.7 MMOL/L (3.6-5.0)
[2021-04-28 06:43] LABS: CALCIUM 9.1 MG/DL (8.5-10.1)
[2021-04-28 06:46] LABS: BILIRUBIN,TOTAL 0.3 MG/DL (0.1-1.0)
[2021-04-28 06:48] LABS: CREATININE SERUM 1.16 MG/DL (0.60-1.30)
--- NOTE | 2021-04-28 06:57 | PM&R Progress Note ---
Subjective HPI/CC On Admission Date Seen by Provider: Apr 28, 2021 Time Seen by Provider: 13:00 Subjective/Events-last exam 04/28/2021: Patient seems to be settling in well No falls Hemoglobin 7.9 Chronic pain issues discussed On 4 L of oxygen Chronic leg pain is the source of the chronic issues Smoking cessation discussed Check meds and labs Review of Systems General: Fatigue Pulmonary: Dyspnea Musculoskeletal: leg pain Objective Exam Vital Signs Vital Signs Date Time Temp Pulse Resp B/P (MAP) Pulse Ox O2 Delivery O2 Flow Rate FiO2 04/28/21 21:04 92 Nasal Cannula 6.00 04/28/21 20:00 37.5 77 18 159/72 (101) Capillary Refill : General Appearance: No Apparent Distress, WD/WN, Chronically ill, Obese HEENT: PERRL/EOMI, Normal ENT Inspection, Pharynx Normal Neck: Full Range of Motion, Normal Inspection, Non Tender, Supple, Carotid Bruit Respiratory: Chest Non Tender, Lungs Clear, No Accessory Muscle Use, No Respiratory Distress, Decreased Breath Sounds Cardiovascular: No Edema, No Gallop, No JVD, No Murmur, Normal Peripheral Pulses, Irregularly Irregular, Tachycardia Gastrointestinal: Normal Bowel Sounds, No Organomegaly, No Pulsatile Mass, Non Tender, Soft Back: Normal Inspection, No CVA Tenderness, No Vertebral Tenderness Extremity: Normal Capillary Refill, Normal Inspection, Normal Range of Motion, Non Tender, No Calf Tenderness, No Pedal Edema Neurologic/Psychiatric: Alert, Oriented x3, No Motor/Sensory Deficits, 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 FIM Transfers Therapy Code Descriptions/Definitions Functional [place] Measure: 0=Not Assessed/NA 4=Minimal Assistance 1=Total Assistance 5=Supervision or Setup 2=Maximal Assistance 6=Modified [place] 3=Moderate Assistance 7=Complete IndependenceSCALE: Activities may be completed with or without assistive devices. 6-Swspauzosw-sjlonym completes the activity by him/herself with no assistance from a helper. 5-Set-up or Clean-up Assistance-helper sets up or cleans up; patient completes activity. [place] assists only prior to or following the activity. 4-Supervision or Touching Assistance-helper provides verbal cues and/or touching/steadying and/or contact guard assistance as patient completes activity. Assistance may be provided throughout the activity or intermittently. 3-Partial/Moderate Assistance-helper does LESS THAN HALF the effort. [place] lifts, holds or supports trunk or limbs, but provides less than half the effort. 2-Substantial/Maximal Assistance-helper does MORE THAN HALF the effort. [place] lifts or holds trunk or limbs and provides more than half the effort. 4-Fcfaepxye-wcmhoc does ALL the effort. Patient does none of the effort to complete the activity. Or, the assistance of 2 or more helpers is required for the patient to complete the activity. If activity was not attempted, code reason: 7-Patient Refused. 9-Not Applicable-not attempted and the patient did not perform the activity before the current illness, exacerbation or injury. 10-Not Attempted due to Environmental Limitations-(lack of equipment, weather restraints, etc.). 88-Not Attempted due to Medical Conditions or Safety Concerns. Roll Left to Right (QC): 4 Sit to Lying (QC): 4 Sit to Stand (QC): 4 Chair/Xxv-ft-Gasyb Xfer(QC): 4 Car Transfer (QC): 88 Gait Training Does the Patient Walk?: Yes Walk 10 feet (QC): 4 Walk 50 ft with 2 Turns(QC): 4 Walk 150 ft (QC): 4 Walking 10ft/uneven surface-QC: 3 Gait Assistive Device: FWW Wheelchair Training Does the Pt Use a Wheelchair?: No Wheel 50 ft with 2 turns (QC): 88 Wheel 150 ft (QC): 88 Stair Training #of Steps: 0 1 Step (curb) (QC): 88 4 Steps (QC): 88 12 Steps (QC): 88 Balance Picking up an Object (QC): 4 ADL-Treatment Eating (QC): 6 (IND eating sandwich) Oral Hygiene (QC): 5 (based on clincial judgement, set up assist) Shower/Bathe Self (QC): 7 Upper Body Dressing (QC): 7 Lower Body Dressing (QC): 7 On/Off Footwear (QC): 5 (set up assist with gripper socks.) Toileting Hygiene (QC): 6 (IND with toileting, able to perform hygiene and manage clothing) Assessment/Plan Assessment and Plan Assess & Plan/Chief Complaint Assessment: Severe debility with multiple hospital stays Oxygen dependent COPD end-stage Smoker Atrial fibrillation Congestive heart failure Anemia Chronic kidney disease Chronic lymphedema bilateral lower extremities Venous stasis dermatitis Bipolar Anxiety Plan: Supportive care Oxygen supplementation 27/04 Monitor labs Monitor kidney function Aggressive therapy 04/28/2021: Maintain oxygen Pain control Monitor hemoglobin (1) Debility Status: Acute (2) Heart failure Status: Acute (3) Venous stasis dermatitis of both lower extremities Status: Acute (4) Lymphedema of both lower extremities Status: Chronic (5) Paroxysmal A-fib Status: Chronic (6) Very heavy cigarette smoker (40 or more per day) Status: Acute (7) HTN (hypertension) Status: Chronic (8) Pulmonary hypertension (9) Chronic renal insufficiency Status: Acute (10) COPD (chronic obstructive pulmonary disease) Status: Acute (11) Chronic anemia Status: Acute (12) Pedal edema Status: Acute (13) DVT (deep venous thrombosis) Status: Chronic TAL YANEZ DO Apr 28, 2021 06:57
--- NOTE | 2021-04-28 06:57 | Individualized Plan of Care ---
Individualized Plan of Care Rehab Nursing IPOC Order Admission Date Apr 27, 2021 at 10:34 Current Orders Orders Admission Order(Inpt,Obs,Sdc) (04/27/21 06:52) Vital Signs: Per Unit Policy ( ,16,00 (04/27/21 06:52) iVjay Perera (04/27/21 06:52) Sequential Compression Device .admit (04/27/21 06:52) Pipeline Integrity Engineer-Inpt Rehab Con (04/27/21 06:52) Rehab Nursing Orders-Ipoc (04/27/21 06:52) Physical Therapy Rehab Orders (04/27/21 06:52) Occupational Therapy Rehab Ord (04/27/21 06:52) Speech Therapy Rehab Orders (04/27/21 06:52) Cbc With Automated Diff (04/28/21 06:00) Comprehensive Metabolic Panel (04/28/21 06:00) Precautions (Aru) (04/27/21 06:52) Rehab-Intensity Of Therapy (04/27/21 06:52) Acetaminophen Tablet/Caplet (Tylenol T (04/27/21 07:00) Alprazolam Tablet (Xanax Tablet) (04/27/21 07:00) Calcium Carbonate Chew Tablet (Antacid C (04/27/21 07:00) Diphenhydramine Tablet (Benadryl Tablet) (04/27/21 07:00) Docusate Sodium Capsule (Colace Capsule) (04/27/21 09:00) Docusate Sodium Capsule (Colace Capsule) (04/27/21 07:00) Bisacodyl Suppository (Dulcolax Supposit (04/27/21 07:00) Lactulose Oral Solution (Enulose Oral So (04/27/21 07:00) Na Phos/Na Biphos Enema (Fleet Enema Jose Martin (04/27/21 07:00) Guaifenesin/Codeine Syrup (Robitussin Ac (04/27/21 07:00) Hydrocodone/Apap 5/325 Tablet (Lortab 5 (04/27/21 07:00) Loperamide Tablet (Imodium Tablet) (04/27/21 07:00) Melatonin Tablet (Melatonin Tablet) (04/27/21 07:00) Polyethylene Glycol Powder Pkt (Miralax (04/27/21 09:00) Ondansetron Oral Dissolve Tab (Zofran (04/27/21 07:00) Senna S Tablet (Senokot S Tablet) (04/27/21 09:00) Initiate Admission Nursing Pro .admission (04/27/21 06:52) Admission Arrival Bed Request (04/27/21 10:33) Albuterol Pre-Mix Nebs (Rt) (Proventil (04/27/21 11:30) Aspirin Chewable Tablet (Baby Aspirin Ch (04/28/21 09:00) Diltiazem Cd 24 Hr Capsule (Cardizem Cd (04/28/21 09:00) Fluoxetine Capsule/Tablet (Prozac Capsul (04/28/21 09:00) Gabapentin Capsule/Tablet (Neurontin Cap (04/27/21 13:00) Lisinopril Tablet (Zestril Tablet) (04/27/21 11:30) Loratadine Tablet (Claritin Tablet) (04/28/21 09:00) Budesonide Inhalation Solution (Pulmicor (04/27/21 21:00) Furosemide Tablet (Lasix Tablet) (04/28/21 07:00) Metoprolol Tartrate (Ir) Tab (Lopressor (04/27/21 21:00) Oxycodone Immediate Rel Tablet (Oxyir Ta (04/27/21 11:45) Potassium Chloride (Tablet) (K Dur Table (04/28/21 07:00) Svn Small Volume Nebulizer (04/27/21 11:21) Svn Small Volume Nebulizer (04/27/21 11:21) Rivaroxaban Tablet (Xarelto Tablet) (04/27/21 17:00) Vitamin A & D Ointment (A & D Ointment) (04/27/21 12:03) Albuterol Pre-Mix Nebs (Rt) (Proventil (04/27/21 12:15) Fluticasone/Salmeterol 232-14 (Airduo Re (04/27/21 21:00) Umeclidinium [place] Inhaler (Incruse El (04/28/21 08:00) Patient Visit (04/27/21 ) Pt Eval Low Complexity (04/27/21 ) Exercise Therap, Ea 15 Min (04/27/21 ) Albuterol Inhaler (Ventolin Hfa) (04/27/21 13:00) Sodium 2g (2000 Mg) (04/27/21 Dinner) Iron Test (Fe) (04/28/21 06:40) Nursing Communication (Order) (04/28/21 09:47) Rehab Nursing Orders: Ongoing Assess. of Function Status, Bladder Management, Bladder Scan, Bladder Training, Bowel Management, Bowel Training, Disease Management & Educaiton, DVT Prophylaxis, Fall Prevention, Fluid/Electrolyte/Nutrition Mgmt, Infection Prevention, Medication Management & Education, Management of Risks & Complications, Management of Skin Intergrity, Nutrition Management, Pain Management, Patient/Family Support, Safety Management Intensity of Therapy to be met Patient to be seen: Min.3h per day/5 of 7d PT IPOC Problem List: Activity Tolerance, Functional Strength, Safety, Balance, Gait, Transfer, Bed Mobility Treatment Plan: Continue Plan of Care Bed Mobility, Education, Functional Activity Lyn, Functional Strength, Group Therapy, Gait, Safety, Therapeutic Exercise, Transfers Treatment Duration: Jun 29, 2021 Frequency: At least 5 of 7 days/Wk (IRF) Estimated Hrs Per Day: 1.5 hours per day OT IPOC Problems: Decreased Activ Tolerance, Decreased UE Strength, Impaired Funct Balance, Impaired I ADL's, Impaired Self-Care Skills, Restricted Funct UE ROM OT Treatment, Training and Edu: Yes Plan of Care: ADL Retraining, Functional Mobility, Group Exercise/Act as Ind, UE Funct Exercise/Act Treatment Duration: May 18, 2021 Frequency: At least 5 of 7 days/Wk (IRF) Estimated Hrs Per Day: 1.[address] IPOC Speech Therapy Treatment Plan: Discontinue ST Treatment Duration: Apr 29, 2021 Frequency: Modified Program (IRF) Estimated Hrs Per Day: Other Pipeline Integrity Engineer/Case Mgmt Pipeline Integrity Engineer/Case Managemen: Discharge Planning Dietitian/Enthone Solder Stripper Dietitian/[place]thone Solder Stripper to monitor nutritional status and make changes and/or recommendations as needed and work with speech pathology on dietary upgrades as the occur. Physician IPOC Medical Issues being managed closely and that require the 24 hour availability of a physician: Patient with multiple hospital stays due to severe COPD and heart failure and chronic pain will require close monitoring for decompensation from a physician supervision standpoint Medical Issues: Bowel/Bladder Function, DVT Prophylaxis, Falls Precautions, Fluid/Electrolyte/Nutrition Balance, Infection Protection, Pain Management, Wound Care Brief Synthesis of Preadmission Screen, Post-Admission Evaluation, and Therapy Evaluations: PT and OT will focus on regaining function while managing pain in addition to oxygen supplementation and close monitoring for hypoxia. Medical Prognosis: Good Anticipated Length of Stay: 7 days TAL YANEZ DO Apr 28, 2021 06:57
[2021-04-28] MEDS: RT-BUDESONIDE NEBS 0.5 MG/2ML (PULMICORT) AMP INH SCH ×2 (07:08→21:03)
[2021-04-28] MEDS: RT--FLUTICASONE/SALMETEROL 232-14 (AIRDUO RespiCLICK) IH SCH ×2 (07:09→21:03)
[2021-04-28] MEDS: UMECLIDINIUM BROMIDE (INCRUSE ELLIPTA) 7'S IH SCH (07:09)
[2021-04-28 08:26] VITALS: BP 133/60
[2021-04-28] MEDS: meTOprolol TARTRATE 50 MG (LOPRESSOR) TAB PO SCH ×2 (08:30→20:47)
[2021-04-28] MEDS: FLUoxetine HCL 10 MG (PROzac) CAPSULE/TABLET PO SCH (08:30)
[2021-04-28] MEDS: LORATADINE (CLARITIN) 10 MG TAB PO SCH (08:30)
[2021-04-28] MEDS: dilTIAZem120 MG (CARDIZEM CD) CAP PO SCH (08:30)
[2021-04-28] MEDS: ASPIRIN 81 MG CHEW (CHILDREN'S ASA) PO SCH (08:30)
[2021-04-28] MEDS: GABAPENTIN 600 MG (NEURONTIN) TAB PO SCH ×3 (08:30→20:47)
[2021-04-28] MEDS: A & D OINT 113 GM TUBE TOP SCH (08:31)
[2021-04-28] MEDS: HYDROcodone/APAP 5 MG/325 MG (LORTAB) TAB PO PRN ×2 (08:37→17:48)
[2021-04-28] MEDS: DOCUSATE SODIUM 100 MG (COLACE) CAP PO SCH ×2 (10:58→20:47)
[2021-04-28] MEDS: polyethylene glycoL POWDER 17 GM (MIRALAX) PACK PO SCH ×2 (10:58→21:10)
[2021-04-28] MEDS: SENNA W/DOCUSATE (SENOKOT S) TABLET PO SCH ×2 (10:58→20:47)
[2021-04-28] MEDS: RIVAROXABAN 20 MG TABLET (XARELTO) PO SCH (16:56)
[2021-04-28 20:00] VITALS: BP 159/72
[2021-04-28] MEDS: ALPRAZolam 0.25 MG (XANAX) TAB PO PRN (20:47)
[2021-04-29] MEDS: KCL 20 MEQ TAB (K-DUR) PO SCH (05:48)
--- NOTE | 2021-04-29 06:22 | PM&R Progress Note ---
Subjective HPI/CC On Admission Date Seen by Provider: Apr 29, 2021 Time Seen by Provider: 11:30 Subjective/Events-last exam 04/29/2021: Pt doing pretty well Hgb 7.9 Redness from the venous stasis dermatitis Pain is an issue Maintain on oxygen 04/28/2021: Patient seems to be settling in well No falls Hemoglobin 7.9 Chronic pain issues discussed On 4 L of oxygen Chronic leg pain is the source of the chronic issues Smoking cessation discussed Check meds and labs Review of Systems General: Fatigue, Malaise Musculoskeletal: leg pain Objective Exam Vital Signs Vital Signs Date Time Temp Pulse Resp B/P (MAP) Pulse Ox O2 Delivery O2 Flow Rate FiO2 04/29/21 20:47 96 Nasal Cannula 3.00 04/29/21 20:00 37.7 93 20 121/58 (79) Capillary Refill : General Appearance: No Apparent Distress, WD/WN, Chronically ill, Obese HEENT: PERRL/EOMI, Normal ENT Inspection, Pharynx Normal Neck: Full Range of Motion, Normal Inspection, Non Tender, Supple, Carotid Bruit Respiratory: Chest Non Tender, Lungs Clear, No Accessory Muscle Use, No Respiratory Distress, Decreased Breath Sounds Cardiovascular: No Edema, No Gallop, No JVD, No Murmur, Normal Peripheral Pulses, Irregularly Irregular, Tachycardia Gastrointestinal: Normal Bowel Sounds, No Organomegaly, No Pulsatile Mass, Non Tender, Soft Back: Normal Inspection, No CVA Tenderness, No Vertebral Tenderness Extremity: Normal Capillary Refill, Normal Inspection, Normal Range of Motion, Non Tender, No Calf Tenderness, No Pedal Edema Neurologic/Psychiatric: Alert, Oriented x3, No Motor/Sensory Deficits, energy director II- XII Norm as Tested, Abnormal Gait, Depressed Affect, Motor Weakness (Generalized weakness all extremities) Skin: Normal Color, Warm/Dry, Rash (Chronic venous stasis dermatitis lower extr emities) Lymphatic: No Adenopathy Results/Procedures Lab Patient resulted labs reviewed. FIM Transfers Therapy Code Descriptions/Definitions Functional [place] Measure: 0=Not Assessed/NA 4=Minimal Assistance 1=Total Assistance 5=Supervision or Setup 2=Maximal Assistance 6=Modified [place] 3=Moderate Assistance 7=Complete IndependenceSCALE: Activities may be completed with or without assistive devices. 4-Nguwbxadgy-dlyowwe completes the activity by him/herself with no assistance from a helper. 5-Set-up or Clean-up Assistance-helper sets up or cleans up; patient completes activity. [place] assists only prior to or following the activity. 4-Supervision or Touching Assistance-helper provides verbal cues and/or touching/steadying and/or contact guard assistance as patient completes activity. Assistance may be provided throughout the activity or intermittently. 3-Partial/Moderate Assistance-helper does LESS THAN HALF the effort. Lena lifts, holds or supports trunk or limbs, but provides less than half the effort. 2-Substantial/Maximal Assistance-helper does MORE THAN HALF the effort. Lena lifts or holds trunk or limbs and provides more than half the effort. 3-Cejtqerod-dospmt does ALL the effort. Patient does none of the effort to complete the activity. Or, the assistance of 2 or more helpers is required for the patient to complete the activity. If activity was not attempted, code reason: 7-Patient Refused. 9-Not Applicable-not attempted and the patient did not perform the activity before the current illness, exacerbation or injury. 10-Not Attempted due to Environmental Limitations-(lack of equipment, weather restraints, etc.). 88-Not Attempted due to Medical Conditions or Safety Concerns. Roll Left to Right (QC): 4 Sit to Lying (QC): 4 Sit to Stand (QC): 4 Chair/Ifh-hm-Ckgow Xfer(QC): 4 Car Transfer (QC): 88 Gait Training Does the Patient Walk?: Yes Walk 10 feet (QC): 4 Walk 50 ft with 2 Turns(QC): 4 Walk 150 ft (QC): 4 Walking 10ft/uneven surface-QC: 3 Gait Assistive Device: FWW Wheelchair Training Does the Pt Use a Wheelchair?: No Wheel 50 ft with 2 turns (QC): 88 Wheel 150 ft (QC): 88 Stair Training #of Steps: 0 1 Step (curb) (QC): 88 4 Steps (QC): 88 12 Steps (QC): 88 Balance Picking up an Object (QC): 4 ADL-Treatment Eating (QC): 6 (IND eating sandwich) Oral Hygiene (QC): 5 (based on clincial judgement, set up assist) Shower/Bathe Self (QC): 7 Upper Body Dressing (QC): 7 Lower Body Dressing (QC): 7 On/Off Footwear (QC): 5 (set up assist with gripper socks.) Toileting Hygiene (QC): 6 (IND with toileting, able to perform hygiene and manage clothing) Assessment/Plan Assessment and Plan Assess & Plan/Chief Complaint Assessment: Severe debility with multiple hospital stays Oxygen dependent COPD end-stage Smoker Atrial fibrillation Congestive heart failure Anemia Chronic kidney disease Chronic lymphedema bilateral lower extremities Venous stasis dermatitis Bipolar Anxiety Plan: Supportive care Oxygen supplementation 27/04 Monitor labs Monitor kidney function Aggressive therapy 04/28/2021: Maintain oxygen Pain control Monitor hemoglobin 04/29/2021: Oxygen to maintain Supportive care Monitor closely (1) Debility Status: Acute (2) Heart failure Status: Acute (3) Venous stasis dermatitis of both lower extremities Status: Acute (4) Lymphedema of both lower extremities Status: Chronic (5) Paroxysmal A-fib Status: Chronic (6) Very heavy cigarette smoker (40 or more per day) Status: Acute (7) HTN (hypertension) Status: Chronic (8) Pulmonary hypertension (9) Chronic renal insufficiency Status: Acute (10) COPD (chronic obstructive pulmonary disease) Status: Acute (11) Chronic anemia Status: Acute (12) Pedal edema Status: Acute (13) DVT (deep venous thrombosis) Status: Chronic TAL YANEZ DO Apr 29, 2021 06:22
[2021-04-29] MEDS: FUROSEMIDE 40 MG (LASIX) TAB PO SCH (06:26)
[2021-04-29 07:56] VITALS: BP 128/60
[2021-04-29] MEDS: HYDROcodone/APAP 5 MG/325 MG (LORTAB) TAB PO PRN ×2 (08:16→18:46)
[2021-04-29] MEDS: meTOprolol TARTRATE 50 MG (LOPRESSOR) TAB PO SCH ×2 (08:16→21:05)
[2021-04-29] MEDS: ASPIRIN 81 MG CHEW (CHILDREN'S ASA) PO SCH (08:16)
[2021-04-29] MEDS: dilTIAZem120 MG (CARDIZEM CD) CAP PO SCH (08:16)
[2021-04-29] MEDS: LORATADINE (CLARITIN) 10 MG TAB PO SCH (08:16)
[2021-04-29] MEDS: GABAPENTIN 600 MG (NEURONTIN) TAB PO SCH ×3 (08:16→21:04)
[2021-04-29] MEDS: FLUoxetine HCL 10 MG (PROzac) CAPSULE/TABLET PO SCH (08:16)
[2021-04-29] MEDS: SENNA W/DOCUSATE (SENOKOT S) TABLET PO SCH ×2 (08:17→23:04)
[2021-04-29] MEDS: DOCUSATE SODIUM 100 MG (COLACE) CAP PO SCH ×2 (08:17→23:01)
[2021-04-29] MEDS: A & D OINT 113 GM TUBE TOP SCH (08:17)
[2021-04-29] MEDS: polyethylene glycoL POWDER 17 GM (MIRALAX) PACK PO SCH ×2 (09:00→23:02)
--- NOTE | 2021-04-29 09:12 | ST Cognitive Linguistic Eval ---
Speech Evaluation-General Medical Diagnosis debility Onset Date: Apr 24, 2021 Therapy Diagnosis Therapy Diagnosis: Cognitive-communication Referral Referring Physician: Dr. Virk Medical History Pertinent Medical History: Atrial Fib, Alcoholism, COPD, GERD, Heart Failure, HTN, Smoking Social History Current Living Status: Children (daughter) Speech PLF-Current Status Prior Level of Function Patient lives in her own home with her daughter who assists her with her daily needs. Subjective Patient was pleasant and cooperative with the cognitive assessment. Language Eval: Auditory Comprehends Simple Yes/No Ques: Functional Indent/Objects Multiple [place]: Functional Ident/Pics in Multiple [place]: Functional Follows 1-Step Commands: Functional Follows Complex Directions: Functional Follows General Conversations: Functional Language Eval: Verbal Language Completes Spontaneous Greeting: Functional Produces Auto, Serial Info: Functional Imitates Simple Words/Phrases: Functional Word Finding: Functional Requests Basic Needs: Functional States Basic Personal Info: Functional Expresses Complex Ideas: Functional Objective Cognitive Domain Attention: WNL Memory: WNL Problem Solving: Functional Executive Functions: WNL Visuospatial Skills: WNL Composite Severity Rating: WNL Clock Drawing Severity Rating: WNL Objective Formal/Standardized Tests [facility] Status ([facility]) Results 29/30, within normal limits Oral Motor/Speech Production Within Normal Limits Impression Patient is a pleasant 56 y/o female who was admitted to the ARU due to debility. Patient was given the SLUMS with a score of 29/30 obtained. The patient's score is within normal range of function and does not indicate the need for further ST services. Speech Patient Assess Expression of Ideas/Wants: Expression (4) Understanding Verbal Content: Understands (4) Brief Interview-Mental Status: Yes Repetition of Three Words: Three (3) Temporal Orientation: Year: Correct (3) Temporal Orientation: Month: Accurate within 5 days(2) Temporal Orientation: Day: Correct (1) Recall : Wear to say "Sock": Yes, no cue required (2) Recall : Color: Yes, no cue required (2) Recall : Bed: Yes, no cue required (2) Memory/Recall Ability: Current season, Location of own room, That he or she is in a hsp/hsp unit Speech-Plan Patient/Family Goals Patient/Family Goals: Patient plans on returning home where she lives with her daughter. Treatment Plan Speech Therapy Treatment Plan: Discontinue ST Treatment Duration: Apr 29, 2021 Frequency: 1 time per week Estimated Hrs Per Day: .5 hour per day Rehab Potential: Good Barriers to Learning: None identified Pt/Family Agrees to Plan: Yes Safety Risks/Education Teaching Recipient: Patient Teaching Methods: Discussion Response to Teaching: Verbalize Understanding Education Topics Provided: Safety within her room, communication of wants/needs Time Speech Therapy Time In: 09:00 Speech Therapy Time Out: 09:30 Total Billed Time: 30 Billed Treatment Time 1, STEVE HAILE [facility] ST Apr 29, 2021 09:12
[2021-04-29] MEDS: RT-BUDESONIDE NEBS 0.5 MG/2ML (PULMICORT) AMP INH SCH ×2 (09:14→20:44)
[2021-04-29] MEDS: RT--FLUTICASONE/SALMETEROL 232-14 (AIRDUO RespiCLICK) IH SCH ×2 (09:16→20:47)
[2021-04-29] MEDS: UMECLIDINIUM BROMIDE (INCRUSE ELLIPTA) 7'S IH SCH (09:16)
--- NOTE | 2021-04-29 10:38 | Occupational Ther Daily Note ---
OT Current Status-Daily Note Subjective Pt laying in bed, agreeable to OT tx. Pt states she is tired and feeling a little off balance today. Mental Status/Objective Patient Orientation: Person, Place, Time, Situation Attachments: Oxygen (4L) ADL-Treatment Therapy Code Descriptions/Definitions Functional [place] Measure: 0=Not Assessed/NA 4=Minimal Assistance 1=Total Assistance 5=Supervision or Setup 2=Maximal Assistance 6=Modified [place] 3=Moderate Assistance 7=Complete IndependenceSCALE: Activities may be completed with or without assistive devices. 6-Kfqfmdirig-lhnxkgx completes the activity by him/herself with no assistance from a helper. 5-Set-up or Clean-up Assistance-helper sets up or cleans up; patient completes activity. [place] assists only prior to or following the activity. 4-Supervision or Touching Assistance-helper provides verbal cues and/or touching/steadying and/or contact guard assistance as patient completes activity. Assistance may be provided throughout the activity or intermittently. 3-Partial/Moderate Assistance-helper does LESS THAN HALF the effort. [place] lifts, holds or supports trunk or limbs, but provides less than half the effort. 2-Substantial/Maximal Assistance-helper does MORE THAN HALF the effort. [place] lifts or holds trunk or limbs and provides more than half the effort. 5-Mymiukqes-ioolmc does ALL the effort. Patient does none of the effort to complete the activity. Or, the assistance of 2 or more helpers is required for the patient to complete the activity. If activity was not attempted, code reason: 7-Patient Refused. 9-Not Applicable-not attempted and the patient did not perform the activity before the current illness, exacerbation or injury. 10-Not Attempted due to Environmental Limitations-(lack of equipment, weather restraints, etc.). 88-Not Attempted due to Medical Conditions or Safety Concerns. Eating (QC): 6 (Pt IND with meals.) Oral Hygiene (QC): 6 (IND ) Shower/Bathe Self (QC): 4 (SBA with sponge bath. Pt able to wash/dry all pa rts.) Upper Body Dressing (QC): 5 (set up) Lower Body Dressing (QC): 4 (SBA, pt able to don pants) On/Off Footwear: 5 (Set up with gripper socks.) Toileting Hygiene (QC): 6 (IND with hyigne and clothing mangment.) Toilet Transfer (QC): 6 ([place] [facility] [place] Other Treatment Pt laying in bed, agreeable to OT Tx. Pt states she is too tired and off balance to take full shower, agreeable to sponge bath. Pt completed sponge bath at EOB, SBA in stand to wash buttocks. Pt donned UE/LE clothing at EOB, SBA in stand for pant hike. Pt able to call and order lunch independently. Pt used FWW to perform functional mobility to sink with SBA, pt brushed teeth then returned to bed. Post tx, pt laying in bed, call light in reach and all needs met. Education OT Patient Education: Correct positioning, Modified ADL techniques, Progress toward Goal/Update tx plan, Purpose of tx/functional activities, Rehab process Teaching Recipient: Patient Teaching Methods: Discussion Response to Teaching: Verbalize Understanding OT Short Term Goals Short Term Goals Time Frame: May 08, 2021 Shower/bathe self: 4 Upper body dressin Lower body dressin OT Fdc Goals Lollypop Machine Operator Goals Time Frame: May 18, 2021 Eating (QC): 6 Oral Hygiene (QC): 6 Toileting Hygiene (QC): 6 Shower/Bathe Self (QC): 6 Upper Body Dressing (QC): 6 Lower Body Dressing (QC): 6 On/Off Footwear (QC): 6 Additional Goals: 1-Demonstrate ADL Tasks, 2-Verbalize Understanding, 3- ImproveStrength/Lyn 1=Demonstrate adherence to instructed precautions during ADL tasks. 2=Patient will verbalize/demonstrate understanding of assistive devices/mod ifications for ADL. 3=Patient will improve strength/tolerance for activity to enable patient to perform ADL's. OT Education/Plan Problem List/Assessment Assessment: Decreased Activ Tolerance, Decreased UE Strength, Impaired Funct Balance, Impaired I ADL's, Impaired Self-Care Skills, Restricted Funct UE ROM Discharge Recommendations Plan/Recommendations: Continue POC Treatment Plan/Plan of Care Patient would benefit from OT for education, treatment and training to promote independence in ADL's, mobility, safety and/or upper extremity function for ADL's. Plan of Care: ADL Retraining, Functional Mobility, Group Exercise/Act as Ind, UE Funct Exercise/Act Treatment Duration: May 18, 2021 Frequency: At least 5 of 7 days/Wk (IRF) Estimated Hrs Per Day: 1.5 hours per day Agreement: Yes Rehab Potential: Good Time/GCodes Start Time: 10:00 Stop Time: 11:00 Total Time Billed (hr/min): 60 Billed Treatment Time 1, ADL 4 REECE ROSA OT Apr 29, 2021 10:38
--- NOTE | 2021-04-29 12:07 | Physical Therapy Daily Note ---
PT Daily Note-Current Subjective Pt asleep sitting up in bed upon arrival. Pt agrees to PT. Pain Location: No Pain Reported Mental Status Patient Orientation: Person, Place, Time, Situation Transfers SCALE: Activities may be completed with or without assistive devices. 3-Iqurhelhqx-yobkgzj completes the activity by him/herself with no assistance from a helper. 5-Set-up or Clean-up Assistance-helper sets up or cleans up; patient completes activity. [place] assists only prior to or following the activity. 4-Supervision or Touching Assistance-helper provides verbal cues and/or touching/steadying and/or contact guard assistance as patient completes activity. Assistance may be provided throughout the activity or intermittently. 3-Partial/Moderate Assistance-helper does LESS THAN HALF the effort. [place] lifts, holds or supports trunk or limbs, but provides less than half the effort. 2-Substantial/Maximal Assistance-helper does MORE THAN HALF the effort. [place] lifts or holds trunk or limbs and provides more than half the effort. 7-Ywhxwoldc-lcdroa does ALL the effort. Patient does none of the effort to comp lete the activity. Or, the assistance of 2 or more helpers is required for the patient to complete the activity. If activity was not attempted, code reason: 7-Patient Refused. 9-Not Applicable-not attempted and the patient did not perform the activity before the current illness, exacerbation or injury. 10-Not Attempted due to Environmental Limitations-(lack of equipment, weather restraints, etc.). 88-Not Attempted due to Medical Conditions or Safety Concerns. Sit to Lying (QC): 5 Lying to Sitting/Side of Bed(Q: 5 Sit to Stand (QC): 5 Toilet Transfer (QC): 5 Weight Bearing Full Weight Bearing Full Weight Bearing Exercises Seated Therapy Exercises: Ankle pumps, Sit to stand, Long arc quads, Hip flexion, Hamstring Curls, Hip abd/add Seated Reps: 15 Treatments Pt transfers to EOB to complete Seated Ex. Pt takes RB as needed. Pt transfers to BSC to toilet and returns to bed to sit up and eat. AWS SOFTWARE DEVELOPMENT ENGINEER continues to wake pt during tx as pt is fatigued. Assessment Current Status: Fair Progress Pt still fatigues easily and needs RB to recover. PT Short Term Goals Short Term Goals Time Frame: May 11, 2021 Roll Left & Right: 5 Sit to lyin Lying to sitting on side of be: 5 Sit to stand: 5 Chair/all-ru-pmxcz transfer: 5 Toilet transfer: 5 Car transfer: 5 Walk 10 feet: 5 Walk 50 feet with two turns: 5 Walk 150 feet: 5 Walking 10ft on uneven surface: 5 1 step (curb): 5 4 steps: 5 12 steps: 5 Picking up objects: 5 Does pt use a wc or scooter: No Wheel 50ft w/2 turns: 88 Wheel 150 feet: 88 Type: N/A PT Legal Transcriptionist Goals Legal Transcriptionist Goals PT Intermediate Goals Time Frame: May 25, 2021 Roll Left & Right (QC): 6 Sit to Lying (QC): 6 Lying-Sitting on Side/Bed(QC): 6 Sit to Stand (QC): 6 Chair/Ozy-oy-Pfiux Xfer(QC): 6 Toilet Transfer (QC): 6 Car Transfer (QC): 6 Does the Patient Walk: Yes Walk 10 feet (QC): 6 Walk 50ft with 2 Turns (QC): 6 Walk 150 ft (QC): 6 Walking 10ft on Uneven Surface: 6 1 Step (curb) (QC): 6 4 Steps (QC): 6 12 Steps (QC): 6 Picking up an Object (QC): 6 Does the Pt use WC or Scooter?: No Wheel 50 feet with 2 turns (QC: 88 Type: N/A Wheel 150 feet: 88 Type: N/A PT Plan Problem List Problem List: Activity Tolerance Treatment/Plan Treatment Plan: Continue Plan of Care Treatment Plan: Bed Mobility, Education, Functional Activity Lyn, Functional Strength, Group Therapy, Gait, Safety, Therapeutic Exercise, Transfers Treatment Duration: Jun 29, 2021 Frequency: At least 5 of 7 days/Wk (IRF) Estimated Hrs Per Day: 1.5 hours per day Patient and/or Family Agrees t: Yes Safety Risks/Education Patient Education: Correct Positioning Teaching Recipient: Patient Teaching Methods: Discussion Response to Teaching: Verbalize Understanding Time/GCodes Time In: 1115 Time Out: 1200 Total Billed Treatment Time: 45 Total Billed Treatment 1, FA (15m) & EX x2 (30m) VÍCTOR FAYE PTA Apr 29, 2021 12:07
[2021-04-29] MEDS: ONDANSETRON 4 MG (ZOFRAN) ORAL DISSOLVE TAB PO PRN (13:08)
--- NOTE | 2021-04-29 15:23 | Therapy Group Daily Note ---
Therapy Daily Group Note Patient Education Topic Home Safety Exercises LE Seated Exercise, UE Exercise Session Ratio (pt:therapist): 4:1 Goal of Session: Home Safety Strategies, UE/LE Strengthing Goal Met for this Session: Yes Pt Benefit of Group: Contributions to Others, F/U Use of Strategies @Home, Increased Functional Safety, Increased Functional Strength, Improved Cognition, Recognition of Peers, Socialization Other/Notes Pt ambulated using FWW to therapy gym for OT/PT group. Group consisted of introductions (name), socialization, B UE/LE seated exercises, home safety activity and home safety education. Pt introduced self appropriately and actively listen to peers. Pt then was able to complete B UE/LE seated exercises. Pt did have difficulty with falling asleep during group due to not feeling well. Pt did participate when encouraged. Pt acknowledged understanding of educational topics by giving own examples and answering questions during home safety activity. After group, pt lying in bed with call light/phone in reach. All needs met in room. Start Time: 13:00 Stop Time: 14:25 Total Billed Treatment Time: 85 Total Billed Treatment 1-GRP TY REAGAN Apr 29, 2021 15:23
[2021-04-29] MEDS: RIVAROXABAN 20 MG TABLET (XARELTO) PO SCH (16:47)
[2021-04-29 20:00] VITALS: BP 121/58
[2021-04-29] MEDS: MELATONIN 3 MG TABLET PO PRN (21:06)
--- NOTE | 2021-04-30 05:33 | PM&R Progress Note ---
Subjective HPI/CC On Admission Date Seen by Provider: Apr 30, 2021 Time Seen by Provider: 11:00 Subjective/Events-last exam 04/30/2021: Pt reports she is feeling weak Iron was given up on fourth floor and iron level is high at 191 Told me she was a previous alcoholic after her Edema is improved 04/29/2021: Pt doing pretty well Hgb 7.9 Redness from the venous stasis dermatitis Pain is an issue Maintain on oxygen 04/28/2021: Patient seems to be settling in well No falls Hemoglobin 7.9 Chronic pain issues discussed On 4 L of oxygen Chronic leg pain is the source of the chronic issues Smoking cessation discussed Check meds and labs Review of Systems General: Fatigue, Malaise Musculoskeletal: leg pain Neurological: Weakness Objective Exam Vital Signs Vital Signs Date Time Temp Pulse Resp B/P (MAP) Pulse Ox O2 Delivery O2 Flow Rate FiO2 04/30/21 20:40 36.0 85 18 143/68 (93) 92 Nasal Cannula 4.00 Capillary Refill : General Appearance: No Apparent Distress, WD/WN, Chronically ill, Obese HEENT: PERRL/EOMI, Normal ENT Inspection, Pharynx Normal Neck: Full Range of Motion, Normal Inspection, Non Tender, Supple, Carotid Bruit Respiratory: Chest Non Tender, Lungs Clear, No Accessory Muscle Use, No Respiratory Distress, Decreased Breath Sounds Cardiovascular: No Edema, No Gallop, No JVD, No Murmur, Normal Peripheral Pulses, Irregularly Irregular, Tachycardia Gastrointestinal: Normal Bowel Sounds, No Organomegaly, No Pulsatile Mass, Non Tender, Soft Back: Normal Inspection, No CVA Tenderness, No Vertebral Tenderness Extremity: Normal Capillary Refill, Normal Inspection, Normal Range of Motion, Non Tender, No Calf Tenderness, No Pedal Edema Neurologic/Psychiatric: Alert, Oriented x3, No Motor/Sensory Deficits, boat loader II-X II Norm as Tested, Abnormal Gait, Depressed Affect, Motor Weakness (Generalized weakness all extremities) Skin: Normal Color, Warm/Dry, Rash (Chronic venous stasis dermatitis lower extremities) Lymphatic: No Adenopathy Results/Procedures Lab Patient resulted labs reviewed. FIM Transfers Therapy Code Descriptions/Definitions Functional [place] Measure: 0=Not Assessed/NA 4=Minimal Assistance 1=Total Assistance 5=Supervision or Setup 2=Maximal Assistance 6=Modified [place] 3=Moderate Assistance 7=Complete IndependenceSCALE: Activities may be completed with or without assistive devices. 3-Jojjkzpsqj-hdznuhp completes the activity by him/herself with no assistance from a helper. 5-Set-up or Clean-up Assistance-helper sets up or cleans up; patient completes activity. [place] assists only prior to or following the activity. 4-Supervision or Touching Assistance-helper provides verbal cues and/or touching/steadying and/or contact guard assistance as patient completes activity. Assistance may be provided throughout the activity or intermittently. 3-Partial/Moderate Assistance-helper does LESS THAN HALF the effort. [place] lifts, holds or supports trunk or limbs, but provides less than half the effort. 2-Substantial/Maximal Assistance-helper does MORE THAN HALF the effort. [place] lifts or holds trunk or limbs and provides more than half the effort. 3-Qvkczfnbz-vvdjtx does ALL the effort. Patient does none of the effort to compl ete the activity. Or, the assistance of 2 or more helpers is required for the patient to complete the activity. If activity was not attempted, code reason: 7-Patient Refused. 9-Not Applicable-not attempted and the patient did not perform the activity before the current illness, exacerbation or injury. 10-Not Attempted due to Environmental Limitations-(lack of equipment, weather restraints, etc.). 88-Not Attempted due to Medical Conditions or Safety Concerns. Roll Left to Right (QC): 4 Sit to Lying (QC): 5 Sit to Stand (QC): 5 Chair/Jru-fl-Fmimv Xfer(QC): 4 Car Transfer (QC): 88 Gait Training Does the Patient Walk?: Yes Walk 10 feet (QC): 4 Walk 50 ft with 2 Turns(QC): 4 Walk 150 ft (QC): 4 Walking 10ft/uneven surface-QC: 3 Gait Assistive Device: FWW Wheelchair Training Does the Pt Use a Wheelchair?: No Wheel 50 ft with 2 turns (QC): 88 Wheel 150 ft (QC): 88 Stair Training #of Steps: 0 1 Step (curb) (QC): 88 4 Steps (QC): 88 12 Steps (QC): 88 Balance Picking up an Object (QC): 4 ADL-Treatment Eating (QC): 6 (Pt IND with meals.) Oral Hygiene (QC): 6 (IND ) Shower/Bathe Self (QC): 4 (SBA with sponge bath. Pt able to wash/dry all parts.) Upper Body Dressing (QC): 5 (set up) Lower Body Dressing (QC): 4 (SBA, pt able to don pants) On/Off Footwear (QC): 5 (Set up with gripper socks.) Toileting Hygiene (QC): 6 (IND with hyigne and clothing mangment.) Toilet Transfer (QC): 6 (IND transfer to[place] [facility] [place] Assessment/Plan Assessment and Plan Assess & Plan/Chief Complaint Assessment: Severe debility with multiple hospital stays Oxygen dependent COPD end-stage Smoker Atrial fibrillation Congestive heart failure Anemia Chronic kidney disease Chronic lymphedema bilateral lower extremities Venous stasis dermatitis Bipolar Anxiety Plan: Supportive care Oxygen supplementation 27/04 Monitor labs Monitor kidney function Aggressive therapy 04/28/2021: Maintain oxygen Pain control Monitor hemoglobin 04/29/2021: Oxygen to maintain Supportive care Monitor closely 04/30/2021: Supportive care Pain control Oxygen supplementation (1) Debility Status: Acute (2) Heart failure Status: Acute (3) Venous stasis dermatitis of both lower extremities Status: Acute (4) Lymphedema of both lower extremities Status: Chronic (5) Paroxysmal A-fib Status: Chronic (6) Very heavy cigarette smoker (40 or more per day) Status: Acute (7) HTN (hypertension) Status: Chronic (8) Pulmonary hypertension (9) Chronic renal insufficiency Status: Acute (10) COPD (chronic obstructive pulmonary disease) Status: Acute (11) Chronic anemia Status: Acute (12) Pedal edema Status: Acute (13) DVT (deep venous thrombosis) Status: Chronic TAL YANEZ DO Apr 30, 2021 05:33
[2021-04-30] MEDS: KCL 20 MEQ TAB (K-DUR) PO SCH (06:36)
[2021-04-30] MEDS: FUROSEMIDE 40 MG (LASIX) TAB PO SCH (06:36)
[2021-04-30] MEDS: RT--FLUTICASONE/SALMETEROL 232-14 (AIRDUO RespiCLICK) IH SCH ×2 (07:36→18:41)
[2021-04-30] MEDS: RT-BUDESONIDE NEBS 0.5 MG/2ML (PULMICORT) AMP INH SCH (07:36)
[2021-04-30] MEDS: UMECLIDINIUM BROMIDE (INCRUSE ELLIPTA) 7'S IH SCH (07:37)
[2021-04-30 07:58] VITALS: BP 133/65
[2021-04-30] MEDS: FLUoxetine HCL 10 MG (PROzac) CAPSULE/TABLET PO SCH (08:43)
[2021-04-30] MEDS: GABAPENTIN 600 MG (NEURONTIN) TAB PO SCH ×3 (08:44→20:26)
[2021-04-30] MEDS: meTOprolol TARTRATE 50 MG (LOPRESSOR) TAB PO SCH ×2 (08:44→20:27)
[2021-04-30] MEDS: LORATADINE (CLARITIN) 10 MG TAB PO SCH (08:45)
[2021-04-30] MEDS: ASPIRIN 81 MG CHEW (CHILDREN'S ASA) PO SCH (08:45)
[2021-04-30] MEDS: dilTIAZem120 MG (CARDIZEM CD) CAP PO SCH (08:45)
[2021-04-30] MEDS: DOCUSATE SODIUM 100 MG (COLACE) CAP PO SCH ×2 (08:46→20:37)
[2021-04-30] MEDS: SENNA W/DOCUSATE (SENOKOT S) TABLET PO SCH ×2 (08:46→20:26)
[2021-04-30] MEDS: polyethylene glycoL POWDER 17 GM (MIRALAX) PACK PO SCH ×2 (08:46→20:38)
[2021-04-30] MEDS: A & D OINT 113 GM TUBE TOP SCH (09:26)
--- NOTE | 2021-04-30 10:03 | Occupational Ther Daily Note ---
OT Current Status-Daily Note Subjective Pt in bed, agreeable to OT tx. Pt indicates she still feels "off" today, she mainly feels weak Mental Status/Objective Patient Orientation: Person, Place, Time, Situation Attachments: Oxygen (3L) ADL-Treatment Therapy Code Descriptions/Definitions Functional [place] Measure: 0=Not Assessed/NA 4=Minimal Assistance 1=Total Assistance 5=Supervision or Setup 2=Maximal Assistance 6=Modified [place] 3=Moderate Assistance 7=Complete IndependenceSCALE: Activities may be completed with or without assistive devices. 3-Vgybiizwtr-sdbplfy completes the activity by him/herself with no assistance from a helper. 5-Set-up or Clean-up Assistance-helper sets up or cleans up; patient completes activity. [place] assists only prior to or following the activity. 4-Supervision or Touching Assistance-helper provides verbal cues and/or touching/steadying and/or contact guard assistance as patient completes a ctivity. Assistance may be provided throughout the activity or intermittently. 3-Partial/Moderate Assistance-helper does LESS THAN HALF the effort. [place] lifts, holds or supports trunk or limbs, but provides less than half the effort. 2-Substantial/Maximal Assistance-helper does MORE THAN HALF the effort. [place] lifts or holds trunk or limbs and provides more than half the effort. 1-Tacjuwdxw-zdkavr does ALL the effort. Patient does none of the effort to complete the activity. Or, the assistance of 2 or more helpers is required for the patient to complete the activity. If activity was not attempted, code reason: 7-Patient Refused. 9-Not Applicable-not attempted and the patient did not perform the activity before the current illness, exacerbation or injury. 10-Not Attempted due to Environmental Limitations-(lack of equipment, weather restraints, etc.). 88-Not Attempted due to Medical Conditions or Safety Concerns. Eating (QC): 6 (IND) Oral Hygiene (QC): 6 (IND standing at sink) Shower/Bathe Self (QC): 7 Upper Body Dressing (QC): 5 (set up) Lower Body Dressing (QC): 5 (set up) On/Off Footwear: 5 (set up for gripper socks) Toileting Hygiene (QC): 6 (IND with clothing management and hygiene) Toilet Transfer (QC): 6 (IND on/off toilet.) Other Treatment Pt laying in bed, agreeable to OT tx. Pt donned clothes at EOB, then used FWW to perform functional mobility to bathroom. Pt completed toileting, then stood at sink to wash hands. Pt returned to EOB, combed hair independently. Pt used FWW to perform functional mobility to therapy gym. OT tx focused on increasing RUE fine motor coordination. Pt removed nut from bolt, then replaced nut onto bolt, x5. Pt required cue to use fingers primarily, as she was compensating using her forearm. Pt required increased time to put nut back onto the bolt, but able to complete without assistance. Pt returned to room using FWW. Post tx, pt seated in bed, call light in reach and all needs met. Education OT Patient Education: Correct positioning, Exercise program, Modified ADL techniques, Progress toward Goal/Update tx plan, Purpose of tx/functional activities, Rehab process Teaching Recipient: Patient Teaching Methods: Discussion Response to Teaching: Verbalize Understanding OT Short Term Goals Short Term Goals Time Frame: May 08, 2021 Shower/bathe self: 4 Upper body dressin Lower body dressin OT [place] Goals Residential Goals Time Frame: May 18, 2021 Eating (QC): 6 Oral Hygiene (QC): 6 Toileting Hygiene (QC): 6 Shower/Bathe Self (QC): 6 Upper Body Dressing (QC): 6 Lower Body Dressing (QC): 6 On/Off Footwear (QC): 6 Additional Goals: 1-Demonstrate ADL Tasks, 2-Verbalize Understanding, 3-ImproveStrength/Lyn 1=Demonstrate adherence to instructed precautions during ADL tasks. 2=Patient will verbalize/demonstrate understanding of assistive devices/modifications for ADL. 3=Patient will improve strength/tolerance for activity to enable patient to perform ADL's. OT Education/Plan Problem List/Assessment Assessment: Decreased Activ Tolerance, Decreased UE Strength, Impaired Coordination, Impaired Funct Balance, Impaired I ADL's, Impaired Self-Care Skills, Restricted Funct UE ROM Discharge Recommendations Plan/Recommendations: Continue POC Treatment Plan/Plan of Care Patient would benefit from OT for education, treatment and training to promote independence in ADL's, mobility, safety and/or upper extremity function for ADL's. Plan of Care: ADL Retraining, Functional Mobility, Group Exercise/Act as Ind, UE Funct Exercise/Act Treatment Duration: May 18, 2021 Frequency: At least 5 of 7 days/Wk (IRF) Estimated Hrs Per Day: 1.5 hours per day Agreement: Yes Rehab Potential: Good Time/GCodes Start Time: 09:15 Stop Time: 10:15 Total Time Billed (hr/min): 60 Billed Treatment Time 1, ADL 3 (45'), FA (15') REECE ROSA OT Apr 30, 2021 10:03
--- NOTE | 2021-04-30 11:50 | Physical Therapy Daily Note ---
PT Daily Note-Current Subjective Pt sitting up in bed upon arrival. Pt agrees to PT. Pain Location: No Pain Reported Mental Status Patient Orientation: Person, Place, Situation Attachments: Oxygen (3L) Transfers SCALE: Activities may be completed with or without assistive devices. 3-Pphpkdpdzv-ihdyvuh completes the activity by him/herself with no assistance from a helper. 5-Set-up or Clean-up Assistance-helper sets up or cleans up; patient completes activity. [place] assists only prior to or following the activity. 4-Supervision or Touching Assistance-helper provides verbal cues and/or touching/steadying and/or contact guard assistance as patient completes activity. Assistance may be provided throughout the activity or intermittently. 3-Partial/Moderate Assistance-helper does LESS THAN HALF the effort. [place] lifts, holds or supports trunk or limbs, but provides less than half the effort. 2-Substantial/Maximal Assistance-helper does MORE THAN HALF the effort. [place] lifts or holds trunk or limbs and provides more than half the effort. 0-Qmpymnxdi-wylzsc does ALL the effort. Patient does none of the effort to complete the activity. Or, the assistance of 2 or more helpers is required for the patient to complete the activity. If activity was not attempted, code reason: 7-Patient Refused. 9-Not Applicable-not attempted and the patient did not perform the activity before the current illness, exacerbation or injury. 10-Not Attempted due to Environmental Limitations-(lack of equipment, weather restraints, etc.). 88-Not Attempted due to Medical Conditions or Safety Concerns. Lying to Sitting/Side of Bed(Q: 6 Sit to Stand (QC): 6 Toilet Transfer (QC): 5 Weight Bearing Full Weight Bearing Full Weight Bearing Gait Training Does the Patient Walk?: Yes Distance: 150' x2 Walk 10 feet (QC): 5 Walk 50 ft with 2 Turns(QC): 5 Walk 150 ft (QC): 5 Gait Persons Needed: 1 Exercises Supine Ex: Ankle pumps, Quad Set, Glut sets, Heel Slides, Short Arc Quads, Straight leg raise, Hip abd/add Supine Reps: 15 Seated Therapy Exercises: Ankle pumps, Long arc quads, Hip flexion, Hip abd/add Seated Reps: 15 NuStep Minutes: 15 NuStep Workload: 5 Treatments [id number]: TF to standing and practices Ad neida in room with focus on maintaining O2 line. Pt uses BR then amb. in hallway using [place]. Pt uses NuStep as well as completes completes Supine & Seated Ex. Pt returns to room to rest at end of tx. All needs met, call with pt. [id number]: TF from bed and amb. in hallway. Pt asks to use NuStep for 15m at WL 5 again. Pt returns to room at end of tx. Pt is Ad neida in room, nurse notified. Assessment Current Status: Good Progress Pt is Ad neida in room as of today. Pt is encouraged to use Huricane to ambulate. Nursing is notified. PT Short Term Goals Short Term Goals Time Frame: May 11, 2021 Roll Left & Right: 5 Sit to lyin Lying to sitting on side of be: 5 Sit to stand: 5 Chair/ymk-rw-jewgm transfer: 5 Toilet transfer: 5 Car transfer: 5 Walk 10 feet: 5 Walk 50 feet with two turns: 5 Walk 150 feet: 5 Walking 10ft on uneven surface: 5 1 step (curb): 5 4 steps: 5 12 steps: 5 Picking up objects: 5 Does pt use a wc or scooter: No Wheel 50ft w/2 turns: 88 Wheel 150 feet: 88 Type: N/A PT Prison Goals Prison Goals PT Prison Goals Time Frame: May 25, 2021 Roll Left & Right (QC): 6 Sit to Lying (QC): 6 Lying-Sitting on Side/Bed(QC): 6 Sit to Stand (QC): 6 Chair/Xbn-td-Nlrsc Xfer(QC): 6 Toilet Transfer (QC): 6 Car Transfer (QC): 6 Does the Patient Walk: Yes Walk 10 feet (QC): 6 Walk 50ft with 2 Turns (QC): 6 Walk 150 ft (QC): 6 Walking 10ft on Uneven Surface: 6 1 Step (curb) (QC): 6 4 Steps (QC): 6 12 Steps (QC): 6 Picking up an Object (QC): 6 Does the Pt use WC or Scooter?: No Wheel 50 feet with 2 turns (QC: 88 Type: N/A Wheel 150 feet: 88 Type: N/A PT Plan Problem List Problem List: Activity Tolerance Treatment/Plan Treatment Plan: Continue Plan of Care Treatment Plan: Bed Mobility, Education, Functional Activity Lyn, Functional Strength, Group Therapy, Gait, Safety, Therapeutic Exercise, Transfers Treatment Duration: Jun 29, 2021 Frequency: At least 5 of 7 days/Wk (IRF) Estimated Hrs Per Day: 1.5 hours per day Patient and/or Family Agrees t: Yes Safety Risks/Education Patient Education: Gait Training, Correct Positioning, Safety Issues Teaching Recipient: Patient Teaching Methods: Discussion Response to Teaching: Verbalize Understanding Time/GCodes Time In: 1030 Time Out: 1130 Total Billed Treatment Time: 60 Total Billed Treatment [id number]: 1, FA (15m), EX x2 (30m) & GT (15m) [id number]: 1, FA (15m) & EX (15m) VÍCTOR FAYE POLYSOMNOGRAPHER Apr 30, 2021 11:50
[2021-04-30] MEDS: HYDROcodone/APAP 5 MG/325 MG (LORTAB) TAB PO PRN (12:27)
--- NOTE | 2021-04-30 13:49 | Occupational Ther Daily Note ---
OT Current Status-Daily Note Subjective Pt seated in therapy gym after PT tx, agreeable to OT tx. Mental Status/Objective Patient Orientation: Person, Place, Time, Situation Attachments: Oxygen ADL-Treatment Therapy Code Descriptions/Definitions Functional [place] Measure: 0=Not Assessed/NA 4=Minimal Assistance 1=Total Assistance 5=Supervision or Setup 2=Maximal Assistance 6=Modified [place] 3=Moderate Assistance 7=Complete IndependenceSCALE: Activities may be completed with or without assistive devices. 6-Grmdmctycd-vofxgnb completes the activity by him/herself with no assistance from a helper. 5-Set-up or Clean-up Assistance-helper sets up or cleans up; patient completes activity. [place] assists only prior to or following the activity. 4-Supervision or Touching Assistance-helper provides verbal cues and/or touching/steadying and/or contact guard assistance as patient completes activity. Assistance may be provided throughout the activity or intermittently. 3-Partial/Moderate Assistance-helper does LESS THAN HALF the effort. [place] lifts, holds or supports trunk or limbs, but provides less than half the effort. 2-Substantial/Maximal Assistance-helper does MORE THAN HALF the effort. [place] lifts or holds trunk or limbs and provides more than half the effort. 8-Yeptntnxy-lilmbb does ALL the effort. Patient does none of the effort to complete the activity. Or, the assistance of 2 or more helpers is required for the patient to complete the activity. If activity was not attempted, code reason: 7-Patient Refused. 9-Not Applicable-not attempted and the patient did not perform the activity before the current illness, exacerbation or injury. 10-Not Attempted due to Environmental Limitations-(lack of equipment, weather restraints, etc.). 88-Not Attempted due to Medical Conditions or Safety Concerns. Toileting Hygiene (QC): 6 Toilet Transfer (QC): 6 Other Treatment Pt seated in therapy gym, used cane to transfer to chair with arm rests. OT tx with focus on increasing fine motor strength and coordination. Pt placed 1" pegs into foam pegboard using RUE, able to place x20 pegs in ~5 mins. Pt then removed beads from moderate resistance theraputty, using RUE for task as much as possible. Pt reports pins/needles in R hand, causing it to be more difficult to locate items. Pt returned to room using cane, used toilet independently, then sat in recliner. Post tx, pt seated in recliner, call light in reach and all needs met. Education OT Patient Education: Correct positioning, Modified ADL techniques, Progress toward Goal/Update tx plan, Purpose of tx/functional activities, Rehab process Teaching Recipient: Patient Teaching Methods: Discussion Response to Teaching: Verbalize Understanding OT Short Term Goals Short Term Goals Time Frame: May 08, 2021 Shower/bathe self: 4 Upper body dressin Lower body dressin OT Internet Researcher Goals Internet Researcher Goals Time Frame: May 18, 2021 Eating (QC): 6 Oral Hygiene (QC): 6 Toileting Hygiene (QC): 6 Shower/Bathe Self (QC): 6 Upper Body Dressing (QC): 6 Lower Body Dressing (QC): 6 On/Off Footwear (QC): 6 Additional Goals: 1-Demonstrate ADL Tasks, 2-Verbalize Understanding, 3- ImproveStrength/Lyn 1=Demonstrate adherence to instructed precautions during ADL tasks. 2=Patient will verbalize/demonstrate understanding of assistive devices/modifications for ADL. 3=Patient will improve strength/tolerance for activity to enable patient to perform ADL's. OT Education/Plan Problem List/Assessment Assessment: Decreased Activ Tolerance, Decreased UE Strength, Impaired Coordination, Impaired I ADL's, Impaired Self-Care Skills Discharge Recommendations Plan/Recommendations: Continue POC Treatment Plan/Plan of Care Patient would benefit from OT for education, treatment and training to promote independence in ADL's, mobility, safety and/or upper extremity function for ADL's. Plan of Care: ADL Retraining, Functional Mobility, Group Exercise/Act as Ind, UE Funct Exercise/Act Treatment Duration: May 18, 2021 Frequency: At least 5 of 7 days/Wk (IRF) Estimated Hrs Per Day: 1.5 hours per day Agreement: Yes Rehab Potential: Good Time/GCodes Start Time: 13:30 Stop Time: 14:00 Total Time Billed (hr/min): 30 Billed Treatment Time 1, FA 2 REECE ROSA OT Apr 30, 2021 13:49
[2021-04-30] MEDS: RIVAROXABAN 20 MG TABLET (XARELTO) PO SCH (16:33)
[2021-04-30] MEDS: ALPRAZolam 0.25 MG (XANAX) TAB PO PRN (20:27)
[2021-04-30 20:40] VITALS: BP 143/68
--- NOTE | 2021-05-01 05:24 | PM&R Progress Note ---
Subjective HPI/CC On Admission Date Seen by Provider: May 01, 2021 Time Seen by Provider: 10:00 Subjective/Events-last exam 05/01/2021: Pt swelling is a lot better Venous stasis dermatitis will be treated with Nystatin and Triamcinolone Will DC the AD ointment Overall doing pretty good and will be ready for DC on Thursday04/30/2021: Pt reports she is feeling weak Iron was given up on fourth floor and iron level is high at 191 Told me she was a previous alcoholic after her Edema is improved 04/29/2021: Pt doing pretty well Hgb 7.9 Redness from the venous stasis dermatitis Pain is an issue Maintain on oxygen 04/28/2021: Patient seems to be settling in well No falls Hemoglobin 7.9 Chronic pain issues discussed On 4 L of oxygen Chronic leg pain is the source of the chronic issues Smoking cessation discussed Check meds and labs Review of Systems General: Fatigue Pulmonary: Dyspnea Musculoskeletal: leg pain Objective Exam Vital Signs Vital Signs Date Time Temp Pulse Resp B/P (MAP) Pulse Ox O2 Delivery O2 Flow Rate FiO2 05/01/21 21:14 92 Nasal Cannula 3.00 05/01/21 20:41 36.3 75 16 133/73 (93) Capillary Refill : General Appearance: No Apparent Distress, WD/WN, Chronically ill, Obese HEENT: PERRL/EOMI, Normal ENT Inspection, Pharynx Normal Neck: Full Range of Motion, Normal Inspection, Non Tender, Supple, Carotid Bruit Respiratory: Chest Non Tender, Lungs Clear, No Accessory Muscle Use, No Respiratory Distress, Decreased Breath Sounds Cardiovascular: No Edema, No Gallop, No JVD, No Murmur, Normal Peripheral Pulses, Irregularly Irregular, Tachycardia Gastrointestinal: Normal Bowel Sounds, No Organomegaly, No Pulsatile Mass, Non Tender, Soft Back: Normal Inspection, No CVA Tenderness, No Vertebral Tenderness Extremity: Normal Capillary Refill, Normal Inspection, Normal Range of Motion, Non Tender, No Calf Tenderness, No Pedal Edema Neurologic/Psychiatric: Alert, Oriented x3, No Motor/Sensory Deficits, 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 FIM Transfers Therapy Code Descriptions/Definitions Functional [place] Measure: 0=Not Assessed/NA 4=Minimal Assistance 1=Total Assistance 5=Supervision or Setup 2=Maximal Assistance 6=Modified [place] 3=Moderate Assistance 7=Complete IndependenceSCALE: Activities may be completed with or without assistive devices. 2-Pkpxspgxir-kujkohn completes the activity by him/herself with no assistance from a helper. 5-Set-up or Clean-up Assistance-helper sets up or cleans up; patient completes activity. [place] assists only prior to or following the activity. 4-Supervision or Touching Assistance-helper provides verbal cues and/or touching/steadying and/or contact guard assistance as patient completes activit y. Assistance may be provided throughout the activity or intermittently. 3-Partial/Moderate Assistance-helper does LESS THAN HALF the effort. [place] lifts, holds or supports trunk or limbs, but provides less than half the effort. 2-Substantial/Maximal Assistance-helper does MORE THAN HALF the effort. [place] lifts or holds trunk or limbs and provides more than half the effort. 9-Cyguqkraq-eqosno does ALL the effort. Patient does none of the effort to complete the activity. Or, the assistance of 2 or more helpers is required for the patient to complete the activity. If activity was not attempted, code reason: 7-Patient Refused. 9-Not Applicable-not attempted and the patient did not perform the activity before the current illness, exacerbation or injury. 10-Not Attempted due to Environmental Limitations-(lack of equipment, weather restraints, etc.). 88-Not Attempted due to Medical Conditions or Safety Concerns. Roll Left to Right (QC): 4 Sit to Lying (QC): 5 Sit to Stand (QC): 6 Chair/Qdg-vk-Pqbol Xfer(QC): 4 Car Transfer (QC): 88 Gait Training Does the Patient Walk?: Yes Distance: 150' x2 Walk 10 feet (QC): 5 Walk 50 ft with 2 Turns(QC): 5 Walk 150 ft (QC): 5 Walking 10ft/uneven surface-QC: 3 Gait Persons Needed: 1 Gait Assistive Device: FWW Wheelchair Training Does the Pt Use a Wheelchair?: No Wheel 50 ft with 2 turns (QC): 88 Wheel 150 ft (QC): 88 Stair Training #of Steps: 0 1 Step (curb) (QC): 88 4 Steps (QC): 88 12 Steps (QC): 88 Balance Picking up an Object (QC): 4 ADL-Treatment Eating (QC): 6 (IND) Oral Hygiene (QC): 6 (IND standing at sink) Shower/Bathe Self (QC): 7 Upper Body Dressing (QC): 5 (set up) Lower Body Dressing (QC): 5 (set up) On/Off Footwear (QC): 5 (set up for gripper socks) Toileting Hygiene (QC): 6 Toilet Transfer (QC): 6 Assessment/Plan Assessment and Plan Assess & Plan/Chief Complaint Assessment: Severe debility with multiple hospital stays Oxygen dependent COPD end-stage Smoker Atrial fibrillation Congestive heart failure Anemia Chronic kidney disease Chronic lymphedema bilateral lower extremities Venous stasis dermatitis Bipolar Anxiety Plan: Supportive care Oxygen supplementation 27/04 Monitor labs Monitor kidney function Aggressive therapy 04/28/2021: Maintain oxygen Pain control Monitor hemoglobin 04/29/2021: Oxygen to maintain Supportive care Monitor closely 04/30/2021: Supportive care Pain control Oxygen supplementation 05/01/2021: Supportive care Discharge on Thursday Change ointments for lower extremities (1) Debility Status: Acute (2) Heart failure Status: Acute (3) Venous stasis dermatitis of both lower extremities Status: Acute (4) Lymphedema of both lower extremities Status: Chronic (5) Paroxysmal A-fib Status: Chronic (6) Very heavy cigarette smoker (40 or more per day) Status: Acute (7) HTN (hypertension) Status: Chronic (8) Pulmonary hypertension (9) Chronic renal insufficiency Status: Acute (10) COPD (chronic obstructive pulmonary disease) Status: Acute (11) Chronic anemia Status: Acute (12) Pedal edema Status: Acute (13) DVT (deep venous thrombosis) Status: Chronic TAL YANEZ DO May 01, 2021 05:24
[2021-05-01] MEDS: KCL 20 MEQ TAB (K-DUR) PO SCH (06:09)
[2021-05-01] MEDS: FUROSEMIDE 40 MG (LASIX) TAB PO SCH (06:11)
[2021-05-01 07:22] VITALS: BP 122/59
[2021-05-01] MEDS: RT--FLUTICASONE/SALMETEROL 232-14 (AIRDUO RespiCLICK) IH SCH ×2 (07:38→21:14)
[2021-05-01] MEDS: UMECLIDINIUM BROMIDE (INCRUSE ELLIPTA) 7'S IH SCH (07:39)
[2021-05-01] MEDS: LORATADINE (CLARITIN) 10 MG TAB PO SCH (08:11)
[2021-05-01] MEDS: DOCUSATE SODIUM 100 MG (COLACE) CAP PO SCH ×2 (08:12→20:29)
[2021-05-01] MEDS: ASPIRIN 81 MG CHEW (CHILDREN'S ASA) PO SCH (08:12)
[2021-05-01] MEDS: GABAPENTIN 600 MG (NEURONTIN) TAB PO SCH ×3 (08:12→20:29)
[2021-05-01] MEDS: FLUoxetine HCL 10 MG (PROzac) CAPSULE/TABLET PO SCH (08:12)
[2021-05-01] MEDS: dilTIAZem120 MG (CARDIZEM CD) CAP PO SCH (08:13)
[2021-05-01] MEDS: meTOprolol TARTRATE 50 MG (LOPRESSOR) TAB PO SCH ×2 (08:13→20:29)
[2021-05-01] MEDS: polyethylene glycoL POWDER 17 GM (MIRALAX) PACK PO SCH ×2 (08:15→19:25)
[2021-05-01] MEDS: A & D OINT 113 GM TUBE TOP SCH (08:16)
[2021-05-01] MEDS: SENNA W/DOCUSATE (SENOKOT S) TABLET PO SCH ×2 (08:16→20:30)
--- NOTE | 2021-05-01 10:00 | Occupational Ther Daily Note ---
OT Current Status-Daily Note Subjective Pt in bed, agreeable to OT. Min encouragement required in order for pt to agree to full shower instead of sponge bath. ADL-Treatment Therapy Code Descriptions/Definitions Functional [place] Measure: 0=Not Assessed/NA 4=Minimal Assistance 1=Total Assistance 5=Supervision or Setup 2=Maximal Assistance 6=Modified [place] 3=Moderate Assistance 7=Complete IndependenceSCALE: Activities may be completed with or without assistive devices. 9-Qnnrvvvxzo-ixfuese completes the activity by him/herself with no assistance from a helper. 5-Set-up or Clean-up Assistance-helper sets up or cleans up; patient completes activity. [place] assists only prior to or following the activity. 4-Supervision or Touching Assistance-helper provides verbal cues and/or touching/steadying and/or contact guard assistance as patient completes activi ty. Assistance may be provided throughout the activity or intermittently. 3-Partial/Moderate Assistance-helper does LESS THAN HALF the effort. [place] lifts, holds or supports trunk or limbs, but provides less than half the effort. 2-Substantial/Maximal Assistance-helper does MORE THAN HALF the effort. [place] lifts or holds trunk or limbs and provides more than half the effort. 2-Bnhfvarsi-ftrlvw does ALL the effort. Patient does none of the effort to complete the activity. Or, the assistance of 2 or more helpers is required for the patient to complete the activity. If activity was not attempted, code reason: 7-Patient Refused. 9-Not Applicable-not attempted and the patient did not perform the activity before the current illness, exacerbation or injury. 10-Not Attempted due to Environmental Limitations-(lack of equipment, weather restraints, etc.). 88-Not Attempted due to Medical Conditions or Safety Concerns. Eating (QC): 6 Oral Hygiene (QC): 6 (IND standing at sink) Shower/Bathe Self (QC): 6 (IND, able to wash/dry all parts) Upper Body Dressing (QC): 6 (IND with farmworker pullet farm shirt.) Lower Body Dressing (QC): 6 (IND with shorts) On/Off Footwear: 6 (IND with gripper socks.) Toileting Hygiene (QC): 6 (IND with hygiene and clothing management.) Toilet Transfer (QC): 6 (IND on/off toilet) Other Treatment Pt in bed, transferred to EOB and performed functional mobility around room to gather clothing and ADL supplies. Pt completed toileting, then transferred to SC. Pt completed shower, dried off, then gathered clothing from counter to get dressed. Pt stood at sink to complete oral care, then transferred to bed. Post tx, pt in bed, call light in reach and all needs met Education OT Patient Education: Correct positioning, Modified ADL techniques, Progress toward Goal/Update tx plan, Purpose of tx/functional activities, Rehab process Teaching Recipient: Patient Teaching Methods: Discussion Response to Teaching: Verbalize Understanding OT Short Term Goals Short Term Goals Time Frame: May 08, 2021 Shower/bathe self: 4 Upper body dressin Lower body dressin OT Group Insurance Specialist Goals Group Insurance Specialist Goals Time Frame: May 18, 2021 Eating (QC): 6 Oral Hygiene (QC): 6 Toileting Hygiene (QC): 6 Shower/Bathe Self (QC): 6 Upper Body Dressing (QC): 6 Lower Body Dressing (QC): 6 On/Off Footwear (QC): 6 Additional Goals: 1-Demonstrate ADL Tasks, 2-Verbalize Understanding, 3- ImproveStrength/Lyn 1=Demonstrate adherence to instructed precautions during ADL tasks. 2=Patient will verbalize/demonstrate understanding of assistive devices/modifications for ADL. 3=Patient will improve strength/tolerance for activity to enable patient to perform ADL's. OT Education/Plan Problem List/Assessment Assessment: Decreased Activ Tolerance, Decreased UE Strength, Impaired I ADL's Discharge Recommendations Plan/Recommendations: Continue POC Treatment Plan/Plan of Care Patient would benefit from OT for education, treatment and training to promote independence in ADL's, mobility, safety and/or upper extremity function for ADL's. Plan of Care: ADL Retraining, Functional Mobility, Group Exercise/Act as Ind, UE Funct Exercise/Act Treatment Duration: May 18, 2021 Frequency: At least 5 of 7 days/Wk (IRF) Estimated Hrs Per Day: 1.5 hours per day Agreement: Yes Rehab Potential: Good Time/GCodes Start Time: 09:00 Stop Time: 10:00 Total Time Billed (hr/min): 60 Billed Treatment Time 1, ADL 4 REECE ROSA OT May 01, 2021 10:00
--- NOTE | 2021-05-01 11:07 | Physical Therapy Daily Note ---
PT Daily Note-Current Subjective Pt sitting up in bed upon arrival. Pt agree to PT. Pain Location: No Pain Reported Mental Status Patient Orientation: Person, Place, Time, Situation Transfers SCALE: Activities may be completed with or without assistive devices. 5-Tmvgijmvty-ngmtnfr completes the activity by him/herself with no assistance from a helper. 5-Set-up or Clean-up Assistance-helper sets up or cleans up; patient completes activity. [place] assists only prior to or following the activity. 4-Supervision or Touching Assistance-helper provides verbal cues and/or touching/steadying and/or contact guard assistance as patient completes activity. Assistance may be provided throughout the activity or intermittently. 3-Partial/Moderate Assistance-helper does LESS THAN HALF the effort. [place] lifts, holds or supports trunk or limbs, but provides less than half the effort. 2-Substantial/Maximal Assistance-helper does MORE THAN HALF the effort. [place] lifts or holds trunk or limbs and provides more than half the effort. 1-Vmxphvfvp-wwivlr does ALL the effort. Patient does none of the effort to complete the activity. Or, the assistance of 2 or more helpers is required for the patient to complete the activity. If activity was not attempted, code reason: 7-Patient Refused. 9-Not Applicable-not attempted and the patient did not perform the activity before the current illness, exacerbation or injury. 10-Not Attempted due to Environmental Limitations-(lack of equipment, weather restraints, etc.). 88-Not Attempted due to Medical Conditions or Safety Concerns. Sit to Stand (QC): 6 Toilet Transfer (QC): 6 Weight Bearing Full Weight Bearing Full Weight Bearing Gait Training Does the Patient Walk?: Yes Distance: 150' x2 Walk 10 feet (QC): 6 Walk 50 ft with 2 Turns(QC): 6 Walk 150 ft (QC): 6 Gait Persons Needed: 1 Gait Assistive Device: Cane Small Base Quad Wheelchair Training Does the Pt Use a Wheelchair?: No Stair Training Stair Training: Handrails/: 2 handrails #of Steps: 8 1 Step (curb) (QC): 5 4 Steps (QC): 5 Stairs: Pattern: Step to Exercises NuStep Minutes: 15 NuStep Workload: 5 Treatments Finishes discussion w/SW. TF to standing and uses BR before leaving room for tx. Pt amb. in hallway, uses NuStep for 15m at WL 5. After rest break, Pt completes Seated Ex before standing and amb. in hallway. Pt returns to room to rest at end of tx. All needs met, call light in hand. Assessment Current Status: Good Progress Pt is Mod I for transfers and mobility. VP PUBLISHER DEVELOPMENT given occasional VC for safety but these are decreasing in number. PT Short Term Goals Short Term Goals Time Frame: May 11, 2021 Roll Left & Right: 5 Sit to lyin Lying to sitting on side of be: 5 Sit to stand: 5 Chair/dyf-it-akoui transfer: 5 Toilet transfer: 5 Car transfer: 5 Walk 10 feet: 5 Walk 50 feet with two turns: 5 Walk 150 feet: 5 Walking 10ft on uneven surface: 5 1 step (curb): 5 4 steps: 5 12 steps: 5 Picking up objects: 5 Does pt use a wc or scooter: No Wheel 50ft w/2 turns: 88 Wheel 150 feet: 88 Type: N/A PT Timber Cruiser Goals Timber Cruiser Goals PT Timber Cruiser Goals Time Frame: May 25, 2021 Roll Left & Right (QC): 6 Sit to Lying (QC): 6 Lying-Sitting on Side/Bed(QC): 6 Sit to Stand (QC): 6 Chair/Esr-mp-Grgcs Xfer(QC): 6 Toilet Transfer (QC): 6 Car Transfer (QC): 6 Does the Patient Walk: Yes Walk 10 feet (QC): 6 Walk 50ft with 2 Turns (QC): 6 Walk 150 ft (QC): 6 Walking 10ft on Uneven Surface: 6 1 Step (curb) (QC): 6 4 Steps (QC): 6 12 Steps (QC): 6 Picking up an Object (QC): 6 Does the Pt use WC or Scooter?: No Wheel 50 feet with 2 turns (QC: 88 Type: N/A Wheel 150 feet: 88 Type: N/A PT Plan Problem List Problem List: Activity Tolerance Treatment/Plan Treatment Plan: Continue Plan of Care Treatment Plan: Bed Mobility, Education, Functional Activity Lyn, Functional Strength, Group Therapy, Gait, Safety, Therapeutic Exercise, Transfers Treatment Duration: Jun 29, 2021 Frequency: At least 5 of 7 days/Wk (IRF) Estimated Hrs Per Day: 1.5 hours per day Patient and/or Family Agrees t: Yes Safety Risks/Education Patient Education: Gait Training, Correct Positioning, Safety Issues Teaching Recipient: Patient Teaching Methods: Discussion Response to Teaching: Verbalize Understanding Time/GCodes Time In: 1000 Time Out: 1100 Total Billed Treatment Time: 60 Total Billed Treatment 1, FA (15m), GT (15m) & EX x2 (30m) VÍCTOR FAYE VP PUBLISHER DEVELOPMENT May 01, 2021 11:07
[2021-05-01] MEDS: TRIAMCINOLONE 0.1% CR (KENALOG) 80 GM TUBE TP SCH ×2 (11:20→20:30)
[2021-05-01] MEDS: NYSTATIN CREAM (MYCOSTATIN) 30 GM TUBE TP SCH ×2 (11:21→20:30)
--- NOTE | 2021-05-01 15:25 | Therapy Group Daily Note ---
Therapy Daily Group Note Patient Education Topic Other List Below (Safety Signs and what they mean) Exercises LE Seated Exercise, UE Exercise Session Ratio (pt:therapist): 4:1 Goal of Session: UE/LE Strengthing, Other (list) (Safety Signs and what they mean) Goal Met for this Session: Yes Pt Benefit of Group: Contributions to Others, F/U Use of Strategies @Home, Increased Functional Safety, Increased Functional Strength, Improved Cognition, Recognition of Peers, Socialization Other/Notes Pt ambulated to PT/OT Group. Group consisted of Introduction (Name, Where from), Socialization, Seated LE & UE Exercises as well Safety Sign Bingo and what the signs mean/how can safety be obtained. Pt participated in Group by actively listening to peers during Group, completing exercises and finding the safety signs as they are called out. Pt returns to room to use restroom and returns to recliner at end of Group with all needs met, call light in hand. Start Time: 13:00 Stop Time: 14:20 Total Billed Treatment Time: 80 Total Billed Treatment 1, GRP (80m) VÍCTOR FAYE DEMOLITION HAMMER OPERATOR May 01, 2021 15:25
[2021-05-01] MEDS: RIVAROXABAN 20 MG TABLET (XARELTO) PO SCH (17:14)
[2021-05-01] MEDS: ALPRAZolam 0.25 MG (XANAX) TAB PO PRN (18:33)
[2021-05-01 20:41] VITALS: BP 133/73
--- NOTE | 2021-05-02 05:36 | PM&R Progress Note ---
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 after her Edema is improved 04/29/2021: Pt doing pretty well Hgb 7.9 Redness from the venous stasis dermatitis Pain is an issue Maintain on oxygen 04/28/2021: Patient seems to be settling in well No falls Hemoglobin 7.9 Chronic pain issues discussed On 4 L of oxygen Chronic leg pain is the source of the chronic issues Smoking cessation discussed Check meds and labs Review of Systems Pulmonary: Dyspnea Musculoskeletal: leg pain Objective Exam Vital Signs Vital Signs Date Time Temp Pulse Resp B/P (MAP) Pulse Ox O2 Delivery O2 Flow Rate FiO2 05/02/21 21:28 Nasal Cannula 3.00 05/02/21 19:54 36.8 77 20 141/67 (91) 91 Capillary Refill : General Appearance: No Apparent Distress, WD/WN, Chronically ill, Obese HEENT: PERRL/EOMI, Normal ENT Inspection, Pharynx Normal Neck: Full Range of Motion, Normal Inspection, Non Tender, Supple, Carotid Bruit Respiratory: Chest Non Tender, Lungs Clear, No Accessory Muscle Use, No Respiratory Distress, Decreased Breath Sounds Cardiovascular: No Edema, No Gallop, No JVD, No Murmur, Normal Peripheral Pulses, Irregularly Irregular, Tachycardia Gastrointestinal: Normal Bowel Sounds, No Organomegaly, No Pulsatile Mass, Non Tender, Soft Back: Normal Inspection, No CVA Tenderness, No Vertebral Tenderness Extremity: Normal Capillary Refill, Normal Inspection, Normal Range of Motion, Non Tender, No Calf Tenderness, No Pedal Edema Neurologic/Psychiatric: Alert, Oriented x3, No Motor/Sensory Deficits, 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 FIM Transfers Therapy Code Descriptions/Definitions Functional [place] Measure: 0=Not Assessed/NA 4=Minimal Assistance 1=Total Assistance 5=Supervision or Setup 2=Maximal Assistance 6=Modified [place] 3=Moderate Assistance 7=Complete IndependenceSCALE: Activities may be completed with or without assistive devices. 3-Zivymyotar-mstahnu completes the activity by him/herself with no assistance from a helper. 5-Set-up or Clean-up Assistance-helper sets up or cleans up; patient completes activity. [place] assists only prior to or following the activity. 4-Supervision or Touching Assistance-helper provides verbal cues and/or touching/steadying and/or contact guard assistance as patient completes activity. Assistance may be provided throughout the activity or intermittently. 3-Partial/Moderate Assistance-helper does LESS THAN HALF the effort. [place] lifts, holds or supports trunk or limbs, but provides less than half the effort. 2-Substantial/Maximal Assistance-helper does MORE THAN HALF the effort. [place] lifts or holds trunk or limbs and provides more than half the effort. 9-Wmxgzinrk-aqhcup does ALL the effort. Patient does none of the effort to complete the activity. Or, the assistance of 2 or more helpers is required for the patient to complete the activity. If activity was not attempted, code reason: 7-Patient Refused. 9-Not Applicable-not attempted and the patient did not perform the activity before the current illness, exacerbation or injury. 10-Not Attempted due to Environmental Limitations-(lack of equipment, weather restraints, etc.). 88-Not Attempted due to Medical Conditions or Safety Concerns. Roll Left to Right (QC): 4 Sit to Lying (QC): 5 Sit to Stand (QC): 6 Chair/Bnc-et-Kptmh Xfer(QC): 4 Car Transfer (QC): 88 Gait Training Does the Patient Walk?: Yes Distance: 150' x2 Walk 10 feet (QC): 6 Walk 50 ft with 2 Turns(QC): 6 Walk 150 ft (QC): 6 Walking 10ft/uneven surface-QC: 3 Gait Persons Needed: 1 Gait Assistive Device: Cane Small Base Quad Wheelchair Training Does the Pt Use a Wheelchair?: No Wheel 50 ft with 2 turns (QC): 88 Wheel 150 ft (QC): 88 Stair Training Stair Training: Handrails/: 2 handrails #of Steps: 8 1 Step (curb) (QC): 5 4 Steps (QC): 5 12 Steps (QC): 88 Stairs: Pattern: Step to Balance Picking up an Object (QC): 4 ADL-Treatment Eating (QC): 6 Oral Hygiene (QC): 6 (IND standing at sink) Shower/Bathe Self (QC): 6 (IND, able to wash/dry all parts) Upper Body Dressing (QC): 6 (IND with parts puller shirt.) Lower Body Dressing (QC): 6 (IND with shorts) On/Off Footwear (QC): 6 (IND with gripper socks.) Toileting Hygiene (QC): 6 (IND with hygiene and clothing management.) Toilet Transfer (QC): 6 (IND on/off toilet) Assessment/Plan Assessment and Plan Assess & Plan/Chief Complaint Assessment: Severe debility with multiple hospital stays Oxygen dependent COPD end-stage Smoker Atrial fibrillation Congestive heart failure Anemia Chronic kidney disease Chronic lymphedema bilateral lower extremities Venous stasis dermatitis Bipolar Anxiety Plan: Supportive care Oxygen supplementation 27/04 Monitor labs Monitor kidney function Aggressive therapy 04/28/2021: Maintain oxygen Pain control Monitor hemoglobin 04/29/2021: Oxygen to maintain Supportive care Monitor closely 04/30/2021: Supportive care Pain control Oxygen supplementation 05/01/2021: Supportive care Discharge on Thursday Change ointments for lower extremities 05/02/2021: Supportive care Oxygen maintain (1) Debility Status: Acute (2) Heart failure Status: Acute (3) Venous stasis dermatitis of both lower extremities Status: Acute (4) Lymphedema of both lower extremities Status: Chronic (5) Paroxysmal A-fib Status: Chronic (6) Very heavy cigarette smoker (40 or more per day) Status: Acute (7) HTN (hypertension) Status: Chronic (8) Pulmonary hypertension (9) Chronic renal insufficiency Status: Acute (10) COPD (chronic obstructive pulmonary disease) Status: Acute (11) Chronic anemia Status: Acute (12) Pedal edema Status: Acute (13) DVT (deep venous thrombosis) Status: Chronic TAL YANEZ DO May 02, 2021 05:36
[2021-05-02] MEDS: KCL 20 MEQ TAB (K-DUR) PO SCH (06:01)
[2021-05-02] MEDS: FUROSEMIDE 40 MG (LASIX) TAB PO SCH (06:01)
[2021-05-02] MEDS: HYDROcodone/APAP 5 MG/325 MG (LORTAB) TAB PO PRN ×2 (06:03→11:13)
[2021-05-02] MEDS: UMECLIDINIUM BROMIDE (INCRUSE ELLIPTA) 7'S IH SCH (07:12)
[2021-05-02] MEDS: RT--FLUTICASONE/SALMETEROL 232-14 (AIRDUO RespiCLICK) IH SCH ×2 (07:12→17:08)
[2021-05-02 07:30] VITALS: BP 139/64
[2021-05-02] MEDS: meTOprolol TARTRATE 50 MG (LOPRESSOR) TAB PO SCH ×2 (08:44→20:06)
[2021-05-02] MEDS: DOCUSATE SODIUM 100 MG (COLACE) CAP PO SCH ×2 (08:44→20:06)
[2021-05-02] MEDS: FLUoxetine HCL 10 MG (PROzac) CAPSULE/TABLET PO SCH (08:44)
[2021-05-02] MEDS: LORATADINE (CLARITIN) 10 MG TAB PO SCH (08:44)
[2021-05-02] MEDS: dilTIAZem120 MG (CARDIZEM CD) CAP PO SCH (08:44)
[2021-05-02] MEDS: polyethylene glycoL POWDER 17 GM (MIRALAX) PACK PO SCH ×2 (08:44→19:28)
[2021-05-02] MEDS: GABAPENTIN 600 MG (NEURONTIN) TAB PO SCH ×3 (08:44→20:06)
[2021-05-02] MEDS: SENNA W/DOCUSATE (SENOKOT S) TABLET PO SCH ×2 (08:44→19:28)
[2021-05-02] MEDS: ASPIRIN 81 MG CHEW (CHILDREN'S ASA) PO SCH (08:45)
[2021-05-02] MEDS: NYSTATIN CREAM (MYCOSTATIN) 30 GM TUBE TP SCH ×2 (08:45→20:08)
[2021-05-02] MEDS: TRIAMCINOLONE 0.1% CR (KENALOG) 80 GM TUBE TP SCH ×2 (08:46→20:08)
--- NOTE | 2021-05-02 11:05 | Physical Therapy Daily Note ---
PT Daily Note-Current Subjective Pt sitting in recliner upon arrival. Pt awaiting oitment for B LE so socks could be donned for tx. Pain Location: No Pain Reported Mental Status Patient Orientation: Person, Place, Time, Situation Attachments: Oxygen (3L) Transfers SCALE: Activities may be completed with or without assistive devices. 0-Ttwqzrwtuk-lreohqf completes the activity by him/herself with no assistance from a helper. 5-Set-up or Clean-up Assistance-helper sets up or cleans up; patient completes activity. [place] assists only prior to or following the activity. 4-Supervision or Touching Assistance-helper provides verbal cues and/or touching/steadying and/or contact guard assistance as patient completes a ctivity. Assistance may be provided throughout the activity or intermittently. 3-Partial/Moderate Assistance-helper does LESS THAN HALF the effort. [place] lifts, holds or supports trunk or limbs, but provides less than half the effort. 2-Substantial/Maximal Assistance-helper does MORE THAN HALF the effort. [place] lifts or holds trunk or limbs and provides more than half the effort. 1-Xlwgwohet-dstaft does ALL the effort. Patient does none of the effort to complete the activity. Or, the assistance of 2 or more helpers is required for the patient to complete the activity. If activity was not attempted, code reason: 7-Patient Refused. 9-Not Applicable-not attempted and the patient did not perform the activity before the current illness, exacerbation or injury. 10-Not Attempted due to Environmental Limitations-(lack of equipment, weather restraints, etc.). 88-Not Attempted due to Medical Conditions or Safety Concerns. Weight Bearing Full Weight Bearing Full Weight Bearing Gait Training Does the Patient Walk?: Yes Distance: 150' Walk 10 feet (QC): 6 Walk 50 ft with 2 Turns(QC): 6 Walk 150 ft (QC): 6 Gait Persons Needed: 1 Gait Assistive Device: Cane Small Base Quad Wheelchair Training Does the Pt Use a Wheelchair?: No Exercises Standing: Side steps, Weight shifts Treatments [id number]: OT/PT cotreat due to skill of 2 clinicians required which a delivery technician could not perform in order to focus on higher level balance tasks, decrease fall risk, and due to pt's limitations in pain, activity tolerance, and dynamic balance. OT focused on UE placement, cues for sequencing and safety, PT focused on LE placement, dynamic balance, and gross overall movements. Pt stood in parallel bars on AirEx mat, hit balloon back and forth with OT as PT assisted with balance as needed, CGA. In order to increase the challenge, pt instructed to list off names from A-Z with each hit of the balloon, stating with boy names, then repeating task with girl names. Pt occasionally needed min A for balance. Pt sat in chair to rest, expressed concerns of getting up off of the floor if she were to fall at home. Pt agreeable to completing floor transfer. Pt transferred to EOM, then assisted to mat on floor. Pt able to transfer from sitting, to quadruped position, then up onto her R foot and push to stand, pivoting to return to sitting on mat (CGA overall with floor transfer). Pt educated on safety aspects with getting up off of the floor, including using stable surfaces, and having a plan for each room of the house. Pt states she felt more comfortable after practicing the transfer. Pt took rest break, then side stepped while bouncing ball back and forth, CGA to start with, then SBA towards end of task. Pt did not have LOB with task. Assessment Current Status: Good Progress Pt is reassured of progress and independence of task. Pt is unsure of self but is making progress with activity tolerance and mobility. PT Short Term Goals Short Term Goals Time Frame: May 11, 2021 Roll Left & Right: 5 Sit to lyin Lying to sitting on side of be: 5 Sit to stand: 5 Chair/ikk-xg-uzvpk transfer: 5 Toilet transfer: 5 Car transfer: 5 Walk 10 feet: 5 Walk 50 feet with two turns: 5 Walk 150 feet: 5 Walking 10ft on uneven surface: 5 1 step (curb): 5 4 steps: 5 12 steps: 5 Picking up objects: 5 Does pt use a wc or scooter: No Wheel 50ft w/2 turns: 88 Wheel 150 feet: 88 Type: N/A PT Jail Goals Marine Electrician Goals PT Jail Goals Time Frame: May 25, 2021 Roll Left & Right (QC): 6 Sit to Lying (QC): 6 Lying-Sitting on Side/Bed(QC): 6 Sit to Stand (QC): 6 Chair/Ttd-iz-Vtlcu Xfer(QC): 6 Toilet Transfer (QC): 6 Car Transfer (QC): 6 Does the Patient Walk: Yes Walk 10 feet (QC): 6 Walk 50ft with 2 Turns (QC): 6 Walk 150 ft (QC): 6 Walking 10ft on Uneven Surface: 6 1 Step (curb) (QC): 6 4 Steps (QC): 6 12 Steps (QC): 6 Picking up an Object (QC): 6 Does the Pt use WC or Scooter?: No Wheel 50 feet with 2 turns (QC: 88 Type: N/A Wheel 150 feet: 88 Type: N/A PT Plan Problem List Problem List: Activity Tolerance Treatment/Plan Treatment Plan: Continue Plan of Care Treatment Plan: Bed Mobility, Education, Functional Activity Lyn, Functional Strength, Group Therapy, Gait, Safety, Therapeutic Exercise, Transfers Treatment Duration: Jun 29, 2021 Frequency: At least 5 of 7 days/Wk (IRF) Estimated Hrs Per Day: 1.5 hours per day Patient and/or Family Agrees t: Yes Safety Risks/Education Patient Education: Gait Training, Transfer Techniques, Correct Positioning, Safety Issues Teaching Recipient: Patient Teaching Methods: Discussion Response to Teaching: Verbalize Understanding Time/GCodes Time In: 1000 Time Out: 1100 Total Billed Treatment Time: 60 Total Billed Treatment Co-treat w/OT for 45m 1, FA x3 (45m) & GT (15m) VÍCTOR FAYE CLINICAL OPERATIONS MANAGER May 02, 2021 11:05
--- NOTE | 2021-05-02 11:21 | Occupational Ther Daily Note ---
OT Current Status-Daily Note Subjective Pt agreeable to OT/PT cotreat to focus on higher level balance tasks, and then OT tx following. 9/10 pain in lower legs/feet. Pain Numeric Pain Scale: 9 Location Body Site: Foot Mental Status/Objective Patient Orientation: Normal For Age Attachments: Oxygen (3L) ADL-Treatment Therapy Code Descriptions/Definitions Functional [place] Measure: 0=Not Assessed/NA 4=Minimal Assistance 1=Total Assistance 5=Supervision or Setup 2=Maximal Assistance 6=Modified [place] 3=Moderate Assistance 7=Complete IndependenceSCALE: Activities may be completed with or without assistive devices. 5-Rtglvqlobu-kxmfdjv completes the activity by him/herself with no assistance from a helper. 5-Set-up or Clean-up Assistance-helper sets up or cleans up; patient completes activity. [place] assists only prior to or following the activity. 4-Supervision or Touching Assistance-helper provides verbal cues and/or touching/steadying and/or contact guard assistance as patient completes activity. Assistance may be provided throughout the activity or intermittently. 3-Partial/Moderate Assistance-helper does LESS THAN HALF the effort. [place] lifts, holds or supports trunk or limbs, but provides less than half the effort. 2-Substantial/Maximal Assistance-helper does MORE THAN HALF the effort. [place] lifts or holds trunk or limbs and provides more than half the effort. 1-Qvuwkbojd-nricec does ALL the effort. Patient does none of the effort to complete the activity. Or, the assistance of 2 or more helpers is required for the patient to complete the activity. If activity was not attempted, code reason: 7-Patient Refused. 9-Not Applicable-not attempted and the patient did not perform the activity before the current illness, exacerbation or injury. 10-Not Attempted due to Environmental Limitations-(lack of equipment, weather restraints, etc.). 88-Not Attempted due to Medical Conditions or Safety Concerns. Toileting Hygiene (QC): 6 Toilet Transfer (QC): 6 Other Treatment [id number]: OT/PT cotreat due to skill of 2 clinicians required which a vision rehabilitation therapist could not perform in order to focus on higher level balance tasks, decrease fall risk, and due to pt's limitations in pain, activity tolerance, and dynamic balance. OT focused on UE placement, cues for sequencing and safety, PT focused on LE placement, dynamic balance, and gross overall movements. Pt stood in parallel bars on AirEx mat, hit balloon back and forth with OT as PT assisted with balance as needed, CGA. In order to increase the challenge, pt instructed to list off names from A-Z with each hit of the balloon, stating with boy names, then repeating task with girl names. Pt occasionally needed min A for balance. Pt sat in chair to rest, expressed concerns of getting up off of the floor if she were to fall at home. Pt agreeable to completing floor transfer. Pt transferred to EOM, then assisted to mat on floor. Pt able to transfer from sitting, to quadruped position, then up onto her R foot and push to stand, pivoting to return to sitting on mat (CGA overall with floor transfer). Pt educa vivian on safety aspects with getting up off of the floor, including using stable surfaces, and having a plan for each room of the house. Pt states she felt more comfortable after practicing the transfer. Pt took rest break, then side stepped while bouncing ball back and forth, CGA to start with, then SBA towards end of task. Pt did not have LOB with task. [id number] OT tx: Pt used cane to return to her room, SBA. Pt used toilet independently, then stood at sink to wash her hands. Pt performed functional mobility around her room to gather dirty clothes, then went to laundry area. Pt able to place laundry into washer, place detergent and start washer with SBA. She returned to her room, transferring to recliner. Post tx, pt seated in recliner, call light in reach and all needs met. [id number]: Pt upright in recliner, agreeable to OT Tx. Pt used cane to perform functional mobility to therapy gym. In order to increase fine motor strength, coordination, and activity tolerance, pt placed 1" pegs into foam pegboard with RUE. Pt able to complete x100 pegs. Pt returned to room, post tx, pt seated in recliner, call light in reach and all needs met. Education OT Patient Education: Correct positioning, Modified ADL techniques, Progress toward Goal/Update tx plan, Purpose of tx/functional activities Teaching Recipient: Patient Teaching Methods: Discussion Response to Teaching: Verbalize Understanding OT Short Term Goals Short Term Goals Time Frame: May 08, 2021 Shower/bathe self: 4 Upper body dressin Lower body dressin OT Prison Goals Prison Goals Time Frame: May 18, 2021 Eating (QC): 6 Oral Hygiene (QC): 6 Toileting Hygiene (QC): 6 Shower/Bathe Self (QC): 6 Upper Body Dressing (QC): 6 Lower Body Dressing (QC): 6 On/Off Footwear (QC): 6 Additional Goals: 1-Demonstrate ADL Tasks, 2-Verbalize Understanding, 3- ImproveStrength/Lyn 1=Demonstrate adherence to instructed precautions during ADL tasks. 2=Patient will verbalize/demonstrate understanding of assistive devices /modifications for ADL. 3=Patient will improve strength/tolerance for activity to enable patient to perform ADL's. OT Education/Plan Problem List/Assessment Assessment: Decreased Activ Tolerance, Decreased UE Strength, Impaired Funct Balance, Impaired I ADL's, Impaired Self-Care Skills Discharge Recommendations Plan/Recommendations: Continue POC Treatment Plan/Plan of Care Patient would benefit from OT for education, treatment and training to promote independence in ADL's, mobility, safety and/or upper extremity function for ADL's. Plan of Care: ADL Retraining, Functional Mobility, Group Exercise/Act as Ind, UE Funct Exercise/Act Treatment Duration: May 18, 2021 Frequency: At least 5 of 7 days/Wk (IRF) Estimated Hrs Per Day: 1.5 hours per day Agreement: Yes Rehab Potential: Good Time/GCodes Start Time: 10:15 (101-1115) Stop Time: 14:00 ([id number]) Total Time Billed (hr/min): 90 Billed Treatment Time 0928-3007 OT/PT cotreat, [id number] OT tx 1, FA 3 (45'), ADL (15') [id number] 1, FA 2 (30') REECE ROSA OT May 02, 2021 11:21
--- NOTE | 2021-05-02 15:35 | Physical Therapy Daily Note ---
PT Daily Note-Current Subjective Pt sitting in recliner upon arrival. Pt agrees to PT. Pain Location: No Pain Reported Mental Status Patient Orientation: Person, Place, Time, Situation Attachments: Oxygen (3L) Transfers SCALE: Activities may be completed with or without assistive devices. 5-Vycghpnnyn-vufespr completes the activity by him/herself with no assistance from a helper. 5-Set-up or Clean-up Assistance-helper sets up or cleans up; patient completes activity. [place] assists only prior to or following the activity. 4-Supervision or Touching Assistance-helper provides verbal cues and/or touching/steadying and/or contact guard assistance as patient completes activity. Assistance may be provided throughout the activity or intermittently. 3-Partial/Moderate Assistance-helper does LESS THAN HALF the effort. [place] lifts, holds or supports trunk or limbs, but provides less than half the effort. 2-Substantial/Maximal Assistance-helper does MORE THAN HALF the effort. [place] lifts or holds trunk or limbs and provides more than half the effort. 3-Niaaqfejr-tunjye does ALL the effort. Patient does none of the effort to complete the activity. Or, the assistance of 2 or more helpers is required for the patient to complete the activity. If activity was not attempted, code reason: 7-Patient Refused. 9-Not Applicable-not attempted and the patient did not perform the activity before the current illness, exacerbation or injury. 10-Not Attempted due to Environmental Limitations-(lack of equipment, weather restraints, etc.). 88-Not Attempted due to Medical Conditions or Safety Concerns. Sit to Stand (QC): 6 Weight Bearing Full Weight Bearing Full Weight Bearing Gait Training Does the Patient Walk?: Yes Distance: 150' x2 Walk 10 feet (QC): 6 Walk 50 ft with 2 Turns(QC): 6 Walk 150 ft (QC): 6 Gait Persons Needed: 0 Gait Assistive Device: Cane Small Base Quad Wheelchair Training Does the Pt Use a Wheelchair?: No Exercises NuStep Minutes: 10 NuStep Workload: 5 Treatments Pt declined need for BR. TF to standing and amb. in hallway. Pt uses NuStep for 10m at WL 5 until reporting fatigue and asked to discontinue today. Pt takes RB then amb in hallway and returns to room after getting laundry from dryer. Pt resting in recliner at end of tx with all needs met, call light in hand. Assessment Current Status: Fair Progress More fatigued this afternoon. Pt thinks morning tx wore her out. PT Short Term Goals Short Term Goals Time Frame: May 11, 2021 Roll Left & Right: 5 Sit to lyin Lying to sitting on side of be: 5 Sit to stand: 5 Chair/vqp-wq-faghn transfer: 5 Toilet transfer: 5 Car transfer: 5 Walk 10 feet: 5 Walk 50 feet with two turns: 5 Walk 150 feet: 5 Walking 10ft on uneven surface: 5 1 step (curb): 5 4 steps: 5 12 steps: 5 Picking up objects: 5 Does pt use a wc or scooter: No Wheel 50ft w/2 turns: 88 Wheel 150 feet: 88 Type: N/A PT Underground Drill Operator Goals Underground Drill Operator Goals PT Fpc Goals Time Frame: May 25, 2021 Roll Left & Right (QC): 6 Sit to Lying (QC): 6 Lying-Sitting on Side/Bed(QC): 6 Sit to Stand (QC): 6 Chair/Jxo-kc-Bfbcn Xfer(QC): 6 Toilet Transfer (QC): 6 Car Transfer (QC): 6 Does the Patient Walk: Yes Walk 10 feet (QC): 6 Walk 50ft with 2 Turns (QC): 6 Walk 150 ft (QC): 6 Walking 10ft on Uneven Surface: 6 1 Step (curb) (QC): 6 4 Steps (QC): 6 12 Steps (QC): 6 Picking up an Object (QC): 6 Does the Pt use WC or Scooter?: No Wheel 50 feet with 2 turns (QC: 88 Type: N/A Wheel 150 feet: 88 Type: N/A PT Plan Problem List Problem List: Activity Tolerance Treatment/Plan Treatment Plan: Continue Plan of Care Treatment Plan: Bed Mobility, Education, Functional Activity Lyn, Functional Strength, Group Therapy, Gait, Safety, Therapeutic Exercise, Transfers Treatment Duration: Jun 29, 2021 Frequency: At least 5 of 7 days/Wk (IRF) Estimated Hrs Per Day: 1.5 hours per day Patient and/or Family Agrees t: Yes Time/GCodes Time In: 1400 Time Out: 1430 Total Billed Treatment Time: 30 Total Billed Treatment 1, GT (15m) & EX (15m) VÍCTOR FAYE GEEK SQUAD MANAGER May 02, 2021 15:35
[2021-05-02] MEDS: RIVAROXABAN 20 MG TABLET (XARELTO) PO SCH (16:33)
[2021-05-02] MEDS: ONDANSETRON 4 MG (ZOFRAN) ORAL DISSOLVE TAB PO PRN (18:39)
[2021-05-02 19:54] VITALS: BP 141/67
[2021-05-02] MEDS: ALPRAZolam 0.25 MG (XANAX) TAB PO PRN (20:06)
[2021-05-02] MEDS: MELATONIN 3 MG TABLET PO PRN (20:06)
--- NOTE | 2021-05-03 05:54 | PM&R Progress Note ---
Subjective HPI/CC On Admission Date Seen by Provider: May 03, 2021 Time Seen by Provider: 05:45 Subjective/Events-last exam 05/03/2021: Patient doing pretty well Discharge on Thursday Oxygen maintained Legs are much improved with triamcinolone and nystatin 05/02/2021: Pt will go home on Thursday Nystatin and Triamcinalone cream has helped her legs No other concerns Oxygen maintained 05/01/2021: Pt swelling is a lot better Venous stasis dermatitis will be treated with Nystatin and Triamcinolone Will DC the AD ointment Overall doing pretty good and will be ready for DC on Thursday04/30/2021: Pt reports she is feeling weak Iron was given up on fourth floor and iron level is high at 191 Told me she was a previous alcoholic after her Edema is improved 04/29/2021: Pt doing pretty well Hgb 7.9 Redness from the venous stasis dermatitis Pain is an issue Maintain on oxygen 04/28/2021: Patient seems to be settling in well No falls Hemoglobin 7.9 Chronic pain issues discussed On 4 L of oxygen Chronic leg pain is the source of the chronic issues Smoking cessation discussed Check meds and labs Review of Systems General: Fatigue, Malaise Pulmonary: Dyspnea Musculoskeletal: leg pain Objective Exam Vital Signs Vital Signs Date Time Temp Pulse Resp B/P (MAP) Pulse Ox O2 Delivery O2 Flow Rate FiO2 05/03/21 20:16 36.5 75 18 138/72 (94) 94 Nasal Cannula 3.00 Capillary Refill : General Appearance: No Apparent Distress, WD/WN, Chronically ill, Obese HEENT: PERRL/EOMI, Normal ENT Inspection, Pharynx Normal Neck: Full Range of Motion, Normal Inspection, Non Tender, Supple, Carotid Bruit Respiratory: Chest Non Tender, Lungs Clear, No Accessory Muscle Use, No Respiratory Distress, Decreased Breath Sounds Cardiovascular: No Edema, No Gallop, No JVD, No Murmur, Normal Peripheral Pulses, Irregularly Irregular, Tachycardia Gastrointestinal: Normal Bowel Sounds, No Organomegaly, No Pulsatile Mass, Non Tender, Soft Back: Normal Inspection, No CVA Tenderness, No Vertebral Tenderness Extremity: Normal Capillary Refill, Normal Inspection, Normal Range of Motion, Non Tender, No Calf Tenderness, No Pedal Edema Neurologic/Psychiatric: Alert, Oriented x3, No Motor/Sensory Deficits, crusher operator II- XII Norm as Tested, Abnormal Gait, Depressed Affect, Motor Weakness (Generalized weakness all extremities) Skin: Normal Color, Warm/Dry, Rash (Chronic venous stasis dermatitis lower extremities) Lymphatic: No Adenopathy Results/Procedures Lab Patient resulted labs reviewed. FIM Transfers Therapy Code Descriptions/Definitions Functional [place] Measure: 0=Not Assessed/NA 4=Minimal Assistance 1=Total Assistance 5=Supervision or Setup 2=Maximal Assistance 6=Modified [place] 3=Moderate Assistance 7=Complete IndependenceSCALE: Activities may be completed with or without assistive devices. 6-Ripaubkyde-razsemx completes the activity by him/herself with no assistance from a helper. 5-Set-up or Clean-up Assistance-helper sets up or cleans up; patient completes activity. [place] assists only prior to or following the activity. 4-Supervision or Touching Assistance-helper provides verbal cues and/or touching/steadying and/or contact guard assistance as patient completes activity. Assistance may be provided throughout the activity or intermittently. 3-Partial/Moderate Assistance-helper does LESS THAN HALF the effort. [place] lifts, holds or supports trunk or limbs, but provides less than half the effort. 2-Substantial/Maximal Assistance-helper does MORE THAN HALF the effort. [place] lifts or holds trunk or limbs and provides more than half the effort. 7-Nsgliwrtp-cjsfur does ALL the effort. Patient does none of the effort to complete the activity. Or, the assistance of 2 or more helpers is required for the patient to complete the activity. If activity was not attempted, code reason: 7-Patient Refused. 9-Not Applicable-not attempted and the patient did not perform the activity before the current illness, exacerbation or injury. 10-Not Attempted due to Environmental Limitations-(lack of equipment, weather restraints, etc.). 88-Not Attempted due to Medical Conditions or Safety Concerns. Roll Left to Right (QC): 4 Sit to Lying (QC): 5 Sit to Stand (QC): 6 Chair/Xer-xz-Jgsmt Xfer(QC): 4 Car Transfer (QC): 88 Gait Training Does the Patient Walk?: Yes Distance: 150' x2 Walk 10 feet (QC): 6 Walk 50 ft with 2 Turns(QC): 6 Walk 150 ft (QC): 6 Walking 10ft/uneven surface-QC: 3 Gait Persons Needed: 0 Gait Assistive Device: Cane Small Base Quad Wheelchair Training Does the Pt Use a Wheelchair?: No Wheel 50 ft with 2 turns (QC): 88 Wheel 150 ft (QC): 88 Stair Training Stair Training: Handrails/: 2 handrails #of Steps: 8 1 Step (curb) (QC): 5 4 Steps (QC): 5 12 Steps (QC): 88 Stairs: Pattern: Step to Balance Picking up an Object (QC): 4 ADL-Treatment Eating (QC): 6 Oral Hygiene (QC): 6 (IND standing at sink) Shower/Bathe Self (QC): 6 (IND, able to wash/dry all parts) Upper Body Dressing (QC): 6 (IND with line puller shirt.) Lower Body Dressing (QC): 6 (IND with shorts) On/Off Footwear (QC): 6 (IND with gripper socks.) Toileting Hygiene (QC): 6 Toilet Transfer (QC): 6 Assessment/Plan Assessment and Plan Assess & Plan/Chief Complaint Assessment: Severe debility with multiple hospital stays Oxygen dependent COPD end-stage Smoker Atrial fibrillation Congestive heart failure Anemia Chronic kidney disease Chronic lymphedema bilateral lower extremities Venous stasis dermatitis Bipolar Anxiety Plan: Supportive care Oxygen supplementation 27/04 Monitor labs Monitor kidney function Aggressive therapy 04/28/2021: Maintain oxygen Pain control Monitor hemoglobin 04/29/2021: Oxygen to maintain Supportive care Monitor closely 04/30/2021: Supportive care Pain control Oxygen supplementation 05/01/2021: Supportive care Discharge on Thursday Change ointments for lower extremities 05/02/2021: Supportive care Oxygen maintain 05/03/2021: Nystatin triamcinolone cream to legs Maintain oxygen (1) Debility Status: Acute (2) Heart failure Status: Acute (3) Venous stasis dermatitis of both lower extremities Status: Acute (4) Lymphedema of both lower extremities Status: Chronic (5) Paroxysmal A-fib Status: Chronic (6) Very heavy cigarette smoker (40 or more per day) Status: Acute (7) HTN (hypertension) Status: Chronic (8) Pulmonary hypertension (9) Chronic renal insufficiency Status: Acute (10) COPD (chronic obstructive pulmonary disease) Status: Acute (11) Chronic anemia Status: Acute (12) Pedal edema Status: Acute (13) DVT (deep venous thrombosis) Status: Chronic TAL YANEZ DO May 03, 2021 05:54
[2021-05-03] MEDS: KCL 20 MEQ TAB (K-DUR) PO SCH (06:05)
[2021-05-03] MEDS: HYDROcodone/APAP 5 MG/325 MG (LORTAB) TAB PO PRN (06:08)
[2021-05-03] MEDS: FUROSEMIDE 40 MG (LASIX) TAB PO SCH (06:08)
[2021-05-03 08:00] VITALS: BP 137/73
[2021-05-03] MEDS: UMECLIDINIUM BROMIDE (INCRUSE ELLIPTA) 7'S IH SCH (08:07)
[2021-05-03] MEDS: meTOprolol TARTRATE 50 MG (LOPRESSOR) TAB PO SCH ×2 (09:18→20:35)
[2021-05-03] MEDS: ASPIRIN 81 MG CHEW (CHILDREN'S ASA) PO SCH (09:18)
[2021-05-03] MEDS: GABAPENTIN 600 MG (NEURONTIN) TAB PO SCH ×3 (09:18→20:34)
[2021-05-03] MEDS: FLUoxetine HCL 10 MG (PROzac) CAPSULE/TABLET PO SCH (09:18)
[2021-05-03] MEDS: LORATADINE (CLARITIN) 10 MG TAB PO SCH (09:18)
[2021-05-03] MEDS: dilTIAZem120 MG (CARDIZEM CD) CAP PO SCH (09:18)
[2021-05-03] MEDS: DOCUSATE SODIUM 100 MG (COLACE) CAP PO SCH ×2 (09:21→20:34)
[2021-05-03] MEDS: TRIAMCINOLONE 0.1% CR (KENALOG) 80 GM TUBE TP SCH ×2 (09:29→20:39)
[2021-05-03] MEDS: NYSTATIN CREAM (MYCOSTATIN) 30 GM TUBE TP SCH ×2 (09:29→20:39)
--- NOTE | 2021-05-03 09:32 | Physical Therapy Daily Note ---
PT Daily Note-Current Subjective Pt agreeable to treatment. Pt rates pain in (B) LE 8.5/10. Pt reports that is an improvement. Pt requests BR privileges upon arrival. Mental Status Patient Orientation: Person, Place, Situation Attachments: Oxygen Portable O2 3L/min. O2 in situ post therapy session. Transfers SCALE: Activities may be completed with or without assistive devices. 0-Amtlssitvf-kmwefuq completes the activity by him/herself with no assistance from a helper. 5-Set-up or Clean-up Assistance-helper sets up or cleans up; patient completes activity. [place] assists only prior to or following the activity. 4-Supervision or Touching Assistance-helper provides verbal cues and/or touching/steadying and/or contact guard assistance as patient completes ac tivity. Assistance may be provided throughout the activity or intermittently. 3-Partial/Moderate Assistance-helper does LESS THAN HALF the effort. [place] lifts, holds or supports trunk or limbs, but provides less than half the effort. 2-Substantial/Maximal Assistance-helper does MORE THAN HALF the effort. [place] lifts or holds trunk or limbs and provides more than half the effort. 1-Utwpsxhsi-iuxzrf does ALL the effort. Patient does none of the effort to complete the activity. Or, the assistance of 2 or more helpers is required for the patient to complete the activity. If activity was not attempted, code reason: 7-Patient Refused. 9-Not Applicable-not attempted and the patient did not perform the activity before the current illness, exacerbation or injury. 10-Not Attempted due to Environmental Limitations-(lack of equipment, weather restraints, etc.). 88-Not Attempted due to Medical Conditions or Safety Concerns. Pt mod (I) with transfers and toileting. Weight Bearing Full Weight Bearing Full Weight Bearing Gait Training Gait Assistive Device: FWW Pt amb with FWW and port O2 3L/min 2 x 150ft Exercises Standin way Ex=Flex, Abd, Ext Standing Reps: 15 NuStep Minutes: 15 NuStep Workload: 3 Treatments Pt set up for dressing, toileted, brushed teeth and combed hair. Pt managed O2 line throughout (I) and safely. Pt O2 monitored throughout treatment remained >93%. Assessment Current Status: Good Progress Good tolerance to treatment. Pt mod (I) with mobility. Pt requires rest breaks on occ due to fatigue. Pt back to recliner with call light, O2 per nasal canula and all needs met. PT Short Term Goals Short Term Goals Time Frame: May 11, 2021 Roll Left & Right: 5 Sit to lyin Lying to sitting on side of be: 5 Sit to stand: 5 Chair/iwu-cy-xpwom transfer: 5 Toilet transfer: 5 Car transfer: 5 Walk 10 feet: 5 Walk 50 feet with two turns: 5 Walk 150 feet: 5 Walking 10ft on uneven surface: 5 1 step (curb): 5 4 steps: 5 12 steps: 5 Picking up objects: 5 Does pt use a wc or scooter: No Wheel 50ft w/2 turns: 88 Wheel 150 feet: 88 Type: N/A PT Spreader Operator Automatic Goals Long-Term Goals PT Long-Term Goals Time Frame: May 25, 2021 Roll Left & Right (QC): 6 Sit to Lying (QC): 6 Lying-Sitting on Side/Bed(QC): 6 Sit to Stand (QC): 6 Chair/Dyu-aa-Mepxv Xfer(QC): 6 Toilet Transfer (QC): 6 Car Transfer (QC): 6 Does the Patient Walk: Yes Walk 10 feet (QC): 6 Walk 50ft with 2 Turns (QC): 6 Walk 150 ft (QC): 6 Walking 10ft on Uneven Surface: 6 1 Step (curb) (QC): 6 4 Steps (QC): 6 12 Steps (QC): 6 Picking up an Object (QC): 6 Does the Pt use WC or Scooter?: No Wheel 50 feet with 2 turns (QC: 88 Type: N/A Wheel 150 feet: 88 Type: N/A PT Plan Treatment/Plan Treatment Plan: Continue Plan of Care Treatment Plan: Bed Mobility, Education, Functional Activity Lyn, Functional Strength, Group Therapy, Gait, Safety, Therapeutic Exercise, Transfers Treatment Duration: Jun 29, 2021 Frequency: At least 5 of 7 days/Wk (IRF) Estimated Hrs Per Day: 1.5 hours per day Patient and/or Family Agrees t: Yes Time/GCodes Time In: 815 Time Out: 900 Total Billed Treatment Time: 45 Total Billed Treatment 1, ther ex 15', gait 15', FA 15' NICHOLAS PAYTON [facility] May 03, 2021 09:32
--- NOTE | 2021-05-03 09:44 | Occupational Ther Daily Note ---
OT Current Status-Daily Note Subjective Pt seated in recliner, states 9/10 pain in her back. Nurse provided pain med Mental Status/Objective Patient Orientation: Normal For Age Attachments: Oxygen (3L) ADL-Treatment Therapy Code Descriptions/Definitions Functional [place] Measure: 0=Not Assessed/NA 4=Minimal Assistance 1=Total Assistance 5=Supervision or Setup 2=Maximal Assistance 6=Modified [place] 3=Moderate Assistance 7=Complete IndependenceSCALE: Activities may be completed with or without assistive devices. 3-Riygrqiwkc-cqiundp completes the activity by him/herself with no assistance from a helper. 5-Set-up or Clean-up Assistance-helper sets up or cleans up; patient completes activity. [place] assists only prior to or following the activity. 4-Supervision or Touching Assistance-helper provides verbal cues and/or touching/steadying and/or contact guard assistance as patient completes activity. Assistance may be provided throughout the activity or intermittently. 3-Partial/Moderate Assistance-helper does LESS THAN HALF the effort. [place] lifts, holds or supports trunk or limbs, but provides less than half the effort. 2-Substantial/Maximal Assistance-helper does MORE THAN HALF the effort. [place] lifts or holds trunk or limbs and provides more than half the effort. 5-Asolbeihh-qeurlx does ALL the effort. Patient does none of the effort to complete the activity. Or, the assistance of 2 or more helpers is required for the patient to complete the activity. If activity was not attempted, code reason: 7-Patient Refused. 9-Not Applicable-not attempted and the patient did not perform the activity before the current illness, exacerbation or injury. 10-Not Attempted due to Environmental Limitations-(lack of equipment, weather restraints, etc.). 88-Not Attempted due to Medical Conditions or Safety Concerns. Other Treatment Pt seated in recliner, states pain in her lower back. OT educated pt on adjusti ng recliner in order to decrease pressure/pain in her lower back. After positioning, pt states her back felt a little better. Pts nurse present to provide pain medicine. Pt used cane to perform functional mobility to therapy gym, SBA. OT tx focused on increasing RUE fine motor coordination, BUE strength and activity tolerance. Pt completed "Perfection" game, using R hand to manipul ate shapes within her hand and placing them into the correct hole. Pt then strung beads onto string, holding string with L hand and placing beads onto string with R hand. Pt had most difficulty getting 1 bead at a time from container. Pt able to string x23 beads total with increased time. Pt removed beads from moderate resistance theraputty. OT provided pt with moderate resistance pst specialist sponge, and light resistance theraputty (pt has moderate resistance at home and stated very difficulty). Pt educated on written HEP for theraputty hand and finger exercises, verbalized and demonstrated understanding, completing x5 reps each. OT provided pt with written HEP for wrist and elbow, for wrist flexion, wrist extension, ulnar/radial deviation, pronation/supination, elbow flexion, and overhead elbow extension, pt verbalized and demo'd understanding, performing x5 reps each. Pt used cane to return to her room, transferring to recliner. Post tx, pt seated in recliner, call light in reach and all needs met. Education OT Patient Education: Correct positioning, Energy conservation, Exercise program, Home exercise program, Modified ADL techniques, Progress toward Goal/Update tx plan, Purpose of tx/functional activities Teaching Recipient: Patient Teaching Methods: Demonstration, Handout, Discussion Response to Teaching: Verbalize Understanding, Return Demonstration OT Short Term Goals Short Term Goals Time Frame: May 08, 2021 Shower/bathe self: 4 Upper body dressin Lower body dressin OT Care Home Goals Care Home Goals Time Frame: May 18, 2021 Eating (QC): 6 Oral Hygiene (QC): 6 Toileting Hygiene (QC): 6 Shower/Bathe Self (QC): 6 Upper Body Dressing (QC): 6 Lower Body Dressing (QC): 6 On/Off Footwear (QC): 6 Additional Goals: 1-Demonstrate ADL Tasks, 2-Verbalize Understanding, 3- ImproveStrength/Lyn 1=Demonstrate adherence to instructed precautions during ADL tasks. 2=Patient will verbalize/demonstrate understanding of assistive devices/modifications for ADL. 3=Patient will improve strength/tolerance for activity to enable patient to perform ADL's. OT Education/Plan Problem List/Assessment Assessment: Decreased Activ Tolerance, Decreased UE Strength, Impaired Funct Balance, Impaired I ADL's, Impaired Self-Care Skills, Restricted Funct UE ROM Discharge Recommendations Plan/Recommendations: Continue POC Treatment Plan/Plan of Care Patient would benefit from OT for education, treatment and training to promote independence in ADL's, mobility, safety and/or upper extremity function for ADL's. Plan of Care: ADL Retraining, Functional Mobility, Group Exercise/Act as Ind, UE Funct Exercise/Act Treatment Duration: May 18, 2021 Frequency: At least 5 of 7 days/Wk (IRF) Estimated Hrs Per Day: 1.5 hours per day Agreement: Yes Rehab Potential: Good Time/GCodes Start Time: 09:15 Stop Time: 10:45 Total Time Billed (hr/min): 90 Billed Treatment Time 1, FA 5 (75'), EX (15') REECE ROSA OT May 03, 2021 09:44
[2021-05-03] MEDS: SENNA W/DOCUSATE (SENOKOT S) TABLET PO SCH ×2 (11:37→20:35)
[2021-05-03] MEDS: polyethylene glycoL POWDER 17 GM (MIRALAX) PACK PO SCH ×2 (11:37→20:35)
--- NOTE | 2021-05-03 12:20 | Physical Therapy Daily Note ---
PT Daily Note-Current Subjective Pt reports she took pain medication "which helped my back pain but not my leg pain". Pt agreeable and motivated to learn all the therapeutic ex she can do at home. Pt issued red theraband per pt request. Mental Status Patient Orientation: Person, Place, Situation Transfers SCALE: Activities may be completed with or without assistive devices. 3-Ptiocxtjgo-shuagyo completes the activity by him/herself with no assistance from a helper. 5-Set-up or Clean-up Assistance-helper sets up or cleans up; patient completes activity. [place] assists only prior to or following the activity. 4-Supervision or Touching Assistance-helper provides verbal cues and/or touching/steadying and/or contact guard assistance as patient completes activity. Assistance may be provided throughout the activity or intermittently. 3-Partial/Moderate Assistance-helper does LESS THAN HALF the effort. [place] lifts, holds or supports trunk or limbs, but provides less than half the effort. 2-Substantial/Maximal Assistance-helper does MORE THAN HALF the effort. [place] lifts or holds trunk or limbs and provides more than half the effort. 0-Sbqnkxepf-tahezv does ALL the effort. Patient does none of the effort to complete the activity. Or, the assistance of 2 or more helpers is required for the patient to complete the activity. If activity was not attempted, code reason: 7-Patient Refused. 9-Not Applicable-not attempted and the patient did not perform the activity before the current illness, exacerbation or injury. 10-Not Attempted due to Environmental Limitations-(lack of equipment, weather restraints, etc.). 88-Not Attempted due to Medical Conditions or Safety Concerns. Weight Bearing Full Weight Bearing Full Weight Bearing Exercises Seated Therapy Exercises: Ankle pumps, Long arc quads, Hip flexion, Hip abd/add Seated Reps: 20 Treatments Performed RTB resisted hip abd x 20, tricep press, bicep curl and ER of (B) shoulders with RTB x 20 each. Pt practiced sit-stand 3 x 10 reps with rest breaks between. Pt on O2 per nasal canula throughout treatment. Assessment Current Status: Good Progress Pt tyra very well with rest breaks as needed. Pt in recliner with call light and all needs met. PT Short Term Goals Short Term Goals Time Frame: May 11, 2021 Roll Left & Right: 5 Sit to lyin Lying to sitting on side of be: 5 Sit to stand: 5 Chair/eer-jv-xhcyj transfer: 5 Toilet transfer: 5 Car transfer: 5 Walk 10 feet: 5 Walk 50 feet with two turns: 5 Walk 150 feet: 5 Walking 10ft on uneven surface: 5 1 step (curb): 5 4 steps: 5 12 steps: 5 Picking up objects: 5 Does pt use a wc or scooter: No Wheel 50ft w/2 turns: 88 Wheel 150 feet: 88 Type: N/A PT Detention Goals Finishing Room Supervisor Goals PT Finishing Room Supervisor Goals Time Frame: May 25, 2021 Roll Left & Right (QC): 6 Sit to Lying (QC): 6 Lying-Sitting on Side/Bed(QC): 6 Sit to Stand (QC): 6 Chair/Bqv-gh-Vmrlg Xfer(QC): 6 Toilet Transfer (QC): 6 Car Transfer (QC): 6 Does the Patient Walk: Yes Walk 10 feet (QC): 6 Walk 50ft with 2 Turns (QC): 6 Walk 150 ft (QC): 6 Walking 10ft on Uneven Surface: 6 1 Step (curb) (QC): 6 4 Steps (QC): 6 12 Steps (QC): 6 Picking up an Object (QC): 6 Does the Pt use WC or Scooter?: No Wheel 50 feet with 2 turns (QC: 88 Type: N/A Wheel 150 feet: 88 Type: N/A PT Plan Treatment/Plan Treatment Plan: Continue Plan of Care Treatment Plan: Bed Mobility, Education, Functional Activity Lyn, Functional Strength, Group Therapy, Gait, Safety, Therapeutic Exercise, Transfers Treatment Duration: Jun 29, 2021 Frequency: At least 5 of 7 days/Wk (IRF) Estimated Hrs Per Day: 1.5 hours per day Patient and/or Family Agrees t: Yes Time/GCodes Time In: 1125 Time Out: 1200 Total Billed Treatment Time: 35 Total Billed Treatment 1, ther ex 35' NICHOLAS PAYTON CPTA May 03, 2021 12:20
--- NOTE | 2021-05-03 14:05 | Physical Therapy Daily Note ---
PT Daily Note-Current Subjective Pt up in chair. Ready for PT. Pt has no complaints. Mental Status Patient Orientation: Person, Place, Situation Transfers SCALE: Activities may be completed with or without assistive devices. 7-Jsetklvxnu-zpwadfk completes the activity by him/herself with no assistance from a helper. 5-Set-up or Clean-up Assistance-helper sets up or cleans up; patient completes activity. [place] assists only prior to or following the activity. 4-Supervision or Touching Assistance-helper provides verbal cues and/or touching/steadying and/or contact guard assistance as patient completes activity. Assistance may be provided throughout the activity or intermittently. 3-Partial/Moderate Assistance-helper does LESS THAN HALF the effort. [place] lifts, holds or supports trunk or limbs, but provides less than half the effort. 2-Substantial/Maximal Assistance-helper does MORE THAN HALF the effort. [place] lifts or holds trunk or limbs and provides more than half the effort. 2-Tlvkflfhx-tmzzbl does ALL the effort. Patient does none of the effort to complete the activity. Or, the assistance of 2 or more helpers is required for the patient to complete the activity. If activity was not attempted, code reason: 7-Patient Refused. 9-Not Applicable-not attempted and the patient did not perform the activity before the current illness, exacerbation or injury. 10-Not Attempted due to Environmental Limitations-(lack of equipment, weather restraints, etc.). 88-Not Attempted due to Medical Conditions or Safety Concerns. Pt transfers from chair mod (I). Pt toilets self mod (I) Weight Bearing Full Weight Bearing Full Weight Bearing Gait Training Gait Assistive Device: Cane Single Point Pt amb with SPC (hurry cane) with f/u of O2 at 3L/min x 480ft at slow but steady speed. Pt back to recliner with call light and all needs met. Assessment Current Status: Good Progress Pt resting post therapy in recliner with O2 in situ. Pt call light in reach and needs met. Pt did well with balance throughout BR use and gait training in halls. PT Short Term Goals Short Term Goals Time Frame: May 11, 2021 Roll Left & Right: 5 Sit to lyin Lying to sitting on side of be: 5 Sit to stand: 5 Chair/rjb-ql-gpvjl transfer: 5 Toilet transfer: 5 Car transfer: 5 Walk 10 feet: 5 Walk 50 feet with two turns: 5 Walk 150 feet: 5 Walking 10ft on uneven surface: 5 1 step (curb): 5 4 steps: 5 12 steps: 5 Picking up objects: 5 Does pt use a wc or scooter: No Wheel 50ft w/2 turns: 88 Wheel 150 feet: 88 Type: N/A PT Punch Finisher Goals Punch Finisher Goals PT Detention Goals Time Frame: May 25, 2021 Roll Left & Right (QC): 6 Sit to Lying (QC): 6 Lying-Sitting on Side/Bed(QC): 6 Sit to Stand (QC): 6 Chair/Ykc-mb-Cpsiv Xfer(QC): 6 Toilet Transfer (QC): 6 Car Transfer (QC): 6 Does the Patient Walk: Yes Walk 10 feet (QC): 6 Walk 50ft with 2 Turns (QC): 6 Walk 150 ft (QC): 6 Walking 10ft on Uneven Surface: 6 1 Step (curb) (QC): 6 4 Steps (QC): 6 12 Steps (QC): 6 Picking up an Object (QC): 6 Does the Pt use WC or Scooter?: No Wheel 50 feet with 2 turns (QC: 88 Type: N/A Wheel 150 feet: 88 Type: N/A PT Plan Treatment/Plan Treatment Plan: Continue Plan of Care Treatment Plan: Bed Mobility, Education, Functional Activity Lyn, Functional Strength, Group Therapy, Gait, Safety, Therapeutic Exercise, Transfers Treatment Duration: Jun 29, 2021 Frequency: At least 5 of 7 days/Wk (IRF) Estimated Hrs Per Day: 1.5 hours per day Patient and/or Family Agrees t: Yes Time/GCodes Time In: 1325 Time Out: 1335 Total Billed Treatment Time: 10 Total Billed Treatment 1, gait 10min NICHOLAS PAYTON CPTA May 03, 2021 14:05
[2021-05-03] MEDS: RIVAROXABAN 20 MG TABLET (XARELTO) PO SCH (17:03)
[2021-05-03] MEDS: ALPRAZolam 0.25 MG (XANAX) TAB PO PRN (17:21)
[2021-05-03 20:16] VITALS: BP 138/72
[2021-05-03] MEDS: MELATONIN 3 MG TABLET PO PRN (20:34)
[2021-05-03] MEDS: RT--FLUTICASONE/SALMETEROL 232-14 (AIRDUO RespiCLICK) IH SCH (21:35)
[2021-05-04] MEDS: HYDROcodone/APAP 5 MG/325 MG (LORTAB) TAB PO PRN (03:44)
[2021-05-04] MEDS: ALPRAZolam 0.25 MG (XANAX) TAB PO PRN ×2 (03:44→18:41)
--- NOTE | 2021-05-04 05:59 | PM&R Progress Note ---
Subjective HPI/CC On Admission Date Seen by Provider: May 04, 2021 Time Seen by Provider: 06:00 Subjective/Events-last exam 05/04/2021: No major issues Sleeping with oxygen Legs look much better with nystatin and triamcinolone cream Monitoring closely Discharge Thursday05/03/2021: Patient doing pretty well Discharge on Thursday Oxygen maintained Legs are much improved with triamcinolone and nystatin 05/02/2021: Pt will go home on Thursday Nystatin and Triamcinalone cream has helped her legs No other concerns Oxygen maintained 05/01/2021: Pt swelling is a lot better Venous stasis dermatitis will be treated with Nystatin and Triamcinolone Will DC the AD ointment Overall doing pretty good and will be ready for DC on Thursday04/30/2021: Pt reports she is feeling weak Iron was given up on fourth floor and iron level is high at 191 Told me she was a previous alcoholic after her Edema is improved 04/29/2021: Pt doing pretty well Hgb 7.9 Redness from the venous stasis dermatitis Pain is an issue Maintain on oxygen 04/28/2021: Patient seems to be settling in well No falls Hemoglobin 7.9 Chronic pain issues discussed On 4 L of oxygen Chronic leg pain is the source of the chronic issues Smoking cessation discussed Check meds and labs Review of Systems General: Fatigue, Malaise Objective Exam Vital Signs Vital Signs Date Time Temp Pulse Resp B/P (MAP) Pulse Ox O2 Delivery O2 Flow Rate FiO2 05/04/21 09:00 Nasal Cannula 3.00 05/04/21 08:33 36.2 71 20 138/81 (100) 92 Capillary Refill : General Appearance: No Apparent Distress, WD/WN, Chronically ill, Obese HEENT: PERRL/EOMI, Normal ENT Inspection, Pharynx Normal Neck: Full Range of Motion, Normal Inspection, Non Tender, Supple, Carotid Bruit Respiratory: Chest Non Tender, Lungs Clear, No Accessory Muscle Use, No Respiratory Distress, Decreased Breath Sounds Cardiovascular: No Edema, No Gallop, No JVD, No Murmur, Normal Peripheral Pulses, Irregularly Irregular, Tachycardia Gastrointestinal: Normal Bowel Sounds, No Organomegaly, No Pulsatile Mass, Non Tender, Soft Back: Normal Inspection, No CVA Tenderness, No Vertebral Tenderness Extremity: Normal Capillary Refill, Normal Inspection, Normal Range of Motion, Non Tender, No Calf Tenderness, No Pedal Edema Neurologic/Psychiatric: Alert, Oriented x3, No Motor/Sensory Deficits, cage maker II- XII Norm as Tested, Abnormal Gait, Depressed Affect, Motor Weakness (Generalized weakness all extremities) Skin: Normal Color, Warm/Dry, Rash (Chronic venous stasis dermatitis lower extremities) Lymphatic: No Adenopathy Results/Procedures Lab Patient resulted labs reviewed. [facility]IM Transfers Therapy Code Descriptions/Definitions Functional [place] Measure: 0=Not Assessed/NA 4=Minimal Assistance 1=Total Assistance 5=Supervision or Setup 2=Maximal Assistance 6=Modified [place] 3=Moderate Assistance 7=Complete IndependenceSCALE: Activities may be completed with or without assistive devices. 6-Ayngrepvjx-kqrkfaw completes the activity by him/herself with no assistance from a helper. 5-Set-up or Clean-up Assistance-helper sets up or cleans up; patient completes activity. [place] assists only prior to or following the activity. 4-Supervision or Touching Assistance-helper provides verbal cues and/or touching /steadying and/or contact guard assistance as patient completes activity. Assistance may be provided throughout the activity or intermittently. 3-Partial/Moderate Assistance-helper does LESS THAN HALF the effort. [place] lifts, holds or supports trunk or limbs, but provides less than half the effort. 2-Substantial/Maximal Assistance-helper does MORE THAN HALF the effort. [place] lifts or holds trunk or limbs and provides more than half the effort. 9-Qvcjwivmr-vpeoib does ALL the effort. Patient does none of the effort to complete the activity. Or, the assistance of 2 or more helpers is required for the patient to complete the activity. If activity was not attempted, code reason: 7-Patient Refused. 9-Not Applicable-not attempted and the patient did not perform the activity before the current illness, exacerbation or injury. 10-Not Attempted due to Environmental Limitations-(lack of equipment, weather restraints, etc.). 88-Not Attempted due to Medical Conditions or Safety Concerns. Roll Left to Right (QC): 4 Sit to Lying (QC): 5 Sit to Stand (QC): 6 Chair/Zks-tm-Ajwwi Xfer(QC): 4 Car Transfer (QC): 88 Gait Training Does the Patient Walk?: Yes Distance: 150' x2 Walk 10 feet (QC): 6 Walk 50 ft with 2 Turns(QC): 6 Walk 150 ft (QC): 6 Walking 10ft/uneven surface-QC: 3 Gait Persons Needed: 0 Gait Assistive Device: Cane Single Point Wheelchair Training Does the Pt Use a Wheelchair?: No Wheel 50 ft with 2 turns (QC): 88 Wheel 150 ft (QC): 88 Stair Training Stair Training: Handrails/: 2 handrails #of Steps: 8 1 Step (curb) (QC): 5 4 Steps (QC): 5 12 Steps (QC): 88 Stairs: Pattern: Step to Balance Picking up an Object (QC): 4 ADL-Treatment Eating (QC): 6 Oral Hygiene (QC): 6 (IND standing at sink) Shower/Bathe Self (QC): 6 (IND, able to wash/dry all parts) Upper Body Dressing (QC): 6 (IND with jawbone puller shirt.) Lower Body Dressing (QC): 6 (IND with shorts) On/Off Footwear (QC): 6 (IND with gripper socks.) Toileting Hygiene (QC): 6 Toilet Transfer (QC): 6 Assessment/Plan Assessment and Plan Assess & Plan/Chief Complaint Assessment: Severe debility with multiple hospital stays Oxygen dependent COPD end-stage Smoker Atrial fibrillation Congestive heart failure Anemia Chronic kidney disease Chronic lymphedema bilateral lower extremities Venous stasis dermatitis Bipolar Anxiety Plan: Supportive care Oxygen supplementation 27/04 Monitor labs Monitor kidney function Aggressive therapy 04/28/2021: Maintain oxygen Pain control Monitor hemoglobin 04/29/2021: Oxygen to maintain Supportive care Monitor closely 04/30/2021: Supportive care Pain control Oxygen supplementation 05/01/2021: Supportive care Discharge on Thursday Change ointments for lower extremities 05/02/2021: Supportive care Oxygen maintain 05/03/2021: Nystatin triamcinolone cream to legs Maintain oxygen 05/04/2021: Much improved lower extremities Oxygen dependent 27/04 (1) Debility Status: Acute (2) Heart failure Status: Acute (3) Venous stasis dermatitis of both lower extremities Status: Acute (4) Lymphedema of both lower extremities Status: Chronic (5) Paroxysmal A-fib Status: Chronic (6) Very heavy cigarette smoker (40 or more per day) Status: Acute (7) HTN (hypertension) Status: Chronic (8) Pulmonary hypertension (9) Chronic renal insufficiency Status: Acute (10) COPD (chronic obstructive pulmonary disease) Status: Acute (11) Chronic anemia Status: Acute (12) Pedal edema Status: Acute (13) DVT (deep venous thrombosis) Status: Chronic TAL YANEZ DO May 04, 2021 05:58
[2021-05-04] MEDS: KCL 20 MEQ TAB (K-DUR) PO SCH (06:12)
[2021-05-04] MEDS: FUROSEMIDE 40 MG (LASIX) TAB PO SCH (06:12)
[2021-05-04] MEDS: UMECLIDINIUM BROMIDE (INCRUSE ELLIPTA) 7'S IH SCH (07:03)
[2021-05-04] MEDS: RT--FLUTICASONE/SALMETEROL 232-14 (AIRDUO RespiCLICK) IH SCH ×2 (07:08→19:45)
[2021-05-04 08:33] VITALS: BP 138/81
[2021-05-04] MEDS: meTOprolol TARTRATE 50 MG (LOPRESSOR) TAB PO SCH ×2 (08:35→21:13)
[2021-05-04] MEDS: GABAPENTIN 600 MG (NEURONTIN) TAB PO SCH ×3 (08:35→21:13)
[2021-05-04] MEDS: ASPIRIN 81 MG CHEW (CHILDREN'S ASA) PO SCH (08:35)
[2021-05-04] MEDS: FLUoxetine HCL 10 MG (PROzac) CAPSULE/TABLET PO SCH (08:35)
[2021-05-04] MEDS: LORATADINE (CLARITIN) 10 MG TAB PO SCH (08:35)
[2021-05-04] MEDS: NYSTATIN CREAM (MYCOSTATIN) 30 GM TUBE TP SCH ×2 (08:36→21:14)
[2021-05-04] MEDS: dilTIAZem120 MG (CARDIZEM CD) CAP PO SCH (08:36)
[2021-05-04] MEDS: TRIAMCINOLONE 0.1% CR (KENALOG) 80 GM TUBE TP SCH ×2 (08:36→21:14)
[2021-05-04] MEDS: SENNA W/DOCUSATE (SENOKOT S) TABLET PO SCH ×2 (09:00→21:00)
[2021-05-04] MEDS: polyethylene glycoL POWDER 17 GM (MIRALAX) PACK PO SCH ×2 (09:00→21:00)
[2021-05-04] MEDS: DOCUSATE SODIUM 100 MG (COLACE) CAP PO SCH ×2 (09:00→21:00)
--- NOTE | 2021-05-04 09:47 | Physical Therapy Daily Note ---
PT Daily Note-Current Subjective Pt. in bed, agrees to therapy. States her legs are doing better. Mental Status Patient Orientation: Person, Place, Time, Situation Attachments: Oxygen (3L) Transfers SCALE: Activities may be completed with or without assistive devices. 4-Kbtacfpclo-jrtomnc completes the activity by him/herself with no assistance from a helper. 5-Set-up or Clean-up Assistance-helper sets up or cleans up; patient completes activity. [place] assists only prior to or following the activity. 4-Supervision or Touching Assistance-helper provides verbal cues and/or touching/steadying and/or contact guard assistance as patient completes activity. Assistance may be provided throughout the activity or intermittently. 3-Partial/Moderate Assistance-helper does LESS THAN HALF the effort. [place] lifts, holds or supports trunk or limbs, but provides less than half the effort. 2-Substantial/Maximal Assistance-helper does MORE THAN HALF the effort. [place] lifts or holds trunk or limbs and provides more than half the effort. 1-Oauftzbhs-jsqaru does ALL the effort. Patient does none of the effort to complete the activity. Or, the assistance of 2 or more helpers is required for the patient to complete the activity. If activity was not attempted, code reason: 7-Patient Refused. 9-Not Applicable-not attempted and the patient did not perform the activity before the current illness, exacerbation or injury. 10-Not Attempted due to Environmental Limitations-(lack of equipment, weather restraints, etc.). 88-Not Attempted due to Medical Conditions or Safety Concerns. Sit to Stand (QC): 6 Weight Bearing Full Weight Bearing Full Weight Bearing Gait Training Does the Patient Walk?: Yes Distance: 500 ft Walk 150 ft (QC): 6 Gait Assistive Device: Cane Single Point Treatments gait training Assessment Current Status: Good Progress Pt. is steady throughout ambulation and with good gait speed. She requires 1 brief standing rest period but otherwise no noted SOB. Pt. returned to room post session with all needs met. PT Short Term Goals Short Term Goals Time Frame: May 11, 2021 Roll Left & Right: 5 Sit to lyin Lying to sitting on side of be: 5 Sit to stand: 5 Chair/mwq-gz-seiul transfer: 5 Toilet transfer: 5 Car transfer: 5 Walk 10 feet: 5 Walk 50 feet with two turns: 5 Walk 150 feet: 5 Walking 10ft on uneven surface: 5 1 step (curb): 5 4 steps: 5 12 steps: 5 Picking up objects: 5 Does pt use a wc or scooter: No Wheel 50ft w/2 turns: 88 Wheel 150 feet: 88 Type: N/A PT Match Up Worker Goals Match Up Worker Goals PT Halfway Goals Time Frame: May 25, 2021 Roll Left & Right (QC): 6 Sit to Lying (QC): 6 Lying-Sitting on Side/Bed(QC): 6 Sit to Stand (QC): 6 Chair/Hln-oy-Nihom Xfer(QC): 6 Toilet Transfer (QC): 6 Car Transfer (QC): 6 Does the Patient Walk: Yes Walk 10 feet (QC): 6 Walk 50ft with 2 Turns (QC): 6 Walk 150 ft (QC): 6 Walking 10ft on Uneven Surface: 6 1 Step (curb) (QC): 6 4 Steps (QC): 6 12 Steps (QC): 6 Picking up an Object (QC): 6 Does the Pt use WC or Scooter?: No Wheel 50 feet with 2 turns (QC: 88 Type: N/A Wheel 150 feet: 88 Type: N/A PT Plan Treatment/Plan Treatment Plan: Continue Plan of Care Treatment Plan: Bed Mobility, Education, Functional Activity Lyn, Functional Strength, Group Therapy, Gait, Safety, Therapeutic Exercise, Transfers Treatment Duration: Jun 29, 2021 Frequency: At least 5 of 7 days/Wk (IRF) Estimated Hrs Per Day: 1.5 hours per day Patient and/or Family Agrees t: Yes Time/GCodes Time In: 921 Time Out: 939 Total Billed Treatment Time: 18 Total Billed Treatment 1, GT 18' JOSHUA PICKARD PT May 04, 2021 09:47
[2021-05-04] MEDS: RIVAROXABAN 20 MG TABLET (XARELTO) PO SCH (17:17)
[2021-05-04 20:00] VITALS: BP 153/71
[2021-05-04] MEDS: MELATONIN 3 MG TABLET PO PRN (21:13)
--- NOTE | 2021-05-05 06:09 | PM&R Progress Note ---
Subjective HPI/CC On Admission Date Seen by Provider: May 05, 2021 Time Seen by Provider: 06:10 Subjective/Events-last exam 05/05/2021: Legs are much better Ready for discharge tomorrow Oxygen maintain 27/04 Has done very well in rehab 05/04/2021: No major issues Sleeping with oxygen Legs look much better with nystatin and triamcinolone cream Monitoring closely Discharge Thursday05/03/2021: Patient doing pretty well Discharge on Thursday Oxygen maintained Legs are much improved with triamcinolone and nystatin 05/02/2021: Pt will go home on Thursday Nystatin and Triamcinalone cream has helped her legs No other concerns Oxygen maintained 05/01/2021: Pt swelling is a lot better Venous stasis dermatitis will be treated with Nystatin and Triamcinolone Will DC the AD ointment Overall doing pretty good and will be ready for DC on Thursday04/30/2021: Pt reports she is feeling weak Iron was given up on fourth floor and iron level is high at 191 Told me she was a previous alcoholic after her Edema is improved 04/29/2021: Pt doing pretty well Hgb 7.9 Redness from the venous stasis dermatitis Pain is an issue Maintain on oxygen 04/28/2021: Patient seems to be settling in well No falls Hemoglobin 7.9 Chronic pain issues discussed On 4 L of oxygen Chronic leg pain is the source of the chronic issues Smoking cessation discussed Check meds and labs Review of Systems General: Fatigue Musculoskeletal: leg pain Objective Exam Vital Signs Vital Signs Date Time Temp Pulse Resp B/P (MAP) Pulse Ox O2 Delivery O2 Flow Rate FiO2 05/05/21 21:09 93 Nasal Cannula 3.00 05/05/21 20:00 37.5 77 16 157/72 (100) Capillary Refill : General Appearance: No Apparent Distress, WD/WN, Chronically ill, Obese HEENT: PERRL/EOMI, Normal ENT Inspection, Pharynx Normal Neck: Full Range of Motion, Normal Inspection, Non Tender, Supple, Carotid Bruit Respiratory: Chest Non Tender, Lungs Clear, No Accessory Muscle Use, No Respiratory Distress, Decreased Breath Sounds Cardiovascular: No Edema, No Gallop, No JVD, No Murmur, Normal Peripheral Pulses, Irregularly Irregular, Tachycardia Gastrointestinal: Normal Bowel Sounds, No Organomegaly, No Pulsatile Mass, Non Tender, Soft Back: Normal Inspection, No CVA Tenderness, No Vertebral Tenderness Extremity: Normal Capillary Refill, Normal Inspection, Normal Range of Motion, Non Tender, No Calf Tenderness, No Pedal Edema Neurologic/Psychiatric: Alert, Oriented x3, No Motor/Sensory Deficits, medical appliance maker II- XII Norm as Tested, Abnormal Gait, Depressed Affect, Motor Weakness (Generalized weakness all extremities) Skin: Normal Color, Warm/Dry, Rash (Chronic venous stasis dermatitis lower extremities) Lymphatic: No Adenopathy Results/Procedures Lab Patient resulted labs reviewed. FIM Transfers Therapy Code Descriptions/Definitions Functional [place] Measure: 0=Not Assessed/NA 4=Minimal Assistance 1=Total Assistance 5=Supervision or Setup 2=Maximal Assistance 6=Modified [place] 3=Moderate Assistance 7=Complete IndependenceSCALE: Activities may be completed with or without assistive devices. 4-Ilhuwfuqrq-fvgmblq completes the activity by him/herself with no assistance from a helper. 5-Set-up or Clean-up Assistance-helper sets up or cleans up; patient completes activity. [place] assists only prior to or following the activity. 4-Supervision or Touching Assistance-helper provides verbal cues and/or touching/steadying and/or contact guard assistance as patient completes activity. Assistance may be provided throughout the activity or intermittently. 3-Partial/Moderate Assistance-helper does LESS THAN HALF the effort. [place] lifts, holds or supports trunk or limbs, but provides less than half the effort. 2-Substantial/Maximal Assistance-helper does MORE THAN HALF the effort. [place] lifts or holds trunk or limbs and provides more than half the effort. 5-Sgxffzcji-ftebkk does ALL the effort. Patient does none of the effort to complete the activity. Or, the assistance of 2 or more helpers is required for the patient to complete the activity. If activity was not attempted, code reason: 7-Patient Refused. 9-Not Applicable-not attempted and the patient did not perform the activity before the current illness, exacerbation or injury. 10-Not Attempted due to Environmental Limitations-(lack of equipment, weather restraints, etc.). 88-Not Attempted due to Medical Conditions or Safety Concerns. Roll Left to Right (QC): 4 Sit to Lying (QC): 5 Sit to Stand (QC): 6 Chair/Veu-yv-Osqll Xfer(QC): 4 Car Transfer (QC): 88 Gait Training Does the Patient Walk?: Yes Distance: 500 ft Walk 10 feet (QC): 6 Walk 50 ft with 2 Turns(QC): 6 Walk 150 ft (QC): 6 Walking 10ft/uneven surface-QC: 3 Gait Persons Needed: 0 Gait Assistive Device: Cane Single Point Wheelchair Training Does the Pt Use a Wheelchair?: No Wheel 50 ft with 2 turns (QC): 88 Wheel 150 ft (QC): 88 Stair Training Stair Training: Handrails/: 2 handrails #of Steps: 8 1 Step (curb) (QC): 5 4 Steps (QC): 5 12 Steps (QC): 88 Stairs: Pattern: Step to Balance Picking up an Object (QC): 4 ADL-Treatment Eating (QC): 6 Oral Hygiene (QC): 6 (IND standing at sink) Shower/Bathe Self (QC): 6 (IND, able to wash/dry all parts) Upper Body Dressing (QC): 6 (IND with shoe puller shirt.) Lower Body Dressing (QC): 6 (IND with shorts) On/Off Footwear (QC): 6 (IND with gripper socks.) Toileting Hygiene (QC): 6 Toilet Transfer (QC): 6 Assessment/Plan Assessment and Plan Assess & Plan/Chief Complaint Assessment: Severe debility with multiple hospital stays Oxygen dependent COPD end-stage Smoker Atrial fibrillation Congestive heart failure Anemia Chronic kidney disease Chronic lymphedema bilateral lower extremities Venous stasis dermatitis Bipolar Anxiety Plan: Supportive care Oxygen supplementation 27/04 Monitor labs Monitor kidney function Aggressive therapy 04/28/2021: Maintain oxygen Pain control Monitor hemoglobin 04/29/2021: Oxygen to maintain Supportive care Monitor closely 04/30/2021: Supportive care Pain control Oxygen supplementation 05/01/2021: Supportive care Discharge on Thursday Change ointments for lower extremities 05/02/2021: Supportive care Oxygen maintain 05/03/2021: Nystatin triamcinolone cream to legs Maintain oxygen 05/04/2021: Much improved lower extremities Oxygen dependent 27/0405/05/2021: Nystatin and triamcinolone to the legs Discharge plan for tomorrow (1) Debility Status: Acute (2) Heart failure Status: Acute (3) Venous stasis dermatitis of both lower extremities Status: Acute (4) Lymphedema of both lower extremities Status: Chronic (5) Paroxysmal A-fib Status: Chronic (6) Very heavy cigarette smoker (40 or more per day) Status: Acute (7) HTN (hypertension) Status: Chronic (8) Pulmonary hypertension (9) Chronic renal insufficiency Status: Acute (10) COPD (chronic obstructive pulmonary disease) Status: Acute (11) Chronic anemia Status: Acute (12) Pedal edema Status: Acute (13) DVT (deep venous thrombosis) Status: Chronic TAL YANEZ DO May 05, 2021 06:09
[2021-05-05] MEDS: FUROSEMIDE 40 MG (LASIX) TAB PO SCH (06:45)
[2021-05-05] MEDS: KCL 20 MEQ TAB (K-DUR) PO SCH (06:46)
[2021-05-05] MEDS: RT--FLUTICASONE/SALMETEROL 232-14 (AIRDUO RespiCLICK) IH SCH ×2 (07:00→21:09)
[2021-05-05] MEDS: UMECLIDINIUM BROMIDE (INCRUSE ELLIPTA) 7'S IH SCH (07:00)
[2021-05-05 08:32] VITALS: BP 139/76
[2021-05-05] MEDS: FLUoxetine HCL 10 MG (PROzac) CAPSULE/TABLET PO SCH (08:34)
[2021-05-05] MEDS: dilTIAZem120 MG (CARDIZEM CD) CAP PO SCH (08:34)
[2021-05-05] MEDS: ASPIRIN 81 MG CHEW (CHILDREN'S ASA) PO SCH (08:34)
[2021-05-05] MEDS: GABAPENTIN 600 MG (NEURONTIN) TAB PO SCH ×3 (08:34→21:49)
[2021-05-05] MEDS: TRIAMCINOLONE 0.1% CR (KENALOG) 80 GM TUBE TP SCH ×2 (08:35→21:49)
[2021-05-05] MEDS: LORATADINE (CLARITIN) 10 MG TAB PO SCH (08:35)
[2021-05-05] MEDS: meTOprolol TARTRATE 50 MG (LOPRESSOR) TAB PO SCH ×2 (08:35→21:48)
[2021-05-05] MEDS: NYSTATIN CREAM (MYCOSTATIN) 30 GM TUBE TP SCH ×2 (08:35→21:49)
[2021-05-05] MEDS: polyethylene glycoL POWDER 17 GM (MIRALAX) PACK PO SCH ×2 (09:00→21:00)
[2021-05-05] MEDS: SENNA W/DOCUSATE (SENOKOT S) TABLET PO SCH ×2 (09:00→21:00)
[2021-05-05] MEDS: DOCUSATE SODIUM 100 MG (COLACE) CAP PO SCH ×2 (09:00→21:00)
[2021-05-05] MEDS: RIVAROXABAN 20 MG TABLET (XARELTO) PO SCH (17:04)
[2021-05-05 20:00] VITALS: BP 157/72
[2021-05-05] MEDS: MELATONIN 3 MG TABLET PO PRN (21:48)
[2021-05-06] MEDS: KCL 20 MEQ TAB (K-DUR) PO SCH (06:35)
[2021-05-06] MEDS: FUROSEMIDE 40 MG (LASIX) TAB PO SCH (06:36)
[2021-05-06 06:44] LABS: BASOPHILS % (AUTO) 0 % (0-10); EOSINOPHILS # (AUTO) 0.2 10^3/uL (0.0-0.3); EOSINOPHILS % (AUTO) 3 % (0-10); HEMATOCRIT 29 % (35-52); HEMOGLOBIN 8.5 g/dL (11.5-16.0); LYMPHOCYTES # (AUTO) 1.2 10^3/uL (1.0-4.0); LYMPHOCYTES % (AUTO) 17 % (12-44); MEAN CORPUSCULAR HEMOGLOBIN 28 pg (25-34); MEAN CORPUSCULAR HGB CONC 29 g/dL (32-36); MEAN CORPUSCULAR VOLUME 95 fL (80-99); MEAN PLATELET VOLUME 9.6 fL (9.0-12.2); MONOCYTES # (AUTO) 0.4 10^3/uL (0.0-1.0); MONOCYTES % (AUTO) 5 % (0-12); NEUTROPHILS # (AUTO) 5.3 10^3/uL (1.8-7.8); NEUTROPHILS % (AUTO) 74 % (42-75); PLATELET COUNT 267 10^3/uL (130-400); WHITE BLOOD COUNT 7.2 10^3/uL (4.3-11.0)
[2021-05-06 06:58] LABS: ALBUMIN 3.5 GM/DL (3.2-4.5)
[2021-05-06 06:59] LABS: POTASSIUM 4.4 MMOL/L (3.6-5.0)
[2021-05-06 07:00] LABS: CALCIUM 9.1 MG/DL (8.5-10.1)
[2021-05-06 07:01] LABS: TOTAL PROTEIN 6.2 GM/DL (6.4-8.2)
[2021-05-06 07:03] LABS: BILIRUBIN,TOTAL 0.3 MG/DL (0.1-1.0)
[2021-05-06 07:05] LABS: CREATININE SERUM 1.18 MG/DL (0.60-1.30)
[2021-05-06] MEDS: RT--FLUTICASONE/SALMETEROL 232-14 (AIRDUO RespiCLICK) IH SCH (07:35)
[2021-05-06] MEDS: UMECLIDINIUM BROMIDE (INCRUSE ELLIPTA) 7'S IH SCH (07:35)
[2021-05-06 07:43] VITALS: BP 128/59
[2021-05-06] MEDS: GABAPENTIN 600 MG (NEURONTIN) TAB PO SCH (08:36)
[2021-05-06] MEDS: meTOprolol TARTRATE 50 MG (LOPRESSOR) TAB PO SCH (08:37)
[2021-05-06] MEDS: FLUoxetine HCL 10 MG (PROzac) CAPSULE/TABLET PO SCH (08:37)
[2021-05-06] MEDS: LORATADINE (CLARITIN) 10 MG TAB PO SCH (08:38)
[2021-05-06] MEDS: ASPIRIN 81 MG CHEW (CHILDREN'S ASA) PO SCH (08:38)
[2021-05-06] MEDS: dilTIAZem120 MG (CARDIZEM CD) CAP PO SCH (08:38)
[2021-05-06] MEDS: polyethylene glycoL POWDER 17 GM (MIRALAX) PACK PO SCH (08:41)
[2021-05-06] MEDS: DOCUSATE SODIUM 100 MG (COLACE) CAP PO SCH (08:42)
[2021-05-06] MEDS: NYSTATIN CREAM (MYCOSTATIN) 30 GM TUBE TP SCH (08:43)
[2021-05-06] MEDS: TRIAMCINOLONE 0.1% CR (KENALOG) 80 GM TUBE TP SCH (08:43)
[2021-05-06] MEDS: SENNA W/DOCUSATE (SENOKOT S) TABLET PO SCH (08:54)
--- NOTE | 2021-05-06 09:23 | Physical Therapy Daily Note ---
PT Daily Note-Current Subjective Patient in recliner pre tx, agrees to PT, has 4/10 pain in both feet. Appearance Patient in recliner post tx with nurse call, phone, tray, all needs met. Mental Status Patient Orientation: Person, Place, Situation Attachments: Oxygen Transfers SCALE: Activities may be completed with or without assistive devices. 0-Ssmngihnsv-rjjfjti completes the activity by him/herself with no assistance from a helper. 5-Set-up or Clean-up Assistance-helper sets up or cleans up; patient completes activity. [place] assists only prior to or following the activity. 4-Supervision or Touching Assistance-helper provides verbal cues and/or touching/steadying and/or contact guard assistance as patient completes activity. Assistance may be provided throughout the activity or intermittently. 3-Partial/Moderate Assistance-helper does LESS THAN HALF the effort. [place] lifts, holds or supports trunk or limbs, but provides less than half the effort. 2-Substantial/Maximal Assistance-helper does MORE THAN HALF the effort. [place] lifts or holds trunk or limbs and provides more than half the effort. 0-Lktabjlts-ndprkm does ALL the effort. Patient does none of the effort to complete the activity. Or, the assistance of 2 or more helpers is required for the patient to complete the activity. If activity was not attempted, code reason: 7-Patient Refused. 9-Not Applicable-not attempted and the patient did not perform the activity before the current illness, exacerbation or injury. 10-Not Attempted due to Environmental Limitations-(lack of equipment, weather restraints, etc.). 88-Not Attempted due to Medical Conditions or Safety Concerns. Roll Left & Right (QC): 6 Sit to Lying (QC): 6 Lying to Sitting/Side of Bed(Q: 6 Sit to Stand (QC): 6 Chair/Kyi-vv-Tqqth Xfer(QC): 6 Toilet Transfer (QC): 6 Car Transfer (QC): 6 Patient performs bed mobility and supine <-> sit with independence, sit <-> stand and transfers with independence, car transfer independent. Weight Bearing Full Weight Bearing Full Weight Bearing Gait Training Distance: 300', 120' Walk 10 feet (QC): 4 Walk 50 ft with 2 Turns(QC): 4 Walk 150 ft (QC): 4 Walking 10ft/uneven surface-QC: 4 Gait Persons Needed: 1 Gait Assistive Device: Cane Single Point Patient can ambulate 300' with a rolling walker with SBA (including 50' with at least 2 turns of 90 degrees and 10' over an uneven surface), she has moments of unsteadiness but has not had a full LOB. Patient usually has her unsteadiness with turning. She would benefit from using a rolling walker or 4 wheeled walker vs a single point cane. Wheelchair Training Does the Pt Use a Wheelchair?: No Stair Training Stair Training: Handrails/: 2 handrails #of Steps: 12 1 Step (curb) (QC): 4 4 Steps (QC): 4 12 Steps (QC): 4 Stairs: Pattern: Reciprocal Patient can go up and down 12 steps using 2 handrails with SBA, again, patient had a couple of moments of unsteadiness but no LOB Balance Picking up an Object (QC): 6 Treatments bed mobility and transfers, ambulation, stair training, gait training Assessment Current Status: Fair Progress much improved functional mobility overall during her stay PT Short Term Goals Short Term Goals Time Frame: May 11, 2021 Roll Left & Right: 5 Sit to lyin Lying to sitting on side of be: 5 Sit to stand: 5 Chair/ktv-oc-zdagu transfer: 5 Toilet transfer: 5 Car transfer: 5 Walk 10 feet: 5 Walk 50 feet with two turns: 5 Walk 150 feet: 5 Walking 10ft on uneven surface: 5 1 step (curb): 5 4 steps: 5 12 steps: 5 Picking up objects: 5 Does pt use a wc or scooter: No Wheel 50ft w/2 turns: 88 Wheel 150 feet: 88 Type: N/A PT Fdc Goals Fdc Goals PT Product Design Specialist Goals Time Frame: May 25, 2021 Roll Left & Right (QC): 6 Sit to Lying (QC): 6 Lying-Sitting on Side/Bed(QC): 6 Sit to Stand (QC): 6 Chair/Dtp-yq-Exvay Xfer(QC): 6 Toilet Transfer (QC): 6 Car Transfer (QC): 6 Does the Patient Walk: Yes Walk 10 feet (QC): 6 Walk 50ft with 2 Turns (QC): 6 Walk 150 ft (QC): 6 Walking 10ft on Uneven Surface: 6 1 Step (curb) (QC): 6 4 Steps (QC): 6 12 Steps (QC): 6 Picking up an Object (QC): 6 Does the Pt use WC or Scooter?: No Wheel 50 feet with 2 turns (QC: 88 Type: N/A Wheel 150 feet: 88 Type: N/A PT Plan Problem List Problem List: Activity Tolerance, Functional Strength, Safety, Balance, Gait, Transfer, Bed Mobility, ROM Treatment/Plan Treatment Plan: Continue Plan of Care Treatment Plan: Bed Mobility, Education, Functional Activity Lyn, Functional Strength, Group Therapy, Gait, Safety, Therapeutic Exercise, Transfers Treatment Duration: Jun 29, 2021 Frequency: At least 5 of 7 days/Wk (IRF) Estimated Hrs Per Day: 1.5 hours per day Patient and/or Family Agrees t: Yes Safety Risks/Education Patient Education: Gait Training, Transfer Techniques, Steps, Correct Positioning, Safety Issues Teaching Recipient: Patient Teaching Methods: Demonstration, Discussion Response to Teaching: Verbalize Understanding Time/GCodes Time In: 0900 Time Out: 917 Total Billed Treatment Time: 18 Total Billed Treatment 1 visit FA 18' GLENNA PRADHAN PT May 06, 2021 09:23
[2021-05-06] MEDS ORDERED: OXYC10TA7 PO (09:28)
[2021-05-06] MEDS ORDERED: NYST15CR TP (09:28)
[2021-05-06] MEDS ORDERED: TR1C15 TP (09:28)
--- NOTE | 2021-05-06 09:29 | D/C HH Face to Face Order ---
D/C Face to Face Orders Reconcile Patient Problems Problems Reviewed?: Yes Instructions for Patient Via [facility], Patient Instructions/FollowUp: PCP 1 week Physician to follow Patient: PCP Discharge Diet for Home: No Restrictions Patient Problems: Debility COPD Patient Data-Allergies,Ht & Wt Patient Allergies: Coded Allergies: No Known Drug Allergies (Unverified , 04/29/19) Height (Feet): 5 Height (Inches): 5.00 Weight (Pounds): 218 Weight (Ounces): 0.0 Home Health Need/Face to Face Date of Face to Face: May 06, 2021 Clinical Findings: Generalized weakness and fatigue, Instability, Muscle weakness I have seen Pt hoxt-lo-moqw: Yes Discharged To: Home Diagnosis/Conditions: Debility Patient is Homebound due to: [place] fall risk due to instabilty, Muscle weakness Homebound Status Due to the above stated illness, injury or surgical procedure (medical condition or diagnosis) and associated clinical findings, the patient is homebound because of his/her inability to leave home except with aid of a supportive device and/or person AND leaving the home requires a considerable and taxing effort or is medically contraindicated. Pt req the following assistanc: Walker Home Health Nursing Orders Home Health Services Order: Nursing Services, Licensed Certified Orthotist-Evaluate & Treat, Physical Therapy-Evaluate & Treat Certify Stmt I certify that this patient is under my care and that I, a nurse practitioner or a physician; a administrative support assistant working with me, had a face to face encounter that - meets the physician face to face encounter requirements with this patient as dated. TAL YANEZ DO May 06, 2021 09:29
[2021-05-06] MEDS ORDERED: ALPR.25T PO (09:47)
[2021-05-06] MEDS ORDERED: RIVA20TA PO (09:47)
--- NOTE | 2021-05-06 09:51 | Discharge Summary ---
Diagnosis/Chief Complaint Date of Admission Apr 27, 2021 at 10:34 Date of Discharge Discharge Date: May 06, 2021 Discharge Diagnosis Assessment: Severe debility with multiple hospital stays Oxygen dependent COPD end-stage Smoker Atrial fibrillation Congestive heart failure Anemia Chronic kidney disease Chronic lymphedema bilateral lower extremities Venous stasis dermatitis Bipolar Anxiety Plan: Supportive care Oxygen supplementation 27/04 Monitor labs Monitor kidney function Aggressive therapy 04/28/2021: Maintain oxygen Pain control Monitor hemoglobin 04/29/2021: Oxygen to maintain Supportive care Monitor closely 04/30/2021: Supportive care Pain control Oxygen supplementation 05/01/2021: Supportive care Discharge on Thursday Change ointments for lower extremities 05/02/2021: Supportive care Oxygen maintain 05/03/2021: Nystatin triamcinolone cream to legs Maintain oxygen 05/04/2021: Much improved lower extremities Oxygen dependent 27/0405/05/2021: Nystatin and triamcinolone to the legs Discharge plan for tomorrow (1) Debility Status: Acute (2) Heart failure Status: Acute (3) Venous stasis dermatitis of both lower extremities Status: Acute (4) Lymphedema of both lower extremities Status: Chronic (5) Paroxysmal A-fib Status: Chronic (6) Very heavy cigarette smoker (40 or more per day) Status: Acute (7) HTN (hypertension) Status: Chronic (8) Pulmonary hypertension (9) Chronic renal insufficiency Status: Acute (10) COPD (chronic obstructive pulmonary disease) Status: Acute (11) Chronic anemia Status: Acute (12) Pedal edema Status: Acute (13) DVT (deep venous thrombosis) Status: Chronic Discharge Summary Discharge Physical Examination Allergies: Coded Allergies: No Known Drug Allergies (Unverified , 04/29/19) Vitals & I&Os Vital Signs Date Time Temp Pulse Resp B/P (MAP) Pulse Ox O2 Delivery O2 Flow Rate FiO2 05/06/21 11:45 05/06/21 08:46 Nasal Cannula 3.00 05/06/21 07:43 36.6 71 18 92 General Appearance: Alert, Oriented X3, Cooperative Respiratory: Clear to Auscultation Cardiovascular: Regular Rate Neuro: Normal Gait, Normal Speech, Strength at 5/5 X4 Ext Psych/Mental Status: Mental Status NL Hospital Course Was the Problem List Reviewed?: Yes Hospital course: Pt had an uneventful nine day hospital course while being in the inpatient rehab unit for debility, she was maintained on onxygen of which she wears 27/04, venous stasis dermatitis of the leg was helped tremendously with Triamcinolone and Nystatin cream. Pain medication was maintained along with Xanax, bowels returned back to normal, she was able to be up and around, she decided to go home with home health, she was deemed stable for discharge and will be having close follow-up in the meantime with PCP, Dr. Hicks. Labs (last 24 hrs) Laboratory Tests 04/28/21 04:53: White Blood Count 7.6, Red Blood Count 2.91L, Hemoglobin 7.9L, Hematocrit 28L, Mean Corpuscular Volume 97, Mean Corpuscular Hemoglobin 27, Mean Corpuscular Hemoglobin Concent 28L, Red Cell Distribution Width 21.5H, Platelet Count 356, Mean Platelet Volume 9.6, Immature Granulocyte % (Auto) 1, Neutrophils (%) (Auto ) 66, Lymphocytes (%) (Auto) 17, Monocytes (%) (Auto) 7, Eosinophils (%) (Auto) 9, Basophils (%) (Auto) 0, Neutrophils # (Auto) 5.0, Lymphocytes # (Auto) 1.3, Monocytes # (Auto) 0.6, Eosinophils # (Auto) 0.6H, Basophils # (Auto) 0.0, I mmature Granulocyte # (Auto) 0.1, Sodium Level 145, Potassium Level 3.7, Chloride Level 105, Carbon Dioxide Level 29, Anion Gap 11, Blood Urea Nitrogen 18, Creatinine 1.16, Estimat Glomerular Filtration Rate 48, BUN/Creatinine Ratio 16, Glucose Level 121H, Calcium Level 9.1, Corrected Calcium 9.7, Iron Level 191H, Total Bilirubin 0.3, Aspartate Amino Transf (AST/SGOT) 17, Alanine Aminotransferase (ALT/SGPT) 13, Alkaline Phosphatase 80, Total Protein 6.0L, Albumin 3.3 05/06/21 06:24: White Blood Count 7.2, Red Blood Count 3.05L, Hemoglobin 8.5L, Hematocrit 29L, Mean Corpuscular Volume 95, Mean Corpuscular Hemoglobin 28, Mean Corpuscular Hemoglobin Concent 29L, Red Cell Distribution Width 19.9H, Platelet Count 267, Mean Platelet Volume 9.6, Immature Granulocyte % (Auto) 1, Neutrophils (%) (Auto) 74, Lymphocytes (%) (Auto) 17, Monocytes (%) (Auto) 5, Eosinophils (%) (Auto) 3, Basophils (%) (Auto) 0, Neutrophils # (Auto) 5.3, Lymphocytes # (Auto) 1.2, Monocytes # (Auto) 0.4, Eosinophils # (Auto) 0.2, Basophils # (Auto) 0.0, Immature Granulocyte # (Auto) 0.0, Sodium Level 142, Potassium Level 4.4, Chloride Level 106, Carbon Dioxide Level 23, Anion Gap 13, Blood Urea Nitrogen 16, Creatinine 1.18, Estimat Glomerular Filtration Rate 47, BUN/Creatinine Ratio 14, Glucose Level 183H, Calcium Level 9.1, Corrected Calcium 9.5, Total Bilirubin 0.3, Aspartate Amino Transf (AST/SGOT) 15, Alanine Aminotransferase (ALT/SGPT) 22, Alkaline Phosphatase 113, Total Protein 6.2L, Albumin 3.5 Pending Labs Laboratory Tests 04/28/21 04:53: White Blood Count 7.6, Red Blood Count 2.91, Hemoglobin 7.9, Hematocrit 28, Mean Corpuscular Volume 97, Mean Corpuscular Hemoglobin 27, Mean Corpuscular Hemoglobin Concent 28, Red Cell Distribution Width 21.5, Platelet Count 356, Mean Platelet Volume 9.6, Immature Granulocyte % (Auto) 1, Neutrophils (%) (Auto) 66, Lymphocytes (%) (Auto) 17, Monocytes (%) (Auto) 7, Eosinophils (%) (Auto) 9, Basophils (%) (Auto) 0, Neutrophils # (Auto) 5.0, Lymphocytes # (Auto) 1.3, Monocytes # (Auto) 0.6, Eosinophils # (Auto) 0.6, Basophils # (Auto) 0.0, Immature Granulocyte # (Auto) 0.1, Sodium Level 145, Potassium Level 3.7, Chl oride Level 105, Carbon Dioxide Level 29, Anion Gap 11, Blood Urea Nitrogen 18, Creatinine 1.16, Estimat Glomerular Filtration Rate 48, BUN/Creatinine Ratio 16, Glucose Level 121, Calcium Level 9.1, Corrected Calcium 9.7, Iron Level 191, Total Bilirubin 0.3, Aspartate Amino Transf (AST/SGOT) 17, Alanine Aminotransferase (ALT/SGPT) 13, Alkaline Phosphatase 80, Total Protein 6.0, Alb umin 3.3 05/06/21 06:24: White Blood Count 7.2, Red Blood Count 3.05, Hemoglobin 8.5, Hematocrit 29, Mean Corpuscular Volume 95, Mean Corpuscular Hemoglobin 28, Mean Corpuscular Hemoglobin Concent 29, Red Cell Distribution Width 19.9, Platelet Count 267, Mean Platelet Volume 9.6, Immature Granulocyte % (Auto) 1, Neutrophils (%) (Auto) 74, Lymphocytes (%) (Auto) 17, Monocytes (%) (Auto) 5, Eosinophils (%) (Auto) 3, Basophils (%) (Auto) 0, Neutrophils # (Auto) 5.3, Lymphocytes # (Auto) 1.2, Monocytes # (Auto) 0.4, Eosinophils # (Auto) 0.2, Basophils # (Auto) 0.0, Immature Granulocyte # (Auto) 0.0, Sodium Level 142, Potassium Level 4.4, Chloride Level 106, Carbon Dioxide Level 23, Anion Gap 13, Blood Urea Nitrogen 16, Creatinine 1.18, Estimat Glomerular Filtration Rate 47, BUN/Creatinine Ratio 14, Glucose Level 183, Calcium Level 9.1, Corrected Calcium 9.5, Total Bilirubin 0.3, Aspartate Amino Transf (AST/SGOT) 15, Alanine Aminotransferase (ALT/SGPT) 22, Alkaline Phosphatase 113, Total Protein 6.2, Albumin 3.5 Discharge Home Medications: Active Scripts Active Xanax Tablet (Alprazolam) 0.25 Mg Tab 0.25 Mg PO Q8H PRN Xarelto (Rivaroxaban) 20 Mg Tablet 20 Mg PO DAILY LAST FILLED 03-12-2021 #30/30 [facility] [employer] Triamcinolone Acetonide 0.1% Cream (Triamcinolone Acet) 15 Gm Cr 0 Gm TP BID Nystatin 15 Gm Cream..g. 0 Gm TP BID Oxycodone HCl 10 Mg Tablet 10 Mg PO Q4H PRN Reported Loratadine 10 Mg Tablet 10 Mg PO DAILY Potassium Chloride 20 Meq Tablet.er 20 Meq PO DAILY Prozac (Fluoxetine HCl) 10 Mg Capsule 10 Mg PO DAILY Breztri Aerosphere Inhaler (Budesonide/Glycopyr/Formoterol) 10.7 Gm Hfa.aer.ad 2 Puff INH BID Albuterol Sulfate 1.25 Mg/3 Ml Vial.neb 3 Ml INH Q6H PRN Ventolin Hfa (Albuterol Sulfate) 1 Puff Puff 2 Puff INH Q4H PRN Cartia Xt (Diltiazem HCl) 120 Mg Cap.er.24h 120 Mg PO DAILY Budesonide 1 Mg/2 Ml Ampul.neb 2 Ml INH BID Furosemide 80 Mg Tablet 80 Mg PO DAILY Lisinopril 10 Mg Tablet 10 Mg PO DAILY PRN Metoprolol Tartrate 100 Mg Tablet 50-100 Mg PO BID DEPENDING ON REAL TIME READING PATIENT WILL TAKE BETWEEN TO 1 TABLET TWICE DAILY Aspirin 81 Mg Tab.chew 81 Mg PO DAILY Gabapentin 600 Mg Tablet 600 Mg PO TID Instructions to patient/family Please see electronic discharge instructions given to patient. Diagnosis/Problems Diagnosis/Problems (1) Debility Status: Acute (2) Heart failure Status: Acute (3) Venous stasis dermatitis of both lower extremities Status: Acute (4) Lymphedema of both lower extremities Status: Chronic (5) Paroxysmal A-fib Status: Chronic (6) Very heavy cigarette smoker (40 or more per day) Status: Acute (7) HTN (hypertension) Status: Chronic (8) Pulmonary hypertension (9) Chronic renal insufficiency Status: Acute (10) COPD (chronic obstructive pulmonary disease) Status: Acute (11) Chronic anemia Status: Acute (12) Pedal edema Status: Acute (13) DVT (deep venous thrombosis) Status: Chronic TAL YANEZ DO May 06, 2021 09:51
--- NOTE | 2021-05-06 09:51 | PM&R Progress Note ---
Subjective HPI/CC On Admission Date Seen by Provider: May 06, 2021 Time Seen by Provider: 09:30 Subjective/Events-last exam 05/05/2021: Legs are much better Ready for discharge tomorrow Oxygen maintain 27/04 Has done very well in rehab 05/04/2021: No major issues Sleeping with oxygen Legs look much better with nystatin and triamcinolone cream Monitoring closely Discharge Thursday05/03/2021: Patient doing pretty well Discharge on Thursday Oxygen maintained Legs are much improved with triamcinolone and nystatin 05/02/2021: Pt will go home on Thursday Nystatin and Triamcinalone cream has helped her legs No other concerns Oxygen maintained 05/01/2021: Pt swelling is a lot better Venous stasis dermatitis will be treated with Nystatin and Triamcinolone Will DC the AD ointment Overall doing pretty good and will be ready for DC on Thursday04/30/2021: Pt reports she is feeling weak Iron was given up on fourth floor and iron level is high at 191 Told me she was a previous alcoholic after her Edema is improved 04/29/2021: Pt doing pretty well Hgb 7.9 Redness from the venous stasis dermatitis Pain is an issue Maintain on oxygen 04/28/2021: Patient seems to be settling in well No falls Hemoglobin 7.9 Chronic pain issues discussed On 4 L of oxygen Chronic leg pain is the source of the chronic issues Smoking cessation discussed Check meds and labs Objective Exam Vital Signs Vital Signs Date Time Temp Pulse Resp B/P (MAP) Pulse Ox O2 Delivery O2 Flow Rate FiO2 05/06/21 07:43 36.6 71 18 128/59 (82) 92 Nasal Cannula 3.00 Capillary Refill : General Appearance: No Apparent Distress, WD/WN, Chronically ill, Obese HEENT: PERRL/EOMI, Normal ENT Inspection, Pharynx Normal Neck: Full Range of Motion, Normal Inspection, Non Tender, Supple, Carotid Bruit Respiratory: Chest Non Tender, Lungs Clear, No Accessory Muscle Use, No Respiratory Distress, Decreased Breath Sounds Cardiovascular: No Edema, No Gallop, No JVD, No Murmur, Normal Peripheral Pulses, Irregularly Irregular, Tachycardia Gastrointestinal: Normal Bowel Sounds, No Organomegaly, No Pulsatile Mass, Non Tender, Soft Back: Normal Inspection, No CVA Tenderness, No Vertebral Tenderness Extremity: Normal Capillary Refill, Normal Inspection, Normal Range of Motion, Non Tender, No Calf Tenderness, No Pedal Edema Neurologic/Psychiatric: Alert, Oriented x3, No Motor/Sensory Deficits, 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 FIM Transfers Therapy Code Descriptions/Definitions Functional [place] Measure: 0=Not Assessed/NA 4=Minimal Assistance 1=Total Assistance 5=Supervision or Setup 2=Maximal Assistance 6=Modified [place] 3=Moderate Assistance 7=Complete IndependenceSCALE: Activities may be completed with or without assistive devices. 7-Jpvtlaqlnv-cbvdidp completes the activity by him/herself with no assistance from a helper. 5-Set-up or Clean-up Assistance-helper sets up or cleans up; patient completes activity. [place] assists only prior to or following the activity. 4-Supervision or Touching Assistance-helper provides verbal cues and/or touching/steadying and/or contact guard assistance as patient completes activity. Assistance may be provided throughout the activity or intermittently. 3-Partial/Moderate Assistance-helper does LESS THAN HALF the effort. [place] lifts, holds or supports trunk or limbs, but provides less than half the effort. 2-Substantial/Maximal Assistance-helper does MORE THAN HALF the effort. [place] lifts or holds trunk or limbs and provides more than half the effort. 6-Ekhafjjlz-egjipr does ALL the effort. Patient does none of the effort to complete the activity. Or, the assistance of 2 or more helpers is required for the patient to complete the activity. If activity was not attempted, code reason: 7-Patient Refused. 9-Not Applicable-not attempted and the patient did not perform the activity before the current illness, exacerbation or injury. 10-Not Attempted due to Environmental Limitations-(lack of equipment, weather restraints, etc.). 88-Not Attempted due to Medical Conditions or Safety Concerns. Roll Left to Right (QC): 6 Sit to Lying (QC): 6 Sit to Stand (QC): 6 Chair/Luq-od-Nemzp Xfer(QC): 6 Car Transfer (QC): 6 Gait Training Does the Patient Walk?: Yes Distance: 300', 120' Walk 10 feet (QC): 4 Walk 50 ft with 2 Turns(QC): 4 Walk 150 ft (QC): 4 Walking 10ft/uneven surface-QC: 4 Gait Persons Needed: 1 Gait Assistive Device: Cane Single Point Wheelchair Training Does the Pt Use a Wheelchair?: No Wheel 50 ft with 2 turns (QC): 88 Wheel 150 ft (QC): 88 Stair Training Stair Training: Handrails/: 2 handrails #of Steps: 12 1 Step (curb) (QC): 4 4 Steps (QC): 4 12 Steps (QC): 4 Stairs: Pattern: Reciprocal Balance Picking up an Object (QC): 6 ADL-Treatment Eating (QC): 6 Oral Hygiene (QC): 6 (IND standing at sink) Shower/Bathe Self (QC): 6 (IND, able to wash/dry all parts) Upper Body Dressing (QC): 6 (IND with tap puller shirt.) Lower Body Dressing (QC): 6 (IND with shorts) On/Off Footwear (QC): 6 (IND with gripper socks.) Toileting Hygiene (QC): 6 Toilet Transfer (QC): 6 Assessment/Plan Assessment and Plan Assess & Plan/Chief Complaint Assessment: Severe debility with multiple hospital stays Oxygen dependent COPD end-stage Smoker Atrial fibrillation Congestive heart failure Anemia Chronic kidney disease Chronic lymphedema bilateral lower extremities Venous stasis dermatitis Bipolar Anxiety Plan: Supportive care Oxygen supplementation 27/04 Monitor labs Monitor kidney function Aggressive therapy 04/28/2021: Maintain oxygen Pain control Monitor hemoglobin 04/29/2021: Oxygen to maintain Supportive care Monitor closely 04/30/2021: Supportive care Pain control Oxygen supplementation 05/01/2021: Supportive care Discharge on Thursday Change ointments for lower extremities 05/02/2021: Supportive care Oxygen maintain 05/03/2021: Nystatin triamcinolone cream to legs Maintain oxygen 05/04/2021: Much improved lower extremities Oxygen dependent 27/0405/05/2021: Nystatin and triamcinolone to the legs Discharge plan for tomorrow (1) Debility Status: Acute (2) Heart failure Status: Acute (3) Venous stasis dermatitis of both lower extremities Status: Acute (4) Lymphedema of both lower extremities Status: Chronic (5) Paroxysmal A-fib Status: Chronic (6) Very heavy cigarette smoker (40 or more per day) Status: Acute (7) HTN (hypertension) Status: Chronic (8) Pulmonary hypertension (9) Chronic renal insufficiency Status: Acute (10) COPD (chronic obstructive pulmonary disease) Status: Acute (11) Chronic anemia Status: Acute (12) Pedal edema Status: Acute (13) DVT (deep venous thrombosis) Status: Chronic TAL YANEZ DO May 06, 2021 09:51
--- NOTE | 2021-05-06 09:55 | Occupational Ther Daily Note ---
OT Current Status-Daily Note Subjective Pt in recliner, agreeable to OT tx. Mental Status/Objective Patient Orientation: Person, Place, Time, Situation Attachments: Oxygen ADL-Treatment Therapy Code Descriptions/Definitions Functional [place] Measure: 0=Not Assessed/NA 4=Minimal Assistance 1=Total Assistance 5=Supervision or Setup 2=Maximal Assistance 6=Modified [place] 3=Moderate Assistance 7=Complete IndependenceSCALE: Activities may be completed with or without assistive devices. 5-Hijupommrw-myzuonk completes the activity by him/herself with no assistance from a helper. 5-Set-up or Clean-up Assistance-helper sets up or cleans up; patient completes activity. [place] assists only prior to or following the activity. 4-Supervision or Touching Assistance-helper provides verbal cues and/or touching/steadying and/or contact guard assistance as patient completes activity. Assistance may be provided throughout the activity or intermittently. 3-Partial/Moderate Assistance-helper does LESS THAN HALF the effort. [place] lifts, holds or supports trunk or limbs, but provides less than half the effort. 2-Substantial/Maximal Assistance-helper does MORE THAN HALF the effort. [place] lifts or holds trunk or limbs and provides more than half the effort. 1-Hlqsjvtik-aaqkqy does ALL the effort. Patient does none of the effort to complete the activity. Or, the assistance of 2 or more helpers is required for the patient to complete the activity. If activity was not attempted, code reason: 7-Patient Refused. 9-Not Applicable-not attempted and the patient did not perform the activity before the current illness, exacerbation or injury. 10-Not Attempted due to Environmental Limitations-(lack of equipment, weather restraints, etc.). 88-Not Attempted due to Medical Conditions or Safety Concerns. Eating (QC): 6 Oral Hygiene (QC): 6 Shower/Bathe Self (QC): 6 Upper Body Dressing (QC): 6 Lower Body Dressing (QC): 6 On/Off Footwear: 6 Toileting Hygiene (QC): 6 Toilet Transfer (QC): 6 Other Treatment Pt seated in recliner, used cane to perform functional mobility around room to gather clothing, able to manage O2 tubing safely. Pt transferred into bathroom and onto MO, adjusted water temperature, and doffed clothes. Pt completed shower, dried off, transferred to toilet to don clothing and perform toileting. Pt stood at sink to brush her teeth, then transferred to recliner. Post tx, pt seated in recliner, call light in reach and all need met. OT Short Term Goals Short Term Goals Time Frame: May 08, 2021 Shower/bathe self: 4 Upper body dressin Lower body dressin OT Shelter Goals Shelter Goals Time Frame: May 18, 2021 Eating (QC): 6 (met) Oral Hygiene (QC): 6 (met) Toileting Hygiene (QC): 6 (met) Shower/Bathe Self (QC): 6 (met) Upper Body Dressing (QC): 6 (met) Lower Body Dressing (QC): 6 (met) On/Off Footwear (QC): 6 (met) Additional Goals: 1-Demonstrate ADL Tasks, 2-Verbalize Understanding, 3- ImproveStrength/Lyn 1=Demonstrate adherence to instructed precautions during ADL tasks. 2=Patient will verbalize/demonstrate understanding of assistive dev ices/modifications for ADL. 3=Patient will improve strength/tolerance for activity to enable patient to perform ADL's. OT Education/Plan Problem List/Assessment Assessment: Decreased Activ Tolerance, Decreased UE Strength, Impaired I ADL's Discharge Recommendations Plan/Recommendations: Continue POC Treatment Plan/Plan of Care Patient would benefit from OT for education, treatment and training to promote independence in ADL's, mobility, safety and/or upper extremity function for ADL's. Plan of Care: ADL Retraining, Functional Mobility, Group Exercise/Act as Ind, UE Funct Exercise/Act Treatment Duration: May 18, 2021 Frequency: At least 5 of 7 days/Wk (IRF) Estimated Hrs Per Day: 1.5 hours per day Agreement: Yes Rehab Potential: Good Time/GCodes Start Time: 09:20 Stop Time: 09:50 Total Time Billed (hr/min): 30 Billed Treatment Time 1, ADL 2 REECE ROSA OT May 06, 2021 09:55
--- NOTE | 2021-05-06 10:00 | Therapy Team Discharge Summary ---
Therapy Discharge Summary Discharge Recommendations Date of Discharge Therapy D/C Recommendations: Occupational Therapy Home Care Occupational Therapy Pt admitted to ARU with debility. At PLOF, pt was independent with all ADLs and functional mobility using cane. Upon admission to ARU, pt required set up assistance with oral care, SBA showering, set up upper body dressing, SBA lower body dressing, set up footwear and IND wtih eating and toileting. OT txs have focused on increasing BUE strength and activity tolerance, increasing fine motor strength and coordination, and increasing safety and independence with ADLs and functional mobility. At discharge, pt was independent with all ADLs, meeting all LTGs. Pt has AE/DME in her home, no further equipment recommendations at this time. Pt to discharge from facility today, d/c from OT. Decreased Activ Tolerance, Decreased UE Strength, Impaired I ADL's PT Mission Assessment Specialist Goals [place] Assessment Specialist Goals PT Senior Care Goals Time Frame: May 25, 2021 Roll Left to Right (QC): 6 Sit to Lying (QC): 6 Lying-Sitting on Side/Bed(QC): 6 Sit to Stand (QC): 6 Chair/Jom-dd-Ydepl Xfer(QC): 6 Car Transfer (QC): 6 Does the Patient Walk: Yes Walk 10 feet (QC): 6 Walk 10ft-Uneven Surface(QC): 6 Walk 50ft with 2 Turns (QC): 6 Walk 150 ft (QC): 6 Does the Pt use WC or Scooter?: No Wheel 50 feet with 2 turns (QC: 88 1 Step (curb) (QC): 6 4 Steps (QC): 6 12 Steps (QC): 6 Picking up an Object (QC): 6 OT Mission Assessment Specialist Goals Senior Care Goals Time Frame: May 18, 2021 Eating (QC): 6 (met) Oral Hygiene (QC): 6 (met) Shower/Bathe Self (QC): 6 (met) Upper Body Dressing (QC): 6 (met) Lower Body Dressing (QC): 6 (met) On/Off Footwear (QC): 6 (met) Toileting Hygiene (QC): 6 (met) Toilet/Commode Transfer (QC): 6 Additional Goals: 1-Demonstrate ADL Tasks, 2-Verbalize Understanding, 3-ImproveStrength/Lyn 1=Demonstrate adherence to instructed precautions during ADL tasks. 2=Patient will verbalize/demonstrate understanding of assistive devices/modifications for ADL. 3=Patient will improve strength/tolerance for activity to enable patient to perf orm ADL's. REECE ROSA OT May 06, 2021 10:00
--- NOTE | 2021-05-06 13:46 | Therapy Team Discharge Summary ---
Therapy Discharge Summary Discharge Recommendations Date of Discharge Therapy D/C Recommendations: Occupational Therapy Home Care Physical Therapy Patient came to rehab with debility. Upon evaluation patient performed bed mobility and supine <-> sit with SBA, sit <-> stand and transfers with CGA, ambulated 150' with a rolling walker with CGA (including 50' with at least 2 turns of 90 degrees but needed min assist for 10' over an uneven surface), and picked up an object from the floor with CGA. Patient has been performing bed mobility and transfer training, balance and endurance training, functional strengthening, stair training, gait training, and education. Patient has made good progress but has not met her penitentiary goals for ambulation or stairs. Now, patient performs bed mobility and transfers with independence, car transfer independent, ambulates 300' with a SPC with SBA (including 50' with at least 2 turns of 90 degrees and 10' over an uneven surface), can go up and down 12 steps using 2 handrails with SBA, and can independently case picker an object from the floor. Patient has been discharged from this facility and will be discharged from PT at this time. 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 Usp Goals PT Usp Goals Time Frame: May 25, 2021 Roll Left to Right (QC): 6 Sit to Lying (QC): 6 Lying-Sitting on Side/Bed(QC): 6 Sit to Stand (QC): 6 Chair/Yfi-qb-Bcuft Xfer(QC): 6 Car Transfer (QC): 6 Does the Patient Walk: Yes Walk 10 feet (QC): 6 Walk 10ft-Uneven Surface(QC): 6 Walk 50ft with 2 Turns (QC): 6 Walk 150 ft (QC): 6 Does the Pt use WC or Scooter?: No Wheel 50 feet with 2 turns (QC: 88 1 Step (curb) (QC): 6 4 Steps (QC): 6 12 Steps (QC): 6 Picking up an Object (QC): 6 OT Powerhouse Mechanic Supervisor Goals Usp Goals Time Frame: May 18, 2021 Eating (QC): 6 (met) Oral Hygiene (QC): 6 (met) Shower/Bathe Self (QC): 6 (met) Upper Body Dressing (QC): 6 (met) Lower Body Dressing (QC): 6 (met) On/Off Footwear (QC): 6 (met) Toileting Hygiene (QC): 6 (met) Toilet/Commode Transfer (QC): 6 Additional Goals: 1-Demonstrate ADL Tasks, 2-Verbalize Understanding, 3-Improve Strength/Lyn 1=Demonstrate adherence to instructed precautions during ADL tasks. 2=Patient will verbalize/demonstrate understanding of assistive devices/modifications for ADL. 3=Patient will improve strength/tolerance for activity to enable patient to pe rform ADL's. GLENNA PRADHAN PT May 06, 2021 13:46
== END 2021-05-06 11:45 | disposition home health service (06) | DRG 92 ==
PROVIDERS: ADMIT Internal Medicine; ATTEND Internal Medicine
DX: G72.89 Other specified myopathies (principal); I13.0 Hypertensive heart and chronic kidney disease with heart failure and stage 1 through stage 4 chronic kidney disease, or unspecified chronic kidney disease; J44.9 Chronic obstructive pulmonary disease, unspecified; I87.2 Venous insufficiency (chronic) (peripheral); I89.0 Lymphedema, not elsewhere classified; F17.210 Nicotine dependence, cigarettes, uncomplicated; I48.0 Paroxysmal atrial fibrillation; I27.20 Pulmonary hypertension, unspecified; E78.00 Pure hypercholesterolemia, unspecified; N18.9 Chronic kidney disease, unspecified; I50.9 Heart failure, unspecified; K21.9 Gastro-esophageal reflux disease without esophagitis; F31.9 Bipolar disorder, unspecified; F10.10 Alcohol abuse, uncomplicated; F11.10 Opioid abuse, uncomplicated; Z99.81 Dependence on supplemental oxygen; Z86.718 Personal history of other venous thrombosis and embolism; Z87.01 Personal history of pneumonia (recurrent); Z79.82 Long term (current) use of aspirin; Z82.49 Family history of ischemic heart disease and other diseases of the circulatory system
CPT/HCPCS: 36415; 80053; 83540; 85025; 94640; 94760

== ENCOUNTER 2021-05-11 14:35 | Inpatient (IN) | payer BC, MEDICAID ==
[~2021-05-11] VITALS: Ht 165 cm; Wt 83.4 kg
[~2021-05-11 14:35] MED LIST changes: -ACETAMINOPHEN 325 MG TABLET PO PRN; +ALPR.25T PO; -BISACODYL 10 MG SUPP (DULCOLAX) PR PRN; -CALCIUM CARBONATE 500 MG (TUMS) TAB.CHEW PO PRN; -DOCUSATE SODIUM 100 MG (COLACE) CAP PO PRN; -FLEET ENEMA ADULT 1 EA BTL PR PRN; -LACTULOSE SYRUP 10GM/15ML (ENULOSE) 30ML UDC PO PRN; -LOPERAMIDE 2 MG (IMODIUM) TABLET PO PRN; +NYST15CR TP; +TR1C15 TP; -diphenhydrAMINE 25 MG TAB (BENADRYL) PO PRN; -guaiFENesin/CODEINE (ROBITUSSIN AC) 10ML UDC PO PRN
[2021-05-11 15:27] LABS: BASOPHILS % (AUTO) 0 % (0-10); EOSINOPHILS % (AUTO) 0 % (0-10); HEMATOCRIT 29 % (35-52); HEMOGLOBIN 8.5 g/dL (11.5-16.0); LYMPHOCYTES # (AUTO) 0.7 10^3/uL (1.0-4.0); LYMPHOCYTES % (AUTO) 5 % (12-44); MEAN CORPUSCULAR HEMOGLOBIN 28 pg (25-34); MEAN CORPUSCULAR HGB CONC 30 g/dL (32-36); MEAN CORPUSCULAR VOLUME 94 fL (80-99); MEAN PLATELET VOLUME 9.5 fL (9.0-12.2); MONOCYTES # (AUTO) 0.9 10^3/uL (0.0-1.0); MONOCYTES % (AUTO) 7 % (0-12); NEUTROPHILS # (AUTO) 12.1 10^3/uL (1.8-7.8); NEUTROPHILS % (AUTO) 88 % (42-75); PLATELET COUNT 378 10^3/uL (130-400); WHITE BLOOD COUNT 13.8 10^3/uL (4.3-11.0)
[2021-05-11 15:28] LABS: ALBUMIN 3.6 GM/DL (3.2-4.5)
[2021-05-11 15:29] LABS: POTASSIUM 4.1 MMOL/L (3.6-5.0)
[2021-05-11 15:30] LABS: CALCIUM 9.8 MG/DL (8.5-10.1)
[2021-05-11 15:33] LABS: BILIRUBIN,TOTAL 0.6 MG/DL (0.1-1.0)
[2021-05-11 15:35] LABS: CREATININE SERUM 1.18 MG/DL (0.60-1.30)
[2021-05-11 15:44] LABS: ANISOCYTOSIS MODERATE; BAND NEUTROPHILS 6 %; BASOPHILS % (MANUAL) 0 %; EOSINOPHILS % (MANUAL) 1 %; LYMPHOCYTES % (MANUAL) 4 %; MONOCYTES % (MANUAL) 3 %; NEUTROPHILS % (MANUAL) 86 %; POLYCHROMASIA MODERATE
--- NOTE | 2021-05-11 16:12 | Diagnostic Imaging Report ---
EXAM: CHEST 1 VIEW, AP/PA ONLY INDICATION: Cough. COMPARISON: Chest radiograph 04/24/2021. FINDINGS: New multifocal airspace opacities throughout the right lung and left lower lobe. Normal heart size and pulmonary vascularity. No pleural effusion or pneumothorax. No acute osseous finding. IMPRESSION: New bilateral multifocal airspace opacities, greater on the right, suspicious for pneumonitis. Recommend follow-up to resolution. Dictated by: Dictated on workstation # [id number]
[2021-05-11] MEDS ORDERED: NS 100 ML (IVPB) BAG IV ONE (16:15)
[2021-05-11] MEDS ORDERED: IOHEXOL 350 MG/ML 100 ML (OMNIPAQUE 350) VIAL IV ONE (16:15)
[2021-05-11] MEDS ORDERED: HOLD METFORMIN - RECEIVED CONTRAST 20 ML VIAL IV SCH (16:15)
[2021-05-11] MEDS ORDERED: cefTRIAXone 1,000 MG in WATER (STERILE) FOR INJECTION 10 ML IV ONE (16:45)
--- NOTE | 2021-05-11 16:47 | ED General ---
General Chief Complaint: Cough/Cold/Flu Symptoms Stated Complaint: COUGH, HEADACHE, FEVER Nursing Triage Note: PT PRESENTS TO ED VIA POV FROM HOME WITH COMPLAINTS OF COUGH, FEVER, MANDEL, AND MALAISE. 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 Source of Information: Patient Exam Limitations: No Limitations History of Present Illness Date Seen by Provider: May 11, 2021 Time Seen by Provider: 16:46 Initial Comments 3 days of cough headache fever general malaise. She is oxygen dependent on 2 L at home. Timing/Duration: 1-2 Days Severity: Moderate Associated Systoms: Denies Symptoms Allergies and Home Medications Allergies Coded Allergies: No Known Drug Allergies (Unverified , 04/29/19) Home Medications ALPRAZolam 0.25 Mg Tab, 0.25 MG PO Q8H PRN for ANXIETY Prescribed by: TAL YANEZ on 05/06/21 0947 Albuterol Sulfate 1 Puff Puff, 2 PUFF INH Q4H PRN for SHORTNESS OF BREATH, (Reported) Albuterol Sulfate 1.25 Mg/3 Ml Vial.neb, 3 ML INH Q6H PRN for SHORTNESS OF BREATH, (Reported) Aspirin 81 Mg Tab.chew, 81 MG PO DAILY, (Reported) Budesonide 1 Mg/2 Ml Ampul.neb, 2 ML INH BID, (Reported) Budesonide/Glycopyr/Formoterol 10.7 Gm Hfa.aer.ad, 2 PUFF INH BID, (Reported) Diltiazem HCl 120 Mg Cap.er.24h, 120 MG PO DAILY, (Reported) Fluoxetine HCl 10 Mg Capsule, 10 MG PO DAILY, (Reported) Furosemide 80 Mg Tablet, 80 MG PO DAILY, (Reported) Gabapentin 600 Mg Tablet, 600 MG PO TID, (Reported) Lisinopril 10 Mg Tablet, 10 MG PO DAILY PRN for BLOOD PRESSURE, (Reported) Loratadine 10 Mg Tablet, 10 MG PO DAILY, (Reported) Metoprolol Tartrate 100 Mg Tablet, 50-100 MG PO BID, (Reported) DEPENDING ON REAL TIME READING PATIENT WILL TAKE BETWEEN TO 1 TABLET TWICE DAILY Nystatin 15 Gm Cream..g., 0 GM TP BID Prescribed by: TAL YANEZ on 05/06/21 0928 Oxycodone HCl 10 Mg Tablet, 10 MG PO Q4H PRN for PAIN-SEVERE (8-10) Prescribed by: TAL YANEZ on 05/06/21927 Potassium Chloride 20 Meq Tablet.er, 20 MEQ PO DAILY, (Reported) Rivaroxaban 20 Mg Tablet, 20 MG PO DAILY LAST FILLED 03-12-2021 #30/30 [facility] Prescribed by: TAL YANEZ on 05/06/21 09 Triamcinolone Acet 15 Gm Cr, 0 GM TP BID Prescribed by: TAL YANEZ on 05/06/21927 Patient Home Medication List Home Medication List Reviewed: Yes Review of Systems Review of Systems Constitutional: see HPI EENTM: see HPI Respiratory: see HPI, cough Cardiovascular: no symptoms reported Genitourinary: no symptoms reported Musculoskeletal: no symptoms reported Psychiatric/Neurological: Headache Hematologic/Lymphatic: No Symptoms Reported Past Miuehmw-Acntcz-Rapukc Hx Patient Social History Tobacco Use?: Yes Tobacco type used: Cigarettes Smoking Status: Current Everyday Smoker Substance use?: No Alcohol Use?: No Pt feels they are or have been: No Immunizations Up To Date Tetanus Booster (TDap): Unknown Seasonal Allergies Seasonal Allergies: Yes Past Medical History Surgery/Hospitalization HX: PT HAS A COPD HX. IS ON 2L VIA NC AT HOME. ALSO ON XARELTO. 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 Sexually Transmitted Disease: No HIV/AIDS: No Genitourinary: Yes (NO DIALYSIS) Renal Failure, UTI-Chronic Gastrointestinal: Yes Gastroesophageal Reflux Musculoskeletal: Yes (CHRONIC GENERALIZED PAIN ) Endocrine: Yes (HAS BEEN ON INSULIN WHEN SHE HAS HAD STEROIDS-STATES SHE IS NOT DIABETIC) HEENT: No Cancer: No Psychosocial: Yes (OPIATE ABUSE, ALCOHOL ABUSE) Bipolar, Depression Integumentary: Yes (CHRONIC LEG WOUNDS/CELLULITIS) Blood Disorders: No Adverse Reaction/Blood Tranf: No Family Medical History Cerebrovascular accident (CVA) 19 FATHER, Onset:60 years & older FH: testicular cancer G8 BROTHER, Onset:30's - 40 Hypertension 19 FATHER, Onset:Unknown 19 MOTHER, Onset:Unknown G8 BROTHER, Onset:Unknown G8 BROTHER, Onset:Unknown Myocardial infarction 19 FATHER, Onset:40's - 50 Heart Disease, Hypertension SOCIAL HISTORY: -ETOH --ABUSE/REGULAR USE -DRUGS--LONG HISTORY OF OPIATE ABUSE -SMOKES 2 PPD ADDITIONAL PMH: -12/14/2020-TRANSFERRED TO [facility] FOR SEPTIC SHOCK WITH ACUTE RENAL FAILURE DUE TO CELLULITIS OF LEGS. -02/03/21-TRANSFERRED TO [place] FOR SEPSIS WITH ACUTE RENAL FAILURE, ALSO DUE TO CELLULITIS OF LEGS. -ADMITTED AND INTUBATED X 1 MONTH IN SEPTEMBER 2019 FOR BILATERAL PNEUMONIA AND ARDS. HISTORY OF OPIATE ABUSE/ADDICTION--HAS BEEN ON SUBOXONE, BUT STATES SHE CANNOT AFFORD IT AND IS NO LONGER TAKING IT OF 03/11/21 Physical Exam Vital Signs Vital Signs - First Documented Capillary Refill : Less Than 3 Seconds Height, Weight, BMI Height: 5'5.00" Weight: 218lbs. 0.0oz. [id number]; 35.00 BMI Method:Stated General Appearance: No Apparent Distress, WD/WN Eyes: Bilateral Eye Normal Inspection, Bilateral Eye PERRL, Bilateral Eye EOMI Neck: Full Range of Motion, Normal Inspection Respiratory: No Accessory Muscle Use, No Respiratory Distress Gastrointestinal: No Pulsatile Mass, Non Tender, Soft Extremity: Normal Capillary Refill, Normal Inspection Neurologic/Psychiatric: Alert, Oriented x3 Skin: Normal Color, Warm/Dry Procedures/Interventions Date of ETT Placement: Oct 07, 2019 Time of ETT Placement: 0100 Progress/Results/Core Measures Suspected Sepsis SIRS Temperature: Pulse: 85 Respiratory Rate: 20 Laboratory Tests 05/11/21 14:59: White Blood Count 13.8H Blood Pressure 125 /68 Mean: 87 Laboratory Tests 05/11/21 14:59: Creatinine 1.18, Platelet Count 378, Total Bilirubin 0.6 Results/Orders Lab Results Laboratory Tests Test 05/11/21 14:54 05/11/21 14:59 Range/Units Influenza Type A (RT-PCR) Not Detected Not Detecte Influenza Type B (RT-PCR) Not Detected Not Detecte SARS-CoV-2 RNA (RT-PCR) Not Detected Not Detecte White Blood Count 13.8 H 4.3-11.0 10^3/uL Red Blood Count 3.06 L 3.80-5.11 10^6/uL Hemoglobin 8.5 L 11.5-16.0 g/dL Hematocrit 29 L 35-52 % Mean Corpuscular Volume 94 80-99 fL Mean Corpuscular Hemoglobin 28 25-34 pg Mean Corpuscular Hemoglobin Concent 30 L 32-36 g/dL Red Cell Distribution Width 19.4 H 10.0-14.5 % Platelet Count 378 130-400 10^3/uL Mean Platelet Volume 9.5 9.0-12.2 fL Immature Granulocyte % (Auto) 1 % Neutrophils (%) (Auto) 88 H 42-75 % Lymphocytes (%) (Auto) 5 L 12-44 % Monocytes (%) (Auto) 7 0-12 % Eosinophils (%) (Auto) 0 0-10 % Basophils (%) (Auto) 0 0-10 % Neutrophils # (Auto) 12.1 H 1.8-7.8 10^3/uL Lymphocytes # (Auto) 0.7 L 1.0-4.0 10^3/uL Monocytes # (Auto) 0.9 0.0-1.0 10^3/uL Eosinophils # (Auto) 0.0 0.0-0.3 10^3/uL Basophils # (Auto) 0.0 0.0-0.1 10^3/uL Immature Granulocyte # (Auto) 0.1 0.0-0.1 10^3/uL Neutrophils % (Manual) 86 % Lymphocytes % (Manual) 4 % Monocytes % (Manual) 3 % Eosinophils % (Manual) 1 % Basophils % (Manual) 0 % Band Neutrophils 6 % Polychromasia MODERATE Anisocytosis MODERATE D-Dimer 3.36 H 0.00-0.49 UG/ML Sodium Level 137 135-145 MMOL/L Potassium Level 4.1 3.6-5.0 MMOL/L Chloride Level 97 L 98-107 MMOL/L Carbon Dioxide Level 26 21-32 MMOL/L Anion Gap 14 5-14 MMOL/L Blood Urea Nitrogen 23 H 7-18 MG/DL Creatinine 1.18 0.60-1.30 MG/DL Estimat Glomerular Filtration Rate 47 BUN/Creatinine Ratio 19 Glucose Level 116 H 70-105 MG/DL Calcium Level 9.8 8.5-10.1 MG/DL Corrected Calcium 10.1 8.5-10.1 MG/DL Total Bilirubin 0.6 0.1-1.0 MG/DL Aspartate Amino Transf (AST/SGOT) 17 5-34 U/L Alanine Aminotransferase (ALT/SGPT) 14 0-55 U/L Alkaline Phosphatase 155 H 40-136 U/L B-Type Natriuretic Peptide 196.1 H <100.0 PG/ML Total Protein 7.0 6.4-8.2 GM/DL Albumin 3.6 3.2-4.5 GM/DL Procalcitonin 0.80 H <0.10 NG/ML My Orders Orders - SAL BONILLA APRN Covid 19 Inhouse Test (05/11/21 15:15) Cbc With Automated Diff (05/11/21 15:15) Procalcitonin (Pct) (05/11/21 15:15) Comprehensive Metabolic Panel (05/11/21 15:15) BNP (05/11/21 15:15) Fibrin Degradation Products (05/11/21 15:15) Influenza A And B By Pcr (05/11/21 15:15) Basic Metabolic Panel (05/11/21 15:15) Chest 1 View, Ap/Pa Only (05/11/21 15:15) Manual Differential (05/11/21 14:59) Ct Angio Chest W (05/11/21 16:05) Iohexol Injection (Omnipaque 350 Mg/Ml 1 (05/11/21 16:15) Received Contrast (Hold Metformin- Contr (05/11/21 16:15) Ns (Ivpb) (Sodium Chloride 0.9% Ivpb Bag (05/11/21 16:15) Ceftriaxone (Rocephin) (05/11/21 16:45) Apixaban Tablet (Eliquis Tablet) (05/11/21 17:15) Medications Given in ED Current Medications Medications Dose Ordered Sig/Chery Route Start Time Stop Time Status Last Admin Dose Admin Ceftriaxone Sodium 1000 mg/ Sterile Water 10 ml @ 200 mls/hr ONCE ONCE IV 05/11/21 16:45 05/11/21 16:47 DC 05/11/21 16:56 200 MLS/HR Iohexol 100 ml ONCE ONCE IV 05/11/21 16:15 05/11/21 16:16 DC 05/11/21 16:46 81 ML Sodium Chloride 100 ml ONCE ONCE IV 05/11/21 16:15 05/11/21 16:16 DC 05/11/21 16:46 80 ML Vital Signs/I&O 05/11/21 05/11/21 15:11 15:11 Temp 37.7 Pulse 85 Resp 20 B/P (MAP) 125/68 (87) Pulse Ox 97 O2 Delivery Nasal Cannula Room Air O2 Flow Rate 2.00 Capillary Refill : Less Than 3 Seconds Blood Pressure Mean: 87 Departure Impression Primary Impression: Pulmonary embolism Additional Impression: COVID-19 Disposition: ADMITTED INPATIENT Condition: Stable Departure-Patient Inst. Decision time for Depature: 17:07 Referrals: BROOKE JOYNER DO (PCP/Family) Primary Care Physician Patient Instructions: Pulmonary Embolism (Blood Clot in the Lungs) (DC), Going Home on Blood Thinners SAL BONILLA SENIOR TECHNICAL TRAINER May 11, 2021 16:47
--- NOTE | 2021-05-11 17:05 | Diagnostic Imaging Report ---
INDICATION: Covid positive. Elevated d-dimer. Shortness of air. EXAMINATION: CT angiogram of the chest, 05/11/2021. All CT scans use one or more of the following dose optimizing techniques: automated exposure control, MA and/or KvP adjustment based on patient size and exam type or iterative reconstruction. COMPARISON: 10/07/2019. FINDINGS: There are multiple peripheral emboli within the right lower lobe branches. Remaining vessels appear patent. No central pulmonary emboli appreciated. There is atherosclerotic disease along the course of the aorta which is otherwise grossly unremarkable. There is diffuse prominent infiltrate within the right upper lobe. There is a focal infiltrate at the left lung base with other scattered small infiltrates throughout all lobes. No effusion. No pericardial effusion. That is diffuse mediastinal and hilar adenopathy. Visualized upper abdomen demonstrates focal hypodensities within the liver, likely cysts. No acute abnormality appreciated. No acute osseous abnormality. IMPRESSION: 1. Pulmonary emboli throughout several of the right lower lobe peripheral branches. No central pulmonary embolus appreciated. 2. Diffuse bilateral five lobe pneumonia. Pertinent findings called to the ER by Dr. Avila at time of dictation, 05/11/2021 at 4:57 p.m. Findings discussed with Chaitanya Moreno APRN. Dictated by: Dictated on workstation # [id number]
[2021-05-11] MEDS ORDERED: APIXABAN 5 MG (ELIQUIS) TABLET PO SCH (17:15)
[2021-05-11] MEDS ORDERED: RIVAROXABAN 15 MG TABLET (XARELTO) PO ONE (18:30)
[2021-05-11] MEDS ORDERED: LACTATED RINGERS 1,000 ML IV SCH (19:00)
[2021-05-11] MEDS ORDERED: dexAMETHasone 6 MG TAB (DECADRON) PO SCH (19:00)
[2021-05-11] MEDS ORDERED: VANCOMYCIN INJECTION 1,500 MG in NS IV 500 ML 500 ML IV ONE (19:00)
[2021-05-12] VITALS (14 sets, daily range): BP systolic 118–148; BP diastolic 51–74
[2021-05-12] MEDS ORDERED: CATHETER FLUSH 10 ML SYR IV PRN (04:15)
[2021-05-12] MEDS ORDERED: ACETAMINOPHEN 325 MG TABLET PO PRN (04:15)
[2021-05-12] MEDS ORDERED: RT-ALBUTEROL/IPRATROPIUM 3 ML (DUONEB) VIAL INH PRN (04:30)
[2021-05-12] MEDS ORDERED: RT-ALBUTEROL HFA 8.5 GM INHALER IH PRN (04:45)
[2021-05-12] MEDS ORDERED: lisINopril 10 MG (PRINIVIL) TABLET PO PRN (06:15)
[2021-05-12] MEDS ORDERED: RT-ALBUTEROL SULF 2.5 MG/3 ML PRE-MIX VIAL INH PRN ×2 (06:15)
[2021-05-12] MEDS ORDERED: ALPRAZolam 0.25 MG (XANAX) TAB PO PRN (06:15)
[2021-05-12] MEDS: CATHETER FLUSH 10 ML SYR IV SCH ×2 (06:26→13:15)
[2021-05-12] MEDS: CEFEPIME 1,000 MG/SWFI 10 ML IV PUSH IV SCH ×6 (06:26→17:37)
[2021-05-12 06:38] LABS: BASOPHILS % (AUTO) 0 % (0-10); EOSINOPHILS % (AUTO) 0 % (0-10); HEMATOCRIT 30 % (35-52); HEMOGLOBIN 8.6 g/dL (11.5-16.0); LYMPHOCYTES # (AUTO) 0.5 10^3/uL (1.0-4.0); LYMPHOCYTES % (AUTO) 6 % (12-44); MEAN CORPUSCULAR HEMOGLOBIN 28 pg (25-34); MEAN CORPUSCULAR HGB CONC 29 g/dL (32-36); MEAN CORPUSCULAR VOLUME 96 fL (80-99); MEAN PLATELET VOLUME 9.2 fL (9.0-12.2); MONOCYTES # (AUTO) 0.2 10^3/uL (0.0-1.0); MONOCYTES % (AUTO) 2 % (0-12); NEUTROPHILS % (AUTO) 92 % (42-75); PLATELET COUNT 378 10^3/uL (130-400); WHITE BLOOD COUNT 8.7 10^3/uL (4.3-11.0)
[2021-05-12 06:46] LABS: ALBUMIN 3.2 GM/DL (3.2-4.5); POTASSIUM 4.4 MMOL/L (3.6-5.0)
[2021-05-12 06:47] LABS: CALCIUM 9.6 MG/DL (8.5-10.1)
[2021-05-12] MEDS: FUROSEMIDE 40 MG (LASIX) TAB PO SCH (06:47)
[2021-05-12 06:49] LABS: TOTAL PROTEIN 6.3 GM/DL (6.4-8.2)
[2021-05-12 06:51] LABS: BILIRUBIN,TOTAL 0.3 MG/DL (0.1-1.0)
[2021-05-12 06:52] LABS: CREATININE SERUM 0.87 MG/DL (0.60-1.30)
[2021-05-12] MEDS ORDERED: RT-ALBUTEROL/IPRATROPIUM 3 ML (DUONEB) VIAL INH SCH (07:00)
[2021-05-12] MEDS ORDERED: RIVAROXABAN 15 MG TABLET (XARELTO) PO SCH (07:00)
[2021-05-12] MEDS ORDERED: inSUlin ASPART (NovoLOG) 1 UNIT/0.01 ML (CHARGE PER UNIT) SC SCH (07:30)
[2021-05-12] MEDS: inSUlin ASPART (NovoLOG) 1 UNIT/0.01 ML (CHARGE PER UNIT) SC SCH ×4 (08:49→20:37)
[2021-05-12] MEDS ORDERED: RT-ALBUTEROL HFA 8.5 GM INHALER IH SCH (09:00)
[2021-05-12] MEDS ORDERED: RT-BUDESONIDE NEBS 0.5 MG/2ML (PULMICORT) AMP INH SCH (09:00)
[2021-05-12] MEDS ORDERED: NON-FORMULARY MEDICATION 1 EA EA (Budesonide/Glycopyr/Formoterol (Breztri Aerosphere Inhal INH SCH (09:00)
[2021-05-12] MEDS: VANCOMYCIN 750 MG/NS 250 ML IVPB IV SCH ×4 (09:32→20:35)
[2021-05-12] MEDS: dilTIAZem120 MG (CARDIZEM CD) CAP PO SCH (09:32)
[2021-05-12] MEDS: FLUoxetine HCL 10 MG (PROzac) CAPSULE/TABLET PO SCH (09:32)
[2021-05-12] MEDS: KCL 20 MEQ TAB (K-DUR) PO SCH (09:33)
[2021-05-12] MEDS: ASPIRIN 81 MG CHEW (CHILDREN'S ASA) PO SCH (09:33)
[2021-05-12] MEDS: meTOprolol TARTRATE 50 MG (LOPRESSOR) TAB PO SCH ×2 (09:33→20:35)
[2021-05-12] MEDS: GABAPENTIN 600 MG (NEURONTIN) TAB PO SCH ×3 (09:33→20:35)
[2021-05-12] MEDS: LORATADINE (CLARITIN) 10 MG TAB PO SCH (09:33)
[2021-05-12] MEDS: dexAMETHasone 6 MG TAB (DECADRON) PO SCH (09:33)
[2021-05-12] MEDS: ENOXAPARIN 80 MG/0.8 ML (LOVENOX) SYR SC SCH ×2 (09:34→20:35)
[2021-05-12] MEDS: TRIAMCINOLONE 0.1% CR (KENALOG) 15 GM TUBE TP SCH (09:34)
[2021-05-12] MEDS: NYSTATIN CREAM (MYCOSTATIN) 30 GM TUBE TP SCH (09:34)
--- NOTE | 2021-05-12 09:47 | Diagnostic Imaging Report ---
EXAMINATION: Portable erect AP chest at 8:27 AM INDICATION: Pneumonia The heart is stable in size when compared to the prior exam of 05/11/2021. The diffuse alveolar/interstitial infiltrate along the periphery of the right upper lung seen previously is somewhat denser on this exam. The other alveolar/interstitial infiltrates involving the lung bases are essentially no different. The mediastinum is not widened. The osseous structures are intact. IMPRESSION: The appearance of the chest has worsened somewhat since the prior exam as there does seem to be slightly greater involvement of the right upper lung by pneumonia/atelectasis. A follow-up exam would be recommended for continued study. Dictated by: Dictated on workstation # [id number]
[2021-05-12] MEDS: RT-ALBUTEROL HFA 8.5 GM INHALER IH SCH ×3 (10:32→21:34)
--- NOTE | 2021-05-12 12:18 | History & Physical-Hospitalist ---
History of Present Illness HPI/Chief Complaint Chief complaint: Shortness of breath and altered mental status History present illness: This is a 56-year-old white female who was just discharged from inpatient rehab facility on my service this past 05/06/2021, who has a past medical history of oxygen dependent COPD current smoker and alcoholism who improved with ambulation and independent ADLs and overall strength so she was discharged after a 10-day stay but apparently went home became more weak and short of breath and was exposed to COVID-19 pneumonia and her granddaughter. She presented to the ER was assessed to have pulmonary emboli even though she was taking Xarelto 20 mg daily but unsure if she was compliant with that medication. She had 5 lobe pneumonia infiltrates on CT scan highly suspicious for Covid but rapid test was negative so awaiting PCR. I assessed her today and she is of altered mental status will obtain ABG and transfer to the ICU. Chest x-ray appears to be worse. Patient is overall very debilitated. Source: RN/MD Exam Limitations: clinical condition Date Seen 05/12/21 Time Seen by a Provider: 12:45 Attending Physician Sallie Virk DO PCP García Hicks DO Referring Physician Date of Admission May 11, 2021 at 20:45 Home Medications & Allergies Home Medications Reviewed patient Home Medication Reconciliation performed by pharmacy medication reconciliations freezer laboratory technician and/or nursing. Patients Allergies have been reviewed. Allergies Allergies Coded Allergies No Known Drug Allergies (Unverified04/29/19) Past Sxwnmhb-Kvgfwm-Yepsxr Hx Patient Social History Marrital Status: single Employed/Student: unemployed Tobacco Use?: Yes Tobacco type used: Cigars Smoking Status: Current Everyday Smoker Smokeless Tobacco Frequency: Never a User Substance use?: No Alcohol Use?: No Pt feels they are or have been: No Immunizations Up To Date Date of Influenza Vaccine: Jul 11, 2020 First/Initial COVID19 Vaccinat: NO Second COVID19 Vaccination Reinier: NO Tetanus Booster (TDap): Unknown Hepatitis A: No Hepatitis B: No Seasonal Allergies Seasonal Allergies: Yes Current Status status: No status: No Advance Directives: No Advance Directive Location: Home Communicates: Does Not Communicate Primary Language: Niuean Preferred Spoken Language: Niuean Is interpretation needed?: No Sensory deficits: Vision impairment Implanted or Applied Medical D: None Past Medical History Surgeries: Hysterectomy Pneumonia, Chronic Bronchitis, COPD Atrial Fibrillation, Deep Vein Thrombosis, High Cholesterol, Hypertension Paralysis 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 Sexually Transmitted Disease: No HIV/AIDS: No Renal Failure, UTI-Chronic Gastroesophageal Reflux Bipolar, Depression Blood Disorders: No Adverse Reaction/Blood Tranf: No wound/ edema Family Medical History Cerebrovascular accident (CVA) 19 FATHER, Onset:60 years & older FH: testicular cancer G8 BROTHER, Onset:30's - 40 Hypertension 19 FATHER, Onset:Unknown 19 MOTHER, Onset:Unknown G8 BROTHER, Onset:Unknown G8 BROTHER, Onset:Unknown Myocardial infarction 19 FATHER, Onset:40's - 50 Heart Disease, Hypertension SOCIAL HISTORY: -ETOH --ABUSE/REGULAR USE -DRUGS--LONG HISTORY OF OPIATE ABUSE -SMOKES 2 PPD ADDITIONAL PMH: -12/14/2020-TRANSFERRED TO [facility] FOR SEPTIC SHOCK WITH ACUTE RENAL FAILURE DUE TO CELLULITIS OF LEGS. -02/03/21-TRANSFERRED TO [place] FOR SEPSIS WITH ACUTE RENAL FAILURE, ALSO DUE TO CELLULITIS OF LEGS. -ADMITTED AND INTUBATED X 1 MONTH IN SEPTEMBER 2019 FOR BILATERAL PNEUMONIA AND ARDS. HISTORY OF OPIATE ABUSE/ADDICTION--HAS BEEN ON SUBOXONE, BUT STATES SHE CANNOT AFFORD IT AND IS NO LONGER TAKING IT OF 03/11/21 Review of Systems Constitutional: see HPI, other (Unobtainable due to confusion) Physical Exam Physical Exam Vital Signs Vital Signs - First Documented 05/12/21 04:11 FiO2 28 Capillary Refill : Less Than 3 Seconds Height, Weight, BMI Height: 5'5.00" Weight: 218lbs. 0.0oz. 98.158230cs; 35.62 BMI Method:Stated General Appearance: Chronically ill, Other (Confused, lethargic) Respiratory: Accessory Muscle Use, Crackles, Decreased Breath Sounds, Wheezing Cardiovascular: Irregularly Irregular, Tachycardia Extremity: Normal Capillary Refill, No Calf Tenderness Neurologic/Psychiatric: Disoriented Results Results/Procedures Labs Laboratory Tests 05/11/21 14:59 05/12/21 06:27 Patient resulted labs reviewed. Assessment/Plan Admission Diagnosis Assessment: Altered mental status acute change from previous moving to ICU Bilateral multilobar opacities on CT scan suspicion for Covid with recent exposure rapid test was negative in ER will repeat test in place and PUI status Bacterial pneumonia placed on IV antibiotics New pulmonary emboli on CT scan failed Xarelto 20 mg daily placed on Lovenox Oxygen dependent end-stage COPD with current smoking status Chronic debility Chronic pain Alcoholism Paroxysmal atrial fibrillation Multiple falls Plan: Transfer to ICU IV antibiotics Oxygen Check ABG eICU consult Lovenox for PE Admission Status: Inpatient Order (span 2 midnights) Reason for Inpatient Admission: Respiratory failure Diagnosis/Problems Diagnosis/Problems (1) Altered mental status (2) Acute respiratory failure with hypoxemia Status: Acute (3) Pulmonary embolism Status: Acute (4) History of recent hospitalization Status: Acute (5) Physical debility Status: Acute SALLIE VIRK DO May 12, 2021 12:18
--- NOTE | 2021-05-12 13:51 | Diagnostic Imaging Report ---
PROCEDURE: CT head wo r/o stroke. TECHNIQUE: Multiple contiguous axial images were obtained through the brain without the use of intravenous contrast. Auto Exposure Controls were utilized during the CT exam to meet ALARA standards for radiation dose reduction. INDICATION: Altered mental status. COMPARISON: MRI brain without contrast 01/17/2020. FINDINGS: Moderate generalized parenchymal volume loss. Intracranial vascular calcifications. No intracranial hemorrhage, mass effect, hydrocephalus or extra-axial fluid collections. No CT evidence of a territorial infarction. Osseous structures are intact. Visualized paranasal sinuses and mastoids are clear. IMPRESSION: No acute intracranial CT findings. Dictated by: Dictated on workstation # [id number]
--- NOTE | 2021-05-12 14:59 | Tele-ICU Consult ---
Progress Note 56 y/o female recently discharged. Has hx of Oxygen dependent COPD Presents today with fever, MANDEL, malaise, fatigue and exposure to COVID patients. Has hx of a fib on xaralto 2mg/day CT ango chest shows PE and infiltrates D Dimer 3.36 COVID rapid test neg< PCR pending PLAN: started on decadron 6g /day inhalers and antibiotics, Lovenox given Await PCR Focused Exam Sepsis Stage: Sepsis Possible Source: Pulmonary Lactate Level 05/11/21 15:05: Lactic Acid Level 0.76 Height, Weight, BMI Height: 5'5.00" Weight: 218lbs. 0.0oz. 98.532391da; 35.62 BMI Method:Stated Respiratory: Decreased Breath Sounds, Respiratory Distress Cardiovascular: Regular Rate, Rhythm, No Edema, No Gallop, No JVD, No Murmur, Normal Peripheral Pulses, Bradycardia, Diastolic Murmur, Systolic Murmur, Extra Beats, Friction Rub, Gallop/S3, Gallop/S4, Irregularly Irregular, JVD, Tachycardia, Other Within 3hrs of presentation: Admin fluids, Admin 30ml/kg IBW due to BMI>30, Admin ABX, Blood cultures prior to ABX's, Lactate level YAYO OLIVARES MD May 12, 2021 14:59
[2021-05-12 15:22] LABS: ABG BASE EXCESS 6.3 MMOL/L (-2.5-2.5); ABG OXYGEN SATURATION 92 % (94-100); ABG PCO2 48 MMHG (35-45); ABG PH 7.42 (7.37-7.43); ABG PO2 64 MMHG (79-93); ABG TCO2 32.4 MMOL/L (21.0-31.0); ALLENS TEST YES-POS; INSPIRED O2 6L; PATIENT TEMP 97.5; VENTILATOR NO
[2021-05-13] VITALS (21 sets, daily range): BP systolic 88–134; BP diastolic 54–81
[2021-05-13] MEDS: NYSTATIN CREAM (MYCOSTATIN) 30 GM TUBE TP SCH ×3 (00:23→20:34)
[2021-05-13] MEDS: CEFEPIME 1,000 MG/SWFI 10 ML IV PUSH IV SCH ×8 (00:23→16:59)
[2021-05-13] MEDS: TRIAMCINOLONE 0.1% CR (KENALOG) 15 GM TUBE TP SCH ×3 (00:23→20:34)
[2021-05-13] MEDS: CATHETER FLUSH 10 ML SYR IV SCH ×3 (00:24→13:39)
[2021-05-13 03:37] LABS: BASOPHILS % (AUTO) 0 % (0-10); EOSINOPHILS % (AUTO) 0 % (0-10); HEMATOCRIT 30 % (35-52); HEMOGLOBIN 8.9 g/dL (11.5-16.0); LYMPHOCYTES # (AUTO) 0.6 10^3/uL (1.0-4.0); LYMPHOCYTES % (AUTO) 4 % (12-44); MEAN CORPUSCULAR HEMOGLOBIN 28 pg (25-34); MEAN CORPUSCULAR HGB CONC 29 g/dL (32-36); MEAN CORPUSCULAR VOLUME 96 fL (80-99); MEAN PLATELET VOLUME 9.5 fL (9.0-12.2); MONOCYTES # (AUTO) 0.7 10^3/uL (0.0-1.0); MONOCYTES % (AUTO) 5 % (0-12); NEUTROPHILS # (AUTO) 13.4 10^3/uL (1.8-7.8); NEUTROPHILS % (AUTO) 90 % (42-75); PLATELET COUNT 466 10^3/uL (130-400); WHITE BLOOD COUNT 14.9 10^3/uL (4.3-11.0)
[2021-05-13 03:49] LABS: ALBUMIN 3.3 GM/DL (3.2-4.5); POTASSIUM 3.9 MMOL/L (3.6-5.0)
[2021-05-13 03:50] LABS: CALCIUM 9.8 MG/DL (8.5-10.1)
[2021-05-13 03:51] LABS: TOTAL PROTEIN 6.7 GM/DL (6.4-8.2)
[2021-05-13 03:53] LABS: BILIRUBIN,TOTAL 0.2 MG/DL (0.1-1.0)
[2021-05-13 03:55] LABS: CREATININE SERUM 1.12 MG/DL (0.60-1.30)
[2021-05-13] MEDS: inSUlin ASPART (NovoLOG) 1 UNIT/0.01 ML (CHARGE PER UNIT) SC SCH ×4 (04:47→20:32)
[2021-05-13] MEDS: FUROSEMIDE 40 MG (LASIX) TAB PO SCH (06:46)
[2021-05-13] MEDS: RT-ALBUTEROL HFA 8.5 GM INHALER IH SCH ×4 (07:18→22:07)
--- NOTE | 2021-05-13 07:26 | Diagnostic Imaging Report ---
Clinical indications: Patient with pneumonia. Exam: Portable chest x-ray upright view. Comparisons: Chest x-ray dated 05/12/2021. Findings: There is slight improved aeration of the airspace infiltrates involving right midlung field and right upper lobe region. There is development of discoid atelectasis involving the right lung base and left lung base region. There is no pleural effusion or pneumothorax. Cardiac silhouette is upper limits of normal for portable projection. Pulmonary vasculature is within normal limits. The remainder of this exam shows no significant interval change compared to the prior study of comparison. Impression: 1: There is slight improved aeration of the right upper lobe and right midlung field infiltrates. 2: There is development of mild bibasilar atelectasis which is superimposed upon previous bibasilar atelectasis and/or infiltrates.. Dictated by: Dictated on workstation # [id number]
[2021-05-13] MEDS: FLUoxetine HCL 10 MG (PROzac) CAPSULE/TABLET PO SCH (08:40)
[2021-05-13] MEDS: dexAMETHasone 6 MG TAB (DECADRON) PO SCH (08:41)
[2021-05-13] MEDS: ENOXAPARIN 80 MG/0.8 ML (LOVENOX) SYR SC SCH ×2 (08:41→20:29)
[2021-05-13] MEDS: dilTIAZem120 MG (CARDIZEM CD) CAP PO SCH (08:41)
[2021-05-13] MEDS: ASPIRIN 81 MG CHEW (CHILDREN'S ASA) PO SCH (08:41)
[2021-05-13] MEDS: KCL 20 MEQ TAB (K-DUR) PO SCH (08:41)
[2021-05-13] MEDS: VANCOMYCIN 750 MG/NS 250 ML IVPB IV SCH ×2 (08:41)
[2021-05-13] MEDS: LORATADINE (CLARITIN) 10 MG TAB PO SCH (08:41)
[2021-05-13] MEDS: meTOprolol TARTRATE 50 MG (LOPRESSOR) TAB PO SCH ×2 (08:41→20:29)
[2021-05-13] MEDS: GABAPENTIN 600 MG (NEURONTIN) TAB PO SCH ×3 (08:41→20:29)
--- NOTE | 2021-05-13 13:06 | Progress Note - Hospitalist ---
JEAN-CLAUDE CROWDER 05/13/21 1306: Subjective HPI/CC On Admission Date Seen by Provider: May 13, 2021 Time Seen by Provider: 11:00 Chief complaint: Shortness of breath and altered mental status History present illness: This is a 56-year-old white female who was just discharged from inpatient rehab facility on my service this past 05/06/2021, who has a past medical history of oxygen dependent COPD current smoker and alcoholism who improved with ambulation and independent ADLs and overall strength so she was discharged after a 10-day stay but apparently went home became more weak and short of breath and was exposed to COVID-19 pneumonia and her granddaughter. She presented to the ER was assessed to have pulmonary emboli even though she was taking Xarelto 20 mg daily but unsure if she was compliant with that medication. She had 5 lobe pneumonia infiltrates on CT scan highly suspicious for Covid but rapid test was negative so awaiting PCR. I assessed her today and she is of altered mental status will obtain ABG and transfer to the ICU. Chest x-ray appears to be worse. Patient is overall very debilitated. Subjective/Events-last exam Patient seems oriented to time, place, and person but is having issues with memory. She has no other complaints other than bilateral foot pain. She reports normal bowel movements and ambulation. Head CT came out negative for hemorrhagic stroke. Awaiting COVID test results. Review of Systems General: No Chills, No Fatigue, No Appetite HEENT: No Head Aches, No Visual Changes Pulmonary: No Dyspnea; Cough Cardiovascular: No: Chest Pain, Palpitations, Edema Gastrointestinal: No: Nausea, Vomiting, Diarrhea Genitourinary: No Dysuria, No Incontinence, No Hematuria Musculoskeletal: foot pain (bilateral); No: arm pain, hand pain Neurological: Confusion (memory retention issues); No: Change in speech, Seizures Focused Exam Lactate Level 05/11/21 15:05: Lactic Acid Level 0.76 Objective Exam Vital Signs Vital Signs Date Time Temp Pulse Resp B/P (MAP) Pulse Ox O2 Delivery O2 Flow Rate FiO2 05/13/21 12:00 37.0 05/13/21 11:18 92 Nasal Cannula 6.00 05/13/21 11:00 71 15 127/78 (94) 05/12/21 04:11 28 Capillary Refill : Less Than 3 Seconds General Appearance: Moderate Distress HEENT: PERRL/EOMI Neck: Full Range of Motion, Normal Inspection, Non Tender Respiratory: Chest Non Tender; No Lungs Clear, No Normal Breath Sounds Cardiovascular: Regular Rate, Rhythm, No Murmur, Normal Peripheral Pulses Gastrointestinal: Non Tender, Soft Back: Normal Inspection, No Vertebral Tenderness Extremity: Normal Capillary Refill, Normal Inspection, Normal Range of Motion, Non Tender, No Calf Tenderness Neurologic/Psychiatric: Alert, Oriented x3 Skin: Normal Color, Warm/Dry Results/Procedures Lab Laboratory Tests 05/13/21 03:16 Patient resulted labs reviewed. Assessment/Plan Assessment and Plan Assess & Plan/Chief Complaint Assessment: Altered mental status acute change from previous moving to ICU Bilateral multilobar opacities on CT scan suspicion for Covid with recent exposure rapid test was negative in ER will repeat test in place and PUI status Bacterial pneumonia placed on IV antibiotics New pulmonary emboli on CT scan failed Xarelto 20 mg daily placed on Lovenox Oxygen dependent end-stage COPD with current smoking status Chronic debility Chronic pain Alcoholism Paroxysmal atrial fibrillation Multiple falls 05/12/21: Transfer to ICU IV antibiotics Oxygen Check ABG eICU consult Lovenox for PE 05/13/21: Continue current management Await COVID PCR test results and repeat as necessary SALLIE YANEZ DO 05/14/21 0630: Subjective Subjective/Events-last exam Pt doing a lot better Oriented x3 today Chronic leg pain PCR for Covid is pending Glucose is 230 Likely will be able to move to fourth floor Review of Systems General: Fatigue Objective Exam General Appearance: No Apparent Distress, Chronically ill Respiratory: No Accessory Muscle Use, No Respiratory Distress, Crackles, Dec reased Breath Sounds Cardiovascular: Regular Rate, Rhythm Assessment/Plan Assessment and Plan Assess & Plan/Chief Complaint Supportive care Moved to fourth floor Await PCR Covid Supervisory-Addendum Brief Verification & Attestation Participated in pt care: history, MDM, physical Personally performed: exam, history, MDM, supervision of care Care discussed with: Medical Student Procedures: n/a Results interpretation: Verified all documentation Verification and Attestation of Medical Student E/M Service A medical student performed and documented this service in my presence. I reviewed and verified all information documented by the medical student and made modifications to such information, when appropriate. I personally performed the physical exam and medical decision making. Sallie Yanez, May 14, 2021,06:28 JEAN-CLAUDE CROWDER May 13, 2021 13:06 SALLIE YANEZ DO May 14, 2021 06:30
[2021-05-13] MEDS: RT--FLUTICASONE/SALMETEROL 113-14 (AIRDUO RespiCLICK) IH SCH (22:55)
[2021-05-14] MEDS: CEFEPIME 1,000 MG/SWFI 10 ML IV PUSH IV SCH ×8 (00:09→17:10)
[2021-05-14] MEDS: CATHETER FLUSH 10 ML SYR IV SCH ×4 (00:09→20:20)
[2021-05-14 03:10] VITALS: BP 134/70
[2021-05-14] MEDS: inSUlin ASPART (NovoLOG) 1 UNIT/0.01 ML (CHARGE PER UNIT) SC SCH ×4 (05:35→20:57)
[2021-05-14] MEDS: FUROSEMIDE 40 MG (LASIX) TAB PO SCH (05:47)
[2021-05-14 05:59] LABS: BASOPHILS % (AUTO) 0 % (0-10); EOSINOPHILS % (AUTO) 0 % (0-10); HEMATOCRIT 29 % (35-52); HEMOGLOBIN 8.4 g/dL (11.5-16.0); LYMPHOCYTES # (AUTO) 0.8 10^3/uL (1.0-4.0); LYMPHOCYTES % (AUTO) 7 % (12-44); MEAN CORPUSCULAR HEMOGLOBIN 28 pg (25-34); MEAN CORPUSCULAR HGB CONC 29 g/dL (32-36); MEAN CORPUSCULAR VOLUME 97 fL (80-99); MEAN PLATELET VOLUME 9.8 fL (9.0-12.2); MONOCYTES # (AUTO) 0.6 10^3/uL (0.0-1.0); MONOCYTES % (AUTO) 5 % (0-12); NEUTROPHILS # (AUTO) 10.1 10^3/uL (1.8-7.8); NEUTROPHILS % (AUTO) 87 % (42-75); PLATELET COUNT 441 10^3/uL (130-400); WHITE BLOOD COUNT 11.6 10^3/uL (4.3-11.0)
[2021-05-14 06:20] LABS: ALBUMIN 3.2 GM/DL (3.2-4.5); POTASSIUM 4.3 MMOL/L (3.6-5.0)
[2021-05-14 06:21] LABS: CALCIUM 9.5 MG/DL (8.5-10.1)
[2021-05-14 06:23] LABS: TOTAL PROTEIN 6.3 GM/DL (6.4-8.2)
[2021-05-14 06:24] LABS: BILIRUBIN,TOTAL 0.2 MG/DL (0.1-1.0)
[2021-05-14 06:26] LABS: CREATININE SERUM 1.01 MG/DL (0.60-1.30)
[2021-05-14] MEDS: RT--FLUTICASONE/SALMETEROL 113-14 (AIRDUO RespiCLICK) IH SCH ×2 (07:11→19:16)
[2021-05-14] MEDS: RT-ALBUTEROL HFA 8.5 GM INHALER IH SCH ×4 (07:11→19:16)
[2021-05-14] MEDS: UMECLIDINIUM BROMIDE (INCRUSE ELLIPTA) 7'S IH SCH (07:12)
[2021-05-14 08:00] VITALS: BP 125/72
[2021-05-14] MEDS: GABAPENTIN 600 MG (NEURONTIN) TAB PO SCH ×3 (08:58→19:43)
[2021-05-14] MEDS: dexAMETHasone 6 MG TAB (DECADRON) PO SCH (08:58)
[2021-05-14] MEDS: LORATADINE (CLARITIN) 10 MG TAB PO SCH (08:58)
[2021-05-14] MEDS: ASPIRIN 81 MG CHEW (CHILDREN'S ASA) PO SCH (08:58)
[2021-05-14] MEDS: dilTIAZem120 MG (CARDIZEM CD) CAP PO SCH (08:58)
[2021-05-14] MEDS: ENOXAPARIN 80 MG/0.8 ML (LOVENOX) SYR SC SCH (08:58)
[2021-05-14] MEDS: KCL 20 MEQ TAB (K-DUR) PO SCH (08:58)
[2021-05-14] MEDS: FLUoxetine HCL 10 MG (PROzac) CAPSULE/TABLET PO SCH (08:58)
[2021-05-14] MEDS: NYSTATIN CREAM (MYCOSTATIN) 30 GM TUBE TP SCH ×2 (08:59→20:58)
[2021-05-14] MEDS: TRIAMCINOLONE 0.1% CR (KENALOG) 15 GM TUBE TP SCH ×2 (08:59→20:57)
[2021-05-14] MEDS: meTOprolol TARTRATE 50 MG (LOPRESSOR) TAB PO SCH ×2 (09:09→19:43)
--- NOTE | 2021-05-14 09:52 | Diagnostic Imaging Report ---
EXAMINATION: Portable erect AP chest at 8:55 AM INDICATION: Pneumonia The heart is stable in size when compared to the prior exam of 05/13/2021. The diffuse alveolar/interstitial infiltrate along the periphery of the right upper lung and right midlung seen previously is again evident and not significantly changed. However, there has been an increase in the atelectasis/infiltrate involving the right lung base. The left lower lobe atelectasis/infiltrate is essentially no different and the left upper lung remains clear. The mediastinum is not widened. The osseous structures are intact. IMPRESSION: The appearance of the chest has worsened since the prior exam as there is greater involvement of the right lung base by pneumonia/atelectasis. A follow-up study would be recommended for continued evaluation. Dictated by: Dictated on workstation # [id number]
--- NOTE | 2021-05-14 10:45 | Consultation-Cardiology ---
HPI-Cardiology Cardiology Consultation: Date of Consultation 05/14/21 Time Seen by a Provider: 10:40 Date of Admission 05-11-21 Attending Physician Sallie Yanez DO Admitting Physician García Hicks DO Consulting Physician Delphine Aggarwal MD HPI: Chief Complaint: Resp failure PE Ms. Medellin is a 56 yr old female admitted to ICU from the ED with increasing SOB. She reports she was recently in the hospital d/t her COPD and had been dismissed approx a week ago. She was found to have PE on CTA of chest this admission. She reports she has been compliant since her last hospital d ischarge, but feels she may have missed some doses prior to that. She reports she has had fever, chills, weakness. She denies any c/o CP. No c/o LE swelling at this time. No c/o syncope or near syncope. She reports he daughter, whom she lives with, tested positive for COVID, but she herself has testing negative. She reports her breathing is much better this morning. She reports frequent prod cough of thick sputum. Review of Systems-Cardiology Review of Systems Constitutional: chills, fever, malaise Eyes: No vision change Ears/Nose/Throat: No epistaxis, No recent hearing loss Respiratory: As described under HPI Cardiovascular: As described under HPI Gastrointestinal: No constipation, No diarrhea, No nausea, No vomiting Genitourinary: No dysuria, No hematuria Musculoskeletal: joint pain Skin: No rash on exposed areas, No ulcerations on exposed areas Psychiatric/Neurological: No anxiety, No depression, No seizure, No focal weakness, No syncope Hematologic: blood clots (h/o ) MDZ-Otfjvv-Tyorbi Hx Patient Social History Marrital Status: single Employed/Student: unemployed Smoking Status: Current Everyday Smoker 2nd Hand Smoke Exposure: Yes Have you traveled recently?: No Alcohol Use?: No Pt feels they are or have been: No Tobacco type used: Cigars Immunizations Up To Date Tetanus Booster (TDap): Unknown Date of Influenza Vaccine: Jul 11, 2020 Past Medical History PMH As described under Assessment. Family Medical History Family Medical History: Reproted h/o father had an PR, CVA and HTN. Mother with h/o HTN. Family History: Cerebrovascular accident (CVA) 19 FATHER, Onset:60 years & older FH: testicular cancer G8 BROTHER, Onset:30's - 40 Hypertension 19 FATHER, Onset:Unknown 19 MOTHER, Onset:Unknown G8 BROTHER, Onset:Unknown G8 BROTHER, Onset:Unknown Myocardial infarction 19 FATHER, Onset:40's - 50 Allergies and Home Medications Allergies Coded Allergies: No Known Drug Allergies (Unverified , 04/29/19) Home Medications ALPRAZolam 0.25 Mg Tab, 0.25 MG PO Q8H PRN for ANXIETY Prescribed by: SALLIE YANEZ on 05/06/21946 Last Action: Continued Albuterol Sulfate 1 Puff Puff, 2 PUFF INH Q4H PRN for SHORTNESS OF BREATH, (Reported) Last Action: Continued Albuterol Sulfate 1.25 Mg/3 Ml Vial.neb, 3 ML INH Q6H PRN for SHORTNESS OF BREATH, (Reported) Last Action: Continued Aspirin 81 Mg Tab.chew, 81 MG PO DAILY, (Reported) Last Action: Continued Budesonide 1 Mg/2 Ml Ampul.neb, 2 ML INH BID, (Reported) Last Action: Converted Budesonide/Glycopyr/Formoterol 10.7 Gm Hfa.aer.ad, 2 PUFF INH BID, (Reported) Last Action: Converted Diltiazem HCl 120 Mg Cap.er.24h, 120 MG PO DAILY, (Reported) Last Action: Continued Fluoxetine HCl 10 Mg Capsule, 10 MG PO DAILY, (Reported) Last Action: Continued Furosemide 80 Mg Tablet, 80 MG PO DAILY, (Reported) Last Action: Converted Gabapentin 600 Mg Tablet, 600 MG PO TID, (Reported) Last Action: Continued Lisinopril 10 Mg Tablet, 10 MG PO DAILY PRN for BLOOD PRESSURE, (Reported) Last Action: Continued Loratadine 10 Mg Tablet, 10 MG PO DAILY, (Reported) Last Action: Continued Metoprolol Tartrate 100 Mg Tablet, 50-100 MG PO BID, (Reported) DEPENDING ON REAL TIME READING PATIENT WILL TAKE BETWEEN TO 1 TABLET TWICE DAILY Last Action: Converted Nystatin 15 Gm Cream..g., 0 GM TP BID Prescribed by: SALLIE YANEZ on 05/06/21927 Last Action: Continued Oxycodone HCl 10 Mg Tablet, 10 MG PO Q4H PRN for PAIN-SEVERE (8-10) Prescribed by: SALLIE YANEZ on 05/06/21927 Last Action: Converted Potassium Chloride 20 Meq Tablet.er, 20 MEQ PO DAILY, (Reported) Last Action: Converted Triamcinolone Acet 15 Gm Cr, 0 GM TP BID Prescribed by: SALLIE YANEZ on 05/06/21927 Last Action: Continued Patient Home Medication List Home Medication List Reviewed: Yes Physical Exam-Cardiology Physical Exam Vital Signs/I&O 05/14/21 05/14/21 05/14/21 05/14/21 03:10 07:11 08:00 08:00 Temp 36.4 36.0 Pulse 58 71 Resp 20 20 B/P (MAP) 134/70 (91) 125/72 (89) Pulse Ox 95 92 90 O2 Delivery High Flow N/C Nasal Cannula High Flow N/C High Flow N/C O2 Flow Rate 6.00 6.00 6.00 6.00 05/14/21 05/14/21 05/14/21 11:38 12:00 14:21 Temp 36.5 Pulse 69 Resp 20 B/P (MAP) 134/61 (85) Pulse Ox 91 90 93 O2 Delivery Nasal Cannula High Flow N/C Nasal Cannula O2 Flow Rate 5.00 6.00 5.00 05/14/21 00:00 Intake Total 1907.5 ml Output Total 900 ml Balance 1007.5 ml Capillary Refill : Less Than 3 Seconds Constitutional: AAO x 3, well-developed, well-nourished HEENT: PERRL, hearing is well preserved, oral hygience is good Neck: No carotid bruit; carotid pulses are 2 + bilaterally Respiratory: No accessory muscle use, No respiratory distress; chest expansion is symmetric, chest is bilaterally symmetric, rhonchi (scattered; prolonged exp phase), other (diminished breathsounds throughout) Gastrointestinal: No tender; soft, round, audible bowel sounds Extremities: no lower extremity edema bilateral Neurologic/Psychiatric: grossly intact (moves all extremities) Skin: No rash on exposed areas, No ulcerations on exposed areas Data Review Labs Laboratory Tests 05/13/21 16:13: Glucometer 251H 05/13/21 20:17: Glucometer 313H 05/14/21 05:22: Glucometer 173H 05/14/21 05:36: White Blood Count 11.6H, Red Blood Count 2.99L, Hemoglobin 8.4L, Hematocrit 29L, Mean Corpuscular Volume 97, Mean Corpuscular Hemoglobin 28, Mean Corpuscular Hemoglobin Concent 29L, Red Cell Distribution Width 18.2H, Platelet Count 441H, Mean Platelet Volume 9.8, Immature Granulocyte % (Auto) 2, Neutrophils (%) (Auto) 87H, Lymphocytes (%) (Auto) 7L, Monocytes (%) (Auto) 5, Eosinophils (%) (Auto) 0, Basophils (%) (Auto) 0, Neutrophils # (Auto) 10.1H, Lymphocytes # (Auto) 0.8L, Monocytes # (Auto) 0.6, Eosinophils # (Auto) 0.0, Basophils # (Auto) 0.0, Immature Granulocyte # (Auto) 0.2H, Sodium Level 140, Potassium Level 4.3, Chloride Level 100, Carbon Dioxide Level 30, Anion Gap 10, Blood Urea Nitrogen 27H, Creatinine 1.01, Estimat Glomerular Filtration Rate 57, BUN/Creatinine Ratio 27, Glucose Level 173H, Calcium Level 9.5, Corrected Calcium 10.1, Total Bilirubin 0.2, Aspartate Amino Transf (AST/SGOT) 28, Alanine Aminotransferase (ALT/SGPT) 32, Alkaline Phosphatase 132, Total Protein 6.3L, Albumin 3.2 05/14/21 11:27: Glucometer 271H Microbiology 05/12/21 MRSA Screen - Final, Complete MRSA not isolated 05/11/21 Blood Culture - Preliminary, Resulted No growth Radiology NAME: ZEKE MEDELLIN [facility] REC#: [id number] PT STATUS: REG ER : 1965 PHYSICIAN: SAL MORENO APRN ADMIT DATE: 05/11/21/ER Signed Date of Exam:05/11/21 CT ANGIO CHEST W INDICATION: Covid positive. Elevated d-dimer. Shortness of air. EXAMINATION: CT angiogram of the chest, 05/11/2021. All CT scans use one or more of the following dose optimizing techniques: automated exposure control, MA and/or KvP adjustment based on patient size and exam type or iterative reconstruction. COMPARISON: 10/07/2019. FINDINGS: There are multiple peripheral emboli within the right lower lobe branches. Remaining vessels appear patent. No central pulmonary emboli appreciated. There is atherosclerotic disease along the course of the aorta which is otherwise grossly unremarkable. There is diffuse prominent infiltrate within the right upper lobe. There is a focal infiltrate at the left lung base with other scattered small infiltrates throughout all lobes. No effusion. No pericardial effusion. That is diffuse mediastinal and hilar adenopathy. Visualized upper abdomen demonstrates focal hypodensities within the liver, likely cysts. No acute abnormality appreciated. No acute osseous abnormality. IMPRESSION: 1. Pulmonary emboli throughout several of the right lower lobe peripheral branches. No central pulmonary embolus appreciated. 2. Diffuse bilateral five lobe pneumonia. Pertinent findings called to the ER by Dr. Avila at time of dictation, 05/11/2021 at 4:57 p.m. Findings discussed with Sal Moreno APRN. Dictated by: Dictated on workstation # [id number] Dict: 05/11/211651 Trans: 05/11/211913 PJE [id number] Interpreted by: ADRIANA AVILA MD Electronically signed by: ADRIANA AVILA MD 05/11/211913 ECG Impression ECG Initial ECG Rhythm: Normal Sinus A/P-Cardiology Assessment/Admission Diagnosis Acute resp failure (Multi-factorial) see below Pulmonary emboli throughout several of the right lower lobe peripheral branches. No central pulmonary embolus appreciated per CTA of 05-11-2021 - started on OAC with Eliquis (previously on Xarelto, but not compliant) Pneumonia - management per medical services Acute on chronic exacerbation of COPD Chronic diastolic CHF - clinically compensated Bilateral leg swelling - venous insufficiency - controlled PAF - first diagnosed on a hospitalization of Sep 2019 during hospitalization with acute respiratory failure and pneumonia - currently SR per telemetry of 05-14-21 - previoulsly on OAC with Xarelto (she believes during a recent hospitalization she had some missed doses) COPD - management per medical services Chest discomfort, - chronic, non-cardiac (based on card cath of 09/17/18). No chest discomfort currently - Card cath of 09/07/18: minimal CAD, LVEF 70-75%, elevated LVEDP Echo of 04-20-[address] Car: LVEF 60-65%. Grade 1 diastolic dysfunction. PASP 52 mmhg H/o hypertension H/o opiate addiction; clean for several years Chronic tobacco use - cessation advised Fam h/o early CAD Hyperlipidemia Carotid u/s on 01/05/19: no significant dz H/o L leg and R arm DVT in late 2017 / early 2018, treated with rivaroxaban Discussion and Recomendations Acute resp failure (multi-factorial, see above) Management of PE is per medical service - continue OAC with Eliquis Advise hematology consult d/t h/o previous DVT/PE in the past as well as new development of PE while on OAC with Xarelto Echocardiogram to eval structure and function Continue current medication regimen Monitor lab closely Further recs will be based on her hospital course We would like to thank Dr. Yanez for this consult DELROY TURNER May 14, 2021 10:45
[2021-05-14 12:00] VITALS: BP 134/61
--- NOTE | 2021-05-14 12:29 | Pulmonary Consultation ---
History of Present Illness History of Present Illness Date Seen by Provider: May 14, 2021 Time Seen by Provider: 12:24 Date of Admission This is a 56-year-old white female who was just discharged from inpatient rehab facility on my service this past 05/06/2021, who has a past medical history of oxygen dependent COPD current smoker and alcoholism. Apparently went home became more weak and short of breath and was exposed to COVID-19 pneumonia and her granddaughter. She presented to the ER was assessed to have pulmonary emboli even though she was taking Xarelto 20 mg daily but unsure if she was comp liant with that medication. She had 5 lobe pneumonia infiltrates on CT scan highly suspicious for Covid but rapid test was negative so awaiting PCR. Feels a bit better; still on 6l o2. Allergies and Home Medications Allergies Coded Allergies: No Known Drug Allergies (Unverified , 04/29/19) Home Medications ALPRAZolam 0.25 Mg Tab, 0.25 MG PO Q8H PRN for ANXIETY Prescribed by: TAL YANEZ on 05/06/21 0947 Albuterol Sulfate 1 Puff Puff, 2 PUFF INH Q4H PRN for SHORTNESS OF BREATH, (Reported) Albuterol Sulfate 1.25 Mg/3 Ml Vial.neb, 3 ML INH Q6H PRN for SHORTNESS OF BREATH, (Reported) Aspirin 81 Mg Tab.chew, 81 MG PO DAILY, (Reported) Budesonide 1 Mg/2 Ml Ampul.neb, 2 ML INH BID, (Reported) Budesonide/Glycopyr/Formoterol 10.7 Gm Hfa.aer.ad, 2 PUFF INH BID, (Reported) Diltiazem HCl 120 Mg Cap.er.24h, 120 MG PO DAILY, (Reported) Fluoxetine HCl 10 Mg Capsule, 10 MG PO DAILY, (Reported) Furosemide 80 Mg Tablet, 80 MG PO DAILY, (Reported) Gabapentin 600 Mg Tablet, 600 MG PO TID, (Reported) Lisinopril 10 Mg Tablet, 10 MG PO DAILY PRN for BLOOD PRESSURE, (Reported) Loratadine 10 Mg Tablet, 10 MG PO DAILY, (Reported) Metoprolol Tartrate 100 Mg Tablet, 50-100 MG PO BID, (Reported) DEPENDING ON REAL TIME READING PATIENT WILL TAKE BETWEEN TO 1 TABLET TWICE DAILY Nystatin 15 Gm Cream..g., 0 GM TP BID Prescribed by: TAL YANEZ on 05/06/21927 Oxycodone HCl 10 Mg Tablet, 10 MG PO Q4H PRN for PAIN-SEVERE (8-10) Prescribed by: TAL YANEZ on 05/06/21927 Potassium Chloride 20 Meq Tablet.er, 20 MEQ PO DAILY, (Reported) Triamcinolone Acet 15 Gm Cr, 0 GM TP BID Prescribed by: TAL YANEZ on 05/06/21927 Past Medical/Social/Family Hx Patient Social History Marrital Status: single Employed/Student: unemployed Tobacco Use?: Yes Tobacco type used: Cigars Smoking Status: Current Everyday Smoker Smokeless Tobacco Frequency: Never a User Substance use?: No Alcohol Use?: No Pt stated abuse/neglect: No Immunizations Up To Date Influenza Vaccine Up-to-Date: No; Not Current First/Initial COVID19 Vaccinat: NO Second COVID19 Vaccination Reinier: NO Tetanus Booster (TDap): Unknown Hepatitis A: No Hepatitis B: No TB Skin Test: None Current Status status: No status: No Advance Directives: No Advance Directive Location: Home Communicates: Does Not Communicate Primary Language: Luxembourger Preferred Spoken Language: Luxembourger Is interpretation needed?: No Sensory deficits: Vision impairment Implanted or Applied Medical D: None Past Medical History wound/ edema COPD on home o2 Family Medical History Family Hx: SOCIAL HISTORY: -ETOH --ABUSE/REGULAR USE -DRUGS--LONG HISTORY OF OPIATE ABUSE -SMOKES 2 PPD ADDITIONAL PMH: -12/14/2020-TRANSFERRED TO [facility] FOR SEPTIC SHOCK WITH ACUTE RENAL FAILURE DUE TO CELLULITIS OF LEGS. -02/03/21-TRANSFERRED TO [facility] FOR SEPSIS WITH ACUTE RENAL FAILURE, ALSO DUE TO CELLULITIS OF LEGS. -ADMITTED AND INTUBATED X 1 MONTH IN SEPTEMBER 2019 FOR BILATERAL PNEUMONIA AND ARDS. HISTORY OF OPIATE ABUSE/ADDICTION--HAS BEEN ON SUBOXONE, BUT STATES SHE CANNOT AFFORD IT AND IS NO LONGER TAKING IT OF 03/11/21 Review of Systems Constitutional: weakness Respiratory: short of breath Sepsis Event Evaluation Height, Weight, BMI Height: 5'5.00" Weight: 218lbs. 0.0oz. 98.629380qw; 35.62 BMI Method:Stated Exam Exam Patient acknowledged, consented, and participated in this virtual visit which was conducted using real time audio/video Vital Signs Date Time Temp Pulse Resp B/P (MAP) Pulse Ox O2 Delivery O2 Flow Rate FiO2 05/14/21 12:00 36.5 69 20 134/61 (85) 90 High Flow N/C 6.00 05/14/21 11:38 91 Nasal Cannula 5.00 05/14/21 08:00 High Flow N/C 6.00 05/14/21 08:00 36.0 71 20 125/72 (89) 90 High Flow N/C 6.00 05/14/21 07:11 92 Nasal Cannula 6.00 05/14/21 03:10 36.4 58 20 134/70 (91) 95 High Flow N/C 6.00 05/13/21 23:55 36.0 57 18 129/70 (89) 92 High Flow N/C 6.00 05/13/21 20:15 High Flow N/C 6.00 05/13/21 19:31 36.8 72 18 125/59 (81) 95 High Flow N/C 6.00 05/13/21 18:00 64 18 () 93 High Flow N/C 7.00 05/13/21 17:00 72 18 122/62 (82) 88 High Flow N/C 7.00 05/13/21 16:00 70 15 129/65 (86) 94 High Flow N/C 7.00 05/13/21 15:53 36.3 05/13/21 15:00 70 15 121/64 (83) 95 High Flow N/C 7.00 05/13/21 14:33 96 Nasal Cannula 6.00 05/13/21 14:00 79 13 119/61 (80) 94 High Flow N/C 7.00 05/13/21 13:00 79 34 120/64 (82) 87 High Flow N/C 7.00 05/13/21 13:00 75 I & O 05/14/21 06:59 Intake Total 2567.5 ml Output Total 1900 ml Balance 667.5 ml Height & Weight Height: 5'5.00" Weight: 218lbs. 0.0oz. 98.814098vl; 35.62 BMI Method:Stated General Appearance: No Apparent Distress, Chronically ill HEENT: PERRL/EOMI Neck: Full Range of Motion, Normal Inspection, Non Tender Respiratory: Chest Non Tender, No Accessory Muscle Use, No Respiratory D istress, Crackles, Decreased Breath Sounds Cardiovascular: Regular Rate, Rhythm Capillary Refill: Less Than 3 Seconds Extremity: Normal Capillary Refill, Normal Inspection, Normal Range of Motion, Non Tender, No Calf Tenderness, No Pedal Edema Neurologic/Psychiatric: Alert, Oriented x3 Skin: Normal Color, Warm/Dry Results Lab Laboratory Tests 05/13/21 03:16 05/14/21 05:36 Assessment/Plan Assessment/Plan COPD -on home o2 2l; 6 l in the hp -home copd regimen: incruse/ symbicort/ pulmicort neb bid/ duo nebs qid -advise follow up in the pulm clinic A1AT level/ serial ct/ smoking cessation Bilat pe recurrent vte/ xarelto -consider duplex oflower ext PNA worsening atelectasis; early mobilization/ IS/ abx for 5-7 days; dw patent answered all questions. thank you for involving me in her care ATUL RUIZ MD May 14, 2021 12:29
[2021-05-14] MEDS: APIXABAN 5 MG (ELIQUIS) TABLET PO SCH ×2 (12:35→19:43)
--- NOTE | 2021-05-14 12:40 | Occupational Therapy Eval ---
OT Evaluation-General/PLF Medical Diagnosis Admission Date May 11, 2021 at 20:45 Medical Diagnosis: RLL PE, PNA Onset Date: May 11, 2021 Therapy Diagnosis Therapy Diagnosis: decreased ADL status Height/Weight Height (Feet): 5 Height (Inches): 5.00 Weight (Pounds): 218 Weight (Ounces): 0.0 Precautions Precautions/Isolations: Contact Isolation, Droplet Isolation Referral Physician: Sully Referral Reason: Evaluation/Treatment Medical History Pertinent Medical History: Atrial Fib, Alcoholism, COPD, GERD, Heart Failure, HTN, Smoking Additional Medical History PNA, bronchitis, DVT, renal failure, depression, Bipolar Current History ED due to weakness and SOB. ED assessed to have PE. Discharged from ARU 05/06/21 Social History Home: Single Level Current Living Status: Children (daughter) Entry Into Home: Stairs With Railing Steps Into Home: 1 ADL-Prior Level of Function SCALE: Activities may be completed with or without assistive devices. 6-Lpdovrtcpk-gbjdphu completes the activity by him/herself with no assistance from a helper. 5-Set-up or Clean-up Assistance-helper sets up or cleans up; patient completes activity. [place] assists only prior to or following the activity. 4-Supervision or Touching Assistance-helper provides verbal cues and/or touching/steadying and/or contact guard assistance as patient completes activity. Assistance may be provided throughout the activity or intermittently. 3-Partial/Moderate Assistance-helper does LESS THAN HALF the effort. [place] lifts, holds or supports trunk or limbs, but provides less than half the effort. 2-Substantial/Maximal Assistance-helper does MORE THAN HALF the effort. [place] lifts or holds trunk or limbs and provides more than half the effort. 6-Bjeptbhbi-nattgl does ALL the effort. Patient does none of the effort to complete the activity. Or, the assistance of 2 or more helpers is required for the patient to complete the activity. If activity was not attempted, code reason: 7-Patient Refused. 9-Not Applicable-not attempted and the patient did not perform the activity before the current illness, exacerbation or injury. 10-Not Attempted due to Environmental Limitations-(lack of equipment, weather restraints, etc.). 88-Not Attempted due to Medical Conditions or Safety Concerns. ADL PLOF Comments Pt IND with ADLs and functional mobility at PLOF using cane Self Care: Independent Functional Cognition: Independent DME/Equipment: Bath Chair, Shower OT Current Status Subjective Pt laying in bed, agreeable to OT tx. Mental Status/Objective Patient Orientation: Person, Place, Time, Situation Attachments: Oxygen Current Hand Dominance: Left Upper Extremity ROM WFL Upper Extremity Coordination WFL Upper Extremity Strength grossly 3+/5 BUEs ADL-Treatment Eating (QC): 6 (Per pt report) Oral Hygiene (QC): 5 (per clincial judgement) On/Off Footwear (QC): 5 (set up with gripper socks.) Toileting Hygiene (QC): 6 (IND on/off BSC) Other Treatments Pt informed OT about current history, and why she has returned to the hospital (Pt recently discharged from ARU 05/06/21). Pt transferred supine to sit EOB independently, then transferred to BSC with SBA. Pt completed toileting, then transferred to recliner. OT provided pt with heated blanket per request and assisted with positioning to comfort. OT notified nursing staff pt OK to get to from BSC independently. OT encouraged pt to complete UE exercises, she verbalized understanding. Post tx, pt seated upright in recliner, call light in reach and all needs met. Education OT Patient Education: Correct positioning, Modified ADL techniques, Progress toward Goal/Update tx plan, Purpose of tx/functional activities, Rehab process Teaching Recipient: Patient Teaching Methods: Discussion Response to Teaching: Verbalize Understanding OT Skilled Nursing Goals Skilled Nursing Goals Time Frame: May 24, 2021 Eating (QC): 6 Oral Hygiene (QC): 6 Toileting Hygiene (QC): 6 Shower/Bathe Self (QC): 6 Upper Body Dressing (QC): 6 Lower Body Dressing (QC): 6 On/Off Footwear (QC): 6 Additional Goals: 1-Demonstrate ADL Tasks, 2-Verbalize Understanding, 3- ImproveStrength/Lyn 1=Demonstrate adherence to instructed precautions during ADL tasks. 2=Patient will verbalize/demonstrate understanding of assistive devices/modifications for ADL. 3=Patient will improve strength/tolerance for activity to enable patient to perform ADL's. OT Education/Plan Problem List/Assessment Assessment: Decreased Activ Tolerance, Decreased UE Strength, Impaired I ADL's, Impaired Self-Care Skills Discharge Recommendations Plan/Recommendations: Continue POC Treatment Plan/Plan of Care Patient would benefit from OT for education, treatment and training to promote independence in ADL's, mobility, safety and/or upper extremity function for ADL's. Plan of Care: ADL Retraining, Functional Mobility, UE Funct Exercise/Act Treatment Duration: May 24, 2021 Frequency: 5 times per week Estimated Hrs Per Day: .25 hour per day Time/GCodes Start Time: 11:30 Stop Time: 11:53 Total Time Billed (hr/min): 23 Billed Treatment Time 1, EVL (10'), ADL (13') REECE ROSA OT May 14, 2021 12:40
--- NOTE | 2021-05-14 12:56 | Progress Note - Hospitalist ---
JEAN-CLAUDE CROWDER 05/14/21 1256: Subjective HPI/CC On Admission Date Seen by Provider: May 14, 2021 Time Seen by Provider: 11:00 Chief complaint: Shortness of breath and altered mental status History present illness: This is a 56-year-old white female who was just discharged from inpatient rehab facility on my service this past 05/06/2021, who has a past medical history of oxygen dependent COPD current smoker and alcoholism who improved with ambulation and independent ADLs and overall strength so she was discharged after a 10-day stay but apparently went home became more weak and short of breath and was exposed to COVID-19 pneumonia and her granddaughter. She presented to the ER was assessed to have pulmonary emboli even though she was taking Xarelto 20 mg daily but unsure if she was compliant with that medication. She had 5 lobe pneumonia infiltrates on CT scan highly suspicious for Covid but rapid test was negative so awaiting PCR. I assessed her today and she is of altered mental status will obtain ABG and transfer to the ICU. Chest x-ray appears to be worse. Patient is overall very debilitated. Subjective/Events-last exam Pt condition seemed to improve quite a bit since yesterday. Lungs sound much clearer and cough significantly reduced. Still chronic foot pain. Last bowel movement 2 days ago. COVID PCR test resulted negative. Soon to see Dr. Aggarwal on 05/17 for cardiology follow up on her past heart failure. Review of Systems General: No Chills, No Fatigue, No Appetite HEENT: No Head Aches, No Visual Changes, No Sore Throat Pulmonary: No Dyspnea; Cough Cardiovascular: No: Chest Pain, Palpitations, Edema Gastrointestinal: No: Nausea, Vomiting, Diarrhea Genitourinary: No Dysuria, No Incontinence, No Hematuria Musculoskeletal: No: neck pain, shoulder pain, arm pain Neurological: Other (memory seems to be improving, states it waxes and wanes); No: Weakness, Numbness Focused Exam Lactate Level 05/11/21 15:05: Lactic Acid Level 0.76 Objective Exam Vital Signs Vital Signs Date Time Temp Pulse Resp B/P (MAP) Pulse Ox O2 Delivery O2 Flow Rate FiO2 05/14/21 12:00 36.5 69 20 134/61 (85) 90 High Flow N/C 6.00 05/12/21 04:11 28 Capillary Refill : Less Than 3 Seconds General Appearance: Mild Distress HEENT: PERRL/EOMI Neck: Non Tender, Supple Respiratory: Chest Non Tender, Normal Breath Sounds Cardiovascular: Regular Rate, Rhythm, No Murmur Gastrointestinal: Non Tender, Soft Extremity: Normal Capillary Refill, Normal Inspection, Non Tender, No Calf Tenderness Neurologic/Psychiatric: Alert, Oriented x3 Skin: Normal Color, Warm/Dry Results/Procedures Lab Laboratory Tests 05/14/21 05:36 Patient resulted labs reviewed. Assessment/Plan Assessment and Plan Assess & Plan/Chief Complaint Assessment: Altered mental status acute change from previous moving to ICU Bilateral multilobar opacities on CT scan suspicion for Covid with recent exposure rapid test was negative in ER will repeat test in place and PUI status Bacterial pneumonia placed on IV antibiotics New pulmonary emboli on CT scan failed Xarelto 20 mg daily placed on Lovenox Oxygen dependent end-stage COPD with current smoking status Chronic debility Chronic pain Alcoholism Paroxysmal atrial fibrillation Multiple falls 05/12/21: Transfer to ICU IV antibiotics Oxygen Check ABG eICU consult Lovenox for PE 05/13/21: Continue current management Await COVID PCR test results and repeat as necessary 05/14/2021: Supportive care Anticoag Eliquis COVID PCR Test came out negative Place on Regular Diet SALLIE VIRK DO 05/15/21 0547: Subjective Subjective/Events-last exam Pt doing a lot better PT and OT will be ordered Regular diet will be ordered Lovenox will be discontinued and Eliquis will be started [address] Aggarwal consulted for AFIB Bowels moved two days ago Chronic pain issues May need a senior care Review of Systems Pulmonary: Cough Objective Exam General Appearance: No Apparent Distress, WD/WN, Chronically ill Respiratory: No Accessory Muscle Use, No Respiratory Distress, Decreased Breath Sounds Cardiovascular: Regular Rate, Rhythm Neurologic/Psychiatric: Alert, Oriented x3 Assessment/Plan Assessment and Plan Assess & Plan/Chief Complaint 05/14/2021: Isolation discontinuation IV antibiotics Steroids Supervisory-Addendum Brief Verification & Attestation Participated in pt care: history, MDM, physical Personally performed: exam, history, MDM, supervision of care Care discussed with: Medical Student Procedures: n/a Results interpretation: Verified all documentation Verification and Attestation of Medical Student E/M Service A medical student performed and documented this service in my presence. I reviewed and verified all information documented by the medical student and made modifications to such information, when appropriate. I personally performed the physical exam and medical decision making. Sallie Virk, May 15, 2021,05:46 JEAN-CLAUDE CROWDER May 14, 2021 12:56 SALLIE VIRK DO May 15, 2021 05:47
--- NOTE | 2021-05-14 14:00 | Consultation-Cardiology ---
HPI-Cardiology Cardiology Consultation: Date of Consultation 05/14/21 Time Seen by a Provider: 13:20 Date of Admission Attending Physician Sallie Yanez DO Admitting Physician García Hicks DO Consulting Physician JESS CONLEY MD, MA, FACP, FACC, [facility] HPI: Chief Complaint: Resp failure PE Ms. Hicks is a 56 yr old female admitted to ICU from the ED with increasing SOB. She reports she was recently in the hospital d/t her COPD and had been dismissed approx a week ago. She was found to have PE on CTA of chest this admission. She reports she has been compliant since her last hospital discharge, but feels she may have missed some doses prior to that. She reports she has had fever, chills, weakness. She denies any c/o CP. No c/o LE swelling at this time. No c/o syncope or near syncope. She reports he daughter, whom robert wright lives with, tested positive for COVID, but she herself has testing negative. She reports her breathing is much better this morning. She reports frequent prod cough of thick sputum. Review of Systems-Cardiology Review of Systems Constitutional: chills, fever, malaise Eyes: No vision change Ears/Nose/Throat: No epistaxis, No recent hearing loss Respiratory: As described under HPI Cardiovascular: As described under HPI Gastrointestinal: No constipation, No diarrhea, No nausea, No vomiting Genitourinary: No dysuria, No hematuria Musculoskeletal: joint pain Skin: No rash on exposed areas, No ulcerations on exposed areas Psychiatric/Neurological: No anxiety, No depression, No seizure, No focal weakness, No syncope Hematologic: blood clots (h/o ) LXP-Auwgev-Jwxyix Hx Patient Social History Marrital Status: single Employed/Student: unemployed Smoking Status: Current Everyday Smoker 2nd Hand Smoke Exposure: Yes Have you traveled recently?: No Alcohol Use?: No Pt feels they are or have been: No Tobacco type used: Cigars Immunizations Up To Date Tetanus Booster (TDap): Unknown Date of Influenza Vaccine: Jul 11, 2020 Past Medical History PMH As described under Assessment. Family Medical History Family Medical History: Reproted h/o father had an HI, CVA and HTN. Mother with h/o HTN. Family History: Cerebrovascular accident (CVA) 19 FATHER, Onset:60 years & older FH: testicular cancer G8 BROTHER, Onset:30's - 40 Hypertension 19 FATHER, Onset:Unknown 19 MOTHER, Onset:Unknown G8 BROTHER, Onset:Unknown G8 BROTHER, Onset:Unknown Myocardial infarction 19 FATHER, Onset:40's - 50 Allergies and Home Medications Allergies Coded Allergies: No Known Drug Allergies (Unverified , 04/29/19) Home Medications ALPRAZolam 0.25 Mg Tab, 0.25 MG PO Q8H PRN for ANXIETY Prescribed by: SALLIE YANEZ on 05/06/21946 Last Action: Continued Albuterol Sulfate 1 Puff Puff, 2 PUFF INH Q4H PRN for SHORTNESS OF BREATH, (Reported) Last Action: Continued Albuterol Sulfate 1.25 Mg/3 Ml Vial.neb, 3 ML INH Q6H PRN for SHORTNESS OF BREATH, (Reported) Last Action: Continued Aspirin 81 Mg Tab.chew, 81 MG PO DAILY, (Reported) Last Action: Continued Budesonide 1 Mg/2 Ml Ampul.neb, 2 ML INH BID, (Reported) Last Action: Converted Budesonide/Glycopyr/Formoterol 10.7 Gm Hfa.aer.ad, 2 PUFF INH BID, (Reported) Last Action: Converted Diltiazem HCl 120 Mg Cap.er.24h, 120 MG PO DAILY, (Reported) Last Action: Continued Fluoxetine HCl 10 Mg Capsule, 10 MG PO DAILY, (Reported) Last Action: Continued Furosemide 80 Mg Tablet, 80 MG PO DAILY, (Reported) Last Action: Converted Gabapentin 600 Mg Tablet, 600 MG PO TID, (Reported) Last Action: Continued Lisinopril 10 Mg Tablet, 10 MG PO DAILY PRN for BLOOD PRESSURE, (Reported) Last Action: Continued Loratadine 10 Mg Tablet, 10 MG PO DAILY, (Reported) Last Action: Continued Metoprolol Tartrate 100 Mg Tablet, 50-100 MG PO BID, (Reported) DEPENDING ON REAL TIME READING PATIENT WILL TAKE BETWEEN TO 1 TABLET TWICE DAILY Last Action: Converted Nystatin 15 Gm Cream..g., 0 GM TP BID Prescribed by: SALLIE YANEZ on 05/06/21927 Last Action: Continued Oxycodone HCl 10 Mg Tablet, 10 MG PO Q4H PRN for PAIN-SEVERE (8-10) Prescribed by: SALLIE YANEZ on 05/06/21927 Last Action: Converted Potassium Chloride 20 Meq Tablet.er, 20 MEQ PO DAILY, (Reported) Last Action: Converted Triamcinolone Acet 15 Gm Cr, 0 GM TP BID Prescribed by: SALLIE YANEZ on 05/06/21927 Last Action: Continued Patient Home Medication List Home Medication List Reviewed: Yes Physical Exam-Cardiology Physical Exam Vital Signs/I&O 05/14/21 05/14/21 05/14/21 05/14/21 03:10 07:11 08:00 08:00 Temp 36.4 36.0 Pulse 58 71 Resp 20 20 B/P (MAP) 134/70 (91) 125/72 (89) Pulse Ox 95 92 90 O2 Delivery High Flow N/C Nasal Cannula High Flow N/C High Flow N/C O2 Flow Rate 6.00 6.00 6.00 6.00 05/14/21 05/14/21 11:38 12:00 Temp 36.5 Pulse 69 Resp 20 B/P (MAP) 134/61 (85) Pulse Ox 91 90 O2 Delivery Nasal Cannula High Flow N/C O2 Flow Rate 5.00 6.00 05/14/21 00:00 Intake Total 1907.5 ml Output Total 900 ml Balance 1007.5 ml Capillary Refill : Less Than 3 Seconds Constitutional: AAO x 3, well-developed, well-nourished HEENT: PERRL, hearing is well preserved, oral hygience is good Neck: No carotid bruit; carotid pulses are 2 + bilaterally Respiratory: No accessory muscle use, No respiratory distress; chest expansion is symmetric, chest is bilaterally symmetric, rhonchi (scattered; prolonged exp phase), other (diminished breathsounds throughout) Gastrointestinal: No tender; soft, round, audible bowel sounds Extremities: no lower extremity edema bilateral Neurologic/Psychiatric: grossly intact (moves all extremities) Skin: No rash on exposed areas, No ulcerations on exposed areas Data Review Labs Laboratory Tests 05/13/21 16:13: Glucometer 251H 05/13/21 20:17: Glucometer 313H 05/14/21 05:22: Glucometer 173H 05/14/21 05:36: White Blood Count 11.6H, Red Blood Count 2.99L, Hemoglobin 8.4L, Hematocrit 29L, Mean Corpuscular Volume 97, Mean Corpuscular Hemoglobin 28, Mean Corpuscular Hemoglobin Concent 29L, Red Cell Distribution Width 18.2H, Platelet Count 441H, Mean Platelet Volume 9.8, Immature Granulocyte % (Auto) 2, Neutrophils (%) (Auto) 87H, Lymphocytes (%) (Auto) 7L, Monocytes (%) (Auto) 5, Eosinophils (%) (Auto) 0, Basophils (%) (Auto) 0, Neutrophils # (Auto) 10.1H, Lymphocytes # (Auto) 0.8L, Monocytes # (Auto) 0.6, Eosinophils # (Auto) 0.0, Basophils # (Auto) 0.0, Immature Granulocyte # (Auto) 0.2H, Sodium Level 140, Potassium Level 4.3, Chloride Level 100, Carbon Dioxide Level 30, Anion Gap 10, Blood Urea Nitrogen 27H, Creatinine 1.01, Estimat Glomerular Filtration Rate 57, BUN/Creatinine Ratio 27, Glucose Level 173H, Calcium Level 9.5, Corrected Calcium 10.1, Total Bilirubin 0.2, Aspartate Amino Transf (AST/SGOT) 28, Alanine Aminotransferase (ALT/SGPT) 32, Alkaline Phosphatase 132, Total Protein 6.3L, Albumin 3.2 05/14/21 11:27: Glucometer 271H Microbiology 05/12/21 MRSA Screen - Final, Complete MRSA not isolated 05/11/21 Blood Culture - Preliminary, Resulted No growth A/P-Cardiology Assessment/Admission Diagnosis Acute resp failure (Multi-factorial) see below Pulmonary emboli throughout several of the right lower lobe peripheral branches. No central pulmonary embolus appreciated per CTA of 05-11-2021 - started on OAC with Eliquis (previously on Xarelto, but not compliant) Pneumonia - management per medical services Acute on chronic exacerbation of COPD Chronic diastolic CHF - clinically compensated Bilateral leg swelling - venous insufficiency - controlled PAF - first diagnosed on a hospitalization of Sep 2019 during hospitalization with acute respiratory failure and pneumonia - currently SR per telemetry of 05-14-21 - previoulsly on OAC with Xarelto (she believes during a recent hospitalization she had some missed doses) COPD - management per medical services Chest discomfort, - chronic, non-cardiac (based on card cath of 09/17/18). No chest discomfort currently - Card cath of 09/07/18: minimal CAD, LVEF 70-75%, elevated LVEDP Echo of 7-17-[address] Car: LVEF 60-65%. Grade 1 diastolic dysfunction. PASP 52 mmhg H/o hypertension H/o opiate addiction; clean for several years Chronic tobacco use - cessation advised Fam h/o early CAD Hyperlipidemia Carotid u/s on 01/05/19: no significant dz H/o L leg and R arm DVT in late 2017 / early 2018, treated with rivaroxaban Discussion and Recomendations Acute resp failure (multi-factorial, see above) Management of PE is per medical service - continue OAC with Eliquis Advise hematology consult d/t h/o previous DVT/PE in the past as well as new development of PE while on OAC with Xarelto Echocardiogram to eval structure and function Continue current medication regimen Monitor lab closely Further recs will be based on her hospital course We would like to thank Dr. Yanez for this consult JESS CONLEY MD FACP FAC CCDS May 14, 2021 14:00
--- NOTE | 2021-05-14 14:32 | Physical Therapy Evaluation ---
PT Evaluation-General Medical Diagnosis Admission Date May 11, 2021 at 20:45 Medical Diagnosis: RLL PE, PNA Onset Date: May 11, 2021 Therapy Diagnosis Therapy Diagnosis: debility/weakness Height/Weight Height (Feet): 5 Height (Inches): 5.00 Weight (Pounds): 218 Weight (Ounces): 0.0 Precautions Precautions/Isolations: Standard Precautions Referral Physician: Sully Reason for Referral: Evaluation/Treatment Medical History Pertinent Medical History: Atrial Fib, Alcoholism, COPD, GERD, Heart Failure, HTN, Smoking Current History ER secondary to cough, fever, MANDEL Reviewed History: Yes Social History Home: Single Level Current Living Status: Children (daughter) Entry Into Home: Stairs With Railing PT Steps Into Home: 1 Prior Prior Level of Function SCALE: Activities may be completed with or without assistive devices. 9-Jyqssxarxl-puxmkbq completes the activity by him/herself with no assistance from a helper. 5-Set-up or Clean-up Assistance-helper sets up or cleans up; patient completes activity. [place] assists only prior to or following the activity. 4-Supervision or Touching Assistance-helper provides verbal cues and/or touching/steadying and/or contact guard assistance as patient completes activity. Assistance may be provided throughout the activity or intermittently. 3-Partial/Moderate Assistance-helper does LESS THAN HALF the effort. [place] lifts, holds or supports trunk or limbs, but provides less than half the effort. 2-Substantial/Maximal Assistance-helper does MORE THAN HALF the effort. [place] lifts or holds trunk or limbs and provides more than half the effort. 6-Gekaxccqo-rdpmmt does ALL the effort. Patient does none of the effort to complete the activity. Or, the assistance of 2 or more helpers is required for the patient to complete the activity. If activity was not attempted, code reason: 7-Patient Refused. 9-Not Applicable-not attempted and the patient did not perform the activity before the current illness, exacerbation or injury. 10-Not Attempted due to Environmental Limitations-(lack of equipment, weather restraints, etc.). 88-Not Attempted due to Medical Conditions or Safety Concerns. Bed Mobility: 6 Transfers (B,C,W/C): 6 Gait: 6 Stairs: 6 Indoor Mobility (Ambulation): Independent Stairs: Independent Prior Devices Use: Other-see list below Prior Device Use: cane PT Evaluation-Current Subjective Patient reports she is feeling much better. Agrees to PT. Objective Patient Orientation: Normal For Age Attachments: Oxygen ROM/Strength ROM Lower Extremities bilateral LE WFL Strength Lower Extremities 4-/5 grossly bilateral LE Integumentary/Posture Bowel Incontinence: No Bladder Incontinence: No Posture WFL Neuromuscular (Tone, Coordination, Reflexes) grossly intact Sensory Vision: Functional Hearing: Functional Hand Dominance: Left Transfers Roll Left to Right (QC): 6 Sit to Lying (QC): 6 Lying to Sitting/Side of Bed(Q: 6 Sit to Stand (QC): 6 Chair/Trr-xq-Gbfva Xfer(QC): 6 Gait Does the Patient Walk?: Yes Mode of Locomotion: Walk Anticipated Mode of Locomotion: Walk Walk 10 feet (QC): 6 Walk 50 ft with 2 Turns(QC): 6 Walk 150 ft (QC): 6 Gait Assistive Device: Cane Single Point Comments/Gait Description slow, steady, safe and functional Balance Sitting Static: Normal Sitting Dynamic: Normal Standing Static: Normal Standing Dynamic: Normal Picking up an Object (QC): 6 Treatment issued red theraband for exercise Assessment/Needs Recent dismissal from [facility] with HEP issued upon dismissal. Reviewed exercises with patient performing independently. PT will see patient x 1 more session. Rehab Potential: Fair PT Short Term Goals Short Term Goals Time Frame: May 15, 2021 Roll Left & Right: 6 Sit to lyin Lying to sitting on side of be: 6 Sit to stand: 6 Chair/ytp-mb-ylvsu transfer: 6 Toilet transfer: 6 Walk 10 feet: 6 Walk 50 feet with two turns: 6 Walk 150 feet: 6 PT Plan Problem List Problem List: Activity Tolerance Treatment/Plan Treatment Plan: Continue Plan of Care Treatment Plan: Education, Functional Activity Lyn, Functional Strength, Gait, Safety, Therapeutic Exercise Treatment Duration: May 15, 2021 Frequency: 2 times per week Estimated Hrs Per Day: .25 hour per day Patient and/or Family Agrees t: Yes Discharge Recommendations Therapy Discharge Recommendati: Home & Family Time/GCodes Time In: 1402 Time Out: 1421 Total Billed Treatment Time: 19 Total Billed Treatment 1 visit EVModC 19 min MERVIN PETERSON PT May 14, 2021 14:32
--- NOTE | 2021-05-14 14:48 | Diagnostic Imaging Report ---
PROCEDURE: US Venous Lower Ext Elvis. TECHNIQUE: Multiple real-time grayscale images were obtained over the lower extremities in various projections, bilaterally. Additional duplex Doppler and color Doppler images were also obtained. INDICATION: Bilateral lower extremity pain. There is no evidence of right or left lower extremity DVT. Both lower extremity deep venous systems demonstrate normal compressibility with normal response to augmentation and Valsalva. No fluid collection or mass is detected. IMPRESSION: No evidence of right or left lower extremity DVT. Dictated by: Dictated on workstation # [id number]
[2021-05-14 16:08] VITALS: BP 105/63
[2021-05-14 19:43] VITALS: BP 123/58
[2021-05-15] VITALS (7 sets, daily range): BP systolic 120–160; BP diastolic 64–73
[2021-05-15] MEDS: CEFEPIME 1,000 MG/SWFI 10 ML IV PUSH IV SCH ×10 (00:28→23:50)
[2021-05-15] MEDS: FUROSEMIDE 40 MG (LASIX) TAB PO SCH (06:03)
[2021-05-15] MEDS: CATHETER FLUSH 10 ML SYR IV SCH ×3 (06:03→21:50)
[2021-05-15 06:39] LABS: BASOPHILS # (AUTO) 0.1 10^3/uL (0.0-0.1); BASOPHILS % (AUTO) 0 % (0-10); EOSINOPHILS % (AUTO) 0 % (0-10); HEMATOCRIT 32 % (35-52); HEMOGLOBIN 9.4 g/dL (11.5-16.0); LYMPHOCYTES # (AUTO) 1.1 10^3/uL (1.0-4.0); LYMPHOCYTES % (AUTO) 8 % (12-44); MEAN CORPUSCULAR HEMOGLOBIN 28 pg (25-34); MEAN CORPUSCULAR HGB CONC 29 g/dL (32-36); MEAN CORPUSCULAR VOLUME 96 fL (80-99); MEAN PLATELET VOLUME 9.6 fL (9.0-12.2); MONOCYTES # (AUTO) 0.6 10^3/uL (0.0-1.0); MONOCYTES % (AUTO) 4 % (0-12); NEUTROPHILS # (AUTO) 11.7 10^3/uL (1.8-7.8); NEUTROPHILS % (AUTO) 83 % (42-75); PLATELET COUNT 522 10^3/uL (130-400); WHITE BLOOD COUNT 14.1 10^3/uL (4.3-11.0)
[2021-05-15] MEDS: RT-ALBUTEROL HFA 8.5 GM INHALER IH SCH ×4 (06:49→19:28)
[2021-05-15 06:53] LABS: ALBUMIN 3.4 GM/DL (3.2-4.5)
[2021-05-15] MEDS: RT--FLUTICASONE/SALMETEROL 113-14 (AIRDUO RespiCLICK) IH SCH ×2 (06:53→19:28)
[2021-05-15 06:54] LABS: POTASSIUM 4.1 MMOL/L (3.6-5.0)
[2021-05-15] MEDS: UMECLIDINIUM BROMIDE (INCRUSE ELLIPTA) 7'S IH SCH (06:54)
[2021-05-15 06:55] LABS: CALCIUM 9.6 MG/DL (8.5-10.1)
[2021-05-15 06:56] LABS: TOTAL PROTEIN 6.7 GM/DL (6.4-8.2)
[2021-05-15 06:58] LABS: BILIRUBIN,TOTAL 0.2 MG/DL (0.1-1.0)
[2021-05-15 07:00] LABS: CREATININE SERUM 1.29 MG/DL (0.60-1.30)
[2021-05-15] MEDS: inSUlin ASPART (NovoLOG) 1 UNIT/0.01 ML (CHARGE PER UNIT) SC SCH ×4 (07:00→21:48)
[2021-05-15] MEDS: dexAMETHasone 6 MG TAB (DECADRON) PO SCH (08:03)
[2021-05-15] MEDS: FLUoxetine HCL 10 MG (PROzac) CAPSULE/TABLET PO SCH (08:03)
[2021-05-15] MEDS: APIXABAN 5 MG (ELIQUIS) TABLET PO SCH ×2 (08:04→21:48)
[2021-05-15] MEDS: meTOprolol TARTRATE 50 MG (LOPRESSOR) TAB PO SCH ×2 (08:04→21:49)
[2021-05-15] MEDS: dilTIAZem120 MG (CARDIZEM CD) CAP PO SCH (08:04)
[2021-05-15] MEDS: LORATADINE (CLARITIN) 10 MG TAB PO SCH (08:04)
[2021-05-15] MEDS: GABAPENTIN 600 MG (NEURONTIN) TAB PO SCH ×3 (08:04→21:48)
[2021-05-15] MEDS: KCL 20 MEQ TAB (K-DUR) PO SCH (08:05)
[2021-05-15] MEDS: TRIAMCINOLONE 0.1% CR (KENALOG) 15 GM TUBE TP SCH ×2 (08:05→21:50)
[2021-05-15] MEDS: ASPIRIN 81 MG CHEW (CHILDREN'S ASA) PO SCH (08:05)
[2021-05-15] MEDS: NYSTATIN CREAM (MYCOSTATIN) 30 GM TUBE TP SCH ×2 (08:05→21:50)
--- NOTE | 2021-05-15 08:20 | Tele-ICU Progress Note ---
Subjective Date Seen by a Provider: May 15, 2021 Time Seen by a Provider: 07:15 Subjective/Events-last exam Per GIOVANNY Garay pt on 6 LPM. No change and no events overnight. Working with PT. No new recommendations.Will sign off. Please call if questions. Sepsis Event Evaluation Height, Weight, BMI Height: 5'5." Weight: 218lbs. 0.0oz. [id number]; 35.62 BMI Method:Stated Exam Exam Patient acknowledged, consented, and participated in this virtual visit which was conducted using real time audio/video Vital Signs Date Time Temp Pulse Resp B/P (MAP) Pulse Ox O2 Delivery O2 Flow Rate FiO2 05/15/21 06:55 95 High Flow N/C 6.00 05/15/21 06:54 95 High Flow N/C 6.00 05/15/21 06:50 95 High Flow N/C 6.00 05/15/21 04:00 36.8 62 18 146/64 (91) 96 High Flow N/C 6.00 05/15/21 00:33 36.4 64 18 153/68 (96) 94 High Flow N/C 6.00 05/14/21 20:06 High Flow N/C 6.00 05/14/21 19:43 36.8 83 18 123/58 (79) 96 High Flow N/C 6.00 05/14/21 19:18 94 Nasal Cannula 5.00 05/14/21 19:17 94 Nasal Cannula 5.00 05/14/21 16:08 36.5 74 20 105/63 (77) 95 High Flow N/C 6.00 05/14/21 14:21 93 Nasal Cannula 5.00 05/14/21 12:00 36.5 69 20 134/61 (85) 90 High Flow N/C 6.00 05/14/21 11:38 91 Nasal Cannula 5.00 I & O 05/15/21 06:59 Intake Total 3280 ml Output Total 3600 ml Balance -320 ml Height & Weight Height: 5'5.00" Weight: 218lbs. 0.0oz. 98.475138ln; 35.62 BMI Method:Stated General Appearance: No Apparent Distress, WD/WN, Chronically ill HEENT: PERRL/EOMI Neck: Non Tender, Supple Respiratory: No Accessory Muscle Use, No Respiratory Distress, Decreased Breath Sounds Cardiovascular: Regular Rate, Rhythm Capillary Refill: Less Than 3 Seconds Extremity: Normal Capillary Refill, Normal Inspection, Non Tender, No Calf Tenderness Neurologic/Psychiatric: Alert, Oriented x3 Skin: Normal Color, Warm/Dry Results Lab Laboratory Tests 05/14/21 05:36 05/15/21 05:50 Assessment/Plan Assessment/Plan See free text. JANAK COMBS MD May 15, 2021 08:20
--- NOTE | 2021-05-15 08:48 | Progress Note - Cardiology ---
Cardiology SOAP Progress Note Subjective: Sitting up in bed eating breakfast States she feels good this morning No c/o CP or palpitations She feels her SOB is better today Objective: I&O/Vital Signs 05/15/21 05/15/21 05/15/21 05/15/21 00:33 04:00 06:50 06:54 Temp 36.4 36.8 Pulse 64 62 Resp 18 18 B/P (MAP) 153/68 (96) 146/64 (91) Pulse Ox 94 96 95 95 O2 Delivery High Flow N/C High Flow N/C High Flow N/C High Flow N/C O2 Flow Rate 6.00 6.00 6.00 6.00 05/15/21 05/15/21 06:55 08:18 Pulse Ox 95 95 O2 Delivery High Flow N/C High Flow N/C O2 Flow Rate 6.00 6.00 05/15/21 00:00 Intake Total 2780 ml Output Total 3600 ml Balance -820 ml Weight (Pounds): 218 Weight (Ounces): 0.0 Weight (Calculated Kilograms): 98.351360 Constitutional: AAO x 3, well-developed, well-nourished Respiratory: No accessory muscle use, No respiratory distress; chest expansion is symmetric, chest is bilaterally symmetric, rhonchi (scattered; prolonged exp phase), other (diminished breathsounds throughout) Gastrointestional: No tender; soft, round, audible bowel sounds Extremities: no lower extremity edema bilateral Neurologic/Psychiatric: grossly intact (moves all extremities) Skin: No rash on exposed areas, No ulcerations on exposed areas Results/Procedures: Labs Laboratory Tests 05/14/21 11:27: Glucometer 271H 05/14/21 16:10: Glucometer 279H 05/14/21 20:28: Glucometer 323H 05/15/21 05:50: White Blood Count 14.1H, Red Blood Count 3.38L, Hemoglobin 9.4L, Hematocrit 32L, Mean Corpuscular Volume 96, Mean Corpuscular Hemoglobin 28, Mean Corpuscular Hemoglobin Concent 29L, Red Cell Distribution Width 18.0H, Platelet Count 522H, Mean Platelet Volume 9.6, Immature Granulocyte % (Auto) 6, Neutrophils (%) (Auto) 83H, Lymphocytes (%) (Auto) 8L, Monocytes (%) (Auto) 4, Eosinophils (%) (Auto) 0, Basophils (%) (Auto) 0, Neutrophils # (Auto) 11.7H, Lymphocytes # (Auto) 1.1, Monocytes # (Auto) 0.6, Eosinophils # (Auto) 0.0, Basophils # (Auto) 0.1, Immature Granulocyte # (Auto) 0.8H, Sodium Level 142, Potassium Level 4.1, Chloride Level 98, Carbon Dioxide Level 30, Anion Gap 14, Blood Urea Nitrogen 40H, Creatinine 1.29, Estimat Glomerular Filtration Rate 43, BUN/Creatinine Ratio 31, Glucose Level 271H, Calcium Level 9.6, Corrected Calcium 10.1, Total Bilirubin 0.2, Aspartate Amino Transf (AST/SGOT) 23, Alanine Aminotransferase (ALT/SGPT) 33, Alkaline Phosphatase 143H, Total Protein 6.7, Albumin 3.4 Microbiology 05/12/21 MRSA Screen - Final, Complete MRSA not isolated 05/11/21 Blood Culture - Preliminary, Resulted No growth Laboratory Tests 05/14/21 05:36 05/15/21 05:50 A/P: Assessment: Acute resp failure (Multi-factorial) see below Pulmonary emboli throughout several of the right lower lobe peripheral branches. No central pulmonary embolus appreciated per CTA of 05-11-2021 - started on OAC with Eliquis (previously on Xarelto, but not compliant) Pneumonia - management per medical services Acute on chronic exacerbation of COPD Chronic diastolic CHF - clinically compensated Bilateral leg swelling - venous insufficiency - controlled PAF - first diagnosed on a hospitalization of Sep 2019 during hospitalization with acute respiratory failure and pneumonia - currently SR per telemetry of 05-14-21 - previoulsly on OAC with Xarelto (she believes during a recent hospitalization she had some missed doses) COPD - management per medical services Chest discomfort, - chronic, non-cardiac (based on card cath of 09/17/18). No chest discomfort currently - Card cath of 09/07/18: minimal CAD, LVEF 70-75%, elevated LVEDP Echo of 04-20-[address] Car: LVEF 60-65%. Grade 1 diastolic dysfunction. PASP 52 mmhg H/o hypertension H/o opiate addiction; clean for several years Chronic tobacco use - cessation advised Fam h/o early CAD Hyperlipidemia Carotid u/s on 01/05/19: no significant dz H/o L leg and R arm DVT in late 2017 / early 2018, treated with rivaroxaban Plan: Acute resp failure (multi-factorial, see above) Management of PE is per medical service - continue OAC with Eliquis Advise hematology consult d/t h/o previous DVT/PE in the past as well as new development of PE while on OAC with Xarelto Echocardiogram to eval structure and function Continue current medication regimen Monitor lab closely DELROY TURNER May 15, 2021 08:48
--- NOTE | 2021-05-15 09:38 | Physical Therapy Daily Note ---
PT Daily Note-Current Subjective Patient agrees to PT. Mental Status Patient Orientation: Normal For Age Attachments: Oxygen (5-6L HF) Transfers SCALE: Activities may be completed with or without assistive devices. 9-Mhrjflbxkg-atlkfsh completes the activity by him/herself with no assistance from a helper. 5-Set-up or Clean-up Assistance-helper sets up or cleans up; patient completes activity. [place] assists only prior to or following the activity. 4-Supervision or Touching Assistance-helper provides verbal cues and/or touching/steadying and/or contact guard assistance as patient completes activity. Assistance may be provided throughout the activity or intermittently. 3-Partial/Moderate Assistance-helper does LESS THAN HALF the effort. Madeline lifts, holds or supports trunk or limbs, but provides less than half the effort. 2-Substantial/Maximal Assistance-helper does MORE THAN HALF the effort. [place] lifts or holds trunk or limbs and provides more than half the effort. 1-Vazzlneyg-ylkpbe does ALL the effort. Patient does none of the effort to complete the activity. Or, the assistance of 2 or more helpers is required for the patient to complete the activity. If activity was not attempted, code reason: 7-Patient Refused. 9-Not Applicable-not attempted and the patient did not perform the activity before the current illness, exacerbation or injury. 10-Not Attempted due to Environmental Limitations-(lack of equipment, weather restraints, etc.). 88-Not Attempted due to Medical Conditions or Safety Concerns. Lying to Sitting/Side of Bed(Q: 6 Sit to Stand (QC): 6 Chair/Bdt-ne-Aalyw Xfer(QC): 6 Toilet Transfer (QC): 6 Gait Training Does the Patient Walk?: Yes Distance: 500' Walk 10 feet (QC): 6 Walk 50 ft with 2 Turns(QC): 6 Walk 150 ft (QC): 6 Gait Assistive Device: Cane Single Point safe and functional with no deviation Balance Picking up an Object (QC): 6 Treatments review HEP from ARU stay. Patient independent and reports compliance. Assessment Patient is currently at independent PLOF with all gross motor skills and reports compliance with exercise program. PT to dismiss patient from services at this time. PT Short Term Goals Short Term Goals Time Frame: May 15, 2021 Roll Left & Right: 6 Sit to lyin Lying to sitting on side of be: 6 Sit to stand: 6 Chair/rtv-fh-mnydq transfer: 6 Toilet transfer: 6 Walk 10 feet: 6 Walk 50 feet with two turns: 6 Walk 150 feet: 6 PT Plan Treatment/Plan Treatment Plan: Discontinue PT, goals met Treatment Plan: Education, Functional Activity Lyn, Functional Strength, Gait, Safety, Therapeutic Exercise Treatment Duration: May 15, 2021 Frequency: 2 times per week Estimated Hrs Per Day: .25 hour per day Patient and/or Family Agrees t: Yes Time/GCodes Time In: 824 Time Out: 847 Total Billed Treatment Time: 23 Total Billed Treatment 1 visit FA x 2 23 min MERVIN PETERSON PT May 15, 2021 09:38
--- NOTE | 2021-05-15 12:43 | Progress Note - Cardiology ---
Cardiology SOAP Progress Note Subjective: No cp or palp or syncope or shortness of breath No n/v/d Some gen malaise Objective: I&O/Vital Signs 05/15/21 05/15/21 05/15/21 05/15/21 04:00 06:50 06:54 06:55 Temp 36.8 Pulse 62 Resp 18 B/P (MAP) 146/64 (91) Pulse Ox 96 95 95 95 O2 Delivery High Flow N/C High Flow N/C High Flow N/C High Flow N/C O2 Flow Rate 6.00 6.00 6.00 6.00 05/15/21 05/15/21 05/15/21 05/15/21 08:00 08:00 08:18 11:58 Temp 36.1 Pulse 81 Resp 20 B/P (MAP) 137/66 (89) Pulse Ox 94 95 95 O2 Delivery High Flow N/C High Flow N/C High Flow N/C High Flow N/C O2 Flow Rate 6.00 6.00 6.00 5.00 05/15/21 00:00 Intake Total 2780 ml Output Total 3600 ml Balance -820 ml Weight (Pounds): 218 Weight (Ounces): 0.0 Weight (Calculated Kilograms): 98.019420 Constitutional: AAO x 3, well-developed, well-nourished Respiratory: No accessory muscle use, No respiratory distress; chest expansion is symmetric, chest is bilaterally symmetric, rhonchi (scattered; prolonged exp phase), other (diminished breathsounds throughout) Gastrointestional: No tender; soft, round, audible bowel sounds Extremities: no lower extremity edema bilateral Neurologic/Psychiatric: grossly intact (moves all extremities) Skin: No rash on exposed areas, No ulcerations on exposed areas Results/Procedures: Labs Laboratory Tests 05/14/21 16:10: Glucometer 279H 05/14/21 20:28: Glucometer 323H 05/15/21 05:50: White Blood Count 14.1H, Red Blood Count 3.38L, Hemoglobin 9.4L, Hematocrit 32L, Mean Corpuscular Volume 96, Mean Corpuscular Hemoglobin 28, Mean Corpuscular Hemoglobin Concent 29L, Red Cell Distribution Width 18.0H, Platelet Count 522H, Mean Platelet Volume 9.6, Immature Granulocyte % (Auto) 6, Neutrophils (%) (Auto) 83H, Lymphocytes (%) (Auto) 8L, Monocytes (%) (Auto) 4, Eosinophils (%) (Auto) 0, Basophils (%) (Auto) 0, Neutrophils # (Auto) 11.7H, Lymphocytes # (Auto) 1.1, Monocytes # (Auto) 0.6, Eosinophils # (Auto) 0.0, Basophils # (Auto) 0.1, Immature Granulocyte # (Auto) 0.8H, Sodium Level 142, Potassium Level 4.1, Chloride Level 98, Carbon Dioxide Level 30, Anion Gap 14, Blood Urea Nitrogen 40H, Creatinine 1.29, Estimat Glomerular Filtration Rate 43, BUN/Creatinine Ratio 31, Glucose Level 271H, Calcium Level 9.6, Corrected Calcium 10.1, Total Bilirubin 0.2, Aspartate Amino Transf (AST/SGOT) 23, Alanine Aminotransferase (ALT/SGPT) 33, Alkaline Phosphatase 143H, Total Protein 6.7, Albumin 3.4 05/15/21 11:52: Glucometer 215H Microbiology 05/12/21 MRSA Screen - Final, Complete MRSA not isolated 05/11/21 Blood Culture - Preliminary, Resulted No growth Laboratory Tests 05/14/21 05:36 05/15/21 05:50 A/P: Assessment: Acute resp failure (Multi-factorial) see below Pulmonary emboli throughout several of the right lower lobe peripheral branches. No central pulmonary embolus appreciated per CTA of 05-11-2021 - started on OAC with Eliquis (previously on Xarelto, but not compliant) Pneumonia - management per medical services Acute on chronic exacerbation of COPD Chronic diastolic CHF - clinically compensated - Echo of 05/14/21: LVEF 60-65%, mild biatrial enlargement, PASP 25-30% Bilateral leg swelling - venous insufficiency - controlled PAF - first diagnosed on a hospitalization of Sep 2019 during hospitalization with acute respiratory failure and pneumonia - currently SR per telemetry of 05-14-21 - previoulsly on OAC with Xarelto (she believes during a recent hospitalization she had some missed doses) COPD - management per medical services Chest discomfort, - chronic, non-cardiac (based on card cath of 09/17/18). No chest discomfort currently - Card cath of 09/07/18: minimal CAD, LVEF 70-75%, elevated LVEDP Echo of 04-20-[address] Car: LVEF 60-65%. Grade 1 diastolic dysfunction. PASP 52 mmhg H/o hypertension H/o opiate addiction; clean for several years Chronic tobacco use - cessation advised Fam h/o early CAD Hyperlipidemia Carotid u/s on 01/05/19: no significant dz H/o L leg and R arm DVT in late 2017 / early 2018, treated with rivaroxaban Plan: Acute resp failure (multi-factorial, see above) Management of PE is per medical service - continue OAC with Eliquis Advise hematology consult d/t h/o previous DVT/PE in the past as well as new development of PE while on OAC with Xarelto Echocardiogram to eval structure and function Continue current medication regimen Monitor lab closely JESS CONLEY MD FACP FAC CCDS May 15, 2021 12:43
--- NOTE | 2021-05-15 14:12 | Progress Note - Hospitalist ---
VELJEAN-CLAUDE 05/15/21 1412: Subjective HPI/CC On Admission Date Seen by Provider: May 15, 2021 Time Seen by Provider: 11:00 Chief complaint: Shortness of breath and altered mental status History present illness: This is a 56-year-old white female who was just discharged from inpatient rehab facility on my service this past 05/06/2021, who has a past medical history of oxygen dependent COPD current smoker and alcoholism who improved with ambulation and independent ADLs and overall strength so she was discharged after a 10-day stay but apparently went home became more weak and short of breath and was exposed to COVID-19 pneumonia and her granddaughter. She presented to the ER was assessed to have pulmonary emboli even though she was taking Xarelto 20 mg daily but unsure if she was compliant with that medication. She had 5 lobe pneumonia infiltrates on CT scan highly suspicious for Covid but rapid test was negative so awaiting PCR. I assessed her today and she is of altered mental status will obtain ABG and transfer to the ICU. Chest x-ray appears to be worse. Patient is overall very debilitated. Subjective/Events-last exam Pt new complaints include pain upon inspiration. Still has chronic foot pain with a respiratory tract phlegm. Venous Doppler studies resulted in negative DVT in both legs. Patient is not ready to discharge and wishes to be discharged tomorrow. Review of Systems General: No Chills, No Fatigue, No Appetite HEENT: No Head Aches, No Visual Changes, No Sore Throat Pulmonary: No Dyspnea; Cough Cardiovascular: No: Chest Pain, Palpitations, Edema Gastrointestinal: No: Nausea, Vomiting, Diarrhea Genitourinary: No Dysuria, No Incontinence, No Hematuria Musculoskeletal: No: neck pain, arm pain, leg pain Neurological: No: Weakness, Numbness, Confusion Objective Exam Vital Signs Vital Signs Date Time Temp Pulse Resp B/P (MAP) Pulse Ox O2 Delivery O2 Flow Rate FiO2 05/15/21 12:00 36.4 70 18 124/71 (88) 94 High Flow N/C 6.00 05/12/21 04:11 28 Capillary Refill : Less Than 3 Seconds General Appearance: No Apparent Distress, WD/WN HEENT: PERRL/EOMI Neck: Full Range of Motion, Non Tender, Supple Respiratory: Lungs Clear, Inspiration Cardiovascular: Regular Rate, Rhythm Gastrointestinal: Non Tender, Soft Back: Normal Inspection, No Vertebral Tenderness Extremity: Normal Capillary Refill, Normal Inspection, Normal Range of Motion, Non Tender, No Calf Tenderness Neurologic/Psychiatric: Alert, Oriented x3, Normal Mood/Affect Skin: Normal Color, Warm/Dry Results/Procedures Lab Laboratory Tests 05/15/21 05:50 Patient resulted labs reviewed. Assessment/Plan Assessment and Plan Assess & Plan/Chief Complaint Assessment: Altered mental status acute change from previous moving to ICU Bilateral multilobar opacities on CT scan suspicion for Covid with recent exposure rapid test was negative in ER will repeat test in place and PUI status Bacterial pneumonia placed on IV antibiotics New pulmonary emboli on CT scan failed Xarelto 20 mg daily placed on Lovenox Oxygen dependent end-stage COPD with current smoking status Chronic debility Chronic pain Alcoholism Paroxysmal atrial fibrillation Multiple falls 05/12/21: Transfer to ICU IV antibiotics Oxygen Check ABG eICU consult Lovenox for PE 05/13/21: Continue current management Await COVID PCR test results and repeat as necessary 05/14/2021: Supportive care Anticoag Eliquis COVID PCR Test came out negative Place on Regular Diet 05/15/2021: Ready for discharge tomorrow Continue exercises for LE Strength Supportive care Venous Doppler Studies Negative for DVT Bilateral legs Continue Eliquis for PE ppx SALLIE YANEZ DO 05/16/21 0530: Subjective Subjective/Events-last exam Pt doing a little better Discharge is planned for tomorrow Cough with sputum production noted Venous Doppler ultrasound was negative for DVT Chest X-ray reviewed Tolerating Eliquis Review of Systems General: Fatigue Pulmonary: Dyspnea Objective Exam General Appearance: No Apparent Distress, WD/WN, Chronically ill Respiratory: Lungs Clear Cardiovascular: Regular Rate, Rhythm Assessment/Plan Assessment and Plan Assess & Plan/Chief Complaint Discharge tomorrow Monitor closely Supervisory-Addendum Brief Verification & Attestation Participated in pt care: history, MDM, physical Personally performed: exam, history, MDM, supervision of care Care discussed with: Medical Student Procedures: n/a Results interpretation: Verified all documentation Verification and Attestation of Medical Student E/M Service A medical student performed and documented this service in my presence. I reviewed and verified all information documented by the medical student and made modifications to such information, when appropriate. I personally performed the physical exam and medical decision making. Sallie Yanez, May 16, 2021,05:29 JEAN-CLAUDE CROWDER May 15, 2021 14:12 SALLIE YANEZ DO May 16, 2021 05:30
--- NOTE | 2021-05-15 14:27 | Occupational Ther Daily Note ---
OT Current Status-Daily Note Subjective Pt alert, sitting in recliner. Pt agrees to therapy. No c/o pain. Mental Status/Objective Patient Orientation: Person, Place, Time, Situation ADL-Treatment Pt states that she is completing toileting independently. Pt is able to set up own meal and use regular utensils though with difficulty. Pt has numbness and tingling in R UE from fingers to elbow, marked hand muscle atrophy. Pt is having difficulty with using regular utensils due to this. Built up handles on eating and writing utensils applied to modify for easier use. Pt instructed on finger/wrist extensor exercises and massage to work against clawing of R index finger. Pt verbalized and demonstrated understand of all education. After therapy, pt sitting in recliner eating lunch. Call light/phone in reach. All needs met in room. Therapy Code Descriptions/Definitions Functional [place] Measure: 0=Not Assessed/NA 4=Minimal Assistance 1=Total Assistance 5=Supervision or Setup 2=Maximal Assistance 6=Modified [place] 3=Moderate Assistance 7=Complete IndependenceSCALE: Activities may be completed with or without assistive devices. 5-Wulsznqrvz-mtirouv completes the activity by him/herself with no assistance from a helper. 5-Set-up or Clean-up Assistance-helper sets up or cleans up; patient completes activity. [place] assists only prior to or following the activity. 4-Supervision or Touching Assistance-helper provides verbal cues and/or to uching/steadying and/or contact guard assistance as patient completes activity. Assistance may be provided throughout the activity or intermittently. 3-Partial/Moderate Assistance-helper does LESS THAN HALF the effort. [place] lifts, holds or supports trunk or limbs, but provides less than half the effort. 2-Substantial/Maximal Assistance-helper does MORE THAN HALF the effort. [place] lifts or holds trunk or limbs and provides more than half the effort. 8-Oldwkljvn-vaunyw does ALL the effort. Patient does none of the effort to complete the activity. Or, the assistance of 2 or more helpers is required for the patient to complete the activity. If activity was not attempted, code reason: 7-Patient Refused. 9-Not Applicable-not attempted and the patient did not perform the activity before the current illness, exacerbation or injury. 10-Not Attempted due to Environmental Limitations-(lack of equipment, weather restraints, etc.). 88-Not Attempted due to Medical Conditions or Safety Concerns. Eating (QC): 6 Toileting Hygiene (QC): 6 Toilet Transfer (QC): 6 OT Group Home Goals Group Home Goals Time Frame: May 24, 2021 Eating (QC): 6 Oral Hygiene (QC): 6 Toileting Hygiene (QC): 6 Shower/Bathe Self (QC): 6 Upper Body Dressing (QC): 6 Lower Body Dressing (QC): 6 On/Off Footwear (QC): 6 Additional Goals: 1-Demonstrate ADL Tasks, 2-Verbalize Understanding, 3- ImproveStrength/Lyn 1=Demonstrate adherence to instructed precautions during ADL tasks. 2=Patient will verbalize/demonstrate understanding of assistive devices/modifications for ADL. 3=Patient will improve strength/tolerance for activity to enable patient to perform ADL's. OT Education/Plan Problem List/Assessment Assessment: Decreased UE Strength Discharge Recommendations Plan/Recommendations: Continue POC Treatment Plan/Plan of Care Patient would benefit from OT for education, treatment and training to promote independence in ADL's, mobility, safety and/or upper extremity function for ADL's. Plan of Care: ADL Retraining, Functional Mobility, UE Funct Exercise/Act Treatment Duration: May 24, 2021 Frequency: 5 times per week Estimated Hrs Per Day: .25 hour per day Rehab Potential: Fair Time/GCodes Start Time: 12:50 Stop Time: 13:10 Total Time Billed (hr/min): 20 Billed Treatment Time 1 visit-FA 1 (20 min) TY REAGAN May 15, 2021 14:27
[2021-05-16 03:45] VITALS: BP 157/80
[2021-05-16 06:20] LABS: BASOPHILS # (AUTO) 0.1 10^3/uL (0.0-0.1); BASOPHILS % (AUTO) 0 % (0-10); EOSINOPHILS % (AUTO) 0 % (0-10); HEMATOCRIT 31 % (35-52); LYMPHOCYTES # (AUTO) 1.3 10^3/uL (1.0-4.0); LYMPHOCYTES % (AUTO) 7 % (12-44); MEAN CORPUSCULAR HEMOGLOBIN 28 pg (25-34); MEAN CORPUSCULAR HGB CONC 29 g/dL (32-36); MEAN CORPUSCULAR VOLUME 98 fL (80-99); MEAN PLATELET VOLUME 9.4 fL (9.0-12.2); MONOCYTES # (AUTO) 0.8 10^3/uL (0.0-1.0); MONOCYTES % (AUTO) 4 % (0-12); NEUTROPHILS # (AUTO) 14.9 10^3/uL (1.8-7.8); NEUTROPHILS % (AUTO) 78 % (42-75); PLATELET COUNT 511 10^3/uL (130-400); WHITE BLOOD COUNT 19.1 10^3/uL (4.3-11.0)
[2021-05-16 06:32] LABS: ALBUMIN 3.3 GM/DL (3.2-4.5)
[2021-05-16 06:33] LABS: POTASSIUM 4.5 MMOL/L (3.6-5.0)
[2021-05-16 06:34] LABS: CALCIUM 9.4 MG/DL (8.5-10.1)
[2021-05-16 06:35] LABS: TOTAL PROTEIN 6.2 GM/DL (6.4-8.2)
[2021-05-16 06:37] LABS: BILIRUBIN,TOTAL 0.2 MG/DL (0.1-1.0)
[2021-05-16 06:39] LABS: CREATININE SERUM 1.28 MG/DL (0.60-1.30)
[2021-05-16] MEDS: CEFEPIME 1,000 MG/SWFI 10 ML IV PUSH IV SCH ×4 (06:49→11:48)
[2021-05-16] MEDS: FUROSEMIDE 40 MG (LASIX) TAB PO SCH (06:49)
[2021-05-16] MEDS: inSUlin ASPART (NovoLOG) 1 UNIT/0.01 ML (CHARGE PER UNIT) SC SCH ×3 (06:49→16:58)
[2021-05-16] MEDS: CATHETER FLUSH 10 ML SYR IV SCH ×2 (06:49→14:40)
[2021-05-16] MEDS: RT-ALBUTEROL HFA 8.5 GM INHALER IH SCH ×3 (07:39→14:27)
[2021-05-16] MEDS: RT--FLUTICASONE/SALMETEROL 113-14 (AIRDUO RespiCLICK) IH SCH (07:39)
[2021-05-16 07:40] VITALS: BP 160/85
[2021-05-16] MEDS: UMECLIDINIUM BROMIDE (INCRUSE ELLIPTA) 7'S IH SCH (07:40)
[2021-05-16] MEDS: dilTIAZem120 MG (CARDIZEM CD) CAP PO SCH (08:31)
[2021-05-16] MEDS: TRIAMCINOLONE 0.1% CR (KENALOG) 15 GM TUBE TP SCH (08:31)
[2021-05-16] MEDS: KCL 20 MEQ TAB (K-DUR) PO SCH (08:31)
[2021-05-16] MEDS: APIXABAN 5 MG (ELIQUIS) TABLET PO SCH (08:31)
[2021-05-16] MEDS: GABAPENTIN 600 MG (NEURONTIN) TAB PO SCH ×2 (08:31→11:57)
[2021-05-16] MEDS: dexAMETHasone 6 MG TAB (DECADRON) PO SCH (08:31)
[2021-05-16] MEDS: ASPIRIN 81 MG CHEW (CHILDREN'S ASA) PO SCH (08:31)
[2021-05-16] MEDS: NYSTATIN CREAM (MYCOSTATIN) 30 GM TUBE TP SCH (08:31)
[2021-05-16] MEDS: meTOprolol TARTRATE 50 MG (LOPRESSOR) TAB PO SCH (08:31)
[2021-05-16] MEDS: LORATADINE (CLARITIN) 10 MG TAB PO SCH (08:31)
[2021-05-16] MEDS: FLUoxetine HCL 10 MG (PROzac) CAPSULE/TABLET PO SCH (08:31)
--- NOTE | 2021-05-16 09:28 | Progress Note - Cardiology ---
Cardiology SOAP Progress Note Subjective: Sitting up in bed No c/o CP Feels breathing is better today Objective: I&O/Vital Signs 05/15/21 05/15/21 05/16/21 05/16/21 21:50 23:50 03:45 07:39 Temp 36.8 36.5 Pulse 77 66 Resp 20 16 B/P (MAP) 160/73 (102) 157/80 (105) Pulse Ox 93 95 90 O2 Delivery High Flow N/C High Flow N/C High Flow N/C Nasal Cannula O2 Flow Rate 5.00 5.00 5.00 5.00 05/16/21 05/16/21 05/16/21 07:40 07:40 07:41 Temp 36.8 Pulse 70 Resp 18 B/P (MAP) 160/85 (110) Pulse Ox 92 O2 Delivery Nasal Cannula High Flow N/C Nasal Cannula O2 Flow Rate 5.00 5.00 5.00 05/16/21 00:00 Intake Total 2390 ml Balance 2390 ml Weight (Pounds): 218 Weight (Ounces): 0.0 Weight (Calculated Kilograms): 98.720923 Constitutional: AAO x 3, well-developed, well-nourished Respiratory: No accessory muscle use, No respiratory distress; chest expansion is symmetric, chest is bilaterally symmetric, rhonchi (scattered; prolonged exp phase), other (diminished breathsounds throughout) Gastrointestional: No tender; soft, round, audible bowel sounds Extremities: no lower extremity edema bilateral Neurologic/Psychiatric: grossly intact (moves all extremities) Skin: No rash on exposed areas, No ulcerations on exposed areas Results/Procedures: Labs Laboratory Tests 05/15/21 11:52: Glucometer 215H 05/15/21 15:22: Glucometer 239H 05/15/21 21:08: Glucometer 218H 05/16/21 06:08: White Blood Count 19.1H, Red Blood Count 3.21L, Hemoglobin 9.0L, Hematocrit 31L, Mean Corpuscular Volume 98, Mean Corpuscular Hemoglobin 28, Mean Corpuscular Hemoglobin Concent 29L, Red Cell Distribution Width 17.9H, Platelet Count 511H, Mean Platelet Volume 9.4, Immature Granulocyte % (Auto) 11, Neutrophils (%) (Auto) 78H, Lymphocytes (%) (Auto) 7L, Monocytes (%) (Auto) 4, Eosinophils (%) (Auto) 0, Basophils (%) (Auto) 0, Neutrophils # (Auto) 14.9H, Lymphocytes # (Auto) 1.3, Monocytes # (Auto) 0.8, Eosinophils # (Auto) 0.0, Basophils # (Auto) 0.1, Immature Granulocyte # (Auto) 2.0H, Sodium Level 144, Potassium Level 4.5, Chloride Level 100, Carbon Dioxide Level 30, Anion Gap 14, Blood Urea Nitrogen 43H, Creatinine 1.28, Estimat Glomerular Filtration Rate 43, BUN/Creatinine Ratio 34, Glucose Level 194H, Calcium Level 9.4, Corrected Calcium 10.0, Total Bilirubin 0.2, Aspartate Amino Transf (AST/SGOT) 19, Alanine Aminotransferase (ALT/SGPT) 32, Alkaline Phosphatase 130, Total Protein 6.2L, Albumin 3.3 05/16/21 06:45: Glucometer 191H Microbiology 05/12/21 MRSA Screen - Final, Complete MRSA not isolated 05/11/21 Blood Culture - Preliminary, Resulted No growth Laboratory Tests 05/15/21 05:50 05/16/21 06:08 A/P: Assessment: Acute resp failure (Multi-factorial) see below Pulmonary emboli throughout several of the right lower lobe peripheral branches. No central pulmonary embolus appreciated per CTA of 05-11-2021 - started on OAC with Eliquis (previously on Xarelto, but not compliant) Pneumonia - management per medical services Acute on chronic exacerbation of COPD Chronic diastolic CHF - clinically compensated - Echo of 05/14/21: LVEF 60-65%, mild biatrial enlargement, PASP 25-30% Bilateral leg swelling - venous insufficiency - controlled PAF - first diagnosed on a hospitalization of Sep 2019 during hospitalization with acute respiratory failure and pneumonia - currently SR per telemetry of 05-14-21 - previoulsly on OAC with Xarelto (she believes during a recent hospitalization she had some missed doses) COPD - management per medical services Chest discomfort, - chronic, non-cardiac (based on card cath of 09/17/18). No chest discomfort currently - Card cath of 09/07/18: minimal CAD, LVEF 70-75%, elevated LVEDP Echo of 04-20-[address] Car: LVEF 60-65%. Grade 1 diastolic dysfunction. PASP 52 mmhg H/o hypertension H/o opiate addiction; clean for several years Chronic tobacco use - cessation advised Fam h/o early CAD Hyperlipidemia Carotid u/s on 01/05/19: no significant dz H/o L leg and R arm DVT in late 2017 / early 2018, treated with rivaroxaban Plan: Acute resp failure (multi-factorial, see above) Management of PE is per medical service - continue OAC with Eliquis Advise hematology consult d/t h/o previous DVT/PE in the past as well as new development of PE while on OAC with Xarelto Continue current medication regimen Monitor lab closely Probable d/c home today Advise out pt f/u DELROY TURNER May 16, 2021 09:28
[2021-05-16] MEDS ORDERED: METO50TA15 PO (09:29)
--- NOTE | 2021-05-16 11:16 | Occupational Ther Daily Note ---
OT Current Status-Daily Note Subjective Pt alert, lying in bed. Pt c/o fatigue. Pt agrees to participate in therapy. Mental Status/Objective Patient Orientation: Person, Place, Time, Situation Attachments: IV ADL-Treatment Pt states that she thinks she is going to get to go home today. Pt declines to change clothing due to lunch coming soon. Pt is independent with bed mobility and ambulating from bed to recliner using cane. Pt is using built up handles for utensils. Therapy Code Descriptions/Definitions Functional [place] Measure: 0=Not Assessed/NA 4=Minimal Assistance 1=Total Assistance 5=Supervision or Setup 2=Maximal Assistance 6=Modified [place] 3=Moderate Assistance 7=Complete IndependenceSCALE: Activities may be completed with or without assistive devices. 1-Zawhzycizn-cdgneey completes the activity by him/herself with no assistance from a helper. 5-Set-up or Clean-up Assistance-helper sets up or cleans up; patient completes activity. [place] assists only prior to or following the activity. 4-Supervision or Touching Assistance-helper provides verbal cues and/or touching/steadying and/or contact guard assistance as patient completes activity. Assistance may be provided throughout the activity or intermittently. 3-Partial/Moderate Assistance-helper does LESS THAN HALF the effort. [place] lifts, holds or supports trunk or limbs, but provides less than half the effort. 2-Substantial/Maximal Assistance-helper does MORE THAN HALF the effort. [place] lifts or holds trunk or limbs and provides more than half the effort. 0-Jbocwccdo-wsjlpy does ALL the effort. Patient does none of the effort to complete the activity. Or, the assistance of 2 or more helpers is required for the patient to complete the activity. If activity was not attempted, code reason: 7-Patient Refused. 9-Not Applicable-not attempted and the patient did not perform the activity before the current illness, exacerbation or injury. 10-Not Attempted due to Environmental Limitations-(lack of equipment, weather restraints, etc.). 88-Not Attempted due to Medical Conditions or Safety Concerns. Other Treatment Pt demonstrates understanding of B UE exercises and reports that she has HEP at home from ARU stay. After therapy, pt sitting in recliner with call light/phone in reach. All needs met in room. OT Snf Goals Fire Extinguisher Charger Goals Time Frame: May 24, 2021 Eating (QC): 6 Oral Hygiene (QC): 6 Toileting Hygiene (QC): 6 Shower/Bathe Self (QC): 6 Upper Body Dressing (QC): 6 Lower Body Dressing (QC): 6 On/Off Footwear (QC): 6 Additional Goals: 1-Demonstrate ADL Tasks, 2-Verbalize Understanding, 3- ImproveStrength/Lyn 1=Demonstrate adherence to instructed precautions during ADL tasks. 2=Patient will verbalize/demonstrate understanding of assistive devices/modifications for ADL. 3=Patient will improve strength/tolerance for activity to enable patient to perform ADL's. OT Education/Plan Problem List/Assessment Assessment: Impaired Self-Care Skills Discharge Recommendations Plan/Recommendations: Continue POC Treatment Plan/Plan of Care Patient would benefit from OT for education, treatment and training to promote independence in ADL's, mobility, safety and/or upper extremity function for ADL's. Plan of Care: ADL Retraining, Functional Mobility, UE Funct Exercise/Act Treatment Duration: May 24, 2021 Frequency: 5 times per week Estimated Hrs Per Day: .25 hour per day Rehab Potential: Fair Time/GCodes Start Time: 11:00 Stop Time: 11:15 Total Time Billed (hr/min): 15 Billed Treatment Time 1 visit-FA 1 (15 min) TY REAGAN May 16, 2021 11:16
[2021-05-16] MEDS ORDERED: CEFD300C3 PO (11:37)
[2021-05-16] MEDS ORDERED: APIX5TAB PO ×2 (11:37→12:32)
[2021-05-16] MEDS ORDERED: UMEC62.5 IH (11:37)
[2021-05-16] MEDS ORDERED: PRED10TA22 PO (11:37)
[2021-05-16] MEDS ORDERED: OXYC10TA7 PO (11:37)
--- NOTE | 2021-05-16 11:38 | Discharge Summary ---
Discharge Summary Hospital Course Was the Problem List Reviewed?: Yes Problems/Dx: (1) Altered mental status (2) Acute respiratory failure with hypoxemia Status: Acute (3) Pulmonary embolism Status: Acute (4) History of recent hospitalization Status: Acute (5) Physical debility Status: Acute Hospital Course Date of Admission: May 11, 2021 at 20:45 Admission Diagnosis : Family Physician/Provider: García Hicks DO Date of Discharge: 05/16/21 Discharge Diagnosis: Acute hypoxic respiratory failure, multilobar pneumonia, exacerbation of COPD, oxygen dependent chronically, chronic pain, chronic lymphedema Hospital Course: Hospital Course: Pt had a lengthy hospital course for six days after she was admitted for hospital acquired pneumonia. Covid PCR was negative, pt responded to IV steroids and IV antibiotics and was also noted to have pulmonary emboli placed on Eliquis. She was discharged in improved condition along with oxygen supplementation along with Eliquis and antibiotics and steroid taper dose. Labs and Pending Lab Test: Laboratory Tests 05/15/21 11:52: Glucometer 215H 05/15/21 15:22: Glucometer 239H 05/15/21 21:08: Glucometer 218H 05/16/21 06:08: White Blood Count 19.1H, Red Blood Count 3.21L, Hemoglobin 9.0L, Hematocrit 31L, Mean Corpuscular Volume 98, Mean Corpuscular Hemoglobin 28, Mean Corpuscular Hemoglobin Concent 29L, Red Cell Distribution Width 17.9H, Platelet Count 511H, Mean Platelet Volume 9.4, Immature Granulocyte % (Auto) 11, Neutrophils (%) (Auto) 78H, Lymphocytes (%) (Auto) 7L, Monocytes (%) (Auto) 4, Eosinophils (%) (Auto) 0, Basophils (%) (Auto) 0, Neutrophils # (Auto) 14.9H, Lymphocytes # (Auto) 1.3, Monocytes # (Auto) 0.8, Eosinophils # (Auto) 0.0, Basophils # (Auto) 0.1, Immature Granulocyte # (Auto) 2.0H, Sodium Level 144, Potassium Level 4.5, Chloride Level 100, Carbon Dioxide Level 30, Anion Gap 14, Blood Urea Nitrogen 43H, Creatinine 1.28, Estimat Glomerular Filtration Rate 43, BUN/Creatinine Ratio 34, Glucose Level 194H, Calcium Level 9.4, Corrected Calcium 10.0, Total Bilirubin 0.2, Aspartate Amino Transf (AST/SGOT) 19, Alanine Aminotransferase (ALT/SGPT) 32, Alkaline Phosphatase 130, Total Protein 6.2L, Albumin 3.3 05/16/21 06:45: Glucometer 191H 05/16/21 11:27: Glucometer 184H Microbiology 05/12/21 MRSA Screen - Final, Complete MRSA not isolated 05/11/21 Blood Culture - Preliminary, Resulted No growth Home Meds Active Cefdinir 300 Mg Capsule 300 Mg PO BID Prednisone 10 Mg Tab.ds.pk 10 Mg PO DAILY Take 4 tabs(40mg)daily,decrease by 1 tab(10MG)daily. Eliquis (Apixaban) 5 Mg Tablet 10 Mg PO BID Incruse Ellipta (Umeclidinium [place]) 62.5 Mcg Blst.w.dev 0 Inh IH DAILY@0800 Oxycodone HCl 10 Mg Tablet 10 Mg PO Q4H PRN Metoprolol Tartrate 50 Mg Tablet 50 Mg PO BID Xanax Tablet (Alprazolam) 0.25 Mg Tab 0.25 Mg PO Q8H PRN Triamcinolone Acetonide 0.1% Cream (Triamcinolone Acet) 15 Gm Cr 0 Gm TP BID Nystatin 15 Gm Cream..g. 0 Gm TP BID Reported Loratadine 10 Mg Tablet 10 Mg PO DAILY Potassium Chloride 20 Meq Tablet.er 20 Meq PO DAILY Prozac (Fluoxetine HCl) 10 Mg Capsule 10 Mg PO DAILY Breztri Aerosphere Inhaler (Budesonide/Glycopyr/Formoterol) 10.7 Gm Hfa.aer.ad 2 Puff INH BID Albuterol Sulfate 1.25 Mg/3 Ml Vial.neb 3 Ml INH Q6H PRN Ventolin Hfa (Albuterol Sulfate) 1 Puff Puff 2 Puff INH Q4H PRN Cartia Xt (Diltiazem HCl) 120 Mg Cap.er.24h 120 Mg PO DAILY Budesonide 1 Mg/2 Ml Ampul.neb 2 Ml INH BID Furosemide 80 Mg Tablet 80 Mg PO DAILY Lisinopril 10 Mg Tablet 10 Mg PO DAILY PRN Metoprolol Tartrate 100 Mg Tablet 50-100 Mg PO BID DEPENDING ON REAL TIME READING PATIENT WILL TAKE BETWEEN TO 1 TABLET TWICE DAILY Aspirin 81 Mg Tab.chew 81 Mg PO DAILY Gabapentin 600 Mg Tablet 600 Mg PO TID Assessment/Pt Instructions PCP Dr. HICKS in 1 week Discharge Planning: <30 minutes discharge planning Discharge Instructions Discharge Diet: No Restrictions Discharge Physical Examination Vital Signs Vital Signs Date Time Temp Pulse Resp B/P (MAP) Pulse Ox O2 Delivery O2 Flow Rate FiO2 05/16/21 10:27 91 Nasal Cannula 5.00 05/16/21 07:40 36.8 70 18 160/85 (110) 05/12/21 04:11 28 General Appearance: No Apparent Distress, WD/WN, Chronically ill Respiratory: Normal Breath Sounds, Decreased Breath Sounds Cardiovascular: Regular Rate, Rhythm Neurologic/Psychiatric: Alert, Oriented x3 Allergies: Coded Allergies: No Known Drug Allergies (Unverified , 04/29/19) Discharge Summary Date of Admission May 11, 2021 at 20:45 Date of Discharge Discharge Date: May 16, 2021 Admission Diagnosis Assessment: Altered mental status acute change from previous moving to ICU Bilateral multilobar opacities on CT scan suspicion for Covid with recent exposure rapid test was negative in ER will repeat test in place and PUI status Bacterial pneumonia placed on IV antibiotics New pulmonary emboli on CT scan failed Xarelto 20 mg daily placed on Lovenox Oxygen dependent end-stage COPD with current smoking status Chronic debility Chronic pain Alcoholism Paroxysmal atrial fibrillation Multiple falls Plan: Transfer to ICU IV antibiotics Oxygen Check ABG eICU consult Lovenox for PE Discharge Diagnosis Discharge tomorrow Monitor closely (1) Altered mental status (2) Acute respiratory failure with hypoxemia Status: Acute (3) Pulmonary embolism Status: Acute (4) History of recent hospitalization Status: Acute (5) Physical debility Status: Acute TAL YANEZ DO May 16, 2021 11:38
--- NOTE | 2021-05-16 11:38 | D/C HH Face to Face Order ---
D/C Face to Face Orders Reconcile Patient Problems Problems Reviewed?: Yes Instructions for Patient Via [facility] [employer], Patient Instructions/FollowUp: PCP1 week Physician to follow Patient: PCP Discharge Diet for Home: No Restrictions Patient Problems: PNA Patient Data-Allergies,Ht & Wt Patient Allergies: Coded Allergies: No Known Drug Allergies (Unverified , 04/29/19) Height (Feet): 5 Height (Inches): 5.00 Weight (Pounds): 218 Weight (Ounces): 0.0 Home Health Need/Face to Face Date of Face to Face: May 16, 2021 Clinical Findings: Generalized weakness and fatigue, Instability, Muscle weakness, Shortness of breath I have seen Pt [id number]: Yes Discharged To: Home Diagnosis/Conditions: PNA Patient is Homebound due to: [place] fall risk due to instabilty, Muscle weakness Homebound Status Due to the above stated illness, injury or surgical procedure (medical condition or diagnosis) and associated clinical findings, the patient is homebound because of his/her inability to leave home except with aid of a supportive device and/or person AND leaving the home requires a considerable and taxing effort or is medically contraindicated. Pt req the following assistanc: [facility] Nursing Orders Home Health Services Order: Nursing Services, Adhesive Bandage Making Operator-Evaluate & Treat, Physical Therapy-Evaluate & Treat Home Health Infusion Therapy Line Start Date: May 11, 2021 Certify Stmt I certify that this patient is under my care and that I, a nurse practitioner or a physician; a assistant manager bilingual working with me, had a face to face encounter that - meets the physician face to face encounter requirements with this patient as dated. TAL YANEZ DO May 16, 2021 11:38
[2021-05-16 11:52] VITALS: BP 142/76
[2021-05-16 16:25] VITALS: BP 146/71
--- NOTE | 2021-05-16 17:37 | Progress Note ---
JEAN-CLAUDE CROWDER 05/16/21 1737: Progress Note [id number] was discharged from inpatient rehab on 05/06/2021, but went to the ER due to weakness, SOB, and COVID exposure where she was assessed with a pulmonary embolus despite Xarelto 20mg daily but was unsure whether or not she was complaint with the medication. She also came in the ICU with severe debility, a ltered mental status/memory loss, and lobar pneumonia confirmed by CT. COVID testing resulted negative. Head CT negative for hemorrhagic stroke. Venous Doppler studies revealed negative DVT in both legs. Main complaints throughout was her chronic foot pain where she requested pain management. She regained strength again, reduced pulmonary symptoms, and memory improved over the course of her stay. She was discharged with home oxygen test, Eliquis, Omnicef, and tapered steroid doses. SALLIE YANEZ DO 05/17/21 0538: Supervisory-Addendum Brief Verification & Attestation Participated in pt care: history, MDM, physical Personally performed: exam, history, MDM, supervision of care Care discussed with: Medical Student Procedures: n/a Results interpretation: Verified all documentation Verification and Attestation of Medical Student E/M Service A medical student performed and documented this service in my presence. I reviewed and verified all information documented by the medical student and made modifications to such information, when appropriate. I personally performed the physical exam and medical decision making. Sallie Yanez, May 17, 2021,05:38 JEAN-CLAUDE CROWDER May 16, 2021 17:37 SALLIE YANEZ DO May 17, 2021 05:38
[2021-05-16 18:19] VITALS: BP 146/71
--- NOTE | 2021-05-16 18:21 | Progress Note - Cardiology ---
Cardiology SOAP Progress Note Subjective: No cp or palp or syncope or shortness of breath. No n/v/d. Some gen malaise present Objective: I&O/Vital Signs 05/16/21 05/16/21 05/16/21 05/16/21 07:39 07:40 07:40 07:41 Temp 36.8 Pulse 70 Resp 18 B/P (MAP) 160/85 (110) Pulse Ox 90 92 O2 Delivery Nasal Cannula Nasal Cannula High Flow N/C Nasal Cannula O2 Flow Rate 5.00 5.00 5.00 5.00 05/16/21 05/16/21 05/16/21 05/16/21 08:00 10:27 11:52 14:07 Temp 36.7 Pulse 75 Resp 20 B/P (MAP) 142/76 (98) Pulse Ox 91 91 93 84 O2 Delivery High Flow N/C Nasal Cannula High Flow N/C O2 Flow Rate 5.00 5.00 5.00 5.00 05/16/21 05/16/21 14:27 16:25 Pulse 74 Resp 20 B/P (MAP) 146/71 (96) Pulse Ox 93 94 O2 Delivery Nasal Cannula High Flow N/C O2 Flow Rate 6.00 6.00 05/16/21 00:00 Intake Total 2390 ml Balance 2390 ml Weight (Pounds): 218 Weight (Ounces): 0.0 Weight (Calculated Kilograms): 98.255745 Constitutional: AAO x 3, well-developed, well-nourished Respiratory: No accessory muscle use, No respiratory distress; chest expansion is symmetric, chest is bilaterally symmetric, rhonchi (scattered; prolonged exp phase), other (diminished breathsounds throughout) Gastrointestional: No tender; soft, round, audible bowel sounds Extremities: no lower extremity edema bilateral Neurologic/Psychiatric: grossly intact (moves all extremities) Skin: No rash on exposed areas, No ulcerations on exposed areas Results/Procedures: Labs Laboratory Tests 05/15/21 21:08: Glucometer 218H 05/16/21 06:08: White Blood Count 19.1H, Red Blood Count 3.21L, Hemoglobin 9.0L, Hematocrit 31L, Mean Corpuscular Volume 98, Mean Corpuscular Hemoglobin 28, Mean Corpuscular Hemoglobin Concent 29L, Red Cell Distribution Width 17.9H, Platelet Count 511H, Mean Platelet Volume 9.4, Immature Granulocyte % (Auto) 11, Neutrophils (%) (Auto) 78H, Lymphocytes (%) (Auto) 7L, Monocytes (%) (Auto) 4, Eosinophils (%) (Auto) 0, Basophils (%) (Auto) 0, Neutrophils # (Auto) 14.9H, Lymphocytes # (Auto) 1.3, Monocytes # (Auto) 0.8, Eosinophils # (Auto) 0.0, Basophils # (Auto) 0.1, Immature Granulocyte # (Auto) 2.0H, Sodium Level 144, Potassium Level 4.5, Chloride Level 100, Carbon Dioxide Level 30, Anion Gap 14, Blood Urea Nitrogen 43H, Creatinine 1.28, Estimat Glomerular Filtration Rate 43, BUN/Creatinine Ratio 34, Glucose Level 194H, Calcium Level 9.4, Corrected Calcium 10.0, Total Bilirubin 0.2, Aspartate Amino Transf (AST/SGOT) 19, Alanine Aminotransferase (ALT/SGPT) 32, Alkaline Phosphatase 130, Total Protein 6.2L, Albumin 3.3 05/16/21 06:45: Glucometer 191H 05/16/21 11:27: Glucometer 184H 05/16/21 16:23: Glucometer 218H Microbiology 05/12/21 MRSA Screen - Final, Complete MRSA not isolated 05/11/21 Blood Culture - Preliminary, Resulted No growth Procedures Laboratory Tests 05/15/21 05:50 05/16/21 06:08 A/P: Assessment: Acute resp failure (multi-factorial) see below Pulmonary emboli throughout several of the right lower lobe peripheral branches. No central pulmonary embolus appreciated per CTA of 05-11-2021 - started on OAC with Eliquis (previously on Xarelto, but not compliant) Pneumonia - management per medical services Acute on chronic exacerbation of COPD Chronic diastolic CHF - clinically compensated - Echo of 05/14/21: LVEF 60-65%, mild biatrial enlargement, PASP 25-30% Bilateral leg swelling - venous insufficiency - controlled PAF - first diagnosed on a hospitalization of Sep 2019 during hospitalization with acute respiratory failure and pneumonia - currently SR per telemetry of 05-14-21 - previoulsly on OAC with Xarelto (she believes during a recent hospitalization she had some missed doses) COPD - management per medical services Chest discomfort, - chronic, non-cardiac (based on card cath of 09/17/18). No chest discomfort currently - Card cath of 09/07/18: minimal CAD, LVEF 70-75%, elevated LVEDP Echo of 04-20-[address] Car: LVEF 60-65%. Grade 1 diastolic dysfunction. PASP 52 mmhg H/o hypertension H/o opiate addiction; clean for several years Chronic tobacco use - cessation advised Fam h/o early CAD Hyperlipidemia Carotid u/s on 01/05/19: no significant dz H/o L leg and R arm DVT in late 2017 / early 2018, treated with rivaroxaban Plan: Acute resp failure (multi-factorial, see above) Management of PE is per medical service - continue OAC with Eliquis Advise hematology consult d/t h/o previous DVT/PE in the past as well as new development of PE while on OAC with Xarelto Continue current medication regimen Monitor lab closely Advise out pt f/u JESS CONLEY MD FACP FAC CCDS May 16, 2021 18:21
--- NOTE | 2021-05-16 18:26 | Progress Note - Cardiology ---
Cardiology SOAP Progress Note Subjective: No cp or palp or syncope or shortness of breath. No n/v/d. Some gen malaise present Objective: I&O/Vital Signs 05/16/21 05/16/21 05/16/21 05/16/21 07:39 07:40 07:40 07:41 Temp 36.8 Pulse 70 Resp 18 B/P (MAP) 160/85 (110) Pulse Ox 90 92 O2 Delivery Nasal Cannula Nasal Cannula High Flow N/C Nasal Cannula O2 Flow Rate 5.00 5.00 5.00 5.00 05/16/21 05/16/21 05/16/21 05/16/21 08:00 10:27 11:52 14:07 Temp 36.7 Pulse 75 Resp 20 B/P (MAP) 142/76 (98) Pulse Ox 91 91 93 84 O2 Delivery High Flow N/C Nasal Cannula High Flow N/C O2 Flow Rate 5.00 5.00 5.00 5.00 05/16/21 05/16/21 05/16/21 14:27 16:25 18:19 Temp 36.7 Pulse 74 74 Resp 20 20 B/P (MAP) 146/71 (96) 146/71 Pulse Ox 93 94 94 O2 Delivery Nasal Cannula High Flow N/C High Flow N/C O2 Flow Rate 6.00 6.00 6.00 05/16/21 00:00 Intake Total 2390 ml Balance 2390 ml Weight (Pounds): 218 Weight (Ounces): 0.0 Weight (Calculated Kilograms): 98.394231 Constitutional: AAO x 3, well-developed, well-nourished Respiratory: No accessory muscle use, No respiratory distress; chest expansion is symmetric, chest is bilaterally symmetric, rhonchi (scattered; prolonged exp phase), other (diminished breathsounds throughout) Gastrointestional: No tender; soft, round, audible bowel sounds Extremities: no lower extremity edema bilateral Neurologic/Psychiatric: grossly intact (moves all extremities) Skin: No rash on exposed areas, No ulcerations on exposed areas Results/Procedures: Labs Laboratory Tests 05/15/21 21:08: Glucometer 218H 05/16/21 06:08: White Blood Count 19.1H, Red Blood Count 3.21L, Hemoglobin 9.0L, Hematocrit 31L, Mean Corpuscular Volume 98, Mean Corpuscular Hemoglobin 28, Mean Corpuscular Hemoglobin Concent 29L, Red Cell Distribution Width 17.9H, Platelet Count 511H, Mean Platelet Volume 9.4, Immature Granulocyte % (Auto) 11, Neutrophils (%) (Auto) 78H, Lymphocytes (%) (Auto) 7L, Monocytes (%) (Auto) 4, Eosinophils (%) (Auto) 0, Basophils (%) (Auto) 0, Neutrophils # (Auto) 14.9H, Lymphocytes # (Auto) 1.3, Monocytes # (Auto) 0.8, Eosinophils # (Auto) 0.0, Basophils # (Auto) 0.1, Immature Granulocyte # (Auto) 2.0H, Sodium Level 144, Potassium Level 4.5, Chloride Level 100, Carbon Dioxide Level 30, Anion Gap 14, Blood Urea Nitrogen 43H, Creatinine 1.28, Estimat Glomerular Filtration Rate 43, BUN/Creatinine Ratio 34, Glucose Level 194H, Calcium Level 9.4, Corrected Calcium 10.0, Total Bilirubin 0.2, Aspartate Amino Transf (AST/SGOT) 19, Alanine Aminotransferase (ALT/SGPT) 32, Alkaline Phosphatase 130, Total Protein 6.2L, Albumin 3.3 05/16/21 06:45: Glucometer 191H 05/16/21 11:27: Glucometer 184H 05/16/21 16:23: Glucometer 218H Microbiology 05/12/21 MRSA Screen - Final, Complete MRSA not isolated 05/11/21 Blood Culture - Preliminary, Resulted No growth A/P: Assessment: Acute resp failure (multi-factorial) see below Pulmonary emboli throughout several of the right lower lobe peripheral branches. No central pulmonary embolus appreciated per CTA of 05-11-2021 - started on OAC with Eliquis (previously on Xarelto, but not compliant) Pneumonia - management per medical services Acute on chronic exacerbation of COPD Chronic diastolic CHF - clinically compensated - Echo of 05/14/21: LVEF 60-65%, mild biatrial enlargement, PASP 25-30% Bilateral leg swelling - venous insufficiency - controlled PAF - first diagnosed on a hospitalization of Sep 2019 during hospitalization with acute respiratory failure and pneumonia - currently SR per telemetry of 05-14-21 - previoulsly on OAC with Xarelto (she believes during a recent hospitalization she had some missed doses) COPD - management per medical services Chest discomfort, - chronic, non-cardiac (based on card cath of 09/17/18). No chest discomfort currently - Card cath of 09/07/18: minimal CAD, LVEF 70-75%, elevated LVEDP H/o hypertension H/o opiate addiction; clean for several years Chronic tobacco use - cessation advised Fam h/o early CAD Hyperlipidemia Carotid u/s on 01/05/19: no significant dz H/o L leg and R arm DVT in late 2017 / early 2018, treated with rivaroxaban Plan: Acute resp failure (multi-factorial, see above) Management of PE is per medical service - continue OAC with Eliquis Advise hematology consult d/t h/o previous DVT/PE in the past as well as new development of PE while on OAC with Xarelto Continue current medication regimen Monitor lab closely Advise out pt f/u JESS CONLEY MD FACP FAC CCDS May 16, 2021 18:26
[2021-05-16] MEDS ORDERED: OXC5T PO (21:04)
[2021-05-17] MEDS ORDERED: predniSONE 20 MG TAB PO SCH (07:00)
[2021-05-21] MEDS ORDERED: APIXABAN 5 MG (ELIQUIS) TABLET PO SCH (09:00)
== END 2021-05-16 17:40 | disposition home health service (06) | DRG 175 ==
LOC: EDUNIT# 14:35 → ER 14:37 → 4TH 20:45 → ICU 05-12 14:26 → 4TH 05-13 18:33
PROVIDERS: ADMIT Internal Medicine; ATTEND Internal Medicine
DX: I26.99 Other pulmonary embolism without acute cor pulmonale (principal); J15.9 Unspecified bacterial pneumonia; J96.21 Acute and chronic respiratory failure with hypoxia; J44.0 Chronic obstructive pulmonary disease with (acute) lower respiratory infection; J44.1 Chronic obstructive pulmonary disease with (acute) exacerbation; I50.32 Chronic diastolic (congestive) heart failure; Z79.82 Long term (current) use of aspirin; Z79.899 Other long term (current) drug therapy; F17.210 Nicotine dependence, cigarettes, uncomplicated; Z86.718 Personal history of other venous thrombosis and embolism; E78.00 Pure hypercholesterolemia, unspecified; G83.9 Paralytic syndrome, unspecified; I11.0 Hypertensive heart disease with heart failure; K21.9 Gastro-esophageal reflux disease without esophagitis; F31.9 Bipolar disorder, unspecified; Z99.81 Dependence on supplemental oxygen; R53.81 Other malaise; G89.29 Other chronic pain; F10.20 Alcohol dependence, uncomplicated; I48.0 Paroxysmal atrial fibrillation; Z20.822 Contact with and (suspected) exposure to COVID-19; I89.0 Lymphedema, not elsewhere classified; Z82.49 Family history of ischemic heart disease and other diseases of the circulatory system; R07.89 Other chest pain
CPT/HCPCS: 36415; 36600; 70450; 71045; 71275; 80053; 82805; 82947; 83605; 83880; 84145; 85007; 85025; 85027; 85379; 87040; 87081; 87635; 87636; 93306; 93970; 94640; 94664; 94760; 94761; 96374; 96375

== ENCOUNTER 2021-05-23 05:14 | Inpatient (IN) | payer BC, MEDICAID ==
[~2021-05-23] VITALS: Ht 165.1 cm; Wt 86.2 kg
[~2021-05-23 05:14] MED LIST changes: +APIX5TAB PO; -BUDE1AMP2 INH; +BUDE1AMP2 NEB; +CEFD300C3 PO; +OXC5T PO; +UMEC62.5 IH
[2021-05-23 05:53] LABS: ABG BASE EXCESS 7.5 MMOL/L (-2.5-2.5); ABG OXYGEN SATURATION 13 % (94-100); ABG PCO2 66 MMHG (35-45); ABG TCO2 35.5 MMOL/L (21.0-31.0); ALLENS TEST POSITIVE; INSPIRED O2 6; PATIENT TEMP 36.5; VENTILATOR NO
[2021-05-23 05:54] LABS: ABG PH 7.32 (7.37-7.43); ABG PO2 18 MMHG (79-93)
[2021-05-23 05:57] LABS: BASOPHILS % (AUTO) 0 % (0-10); EOSINOPHILS % (AUTO) 0 % (0-10); HEMATOCRIT 34 % (35-52); HEMOGLOBIN 10.1 g/dL (11.5-16.0); LYMPHOCYTES # (AUTO) 1.1 10^3/uL (1.0-4.0); LYMPHOCYTES % (AUTO) 9 % (12-44); MEAN CORPUSCULAR HEMOGLOBIN 29 pg (25-34); MEAN CORPUSCULAR HGB CONC 30 g/dL (32-36); MEAN CORPUSCULAR VOLUME 97 fL (80-99); MEAN PLATELET VOLUME 9.2 fL (9.0-12.2); MONOCYTES # (AUTO) 0.9 10^3/uL (0.0-1.0); MONOCYTES % (AUTO) 7 % (0-12); NEUTROPHILS # (AUTO) 10.5 10^3/uL (1.8-7.8); NEUTROPHILS % (AUTO) 82 % (42-75); PLATELET COUNT 355 10^3/uL (130-400); WHITE BLOOD COUNT 12.8 10^3/uL (4.3-11.0)
[2021-05-23 05:58] LABS: POTASSIUM 4.9 MMOL/L (3.6-5.0)
[2021-05-23 06:00] LABS: CALCIUM 9.8 MG/DL (8.5-10.1)
[2021-05-23 06:01] LABS: TOTAL PROTEIN 7.7 GM/DL (6.4-8.2)
[2021-05-23 06:03] LABS: BILIRUBIN,TOTAL 0.4 MG/DL (0.1-1.0)
[2021-05-23 06:05] LABS: CREATININE SERUM 1.37 MG/DL (0.60-1.30); FIBRIN DEGRADATION PRODUCTS 0.84 UG/ML (0.00-0.49); INR 1.3 (0.8-1.4); PROTHROMBIN TIME PATIENT 16.1 SEC (12.2-14.7)
[2021-05-23] MEDS ORDERED: CEFEPIME INJECTION 1,000 MG in WATER (STERILE) FOR INJECTION 10 ML IV ONE (06:45)
--- NOTE | 2021-05-23 06:50 | ED General ---
General Chief Complaint: General Problems/Pain Stated Complaint: POSS PNA Nursing Triage Note: Pt arrival to ER via EMS with complaint of weakness x several weeks. Pt states that she has been in and out of the hospital recently with pneumonia. Pt was found by EMS off of her NC that she is supposed to wear at all times at 6 lpm. Pt arrival to ER without O2 with sats of 56% on room air. Pt encouraged to take deep breaths and cough and sats improved to 94% and greater on her NC at 6 lpm. Source of Information: Patient, EMS Exam Limitations: Physical Impairments (Illness) History of Present Illness Date Seen by Provider: May 23, 2021 Time Seen by Provider: 05:15 Initial Comments Here by EMS with complaint of overall not feeling well and some confusion. Found to be quite hypoxic on EMS arrival. Apparently she is post to be on 6 L of oxygen and was on none. Patient states that she wears it in her house but EMS noted that they did not see any of the tanks accessed although did not see a concentrator either and not may have been another part of the house. Patient d oes smoke. Denies nausea or vomiting. Does report cough and weakness. Patient seems to be quite drowsy and somewhat confused. She was discharged from the hospital on 16 May after pulmonary embolism and failed Xarelto therapy. She was switched to Eliquis which she reportedly is taking. Timing/Duration: 2-3 Days, Getting Worse Severity: Moderate Associated Systoms: No Chest Pain; Cough; No Fever/Chills, No Nausea/Vomiting; Shortness of Air, Weakness Allergies and Home Medications Allergies Coded Allergies: No Known Drug Allergies (Unverified , 04/29/19) Home Medications ALPRAZolam 0.25 Mg Tab, 0.25 MG PO Q8H PRN for ANXIETY Prescribed by: TAL YANEZ on 05/06/21 0996 Albuterol Sulfate 1 Puff Puff, 2 PUFF INH Q4H PRN for SHORTNESS OF BREATH, (Reported) Albuterol Sulfate 1.25 Mg/3 Ml Vial.neb, 3 ML INH Q6H PRN for SHORTNESS OF BREATH, (Reported) Apixaban 5 Mg Tablet, 5 MG PO BID TAKE 2 TABLETS BID X 7 DAYS, THEN 1 TABLET BID Prescribed by: TAL YANEZ on 05/16/21 1232 Aspirin 81 Mg Tab.chew, 81 MG PO DAILY, (Reported) Budesonide 1 Mg/2 Ml Ampul.neb, 2 ML INH BID, (Reported) Budesonide/Glycopyr/Formoterol 10.7 Gm Hfa.aer.ad, 2 PUFF INH BID, (Reported) Cefdinir 300 Mg Capsule, 300 MG PO BID Prescribed by: TAL YANEZ on 05/16/211136 Diltiazem HCl 120 Mg Cap.er.24h, 120 MG PO DAILY, (Reported) Fluoxetine HCl 10 Mg Capsule, 10 MG PO DAILY, (Reported) Furosemide 80 Mg Tablet, 80 MG PO DAILY, (Reported) Gabapentin 600 Mg Tablet, 600 MG PO TID, (Reported) Lisinopril 10 Mg Tablet, 10 MG PO DAILY PRN for BLOOD PRESSURE, (Reported) Loratadine 10 Mg Tablet, 10 MG PO DAILY, (Reported) Metoprolol Tartrate 50 Mg Tablet, 50 MG PO BID Prescribed by: DELROY TURNER on 05/16/21928 Nystatin 15 Gm Cream..g., 0 GM TP BID Prescribed by: TAL YANEZ on 05/06/21927 Oxycodone HCl 10 Mg Tablet, 10 MG PO Q4H PRN for PAIN-SEVERE (8-10) Prescribed by: TAL YANEZ on 05/16/211136 Oxycodone Hcl 5 Mg Tab, 10 MG PO BID PRN for PAIN-SEVERE (8-10) Prescribed by: TAL YANEZ on 05/16/212104 Potassium Chloride 20 Meq Tablet.er, 20 MEQ PO DAILY, (Reported) Prednisone 10 Mg Tab.ds.pk, 10 MG PO DAILY Take 4 tabs(40mg)daily,decrease by 1 tab(10MG)daily. Prescribed by: TAL YANEZ on 05/16/211136 Triamcinolone Acet 15 Gm Cr, 0 GM TP BID Prescribed by: TAL YANEZ on 05/06/21927 Umeclidinium [place] 62.5 Mcg Blst.w.dev, 0 INH IH DAILY@0800 Prescribed by: TAL YANEZ on 05/16/211136 Patient Home Medication List Home Medication List Reviewed: Yes Review of Systems Review of Systems Constitutional: see HPI; No chills, No fever; weakness EENTM: No nose congestion, No throat pain Respiratory: cough, short of breath Cardiovascular: No chest pain, No edema Gastrointestinal: No nausea, No vomiting Genitourinary: no symptoms reported Musculoskeletal: No back pain; muscle weakness Skin: no symptoms reported Psychiatric/Neurological: See HPI, Weakness All Other Systems Reviewed Negative Unless Noted: Yes Past Mnnzjbb-Eutuoj-Lkeejr Hx Patient Social History Tobacco Use?: Yes Tobacco type used: Cigarettes Smoking Status: Current Everyday Smoker Use of E-Cig and/or Vaping dev: No Substance use?: No Alcohol Use?: No Pt feels they are or have been: No Immunizations Up To Date Tetanus Booster (TDap): Unknown Influenza Vaccine Up-to-Date: No; Not Current Seasonal Allergies Seasonal Allergies: Yes Past Medical History Surgery/Hospitalization HX: PT HAS A COPD HX. IS ON 2L VIA NC AT HOME. ALSO ON XARELTO. pmh: afib, htn, cellulitis Surgeries: Yes (CARDIAC CATH 2018) Hysterectomy Respiratory: Yes (O2 AT 2L/NC CONTINUOUS;INTUBATED WITH ARDS/PNEUMONIAL 09/2019) Pneumonia, Chronic Bronchitis, COPD Cardiac: Yes (DVT ARM AND LEG; CARDIAC CATH 2018-NORMAL) Atrial Fibrillation, Deep Vein Thrombosis, High Cholesterol, Hypertension Neurological: Yes Paralysis 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 Disorders: Yes Female 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 Disorders: Denies [employer] History: Menopausal Sexually Transmitted Disease: No HIV/AIDS: No Genitourinary: Yes (NO DIALYSIS) Renal Failure, UTI-Chronic Gastrointestinal: Yes Gastroesophageal Reflux Musculoskeletal: Yes (CHRONIC GENERALIZED PAIN ) Endocrine: Yes (HAS BEEN ON INSULIN WHEN SHE HAS HAD STEROIDS-STATES SHE IS NOT DIABETIC) HEENT: No Cancer: No Psychosocial: Yes (OPIATE ABUSE, ALCOHOL ABUSE) Bipolar, Depression Integumentary: Yes (CHRONIC LEG WOUNDS/CELLULITIS) Blood Disorders: No Adverse Reaction/Blood Tranf: No Family Medical History Reviewed Nursing Family Hx Cerebrovascular accident (CVA) 19 FATHER, Onset:60 years & older FH: testicular cancer G8 BROTHER, Onset:30's - 40 Hypertension 19 FATHER, Onset:Unknown 19 MOTHER, Onset:Unknown G8 BROTHER, Onset:Unknown G8 BROTHER, Onset:Unknown Myocardial infarction 19 FATHER, Onset:40's - 50 Heart Disease, Hypertension SOCIAL HISTORY: -ETOH --ABUSE/REGULAR USE -DRUGS--LONG HISTORY OF OPIATE ABUSE -SMOKES 2 PPD ADDITIONAL PMH: -12/14/2020-TRANSFERRED TO [facility] FOR SEPTIC SHOCK WITH ACUTE RENAL FAILURE DUE TO CELLULITIS OF LEGS. -02/03/21-TRANSFERRED TO [place] FOR SEPSIS WITH ACUTE RENAL FAILURE, ALSO DUE TO CELLULITIS OF LEGS. -ADMITTED AND INTUBATED X 1 MONTH IN SEPTEMBER 2019 FOR BILATERAL PNEUMONIA AND ARDS. HISTORY OF OPIATE ABUSE/ADDICTION--HAS BEEN ON SUBOXONE, BUT STATES SHE CANNOT AFFORD IT AND IS NO LONGER TAKING IT OF 03/11/21 Physical Exam-Suspected Sepsis Physical Exam Vital Signs Vital Signs - First Documented 05/23/21 05/23/21 05:14 07:15 Temp 36.5 Pulse 104 Resp 24 B/P (MAP) 139/65 (89) Pulse Ox 56 O2 Delivery Room Air O2 Flow Rate 50.00 Capillary Refill : Less Than 3 Seconds Blood Pressure Mean: 89 Height, Weight, BMI Height: 5'5.00" Weight: 218lbs. 0.0oz. 98.065182lc; 35.00 BMI Method:Stated General Appearance: Chronically ill, Mild Distress HEENT: PERRL/EOMI, Pharynx Normal Neck: Non Tender, Supple Respiratory: Lungs Clear, Normal Breath Sounds Cardiovascular: No Murmur, Tachycardia Gastrointestinal: Non Tender, Soft Back: Normal Inspection, No CVA Tenderness, No Vertebral Tenderness Extremity: Normal Range of Motion, Non Tender Neurologic/Psychiatric: Alert, Oriented x3 Skin: normal color, warm/dry Focused Exam Lactate Level 05/23/21 05:30: Lactic Acid Level 0.66 Lactic Acid Level Laboratory Tests Test 05/23/21 05:30 Lactic Acid Level 0.66 MMOL/L (0.50-2.00) Procedures/Interventions Date of ETT Placement: Oct 07, 2019 Time of ETT Placement: 010 Progress/Results/Core Measures Suspected Sepsis SIRS Temperature: Pulse: 104 Respiratory Rate: 24 Laboratory Tests 05/23/21 05:30: White Blood Count 12.8H Blood Pressure 139 /65 Mean: 89 05/23/21 05:30: Lactic Acid Level 0.66 Laboratory Tests 05/23/21 05:30: Creatinine 1.37H, INR Comment 1.3, Platelet Count 355, Total Bilirubin 0.4 Results/Orders Lab Results Laboratory Tests Test 05/23/21 05:30 05/23/21 06:44 05/23/21 06:48 Range/Units White Blood Count 12.8 H 4.3-11.0 10^3/uL Red Blood Count 3.51 L 3.80-5.11 10^6/uL Hemoglobin 10.1 L 11.5-16.0 g/dL Hematocrit 34 L 35-52 % Mean Corpuscular Volume 97 80-99 fL Mean Corpuscular Hemoglobin 29 25-34 pg Mean Corpuscular Hemoglobin Concent 30 L 32-36 g/dL Red Cell Distribution Width 19.7 H 10.0-14.5 % Platelet Count 355 130-400 10^3/uL Mean Platelet Volume 9.2 9.0-12.2 fL Immature Granulocyte % (Auto) 2 % Neutrophils (%) (Auto) 82 H 42-75 % Lymphocytes (%) (Auto) 9 L 12-44 % Monocytes (%) (Auto) 7 0-12 % Eosinophils (%) (Auto) 0 0-10 % Basophils (%) (Auto) 0 0-10 % Neutrophils # (Auto) 10.5 H 1.8-7.8 10^3/uL Lymphocytes # (Auto) 1.1 1.0-4.0 10^3/uL Monocytes # (Auto) 0.9 0.0-1.0 10^3/uL Eosinophils # (Auto) 0.0 0.0-0.3 10^3/uL Basophils # (Auto) 0.0 0.0-0.1 10^3/uL Immature Granulocyte # (Auto) 0.2 H 0.0-0.1 10^3/uL Prothrombin Time 16.1 H 12.2-14.7 SEC INR Comment 1.3 0.8-1.4 Activated Partial Thromboplast Time 52 H 24-35 SEC D-Dimer 0.84 H 0.00-0.49 UG/ML Blood Gas Puncture Site LEFT RADIAL RIGHT RADIAL Blood Gas Patient Temperature 36.5 36.9 Arterial Blood pH 7.32 *L 7.33 *L 7.37-7.43 Arterial Blood Partial Pressure CO2 66 H 59 H 35-45 MMHG Arterial Blood Partial Pressure O2 18 *L 75 L 79-93 MMHG Arterial Blood HCO3 34 H 30 H 23-27 MMOL/L Arterial Blood Total CO2 35.5 H 32.2 H 21.0-31.0 MMOL/L Arterial Blood Oxygen Saturation 13 L 93 L 94-100 % Arterial Blood Base Excess 7.5 H 4.7 H -2.5-2.5 MMOL/L Jame Test POSITIVE POSITIVE Blood Gas Ventilator Setting NO NO Blood Gas Inspired Oxygen 6 6 Sodium Level 135 135-145 MMOL/L Potassium Level 4.9 3.6-5.0 MMOL/L Chloride Level 94 L 98-107 MMOL/L Carbon Dioxide Level 27 21-32 MMOL/L Anion Gap 14 5-14 MMOL/L Blood Urea Nitrogen 27 H 7-18 MG/DL Creatinine 1.37 H 0.60-1.30 MG/DL Estimat Glomerular Filtration Rate 40 BUN/Creatinine Ratio 20 Glucose Level 118 H 70-105 MG/DL Lactic Acid Level 0.66 0.50-2.00 MMOL/L Calcium Level 9.8 8.5-10.1 MG/DL Corrected Calcium 9.8 8.5-10.1 MG/DL Total Bilirubin 0.4 0.1-1.0 MG/DL Aspartate Amino Transf (AST/SGOT) 22 5-34 U/L Alanine Aminotransferase (ALT/SGPT) 24 0-55 U/L Alkaline Phosphatase 112 40-136 U/L C-Reactive Protein High Sensitivity 20.96 H 0.00-0.50 MG/DL Total Protein 7.7 6.4-8.2 GM/DL Albumin 4.0 3.2-4.5 GM/DL Procalcitonin 0.59 H <0.10 NG/ML Urine Color YELLOW Urine Clarity CLEAR Urine pH 5.5 5-9 Urine Specific [place] >=1.030 1.016-1.022 Urine Protein 1+ H NEGATIVE Urine Glucose (UA) NEGATIVE NEGATIVE Urine Ketones NEGATIVE NEGATIVE Urine Nitrite NEGATIVE NEGATIVE Urine Bilirubin NEGATIVE NEGATIVE Urine Urobilinogen 0.2 < = 1.0 MG/DL Urine Leukocyte Esterase NEGATIVE NEGATIVE Urine RBC (Auto) NEGATIVE NEGATIVE Urine RBC NONE /HPF Urine WBC 0-2 /HPF Urine Squamous Epithelial Cells 10-25 H /HPF Urine Renal Epithelial Cells 0-2 /HPF Urine Crystals PRESENT H /LPF Urine Amorphous Sediment LARGE FORTINO URATES H /LPF Urine Bacteria NEGATIVE /HPF Urine Casts NONE /LPF Urine Mucus NEGATIVE /LPF Urine Culture Indicated NO My Orders Orders - GENA ANGULO MD Cbc With Automated Diff (05/23/21 05:23) Comprehensive Metabolic Panel (05/23/21 05:23) Blood Culture (05/23/21 05:23) Sputum Culture (05/23/21 05:23) Urinalysis (05/23/21 05:23) Urine Culture (05/23/21 05:23) Protime With Inr (05/23/21 05:23) Partial Thromboplastin Time (05/23/21 05:23) Chest 1 View, Ap/Pa Only (05/23/21 05:23) Ed Iv/Invasive Line Start (05/23/21 05:23) Vital Signs Adult Sepsis Patie Q15M (05/23/21 05:23) O2 (05/23/21 05:23) Remove Rings In Anticipation O (05/23/21 05:23) Lactic Acid Analyzer (05/23/21 05:23) Arterial Blood Gas (05/23/21 05:28) Hs C Reactive Protein (05/23/21 05:23) Fibrin Degradation Products (05/23/21 05:23) Procalcitonin (Pct) (05/23/21 05:23) Cefepime Injection (Maxipime Injection) (05/23/21 06:45) Medications Given in ED Current Medications Medications Dose Ordered Sig/Chery Route Start Time Stop Time Status Last Admin Dose Admin Cefepime HCl 1000 mg/Sterile Water 10 ml @ 200 mls/hr ONCE ONCE IV 05/23/21 06:45 05/23/21 06:47 DC 05/23/21 07:05 200 MLS/HR Vital Signs/I&O 05/23/21 05/23/21 05:14 07:15 Temp 36.5 Pulse 104 100 Resp 24 16 B/P (MAP) 139/65 (89) Pulse Ox 56 92 O2 Delivery Room Air O2 Flow Rate 50.00 Capillary Refill : Less Than 3 Seconds Blood Pressure Mean: 89 Progress Note : Progress Note Seen and evaluated on arrival by EMS. Patient 53% on transfer of O2 on arrival. Did come up to 92 after placed on 6 L via nasal cannula and coaching. Patient seems to be confused but then does answer questions and follows commands. ABG ordered. Sepsis order set initiated. Monitor patient. 0635: Chest x-ray does show moderate right lower lobe infiltrate. White count is elevated and so CRP. Cefepime 1 g IV initiated due to history of COPD. Patient will require admission. Patient is still occasionally taking off her oxygen and having significant desaturations. Initial ABG appears to be venous study. We will repeat that. Patient will be admitted to stepdown due to need for monitoring her oxygen saturations while treatment for pneumonia. Lactic acid is not el evated and patient does not require high-volume fluid resuscitation at this time. Diagnostic Imaging Diagonstic Imaging: Xray Plain Films/CT/US/NM/MRI: chest Comments Right lower lobe pneumonia Departure Communication (Admissions) Time/Spoke to Admitting Phy: 06:46 Impression Primary Impression: Right lower lobe pneumonia Qualified Codes: J18.9 - Pneumonia, unspecified organism Disposition: ADMITTED INPATIENT Condition: Stable Admissions Decision to Admit Reason: Admit from ER (General) Decision to Admit/Date: May 23, 2021 Time/Decision to Admit Time: 06:46 Departure-Patient Inst. Referrals: BROOKE JOYNER DO (PCP/Family) Primary Care Physician GENA ANGULO MD May 23, 2021 06:50
[2021-05-23 06:54] LABS: ABG BASE EXCESS 4.7 MMOL/L (-2.5-2.5); ABG OXYGEN SATURATION 93 % (94-100); ABG PCO2 59 MMHG (35-45); ABG PO2 75 MMHG (79-93); ABG TCO2 32.2 MMOL/L (21.0-31.0); ALLENS TEST POSITIVE; INSPIRED O2 6; PATIENT TEMP 36.9; VENTILATOR NO
[2021-05-23 06:55] LABS: ABG PH 7.33 (7.37-7.43)
[2021-05-23 07:07] LABS: BILIRUBIN,URINE NEGATIVE (NEGATIVE); CLARITY,URINE CLEAR; COLOR,URINE YELLOW; GLUCOSE, URINE (UA) NEGATIVE (NEGATIVE); KETONES,URINE NEGATIVE (NEGATIVE); LEUKOCYTE ESTERASE ,URINE NEGATIVE (NEGATIVE); NITRITE,URINE NEGATIVE (NEGATIVE); PH,URINE 5.5 (5-9); PROTEIN,URINE 1+ (NEGATIVE)
[2021-05-23 07:15] VITALS: BP 98/63
[2021-05-23 07:20] LABS: AMORPHOUS SEDIMENT,UR LARGE AMOR URATES /LPF; BACTERIA,URINE NEGATIVE /HPF; RENAL EPITHELIAL CELLS,URINE 0-2 /HPF; WBC,URINE 0-2 /HPF
[2021-05-23] MEDS ORDERED: LACTATED RINGERS 1,000 ML IV ONE (08:30)
[2021-05-23 08:56] VITALS: BP 98/63
--- NOTE | 2021-05-23 09:20 | Diagnostic Imaging Report ---
INDICATION: Sepsis. Comparison made to prior examination of 05/14/2021. FINDINGS: There is cardiomegaly. There is some venous congestion. There is a patchy right perihilar and right basal infiltrate. There is no pleural effusion or pneumothorax. The mediastinum is unremarkable. IMPRESSION: Patchy right perihilar and right basal infiltrate. Cardiomegaly and some central pulmonary venous congestion. Dictated by: Dictated on workstation # [id number]
[2021-05-23] MEDS ORDERED: ONDANSETRON 4 MG/2 ML (SDV) Z0FRAN IV PRN (09:30)
[2021-05-23] MEDS: LACTATED RINGERS 1,000 ML IV SCH ×2 (09:52→15:53)
[2021-05-23] MEDS ORDERED: CEFEPIME 1,000 MG/SWFI 10 ML IV PUSH IV SCH ×2 (12:00)
[2021-05-23 12:44] VITALS: BP 104/56
[2021-05-23] MEDS ORDERED: RT-ALBUTEROL/IPRATROPIUM 3 ML (DUONEB) VIAL INH PRN (13:00)
--- NOTE | 2021-05-23 13:23 | History & Physical-Hospitalist ---
History of Present Illness HPI/Chief Complaint Helene Hicks is a 56-year-old female well-known to the medical service with multiple recent hospitalizations who presented with shortness of breath. She had also been feeling weak. She reports that she had been wearing her oxygen although the EMS reported that they did not see tanks or concentrator. She reports that she has been taking her Eliquis for a recently diagnosed PE. She denies fevers. She does have a cough. She has had sputum production. She denies any chest pain. She denies nausea and vomiting. She denies diarrhea. Her leg swelling has improved. Source: patient Exam Limitations: no limitations Date Seen 05/23/21 Time Seen by a Provider: 09:00 Attending Physician Sapphire Diamond MD PCP García Hicks DO Referring Physician Date of Admission May 23, 2021 at 07:09 Home Medications & Allergies Home Medications Reviewed patient Home Medication Reconciliation performed by pharmacy medication reconciliations gas technician and/or nursing. Patients Allergies have been reviewed. Allergies Allergies Coded Allergies No Known Drug Allergies (Unverified04/29/19) Past [id number] Hx Patient Social History Tobacco Use?: Yes Tobacco type used: Cigarettes Smoking Status: Current Everyday Smoker Use of E-Cig and/or Vaping dev: No Substance use?: No Alcohol Use?: No Pt feels they are or have been: No Immunizations Up To Date Date of Influenza Vaccine: Jul 11, 2020 Tetanus Booster (TDap): Unknown Hepatitis A: No Hepatitis B: No Seasonal Allergies Seasonal Allergies: Yes Current Status status: No Advance Directives: No Communicates: Verbally Primary Language: Kyrgyz Preferred Spoken Language: Kyrgyz Is interpretation needed?: No Implanted or Applied Medical D: None Past Medical History Surgeries: Hysterectomy Pneumonia, Chronic Bronchitis, COPD Atrial Fibrillation, Deep Vein Thrombosis, High Cholesterol, Hypertension Paralysis 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 Sexually Transmitted Disease: No HIV/AIDS: No Renal Failure, UTI-Chronic Gastroesophageal Reflux Bipolar, Depression Blood Disorders: No Adverse Reaction/Blood Tranf: No wound/ edema COPD on home o2 Family Medical History Reviewed Nursing Family Hx Cerebrovascular accident (CVA) 19 FATHER, Onset:60 years & older FH: testicular cancer G8 BROTHER, Onset:30's - 40 Hypertension 19 FATHER, Onset:Unknown 19 MOTHER, Onset:Unknown G8 BROTHER, Onset:Unknown G8 BROTHER, Onset:Unknown Myocardial infarction 19 FATHER, Onset:40's - 50 Heart Disease, Hypertension SOCIAL HISTORY: -ETOH --ABUSE/REGULAR USE -DRUGS--LONG HISTORY OF OPIATE ABUSE -SMOKES 2 PPD ADDITIONAL PMH: -12/14/2020-TRANSFERRED TO [facility] FOR SEPTIC SHOCK WITH ACUTE RENAL FAILURE DUE TO CELLULITIS OF LEGS. -02/03/21-TRANSFERRED TO [facility] FOR SEPSIS WITH ACUTE RENAL FAILURE, ALSO DUE TO CELLULITIS OF LEGS. -ADMITTED AND INTUBATED X 1 MONTH IN SEPTEMBER 2019 FOR BILATERAL PNEUMONIA AND ARDS. HISTORY OF OPIATE ABUSE/ADDICTION--HAS BEEN ON SUBOXONE, BUT STATES SHE CANNOT AFFORD IT AND IS NO LONGER TAKING IT OF 03/11/21 Review of Systems Constitutional: weakness EENTM: no symptoms reported Respiratory: cough, phlegm, short of breath Cardiovascular: no symptoms reported Gastrointestinal: no symptoms reported Genitourinary: no symptoms reported Musculoskeletal: no symptoms reported Skin: no symptoms reported Psychiatric/Neurological: No Symptoms Reported Physical Exam Physical Exam Vital Signs Vital Signs - First Documented 05/23/21 05/23/21 05/23/21 05:14 07:15 08:45 Temp 36.5 Pulse 104 Resp 24 B/P (MAP) 139/65 (89) Pulse Ox 56 O2 Delivery Room Air O2 Flow Rate 50.00 FiO2 45 Capillary Refill : Less Than 3 Seconds Height, Weight, BMI Height: 5'5.00" Weight: 218lbs. 0.0oz. 98.484012um; 29.71 BMI Method:Stated General Appearance: No Apparent Distress, WD/WN HEENT: PERRL/EOMI, Other (Wearing BiPAP mask) Neck: Normal Inspection, Supple Respiratory: No Respiratory Distress, Wheezing Cardiovascular: Regular Rate, Rhythm, No Edema, No Murmur Gastrointestinal: Normal Bowel Sounds, Non Tender, Soft Extremity: Normal Inspection, Non Tender, Pedal Edema (Trace) Neurologic/Psychiatric: Alert, Oriented x3, Motor Weakness Skin: Normal Color, Warm/Dry Lymphatic: No Adenopathy Results Results/Procedures Labs Laboratory Tests 05/23/21 05:30 Patient resulted labs reviewed. Imaging: Reviewed Imaging Report Assessment/Plan Admission Diagnosis Sepsis due to pneumonia Admission Status: Inpatient Order (span 2 midnights) Reason for Inpatient Admission: IV antibiotics and fluids Assessment and Plan Sepsis due to pneumonia Acute on chronic respiratory failure with hypoxia COPD with exacerbation SIRS+ with leukocytosis and tachycardia Chest x-ray with right lower lobe pneumonia Procalcitonin elevated Blood cultures pending Lactic acid normal Started on cefepime Started on BiPAP Likely able to transition to Vapotherm or nasal cannula Steroids MAT protocol Pulmonary embolism Recently diagnosed Continue Eliquis AFib HTN Continue home meds Obesity Clinically significant, no acute management needs Debility PT/OT Multiple recent admissions Will likely need placement Social work consulted DVT ppx: Already receiving therapeutic anticoagulation Diagnosis/Problems Diagnosis/Problems (1) Sepsis Status: Acute (2) Pneumonia Status: Acute (3) Acute kidney failure Status: Acute (4) COPD with exacerbation Status: Acute SAPPHIRE DIAMOND MD May 23, 2021 13:23
[2021-05-23] MEDS ORDERED: methylPREDNISolone 125 MG (Solu-MEDROL) VIAL IVP NR (13:30)
[2021-05-23] MEDS: CEFEPIME 1,000 MG/SWFI 10 ML IV PUSH IV SCH ×4 (14:01→23:00)
[2021-05-23] MEDS: RT-ALBUTEROL/IPRATROPIUM 3 ML (DUONEB) VIAL INH SCH ×3 (14:47→21:05)
[2021-05-23] MEDS ORDERED: METO50TA15 PO (14:51)
[2021-05-23] MEDS ORDERED: OXYC10TA7 PO (14:51)
[2021-05-23] MEDS ORDERED: TR1C15 TP (15:20)
[2021-05-23] MEDS ORDERED: NYST15CR TP (15:20)
[2021-05-24] MEDS: RT-ALBUTEROL/IPRATROPIUM 3 ML (DUONEB) VIAL INH SCH ×3 (02:50→10:22)
[2021-05-24 03:24] LABS: BASOPHILS % (AUTO) 0 % (0-10); EOSINOPHILS % (AUTO) 0 % (0-10); HEMATOCRIT 25 % (35-52); HEMOGLOBIN 7.4 g/dL (11.5-16.0); LYMPHOCYTES # (AUTO) 0.3 10^3/uL (1.0-4.0); LYMPHOCYTES % (AUTO) 6 % (12-44); MEAN CORPUSCULAR HEMOGLOBIN 29 pg (25-34); MEAN CORPUSCULAR HGB CONC 29 g/dL (32-36); MEAN CORPUSCULAR VOLUME 98 fL (80-99); MEAN PLATELET VOLUME 9.4 fL (9.0-12.2); MONOCYTES # (AUTO) 0.1 10^3/uL (0.0-1.0); MONOCYTES % (AUTO) 2 % (0-12); NEUTROPHILS # (AUTO) 5.6 10^3/uL (1.8-7.8); NEUTROPHILS % (AUTO) 91 % (42-75); PLATELET COUNT 238 10^3/uL (130-400); WHITE BLOOD COUNT 6.2 10^3/uL (4.3-11.0)
[2021-05-24 03:53] LABS: ALBUMIN 3.1 GM/DL (3.2-4.5)
[2021-05-24 03:55] LABS: CALCIUM 9.1 MG/DL (8.5-10.1)
[2021-05-24 03:58] LABS: BILIRUBIN,TOTAL 0.3 MG/DL (0.1-1.0)
[2021-05-24 04:00] LABS: CREATININE SERUM 1.02 MG/DL (0.60-1.30)
[2021-05-24] MEDS: LACTATED RINGERS 1,000 ML IV SCH ×3 (04:08→14:50)
[2021-05-24] MEDS ORDERED: predniSONE 20 MG TAB PO SCH (07:00)
[2021-05-24] MEDS: CEFEPIME 1,000 MG/SWFI 10 ML IV PUSH IV SCH ×6 (07:17→19:09)
[2021-05-24] MEDS ORDERED: APIXABAN 5 MG (ELIQUIS) TABLET PO ONE (09:15)
--- NOTE | 2021-05-24 13:59 | Progress Note - Hospitalist ---
Subjective HPI/CC On Admission Date Seen by Provider: May 24, 2021 Time Seen by Provider: 09:20 Helene Hicks is a 56-year-old female well-known to the medical service with multiple recent hospitalizations who presented with shortness of breath. She had also been feeling weak. She reports that she had been wearing her oxygen alth ough the EMS reported that they did not see tanks or concentrator. She reports that she has been taking her Eliquis for a recently diagnosed PE. She denies fevers. She does have a cough. She has had sputum production. She denies any chest pain. She denies nausea and vomiting. She denies diarrhea. Her leg swelling has improved. Subjective/Events-last exam She is short of breath. She is having coughing fits. She denies pain. She still has an appetite. She denies nausea and vomiting. She was exposed to her daughter recently who had Covid. Focused Exam Lactate Level 05/23/21 05:30: Lactic Acid Level 0.66 05/23/21 10:04: Lactic Acid Level 0.80 Objective Exam Vital Signs Vital Signs Date Time Temp Pulse Resp B/P (MAP) Pulse Ox O2 Delivery O2 Flow Rate FiO2 05/24/21 10:22 91 Vapotherm 20.00 100 05/24/21 07:32 35.6 73 13 114/65 (81) Capillary Refill : Less Than 3 Seconds General Appearance: No Apparent Distress, Obese Respiratory: No Respiratory Distress, Decreased Breath Sounds, Wheezing Cardiovascular: No Edema, No Murmur, Tachycardia Gastrointestinal: Normal Bowel Sounds, Non Tender, Soft Extremity: Normal Inspection, Pedal Edema Neurologic/Psychiatric: Alert, Oriented x3, Normal Mood/Affect Skin: Normal Color, Warm/Dry Lymphatic: No Adenopathy Results/Procedures Lab Laboratory Tests 05/24/21 03:12 Patient resulted labs reviewed. Imaging: Reviewed Imaging Report Assessment/Plan Assessment and Plan Assess & Plan/Chief Complaint Acute respiratory failure due to COVID-19 Sepsis due to pneumonia Acute on chronic respiratory failure with hypoxia COPD with exacerbation Covid positive Continue Cefepime Requiring Vapotherm, 30 L 100% Transition to Decadron Begin Baricitinib, discussed risk/benefits/EUA use and patient agrees MAT protocol Pulmonary embolism Recently diagnosed Continue Eliquis AFib HTN Continue home meds Obesity Clinically significant, no acute management needs Debility PT/OT Multiple recent admissions Will likely need placement Social work consulted DVT ppx: Already receiving therapeutic anticoagulation Diagnosis/Problems Diagnosis/Problems (1) Acute respiratory failure due to COVID-19 Status: Acute (2) Sepsis Status: Acute (3) Pneumonia Status: Acute (4) Acute kidney failure Status: Acute (5) COPD with exacerbation Status: Acute (6) Lymphopenia associated with COVID-19 Status: Acute ACE DIAMOND MD May 24, 2021 13:59
[2021-05-24] MEDS ORDERED: BARICITINIB 2 MG (OLUMIANT)TABLET PO NR (14:00)
[2021-05-24] MEDS: RT-ALBUTEROL HFA 8.5 GM INHALER IH SCH ×2 (19:06→21:46)
[2021-05-24] MEDS: APIXABAN 5 MG (ELIQUIS) TABLET PO SCH (20:39)
[2021-05-24] MEDS ORDERED: lisINopril 10 MG (PRINIVIL) TABLET PO PRN (21:15)
[2021-05-24] MEDS: GABAPENTIN 600 MG (NEURONTIN) TAB PO SCH (22:17)
[2021-05-24] MEDS: meTOprolol TARTRATE 50 MG (LOPRESSOR) TAB PO SCH (22:17)
[2021-05-25] MEDS: CEFEPIME 1,000 MG/SWFI 10 ML IV PUSH IV SCH ×8 (01:35→18:16)
[2021-05-25] MEDS: LACTATED RINGERS 1,000 ML IV SCH ×3 (01:35→16:31)
[2021-05-25] MEDS: RT-ALBUTEROL HFA 8.5 GM INHALER IH SCH ×6 (02:38→22:49)
[2021-05-25 04:41] LABS: BASOPHILS % (AUTO) 0 % (0-10); EOSINOPHILS % (AUTO) 0 % (0-10); HEMATOCRIT 25 % (35-52); HEMOGLOBIN 7.1 g/dL (11.5-16.0); LYMPHOCYTES # (AUTO) 0.6 10^3/uL (1.0-4.0); LYMPHOCYTES % (AUTO) 8 % (12-44); MEAN CORPUSCULAR HEMOGLOBIN 28 pg (25-34); MEAN CORPUSCULAR HGB CONC 28 g/dL (32-36); MEAN CORPUSCULAR VOLUME 100 fL (80-99); MEAN PLATELET VOLUME 9.4 fL (9.0-12.2); MONOCYTES # (AUTO) 0.2 10^3/uL (0.0-1.0); MONOCYTES % (AUTO) 3 % (0-12); NEUTROPHILS # (AUTO) 7.5 10^3/uL (1.8-7.8); NEUTROPHILS % (AUTO) 88 % (42-75); PLATELET COUNT 246 10^3/uL (130-400); WHITE BLOOD COUNT 8.4 10^3/uL (4.3-11.0)
[2021-05-25 04:49] LABS: ALBUMIN 3.1 GM/DL (3.2-4.5)
[2021-05-25 04:50] LABS: POTASSIUM 4.4 MMOL/L (3.6-5.0)
[2021-05-25 04:51] LABS: CALCIUM 9.3 MG/DL (8.5-10.1)
[2021-05-25 04:52] LABS: TOTAL PROTEIN 5.9 GM/DL (6.4-8.2)
[2021-05-25 04:54] LABS: BILIRUBIN,TOTAL 0.2 MG/DL (0.1-1.0)
[2021-05-25 04:55] LABS: CREATININE SERUM 0.9 MG/DL (0.60-1.30)
[2021-05-25] MEDS: BARICITINIB 2 MG (OLUMIANT)TABLET PO SCH (08:32)
[2021-05-25] MEDS: FLUoxetine HCL 10 MG (PROzac) CAPSULE/TABLET PO SCH (08:33)
[2021-05-25] MEDS: dexAMETHasone 6 MG TAB (DECADRON) PO SCH (08:33)
[2021-05-25] MEDS: meTOprolol TARTRATE 50 MG (LOPRESSOR) TAB PO SCH ×2 (08:33→20:27)
[2021-05-25] MEDS: GABAPENTIN 600 MG (NEURONTIN) TAB PO SCH ×3 (08:33→20:27)
[2021-05-25] MEDS: ASPIRIN 81 MG CHEW (CHILDREN'S ASA) PO SCH (08:33)
[2021-05-25] MEDS: dilTIAZem120 MG (CARDIZEM CD) CAP PO SCH (08:33)
[2021-05-25] MEDS: FUROSEMIDE 40 MG (LASIX) TAB PO SCH (08:34)
[2021-05-25] MEDS: APIXABAN 5 MG (ELIQUIS) TABLET PO SCH ×2 (08:34→20:27)
[2021-05-25] MEDS ORDERED: GABAPENTIN 600 MG (NEURONTIN) TAB PO SCH (09:00)
[2021-05-25] MEDS ORDERED: meTOprolol TARTRATE 50 MG (LOPRESSOR) TAB PO SCH (09:00)
[2021-05-25] MEDS: UMECLIDINIUM BROMIDE (INCRUSE ELLIPTA) 7'S IH SCH (10:28)
--- NOTE | 2021-05-25 13:25 | Progress Note - Hospitalist ---
Subjective HPI/CC On Admission Date Seen by Provider: May 25, 2021 Time Seen by Provider: 10:10 Helene Hicks is a 56-year-old female well-known to the medical service with multiple recent hospitalizations who presented with shortness of breath. She had also been feeling weak. She reports that she had been wearing her oxygen alth ough the EMS reported that they did not see tanks or concentrator. She reports that she has been taking her Eliquis for a recently diagnosed PE. She denies fevers. She does have a cough. She has had sputum production. She denies any chest pain. She denies nausea and vomiting. She denies diarrhea. Her leg swelling has improved. Subjective/Events-last exam She is feeling a bit better today. Her shortness of breath is improved. She still has a cough. She has lost her sense of taste and smell. Focused Exam Lactate Level 05/23/21 05:30: Lactic Acid Level 0.66 05/23/21 10:04: Lactic Acid Level 0.80 Objective Exam Vital Signs Vital Signs Date Time Temp Pulse Resp B/P (MAP) Pulse Ox O2 Delivery O2 Flow Rate FiO2 05/25/21 11:21 38.6 87 18 132/82 (99) 93 Vapotherm 30.00 60.00 05/25/21 10:31 60 Capillary Refill : Less Than 3 Seconds General Appearance: No Apparent Distress, Obese Respiratory: No Respiratory Distress, Decreased Breath Sounds Cardiovascular: Regular Rate, Rhythm, No Edema, No Murmur Gastrointestinal: Normal Bowel Sounds, Non Tender, Soft Extremity: Normal Inspection, Non Tender, No Pedal Edema Neurologic/Psychiatric: Alert, Oriented x3, No Motor/Sensory Deficits, Normal Mood/Affect Skin: Normal Color, Warm/Dry Results/Procedures Lab Laboratory Tests 05/25/21 04:20 Patient resulted labs reviewed. Imaging: Reviewed Imaging Report Assessment/Plan Assessment and Plan Assess & Plan/Chief Complaint Acute respiratory failure due to COVID-19 Secondary bacterial pneumonia Acute on chronic respiratory failure with hypoxia COPD with exacerbation Covid positive Continue Cefepime Requiring Vapotherm, 30 L 60%, slightly improved Continue Decadron Continue baricitinib MAT protocol Pulmonary embolism Recently diagnosed Continue Eliquis AFib HTN Continue home meds Obesity Clinically significant, no acute management needs Debility PT/OT Multiple recent admissions Will likely need placement Social work consulted DVT ppx: Already receiving therapeutic anticoagulation Diagnosis/Problems Diagnosis/Problems (1) Acute respiratory failure due to COVID-19 Status: Acute (2) Sepsis Status: Acute (3) Pneumonia Status: Acute (4) Acute kidney failure Status: Acute (5) COPD with exacerbation Status: Acute (6) Lymphopenia associated with COVID-19 Status: Acute ACE DIAMOND MD May 25, 2021 13:25
[2021-05-25] MEDS: ACETAMINOPHEN 325 MG TABLET PO PRN (13:38)
[2021-05-25] MEDS: RT-BUDESONIDE NEBS 0.5 MG/2ML (PULMICORT) AMP IH SCH (22:46)
[2021-05-25] MEDS: NON-FORMULARY MEDICATION 1 EA EA (Budesonide/Glycopyr/Formoterol (Breztri Aerosphere Inhal INH SCH (22:47)
[2021-05-26] MEDS: CEFEPIME 1,000 MG/SWFI 10 ML IV PUSH IV SCH ×8 (00:45→17:37)
[2021-05-26] MEDS: LACTATED RINGERS 1,000 ML IV SCH ×2 (01:11→09:47)
[2021-05-26] MEDS: ACETAMINOPHEN 325 MG TABLET PO PRN (01:12)
[2021-05-26] MEDS: RT-ALBUTEROL HFA 8.5 GM INHALER IH SCH ×6 (02:42→21:06)
[2021-05-26 04:19] LABS: BASOPHILS % (AUTO) 0 % (0-10); EOSINOPHILS % (AUTO) 0 % (0-10); HEMATOCRIT 21 % (35-52); LYMPHOCYTES # (AUTO) 0.6 10^3/uL (1.0-4.0); LYMPHOCYTES % (AUTO) 9 % (12-44); MEAN CORPUSCULAR HEMOGLOBIN 29 pg (25-34); MEAN CORPUSCULAR HGB CONC 29 g/dL (32-36); MEAN CORPUSCULAR VOLUME 100 fL (80-99); MEAN PLATELET VOLUME 9.7 fL (9.0-12.2); MONOCYTES # (AUTO) 0.2 10^3/uL (0.0-1.0); MONOCYTES % (AUTO) 3 % (0-12); NEUTROPHILS # (AUTO) 6.4 10^3/uL (1.8-7.8); NEUTROPHILS % (AUTO) 88 % (42-75); PLATELET COUNT 226 10^3/uL (130-400); WHITE BLOOD COUNT 7.3 10^3/uL (4.3-11.0)
[2021-05-26 04:40] LABS: ALBUMIN 2.9 GM/DL (3.2-4.5); POTASSIUM 4.5 MMOL/L (3.6-5.0)
[2021-05-26 04:41] LABS: CALCIUM 9.1 MG/DL (8.5-10.1)
[2021-05-26 04:43] LABS: TOTAL PROTEIN 5.6 GM/DL (6.4-8.2)
[2021-05-26 04:44] LABS: BILIRUBIN,TOTAL 0.2 MG/DL (0.1-1.0)
[2021-05-26 04:46] LABS: CREATININE SERUM 1.02 MG/DL (0.60-1.30)
[2021-05-26] MEDS ORDERED: NS IV 500 ML 500 ML IV SCH (05:15)
[2021-05-26] MEDS: FUROSEMIDE 40 MG (LASIX) TAB PO SCH (06:22)
[2021-05-26] MEDS: dexAMETHasone 6 MG TAB (DECADRON) PO SCH (06:22)
[2021-05-26] MEDS: UMECLIDINIUM BROMIDE (INCRUSE ELLIPTA) 7'S IH SCH (07:29)
[2021-05-26] MEDS ORDERED: NS IV 500 ML 500 ML ONE (09:07)
[2021-05-26 09:28] VITALS: BP 125/63
[2021-05-26] MEDS: dilTIAZem120 MG (CARDIZEM CD) CAP PO SCH (09:46)
[2021-05-26] MEDS: BARICITINIB 2 MG (OLUMIANT)TABLET PO SCH (09:46)
[2021-05-26] MEDS: ASPIRIN 81 MG CHEW (CHILDREN'S ASA) PO SCH (09:46)
[2021-05-26] MEDS: meTOprolol TARTRATE 50 MG (LOPRESSOR) TAB PO SCH ×2 (09:47→20:09)
[2021-05-26] MEDS: GABAPENTIN 600 MG (NEURONTIN) TAB PO SCH ×3 (09:47→20:09)
[2021-05-26] MEDS: APIXABAN 5 MG (ELIQUIS) TABLET PO SCH ×2 (09:47→20:09)
[2021-05-26] MEDS: FLUoxetine HCL 10 MG (PROzac) CAPSULE/TABLET PO SCH (09:47)
[2021-05-26 09:52] VITALS: BP 127/63
[2021-05-26] MEDS: RT-BUDESONIDE NEBS 0.5 MG/2ML (PULMICORT) AMP IH SCH (10:58)
[2021-05-26] MEDS: NON-FORMULARY MEDICATION 1 EA EA (Budesonide/Glycopyr/Formoterol (Breztri Aerosphere Inhal INH SCH (10:59)
[2021-05-26 12:43] VITALS: BP 123/67
[2021-05-26 15:15] LABS: HEMOGLOBIN 7.6 g/dL (11.5-16.0)
--- NOTE | 2021-05-26 15:29 | Progress Note - Hospitalist ---
Subjective HPI/CC On Admission Date Seen by Provider: May 26, 2021 Time Seen by Provider: 11:15 Heleen Hicks is a 56-year-old female well-known to the medical service with multiple recent hospitalizations who presented with shortness of breath. She had also been feeling weak. She reports that she had been wearing her oxygen alth ough the EMS reported that they did not see tanks or concentrator. She reports that she has been taking her Eliquis for a recently diagnosed PE. She denies fevers. She does have a cough. She has had sputum production. She denies any chest pain. She denies nausea and vomiting. She denies diarrhea. Her leg swelling has improved. Subjective/Events-last exam She is feeling a little better. She has not been eating and drinking much. She is wondering how long she will be in the hospital. Objective Exam Vital Signs Vital Signs Date Time Temp Pulse Resp B/P (MAP) Pulse Ox O2 Delivery O2 Flow Rate FiO2 05/26/21 15:06 93 Vapotherm 25.00 60 05/26/21 12:43 36.8 66 18 123/67 Capillary Refill : Less Than 3 Seconds General Appearance: No Apparent Distress, WD/WN HEENT: PERRL/EOMI, Pharynx Normal Neck: Normal Inspection, Supple Respiratory: No Respiratory Distress, Wheezing Cardiovascular: Regular Rate, Rhythm, No Edema, No Murmur Gastrointestinal: Normal Bowel Sounds, Non Tender, Soft Extremity: Normal Inspection, Non Tender, No Pedal Edema Neurologic/Psychiatric: Alert, Oriented x3 Skin: Normal Color, Warm/Dry Results/Procedures Lab Laboratory Tests 05/26/21 04:10 05/26/21 15:05 Patient resulted labs reviewed. Imaging: Reviewed Imaging Report Assessment/Plan Assessment and Plan Assess & Plan/Chief Complaint Acute respiratory failure due to COVID-19 Secondary bacterial pneumonia Acute on chronic respiratory failure with hypoxia COPD with exacerbation Covid positive Continue Decadron Continue baricitinib Procalcitonin elevated Continue Cefepime Requiring Vapotherm, 25 L 60%, stable MAT protocol Pulmonary embolism Recently diagnosed Continue Eliquis AFib HTN Continue home meds Obesity Clinically significant, no acute management needs Debility PT/OT Multiple recent admissions Will likely need placement Social work consulted DVT ppx: Already receiving therapeutic anticoagulation Diagnosis/Problems Diagnosis/Problems (1) Acute respiratory failure due to COVID-19 Status: Acute (2) Sepsis Status: Acute (3) Pneumonia Status: Acute (4) Acute kidney failure Status: Acute (5) COPD with exacerbation Status: Acute (6) Lymphopenia associated with COVID-19 Status: Acute ACE DIAMOND MD May 26, 2021 15:28
[2021-05-27] MEDS: CEFEPIME 1,000 MG/SWFI 10 ML IV PUSH IV SCH ×8 (01:35→18:10)
[2021-05-27] MEDS: RT-ALBUTEROL HFA 8.5 GM INHALER IH SCH ×4 (02:25→21:15)
[2021-05-27 03:42] VITALS: BP 162/70
[2021-05-27 05:36] LABS: BASOPHILS % (AUTO) 0 % (0-10); EOSINOPHILS % (AUTO) 0 % (0-10); HEMATOCRIT 26 % (35-52); HEMOGLOBIN 7.6 g/dL (11.5-16.0); LYMPHOCYTES # (AUTO) 0.8 10^3/uL (1.0-4.0); LYMPHOCYTES % (AUTO) 10 % (12-44); MEAN CORPUSCULAR HEMOGLOBIN 29 pg (25-34); MEAN CORPUSCULAR HGB CONC 29 g/dL (32-36); MEAN CORPUSCULAR VOLUME 98 fL (80-99); MEAN PLATELET VOLUME 9.3 fL (9.0-12.2); MONOCYTES # (AUTO) 0.3 10^3/uL (0.0-1.0); MONOCYTES % (AUTO) 3 % (0-12); NEUTROPHILS # (AUTO) 6.6 10^3/uL (1.8-7.8); NEUTROPHILS % (AUTO) 86 % (42-75); PLATELET COUNT 217 10^3/uL (130-400); WHITE BLOOD COUNT 7.7 10^3/uL (4.3-11.0)
[2021-05-27 05:47] LABS: ALBUMIN 3.2 GM/DL (3.2-4.5)
[2021-05-27 05:48] LABS: POTASSIUM 4.8 MMOL/L (3.6-5.0)
[2021-05-27 05:49] LABS: CALCIUM 9.7 MG/DL (8.5-10.1)
[2021-05-27 05:50] LABS: TOTAL PROTEIN 6.2 GM/DL (6.4-8.2)
[2021-05-27 05:52] LABS: BILIRUBIN,TOTAL 0.2 MG/DL (0.1-1.0)
[2021-05-27 05:54] LABS: CREATININE SERUM 1.14 MG/DL (0.60-1.30)
[2021-05-27] MEDS: FUROSEMIDE 40 MG (LASIX) TAB PO SCH (05:58)
[2021-05-27] MEDS: dexAMETHasone 6 MG TAB (DECADRON) PO SCH (05:58)
[2021-05-27] MEDS: UMECLIDINIUM BROMIDE (INCRUSE ELLIPTA) 7'S IH SCH (08:23)
[2021-05-27] MEDS: APIXABAN 5 MG (ELIQUIS) TABLET PO SCH ×2 (08:49→20:33)
[2021-05-27] MEDS: FLUoxetine HCL 10 MG (PROzac) CAPSULE/TABLET PO SCH (08:49)
[2021-05-27] MEDS: ASPIRIN 81 MG CHEW (CHILDREN'S ASA) PO SCH (08:50)
[2021-05-27] MEDS: dilTIAZem120 MG (CARDIZEM CD) CAP PO SCH (08:50)
[2021-05-27] MEDS: meTOprolol TARTRATE 50 MG (LOPRESSOR) TAB PO SCH ×2 (08:50→20:33)
[2021-05-27] MEDS: GABAPENTIN 600 MG (NEURONTIN) TAB PO SCH ×3 (08:50→20:33)
[2021-05-27] MEDS: BARICITINIB 2 MG (OLUMIANT)TABLET PO SCH (08:51)
--- NOTE | 2021-05-27 10:07 | Physical Therapy Evaluation ---
PT Evaluation-General Medical Diagnosis Admission Date May 23, 2021 at 07:09 Medical Diagnosis: Covid Onset Date: May 23, 2021 Therapy Diagnosis Therapy Diagnosis: debility Height/Weight Height (Feet): 5 Height (Inches): 5.00 Weight (Pounds): 218 Weight (Ounces): 0.0 Precautions Precautions/Isolations: Airborne Isolation, Contact Isolation, Droplet Isolation Referral Physician: Unruly Reason for Referral: Evaluation/Treatment Medical History Pertinent Medical History: Atrial Fib, Alcoholism, COPD, GERD, Heart Failure, HTN, Renal Insufficiency, Smoking Current History EMS secondary to hypoxia Reviewed History: Yes Social History Home: Single Level Current Living Status: Children Prior Prior Level of Function SCALE: Activities may be completed with or without assistive devices. 7-Kuovogatqq-mmhsyjs completes the activity by him/herself with no assistance from a helper. 5-Set-up or Clean-up Assistance-helper sets up or cleans up; patient completes activity. [place] assists only prior to or following the activity. 4-Supervision or Touching Assistance-helper provides verbal cues and/or touching/steadying and/or contact guard assistance as patient completes activity. Assistance may be provided throughout the activity or intermittently. 3-Partial/Moderate Assistance-helper does LESS THAN HALF the effort. [place] lifts, holds or supports trunk or limbs, but provides less than half the effort. 2-Substantial/Maximal Assistance-helper does MORE THAN HALF the effort. [place] lifts or holds trunk or limbs and provides more than half the effort. 1-Fvzffrojo-acrxeh does ALL the effort. Patient does none of the effort to complete the activity. Or, the assistance of 2 or more helpers is required for the patient to complete the activity. If activity was not attempted, code reason: 7-Patient Refused. 9-Not Applicable-not attempted and the patient did not perform the activity before the current illness, exacerbation or injury. 10-Not Attempted due to Environmental Limitations-(lack of equipment, weather restraints, etc.). 88-Not Attempted due to Medical Conditions or Safety Concerns. Bed Mobility: 6 Transfers (B,C,W/C): 6 Gait: 6 Stairs: 6 Indoor Mobility (Ambulation): Independent Stairs: Independent Prior Device Use: cane PT Evaluation-Current Subjective Patient agrees to PT. Objective Patient Orientation: Normal For Age Attachments: Oxygen (vapotherm) ROM/Strength ROM Lower Extremities bilateral LE WFL Strength Lower Extremities 4/5 grossly bilateral LE Integumentary/Posture Bowel Incontinence: No Bladder Incontinence: No Posture WFL Neuromuscular (Tone, Coordination, Reflexes) grossly intact Sensory Vision: Functional Hearing: Functional Transfers Roll Left to Right (QC): 6 Sit to Lying (QC): 6 Lying to Sitting/Side of Bed(Q: 6 Sit to Stand (QC): 6 Chair/Qxg-rw-Jofhg Xfer(QC): 6 Gait Does the Patient Walk?: Yes Mode of Locomotion: Walk Anticipated Mode of Locomotion: Walk Walk 10 feet (QC): 6 Distance: 10' x 5 Gait Assistive Device: None Comments/Gait Description safe and functional with no deviation Balance Sitting Static: Normal Sitting Dynamic: Normal Standing Static: Normal Standing Dynamic: Normal Treatment standing marching x 50 reps (SAO2 87% on vapotherm) Assessment/Needs 56 y.o. female, is currently at independent [facility] with all gross motor skills and is highly aware of exercise program due to multiple hospital admits. No skilled PT indicated. Rehab Potential: Fair PT Plan Treatment/Plan Treatment Plan: Discontinue PT Treatment Duration: May 27, 2021 Frequency: 1 time per week Estimated Hrs Per Day: .25 hour per day Patient and/or Family Agrees t: Yes Time/GCodes Time In: 855 Time Out: 911 Total Billed Treatment Time: 16 Total Billed Treatment 1 visit EVMod 16 min MERVIN PETERSON PT May 27, 2021 10:07
[2021-05-27] MEDS: RT-BUDESONIDE NEBS 0.5 MG/2ML (PULMICORT) AMP IH SCH (14:30)
--- NOTE | 2021-05-27 15:11 | Progress Note - Hospitalist ---
Subjective HPI/CC On Admission Date Seen by Provider: May 27, 2021 Time Seen by Provider: 11:50 Helene Hicks is a 56-year-old female well-known to the medical service with multiple recent hospitalizations who presented with shortness of breath. She had also been feeling weak. She reports that she had been wearing her oxygen alth ough the EMS reported that they did not see tanks or concentrator. She reports that she has been taking her Eliquis for a recently diagnosed PE. She denies fevers. She does have a cough. She has had sputum production. She denies any chest pain. She denies nausea and vomiting. She denies diarrhea. Her leg swelling has improved. Subjective/Events-last exam She is doing about the same. She is sitting at the edge of her bed with her headphones on. She does not feel short of breath. Objective Exam Vital Signs Vital Signs Date Time Temp Pulse Resp B/P (MAP) Pulse Ox O2 Delivery O2 Flow Rate FiO2 05/27/21 14:40 94 Vapotherm 30.00 65 05/27/21 11:29 36.7 68 20 156/74 (101) Capillary Refill : Less Than 3 Seconds General Appearance: No Apparent Distress, Chronically ill Respiratory: Lungs Clear, Normal Breath Sounds, No Respiratory Distress Cardiovascular: Regular Rate, Rhythm, No Edema, No Murmur Gastrointestinal: Normal Bowel Sounds, Non Tender, Soft Extremity: Normal Inspection, Pedal Edema Neurologic/Psychiatric: Alert, Oriented x3, Normal Mood/Affect Skin: Normal Color, Warm/Dry Results/Procedures Lab Laboratory Tests 05/26/21 15:05 05/27/21 05:25 Patient resulted labs reviewed. Imaging: Reviewed Imaging Report Assessment/Plan Assessment and Plan Assess & Plan/Chief Complaint Acute respiratory failure due to COVID-19 Secondary bacterial pneumonia Acute on chronic respiratory failure with hypoxia COPD with exacerbation Covid positive Continue Decadron Continue baricitinib Procalcitonin elevated Continue Cefepime Requiring Vapotherm, 25 L 60%, stable MAT protocol Pulmonary embolism Recently diagnosed Continue Eliquis AFib HTN Continue home meds Obesity Clinically significant, no acute management needs Debility PT/OT Multiple recent admissions Will likely need placement Social work consulted DVT ppx: Already receiving therapeutic anticoagulation Diagnosis/Problems Diagnosis/Problems (1) Acute respiratory failure due to COVID-19 Status: Acute (2) Sepsis Status: Acute (3) Pneumonia Status: Acute (4) Acute kidney failure Status: Acute (5) COPD with exacerbation Status: Acute (6) Lymphopenia associated with COVID-19 Status: Acute ACE DIAMOND MD May 27, 2021 15:11
--- NOTE | 2021-05-27 16:12 | Occ Therapy Progress Note ---
Therapy Progress Note OT order received, chart reviewed. OT went in and talked with pt. This pt. is well known to this therapist. Pt. very pleasant. Sitting independently on side of bed. Pt. on vapotherm. States that she is able to get up to toilet independently, get to her chair, and she is cleaning self up independently. Due to vapotherm, pt. unable to fully ambulate in her room, but she is independent within her available range. OT provides pt. with red theraband, and pt. ve rbalizes independent understanding of exercises from previous hospitalizations. Pt. will continue with exercises to work on overall endurance and strength. At this time, pt. demonstrates no further OT needs due to current independence level in room. Thank you for this referral. 1, visit [id number] YURI JOHNSON OT May 27, 2021 16:12
[2021-05-27] MEDS: RT--FLUTICASONE/SALMETEROL 113-14 (AIRDUO RespiCLICK) IH SCH (21:16)
[2021-05-28] MEDS: RT-ALBUTEROL HFA 8.5 GM INHALER IH SCH ×4 (02:29→20:45)
[2021-05-28] MEDS: dexAMETHasone 6 MG TAB (DECADRON) PO SCH (06:04)
[2021-05-28] MEDS: FUROSEMIDE 40 MG (LASIX) TAB PO SCH (06:04)
[2021-05-28 06:10] LABS: BASOPHILS % (AUTO) 0 % (0-10); EOSINOPHILS % (AUTO) 0 % (0-10); HEMATOCRIT 28 % (35-52); HEMOGLOBIN 8.1 g/dL (11.5-16.0); LYMPHOCYTES # (AUTO) 0.6 10^3/uL (1.0-4.0); LYMPHOCYTES % (AUTO) 7 % (12-44); MEAN CORPUSCULAR HEMOGLOBIN 29 pg (25-34); MEAN CORPUSCULAR HGB CONC 29 g/dL (32-36); MEAN CORPUSCULAR VOLUME 99 fL (80-99); MEAN PLATELET VOLUME 9.7 fL (9.0-12.2); MONOCYTES # (AUTO) 0.2 10^3/uL (0.0-1.0); MONOCYTES % (AUTO) 2 % (0-12); NEUTROPHILS # (AUTO) 7.1 10^3/uL (1.8-7.8); NEUTROPHILS % (AUTO) 90 % (42-75); PLATELET COUNT 251 10^3/uL (130-400); WHITE BLOOD COUNT 7.9 10^3/uL (4.3-11.0)
[2021-05-28 06:22] LABS: ALBUMIN 3.5 GM/DL (3.2-4.5)
[2021-05-28 06:23] LABS: POTASSIUM 4.1 MMOL/L (3.6-5.0)
[2021-05-28 06:24] LABS: CALCIUM 9.9 MG/DL (8.5-10.1)
[2021-05-28 06:25] LABS: TOTAL PROTEIN 6.6 GM/DL (6.4-8.2)
[2021-05-28 06:27] LABS: BILIRUBIN,TOTAL 0.3 MG/DL (0.1-1.0)
[2021-05-28 06:29] LABS: CREATININE SERUM 1.08 MG/DL (0.60-1.30)
[2021-05-28 07:05] LABS: BAND NEUTROPHILS 2 %; LYMPHOCYTES % (MANUAL) 5 %; MONOCYTES % (MANUAL) 1 %; NEUTROPHILS % (MANUAL) 92 %
[2021-05-28 07:06] LABS: ANISOCYTOSIS SLIGHT; HYPOCHROMASIA SLIGHT
[2021-05-28] MEDS: UMECLIDINIUM BROMIDE (INCRUSE ELLIPTA) 7'S IH SCH (09:04)
[2021-05-28] MEDS: BARICITINIB 2 MG (OLUMIANT)TABLET PO SCH (09:05)
[2021-05-28] MEDS: ASPIRIN 81 MG CHEW (CHILDREN'S ASA) PO SCH (09:05)
[2021-05-28] MEDS: APIXABAN 5 MG (ELIQUIS) TABLET PO SCH ×2 (09:05→21:36)
[2021-05-28] MEDS: GABAPENTIN 600 MG (NEURONTIN) TAB PO SCH ×3 (09:05→21:35)
[2021-05-28] MEDS: FLUoxetine HCL 10 MG (PROzac) CAPSULE/TABLET PO SCH (09:05)
[2021-05-28] MEDS: dilTIAZem120 MG (CARDIZEM CD) CAP PO SCH (09:05)
[2021-05-28] MEDS: meTOprolol TARTRATE 50 MG (LOPRESSOR) TAB PO SCH ×2 (09:05→21:36)
[2021-05-28] MEDS: RT--FLUTICASONE/SALMETEROL 113-14 (AIRDUO RespiCLICK) IH SCH ×2 (09:22→20:48)
--- NOTE | 2021-05-28 14:13 | Progress Note - Hospitalist ---
Subjective HPI/CC On Admission Date Seen by Provider: May 28, 2021 Time Seen by Provider: 14:10 Helene Hicks is a 56-year-old female well-known to the medical service with multiple recent hospitalizations who presented with shortness of breath. She had also been feeling weak. She reports that she had been wearing her oxygen alth ough the EMS reported that they did not see tanks or concentrator. She reports that she has been taking her Eliquis for a recently diagnosed PE. She denies fevers. She does have a cough. She has had sputum production. She denies any chest pain. She denies nausea and vomiting. She denies diarrhea. Her leg swelling has improved. Subjective/Events-last exam Pt reports feeling ok today but sometimes short of breath. No other specific issues. Checked her oxygen saturations and was satting 92-93% on vapotherm. Recommended keeping probeon finger so we could monitor it more quickly if she became symptomatic. Objective Exam Vital Signs Vital Signs Date Time Temp Pulse Resp B/P (MAP) Pulse Ox O2 Delivery O2 Flow Rate FiO2 05/28/21 12:00 36.6 72 156/72 (100) 94 Vapotherm 25.00 60.00 05/28/21 09:22 50 05/27/21 20:00 20 Capillary Refill : Less Than 3 Seconds General Appearance: No Apparent Distress, Chronically ill, Obese Respiratory: Lungs Clear, No Respiratory Distress Cardiovascular: Regular Rate, Rhythm, No Murmur Gastrointestinal: Normal Bowel Sounds, Non Tender, Soft Neurologic/Psychiatric: Alert, Oriented x3 Results/Procedures Lab Laboratory Tests 05/28/21 05:33 05/28/21 05:38 Patient resulted labs reviewed. Imaging: Reviewed Imaging Report Assessment/Plan Assessment and Plan Assess & Plan/Chief Complaint Acute respiratory failure due to COVID-19 Secondary bacterial pneumonia Acute on chronic respiratory failure with hypoxia COPD with exacerbation Covid positive Continue Decadron Continue baricitinib Procalcitonin elevated Continue Cefepime Requiring Vapotherm, 25 L 60%, stable over the past few days MAT protocol prone as able Pulmonary embolism Recently diagnosed on 05/11/21 Continue Eliquis AFib HTN Continue home meds Obesity Clinically significant, no acute management needs Debility PT/OT Multiple recent admissions Will likely need placement Social work consulted DVT ppx: Already receiving therapeutic anticoagulation BROOKLYN DUNLAP MD May 28, 2021 14:13
[2021-05-28] MEDS ORDERED: hydrALAZINE (APESOLINE) 20 MG/ML VIAL IV PRN (17:00)
[2021-05-29] MEDS: RT-ALBUTEROL HFA 8.5 GM INHALER IH SCH ×4 (02:33→18:30)
[2021-05-29 06:07] LABS: BASOPHILS % (AUTO) 0 % (0-10); EOSINOPHILS % (AUTO) 0 % (0-10); HEMATOCRIT 26 % (35-52); HEMOGLOBIN 7.6 g/dL (11.5-16.0); LYMPHOCYTES # (AUTO) 0.5 10^3/uL (1.0-4.0); LYMPHOCYTES % (AUTO) 5 % (12-44); MEAN CORPUSCULAR HEMOGLOBIN 29 pg (25-34); MEAN CORPUSCULAR HGB CONC 29 g/dL (32-36); MEAN CORPUSCULAR VOLUME 98 fL (80-99); MEAN PLATELET VOLUME 9.8 fL (9.0-12.2); MONOCYTES # (AUTO) 0.3 10^3/uL (0.0-1.0); MONOCYTES % (AUTO) 3 % (0-12); NEUTROPHILS # (AUTO) 8.4 10^3/uL (1.8-7.8); NEUTROPHILS % (AUTO) 91 % (42-75); PLATELET COUNT 245 10^3/uL (130-400); WHITE BLOOD COUNT 9.2 10^3/uL (4.3-11.0)
[2021-05-29] MEDS: FUROSEMIDE 40 MG (LASIX) TAB PO SCH (06:18)
[2021-05-29] MEDS: dexAMETHasone 6 MG TAB (DECADRON) PO SCH (06:18)
[2021-05-29 06:24] LABS: ALBUMIN 3.3 GM/DL (3.2-4.5)
[2021-05-29 06:25] LABS: POTASSIUM 4.2 MMOL/L (3.6-5.0)
[2021-05-29 06:26] LABS: CALCIUM 9.7 MG/DL (8.5-10.1)
[2021-05-29 06:29] LABS: BILIRUBIN,TOTAL 0.3 MG/DL (0.1-1.0)
[2021-05-29 06:31] LABS: CREATININE SERUM 0.99 MG/DL (0.60-1.30)
[2021-05-29] MEDS: dilTIAZem120 MG (CARDIZEM CD) CAP PO SCH (08:26)
[2021-05-29] MEDS: GABAPENTIN 600 MG (NEURONTIN) TAB PO SCH ×3 (08:26→20:47)
[2021-05-29] MEDS: FLUoxetine HCL 10 MG (PROzac) CAPSULE/TABLET PO SCH (08:26)
[2021-05-29] MEDS: APIXABAN 5 MG (ELIQUIS) TABLET PO SCH ×2 (08:27→20:47)
[2021-05-29] MEDS: ASPIRIN 81 MG CHEW (CHILDREN'S ASA) PO SCH (08:27)
[2021-05-29] MEDS: meTOprolol TARTRATE 50 MG (LOPRESSOR) TAB PO SCH ×2 (08:27→20:47)
[2021-05-29] MEDS: BARICITINIB 2 MG (OLUMIANT)TABLET PO SCH (08:27)
[2021-05-29] MEDS: UMECLIDINIUM BROMIDE (INCRUSE ELLIPTA) 7'S IH SCH (10:53)
[2021-05-29] MEDS: RT--FLUTICASONE/SALMETEROL 113-14 (AIRDUO RespiCLICK) IH SCH ×2 (11:21→18:30)
--- NOTE | 2021-05-29 11:35 | Progress Note - Hospitalist ---
Subjective HPI/CC On Admission Date Seen by Provider: May 29, 2021 Time Seen by Provider: 11:32 Helene Hicks is a 56-year-old female well-known to the medical service with multiple recent hospitalizations who presented with shortness of breath. She had also been feeling weak. She reports that she had been wearing her oxygen alth ough the EMS reported that they did not see tanks or concentrator. She reports that she has been taking her Eliquis for a recently diagnosed PE. She denies fevers. She does have a cough. She has had sputum production. She denies any chest pain. She denies nausea and vomiting. She denies diarrhea. Her leg swelling has improved. Subjective/Events-last exam Pt reports feeling ok. Still occasionally short of breath. Receiving breathing treatments. Objective Exam Vital Signs Vital Signs Date Time Temp Pulse Resp B/P (MAP) Pulse Ox O2 Delivery O2 Flow Rate FiO2 05/29/21 11:22 Vapotherm 25.00 50 05/29/21 10:53 92 05/29/21 08:00 36.1 67 24 183/85 (117) Capillary Refill : Less Than 3 Seconds General Appearance: Chronically ill, Obese Respiratory: No Accessory Muscle Use, Crackles, Other (Vapotherm) Cardiovascular: Regular Rate, Rhythm, No Murmur Gastrointestinal: Normal Bowel Sounds, Non Tender, Soft Neurologic/Psychiatric: Alert, Oriented x3 Results/Procedures Lab Laboratory Tests 05/29/21 05:30 Patient resulted labs reviewed. Imaging: Reviewed Imaging Report Assessment/Plan Assessment and Plan Assess & Plan/Chief Complaint Acute respiratory failure due to COVID-19 Secondary bacterial pneumonia Acute on chronic respiratory failure with hypoxia COPD with exacerbation Covid positive Continue Decadron Continue baricitinib Now off Cefepime Requiring Vapotherm, 25 L 45%, relatively stable over the past few days, did desat after I left room and RT to room to adjust MAT protocol prone as able Encouraged IS Pulmonary embolism Recently diagnosed on 05/11/21 Continue Eliquis AFib HTN Continue home meds Obesity Clinically significant, no acute management needs Debility PT/OT Multiple recent admissions Will likely need placement Social work consulted DVT ppx: Already receiving therapeutic anticoagulation BROOKLYN DUNLAP MD May 29, 2021 11:35
[2021-05-29] MEDS: ALPRAZolam 0.25 MG (XANAX) TAB PO PRN ×2 (12:50→20:51)
[2021-05-30] MEDS: RT-ALBUTEROL HFA 8.5 GM INHALER IH SCH ×4 (02:26→18:57)
[2021-05-30 06:03] LABS: BASOPHILS % (AUTO) 0 % (0-10); EOSINOPHILS # (AUTO) 0.2 10^3/uL (0.0-0.3); EOSINOPHILS % (AUTO) 1 % (0-10); HEMATOCRIT 30 % (35-52); HEMOGLOBIN 8.7 g/dL (11.5-16.0); LYMPHOCYTES # (AUTO) 1.5 10^3/uL (1.0-4.0); LYMPHOCYTES % (AUTO) 13 % (12-44); MEAN CORPUSCULAR HEMOGLOBIN 29 pg (25-34); MEAN CORPUSCULAR HGB CONC 30 g/dL (32-36); MEAN CORPUSCULAR VOLUME 98 fL (80-99); MEAN PLATELET VOLUME 9.3 fL (9.0-12.2); MONOCYTES # (AUTO) 0.3 10^3/uL (0.0-1.0); MONOCYTES % (AUTO) 3 % (0-12); NEUTROPHILS # (AUTO) 9.2 10^3/uL (1.8-7.8); NEUTROPHILS % (AUTO) 81 % (42-75); PLATELET COUNT 304 10^3/uL (130-400); WHITE BLOOD COUNT 11.4 10^3/uL (4.3-11.0)
[2021-05-30] MEDS: dexAMETHasone 6 MG TAB (DECADRON) PO SCH (06:10)
[2021-05-30] MEDS: FUROSEMIDE 40 MG (LASIX) TAB PO SCH (06:11)
[2021-05-30 06:21] LABS: ALBUMIN 3.3 GM/DL (3.2-4.5)
[2021-05-30 06:22] LABS: POTASSIUM 4.6 MMOL/L (3.6-5.0)
[2021-05-30 06:23] LABS: CALCIUM 9.3 MG/DL (8.5-10.1)
[2021-05-30 06:24] LABS: TOTAL PROTEIN 5.9 GM/DL (6.4-8.2)
[2021-05-30 06:26] LABS: BILIRUBIN,TOTAL 0.4 MG/DL (0.1-1.0)
[2021-05-30 06:28] LABS: CREATININE SERUM 0.78 MG/DL (0.60-1.30)
[2021-05-30] MEDS: RT--FLUTICASONE/SALMETEROL 113-14 (AIRDUO RespiCLICK) IH SCH ×2 (07:18→21:00)
[2021-05-30] MEDS: dilTIAZem120 MG (CARDIZEM CD) CAP PO SCH (09:07)
[2021-05-30] MEDS: ASPIRIN 81 MG CHEW (CHILDREN'S ASA) PO SCH (09:07)
[2021-05-30] MEDS: ALPRAZolam 0.25 MG (XANAX) TAB PO PRN ×2 (09:07→21:12)
[2021-05-30] MEDS: FLUoxetine HCL 10 MG (PROzac) CAPSULE/TABLET PO SCH (09:07)
[2021-05-30] MEDS: GABAPENTIN 600 MG (NEURONTIN) TAB PO SCH ×3 (09:07→21:12)
[2021-05-30] MEDS: meTOprolol TARTRATE 50 MG (LOPRESSOR) TAB PO SCH ×2 (09:07→21:12)
[2021-05-30] MEDS: APIXABAN 5 MG (ELIQUIS) TABLET PO SCH ×2 (09:07→21:12)
[2021-05-30] MEDS: BARICITINIB 2 MG (OLUMIANT)TABLET PO SCH (09:09)
[2021-05-30] MEDS: UMECLIDINIUM BROMIDE (INCRUSE ELLIPTA) 7'S IH SCH (09:39)
[2021-05-31] MEDS: RT-ALBUTEROL HFA 8.5 GM INHALER IH SCH ×4 (03:16→22:02)
[2021-05-31] MEDS: dexAMETHasone 6 MG TAB (DECADRON) PO SCH (05:24)
[2021-05-31] MEDS: FUROSEMIDE 40 MG (LASIX) TAB PO SCH (05:24)
[2021-05-31 06:32] LABS: BASOPHILS % (AUTO) 0 % (0-10); EOSINOPHILS % (AUTO) 0 % (0-10); HEMATOCRIT 27 % (35-52); HEMOGLOBIN 7.8 g/dL (11.5-16.0); LYMPHOCYTES # (AUTO) 0.4 10^3/uL (1.0-4.0); LYMPHOCYTES % (AUTO) 6 % (12-44); MEAN CORPUSCULAR HEMOGLOBIN 29 pg (25-34); MEAN CORPUSCULAR HGB CONC 29 g/dL (32-36); MEAN CORPUSCULAR VOLUME 99 fL (80-99); MEAN PLATELET VOLUME 9.8 fL (9.0-12.2); MONOCYTES # (AUTO) 0.2 10^3/uL (0.0-1.0); MONOCYTES % (AUTO) 3 % (0-12); NEUTROPHILS # (AUTO) 5.8 10^3/uL (1.8-7.8); NEUTROPHILS % (AUTO) 88 % (42-75); PLATELET COUNT 269 10^3/uL (130-400); WHITE BLOOD COUNT 6.5 10^3/uL (4.3-11.0)
[2021-05-31 06:46] LABS: ALBUMIN 3.2 GM/DL (3.2-4.5); POTASSIUM 4.8 MMOL/L (3.6-5.0)
[2021-05-31 06:47] LABS: CALCIUM 9.4 MG/DL (8.5-10.1)
[2021-05-31 06:48] LABS: TOTAL PROTEIN 5.7 GM/DL (6.4-8.2)
[2021-05-31 06:50] LABS: BILIRUBIN,TOTAL 0.3 MG/DL (0.1-1.0)
[2021-05-31 06:52] LABS: CREATININE SERUM 0.87 MG/DL (0.60-1.30)
[2021-05-31] MEDS: UMECLIDINIUM BROMIDE (INCRUSE ELLIPTA) 7'S IH SCH (07:05)
[2021-05-31] MEDS: RT--FLUTICASONE/SALMETEROL 113-14 (AIRDUO RespiCLICK) IH SCH ×2 (07:06→22:02)
[2021-05-31] MEDS: ACETAMINOPHEN 325 MG TABLET PO PRN ×2 (08:53→20:30)
[2021-05-31] MEDS: dilTIAZem120 MG (CARDIZEM CD) CAP PO SCH (08:53)
[2021-05-31] MEDS: GABAPENTIN 600 MG (NEURONTIN) TAB PO SCH ×3 (08:53→20:29)
[2021-05-31] MEDS: meTOprolol TARTRATE 50 MG (LOPRESSOR) TAB PO SCH ×2 (08:53→20:29)
[2021-05-31] MEDS: BARICITINIB 2 MG (OLUMIANT)TABLET PO SCH (08:53)
[2021-05-31] MEDS: ASPIRIN 81 MG CHEW (CHILDREN'S ASA) PO SCH (08:53)
[2021-05-31] MEDS: FLUoxetine HCL 10 MG (PROzac) CAPSULE/TABLET PO SCH (08:53)
[2021-05-31] MEDS: APIXABAN 5 MG (ELIQUIS) TABLET PO SCH ×2 (08:54→20:29)
[2021-05-31] MEDS: ALPRAZolam 0.25 MG (XANAX) TAB PO PRN ×2 (10:06→21:25)
[2021-05-31 12:00] VITALS: BP_SYST 111; BP_SYST 168; BP_DIAS 53; BP_DIAS 81
--- NOTE | 2021-05-31 13:01 | Progress Note - Hospitalist ---
Subjective HPI/CC On Admission Date Seen by Provider: May 31, 2021 Time Seen by Provider: 12:59 Helene Hicks is a 56-year-old female well-known to the medical service with multiple recent hospitalizations who presented with shortness of breath. She had also been feeling weak. She reports that she had been wearing her oxygen alth ough the EMS reported that they did not see tanks or concentrator. She reports that she has been taking her Eliquis for a recently diagnosed PE. She denies fevers. She does have a cough. She has had sputum production. She denies any chest pain. She denies nausea and vomiting. She denies diarrhea. Her leg swelling has improved. Subjective/Events-last exam Pt reports feeling better today. No complaints. Breathign easier. Objective Exam Vital Signs Vital Signs Date Time Temp Pulse Resp B/P (MAP) Pulse Ox O2 Delivery O2 Flow Rate FiO2 05/31/21 08:00 Vapotherm 20.00 40 05/31/21 07:05 94 05/31/21 03:37 36.4 60 24 148/78 (101) Capillary Refill : Less Than 3 Seconds General Appearance: No Apparent Distress, WD/WN Respiratory: Lungs Clear, No Accessory Muscle Use, Other (on Vapotherm) Cardiovascular: Regular Rate, Rhythm, No Murmur Neurologic/Psychiatric: Alert, Oriented x3 Results/Procedures Lab Laboratory Tests 05/31/21 05:20 Patient resulted labs reviewed. Imaging: Reviewed Imaging Report Assessment/Plan Assessment and Plan Assess & Plan/Chief Complaint Acute respiratory failure due to COVID-19 Secondary bacterial pneumonia Acute on chronic respiratory failure with hypoxia COPD with exacerbation Covid positive Continue Decadron Continue baricitinib Now off Cefepime Requiring Vapotherm, 20 L 40% MAT protocol prone as able Encouraged IS Pulmonary embolism Recently diagnosed on 05/11/21 Continue Eliquis AFib HTN Continue home meds Obesity Clinically significant, no acute management needs Debility PT/OT Multiple recent admissions Will likely need placement Social work consulted DVT ppx: Already receiving therapeutic anticoagulation BROOKLYN DUNLAP MD May 31, 2021 13:01
--- NOTE | 2021-05-31 15:26 | Pulmonary Consultation ---
History of Present Illness History of Present Illness Date Seen by Provider: May 31, 2021 Time Seen by Provider: 15:20 Reason for Visit: COVID, COPD recen pulm emb History of Present Illness 56 yo F admitted for SOB had recent pul emb, May 12, CTA shows segmental size emboli in RLL, at that time had multilobar infiltrates. Hx of COPD, on home oxygen 6 rest and 8 on exertion, On Pulmicort bid thru nebulizer, Duoneb, Incruse here but not at home, Has been taking Brezpri too expensive At home has good exercise tolerance , Dx'ed with Covid on 05/24, D dimer a little high at 0.84, on po decadron vapotherm 25 lpm @ 45% spont RR in mid 20's, SpO2 in mid 90's Also Hx of EtOH abuse, opioid abuse has been on suboxone in past. Blood cultures negative, sputum NRF Now not feeling SOB, better exercise tolerance, has cough productive, no hemoptysis, no chest pain, PMH Has HTN, no DM, ? 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, has dogs and cats at home, does not efffect breathing Family father had NM 43, Mother side CVA's at early age Allergies and Home Medications Allergies Coded Allergies: No Known Drug Allergies (Unverified , 04/29/19) Home Medications ALPRAZolam 0.25 Mg Tab, 0.25 MG PO Q8H PRN for ANXIETY Prescribed by: TAL YANEZ on 05/06/21 0947 Albuterol Sulfate 1 Puff Puff, 2 PUFF INH Q4H PRN for SHORTNESS OF BREATH, (Reported) Albuterol Sulfate 1.25 Mg/3 Ml Vial.neb, 3 ML INH Q6H PRN for SHORTNESS OF MARC TH, (Reported) Apixaban 5 Mg Tablet, 5 MG PO BID TAKE 2 TABLETS BID X 7 DAYS, THEN 1 TABLET BID Prescribed by: TAL YANEZ on 05/16/21 1232 Aspirin 81 Mg Tab.chew, 81 MG PO DAILY, (Reported) Budesonide 1 Mg/2 Ml Ampul.neb, 2 ML NEB BID, (Reported) Budesonide/Glycopyr/Formoterol 10.7 Gm Hfa.aer.ad, 2 PUFF INH BID, (Reported) Diltiazem HCl 120 Mg Cap.er.24h, 120 MG PO DAILY, (Reported) Fluoxetine HCl 10 Mg Capsule, 10 MG PO DAILY, (Reported) LAST FILLED 04-03-2021 #30/30 DAY SUPPLY Furosemide 80 Mg Tablet, 80 MG PO DAILY, (Reported) Gabapentin 600 Mg Tablet, 600 MG PO TID, (Reported) Lisinopril 10 Mg Tablet, 10 MG PO DAILY PRN for BLOOD PRESSURE, (Reported) Loratadine 10 Mg Tablet, 10 MG PO DAILY PRN for ALLERGY SYMPTOMS, (Reported) Metoprolol Tartrate 50 Mg Tablet, 50 MG PO BID, (Reported) Nystatin 15 Gm Cream..g., 1 APPLIC TP BID, (Reported) Oxycodone HCl 10 Mg Tablet, 10 MG PO Q4H PRN for PAIN-SEVERE (8-10), (Reported) Potassium Chloride 20 Meq Tablet.er, 20 MEQ PO DAILY, (Reported) Triamcinolone Acet 15 Gm Cr, 1 APPLIC TP BID, (Reported) Umeclidinium [place] 62.5 Mcg Blst.w.dev, 0 INH IH DAILY@0800 Prescribed by: TAL YANEZ on 05/16/21 1137 Past Medical/Social/Family Hx Patient Social History Tobacco Use?: Yes Tobacco type used: Cigarettes Smoking Status: Current Everyday Smoker Use of E-Cig and/or Vaping dev: No Substance use?: No Alcohol Use?: No Pt stated abuse/neglect: No Immunizations Up To Date Influenza Vaccine Up-to-Date: No; Not Current Tetanus Booster (TDap): Unknown Hepatitis A: No Hepatitis B: No TB Skin Test: None Current Status status: No Advance Directives: No Communicates: Verbally Primary Language: Vietnamese Preferred Spoken Language: Vietnamese Is interpretation needed?: No Implanted or Applied Medical D: None Past Medical History wound/ edema COPD on home o2 Family Medical History Family Hx: SOCIAL HISTORY: -ETOH --ABUSE/REGULAR USE -DRUGS--LONG HISTORY OF OPIATE ABUSE -SMOKES 2 PPD ADDITIONAL PMH: -12/14/2020-TRANSFERRED TO [facility] FOR SEPTIC SHOCK WITH ACUTE RENAL FAILURE DUE TO CELLULITIS OF LEGS. -02/03/21-TRANSFERRED TO [facility] FOR SEPSIS WITH ACUTE RENAL FAILURE, ALSO DUE TO CELLULITIS OF LEGS. -ADMITTED AND INTUBATED X 1 MONTH IN SEPTEMBER 2019 FOR BILATERAL PNEUMONIA AND ARDS. HISTORY OF OPIATE ABUSE/ADDICTION--HAS BEEN ON SUBOXONE, BUT STATES SHE CANNOT AFFORD IT AND IS NO LONGER TAKING IT OF 03/11/21 Review of Systems Constitutional: see HPI Respiratory: see HPI Gastrointestinal: abdominal pain Skin: other (chronic leg sweeling with stasis dermatitis and Hx of cellulitis) Sepsis Event Evaluation Height, Weight, BMI Height: 5'5.00" Weight: 218lbs. 0.0oz. [id number]; 29.71 BMI Method:Stated Exam Exam Patient acknowledged, consented, and participated in this virtual visit which was conducted using real time audio/video Vital Signs Date Time Temp Pulse Resp B/P (MAP) Pulse Ox O2 Delivery O2 Flow Rate FiO2 05/31/21 15:11 96 Vapotherm 20.00 40 05/31/21 12:00 36.2 73 22 168/81 (110) 94 Vapotherm 20.00 40.00 05/31/21 08:00 Vapotherm 20.00 40 05/31/21 07:05 94 Vapotherm 20.00 40 05/31/21 03:37 36.4 60 24 148/78 (101) 997 Vapotherm 25.00 45.00 05/31/21 03:16 95 Vapotherm 25.00 45 05/31/21 00:12 36.9 65 24 158/79 (105) 98 Vapotherm 25.00 45.00 05/30/21 20:22 36.6 88 20 153/70 (97) 95 Vapotherm 25.00 45.00 05/30/21 20:00 Vapotherm 25.00 45 05/30/21 18:58 95 Vapotherm 25.00 45 05/30/21 15:46 76 95 05/30/21 15:38 36.8 82 23 151/67 (95) 93 Vapotherm 25.00 45.00 05/30/21 15:23 95 Vapotherm 25.00 45 I & O 05/31/21 07:00 Intake Total 1612 ml Balance 1612 ml Height & Weight Height: 5'5.00" Weight: 218lbs. 0.0oz. [id number]; 29.71 BMI Method:Stated General Appearance: No Apparent Distress, WD/WN HEENT: PERRL/EOMI, Pharynx Normal Neck: Normal Inspection, Supple, Other (No SC or cervical nodes) Respiratory: Lungs Clear, No Accessory Muscle Use, Decreased Breath Sounds, Other (on Vapotherm) Cardiovascular: Regular Rate, Rhythm, No Murmur, Other (heart tones not heard well) Capillary Refill: Less Than 3 Seconds Gastrointestinal: hernia (small umbilical hernia) Extremity: Normal Inspection, Pedal Edema Neurologic/Psychiatric: Alert, Oriented x3 Skin: Normal Color, Warm/Dry Lymphatic: No Adenopathy Results Lab Laboratory Tests 05/30/21 05:53 05/31/21 05:20 Assessment/Plan Assessment/Plan Pulm Emb, continue with Ashley, has Hb in 7's, I would make sure colonoscopy gets done when she is better to make sure clot is not from being hypercoaguable from occult cancer. COPD, continue on same meds, might benefit from portable oxygen concentrator at home if flow rates are < 5 lpm, Would have her buy pulse oximeter for home use.At home continue on some combination of ICS/LABA/LAMA. Not clear if insurance would cover Trelegy or Breztri Covid-keep on decadron, monitor oxygen needs which seem to be improving, as OP get follow up CT looking for development of pulmonary fibrosis, She should get a pulse oximeter for home, in 6 weeks would get Covid vaccine Went over a smoking cessation plan. Time spent with patient (mins): 40 YAYO ANDREA MD May 31, 2021 15:26
[2021-05-31 16:20] VITALS: BP 166/79
[2021-05-31 19:20] VITALS: BP 160/74
[2021-06-01 00:01] VITALS: BP 162/78
[2021-06-01] MEDS: RT-ALBUTEROL HFA 8.5 GM INHALER IH SCH ×4 (02:34→21:49)
[2021-06-01 03:26] VITALS: BP 159/80
[2021-06-01 04:21] LABS: BASOPHILS % (AUTO) 0 % (0-10); EOSINOPHILS % (AUTO) 0 % (0-10); HEMATOCRIT 29 % (35-52); HEMOGLOBIN 8.4 g/dL (11.5-16.0); LYMPHOCYTES # (AUTO) 0.4 10^3/uL (1.0-4.0); LYMPHOCYTES % (AUTO) 6 % (12-44); MEAN CORPUSCULAR HEMOGLOBIN 29 pg (25-34); MEAN CORPUSCULAR HGB CONC 29 g/dL (32-36); MEAN CORPUSCULAR VOLUME 99 fL (80-99); MEAN PLATELET VOLUME 9.5 fL (9.0-12.2); MONOCYTES # (AUTO) 0.3 10^3/uL (0.0-1.0); MONOCYTES % (AUTO) 4 % (0-12); NEUTROPHILS # (AUTO) 6.5 10^3/uL (1.8-7.8); NEUTROPHILS % (AUTO) 89 % (42-75); PLATELET COUNT 286 10^3/uL (130-400); WHITE BLOOD COUNT 7.3 10^3/uL (4.3-11.0)
[2021-06-01 04:37] LABS: ALBUMIN 3.4 GM/DL (3.2-4.5)
[2021-06-01 04:38] LABS: POTASSIUM 4.4 MMOL/L (3.6-5.0)
[2021-06-01 04:39] LABS: CALCIUM 9.6 MG/DL (8.5-10.1)
[2021-06-01 04:40] LABS: TOTAL PROTEIN 5.8 GM/DL (6.4-8.2)
[2021-06-01 04:42] LABS: BILIRUBIN,TOTAL 0.3 MG/DL (0.1-1.0)
[2021-06-01 04:44] LABS: CREATININE SERUM 0.81 MG/DL (0.60-1.30)
[2021-06-01] MEDS: ACETAMINOPHEN 325 MG TABLET PO PRN ×2 (06:10→21:04)
[2021-06-01] MEDS: dexAMETHasone 6 MG TAB (DECADRON) PO SCH (06:10)
[2021-06-01] MEDS: FUROSEMIDE 40 MG (LASIX) TAB PO SCH (06:10)
[2021-06-01 07:50] VITALS: BP 176/86
[2021-06-01] MEDS: RT--FLUTICASONE/SALMETEROL 113-14 (AIRDUO RespiCLICK) IH SCH ×2 (09:14→21:49)
[2021-06-01] MEDS: UMECLIDINIUM BROMIDE (INCRUSE ELLIPTA) 7'S IH SCH (09:14)
[2021-06-01] MEDS: GABAPENTIN 600 MG (NEURONTIN) TAB PO SCH ×3 (09:37→21:03)
[2021-06-01] MEDS: ALPRAZolam 0.25 MG (XANAX) TAB PO PRN ×2 (09:37→21:03)
[2021-06-01] MEDS: FLUoxetine HCL 10 MG (PROzac) CAPSULE/TABLET PO SCH (09:37)
[2021-06-01] MEDS: BARICITINIB 2 MG (OLUMIANT)TABLET PO SCH (09:37)
[2021-06-01] MEDS: ASPIRIN 81 MG CHEW (CHILDREN'S ASA) PO SCH (09:37)
[2021-06-01] MEDS: dilTIAZem120 MG (CARDIZEM CD) CAP PO SCH (09:37)
[2021-06-01] MEDS: APIXABAN 5 MG (ELIQUIS) TABLET PO SCH ×2 (09:38→21:03)
[2021-06-01] MEDS: meTOprolol TARTRATE 50 MG (LOPRESSOR) TAB PO SCH ×2 (09:38→21:03)
--- NOTE | 2021-06-01 11:56 | Progress Note - Hospitalist ---
Subjective HPI/CC On Admission Date Seen by Provider: Jun 01, 2021 Time Seen by Provider: 11:54 Helene Hicks is a 56-year-old female well-known to the medical service with multiple recent hospitalizations who presented with shortness of breath. She had also been feeling weak. She reports that she had been wearing her oxygen alth ough the EMS reported that they did not see tanks or concentrator. She reports that she has been taking her Eliquis for a recently diagnosed PE. She denies fevers. She does have a cough. She has had sputum production. She denies any chest pain. She denies nausea and vomiting. She denies diarrhea. Her leg swelling has improved. Subjective/Events-last exam Pt reports doing well. Down to 4lpm. States normally on 6lpm at home. Discussed plan for likely DC Thursday if she continues to do well. Objective Exam Vital Signs Vital Signs Date Time Temp Pulse Resp B/P (MAP) Pulse Ox O2 Delivery O2 Flow Rate FiO2 06/01/21 09:14 97 High Flow N/C 4.00 06/01/21 07:50 36.6 67 20 176/86 (116) 05/31/21 15:11 40 Capillary Refill : Less Than 3 Seconds General Appearance: No Apparent Distress, Chronically ill, Obese Respiratory: Lungs Clear, No Respiratory Distress Cardiovascular: Regular Rate, Rhythm, No Murmur Neurologic/Psychiatric: Alert, Oriented x3 Results/Procedures Lab Laboratory Tests 06/01/21 04:10 Patient resulted labs reviewed. Imaging: Reviewed Imaging Report Assessment/Plan Assessment and Plan Assess & Plan/Chief Complaint Acute respiratory failure due to COVID-19 Secondary bacterial pneumonia Acute on chronic respiratory failure with hypoxia COPD with exacerbation Covid positive Continue Decadron Continue baricitinib Now off Cefepime Requiring 4lpm and doing very well MAT protocol prone as able Pulmonary embolism Recently diagnosed on 05/11/21 Continue Eliquis AFib HTN Continue home meds Obesity Clinically significant, no acute management needs Debility PT/OT Multiple recent admissions Will likely need placement, plan for discharge to [facility] Thursday if still doing well Social work consulted DVT ppx: Already receiving therapeutic anticoagulation BROOKLYN DUNLAP MD Jun 01, 2021 11:56
[2021-06-01 12:05] VITALS: BP 162/74
[2021-06-01 16:45] VITALS: BP 177/82
[2021-06-01 20:38] VITALS: BP 165/79
[2021-06-02 00:31] VITALS: BP 150/80
[2021-06-02] MEDS: RT-ALBUTEROL HFA 8.5 GM INHALER IH SCH ×4 (02:27→21:01)
[2021-06-02 05:00] VITALS: BP 177/81
[2021-06-02 05:50] LABS: BASOPHILS % (AUTO) 0 % (0-10); EOSINOPHILS % (AUTO) 0 % (0-10); HEMATOCRIT 29 % (35-52); HEMOGLOBIN 8.6 g/dL (11.5-16.0); LYMPHOCYTES # (AUTO) 0.5 10^3/uL (1.0-4.0); LYMPHOCYTES % (AUTO) 6 % (12-44); MEAN CORPUSCULAR HEMOGLOBIN 29 pg (25-34); MEAN CORPUSCULAR HGB CONC 29 g/dL (32-36); MEAN CORPUSCULAR VOLUME 100 fL (80-99); MEAN PLATELET VOLUME 9.2 fL (9.0-12.2); MONOCYTES # (AUTO) 0.4 10^3/uL (0.0-1.0); MONOCYTES % (AUTO) 5 % (0-12); NEUTROPHILS # (AUTO) 7.2 10^3/uL (1.8-7.8); NEUTROPHILS % (AUTO) 88 % (42-75); PLATELET COUNT 331 10^3/uL (130-400); WHITE BLOOD COUNT 8.2 10^3/uL (4.3-11.0)
[2021-06-02 06:00] LABS: ALBUMIN 3.5 GM/DL (3.2-4.5); POTASSIUM 4.5 MMOL/L (3.6-5.0)
[2021-06-02 06:02] LABS: CALCIUM 9.6 MG/DL (8.5-10.1)
[2021-06-02 06:03] LABS: TOTAL PROTEIN 6.1 GM/DL (6.4-8.2)
[2021-06-02 06:05] LABS: BILIRUBIN,TOTAL 0.3 MG/DL (0.1-1.0)
[2021-06-02] MEDS: dexAMETHasone 6 MG TAB (DECADRON) PO SCH (06:05)
[2021-06-02] MEDS: ALPRAZolam 0.25 MG (XANAX) TAB PO PRN ×2 (06:05→17:07)
[2021-06-02] MEDS: FUROSEMIDE 40 MG (LASIX) TAB PO SCH (06:05)
[2021-06-02] MEDS: ACETAMINOPHEN 325 MG TABLET PO PRN ×2 (06:05→23:24)
[2021-06-02 06:06] LABS: CREATININE SERUM 0.98 MG/DL (0.60-1.30)
[2021-06-02 08:25] VITALS: BP 186/87
[2021-06-02] MEDS: BARICITINIB 2 MG (OLUMIANT)TABLET PO SCH (09:01)
[2021-06-02] MEDS: FLUoxetine HCL 10 MG (PROzac) CAPSULE/TABLET PO SCH (09:01)
[2021-06-02] MEDS: GABAPENTIN 600 MG (NEURONTIN) TAB PO SCH ×3 (09:01→20:15)
[2021-06-02] MEDS: meTOprolol TARTRATE 50 MG (LOPRESSOR) TAB PO SCH ×2 (09:01→20:15)
[2021-06-02] MEDS: ASPIRIN 81 MG CHEW (CHILDREN'S ASA) PO SCH (09:01)
[2021-06-02] MEDS: APIXABAN 5 MG (ELIQUIS) TABLET PO SCH ×2 (09:01→20:18)
[2021-06-02] MEDS: dilTIAZem120 MG (CARDIZEM CD) CAP PO SCH (09:01)
[2021-06-02] MEDS: RT--FLUTICASONE/SALMETEROL 113-14 (AIRDUO RespiCLICK) IH SCH ×2 (10:13→21:02)
[2021-06-02] MEDS: UMECLIDINIUM BROMIDE (INCRUSE ELLIPTA) 7'S IH SCH (10:14)
[2021-06-02 12:00] VITALS: BP 159/75
--- NOTE | 2021-06-02 13:09 | Progress Note - Hospitalist ---
Subjective HPI/CC On Admission Date Seen by Provider: Jun 02, 2021 Time Seen by Provider: 13:06 Helene Hicks is a 56-year-old female well-known to the medical service with multiple recent hospitalizations who presented with shortness of breath. She had also been feeling weak. She reports that she had been wearing her oxygen alth ough the EMS reported that they did not see tanks or concentrator. She reports that she has been taking her Eliquis for a recently diagnosed PE. She denies fevers. She does have a cough. She has had sputum production. She denies any chest pain. She denies nausea and vomiting. She denies diarrhea. Her leg swelling has improved. Subjective/Events-last exam Patient reports feeling better. No complaints to me today. Denies pain. Apparently asked nurse about discharging to home and then eventually admitting to the [facility]. She did not ask me about this. I did remind her she would be discharging to the [facility] tomorrow. Objective Exam Vital Signs Vital Signs Date Time Temp Pulse Resp B/P (MAP) Pulse Ox O2 Delivery O2 Flow Rate FiO2 06/02/21 12:00 37.0 77 18 159/75 (103) 94 High Flow N/C 4.00 05/31/21 15:11 40 Capillary Refill : Less Than 3 Seconds General Appearance: No Apparent Distress, Chronically ill, Obese Respiratory: Lungs Clear, No Respiratory Distress Cardiovascular: Regular Rate, Rhythm, No Murmur Extremity: No Calf Tenderness, No Pedal Edema Neurologic/Psychiatric: Alert, Oriented x3 Results/Procedures Lab Laboratory Tests 06/02/21 05:25 Patient resulted labs reviewed. Imaging: Reviewed Imaging Report Assessment/Plan Assessment and Plan Assess & Plan/Chief Complaint Acute respiratory failure due to COVID-19 Secondary bacterial pneumonia Acute on chronic respiratory failure with hypoxia COPD with exacerbation Covid positive Continue Decadron Continue baricitinib Now off Cefepime Requiring 4lpm and doing very well MAT protocol prone as able Will be out of isolation tomorrow and should be able to discharge to [facility] then Pulmonary embolism Recently diagnosed on 05/11/21 Continue Eliquis AFib HTN Continue home meds Obesity Clinically significant, no acute management needs Debility PT/OT Multiple recent admissions Will likely need placement, plan for discharge to [facility] Thursday if still doing well Social work consulted DVT ppx: Already receiving therapeutic anticoagulation FABI,BROOKLYN M MD Jun 02, 2021 13:09
[2021-06-02 16:52] VITALS: BP 164/79
[2021-06-02 20:14] VITALS: BP 174/80
[2021-06-03 00:34] VITALS: BP 154/72
[2021-06-03] MEDS: RT-ALBUTEROL HFA 8.5 GM INHALER IH SCH ×2 (02:43→08:09)
[2021-06-03 04:10] VITALS: BP 159/76
[2021-06-03 05:39] LABS: BASOPHILS % (AUTO) 0 % (0-10); EOSINOPHILS % (AUTO) 0 % (0-10); HEMATOCRIT 30 % (35-52); HEMOGLOBIN 8.5 g/dL (11.5-16.0); LYMPHOCYTES # (AUTO) 0.5 10^3/uL (1.0-4.0); LYMPHOCYTES % (AUTO) 7 % (12-44); MEAN CORPUSCULAR HEMOGLOBIN 29 pg (25-34); MEAN CORPUSCULAR HGB CONC 28 g/dL (32-36); MEAN CORPUSCULAR VOLUME 101 fL (80-99); MEAN PLATELET VOLUME 9.4 fL (9.0-12.2); MONOCYTES # (AUTO) 0.5 10^3/uL (0.0-1.0); MONOCYTES % (AUTO) 7 % (0-12); NEUTROPHILS # (AUTO) 6.7 10^3/uL (1.8-7.8); NEUTROPHILS % (AUTO) 82 % (42-75); PLATELET COUNT 350 10^3/uL (130-400); WHITE BLOOD COUNT 8.1 10^3/uL (4.3-11.0)
[2021-06-03] MEDS: dexAMETHasone 6 MG TAB (DECADRON) PO SCH (06:00)
[2021-06-03] MEDS: FUROSEMIDE 40 MG (LASIX) TAB PO SCH (06:00)
[2021-06-03] MEDS: ACETAMINOPHEN 325 MG TABLET PO PRN (06:00)
[2021-06-03] MEDS: ALPRAZolam 0.25 MG (XANAX) TAB PO PRN (06:00)
[2021-06-03 06:02] LABS: ALBUMIN 3.4 GM/DL (3.2-4.5)
[2021-06-03 06:03] LABS: POTASSIUM 4.7 MMOL/L (3.6-5.0)
[2021-06-03 06:04] LABS: CALCIUM 9.3 MG/DL (8.5-10.1)
[2021-06-03 06:05] LABS: TOTAL PROTEIN 5.8 GM/DL (6.4-8.2)
[2021-06-03 06:07] LABS: BILIRUBIN,TOTAL 0.4 MG/DL (0.1-1.0)
[2021-06-03 06:09] LABS: CREATININE SERUM 1.01 MG/DL (0.60-1.30)
[2021-06-03 08:00] VITALS: BP 185/86
[2021-06-03] MEDS: UMECLIDINIUM BROMIDE (INCRUSE ELLIPTA) 7'S IH SCH (08:08)
[2021-06-03] MEDS: RT--FLUTICASONE/SALMETEROL 113-14 (AIRDUO RespiCLICK) IH SCH (08:08)
[2021-06-03] MEDS: meTOprolol TARTRATE 50 MG (LOPRESSOR) TAB PO SCH (08:46)
[2021-06-03] MEDS: ASPIRIN 81 MG CHEW (CHILDREN'S ASA) PO SCH (08:46)
[2021-06-03] MEDS: dilTIAZem120 MG (CARDIZEM CD) CAP PO SCH (08:46)
[2021-06-03] MEDS: BARICITINIB 2 MG (OLUMIANT)TABLET PO SCH (08:46)
[2021-06-03] MEDS: FLUoxetine HCL 10 MG (PROzac) CAPSULE/TABLET PO SCH (08:46)
[2021-06-03] MEDS: GABAPENTIN 600 MG (NEURONTIN) TAB PO SCH (08:46)
[2021-06-03] MEDS: APIXABAN 5 MG (ELIQUIS) TABLET PO SCH (08:46)
[2021-06-03] MEDS ORDERED: DILT240C91 PO (11:44)
[2021-06-03] MEDS ORDERED: OXYC10TA7 PO (11:46)
[2021-06-03] MEDS ORDERED: ALPR.25T PO (11:46)
--- NOTE | 2021-06-03 11:50 | Discharge Summary ---
Discharge Summary Reconcile Patient Problems Problems Reviewed?: Yes Hospital Course Hospital Course Date of Admission: May 23, 2021 at 07:09 Admission Diagnosis : Acute respiratory failure due to COVID-19 Family Physician/Provider: García Hicks DO Date of Discharge: 06/03/21 Discharge Diagnosis: Acute respiratory failure due to COVID-19 Hospital Course: Helene Hicks is a 56-year-old female who was admitted with acute respiratory failure due to COVID-19. She was treated with dexamethasone and baricitinib. She required Vapotherm. Her course was complicated by debility. Her oxygen requirement improved. A respiratory therapy evaluation revealed a 4 L continuous requirement. She was discharged in stable condition to [facility] for ongoing therapy needs. Labs and Pending Lab Test: Laboratory Tests 06/03/21 04:52: White Blood Count 8.1, Red Blood Count 2.98L, Hemoglobin 8.5L, Hematocrit 30L, Mean Corpuscular Volume 101H, Mean Corpuscular Hemoglobin 29, Mean Corpuscular Hemoglobin Concent 28L, Red Cell Distribution Width 17.2H, Platelet Count 350, Mean Platelet Volume 9.4, Immature Granulocyte % (Auto) 5, Neutrophils (%) (Auto) 82H, Lymphocytes (%) (Auto) 7L, Monocytes (%) (Auto) 7, Eosinophils (%) (Auto) 0, Basophils (%) (Auto) 0, Neutrophils # (Auto) 6.7, Lymphocytes # (Auto) 0.5L, Monocytes # (Auto) 0.5, Eosinophils # (Auto) 0.0, Basophils # (Auto) 0.0, Immature Granulocyte # (Auto) 0.4H, Sodium Level 141, Potassium Level 4.7, Chloride Level 104, Carbon Dioxide Level 29, Anion Gap 8, Blood Urea Nitrogen 31H, Creatinine 1.01, Estimat Glomerular Filtration Rate 57, BUN/Creatinine Ratio 31, Glucose Level 211H, Calcium Level 9.3, Corrected Calcium 9.8, Total Bi lirubin 0.4, Aspartate Amino Transf (AST/SGOT) 15, Alanine Aminotransferase (ALT/SGPT) 51, Alkaline Phosphatase 86, Total Protein 5.8L, Albumin 3.4 Microbiology 05/23/21 Urine Culture - Final, Complete Gram Pos Mixed Bacterial Martha 05/23/21 Blood Culture - Final, Complete No growth Home Meds Active Oxycodone HCl 10 Mg Tablet 10 Mg PO Q4H PRN 7 Days Xanax Tablet (Alprazolam) 0.25 Mg Tab 0.25 Mg PO Q8H PRN 7 Days Diltiazem 24Hr ER (Diltiazem HCl) 240 Mg Cap.er.24h 240 Mg PO DAILY 30 Days Eliquis (Apixaban) 5 Mg Tablet 5 Mg PO BID 30 Days TAKE 2 TABLETS BID X 7 DAYS, THEN 1 TABLET BID Incruse Ellipta (Umeclidinium [place]) 62.5 Mcg Blst.w.dev 0 Inh IH DAILY@0800 Reported Triamcinolone Acetonide 0.1% Cream (Triamcinolone Acet) 15 Gm Cr 1 Applic TP BID Nystatin 15 Gm Cream..g. 1 Applic TP BID Metoprolol Tartrate 50 Mg Tablet 50 Mg PO BID Loratadine 10 Mg Tablet 10 Mg PO DAILY PRN Potassium Chloride 20 Meq Tablet.er 20 Meq PO DAILY Prozac (Fluoxetine HCl) 10 Mg Capsule 10 Mg PO DAILY LAST FILLED 04-03-2021 #30/30 DAY SUPPLY Breztri Aerosphere Inhaler (Budesonide/Glycopyr/Formoterol) 10.7 Gm Hfa.aer.ad 2 Puff INH BID Albuterol Sulfate 1.25 Mg/3 Ml Vial.neb 3 Ml INH Q6H PRN Ventolin Hfa (Albuterol Sulfate) 1 Puff Puff 2 Puff INH Q4H PRN Cartia Xt (Diltiazem HCl) 120 Mg Cap.er.24h 120 Mg PO DAILY Budesonide 1 Mg/2 Ml Ampul.neb 2 Ml NEB BID Furosemide 80 Mg Tablet 80 Mg PO DAILY Lisinopril 10 Mg Tablet 10 Mg PO DAILY PRN Aspirin 81 Mg Tab.chew 81 Mg PO DAILY Gabapentin 600 Mg Tablet 600 Mg PO TID Instructions to Patient/Family Assessment/Instructions Take medications as prescribed. Follow-up with your PCP. Return with worsening symptoms. Follow Up Appt.: Next fdc rounds Skilled NF Admit to: [facility] Certification (SNF) I certify that SNF services are required to be given on an inpatient basis because of the above named patient's need for [place] [facility] care on a continuing basis for the conditions(s) for which he/she was receiving inpatient hospital services prior to his/her transfer to the SNF. Residential Facility Order: Nursing Services, Gas Maker Helper-Evaluate & Treat, Physical Therapy-Evaluate & Treat Oxygen Delivery Method: Nasal Cannula Oxygen Flow Rate L/min (Range): 4 Discharge Diet: No Restrictions Daily Activity as Tolerated: Yes Resuscitation Status: Full Code Ace Diamond Jun 03, 2021 11:46 Discharge Physical Exam General: Alert, Oriented X3, Cooperative, No Acute Distress HEENT: Atraumatic, PERRLA, EOMI Lungs: Clear to Auscultation, Normal Air Movement Heart: Regular Rate, Normal S1, Normal S2, No Murmurs Abdomen: Normal Bowel Sounds, Soft, No Tenderness Extremities: No Edema, No Tenderness/Swelling Skin: No Rashes, No Significant Lesion Neuro: Normal Speech, Normal Tone Psych/Mental Status: Mental Status NL, Mood NL ACE DIAMOND MD Jun 03, 2021 11:50
[2021-06-03 12:00] VITALS: BP 181/82
[2021-06-03 14:08] VITALS: BP 181/82
--- NOTE | 2021-06-03 15:38 | D/C HH Face to Face Order ---
D/C Face to Face Orders Reconcile Patient Problems Problems Reviewed?: Yes Instructions for Patient Via [employer], Patient Instructions/FollowUp: Take medications as prescribed. Follow-up with your PCP in about a week. Return with worsening symptoms. Physician to follow Patient: Fabiola Discharge Diet for Home: No Restrictions Patient Data-Allergies,Ht & Wt Patient Allergies: Coded Allergies: No Known Drug Allergies (Unverified , 04/29/19) Height (Feet): 5 Height (Inches): 5.00 Weight (Pounds): 218 Weight (Ounces): 0.0 Home Health Need/Face to Face Date of Face to Face: Jun 03, 2021 Clinical Findings: Instability, Muscle weakness, Shortness of breath, Unsteady gait I have seen Pt [id number]: Yes Discharged To: Home Diagnosis/Conditions: COVID-19 Pulmonary embolism COPD Chronic respiratory failure with hypoxia Problems/Diagnosis/Condition: (1) COVID-19 (2) Pulmonary embolism (3) COPD (chronic obstructive pulmonary disease) (4) Acute on chronic respiratory failure with hypoxemia Patient is Homebound due to: Emmett fall risk due to instabilty, Muscle weakness, Shortness of breath/distress Homebound Status Due to the above stated illness, injury or surgical procedure (medical condition or diagnosis) and associated clinical findings, the patient is homebound because of his/her inability to leave home except with aid of a supportive device and/or person AND leaving the home requires a considerable and taxing effort or is medically contraindicated. Pt req the following assistanc: Aid of another person Home Health Nursing Orders Home Health Services Order: Nursing Services, Vp Purchasing-Evaluate & Treat, Physical Therapy-Evaluate & Treat Home Health Infusion Therapy Line Start Date: May 24, 2021 Therapy Orders Therapy Orders: OT (must have SN or PT order), Physical Therapy Therapy Specific Orders: Eval assistive deivces, Teach enviro modifications/safety, Gait training, Increase strength/endurance Certify Stmt I certify that this patient is under my care and that I, a nurse practitioner or a physician; a buyer assistant working with me, had a face to face encounter that - meets the physician face to face encounter requirements with this patient as dated. ACE DIAMOND MD Jun 03, 2021 15:38
== END 2021-06-03 14:05 | DRG 871 ==
LOC: EDUNIT# 05:14 → ER 05:16 → CSD 07:09 → 4TH 05-26 16:30
PROVIDERS: ADMIT Internal Medicine; ATTEND Internal Medicine
PROC: 5A09357 Assistance with Respiratory Ventilation, Less than 24 Consecutive Hours, Continuous Positive Airway Pressure (ICD-10-PCS; principal; 2021-05-23)
DX: A41.9 Sepsis, unspecified organism (principal); U07.1 COVID-19; J12.82 Pneumonia due to coronavirus disease 2019; J96.21 Acute and chronic respiratory failure with hypoxia; J15.9 Unspecified bacterial pneumonia; I26.99 Other pulmonary embolism without acute cor pulmonale; J44.1 Chronic obstructive pulmonary disease with (acute) exacerbation; N17.9 Acute kidney failure, unspecified; I10 Essential (primary) hypertension; I48.91 Unspecified atrial fibrillation; F17.210 Nicotine dependence, cigarettes, uncomplicated; E78.00 Pure hypercholesterolemia, unspecified; K21.9 Gastro-esophageal reflux disease without esophagitis; F31.9 Bipolar disorder, unspecified; E66.9 Obesity, unspecified; Z68.31 Body mass index [BMI] 31.0-31.9, adult; F10.10 Alcohol abuse, uncomplicated; F11.10 Opioid abuse, uncomplicated; Z79.82 Long term (current) use of aspirin; Z79.52 Long term (current) use of systemic steroids; Z86.718 Personal history of other venous thrombosis and embolism; Z79.01 Long term (current) use of anticoagulants; Z82.49 Family history of ischemic heart disease and other diseases of the circulatory system
CPT/HCPCS: 36415; 71045; 80053; 81000; 82805; 83605; 84145; 85007; 85014; 85018; 85025; 85027; 85379; 85610; 85730; 86141; 86850; 86900; 86901; 86920; 87040; 87088; 87636; 94640; 94660; 94664; 94760; 94761; 96374

== ENCOUNTER 2021-06-04 09:33 | Emergency (ER) | payer BC, MEDICAID ==
[~2021-06-04] VITALS: Ht 165 cm; Wt 97.0 kg
[~2021-06-04 09:33] MED LIST changes: +DILT240C91 PO
[2021-06-04] MEDS ORDERED: VANCOMYCIN INJECTION 1,500 MG in NS IV 500 ML 500 ML IV ONE (09:45)
[2021-06-04] MEDS ORDERED: NS IV 1000 ML 1,000 ML IV SCH (09:45)
[2021-06-04] MEDS ORDERED: CEFEPIME INJECTION 1,000 MG in WATER (STERILE) FOR INJECTION 10 ML IV ONE (09:45)
[2021-06-04 10:06] LABS: ABG BASE EXCESS 10.2 MMOL/L (-2.5-2.5); ABG OXYGEN SATURATION 99 % (94-100); ABG PCO2 50 MMHG (35-45); ABG PH 7.46 (7.37-7.43); ABG PO2 107 MMHG (79-93); ABG TCO2 36.2 MMOL/L (21.0-31.0)
[2021-06-04 10:07] LABS: ALLENS TEST YES-POS; BASOPHILS % (AUTO) 0 % (0-10); EOSINOPHILS % (AUTO) 0 % (0-10); HEMATOCRIT 31 % (35-52); HEMOGLOBIN 9.4 g/dL (11.5-16.0); INSPIRED O2 6 L; LYMPHOCYTES # (AUTO) 0.8 10^3/uL (1.0-4.0); LYMPHOCYTES % (AUTO) 7 % (12-44); MEAN CORPUSCULAR HEMOGLOBIN 29 pg (25-34); MEAN CORPUSCULAR HGB CONC 30 g/dL (32-36); MEAN CORPUSCULAR VOLUME 96 fL (80-99); MEAN PLATELET VOLUME 9.2 fL (9.0-12.2); MONOCYTES # (AUTO) 0.6 10^3/uL (0.0-1.0); MONOCYTES % (AUTO) 6 % (0-12); NEUTROPHILS # (AUTO) 9.3 10^3/uL (1.8-7.8); NEUTROPHILS % (AUTO) 85 % (42-75); PATIENT TEMP 98.4; PLATELET COUNT 425 10^3/uL (130-400); VENTILATOR NO; WHITE BLOOD COUNT 10.9 10^3/uL (4.3-11.0)
[2021-06-04] MEDS ORDERED: VANCOMYCIN INJECTION 1,000 MG in NS (IVPB) 250 ML IV SCH (10:15)
[2021-06-04 10:16] LABS: ALBUMIN 3.6 GM/DL (3.2-4.5); POTASSIUM 4.1 MMOL/L (3.6-5.0)
[2021-06-04 10:17] LABS: CALCIUM 9.3 MG/DL (8.5-10.1)
[2021-06-04 10:19] LABS: TOTAL PROTEIN 5.9 GM/DL (6.4-8.2)
[2021-06-04 10:20] LABS: BILIRUBIN,TOTAL 0.9 MG/DL (0.1-1.0)
[2021-06-04] MEDS ORDERED: VANCOMYCIN INJECTION 2,000 MG in NS IV 500 ML 500 ML IV ONE (10:21)
[2021-06-04 10:22] LABS: CREATININE SERUM 0.74 MG/DL (0.60-1.30)
[2021-06-04 10:23] LABS: PROTHROMBIN TIME PATIENT 13.6 SEC (12.2-14.7)
--- NOTE | 2021-06-04 10:33 | Diagnostic Imaging Report ---
INDICATION: Covid positive, sepsis. TECHNIQUE: Single view chest 10:17 AM. CORRELATION STUDY: 05/23/2021 FINDINGS: Stable cardiac enlargement and mild vascular prominence. Patchy areas of pulmonary opacity particularly at the right lung base and perihilar region as well as left lung base persists. Overall perhaps slightly increased in severity. IMPRESSION: 1. Patchy right perihilar, basilar and to lesser degree left basilar pulmonary opacities overall appear adversely changed. Favoring multilobe pneumonia. Dictated by: Dictated on workstation # [id number]
[2021-06-04 10:50] LABS: BAND NEUTROPHILS 3 %; LYMPHOCYTES % (MANUAL) 5 %; MONOCYTES % (MANUAL) 5 %; NEUTROPHILS % (MANUAL) 87 %
[2021-06-04 10:51] LABS: ANISOCYTOSIS SLIGHT; BASOPHILS % (MANUAL) 0 %; ELLIPT/OVALOCYTES SLIGHT; EOSINOPHILS % (MANUAL) 0 %; HYPOCHROMASIA SLIGHT; POIKILOCYTOSIS SLIGHT; STOMATOCYTES SLIGHT; TARGET CELLS SLIGHT
[2021-06-04] MEDS ORDERED: APIXABAN 5 MG (ELIQUIS) TABLET PO STA (11:44)
--- NOTE | 2021-06-04 11:44 | ED Cough/URI ---
General Chief Complaint: COVID 19 Suspect/Confirmed Stated Complaint: COVID Nursing Triage Note: Pt to ED via EMS for SOB. Pt was diagnosed with COVID and a PE. Pt reports increased SOB and cough today. History of Present Illness Date Seen by Provider: Jun 04, 2021 Time Seen by Provider: 11:15 Initial Comments 56-year-old female presents for shortness of breath and worsening of cough. She is on Ceftin at home for Covid pneumonia, per patient (her d/c orders do not show an antibiotic being prescribed). She reports not taking any of her home medications today. She is a chronic smoker with a history of COPD. She does not always wear her oxygen at home and her Sats drop quickly. She is on Eliquis for history of PE (05/09/21) She was discharged from this facility yesterday after being admitted on 05/23/2021 for right lower lobe pneumonia. Patient reports that she would like to be placed in long-term care, she has talked [facility] but because of her Covid status she is unable to be admitted at this time. Her SaO2 is 92 to 97% on 3 L per nasal cannula. She uses oxygen at all times when at home, EMS does report she was wearing her oxygen when they arrived. Timing/Duration: this morning (feels weak) Severity/Quality: productive cough (chronic) Prior Episodes/Possible Cause: frequent episodes, chronic episodes Associated Symptoms: cough, shortness of breath Allergies and Home Medications Allergies Coded Allergies: No Known Drug Allergies (Unverified , 04/29/19) Home Medications ALPRAZolam 0.25 Mg Tab, 0.25 MG PO Q8H PRN for ANXIETY Prescribed by: ACE DIAMOND on 06/03/21 1146 Albuterol Sulfate 1 Puff Puff, 2 PUFF INH Q4H PRN for SHORTNESS OF BREATH, (Reported) Albuterol Sulfate 1.25 Mg/3 Ml Vial.neb, 3 ML INH Q6H PRN for SHORTNESS OF B REATH, (Reported) Apixaban 5 Mg Tablet, 5 MG PO BID TAKE 2 TABLETS BID X 7 DAYS, THEN 1 TABLET BID Prescribed by: TAL YANEZ on 05/16/21 1232 Aspirin 81 Mg Tab.chew, 81 MG PO DAILY, (Reported) Budesonide 1 Mg/2 Ml Ampul.neb, 2 ML NEB BID, (Reported) Budesonide/Glycopyr/Formoterol 10.7 Gm Hfa.aer.ad, 2 PUFF INH BID, (Reported) Diltiazem HCl 240 Mg Cap.er.24h, 240 MG PO DAILY Prescribed by: ACE DIAMOND on 06/03/21 1144 Fluoxetine HCl 10 Mg Capsule, 10 MG PO DAILY, (Reported) LAST FILLED 04-03-2021 #30/ DAY SUPPLY Furosemide 80 Mg Tablet, 80 MG PO DAILY, (Reported) Gabapentin 600 Mg Tablet, 600 MG PO TID, (Reported) Lisinopril 10 Mg Tablet, 10 MG PO DAILY PRN for BLOOD PRESSURE, (Reported) Loratadine 10 Mg Tablet, 10 MG PO DAILY PRN for ALLERGY SYMPTOMS, (Reported) Metoprolol Tartrate 50 Mg Tablet, 50 MG PO BID, (Reported) Nystatin 15 Gm Cream..g., 1 APPLIC TP BID, (Reported) Oxycodone HCl 10 Mg Tablet, 10 MG PO Q4H PRN for PAIN-SEVERE (8-10) Prescribed by: ACE DIAMOND on 06/03/21 1146 Potassium Chloride 20 Meq Tablet.er, 20 MEQ PO DAILY, (Reported) Triamcinolone Acet 15 Gm Cr, 1 APPLIC TP BID, (Reported) Umeclidinium [place] 62.5 Mcg Blst.w.dev, 0 INH IH DAILY@0800 Prescribed by: TAL YANZE on 05/16/21 1137 Patient Home Medication List Home Medication List Reviewed: Yes Review of Systems Review of Systems Constitutional: no symptoms reported, see HPI Respiratory: see HPI, cough, short of breath (Chronic no worse than baseline) Cardiovascular: no symptoms reported, see HPI Gastrointestinal: no symptoms reported, see HPI All Other Systems Reviewed Negative Unless Noted: Yes Past Wzeruoz-Czyrun-Cmqxfw Hx Patient Social History Tobacco Use?: Yes Tobacco type used: Cigarettes Smoking Status: Current Everyday Smoker Substance use?: No Alcohol Use?: No Pt feels they are or have been: No Immunizations Up To Date Tetanus Booster (TDap): Unknown Seasonal Allergies Seasonal Allergies: Yes Past Medical History Surgery/Hospitalization HX: PT HAS A COPD HX. IS ON 2L VIA NC AT HOME. ALSO ON XARELTO. 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 TALENT History: Menopausal Sexually Transmitted Disease: No HIV/AIDS: No Genitourinary: Yes (NO DIALYSIS) Renal Failure, UTI-Chronic Gastrointestinal: Yes Gastroesophageal Reflux Musculoskeletal: Yes (CHRONIC GENERALIZED PAIN ) Endocrine: Yes (HAS BEEN ON INSULIN WHEN SHE HAS HAD STEROIDS-STATES SHE IS NOT DIABETIC) HEENT: No Cancer: No Psychosocial: Yes (OPIATE ABUSE, ALCOHOL ABUSE) Bipolar, Depression Integumentary: Yes (CHRONIC LEG WOUNDS/CELLULITIS) Blood Disorders: No Adverse Reaction/Blood Tranf: No Family Medical History Reviewed Nursing Family Hx Cerebrovascular accident (CVA) 19 FATHER, Onset:60 years & older FH: testicular cancer G8 BROTHER, Onset:30's - 40 Hypertension 19 FATHER, Onset:Unknown 19 MOTHER, Onset:Unknown G8 BROTHER, Onset:Unknown G8 BROTHER, Onset:Unknown Myocardial infarction 19 FATHER, Onset:40's - 50 Heart Disease, Hypertension SOCIAL HISTORY: -ETOH --ABUSE/REGULAR USE -DRUGS--LONG HISTORY OF OPIATE ABUSE -SMOKES 2 PPD ADDITIONAL PMH: -12/14/2020-TRANSFERRED TO [facility] FOR SEPTIC SHOCK WITH ACUTE RENAL FAILURE DUE TO CELLULITIS OF LEGS. -02/03/21-TRANSFERRED TO [facility] FOR SEPSIS WITH ACUTE RENAL FAILURE, ALSO DUE TO CELLULITIS OF LEGS. -ADMITTED AND INTUBATED X 1 MONTH IN SEPTEMBER 2019 FOR BILATERAL PNEUMONIA AND ARDS. HISTORY OF OPIATE ABUSE/ADDICTION--HAS BEEN ON SUBOXONE, BUT STATES SHE CANNOT AFFORD IT AND IS NO LONGER TAKING IT OF 03/11/21 Physical Exam Vital Signs - First Documented Capillary Refill : Less Than 3 Seconds Height: 5'5.00" Weight: 218lbs. 0.0oz. 98.452757bl; 35.00 BMI Method:Stated General Appearance: WD/WN, no apparent distress HEENT: PERRL/EOMI, normal ENT inspection, TMs normal, pharynx normal Neck: non-tender, full range of motion, supple, normal inspection Respiratory: chest non-tender, no respiratory distress, no accessory muscle use, decreased breath sounds Cardiovascular: normal peripheral pulses, regular rate, rhythm Gastrointestinal: normal bowel sounds, non tender, soft, distended Neurologic/Psychiatric: no motor/sensory deficits, alert, normal mood/affect, oriented x 3 Skin: normal color, warm/dry Focused Exam Lactate Level 06/04/21 09:50: Lactic Acid Level 1.66 Lactic Acid Level Laboratory Tests Test 06/04/21 09:50 Lactic Acid Level 1.66 MMOL/L (0.50-2.00) Procedures/Interventions Date of ETT Placement: Oct 07, 2019 Time of ETT Placement: 99 Progress/Results/Core Measures Suspected Sepsis SIRS Temperature: Pulse: 75 Respiratory Rate: 24 Laboratory Tests 06/04/21 09:50: White Blood Count 10.9 Blood Pressure 166 /98 Mean: 120 06/04/21 09:50: Lactic Acid Level 1.66 Laboratory Tests 06/04/21 09:50: Creatinine 0.74, INR Comment 1.0, Platelet Count 425H, Total Bilirubin 0.9 Results/Orders Lab Results Laboratory Tests Test 06/04/21 09:50 Range/Units White Blood Count 10.9 4.3-11.0 10^3/uL Red Blood Count 3.26 L 3.80-5.11 10^6/uL Hemoglobin 9.4 L 11.5-16.0 g/dL Hematocrit 31 L 35-52 % Mean Corpuscular Volume 96 80-99 fL Mean Corpuscular Hemoglobin 29 25-34 pg Mean Corpuscular Hemoglobin Concent 30 L 32-36 g/dL Red Cell Distribution Width 17.0 H 10.0-14.5 % Platelet Count 425 H 130-400 10^3/uL Mean Platelet Volume 9.2 9.0-12.2 fL Immature Granulocyte % (Auto) 2 % Neutrophils (%) (Auto) 85 H 42-75 % Lymphocytes (%) (Auto) 7 L 12-44 % Monocytes (%) (Auto) 6 0-12 % Eosinophils (%) (Auto) 0 0-10 % Basophils (%) (Auto) 0 0-10 % Neutrophils # (Auto) 9.3 H 1.8-7.8 10^3/uL Lymphocytes # (Auto) 0.8 L 1.0-4.0 10^3/uL Monocytes # (Auto) 0.6 0.0-1.0 10^3/uL Eosinophils # (Auto) 0.0 0.0-0.3 10^3/uL Basophils # (Auto) 0.0 0.0-0.1 10^3/uL Immature Granulocyte # (Auto) 0.2 H 0.0-0.1 10^3/uL Neutrophils % (Manual) 87 % Lymphocytes % (Manual) 5 % Monocytes % (Manual) 5 % Eosinophils % (Manual) 0 % Basophils % (Manual) 0 % Band Neutrophils 3 % Hypochromasia SLIGHT Poikilocytosis SLIGHT Basophilic Stippling SLIGHT Anisocytosis SLIGHT Target Cells SLIGHT Stomatocytes SLIGHT Elliptocytes SLIGHT Prothrombin Time 13.6 12.2-14.7 SEC INR Comment 1.0 0.8-1.4 Activated Partial Thromboplast Time 24 24-35 SEC Blood Gas Puncture Site LT RAD Blood Gas Patient Temperature 98.4 Arterial Blood pH 7.46 H 7.37-7.43 Arterial Blood Partial Pressure CO2 50 H 35-45 MMHG Arterial Blood Partial Pressure O2 107 H 79-93 MMHG Arterial Blood HCO3 35 H 23-27 MMOL/L Arterial Blood Total CO2 36.2 H 21.0-31.0 MMOL/L Arterial Blood Oxygen Saturation 99 94-100 % Arterial Blood Base Excess 10.2 H -2.5-2.5 MMOL/L Jame Test YES-POS Blood Gas Ventilator Setting NO Blood Gas Inspired Oxygen 6 L Sodium Level 143 135-145 MMOL/L Potassium Level 4.1 3.6-5.0 MMOL/L Chloride Level 101 98-107 MMOL/L Carbon Dioxide Level 32 21-32 MMOL/L Anion Gap 10 5-14 MMOL/L Blood Urea Nitrogen 31 H 7-18 MG/DL Creatinine 0.74 0.60-1.30 MG/DL Estimat Glomerular Filtration Rate 81 BUN/Creatinine Ratio 42 Glucose Level 102 70-105 MG/DL Lactic Acid Level 1.66 0.50-2.00 MMOL/L Calcium Level 9.3 8.5-10.1 MG/DL Corrected Calcium 9.6 8.5-10.1 MG/DL Total Bilirubin 0.9 0.1-1.0 MG/DL Aspartate Amino Transf (AST/SGOT) 16 5-34 U/L Alanine Aminotransferase (ALT/SGPT) 49 0-55 U/L Alkaline Phosphatase 76 40-136 U/L Total Protein 5.9 L 6.4-8.2 GM/DL Albumin 3.6 3.2-4.5 GM/DL My Orders Orders - SRAVAN LUCIANO Apixaban Tablet (Eliquis Tablet) (06/04/21 11:44) Medications Given in ED Current Medications Medications Dose Ordered Sig/Chery Route Start Time Stop Time Status Last Admin Dose Admin Cefepime HCl 1000 mg/Sterile Water 10 ml @ 200 mls/hr ONCE ONCE IV 06/04/21 09:45 06/04/21 09:47 DC 06/04/21 10:06 200 MLS/HR Vancomycin HCl 2000 mg/Sodium Chloride 500 ml @ 260 mls/hr 1021 ONCE IV 06/04/21 10:21 06/04/21 12:16 DC 06/04/21 10:25 260 MLS/HR Vital Signs/I&O 06/04/21 06/04/21 06/04/21 09:33 09:33 13:21 Temp 36.9 36.9 Pulse 75 80 Resp 24 20 B/P (MAP) 166/98 (120) 183/103 (129) Pulse Ox 99 99 O2 Delivery Nasal Cannula Nasal Cannula Nasal Cannula O2 Flow Rate 4.00 4.00 4.00 Capillary Refill : Less Than 3 Seconds Blood Pressure Mean: 120 Progress Note : Time: 11:15 Progress Note Patient seen and evaluated. Will obtain labs, chest x-ray and start vancomycin and pain. 12:[address] Diamond, reviewed labs and chest x-ray. He evaluated the patient yesterday prior to discharge. Based on her current assessment findings and diagnostic studies she did not meet criteria for readmission. It is felt she can be managed at home she must be compliant with her treatment plan. And follow-up with her primary care provider. 1230 discussed discharge planning with the patient. She is spoke to family members and they will be available to help with her transportation home and care needs at home until she is able to be placed in long-term care. Discharge instructions and return precautions reviewed. Diagnostic Imaging Diagonstic Imaging: Xray Plain Films/CT/US/NM/MRI: chest Comments NAME: ZEKE MEDELLIN [facility] REC#: [id number] PT STATUS: REG ER : 1965 PHYSICIAN: WU HUNG MD ADMIT DATE: 06/04/21/ER Draft Date of Exam:06/04/21 CHEST 1 VIEW, AP/PA ONLY INDICATION: Covid positive, sepsis. TECHNIQUE: Single view chest 10:17 AM. CORRELATION STUDY: 05/23/2021 FINDINGS: Stable cardiac enlargement and mild vascular prominence. Patchy areas of pulmonary opacity particularly at the right lung base and perihilar region as well as left lung base persists. Overall perhaps slightly increased in severity. IMPRESSION: 1. Patchy right perihilar, basilar and to lesser degree left basilar pulmonary opacities overall appear adversely changed. Favoring multilobe pneumonia. Dictated on workstation # [id number] Dict: 06/04/21 1017 Trans: 06/04/21 1032 [id number] Interpreted by: BALBINA BORJAS DO Electronically signed by: Reviewed: Reviewed by Me Departure Impression Primary Impression: Pneumonia Qualified Codes: J18.9 - Pneumonia, unspecified organism Additional Impressions: COVID-19 COPD (chronic obstructive pulmonary disease) Qualified Codes: J43.9 - Emphysema, unspecified Tobacco abuse Disposition: 01 HOME, SELF-CARE Condition: Stable Departure-Patient Inst. Decision time for Depature: 12:15 Referrals: BROOKE JOYNER DO (PCP/Family) Primary Care Physician Patient Instructions: Recovery After COVID-19, Pneumonia, Adult (DC) Add. Discharge Instructions: Continue to take your home medications as prescribed. Follow-up with Dr. JOYNER if your symptoms are not improving or worsen. Consider long-term care if you are unable to take care of your needs at home. Return to the Emergency Dept for new, urgent healthcare needs. All discharge instructions reviewed with patient and/or family. Voiced understanding. Copy Copies To 1: BROOKE JOYNER AMY ARNP Jun 04, 2021 11:43
[2021-06-04 13:21] VITALS: BP 183/103
== END 2021-06-04 13:10 | disposition home or self-care (01) ==
LOC: EDUNIT# 09:33 → ER 09:34
DX: U07.1 COVID-19 (principal); J18.9 Pneumonia, unspecified organism; J44.9 Chronic obstructive pulmonary disease, unspecified; F17.210 Nicotine dependence, cigarettes, uncomplicated; I10 Essential (primary) hypertension; F32.9 Major depressive disorder, single episode, unspecified; I48.91 Unspecified atrial fibrillation; Z86.718 Personal history of other venous thrombosis and embolism; Z79.82 Long term (current) use of aspirin; Z79.01 Long term (current) use of anticoagulants; Z79.899 Other long term (current) drug therapy
CPT/HCPCS: 36415; 71045; 80053; 82805; 83605; 85007; 85027; 85610; 85730; 87040

== ENCOUNTER 2021-06-05 03:38 | Emergency (ER) | payer BC, MEDICAID ==
[~2021-06-05] VITALS: Ht 170 cm; Wt 84.0 kg
[2021-06-05] MEDS ORDERED: ETOMIDATE IV SOLN 20 MG/10 ML VIAL IV ONE (03:41)
[2021-06-05] MEDS ORDERED: SUCCINYLCHOLINE INJ 100 MG/5 ML SYR/VIAL INJ ONE (03:41)
[2021-06-05] MEDS ORDERED: MIDAZOLAM 5 MG/5 ML (VERSED) VIAL IJ ONE (03:41)
[2021-06-05] MEDS ORDERED: RT-ALBUTEROL SULF 2.5 MG/3 ML PRE-MIX VIAL INH STA (04:10)
[2021-06-05 04:13] LABS: BASOPHILS % (AUTO) 0 % (0-10); EOSINOPHILS # (AUTO) 0.2 10^3/uL (0.0-0.3); EOSINOPHILS % (AUTO) 2 % (0-10); HEMATOCRIT 37 % (35-52); LYMPHOCYTES % (AUTO) 8 % (12-44); MEAN CORPUSCULAR HEMOGLOBIN 29 pg (25-34); MEAN CORPUSCULAR HGB CONC 30 g/dL (32-36); MEAN CORPUSCULAR VOLUME 96 fL (80-99); MEAN PLATELET VOLUME 8.9 fL (9.0-12.2); MONOCYTES % (AUTO) 7 % (0-12); NEUTROPHILS % (AUTO) 82 % (42-75); PLATELET COUNT 480 10^3/uL (130-400); WHITE BLOOD COUNT 13.5 10^3/uL (4.3-11.0)
[2021-06-05] MEDS ORDERED: RT-ALBUTEROL/IPRATROPIUM 3 ML (DUONEB) VIAL INH ONE (04:15)
[2021-06-05] MEDS ORDERED: ONDANSETRON 4 MG/2 ML (SDV) Z0FRAN IVP ONE (04:15)
[2021-06-05 04:18] LABS: ABG BASE EXCESS 10.8 MMOL/L (-2.5-2.5); ABG OXYGEN SATURATION 97 % (94-100); ABG PCO2 45 MMHG (35-45); ABG PO2 76 MMHG (79-93); ABG TCO2 36.4 MMOL/L (21.0-31.0)
[2021-06-05 04:19] LABS: ALLENS TEST YES-POS; INSPIRED O2 6L; PATIENT TEMP 35.7; VENTILATOR NO
[2021-06-05 04:32] LABS: ALBUMIN 3.8 GM/DL (3.2-4.5); BILIRUBIN,TOTAL 1.3 MG/DL (0.1-1.0); CALCIUM 9.6 MG/DL (8.5-10.1); CREATININE SERUM 0.72 MG/DL (0.60-1.30); POTASSIUM 3.5 MMOL/L (3.6-5.0); TOTAL PROTEIN 6.5 GM/DL (6.4-8.2)
[2021-06-05 04:37] VITALS: BP 196/98
[2021-06-05] MEDS ORDERED: LABETALOL HCL 20 MG/4 ML VIAL ONE (05:02)
[2021-06-05] MEDS ORDERED: LABETALOL HCL 20 MG/4 ML VIAL IV ONE (05:15)
[2021-06-05] MEDS ORDERED: niCARdipine IV FOR DRIP 50 MG KIT ONE (05:18)
[2021-06-05] MEDS ORDERED: NS (IVPB) 250 ML ONE (05:20)
--- NOTE | 2021-06-05 05:26 | ED General ---
General Chief Complaint: Respiratory Problems Stated Complaint: COVID+,PNA,NOT ALERT Nursing Triage Note: PT PRESENTS TO THE ED VIA EMS TO ROOM 10 FROM HOME, DAUGHTER CALLED EMS WHEN SHE FOUND THE PATIENT AT HOME VERY LETHARGIC AND DIFFICULT TO ROUSE, PT VERBALIZES GENERALIZED MALAISE. DENIES PAIN. PT WAS DISCHARGED FROM THE ED YESTERDAY, IS A KNOW COVID PT. HAS A HX OF PULMONARY EMBOLISMS. Source of Information: Patient, EMS, Family, Old Records Exam Limitations: No Limitations History of Present Illness Date Seen by Provider: Jun 05, 2021 Time Seen by Provider: 03:40 Initial Comments This 56-year-old woman is brought to the emergency room via EMS due to altered mental status noted at home by her daughter. She has had multiple admissions recently including admission on May 11 for pulmonary embolus and May 22 for pneumonia and COVID-19 infection. She was discharged from the hospital June 03. She returned to the ER June 04 for reevaluation. She did not meet admission criteria at that time. After returning home from the ER, her daughter later noted that she was not responding appropriately when they were trying to arouse her from sleep. Patient had not been compliant with her nasal cannula oxygen. Oxygen saturations were in the 80s on room air. Resuscitating her oxygen saturation did not resolve her mental status issues according to EMS. Patient is able to communicate some. She acknowledges where she is but states the incorrect age. She denies any pain. GCS was initially 11. She states she is in no pain. She does attempt to answer most questions but with brief answers and mumbling. She is moving very little air one exam. EMS notes she did take her Eliquis today. Allergies and Home Medications Allergies Coded Allergies: No Known Drug Allergies (Unverified , 04/29/19) Home Medications ALPRAZolam 0.25 Mg Tab, 0.25 MG PO Q8H PRN for ANXIETY Prescribed by: ACE DIAMOND on 06/03/21 1146 Albuterol Sulfate 1 Puff Puff, 2 PUFF INH Q4H PRN for SHORTNESS OF BREATH, (Reported) Albuterol Sulfate 1.25 Mg/3 Ml Vial.neb, 3 ML INH Q6H PRN for SHORTNESS OF BREATH, (Reported) Apixaban 5 Mg Tablet, 5 MG PO BID TAKE 2 TABLETS BID X 7 DAYS, THEN 1 TABLET BID Prescribed by: TAL YANEZ on 05/16/21 1232 Aspirin 81 Mg Tab.chew, 81 MG PO DAILY, (Reported) Budesonide 1 Mg/2 Ml Ampul.neb, 2 ML NEB BID, (Reported) Budesonide/Glycopyr/Formoterol 10.7 Gm Hfa.aer.ad, 2 PUFF INH BID, (Reported) Diltiazem HCl 240 Mg Cap.er.24h, 240 MG PO DAILY Prescribed by: ACE DIAMOND on 06/03/21 1144 Fluoxetine HCl 10 Mg Capsule, 10 MG PO DAILY, (Reported) LAST FILLED 04-03-2021 # DAY SUPPLY Furosemide 80 Mg Tablet, 80 MG PO DAILY, (Reported) Gabapentin 600 Mg Tablet, 600 MG PO TID, (Reported) Lisinopril 10 Mg Tablet, 10 MG PO DAILY PRN for BLOOD PRESSURE, (Reported) Loratadine 10 Mg Tablet, 10 MG PO DAILY PRN for ALLERGY SYMPTOMS, (Reported) Metoprolol Tartrate 50 Mg Tablet, 50 MG PO BID, (Reported) Nystatin 15 Gm Cream..g., 1 APPLIC TP BID, (Reported) Oxycodone HCl 10 Mg Tablet, 10 MG PO Q4H PRN for PAIN-SEVERE (8-10) Prescribed by: ACE DIAMOND on 06/03/21 1146 Potassium Chloride 20 Meq Tablet.er, 20 MEQ PO DAILY, (Reported) Triamcinolone Acet 15 Gm Cr, 1 APPLIC TP BID, (Reported) Umeclidinium [place] 62.5 Mcg Blst.w.dev, 0 INH IH DAILY@0800 Prescribed by: TAL YANEZ on 05/16/21 1137 Patient Home Medication List Home Medication List Reviewed: Yes Review of Systems Review of Systems Constitutional: no symptoms reported EENTM: no symptoms reported Respiratory: see HPI Cardiovascular: no symptoms reported Gastrointestinal: no symptoms reported Genitourinary: no symptoms reported : No Musculoskeletal: no symptoms reported Skin: no symptoms reported Psychiatric/Neurological: See HPI Hematologic/Lymphatic: See HPI Immunological/Allergic: no symptoms reported All Other Systems Reviewed Negative Unless Noted: Yes Past Eglaico-Eleelt-Bqkfbw Hx Patient Social History Tobacco Use?: Yes Tobacco type used: Cigarettes Smoking Status: Current Everyday Smoker Substance use?: No Alcohol Use?: No Immunizations Up To Date Tetanus Booster (TDap): Unknown Influenza Vaccine Up-to-Date: No; Not Current First/Initial COVID19 Vaccinat: NO Second COVID19 Vaccination Reinier: NO Seasonal Allergies Seasonal Allergies: Yes Past Medical History Surgery/Hospitalization HX: PT HAS A COPD HX. IS ON 2L VIA NC AT HOME. ALSO ON XARELTO. pmh: afib, htn, cellulitis. PE'S Surgeries: Yes (CARDIAC CATH 2017) Hysterectomy Respiratory: Yes (O2 AT 2L/NC CONTINUOUS;INTUBATED WITH ARDS/PNEUMONIAL 09/2019, COVID-19 May) Pneumonia, Chronic Bronchitis, COPD Cardiac: Yes (DVT ARM AND LEG; CARDIAC CATH 2017-NORMAL) Atrial Fibrillation, Deep Vein Thrombosis, High Cholesterol, Hypertension Neurological: Yes Paralysis 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 Disorders: Yes Female 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 Disorders: Denies MOLDER HAND History: Menopausal Sexually Transmitted Disease: No HIV/AIDS: No Genitourinary: Yes (NO DIALYSIS) Renal Failure, UTI-Chronic Gastrointestinal: Yes Gastroesophageal Reflux Musculoskeletal: Yes (CHRONIC GENERALIZED PAIN ) Endocrine: Yes (HAS BEEN ON INSULIN WHEN SHE HAS HAD STEROIDS-STATES SHE IS NOT DIABETIC) HEENT: No Cancer: No Psychosocial: Yes (OPIATE ABUSE, ALCOHOL ABUSE) Bipolar, Depression Integumentary: Yes (CHRONIC LEG WOUNDS/CELLULITIS) Blood Disorders: No Adverse Reaction/Blood Tranf: No Family Medical History Cerebrovascular accident (CVA) 19 FATHER, Onset:60 years & older FH: testicular cancer G8 BROTHER, Onset:30's - 40 Hypertension 19 FATHER, Onset:Unknown 19 MOTHER, Onset:Unknown G8 BROTHER, Onset:Unknown G8 BROTHER, Onset:Unknown Myocardial infarction 19 FATHER, Onset:40's - 50 Heart Disease, Hypertension SOCIAL HISTORY: -ETOH --ABUSE/REGULAR USE -DRUGS--LONG HISTORY OF OPIATE ABUSE -SMOKES 2 PPD ADDITIONAL PMH: -12/14/2020-TRANSFERRED TO [facility] FOR SEPTIC SHOCK WITH ACUTE RENAL FAILURE DUE TO CELLULITIS OF LEGS. -02/03/21-TRANSFERRED TO [facility] FOR SEPSIS WITH ACUTE RENAL FAILURE, ALSO DUE TO CELLULITIS OF LEGS. -ADMITTED AND INTUBATED X 1 MONTH IN SEPTEMBER 2019 FOR BILATERAL PNEUMONIA AND ARDS. HISTORY OF OPIATE ABUSE/ADDICTION--HAS BEEN ON SUBOXONE, BUT STATES SHE CANNOT AFFORD IT AND IS NO LONGER TAKING IT OF 03/11/21 Physical Exam-Suspected Sepsis Physical Exam Vital Signs Vital Signs - First Documented 06/05/21 06/05/21 03:38 09:16 Temp 35.7 Pulse 68 Resp 22 B/P (MAP) 199/114 (142) Pulse Ox 95 O2 Delivery Nasal Cannula O2 Flow Rate 6.00 FiO2 30 Capillary Refill : Less Than 3 Seconds Blood Pressure Mean: 142 Height, Weight, BMI Height: 5'5.00" Weight: 218lbs. 0.0oz. 98.296556eu; 29.00 BMI Method:Stated General Appearance: WD/WN, Other (Lethargic) HEENT: PERRL/EOMI, Normal ENT Inspection, Other (Per pleuritic markings on her tongue suggestive of contusions or hemorrhage) Neck: Normal Inspection Respiratory: Accessory Muscle Use, Crackles (Coarse crackles in the bases), Decreased Breath Sounds (Poor air movement) Cardiovascular: Regular Rate, Rhythm, No Edema, No Murmur Gastrointestinal: Normal Bowel Sounds, Non Tender, Soft Extremity: Normal Inspection, No Pedal Edema Neurologic/Psychiatric: Other (Lethargic, does not follow commands, does have some purposeful movements, generally lethargic) Skin: normal color, warm/dry Focused Exam Lactate Level 06/05/21 03:50: Lactic Acid Level 1.06 Lactic Acid Level Procedures/Interventions Date of ETT Placement: Jun 05, 2020 Time of ETT Placement: 06:00 Tube Size: 7.5 Medications: Etomidate, Propofol, Succinylcholine, Versed Positive End Tide CO2: Yes Breath Sounds after Intubation: bilateral-equal Intubation Complications: no complications Post Intubation Xray: Yes Lines are in good position Progress/Results/Core Measures Suspected Sepsis SIRS Temperature: Pulse: 75 Respiratory Rate: 26 Laboratory Tests 06/05/21 03:50: White Blood Count 13.5H Blood Pressure 196 /98 Mean: 142 06/05/21 03:50: Lactic Acid Level 1.06 Laboratory Tests 06/05/21 03:50: Creatinine 0.72, INR Comment 1.0, Platelet Count 480H, Total Bilirubin 1.3H Results/Orders Lab Results Laboratory Tests Test 06/05/21 03:50 06/05/21 05:00 Range/Units White Blood Count 13.5 H 4.3-11.0 10^3/uL Red Blood Count 3.84 3.80-5.11 10^6/uL Hemoglobin 11.0 L 11.5-16.0 g/dL Hematocrit 37 35-52 % Mean Corpuscular Volume 96 80-99 fL Mean Corpuscular Hemoglobin 29 25-34 pg Mean Corpuscular Hemoglobin Concent 30 L 32-36 g/dL Red Cell Distribution Width 17.0 H 10.0-14.5 % Platelet Count 480 H 130-400 10^3/uL Mean Platelet Volume 8.9 L 9.0-12.2 fL Immature Granulocyte % (Auto) 2 % Neutrophils (%) (Auto) 82 H 42-75 % Lymphocytes (%) (Auto) 8 L 12-44 % Monocytes (%) (Auto) 7 0-12 % Eosinophils (%) (Auto) 2 0-10 % Basophils (%) (Auto) 0 0-10 % Neutrophils # (Auto) 11.0 H 1.8-7.8 10^3/uL Lymphocytes # (Auto) 1.0 1.0-4.0 10^3/uL Monocytes # (Auto) 1.0 0.0-1.0 10^3/uL Eosinophils # (Auto) 0.2 0.0-0.3 10^3/uL Basophils # (Auto) 0.0 0.0-0.1 10^3/uL Immature Granulocyte # (Auto) 0.2 H 0.0-0.1 10^3/uL Prothrombin Time 14.0 12.2-14.7 SEC INR Comment 1.0 0.8-1.4 Activated Partial Thromboplast Time 28 24-35 SEC Blood Gas Puncture Site R RADIAL Blood Gas Patient Temperature 35.7 Arterial Blood pH 7.50 H 7.37-7.43 Arterial Blood Partial Pressure CO2 45 35-45 MMHG Arterial Blood Partial Pressure O2 76 L 79-93 MMHG Arterial Blood HCO3 35 H 23-27 MMOL/L Arterial Blood Total CO2 36.4 H 21.0-31.0 MMOL/L Arterial Blood Oxygen Saturation 97 94-100 % Arterial Blood Base Excess 10.8 H -2.5-2.5 MMOL/L Jame Test YES-POS Blood Gas Ventilator Setting NO Blood Gas Inspired Oxygen 6L Sodium Level 141 135-145 MMOL/L Potassium Level 3.5 L 3.6-5.0 MMOL/L Chloride Level 100 98-107 MMOL/L Carbon Dioxide Level 31 21-32 MMOL/L Anion Gap 10 5-14 MMOL/L Blood Urea Nitrogen 24 H 7-18 MG/DL Creatinine 0.72 0.60-1.30 MG/DL Estimat Glomerular Filtration Rate 84 BUN/Creatinine Ratio 33 Glucose Level 100 70-105 MG/DL Lactic Acid Level 1.06 0.50-2.00 MMOL/L Calcium Level 9.6 8.5-10.1 MG/DL Corrected Calcium 9.8 8.5-10.1 MG/DL Total Bilirubin 1.3 H 0.1-1.0 MG/DL Aspartate Amino Transf (AST/SGOT) 21 5-34 U/L Alanine Aminotransferase (ALT/SGPT) 50 0-55 U/L Alkaline Phosphatase 79 40-136 U/L Lactate Dehydrogenase 424 H 125-220 U/L C-Reactive Protein High Sensitivity 2.26 H 0.00-0.50 MG/DL B-Type Natriuretic Peptide 280.0 H <100.0 PG/ML Total Protein 6.5 6.4-8.2 GM/DL Albumin 3.8 3.2-4.5 GM/DL Procalcitonin 0.05 <0.10 NG/ML Urine Color YELLOW Urine Clarity CLEAR Urine pH 8.0 5-9 Urine Specific [place] 1.020 1.016-1.022 Urine Protein NEGATIVE NEGATIVE Urine Glucose (UA) NEGATIVE NEGATIVE Urine Ketones NEGATIVE NEGATIVE Urine Nitrite NEGATIVE NEGATIVE Urine Bilirubin NEGATIVE NEGATIVE Urine Urobilinogen 0.2 < = 1.0 MG/DL Urine Leukocyte Esterase NEGATIVE NEGATIVE Urine RBC (Auto) NEGATIVE NEGATIVE Urine RBC NONE /HPF Urine WBC RARE /HPF Urine Squamous Epithelial Cells RARE /HPF Urine Crystals NONE /LPF Urine Bacteria TRACE /HPF Urine Casts NONE /LPF Urine Mucus NEGATIVE /LPF Urine Culture Indicated CULTURE PENDING Micro Results Microbiology 06/05/21 Urine Culture - Final, Complete NO GROWTH My Orders Orders - HOUSTON ALMAZAN MD Cbc With Automated Diff (06/05/21 03:58) Comprehensive Metabolic Panel (06/05/21 03:58) Blood Culture (06/05/21 03:58) Urinalysis (06/05/21 03:58) Urine Culture (06/05/21 03:58) Protime With Inr (06/05/21 03:58) Partial Thromboplastin Time (06/05/21 03:58) Chest 1 View, Ap/Pa Only (06/05/21 03:58) Ed Iv/Invasive Line Start (06/05/21 03:58) Ed Iv/Invasive Line Start (06/05/21 03:58) Vital Signs Adult Sepsis Patie Q15M (06/05/21 03:58) O2 (06/05/21 03:58) Remove Rings In Anticipation O (06/05/21 03:58) Lactic Acid Analyzer (06/05/21 03:58) Procalcitonin (Pct) (06/05/21 03:58) Hs C Reactive Protein (06/05/21 03:58) LDH (06/05/21 03:58) Ct Head Wo (06/05/21 04:02) Albuterol Pre-Mix Nebs (Rt) (Proventil (06/05/21 04:10) Albuterol/Ipra Inhalation Soln (Duoneb I (06/05/21 04:15) Svn Small Volume Nebulizer (06/05/21 04:10) Svn Small Volume Nebulizer (06/05/21 04:10) Dexamethasone Injection (Decadron Inje (06/05/21 04:15) Ondansetron Injection (Zofran Injectio (06/05/21 04:15) Arterial Blood Gas (06/05/21 04:13) BNP (06/05/21 04:13) Labetalol Injection (Normodyne Injection (06/05/21 05:15) Ns (Ivpb) (Sodium C... W/Nicardipine Iv (06/05/21 05:15) Osorio Cath (06/05/21 05:02) Labetalol Injection (Normodyne Injection (06/05/21 05:02) Nicardipine Iv For Drip (Cardene I.V. (O (06/05/21 05:18) Ns (Ivpb) (Sodium Chloride 0.9%) (06/05/21 05:20) Human Prothrombin Complx(Pcc) (Kcentra K (06/05/21 05:45) Propofol Drip (Icu) (Diprivan Drip (Icu) (06/05/21 06:03) Etomidate Injection (Amidate Injection) (06/05/21 03:41) Midazolam Injection (Versed Injection) (06/05/21 03:41) Succinylcholine Injection (Succinylcholi (06/05/21 03:41) Medications Given in ED Vital Signs/I&O Capillary Refill : Less Than 3 Seconds Blood Pressure Mean: 142 Progress Note #1: Time: 05:16 Progress Note Patient was noted to be moving air relatively poorly on initial exam. She was started on BiPAP. CT of the head has been obtained as it was noted she is hypertensive and on Eliquis. CT did reveal a large left-sided hemorrhage. I have been unable to contact the daughter or mother at the contacts listed in the chart to discuss disposition and to confirm full CODE STATUS. I am therefore proceeding with plans to transfer to a neurosurgical capable facility and to intubate for stability in preparation for transfer. Patient has received Solu- Medrol and an hour-long nebulizer treatment. Progress Note #2: Time: 06:17 Progress Note After intracranial hemorrhage was identified, placement was sought. [facility], [facility], and [facility] all declined due to capacities. [facility] did not have an ICU bed available. I employed the services of [facility]. They were able to find a bed at [facility]. I discussed the case with Dr. Henley who accepted the transfer. Patient was intubated to protect her airway. Induction was achieved with etomidate and succinylcholine. Maintenance of sedation was provided with versed and propofol bolus and drip. Labetalol was initially given to control her hypertension after identifying the intracranial hemorrhage. This was followed by a Cardene drip with a target systolic blood pressure of 140. I did discuss the situation with patient's daughter who agreed with aggressive plan of care and full code status. Probable poor prognosis was communicated to her daughter. KCentra 2500 units was administered for attempt at anticoagulant reversal. Progress Note #3: Progress Note Care of this patient was transitioned to Dr. Anthony at 07:00. Transfer was delayed due to flight limitations from fog and aircraft availability. Diagnostic Imaging Diagonstic Imaging: Xray Plain Films/CT/US/NM/MRI: chest Comments Chest x-ray viewed by me and reports reviewed. See report below: NAME: ZEKE MEDELLIN MED REC#: [id number] PT STATUS: REG ER : 1965 PHYSICIAN: HOUSTON ALMAZAN MD ADMIT DATE: 06/05/21/ER Draft Date of Exam:06/05/21 CHEST 1 VIEW, AP/PA ONLY Indication: COVID pneumonia Portable chest shows normal heart size and vascularity. There are bilateral infiltrates in the lower lobes with the right lower lobe showing slightly more opacification compared to the 06/04/2021 study. There is no effusion or pneumothorax. IMPRESSION: Increasing infiltrates. Report was faxed to Tommie/RN Infection Control by redd at 6:44AM. Dictated on workstation # [id number] Dict: 06/05/21637 Trans: 06/05/21 06 REDD Interpreted by: DELTA QUINONES MD Diagonstic Imaging: Xray Plain Films/CT/US/NM/MRI: chest Comments Chest x-ray for position of lines viewed by me and report reviewed. See report below: NAME: ZEKE MEDELLIN [facility] REC#: [id number] PT STATUS: REG ER : 1965 PHYSICIAN: ANNALISA ANTHONY MD ADMIT DATE: 06/05/21/ER Draft Date of Exam:06/05/21 CHEST 1 VIEW, AP/PA ONLY Indication: Intubation Single view of the chest shows interval placement of an ET tube since the earlier study performed on 06/05. Tip is in good position. There has been placement of an OG tube. Tip is in the mid esophagus and could be advanced 20-30 cm. There are persistent basilar infiltrates and atelectasis. There is no effusion or pneumothorax. IMPRESSION: Satisfactory ET tube placement. The OG tube is in the mid esophagus level. Report was called to nurse Smitha [facility] ER by redd at 7:05am. Dictated on workstation # [id number] Dict: 06/05/2159 Trans: 06/05/21 07 REDD Interpreted by: DELTA QUINONES MD Diagonstic Imaging: CT Plain Films/CT/US/NM/MRI: head Comments CT head viewed by me, discussed with the radiologist, and report reviewed. See report below: NAME: ZEKE MEDELLIN [facility] REC#: [id number] PT STATUS: REG ER : 1965 PHYSICIAN: HOUSTON ALMAZAN MD ADMIT DATE: 06/05/21/ER Draft Date of Exam:06/05/21 CT HEAD WO PROCEDURE: CT head without contrast. TECHNIQUE: Multiple contiguous axial images were obtained through the brain without the use of intravenous contrast. Auto Exposure Controls were utilized during the CT exam to meet ALARA standards for radiation dose reduction. INDICATION: Altered mental status. COMPARISON: 03/12/2021. FINDINGS: There is a large acute intraparenchymal hematoma in the left parietal lobe measuring 7.1 x 3.8 x 4.7 cm with moderate stranding vasogenic edema. This has intraventricular extension into the left lateral ventricle. Additionally, there are multiple sites of white matter hypoattenuation in bilateral frontal and right parietal lobes. In these regions of hypoattenuation, there are some regions of sparing of the cortex. In the right frontal region, there is some punctate petechial acute hemorrhage present. Basilar cisterns remain patent. There is approximately 4 mm of left to right midline shift. Some hypoattenuation is also present in the bilateral cerebellar hemispheres. No acute skull fracture. Air-fluid levels within the paranasal sinuses. Mastoid air cells are clear. IMPRESSION: 1. Large intraparenchymal hematoma in the left parietal lobe has intraventricular extension. 2. Multifocal areas of subcortical hypoattenuation in the bilateral frontal and right parietal lobes may be due to watershed infarcts or toxic metabolic injury. Some of these sites are associated with petechial hemorrhage. 3. Findings are in agreement with the preliminary report. Dictated on workstation # [id number] Dict: 06/05/2110 Trans: 06/05/21619 [id number] Interpreted by: CHIKI GARCIA MD Departure Impression Primary Impression: Intracranial hemorrhage Additional Impressions: Altered mental status Qualified Codes: R41.82 - Altered mental status, unspecified Malignant hypertension COVID-19 Disposition: 02 XFER SHT-TRM HOSP Condition: Stable Transfer Transfer Reason: Exceeds level of care Time Spoke to Accepting Phy: 06:17 Transfer Progress Notes Transfer accepted by Dr. Henley, hospitalist at [facility] in [place], [place]. Transfer Time: 12:55 Transfer Facility: [facility] Method of Transfer: Air Departure-Patient Inst. Referrals: BROOKE JOYNER DO (PCP/Family) Primary Care Physician Copy Copies To 1: BROOKE JOYNER JOSHUA T MD Jun 05, 2021 05:26
[2021-06-05] MEDS: niCARdipine IV 50 MG in NS (IVPB) 230 ML IV SCH ×2 (05:30→12:54)
[2021-06-05 05:32] LABS: BILIRUBIN,URINE NEGATIVE (NEGATIVE); CLARITY,URINE CLEAR; COLOR,URINE YELLOW; GLUCOSE, URINE (UA) NEGATIVE (NEGATIVE); KETONES,URINE NEGATIVE (NEGATIVE); LEUKOCYTE ESTERASE ,URINE NEGATIVE (NEGATIVE); NITRITE,URINE NEGATIVE (NEGATIVE); PROTEIN,URINE NEGATIVE (NEGATIVE)
[2021-06-05 05:39] LABS: BACTERIA,URINE TRACE /HPF; SQUAMOUS EPITHELIAL CELL,UR RARE /HPF; WBC,URINE RARE /HPF
[2021-06-05] MEDS ORDERED: HUMAN PROTHROMBIN COMPLX(PCC) 500 UNIT (KCENTRA) IV ONE (05:45)
[2021-06-05] MEDS ORDERED: PROPOFOL DRIP (ICU) 100 ML IV ONE (06:03)
[2021-06-05] MEDS: PROPOFOL DRIP (ICU) 100 ML IV SCH ×3 (06:08→12:50)
--- NOTE | 2021-06-05 06:21 | Diagnostic Imaging Report ---
PROCEDURE: CT head without contrast. TECHNIQUE: Multiple contiguous axial images were obtained through the brain without the use of intravenous contrast. Auto Exposure Controls were utilized during the CT exam to meet ALARA standards for radiation dose reduction. INDICATION: Altered mental status. COMPARISON: 03/12/2021. FINDINGS: There is a large acute intraparenchymal hematoma in the left parietal lobe measuring 7.1 x 3.8 x 4.7 cm with moderate stranding vasogenic edema. This has intraventricular extension into the left lateral ventricle. Additionally, there are multiple sites of white matter hypoattenuation in bilateral frontal and right parietal lobes. In these regions of hypoattenuation, there are some regions of sparing of the cortex. In the right frontal region, there is some punctate petechial acute hemorrhage present. Basilar cisterns remain patent. There is approximately 4 mm of left to right midline shift. Some hypoattenuation is also present in the bilateral cerebellar hemispheres. No acute skull fracture. Air-fluid levels within the paranasal sinuses. Mastoid air cells are clear. IMPRESSION: 1. Large intraparenchymal hematoma in the left parietal lobe has intraventricular extension. 2. Multifocal areas of subcortical hypoattenuation in the bilateral frontal and right parietal lobes may be due to watershed infarcts or toxic metabolic injury. Some of these sites are associated with petechial hemorrhage. 3. Findings are in agreement with the preliminary report. Dictated by: Dictated on workstation # [id number]
--- NOTE | 2021-06-05 06:45 | Diagnostic Imaging Report ---
Indication: COVID pneumonia Portable chest shows normal heart size and vascularity. There are bilateral infiltrates in the lower lobes with the right lower lobe showing slightly more opacification compared to the 06/04/2021 study. There is no effusion or pneumothorax. IMPRESSION: Increasing infiltrates. Report was faxed to Tommie/RN Infection Control by merissa at 6:44AM. Dictated by: Dictated on workstation # [id number]
--- NOTE | 2021-06-05 07:07 | Diagnostic Imaging Report ---
Indication: Intubation Single view of the chest shows interval placement of an ET tube since the earlier study performed on 06/05. Tip is in good position. There has been placement of an OG tube. Tip is in the mid esophagus and could be advanced 20-30 cm. There are persistent basilar infiltrates and atelectasis. There is no effusion or pneumothorax. IMPRESSION: Satisfactory ET tube placement. The OG tube is in the mid esophagus level. Report was called to nurse Smitha [facility] by merissa at 7:05am. Dictated by: Dictated on workstation # [id number]
[2021-06-05 12:50] VITALS: BP 126/92
== END 2021-06-05 12:55 | disposition short-term general hospital (02) ==
LOC: EDUNIT# 03:38 → ER 03:40
DX: I62.9 Nontraumatic intracranial hemorrhage, unspecified (principal); R41.82 Altered mental status, unspecified; I10 Essential (primary) hypertension; U07.1 COVID-19; J44.9 Chronic obstructive pulmonary disease, unspecified; I48.91 Unspecified atrial fibrillation; F32.9 Major depressive disorder, single episode, unspecified; F17.210 Nicotine dependence, cigarettes, uncomplicated; Z86.718 Personal history of other venous thrombosis and embolism; Z79.01 Long term (current) use of anticoagulants; Z79.82 Long term (current) use of aspirin; Z79.899 Other long term (current) drug therapy
CPT/HCPCS: 31500; 36415; 51702; 70450; 71045; 80053; 81000; 82805; 83605; 83615; 83880; 84145; 85025; 85610; 85730; 86141; 87040; 87088; 94640; 94660; 99291; 99292